=== PATIENT | female | born 1975 | race Caucasian/White ===

== ENCOUNTER 2023-04-09 17:34 | Emergency (ER) | payer MEDICARE, MEDICAID, SELFPAY ==
[2023-04-09 17:35] VITALS: BP 151/115; PULSE 85; RESP 16; TEMP 36.4; O2SAT 95; BMI 43.9
[2023-04-09 19:44] VITALS: BP 143/68; PULSE 93; RESP 18; O2SAT 98
[2023-04-09 19:51] LABS: Color, Urine Yellow (Yellow); Glucose, Dipstick Normal (Normal); Ketone-Dipstick 5 mg/dl (Negative); Leukocyte Esterase-Dipstick Negative /ul (Negative); Nitrite-Dipstick Negative (Negative); Occult Blood-Urine 25 /ul (Negative); Protein-Dipstick Negative (Negative); Specific Gravity, Urine 1.025 (1.002-1.030); Urine Bilirubin Dipstick Negative (Negative); Urine Clarity Clear (Clear); Urine Urobilinogen Normal (Normal)
[2023-04-09 19:57] LABS: Bacteria RARE /hpf (None Seen); Mucous, Urine RARE /hpf (<or=2+); Red Blood Cells-Urine 0-5 SEEN /hpf (0-5); Squamous Epithelial Cells - UA 0-5 SEEN /hpf (5-10); White Blood Cells 0-5 SEEN /hpf (0-5)
[2023-04-09 19:59] LABS: Bedside Glucose 104 mg/dL (74-106)
[2023-04-09 20:00] VITALS: BP 129/71; PULSE 92; RESP 18; TEMP 36.6; O2SAT 95
--- NOTE | 2023-04-09 20:00 | EDS_ITS ---
HPI History of Present Illness Chief Complaint: General Illness Detail of Chief Complaint: Frequency and concern for prolapsed uterus Informant: patient Onset/Context/Timing Onset: Days Context: Sudden Onset Timing: Intermittent Quality: Things sticking out of my vagina Location: Vagina Current Severity: Unknown Maximum Severity: Protrudes when she is using the restroom Worsened by: Using the restroom Relieved by: Not applicable Associated Symptoms Associated Symptoms: Frequency Narrative Narrative: Patient is a 48-year-old female who presents with concerns she has a prolapsed uterus. She has a history of rectocele. She is also concerned she may have a cystocele. She states she is recently been dating someone for the past couple of months. She is sexually active. She denies signs or symptoms of . There is a strong family history diabetes. She endorses polyuria and polydipsia. She denies fever, chills night sweats. She denies abdominal pain, nausea, vomit diarrhea. Denies constipation. She denies history of STI. She denies history of endometriosis or ovarian cyst. She is not complaining of pain. Prior similar symptoms: Yes (Rectocele) Recent Illness/Hospitalization: No PFSH PFSH Medical History no medical history no medical history Allergy/AdvReac Type Severity Reaction Status Date / Time metformin Allergy NEEDS Verified 04/09/23 17:35 FOLLOW-UP Surgical History no surgical history no surgical history Social History (Updated 04/09/23 @ 20:[address] Williams Cage MD) Smoking Status: Never smoker details: Social substance use type: does not use ROS ROS ED Constitutional Constitutional ED: Denies chills, fever(s), subjective or sweats Eyes Eyes: Denies blurry vision, change in vision or diplopia ENT ENT ED: Denies ear pain, rhinorrhea or sore throat Gastrointestinal Gastrointestinal: Denies abdominal pain, constipation, diarrhea, melena, nausea or vomiting Genitourinary Genitourinary ED: Reports urinary frequency; Denies dysuria or hematuria Musculoskeletal Musculoskeletal: Denies arthralgias, back pain, myalgias or neck pain Integumentary Denies rash Neurologic Neurologic: Denies headache(s) Psychiatric Psychiatric: Reports anxiety Endocrine Endocrinology: Reports polydipsia and polyuria; Denies cold intolerance or heat intolerance Hematologic/Lymphatic Hematologic/Lymphatic: Reports systems reviewed and no addt'l complaints, except as documented EXAM Physical Exam Const Vital Signs: 04/09/23 17:35 04/09/23 17:34 04/09/23 19:44 Temperature 97.6 F L Temperature Source Temporal Pulse Rate 85 93 Respiratory Rate 16 18 Respiratory Effort Normal Respiratory Pattern Normal Blood Pressure 151/115 H 143/68 H Blood Pressure Mean 127 93 Pulse Ox 95 98 Oxygen Delivery Method Room Air Room Air Positive well nourished and well developed General Appearance ED: well developed and NAD; Negative for pallor HEENT Reports moist mucous membranes HEENT Narrative: Head is atraumatic and normocephalic. Ears normal. Nares patent. Posterior pharynx is normal. Eyes PERRL and EOMs intact bilaterally General Eye ED: Negative for pale conjunctiva or scleral icterus Neck no lymphadenopathy, supple and no JVD Chest Wall inspection of chest normal and palpation of chest normal Resp normal respiratory effort Cardio regular rate, regular rhythm, S1 normal heart sound, S2 normal heart sound and no murmurs GI normal to inspection, nondistended, normoactive bowel sounds, non-tender, non- distended and no masses; Negative for hepatosplenomegaly Narrative: External genitalia is remarkable for condyloma acuminata. Vaginal mucosa appears normal. Cervical mucosa is normal. There is no discharge or bleeding. There is evidence of a rectocele. There is no evidence of a cystocele. There is no evidence of prolapse uterus. Back/Spine no CVA tenderness Extremity normal to inspection General Extremety ED: Negative for edema or tenderness General Extremity: Negative for edema Neuro oriented x3, CN's II-XII intact bilaterally and no sensory deficits noted Sensorium / Orientation: alert Psych mental status grossly normal Skin no rashes or lesions noted, no wounds and skin turgor normal General Skin Exam: Negative for jaundice or pallor MDM MDM MDM Narrative Medical decision making narrative: Differential diagnosis is rectocele, cystocele, prolapsed uterus. Will assess for diabetes since her strong family history and she is reporting increased urination with polyuria polydipsia. Patient has evidence of condyloma acuminata. She is to follow-up with her [facility] Dr. Stephanie Serrato. She also needs to follow-up with her regarding the rectocele. There is no evidence of a prolapsed uterus or cystocele. Lab Data Attestation: I reviewed the patient's lab results. Lab results narrative: UA reveals no Insa infection and glucose is 104. Labs: Laboratory Results - last 24 hr 04/09/23 04/09/23 19:40 19:41 Urine Color Yellow Urine Clarity Clear Urine pH 5.0 Ur Specific [employer] [place] 1.025 Urine Protein Negative Urine Glucose (UA) Normal Urine Ketones 5 H Urine Occult Blood 25 H Urine Nitrite Negative Urine Bilirubin Negative Urine Urobilinogen Normal Ur Leukocyte Esterase Negative Urine RBC 0-5 SEEN Urine WBC 0-5 SEEN Ur Squamous Epith Cells 0-5 SEEN Urine Bacteria RARE Urine Mucus RARE POC Glucose 104 Discharge Plan Triage Chief Complaint: General Illness ED Provider: Williams Cage Dx/Rx/DC Orders Clinical Impression: Rectocele, Frequency of micturition, Condyloma acuminatum Instructions: POP Surg Rectocele Enterocele, ED Genital Warts Primary Care Provider: Yamileth Estevez NP Referrals: Stephanie Serrato NP, [facility] [Non-Staff] - 1 Week Yamileth Estevez NP, [facility] [Primary Care Provider] - Disposition Disposition: Home, Self Care
== END 2023-04-09 20:13 | disposition home or self-care (01) ==
PROVIDERS: Emergency Provider Emergency Medicine; PCP Nurse Practitioner Family; Visit Provider Emergency Medicine
DX: A63.0 Anogenital (venereal) warts (principal); R35.0 Frequency of micturition; F41.9 Anxiety disorder, unspecified; R63.1 Polydipsia; N81.6 Rectocele
CPT/HCPCS: 81001; 82962; 99282

== ENCOUNTER 2023-08-09 11:31 | Emergency (ER) | payer MEDICARE, MEDICAID, SELFPAY ==
[2023-08-09 11:32] VITALS: BP 142/103; PULSE 103; PULSE 94; RESP 17; RESP 21; TEMP 35.8; O2SAT 94; O2SAT 95; BMI 44.1
--- NOTE | 2023-08-09 12:19 | EDS_ITS ---
HPI History of Present Illness Chief Complaint: Chest Pain Informant: patient and EMS Narrative Narrative: Patient states she was at rest with a friend today sitting outside at a table when she started only started having discomfort in her left chest without radia tion. She states it is kind of a dull ache, it is nonpleuritic, it is not associated with any other symptoms but she was concerned because she has never had this before and she called 911 right away to come to the ER. EMS is EKG was unremarkable. She does not have any history of heart problems except for aortic stenosis, she states she has asthma but does not feel like this is wheezing/asthma. She denies any history of DVT or PE, recent immobilization, long travel, hospitalization, or surgery. She is a smoker but does not take female hormone supplementation for any reason. PE Risk Factors: Negative for Recent Travel/Surgery, Recent Immobilization, Prior DVT or PE, Cancer or OCP + Smoking + >/=35 PFSH PFSH Medical History (Updated 08/09/23 @ 15:[address] Dom Hall MD) Asthma Hypertension Migraine Bulimia Lesion of spleen Endometriosis Heart murmur Aortic stenosis Acid reflux Depression Fibromyalgia Home Medications ?Medication ?Instructions ?Recorded ?Last Taken ?Type albuterol sulfate 90 mcg/actuation 2 puff inhalation Q4H PRN PRN 08/09/23 Unknown History aerosol inhaler wheezing cholecalciferol (vitamin D3) 25 50 mcg PO DAILY 08/09/23 Unknown History mcg (1,000 unit) tablet (Vitamin D3) clobetasol 0.05 % topical ointment 1 applic topical BID 08/09/23 Unknown History duloxetine 60 mg capsule,delayed 60 mg PO DAILY 08/09/23 Unknown History release (Cymbalta) esomeprazole magnesium 40 mg 40 mg PO BID 08/09/23 Unknown History capsule,delayed release (Nexium) fluoxetine 40 mg capsule 80 mg PO DAILY 08/09/23 Unknown History fluticasone furoate 200 1 inh inhalation DAILY 08/09/23 Unknown History mcg-vilanterol 25 mcg/dose inhalation powder hydroxyzine pamoate 25 mg capsule 25 mg PO TID PRN PRN anxiety 08/09/23 Unknown History lisinopril 10 mg tablet 10 mg PO DAILY 08/09/23 Unknown History loratadine 10 mg tablet 10 mg PO DAILY 08/09/23 Unknown History (Allerclear) meloxicam 15 mg tablet 15 mg PO DAILY 08/09/23 Unknown History pregabalin 75 mg capsule 75 mg PO BID 08/09/23 Unknown History propranolol 20 mg tablet 20 mg PO BID 08/09/23 Unknown History pseudoephedrine HCl 120 mg 120 mg PO BID 08/09/23 Unknown History tablet,extended release terbinafine HCl 250 mg tablet 250 mg PO DAILY 08/09/23 Unknown History Allergy/AdvReac Type Severity Reaction Status Date / Time metformin Allergy NEEDS Verified 08/09/23 11:32 FOLLOW-UP Social History Smoking Status: Current every day smoker tobacco type: cigarettes details: Social substance use type: does not use ROS ROS ED Constitutional Constitutional ED: Denies chills or fever(s) Eyes Eyes: Denies change in vision or diplopia ENT ENT ED: Denies rhinorrhea or sore throat Cardiovascular Cardiovascular: Reports as per HPI and chest pain; Denies palpitations Respiratory/Chest Respiratory/Chest: Reports other Details: dyspnea no worse than usual w/ this discomfort ; Denies cough Gastrointestinal Gastrointestinal: Denies abdominal pain, diarrhea, nausea or vomiting Genitourinary Genitourinary ED: Denies dysuria or hematuria Musculoskeletal Musculoskeletal: Denies back pain or neck pain Integumentary Denies abscess or rash Neurologic Neurologic: Denies headache(s), paresthesias or weakness Psychiatric Psychiatric: Denies suicidal thoughts EXAM Physical Exam Const Vital Signs: 08/09/23 11:32 08/09/23 11:32 08/09/23 11:32 Temperature 96.5 F L Temperature Source Temporal Pulse Rate 103 H 94 Respiratory Rate 17 21 H Respiratory Effort Short of Breath Blood Pressure 142/103 H 142/103 H Blood Pressure Mean 116 116 Pulse Ox 94 95 Oxygen Delivery Method Room Air Room Air 08/09/23 12:31 08/09/23 13:00 08/09/23 14:00 Temperature Temperature Source Pulse Rate 102 H 103 H 100 Respiratory Rate 21 H 23 H 25 H Respiratory Effort Blood Pressure 145/100 H 143/95 H 145/114 H Blood Pressure Mean 115 111 124 Pulse Ox 96 97 97 Oxygen Delivery Method Room Air Room Air 08/09/23 15:00 Temperature Temperature Source Pulse Rate 100 Respiratory Rate 18 Respiratory Effort Blood Pressure 139/102 H Blood Pressure Mean 114 Pulse Ox 97 Oxygen Delivery Method Room Air Positive well nourished, well developed and obese General Appearance ED: well developed and NAD Nutritional Appearance: obese HEENT Reports moist mucous membranes normocephalic and atraumatic Eyes PERRL and EOMs intact bilaterally Neck full ROM and supple Chest Wall inspection of chest normal and palpation of chest normal Resp normal respiratory effort and clear to auscultation bilaterally Cardio regular rate and regular rhythm Heart Sounds: murmur systolic III/ crescendo-decrescendo (harsh) left sternal border Peripheral Pulses: pulses 2+ throughout GI non-tender and non-distended Auscultation: normoactive bowel sounds Palpation: soft Back/Spine no CVA tenderness General Back: other FROM Extremity normal to inspection General Extremety ED: Negative for edema, pulses abnormal or tenderness General Extremity: Negative for edema or pulses abnormal Neuro oriented x3, CN's II-XII intact bilaterally and no sensory deficits noted Sensorium / Orientation: awake and alert Motor Exam: strength 5/5 throughout Skin no rashes or lesions noted and no wounds Heart Score History: Slightly/Non-Suspicious ECG: Normal Age: >45 - <65 years Risk Factors: 1 or 2 Risk Factors Troponin: </= Normal Limit Score: 2 MDM MDM MDM Narrative Medical decision making narrative: Patient takes a deep breath and does not have significant pain but when she coughs it hurts worse. Therefore in addition to the regular usual cardiac workup that shows initial negative cardiac enzymes, I added a D-dimer, that is negative, she had a mild resting tachycardia prior to that. That rules out pulmonary embolus. Initially GI cocktail and Levsin was given, to see if that would help if this was esophagus spasm or reflux, since she states she has a history of reflux that is significant, did not help any, so then she was given Toradol and we repeated her troponin. It is the same number for a delta of 0, she has a low heart score, I do not think she needs to be admitted or have further emergent provocative testing. Her EKG is normal. Chest x-ray 2 views of mitral rotation are normal as well showing no pneumothorax. Patient wants to go home I am fine with that, she complained of a lot of urinary issues and wanting a catheter. We BladderScan her and her only 24 cc so I do not recommend a catheter. She said that she has had catheters in the past and has chronic bladder symptoms and sees Dr. Santos I recommend following back up with her, we did urinalysis shows no signs of acute infection. Lab Data Attestation: I reviewed the patient's lab results. Labs: Laboratory Results - last 24 hr 08/09/23 08/09/23 08/09/23 11:14 11:19 13:28 WBC 10.9 RBC 4.58 Hgb 13.8 Hct 42.0 MCV 91.7 MCH 30.1 MCHC 32.9 RDW Std Deviation 45.0 H RDW Coeff of Roger 13.4 Plt Count 494 H MPV 9.9 Immature Gran % (Auto) 0.500 Neut % (Auto) 67.5 Lymph % (Auto) 25.3 Mckenzie % (Auto) 5.3 Eos % (Auto) 1.0 Baso % (Auto) 0.4 Absolute Neuts (auto) 7.4 Absolute Lymphs (auto) 2.77 Nucleated RBC % 0 D-Dimer Quant (PE/DVT) 0.42 Sodium 134 L Potassium 3.4 L Chloride 102 Carbon Dioxide 24.0 Anion Gap 8 BUN 13 Creatinine 0.88 Estim Creat Clear Calc 100.15 Est GFR (MDRD) Af Amer 88 Est GFR (MDRD) Non-Af 73 BUN/Creatinine Ratio 14.7 Glucose 118 H Calcium 8.9 Troponin I High Sens 14 Urine Color Yellow Urine Clarity Sl. Cloudy Urine pH 6.5 Ur Specific [place] 1.010 Urine Protein Negative Urine Glucose (UA) Normal Urine Ketones Negative Urine Occult Blood 25 H Urine Nitrite Negative Urine Bilirubin Negative Urine Urobilinogen Normal Ur Leukocyte Esterase Negative Urine RBC 0-5 SEEN Urine WBC 0 SEEN Ur Squamous Epith Cells 0-5 SEEN Urine Bacteria 0 SEEN Urine Mucus 0 SEEN 08/09/23 14:35 WBC RBC Hgb Hct MCV MCH MCHC RDW Std Deviation RDW Coeff of Roger Plt Count MPV Immature Gran % (Auto) Neut % (Auto) Lymph % (Auto) Mckenzie % (Auto) Eos % (Auto) Baso % (Auto) Absolute Neuts (auto) Absolute Lymphs (auto) Nucleated RBC % D-Dimer Quant (PE/DVT) Sodium Potassium Chloride Carbon Dioxide Anion Gap BUN Creatinine Estim Creat Clear Calc Est GFR (MDRD) Af Amer Est GFR (MDRD) Non-Af BUN/Creatinine Ratio Glucose Calcium Troponin I High Sens 14 Urine Color Urine Clarity Urine pH Ur Specific [place] Urine Protein Urine Glucose (UA) Urine Ketones Urine Occult Blood Urine Nitrite Urine Bilirubin Urine Urobilinogen Ur Leukocyte Esterase Urine RBC Urine WBC Ur Squamous Epith Cells Urine Bacteria Urine Mucus Radiography Diagnostic Testing: Clinical Impression(s) from Imaging Studies Chest X-Ray 08/09/23 12:35 IMPRESSION: Hyperinflation. The lungs are clear. Electronically Signed: Jarod Kim MD at 12:50 EDT , Rhythm Strip Rhythm Strip: Sinus Rhythm Rate: 95 Ectopy: None EKG Initial EKG: Attestation: I personally reviewed and interpreted this EKG as follows: Interpretation: Sinus Rhythm and No Acute Injury Pattern Discharge Plan Triage Chief Complaint: Chest Pain ED Provider: Dom Hall Dx/Rx/DC Orders Clinical Impression: Left-sided chest pain, Urinary urgency Instructions: ED Chest Pain, Noncardiac Prescriptions: No Action fluoxetine 40 mg capsule 80 mg PO DAILY lisinopril 10 mg tablet 10 mg PO DAILY propranolol 20 mg tablet 20 mg PO BID pregabalin 75 mg capsule 75 mg PO BID duloxetine [Cymbalta] 60 mg capsule,delayed release(DR/EC) 60 mg PO DAILY esomeprazole magnesium [Nexium] 40 mg capsule,delayed release(DR/EC) 40 mg PO BID clobetasol 0.05 % ointment 1 applic topical BID albuterol sulfate 90 mcg/actuation HFA aerosol inhaler 2 puff inhalation Q4H PRN PRN (Reason: wheezing) cholecalciferol (vitamin D3) [Vitamin D3] 25 mcg (1,000 unit) tablet 50 mcg PO DAILY loratadine [Allerclear] 10 mg tablet 10 mg PO DAILY meloxicam 15 mg tablet 15 mg PO DAILY pseudoephedrine HCl 120 mg tablet extended release 120 mg PO BID terbinafine HCl 250 mg tablet 250 mg PO DAILY hydroxyzine pamoate 25 mg capsule 25 mg PO TID PRN PRN (Reason: anxiety) fluticasone furoate-vilanterol 200-25 mcg/dose blister with device 1 inh inhalation DAILY Primary Care Provider: Yamileth Estevez NP Referrals: Rahel Santos MD [Med Staff - Active Staff] - Yamileth Estevez NP, [facility] [Primary Care Provider] - 3-5 Days if not improving Print Language: Faroese Disposition Disposition: Home, Self Care
--- NOTE | 2023-08-09 12:30 | EKG12_ITS ---
Test Reason : CHEST PAIN Blood Pressure : / mmHG Vent. Rate : 094 BPM Atrial Rate : 094 BPM P-R Int : 144 ms QRS Dur : 086 ms QT Int : 386 ms P-R-T Axes : 046 011 071 degrees QTc Int : 482 ms Normal sinus rhythm Abnormal ECG Confirmed by YOSSI HUTCHINSON, GÉNEISS ([id number]), legal editor VERÓNICA LARIOS ([id number]) on 08/13/2023 1:31:37 PM Referred By: Confirmed By:GÉNESIS SY MD
[2023-08-09 12:31] VITALS: BP 145/100; PULSE 102; RESP 21; O2SAT 96
--- NOTE | 2023-08-09 12:35 | RAD_ITS ---
STUDY: X-RAY CHEST REASON FOR EXAM: Female, 48 years old. L chest pain TECHNIQUE: PA and lateral views of the chest. COMPARISON: None. FINDINGS: EKG electrodes are seen. Hyperinflation. The lungs are clear. There is no demonstrated pleural abnormality. Normal size heart. Normal mediastinum and maxwell. Normal visualized pulmonary arteries. Normal visualized aortic arch and descending thoracic aorta. Normal visualized thoracic spine. Normal visualized ribs, clavicles, and shoulders. There is no demonstrated abnormality of the visualized soft tissue structures of the upper abdomen. RAD/Chest PA and Lateral IMPRESSION: Hyperinflation. The lungs are clear. Electronically Signed: Jarod Kim MD at 12:50 EDT ,
[2023-08-09 12:41] LABS: Absolute Lymphocyte Count 2.77 X10^3/uL (0.83-4.51); Absolute Neutrophil Count 7.4 X10^3/uL (2.0-7.7); Basophil# 0.04 X10^3/uL; Basophil% 0.4 % (0-1); Eosinophil# 0.11 X10^3/uL; Hemoglobin 13.8 g/dL (12.0-15.0); Lymphocyte # 2.77 X10^3/ul (0.83-4.51); Lymphocyte % 25.3 % (19-41); Mean Corp Hgb Conc 32.9 g/dL (32-36); Mean Corpuscular Hgb 30.1 pg (27.0-32.0); Mean Corpuscular Volume 91.7 fL (81-99); Mean Platelet Vol. 9.9 fl (6.2-12.0); Monocyte# 0.58 X10^3/uL; Monocyte% 5.3 % (0-10); NRBC Flagged by Analyzer 0 % (0-5); Neutrophil # 7.37 X10^3/uL (2.7-7.7); Neutrophil % 67.5 % (47-70); Platelet Count 494 K/mm3 (150-450); RBC Distribution Width CV 13.4 % (11.6-14.6); Red Blood Count 4.58 M/mm3 (4.2-5.4); White Blood Count 10.9 K/mm3 (4.4-11.0)
[2023-08-09 12:57] LABS: Anion Gap 8 (5-15); BUN 13 mg/dL (7-18); BUN/Creat Ratio 14.7 RATIO (10-20); Calcium,Total 8.9 mg/dL (8.5-10.1); Chloride 102 mmol/L (98-107); Creatinine, Serum 0.88 mg/dL (0.55-1.02); EST Glomerular Filtration Rate 73 mL/min (>60); Est Glom Filt Rate - Afr Amer 88 mL/min (>60); Estimated Creatinine Clearance 100.15 ml/min; Glucose 118 mg/dL (74-106); Potassium 3.4 mmol/L (3.5-5.1); Sodium Level 134 mmol/L (136-145); Troponin-I HS (w/2H Reflex) 14 pg/mL (3.0-54.0)
[2023-08-09 13:00] VITALS: BP 143/95; PULSE 103; RESP 23; O2SAT 97
[2023-08-09] MEDS: Mag Hydrox/Al Hydrox/Simeth 30 ML UDC PO (13:02)
[2023-08-09] MEDS: Lidocaine 2% Viscous15 ML UDC 15 ML PO (13:02)
[2023-08-09] MEDS: Hyoscyamine Sulfate 0.125 MG Tablet 0.25 MG SL (13:02)
[2023-08-09 13:33] LABS: Bacteria 0 SEEN /hpf (None Seen); Mucous, Urine 0 SEEN /hpf (<or=2+); White Blood Cells 0 SEEN /hpf (0-5)
[2023-08-09 13:34] LABS: Color, Urine Yellow (Yellow); Glucose, Dipstick Normal (Normal); Ketone-Dipstick Negative (Negative); Leukocyte Esterase-Dipstick Negative /ul (Negative); Nitrite-Dipstick Negative (Negative); Occult Blood-Urine 25 /ul (Negative); Protein-Dipstick Negative (Negative); Urine Bilirubin Dipstick Negative (Negative); Urine Clarity Sl. Cloudy (Clear); Urine Urobilinogen Normal (Normal); Urine pH 6.5 (5.0 - 8.0)
[2023-08-09 13:40] LABS: Red Blood Cells-Urine 0-5 SEEN /hpf (0-5); Squamous Epithelial Cells - UA 0-5 SEEN /hpf (5-10)
[2023-08-09 14:00] VITALS: BP 145/114; PULSE 100; RESP 25; O2SAT 97
[2023-08-09 14:13] LABS: D-Dimer Quantitative (DVT/PE) 0.42 FEU/ug/m (0.27-0.49)
[2023-08-09 14:36] LABS: Reflex Troponin-HS? (from REC) Y
[2023-08-09] MEDS: Ketorolac 15 MG/ML Vial IV (14:56)
[2023-08-09 15:00] VITALS: BP 139/102; PULSE 100; RESP 18; O2SAT 97
[2023-08-09 15:06] LABS: Troponin-I HS 14 pg/mL (3.0-54.0)
[2023-08-09 15:32] VITALS: BP 135/100; PULSE 84; RESP 16; TEMP 36.3; O2SAT 98
== END 2023-08-09 15:38 | disposition home or self-care (01) ==
PROVIDERS: Emergency Provider Emergency Medicine; PCP Nurse Practitioner Family; Visit Provider Emergency Medicine
DX: R07.9 Chest pain, unspecified (principal); R39.15 Urgency of urination; F17.210 Nicotine dependence, cigarettes, uncomplicated; I10 Essential (primary) hypertension; J45.909 Unspecified asthma, uncomplicated; F32.A Depression, unspecified; K21.9 Gastro-esophageal reflux disease without esophagitis; Z79.899 Other long term (current) drug therapy; Z79.51 Long term (current) use of inhaled steroids
CPT/HCPCS: 71046; 80048; 81001; 84484; 85025; 85379; 93005; 96374; 99285

== ENCOUNTER 2024-06-19 18:52 | Emergency (ER) | payer MEDICARE, MEDICAID, SELFPAY ==
[2024-06-19 18:53] VITALS: BP 178/112; PULSE 80; RESP 18; TEMP 36.9; O2SAT 95; BMI 46.3
--- NOTE | 2024-06-19 18:58 | EKG12_ITS ---
Test Reason : DYSRHYTHMIA Blood Pressure : */* mmHG Vent. Rate : 84 BPM Atrial Rate : 84 BPM P-R Int : 146 ms QRS Dur : 90 ms QT Int : 392 ms P-R-T Axes : 45 27 76 degrees QTcB Int : 463 ms Normal sinus rhythm Normal ECG Confirmed by GÉNESIS SY MD [id number]), editor publications ZENIA KEANE ([id number]) on 06/20/2024 8:20:12 AM Referred By: Emil Quan Confirmed By: GÉNESIS SY MD
[2024-06-19 19:33] VITALS: O2SAT 98
--- NOTE | 2024-06-19 19:33 | RAD_ITS ---
PROCEDURE: CHEST PA AND LATERAL 06/19/2024 REASON FOR EXAM: CHEST PAIN TECHNIQUE: Frontal and lateral views of the chest. COMPARISON: 08/09/2019 FINDINGS: Hardware: None Heart: Heart size is mildly enlarged. Mediastinum: The mediastinal contour is stable. Lungs: Mild bibasilar atelectasis. No focal consolidation. No pneumothorax. No pleural effusion. Mild interstitial thickening Bones: The bones are unremarkable. RAD/Chest PA and Lateral IMPRESSION: Findings suggestive of vascular congestion. [facility]
[2024-06-19 19:48] LABS: Absolute Lymphocyte Count 2.81 X10^3/uL (0.83-4.51); Absolute Neutrophil Count 10.4 X10^3/uL (2.0-7.7); Basophil# 0.05 X10^3/uL; Basophil% 0.4 % (0-1); Eosinophil# 0.17 X10^3/uL; Eosinophils% 1.2 % (0-5); Hematocrit 39.7 % (37-47); Hemoglobin 13.3 g/dL (12.0-15.0); Lymphocyte # 2.81 X10^3/ul (0.83-4.51); Lymphocyte % 19.7 % (19-41); Mean Corp Hgb Conc 33.5 g/dL (32-36); Mean Corpuscular Hgb 30.3 pg (27.0-32.0); Mean Corpuscular Volume 90.4 fL (81-99); Mean Platelet Vol. 9.7 fl (6.2-12.0); Monocyte% 4.9 % (0-10); NRBC Flagged by Analyzer 0 % (0-5); Neutrophil % 73.1 % (47-70); Platelet Count 487 K/mm3 (150-450); RBC Distribution Width CV 13.5 % (11.6-14.6); RBC Distribution Width SD 44.5 fl (35.1-43.9); Red Blood Count 4.39 M/mm3 (4.2-5.4); White Blood Count 14.2 K/mm3 (4.4-11.0)
--- NOTE | 2024-06-19 19:51 | ED.VIS.CHEST ---
HPI <BILLIE Edgar - Last Filed: 06/19/24 22:11> History of Present Illness Chief Complaint: Chest Pain Narrative Narrative: Patient presenting today with pain/tightness below her breasts bilaterally that has been ongoing over the last several days. She reports a chronic productive cough due to her smoking history and history of asthma. She reports that she has been taking doxycycline over the last week or so due to a URI. She reports that she has been treated with multiple different antibiotics over the last several months for URIs. She takes Lasix as needed for bilateral lower extremity edema. Over the past 3 days she has been taking 40 mg Lasix daily. She has had minimal improvement in her leg edema. She reports that she recently had a echocardiogram, she denies being diagnosed with CHF. She has a PMH of HTN, tobacco abuse, asthma, depression. PE Risk Factors: Negative for Recent Travel/Surgery, Recent Immobilization, Prior DVT or PE or Cancer PFSH <BILLIE Edgar - Last Filed: 06/19/24 22:11> [facility] Medical History Asthma Hypertension Migraine Bulimia Lesion of spleen Endometriosis Heart murmur Aortic stenosis Acid reflux Depression Fibromyalgia Home Medications ?Medication ?Instructions ?Recorded ?Last Taken ?Type albuterol sulfate 90 mcg/actuation 2 puff inhalation Q4H PRN PRN 08/09/23 Unknown History aerosol inhaler wheezing cholecalciferol (vitamin D3) 25 50 mcg PO DAILY 08/09/23 Unknown History mcg (1,000 unit) tablet (Vitamin D3) clobetasol 0.05 % topical ointment 1 applic topical BID 08/09/23 Unknown History duloxetine 60 mg capsule,delayed 60 mg PO DAILY 08/09/23 Unknown History release (Cymbalta) esomeprazole magnesium 40 mg 40 mg PO BID 08/09/23 Unknown History capsule,delayed release (Nexium) fluoxetine 40 mg capsule 80 mg PO DAILY 08/09/23 Unknown History fluticasone furoate 200 1 inh inhalation DAILY 08/09/23 Unknown History mcg-vilanterol 25 mcg/dose inhalation powder hydroxyzine pamoate 25 mg capsule 25 mg PO TID PRN PRN anxiety 08/09/23 Unknown History lisinopril 10 mg tablet 10 mg PO DAILY 08/09/23 Unknown History loratadine 10 mg tablet 10 mg PO DAILY 08/09/23 Unknown History (Dewayne) meloxicam 15 mg tablet 15 mg PO DAILY 08/09/23 Unknown History pregabalin 75 mg capsule 75 mg PO BID 08/09/23 Unknown History propranolol 20 mg tablet 20 mg PO BID 08/09/23 Unknown History pseudoephedrine HCl 120 mg 120 mg PO BID 08/09/23 Unknown History tablet,extended release terbinafine HCl 250 mg tablet 250 mg PO DAILY 08/09/23 Unknown History prednisone 20 mg tablet 40 mg (2 x 20 mg) PO DAILY 5 days 06/19/24 Unknown Rx #10 tabs Allergy/AdvReac Type Severity Reaction Status Date / Time metformin AdvReac Severe Other Verified 06/19/24 18:54 Social History housing: house Smoking Status: Current every day smoker tobacco type: cigarettes details: Social substance use type: does not use ROS <BILLIE Edgar - Last Filed: 06/19/24 22:11> ROS ED Constitutional Constitutional ED: Denies chills or fever(s) Cardiovascular Cardiovascular: Reports chest pain Respiratory/Chest Respiratory/Chest: Reports cough, dyspnea and dyspnea on exertion; Denies wheezing Gastrointestinal Gastrointestinal: Denies abdominal pain, nausea or vomiting Musculoskeletal Musculoskeletal: Denies arthralgias or myalgias Integumentary Denies rash Neurologic Neurologic: Denies weakness EXAM <BILLIE Edgar - Last Filed: 06/19/24 22:11> Physical Exam Const Vital Signs: 06/19/24 18:53 06/19/24 19:33 06/19/24 19:33 Temperature 98.5 F Temperature Source Oral Pulse Rate 80 Respiratory Rate 18 Respiratory Effort Normal Non-Labored Respiratory Depth Respiratory Pattern Blood Pressure 178/112 H Blood Pressure Mean 134 Pulse Ox 95 98 Oxygen Delivery Method Room Air Room Air 06/19/24 19:33 06/19/24 19:53 06/19/24 20:00 Temperature Temperature Source Pulse Rate 84 85 Respiratory Rate 12 13 Respiratory Effort Normal Non-Labored Respiratory Depth Normal Respiratory Pattern Normal Blood Pressure 154/107 H 150/100 H Blood Pressure Mean 122 116 Pulse Ox 98 96 Oxygen Delivery Method Room Air 06/19/24 21:00 06/19/24 22:36 Temperature 98 F Temperature Source Pulse Rate 68 Respiratory Rate 15 Respiratory Effort Respiratory Depth Respiratory Pattern Blood Pressure 157/89 H 150/70 H Blood Pressure Mean 111 96 Pulse Ox 100 Oxygen Delivery Method Positive well nourished, well developed and no apparent distress General Appearance ED: well developed HEENT Reports normocephalic and head/scalp atraumatic Mouth ED: Yes moist mucous membranes normal Eyes PERRL and EOMs intact bilaterally Neck full ROM and supple Chest Wall inspection of chest normal Resp normal respiratory effort and clear to auscultation bilaterally Cardio regular rate and regular rhythm GI soft to palpation, non-tender, non-distended and no masses Back/Spine normal ROM and normal to inspection Extremity normal to inspection and full ROM Extremity Narrative: Bilateral lower extremity nonpitting edema to the feet and ankles Neuro oriented x3, CN's II-XII intact bilaterally, moves all extremities, no focal motor deficits and no sensory deficits noted Sensorium / Orientation: awake and alert Psych mental status grossly normal and thought process normal Skin no rashes or lesions noted and no wounds <Dr. Emil Quan DO - Last Filed: 06/20/24 02:04> Physical Exam Const Vital Signs: 06/19/24 18:53 06/19/24 19:33 06/19/24 19:33 Temperature 98.5 F Temperature Source Oral Pulse Rate 80 Respiratory Rate 18 Respiratory Effort Normal Non-Labored Respiratory Depth Respiratory Pattern Blood Pressure 178/112 H Blood Pressure Mean 134 Pulse Ox 95 98 Oxygen Delivery Method Room Air Room Air 06/19/24 19:33 06/19/24 19:53 06/19/24 20:00 Temperature Temperature Source Pulse Rate 84 85 Respiratory Rate 12 13 Respiratory Effort Normal Non-Labored Respiratory Depth Normal Respiratory Pattern Normal Blood Pressure 154/107 H 150/100 H Blood Pressure Mean 122 116 Pulse Ox 98 96 Oxygen Delivery Method Room Air 06/19/24 21:00 06/19/24 22:36 Temperature 98 F Temperature Source Pulse Rate 68 Respiratory Rate 15 Respiratory Effort Respiratory Depth Respiratory Pattern Blood Pressure 157/89 H 150/70 H Blood Pressure Mean 111 96 Pulse Ox 100 Oxygen Delivery Method MDM <Merle Olson PA - Last Filed: 06/19/24 22:11> [facility] MDM Narrative Medical decision making narrative: Patient presenting today due to concerns for pain across her lower chest, mild dyspnea with exertion, and lower extremity edema that has been ongoing for days. She has a chronic cough due to her smoking history of asthma. She will be given albuterol and DuoNeb breathing treatments. Cardiac labs will be obtained. CBC shows a leukocytosis at 14.2, creatinine mildly elevated at 1.26, this is slightly increased from previous labs when reviewing her records on her MyChart when her creatinine was 0.73 in March, initial troponin is 8, delta pending. BNP WNL, D-dimer WNL. Low suspicion for PE. Chest x-ray shows findings suggestive of vascular congestion. I also reviewed her outpatient echocardiogram from 12/2023, this showed normal left ventricular systolic function, moderate left ventricular hypertrophy. She did request to be given a course of prednisone, she reports that this will help with her chest tightness and dyspnea due to her cough and asthma history. She has been on doxycycline, I do not feel additional antibiotics are indicated, chest x-ray did not show evidence of infiltrate. Disposition pending. Lab Data Attestation: I reviewed the patient's lab results. Labs: Laboratory Results - last 24 hr 06/19/24 06/19/24 06/19/24 19:09 19:29 21:20 WBC 14.2 H RBC 4.39 Hgb 13.3 Hct 39.7 MCV 90.4 MCH 30.3 MCHC 33.5 RDW Std Deviation 44.5 H RDW Coeff of Roger 13.5 Plt Count 487 H MPV 9.7 Immature Gran % (Auto) 0.700 Neut % (Auto) 73.1 H Lymph % (Auto) 19.7 [place] % (Auto) 4.9 Eos % (Auto) 1.2 Baso % (Auto) 0.4 Absolute Neuts (auto) 10.4 H Absolute Lymphs (auto) 2.81 Nucleated RBC % 0 D-Dimer Quant (PE/DVT) 0.40 Sodium 136 Potassium 5.0 Chloride 102 Carbon Dioxide 21.6 Anion Gap 12 BUN 18 Creatinine 1.26 H Estim Creat Clear Calc 71.28 Est GFR (MDRD) Non-Af 53 L BUN/Creatinine Ratio 14.2 Glucose 111 H Calcium 8.9 Troponin T High Sens 8 Troponin T Hi Sens 2 Hr 10 NT pro BNP II 331 Radiography X-Ray: Read by ED Physician Diagnostic Testing: Clinical Impression(s) from Imaging Studies Chest X-Ray 06/19/24 19:33 IMPRESSION: Findings suggestive of vascular congestion. Reading Location: [facility] EKG Initial EKG: Comments: 84 bpm, normal sinus rhythm, no ST elevation, interpreted by the ED physician <Dr. Emil Quan, DO - Last Filed: 06/20/24 02:04> [facility] Narrative Medical decision making narrative: Patient presenting today due to concerns for pain across her lower chest, mild dyspnea with exertion, and lower extremity edema that has been ongoing for days. She has a chronic cough due to her smoking history of asthma. She will be given albuterol and DuoNeb breathing treatments. Cardiac labs will be obtained. CBC shows a leukocytosis at 14.2, creatinine mildly elevated at 1.26, this is slightly increased from previous labs when reviewing her records on her MyChart when her creatinine was 0.73 in March, initial troponin is 8, delta pending. BNP WNL, D-dimer WNL. Low suspicion for PE. Chest x-ray shows findings suggestive of vascular congestion. I also reviewed her outpatient echocardiogram from 12/2023, this showed normal left ventricular systolic function, moderate left ventricular hypertrophy. She did request to be given a course of prednisone, she reports that this will help with her chest tightness and dyspnea due to her cough and asthma history. She has been on doxycycline, I do not feel additional antibiotics are indicated, chest x-ray did not show evidence of infiltrate. Disposition pending. Supervisory Physician Note Patient was seen and examined with the Advanced Practice Provider. Nursing notes and vital signs have been reviewed. Pertinent old records have been reviewed. I agree with the essential elements of the JAVIER's history, physical exam, assessment, and plan. The differential diagnosis and management options were discussed with the JAVIER. I participated in determining and agree with the management, procedures, final impression and disposition as documented. See changes noted by me. Please see addendum or separate note for any additional details. 49-year-old female with past medical history of HTN, aortic stenosis, tobacco abuse, asthma, history of peripheral edema presents for evaluation of chest tightness and peripheral edema. Chest tightness is bilateral under the breast ongoing for several days. Has a chronic cough but currently being treated with doxycycline for URI/bronchitis. Patient endorses increasing bilateral peripheral edema for the past 3 days. She states she is supposed to take 20 mg of Lasix daily when her peripheral edema increases. States that she has been taking 40 mg daily, 20 mg twice daily instead. She states she read on the Internet that this is okay. She denies a diagnosis of CHF. Gen: A&O x3, NAD Head: Normocephalic, atraumatic Eyes: No sclera icterus, conjunctiva clear ENT: Moist mucous membranes Neck: Trachea midline, No JVD CV: RRR, no murmurs, bilateral nonpitting peripheral edema to the feet and ankles Resp: Lungs CTA BL, no w/r/c GI: Large body habitus, abd soft, non-distended, non-tender, no r/r/g Musc: Full ROM, no deformity Skin: Warm, dry Neuro: Alert, oriented, grossly intact, sensation intact Psych: Cooperative, appropriate mood and affect Differential diagnosis includes but is not limited to symptomatic bronchitis, URI, mild asthma exacerbation, CHF, low suspicion for ACS or PE. Breathing treatments ordered. Cardiac/respiratory workup ordered. EKG reviewed. Chest x-ray shows increased vascular markings concern for congestion, no effusion, pneumonia, pneumothorax, cardiomegaly. Radiology in agreement. CBC with mild leukocytosis of 14.2. Patient currently on doxycycline for bronchitis. May be reason for her leukocytosis. No anemia. History of thrombocytosis. D-dimer unremarkable. BMP unremarkable except for renal insufficiency with creatinine of 1.26. Previous labs are from 2023. Will try to obtain outside records. BNP unremarkable. Troponin unremarkable x 2. Reviewing the records from [facility], patient's creatinine was 0.73 in March. Concern is that the renal insufficiency could be caused from her doubling of her Lasix. Despite her nonpitting bilateral peripheral edema and mild vascular congestion, patient is not in CHF exacerbation. She has no history of heart failure and her previous echocardiogram from 01/12 showed normal left ventricular systolic function. Her vitals are stable other than some mild hypertension. She is not requiring oxygen. On reevaluation, she states that she feels that her chest tightness has improved with breathing treatments. She is requesting a course of prednisone as she thinks this may be due to mild asthma. She was updated on all of her results as well as her increasing renal function. Patient wants to discharge home. I do think this is reasonable. She was educated that she needs to go back to her 20 mg of Lasix daily and that she needs to follow-up with her PCP and clinical trials data coordinator. She states that her PCP might charted her this evening and wants her to call the office to see if she can be seen tomorrow. I do feel this is appropriate. She was educated that her BMP needs to be repeated in 2 days to assess for her renal function. She confirmed understanding. Return precautions explained. Patient will be given a short course of prednisone for possible mild asthma exacerbation. Impression: 1. Atypical chest pain 2. Bilateral peripheral edema 3. Renal insufficiency 4. Bronchitis/mild asthma exacerbation Lab Data Labs: Laboratory Results - last 24 hr 06/19/24 06/19/24 06/19/24 19:09 19:29 21:20 WBC 14.2 H RBC 4.39 Hgb 13.3 Hct 39.7 MCV 90.4 MCH 30.3 MCHC 33.5 RDW Std Deviation 44.5 H RDW Coeff of Roger 13.5 Plt Count 487 H MPV 9.7 Immature Gran % (Auto) 0.700 Neut % (Auto) 73.1 H Lymph % (Auto) 19.7 [place] % (Auto) 4.9 Eos % (Auto) 1.2 Baso % (Auto) 0.4 Absolute Neuts (auto) 10.4 H Absolute Lymphs (auto) 2.81 Nucleated RBC % 0 D-Dimer Quant (PE/DVT) 0.40 Sodium 136 Potassium 5.0 Chloride 102 Carbon Dioxide 21.6 Anion Gap 12 BUN 18 Creatinine 1.26 H Estim Creat Clear Calc 71.28 Est GFR (MDRD) Non-Af 53 L BUN/Creatinine Ratio 14.2 Glucose 111 H Calcium 8.9 Troponin T High Sens 8 Troponin T Hi Sens 2 Hr 10 NT pro BNP II 331 Radiography Diagnostic Testing: Clinical Impression(s) from Imaging Studies Chest X-Ray 06/19/24 19:33 IMPRESSION: Findings suggestive of vascular congestion. Reading Location: [facility] Discharge Plan Triage Chief Complaint: Chest Pain Other Complaint: Shortness of Breath ED Midlevel Provider: Merle Olson ED Provider: Emil Quan Dx/Rx/DC Orders Clinical Impression: Asthma exacerbation, Bronchitis, Atypical chest pain, Bilateral edema of lower extremity Instructions: ED Bronchitis, No Antibiotic (Adult), ED Chest Pain, Uncertain Cause, ED Peripheral Edema, Bilateral Prescriptions: New prednisone 20 mg tablet 40 mg PO DAILY 5 Days Qty: 10 0RF No Action fluoxetine 40 mg capsule 80 mg PO DAILY lisinopril 10 mg tablet 10 mg PO DAILY propranolol 20 mg tablet 20 mg PO BID pregabalin 75 mg capsule 75 mg PO BID duloxetine [Cymbalta] 60 mg capsule,delayed release(DR/EC) 60 mg PO DAILY esomeprazole magnesium [Nexium] 40 mg capsule,delayed release(DR/EC) 40 mg PO BID clobetasol 0.05 % ointment 1 applic topical BID albuterol sulfate 90 mcg/actuation HFA aerosol inhaler 2 puff inhalation Q4H PRN PRN (Reason: wheezing) cholecalciferol (vitamin D3) [Vitamin D3] 25 mcg (1,000 unit) tablet 50 mcg PO DAILY loratadine [Allerclear] 10 mg tablet 10 mg PO DAILY meloxicam 15 mg tablet 15 mg PO DAILY pseudoephedrine HCl 120 mg tablet extended release 120 mg PO BID terbinafine HCl 250 mg tablet 250 mg PO DAILY hydroxyzine pamoate 25 mg capsule 25 mg PO TID PRN PRN (Reason: anxiety) fluticasone furoate-vilanterol 200-25 mcg/dose blister with device 1 inh inhalation DAILY Other Ambulatory Orders: Basic Metabolic Profile (BMP) (Routine) Timeframe: 2 Days Facility: [facility] - Location: Laboratory Ordered By: Dr. Emil Quan Primary Care Provider: Yamileth Estevez NP Referrals: [employer] [Other] - 3-5 Days Yamileth Estevez NP, [employer] [Primary Care Provider] - 3-5 Days Activity Restrictions/Additional Instructions: Follow-up with your primary care physician as well as your clinical trials data coordinator. Make appointments as soon as possible. Continue your Lasix prescription as written on the bottle, do not extra dosing. Your kidney function was elevated here in the emergency department at 1.26. You will need to have your BNP repeated in 2 days. Order was given. Return back to the ED if symptoms change or worsen. Print Language: Pakistani Disposition Disposition: Home, Self Care Discharge Date/Time: 06/19/24 22:40
[2024-06-19 19:53] VITALS: BP 154/107; PULSE 84; RESP 12; O2SAT 98
[2024-06-19 19:57] LABS: Anion Gap 12 (5-15); BUN 18 mg/dL (4-19); BUN/Creat Ratio 14.2 RATIO (10-20); Calcium,Total 8.9 mg/dL (7.6-11.0); Carbon Dioxide 21.6 mmol/L (21.0-32.0); Chloride 102 mmol/L (98-108); Creatinine, Serum 1.26 mg/dL (0.70-1.20); EST Glomerular Filtration Rate 53 (>60); Estimated Creatinine Clearance 71.28 ml/min (50-250); Glucose 111 mg/dL (70-99); Sodium Level 136 mmol/L (133-145); Troponin T High Sensitivity 8 ng/L (<=14)
[2024-06-19 20:00] VITALS: BP 150/100; PULSE 85; RESP 13; O2SAT 96
[2024-06-19 20:30] LABS: Pro- Brain NATRIURETIC PEPTIDE 331 pg/mL (<=450)
[2024-06-19 21:00] VITALS: BP 157/89
[2024-06-19 21:56] LABS: Troponin T High Sens 2 HR 10 ng/L (<=14)
[2024-06-19 22:36] VITALS: BP 150/70; PULSE 68; RESP 15; TEMP 36.6; O2SAT 100
[2024-06-19] MEDS: predniSONE 20 MG Tablet 40 MG PO (22:36)
== END 2024-06-19 22:40 | disposition home or self-care (01) ==
PROVIDERS: Physician Assistant; Emergency Provider Surgery; PCP Nurse Practitioner Family; Referring Provider Surgery; Visit Provider Surgery
DX: R07.89 Other chest pain (principal); J45.901 Unspecified asthma with (acute) exacerbation; N28.9 Disorder of kidney and ureter, unspecified; R60.0 Localized edema; R06.09 Other forms of dyspnea; I10 Essential (primary) hypertension; F17.210 Nicotine dependence, cigarettes, uncomplicated; Z79.899 Other long term (current) drug therapy
CPT/HCPCS: 71046; 80048; 83880; 84484; 85025; 85379; 93005; 99285; A4216

== ENCOUNTER 2024-06-30 08:35 | Emergency (ER) | payer MEDICARE, MEDICAID, SELFPAY ==
[2024-06-30] VITALS (7 sets, daily range): BP systolic 109–125; BP diastolic 65–91; PULSE 81–93; RESP 16–20; TEMP 36.6; O2SAT 95–98; BMI 49.6
--- NOTE | 2024-06-30 08:54 | ED.VIS.CHEST ---
HPI History of Present Illness Chief Complaint: Chest Pain Informant: patient Onset/Context/Timing Onset: Yesterday Activity at onset: gradual Timing: Continuous Quality: Positive for Tightness Location: Substernal, Right Parasternal, Left Parasternal, Right Chest and Left Chest Worsened By: Exertion Relieved By: Rest Associated Symptoms: Positive for Dyspnea and Lightheadedness; Negative for Nausea, Vomiting, Diaphoresis, Cough, Fever, Acid Reflux or Palpitations Narrative Narrative: Patient presents with chest pain and shortness of breath that began yesterday. Patient states her pain is diffuse across her chest but worse on the left. Patient describes her pain as a tightness. Patient states it has been constant since last night. Patient states it is worse with any exertion and better with rest. Patient states she has been retaining some water and her legs have been swelling. Patient admits to some shortness of breath but denies any cough or fevers. Patient does admit to some lightheadedness. Patient denies any nausea or vomiting. Patient denies any diaphoresis. CVD Risk Factors: Positive for Diabetes (Prediabetes) and Smoking; Negative for Hypertension, Hypercholesterolemia or Family History 1' </=55 PE Risk Factors: Negative for Recent Travel/Surgery, Recent Immobilization, Prior DVT or PE, Cancer or OCP + Smoking + >/=35 PFSH PFSH Medical History (Updated 06/30/24 @ 12:[address] Jorge Monique, ) Asthma Hypertension Migraine Bulimia Lesion of spleen Endometriosis Heart murmur Aortic stenosis Acid reflux Depression Fibromyalgia Home Medications ?Medication ?Instructions ?Recorded ?Last Taken ?Type albuterol sulfate 90 mcg/actuation 2 puff inhalation Q4H PRN PRN 08/09/23 Unknown History aerosol inhaler wheezing cholecalciferol (vitamin D3) 25 50 mcg PO DAILY 08/09/23 Unknown History mcg (1,000 unit) tablet (Vitamin D3) clobetasol 0.05 % topical ointment 1 applic topical BID 08/09/23 Unknown History duloxetine 60 mg capsule,delayed 60 mg PO DAILY 08/09/23 Unknown History release (Cymbalta) esomeprazole magnesium 40 mg 40 mg PO BID 08/09/23 Unknown History capsule,delayed release (Nexium) fluoxetine 40 mg capsule 80 mg PO DAILY 08/09/23 Unknown History fluticasone furoate 200 1 inh inhalation DAILY 08/09/23 Unknown History mcg-vilanterol 25 mcg/dose inhalation powder hydroxyzine pamoate 25 mg capsule 25 mg PO TID PRN PRN anxiety 08/09/23 Unknown History lisinopril 10 mg tablet 10 mg PO DAILY 08/09/23 Unknown History loratadine 10 mg tablet 10 mg PO DAILY 08/09/23 Unknown History ([place]) meloxicam 15 mg tablet 15 mg PO DAILY 08/09/23 Unknown History pregabalin 75 mg capsule 75 mg PO BID 08/09/23 Unknown History propranolol 20 mg tablet 20 mg PO BID 08/09/23 Unknown History pseudoephedrine HCl 120 mg 120 mg PO BID 08/09/23 Unknown History tablet,extended release terbinafine HCl 250 mg tablet 250 mg PO DAILY 08/09/23 Unknown History prednisone 20 mg tablet 40 mg (2 x 20 mg) PO DAILY 5 days 06/19/24 Unknown Rx #10 tabs Allergy/AdvReac Type Severity Reaction Status Date / Time metformin AdvReac Severe Other Verified 06/30/24 08:36 Surgical History (Updated 06/30/24 @ 10:[address] Jorge Monique DO) Hx of laparoscopy Hx of ovarian cystectomy Hx of tonsillectomy Social History housing: house Smoking Status: Current every day smoker tobacco type: cigarettes details: Social substance use type: does not use ROS ROS ED Constitutional Constitutional ED: Reports chills and subjective; Denies fever(s) Eyes Eyes: Denies blurry vision or change in vision ENT ENT ED: Denies rhinorrhea or sore throat Cardiovascular Cardiovascular: Reports chest pain; Denies palpitations Respiratory/Chest Respiratory/Chest: Reports dyspnea; Denies cough Gastrointestinal Gastrointestinal: Reports nausea; Denies abdominal pain or vomiting Genitourinary Genitourinary ED: Denies dysuria or hematuria Musculoskeletal Musculoskeletal: Reports back pain; Denies neck pain Integumentary Denies abscess or rash Neurologic Neurologic: Denies headache(s) or weakness Allergic/Immunologic Allergic/Immunologic ED: Denies mouth swelling or urticaria EXAM Physical Exam Const Vital Signs: 06/30/24 08:36 06/30/24 09:35 06/30/24 09:45 Temperature 98 F Temperature Source Oral Pulse Rate 89 81 Respiratory Rate 20 H 19 H Blood Pressure 109/65 116/73 Blood Pressure Mean 79 87 Pulse Ox 95 96 Oxygen Delivery Method Room Air Room Air Room Air 06/30/24 09:54 06/30/24 10:00 06/30/24 11:00 Temperature Temperature Source Pulse Rate 84 81 93 Respiratory Rate 19 H Blood Pressure 116/73 114/81 H 118/86 H Blood Pressure Mean 92 96 Pulse Ox 98 96 Oxygen Delivery Method Room Air Room Air Positive well nourished and well developed Constitutional Narrative: BMI is 49.6 General Appearance ED: well developed and NAD HEENT Reports moist mucous membranes normocephalic and atraumatic Neck supple and no JVD Resp normal respiratory effort Auscultation: diminished lung sounds diffuse Cardio regular rate and regular rhythm GI soft to palpation, non-tender and non-distended Extremity General Extremety ED: Yes edema; Negative for tenderness General Extremity: edema Neuro oriented x3, CN's II-XII intact bilaterally and no sensory deficits noted Sensorium / Orientation: awake and alert Motor Exam: strength 5/5 throughout Psych mental status grossly normal MDM MDM MDM Narrative Medical decision making narrative: Differential diagnosis includes cardiac dysrhythmia, cardiac ischemia, congestive heart failure, pneumonia, bronchitis, acute kidney injury, and electrolyte abnormality. EKG will be obtained to assess for cardiac dysrhythmia or cardiac ischemia. Chest x-ray will be obtained to assess for congestive heart failure and pneumonia. CBC will be obtained to assess for leukocytosis and anemia. Basic metabolic profile will be obtained to assess for electrolyte abnormality and renal function. BNP will be obtained to assess for congestive heart failure. High-sensitivity troponin will be obtained to assess for cardiac ischemia. 2-hour repeat high-sensitivity troponin will be obtained to assess for ongoing cardiac ischemia. History & Record Review Additional record(s) reviewed:: Prior outpatient record and Prior labs Lab Data Attestation: I reviewed the patient's lab results. Lab results narrative: CBC was reviewed. There is a mild leukocytosis of 17.0. The remainder is within normal limits. Basic metabolic profile was reviewed. BUN was slightly elevated at 23 and creatinine was normal at 0.7. These are improved from previous results. Initial high-sensitivity troponin was reviewed and was normal at 7. 2-hour repeat high-sensitivity troponin was reviewed and was normal at 8. BNP was reviewed and was normal at 402. Labs: Laboratory Results - last 24 hr 06/30/24 06/30/24 08:43 10:30 WBC 17.0 H RBC 4.22 Hgb 12.8 Hct 38.8 MCV 91.9 MCH 30.3 MCHC 33.0 RDW Std Deviation 46.4 H RDW Coeff of Roger 13.9 Plt Count 459 H MPV 10.1 Immature Gran % (Auto) 1.900 H Neut % (Auto) 70.9 H Lymph % (Auto) 20.1 Foster % (Auto) 5.8 Eos % (Auto) 0.9 Baso % (Auto) 0.4 Absolute Neuts (auto) 12.0 H Absolute Lymphs (auto) 3.41 Nucleated RBC % 0 Sodium 136 Potassium 4.3 Chloride 102 Carbon Dioxide 21.4 Anion Gap 13 BUN 23 H Creatinine 0.70 Estim Creat Clear Calc 133.73 Est GFR (MDRD) Non-Af 107 BUN/Creatinine Ratio 33.0 H Glucose 67 L Calcium 8.3 Troponin T High Sens 7 D Troponin T Hi Sens 2 Hr 8 NT pro BNP II 402 Radiography Diagnostic Testing: Patient refused chest x-ray. Patient states she just had one done recently. Chest x-ray from 06/19/2024 was reviewed. There is mild vascular congestion. This was interpreted by the radiologist but was also independently reviewed by myself. EKG Initial EKG: Attestation: I personally reviewed and interpreted this EKG as follows: Interpretation: Sinus Rhythm (87) and No Acute Injury Pattern Comments: EKG was obtained. On my independent interpretation, it showed a normal sinus rhythm with a rate of 87. SD interval, QRS interval, and QTc intervals were all normal. [place] was normal. There are no acute ST or T wave changes. Prior EKG tracings: available for review Prior: Unchanged (06/19/2024) Treatment and Re-Evaluation :: Patient was given Ativan and a sublingual nitroglycerin. Patient was feeling better on reevaluation. Patient was advised of her findings. Patient states she wants to go home. Patient was instructed to follow-up with her primary care physician in 3 to 5 days for further evaluation. Patient was instructed to return if worse in any way. Patient understood and was agreeable with plan. All questions were answered. Discharge Plan Triage Chief Complaint: Chest Pain ED Provider: Jorge Monique Dx/Rx/DC Orders Clinical Impression: Peripheral edema, Chest pain Instructions: ED Chest Pain, Uncertain Cause, ED Peripheral Edema, Bilateral Prescriptions: No Action prednisone 20 mg tablet 40 mg PO DAILY 5 Days Qty: 10 0RF fluoxetine 40 mg capsule 80 mg PO DAILY lisinopril 10 mg tablet 10 mg PO DAILY propranolol 20 mg tablet 20 mg PO BID pregabalin 75 mg capsule 75 mg PO BID duloxetine [Cymbalta] 60 mg capsule,delayed release(DR/EC) 60 mg PO DAILY esomeprazole magnesium [Nexium] 40 mg capsule,delayed release(DR/EC) 40 mg PO BID clobetasol 0.05 % ointment 1 applic topical BID albuterol sulfate 90 mcg/actuation HFA aerosol inhaler 2 puff inhalation Q4H PRN PRN (Reason: wheezing) cholecalciferol (vitamin D3) [Vitamin D3] 25 mcg (1,000 unit) tablet 50 mcg PO DAILY loratadine [Allerclear] 10 mg tablet 10 mg PO DAILY meloxicam 15 mg tablet 15 mg PO DAILY pseudoephedrine HCl 120 mg tablet extended release 120 mg PO BID terbinafine HCl 250 mg tablet 250 mg PO DAILY hydroxyzine pamoate 25 mg capsule 25 mg PO TID PRN PRN (Reason: anxiety) fluticasone furoate-vilanterol 200-25 mcg/dose blister with device 1 inh inhalation DAILY Primary Care Provider: Yamileth Estevez NP Referrals: Yamileth Estevez NP, [employer] [Primary Care Provider] - 3-5 Days Print Language: Romanian Disposition Disposition: Home, Self Care
--- NOTE | 2024-06-30 09:45 | EKG12_ITS ---
Test Reason : CP Blood Pressure : */* mmHG Vent. Rate : 87 BPM Atrial Rate : 87 BPM P-R Int : 146 ms QRS Dur : 90 ms QT Int : 368 ms P-R-T Axes : 61 18 87 degrees QTcB Int : 442 ms Normal sinus rhythm Nonspecific T wave abnormality Abnormal ECG When compared with ECG of 19-Jun-2024 19:02, No significant change was found Confirmed by YOSSI HUTCHINSON, GÉNESIS ([id number]), online editor VERÓNICA LARIOS ([id number]) on 07/08/2024 9:45:21 AM Referred By: KLAUS Confirmed By: GÉNESIS SY MD
[2024-06-30] MEDS: Nitroglycerin SL (ED/IMG/CATH) 0.4 MG TABLET SL (09:54)
[2024-06-30 10:05] LABS: Absolute Lymphocyte Count 3.41 X10^3/uL (0.83-4.51); Basophil# 0.07 X10^3/uL; Basophil% 0.4 % (0-1); Eosinophil# 0.15 X10^3/uL; Eosinophils% 0.9 % (0-5); Hematocrit 38.8 % (37-47); Hemoglobin 12.8 g/dL (12.0-15.0); Lymphocyte # 3.41 X10^3/ul (0.83-4.51); Lymphocyte % 20.1 % (19-41); Mean Corpuscular Hgb 30.3 pg (27.0-32.0); Mean Corpuscular Volume 91.9 fL (81-99); Mean Platelet Vol. 10.1 fl (6.2-12.0); Monocyte# 0.99 X10^3/uL; Monocyte% 5.8 % (0-10); NRBC Flagged by Analyzer 0 % (0-5); Neutrophil # 12.01 X10^3/uL (2.7-7.7); Neutrophil % 70.9 % (47-70); Platelet Count 459 K/mm3 (150-450); RBC Distribution Width CV 13.9 % (11.6-14.6); RBC Distribution Width SD 46.4 fl (35.1-43.9); Red Blood Count 4.22 M/mm3 (4.2-5.4)
[2024-06-30 10:52] LABS: Anion Gap 13 (5-15); BUN 23 mg/dL (4-19); Calcium,Total 8.3 mg/dL (7.6-11.0); Carbon Dioxide 21.4 mmol/L (21.0-32.0); Chloride 102 mmol/L (98-108); EST Glomerular Filtration Rate 107 (>60); Estimated Creatinine Clearance 133.73 ml/min (50-250); Glucose 67 mg/dL (70-99); Potassium 4.3 mmol/L (3.3-5.1); Pro- Brain NATRIURETIC PEPTIDE 402 pg/mL (<=450); Sodium Level 136 mmol/L (133-145); Troponin T High Sensitivity 7 ng/L (<=14)
[2024-06-30 10:56] LABS: Troponin T High Sens 2 HR 8 ng/L (<=14)
== END 2024-06-30 12:42 | disposition home or self-care (01) ==
PROVIDERS: Emergency Provider Emergency Medicine; PCP Nurse Practitioner Family; Visit Provider Emergency Medicine
DX: M79.89 Other specified soft tissue disorders (principal); R07.9 Chest pain, unspecified; F17.210 Nicotine dependence, cigarettes, uncomplicated; R06.02 Shortness of breath
CPT/HCPCS: 80048; 83880; 84484; 85025; 93005; 99285; A4216

== ENCOUNTER 2024-10-20 14:14 | Emergency (ER) | payer MEDICARE, MEDICAID, SELFPAY ==
[2024-10-20 14:16] VITALS: BP 126/78; PULSE 104; RESP 22; TEMP 36.9; O2SAT 97; BMI 45.9
--- NOTE | 2024-10-20 14:25 | EKG12_ITS ---
Test Reason : CP Blood Pressure : */* mmHG Vent. Rate : 105 BPM Atrial Rate : 105 BPM P-R Int : 152 ms QRS Dur : 88 ms QT Int : 356 ms P-R-T Axes : 46 26 110 degrees QTcB Int : 470 ms Sinus tachycardia T wave abnormality, consider lateral ischemia Abnormal ECG Confirmed by Dhruv Collazo ([id number]), newspaper managing editor VERÓNICA LARIOS ([id number]) on 10/21/2024 11:01:25 AM Referred By: Confirmed By: Dhruv Collazo
--- NOTE | 2024-10-20 14:26 | RAD_ITS ---
PROCEDURE: CHEST PA AND LATERAL 10/20/2024 REASON FOR EXAM: CHEST PAIN TECHNIQUE: Procedure: CHEST PA AND LATERAL standard protocol COMPARISON: 06/19/24 FINDINGS: No focal consolidation. No pleural effusion or pneumothorax. Cardiac silhouette is within normal limits. No acute fractures. Median sternotomy wires of which, most superior one appears fractures. RAD/Chest PA and Lateral IMPRESSION: No focal consolidations. Median sternotomy wires of which, most superior one appears fractures. Reading Location: [facility]
--- NOTE | 2024-10-20 14:32 | ED.VIS.CHEST ---
HPI History of Present Illness Chief Complaint: Chest Pain Informant: patient Onset/Context/Timing Onset: Weeks Activity at onset: gradual Timing: Continuous Quality: Positive for Aching Location: Substernal (Midsternal over her recent sternotomy incision. Incision is dry and clean. Is not red. There is no drainage or discharge it looks like it is healing well.) Current Severity: Mild Maximum Severity: Mild Worsened By: Movement of Torso Relieved By: Remaining Still Associated Symptoms: Negative for Nausea, Vomiting, Diaphoresis, Cough, Fever or Lightheadedness Narrative Narrative: 49-year-old female status post sternotomy open heart surgery done at the [facility] 5 weeks ago for replaced aortic valve and either an ASD or VSD was repaired. She has never had DVT or PE she is currently on no blood thinners. She said ever since the surgery for the last 5 weeks she has had midsternal chest pain. Movement makes it worse. She denies fever or chills. She denies any redness or drainage to her incision site. She has been evaluated by this in the [facility] is aware of it. Prior Similar Symptoms: Yes Recent Illness/Hospitalization: Yes CVD Risk Factors: Negative for Diabetes PE Risk Factors: Positive for Recent Travel/Surgery; Negative for Recent Immobilization, Prior DVT or PE, Cancer, OCP + Smoking + >/=35 or - TAD Risk Factors: Negative for Marfan's Syndrome [facility] Medical History Asthma Hypertension Migraine Bulimia Lesion of spleen Endometriosis Heart murmur Aortic stenosis Acid reflux Depression Fibromyalgia Home Medications ?Medication ?Instructions ?Recorded ?Last Taken ?Type albuterol sulfate 90 mcg/actuation 2 puff inhalation Q4H PRN PRN 08/09/23 Unknown History aerosol inhaler wheezing cholecalciferol (vitamin D3) 25 50 mcg PO DAILY 08/09/23 Unknown History mcg (1,000 unit) tablet (Vitamin D3) clobetasol 0.05 % topical ointment 1 applic topical BID 08/09/23 Unknown History esomeprazole magnesium 40 mg 40 mg PO BID 08/09/23 Unknown History capsule,delayed release (Nexium) fluoxetine 40 mg capsule 80 mg PO DAILY 08/09/23 Unknown History lisinopril 10 mg tablet 10 mg PO DAILY 08/09/23 Unknown History loratadine 10 mg tablet 10 mg PO DAILY 08/09/23 Unknown History (Alleririsar) meloxicam 15 mg tablet 15 mg PO DAILY 08/09/23 Unknown History pregabalin 75 mg capsule 75 mg PO BID 08/09/23 Unknown History propranolol 20 mg tablet 20 mg PO BID 08/09/23 Unknown History pseudoephedrine HCl 120 mg 120 mg PO BID 08/09/23 Unknown History tablet,extended release terbinafine HCl 250 mg tablet 250 mg PO DAILY 08/09/23 Unknown History prednisone 20 mg tablet 40 mg (2 x 20 mg) PO DAILY 5 days 06/19/24 Unknown Rx #10 tabs aripiprazole 15 mg tablet 15 mg PO DAILY 10/20/24 Unknown History clopidogrel 75 mg tablet 75 mg PO DAILY 10/20/24 Unknown History fluticasone 250 mcg-salmeterol 50 1 ea inhalation BID 10/20/24 Unknown History mcg/dose blistr powdr for inhalation fluticasone propionate 50 1 spray intranasal DAILY 10/20/24 Unknown History mcg/actuation nasal spray,suspension furosemide 20 mg tablet 20 mg PO DAILY 10/20/24 Unknown History furosemide 40 mg tablet 40 mg PO BID 10/20/24 Unknown History oxycodone-acetaminophen 5 mg-325 1 tab PO Q6H PRN pain 3 days #10 10/20/24 Unknown Rx mg tablet (Percocet) tabs Allergy/AdvReac Type Severity Reaction Status Date / Time metformin AdvReac Severe Other Verified 10/20/24 14:14 Surgical History Hx of laparoscopy Hx of ovarian cystectomy Hx of tonsillectomy Social History housing: house Smoking Status: Light Smoker (<10/day) details: Social substance use type: does not use ROS ROS ED ROS Narrative Denies recent illness. Constitutional Constitutional ED: Denies chills or fever(s) Eyes Eyes: Reports none ENT ENT ED: Denies ear pain Cardiovascular Cardiovascular: Reports chest pain Respiratory/Chest Respiratory/Chest: Denies cough, dyspnea or dyspnea on exertion Gastrointestinal Gastrointestinal: Denies abdominal pain Genitourinary Genitourinary ED: Denies dysuria or hematuria Musculoskeletal Musculoskeletal: Denies arthralgias, back pain or myalgias Integumentary Denies abscess, Abrasions or rash Neurologic Neurologic: Denies headache(s) Psychiatric Psychiatric: Denies anxiety or depression Endocrine Endocrinology: Denies cold intolerance Hematologic/Lymphatic Hematologic/Lymphatic: Denies easy bleeding, easy bruising or lymphadenopathy Allergic/Immunologic Allergic/Immunologic ED: Denies mouth swelling, tongue swelling or urticaria EXAM Physical Exam Narrative Exam Narrative: 49-year female vital signs stable afebrile. Pulse ox 97% on room air no signs hypoxia. H EENT exam pupils Ramming Actilite. EXTR are intact. Moist mutes membranes. Neck nontender no JVD. Back nontender. Lungs clear to auscultation bilaterally. Heart regular rhythm rate about 100 no murmur. Chest wall well-healing sternotomy incision dry and clean. No redness or drainage or discharge. Tender along the incision site. Consistent where she is having the pain. Abdomen is soft and nontender normal bowel sounds without peritoneal signs. Moving all 4 extremities. Equal symmetrical 5-5 nuclear monitoring technician strength. Dorsi plantarflexion intact. Calves are nontender without edema or cords. Neurologically she is awake alert. Answering questions following commands. Const Vital Signs: 10/20/24 14:16 10/20/24 16:00 Temperature 98.5 F Temperature Source Oral Pulse Rate 104 H 80 Respiratory Rate 22 H 18 Blood Pressure 126/78 H 122/78 H Blood Pressure Mean 94 92 Pulse Ox 97 98 Oxygen Delivery Method Room Air Positive well nourished and well developed; Negative for cachectic, contractures or unkempt General Appearance ED: well developed and NAD; Negative for unkempt, cachectic, contractures or pallor Nutritional Appearance: Negative for cachectic HEENT Reports moist mucous membranes normocephalic and atraumatic Eyes PERRL and EOMs intact bilaterally Neck no lymphadenopathy, supple and no JVD Chest Wall inspection of chest normal; Negative for palpation of chest normal Chest Narrative: Recent sternotomy. Incision dry and clean and healing nicely. Tenderness along the incision. No signs of infection or cellulitis. Chest: tenderness Resp normal respiratory effort and clear to auscultation bilaterally Cardio regular rate, regular rhythm, S1 normal heart sound, S2 normal heart sound and no murmurs Peripheral Pulses: pulses 2+ throughout GI normal to inspection, nondistended, normoactive bowel sounds, soft to palpation, non-tender, non-distended and no masses Back/Spine no CVA tenderness and no thoracic nor lumbar tenderness Extremity normal to inspection General Extremety ED: Negative for edema General Extremity: Negative for edema Neuro CN's II-XII intact bilaterally Sensorium / Orientation: awake, alert, oriented to person, oriented to place and oriented to time Motor Exam: strength 5/5 throughout Psych mental status grossly normal Appearance: Negative for unkempt Skin no rashes or lesions noted and no wounds General Skin Exam: Negative for jaundice or pallor Rashes: No rashes noted Trauma: Negative for abrasion or laceration Heart Score History: Slightly/Non-Suspicious Age: >45 - <65 years Risk Factors: No Risk Factors Troponin: </= Normal Limit Score: 1 MDM MDM MDM Narrative Medical decision making narrative: 49-year-old female recent sternotomy for aortic valve replacement and either an ASD or VSD repair at the [facility] since the surgery 5 weeks ago she is in chronic pain along her sternum. Dermal sites healing nicely. She will undergo cardiac workup I do not think this is an NE. Clinically does not sound like a PE. On exam it is consistent musculoskeletal pain. Although repeat exams patient is doing well. The incision looks good on multiple exams. There is no redness or warmth. She is tender along the sternotomy. CAT scan showed the fractured wire and inflammation. I discussed this with one of the cardiothoracic fellows at the [facility] and he reviewed the film. Given her clinical presentation he does not think this is an acute infection. He is comfortable with her being discharged home. Were not can start any antibiotics at this time. They will follow her up closely this week in the next 1 to 2 days. Patient is comfortable with the plan. She will be discharged with limited pain medication. And knows to call her cardiothoracic surgeon tomorrow to be seen either tomorrow or Sunday for further evaluation. She and I have discussed all of her test results including the chest x-ray, the fractured sternal wire and the CAT scan results. She is comfortable with the plan. History & Record Review Discussion w/independent historian: Patient Additional record(s) reviewed:: Prior inpatient record, Prior outpatient record, Prior ED visit and Prior labs Lab Data Attestation: I reviewed the patient's lab results. Lab results narrative: CBC shows a white count 13.2. H&H 10.2 and 33.4. Platelets 522. D-dimer is elevated at 1.49. Chemistries show a gap of 12. Normal BUN and creatinine. Glucose 124. Initial troponin 12. 2-hour troponin 12 also. Chest x-ray shows prior sternotomy with a for sternal wire has been fractured. I discussed this with the patient follow-up with her cardiothoracic surgeon to clinic. Otherwise no acute process. Labs: Laboratory Results - last 24 hr 10/20/24 10/20/24 10/20/24 14:30 16:11 18:53 WBC 13.2 H RBC 3.93 L Hgb 10.2 L Hct 33.4 L MCV 85.0 MCH 26.0 L MCHC 30.5 L RDW Std Deviation 44.6 H RDW Coeff of Roger 14.4 Plt Count 522 H MPV 9.2 Immature Gran % (Auto) 0.700 Neut % (Auto) 74.4 H Lymph % (Auto) 18.1 L Hall % (Auto) 5.0 Eos % (Auto) 1.4 Baso % (Auto) 0.4 Absolute Neuts (auto) 9.8 H Absolute Lymphs (auto) 2.38 Nucleated RBC % 0 ESR 52 H D-Dimer Quant (PE/DVT) 1.49 H* Sodium 139 Potassium 3.5 Chloride 102 Carbon Dioxide 25.2 Anion Gap 12 BUN 16 Creatinine 0.76 Estim Creat Clear Calc 117.62 Est GFR (MDRD) Non-Af 98 BUN/Creatinine Ratio 21.4 H Glucose 124 H Calcium 9.0 Troponin T High Sens 12 D Troponin T Hi Sens 2 Hr 12 Troponin T Hi Sens 4Hr 11 Radiography Chest X-Ray - ED: 2 View, Read by ED Physician, Heart, Lungs, Mediastinum, Bony Structures, No Acute Disease and Chronic Changes Diagnostic Testing: Clinical Impression(s) from Imaging Studies Chest X-Ray 10/20/24 14:26 IMPRESSION: No focal consolidations. Median sternotomy wires of which, most superior one appears fractures. Reading Location: [facility] Chest CTA 10/20/24 14:58 IMPRESSION: 1. Recent appearing operative changes as above. Presternal and retrosternal stranding/ill defined fluid are nonspecific in the recent operative context and may be postoperative however surgical site infection cannot be excluded by imaging. Minimal anterior mediastinal high attenuation fluid probably reflects a component of blood products however no sizable mediastinal hematoma or obvious organized abscess is present currently. 2. Redemonstrated fracture of cranial most manubrial wire with associated dehiscence of ununited manubrial fragments of roughly 1.7 cm. Minimally dehiscent ununited sternotomy margins. 3. Recommend outpatient thyroid ultrasound. 4. Additional description as above. Reading Location: [facility] Chest x-ray, 2 views, AP and lateral, interpreted by myself shows a recent sternotomy. The first sternal wire is broken. I discussed that with the patient. He has normal cardiac silhouette. Normal lung bedolla. No other acute process. Rhythm Strip Rhythm Strip: Sinus Rhythm Rate: 105 Ectopy: None EKG Initial EKG: Attestation: I personally reviewed and interpreted this EKG as follows: Interpretation: No Acute Injury Pattern and Sinus Tachycardia Comments: Sinus tachycardia rate of 105 no acute signs of NE or ischemia. No [id number]. Discharge Plan Triage Chief Complaint: Chest Pain ED Provider: Hiram Garcia Dx/Rx/DC Orders Clinical Impression: Chest pain, History of open heart surgery, Fractured sternal wires Prescriptions: New oxycodone-acetaminophen [Percocet] 5-325 mg tablet 1 tab PO Q6H PRN (Reason: pain) 3 Days Qty: 10 0RF No Action prednisone 20 mg tablet 40 mg PO DAILY 5 Days Qty: 10 0RF fluoxetine 40 mg capsule 80 mg PO DAILY lisinopril 10 mg tablet 10 mg PO DAILY propranolol 20 mg tablet 20 mg PO BID pregabalin 75 mg capsule 75 mg PO BID esomeprazole magnesium [Nexium] 40 mg capsule,delayed release(DR/EC) 40 mg PO BID clobetasol 0.05 % ointment 1 applic topical BID albuterol sulfate 90 mcg/actuation HFA aerosol inhaler 2 puff inhalation Q4H PRN PRN (Reason: wheezing) cholecalciferol (vitamin D3) [Vitamin D3] 25 mcg (1,000 unit) tablet 50 mcg PO DAILY loratadine [Allerclear] 10 mg tablet 10 mg PO DAILY meloxicam 15 mg tablet 15 mg PO DAILY pseudoephedrine HCl 120 mg tablet extended release 120 mg PO BID terbinafine HCl 250 mg tablet 250 mg PO DAILY furosemide 40 mg tablet 40 mg PO BID fluticasone propion-salmeterol 250-50 mcg/dose blister with device 1 ea inhalation BID clopidogrel 75 mg tablet 75 mg PO DAILY furosemide 20 mg tablet 20 mg PO DAILY fluticasone propionate 50 mcg/actuation spray,suspension 1 spray INTRANASAL DAILY aripiprazole 15 mg tablet 15 mg PO DAILY Primary Care Provider: Yamileth Estevez NP Referrals: Yamileth Estevez NP, THEATRICAL AGENT-C [Primary Care Provider] - Activity Restrictions/Additional Instructions: Call and follow-up with your cardiothoracic surgeon at the [facility] tomorrow morning. It is very important that they follow you up in the next 1 to 2 days and go over your CAT scan with you. Return if you are feeling worse, develop a fever or redness to your chest wall. Limited Percocet for pain. What we are trying to determine if your pain is just from the surgery you had versus you are developing an infection which is less likely versus the sternal wire that broke. Print Language: [place] Disposition Disposition: Home, Self Care
--- OUTSIDE RECORDS SUMMARY | 2024-10-20 14:40 | XMS RPT_ITS | CCD ---
Author Organization [facility] Inform ion [facility] Care Team Providers Care Training Analyst Name Role Phone [facility], [facility] Unavailable U navailable Linz, Christopher M Unavailable Unavailable Linz, Christopher M Unavailable Unavailable LINZ, CHRISTOPHER M Unavailable Unavailable LINZ, CHRISTOPHER M Unavailable Unavailable Paul Boland Unavailable Edvin vailable LINZ, CHRISTOPHER M Unavailable Unavailable LINZ, CHRISTOPHER M Unavailable Unavailable LINZ, CHRISTOPHER M Unavailable Unavailable LINZ, CHRISTOPHER M Unavailable Unavailable LINZ, CHRISTOPHER M Unavailable Unavailable LINZ, CHRISTOPHER M Unavailable Unavailable LinzReid Unavailable Unavailable LINZ, CHRISTOPHER M Unavailable Unavailable LINZ, CHRISTOPHER M Unavailable Unavailable FREE, TEXT ENTRY Unavailable Unavailable JOEY PICKETT MD Admitting Unavailable JOEY PICKETT MD Attending Unavailable PATIENT, SELF Referring Unavailable PAUL COLEMAN Primary Care Unavaila ble PROVIDER, UNKNOWN Admitting Unavailable JEF PINEDO Attending Unavailable Free, Text Entry Unavailable Unavailable Maxwell Marin Unavailable Unavailable Pepe Salmon Unavailable Unavailable Pending, Provider Primary Care Unavailable DO PEPE SALMON Attending Unavailab harinder Pending, Provider Primary Care Unavailable Dr. Maxwell Marin Attending Unavailable Unavailable Primary Care Provider UnavailVasquez Gibson NP Primary Care Unavailable Emil Quan Referring UnavailEmil Valenzuela Attending UnavailJorge Mccallum Attending Unavailable Vasquez Brush NP Primary Care Unavailable MONIQUE CA Referring Unavailable VASQUEZ BRUSH Primary Care Unavailable Generic, External Data Provider Primary Care Pro vider Unavailable RIKY CHEW Attending Unavailable UNAI, SHINYA Referring Unavailable VASQUEZ BRUSH Primary Care Unavailable UNAI, SHINYA Referring Unavailable TRILL, VASQUEZ C Primary Care Unavailable UNAI, SHINYA Referring Unavailable TRILL, VASQUEZ C Primary Care Unavailable TRILL, VASQUEZ C Referring Unavailable TRILL, VASQUEZ C Primary Care Unavailable TRILL, VASQUEZ C Primary Care Unavailable TRILL, VASQUEZ C Referring Unavailable TRILL, VASQUEZ C Primary Care Unavailable TRILL, VASQUEZ C Referring Unavailable JACEK, PALMIRA Referring Unavailable CARO STEEN Attending Unavailable TRILL, VASQUEZ C Primary Care Unavailable UNAI, SHINYA Referring Unavailable TRILL, VASQUEZ C Primary Care Unavailable UNAI, SHINYA Referring Unavailable TRILL, VASQUEZ C Primary Care Unavailable TRILL, VASQUEZ C Primary Care Unavailable ANN DANIEL Referring Unavailable JOEY PICKETT A Referring Unavailable JOEY PICKETT Attending Unavailable TRILL, VASQUEZ C Primary Care Unavailable TRILL, VASQUEZ C Referring Unavailable TRILL, VASQUEZ C Primary Care Unavailable MAXWELL MONZON Attending Unavailable UNAI, SHINYA Referring Unavailable TRILL, VASQUEZ C Primary Care Unavailable UNAI, SHINYA Referring Unavailable TRILL, VASQUEZ C Primary Care Unavailable UNAI, SHINYA Referring Unavailable TRILL, VASQUEZ C Primary Care Unavailable TRILL, VASQUEZ C Primary Care Unavailable UNAI, SHINYA Referring Unavailable UNAI, SHINYA Attending Unavailable UNAI, SHINYA Referring Unavailable TRILL, VASQUEZ C Primary Care Unavailable YINKA BRYANT Admitting Unavailable JOEY PICKETT A Referring Unavailable TRILL, VASQUEZ C Primary Care Unavailable JACI SORTO Attending Unavailable TRILL, VASQUEZ C Primary Care Unavailable UNAI, SHINYA Referring Unavailable TRILL, VASQUEZ C Primary Care Unavailable BENIGNO CONTRERAS Attending Unavailable JOEY PICKETT A Referring Unavailable TRILL, VASQUEZ C Primary Care Unavailable LIZA GONZALEZ Attending Unavailable JOEY PICKETT A Referring Unavailable TRILL, VASQUEZ C Primary Care Unavailable UNAI, SHINYA Attending Unavailable TRILL, VASQUEZ C Primary Care Unavailable SLEIK, KHALED MELOUD Referring Unavailable UNAI, SHINYA Referring Unavailable TRILL, VASQUEZ C Primary Care Unavailable TRILL, VASQUEZ C Primary Care Unavailable TRILL, VASQUEZ C Referring Unavailable TRILL, VASQUEZ C Primary Care Unavailable SLEIK, KHALED MELOUD Referring Unavailable REGINO GUTIERREZ Attending UnavailJOSÉ LUIS Gonzalez Admitting Unavailable TRILL, VASQUEZ C Primary Care Unavailable TRILL, VASQUEZ C Primary Care Unavailable LYRIC PARIKH A Referring Unavailable MAYAJACQUELINEANNA Attending Unavailable TRILL, VASQUEZ C Primary Care Unavailable TRILL, VASQUEZ C Attending Unavailable TRILL, VASQUEZ C Primary Care Unavailable TRILL, VASQUEZ C Referring Unavailable TRILL, VASQUEZ C Primary Care Unavailable CRYSTAL GABRIEL Attending Unavailable TRILL, VASQUEZ C Primary Care Unavailable TRILL, AVSQUEZ C Attending Unavailable TRILL, VASQUEZ C Primary Care Unavailable SELF Referring Unavailable TRILL, VASQUEZ C Attending Unavailable TRILL, VASQUEZ C Primary Care Unavailable ANN DANIEL Referring Unavailable TRILL, VASQUEZ C Attending Unavailable TRILL, VASQUEZ C Primary Care Unavailable TRILL, VASQUEZ C Referring Unavailable TRILL, VASQUEZ C Primary Care Unavailable TRILL, VASQUEZ C Referring Unavailable TRILL, VASQUEZ C Primary Care Unavailable LYRIC PARIKH A Attending Unavailable TRILL, VASQUEZ C Primary Care Unavailable TRILL, VASQUEZ C Attending Unavailable TRILL, VASQUEZ C Primary Care Unavailable TRILL, VASQUEZ C Attending Unavailable TRILL, VASQUEZ C Primary Care Unavailable SELF Referring Unavailable TRILL, VASQUEZ C Attending Unavailable TRILL, VASQUEZ C Primary Care Unavailable LYRIC PARIKH A Attending Unavailable TRILL, VASQUEZ C Primary Care Unavailable SELF Referring Unavailable SLEIK, KHALED MELOUD Attending Unavailable TRILL, VASQUEZ C Primary Care Unavailable SLEIK, KHALED MELOUD Referring Unavailable SLEIK, KHALED MELOUD Attending Unavailable SLEIK, KHALED MELOUD Admitting Unavailable Allergies Allergy Classification Reported Allergen(s) Allergy Type Date of Onset Reaction(s) Facility (4 sources) Dust; Translations: [DUST] Propensity to adverse reactions (disorder) 9 [facility] Repository (6 sources) metFORMIN; Translations: [METFORMIN] Drug Allergy 4 Unknown [facility] (1 source) metFORMIN Drug Allergy 5 [facility] Repository Medications Current Medications Medication Drug Class(es) Dates Sig (Normalized) Sig (Original) acetaminophen 325 mg / oxyCODONE hydrochloride 5 mg oral tablet (1 source) Opioid Agonist Start: 09-29-2024 End: 10-02-2024 take 1 tablet by mouth every six hours for pain oxyCODONE-acetamin ophen (Percocet) 5-325 mg tablet Indications: Chest pain, unspecified type Take 1 tablet by mouth every 6 hours if needed for severe pain (7 - 10) for up to 3 days. 10 tablet 09/29/2024 10/02/2024 Active azithromycin 250 mg oral tablet (1 source) Macrolide Antimicrobial Start: 02-13-2022 Zithromax Z-Garett 250 mg oral tablet ; as directed Quantity: 1 Refills: 0 Ordered: 13-Feb-2022 Tania Maxwell Start: 13-Feb-2022 Generic Substitution Allowed Comments: Do not take dairy products, antacids, or iron preparations within one hour of this medication.Finish all this medication unless otherwise directed by prescriber. Comment on above: Do not take dairy pr oducts, antacids, or iron preparations within one hour of this medication.Finish all this medication unless otherwise directed by prescriber. famotidine 40 mg oral tablet (1 source) Histamine-2 Receptor Antagonist take 1 tablet by mouth once daily at bedtime famotidine 40 mg oral tablet ; 1 tab(s) orally once a day (at bedtime) Quantity: 0 Refills: 0 Ordered: 20-Mar-2022 Scarlet Florentino Generic Substitution Allowed fluticasone / vilanterol (1 source) Corticosteroid, beta2-Adrenergic Agonist take 1 puff(s) by inhalation once daily Breo Ellipta 200 mcg-25 mcg/inh inhalation powder ; 1 puff(s) inhaled once a day Quantity: 0 Refills: 0 Ordered: 20-Mar-2022 Scarlet Florentino Generic Substitution Allowed pantoprazole 40 mg delayed release oral tablet (1 source) Proton Pump Inhibitor take 1 tablet by mouth once daily Protonix 40 mg oral delayed release tablet ; 1 tab(s) orally once a day Quantity: 0 Refills: 0 Ordered: 24-Dec-2017 Alicia Steiner Generic Substitution Allowed sucralfate 1000 mg oral tablet (1 source) Aluminum Complex Start: 03-20-2022 End: 04-08-2022 take 1 tablet by mouth four times daily at bedtime Carafate 1 g oral tablet ; 1 tab(s) orally 4 times a day (before meals and at bedtime) Quantity: 80 Refills: 0 Ordered: 20-Mar-2022 Pepe Salmon Start: 20-Mar-2022 End: 18-Feb-2023 Generic Substitution Allowed Comments: Do not take dairy products, antacids, or iron preparations within one hour of this medication.It is very important that you take or use this exactly as directed. Do not skip doses or discontinue unless directed by your doctor.Take medication on an empty stomach 1 hour before or 2 to 3 hours after a meal unless otherwise directed by your doctor. Comment on above: Do not take dairy pr oducts, antacids, or iron preparations within one hour of this medication.It is very important that you take or use this exactly as directed. Do not skip doses or discontinue unless directed by your doctor.Take medication on an empty stomach 1 hour before or 2 to 3 hours after a meal unless otherwise directed by your doctor. Completed/Discontinued Medications Medication Drug Class(es) Dates Sig (Normalized) Sig (Original) [id number] 200 actuat albuterol 0.09 mg/actuat metered dose inhaler (2 sources) beta2-Adrenergic Agonist Start: 01-21-2018 albuterol sulfate 90 mcg/actuation inhaler Inhale 2 Puffs into the lungs 0 01/21/2018 Active take 2 puff(s) by in halation every four hours as needed albuterol 90 mcg/inh inhalation aerosol ; 2 puff(s) inhaled every 4 hours, As Needed Quantity: 0 Refills: 0 Ordered: 20-Mar-2022 Scarlet Florentino Generic Substitution Allowed Comment on above: Inhale 2 Puffs into the lungs ARIPiprazole 20 mg oral tablet (2 sources) Atypical Antipsychotic Start: 12-06-19 22 take 1 tablet by mouth once daily ARIPiprazole (ABILIFY) 20 mg tablet Indications: Severe episode of recurrent major depressive disorder, without psychotic features ([facility]) , LEONARD (generalized anxiety disorder) Take 1 Tablet by mouth once daily for 90 days 90 Tablet 0 12/05/2021 Active Comment on above: Take 1 Tablet by once daily for 90 days Budesonide / formoterol (1 source) Corticosteroid, beta2-Adrenergic Agonist Start: 08-15-19 18 budesonide-formoter ol (SYMBICORT) 80-4.5 mcg/actuation inhaler Inhale 2 Puffs into the lungs 0 08/14/2017 Active Comment on above: Inhale 2 Puffs into the lungs ergocalciferol 1.25 mg oral capsule (1 source) Provitamin D2 Compound Start: 03-16-19 take 1 capsule by mouth every week ergocalciferol, vitamin D2, (VITAMIN D2) 1,250 mcg (50,000 unit) capsule TAKE 1 CAPSULE BY MOUTH ONE TIME A WEEK. 0 03/16/2020 Active Comment on above: TAKE 1 CAPSULE BY MO UTH ONE TIME A WEEK. esomeprazole 40 mg delayed release oral capsule (2 sources) Proton Pump Inhibitor Start: 12-02-19 esomeprazole magnesium (NEXIUM) [address] capsule FLUoxetine 40 mg oral capsule (3 sources) Serotonin Reuptake Inhibitor Start: 12-06-19 take 2 capsules by mouth once daily FLUoxetine (PROZAC) 40 mg capsule Indications: Severe episode of recurrent major depressive disorder, without psychotic features ([facility]) , LEONARD (generalized anxiety disorder) , Bulimia Take 2 Capsules by mouth once daily for 90 days 180 Capsule 0 12/05/2021 Active take 80 mg by mouth once daily P ROzac ; 80 milligram(s) orally once a day Quantity: 0 Refills: 0 Ordered: 20-Mar-2022 Scarlet Florentino Generic Substitution Allowed take 1 tablet by santy th once daily in the morning FLUoxetine 60 mg oral tablet ; 1 tab(s) orally once a day (in the morning) Quantity: 0 Refills: 0 Ordered: 18-Dec-2017 Alicia Steiner Generic Substitution Allowed Comment on above: Take 2 Capsules by m out once daily for 90 days fluticasone propionate 0.05 mg/actuat metered dose nasal spray (2 sources) Corticosteroid Start: take 2 spray(s) nasal route once daily fluticasone propionate (FLONASE) 50 mcg/actuation nasal spray SPRAY 2 SPRAYS INTO EACH NOSTRIL EVERY DAY 0 08/15/2019 Active take 1 spray(s) nasal route once daily Flonase 50 mcg/inh nasal spray ; 1 spray(s) in each nostril once a day Quantity: 0 Refills: 0 Ordered: 20-Mar-2022 Scarlet Florentino Generic Substitution Allowed Comment on above: SPRAY 2 SPRAYS INTO EACH NOSTRIL EVERY DAY 1 ml HYDROmorphone hydrochloride 1 mg/ml cartridge (1 source) Opioid Agonist Start: 09-30-19 End: 09-30-19 1 mg, intravenous, Once, On Sun09/29/24 at 0320, For 1 dose iohexol (OMNIPaque) 350 mg iodine/mL solution 75 mL (1 source) Start: 09-30-19 End: 09-30-19 75 mL, intravenous, Once in imaging, Starting on Sun09/29/24 at 0124, For 1 dose levonorgestrel 0.367184 mg/hr intrauterine system (1 source) Progestin, Progestin-containing Intrauterine Device levonorgestrel (MIRENA) 20 mcg/24 hr (5 years) IUD Place 1 Each into the uterus 0 Active Comment on above: Place 1 Each into th e uterus Medrol Dosepak 4 mg oral tablet (1 source) Start: 02-14-20 Medrol Dosepak 4 mg oral tablet ; 1 cap(s) orally Quantity: 1 Refills: 0 Ordered: 13-Feb-2022 Maxwell Marin Start: 13-Feb-2022 Generic Substitution Allowed Comments: It is very important that you take or use this exactly as directed. Do not skip doses or discontinue unless directed by your doctor.Obtain medical advice before taking any non-prescription drugs as some may affect the action of this medication.Take with food or milk. Comment on above: It is very important that you take or use this exactly as directed. Do not skip doses or discontinue unless directed by your doctor.Obtain medical advice before taking any non-prescription drugs as some may affect the action of this medication.Take with food or milk. 1 ml morphine sulfate 4 mg/ml injection (1 source) Opioid Agonist Start: 09-30-19 End: 09-30-19 4 mg, intravenous, Once, On Sun09/29/24 at 0025, For 1 dose 2 ml orphenadrine citrate 30 mg/ml injection (1 source) Muscle Relaxant Start: 09-30-19 End: 09-30-19 60 mg, intravenous, Once, On Sun09/29/24 at 0435, For 1 dose pregabalin 150 mg oral capsule (2 sources) Start: 05-18-19 take 1 capsule by mouth twice daily pregabalin (LYRICA) 150 mg capsule TAKE 1 CAPSULE BY MOUTH TWICE DAILY FOR 30 DAYS. 0 05/17/2021 Active take 1 capsule by mouth twice da robby Lyrica 225 mg oral capsule ; 1 cap(s) orally 2 times a day Quantity: 0 Refills: 0 Ordered: 18-Dec-2017 Alicia Steiner Generic Substitution Allowed Comment on above: TAKE 1 CAPSULE BY [facility] TWICE DAILY FOR 30 DAYS. propranolol hydrochloride 20 mg oral tablet (3 sources) beta-Adrenergic Zander Start: 05-17-2017 propranolol (INDERAL) 20 mg tablet Take 20 mg by mouth migraines 0 05/17/2017 Active Comment on above: Take 20 mg by mouth migraines Problems Active Problems Problem Classification Problem Date Documented Date Episodic/Chronic Anxiety disorders (3 sources) Generalized anxiety disorder; Translations: [Generalized anxiety disorder] Onset: 04-11-2017 09-30-2018 Chronic Anxiety disorders (1 source) Anxiety disorder due to known physiological condition; Translations: [Anxiety disorder due to known physiological condition] Onset: 09-10-2024 Episodic Aortic; peripheral; and visceral artery aneurysms (2 sources) Dissection of vertebral artery; Translations: [Thoracic aortic ectasia] Onset: 05-16-2023 Chronic Asthma (4 sources) Asthmatic bronchitis; Translations: [Asthma, unspecified type, unspecified] Onset: 02-13-2022 02-13-2022 Chronic Cardiac and circulatory congenital anomalies (4 sources) Bicuspid aortic valve; Translations: [Congenital insufficiency of aortic valve] Onset: 02-09-2017 03-18-2018 Chronic Cardiac and circulatory congenital anomalies (1 source) Personal history of (corrected) congenital malformations of heart and circulatory system; Translations: [History of surgical closure of patent foramen ovale (PFO)] Onset: 09-18-2024 Episodic Congestive heart failure; nonhypertensive (2 sources) Chronic diastolic (congestive) heart failure; Translations: [Heart failure, unspecified] Onset: 07-19-2024 Chronic Diseases of white blood cells (1 source) Elevated white blood cell count, unspecified; Translations: [Leukocytosis, unspecified type] Onset: 07-19-2024 Chronic Esophageal disorders (2 sources) Gastro-esophageal reflux disease without esophagitis; Translations: [Gastroesophageal reflux disease] Onset: 07-31-2001 03-18-2018 Chronic Gastritis and duodenitis (2 sources) Acute gastritis; Translations: [Acute gastritis, without mention of hemorrhage] Onset: 03-20-2022 03-20-2022 Episodic Headache; including migraine (3 sources) Migraine without aura, not refractory ; Translations: [Migraine without aura, not intractable, without status migrainosus] Onset: 01-17-2016 03-15-2018 Chronic Heart valve disorders (8 sources) Nonrheumatic aortic (valve) stenosis; Translations: [Aortic valve stenosis] Onset: 07-30-2019 07-30-2019 Chronic Menstrual disorders (1 source) Dysmenorrhea; Translations: [Dysmenorrhea, unspecified] Onset: 01-17-2016 09-30-2018 Chronic Miscellaneous mental health disorders (1 source) Bulimia nervosa; Translations: [Bulimia nervosa] Onset: 03-19-2015 03-18-2018 Chronic Mood disorders (4 sources) Severe recurrent major depression without psychotic features; Translations: [Major depressive disorder, recurrent severe without psychotic features] Onset: 01-29-2018 01-29-2018 Chronic Mood disorders (1 source) Mood disorders; Translations: [Depression, unspecified] Onset: 03-20-2022 Noninfectious gastroenteritis (2 sources) Noninfective gastroenteritis and colitis, unspecified; Translations: [Nonspecific colitis] Onset: 07-19-2024 Episodic Nonspecific chest pain (8 sources) Chest pain; Translations: [Chest pain, unspecified] Onset: 03-20-2022 03-20-2022 Episodic Osteoarthritis (2 sources) Primary osteoarthritis, right hand; Translations: [Primary osteoarthritis, left hand] Onset: 12-26-2023 Chronic Other aftercare (1 source) Other long goods drier (current) drug therapy; Translations: [Other long goods drier (current) drug therapy] Onset: 03-20-2022 Episodic Other aftercare (1 source) Encounter for follow-up examination after completed treatment for conditions other than malignant neoplasm; Translations: [Surgery follow-up] Onset: 09-18-2024 Episodic Other and ill-defined cerebrovascular disease (2 sources) Cerebral aneurysm, nonruptured; 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)] Onset: 04-24-2024 Chronic Other circulatory disease (1 source) Raynaud's disease; Translations: [Raynaud's syndrome without gangrene] Onset: 01-14-2016 03-15-2018 Chronic Other circulatory disease (1 source) Disorder of arteries and arterioles, unspecified; Translations: [Disorder of artery or arteriole] Onset: 09-01-2024 Chronic Other connective tissue disease (1 source) Fibromyalgia; Translations: [Fibromyalgia] Onset: 07-19-2024 Episodic Other lower respiratory disease (2 sources) Shortness of breath; Translations: [Shortness of breath] Onset: 09-01-2024 Episodic Other nervous system disorders (1 source) Narcolepsy without cataplexy ; Translations: [Narcolepsy without cataplexy] Onset: 02-09-2017 03-15-2018 Chronic Other nervous system disorders (1 source) Narcolepsy; Translations: [Narcolepsy without cataplexy] Onset: 07-30-2019 07-30-2019 Chronic Other nervous system disorders (2 sources) Other chronic pain; Translations: [Chronic bilateral low back pain without sciatica] Onset: 04-26-2022 Chronic Other nervous system disorders (1 source) Other acute postprocedural pain; Translations: [Pain, postoperative, acute] Onset: 09-01-2024 Episodic Other nutritional; endocrine; and metabolic disorders (1 source) Obese class I; Translations: [Obesity, unspecified] Onset: 02-09-2017 09-30-2018 Chronic Other nutritional; endocrine; and metabolic disorders (2 sources) Morbid (severe) obesity due to excess calories; Translations: [Severe obesity due to excess calories with serious comorbidity and body mass index (BMI) 120% of 95th percentile to less than 140% of 95th percentile for age in pediatric patient (HCC)] Onset: 05-11-2021 Chronic Other skin disorders (2 sources) Generalized hyperhidrosis; Translations: [Generalized hyperhidrosis] Onset: 03-20-2022 Episodic Other upper respiratory disease (1 source) Allergic rhinitis; Translations: [Allergic rhinitis, unspecified] Onset: 03-05-2009 09-30-2018 Chronic Other upper respiratory infections (1 source) Chronic sinusitis, unspecified; Translations: [Chronic congestion of paranasal sinus] Onset: 02-27-2024 Chronic Paralysis (2 sources) Cerebral palsy 03-20-2022 Chronic Comment on above: CP Roya-; endo-; and myocarditis; cardiomyopathy (except that caused by tuberculosis or sexually transmitted disease) (1 source) Endocarditis, valve unspecified; Translations: [Valvular heart disease] Onset: 08-08-2024 Chronic Prolapse of female genital organs (1 source) Disorder of rectum; Translations: [Rectocele] 04-09-2023 Chronic Residual codes; unclassified (1 source) Obstructive sleep apnea (adult) (pediatric); Translations: [ROBIN (obstructive sleep apnea)] Onset: 01-16-2024 Chronic Residual codes; unclassified (1 source) Pain, unspecified; Translations: [Pain, unspecified] Onset: 04-10-2018 Screening and history of mental health and substance abuse codes (1 source) Personal history of nicotine dependence; Translations: [Personal history of nicotine dependence] Onset: 03-20-2022 Episodic Spondylosis; intervertebral disc disorders; other back problems (1 source) Spondylosis without myelopathy or radiculopathy, lumbar region; Translations: [Lumbar spondylosis] Onset: 02-28-2024 Chronic Substance-related disorders (4 sources) Nicotine dependence, unspecified, uncomplicated; Translations: [Nicotine dependence, unspecified, in remission] Onset: 04-12-2018 06-13-2021 Chronic Unclassified (2 sources) BRONCITIS, COUGH, CONGESTION 02-13-2022 Comment on above: BRONCITIS, COUGH, CO NGESTION Unclassified (1 source) Gastritis, acute 03-20-2022 Unclassified (1 source) Chest pain in adult 03-20-2022 Unclassified (1 source) Contact with and (suspected) exposure to COVID-19; Translations: [Contact with and (suspected) exposure to COVID-19] Onset: 02-13-2022 Unclassified (1 source) Cough, unspecified; Translations: [Cough, unspecified] Onset: 02-13-2022 Unclassified (1 source) Severe obesity due to excess calories with serious comorbidity and body mass index (BMI) 120% of 95th percentile to less than 140% of 95th percentile for age in pediatric patient (HCC); Translations: [Severe obesity due to excess calories with serious comorbidity and body mass index (BMI) 120% of 95th percentile to less than 140% of 95th percentile for age in pediatric patient (HCC)] Onset: 09-04-2024 Unclassified (1 source) Chronic bilateral low back pain without sciatica; Translations: [Chronic bilateral low back pain without sciatica] Onset: 04-26-2022 Unclassified (1 source) Bulimia nervosa, unspecified severity; Translations: [Bulimia nervosa, unspecified severity] Onset: 02-24-2024 Viral infection (1 source) Condyloma acuminatum of the anogenital region; Translations: [Anogenital (venereal) warts] 04-09-2023 Episodic Past or Other Problems Problem Classification Problem Date Documented Date Episodic/Chronic Anal and rectal conditions (2 sources) Rectal prolapse; Translations: [Rectal prolapse] Onset: 04-11-2018 Episodic Chronic obstructive pulmonary disease and bronchiectasis (1 source) Bronchitis, not specified as acute or chronic; Translations: [Bronchitis] Onset: 02-07-2024 Episodic Diabetes mellitus without complication (2 sources) Prediabetes; Translations: [Prediabetes] Onset: 05-19-2021 Episodic Diseases of mouth; excluding dental (2 sources) Other lesions of oral mucosa; Translations: [Mouth sores] Onset: 02-27-2024 Episodic E Codes: Fall (1 source) Unspecified fall, initial encounter; Translations: [Fall in home, initial encounter] Onset: 01-16-2024 Episodic E Codes: Place of occurrence (1 source) Unspecified place in unspecified non-institutional (private) residence as the place of occurrence of the external cause; Translations: [Fall in home, initial encounter] Onset: 01-16-2024 Episodic Genitourinary symptoms and ill-defined conditions (4 sources) Increased frequency of urination; Translations: [Frequency of micturition] Onset: 08-29-2023 04-09-2023 Episodic Heart valve disorders (1 source) Heart murmur; Translations: [Cardiac murmur, unspecified] Onset: 07-30-2019 07-30-2019 Episodic Malaise and fatigue (1 source) Other fatigue; Translations: [Fatigue, unspecified type] Onset: 05-01-2023 Episodic Nutritional deficiencies (1 source) Cobalamin deficiency; Translations: [Deficiency of other specified B group vitamins] Onset: 06-23-2009 03-18-2018 Episodic Other aftercare (2 sources) Patient encounter status; Translations: [Encounter for therapeutic drug level monitoring] Onset: 02-09-2017 09-30-2018 Episodic Other circulatory disease (2 sources) Other specified symptoms and signs involving the circulatory and respiratory systems; Translations: [Oth symptoms and signs involving the circ and resp systems] Onset: 02-13-2022 Episodic Other connective tissue disease (1 source) Fibromyalgia; Translations: [Fibromyalgia] Onset: 07-30-2019 07-30-2019 Episodic Other connective tissue disease (1 source) Pain in right leg; Translations: [Bilateral leg pain] Onset: 04-26-2022 Episodic Other connective tissue disease (1 source) Pain in left leg; Translations: [Bilateral leg pain] Onset: 04-26-2022 Episodic Other connective tissue disease (1 source) Other symptoms and signs involving the musculoskeletal system; Translations: [Popping of right knee joint] Onset: 01-16-2024 Episodic Other female genital disorders (1 source) History of endometriosis; Translations: [Personal history of other diseases of the female genital tract] Onset: 01-28-2015 03-15-2018 Episodic Other injuries and conditions due to external causes (1 source) Unspecified injury of right lower leg, initial encounter; Translations: [Injury of right knee, initial encounter] Onset: 01-16-2024 Episodic Other lower respiratory disease (2 sources) Wheezing; Translations: [Wheezing] Onset: 02-13-2022 Episodic Other lower respiratory disease (1 source) Other specified respiratory disorders; Translations: [Congestion of respiratory tract] Onset: 06-19-2024 Episodic Other lower respiratory disease (1 source) Orthopnea; Translations: [Orthopnea] Onset: 06-24-2024 Episodic Other nervous system disorders (1 source) H/O: migraine; Translations: [Personal history of other diseases of the nervous system and sense organs] Onset: 04-03-2018 09-30-2018 Episodic Other non-traumatic joint disorders (1 source) Other instability, right knee; Translations: [Instability of right knee joint] Onset: 01-16-2024 Episodic Other non-traumatic joint disorders (1 source) Pain in right knee; Translations: [Chronic pain of both knees] Onset: 04-26-2022 Episodic Other non-traumatic joint disorders (1 source) Pain in left knee; Translations: [Chronic pain of both knees] Onset: 04-26-2022 Episodic Other nutritional; endocrine; and metabolic disorders (2 sources) Abnormal weight gain; Translations: [Weight gain] Onset: 01-11-2024 Episodic Other screening for suspected conditions (not mental disorders or infectious disease) (2 sources) Other abnormal findings on diagnostic imaging of central nervous system; Translations: [Encounter for screening mammogram for malignant neoplasm of breast] Onset: 04-24-2024 Episodic Other upper respiratory infections (1 source) Acute upper respiratory infection, unspecified; Translations: [Upper respiratory tract infection, unspecified type] Onset: 06-24-2024 Episodic Residual codes; unclassified (3 sources) Localized edema; Translations: [Bilateral leg edema] Onset: 06-19-2024 Episodic Residual codes; unclassified (1 source) Edema, unspecified; Translations: [Water retention] Onset: 06-27-2024 Episodic Spondylosis; intervertebral disc disorders; other back problems (1 source) Spinal stenosis, lumbar region with neurogenic claudication; Translations: [Spinal stenosis of lumbar region with neurogenic claudication] Onset: 02-28-2024 Episodic Results Test Name Value Interpretation Reference Range Facility [facility] Basic metabolic 2000 panelon 09-29-2024 Anion gap [Moles/Vol] 13 mmol/L 10 - 2 0 mmol/L [facility] Calcium [Mass/Vol] 8.9 mg/dL 8.6 - 10. 3 mg/dL [facility] Chloride [Moles/Vol] 102 mmol/L 98 - 10 7 mmol/L [facility] CO2 [Moles/Vol] 27 mmol/L 21 - 32 mmol/L [facility] Creatinine [Mass/Vol] 0.69 mg/dL 0.50 - 1.05 mg/dL [facility] eGFR - PINF [facility] Comment on above: Calculations of tsering mated GFR are performed using the 2020 CKD-EPI Study Refit equation without the race variable for the IDMS-Traceable creatinine methods. https://jasn.asnjournals.org/content//ASN.15560 96012 Glucose [Mass/Vol] 139 mg/dL High 74 - 99 mg/dL [facility] Interpretation and review of laboratory results Abnormal [facility] Potassium [Moles/Vol] 3.7 mmol/L 3.5 - 5.3 mmol/L [facility] Sodium [Moles/Vol] 138 mmol/L 136 - 145 mmol/L [facility] Urea nitrogen [Mass/Vol] 14 mg/dL 6 - 23 mg/dL [facility] Anion gap [Moles/Vol] 13 mmol/L Normal 10-20 [facility] Comment on above: Performed By: #### 2 4321-2 #### MAXWELL Guillaume ([id number]) [facility] ([facility]) [address] [place] [address] Calcium [Mass/Vol] 8.9 mg/dL Normal 8.6-10.3 [facility] Comment on above: Performed By: #### 2 4321-2 #### MAXWELL Guillaume ([id number]) [facility] ([facility]) [address] [facility] [address] [facility] [address] Chloride [Moles/Vol] 102 mmol/L Normal 98-107 [facility] Comment on above: Performed By: #### 2 4321-2 #### MAXWELL Guillaume ([id number]) [facility] ([facility]) [address] [facility] [address] [facility] [address] CO2 [Moles/Vol] 27 mmol/L Normal 21-32 [facility] Comment on above: Performed By: #### 2 4321-2 #### MAXWELL Guillaume ([id number]) [facility] ([facility]) [address] [facility] [address] Creatinine [Mass/Vol] 0.69 mg/dL Normal 0.50-1.05 [facility] Comment on above: Performed By: #### 2 4321-2 #### MAXWELL Guillaume ([id number]) [facility] ([facility]) [address] [facility] [address] Glomerular filtration rate >90 Normal >60 [facility] Comment on above: Result Comment: Calc ulations of estimated GFR are performed using the 2020 CKD-EPI Study Refit equation without the race variable for the IDMS-Traceable creatinine methods. https://jasn.asnjournals.org/content/early//ASN.86767 81196 Performed By: #### 2 4321-2 #### MAXWELL Guillaume ([id number]) [facility] ([facility]) [address] [place] [address] Glucose [Mass/Vol] 139 mg/dL High 74-99 [facility] Comment on above: Performed By: #### 2 4321-2 #### MAXWELL Guillaume ([id number]) [facility] ([facility]) [address] [place] [address] Potassium [Moles/Vol] 3.7 mmol/L Normal 3.5-5.3 [facility] Comment on above: Performed By: #### 2 4321-2 #### MAXWELL Guillaume ([id number]) [facility] ([facility]) [address] [place] [address] Sodium [Moles/Vol] 138 mmol/L Normal 136-145 [facility] Comment on above: Performed By: #### 2 4321-2 #### MAXWELL Guillaume ([id number]) [facility] ([facility]) [address] [place] [address] Urea nitrogen [Mass/Vol] 14 mg/dL Normal 6-23 [facility] Comment on above: Performed By: #### 2 4321-2 #### MAXWELL Guillaume ([id number]) [facility] ([facility]) [address] [place] [address] CBC W Auto Differential pane l (Bld)on 09-29-2024 Basophils (Bld) [#/Vol] 0.02 10*3/uL [facility] Basophils/100 WBC (Bld) 0.2 % 0.0 - 2.0 % [facility] Eosinophils (Bld) [#/Vol] 0.31 10*3/uL [facility] Eosinophils/100 WBC (Bld) 3.7 % 0.0 - 6.0 % [facility] Erythrocyte distribution width (RBC) [Ratio] 14.4 % 11.5 - 14.5 % [facility] Hematocrit (Bld) [Volume fraction] 32.8 % Low 36.0 - 46.0 % [facility] Hemoglobin (Bld) [Mass/Vol] 10.4 g/dL Low 12.0 - 16.0 g/dL [facility] Immature granulocytes (Bld) [#/Vol] 0.04 10*3/uL [facility] Immature granulocytes/100 WBC (Bld) 0.5 % 0.0 - 0.9 % [facility] Comment on above: Immature Granulocyte Count (IG) includes promyelocytes, myelocytes and metamyelocytes but does not include bands. Percent differential counts (%) should be interpreted in the context of the absolute cell counts (cells/UL). Interpretation and review of laboratory results Abnormal [facility] Lymphocytes (Bld) [#/Vol] 2.12 10*3/uL [facility] Lymphocytes/100 WBC (Bld) 25.5 % 13.0 - 44.0 % [facility] MCH (RBC) [Entitic mass] 28.2 pg 26.0 - 34.0 pg [facility] MCHC (RBC) [Mass/Vol] 31.7 g/dL Low 32.0 - 36.0 g/dL [facility] MCV (RBC) [Entitic vol] 89 fL 80 - 100 fL [facility] Monocytes (Bld) [#/Vol] 0.49 10*3/uL [facility] Monocytes/100 WBC (Bld) 5.9 % 2.0 - 10.0 % [facility] Neutrophils (Bld) [#/Vol] 5.32 10*3/uL [facility] Comment on above: Percent differential counts (%) should be interpreted in the context of the absolute cell counts (cells/uL). Neutrophils/100 WBC (Bld) 64.2 % 40.0 - 80.0 % [facility] Nucleated RBC/100 WBC (Bld) [Ratio] 0.0 % [facility] Platelets (Bld) [#/Vol] 531 10*3/uL High [facility] RBC (Bld) [#/Vol] 3.69 10*6/uL Low [facility] WBC (Bld) [#/Vol] 8.3 10*3/uL [facility] Basophils (Bld) [#/Vol] 0.02 x10*3/uL Normal 0.00-0.10 [facility] Comment on above: Performed By: #### 5 7021-8 #### MAXWELL Guillaume ([id number]) [facility] ([facility]) [address] [facility] [address] Basophils/100 WBC (Bld) 0.2 % Normal 0.0-2.0 [facility] Comment on above: Performed By: #### 5 7021-8 #### MAXWELL Guillaume ([id number]) [facility] ([facility]) [address] [place] [address] Eosinophils (Bld) [#/Vol] 0.31 x10*3/uL Normal 0.00-0.70 [facility] Comment on above: Performed By: #### 5 7021-8 #### MAXWELL Guillaume ([id number]) [facility] ([facility]) [address] [place] [address] Eosinophils/100 WBC (Bld) 3.7 % Normal 0.0-6.0 [facility] Comment on above: Performed By: #### 5 7021-8 #### MAXWELL Guillaume ([id number]) [facility] ([facility]) [address] [place] [address] Erythrocyte distribution width (RBC) [Ratio] 14.4 % Normal 11.5-14.5 [facility] Comment on above: Performed By: #### 5 7021-8 #### MAXWELL Guillaume ([id number]) [facility] ([facility]) [address] [place] [address] Hematocrit (Bld) [Volume fraction] 32.8 % Low 36.0-46.0 [facility] Comment on above: Performed By: #### 5 7021-8 #### MAXWELL Guillaume ([id number]) [facility] ([facility]) [address] [place] [address] Hemoglobin (Bld) [Mass/Vol] 10.4 g/dL Low 12.0-16.0 [facility] Comment on above: Performed By: #### 5 7021-8 #### MAXWELL Guillaume ([id number]) [facility] ([facility]) [address] [place] [address] Immature granulocytes (Bld) [#/Vol] 0.04 x10*3/uL Normal 0.00-0.70 [facility] Comment on above: Performed By: #### 5 7021-8 #### MAXWELL Guillaume ([id number]) [facility] ([facility]) [address] [place] [address] Immature granulocytes/100 WBC (Bld) 0.5 % Normal 0.0-0.9 [facility] Comment on above: Result Comment: Marina ture Granulocyte Count (IG) includes promyelocytes, myelocytes and metamyelocytes but does not include bands. Percent differential counts (%) should be interpreted in the context of the absolute cell counts (cells/UL). Performed By: #### 5 7021-8 #### MAXWELL Guillaume ([id number]) [facility] ([facility]) [address] [place] [address] Lymphocytes (Bld) [#/Vol] 2.12 x10*3/uL Normal 1.20-4.80 [facility] Comment on above: Performed By: #### 5 7021-8 #### MAXWELL Guillaume ([id number]) [facility] ([facility]) [address] [place] [address] Lymphocytes/100 WBC (Bld) 25.5 % Normal 13.0-44.0 [facility] Comment on above: Performed By: #### 5 7021-8 #### MAXWELL Guillaume ([id number]) [facility] ([facility]) [address] [place] [address] MCH (RBC) [Entitic mass] 28.2 pg Normal 26.0-34.0 [facility] Comment on above: Performed By: #### 5 7021-8 #### MAXWELL Guillaume ([id number]) [facility] ([facility]) [address] [place] [address] MCHC (RBC) [Mass/Vol] 31.7 g/dL Low 32.0-36.0 [facility] Comment on above: Performed By: #### 5 7021-8 #### MAXWELL Guillaume ([id number]) [facility] ([facility]) [address] [place] [address] MCV (RBC) [Entitic vol] 89 fL Normal 80-100 [facility] Comment on above: Performed By: #### 5 7021-8 #### MAXWELL Guillaume ([id number]) [facility] ([facility]) [address] [place] [address] Monocytes (Bld) [#/Vol] 0.49 x10*3/uL Normal 0.10-1.00 [facility] Comment on above: Performed By: #### 5 7021-8 #### MAXWELL Guillaume ([id number]) [facility] ([facility]) [address] [place] [address] Monocytes/100 WBC (Bld) 5.9 % Normal 2.0-10.0 [facility] Comment on above: Performed By: #### 5 7021-8 #### MAXWELL Guillaume ([id number]) [facility] ([facility]) [address] [place] [address] Neutrophils (Bld) [#/Vol] 5.32 x10*3/uL Normal 1.20-7.70 [facility] Comment on above: Result Comment: Perc ent differential counts (%) should be interpreted in the context of the absolute cell counts (cells/uL). Performed By: #### 5 7021-8 #### MAXWELL Guillaume ([id number]) [facility] ([facility]) [address] [place] [address] Neutrophils/100 WBC (Bld) 64.2 % Normal 40.0-80.0 [facility] Comment on above: Performed By: #### 5 7021-8 #### MAXWELL Guillaume ([id number]) [facility] ([facility]) [address] [place] [address] Nucleated RBC/100 WBC (Bld) [Ratio] 0.0 /100 WBCs Normal 0.0-0.0 [facility] Comment on above: Performed By: #### 5 7021-8 #### MAXWELL Guillaume ([id number]) [facility] ([facility]) [address] [place] [address] Platelets (Bld) [#/Vol] 531 x10*3/uL High 150-450 [facility] Comment on above: Performed By: #### 5 7021-8 #### MAXWELL Guillaume ([id number]) [facility] ([facility]) [address] [place] [address] RBC (Bld) [#/Vol] 3.69 x10*6/uL Low 4.00-5.20 [facility] Comment on above: Performed By: #### 5 7021-8 #### MAXWELL Guillaume ([id number]) [facility] ([facility]) [address] [place] [address] WBC (Bld) [#/Vol] 8.3 x10*3/uL Normal 4.4-11.3 [facility] Comment on above: Performed By: #### 5 7021-8 #### MAXWELL Guillaume ([id number]) [facility] ([facility]) [address] [place] [address] CT ANGIO CHEST FOR PULMONARY EMBOLISMon 09-29-2024 CT ANGIO CHEST FOR PULMONARY EMBOLISM Interpreted By: Prasanth Villavicencio, STUDY: CT ANGIO CHEST FOR PULMONARY EMBOLISM; 09/29/2024 1:24 am INDICATION: Signs/Symptoms:Pleuritic chest pain status post sternotomy pain to area concern for possible complication or PE. Status post aortic valve replacement 2 weeks ago COMPARISON: None. ACCESSION NUMBER(S): [id number] ORDERING CLINICIAN: RIKY CHEW TECHNIQUE: Helical data acquisition of the chest was obtained after intravenous administration of 75 mL of Omnipaque 350. Images were reformatted in axial, coronal, and sagittal planes. Axial and coronal MIPS were reconstructed and reviewed. FINDINGS: HEART AND VESSELS: No acute pulmonary embolism to the proximal segmental arterial level. Evaluation distally is limited by motion artifact. Main pulmonary artery and its branches are normal in caliber. The thoracic aorta is of normal course and caliber without vascular calcifications. 2 vessel arch anatomy, a normal variant. Postsurgical changes of aortic valve repair. Midline sternotomy wires noted. There is mild retrosternal soft tissue stranding and fluid likely relate to recent surgery. A discrete rim enhancing fluid collection is not identified. No locules of free air are present. No coronary artery calcifications are seen.The study is not optimized for evaluation of coronary arteries. The cardiac chambers are not enlarged. Trace pericardial fluid. MEDIASTINUM AND RUTHIE, LOWER NECK AND AXILLA: Coarse calcifications noted in the right lobe of the thyroid gland. No evidence of thoracic lymphadenopathy by CT criteria. Esophagus appears within normal limits as seen. LUNGS AND AIRWAYS: The trachea and central airways are patent. No endobronchial lesion. Respiratory motion artifact limits evaluation of the lung parenchyma. No consolidation, effusion or pneumothorax. UPPER ABDOMEN: The visualized subdiaphragmatic structures demonstrate no remarkable findings. CHEST WALL AND OSSEOUS STRUCTURES: Midline sternotomy wires noted. Subcutaneous soft tissue stranding overlying the sternum with ill-defined fluid likely related to recent surgery. A discrete fluid collection is not identified. Multilevel degenerative changes are present. IMPRESSION: 1. No acute pulmonary embolism to the segmental arterial level. 2. Postsurgical changes of aortic valve repair. Midline sternotomy wires noted. There is mild retrosternal soft tissue stranding and fluid likely and mild stranding of the subcutaneous soft tissues overlying the sternum. Findings likely relate to recent surgery. A discrete rim enhancing fluid collection is not identified. No locules of free air are present. 3. Additional findings as noted above. MACRO: None Signed by: Prasanth Villavicencio 09/29/2024 2:13 AM Dictation workstation: [id number] [facility] CT Chest W contrast IV and C T angiogram Pulmonary arteries for pulmonary embolus W contrast Deepak 09-29-2024 1. No acute pulmonar y embolism to the segmental arterial level. 2. Postsurgical changes of aortic valve repair. Midline sternotomy wires noted. There is mild retrosternal soft tissue stranding and fluid likely and mild stranding of the subcutaneous soft tissues overlying the sternum. Findings likely relate to recent surgery. A discrete rim enhancing fluid collection is not identified. No locules of free air are present. 3. Additional findings as noted above. MACRO: None Signed by: Prasanth Villavicencio 09/29/2024 2:13 AM Dictation workstation: [id number] [facility] Interpreted By: Prasanth Alaniz, STUDY: CT ANGIO CHEST FOR PULMONARY EMBOLISM; 09/29/2024 1:24 am INDICATION: Signs/Symptoms:Pleuritic chest pain status post sternotomy pain to area concern for possible complication or PE. Status post aortic valve replacement 2 weeks ago COMPARISON: None. ACCESSION NUMBER(S): [id number] ORDERING CLINICIAN: RIKY CHEW TECHNIQUE: Helical data acquisition of the chest was obtained after intravenous administration of 75 mL of Omnipaque 350. Images were reformatted in axial, coronal, and sagittal planes. Axial and coronal MIPS were reconstructed and reviewed. FINDINGS: HEART AND VESSELS: No acute pulmonary embolism to the proximal segmental arterial level. Evaluation distally is limited by motion artifact. Main pulmonary artery and its branches are normal in caliber. The thoracic aorta is of normal course and caliber without vascular calcifications. 2 vessel arch anatomy, a normal variant. Postsurgical changes of aortic valve repair. Midline sternotomy wires noted. There is mild retrosternal soft tissue stranding and fluid likely relate to recent surgery. A discrete rim enhancing fluid collection is not identified. No locules of free air are present. No coronary artery calcifications are seen.The study is not optimized for evaluation of coronary arteries. The cardiac chambers are not enlarged. Trace pericardial fluid. MEDIASTINUM AND RUTHIE, LOWER NECK AND AXILLA: Coarse calcifications noted in the right lobe of the thyroid gland. No evidence of thoracic lymphadenopathy by CT criteria. Esophagus appears within normal limits as seen. LUNGS AND AIRWAYS: The trachea and central airways are patent. No endobronchial lesion. Respiratory motion artifact limits evaluation of the lung parenchyma. No consolidation, effusion or pneumothorax. UPPER ABDOMEN: The visualized subdiaphragmatic structures demonstrate no remarkable findings. CHEST WALL AND OSSEOUS STRUCTURES: Midline sternotomy wires noted. Subcutaneous soft tissue stranding overlying the sternum with ill-defined fluid likely related to recent surgery. A discrete fluid collection is not identified. Multilevel degenerative changes are present. MMODAL Prasanth Villavicencio MD - 09/29/2024 Interpreted By: Prasanth Villavicencio, STUDY: CT ANGIO CHEST FOR PULMONARY EMBOLISM; 09/29/2024 1:24 am INDICATION: Signs/Symptoms:Pleuritic chest pain status post sternotomy pain to area concern for possible complication or PE. Status post aortic valve replacement 2 weeks ago COMPARISON: None. ACCESSION NUMBER(S): [id number] ORDERING CLINICIAN: RIKY CHEW TECHNIQUE: Helical data acquisition of the chest was obtained after intravenous administration of 75 mL of Omnipaque 350. Images were reformatted in axial, coronal, and sagittal planes. Axial and coronal MIPS were reconstructed and reviewed. FINDINGS: HEART AND VESSELS: No acute pulmonary embolism to the proximal segmental arterial level. Evaluation distally is limited by motion artifact. Main pulmonary artery and its branches are normal in caliber. The thoracic aorta is of normal course and caliber without vascular calcifications. 2 vessel arch anatomy, a normal variant. Postsurgical changes of aortic valve repair. Midline sternotomy wires noted. There is mild retrosternal soft tissue stranding and fluid likely relate to recent surgery. A discrete rim enhancing fluid collection is not identified. No locules of free air are present. No coronary artery calcifications are seen.The study is not optimized for evaluation of coronary arteries. The cardiac chambers are not enlarged. Trace pericardial fluid. MEDIASTINUM AND RUTHIE, LOWER NECK AND AXILLA: Coarse calcifications noted in the right lobe of the thyroid gland. No evidence of thoracic lymphadenopathy by CT criteria. Esophagus appears within normal limits as seen. LUNGS AND AIRWAYS: The trachea and central airways are patent. No endobronchial lesion. Respiratory motion artifact limits evaluation of the lung parenchyma. No consolidation, effusion or pneumothorax. UPPER ABDOMEN: The visualized subdiaphragmatic structures demonstrate no remarkable findings. CHEST WALL AND OSSEOUS STRUCTURES: Midline sternotomy wires noted. Subcutaneous soft tissue stranding overlying the sternum with ill-defined fluid likely related to recent surgery. A discrete fluid collection is not identified. Multilevel degenerative changes are present. IMPRESSION: 1. No acute pulmonary embolism to the segmental arterial level. 2. Postsurgical changes of aortic valve repair. Midline sternotomy wires noted. There is mild retrosternal soft tissue stranding and fluid likely and mild stranding of the subcutaneous soft tissues overlying the sternum. Findings likely relate to recent surgery. A discrete rim enhancing fluid collection is not identified. No locules of free air are present. 3. Additional findings as noted above. MACRO: None Signed by: Prasanth Villavicencio 09/29/2024 2:13 AM Dictation workstation: [id number] [facility] Work Phone: Radiology Study observation (narrative) [facility] Work Phone: CT Chest W contrast IV and C T angiogram Pulmonary arteries for pulmonary embolus W contrast IVOrdered By: Prasanth Villavicencio on 09-29-2024 [facility] Work Phone: ECG 12-LEADon 09-29-2024 ECG 12-LEAD Ventricular Rate 89 Atrial Rate 89 P-R Interval 162 QRS Duration 90 Q-T Interval 376 QTC Calculation(Bazett) 457 P Plano 54 R Plano 18 T Plano 108 QRS Count 15 Q Onset 218 P Onset 137 P Offset 184 T Offset 406 QTC Fredericia 428 Diagnosis Normal sinus rhythm T wave abnormality, consider lateral ischemia Abnormal ECG No previous ECGs available Confirmed by Cecilia Chavez ([id number]) on 10/09/2024 5:45:37 PM Normal [facility] FLUAV and FLUBV RNA KADY+prob e Nom (Unsp spec)on 09-29-2024 FLUAV RNA KADY+probe Ql (Resp) Not detected Not Detected [facility] FLUBV RNA KADY+probe Ql (Resp) Not detected Not Detected [facility] This assay is an in vitro diagnostic multiplex nucleic acid amplification test for the detection and discrimination of Influenza A & B from nasopharyngeal specimens, and has been validated for use at [facility]. Negative results do not preclude Influenza A/B infections, and should not be used as the sole basis for diagnosis, treatment, or other management decisions. If Influenza A/B and RSV PCR results are negative, testing for Parainfluenza virus, Adenovirus and Metapneumovirus is routinely performed for [facility] pediatric oncology and intensive care inpatients, and is available on other patients by placing an add-on request. [facility] FLUAV RNA KADY+probe Ql (Resp) Not detected Normal Not Detected [facility] Comment on above: Order Comment: This assay is an in vitro diagnostic multiplex nucleic acid amplification test for the detection and discrimination of Influenza A & B from nasopharyngeal specimens, and has been validated for use at [facility]. Negative results do not preclude Influenza A/B infections, and should not be used as the sole basis for diagnosis, treatment, or other management decisions. If Influenza A/B and RSV PCR results are negative, testing for Parainfluenza virus, Adenovirus and Metapneumovirus is routinely performed for [facility] pediatric oncology and intensive care inpatients, and is available on other patients by placing an add-on request. Performed By: #### 4 8509-4 #### MAXWELL Guillaume ([id number]) [facility] ([facility]) [address] [place] [address] FLUBV RNA KADY+probe Ql (Resp) Not detected Normal Not Detected [facility] Comment on above: Order Comment: This assay is an in vitro diagnostic multiplex nucleic acid amplification test for the detection and discrimination of Influenza A & B from nasopharyngeal specimens, and has been validated for use at [facility]. Negative results do not preclude Influenza A/B infections, and should not be used as the sole basis for diagnosis, treatment, or other management decisions. If Influenza A/B and RSV PCR results are negative, testing for Parainfluenza virus, Adenovirus and Metapneumovirus is routinely performed for [facility] pediatric oncology and intensive care inpatients, and is available on other patients by placing an add-on request. Performed By: #### 4 8509-4 #### MAXWELL Guillaume ([id number]) [facility] ([facility]) [address] [place] [address] Magnesiumon 09-29-2024 Magnesium [Mass/Vol] 2.04 mg/dL 1.60 - 2.40 mg/dL [facility] Magnesium [Mass/Vol] 2.04 mg/dL Normal 1.60-2.40 [facility] Comment on above: Performed By: #### 1 9123-9 #### MAXWELL Guillaume ([id number]) [facility] ([facility]) [address] [place] [address] Magnesium [Mass/Vol]on 09-29 Interpretation and review of laboratory results Normal [facility] Natriuretic peptide B [Mass/ Vol]on 09-29-2024 Interpretation and review of laboratory results Abnormal [facility] Natriuretic peptide B (Bld) [Mass/Vol] 143 pg/mL High 0 - 99 pg/mL [facility] <100 pg/mL - Heart failure unlikely 100-299 pg/mL - Intermediate probability of acute heart failure exacerbation. Correlate with clinical context and patient history. >=300 pg/mL - Heart Failure likely. Correlate with clinical context and patient history. BNP testing is performed using different testing methodology at [facility]. Direct result comparisons should only be made within the same method. [facility] Natriuretic peptide B (Bld) [Mass/Vol] 143 pg/mL High 0-99 [facility] Comment on above: Order Comment: <100 pg/mL - Heart failure unlikely 100-299 pg/mL - Intermediate probability of acute heart failure exacerbation. Correlate with clinical context and patient history. >=300 pg/mL - Heart Failure likely. Correlate with clinical context and patient history. BNP testing is performed using different testing methodology at [facility] than [facility]. Direct result comparisons should only be made within the same method. Performed By: #### 3 0934-4 #### MAXWELL Guillaume ([id number]) [facility] ([facility]) [address] [place] [address] No Panel Informationon 09-29 Interpretation and review of laboratory results Normal [facility] SARS coronavirus 2 RNAon SARS-CoV-2 (COVID-19) RNA KADY+probe Ql (Resp) Not detected Normal Not Detected [facility] Comment on above: Order Comment: This assay is an FDA-cleared, in vitro diagnostic nucleic acid amplification test for the qualitative detection and differentiation of SARS CoV-2 from nasopharyngeal specimens collected from individuals with signs and symptoms of respiratory tract infections, and has been validated for use at [facility]. Negative results do not preclude COVID-19 infections and should not be used as the sole basis for diagnosis, treatment, or other management decisions. Testing for SARS CoV-2 is recommended only for patients who meet current clinical and/or epidemiological criteria defined by federal, state, or local public health directives. Performed By: #### 9 4500-6 #### MAXWELL Guillaume ([id number]) [facility] ([facility]) [address] [place] [address] SARS-CoV-2 (COVID-19) RNA NA A+probe Ql (Resp)on 09-29-2024 This assay is an FDA-cleared, in vitro diagnostic nucleic acid amplification test for the qualitative detection and differentiation of SARS CoV-2 from nasopharyngeal specimens collected from individuals with signs and symptoms of respiratory tract infections, and has been validated for use at [facility]. Negative results do not preclude COVID-19 infections and should not be used as the sole basis for diagnosis, treatment, or other management decisions. Testing for SARS CoV-2 is recommended only for patients who meet current clinical and/or epidemiological criteria defined by federal, state, or local public health directives. [facility] Sars-CoV-2 PCRon 09-29-2024 SARS-CoV-2 (COVID-19) RNA KADY+probe Ql (Resp) Not detected Not Detected [facility] Tropinin I.cardiac panel Hig h sensitivity methodon 09-29-2024 Interpretation and review of laboratory results Normal [facility] Less than 99th percentile of normal range cutoff- Female and children under 18 years old <14 ng/L; Male <21 ng/L: Negative Repeat testing should be performed if clinically indicated. Female and children under 18 years old 14-50 ng/L; Male 21-50 ng/L: Consistent with possible cardiac damage and possible increased clinical risk. Serial measurements may help to assess extent of myocardial damage. >50 ng/L: Consistent with cardiac damage, increased clinical risk and myocardial infarction. Serial measurements may help assess extent of myocardial damage. NOTE: Children less than 1 year old may have higher baseline troponin levels and results should be interpreted in conjunction with the overall clinical context. NOTE: Troponin I testing is performed using a different testing methodology at [facility] than at other [facility]. Direct result comparisons should only be made within the same method. [facility] Interpretation and review of laboratory results Normal [facility] Less than 99th percentile of normal range cutoff- Female and children under 18 years old <14 ng/L; Male <21 ng/L: Negative Repeat testing should be performed if clinically indicated. Female and children under 18 years old 14-50 ng/L; Male 21-50 ng/L: Consistent with possible cardiac damage and possible increased clinical risk. Serial measurements may help to assess extent of myocardial damage. >50 ng/L: Consistent with cardiac damage, increased clinical risk and myocardial infarction. Serial measurements may help assess extent of myocardial damage. NOTE: Children less than 1 year old may have higher baseline troponin levels and results should be interpreted in conjunction with the overall clinical context. NOTE: Troponin I testing is performed using a different testing methodology at [facility] than at other [facility]. Direct result comparisons should only be made within the same method. [facility] Troponin I, High Sensitivity , Initialon 09-29-2024 Tropinin I.cardiac panel High sensitivity method 10 ng/L 0 - 13 ng/L [facility] Troponin I.cardiac panelon 0 09-29-2024 Tropinin I.cardiac panel High sensitivity method 10 ng/L Normal 0-13 [facility] Comment on above: Order Comment: Less than 99th percentile of normal range cutoff- Female and children under 18 years old <14 ng/L; Male <21 ng/L: Negative Repeat testing should be performed if clinically indicated. Female and children under 18 years old 14-50 ng/L; Male 21-50 ng/L: Consistent with possible cardiac damage and possible increased clinical risk. Serial measurements may help to assess extent of myocardial damage. >50 ng/L: Consistent with cardiac damage, increased clinical risk and myocardial infarction. Serial measurements may help assess extent of myocardial damage. NOTE: Children less than 1 year old may have higher baseline troponin levels and results should be interpreted in conjunction with the overall clinical context. NOTE: Troponin I testing is performed using a different testing methodology at [facility] than at other [facility]. Direct result comparisons should only be made within the same method. Performed By: #### 8 9577-1 #### MAXWELL Guillaume ([id number]) [facility] ([facility]) [address] [place] [address] Tropinin I.cardiac panel High sensitivity method 10 ng/L Normal 0-13 [facility] Comment on above: Order Comment: Less than 99th percentile of normal range cutoff- Female and children under 18 years old <14 ng/L; Male <21 ng/L: Negative Repeat testing should be performed if clinically indicated. Female and children under 18 years old 14-50 ng/L; Male 21-50 ng/L: Consistent with possible cardiac damage and possible increased clinical risk. Serial measurements may help to assess extent of myocardial damage. >50 ng/L: Consistent with cardiac damage, increased clinical risk and myocardial infarction. Serial measurements may help assess extent of myocardial damage. NOTE: Children less than 1 year old may have higher baseline troponin levels and results should be interpreted in conjunction with the overall clinical context. NOTE: Troponin I testing is performed using a different testing methodology at [facility] than at other [facility]. Direct result comparisons should only be made within the same method. Performed By: #### 8 9577-1 #### MAXWELL Guillaume ([id number]) [facility] ([facility]) [address] [place] [address] Troponin, High Sensitivity, 1 Houron 09-29-2024 Tropinin I.cardiac panel High sensitivity method 10 ng/L 0 - 13 ng/L [facility] CNPNon 09-25-2024 CNPN Normal [facility] CBC panel Auto (Bld)on 09-18 Erythrocyte distribution width (RBC) [Ratio] 15.5 % High 11.5-15.0 [facility] Comment on above: Order Comment: Speci men Type: BLOOD SPECIMENOrdering Facility: [facility] Address: [address] [place] [address] Performed By: #### 5 8410-2 ####[facility] LABCLIA [id number] [place] [address] [place] Hematocrit (Bld) [Volume fraction] 28.5 % Low 36.0-46.0 [facility] Comment on above: Order Comment: Speci men Type: BLOOD SPECIMENOrdering Facility: [facility] Address: [address] [place] [address] Performed By: #### 5 8410-2 ####[facility] LABCLIA [id number] [facility] [place] [address] [place] Hemoglobin (Bld) [Mass/Vol] 8.7 g/dL Low 11.5-15.5 [facility] Comment on above: Order Comment: Speci men Type: BLOOD SPECIMENOrdering Facility: [facility] Address: [address] [place] [address] Performed By: #### 5 8410-2 ####[facility] LABCLIA [id number] [place] [address] [place] MCH (RBC) [Entitic mass] 28.5 pg Normal 26.0-34.0 [facility] Comment on above: Order Comment: Speci men Type: BLOOD SPECIMENOrdering Facility: [facility] Address: [address] [place] [address] Performed By: #### 5 8410-2 ####[facility] LABIA [id number] [place] [address] [place] MCHC (RBC) [Mass/Vol] 30.5 g/dL Normal 30.5-36.0 [facility] Comment on above: Order Comment: Speci men Type: BLOOD SPECIMENOrdering Facility: [facility] Address: [address] [place] [address] Performed By: #### 5 8410-2 ####[facility] LABIA [id number] [place] [address] [place] MCV (RBC) [Entitic vol] 93.4 fL Normal 80.0-100.0 [facility] Comment on above: Order Comment: Speci men Type: BLOOD SPECIMENOrdering Facility: [facility] Address: [address] [place] [address] Performed By: #### 5 8410-2 ####[facility] LABIA [id number] [place] [address] [place] Nucleated RBC (Bld) [#/Vol] 0.02 10*3/uL High <0.01 [facility] Comment on above: Order Comment: Speci men Type: BLOOD SPECIMENOrdering Facility: [facility] Address: [address] [place] [address] Performed By: #### 5 8410-2 ####[facility] LABIA [id number] [place] [address] [place] Platelet mean volume (Bld) [Entitic vol] 8.7 fL Low 9.0-12.7 [facility] Comment on above: Order Comment: Speci men Type: BLOOD SPECIMENOrdering Facility: [facility] Address: [address] [place] [address] Performed By: #### 5 8410-2 ####[facility] LABIA [id number] [place] [address] [place] Platelets (Bld) [#/Vol] 638 10*3/uL High 150-400 [facility] Comment on above: Order Comment: Speci men Type: BLOOD SPECIMENOrdering Facility: [facility] Address: [address] [place] [address] Performed By: #### 5 8410-2 ####[facility] LABIA [id number] [place] [address] [place] RBC (Bld) [#/Vol] 3.05 10*6/uL Low 3.90-5.20 [facility] Comment on above: Order Comment: Speci men Type: BLOOD SPECIMENOrdering Facility: [facility] Address: [address] [place] [address] Performed By: #### 5 8410-2 ####[facility] LABIA [id number] [place] [id number] [place] WBC (Bld) [#/Vol] 10.60 10*3/uL Normal 3.70-11.00 [facility] Comment on above: Order Comment: Speci men Type: BLOOD SPECIMENOrdering Facility: [facility] Address: [address] [place] [address] Performed By: #### 5 8410-2 ####[facility] LABCLIA [id number] [address] [place] [address] [place] CNOVon 09-18-2024 CNOV Normal [facility] Comprehensive metabolic 2000 panelon 09-18-2024 Albumin [Mass/Vol] 3.6 g/dL Low 3.9-4.9 [facility] Comment on above: Order Comment: Speci men Type: BLOOD SPECIMENOrdering Facility: [facility] Address: [address] [place] [address] Performed By: #### 2 4323-8 ####[facility] LABCLIA [id number] [place] [id number] [place] ALP [Catalytic activity/Vol] 92 U/L Normal 34-123 [facility] Comment on above: Order Comment: Speci men Type: BLOOD SPECIMENOrdering Facility: [facility] Address: [address] [place] [address] Performed By: #### 2 4323-8 ####[facility] LABCLIA [id number] [address] [address] [place] ALT [Catalytic activity/Vol] 22 U/L Normal 7-38 [facility] Comment on above: Order Comment: Speci men Type: BLOOD SPECIMENOrdering Facility: [facility] Address: [address] [place] [address] Performed By: #### 2 4323-8 ####[facility] LABCLIA [id number] [address] [address] [place] Anion gap [Moles/Vol] 11 mmol/L Normal 8-15 [facility] Comment on above: Order Comment: Speci men Type: BLOOD SPECIMENOrdering Facility: [facility] Address: [address] [place], [place] [address] Performed By: #### 2 4323-8 ####[facility] LABCLIA [id number] [address] [place] [address] [place] AST [Catalytic activity/Vol] 20 U/L Normal 13-35 [facility] Comment on above: Order Comment: Speci men Type: BLOOD SPECIMENOrdering Facility: [facility] Address: [address] [place] [address] Performed By: #### 2 4323-8 ####[facility] LABCLIA [id number] [facility] [address] [place] [id number] [place] Bilirubin [Mass/Vol] 0.2 mg/dL Normal 0.2-1.3 [facility] Comment on above: Order Comment: Speci men Type: BLOOD SPECIMENOrdering Facility: [facility] Address: [address] [place] [address] Performed By: #### 2 4323-8 ####[facility] LABCLIA [id number] [place] [address] [place] Calcium [Mass/Vol] 8.9 mg/dL Normal 8.5-10.2 [facility] Comment on above: Order Comment: Speci men Type: BLOOD SPECIMENOrdering Facility: [facility] Address: [address] [place] [address] Performed By: #### 2 4323-8 ####[facility] LABCLIA [id number] [place] [address] [place] Chloride [Moles/Vol] 103 mmol/L Normal 98-107 [facility] Comment on above: Order Comment: Speci men Type: BLOOD SPECIMENOrdering Facility: [facility] Address: [address] [place] [address] Performed By: #### 2 4323-8 ####[facility] LABCLIA [id number] [place] [id number] [place] CO2 [Moles/Vol] 24 mmol/L Normal 22-30 [facility] Comment on above: Order Comment: Speci men Type: BLOOD SPECIMENOrdering Facility: [facility] Address: [address] [place] [address] Performed By: #### 2 4323-8 ####[facility] LABCLIA [id number] [address] [address] [place] Creatinine [Mass/Vol] 0.69 mg/dL Normal 0.58-0.96 [facility] Comment on above: Order Comment: Speci men Type: BLOOD SPECIMENOrdering Facility: [facility] Address: [address] [place] [address] Performed By: #### 2 4323-8 ####[facility] LABIA [id number] [place] [id number] [place] eGFRcr SerPlBld CKD-EPI 2020 108 mL/min/1.73m??? Normal >=60 [facility] Comment on above: Order Comment: Speci men Type: BLOOD SPECIMENOrdering Facility: [facility] Address: [address] [place] [address] Result Comment: Tsering mated Glomerular Filtration Rate (eGFR) is calculated using the 2020 CKD-EPI creatinine equation. This equation utilizes serum creatinine, sex, and age as parameters. The creatinine assay has traceable calibration to isotope dilution-mass spectrometry. Refer to KDIGO guidelines for clinical interpretation. In patients with unstable renal function, e.g. those with acute kidney injury, the eGFR may not accurately reflect actual GFR. Performed By: #### 2 4323-8 ####[facility] LABIA [id number] [place] [id number] [place] Glucose [Mass/Vol] 92 mg/dL Normal 74-99 [facility] Comment on above: Order Comment: Speci men Type: BLOOD SPECIMENOrdering Facility: [facility] Address: [address] [place] [address] Result Comment: The [place] [employer] (ADA) provides guidance for cutoff values for fasting glucose and random glucose. The ADA defines fasting as no caloric intake for at least 8 hours. Fasting plasma glucose results between 100 to 125 mg/dL indicate increased risk for diabetes (prediabetes).Fasting plasma glucose results greater than or equal to 126 mg/dL meet the criteria for diagnosis of diabetes. In the absence of unequivocal hyperglycemia, results should be confirmed by repeat testing. In a patient with classic symptoms of hyperglycemia or hyperglycemic crisis, random plasma glucose results greater than or equal to 200 mg/dL meet the criteria for diagnosis of diabetes.Reference: Standards of Medical Care in Diabetes 2016, [place] [employer]. Diabetes Care. 2016.39(Suppl 1). Performed By: #### 2 4323-8 ####[facility] LABCLIA [id number] [address] [address] [place] Potassium [Moles/Vol] 4.2 mmol/L Normal 3.7-5.1 [facility] Comment on above: Order Comment: Speci men Type: BLOOD SPECIMENOrdering Facility: [facility] Address: [address] [place] [address] Performed By: #### 2 4323-8 ####[facility] LABIA [id number] [place] [id number] [place] Protein [Mass/Vol] 6.5 g/dL Normal 6.3-8.0 [facility] Comment on above: Order Comment: Speci men Type: BLOOD SPECIMENOrdering Facility: [facility] Address: [address] [place] [address] Performed By: #### 2 4323-8 ####[facility] LABIA [id number] [address] [address] [place] Sodium [Moles/Vol] 138 mmol/L Normal 136-144 [facility] Comment on above: Order Comment: Speci men Type: BLOOD SPECIMENOrdering Facility: [facility] Address: [address] [place] [address] Performed By: #### 2 4323-8 ####[facility] LABIA [id number] [address] [address] [place] Urea nitrogen [Mass/Vol] 19 mg/dL Normal 7-21 [facility] Comment on above: Order Comment: Speci men Type: BLOOD SPECIMENOrdering Facility: [facility] Address: [address] [place] [address] Performed By: #### 2 4323-8 ####[facility] LABCLHAILE [id number] [place] [address] [place] XR CHEST 2V FRONTAL/LATon XR CHEST 2V FRONTAL/LAT Normal [facility] CNPNon 09-12-2024 CNPN Telephone ([facility]) -------- PAUL DAVENPORT ([id number]) 1975 F Date Time Provider Department 09/12/24 GHADA CONNER [facility] During your visit today, we recorded the following information about you: Ghada Conner RN 09/12/2024 2:19 PM Signed [facility] received a referral from Frances Min CNP to schedule with the clinic. The clinic reached out to the patient. Patient states that she may be moving to [facility]. Not sure is she will be getting different insurance. Will call the [facility] back once she knows plans. Allergies As of Date: 09/12/2024 Noted Allergy Reaction DUST 01/27/2009 Comments: extreme coughing, dry hives METFORMIN 04/09/2023 14 - Other: See Comments Date Reviewed: 09/09/2024 Reviewed by: Susana Harden RN - Fully Assessed Reason for Visit: Orders [681] ak [facility] appt contact [Other] Prescriptions as of 09/12/2024 - ARIPiprazole (ABILIFY) 15 mg tablet Take 15 mg by mouth once daily. - levonorgestrel (MIRENA) 21 mcg/24hr (up to 8 yrs) 52 mg IUD 1 each by INTRAUTERINE route one time only. - acetaminophen (TYLENOL) 325 mg tablet 2 tablets by ORAL/FEEDING TUBE route every 4 hours as needed for pain. - clopidogrel (PLAVIX) 75 mg tablet Take 1 tablet by mouth once daily. - furosemide (LASIX) 20 mg tablet Take 1 tablet by mouth two times a day. - senna-docusate (SENNA-S) 8.6-50 mg per tablet Take 2 tablets by mouth two times a day. - oxyCODONE IR (ROXICODONE) 5 mg immediate release tablet 1 tablet by ORAL/FEEDING TUBE route every 6 hours as needed for up to 7 days. - albuterol HFA (PROVENTIL HFA, VENTOLIN HFA) 90 mcg/actuation inhaler Inhale 2 puffs as instructed every 4 hours as needed for wheezing/shortness of breath. - aspirin 325 mg tablet Take 325 mg by mouth one time only. - CoQ10, Liposomal Ubiquinol, (COQMAX UBIQUINOL) 200 mg cap Take 200 mg by mouth once daily. - iv contrast (will be provided with radiology test) CTA ABD/PEL - No IV access, insert saline lock prior to the sedation, infusion, injection for imaging exam. Discontinue saline lock post exam. If Pt. has a central line or IVAD, may access for administration according to line specific nursing protocol. Once exam is complete flush line and de-access according to line specific nursing protocol in the CT contrast administration guidelines link. - propranolol (INDERAL) 20 mg tablet Take 1 tablet by mouth two times a day. - FLUoxetine (PROZAC) 40 mg capsule Take 2 capsules by mouth once daily. - esomeprazole (NEXIUM) 40 mg capsule Take 1 capsule by mouth two times a day. - LORazepam (ATIVAN) 1 mg tablet Take 1 mg by mouth once daily as needed for anxiety. - cholecalciferol (VITAMIN D3) 1,000 unit tab tablet Take 2 tablets by mouth once daily. Problem List As Of Date 09/12/2024 Noted Resolved Bicuspid AV/AI.. 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] 07/31/2001 02/09/2017 Depressive disorder, not elsewhere classified [*07/31/2001 12/21/2015 Endometriosis of other specified sites [N80.8] 07/31/2001 02/09/2017 ESOPHAGEAL REFLUX [K21.9] 07/31/2001 5.2.1 CHRONIC POST TRAUMA H/A W/ MINOR HEAD TRA*05/19/2003 02/09/2017 Allergic Rhinitis [J30.9] 03/05/2009 Bulimia nervosa, unspecified severity (HCC) [F5*04/08/2009 Vitamin B12 Deficiency [E53.8] 06/23/2009 Dysmenorrhea [N94.6] Routine gynecological examination [Z01.419] 10/23/2012 02/09/2017 Tobacco abuse [Z72.0] 05/11/2021 History of endometriosis [Z87.42] 01/28/2015 MDD (major depressive disorder), recurrent epis*12/21/2015 Raynaud's disease without gangrene [I73.00] 01/14/2016 Fibromyalgia [M79.7] 01/17/2016 Migraine without aura and without status migrai*01/17/2016 Encounter for monitoring proton pump inhibitor *02/09/2017 05/11/2021 Bicuspid aortic valve (HCC) [Q23.81] 02/09/2017 Obesity, Class I, BMI 30-34.9 [E66.811] 02/09/2017 05/11/2021 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] 02/09/2017 LEONARD (generalized anxiety disorder) [F41.1] 04/11/2017 Risk and functional assessment [Z13.9] 06/04/2017 05/11/2021 Rectal prolapse [K62.3] 03/21/2018 08/19/2018 RP (rectal prolapse) [K62.3] 03/21/2018 04/11/2018 Hx of migraines [Z86.69] 04/03/2018 05/11/2021 Nicotine use disorder, F17.2 [F17.200] 04/12/2018 Mild intermittent asthma without complication (*05/28/2019 Obesity, Class III, BMI 40-49.9 (morbid obesity*05/11/2021 Dyslipidemia [E78.5] 05/19/2021 Prediabetes [R73.03] 05/19/2021 Obesity, Class II, BMI 35-39.9 [E66.812] 03/31/2022 Chronic bilateral low back pain without sciatic*04/26/2022 Bilateral leg pain [M79.604, M79.605] 04/26/2022 Muscle spasm of back [M62.830] 04/26/2022 Bilateral hip pain [M25.551, M25.552] 04/26/2022 Foot pain, bilateral [M79.671, M79.672] 04/26/2022 Chronic pain of both knees [M25.561, M25.562, G*04/26/2022 Decreased pedal pulses [R09.89] 04/26/2022 [facility] (more content not included)... [facility] PAUL DAVENPORT ([id number]) 1975 F Date Time Provider Department 09/11/24 [facility] During your visit today, we recorded the following information about you: Lilly Gutierrez LPN 09/11/2024 1:20 PM Signed Paul Davenport called in and states she has been having a lot of fluid retention and Shortness of Breath with activity. Patient states she knows she is supposed to watch her sodium. She did eat a frozen pizza which is high in sodium. States she has had several frozen microwave meals since discharge due to easy to cook. Patient instructed she should avoid them due to sodium is high in all of the processed meals. She is asking if she can get a injection mold technician referral to work with her for her diet? Or if you want to see her sooner than the 6 week maxwell to discuss diet and exercise regimen? LASHON Mora Melissa A, APRN.[facility] 09/11/2024 4:30 PM Addendum Chart reviewed, I see that she just discharged yesterday from [facility] s/p AVR, myocardial bridge unfoofing, and closure of PFO on 09/04/[address] Damon. She was recommended follow up with PCP in 1 week and solar manager in 4-6 weeks. Ms. Davenport was offered an appointment with a [facility] Devops Engineer. She declined and wishes to follow up with their local solar manager. Looks like she may have been following with Dr. Ca in [place]. I dont see a follow up visit set with him? Please call patient to confirm what lasix dosing she is doing. Looks like she was discharged on lasix 20 mg BID. She definitely needs to remain on that. In the meantime, advise on daily weight monitoring, call if over 3-4+ weight gain in a day, or >5 lbs in a week, 2 gram low sodium restriction, 2L fluid restriction. I will place a CHF clinic referral, and ask schedulers to get her in with him for post op follow up. If she wants to be seen sooner, she can call the [facility] Devops Engineer who offered her a sooner post op appt [phone] Thanks! Mariza Lilly Gutierrez LPN 09/11/2024 4:43 PM Signed Left message for Paul Davenport to call [facility] for update and recommendations. [facility] phone number provided. LASHON Mora Jessica, LPN 09/11/2024 5:01 PM Signed I spoke to Paul Davenport and informed them of Frances's response and recommendations. Patient voiced understanding and confirmed taking Lasix at 20 mg twice daily. Patient transferred to [facility] to schedule hospital follow up appointment with . Patient states she does not have a ride to [place] so declined taking phone number. LASHON Mora Jessica, LPN 09/12/2024 11:24 AM Signed Frances Min APRN.Lilly Enriquez LPN One more thing- as far as diet and exercise regimen, right now in the post op period, we recommend walking slow steady pace, no heavy exertional activity. Cardiac rehab and more formal exercise recommendation should be reviewed at follow up visits. Frances Min APRN.Lilly Enriquez LPN 09/12/2024 11:25 AM Signed Left message for Paul Davenport to call [facility] for update and recommendations. [facility] phone number provided. LASHON Mora Taylor, LPN 09/12/2024 11:53 AM Signed Spoke with Paul Davenport on September 12, 2024. Informed of instructions as stated above. Patient voiced understanding at this time. LASHON Brian Taylor, LPN 09/12/2024 3:48 PM Signed Argelia, I am just following up to see if the aspirin was followed up on for this patient? I see she was contacted by cardiology but about her Lasix so I was not sure if the aspirin was clarified as well. Is there someone that can follow up with her today or tomorrow? Noemi Oconnell [facility] Allergies As of Date: 09/11/2024 Noted Allergy Reaction DUST 01/27/2009 Comments: extreme coughing, dry hives METFORMIN 04/09/2023 14 - Other: See Comments Date Reviewed: 09/09/2024 Reviewed by: Susana Harden RN - Fully Assessed Reason for Visit: Patient Update [1234] Primary Visit Diagnosis:Diastolic heart failure, unspecified HF chronicity (HCC) [I50.30] Order(s):CONSULT TO CHRONIC CARE [[id number]] Order #: [id number]: 1 Prescriptions as of 09/15/2024 - ARIPiprazole (ABILIFY) 15 mg tablet Take 15 mg by mouth once daily. - levonorgestrel (MIRENA) 21 mcg/24hr (up to 8 yrs) 52 mg IUD 1 each by INTRAUTERINE route one time only. - acetaminophen (TYLENOL) 325 mg tablet 2 tablets by ORAL/FEEDING TUBE route every 4 hours as needed for pain. - clopidogrel (PLAVIX) 75 mg tablet Take 1 tablet by mouth once daily. - furosemide (LASIX) 20 mg tablet Take 1 tablet by mouth two times a day. - senna-docusate (SENNA-S) 8.6-50 mg per tablet Take 2 tablets by mouth two times a day. - oxyCODONE IR (ROXICODONE) 5 mg immediate release tablet 1 tablet b (more content not included)... Normal [facility] CASE MANAGEMon 09-10-2024 CASE MANAGEM Normal [facility] CASE MANAGEM Normal [facility] CBC panel Auto (Bld)on 09-10 Erythrocyte distribution width (RBC) [Ratio] 15.1 % High 11.5-15.0 [facility] Comment on above: Order Comment: Speci men Type: BLOOD SPECIMENOrdering Facility: [facility] Address: [address] [place] [address] Performed By: #### 5 8410-2 ####[facility] LABIA [id number] [place] [address] [place] Hematocrit (Bld) [Volume fraction] 28.4 % Low 36.0-46.0 [facility] Comment on above: Order Comment: Speci men Type: BLOOD SPECIMENOrdering Facility: [facility] Address: [address] [place] [address] Performed By: #### 5 8410-2 ####[facility] LABIA [id number] [place] [address] [place] Hemoglobin (Bld) [Mass/Vol] 9.0 g/dL Low 11.5-15.5 [facility] Comment on above: Order Comment: Speci men Type: BLOOD SPECIMENOrdering Facility: [facility] Address: [address] [place] [address] Performed By: #### 5 8410-2 ####[facility] LABIA [id number] [place] [address] [place] MCH (RBC) [Entitic mass] 29.5 pg Normal 26.0-34.0 [facility] Comment on above: Order Comment: Speci men Type: BLOOD SPECIMENOrdering Facility: [facility] Address: [address] [place] [address] Performed By: #### 5 8410-2 ####[facility] LABIA [id number] [place] [address] [place] MCHC (RBC) [Mass/Vol] 31.7 g/dL Normal 30.5-36.0 [facility] Comment on above: Order Comment: Speci men Type: BLOOD SPECIMENOrdering Facility: [facility] Address: [address] [place] [address] Performed By: #### 5 8410-2 ####[facility] LABIA [id number] [place] [address] [place] MCV (RBC) [Entitic vol] 93.1 fL Normal 80.0-100.0 [facility] Comment on above: Order Comment: Speci men Type: BLOOD SPECIMENOrdering Facility: [facility] Address: [address] [place] [address] Performed By: #### 5 8410-2 ####[facility] LABIA [id number] [place] [address] [place] Nucleated RBC (Bld) [#/Vol] 0.23 10*3/uL High <0.01 [facility] Comment on above: Order Comment: Speci men Type: BLOOD SPECIMENOrdering Facility: [facility] Address: [address] [place] [address] Performed By: #### 5 8410-2 ####[facility] LABIA [id number] [place] [address] [place] Platelet mean volume (Bld) [Entitic vol] 9.6 fL Normal 9.0-12.7 [facility] Comment on above: Order Comment: Speci men Type: BLOOD SPECIMENOrdering Facility: [facility] Address: [address] [place] [address] Performed By: #### 5 8410-2 ####[facility] LABIA [id number] [place] [address] [place] Platelets (Bld) [#/Vol] 425 10*3/uL High 150-400 [facility] Comment on above: Order Comment: Speci men Type: BLOOD SPECIMENOrdering Facility: [facility] Address: [address] [place] [address] Performed By: #### 5 8410-2 ####[facility] LABIA [id number] [address] [address] [place] RBC (Bld) [#/Vol] 3.05 10*6/uL Low 3.90-5.20 [facility] Comment on above: Order Comment: Speci men Type: BLOOD SPECIMENOrdering Facility: [facility] Address: [address] [place] [address] Performed By: #### 5 8410-2 ####[facility] [id number] [place] [address] [place] WBC (Bld) [#/Vol] 14.08 10*3/uL High 3.70-11.00 [facility] Comment on above: Order Comment: Speci men Type: BLOOD SPECIMENOrdering Facility: [facility] Address: [address] [place] [address] Performed By: #### 5 8410-2 ####[facility] [id number] [place] [id number] [place] Comprehensive metabolic 2000 panelon 09-10-2024 Albumin [Mass/Vol] 3.6 g/dL Low 3.9-4.9 [facility] Comment on above: Order Comment: Speci men Type: BLOOD SPECIMENOrdering Facility: [facility] Address: [address] [place] [address] Performed By: #### 2 4323-8 ####[facility] [id number] [place] [id number] [place] ALP [Catalytic activity/Vol] 104 U/L Normal 34-123 [facility] Comment on above: Order Comment: Speci men Type: BLOOD SPECIMENOrdering Facility: [facility] Address: [address] [place] [address] Performed By: #### 2 4323-8 ####[facility] LABCLIA [id number] [facility] [address] [address] [place] ALT [Catalytic activity/Vol] 25 U/L Normal 7-38 [facility] Comment on above: Order Comment: Speci men Type: BLOOD SPECIMENOrdering Facility: [facility] Address: [address] [place], [place] [address] Performed By: #### 2 4323-8 ####[facility] LABCLIA [id number] [facility] [address] [place] [address] [place] Anion gap [Moles/Vol] 13 mmol/L Normal 8-15 [facility] Comment on above: Order Comment: Speci men Type: BLOOD SPECIMENOrdering Facility: [facility] Address: [address] [place] [address] Performed By: #### 2 4323-8 ####[facility] LABCLIA [id number] [facility] [address] [place] [address] [place] AST [Catalytic activity/Vol] 21 U/L Normal 13-35 [facility] Comment on above: Order Comment: Speci men Type: BLOOD SPECIMENOrdering Facility: [facility] Address: [address] [place] [address] Performed By: #### 2 4323-8 ####[facility] LABCLIA [id number] [facility] [address] [place] [address] [place] Bilirubin [Mass/Vol] 0.3 mg/dL Normal 0.2-1.3 [facility] Comment on above: Order Comment: Speci men Type: BLOOD SPECIMENOrdering Facility: [facility] Address: [address] [place], [place] [address] Performed By: #### 2 4323-8 ####[facility] LABCLIA [id number] [facility] [address] [place] [address] [place] Calcium [Mass/Vol] 8.9 mg/dL Normal 8.5-10.2 [facility] Comment on above: Order Comment: Speci men Type: BLOOD SPECIMENOrdering Facility: [facility] Address: [address] [place] [id number] Performed By: #### 2 4323-8 ####[facility] LABCLIA [id number] [address] [address] [place] Chloride [Moles/Vol] 92 mmol/L Low 98-107 [facility] Comment on above: Order Comment: Speci men Type: BLOOD SPECIMENOrdering Facility: [facility] Address: [address] [place], [place] [address] Performed By: #### 2 4323-8 ####[facility] LABCLIA [id number] [place] [id number] [place] CO2 [Moles/Vol] 29 mmol/L Normal 22-30 [facility] Comment on above: Order Comment: Speci men Type: BLOOD SPECIMENOrdering Facility: [facility] Address: [address] [place] [address] Performed By: #### 2 4323-8 ####[facility] LABCLIA [id number] [place] [id number] [place] Creatinine [Mass/Vol] 0.69 mg/dL Normal 0.58-0.96 [facility] Comment on above: Order Comment: Speci men Type: BLOOD SPECIMENOrdering Facility: [facility] Address: [address] [place], [place] [address] Performed By: #### 2 4323-8 ####[facility] LABCLIA [id number] [place] [id number] [place] eGFRcr SerPlBld CKD-EPI 2020 108 mL/min/1.73m??? Normal >=60 [facility] Comment on above: Order Comment: Speci men Type: BLOOD SPECIMENOrdering Facility: [facility] Address: [address] [place], [place] [address] Result Comment: Tsering mated Glomerular Filtration Rate (eGFR) is calculated using the 2020 CKD-EPI creatinine equation. This equation utilizes serum creatinine, sex, and age as parameters. The creatinine assay has traceable calibration to isotope dilution-mass spectrometry. Refer to KDIGO guidelines for clinical interpretation. In patients with unstable renal function, e.g. those with acute kidney injury, the eGFR may not accurately reflect actual GFR. Performed By: #### 2 4323-8 ####[facility] LABIA [id number] [address] [address] [place] Glucose [Mass/Vol] 91 mg/dL Normal 74-99 [facility] Comment on above: Order Comment: Ulises walsh Type: BLOOD SPECIMENOrdering Facility: [facility] Address: [address] [place] [address] Result Comment: The [place] [employer] (ADA) provides guidance for cutoff values for fasting glucose and random glucose. The ADA defines fasting as no caloric intake for at least 8 hours. Fasting plasma glucose results between 100 to 125 mg/dL indicate increased risk for diabetes (prediabetes).Fasting plasma glucose results greater than or equal to 126 mg/dL meet the criteria for diagnosis of diabetes. In the absence of unequivocal hyperglycemia, results should be confirmed by repeat testing. In a patient with classic symptoms of hyperglycemia or hyperglycemic crisis, random plasma glucose results greater than or equal to 200 mg/dL meet the criteria for diagnosis of diabetes.Reference: Standards of Medical Care in Diabetes 2016, [place] [employer]. Diabetes Care. 2016.39(Suppl 1). Performed By: #### 2 4323-8 ####[facility] LABIA [id number] [address] [address] [place] Potassium [Moles/Vol] 3.7 mmol/L Normal 3.7-5.1 [facility] Comment on above: Order Comment: Ulises walsh Type: BLOOD SPECIMENOrdering Facility: [facility] Address: [address] [place] [id number] Performed By: #### 2 4323-8 ####[facility] LABIA [id number] [address] [address] [place] Protein [Mass/Vol] 6.7 g/dL Normal 6.3-8.0 [facility] Comment on above: Order Comment: Speci men Type: BLOOD SPECIMENOrdering Facility: [facility] Address: [address] [place] [address] Performed By: #### 2 4323-8 ####[facility] LABCLIA [id number] [facility] [place] [id number] [place] Sodium [Moles/Vol] 134 mmol/L Low 136-144 [facility] Comment on above: Order Comment: Speci men Type: BLOOD SPECIMENOrdering Facility: [facility] Address: [address] [place] [address] Performed By: #### 2 4323-8 ####[facility] LABCLIA [id number] [facility] [address], [place] [address] [place] Urea nitrogen [Mass/Vol] 19 mg/dL Normal 7-21 [facility] Comment on above: Order Comment: Speci men Type: BLOOD SPECIMENOrdering Facility: [facility] Address: [address] [place] [address] Performed By: #### 2 4323-8 ####[facility] LABCLIA [id number] [address], [facility] [place] CASE MANAGEMon 09-09-2024 CASE MANAGEM Normal [facility] CBC panel Auto (Bld)on 09-09 Erythrocyte distribution width (RBC) [Ratio] 14.3 % Normal 11.5-15.0 [facility] Comment on above: Order Comment: Speci men Type: BLOOD SPECIMENOrdering Facility: [facility] Address: [address] [place] [address] Performed By: #### 5 8410-2 ####[facility] [facility] LABCLIA [id number] [facility] [address], [facility]95 [place] Hematocrit (Bld) [Volume fraction] 26.9 % Low 36.0-46.0 [facility] Comment on above: Order Comment: Speci men Type: BLOOD SPECIMENOrdering Facility: [facility] Address: [address] [place] [address] Performed By: #### 5 8410-2 ####[facility] [id number] [place] [address] [place] Hemoglobin (Bld) [Mass/Vol] 9.0 g/dL Low 11.5-15.5 [facility] Comment on above: Order Comment: Speci men Type: BLOOD SPECIMENOrdering Facility: [facility] Address: [address] [place] [address] Performed By: #### 5 8410-2 ####[facility] [id number] [place] [address] [place] MCH (RBC) [Entitic mass] 29.6 pg Normal 26.0-34.0 [facility] Comment on above: Order Comment: Speci men Type: BLOOD SPECIMENOrdering Facility: [facility] Address: [address] [place] [address] Performed By: #### 5 8410-2 ####[facility] [id number] [place] [address] [place] MCHC (RBC) [Mass/Vol] 33.5 g/dL Normal 30.5-36.0 [facility] Comment on above: Order Comment: Speci men Type: BLOOD SPECIMENOrdering Facility: [facility] Address: [address] [place] [address] Performed By: #### 5 8410-2 ####[facility] LABIA [id number] [place] [address] [place] MCV (RBC) [Entitic vol] 88.5 fL Normal 80.0-100.0 [facility] Comment on above: Order Comment: Speci men Type: BLOOD SPECIMENOrdering Facility: [facility] Address: [address] [place] [address] Performed By: #### 5 8410-2 ####[facility] LABCLIA [id number] [address] [address] [place] Nucleated RBC (Bld) [#/Vol] 0.15 10*3/uL High <0.01 [facility] Comment on above: Order Comment: Speci men Type: BLOOD SPECIMENOrdering Facility: [facility] Address: [address] [place] [address] Performed By: #### 5 8410-2 ####[facility] LABIA [id number] [place] [address] [place] Platelet mean volume (Bld) [Entitic vol] 9.5 fL Normal 9.0-12.7 [facility] Comment on above: Order Comment: Speci men Type: BLOOD SPECIMENOrdering Facility: [facility] Address: [address] [place] [address] Performed By: #### 5 8410-2 ####[facility] LABIA [id number] [place] [address] [place] Platelets (Bld) [#/Vol] 362 10*3/uL Normal 150-400 [facility] Comment on above: Order Comment: Speci men Type: BLOOD SPECIMENOrdering Facility: [facility] Address: [address] [place] [address] Performed By: #### 5 8410-2 ####[facility] LABIA [id number] [place] [address] [place] RBC (Bld) [#/Vol] 3.04 10*6/uL Low 3.90-5.20 [facility] Comment on above: Order Comment: Speci men Type: BLOOD SPECIMENOrdering Facility: [facility] Address: [address] [place] [address] Performed By: #### 5 8410-2 ####[facility] LABIA [id number] [address] [id number] [address] [place] WBC (Bld) [#/Vol] 11.98 10*3/uL High 3.70-11.00 [facility] Comment on above: Order Comment: Speci men Type: BLOOD SPECIMENOrdering Facility: [facility] Address: [address] [place] [address] Performed By: #### 5 8410-2 ####[facility] LABCLIA [id number] [place] [address] [place] CNDSon 09-09-2024 CNDS Normal [facility] Comprehensive metabolic 2000 panelon 09-09-2024 Albumin [Mass/Vol] 3.4 g/dL Low 3.9-4.9 [facility] Comment on above: Order Comment: Speci men Type: BLOOD SPECIMENOrdering Facility: [facility] Address: [address] [place] [address] Performed By: #### 2 4323-8 ####[facility] LABCLIA [id number] [place] [address] [place] ALP [Catalytic activity/Vol] 114 U/L Normal 34-123 [facility] Comment on above: Order Comment: Speci men Type: BLOOD SPECIMENOrdering Facility: [facility] Address: [address] [place] [address] Performed By: #### 2 4323-8 ####[facility] LABCLIA [id number] [place] [id number] [place] ALT [Catalytic activity/Vol] 25 U/L Normal 7-38 [facility] Comment on above: Order Comment: Speci men Type: BLOOD SPECIMENOrdering Facility: [facility] Address: [address] [place] [address] Performed By: #### 2 4323-8 ####[facility] LABCLIA [id number] [address] [address] [place] Anion gap [Moles/Vol] 12 mmol/L Normal 8-15 [facility] Comment on above: Order Comment: Speci men Type: BLOOD SPECIMENOrdering Facility: [facility] Address: [address] [place], [place] [address] Performed By: #### 2 4323-8 ####[facility] LABCLIA [id number] [address] [address] [place] AST [Catalytic activity/Vol] 30 U/L Normal 13-35 [facility] Comment on above: Order Comment: Speci men Type: BLOOD SPECIMENOrdering Facility: [facility] Address: [address] [place] [address] Performed By: #### 2 4323-8 ####[facility] LABCLIA [id number] [place] [address] [place] Bilirubin [Mass/Vol] 0.3 mg/dL Normal 0.2-1.3 [facility] Comment on above: Order Comment: Speci men Type: BLOOD SPECIMENOrdering Facility: [facility] Address: [address] [place] [address] Performed By: #### 2 4323-8 ####[facility] LABCLIA [id number] [place] [address] [place] Calcium [Mass/Vol] 8.9 mg/dL Normal 8.5-10.2 [facility] Comment on above: Order Comment: Speci men Type: BLOOD SPECIMENOrdering Facility: [facility] Address: [address] [place], [place] [address] Performed By: #### 2 4323-8 ####[facility] LABCLIA [id number] [place] [id number] [place] Chloride [Moles/Vol] 92 mmol/L Low 98-107 [facility] Comment on above: Order Comment: Speci men Type: BLOOD SPECIMENOrdering Facility: [facility] Address: [address] [place], [place] [address] Performed By: #### 2 4323-8 ####[facility] LABCLIA [id number] [place] [id number] [place] CO2 [Moles/Vol] 31 mmol/L High 22-30 [facility] Comment on above: Order Comment: Speci men Type: BLOOD SPECIMENOrdering Facility: [facility] Address: [address] [place] [address] Performed By: #### 2 4323-8 ####[facility] LABIA [id number] [place] [address] [place] Creatinine [Mass/Vol] 0.57 mg/dL Low 0.58-0.96 [facility] Comment on above: Order Comment: Speci men Type: BLOOD SPECIMENOrdering Facility: [facility] Address: [address] [place] [address] Performed By: #### 2 4323-8 ####[facility] LABIA [id number] [place] [address] [place] eGFRcr SerPlBld CKD-EPI 2020 113 mL/min/1.73m??? Normal >=60 [facility] Comment on above: Order Comment: Speci men Type: BLOOD SPECIMENOrdering Facility: [facility] Address: [address] [place] [address] Result Comment: Tsering mated Glomerular Filtration Rate (eGFR) is calculated using the 2020 CKD-EPI creatinine equation. This equation utilizes serum creatinine, sex, and age as parameters. The creatinine assay has traceable calibration to isotope dilution-mass spectrometry. Refer to KDIGO guidelines for clinical interpretation. In patients with unstable renal function, e.g. those with acute kidney injury, the eGFR may not accurately reflect actual GFR. Performed By: #### 2 4323-8 ####[facility] LABIA [id number] [place] [id number] [place] Glucose [Mass/Vol] 99 mg/dL Normal 74-99 [facility] Comment on above: Order Comment: Speci men Type: BLOOD SPECIMENOrdering Facility: [facility] Address: [address] [place] [id number] Result Comment: The [place] [employer] (ADA) provides guidance for cutoff values for fasting glucose and random glucose. The ADA defines fasting as no caloric intake for at least 8 hours. Fasting plasma glucose results between 100 to 125 mg/dL indicate increased risk for diabetes (prediabetes).Fasting plasma glucose results greater than or equal to 126 mg/dL meet the criteria for diagnosis of diabetes. In the absence of unequivocal hyperglycemia, results should be confirmed by repeat testing. In a patient with classic symptoms of hyperglycemia or hyperglycemic crisis, random plasma glucose results greater than or equal to 200 mg/dL meet the criteria for diagnosis of diabetes.Reference: Standards of Medical Care in Diabetes 2016, [place] [employer]. Diabetes Care. 2016.39(Suppl 1). Performed By: #### 2 4323-8 ####[facility] LABIA [id number] [place] [address] [place] Potassium [Moles/Vol] 3.5 mmol/L Low 3.7-5.1 [facility] Comment on above: Order Comment: Speci men Type: BLOOD SPECIMENOrdering Facility: [facility] Address: [address] [place] [address] Performed By: #### 2 4323-8 ####[facility] LABIA [id number] [place] [address] [place] Protein [Mass/Vol] 6.6 g/dL Normal 6.3-8.0 [facility] Comment on above: Order Comment: Speci men Type: BLOOD SPECIMENOrdering Facility: [facility] Address: [address] [place] [address] Performed By: #### 2 4323-8 ####[facility] LABIA [id number] [place] [address] [place] Sodium [Moles/Vol] 135 mmol/L Low 136-144 [facility] Comment on above: Order Comment: Speci men Type: BLOOD SPECIMENOrdering Facility: [facility] Address: [address] [place] [address] Performed By: #### 2 4323-8 ####[facility] LABCLIA [id number] [place] [id number] [place] Urea nitrogen [Mass/Vol] 18 mg/dL Normal - [facility] Comment on above: Order Comment: Speci men Type: BLOOD SPECIMENOrdering Facility: [facility] Address: [address] [place] [address] Performed By: #### 2 4323-8 ####[facility] LABIA [id number] [place] [id number] [place] ECHO LIMITEDon 09-09-2024 ECHO LIMITED Normal [facility] HCG Preg Ur Qlon 09-09-2024 HCG ( test) Ql (U) Negative Normal Negative [facility] Comment on above: Order Comment: Speci men Type: URINE SPECIMENOrdering Facility: [facility] Address: [address] [place] [address] Result Comment: This test is intended to aid in the early detection of . Very dilute urine samples, as indicated by a low specific gravity, may not contain digital media representative levels of hCG. This test detects intact hCG only. This test does not reliably detect hCG degradation products, including free-beta subunit and beta-core fragment. Therefore, this test may show reduced reactivity in urine after 8 weeks gestation. A number of conditions other than , including trophoblastic disease and certain non-trophoblastic neoplasms cause elevated levels of hCG. As with any assay employing mouse antibodies, the possibility exists for interference by human anti-mouse antibodies (HAMA) in the specimen. The test provides a presumptive diagnosis for . Performed By: #### 2 106-3 ####[facility] LABIA [id number] [place] [id number] [place] ALLIED HEALTHon 09-08-2024 ALLIED HEALTH Normal [facility] CASE MANAGEMon 09-08-2024 CASE MANAGEM Normal [facility] CBC panel Auto (Bld)on 09-08 Erythrocyte distribution width (RBC) [Ratio] 14.3 % Normal 11.5-15.0 [facility] Comment on above: Order Comment: Speci men Type: BLOOD SPECIMENOrdering Facility: [facility] Address: [address] [place] [address] Performed By: #### 5 8410-2 ####[facility] LABIA [id number] [place] [address] [place] Hematocrit (Bld) [Volume fraction] 26.4 % Low 36.0-46.0 [facility] Comment on above: Order Comment: Speci men Type: BLOOD SPECIMENOrdering Facility: [facility] Address: [address] [place] [address] Performed By: #### 5 8410-2 ####[facility] LABIA [id number] [place] [address] [place] Hemoglobin (Bld) [Mass/Vol] 8.4 g/dL Low 11.5-15.5 [facility] Comment on above: Order Comment: Speci men Type: BLOOD SPECIMENOrdering Facility: [facility] Address: [address] [place] [address] Performed By: #### 5 8410-2 ####[facility] LABIA [id number] [place] [address] [place] MCH (RBC) [Entitic mass] 29.6 pg Normal 26.0-34.0 [facility] Comment on above: Order Comment: Speci men Type: BLOOD SPECIMENOrdering Facility: [facility] Address: [address] [place] [address] Performed By: #### 5 8410-2 ####[facility] LABIA [id number] [place] [address] [place] MCHC (RBC) [Mass/Vol] 31.8 g/dL Normal 30.5-36.0 [facility] Comment on above: Order Comment: Speci men Type: BLOOD SPECIMENOrdering Facility: [facility] Address: [address] [place] [address] Performed By: #### 5 8410-2 ####[facility] LABCLIA [id number] [address] [place] [address] [place] MCV (RBC) [Entitic vol] 93.0 fL Normal 80.0-100.0 [facility] Comment on above: Order Comment: Speci men Type: BLOOD SPECIMENOrdering Facility: [facility] Address: [address] [place] [address] Performed By: #### 5 8410-2 ####[facility] LABIA [id number] [address], [facility]95 [place] Nucleated RBC (Bld) [#/Vol] 0.09 10*3/uL High <0.01 [facility] Comment on above: Order Comment: Speci men Type: BLOOD SPECIMENOrdering Facility: [facility] Address: [address] [place] [address] Performed By: #### 5 8410-2 ####[facility] LABIA [id number] [address], [facility]95 [place] Platelet mean volume (Bld) [Entitic vol] 9.9 fL Normal 9.0-12.7 [facility] Comment on above: Order Comment: Speci men Type: BLOOD SPECIMENOrdering Facility: [facility] Address: [address] [place] [address] Performed By: #### 5 8410-2 ####[facility] LABIA [id number] [address] [place] [address] [place] Platelets (Bld) [#/Vol] 271 10*3/uL Normal 150-400 [facility] Comment on above: Order Comment: Speci men Type: BLOOD SPECIMENOrdering Facility: [facility] Address: [address] [place] [address] Performed By: #### 5 8410-2 ####[facility] LABIA [id number] [address] [place] [address] [place] RBC (Bld) [#/Vol] 2.84 10*6/uL Low 3.90-5.20 [facility] Comment on above: Order Comment: Speci men Type: BLOOD SPECIMENOrdering Facility: [facility] Address: [address] [place] [address] Performed By: #### 5 8410-2 ####[facility] LABIA [id number] [place] [address] [place] WBC (Bld) [#/Vol] 12.16 10*3/uL High 3.70-11.00 [facility] Comment on above: Order Comment: Speci men Type: BLOOD SPECIMENOrdering Facility: [facility] Address: [address] [place] [address] Performed By: #### 5 8410-2 ####[facility] LABIA [id number] [place] [address] [place] CONSULT PROGon 09-08-2024 CONSULT PROG Normal [facility] Comprehensive metabolic 2000 panelon 09-08-2024 Albumin [Mass/Vol] 3.4 g/dL Low 3.9-4.9 [facility] Comment on above: Order Comment: Speci men Type: BLOOD SPECIMENOrdering Facility: [facility] Address: [address] [place] [address] Performed By: #### 2 4323-8 ####[facility] LABIA [id number] [place] [address] [place] ALP [Catalytic activity/Vol] 121 U/L Normal 34-123 [facility] Comment on above: Order Comment: Speci men Type: BLOOD SPECIMENOrdering Facility: [facility] Address: [address] [place] [address] Performed By: #### 2 4323-8 ####[facility] LABIA [id number] [place] [address] [place] ALT [Catalytic activity/Vol] 23 U/L Normal 7-38 [facility] Comment on above: Order Comment: Speci men Type: BLOOD SPECIMENOrdering Facility: [facility] Address: [address] [place] [id number] Performed By: #### 2 4323-8 ####[facility] LABCLIA [id number] [facility] ERK [address] [address] [place] Anion gap [Moles/Vol] 11 mmol/L Normal 8-15 [facility] Comment on above: Order Comment: Speci men Type: BLOOD SPECIMENOrdering Facility: [facility] Address: [address] [place] [address] Performed By: #### 2 4323-8 ####[facility] LABCLIA [id number] [place] [id number] [place] AST [Catalytic activity/Vol] 24 U/L Normal 13-35 [facility] Comment on above: Order Comment: Speci men Type: BLOOD SPECIMENOrdering Facility: [facility] Address: [address] [place], [place] [address] Performed By: #### 2 4323-8 ####[facility] LABCLIA [id number] [address] [address] [place] Bilirubin [Mass/Vol] 0.3 mg/dL Normal 0.2-1.3 [facility] Comment on above: Order Comment: Speci men Type: BLOOD SPECIMENOrdering Facility: [facility] Address: [address] [place] [id number] Performed By: #### 2 4323-8 ####[facility] LABCLIA [id number] [place] [id number] [place] Calcium [Mass/Vol] 8.6 mg/dL Normal 8.5-10.2 [facility] Comment on above: Order Comment: Speci men Type: BLOOD SPECIMENOrdering Facility: [facility] Address: [address] [place] [address] Performed By: #### 2 4323-8 ####[facility] LABCLIA [id number] [place] [id number] [place] Chloride [Moles/Vol] 91 mmol/L Low 98-107 [facility] Comment on above: Order Comment: Speci men Type: BLOOD SPECIMENOrdering Facility: [facility] Address: [address] [place] [address] Performed By: #### 2 4323-8 ####[facility] LABCLIA [id number] [place] [address] [place] CO2 [Moles/Vol] 29 mmol/L Normal 22-30 [facility] Comment on above: Order Comment: Speci men Type: BLOOD SPECIMENOrdering Facility: [facility] Address: [address] [place] [address] Performed By: #### 2 4323-8 ####[facility] LABCLIA [id number] [place] [address] [place] Creatinine [Mass/Vol] 0.56 mg/dL Low 0.58-0.96 [facility] Comment on above: Order Comment: Speci men Type: BLOOD SPECIMENOrdering Facility: [facility] Address: [address] [place] [address] Performed By: #### 2 4323-8 ####[facility] LABIA [id number] [place] [address] [place] eGFRcr SerPlBld CKD-EPI 2020 113 mL/min/1.73m??? Normal >=60 [facility] Comment on above: Order Comment: Speci men Type: BLOOD SPECIMENOrdering Facility: [facility] Address: [address] [place] [address] Result Comment: Tsering mated Glomerular Filtration Rate (eGFR) is calculated using the 2020 CKD-EPI creatinine equation. This equation utilizes serum creatinine, sex, and age as parameters. The creatinine assay has traceable calibration to isotope dilution-mass spectrometry. Refer to KDIGO guidelines for clinical interpretation. In patients with unstable renal function, e.g. those with acute kidney injury, the eGFR may not accurately reflect actual GFR. Performed By: #### 2 4323-8 ####[facility] LABIA [id number] [address] [address] [place] Glucose [Mass/Vol] 125 mg/dL High 74-99 [facility] Comment on above: Order Comment: Speci men Type: BLOOD SPECIMENOrdering Facility: [facility] Address: [address] [place] [address] Result Comment: The [place] [employer] (ADA) provides guidance for cutoff values for fasting glucose and random glucose. The ADA defines fasting as no caloric intake for at least 8 hours. Fasting plasma glucose results between 100 to 125 mg/dL indicate increased risk for diabetes (prediabetes).Fasting plasma glucose results greater than or equal to 126 mg/dL meet the criteria for diagnosis of diabetes. In the absence of unequivocal hyperglycemia, results should be confirmed by repeat testing. In a patient with classic symptoms of hyperglycemia or hyperglycemic crisis, random plasma glucose results greater than or equal to 200 mg/dL meet the criteria for diagnosis of diabetes.Reference: Standards of Medical Care in Diabetes 2016, [place] [employer]. Diabetes Care. 2016.39(Suppl 1). Performed By: #### 2 4323-8 ####[facility] LABIA [id number] [address] [address] [place] Potassium [Moles/Vol] 3.8 mmol/L Normal 3.7-5.1 [facility] Comment on above: Order Comment: Speci men Type: BLOOD SPECIMENOrdering Facility: [facility] Address: [address] [place] [phone] Performed By: #### 2 4323-8 ####[facility] LABIA [id number] [address] [address] [place] Protein [Mass/Vol] 6.3 g/dL Normal 6.3-8.0 [facility] Comment on above: Order Comment: Speci men Type: BLOOD SPECIMENOrdering Facility: [facility] Address: [address] [place] [phone] Performed By: #### 2 4323-8 ####[facility] LABCLIA [id number] [address] [address] [place] Sodium [Moles/Vol] 131 mmol/L Low 136-144 [facility] Comment on above: Order Comment: Speci men Type: BLOOD SPECIMENOrdering Facility: [facility] Address: [address] [place] [address] Performed By: #### 2 4323-8 ####[facility] LABCLIA [id number] [place] [id number] [place] Urea nitrogen [Mass/Vol] 22 mg/dL High - [facility] Comment on above: Order Comment: Speci men Type: BLOOD SPECIMENOrdering Facility: [facility] Address: [address] [place] [address] Performed By: #### 2 4323-8 ####[facility] LABCLIA [id number] [address] [place] [address] [place] NUTRITIONon 09-08-2024 NUTRITION Normal [facility] PT EDon 09-08-2024 PT ED Normal [facility] THERAPY NTon 09-08-2024 THERAPY NT Normal [facility] THERAPY NT Normal [facility] CBC panel Auto (Bld)on 09-07 Erythrocyte distribution width (RBC) [Ratio] 14.3 % Normal 11.5-15.0 [facility] Comment on above: Order Comment: Speci men Type: BLOOD SPECIMENOrdering Facility: [facility] Address: [address] [place], [place] [address] Performed By: #### 5 8410-2 ####[facility] LABCLIA [id number] [address] [address] [place] Hematocrit (Bld) [Volume fraction] 26.7 % Low 36.0-46.0 [facility] Comment on above: Order Comment: Speci men Type: BLOOD SPECIMENOrdering Facility: [facility] Address: [address] [place] [address] Performed By: #### 5 8410-2 ####[facility] LABIA [id number] [place] [address] [place] Hemoglobin (Bld) [Mass/Vol] 8.7 g/dL Low 11.5-15.5 [facility] Comment on above: Order Comment: Speci men Type: BLOOD SPECIMENOrdering Facility: [facility] Address: [address] [place] [address] Performed By: #### 5 8410-2 ####[facility] LABIA [id number] [place] [address] [place] MCH (RBC) [Entitic mass] 29.6 pg Normal 26.0-34.0 [facility] Comment on above: Order Comment: Speci men Type: BLOOD SPECIMENOrdering Facility: [facility] Address: [address] [place] [address] Performed By: #### 5 8410-2 ####[facility] LABIA [id number] [place] [address] [place] MCHC (RBC) [Mass/Vol] 32.6 g/dL Normal 30.5-36.0 [facility] Comment on above: Order Comment: Speci men Type: BLOOD SPECIMENOrdering Facility: [facility] Address: [address] [place] [address] Performed By: #### 5 8410-2 ####[facility] LABIA [id number] [place] [address] [place] MCV (RBC) [Entitic vol] 90.8 fL Normal 80.0-100.0 [facility] Comment on above: Order Comment: Speci men Type: BLOOD SPECIMENOrdering Facility: [facility] Address: [address] [place] [address] Performed By: #### 5 8410-2 ####[facility] LABCLIA [id number] [address] [address] [place] Nucleated RBC (Bld) [#/Vol] 0.07 10*3/uL High <0.01 [facility] Comment on above: Order Comment: Speci men Type: BLOOD SPECIMENOrdering Facility: [facility] Address: [address] [place] [address] Performed By: #### 5 8410-2 ####[facility] LABIA [id number] [address], [place] [address] [place] Platelet mean volume (Bld) [Entitic vol] 10.0 fL Normal 9.0-12.7 [facility] Comment on above: Order Comment: Speci men Type: BLOOD SPECIMENOrdering Facility: [facility] Address: [address] [place] [address] Performed By: #### 5 8410-2 ####[facility] LABIA [id number] [place] [address] [place] Platelets (Bld) [#/Vol] 233 10*3/uL Normal 150-400 [facility] Comment on above: Order Comment: Speci men Type: BLOOD SPECIMENOrdering Facility: [facility] Address: [address] [place] [address] Performed By: #### 5 8410-2 ####[facility] LABIA [id number] [place] [address] [place] RBC (Bld) [#/Vol] 2.94 10*6/uL Low 3.90-5.20 [facility] Comment on above: Order Comment: Speci men Type: BLOOD SPECIMENOrdering Facility: [facility] Address: [address] [place] [address] Performed By: #### 5 8410-2 ####[facility] LABIA [id number] [place] [address] [place] WBC (Bld) [#/Vol] 13.49 10*3/uL High 3.70-11.00 [facility] Comment on above: Order Comment: Speci men Type: BLOOD SPECIMENOrdering Facility: [facility] Address: [address] [place] [address] Performed By: #### 5 8410-2 ####[facility] LABCLIA [id number] [place] [address] [place] Comprehensive metabolic 2000 panelon 09-07-2024 Albumin [Mass/Vol] 3.3 g/dL Low 3.9-4.9 [facility] Comment on above: Order Comment: Speci men Type: BLOOD SPECIMENOrdering Facility: [facility] Address: [address] [place] [address] Performed By: #### 2 4323-8 ####[facility] LABCLIA [id number] [place] [address] [place] ALP [Catalytic activity/Vol] 144 U/L High 34-123 [facility] Comment on above: Order Comment: Speci men Type: BLOOD SPECIMENOrdering Facility: [facility] Address: [address] [place] [address] Performed By: #### 2 4323-8 ####[facility] LABIA [id number] [place] [address] [place] ALT [Catalytic activity/Vol] 25 U/L Normal 7-38 [facility] Comment on above: Order Comment: Speci men Type: BLOOD SPECIMENOrdering Facility: [facility] Address: [address] [place] [address] Performed By: #### 2 4323-8 ####[facility] LABCLIA [id number] [place] [id number] [place] Anion gap [Moles/Vol] 10 mmol/L Normal 8-15 [facility] Comment on above: Order Comment: Speci men Type: BLOOD SPECIMENOrdering Facility: [facility] Address: [address] [place] [address] Performed By: #### 2 4323-8 ####[facility] LABCLIA [id number] [place] [address] [place] AST [Catalytic activity/Vol] 31 U/L Normal 13-35 [facility] Comment on above: Order Comment: Speci men Type: BLOOD SPECIMENOrdering Facility: [facility] Address: [address] [place] [address] Performed By: #### 2 4323-8 ####[facility] LABCLIA [id number] [place] [address] [place] Bilirubin [Mass/Vol] 0.4 mg/dL Normal 0.2-1.3 [facility] Comment on above: Order Comment: Speci men Type: BLOOD SPECIMENOrdering Facility: [facility] Address: [address] [place] [address] Performed By: #### 2 4323-8 ####[facility] LABCLIA [id number] [place] [address] [place] Calcium [Mass/Vol] 8.6 mg/dL Normal 8.5-10.2 [facility] Comment on above: Order Comment: Speci men Type: BLOOD SPECIMENOrdering Facility: [facility] Address: [address] [place] [address] Performed By: #### 2 4323-8 ####[facility] LABCLIA [id number] [place] [id number] [place] Chloride [Moles/Vol] 92 mmol/L Low 98-107 [facility] Comment on above: Order Comment: Speci men Type: BLOOD SPECIMENOrdering Facility: [facility] Address: [address] [place] [address] Performed By: #### 2 4323-8 ####[facility] LABCLIA [id number] [address] [address] [place] CO2 [Moles/Vol] 27 mmol/L Normal 22-30 [facility] Comment on above: Order Comment: Speci men Type: BLOOD SPECIMENOrdering Facility: [facility] Address: [address] [place] [address] Performed By: #### 2 4323-8 ####[facility] LABCLIA [id number] [place] [id number] [place] Creatinine [Mass/Vol] 0.72 mg/dL Normal 0.58-0.96 [facility] Comment on above: Order Comment: Speci men Type: BLOOD SPECIMENOrdering Facility: [facility] Address: [address] [place] [address] Performed By: #### 2 4323-8 ####[facility] LABIA [id number] [place] [address] [place] eGFRcr SerPlBld CKD-EPI 2020 104 mL/min/1.73m??? Normal >=60 [facility] Comment on above: Order Comment: Speci men Type: BLOOD SPECIMENOrdering Facility: [facility] Address: [address] [place] [address] Result Comment: Tsering mated Glomerular Filtration Rate (eGFR) is calculated using the 2020 CKD-EPI creatinine equation. This equation utilizes serum creatinine, sex, and age as parameters. The creatinine assay has traceable calibration to isotope dilution-mass spectrometry. Refer to KDIGO guidelines for clinical interpretation. In patients with unstable renal function, e.g. those with acute kidney injury, the eGFR may not accurately reflect actual GFR. Performed By: #### 2 4323-8 ####[facility] LABCLIA [id number] [place] [id number] [place] Glucose [Mass/Vol] 83 mg/dL Normal 74-99 [facility] Comment on above: Order Comment: Speci men Type: BLOOD SPECIMENOrdering Facility: [facility] Address: [address] [place] [address] Result Comment: The [place] [employer] (ADA) provides guidance for cutoff values for fasting glucose and random glucose. The ADA defines fasting as no caloric intake for at least 8 hours. Fasting plasma glucose results between 100 to 125 mg/dL indicate increased risk for diabetes (prediabetes).Fasting plasma glucose results greater than or equal to 126 mg/dL meet the criteria for diagnosis of diabetes. In the absence of unequivocal hyperglycemia, results should be confirmed by repeat testing. In a patient with classic symptoms of hyperglycemia or hyperglycemic crisis, random plasma glucose results greater than or equal to 200 mg/dL meet the criteria for diagnosis of diabetes.Reference: Standards of Medical Care in Diabetes 2016, [place] [employer]. Diabetes Care. 2016.39(Suppl 1). Performed By: #### 2 4323-8 ####[facility] LABCLIA [id number] [place] [address] [place] Potassium [Moles/Vol] 4.1 mmol/L Normal 3.7-5.1 [facility] Comment on above: Order Comment: Speci men Type: BLOOD SPECIMENOrdering Facility: [facility] Address: [address] [place] [address] Performed By: #### 2 4323-8 ####[facility] LABCLIA [id number] [place] [address] [place] Protein [Mass/Vol] 6.3 g/dL Normal 6.3-8.0 [facility] Comment on above: Order Comment: Speci men Type: BLOOD SPECIMENOrdering Facility: [facility] Address: [address] [place] [address] Performed By: #### 2 4323-8 ####[facility] LABCLIA [id number] [place] [id number] [place] Sodium [Moles/Vol] 129 mmol/L Low 136-144 [facility] Comment on above: Order Comment: Speci men Type: BLOOD SPECIMENOrdering Facility: [facility] Address: [address] [place] [address] Performed By: #### 2 4323-8 ####[facility] LABCLIA [id number] [address] [address] [place] Urea nitrogen [Mass/Vol] 17 mg/dL Normal 7- [facility] Comment on above: Order Comment: Speci men Type: BLOOD SPECIMENOrdering Facility: [facility] Address: [address] [place] [address] Performed By: #### 2 4323-8 ####[facility] LABIA [id number] [place] [address] [place] NURSING PROGon 09-07-2024 NURSING PROG Normal [facility] THERAPY NTon 09-07-2024 THERAPY NT Normal [facility] XR CHEST 1V FRONTAL PORTon 0 09-07-2024 XR CHEST 1V FRONTAL PORT Normal [facility] ARTERIAL BLOOD GASESon 09-06 Base excess Calc (Bld) [Moles/Vol] 3 mmol/L High 0-2 [facility] Comment on above: Order Comment: Speci men Type: ARTERIAL BLOOD SPECIMENOrdering Facility: [facility] Address: [address] [place] [address] Performed By: #### A LLBG ####[facility] LABIA [id number] [place] [address] [place] Body temperature 98.6 [degF] Normal [facility] Comment on above: Order Comment: Speci men Type: ARTERIAL BLOOD SPECIMENOrdering Facility: [facility] Address: [address] [place] [address] Performed By: #### A LLBG ####[facility] LABCLIA [id number] [place] [address] [place] Calcium.ionized (Bld) [Mass/Vol] 1.10 mmol/L Normal 1.08-1.30 [facility] Comment on above: Order Comment: Speci men Type: ARTERIAL BLOOD SPECIMENOrdering Facility: [facility] Address: [address] [place] [address] Performed By: #### A LLBG ####[facility] LABIA [id number] [place] [address] [place] Calcium.ionized adjusted to pH 7.4 (BldA) [Moles/Vol] 1.11 mmol/L Normal 1.08-1.30 [facility] Comment on above: Order Comment: Speci men Type: ARTERIAL BLOOD SPECIMENOrdering Facility: [facility] Address: [address] [place] [address] Performed By: #### A LLBG ####[facility] LABIA [id number] [place] [address] [place] Carboxyhemoglobin (BldA) [Mass fraction] 1.7 % Normal 0.0-2.0 [facility] Comment on above: Order Comment: Speci men Type: ARTERIAL BLOOD SPECIMENOrdering Facility: [facility] Address: [address] [place] [address] Result Comment: Carb oxyhemoglobin Reference Range for Smokers: 2.0-8.0% Performed By: #### A LLBG ####[facility] LABIA [id number] [place] [address] [place] CO2 (Bld) [Partial pressure] 43 mm Hg Normal 36-46 [facility] Comment on above: Order Comment: Speci men Type: ARTERIAL BLOOD SPECIMENOrdering Facility: [facility] Address: [address] [place] [address] Performed By: #### A LLBG ####[facility] LABIA [id number] [place] [address] [place] Glucose [Mass/Vol] 100 mg/dL Normal 60-105 [facility] Comment on above: Order Comment: Speci men Type: ARTERIAL BLOOD SPECIMENOrdering Facility: [facility] Address: [address] [place] [address] Performed By: #### A LLBG ####[facility] LABIA [id number] [place] [address] [place] HCO3 (Bld) [Moles/Vol] 27 mmol/L High 22-26 [facility] Comment on above: Order Comment: Speci men Type: ARTERIAL BLOOD SPECIMENOrdering Facility: [facility] Address: [address] [place] [address] Performed By: #### A LLBG ####[facility] LABCLIA [id number] [place] [address] [place] Hematocrit (Bld) [Volume fraction] 27.5 % Low 36.0-46.0 [facility] Comment on above: Order Comment: Speci men Type: ARTERIAL BLOOD SPECIMENOrdering Facility: [facility] Address: [address] [place] [address] Performed By: #### A LLBG ####[facility] LABCLIA [id number] [place] [address] [place] Hemoglobin (Bld) [Mass/Vol] 8.8 g/dL Low 11.5-15.5 [facility] Comment on above: Order Comment: Speci men Type: ARTERIAL BLOOD SPECIMENOrdering Facility: [facility] Address: [address] [place] [address] Performed By: #### A LLBG ####[facility] LABCLIA [id number] [place] [address] [place] Lactate [Moles/Vol] 0.8 mmol/L Normal 0.5-2.2 [facility] Comment on above: Order Comment: Speci men Type: ARTERIAL BLOOD SPECIMENOrdering Facility: [facility] Address: [address] [place] [address] Performed By: #### A LLBG ####[facility] LABCLIA [id number] [place] [id number] [place] Methemoglobin (Bld) [Mass fraction] 1.0 % Normal 0.0-1.5 [facility] Comment on above: Order Comment: Speci men Type: ARTERIAL BLOOD SPECIMENOrdering Facility: [facility] Address: [address] [place] [address] Performed By: #### A LLBG ####[facility] LABCLIA [id number] [address] [address] [place] O2 THERAPY NC = Nasal Cannula Normal [facility] Comment on above: Order Comment: Speci men Type: ARTERIAL BLOOD SPECIMENOrdering Facility: [facility] Address: [address] [place] [address] Performed By: #### A LLBG ####[facility] LABCLIA [id number] [place] [id number] [place] Oxygen (Bld) [Partial pressure] 130 mm Hg High 85-95 [facility] Comment on above: Order Comment: Speci men Type: ARTERIAL BLOOD SPECIMENOrdering Facility: [facility] Address: [address] [place] [address] Performed By: #### A LLBG ####[facility] LABCLIA [id number] [place] [id number] [place] Oxyhemoglobin (BldA) [Mass fraction] 96 % Normal 95-98 [facility] Comment on above: Order Comment: Speci men Type: ARTERIAL BLOOD SPECIMENOrdering Facility: [facility] Address: [address] [place] [address] Performed By: #### A LLBG ####[facility] LABCLIA [id number] [address] [address] [place] pH (Bld) 7.42 [pH] Normal 7.35-7.45 [facility] Comment on above: Order Comment: Speci men Type: ARTERIAL BLOOD SPECIMENOrdering Facility: [facility] Address: [address] [place] [address] Performed By: #### A LLBG ####[facility] LABCLIA [id number] [place] [id number] [place] Potassium [Moles/Vol] 3.7 mmol/L Normal 3.5-5.0 [facility] Comment on above: Order Comment: Speci men Type: ARTERIAL BLOOD SPECIMENOrdering Facility: [facility] Address: [address] [place] [address] Performed By: #### A LLBG ####[facility] LABCLIA [id number] [place] [address] [place] Sodium [Moles/Vol] 126 mmol/L Low 136-144 [facility] Comment on above: Order Comment: Speci men Type: ARTERIAL BLOOD SPECIMENOrdering Facility: [facility] Address: [address] [place] [address] Performed By: #### A LLBG ####[facility] LABIA [id number] [place] [address] [place] Base excess Calc (Bld) [Moles/Vol] 3 mmol/L High 0-2 [facility] Comment on above: Order Comment: Speci men Type: ARTERIAL BLOOD SPECIMENOrdering Facility: [facility] Address: [address] [place] [address] Performed By: #### A LLBG ####[facility] LABIA [id number] [place] [address] [place] Calcium.ionized (Bld) [Mass/Vol] 1.09 mmol/L Normal 1.08-1.30 [facility] Comment on above: Order Comment: Speci men Type: ARTERIAL BLOOD SPECIMENOrdering Facility: [facility] Address: [address] [place] [address] Performed By: #### A LLBG ####[facility] LABIA [id number] [place] [address] [place] Calcium.ionized adjusted to pH 7.4 (BldA) [Moles/Vol] 1.13 mmol/L Normal 1.08-1.30 [facility] Comment on above: Order Comment: Speci men Type: ARTERIAL BLOOD SPECIMENOrdering Facility: [facility] Address: [address] [place] [address] Performed By: #### A LLBG ####[facility] LABCLIA [id number] [place] [address] [place] Carboxyhemoglobin (BldA) [Mass fraction] 2.0 % Normal 0.0-2.0 [facility] Comment on above: Order Comment: Speci men Type: ARTERIAL BLOOD SPECIMENOrdering Facility: [facility] Address: [address] [place] [address] Result Comment: Carb oxyhemoglobin Reference Range for Smokers: 2.0-8.0% Performed By: #### A LLBG ####[facility] LABCLIA [id number] [place] [address] [place] CO2 (Bld) [Partial pressure] 38 mm Hg Normal 36-46 [facility] Comment on above: Order Comment: Speci men Type: ARTERIAL BLOOD SPECIMENOrdering Facility: [facility] Address: [address] [place] [address] Performed By: #### A LLBG ####[facility] LABCLIA [id number] [place] [address] [place] Glucose [Mass/Vol] 73 mg/dL Normal 60-105 [facility] Comment on above: Order Comment: Speci men Type: ARTERIAL BLOOD SPECIMENOrdering Facility: [facility] Address: [address] [place] [address] Performed By: #### A LLBG ####[facility] LABCLIA [id number] [place] [address] [place] HCO3 (Bld) [Moles/Vol] 26 mmol/L Normal 22-26 [facility] Comment on above: Order Comment: Speci men Type: ARTERIAL BLOOD SPECIMENOrdering Facility: [facility] Address: [address] [place] [address] Performed By: #### A LLBG ####[facility] LABCLIA [id number] [address] [address] [place] Hematocrit (Bld) [Volume fraction] 27.9 % Low 36.0-46.0 [facility] Comment on above: Order Comment: Speci men Type: ARTERIAL BLOOD SPECIMENOrdering Facility: [facility] Address: [address] [place] [address] Performed By: #### A LLBG ####[facility] LABCLIA [id number] [place] [id number] [place] Hemoglobin (Bld) [Mass/Vol] 9.0 g/dL Low 11.5-15.5 [facility] Comment on above: Order Comment: Speci men Type: ARTERIAL BLOOD SPECIMENOrdering Facility: [facility] Address: [address] [place] [address] Performed By: #### A LLBG ####[facility] LABIA [id number] [place] [id number] [place] Methemoglobin (Bld) [Mass fraction] 0.8 % Normal 0.0-1.5 [facility] Comment on above: Order Comment: Speci men Type: ARTERIAL BLOOD SPECIMENOrdering Facility: [facility] Address: [address] [place] [address] Performed By: #### A LLBG ####[facility] LABIA [id number] [place] [id number] [place] Oxygen (Bld) [Partial pressure] 131 mm Hg High 85-95 [facility] Comment on above: Order Comment: Speci men Type: ARTERIAL BLOOD SPECIMENOrdering Facility: [facility] Address: [address] [place] [address] Performed By: #### A LLBG ####[facility] LABCLIA [id number] [address] [address] [place] Oxyhemoglobin (BldA) [Mass fraction] 97 % Normal 95-98 [facility] Comment on above: Order Comment: Speci men Type: ARTERIAL BLOOD SPECIMENOrdering Facility: [facility] Address: [address] [place] [address] Performed By: #### A LLBG ####[facility] LABCLIA [id number] [place] [id number] [place] pH (Bld) 7.46 [pH] High 7.35-7.45 [facility] Comment on above: Order Comment: Speci men Type: ARTERIAL BLOOD SPECIMENOrdering Facility: [facility] Address: [address] [place] [address] Performed By: #### A LLBG ####[facility] LABCLIA [id number] [place] [address] [place] Potassium [Moles/Vol] 3.8 mmol/L Normal 3.5-5.0 [facility] Comment on above: Order Comment: Speci men Type: ARTERIAL BLOOD SPECIMENOrdering Facility: [facility] Address: [address] [place] [address] Performed By: #### A LLBG ####[facility] LABCLIA [id number] [place] [address] [place] Sodium [Moles/Vol] 127 mmol/L Low 136-144 [facility] Comment on above: Order Comment: Speci men Type: ARTERIAL BLOOD SPECIMENOrdering Facility: [facility] Address: [address] [place] [address] Performed By: #### A LLBG ####[facility] LABCLIA [id number] [place] [id number] [place] Base excess Calc (Bld) [Moles/Vol] 2 mmol/L Normal 0-2 [facility] Comment on above: Order Comment: Speci men Type: ARTERIAL BLOOD SPECIMENOrdering Facility: [facility] Address: [address] [place] [address] Performed By: #### A LLBG ####[facility] LABCLIA [id number] [place] [address] [place] Body temperature 98.6 [degF] Normal [facility] Comment on above: Order Comment: Speci men Type: ARTERIAL BLOOD SPECIMENOrdering Facility: [facility] Address: [address] [place] [address] Performed By: #### A LLBG ####[facility] LABCLIA [id number] [place] [address] [place] Calcium.ionized (Bld) [Mass/Vol] 1.21 mmol/L Normal 1.08-1.30 [facility] Comment on above: Order Comment: Speci men Type: ARTERIAL BLOOD SPECIMENOrdering Facility: [facility] Address: [address] [place] [address] Performed By: #### A LLBG ####[facility] LABIA [id number] [place] [address] [place] Calcium.ionized adjusted to pH 7.4 (BldA) [Moles/Vol] 1.16 mmol/L Normal 1.08-1.30 [facility] Comment on above: Order Comment: Speci men Type: ARTERIAL BLOOD SPECIMENOrdering Facility: [facility] Address: [address] [place] [address] Performed By: #### A LLBG ####[facility] LABIA [id number] [place] [address] [place] Carboxyhemoglobin (BldA) [Mass fraction] 1.3 % Normal 0.0-2.0 [facility] Comment on above: Order Comment: Speci men Type: ARTERIAL BLOOD SPECIMENOrdering Facility: [facility] Address: [address] [place] [address] Result Comment: Carb oxyhemoglobin Reference Range for Smokers: 2.0-8.0% Performed By: #### A LLBG ####[facility] LABCLIA [id number] [address] [id number] [address] [place] CO2 (Bld) [Partial pressure] 57 mm Hg High 36-46 [facility] Comment on above: Order Comment: Speci men Type: ARTERIAL BLOOD SPECIMENOrdering Facility: [facility] Address: [address] [place] [address] Performed By: #### A LLBG ####[facility] LABCLIA [id number] [place] [address] [place] Glucose [Mass/Vol] 71 mg/dL Normal 60-105 [facility] Comment on above: Order Comment: Speci men Type: ARTERIAL BLOOD SPECIMENOrdering Facility: [facility] Address: [address] [place] [address] Performed By: #### A LLBG ####[facility] LABCLIA [id number] [place] [id number] [place] HCO3 (Bld) [Moles/Vol] 28 mmol/L High 22-26 [facility] Comment on above: Order Comment: Speci men Type: ARTERIAL BLOOD SPECIMENOrdering Facility: [facility] Address: [address] [place] [address] Performed By: #### A LLBG ####[facility] LABCLIA [id number] [place] [id number] [place] Hematocrit (Bld) [Volume fraction] 27.5 % Low 36.0-46.0 [facility] Comment on above: Order Comment: Speci men Type: ARTERIAL BLOOD SPECIMENOrdering Facility: [facility] Address: [address] [place] [address] Performed By: #### A LLBG ####[facility] LABCLIA [id number] [place] [id number] [place] Hemoglobin (Bld) [Mass/Vol] 8.9 g/dL Low 11.5-15.5 [facility] Comment on above: Order Comment: Speci men Type: ARTERIAL BLOOD SPECIMENOrdering Facility: [facility] Address: [address] [place] [address] Performed By: #### A LLBG ####[facility] LABCLIA [id number] [place] [address] [place] Lactate [Moles/Vol] 0.4 mmol/L Low 0.5-2.2 [facility] Comment on above: Order Comment: Speci men Type: ARTERIAL BLOOD SPECIMENOrdering Facility: [facility] Address: [address] [place] [address] Performed By: #### A LLBG ####[facility] LABCLIA [id number] [place] [address] [place] Methemoglobin (Bld) [Mass fraction] 1.0 % Normal 0.0-1.5 [facility] Comment on above: Order Comment: Speci men Type: ARTERIAL BLOOD SPECIMENOrdering Facility: [facility] Address: [address] [place] [address] Performed By: #### A LLBG ####[facility] LABIA [id number] [place] [address] [place] O2 THERAPY NC = Nasal Cannula Normal [facility] Comment on above: Order Comment: Speci men Type: ARTERIAL BLOOD SPECIMENOrdering Facility: [facility] Address: [address] [place] [address] Performed By: #### A LLBG ####[facility] LABCLIA [id number] [place] [id number] [place] Oxygen (Bld) [Partial pressure] 99 mm Hg High 85-95 [facility] Comment on above: Order Comment: Speci men Type: ARTERIAL BLOOD SPECIMENOrdering Facility: [facility] Address: [address] [place] [address] Performed By: #### A LLBG ####[facility] LABCLIA [id number] [place] [id number] [place] Oxyhemoglobin (BldA) [Mass fraction] 95 % Normal 95-98 [facility] Comment on above: Order Comment: Speci men Type: ARTERIAL BLOOD SPECIMENOrdering Facility: [facility] Address: [address] [place] [address] Performed By: #### A LLBG ####[facility] LABCLIA [id number] [place] [address] [place] pH (Bld) 7.32 [pH] Low 7.35-7.45 [facility] Comment on above: Order Comment: Speci men Type: ARTERIAL BLOOD SPECIMENOrdering Facility: [facility] Address: [address] [place] [address] Performed By: #### A LLBG ####[facility] LABIA [id number] [place] [address] [place] Potassium [Moles/Vol] 3.8 mmol/L Normal 3.5-5.0 [facility] Comment on above: Order Comment: Speci men Type: ARTERIAL BLOOD SPECIMENOrdering Facility: [facility] Address: [address] [place] [address] Performed By: #### A LLBG ####[facility] LABIA [id number] [place] [address] [place] Sodium [Moles/Vol] 130 mmol/L Low 136-144 [facility] Comment on above: Order Comment: Speci men Type: ARTERIAL BLOOD SPECIMENOrdering Facility: [facility] Address: [address] [place] [address] Performed By: #### A LLBG ####[facility] LABIA [id number] [place] [address] [place] Base excess Calc (Bld) [Moles/Vol] 2 mmol/L Normal 0-2 [facility] Comment on above: Order Comment: Speci men Type: ARTERIAL BLOOD SPECIMENOrdering Facility: [facility] Address: [address] [place] [address] Performed By: #### A LLBG ####[facility] LABCLIA [id number] [place] [id number] [place] Body temperature 98.6 [degF] Normal [facility] Comment on above: Order Comment: Speci men Type: ARTERIAL BLOOD SPECIMENOrdering Facility: [facility] Address: [address] [place] [address] Performed By: #### A LLBG ####[facility] LABCLIA [id number] [place] [id number] [place] Order Comment: Speci men Type: VENOUS BLOOD SPECIMENOrdering Facility: [facility] Address: [address] [place] [address] Performed By: #### 2 4344-4 ####[facility] LABCLIA [id number] [place] [address] [place] Calcium.ionized (Bld) [Mass/Vol] 1.17 mmol/L Normal 1.08-1.30 [facility] Comment on above: Order Comment: Speci men Type: ARTERIAL BLOOD SPECIMENOrdering Facility: [facility] Address: [address] [place] [address] Performed By: #### A LLBG ####[facility] LABCLIA [id number] [address] [place] Calcium.ionized adjusted to pH 7.4 (BldA) [Moles/Vol] 1.11 mmol/L Normal 1.08-1.30 [facility] Comment on above: Order Comment: Speci men Type: ARTERIAL BLOOD SPECIMENOrdering Facility: [facility] Address: [address] [place] [address] Performed By: #### A LLBG ####[facility] LABCLIA [id number] [place] [id number] [place] Carboxyhemoglobin (BldA) [Mass fraction] 1.6 % Normal 0.0-2.0 [facility] Comment on above: Order Comment: Speci men Type: ARTERIAL BLOOD SPECIMENOrdering Facility: [facility] Address: [address] [place] [address] Result Comment: Carb oxyhemoglobin Reference Range for Smokers: 2.0-8.0% Performed By: #### A LLBG ####[facility] LABCLIA [id number] [place] [address] [place] CO2 (Bld) [Partial pressure] 57 mm Hg High 36-46 [facility] Comment on above: Order Comment: Speci men Type: ARTERIAL BLOOD SPECIMENOrdering Facility: [facility] Address: [address] [place] [address] Performed By: #### A LLBG ####[facility] LABCLIA [id number] [place] [address] [place] Glucose [Mass/Vol] 72 mg/dL Normal 60-105 [facility] Comment on above: Order Comment: Speci men Type: ARTERIAL BLOOD SPECIMENOrdering Facility: [facility] Address: [address] [place] [address] Performed By: #### A LLBG ####[facility] LABCLIA [id number] [place] [address] [place] HCO3 (Bld) [Moles/Vol] 28 mmol/L High 22-[address] [facility] Comment on above: Order Comment: Speci men Type: ARTERIAL BLOOD SPECIMENOrdering Facility: [facility] Address: [address] [place] [address] Performed By: #### A LLBG ####[facility] LABCLIA [id number] [place] [address] [place] Hematocrit (Bld) [Volume fraction] 28.2 % Low 36.0-46.0 [facility] Comment on above: Order Comment: Speci men Type: ARTERIAL BLOOD SPECIMENOrdering Facility: [facility] Address: [address] [place] [address] Performed By: #### A LLBG ####[facility] LABCLIA [id number] [address] [address] [place] Hemoglobin (Bld) [Mass/Vol] 9.1 g/dL Low 11.5-15.5 [facility] Comment on above: Order Comment: Speci men Type: ARTERIAL BLOOD SPECIMENOrdering Facility: [facility] Address: [address] [place] [address] Performed By: #### A LLBG ####[facility] LABIA [id number] [place] [id number] [place] Lactate [Moles/Vol] 0.6 mmol/L Normal 0.5-2.2 [facility] Comment on above: Order Comment: Speci men Type: ARTERIAL BLOOD SPECIMENOrdering Facility: [facility] Address: [address] [place] [address] Performed By: #### A LLBG ####[facility] LABIA [id number] [place] [address] [place] Methemoglobin (Bld) [Mass fraction] 0.8 % Normal 0.0-1.5 [facility] Comment on above: Order Comment: Speci men Type: ARTERIAL BLOOD SPECIMENOrdering Facility: [facility] Address: [address] [place] [address] Performed By: #### A LLBG ####[facility] LABCLIA [id number] [place] [id number] [place] O2 THERAPY NC = Nasal Cannula Normal [facility] Comment on above: Order Comment: Speci men Type: ARTERIAL BLOOD SPECIMENOrdering Facility: [facility] Address: [address] [place] [address] Performed By: #### A LLBG ####[facility] LABIA [id number] [place] [id number] [place] Order Comment: Speci men Type: VENOUS BLOOD SPECIMENOrdering Facility: [facility] Address: [address] [place] [address] Performed By: #### 2 4344-4 ####[facility] LABIA [id number] [place] [address] [place] Oxygen (Bld) [Partial pressure] 91 mm Hg Normal 85-95 [facility] Comment on above: Order Comment: Speci men Type: ARTERIAL BLOOD SPECIMENOrdering Facility: [facility] Address: [address] [place] [address] Performed By: #### A LLBG ####[facility] LABIA [id number] [place] [address] [place] Oxyhemoglobin (BldA) [Mass fraction] 94 % Low 95-98 [facility] Comment on above: Order Comment: Speci men Type: ARTERIAL BLOOD SPECIMENOrdering Facility: [facility] Address: [address] [place] [address] Performed By: #### A LLBG ####[facility] LABIA [id number] [place] [id number] [place] pH (Bld) 7.32 [pH] Low 7.35-7.45 [facility] Comment on above: Order Comment: Speci men Type: ARTERIAL BLOOD SPECIMENOrdering Facility: [facility] Address: [address] [place] [address] Performed By: #### A LLBG ####[facility] LABCLIA [id number] [place] [id number] [place] Potassium [Moles/Vol] 3.7 mmol/L Normal 3.5-5.0 [facility] Comment on above: Order Comment: Speci men Type: ARTERIAL BLOOD SPECIMENOrdering Facility: [facility] Address: [address] [place] [address] Performed By: #### A LLBG ####[facility] LABIA [id number] [place] [id number] [place] Sodium [Moles/Vol] 129 mmol/L Low 136-144 [facility] Comment on above: Order Comment: Speci men Type: ARTERIAL BLOOD SPECIMENOrdering Facility: [facility] Address: [address] [place] [address] Performed By: #### A LLBG ####[facility] LABCLIA [id number] [place] [address] [place] Order Comment: Speci men Type: VENOUS BLOOD SPECIMENOrdering Facility: [facility] Address: [address] [place] [address] Performed By: #### 2 4344-4 ####[facility] LABIA [id number] [place] [address] [place] Base excess Calc (Bld) [Moles/Vol] 1 mmol/L Normal 0-2 [facility] Comment on above: Order Comment: Speci men Type: ARTERIAL BLOOD SPECIMENOrdering Facility: [facility] Address: [address] [place] [address] Performed By: #### A LLBG ####[facility] LABIA [id number] [address] [place] Calcium.ionized (Bld) [Mass/Vol] 1.20 mmol/L Normal 1.08-1.30 [facility] Comment on above: Order Comment: Speci men Type: ARTERIAL BLOOD SPECIMENOrdering Facility: [facility] Address: [address] [place] [address] Performed By: #### A LLBG ####[facility] LABIA [id number] [place] [address] [place] Calcium.ionized adjusted to pH 7.4 (BldA) [Moles/Vol] 1.15 mmol/L Normal 1.08-1.30 [facility] Comment on above: Order Comment: Speci men Type: ARTERIAL BLOOD SPECIMENOrdering Facility: [facility] Address: [address] [place] [address] Performed By: #### A LLBG ####[facility] LABCLIA [id number] [place] [address] [place] Carboxyhemoglobin (BldA) [Mass fraction] 1.6 % Normal 0.0-2.0 [facility] Comment on above: Order Comment: Speci men Type: ARTERIAL BLOOD SPECIMENOrdering Facility: [facility] Address: [address] [place] [address] Result Comment: Carb oxyhemoglobin Reference Range for Smokers: 2.0-8.0% Performed By: #### A LLBG ####[facility] LABCLIA [id number] [place] [address] [place] CO2 (Bld) [Partial pressure] 53 mm Hg High 36-46 [facility] Comment on above: Order Comment: Speci men Type: ARTERIAL BLOOD SPECIMENOrdering Facility: [facility] Address: [address] [place] [address] Performed By: #### A LLBG ####[facility] LABCLIA [id number] [place] [address] [place] Glucose [Mass/Vol] 62 mg/dL Normal 60-105 [facility] Comment on above: Order Comment: Speci men Type: ARTERIAL BLOOD SPECIMENOrdering Facility: [facility] Address: [address] [place] [address] Performed By: #### A LLBG ####[facility] LABCLIA [id number] [place] [id number] [place] HCO3 (Bld) [Moles/Vol] 27 mmol/L High 22-26 [facility] Comment on above: Order Comment: Speci men Type: ARTERIAL BLOOD SPECIMENOrdering Facility: [facility] Address: [address] [place] [address] Performed By: #### A LLBG ####[facility] LABCLIA [id number] [address] [id number] [address] [place] Hematocrit (Bld) [Volume fraction] 25.9 % Low 36.0-46.0 [facility] Comment on above: Order Comment: Speci men Type: ARTERIAL BLOOD SPECIMENOrdering Facility: [facility] Address: [address] [place] [address] Performed By: #### A LLBG ####[facility] LABCLIA [id number] [place] [address] [place] Hemoglobin (Bld) [Mass/Vol] 8.3 g/dL Low 11.5-15.5 [facility] Comment on above: Order Comment: Speci men Type: ARTERIAL BLOOD SPECIMENOrdering Facility: [facility] Address: [address] [place] [address] Performed By: #### A LLBG ####[facility] LABIA [id number] [place] [address] [place] Methemoglobin (Bld) [Mass fraction] 0.7 % Normal 0.0-1.5 [facility] Comment on above: Order Comment: Speci men Type: ARTERIAL BLOOD SPECIMENOrdering Facility: [facility] Address: [address] [place] [address] Performed By: #### A LLBG ####[facility] LABCLIA [id number] [place] [id number] [place] Oxygen (Bld) [Partial pressure] 123 mm Hg High 85-95 [facility] Comment on above: Order Comment: Speci men Type: ARTERIAL BLOOD SPECIMENOrdering Facility: [facility] Address: [address] [place] [address] Performed By: #### A LLBG ####[facility] LABIA [id number] [place] [id number] [place] Oxyhemoglobin (BldA) [Mass fraction] 96 % Normal 95-98 [facility] Comment on above: Order Comment: Speci men Type: ARTERIAL BLOOD SPECIMENOrdering Facility: [facility] Address: [address] [place] [address] Performed By: #### A LLBG ####[facility] LABIA [id number] [place] [address] [place] pH (Bld) 7.32 [pH] Low 7.35-7.45 [facility] Comment on above: Order Comment: Speci men Type: ARTERIAL BLOOD SPECIMENOrdering Facility: [facility] Address: [address] [place] [address] Performed By: #### A LLBG ####[facility] LABIA [id number] [place] [address] [place] Base excess Calc (Bld) [Moles/Vol] 2 mmol/L Normal 0-2 [facility] Comment on above: Order Comment: Speci men Type: ARTERIAL BLOOD SPECIMENOrdering Facility: [facility] Address: [address] [place] [address] Performed By: #### A LLBG ####[facility] LABIA [id number] [place] [address] [place] Calcium.ionized (Bld) [Mass/Vol] 1.15 mmol/L Normal 1.08-1.30 [facility] Comment on above: Order Comment: Speci men Type: ARTERIAL BLOOD SPECIMENOrdering Facility: [facility] Address: [address] [place] [address] Performed By: #### A LLBG ####[facility] LABIA [id number] [place] [address] [place] Calcium.ionized adjusted to pH 7.4 (BldA) [Moles/Vol] 1.14 mmol/L Normal 1.08-1.30 [facility] Comment on above: Order Comment: Speci men Type: ARTERIAL BLOOD SPECIMENOrdering Facility: [facility] Address: [address] [place] [address] Performed By: #### A LLBG ####[facility] LABCLIA [id number] [place] [id number] [place] Carboxyhemoglobin (BldA) [Mass fraction] 1.6 % Normal 0.0-2.0 [facility] Comment on above: Order Comment: Speci men Type: ARTERIAL BLOOD SPECIMENOrdering Facility: [facility] Address: [address] [place] [address] Result Comment: Carb oxyhemoglobin Reference Range for Smokers: 2.0-8.0% Performed By: #### A LLBG ####[facility] LABIA [id number] [place] [address] [place] CO2 (Bld) [Partial pressure] 44 mm Hg Normal 36-46 [facility] Comment on above: Order Comment: Speci men Type: ARTERIAL BLOOD SPECIMENOrdering Facility: [facility] Address: [address] [place] [address] Performed By: #### A LLBG ####[facility] LABIA [id number] [place] [address] [place] Glucose [Mass/Vol] 87 mg/dL Normal 60-105 [facility] Comment on above: Order Comment: Speci men Type: ARTERIAL BLOOD SPECIMENOrdering Facility: [facility] Address: [address] [place] [address] Performed By: #### A LLBG ####[facility] LABIA [id number] [place] [id number] [place] HCO3 (Bld) [Moles/Vol] 26 mmol/L Normal 22-26 [facility] Comment on above: Order Comment: Speci men Type: ARTERIAL BLOOD SPECIMENOrdering Facility: [facility] Address: [address] [place] [address] Performed By: #### A LLBG ####[facility] LABIA [id number] [place] [id number] [place] Hematocrit (Bld) [Volume fraction] 27.0 % Low 36.0-46.0 [facility] Comment on above: Order Comment: Speci men Type: ARTERIAL BLOOD SPECIMENOrdering Facility: [facility] Address: [address] [place] [address] Performed By: #### A LLBG ####[facility] LABIA [id number] [address] [address] [place] Hemoglobin (Bld) [Mass/Vol] 8.7 g/dL Low 11.5-15.5 [facility] Comment on above: Order Comment: Speci men Type: ARTERIAL BLOOD SPECIMENOrdering Facility: [facility] Address: [address] [place] [address] Performed By: #### A LLBG ####[facility] [id number] [address] [address] [place] Lactate [Moles/Vol] 0.6 mmol/L Normal 0.5-2.2 [facility] Comment on above: Order Comment: Speci men Type: ARTERIAL BLOOD SPECIMENOrdering Facility: [facility] Address: [address] [place] [address] Performed By: #### A LLBG ####[facility] LABIA [id number] [place] [id number] [place] Methemoglobin (Bld) [Mass fraction] 1.0 % Normal 0.0-1.5 [facility] Comment on above: Order Comment: Speci men Type: ARTERIAL BLOOD SPECIMENOrdering Facility: [facility] Address: [address] [place], [place] [address] Performed By: #### A LLBG ####[facility] LABIA [id number] [address] [address] [place] Oxygen (Bld) [Partial pressure] 127 mm Hg High 85-95 [facility] Comment on above: Order Comment: Speci men Type: ARTERIAL BLOOD SPECIMENOrdering Facility: [facility] Address: [address] [place] [address] Performed By: #### A LLBG ####[facility] LABCLIA [id number] [place] [id number] [place] Oxyhemoglobin (BldA) [Mass fraction] 96 % Normal 95-98 [facility] Comment on above: Order Comment: Speci men Type: ARTERIAL BLOOD SPECIMENOrdering Facility: [facility] Address: [address] [place] [address] Performed By: #### A LLBG ####[facility] LABIA [id number] [place] [address] [place] pH (Bld) 7.39 [pH] Normal 7.35-7.45 [facility] Comment on above: Order Comment: Speci men Type: ARTERIAL BLOOD SPECIMENOrdering Facility: [facility] Address: [address] [place] [address] Performed By: #### A LLBG ####[facility] LABIA [id number] [place] [address] [place] Potassium [Moles/Vol] 4.1 mmol/L Normal 3.5-5.0 [facility] Comment on above: Order Comment: Speci men Type: ARTERIAL BLOOD SPECIMENOrdering Facility: [facility] Address: [address] [place] [address] Performed By: #### A LLBG ####[facility] LABIA [id number] [place] [id number] [place] Base excess Calc (Bld) [Moles/Vol] 1 mmol/L Normal 0-2 [facility] Comment on above: Order Comment: Speci men Type: ARTERIAL BLOOD SPECIMENOrdering Facility: [facility] Address: [address] [place] [address] Performed By: #### A LLBG ####[facility] LABIA [id number] [place] [id number] [place] Body temperature 98.6 [degF] Normal [facility] Comment on above: Order Comment: Speci men Type: ARTERIAL BLOOD SPECIMENOrdering Facility: [facility] Address: [address] [place] [address] Performed By: #### A LLBG ####[facility] LABIA [id number] [place] [address] [place] Order Comment: Speci men Type: VENOUS BLOOD SPECIMENOrdering Facility: [facility] Address: [address] [place] [address] Performed By: #### 2 4344-4 ####[facility] [id number] [place] [address] [place] Calcium.ionized (Bld) [Mass/Vol] 1.15 mmol/L Normal 1.08-1.30 [facility] Comment on above: Order Comment: Speci men Type: ARTERIAL BLOOD SPECIMENOrdering Facility: [facility] Address: [address] [place] [address] Performed By: #### A LLBG ####[facility] [id number] [place] [address] [place] Calcium.ionized adjusted to pH 7.4 (BldA) [Moles/Vol] 1.12 mmol/L Normal 1.08-1.30 [facility] Comment on above: Order Comment: Speci men Type: ARTERIAL BLOOD SPECIMENOrdering Facility: [facility] Address: [address] [place] [address] Performed By: #### A LLBG ####[facility] LABIA [id number] [place] [address] [place] Carboxyhemoglobin (BldA) [Mass fraction] 1.3 % Normal 0.0-2.0 [facility] Comment on above: Order Comment: Speci men Type: ARTERIAL BLOOD SPECIMENOrdering Facility: [facility] Address: [address] [place] [address] Result Comment: Carb oxyhemoglobin Reference Range for Smokers: 2.0-8.0% Performed By: #### A LLBG ####[facility] LABCLIA [id number] [address], [place] [address] [place] CO2 (Bld) [Partial pressure] 48 mm Hg High 36-46 [facility] Comment on above: Order Comment: Speci men Type: ARTERIAL BLOOD SPECIMENOrdering Facility: [facility] Address: [address] [place] [address] Performed By: #### A LLBG ####[facility] LABCLIA [id number] [address], [place] [address] [place] Glucose [Mass/Vol] 61 mg/dL Normal 60-105 [facility] Comment on above: Order Comment: Speci men Type: ARTERIAL BLOOD SPECIMENOrdering Facility: [facility] Address: [address] [place] [address] Performed By: #### A LLBG ####[facility] LABCLIA [id number] [place] [id number] [place] HCO3 (Bld) [Moles/Vol] 26 mmol/L Normal 22-26 [facility] Comment on above: Order Comment: Speci men Type: ARTERIAL BLOOD SPECIMENOrdering Facility: [facility] Address: [address] [place] [address] Performed By: #### A LLBG ####[facility] LABCLIA [id number] [place] [id number] [place] Hematocrit (Bld) [Volume fraction] 26.6 % Low 36.0-46.0 [facility] Comment on above: Order Comment: Speci men Type: ARTERIAL BLOOD SPECIMENOrdering Facility: [facility] Address: [address] [place] [address] Performed By: #### A LLBG ####[facility] LABCLIA [id number] [address], [facility]95 [place] Hemoglobin (Bld) [Mass/Vol] 8.5 g/dL Low 11.5-15.5 [facility] Comment on above: Order Comment: Speci men Type: ARTERIAL BLOOD SPECIMENOrdering Facility: [facility] Address: [address] [place] [id number] Performed By: #### A LLBG ####[facility] LABCLIA [id number] [address] [place] [address] [place] Lactate [Moles/Vol] 0.5 mmol/L Normal 0.5-2.2 [facility] Comment on above: Order Comment: Speci men Type: ARTERIAL BLOOD SPECIMENOrdering Facility: [facility] Address: [address] [place], [place] [address] Performed By: #### A LLBG ####[facility] LABCLIA [id number] [address] [place] [address] [place] Methemoglobin (Bld) [Mass fraction] 1.1 % Normal 0.0-1.5 [facility] Comment on above: Order Comment: Speci men Type: ARTERIAL BLOOD SPECIMENOrdering Facility: [facility] Address: [address] [place], [place] [address] Performed By: #### A LLBG ####[facility] LABCLIA [id number] [address] [place] [address] [place] O2 THERAPY NC = Nasal Cannula Normal [facility] Comment on above: Order Comment: Speci men Type: ARTERIAL BLOOD SPECIMENOrdering Facility: [facility] Address: [address] [place], [place] [address] Performed By: #### A LLBG ####[facility] LABCLIA [id number] [address] [place] [address] [place] Order Comment: Speci men Type: VENOUS BLOOD SPECIMENOrdering Facility: [facility] Address: [address] [place], [place] [address] Performed By: #### 2 4344-4 ####[facility] LABCLIA [id number] [address] [address] [place] Oxygen (Bld) [Partial pressure] 148 mm Hg High 85-95 [facility] Comment on above: Order Comment: Speci men Type: ARTERIAL BLOOD SPECIMENOrdering Facility: [facility] Address: [address] [place] [address] Performed By: #### A LLBG ####[facility] LABCLIA [id number] [place] [address] [place] Oxyhemoglobin (BldA) [Mass fraction] 97 % Normal 95-98 [facility] Comment on above: Order Comment: Speci men Type: ARTERIAL BLOOD SPECIMENOrdering Facility: [facility] Address: [address] [place] [address] Performed By: #### A LLBG ####[facility] LABCLIA [id number] [place] [address] [place] pH (Bld) 7.35 [pH] Normal 7.35-7.45 [facility] Comment on above: Order Comment: Speci men Type: ARTERIAL BLOOD SPECIMENOrdering Facility: [facility] Address: [address] [place] [address] Performed By: #### A LLBG ####[facility] LABCLIA [id number] [place] [address] [place] Potassium [Moles/Vol] 3.7 mmol/L Normal 3.5-5.0 [facility] Comment on above: Order Comment: Speci men Type: ARTERIAL BLOOD SPECIMENOrdering Facility: [facility] Address: [address] [place], [place] [address] Performed By: #### A LLBG ####[facility] LABCLIA [id number] [place] [id number] [place] Sodium [Moles/Vol] 129 mmol/L Low 136-144 [facility] Comment on above: Order Comment: Speci men Type: ARTERIAL BLOOD SPECIMENOrdering Facility: [facility] Address: [address] [place] [address] Performed By: #### A LLBG ####[facility] LABCLIA [id number] [place] [address] [place] CBC panel Auto (Bld)on 09-06 Erythrocyte distribution width (RBC) [Ratio] 14.6 % Normal 11.5-15.0 [facility] Comment on above: Order Comment: Speci men Type: BLOOD SPECIMENOrdering Facility: [facility] Address: [address] [place] [address] Performed By: #### 5 8410-2 ####[facility] LABCLIA [id number] [place] [address] [place] Hematocrit (Bld) [Volume fraction] 26.6 % Low 36.0-46.0 [facility] Comment on above: Order Comment: Speci men Type: BLOOD SPECIMENOrdering Facility: [facility] Address: [address] [place] [address] Performed By: #### 5 8410-2 ####[facility] LABIA [id number] [place] [address] [place] Hemoglobin (Bld) [Mass/Vol] 8.6 g/dL Low 11.5-15.5 [facility] Comment on above: Order Comment: Speci men Type: BLOOD SPECIMENOrdering Facility: [facility] Address: [address] [place] [address] Performed By: #### 5 8410-2 ####[facility] LABCLIA [id number] [place] [id number] [place] MCH (RBC) [Entitic mass] 29.4 pg Normal 26.0-34.0 [facility] Comment on above: Order Comment: Speci men Type: BLOOD SPECIMENOrdering Facility: [facility] Address: [address] [place] [address] Performed By: #### 5 8410-2 ####[facility] LABCLIA [id number] [place] [address] [place] MCHC (RBC) [Mass/Vol] 32.3 g/dL Normal 30.5-36.0 [facility] Comment on above: Order Comment: Speci men Type: BLOOD SPECIMENOrdering Facility: [facility] Address: [address] [place] [address] Performed By: #### 5 8410-2 ####[facility] [id number] [place] [address] [place] MCV (RBC) [Entitic vol] 90.8 fL Normal 80.0-100.0 [facility] Comment on above: Order Comment: Speci men Type: BLOOD SPECIMENOrdering Facility: [facility] Address: [address] [place] [address] Performed By: #### 5 8410-2 ####[facility] [id number] [place] [address] [place] Nucleated RBC (Bld) [#/Vol] 0.02 10*3/uL High <0.01 [facility] Comment on above: Order Comment: Speci men Type: BLOOD SPECIMENOrdering Facility: [facility] Address: [address] [place] [address] Performed By: #### 5 8410-2 ####[facility] [id number] [place] [address] [place] Platelet mean volume (Bld) [Entitic vol] 9.9 fL Normal 9.0-12.7 [facility] Comment on above: Order Comment: Speci men Type: BLOOD SPECIMENOrdering Facility: [facility] Address: [address] [place] [address] Performed By: #### 5 8410-2 ####[facility] [id number] [place] [address] [place] Platelets (Bld) [#/Vol] 232 10*3/uL Normal 150-400 [facility] Comment on above: Order Comment: Speci men Type: BLOOD SPECIMENOrdering Facility: [facility] Address: [address] [place] [address] Performed By: #### 5 8410-2 ####[facility] LABCLIA [id number] [address] [address] [place] RBC (Bld) [#/Vol] 2.93 10*6/uL Low 3.90-5.20 [facility] Comment on above: Order Comment: Speci men Type: BLOOD SPECIMENOrdering Facility: [facility] Address: [address] [place] [address] Performed By: #### 5 8410-2 ####[facility] LABCLIA [id number] [place] [id number] [place] WBC (Bld) [#/Vol] 16.44 10*3/uL High 3.70-11.00 [facility] Comment on above: Order Comment: Speci men Type: BLOOD SPECIMENOrdering Facility: [facility] Address: [address] [place] [address] Performed By: #### 5 8410-2 ####[facility] LABCLIA [id number] [address] [address] [place] Comprehensive metabolic 2000 panelon 09-06-2024 Albumin [Mass/Vol] 2.9 g/dL Low 3.9-4.9 [facility] Comment on above: Order Comment: Speci men Type: BLOOD SPECIMENOrdering Facility: [facility] Address: [address] [place] [address] Performed By: #### 2 4323-8 ####[facility] LABCLIA [id number] [address] [address] [place] ALP [Catalytic activity/Vol] 74 U/L Normal 34-123 [facility] Comment on above: Order Comment: Speci men Type: BLOOD SPECIMENOrdering Facility: [facility] Address: [address] [place] [id number] Performed By: #### 2 4323-8 ####[facility] LABCLIA [id number] [place] [id number] [place] ALT [Catalytic activity/Vol] 22 U/L Normal 7-38 [facility] Comment on above: Order Comment: Speci men Type: BLOOD SPECIMENOrdering Facility: [facility] Address: [address] [place] [address] Performed By: #### 2 4323-8 ####[facility] LABCLIA [id number] [address], [facility]95 [place] Anion gap [Moles/Vol] 10 mmol/L Normal 8-15 [facility] Comment on above: Order Comment: Speci men Type: BLOOD SPECIMENOrdering Facility: [facility] Address: [address] [place] [address] Performed By: #### 2 4323-8 ####[facility] LABCLIA [id number] [place] [id number] [place] AST [Catalytic activity/Vol] 39 U/L High 13-35 [facility] Comment on above: Order Comment: Speci men Type: BLOOD SPECIMENOrdering Facility: [facility] Address: [address] [place], [place] [address] Performed By: #### 2 4323-8 ####[facility] LABCLIA [id number] [address] [address] [place] Bilirubin [Mass/Vol] 0.3 mg/dL Normal 0.2-1.3 [facility] Comment on above: Order Comment: Speci men Type: BLOOD SPECIMENOrdering Facility: [facility] Address: [address] [place], [place] [address] Performed By: #### 2 4323-8 ####[facility] LABCLIA [id number] [address] [address] [place] Calcium [Mass/Vol] 8.3 mg/dL Low 8.5-10.2 [facility] Comment on above: Order Comment: Speci men Type: BLOOD SPECIMENOrdering Facility: [facility] Address: [address] [place] [address] Performed By: #### 2 4323-8 ####[facility] LABCLIA [id number] [facility] [place] [id number] [place] Chloride [Moles/Vol] 98 mmol/L Normal 98-107 [facility] Comment on above: Order Comment: Speci men Type: BLOOD SPECIMENOrdering Facility: [facility] Address: [address] [place] [address] Performed By: #### 2 4323-8 ####[facility] LABCLIA [id number] [place] [address] [place] CO2 [Moles/Vol] 23 mmol/L Normal 22-30 [facility] Comment on above: Order Comment: Speci men Type: BLOOD SPECIMENOrdering Facility: [facility] Address: [address] [place] [address] Performed By: #### 2 4323-8 ####[facility] LABCLIA [id number] [place] [id number] [place] Creatinine [Mass/Vol] 0.55 mg/dL Low 0.58-0.96 [facility] Comment on above: Order Comment: Speci men Type: BLOOD SPECIMENOrdering Facility: [facility] Address: [address] [place], [place] [address] Performed By: #### 2 4323-8 ####[facility] LABCLIA [id number] [place] [id number] [place] eGFRcr SerPlBld CKD-EPI 2020 114 mL/min/1.73m??? Normal >=60 [facility] Comment on above: Order Comment: Speci men Type: BLOOD SPECIMENOrdering Facility: [facility] Address: [address] [place] [address] Result Comment: Tsering mated Glomerular Filtration Rate (eGFR) is calculated using the 2020 CKD-EPI creatinine equation. This equation utilizes serum creatinine, sex, and age as parameters. The creatinine assay has traceable calibration to isotope dilution-mass spectrometry. Refer to KDIGO guidelines for clinical interpretation. In patients with unstable renal function, e.g. those with acute kidney injury, the eGFR may not accurately reflect actual GFR. Performed By: #### 2 4323-8 ####[facility] LABCLIA [id number] [place] [address] [place] Glucose [Mass/Vol] 56 mg/dL Low 74-99 [facility] Comment on above: Order Comment: Speci men Type: BLOOD SPECIMENOrdering Facility: [facility] Address: [address] [place] [address] Result Comment: The [place] [employer] (ADA) provides guidance for cutoff values for fasting glucose and random glucose. The ADA defines fasting as no caloric intake for at least 8 hours. Fasting plasma glucose results between 100 to 125 mg/dL indicate increased risk for diabetes (prediabetes).Fasting plasma glucose results greater than or equal to 126 mg/dL meet the criteria for diagnosis of diabetes. In the absence of unequivocal hyperglycemia, results should be confirmed by repeat testing. In a patient with classic symptoms of hyperglycemia or hyperglycemic crisis, random plasma glucose results greater than or equal to 200 mg/dL meet the criteria for diagnosis of diabetes.Reference: Standards of Medical Care in Diabetes 2016, [place] [employer]. Diabetes Care. 2016.39(Suppl 1). Performed By: #### 2 4323-8 ####[facility] LABCLIA [id number] [place] [address] [place] Potassium [Moles/Vol] 3.8 mmol/L Normal 3.7-5.1 [facility] Comment on above: Order Comment: Speci men Type: BLOOD SPECIMENOrdering Facility: [facility] Address: [address] [place] [address] Performed By: #### 2 4323-8 ####[facility] LABCLIA [id number] [address] [place] [address] [place] Protein [Mass/Vol] 5.5 g/dL Low 6.3-8.0 [facility] Comment on above: Order Comment: Speci men Type: BLOOD SPECIMENOrdering Facility: [facility] Address: [address] [place] [address] Performed By: #### 2 4323-8 ####[facility] LABCLIA [id number] [place] [id number] [place] Sodium [Moles/Vol] 131 mmol/L Low 136-144 [facility] Comment on above: Order Comment: Speci men Type: BLOOD SPECIMENOrdering Facility: [facility] Address: [address] [place] [address] Performed By: #### 2 4323-8 ####[facility] LABCLIA [id number] [place] [address] [place] Urea nitrogen [Mass/Vol] 13 mg/dL Normal 7-21 [facility] Comment on above: Order Comment: Speci men Type: BLOOD SPECIMENOrdering Facility: [facility] Address: [address] [place] [address] Performed By: #### 2 4323-8 ####[facility] LABIA [id number] [place] [id number] [place] Gas + CO Pnl BldVon 09-07-19 25 Body temperature 98.6 [degF] Normal [facility] Comment on above: Order Comment: Speci men Type: VENOUS BLOOD SPECIMENOrdering Facility: [facility] Address: [address] [place] [address] Performed By: #### 2 4344-4 ####[facility] LABCLIA [id number] [place] [id number] [place] Order Comment: Speci men Type: ARTERIAL BLOOD SPECIMENOrdering Facility: [facility] Address: [address] [place] [address] Performed By: #### A LLBG ####[facility] LABCLIA [id number] [place] [address] [place] Lactate [Moles/Vol] 0.5 mmol/L Normal 0.5-2.2 [facility] Comment on above: Order Comment: Speci men Type: VENOUS BLOOD SPECIMENOrdering Facility: [facility] Address: [address] [place] [address] Performed By: #### 2 4344-4 ####[facility] LABCLIA [id number] [place] [address] [place] Order Comment: Speci men Type: ARTERIAL BLOOD SPECIMENOrdering Facility: [facility] Address: [address] [place] [address] Performed By: #### A LLBG ####[facility] LABCLIA [id number] [place] [address] [place] O2 THERAPY NC = Nasal Cannula Normal [facility] Comment on above: Order Comment: Speci men Type: VENOUS BLOOD SPECIMENOrdering Facility: [facility] Address: [address] [place] [address] Performed By: #### 2 4344-4 ####[facility] LABCLIA [id number] [address] [place] Order Comment: Speci men Type: ARTERIAL BLOOD SPECIMENOrdering Facility: [facility] Address: [address] [place] [address] Performed By: #### A LLBG ####[facility] LABCLIA [id number] [place] [address] [place] Body temperature 98.6 [degF] Normal [facility] Comment on above: Order Comment: Speci men Type: VENOUS BLOOD SPECIMENOrdering Facility: [facility] Address: [address] [place] [id number] Performed By: #### 2 4344-4 ####[facility] LABCLIA [id number] [address] [address] [place] Order Comment: Speci men Type: ARTERIAL BLOOD SPECIMENOrdering Facility: [facility] Address: [address] [place], [place] [address] Performed By: #### A LLBG ####[facility] LABCLIA [id number] [address] [place] [address] [place] Lactate [Moles/Vol] 0.5 mmol/L Normal 0.5-2.2 [facility] Comment on above: Order Comment: Speci men Type: VENOUS BLOOD SPECIMENOrdering Facility: [facility] Address: [address] [place] [address] Performed By: #### 2 4344-4 ####[facility] LABCLIA [id number] [address] [place] Order Comment: Speci men Type: ARTERIAL BLOOD SPECIMENOrdering Facility: [facility] Address: [address] [place] [address] Performed By: #### A LLBG ####[facility] LABCLIA [id number] [place] [id number] [place] O2 THERAPY NC = Nasal Cannula Normal [facility] Comment on above: Order Comment: Speci men Type: VENOUS BLOOD SPECIMENOrdering Facility: [facility] Address: [address] [place] [address] Performed By: #### 2 4344-4 ####[facility] LABCLIA [id number] [place] [id number] [place] Order Comment: Speci men Type: ARTERIAL BLOOD SPECIMENOrdering Facility: [facility] Address: [address] [place], [place] [id number] Performed By: #### A LLBG ####[facility] LABCLIA [id number] [address] [address] [place] Potassium [Moles/Vol] 4.1 mmol/L Normal 3.5-5.0 [facility] Comment on above: Order Comment: Speci men Type: VENOUS BLOOD SPECIMENOrdering Facility: [facility] Address: [address] [place], [place] [address] Performed By: #### 2 4344-4 ####[facility] LABCLIA [id number] [facility] [address] [place] [address] [place] Order Comment: Speci men Type: ARTERIAL BLOOD SPECIMENOrdering Facility: [facility] Address: [address] [place], [place] [address] Performed By: #### A LLBG ####[facility] LABCLIA [id number] [address] [address] [place] Sodium [Moles/Vol] 129 mmol/L Low 136-144 [facility] Comment on above: Order Comment: Speci men Type: VENOUS BLOOD SPECIMENOrdering Facility: [facility] Address: [address] [place], [place] [address] Performed By: #### 2 4344-4 ####[facility] LABCLIA [id number] [address] [address] [place] Order Comment: Speci men Type: ARTERIAL BLOOD SPECIMENOrdering Facility: [facility] Address: [address] [place], [place] [address] Performed By: #### A LLBG ####[facility] LABCLIA [id number] [address] [place] [address] [place] Body temperature 98.6 [degF] Normal [facility] Comment on above: Order Comment: Speci men Type: VENOUS BLOOD SPECIMENOrdering Facility: [facility] Address: [address] [place], [place] [address] Performed By: #### 2 4344-4 ####[facility] LABCLIA [id number] [facility] [address] [place] [address] [place] Order Comment: Speci men Type: ARTERIAL BLOOD SPECIMENOrdering Facility: [facility] Address: [address] [place] [address] Performed By: #### A LLBG ####[facility] LABCLIA [id number] [address] [address] [place] O2 THERAPY Positive Normal [facility] Comment on above: Order Comment: Speci men Type: VENOUS BLOOD SPECIMENOrdering Facility: [facility] Address: [address] [place], [place] [address] Performed By: #### 2 4344-4 ####[facility] LABCLIA [id number] [place] [id number] [place] Order Comment: Speci men Type: ARTERIAL BLOOD SPECIMENOrdering Facility: [facility] Address: [address] [place], [place] [address] Performed By: #### A LLBG ####[facility] LABCLIA [id number] [place] [id number] [place] Sodium [Moles/Vol] 128 mmol/L Low 136-144 [facility] Comment on above: Order Comment: Speci men Type: VENOUS BLOOD SPECIMENOrdering Facility: [facility] Address: [address] [place], [place] [address] Performed By: #### 2 4344-4 ####[facility] LABCLIA [id number] [place] [id number] [place] Order Comment: Speci men Type: ARTERIAL BLOOD SPECIMENOrdering Facility: [facility] Address: [address] [place] [phone] Performed By: #### A LLBG ####[facility] LABCLIA [id number] [address] [address] [place] Gas and Carbon monoxide pane l (BldV)on 09-06-2024 Base excess Calc (BldV) [Moles/Vol] 3 mmol/L High 0-2 [facility] Comment on above: Order Comment: Speci men Type: VENOUS BLOOD SPECIMENOrdering Facility: [facility] Address: [address] [place] [address] Performed By: #### 2 4344-4 ####[facility] LABIA [id number] [place] [address] [place] Calcium.ionized (Bld) [Mass/Vol] 1.13 mmol/L Normal 1.08-1.30 [facility] Comment on above: Order Comment: Speci men Type: VENOUS BLOOD SPECIMENOrdering Facility: [facility] Address: [address] [place] [address] Performed By: #### 2 4344-4 ####[facility] [id number] [place] [address] [place] Calcium.ionized adjusted to pH 7.4 (BldA) [Moles/Vol] 1.07 mmol/L Low 1.08-1.30 [facility] Comment on above: Order Comment: Speci men Type: VENOUS BLOOD SPECIMENOrdering Facility: [facility] Address: [address] [place] [address] Performed By: #### 2 4344-4 ####[facility] [id number] [place] [address] [place] Carboxyhemoglobin (BldV) [Mass fraction] 1.4 % Normal 0.0-2.0 [facility] Comment on above: Order Comment: Speci men Type: VENOUS BLOOD SPECIMENOrdering Facility: [facility] Address: [address] [place] [address] Result Comment: Carb oxyhemoglobin Reference Range for Smokers: 2.0-8.0% Performed By: #### 2 4344-4 ####[facility] LABIA [id number] [place] [address] [place] CO2 (BldV) [Partial pressure] 61 mm[Hg] High 42-55 [facility] Comment on above: Order Comment: Speci men Type: VENOUS BLOOD SPECIMENOrdering Facility: [facility] Address: [address] [place] [address] Performed By: #### 2 4344-4 ####[facility] LABCLIA [id number] [place] [id number] [place] Glucose [Mass/Vol] 68 mg/dL Normal 60-105 [facility] Comment on above: Order Comment: Speci men Type: VENOUS BLOOD SPECIMENOrdering Facility: [facility] Address: [address] [place] [address] Performed By: #### 2 4344-4 ####[facility] LABCLIA [id number] [place] [address] [place] HCO3 (Bld) [Moles/Vol] 29 mmol/L High 24-28 [facility] Comment on above: Order Comment: Speci men Type: VENOUS BLOOD SPECIMENOrdering Facility: [facility] Address: [address] [place] [address] Performed By: #### 2 4344-4 ####[facility] LABCLIA [id number] [place] [address] [place] Hematocrit (Bld) [Volume fraction] 26.3 % Low 36.0-46.0 [facility] Comment on above: Order Comment: Speci men Type: VENOUS BLOOD SPECIMENOrdering Facility: [facility] Address: [address] [place] [address] Performed By: #### 2 4344-4 ####[facility] LABCLIA [id number] [place] [id number] [place] Hemoglobin (Bld) [Mass/Vol] 8.5 g/dL Low 11.5-15.5 [facility] Comment on above: Order Comment: Speci men Type: VENOUS BLOOD SPECIMENOrdering Facility: [facility] Address: [address] [place] [address] Performed By: #### 2 4344-4 ####[facility] LABCLIA [id number] [address] [address] [place] Methemoglobin (Bld) [Mass fraction] 1.0 % Normal 0.0-1.5 [facility] Comment on above: Order Comment: Speci men Type: VENOUS BLOOD SPECIMENOrdering Facility: [facility] Address: [address] [place], [place] [address] Performed By: #### 2 4344-4 ####[facility] LABCLIA [id number] [place] [id number] [place] Oxygen (BldV) [Partial pressure] 37 mm[Hg] Normal 35-45 [facility] Comment on above: Order Comment: Speci men Type: VENOUS BLOOD SPECIMENOrdering Facility: [facility] Address: [address] [place] [address] Performed By: #### 2 4344-4 ####[facility] LABCLIA [id number] [place] [id number] [place] Oxygen saturation in Venous blood 57 % Low 60-85 [facility] Comment on above: Order Comment: Speci men Type: VENOUS BLOOD SPECIMENOrdering Facility: [facility] Address: [address] [place], [place] [address] Performed By: #### 2 4344-4 ####[facility] LABCLIA [id number] [place] [id number] [place] Oxyhemoglobin (BldV) [Mass fraction] 56 % Low 60-85 [facility] Comment on above: Order Comment: Speci men Type: VENOUS BLOOD SPECIMENOrdering Facility: [facility] Address: [address] [place], [place] [address] Performed By: #### 2 4344-4 ####[facility] LABCLIA [id number] [address] [address] [place] pH (BldV) 7.30 [pH] Low 7.32-7.42 [facility] Comment on above: Order Comment: Speci men Type: VENOUS BLOOD SPECIMENOrdering Facility: [facility] Address: [address] [place] [id number] Performed By: #### 2 4344-4 ####[facility] LABCLIA [id number] [address] [address] [place] Potassium [Moles/Vol] 3.6 mmol/L Normal 3.5-5.0 [facility] Comment on above: Order Comment: Speci men Type: VENOUS BLOOD SPECIMENOrdering Facility: [facility] Address: [address] [place], [place] [address] Performed By: #### 2 4344-4 ####[facility] LABIA [id number] [place] [id number] [place] Sodium [Moles/Vol] 129 mmol/L Low 136-144 [facility] Comment on above: Order Comment: Speci men Type: VENOUS BLOOD SPECIMENOrdering Facility: [facility] Address: [address] [place] [address] Performed By: #### 2 4344-4 ####[facility] LABCLIA [id number] [place] [id number] [place] Base excess Calc (BldV) [Moles/Vol] 2 mmol/L Normal 0-2 [facility] Comment on above: Order Comment: Speci men Type: VENOUS BLOOD SPECIMENOrdering Facility: [facility] Address: [address] [place], [place] [address] Performed By: #### 2 4344-4 ####[facility] LABCLIA [id number] [address] [address] [place] Calcium.ionized (Bld) [Mass/Vol] 1.14 mmol/L Normal 1.08-1.30 [facility] Comment on above: Order Comment: Speci men Type: VENOUS BLOOD SPECIMENOrdering Facility: [facility] Address: [address] [place], [place] [address] Performed By: #### 2 4344-4 ####[facility] LABIA [id number] [address] [address] [place] Calcium.ionized adjusted to pH 7.4 (BldA) [Moles/Vol] 1.09 mmol/L Normal 1.08-1.30 [facility] Comment on above: Order Comment: Speci men Type: VENOUS BLOOD SPECIMENOrdering Facility: [facility] Address: [address] [place] [address] Performed By: #### 2 4344-4 ####[facility] LABIA [id number] [place] [address] [place] Carboxyhemoglobin (BldV) [Mass fraction] 1.1 % Normal 0.0-2.0 [facility] Comment on above: Order Comment: Speci men Type: VENOUS BLOOD SPECIMENOrdering Facility: [facility] Address: [address] [place] [address] Result Comment: Carb oxyhemoglobin Reference Range for Smokers: 2.0-8.0% Performed By: #### 2 4344-4 ####[facility] LABIA [id number] [place] [address] [place] CO2 (BldV) [Partial pressure] 59 mm[Hg] High 42-55 [facility] Comment on above: Order Comment: Speci men Type: VENOUS BLOOD SPECIMENOrdering Facility: [facility] Address: [address] [place] [address] Performed By: #### 2 4344-4 ####[facility] LABIA [id number] [place] [address] [place] Glucose [Mass/Vol] 70 mg/dL Normal 60-105 [facility] Comment on above: Order Comment: Speci men Type: VENOUS BLOOD SPECIMENOrdering Facility: [facility] Address: [address] [place] [address] Performed By: #### 2 4344-4 ####[facility] LABIA [id number] [place] [address] [place] HCO3 (Bld) [Moles/Vol] 29 mmol/L High 24-28 [facility] Comment on above: Order Comment: Speci men Type: VENOUS BLOOD SPECIMENOrdering Facility: [facility] Address: [address] [place] [address] Performed By: #### 2 4344-4 ####[facility] LABIA [id number] [place] [address] [place] Hematocrit (Bld) [Volume fraction] 27.3 % Low 36.0-46.0 [facility] Comment on above: Order Comment: Speci men Type: VENOUS BLOOD SPECIMENOrdering Facility: [facility] Address: [address] [place] [address] Performed By: #### 2 4344-4 ####[facility] LABIA [id number] [place] [address] [place] Hemoglobin (Bld) [Mass/Vol] 8.8 g/dL Low 11.5-15.5 [facility] Comment on above: Order Comment: Speci men Type: VENOUS BLOOD SPECIMENOrdering Facility: [facility] Address: [address] [place] [address] Performed By: #### 2 4344-4 ####[facility] LABIA [id number] [place] [address] [place] Lactate [Moles/Vol] 0.5 mmol/L Normal 0.5-2.2 [facility] Comment on above: Order Comment: Speci men Type: VENOUS BLOOD SPECIMENOrdering Facility: [facility] Address: [address] [place] [address] Performed By: #### 2 4344-4 ####[facility] LABIA [id number] [place] [id number] [place] Methemoglobin (Bld) [Mass fraction] 1.1 % Normal 0.0-1.5 [facility] Comment on above: Order Comment: Speci men Type: VENOUS BLOOD SPECIMENOrdering Facility: [facility] Address: [address] [place] [id number] Performed By: #### 2 4344-4 ####[facility] LABCLIA [id number] [address] [address] [place] Oxygen (BldV) [Partial pressure] 37 mm[Hg] Normal 35-45 [facility] Comment on above: Order Comment: Speci men Type: VENOUS BLOOD SPECIMENOrdering Facility: [facility] Address: [address] [place], [place] [address] Performed By: #### 2 4344-4 ####[facility] LABCLIA [id number] [address] [address] [place] Oxygen saturation in Venous blood 59 % Low 60-85 [facility] Comment on above: Order Comment: Speci men Type: VENOUS BLOOD SPECIMENOrdering Facility: [facility] Address: [address] [place], [place] [address] Performed By: #### 2 4344-4 ####[facility] LABCLIA [id number] [address] [address] [place] Oxyhemoglobin (BldV) [Mass fraction] 58 % Low 60-85 [facility] Comment on above: Order Comment: Speci men Type: VENOUS BLOOD SPECIMENOrdering Facility: [facility] Address: [address] [place], [place] [address] Performed By: #### 2 4344-4 ####[facility] LABCLIA [id number] [address] [address] [place] pH (BldV) 7.31 [pH] Low 7.32-7.42 [facility] Comment on above: Order Comment: Speci men Type: VENOUS BLOOD SPECIMENOrdering Facility: [facility] Address: [address] [place], [place] [address] Performed By: #### 2 4344-4 ####[facility] LABCLIA [id number] [place] [address] [place] Potassium [Moles/Vol] 3.6 mmol/L Normal 3.5-5.0 [facility] Comment on above: Order Comment: Speci men Type: VENOUS BLOOD SPECIMENOrdering Facility: [facility] Address: [address] [place] [address] Performed By: #### 2 4344-4 ####[facility] LABIA [id number] [place] [address] [place] Base excess Calc (BldV) [Moles/Vol] 2 mmol/L Normal 0-2 [facility] Comment on above: Order Comment: Speci men Type: VENOUS BLOOD SPECIMENOrdering Facility: [facility] Address: [address] [place] [address] Performed By: #### 2 4344-4 ####[facility] LABIA [id number] [place] [address] [place] Calcium.ionized (Bld) [Mass/Vol] 1.18 mmol/L Normal 1.08-1.30 [facility] Comment on above: Order Comment: Speci men Type: VENOUS BLOOD SPECIMENOrdering Facility: [facility] Address: [address] [place] [address] Performed By: #### 2 4344-4 ####[facility] LABIA [id number] [place] [address] [place] Calcium.ionized adjusted to pH 7.4 (BldA) [Moles/Vol] 1.13 mmol/L Normal 1.08-1.30 [facility] Comment on above: Order Comment: Speci men Type: VENOUS BLOOD SPECIMENOrdering Facility: [facility] Address: [address] [place] [address] Performed By: #### 2 4344-4 ####[facility] LABIA [id number] [address] [address] [place] [address] [place] Carboxyhemoglobin (BldV) [Mass fraction] 1.4 % Normal 0.0-2.0 [facility] Comment on above: Order Comment: Speci men Type: VENOUS BLOOD SPECIMENOrdering Facility: [facility] Address: [address] [place] [address] Result Comment: Carb oxyhemoglobin Reference Range for Smokers: 2.0-8.0% Performed By: #### 2 4344-4 ####[facility] LABCLIA [id number] [place] [address] [place] CO2 (BldV) [Partial pressure] 56 mm[Hg] High 42-55 [facility] Comment on above: Order Comment: Speci men Type: VENOUS BLOOD SPECIMENOrdering Facility: [facility] Address: [address] [place] [address] Performed By: #### 2 4344-4 ####[facility] LABCLIA [id number] [place] [address] [place] Glucose [Mass/Vol] 63 mg/dL Normal 60-105 [facility] Comment on above: Order Comment: Speci men Type: VENOUS BLOOD SPECIMENOrdering Facility: [facility] Address: [address] [place] [address] Performed By: #### 2 4344-4 ####[facility] LABIA [id number] [place] [address] [place] HCO3 (Bld) [Moles/Vol] 28 mmol/L Normal 24-28 [facility] Comment on above: Order Comment: Speci men Type: VENOUS BLOOD SPECIMENOrdering Facility: [facility] Address: [address] [place] [address] Performed By: #### 2 4344-4 ####[facility] LABCLIA [id number] [place] [id number] [place] Hematocrit (Bld) [Volume fraction] 26.3 % Low 36.0-46.0 [facility] Comment on above: Order Comment: Speci men Type: VENOUS BLOOD SPECIMENOrdering Facility: [facility] Address: [address] [place] [id number] Performed By: #### 2 4344-4 ####[facility] LABCLIA [id number] [address] [address] [place] Hemoglobin (Bld) [Mass/Vol] 8.5 g/dL Low 11.5-15.5 [facility] Comment on above: Order Comment: Speci men Type: VENOUS BLOOD SPECIMENOrdering Facility: [facility] Address: [address] [place], [place] [address] Performed By: #### 2 4344-4 ####[facility] LABCLIA [id number] [place] [id number] [place] Methemoglobin (Bld) [Mass fraction] 1.2 % Normal 0.0-1.5 [facility] Comment on above: Order Comment: Speci men Type: VENOUS BLOOD SPECIMENOrdering Facility: [facility] Address: [address] [place] [address] Performed By: #### 2 4344-4 ####[facility] LABCLIA [id number] [place] [address] [place] Oxygen (BldV) [Partial pressure] 39 mm[Hg] Normal 35-45 [facility] Comment on above: Order Comment: Speci men Type: VENOUS BLOOD SPECIMENOrdering Facility: [facility] Address: [address] [place] [address] Performed By: #### 2 4344-4 ####[facility] LABCLIA [id number] [place] [id number] [place] Oxygen saturation in Venous blood 64 % Normal 60-85 [facility] Comment on above: Order Comment: Speci men Type: VENOUS BLOOD SPECIMENOrdering Facility: [facility] Address: [address] [place], [place] [address] Performed By: #### 2 4344-4 ####[facility] LABCLIA [id number] [place] [address] [place] Oxyhemoglobin (BldV) [Mass fraction] 62 % Normal 60-85 [facility] Comment on above: Order Comment: Speci men Type: VENOUS BLOOD SPECIMENOrdering Facility: [facility] Address: [address] [place] [address] Performed By: #### 2 4344-4 ####[facility] LABIA [id number] [place] [address] [place] pH (BldV) 7.32 [pH] Normal 7.32-7.42 [facility] Comment on above: Order Comment: Speci men Type: VENOUS BLOOD SPECIMENOrdering Facility: [facility] Address: [address] [place] [address] Performed By: #### 2 4344-4 ####[facility] LABIA [id number] [place] [address] [place] Base excess Calc (BldV) [Moles/Vol] 2 mmol/L Normal 0-2 [facility] Comment on above: Order Comment: Speci men Type: VENOUS BLOOD SPECIMENOrdering Facility: [facility] Address: [address] [place] [address] Performed By: #### 2 4344-4 ####[facility] [facility] LABIA [id number] [place] [address] [place] Calcium.ionized (Bld) [Mass/Vol] 1.13 mmol/L Normal 1.08-1.30 [facility] Comment on above: Order Comment: Speci men Type: VENOUS BLOOD SPECIMENOrdering Facility: [facility] Address: [address] [place] [address] Performed By: #### 2 4344-4 ####[facility] LABIA [id number] [place] [address] [place] Calcium.ionized adjusted to pH 7.4 (BldA) [Moles/Vol] 1.10 mmol/L Normal 1.08-1.30 [facility] Comment on above: Order Comment: Speci men Type: VENOUS BLOOD SPECIMENOrdering Facility: [facility] Address: [address] [place] [address] Performed By: #### 2 4344-4 ####[facility] LABCLIA [id number] [place] [address] [place] Carboxyhemoglobin (BldV) [Mass fraction] 1.3 % Normal 0.0-2.0 [facility] Comment on above: Order Comment: Speci men Type: VENOUS BLOOD SPECIMENOrdering Facility: [facility] Address: [address] [place] [address] Result Comment: Carb oxyhemoglobin Reference Range for Smokers: 2.0-8.0% Performed By: #### 2 4344-4 ####[facility] LABCLIA [id number] [place] [address] [place] CO2 (BldV) [Partial pressure] 52 mm[Hg] Normal 42-55 [facility] Comment on above: Order Comment: Speci men Type: VENOUS BLOOD SPECIMENOrdering Facility: [facility] Address: [address] [place] [address] Performed By: #### 2 4344-4 ####[facility] LABCLIA [id number] [place] [address] [place] Glucose [Mass/Vol] 88 mg/dL Normal 60-105 [facility] Comment on above: Order Comment: Speci men Type: VENOUS BLOOD SPECIMENOrdering Facility: [facility] Address: [address] [place] [address] Performed By: #### 2 4344-4 ####[facility] LABCLIA [id number] [place] [id number] [place] HCO3 (Bld) [Moles/Vol] 28 mmol/L Normal 24-28 [facility] Comment on above: Order Comment: Speci men Type: VENOUS BLOOD SPECIMENOrdering Facility: [facility] Address: [address] [place] [address] Performed By: #### 2 4344-4 ####[facility] LABIA [id number] [place] [address] [place] Hematocrit (Bld) [Volume fraction] 26.2 % Low 36.0-46.0 [facility] Comment on above: Order Comment: Speci men Type: VENOUS BLOOD SPECIMENOrdering Facility: [facility] Address: [address] [place] [address] Performed By: #### 2 4344-4 ####[facility] LABIA [id number] [place] [address] [place] Hemoglobin (Bld) [Mass/Vol] 8.4 g/dL Low 11.5-15.5 [facility] Comment on above: Order Comment: Speci men Type: VENOUS BLOOD SPECIMENOrdering Facility: [facility] Address: [address] [place] [address] Performed By: #### 2 4344-4 ####[facility] LABIA [id number] [place] [address] [place] Lactate [Moles/Vol] 0.5 mmol/L Normal 0.5-2.2 [facility] Comment on above: Order Comment: Speci men Type: VENOUS BLOOD SPECIMENOrdering Facility: [facility] Address: [address] [place] [address] Performed By: #### 2 4344-4 ####[facility] LABIA [id number] [place] [address] [place] Methemoglobin (Bld) [Mass fraction] 1.1 % Normal 0.0-1.5 [facility] Comment on above: Order Comment: Speci men Type: VENOUS BLOOD SPECIMENOrdering Facility: [facility] Address: [address] [place] [address] Performed By: #### 2 4344-4 ####[facility] LABCLIA [id number] [address] [address] [place] Oxygen (BldV) [Partial pressure] 40 mm[Hg] Normal 35-45 [facility] Comment on above: Order Comment: Speci men Type: VENOUS BLOOD SPECIMENOrdering Facility: [facility] Address: [address] [place] [address] Performed By: #### 2 4344-4 ####[facility] LABCLIA [id number] [address] [address] [place] Oxygen saturation in Venous blood 68 % Normal 60-85 [facility] Comment on above: Order Comment: Speci men Type: VENOUS BLOOD SPECIMENOrdering Facility: [facility] Address: [address] [place] [address] Performed By: #### 2 4344-4 ####[facility] LABIA [id number] [place] [id number] [place] Oxyhemoglobin (BldV) [Mass fraction] 66 % Normal 60-85 [facility] Comment on above: Order Comment: Speci men Type: VENOUS BLOOD SPECIMENOrdering Facility: [facility] Address: [address] [place] [address] Performed By: #### 2 4344-4 ####[facility] LABIA [id number] [address] [address] [place] pH (BldV) 7.35 [pH] Normal 7.32-7.42 [facility] Comment on above: Order Comment: Speci men Type: VENOUS BLOOD SPECIMENOrdering Facility: [facility] Address: [address] [place], [place] [address] Performed By: #### 2 4344-4 ####[facility] LABIA [id number] [address] [address] [place] Potassium [Moles/Vol] 4.0 mmol/L Normal 3.5-5.0 [facility] Comment on above: Order Comment: Speci men Type: VENOUS BLOOD SPECIMENOrdering Facility: [facility] Address: [address] [place] [address] Performed By: #### 2 4344-4 ####[facility] LABIA [id number] [place] [address] [place] Base excess Calc (BldV) [Moles/Vol] 2 mmol/L Normal 0-2 [facility] Comment on above: Order Comment: Speci men Type: VENOUS BLOOD SPECIMENOrdering Facility: [facility] Address: [address] [place] [address] Performed By: #### 2 4344-4 ####[facility] LABIA [id number] [place] [address] [place] Calcium.ionized (Bld) [Mass/Vol] 1.13 mmol/L Normal 1.08-1.30 [facility] Comment on above: Order Comment: Speci men Type: VENOUS BLOOD SPECIMENOrdering Facility: [facility] Address: [address] [place] [address] Performed By: #### 2 4344-4 ####[facility] [id number] [place] [address] [place] Calcium.ionized adjusted to pH 7.4 (BldA) [Moles/Vol] 1.09 mmol/L Normal 1.08-1.30 [facility] Comment on above: Order Comment: Speci men Type: VENOUS BLOOD SPECIMENOrdering Facility: [facility] Address: [address] [place], [place] [address] Performed By: #### 2 4344-4 ####[facility] LABIA [id number] [place] [id number] [place] Carboxyhemoglobin (BldV) [Mass fraction] 1.4 % Normal 0.0-2.0 [facility] Comment on above: Order Comment: Speci men Type: VENOUS BLOOD SPECIMENOrdering Facility: [facility] Address: [address] [place] [address] Result Comment: Carb oxyhemoglobin Reference Range for Smokers: 2.0-8.0% Performed By: #### 2 4344-4 ####[facility] LABCLIA [id number] [address] [address] [place] CO2 (BldV) [Partial pressure] 56 mm[Hg] High 42-55 [facility] Comment on above: Order Comment: Speci men Type: VENOUS BLOOD SPECIMENOrdering Facility: [facility] Address: [address] [place] [address] Performed By: #### 2 4344-4 ####[facility] LABCLIA [id number] [place] [address] [place] Glucose [Mass/Vol] 60 mg/dL Normal 60-105 [facility] Comment on above: Order Comment: Speci men Type: VENOUS BLOOD SPECIMENOrdering Facility: [facility] Address: [address] [place] [address] Performed By: #### 2 4344-4 ####[facility] LABIA [id number] [place] [address] [place] HCO3 (Bld) [Moles/Vol] 28 mmol/L Normal 24-28 [facility] Comment on above: Order Comment: Speci men Type: VENOUS BLOOD SPECIMENOrdering Facility: [facility] Address: [address] [place] [address] Performed By: #### 2 4344-4 ####[facility] LABIA [id number] [place] [id number] [place] Hematocrit (Bld) [Volume fraction] 26.0 % Low 36.0-46.0 [facility] Comment on above: Order Comment: Speci men Type: VENOUS BLOOD SPECIMENOrdering Facility: [facility] Address: [address] [place] [address] Performed By: #### 2 4344-4 ####[facility] LABCLIA [id number] [address] [address] [place] Hemoglobin (Bld) [Mass/Vol] 8.4 g/dL Low 11.5-15.5 [facility] Comment on above: Order Comment: Speci men Type: VENOUS BLOOD SPECIMENOrdering Facility: [facility] Address: [address] [place] [address] Performed By: #### 2 4344-4 ####[facility] LABIA [id number] [place] [id number] [place] Lactate [Moles/Vol] 0.6 mmol/L Normal 0.5-2.2 [facility] Comment on above: Order Comment: Speci men Type: VENOUS BLOOD SPECIMENOrdering Facility: [facility] Address: [address] [place] [address] Performed By: #### 2 4344-4 ####[facility] LABIA [id number] [place] [address] [place] Methemoglobin (Bld) [Mass fraction] 0.8 % Normal 0.0-1.5 [facility] Comment on above: Order Comment: Speci men Type: VENOUS BLOOD SPECIMENOrdering Facility: [facility] Address: [address] [place] [address] Performed By: #### 2 4344-4 ####[facility] LABIA [id number] [place] [address] [place] Oxygen (BldV) [Partial pressure] 42 mm[Hg] Normal 35-45 [facility] Comment on above: Order Comment: Speci men Type: VENOUS BLOOD SPECIMENOrdering Facility: [facility] Address: [address] [place] [address] Performed By: #### 2 4344-4 ####[facility] LABIA [id number] [place] [id number] [place] Oxygen saturation in Venous blood 71 % Normal 60-85 [facility] Comment on above: Order Comment: Speci men Type: VENOUS BLOOD SPECIMENOrdering Facility: [facility] Address: [address] [place] [address] Performed By: #### 2 4344-4 ####[facility] LABCLIA [id number] [address] [address] [place] Oxyhemoglobin (BldV) [Mass fraction] 69 % Normal 60-85 [facility] Comment on above: Order Comment: Speci men Type: VENOUS BLOOD SPECIMENOrdering Facility: [facility] Address: [address] [place] [address] Performed By: #### 2 4344-4 ####[facility] LABIA [id number] [address] [address] [place] pH (BldV) 7.32 [pH] Normal 7.32-7.42 [facility] Comment on above: Order Comment: Speci men Type: VENOUS BLOOD SPECIMENOrdering Facility: [facility] Address: [address] [place], [place] [address] Performed By: #### 2 4344-4 ####[facility] LABIA [id number] [address] [address] [place] Potassium [Moles/Vol] 3.6 mmol/L Normal 3.5-5.0 [facility] Comment on above: Order Comment: Speci men Type: VENOUS BLOOD SPECIMENOrdering Facility: [facility] Address: [address] [place] [address] Performed By: #### 2 4344-4 ####[facility] LABIA [id number] [address] [address] [place] Sodium [Moles/Vol] 130 mmol/L Low 136-144 [facility] Comment on above: Order Comment: Speci men Type: VENOUS BLOOD SPECIMENOrdering Facility: [facility] Address: [address] [place], [place] [address] Performed By: #### 2 4344-4 ####[facility] LABIA [id number] [place] [address] [place] XR CHEST 1V FRONTAL PORTon 0 09-06-2024 XR CHEST 1V FRONTAL PORT Normal [facility] ALLIED HEALTHon 09-05-2024 ALLIED HEALTH Normal [facility] ALLIED HEALTH HNO ID: [id number] Author: LEXY MORALES Chaplain Service: Process Group Author Type: Type: Allied Health Filed: 09/05/2024 15:03 Note Text: The patient was anointed. Normal [facility] ARTERIAL BLOOD GASESon 09-05 Base excess Calc (Bld) [Moles/Vol] 2 mmol/L Normal 0-2 [facility] Comment on above: Order Comment: Speci men Type: ARTERIAL BLOOD SPECIMENOrdering Facility: [facility] Address: [address] [place] [address] Performed By: #### A LLBG ####[facility] LABIA [id number] [place] [address] [place] Calcium.ionized (Bld) [Mass/Vol] 1.14 mmol/L Normal 1.08-1.30 [facility] Comment on above: Order Comment: Speci men Type: ARTERIAL BLOOD SPECIMENOrdering Facility: [facility] Address: [address] [place] [address] Performed By: #### A LLBG ####[facility] LABIA [id number] [place] [address] [place] Calcium.ionized adjusted to pH 7.4 (BldA) [Moles/Vol] 1.16 mmol/L Normal 1.08-1.30 [facility] Comment on above: Order Comment: Speci men Type: ARTERIAL BLOOD SPECIMENOrdering Facility: [facility] Address: [address] [place] [address] Performed By: #### A LLBG ####[facility] LABCLIA [id number] [place] [address] [place] Carboxyhemoglobin (BldA) [Mass fraction] 1.4 % Normal 0.0-2.0 [facility] Comment on above: Order Comment: Speci men Type: ARTERIAL BLOOD SPECIMENOrdering Facility: [facility] Address: [address] [place] [address] Result Comment: Carb oxyhemoglobin Reference Range for Smokers: 2.0-8.0% Performed By: #### A LLBG ####[facility] LABCLIA [id number] [place] [address] [place] CO2 (Bld) [Partial pressure] 41 mm Hg Normal 36-46 [facility] Comment on above: Order Comment: Speci men Type: ARTERIAL BLOOD SPECIMENOrdering Facility: [facility] Address: [address] [place] [address] Performed By: #### A LLBG ####[facility] LABCLIA [id number] [place] [address] [place] Glucose [Mass/Vol] 67 mg/dL Normal 60-105 [facility] Comment on above: Order Comment: Speci men Type: ARTERIAL BLOOD SPECIMENOrdering Facility: [facility] Address: [address] [place] [address] Performed By: #### A LLBG ####[facility] LABCLIA [id number] [place] [address] [place] HCO3 (Bld) [Moles/Vol] 26 mmol/L Normal 22-26 [facility] Comment on above: Order Comment: Speci men Type: ARTERIAL BLOOD SPECIMENOrdering Facility: [facility] Address: [address] [place] [address] Performed By: #### A LLBG ####[facility] LABCLIA [id number] [place] [id number] [place] Hematocrit (Bld) [Volume fraction] 27.1 % Low 36.0-46.0 [facility] Comment on above: Order Comment: Speci men Type: ARTERIAL BLOOD SPECIMENOrdering Facility: [facility] Address: [address] [place] [address] Performed By: #### A LLBG ####[facility] LABCLIA [id number] [address] [address] [place] Hemoglobin (Bld) [Mass/Vol] 8.7 g/dL Low 11.5-15.5 [facility] Comment on above: Order Comment: Speci men Type: ARTERIAL BLOOD SPECIMENOrdering Facility: [facility] Address: [address] [place] [address] Performed By: #### A LLBG ####[facility] LABIA [id number] [place] [address] [place] Lactate [Moles/Vol] 0.5 mmol/L Normal 0.5-2.2 [facility] Comment on above: Order Comment: Speci men Type: ARTERIAL BLOOD SPECIMENOrdering Facility: [facility] Address: [address] [place] [address] Performed By: #### A LLBG ####[facility] LABIA [id number] [place] [address] [place] Methemoglobin (Bld) [Mass fraction] 1.2 % Normal 0.0-1.5 [facility] Comment on above: Order Comment: Speci men Type: ARTERIAL BLOOD SPECIMENOrdering Facility: [facility] Address: [address] [place] [address] Performed By: #### A LLBG ####[facility] LABIA [id number] [place] [id number] [place] Oxygen (Bld) [Partial pressure] 122 mm Hg High 85-95 [facility] Comment on above: Order Comment: Speci men Type: ARTERIAL BLOOD SPECIMENOrdering Facility: [facility] Address: [address] [place] [address] Performed By: #### A LLBG ####[facility] LABCLIA [id number] [address] [address] [place] Oxyhemoglobin (BldA) [Mass fraction] 96 % Normal 95-98 [facility] Comment on above: Order Comment: Speci men Type: ARTERIAL BLOOD SPECIMENOrdering Facility: [facility] Address: [address] [place] [address] Performed By: #### A LLBG ####[facility] LABCLIA [id number] [place] [address] [place] pH (Bld) 7.42 [pH] Normal 7.35-7.45 [facility] Comment on above: Order Comment: Speci men Type: ARTERIAL BLOOD SPECIMENOrdering Facility: [facility] Address: [address] [place] [address] Performed By: #### A LLBG ####[facility] LABCLIA [id number] [place] [address] [place] Sodium [Moles/Vol] 130 mmol/L Low 136-144 [facility] Comment on above: Order Comment: Speci men Type: ARTERIAL BLOOD SPECIMENOrdering Facility: [facility] Address: [address] [place] [address] Performed By: #### A LLBG ####[facility] LABCLIA [id number] [place] [address] [place] Base excess Calc (Bld) [Moles/Vol] 2 mmol/L Normal 0-2 [facility] Comment on above: Order Comment: Speci men Type: ARTERIAL BLOOD SPECIMENOrdering Facility: [facility] Address: [address] [place] [address] Performed By: #### A LLBG ####[facility] LABCLIA [id number] [place] [id number] [place] Body temperature 98.6 [degF] Normal [facility] Comment on above: Order Comment: Speci men Type: ARTERIAL BLOOD SPECIMENOrdering Facility: [facility] Address: [address] [place] [address] Performed By: #### A LLBG ####[facility] LABCLIA [id number] [place] [address] [place] Order Comment: Speci men Type: VENOUS BLOOD SPECIMENOrdering Facility: [facility] Address: [address] [place] [address] Performed By: #### 2 4344-4 ####[facility] LABCLIA [id number] [place] [address] [place] Calcium.ionized (Bld) [Mass/Vol] 1.13 mmol/L Normal 1.08-1.30 [facility] Comment on above: Order Comment: Speci men Type: ARTERIAL BLOOD SPECIMENOrdering Facility: [facility] Address: [address] [place] [address] Performed By: #### A LLBG ####[facility] LABIA [id number] [place] [address] [place] Calcium.ionized adjusted to pH 7.4 (BldA) [Moles/Vol] 1.16 mmol/L Normal 1.08-1.30 [facility] Comment on above: Order Comment: Speci men Type: ARTERIAL BLOOD SPECIMENOrdering Facility: [facility] Address: [address] [place] [address] Performed By: #### A LLBG ####[facility] LABIA [id number] [place] [address] [place] Carboxyhemoglobin (BldA) [Mass fraction] 1.9 % Normal 0.0-2.0 [facility] Comment on above: Order Comment: Speci men Type: ARTERIAL BLOOD SPECIMENOrdering Facility: [facility] Address: [address] [place] [address] Result Comment: Carb oxyhemoglobin Reference Range for Smokers: 2.0-8.0% Performed By: #### A LLBG ####[facility] LABCLIA [id number] [address] [place] [address] [place] CO2 (Bld) [Partial pressure] 35 mm Hg Low 36-46 [facility] Comment on above: Order Comment: Speci men Type: ARTERIAL BLOOD SPECIMENOrdering Facility: [facility] Address: [address] [place] [address] Performed By: #### A LLBG ####[facility] LABCLIA [id number] [place] [id number] [place] Glucose [Mass/Vol] 69 mg/dL Normal 60-105 [facility] Comment on above: Order Comment: Speci men Type: ARTERIAL BLOOD SPECIMENOrdering Facility: [facility] Address: [address] [place] [address] Performed By: #### A LLBG ####[facility] LABCLIA [id number] [place] [id number] [place] HCO3 (Bld) [Moles/Vol] 25 mmol/L Normal 22-26 [facility] Comment on above: Order Comment: Speci men Type: ARTERIAL BLOOD SPECIMENOrdering Facility: [facility] Address: [address] [place] [address] Performed By: #### A LLBG ####[facility] LABCLIA [id number] [place] [id number] [place] Hematocrit (Bld) [Volume fraction] 27.4 % Low 36.0-46.0 [facility] Comment on above: Order Comment: Speci men Type: ARTERIAL BLOOD SPECIMENOrdering Facility: [facility] Address: [address] [place] [address] Performed By: #### A LLBG ####[facility] LABCLIA [id number] [facility] [address] [place] [address] [place] Hemoglobin (Bld) [Mass/Vol] 8.8 g/dL Low 11.5-15.5 [facility] Comment on above: Order Comment: Speci men Type: ARTERIAL BLOOD SPECIMENOrdering Facility: [facility] Address: [address] [place] [id number] Performed By: #### A LLBG ####[facility] LABCLIA [id number] [address] [place] [address] [place] Lactate [Moles/Vol] 0.9 mmol/L Normal 0.5-2.2 [facility] Comment on above: Order Comment: Speci men Type: ARTERIAL BLOOD SPECIMENOrdering Facility: [facility] Address: [address] [place] [id number] Performed By: #### A LLBG ####[facility] LABCLIA [id number] [address] [place] [address] [place] Methemoglobin (Bld) [Mass fraction] 1.0 % Normal 0.0-1.5 [facility] Comment on above: Order Comment: Speci men Type: ARTERIAL BLOOD SPECIMENOrdering Facility: [facility] Address: [address] [place] [address] Performed By: #### A LLBG ####[facility] LABCLIA [id number] [address] [address] [place] O2 THERAPY NC = Nasal Cannula Normal [facility] Comment on above: Order Comment: Speci men Type: ARTERIAL BLOOD SPECIMENOrdering Facility: [facility] Address: [address] [place] [address] Performed By: #### A LLBG ####[facility] LABCLIA [id number] [address] [place] [address] [place] Order Comment: Speci men Type: VENOUS BLOOD SPECIMENOrdering Facility: [facility] Address: [address] [place], [place] [address] Performed By: #### 2 4344-4 ####[facility] LABCLIA [id number] [address] [place] [address] [place] Oxygen (Bld) [Partial pressure] 109 mm Hg High 85-95 [facility] Comment on above: Order Comment: Speci men Type: ARTERIAL BLOOD SPECIMENOrdering Facility: [facility] Address: [address] [place] [address] Performed By: #### A LLBG ####[facility] LABCLIA [id number] [address] [address] [place] Oxyhemoglobin (BldA) [Mass fraction] 96 % Normal 95-98 [facility] Comment on above: Order Comment: Speci men Type: ARTERIAL BLOOD SPECIMENOrdering Facility: [facility] Address: [address] [place] [address] Performed By: #### A LLBG ####[facility] LABIA [id number] [place] [id number] [place] pH (Bld) 7.46 [pH] High 7.35-7.45 [facility] Comment on above: Order Comment: Speci men Type: ARTERIAL BLOOD SPECIMENOrdering Facility: [facility] Address: [address] [place] [address] Performed By: #### A LLBG ####[facility] LABIA [id number] [place] [address] [place] Potassium [Moles/Vol] 3.8 mmol/L Normal 3.5-5.0 [facility] Comment on above: Order Comment: Speci men Type: ARTERIAL BLOOD SPECIMENOrdering Facility: [facility] Address: [address] [place] [address] Performed By: #### A LLBG ####[facility] LABIA [id number] [place] [id number] [place] Sodium [Moles/Vol] 132 mmol/L Low 136-144 [facility] Comment on above: Order Comment: Speci men Type: ARTERIAL BLOOD SPECIMENOrdering Facility: [facility] Address: [address] [place] [address] Performed By: #### A LLBG ####[facility] LABIA [id number] [place] [address] [place] Base excess Calc (Bld) [Moles/Vol] 2 mmol/L Normal 0-2 [facility] Comment on above: Order Comment: Speci men Type: ARTERIAL BLOOD SPECIMENOrdering Facility: [facility] Address: [address] [place] [address] Performed By: #### A LLBG ####[facility] LABIA [id number] [place] [address] [place] Calcium.ionized (Bld) [Mass/Vol] 1.16 mmol/L Normal 1.08-1.30 [facility] Comment on above: Order Comment: Speci men Type: ARTERIAL BLOOD SPECIMENOrdering Facility: [facility] Address: [address] [place] [address] Performed By: #### A LLBG ####[facility] [id number] [place] [address] [place] Calcium.ionized adjusted to pH 7.4 (BldA) [Moles/Vol] 1.13 mmol/L Normal 1.08-1.30 [facility] Comment on above: Order Comment: Speci men Type: ARTERIAL BLOOD SPECIMENOrdering Facility: [facility] Address: [address] [place] [address] Performed By: #### A LLBG ####[facility] [id number] [place] [address] [place] Carboxyhemoglobin (BldA) [Mass fraction] 1.6 % Normal 0.0-2.0 [facility] Comment on above: Order Comment: Speci men Type: ARTERIAL BLOOD SPECIMENOrdering Facility: [facility] Address: [address] [place] [address] Result Comment: Carb oxyhemoglobin Reference Range for Smokers: 2.0-8.0% Performed By: #### A LLBG ####[facility] LABCLIA [id number] [address] [place] [address] [place] CO2 (Bld) [Partial pressure] 51 mm Hg High 36-46 [facility] Comment on above: Order Comment: Speci men Type: ARTERIAL BLOOD SPECIMENOrdering Facility: [facility] Address: [address] [place] [address] Performed By: #### A LLBG ####[facility] LABCLIA [id number] [address] [place] [address] [place] Glucose [Mass/Vol] 76 mg/dL Normal 60-105 [facility] Comment on above: Order Comment: Speci men Type: ARTERIAL BLOOD SPECIMENOrdering Facility: [facility] Address: [address] [place] [address] Performed By: #### A LLBG ####[facility] LABCLIA [id number] [place] [address] [place] HCO3 (Bld) [Moles/Vol] 27 mmol/L High 22-26 [facility] Comment on above: Order Comment: Speci men Type: ARTERIAL BLOOD SPECIMENOrdering Facility: [facility] Address: [address] [place] [address] Performed By: #### A LLBG ####[facility] LABCLIA [id number] [address], [facility]95 [place] Hematocrit (Bld) [Volume fraction] 27.9 % Low 36.0-46.0 [facility] Comment on above: Order Comment: Speci men Type: ARTERIAL BLOOD SPECIMENOrdering Facility: [facility] Address: [address] [place], [place] [id number] Performed By: #### A LLBG ####[facility] LABCLIA [id number] [address], [facility]95 [place] Hemoglobin (Bld) [Mass/Vol] 9.0 g/dL Low 11.5-15.5 [facility] Comment on above: Order Comment: Speci men Type: ARTERIAL BLOOD SPECIMENOrdering Facility: [facility] Address: [address] [place], [place] [address] Performed By: #### A LLBG ####[facility] LABIA [id number] [address] [address] [place] Lactate [Moles/Vol] 0.6 mmol/L Normal 0.5-2.2 [facility] Comment on above: Order Comment: Speci men Type: ARTERIAL BLOOD SPECIMENOrdering Facility: [facility] Address: [address] [place], [place] [address] Performed By: #### A LLBG ####[facility] LABCLIA [id number] [place] [address] [place] Methemoglobin (Bld) [Mass fraction] 1.9 % High 0.0-1.5 [facility] Comment on above: Order Comment: Speci men Type: ARTERIAL BLOOD SPECIMENOrdering Facility: [facility] Address: [address] [place], [place] [id number] Performed By: #### A LLBG ####[facility] LABCLIA [id number] [place] [id number] [place] Oxygen (Bld) [Partial pressure] 119 mm Hg High 85-95 [facility] Comment on above: Order Comment: Speci men Type: ARTERIAL BLOOD SPECIMENOrdering Facility: [facility] Address: [address] [place] [address] Performed By: #### A LLBG ####[facility] LABCLIA [id number] [address] [address] [place] Oxyhemoglobin (BldA) [Mass fraction] 95 % Normal 95-98 [facility] Comment on above: Order Comment: Speci men Type: ARTERIAL BLOOD SPECIMENOrdering Facility: [facility] Address: [address] [place], [place] [id number] Performed By: #### A LLBG ####[facility] LABCLIA [id number] [address] [address] [place] pH (Bld) 7.35 [pH] Normal 7.35-7.45 [facility] Comment on above: Order Comment: Speci men Type: ARTERIAL BLOOD SPECIMENOrdering Facility: [facility] Address: [address] [place] [address] Performed By: #### A LLBG ####[facility] LABCLIA [id number] [place] [address] [place] Potassium [Moles/Vol] 3.9 mmol/L Normal 3.5-5.0 [facility] Comment on above: Order Comment: Speci men Type: ARTERIAL BLOOD SPECIMENOrdering Facility: [facility] Address: [address] [place] [address] Performed By: #### A LLBG ####[facility] LABCLIA [id number] [place] [address] [place] Sodium [Moles/Vol] 132 mmol/L Low 136-144 [facility] Comment on above: Order Comment: Speci men Type: ARTERIAL BLOOD SPECIMENOrdering Facility: [facility] Address: [address] [place] [address] Performed By: #### A LLBG ####[facility] LABIA [id number] [place] [address] [place] Base excess Calc (Bld) [Moles/Vol] 2 mmol/L Normal 0-2 [facility] Comment on above: Order Comment: Speci men Type: ARTERIAL BLOOD SPECIMENOrdering Facility: [facility] Address: [address] [place], [place] [address] Performed By: #### A LLBG ####[facility] LABCLIA [id number] [place] [id number] [place] Body temperature 98.6 [degF] Normal [facility] Comment on above: Order Comment: Speci men Type: ARTERIAL BLOOD SPECIMENOrdering Facility: [facility] Address: [address] [place] [address] Performed By: #### A LLBG ####[facility] LABCLIA [id number] [place] [address] [place] Order Comment: Speci men Type: VENOUS BLOOD SPECIMENOrdering Facility: [facility] Address: [address] [place] [address] Performed By: #### 2 4344-4 ####[facility] LABCLIA [id number] [place] [address] [place] Calcium.ionized (Bld) [Mass/Vol] 1.16 mmol/L Normal 1.08-1.30 [facility] Comment on above: Order Comment: Speci men Type: ARTERIAL BLOOD SPECIMENOrdering Facility: [facility] Address: [address] [place] [address] Performed By: #### A LLBG ####[facility] LABCLIA [id number] [place] [address] [place] Calcium.ionized adjusted to pH 7.4 (BldA) [Moles/Vol] 1.15 mmol/L Normal 1.08-1.30 [facility] Comment on above: Order Comment: Speci men Type: ARTERIAL BLOOD SPECIMENOrdering Facility: [facility] Address: [address] [place] [address] Performed By: #### A LLBG ####[facility] LABIA [id number] [place] [address] [place] Carboxyhemoglobin (BldA) [Mass fraction] 1.4 % Normal 0.0-2.0 [facility] Comment on above: Order Comment: Speci men Type: ARTERIAL BLOOD SPECIMENOrdering Facility: [facility] Address: [address] [place] [address] Result Comment: Carb oxyhemoglobin Reference Range for Smokers: 2.0-8.0% Performed By: #### A LLBG ####[facility] LABCLIA [id number] [facility] [address] [place] [address] [place] CO2 (Bld) [Partial pressure] 46 mm Hg Normal 36-46 [facility] Comment on above: Order Comment: Speci men Type: ARTERIAL BLOOD SPECIMENOrdering Facility: [facility] Address: [address] [place] [address] Performed By: #### A LLBG ####[facility] LABCLIA [id number] [address] [place] [address] [place] Glucose [Mass/Vol] 80 mg/dL Normal 60-105 [facility] Comment on above: Order Comment: Speci men Type: ARTERIAL BLOOD SPECIMENOrdering Facility: [facility] Address: [address] [place] [address] Performed By: #### A LLBG ####[facility] LABCLIA [id number] [address], [facility]95 [place] HCO3 (Bld) [Moles/Vol] 27 mmol/L High 22-26 [facility] Comment on above: Order Comment: Speci men Type: ARTERIAL BLOOD SPECIMENOrdering Facility: [facility] Address: [address] [place] [address] Performed By: #### A LLBG ####[facility] LABCLIA [id number] [address], [facility]95 [place] Hematocrit (Bld) [Volume fraction] 27.5 % Low 36.0-46.0 [facility] Comment on above: Order Comment: Speci men Type: ARTERIAL BLOOD SPECIMENOrdering Facility: [facility] Address: [address] [place], [place] [address] Performed By: #### A LLBG ####[facility] LABCLIA [id number] [address], [facility]95 [place] Hemoglobin (Bld) [Mass/Vol] 8.9 g/dL Low 11.5-15.5 [facility] Comment on above: Order Comment: Speci men Type: ARTERIAL BLOOD SPECIMENOrdering Facility: [facility] Address: [address] [place] [id number] Performed By: #### A LLBG ####[facility] LABCLIA [id number] [address] [place] [address] [place] Lactate [Moles/Vol] 0.6 mmol/L Normal 0.5-2.2 [facility] Comment on above: Order Comment: Speci men Type: ARTERIAL BLOOD SPECIMENOrdering Facility: [facility] Address: [address] [place], [place] [address] Performed By: #### A LLBG ####[facility] LABCLIA [id number] [address] [place] Order Comment: Speci men Type: VENOUS BLOOD SPECIMENOrdering Facility: [facility] Address: [address] [place] [address] Performed By: #### 2 4344-4 ####[facility] LABCLIA [id number] [place] [id number] [place] Methemoglobin (Bld) [Mass fraction] 1.0 % Normal 0.0-1.5 [facility] Comment on above: Order Comment: Speci men Type: ARTERIAL BLOOD SPECIMENOrdering Facility: [facility] Address: [address] [place], [place] [address] Performed By: #### A LLBG ####[facility] LABCLIA [id number] [place] [id number] [place] O2 THERAPY NC = Nasal Cannula Normal [facility] Comment on above: Order Comment: Speci men Type: ARTERIAL BLOOD SPECIMENOrdering Facility: [facility] Address: [address] [place], [place] [address] Performed By: #### A LLBG ####[facility] LABCLIA [id number] [place] [id number] [place] Order Comment: Speci men Type: VENOUS BLOOD SPECIMENOrdering Facility: [facility] Address: [address] [place] [address] Performed By: #### 2 4344-4 ####[facility] LABCLIA [id number] [place] [address] [place] Oxygen (Bld) [Partial pressure] 82 mm Hg Low 85-95 [facility] Comment on above: Order Comment: Speci men Type: ARTERIAL BLOOD SPECIMENOrdering Facility: [facility] Address: [address] [place] [address] Performed By: #### A LLBG ####[facility] LABCLIA [id number] [place] [address] [place] Oxyhemoglobin (BldA) [Mass fraction] 93 % Low 95-98 [facility] Comment on above: Order Comment: Speci men Type: ARTERIAL BLOOD SPECIMENOrdering Facility: [facility] Address: [address] [place] [address] Performed By: #### A LLBG ####[facility] LABIA [id number] [place] [id number] [place] pH (Bld) 7.39 [pH] Normal 7.35-7.45 [facility] Comment on above: Order Comment: Speci men Type: ARTERIAL BLOOD SPECIMENOrdering Facility: [facility] Address: [address] [place] [address] Performed By: #### A LLBG ####[facility] LABCLIA [id number] [place] [id number] [place] Potassium [Moles/Vol] 3.9 mmol/L Normal 3.5-5.0 [facility] Comment on above: Order Comment: Speci men Type: ARTERIAL BLOOD SPECIMENOrdering Facility: [facility] Address: [address] [place] [address] Performed By: #### A LLBG ####[facility] LABCLIA [id number] [place] [id number] [place] Order Comment: Speci men Type: VENOUS BLOOD SPECIMENOrdering Facility: [facility] Address: [address] [place] [id number] Performed By: #### 2 4344-4 ####[facility] LABCLIA [id number] [facility] [address] [place] [address] [place] Sodium [Moles/Vol] 133 mmol/L Low 136-144 [facility] Comment on above: Order Comment: Speci men Type: ARTERIAL BLOOD SPECIMENOrdering Facility: [facility] Address: [address] [place], [place] [address] Performed By: #### A LLBG ####[facility] LABCLIA [id number] [address], [facility]95 [place] Order Comment: Speci men Type: VENOUS BLOOD SPECIMENOrdering Facility: [facility] Address: [address] [place] [address] Performed By: #### 2 4344-4 ####[facility] LABCLIA [id number] [address] [place] [address] [place] Base excess Calc (Bld) [Moles/Vol] 1 mmol/L Normal 0-2 [facility] Comment on above: Order Comment: Speci men Type: ARTERIAL BLOOD SPECIMENOrdering Facility: [facility] Address: [address] [place], [place] [address] Performed By: #### A LLBG ####[facility] LABCLIA [id number] [address] [place] [address] [place] Body temperature 98.6 [degF] Normal [facility] Comment on above: Order Comment: Speci men Type: ARTERIAL BLOOD SPECIMENOrdering Facility: [facility] Address: [address] [place] [address] Performed By: #### A LLBG ####[facility] LABCLIA [id number] [address] [address] [place] Order Comment: Speci men Type: VENOUS BLOOD SPECIMENOrdering Facility: [facility] Address: [address] [place] [address] Performed By: #### 2 4344-4 ####[facility] [id number] [place] [address] [place] Calcium.ionized (Bld) [Mass/Vol] 1.18 mmol/L Normal 1.08-1.30 [facility] Comment on above: Order Comment: Speci men Type: ARTERIAL BLOOD SPECIMENOrdering Facility: [facility] Address: [address] [place] [address] Performed By: #### A LLBG ####[facility] [id number] [place] [address] [place] Calcium.ionized adjusted to pH 7.4 (BldA) [Moles/Vol] 1.15 mmol/L Normal 1.08-1.30 [facility] Comment on above: Order Comment: Speci men Type: ARTERIAL BLOOD SPECIMENOrdering Facility: [facility] Address: [address] [place] [address] Performed By: #### A LLBG ####[facility] [id number] [place] [address] [place] Carboxyhemoglobin (BldA) [Mass fraction] 1.3 % Normal 0.0-2.0 [facility] Comment on above: Order Comment: Speci men Type: ARTERIAL BLOOD SPECIMENOrdering Facility: [facility] Address: [address] [place] [address] Result Comment: Carb oxyhemoglobin Reference Range for Smokers: 2.0-8.0% Performed By: #### A LLBG ####[facility] [id number] [place] [address] [place] CO2 (Bld) [Partial pressure] 48 mm Hg High 36-46 [facility] Comment on above: Order Comment: Speci men Type: ARTERIAL BLOOD SPECIMENOrdering Facility: [facility] Address: [address] [place] [address] Performed By: #### A LLBG ####[facility] LABCLIA [id number] [place] [id number] [place] Glucose [Mass/Vol] 99 mg/dL Normal 60-105 [facility] Comment on above: Order Comment: Speci men Type: ARTERIAL BLOOD SPECIMENOrdering Facility: [facility] Address: [address] [place] [address] Performed By: #### A LLBG ####[facility] LABCLIA [id number] [place] [id number] [place] HCO3 (Bld) [Moles/Vol] 26 mmol/L Normal 22-26 [facility] Comment on above: Order Comment: Speci men Type: ARTERIAL BLOOD SPECIMENOrdering Facility: [facility] Address: [address] [place] [address] Performed By: #### A LLBG ####[facility] LABCLIA [id number] [place] [id number] [place] Hematocrit (Bld) [Volume fraction] 28.3 % Low 36.0-46.0 [facility] Comment on above: Order Comment: Speci men Type: ARTERIAL BLOOD SPECIMENOrdering Facility: [facility] Address: [address] [place] [address] Performed By: #### A LLBG ####[facility] LABCLIA [id number] [place] [id number] [place] Hemoglobin (Bld) [Mass/Vol] 9.1 g/dL Low 11.5-15.5 [facility] Comment on above: Order Comment: Speci men Type: ARTERIAL BLOOD SPECIMENOrdering Facility: [facility] Address: [address] [place] [address] Performed By: #### A LLBG ####[facility] LABCLIA [id number] [address] [address] [place] Order Comment: Speci men Type: VENOUS BLOOD SPECIMENOrdering Facility: [facility] Address: [address] [place] [id number] Performed By: #### 2 4344-4 ####[facility] LABCLIA [id number] [address] [place] [address] [place] Lactate [Moles/Vol] 0.6 mmol/L Normal 0.5-2.2 [facility] Comment on above: Order Comment: Speci men Type: ARTERIAL BLOOD SPECIMENOrdering Facility: [facility] Address: [address] [place], [place] [address] Performed By: #### A LLBG ####[facility] LABCLIA [id number] [address] [address] [place] Methemoglobin (Bld) [Mass fraction] 0.6 % Normal 0.0-1.5 [facility] Comment on above: Order Comment: Speci men Type: ARTERIAL BLOOD SPECIMENOrdering Facility: [facility] Address: [address] [place] [address] Performed By: #### A LLBG ####[facility] LABCLIA [id number] [place] [id number] [place] O2 THERAPY [place] = Nasal Cannula Normal [facility] Comment on above: Order Comment: Speci men Type: ARTERIAL BLOOD SPECIMENOrdering Facility: [facility] Address: [address] [place], [place] [address] Performed By: #### A LLBG ####[facility] LABCLIA [id number] [address] [place] [address] [place] Order Comment: Speci men Type: VENOUS BLOOD SPECIMENOrdering Facility: [facility] Address: [address] [place], [place] [address] Performed By: #### 2 4344-4 ####[facility] LABCLIA [id number] [address] [address] [place] Oxygen (Bld) [Partial pressure] 96 mm Hg High 85-95 [facility] Comment on above: Order Comment: Speci men Type: ARTERIAL BLOOD SPECIMENOrdering Facility: [facility] Address: [address] [place] [address] Performed By: #### A LLBG ####[facility] LABCLIA [id number] [address] [address] [place] Oxyhemoglobin (BldA) [Mass fraction] 95 % Normal 95-98 [facility] Comment on above: Order Comment: Speci men Type: ARTERIAL BLOOD SPECIMENOrdering Facility: [facility] Address: [address] [place] [address] Performed By: #### A LLBG ####[facility] LABCLIA [id number] [address] [address] [place] pH (Bld) 7.36 [pH] Normal 7.35-7.45 [facility] Comment on above: Order Comment: Speci men Type: ARTERIAL BLOOD SPECIMENOrdering Facility: [facility] Address: [address] [place] [address] Performed By: #### A LLBG ####[facility] LABCLIA [id number] [place] [id number] [place] Potassium [Moles/Vol] 3.8 mmol/L Normal 3.5-5.0 [facility] Comment on above: Order Comment: Speci men Type: ARTERIAL BLOOD SPECIMENOrdering Facility: [facility] Address: [address] [place] [address] Performed By: #### A LLBG ####[facility] LABCLIA [id number] [place] [id number] [place] Order Comment: Speci men Type: VENOUS BLOOD SPECIMENOrdering Facility: [facility] Address: [address] [place] [address] Performed By: #### 2 4344-4 ####[facility] LABCLIA [id number] [address] [address] [place] Sodium [Moles/Vol] 135 mmol/L Low 136-144 [facility] Comment on above: Order Comment: Speci men Type: ARTERIAL BLOOD SPECIMENOrdering Facility: [facility] Address: [address] [place] [address] Performed By: #### A LLBG ####[facility] LABCLIA [id number] [address], [facility]95 [place] Base excess Calc (Bld) [Moles/Vol] 2 mmol/L Normal 0-2 [facility] Comment on above: Order Comment: Speci men Type: ARTERIAL BLOOD SPECIMENOrdering Facility: [facility] Address: [address] [place] [address] Performed By: #### A LLBG ####[facility] LABCLIA [id number] [place] [address] [place] Body temperature 98.6 [degF] Normal [facility] Comment on above: Order Comment: Speci men Type: ARTERIAL BLOOD SPECIMENOrdering Facility: [facility] Address: [address] [place] [address] Performed By: #### A LLBG ####[facility] LABCLIA [id number] [place] [id number] [place] Order Comment: Speci men Type: VENOUS BLOOD SPECIMENOrdering Facility: [facility] Address: [address] [place] [address] Performed By: #### 2 4344-4 ####[facility] LABCLIA [id number] [place] [id number] [place] Calcium.ionized (Bld) [Mass/Vol] 1.16 mmol/L Normal 1.08-1.30 [facility] Comment on above: Order Comment: Speci men Type: ARTERIAL BLOOD SPECIMENOrdering Facility: [facility] Address: [address] [place] [address] Performed By: #### A LLBG ####[facility] LABIA [id number] [place] [address] [place] Calcium.ionized adjusted to pH 7.4 (BldA) [Moles/Vol] 1.14 mmol/L Normal 1.08-1.30 [facility] Comment on above: Order Comment: Speci men Type: ARTERIAL BLOOD SPECIMENOrdering Facility: [facility] Address: [address] [place] [address] Performed By: #### A LLBG ####[facility] LABIA [id number] [place] [address] [place] Carboxyhemoglobin (BldA) [Mass fraction] 1.4 % Normal 0.0-2.0 [facility] Comment on above: Order Comment: Speci men Type: ARTERIAL BLOOD SPECIMENOrdering Facility: [facility] Address: [address] [place] [address] Result Comment: Carb oxyhemoglobin Reference Range for Smokers: 2.0-8.0% Performed By: #### A LLBG ####[facility] LABIA [id number] [place] [address] [place] CO2 (Bld) [Partial pressure] 46 mm Hg Normal 36-46 [facility] Comment on above: Order Comment: Speci men Type: ARTERIAL BLOOD SPECIMENOrdering Facility: [facility] Address: [address] [place] [address] Performed By: #### A LLBG ####[facility] LABIA [id number] [place] [address] [place] Glucose [Mass/Vol] 103 mg/dL Normal 60-105 [facility] Comment on above: Order Comment: Speci men Type: ARTERIAL BLOOD SPECIMENOrdering Facility: [facility] Address: [address] [place] [address] Performed By: #### A LLBG ####[facility] LABIA [id number] [address] [place] [address] [place] HCO3 (Bld) [Moles/Vol] 27 mmol/L High 22-26 [facility] Comment on above: Order Comment: Speci men Type: ARTERIAL BLOOD SPECIMENOrdering Facility: [facility] Address: [address] [place] [address] Performed By: #### A LLBG ####[facility] LABCLIA [id number] [address], [place] [address] [place] Hematocrit (Bld) [Volume fraction] 29.2 % Low 36.0-46.0 [facility] Comment on above: Order Comment: Speci men Type: ARTERIAL BLOOD SPECIMENOrdering Facility: [facility] Address: [address] [place] [address] Performed By: #### A LLBG ####[facility] LABCLIA [id number] [place] [address] [place] Hemoglobin (Bld) [Mass/Vol] 9.4 g/dL Low 11.5-15.5 [facility] Comment on above: Order Comment: Speci men Type: ARTERIAL BLOOD SPECIMENOrdering Facility: [facility] Address: [address] [place] [address] Performed By: #### A LLBG ####[facility] LABIA [id number] [place] [address] [place] Lactate [Moles/Vol] 0.7 mmol/L Normal 0.5-2.2 [facility] Comment on above: Order Comment: Speci men Type: ARTERIAL BLOOD SPECIMENOrdering Facility: [facility] Address: [address] [place] [address] Performed By: #### A LLBG ####[facility] LABCLIA [id number] [place] [address] [place] Order Comment: Speci men Type: VENOUS BLOOD SPECIMENOrdering Facility: [facility] Address: [address] [place] [address] Performed By: #### 2 4344-4 ####[facility] LABCLIA [id number] [address] [place] [address] [place] Methemoglobin (Bld) [Mass fraction] 1.0 % Normal 0.0-1.5 [facility] Comment on above: Order Comment: Speci men Type: ARTERIAL BLOOD SPECIMENOrdering Facility: [facility] Address: [address] [place] [address] Performed By: #### A LLBG ####[facility] LABCLIA [id number] [address] [place] [address] [place] Order Comment: Speci men Type: VENOUS BLOOD SPECIMENOrdering Facility: [facility] Address: [address] [place] [address] Performed By: #### 2 4344-4 ####[facility] LABCLIA [id number] [address] [address] [place] O2 THERAPY NC = Nasal Cannula Normal [facility] Comment on above: Order Comment: Speci men Type: ARTERIAL BLOOD SPECIMENOrdering Facility: [facility] Address: [address] [place] [address] Performed By: #### A LLBG ####[facility] LABCLIA [id number] [address] [address] [place] Order Comment: Speci men Type: VENOUS BLOOD SPECIMENOrdering Facility: [facility] Address: [address] [place] [address] Performed By: #### 2 4344-4 ####[facility] LABCLIA [id number] [address] [address] [place] Oxygen (Bld) [Partial pressure] 111 mm Hg High 85-95 [facility] Comment on above: Order Comment: Speci men Type: ARTERIAL BLOOD SPECIMENOrdering Facility: [facility] Address: [address] [place], [place] [address] Performed By: #### A LLBG ####[facility] LABCLIA [id number] [address] [address] [place] Oxyhemoglobin (BldA) [Mass fraction] 96 % Normal 95-98 [facility] Comment on above: Order Comment: Speci men Type: ARTERIAL BLOOD SPECIMENOrdering Facility: [facility] Address: [address] [place] [address] Performed By: #### A LLBG ####[facility] LABCLIA [id number] [address] [address] [place] pH (Bld) 7.38 [pH] Normal 7.35-7.45 [facility] Comment on above: Order Comment: Speci men Type: ARTERIAL BLOOD SPECIMENOrdering Facility: [facility] Address: [address] [place] [address] Performed By: #### A LLBG ####[facility] LABCLIA [id number] [place] [address] [place] Potassium [Moles/Vol] 4.0 mmol/L Normal 3.5-5.0 [facility] Comment on above: Order Comment: Speci men Type: ARTERIAL BLOOD SPECIMENOrdering Facility: [facility] Address: [address] [place] [address] Performed By: #### A LLBG ####[facility] LABCLIA [id number] [place] [id number] [place] Order Comment: Speci men Type: VENOUS BLOOD SPECIMENOrdering Facility: [facility] Address: [address] [place], [place] [address] Performed By: #### 2 4344-4 ####[facility] LABCLIA [id number] [place] [id number] [place] Sodium [Moles/Vol] 134 mmol/L Low 136-144 [facility] Comment on above: Order Comment: Speci men Type: ARTERIAL BLOOD SPECIMENOrdering Facility: [facility] Address: [address] [place] [address] Performed By: #### A LLBG ####[facility] LABCLIA [id number] [place] [address] [place] Base excess Calc (Bld) [Moles/Vol] 1 mmol/L Normal 0-2 [facility] Comment on above: Order Comment: Speci men Type: ARTERIAL BLOOD SPECIMENOrdering Facility: [facility] Address: [address] [place] [address] Performed By: #### A LLBG ####[facility] LABCLIA [id number] [place] [address] [place] Body temperature 98.6 [degF] Normal [facility] Comment on above: Order Comment: Speci men Type: ARTERIAL BLOOD SPECIMENOrdering Facility: [facility] Address: [address] [place] [address] Performed By: #### A LLBG ####[facility] LABCLIA [id number] [place] [address] [place] Calcium.ionized (Bld) [Mass/Vol] 1.15 mmol/L Normal 1.08-1.30 [facility] Comment on above: Order Comment: Speci men Type: ARTERIAL BLOOD SPECIMENOrdering Facility: [facility] Address: [address] [place] [address] Performed By: #### A LLBG ####[facility] LABCLIA [id number] [place] [address] [place] Calcium.ionized adjusted to pH 7.4 (BldA) [Moles/Vol] 1.15 mmol/L Normal 1.08-1.30 [facility] Comment on above: Order Comment: Speci men Type: ARTERIAL BLOOD SPECIMENOrdering Facility: [facility] Address: [address] [place] [address] Performed By: #### A LLBG ####[facility] LABCLIA [id number] [place] [address] [place] Carboxyhemoglobin (BldA) [Mass fraction] 1.7 % Normal 0.0-2.0 [facility] Comment on above: Order Comment: Speci men Type: ARTERIAL BLOOD SPECIMENOrdering Facility: [facility] Address: [address] [place] [address] Result Comment: Carb oxyhemoglobin Reference Range for Smokers: 2.0-8.0% Performed By: #### A LLBG ####[facility] LABCLIA [id number] [place] [address] [place] CO2 (Bld) [Partial pressure] 41 mm Hg Normal 36-46 [facility] Comment on above: Order Comment: Speci men Type: ARTERIAL BLOOD SPECIMENOrdering Facility: [facility] Address: [address] [place] [address] Performed By: #### A LLBG ####[facility] LABCLIA [id number] [place] [address] [place] Glucose [Mass/Vol] 115 mg/dL High 60-105 [facility] Comment on above: Order Comment: Speci men Type: ARTERIAL BLOOD SPECIMENOrdering Facility: [facility] Address: [address] [place] [address] Performed By: #### A LLBG ####[facility] LABCLIA [id number] [place] [address] [place] HCO3 (Bld) [Moles/Vol] 26 mmol/L Normal 22-26 [facility] Comment on above: Order Comment: Speci men Type: ARTERIAL BLOOD SPECIMENOrdering Facility: [facility] Address: [address] [place] [address] Performed By: #### A LLBG ####[facility] LABCLIA [id number] [place] [id number] [place] Hematocrit (Bld) [Volume fraction] 30.2 % Low 36.0-46.0 [facility] Comment on above: Order Comment: Speci men Type: ARTERIAL BLOOD SPECIMENOrdering Facility: [facility] Address: [address] [place] [address] Performed By: #### A LLBG ####[facility] LABCLIA [id number] [place] [id number] [place] Hemoglobin (Bld) [Mass/Vol] 9.8 g/dL Low 11.5-15.5 [facility] Comment on above: Order Comment: Speci men Type: ARTERIAL BLOOD SPECIMENOrdering Facility: [facility] Address: [address] [place] [address] Performed By: #### A LLBG ####[facility] LABIA [id number] [place] [address] [place] Lactate [Moles/Vol] 1.1 mmol/L Normal 0.5-2.2 [facility] Comment on above: Order Comment: Speci men Type: ARTERIAL BLOOD SPECIMENOrdering Facility: [facility] Address: [address] [place] [address] Performed By: #### A LLBG ####[facility] LABIA [id number] [address] [place] Methemoglobin (Bld) [Mass fraction] 0.7 % Normal 0.0-1.5 [facility] Comment on above: Order Comment: Speci men Type: ARTERIAL BLOOD SPECIMENOrdering Facility: [facility] Address: [address] [place] [address] Performed By: #### A LLBG ####[facility] LABIA [id number] [place] [address] [place] O2 THERAPY NC = Nasal Cannula Normal [facility] Comment on above: Order Comment: Speci men Type: ARTERIAL BLOOD SPECIMENOrdering Facility: [facility] Address: [address] [place] [address] Performed By: #### A LLBG ####[facility] LABCLIA [id number] [address] [address] [place] Oxygen (Bld) [Partial pressure] 112 mm Hg High 85-95 [facility] Comment on above: Order Comment: Speci men Type: ARTERIAL BLOOD SPECIMENOrdering Facility: [facility] Address: [address] [place] [address] Performed By: #### A LLBG ####[facility] LABCLIA [id number] [place] [address] [place] Oxyhemoglobin (BldA) [Mass fraction] 97 % Normal 95-98 [facility] Comment on above: Order Comment: Speci men Type: ARTERIAL BLOOD SPECIMENOrdering Facility: [facility] Address: [address] [place] [address] Performed By: #### A LLBG ####[facility] LABIA [id number] [place] [address] [place] pH (Bld) 7.41 [pH] Normal 7.35-7.45 [facility] Comment on above: Order Comment: Speci men Type: ARTERIAL BLOOD SPECIMENOrdering Facility: [facility] Address: [address] [place] [address] Performed By: #### A LLBG ####[facility] LABIA [id number] [place] [id number] [place] Potassium [Moles/Vol] 4.4 mmol/L Normal 3.5-5.0 [facility] Comment on above: Order Comment: Speci men Type: ARTERIAL BLOOD SPECIMENOrdering Facility: [facility] Address: [address] [place] [address] Performed By: #### A LLBG ####[facility] LABCLIA [id number] [place] [id number] [place] Sodium [Moles/Vol] 135 mmol/L Low 136-144 [facility] Comment on above: Order Comment: Speci men Type: ARTERIAL BLOOD SPECIMENOrdering Facility: [facility] Address: [address] [place] [address] Performed By: #### A LLBG ####[facility] LABCLIA [id number] [address] [place] [address] [place] Base excess Calc (Bld) [Moles/Vol] 2 mmol/L Normal 0-2 [facility] Comment on above: Order Comment: Speci men Type: ARTERIAL BLOOD SPECIMENOrdering Facility: [facility] Address: [address] [place] [address] Performed By: #### A LLBG ####[facility] LABCLIA [id number] [place] [address] [place] Body temperature 98.6 [degF] Normal [facility] Comment on above: Order Comment: Speci men Type: ARTERIAL BLOOD SPECIMENOrdering Facility: [facility] Address: [address] [place] [address] Performed By: #### A LLBG ####[facility] LABCLIA [id number] [address] [place] Order Comment: Speci men Type: VENOUS BLOOD SPECIMENOrdering Facility: [facility] Address: [address] [place] [address] Performed By: #### 2 4344-4 ####[facility] LABCLIA [id number] [place] [id number] [place] Calcium.ionized (Bld) [Mass/Vol] 1.16 mmol/L Normal 1.08-1.30 [facility] Comment on above: Order Comment: Speci men Type: ARTERIAL BLOOD SPECIMENOrdering Facility: [facility] Address: [address] [place] [address] Performed By: #### A LLBG ####[facility] LABCLIA [id number] [address], [facility] [place] Order Comment: Speci men Type: VENOUS BLOOD SPECIMENOrdering Facility: [facility] Address: [address] [place] [address] Performed By: #### 2 4344-4 ####[facility] LABIA [id number] [place] [address] [place] Calcium.ionized adjusted to pH 7.4 (BldA) [Moles/Vol] 1.16 mmol/L Normal 1.08-1.30 [facility] Comment on above: Order Comment: Speci men Type: ARTERIAL BLOOD SPECIMENOrdering Facility: [facility] Address: [address] [place] [address] Performed By: #### A LLBG ####[facility] LABIA [id number] [place] [address] [place] Carboxyhemoglobin (BldA) [Mass fraction] 1.4 % Normal 0.0-2.0 [facility] Comment on above: Order Comment: Speci men Type: ARTERIAL BLOOD SPECIMENOrdering Facility: [facility] Address: [address] [place] [address] Result Comment: Carb oxyhemoglobin Reference Range for Smokers: 2.0-8.0% Performed By: #### A LLBG ####[facility] LABIA [id number] [place] [address] [place] CO2 (Bld) [Partial pressure] 45 mm Hg Normal 36-46 [facility] Comment on above: Order Comment: Speci men Type: ARTERIAL BLOOD SPECIMENOrdering Facility: [facility] Address: [address] [place] [address] Performed By: #### A LLBG ####[facility] LABIA [id number] [place] [address] [place] Glucose [Mass/Vol] 128 mg/dL High 60-105 [facility] Comment on above: Order Comment: Speci men Type: ARTERIAL BLOOD SPECIMENOrdering Facility: [facility] Address: [address] [place] [address] Performed By: #### A LLBG ####[facility] LABCLIA [id number] [place] [address] [place] HCO3 (Bld) [Moles/Vol] 26 mmol/L Normal 22-26 [facility] Comment on above: Order Comment: Speci men Type: ARTERIAL BLOOD SPECIMENOrdering Facility: [facility] Address: [address] [place] [address] Performed By: #### A LLBG ####[facility] LABCLIA [id number] [place] [address] [place] Hematocrit (Bld) [Volume fraction] 29.9 % Low 36.0-46.0 [facility] Comment on above: Order Comment: Speci men Type: ARTERIAL BLOOD SPECIMENOrdering Facility: [facility] Address: [address] [place] [address] Performed By: #### A LLBG ####[facility] LABCLIA [id number] [place] [address] [place] Hemoglobin (Bld) [Mass/Vol] 9.7 g/dL Low 11.5-15.5 [facility] Comment on above: Order Comment: Speci men Type: ARTERIAL BLOOD SPECIMENOrdering Facility: [facility] Address: [address] [place] [address] Performed By: #### A LLBG ####[facility] LABCLIA [id number] [place] [address] [place] Lactate [Moles/Vol] 0.8 mmol/L Normal 0.5-2.2 [facility] Comment on above: Order Comment: Speci men Type: ARTERIAL BLOOD SPECIMENOrdering Facility: [facility] Address: [address] [place] [address] Performed By: #### A LLBG ####[facility] LABCLIA [id number] [place] [address] [place] Order Comment: Speci men Type: VENOUS BLOOD SPECIMENOrdering Facility: [facility] Address: [address] [place] [address] Performed By: #### 2 4344-4 ####[facility] LABCLIA [id number] [address] [place] [address] [place] Methemoglobin (Bld) [Mass fraction] 1.2 % Normal 0.0-1.5 [facility] Comment on above: Order Comment: Speci men Type: ARTERIAL BLOOD SPECIMENOrdering Facility: [facility] Address: [address] [place], [place] [address] Performed By: #### A LLBG ####[facility] LABCLIA [id number] [address] [place] [address] [place] O2 THERAPY Positive Normal [facility] Comment on above: Order Comment: Speci men Type: ARTERIAL BLOOD SPECIMENOrdering Facility: [facility] Address: [address] [place], [place] [address] Performed By: #### A LLBG ####[facility] LABCLIA [id number] [address] [place] [address] [place] Order Comment: Speci men Type: VENOUS BLOOD SPECIMENOrdering Facility: [facility] Address: [address] [place], [place] [address] Performed By: #### 2 4344-4 ####[facility] LABCLIA [id number] [address] [place] [address] [place] Oxygen (Bld) [Partial pressure] 94 mm Hg Normal 85-95 [facility] Comment on above: Order Comment: Speci men Type: ARTERIAL BLOOD SPECIMENOrdering Facility: [facility] Address: [address] [place] [id number] Performed By: #### A LLBG ####[facility] LABCLIA [id number] [address] [place] [address] [place] Oxyhemoglobin (BldA) [Mass fraction] 95 % Normal 95-98 [facility] Comment on above: Order Comment: Speci men Type: ARTERIAL BLOOD SPECIMENOrdering Facility: [facility] Address: [address] [place] [address] Performed By: #### A LLBG ####[facility] LABCLIA [id number] [place] [id number] [place] pH (Bld) 7.39 [pH] Normal 7.35-7.45 [facility] Comment on above: Order Comment: Speci men Type: ARTERIAL BLOOD SPECIMENOrdering Facility: [facility] Address: [address] [place] [address] Performed By: #### A LLBG ####[facility] LABCLIA [id number] [place] [address] [place] Potassium [Moles/Vol] 4.3 mmol/L Normal 3.5-5.0 [facility] Comment on above: Order Comment: Speci men Type: ARTERIAL BLOOD SPECIMENOrdering Facility: [facility] Address: [address] [place] [address] Performed By: #### A LLBG ####[facility] LABCLIA [id number] [place] [address] [place] Sodium [Moles/Vol] 136 mmol/L Normal 136-144 [facility] Comment on above: Order Comment: Speci men Type: ARTERIAL BLOOD SPECIMENOrdering Facility: [facility] Address: [address] [place] [address] Performed By: #### A LLBG ####[facility] LABCLIA [id number] [place] [id number] [place] Base excess Calc (Bld) [Moles/Vol] 1 mmol/L Normal 0-2 [facility] Comment on above: Order Comment: Speci men Type: ARTERIAL BLOOD SPECIMENOrdering Facility: [facility] Address: [address] [place], [place] [id number] Performed By: #### A LLBG ####[facility] LABCLIA [id number] [place] [id number] [place] Body temperature 98.6 [degF] Normal [facility] Comment on above: Order Comment: Speci men Type: ARTERIAL BLOOD SPECIMENOrdering Facility: [facility] Address: [address] [place] [address] Performed By: #### A LLBG ####[facility] LABCLIA [id number] [place] [address] [place] Order Comment: Speci men Type: VENOUS BLOOD SPECIMENOrdering Facility: [facility] Address: [address] [place] [address] Performed By: #### 2 4344-4 ####[facility] LABIA [id number] [place] [address] [place] Calcium.ionized (Bld) [Mass/Vol] 1.21 mmol/L Normal 1.08-1.30 [facility] Comment on above: Order Comment: Speci men Type: ARTERIAL BLOOD SPECIMENOrdering Facility: [facility] Address: [address] [place] [address] Performed By: #### A LLBG ####[facility] LABIA [id number] [place] [address] [place] Calcium.ionized adjusted to pH 7.4 (BldA) [Moles/Vol] 1.19 mmol/L Normal 1.08-1.30 [facility] Comment on above: Order Comment: Speci men Type: ARTERIAL BLOOD SPECIMENOrdering Facility: [facility] Address: [address] [place] [address] Performed By: #### A LLBG ####[facility] LABIA [id number] [place] [address] [place] Carboxyhemoglobin (BldA) [Mass fraction] 1.4 % Normal 0.0-2.0 [facility] Comment on above: Order Comment: Speci men Type: ARTERIAL BLOOD SPECIMENOrdering Facility: [facility] Address: [address] [place] [address] Result Comment: Carb oxyhemoglobin Reference Range for Smokers: 2.0-8.0% Performed By: #### A LLBG ####[facility] LABCLIA [id number] [place] [address] [place] CO2 (Bld) [Partial pressure] 48 mm Hg High 36-46 [facility] Comment on above: Order Comment: Speci men Type: ARTERIAL BLOOD SPECIMENOrdering Facility: [facility] Address: [address] [place] [address] Performed By: #### A LLBG ####[facility] LABCLIA [id number] [place] [address] [place] Glucose [Mass/Vol] 138 mg/dL High 60-105 [facility] Comment on above: Order Comment: Speci men Type: ARTERIAL BLOOD SPECIMENOrdering Facility: [facility] Address: [address] [place] [address] Performed By: #### A LLBG ####[facility] LABCLIA [id number] [place] [address] [place] HCO3 (Bld) [Moles/Vol] 26 mmol/L Normal 22-26 [facility] Comment on above: Order Comment: Speci men Type: ARTERIAL BLOOD SPECIMENOrdering Facility: [facility] Address: [address] [place] [address] Performed By: #### A LLBG ####[facility] LABCLIA [id number] [place] [id number] [place] Hematocrit (Bld) [Volume fraction] 31.2 % Low 36.0-46.0 [facility] Comment on above: Order Comment: Speci men Type: ARTERIAL BLOOD SPECIMENOrdering Facility: [facility] Address: [address] [place] [address] Performed By: #### A LLBG ####[facility] LABCLIA [id number] [address] [address] [place] Hemoglobin (Bld) [Mass/Vol] 10.1 g/dL Low 11.5-15.5 [facility] Comment on above: Order Comment: Speci men Type: ARTERIAL BLOOD SPECIMENOrdering Facility: [facility] Address: [address] [place] [address] Performed By: #### A LLBG ####[facility] LABIA [id number] [place] [address] [place] Lactate [Moles/Vol] 1.0 mmol/L Normal 0.5-2.2 [facility] Comment on above: Order Comment: Speci men Type: ARTERIAL BLOOD SPECIMENOrdering Facility: [facility] Address: [address] [place] [address] Performed By: #### A LLBG ####[facility] LABIA [id number] [place] [address] [place] LITERS 3 Liters/min Normal [facility] Comment on above: Order Comment: Speci men Type: ARTERIAL BLOOD SPECIMENOrdering Facility: [facility] Address: [address] [place] [address] Performed By: #### A LLBG ####[facility] LABIA [id number] [place] [address] [place] Order Comment: Speci men Type: VENOUS BLOOD SPECIMENOrdering Facility: [facility] Address: [address] [place] [address] Performed By: #### 2 4344-4 ####[facility] LABIA [id number] [place] [address] [place] Methemoglobin (Bld) [Mass fraction] 0.9 % Normal 0.0-1.5 [facility] Comment on above: Order Comment: Speci men Type: ARTERIAL BLOOD SPECIMENOrdering Facility: [facility] Address: [address] [place] [address] Performed By: #### A LLBG ####[facility] LABCLIA [id number] [place] [id number] [place] O2 THERAPY NC = Nasal Cannula Normal [facility] Comment on above: Order Comment: Speci men Type: ARTERIAL BLOOD SPECIMENOrdering Facility: [facility] Address: [address] [place] [address] Performed By: #### A LLBG ####[facility] LABCLIA [id number] [place] [id number] [place] Order Comment: Speci men Type: VENOUS BLOOD SPECIMENOrdering Facility: [facility] Address: [address] [place] [address] Performed By: #### 2 4344-4 ####[facility] LABCLIA [id number] [place] [address] [place] Oxygen (Bld) [Partial pressure] 73 mm Hg Low 85-95 [facility] Comment on above: Order Comment: Speci men Type: ARTERIAL BLOOD SPECIMENOrdering Facility: [facility] Address: [address] [place] [address] Performed By: #### A LLBG ####[facility] LABCLIA [id number] [place] [id number] [place] Oxyhemoglobin (BldA) [Mass fraction] 92 % Low 95-98 [facility] Comment on above: Order Comment: Speci men Type: ARTERIAL BLOOD SPECIMENOrdering Facility: [facility] Address: [address] [place] [id number] Performed By: #### A LLBG ####[facility] LABCLIA [id number] [place] [id number] [place] pH (Bld) 7.36 [pH] Normal 7.35-7.45 [facility] Comment on above: Order Comment: Speci men Type: ARTERIAL BLOOD SPECIMENOrdering Facility: [facility] Address: [address] [place] [address] Performed By: #### A LLBG ####[facility] LABCLIA [id number] [place] [address] [place] Potassium [Moles/Vol] 4.4 mmol/L Normal 3.5-5.0 [facility] Comment on above: Order Comment: Speci men Type: ARTERIAL BLOOD SPECIMENOrdering Facility: [facility] Address: [address] [place] [address] Performed By: #### A LLBG ####[facility] LABCLIA [id number] [place] [address] [place] Sodium [Moles/Vol] 139 mmol/L Normal 136-144 [facility] Comment on above: Order Comment: Speci men Type: ARTERIAL BLOOD SPECIMENOrdering Facility: [facility] Address: [address] [place] [address] Performed By: #### A LLBG ####[facility] LABCLIA [id number] [place] [address] [place] Base excess Calc (Bld) [Moles/Vol] 2 mmol/L Normal 0-2 [facility] Comment on above: Order Comment: Speci men Type: ARTERIAL BLOOD SPECIMENOrdering Facility: [facility] Address: [address] [place] [address] Performed By: #### A LLBG ####[facility] LABCLIA [id number] [place] [address] [place] Calcium.ionized adjusted to pH 7.4 (BldA) [Moles/Vol] 1.15 mmol/L Normal 1.08-1.30 [facility] Comment on above: Order Comment: Speci men Type: ARTERIAL BLOOD SPECIMENOrdering Facility: [facility] Address: [address] [place] [address] Performed By: #### A LLBG ####[facility] LABCLIA [id number] [place] [address] [place] Carboxyhemoglobin (BldA) [Mass fraction] 1.1 % Normal 0.0-2.0 [facility] Comment on above: Order Comment: Speci men Type: ARTERIAL BLOOD SPECIMENOrdering Facility: [facility] Address: [address] [place] [address] Result Comment: Carb oxyhemoglobin Reference Range for Smokers: 2.0-8.0% Performed By: #### A LLBG ####[facility] LABCLIA [id number] [place] [address] [place] CO2 (Bld) [Partial pressure] 43 mm Hg Normal 36-46 [facility] Comment on above: Order Comment: Speci men Type: ARTERIAL BLOOD SPECIMENOrdering Facility: [facility] Address: [address] [place] [address] Performed By: #### A LLBG ####[facility] LABCLIA [id number] [place] [address] [place] Glucose [Mass/Vol] 135 mg/dL High 60-105 [facility] Comment on above: Order Comment: Speci men Type: ARTERIAL BLOOD SPECIMENOrdering Facility: [facility] Address: [address] [place] [address] Performed By: #### A LLBG ####[facility] LABCLIA [id number] [place] [address] [place] HCO3 (Bld) [Moles/Vol] 27 mmol/L High 22-26 [facility] Comment on above: Order Comment: Speci men Type: ARTERIAL BLOOD SPECIMENOrdering Facility: [facility] Address: [address] [place] [address] Performed By: #### A LLBG ####[facility] LABCLIA [id number] [place] [address] [place] Hematocrit (Bld) [Volume fraction] 31.6 % Low 36.0-46.0 [facility] Comment on above: Order Comment: Speci men Type: ARTERIAL BLOOD SPECIMENOrdering Facility: [facility] Address: [address] [place] [address] Performed By: #### A LLBG ####[facility] LABIA [id number] [place] [id number] [place] Hemoglobin (Bld) [Mass/Vol] 10.2 g/dL Low 11.5-15.5 [facility] Comment on above: Order Comment: Speci men Type: ARTERIAL BLOOD SPECIMENOrdering Facility: [facility] Address: [address] [place] [address] Performed By: #### A LLBG ####[facility] LABIA [id number] [place] [address] [place] Lactate [Moles/Vol] 0.7 mmol/L Normal 0.5-2.2 [facility] Comment on above: Order Comment: Speci men Type: ARTERIAL BLOOD SPECIMENOrdering Facility: [facility] Address: [address] [place] [address] Performed By: #### A LLBG ####[facility] LABIA [id number] [place] [address] [place] Methemoglobin (Bld) [Mass fraction] 1.4 % Normal 0.0-1.5 [facility] Comment on above: Order Comment: Speci men Type: ARTERIAL BLOOD SPECIMENOrdering Facility: [facility] Address: [address] [place] [address] Performed By: #### A LLBG ####[facility] LABIA [id number] [place] [id number] [place] Oxygen (Bld) [Partial pressure] 82 mm Hg Low 85-95 [facility] Comment on above: Order Comment: Speci men Type: ARTERIAL BLOOD SPECIMENOrdering Facility: [facility] Address: [address] [place] [address] Performed By: #### A LLBG ####[facility] LABCLIA [id number] [place] [id number] [place] Oxyhemoglobin (BldA) [Mass fraction] 93 % Low 95-98 [facility] Comment on above: Order Comment: Speci men Type: ARTERIAL BLOOD SPECIMENOrdering Facility: [facility] Address: [address] [place] [address] Performed By: #### A LLBG ####[facility] LABCLIA [id number] [place] [address] [place] pH (Bld) 7.41 [pH] Normal 7.35-7.45 [facility] Comment on above: Order Comment: Speci men Type: ARTERIAL BLOOD SPECIMENOrdering Facility: [facility] Address: [address] [place] [address] Performed By: #### A LLBG ####[facility] LABCLIA [id number] [place] [address] [place] Sodium [Moles/Vol] 135 mmol/L Low 136-144 [facility] Comment on above: Order Comment: Speci men Type: ARTERIAL BLOOD SPECIMENOrdering Facility: [facility] Address: [address] [place] [address] Performed By: #### A LLBG ####[facility] LABCLIA [id number] [place] [address] [place] Base excess Calc (Bld) [Moles/Vol] 3 mmol/L High 0-2 [facility] Comment on above: Order Comment: Speci men Type: ARTERIAL BLOOD SPECIMENOrdering Facility: [facility] Address: [address] [place] [address] Performed By: #### A LLBG ####[facility] LABCLIA [id number] [place] [id number] [place] Calcium.ionized (Bld) [Mass/Vol] 1.14 mmol/L Normal 1.08-1.30 [facility] Comment on above: Order Comment: Speci men Type: ARTERIAL BLOOD SPECIMENOrdering Facility: [facility] Address: [address] [place] [address] Performed By: #### A LLBG ####[facility] LABCLIA [id number] [place] [address] [place] Calcium.ionized adjusted to pH 7.4 (BldA) [Moles/Vol] 1.14 mmol/L Normal 1.08-1.30 [facility] Comment on above: Order Comment: Speci men Type: ARTERIAL BLOOD SPECIMENOrdering Facility: [facility] Address: [address] [place] [address] Performed By: #### A LLBG ####[facility] LABIA [id number] [place] [address] [place] Carboxyhemoglobin (BldA) [Mass fraction] 1.5 % Normal 0.0-2.0 [facility] Comment on above: Order Comment: Speci men Type: ARTERIAL BLOOD SPECIMENOrdering Facility: [facility] Address: [address] [place] [address] Result Comment: Carb oxyhemoglobin Reference Range for Smokers: 2.0-8.0% Performed By: #### A LLBG ####[facility] LABIA [id number] [place] [address] [place] CO2 (Bld) [Partial pressure] 45 mm Hg Normal 36-46 [facility] Comment on above: Order Comment: Speci men Type: ARTERIAL BLOOD SPECIMENOrdering Facility: [facility] Address: [address] [place] [address] Performed By: #### A LLBG ####[facility] LABIA [id number] [place] [id number] [place] Glucose [Mass/Vol] 154 mg/dL High 60-105 [facility] Comment on above: Order Comment: Speci men Type: ARTERIAL BLOOD SPECIMENOrdering Facility: [facility] Address: [address] [place] [address] Performed By: #### A LLBG ####[facility] LABCLIA [id number] [place] [address] [place] Hematocrit (Bld) [Volume fraction] 30.6 % Low 36.0-46.0 [facility] Comment on above: Order Comment: Speci men Type: ARTERIAL BLOOD SPECIMENOrdering Facility: [facility] Address: [address] [place] [address] Performed By: #### A LLBG ####[facility] LABIA [id number] [place] [address] [place] Hemoglobin (Bld) [Mass/Vol] 9.9 g/dL Low 11.5-15.5 [facility] Comment on above: Order Comment: Speci men Type: ARTERIAL BLOOD SPECIMENOrdering Facility: [facility] Address: [address] [place] [address] Performed By: #### A LLBG ####[facility] LABIA [id number] [place] [address] [place] Lactate [Moles/Vol] 0.8 mmol/L Normal 0.5-2.2 [facility] Comment on above: Order Comment: Speci men Type: ARTERIAL BLOOD SPECIMENOrdering Facility: [facility] Address: [address] [place] [address] Performed By: #### A LLBG ####[facility] LABCLIA [id number] [place] [address] [place] Methemoglobin (Bld) [Mass fraction] 1.1 % Normal 0.0-1.5 [facility] Comment on above: Order Comment: Speci men Type: ARTERIAL BLOOD SPECIMENOrdering Facility: [facility] Address: [address] [place] [address] Performed By: #### A LLBG ####[facility] LABCLIA [id number] [place] [address] [place] Oxygen (Bld) [Partial pressure] 114 mm Hg High 85-95 [facility] Comment on above: Order Comment: Speci men Type: ARTERIAL BLOOD SPECIMENOrdering Facility: [facility] Address: [address] [place] [address] Performed By: #### A LLBG ####[facility] LABCLIA [id number] [place] [id number] [place] Oxyhemoglobin (BldA) [Mass fraction] 96 % Normal 95-98 [facility] Comment on above: Order Comment: Speci men Type: ARTERIAL BLOOD SPECIMENOrdering Facility: [facility] Address: [address] [place] [address] Performed By: #### A LLBG ####[facility] LABCLIA [id number] [place] [address] [place] pH (Bld) 7.40 [pH] Normal 7.35-7.45 [facility] Comment on above: Order Comment: Speci men Type: ARTERIAL BLOOD SPECIMENOrdering Facility: [facility] Address: [address] [place] [address] Performed By: #### A LLBG ####[facility] LABCLIA [id number] [place] [id number] [place] Potassium [Moles/Vol] 4.2 mmol/L Normal 3.5-5.0 [facility] Comment on above: Order Comment: Speci men Type: ARTERIAL BLOOD SPECIMENOrdering Facility: [facility] Address: [address] [place] [address] Performed By: #### A LLBG ####[facility] LABCLIA [id number] [place] [id number] [place] Sodium [Moles/Vol] 134 mmol/L Low 136-144 [facility] Comment on above: Order Comment: Speci men Type: ARTERIAL BLOOD SPECIMENOrdering Facility: [facility] Address: [address] [place] [address] Performed By: #### A LLBG ####[facility] LABCLIA [id number] [place] [address] [place] Base excess Calc (Bld) [Moles/Vol] 1 mmol/L Normal 0-2 [facility] Comment on above: Order Comment: Speci men Type: ARTERIAL BLOOD SPECIMENOrdering Facility: [facility] Address: [address] [place] [address] Performed By: #### A LLBG ####[facility] LABIA [id number] [place] [address] [place] Body temperature 98.6 [degF] Normal [facility] Comment on above: Order Comment: Speci men Type: ARTERIAL BLOOD SPECIMENOrdering Facility: [facility] Address: [address] [place] [address] Performed By: #### A LLBG ####[facility] LABIA [id number] [place] [address] [place] Order Comment: Speci men Type: VENOUS BLOOD SPECIMENOrdering Facility: [facility] Address: [address] [place] [address] Performed By: #### 2 4344-4 ####[facility] LABIA [id number] [place] [address] [place] Calcium.ionized (Bld) [Mass/Vol] 1.15 mmol/L Normal 1.08-1.30 [facility] Comment on above: Order Comment: Speci men Type: ARTERIAL BLOOD SPECIMENOrdering Facility: [facility] Address: [address] [place] [address] Performed By: #### A LLBG ####[facility] LABCLIA [id number] [place] [address] [place] Calcium.ionized adjusted to pH 7.4 (BldA) [Moles/Vol] 1.13 mmol/L Normal 1.08-1.30 [facility] Comment on above: Order Comment: Speci men Type: ARTERIAL BLOOD SPECIMENOrdering Facility: [facility] Address: [address] [place] [address] Performed By: #### A LLBG ####[facility] LABCLIA [id number] [place] [address] [place] Carboxyhemoglobin (BldA) [Mass fraction] 1.3 % Normal 0.0-2.0 [facility] Comment on above: Order Comment: Speci men Type: ARTERIAL BLOOD SPECIMENOrdering Facility: [facility] Address: [address] [place] [address] Result Comment: Carb oxyhemoglobin Reference Range for Smokers: 2.0-8.0% Performed By: #### A LLBG ####[facility] LABCLIA [id number] [place] [address] [place] CO2 (Bld) [Partial pressure] 47 mm Hg High 36-46 [facility] Comment on above: Order Comment: Speci men Type: ARTERIAL BLOOD SPECIMENOrdering Facility: [facility] Address: [address] [place] [address] Performed By: #### A LLBG ####[facility] LABCLIA [id number] [place] [address] [place] Glucose [Mass/Vol] 156 mg/dL High 60-105 [facility] Comment on above: Order Comment: Speci men Type: ARTERIAL BLOOD SPECIMENOrdering Facility: [facility] Address: [address] [place] [address] Performed By: #### A LLBG ####[facility] LABCLIA [id number] [place] [id number] [place] HCO3 (Bld) [Moles/Vol] 26 mmol/L Normal 22-26 [facility] Comment on above: Order Comment: Speci men Type: ARTERIAL BLOOD SPECIMENOrdering Facility: [facility] Address: [address] [place] [address] Performed By: #### A LLBG ####[facility] LABCLIA [id number] [address], [place] [address] [place] Hematocrit (Bld) [Volume fraction] 31.2 % Low 36.0-46.0 [facility] Comment on above: Order Comment: Speci men Type: ARTERIAL BLOOD SPECIMENOrdering Facility: [facility] Address: [address] [place] [address] Performed By: #### A LLBG ####[facility] LABCLIA [id number] [address], [place] [address] [place] Hemoglobin (Bld) [Mass/Vol] 10.1 g/dL Low 11.5-15.5 [facility] Comment on above: Order Comment: Speci men Type: ARTERIAL BLOOD SPECIMENOrdering Facility: [facility] Address: [address] [place] [address] Performed By: #### A LLBG ####[facility] LABCLIA [id number] [place] [id number] [place] Lactate [Moles/Vol] 0.8 mmol/L Normal 0.5-2.2 [facility] Comment on above: Order Comment: Speci men Type: ARTERIAL BLOOD SPECIMENOrdering Facility: [facility] Address: [address] [place] [address] Performed By: #### A LLBG ####[facility] LABCLIA [id number] [address], [facility]95 [place] Order Comment: Speci men Type: VENOUS BLOOD SPECIMENOrdering Facility: [facility] Address: [address] [place] [address] Performed By: #### 2 4344-4 ####[facility] LABCLIA [id number] [address] [place] [address] [place] Methemoglobin (Bld) [Mass fraction] 1.2 % Normal 0.0-1.5 [facility] Comment on above: Order Comment: Speci men Type: ARTERIAL BLOOD SPECIMENOrdering Facility: [facility] Address: [address] [place] [address] Performed By: #### A LLBG ####[facility] LABCLIA [id number] [address] [place] [address] [place] O2 THERAPY Positive Normal [facility] Comment on above: Order Comment: Speci men Type: ARTERIAL BLOOD SPECIMENOrdering Facility: [facility] Address: [address] [place] [address] Performed By: #### A LLBG ####[facility] LABCLIA [id number] [place] [id number] [place] Order Comment: Speci men Type: VENOUS BLOOD SPECIMENOrdering Facility: [facility] Address: [address] [place] [address] Performed By: #### 2 4344-4 ####[facility] LABCLIA [id number] [address], [facility]95 [place] Oxygen (Bld) [Partial pressure] 95 mm Hg Normal 85-95 [facility] Comment on above: Order Comment: Speci men Type: ARTERIAL BLOOD SPECIMENOrdering Facility: [facility] Address: [address] [place] [address] Performed By: #### A LLBG ####[facility] LABCLIA [id number] [address] [place] [address] [place] Oxyhemoglobin (BldA) [Mass fraction] 95 % Normal 95-98 [facility] Comment on above: Order Comment: Speci men Type: ARTERIAL BLOOD SPECIMENOrdering Facility: [facility] Address: [address] [place], [place] [address] Performed By: #### A LLBG ####[facility] LABCLIA [id number] [address] [place] [address] [place] pH (Bld) 7.37 [pH] Normal 7.35-7.45 [facility] Comment on above: Order Comment: Speci men Type: ARTERIAL BLOOD SPECIMENOrdering Facility: [facility] Address: [address] [place] [address] Performed By: #### A LLBG ####[facility] LABCLIA [id number] [place] [id number] [place] Potassium [Moles/Vol] 4.4 mmol/L Normal 3.5-5.0 [facility] Comment on above: Order Comment: Speci men Type: ARTERIAL BLOOD SPECIMENOrdering Facility: [facility] Address: [address] [place] [address] Performed By: #### A LLBG ####[facility] LABCLIA [id number] [place] [address] [place] Sodium [Moles/Vol] 136 mmol/L Normal 136-144 [facility] Comment on above: Order Comment: Speci men Type: ARTERIAL BLOOD SPECIMENOrdering Facility: [facility] Address: [address] [place] [address] Performed By: #### A LLBG ####[facility] LABCLIA [id number] [place] [address] [place] Order Comment: Speci men Type: VENOUS BLOOD SPECIMENOrdering Facility: [facility] Address: [address] [place] [address] Performed By: #### 2 4344-4 ####[facility] LABCLIA [id number] [place] [id number] [place] Base excess Calc (Bld) [Moles/Vol] 1 mmol/L Normal 0-2 [facility] Comment on above: Order Comment: Speci men Type: ARTERIAL BLOOD SPECIMENOrdering Facility: [facility] Address: [address] [place] [address] Performed By: #### A LLBG ####[facility] LABCLIA [id number] [address] [address] [place] Body temperature 98.6 [degF] Normal [facility] Comment on above: Order Comment: Speci men Type: ARTERIAL BLOOD SPECIMENOrdering Facility: [facility] Address: [address] [place] [address] Performed By: #### A LLBG ####[facility] LABCLIA [id number] [place] [id number] [place] Order Comment: Speci men Type: VENOUS BLOOD SPECIMENOrdering Facility: [facility] Address: [address] [place] [address] Performed By: #### 2 4344-4 ####[facility] LABCLIA [id number] [place] [address] [place] Calcium.ionized (Bld) [Mass/Vol] 1.17 mmol/L Normal 1.08-1.30 [facility] Comment on above: Order Comment: Speci men Type: ARTERIAL BLOOD SPECIMENOrdering Facility: [facility] Address: [address] [place] [address] Performed By: #### A LLBG ####[facility] LABIA [id number] [place] [address] [place] Calcium.ionized adjusted to pH 7.4 (BldA) [Moles/Vol] 1.15 mmol/L Normal 1.08-1.30 [facility] Comment on above: Order Comment: Speci men Type: ARTERIAL BLOOD SPECIMENOrdering Facility: [facility] Address: [address] [place], [place] [address] Performed By: #### A LLBG ####[facility] LABCLIA [id number] [place] [id number] [place] Carboxyhemoglobin (BldA) [Mass fraction] 1.2 % Normal 0.0-2.0 [facility] Comment on above: Order Comment: Speci men Type: ARTERIAL BLOOD SPECIMENOrdering Facility: [facility] Address: [address] [place] [address] Result Comment: Carb oxyhemoglobin Reference Range for Smokers: 2.0-8.0% Performed By: #### A LLBG ####[facility] LABCLIA [id number] [place] [id number] [place] CO2 (Bld) [Partial pressure] 45 mm Hg Normal 36-46 [facility] Comment on above: Order Comment: Speci men Type: ARTERIAL BLOOD SPECIMENOrdering Facility: [facility] Address: [address] [place] [address] Performed By: #### A LLBG ####[facility] LABCLIA [id number] [place] [address] [place] Glucose [Mass/Vol] 160 mg/dL High 60-105 [facility] Comment on above: Order Comment: Speci men Type: ARTERIAL BLOOD SPECIMENOrdering Facility: [facility] Address: [address] [place] [address] Performed By: #### A LLBG ####[facility] LABCLIA [id number] [place] [address] [place] HCO3 (Bld) [Moles/Vol] 26 mmol/L Normal 22-26 [facility] Comment on above: Order Comment: Speci men Type: ARTERIAL BLOOD SPECIMENOrdering Facility: [facility] Address: [address] [place] [address] Performed By: #### A LLBG ####[facility] LABCLIA [id number] [place] [id number] [place] Hematocrit (Bld) [Volume fraction] 32.3 % Low 36.0-46.0 [facility] Comment on above: Order Comment: Speci men Type: ARTERIAL BLOOD SPECIMENOrdering Facility: [facility] Address: [address] [place] [address] Performed By: #### A LLBG ####[facility] LABCLIA [id number] [address] [address] [place] Hemoglobin (Bld) [Mass/Vol] 10.5 g/dL Low 11.5-15.5 [facility] Comment on above: Order Comment: Speci men Type: ARTERIAL BLOOD SPECIMENOrdering Facility: [facility] Address: [address] [place] [address] Performed By: #### A LLBG ####[facility] LABCLIA [id number] [address], [facility]95 [place] Lactate [Moles/Vol] 1.0 mmol/L Normal 0.5-2.2 [facility] Comment on above: Order Comment: Speci men Type: ARTERIAL BLOOD SPECIMENOrdering Facility: [facility] Address: [address] [place] [address] Performed By: #### A LLBG ####[facility] LABCLIA [id number] [address] [place] Methemoglobin (Bld) [Mass fraction] 1.0 % Normal 0.0-1.5 [facility] Comment on above: Order Comment: Speci men Type: ARTERIAL BLOOD SPECIMENOrdering Facility: [facility] Address: [address] [place] [address] Performed By: #### A LLBG ####[facility] LABCLIA [id number] [address], [facility]95 [place] O2 THERAPY Positive Normal [facility] Comment on above: Order Comment: Speci men Type: ARTERIAL BLOOD SPECIMENOrdering Facility: [facility] Address: [address] [place] [address] Performed By: #### A LLBG ####[facility] LABCLIA [id number] [place] [id number] [place] Order Comment: Speci men Type: VENOUS BLOOD SPECIMENOrdering Facility: [facility] Address: [address] [place] [address] Performed By: #### 2 4344-4 ####[facility] LABCLIA [id number] [address] [address] [place] Oxygen (Bld) [Partial pressure] 121 mm Hg High 85-95 [facility] Comment on above: Order Comment: Speci men Type: ARTERIAL BLOOD SPECIMENOrdering Facility: [facility] Address: [address] [place] [address] Performed By: #### A LLBG ####[facility] LABCLIA [id number] [place] [id number] [place] Oxyhemoglobin (BldA) [Mass fraction] 96 % Normal 95-98 [facility] Comment on above: Order Comment: Speci men Type: ARTERIAL BLOOD SPECIMENOrdering Facility: [facility] Address: [address] [place] [address] Performed By: #### A LLBG ####[facility] LABIA [id number] [place] [id number] [place] pH (Bld) 7.37 [pH] Normal 7.35-7.45 [facility] Comment on above: Order Comment: Speci men Type: ARTERIAL BLOOD SPECIMENOrdering Facility: [facility] Address: [address] [place] [address] Performed By: #### A LLBG ####[facility] LABCLIA [id number] [place] [id number] [place] Potassium [Moles/Vol] 4.8 mmol/L Normal 3.5-5.0 [facility] Comment on above: Order Comment: Speci men Type: ARTERIAL BLOOD SPECIMENOrdering Facility: [facility] Address: [address] [place] [address] Performed By: #### A LLBG ####[facility] LABCLIA [id number] [place] [id number] [place] Order Comment: Speci men Type: VENOUS BLOOD SPECIMENOrdering Facility: [facility] Address: [address] [place], [place] [address] Performed By: #### 2 4344-4 ####[facility] LABCLIA [id number] [place] [address] [place] Sodium [Moles/Vol] 136 mmol/L Normal 136-144 [facility] Comment on above: Order Comment: Speci men Type: ARTERIAL BLOOD SPECIMENOrdering Facility: [facility] Address: [address] [place] [address] Performed By: #### A LLBG ####[facility] LABCLIA [id number] [place] [address] [place] Base excess Calc (Bld) [Moles/Vol] 1 mmol/L Normal 0-2 [facility] Comment on above: Order Comment: Speci men Type: ARTERIAL BLOOD SPECIMENOrdering Facility: [facility] Address: [address] [place] [address] Performed By: #### A LLBG ####[facility] LABIA [id number] [place] [address] [place] Body temperature 98.6 [degF] Normal [facility] Comment on above: Order Comment: Speci men Type: ARTERIAL BLOOD SPECIMENOrdering Facility: [facility] Address: [address] [place] [address] Performed By: #### A LLBG ####[facility] LABIA [id number] [place] [address] [place] Calcium.ionized (Bld) [Mass/Vol] 1.16 mmol/L Normal 1.08-1.30 [facility] Comment on above: Order Comment: Speci men Type: ARTERIAL BLOOD SPECIMENOrdering Facility: [facility] Address: [address] [place] [address] Performed By: #### A LLBG ####[facility] LABIA [id number] [place] [address] [place] Calcium.ionized adjusted to pH 7.4 (BldA) [Moles/Vol] 1.11 mmol/L Normal 1.08-1.30 [facility] Comment on above: Order Comment: Speci men Type: ARTERIAL BLOOD SPECIMENOrdering Facility: [facility] Address: [address] [place] [address] Performed By: #### A LLBG ####[facility] LABCLIA [id number] [place] [address] [place] Carboxyhemoglobin (BldA) [Mass fraction] 1.6 % Normal 0.0-2.0 [facility] Comment on above: Order Comment: Speci men Type: ARTERIAL BLOOD SPECIMENOrdering Facility: [facility] Address: [address] [place] [address] Result Comment: Carb oxyhemoglobin Reference Range for Smokers: 2.0-8.0% Performed By: #### A LLBG ####[facility] LABCLIA [id number] [place] [address] [place] CO2 (Bld) [Partial pressure] 53 mm Hg High 36-46 [facility] Comment on above: Order Comment: Speci men Type: ARTERIAL BLOOD SPECIMENOrdering Facility: [facility] Address: [address] [place] [address] Performed By: #### A LLBG ####[facility] LABCLIA [id number] [place] [address] [place] Glucose [Mass/Vol] 143 mg/dL High 60-105 [facility] Comment on above: Order Comment: Speci men Type: ARTERIAL BLOOD SPECIMENOrdering Facility: [facility] Address: [address] [place] [address] Performed By: #### A LLBG ####[facility] LABCLIA [id number] [place] [address] [place] HCO3 (Bld) [Moles/Vol] 27 mmol/L High 22-26 [facility] Comment on above: Order Comment: Speci men Type: ARTERIAL BLOOD SPECIMENOrdering Facility: [facility] Address: [address] [place] [address] Performed By: #### A LLBG ####[facility] LABCLIA [id number] [place] [address] [place] Hematocrit (Bld) [Volume fraction] 32.7 % Low 36.0-46.0 [facility] Comment on above: Order Comment: Speci men Type: ARTERIAL BLOOD SPECIMENOrdering Facility: [facility] Address: [address] [place] [address] Performed By: #### A LLBG ####[facility] LABCLIA [id number] [place] [address] [place] Hemoglobin (Bld) [Mass/Vol] 10.6 g/dL Low 11.5-15.5 [facility] Comment on above: Order Comment: Speci men Type: ARTERIAL BLOOD SPECIMENOrdering Facility: [facility] Address: [address] [place] [address] Performed By: #### A LLBG ####[facility] LABCLIA [id number] [place] [address] [place] Lactate [Moles/Vol] 1.2 mmol/L Normal 0.5-2.2 [facility] Comment on above: Order Comment: Speci men Type: ARTERIAL BLOOD SPECIMENOrdering Facility: [facility] Address: [address] [place] [address] Performed By: #### A LLBG ####[facility] LABCLIA [id number] [place] [id number] [place] Methemoglobin (Bld) [Mass fraction] 0.9 % Normal 0.0-1.5 [facility] Comment on above: Order Comment: Speci men Type: ARTERIAL BLOOD SPECIMENOrdering Facility: [facility] Address: [address] [place] [address] Performed By: #### A LLBG ####[facility] LABCLIA [id number] [address] [address] [place] O2 THERAPY Positive Normal [facility] Comment on above: Order Comment: Speci men Type: ARTERIAL BLOOD SPECIMENOrdering Facility: [facility] Address: [address] [place], [place] [address] Performed By: #### A LLBG ####[facility] LABCLIA [id number] [address] [address] [place] Oxygen (Bld) [Partial pressure] 112 mm Hg High 85-95 [facility] Comment on above: Order Comment: Speci men Type: ARTERIAL BLOOD SPECIMENOrdering Facility: [facility] Address: [address] [place], [place] [address] Performed By: #### A LLBG ####[facility] LABCLIA [id number] [place] [id number] [place] Oxyhemoglobin (BldA) [Mass fraction] 96 % Normal 95-98 [facility] Comment on above: Order Comment: Speci men Type: ARTERIAL BLOOD SPECIMENOrdering Facility: [facility] Address: [address] [place], [place] [address] Performed By: #### A LLBG ####[facility] LABCLIA [id number] [address] [address] [place] pH (Bld) 7.33 [pH] Low 7.35-7.45 [facility] Comment on above: Order Comment: Speci men Type: ARTERIAL BLOOD SPECIMENOrdering Facility: [facility] Address: [address] [place] [address] Performed By: #### A LLBG ####[facility] LABCLIA [id number] [place] [id number] [place] Potassium [Moles/Vol] 4.7 mmol/L Normal 3.5-5.0 [facility] Comment on above: Order Comment: Speci men Type: ARTERIAL BLOOD SPECIMENOrdering Facility: [facility] Address: [address] [place] [address] Performed By: #### A LLBG ####[facility] LABCLIA [id number] [place] [address] [place] Sodium [Moles/Vol] 135 mmol/L Low 136-144 [facility] Comment on above: Order Comment: Speci men Type: ARTERIAL BLOOD SPECIMENOrdering Facility: [facility] Address: [address] [place] [address] Performed By: #### A LLBG ####[facility] LABCLIA [id number] [place] [address] [place] CBC panel Auto (Bld)on 09-05 Erythrocyte distribution width (RBC) [Ratio] 14.7 % Normal 11.5-15.0 [facility] Comment on above: Order Comment: Speci men Type: BLOOD SPECIMENOrdering Facility: [facility] Address: [address] [place] [address] Performed By: #### 5 8410-2 ####[facility] LABIA [id number] [place] [address] [place] Hematocrit (Bld) [Volume fraction] 31.9 % Low 36.0-46.0 [facility] Comment on above: Order Comment: Speci men Type: BLOOD SPECIMENOrdering Facility: [facility] Address: [address] [place] [address] Performed By: #### 5 8410-2 ####[facility] LABIA [id number] [place] [id number] [place] Hemoglobin (Bld) [Mass/Vol] 10.3 g/dL Low 11.5-15.5 [facility] Comment on above: Order Comment: Speci men Type: BLOOD SPECIMENOrdering Facility: [facility] Address: [address] [place] [address] Performed By: #### 5 8410-2 ####[facility] LABCLIA [id number] [place] [address] [place] MCH (RBC) [Entitic mass] 29.6 pg Normal 26.0-34.0 [facility] Comment on above: Order Comment: Speci men Type: BLOOD SPECIMENOrdering Facility: [facility] Address: [address] [place] [address] Performed By: #### 5 8410-2 ####[facility] [id number] [place] [address] [place] MCHC (RBC) [Mass/Vol] 32.3 g/dL Normal 30.5-36.0 [facility] Comment on above: Order Comment: Speci men Type: BLOOD SPECIMENOrdering Facility: [facility] Address: [address] [place] [address] Performed By: #### 5 8410-2 ####[facility] [id number] [place] [address] [place] MCV (RBC) [Entitic vol] 91.7 fL Normal 80.0-100.0 [facility] Comment on above: Order Comment: Speci men Type: BLOOD SPECIMENOrdering Facility: [facility] Address: [address] [place] [address] Performed By: #### 5 8410-2 ####[facility] [id number] [place] [address] [place] Nucleated RBC (Bld) [#/Vol] 10*3/uL Normal <0.01 [facility] Comment on above: Order Comment: Speci men Type: BLOOD SPECIMENOrdering Facility: [facility] Address: [address] [place] [address] Performed By: #### 5 8410-2 ####[facility] [id number] [place] [address] [place] Platelet mean volume (Bld) [Entitic vol] 9.7 fL Normal 9.0-12.7 [facility] Comment on above: Order Comment: Speci men Type: BLOOD SPECIMENOrdering Facility: [facility] Address: [address] [place] [address] Performed By: #### 5 8410-2 ####[facility] LABCLIA [id number] [address] [address] [place] Platelets (Bld) [#/Vol] 302 10*3/uL Normal 150-400 [facility] Comment on above: Order Comment: Speci men Type: BLOOD SPECIMENOrdering Facility: [facility] Address: [address] [place] [address] Performed By: #### 5 8410-2 ####[facility] LABCLIA [id number] [place] [address] [place] RBC (Bld) [#/Vol] 3.48 10*6/uL Low 3.90-5.20 [facility] Comment on above: Order Comment: Speci men Type: BLOOD SPECIMENOrdering Facility: [facility] Address: [address] [place] [address] Performed By: #### 5 8410-2 ####[facility] LABCLIA [id number] [place] [address] [place] WBC (Bld) [#/Vol] 18.71 10*3/uL High 3.70-11.00 [facility] Comment on above: Order Comment: Speci men Type: BLOOD SPECIMENOrdering Facility: [facility] Address: [address] [place] [address] Performed By: #### 5 8410-2 ####[facility] LABCLIA [id number] [place] [id number] [place] CONSULT PROGon 09-05-2024 CONSULT PROG Normal [facility] Comprehensive metabolic 2000 panelon 09-05-2024 Albumin [Mass/Vol] 3.3 g/dL Low 3.9-4.9 [facility] Comment on above: Order Comment: Speci men Type: BLOOD SPECIMENOrdering Facility: [facility] Address: [address] [place] [address] Performed By: #### 2 4323-8, HSTNT ####[facility] LABCLIA [id number] [place] [id number] [place] ALP [Catalytic activity/Vol] 85 U/L Normal 34-123 [facility] Comment on above: Order Comment: Speci men Type: BLOOD SPECIMENOrdering Facility: [facility] Address: [address] [place] [address] Performed By: #### 2 4323-8, HSTNT ####[facility] LABCLIA [id number] [place] [address] [place] ALT [Catalytic activity/Vol] 27 U/L Normal 7-38 [facility] Comment on above: Order Comment: Speci men Type: BLOOD SPECIMENOrdering Facility: [facility] Address: [address] [place] [address] Performed By: #### 2 4323-8, HSTNT ####[facility] LABCLIA [id number] [place] [address] [place] Anion gap [Moles/Vol] 12 mmol/L Normal 8-15 [facility] Comment on above: Order Comment: Speci men Type: BLOOD SPECIMENOrdering Facility: [facility] Address: [address] [place] [address] Performed By: #### 2 4323-8, HSTNT ####[facility] LABCLIA [id number] [place] [id number] [place] AST [Catalytic activity/Vol] 66 U/L High 13-35 [facility] Comment on above: Order Comment: Speci men Type: BLOOD SPECIMENOrdering Facility: [facility] Address: [address] [place] [address] Performed By: #### 2 4323-8, HSTNT ####[facility] LABCLIA [id number] [facility] [address] [address] [place] Bilirubin [Mass/Vol] 0.5 mg/dL Normal 0.2-1.3 [facility] Comment on above: Order Comment: Speci men Type: BLOOD SPECIMENOrdering Facility: [facility] Address: [address] [place] [address] Performed By: #### 2 4323-8, HSTNT ####[facility] LABCLIA [id number] [place] [id number] [place] Calcium [Mass/Vol] 8.3 mg/dL Low 8.5-10.2 [facility] Comment on above: Order Comment: Speci men Type: BLOOD SPECIMENOrdering Facility: [facility] Address: [address] [place] [address] Performed By: #### 2 4323-8, HSTNT ####[facility] LABCLIA [id number] [place] [id number] [place] Chloride [Moles/Vol] 103 mmol/L Normal 98-107 [facility] Comment on above: Order Comment: Speci men Type: BLOOD SPECIMENOrdering Facility: [facility] Address: [address] [place] [address] Performed By: #### 2 4323-8, HSTNT ####[facility] LABCLIA [id number] [facility] [address] [address] [place] CO2 [Moles/Vol] 23 mmol/L Normal 22-30 [facility] Comment on above: Order Comment: Speci men Type: BLOOD SPECIMENOrdering Facility: [facility] Address: [address] [place] [address] Performed By: #### 2 4323-8, HSTNT ####[facility] LABCLIA [id number] [address] [address] [place] Creatinine [Mass/Vol] 0.73 mg/dL Normal 0.58-0.96 [facility] Comment on above: Order Comment: Ulises walsh Type: BLOOD SPECIMENOrdering Facility: [facility] Address: [address] [place] [address] Performed By: #### 2 4323-8, HSTNT ####[facility] LABCLIA [id number] [place] [id number] [place] eGFRcr SerPlBld CKD-EPI 2020 102 mL/min/1.73m??? Normal >=60 [facility] Comment on above: Order Comment: Ulises walsh Type: BLOOD SPECIMENOrdering Facility: [facility] Address: [address] [place] [address] Result Comment: Tsering mated Glomerular Filtration Rate (eGFR) is calculated using the 2020 CKD-EPI creatinine equation. This equation utilizes serum creatinine, sex, and age as parameters. The creatinine assay has traceable calibration to isotope dilution-mass spectrometry. Refer to KDIGO guidelines for clinical interpretation. In patients with unstable renal function, e.g. those with acute kidney injury, the eGFR may not accurately reflect actual GFR. Performed By: #### 2 4323-8, HSTNT ####[facility] LABCLIA [id number] [place] [address] [place] Glucose [Mass/Vol] 134 mg/dL High 74-99 [facility] Comment on above: Order Comment: Ulises walsh Type: BLOOD SPECIMENOrdering Facility: [facility] Address: [address] [place] [address] Result Comment: The [place] [employer] (ADA) provides guidance for cutoff values for fasting glucose and random glucose. The ADA defines fasting as no caloric intake for at least 8 hours. Fasting plasma glucose results between 100 to 125 mg/dL indicate increased risk for diabetes (prediabetes).Fasting plasma glucose results greater than or equal to 126 mg/dL meet the criteria for diagnosis of diabetes. In the absence of unequivocal hyperglycemia, results should be confirmed by repeat testing. In a patient with classic symptoms of hyperglycemia or hyperglycemic crisis, random plasma glucose results greater than or equal to 200 mg/dL meet the criteria for diagnosis of diabetes.Reference: Standards of Medical Care in Diabetes 2016, [place] [employer]. Diabetes Care. 2016.39(Suppl 1). Performed By: #### 2 4323-8, HSTNT ####[facility] LABCLIA [id number] [address] [address] [place] Potassium [Moles/Vol] 4.8 mmol/L Normal 3.7-5.1 [facility] Comment on above: Order Comment: Speci men Type: BLOOD SPECIMENOrdering Facility: [facility] Address: [address] [place] [id number] Performed By: #### 2 4323-8, HSTNT ####[facility] LABCLIA [id number] [place] [id number] [place] Protein [Mass/Vol] 5.7 g/dL Low 6.3-8.0 [facility] Comment on above: Order Comment: Speci men Type: BLOOD SPECIMENOrdering Facility: [facility] Address: [address] [place] [id number] Performed By: #### 2 4323-8, HSTNT ####[facility] LABIA [id number] [place] [id number] [place] Sodium [Moles/Vol] 138 mmol/L Normal 136-144 [facility] Comment on above: Order Comment: Speci men Type: BLOOD SPECIMENOrdering Facility: [facility] Address: [address] [place] [id number] Performed By: #### 2 4323-8, HSTNT ####[facility] LABCLIA [id number] [address] [address] [place] Urea nitrogen [Mass/Vol] 17 mg/dL Normal 7-21 [facility] Comment on above: Order Comment: Speci men Type: BLOOD SPECIMENOrdering Facility: [facility] Address: [address] [place] [id number] Performed By: #### 2 4323-8, HSTNT ####[facility] LABCLIA [id number] [address] [place] [address] [place] Gas + CO Pnl BldVon 09-06-19 25 Body temperature 98.6 [degF] Normal [facility] Comment on above: Order Comment: Speci men Type: VENOUS BLOOD SPECIMENOrdering Facility: [facility] Address: [address] [place] [address] Performed By: #### 2 4344-4 ####[facility] LABCLIA [id number] [address] [address] [place] Order Comment: Speci men Type: ARTERIAL BLOOD SPECIMENOrdering Facility: [facility] Address: [address] [place] [address] Performed By: #### A LLBG ####[facility] LABCLIA [id number] [place] [address] [place] O2 THERAPY Positive Normal [facility] Comment on above: Order Comment: Speci men Type: VENOUS BLOOD SPECIMENOrdering Facility: [facility] Address: [address] [place] [address] Performed By: #### 2 4344-4 ####[facility] LABCLIA [id number] [place] [id number] [place] Order Comment: Speci men Type: ARTERIAL BLOOD SPECIMENOrdering Facility: [facility] Address: [address] [place] [address] Performed By: #### A LLBG ####[facility] LABCLIA [id number] [place] [id number] [place] Potassium [Moles/Vol] 3.8 mmol/L Normal 3.5-5.0 [facility] Comment on above: Order Comment: Speci men Type: VENOUS BLOOD SPECIMENOrdering Facility: [facility] Address: [address] [place] [address] Performed By: #### 2 4344-4 ####[facility] LABCLIA [id number] [facility] [address] [place] [address] [facility] [place] Order Comment: Speci men Type: ARTERIAL BLOOD SPECIMENOrdering Facility: [facility] Address: [address] [place] [address] Performed By: #### A LLBG ####[facility] LABCLIA [id number] [facility] [address] [place] [address] [place] Body temperature 98.6 [degF] Normal [facility] Comment on above: Order Comment: Speci men Type: VENOUS BLOOD SPECIMENOrdering Facility: [facility] Address: [address] [place], [place] [address] Performed By: #### 2 4344-4 ####[facility] LABCLIA [id number] [address] [place] [address] [facility] [place] Order Comment: Speci men Type: ARTERIAL BLOOD SPECIMENOrdering Facility: [facility] Address: [address] [place], [place] [address] Performed By: #### A LLBG ####[facility] LABCLIA [id number] [address] [place] [address] [facility] [place] O2 THERAPY NC = Nasal Cannula Normal [facility] Comment on above: Order Comment: Speci men Type: VENOUS BLOOD SPECIMENOrdering Facility: [facility] Address: [address] [place], [place] [address] Performed By: #### 2 4344-4 ####[facility] LABCLIA [id number] [address] [place] [address] [place] Order Comment: Speci men Type: ARTERIAL BLOOD SPECIMENOrdering Facility: [facility] Address: [address] [place] [id number] Performed By: #### A LLBG ####[facility] LABCLIA [id number] [address] [place] [address] [place] Body temperature 98.6 [degF] Normal [facility] Comment on above: Order Comment: Speci men Type: VENOUS BLOOD SPECIMENOrdering Facility: [facility] Address: [address] [place] [address] Performed By: #### 2 4344-4 ####[facility] LABCLIA [id number] [address] [place] [address] [place] Order Comment: Speci men Type: ARTERIAL BLOOD SPECIMENOrdering Facility: [facility] Address: [address] [place] [address] Performed By: #### A LLBG ####[facility] LABCLIA [id number] [address] [address] [place] Calcium.ionized (Bld) [Mass/Vol] 1.14 mmol/L Normal 1.08-1.30 [facility] Comment on above: Order Comment: Speci men Type: VENOUS BLOOD SPECIMENOrdering Facility: [facility] Address: [address] [place] [address] Performed By: #### 2 4344-4 ####[facility] LABCLIA [id number] [address] [address] [place] Order Comment: Speci men Type: ARTERIAL BLOOD SPECIMENOrdering Facility: [facility] Address: [address] [place] [address] Performed By: #### A LLBG ####[facility] LABCLIA [id number] [address] [place] [address] [place] O2 THERAPY Positive Normal [facility] Comment on above: Order Comment: Speci men Type: VENOUS BLOOD SPECIMENOrdering Facility: [facility] Address: [address] [place], [place] [address] Performed By: #### 2 4344-4 ####[facility] LABCLIA [id number] [address] [place] [address] [place] Order Comment: Speci men Type: ARTERIAL BLOOD SPECIMENOrdering Facility: [facility] Address: [address] [place], [place] [address] Performed By: #### A LLBG ####[facility] LABCLIA [id number] [address] [address] [place] Potassium [Moles/Vol] 4.2 mmol/L Normal 3.5-5.0 [facility] Comment on above: Order Comment: Speci men Type: VENOUS BLOOD SPECIMENOrdering Facility: [facility] Address: [address] [place] [address] Performed By: #### 2 4344-4 ####[facility] LABCLIA [id number] [place] [id number] [place] Order Comment: Speci men Type: ARTERIAL BLOOD SPECIMENOrdering Facility: [facility] Address: [address] [place] [address] Performed By: #### A LLBG ####[facility] LABCLIA [id number] [address] [address] [place] Body temperature 98.6 [degF] Normal [facility] Comment on above: Order Comment: Speci men Type: VENOUS BLOOD SPECIMENOrdering Facility: [facility] Address: [address] [place] [address] Performed By: #### 2 4344-4 ####[facility] LABCLIA [id number] [address] [address] [place] Order Comment: Speci men Type: ARTERIAL BLOOD SPECIMENOrdering Facility: [facility] Address: [address] [place], [place] [address] Performed By: #### A LLBG ####[facility] LABCLIA [id number] [address] [address] [place] HCO3 (Bld) [Moles/Vol] 27 mmol/L High 22-[address] [facility] Comment on above: Order Comment: Speci men Type: VENOUS BLOOD SPECIMENOrdering Facility: [facility] Address: [address] [place] [address] Performed By: #### 2 4344-4 ####[facility] LABCLIA [id number] [address] [place] [address] [place] Order Comment: Speci men Type: ARTERIAL BLOOD SPECIMENOrdering Facility: [facility] Address: [address] [place] [address] Performed By: #### A LLBG ####[facility] LABCLIA [id number] [address] [place] [address] [place] O2 THERAPY Positive Normal [facility] Comment on above: Order Comment: Speci men Type: VENOUS BLOOD SPECIMENOrdering Facility: [facility] Address: [address] [place] [address] Performed By: #### 2 4344-4 ####[facility] LABCLIA [id number] [address], [facility]95 [place] Order Comment: Speci men Type: ARTERIAL BLOOD SPECIMENOrdering Facility: [facility] Address: [address] [place] [address] Performed By: #### A LLBG ####[facility] LABCLIA [id number] [address], [facility]95 [place] Gas and Carbon monoxide pane l (BldV)on 09-05-2024 Base excess Calc (BldV) [Moles/Vol] 2 mmol/L Normal 0-2 [facility] Comment on above: Order Comment: Speci men Type: VENOUS BLOOD SPECIMENOrdering Facility: [facility] Address: [address] [place], [place] [address] Performed By: #### 2 4344-4 ####[facility] LABCLIA [id number] [address], [facility]95 [place] Calcium.ionized (Bld) [Mass/Vol] 1.15 mmol/L Normal 1.08-1.30 [facility] Comment on above: Order Comment: Speci men Type: VENOUS BLOOD SPECIMENOrdering Facility: [facility] Address: [address] [place] [address] Performed By: #### 2 4344-4 ####[facility] LABIA [id number] [place] [address] [place] Calcium.ionized adjusted to pH 7.4 (BldA) [Moles/Vol] 1.11 mmol/L Normal 1.08-1.30 [facility] Comment on above: Order Comment: Speci men Type: VENOUS BLOOD SPECIMENOrdering Facility: [facility] Address: [address] [place] [address] Performed By: #### 2 4344-4 ####[facility] LABIA [id number] [place] [address] [place] Carboxyhemoglobin (BldV) [Mass fraction] 1.4 % Normal 0.0-2.0 [facility] Comment on above: Order Comment: Speci men Type: VENOUS BLOOD SPECIMENOrdering Facility: [facility] Address: [address] [place] [address] Result Comment: Carb oxyhemoglobin Reference Range for Smokers: 2.0-8.0% Performed By: #### 2 4344-4 ####[facility] LABIA [id number] [place] [address] [place] CO2 (BldV) [Partial pressure] 54 mm[Hg] Normal 42-55 [facility] Comment on above: Order Comment: Speci men Type: VENOUS BLOOD SPECIMENOrdering Facility: [facility] Address: [address] [place] [address] Performed By: #### 2 4344-4 ####[facility] LABIA [id number] [place] [address] [place] Glucose [Mass/Vol] 63 mg/dL Normal 60-105 [facility] Comment on above: Order Comment: Speci men Type: VENOUS BLOOD SPECIMENOrdering Facility: [facility] Address: [address] [place] [address] Performed By: #### 2 4344-4 ####[facility] LABCLIA [id number] [place] [address] [place] HCO3 (Bld) [Moles/Vol] 28 mmol/L Normal 24-28 [facility] Comment on above: Order Comment: Speci men Type: VENOUS BLOOD SPECIMENOrdering Facility: [facility] Address: [address] [place] [address] Performed By: #### 2 4344-4 ####[facility] LABCLIA [id number] [place] [address] [place] Hematocrit (Bld) [Volume fraction] 27.7 % Low 36.0-46.0 [facility] Comment on above: Order Comment: Speci men Type: VENOUS BLOOD SPECIMENOrdering Facility: [facility] Address: [address] [place] [address] Performed By: #### 2 4344-4 ####[facility] LABIA [id number] [place] [address] [place] Hemoglobin (Bld) [Mass/Vol] 8.9 g/dL Low 11.5-15.5 [facility] Comment on above: Order Comment: Speci men Type: VENOUS BLOOD SPECIMENOrdering Facility: [facility] Address: [address] [place] [address] Performed By: #### 2 4344-4 ####[facility] LABCLIA [id number] [place] [id number] [place] Lactate [Moles/Vol] 0.7 mmol/L Normal 0.5-2.2 [facility] Comment on above: Order Comment: Speci men Type: VENOUS BLOOD SPECIMENOrdering Facility: [facility] Address: [address] [place] [address] Performed By: #### 2 4344-4 ####[facility] LABIA [id number] [address] [address] [place] Methemoglobin (Bld) [Mass fraction] 1.5 % Normal 0.0-1.5 [facility] Comment on above: Order Comment: Speci men Type: VENOUS BLOOD SPECIMENOrdering Facility: [facility] Address: [address] [place], [place] [address] Performed By: #### 2 4344-4 ####[facility] LABCLIA [id number] [address] [address] [place] Oxygen (BldV) [Partial pressure] 34 mm[Hg] Low 35-45 [facility] Comment on above: Order Comment: Speci men Type: VENOUS BLOOD SPECIMENOrdering Facility: [facility] Address: [address] [place] [address] Performed By: #### 2 4344-4 ####[facility] LABCLIA [id number] [place] [id number] [place] Oxygen saturation in Venous blood 53 % Low 60-85 [facility] Comment on above: Order Comment: Speci men Type: VENOUS BLOOD SPECIMENOrdering Facility: [facility] Address: [address] [place], [place] [address] Performed By: #### 2 4344-4 ####[facility] LABCLIA [id number] [address] [address] [place] Oxyhemoglobin (BldV) [Mass fraction] 52 % Low 60-85 [facility] Comment on above: Order Comment: Speci men Type: VENOUS BLOOD SPECIMENOrdering Facility: [facility] Address: [address] [place], [place] [address] Performed By: #### 2 4344-4 ####[facility] LABCLIA [id number] [address] [address] [place] pH (BldV) 7.33 [pH] Normal 7.32-7.42 [facility] Comment on above: Order Comment: Speci men Type: VENOUS BLOOD SPECIMENOrdering Facility: [facility] Address: [address] [place] [address] Performed By: #### 2 4344-4 ####[facility] LABIA [id number] [place] [address] [place] Sodium [Moles/Vol] 132 mmol/L Low 136-144 [facility] Comment on above: Order Comment: Speci men Type: VENOUS BLOOD SPECIMENOrdering Facility: [facility] Address: [address] [place] [address] Performed By: #### 2 4344-4 ####[facility] LABIA [id number] [place] [address] [place] Base excess Calc (BldV) [Moles/Vol] 2 mmol/L Normal 0-2 [facility] Comment on above: Order Comment: Speci men Type: VENOUS BLOOD SPECIMENOrdering Facility: [facility] Address: [address] [place] [address] Performed By: #### 2 4344-4 ####[facility] [id number] [place] [address] [place] Calcium.ionized (Bld) [Mass/Vol] 1.16 mmol/L Normal 1.08-1.30 [facility] Comment on above: Order Comment: Speci men Type: VENOUS BLOOD SPECIMENOrdering Facility: [facility] Address: [address] [place] [address] Performed By: #### 2 4344-4 ####[facility] LABIA [id number] [place] [address] [place] Calcium.ionized adjusted to pH 7.4 (BldA) [Moles/Vol] 1.12 mmol/L Normal 1.08-1.30 [facility] Comment on above: Order Comment: Speci men Type: VENOUS BLOOD SPECIMENOrdering Facility: [facility] Address: [address] [place] [address] Performed By: #### 2 4344-4 ####[facility] LABCLIA [id number] [address] [address] [place] Carboxyhemoglobin (BldV) [Mass fraction] 1.4 % Normal 0.0-2.0 [facility] Comment on above: Order Comment: Speci men Type: VENOUS BLOOD SPECIMENOrdering Facility: [facility] Address: [address] [place] [address] Result Comment: Carb oxyhemoglobin Reference Range for Smokers: 2.0-8.0% Performed By: #### 2 4344-4 ####[facility] LABCLIA [id number] [place] [address] [place] CO2 (BldV) [Partial pressure] 52 mm[Hg] Normal 42-55 [facility] Comment on above: Order Comment: Speci men Type: VENOUS BLOOD SPECIMENOrdering Facility: [facility] Address: [address] [place] [address] Performed By: #### 2 4344-4 ####[facility] LABCLIA [id number] [place] [id number] [place] Glucose [Mass/Vol] 71 mg/dL Normal 60-105 [facility] Comment on above: Order Comment: Speci men Type: VENOUS BLOOD SPECIMENOrdering Facility: [facility] Address: [address] [place] [address] Performed By: #### 2 4344-4 ####[facility] LABCLIA [id number] [place] [id number] [place] HCO3 (Bld) [Moles/Vol] 27 mmol/L Normal 24-28 [facility] Comment on above: Order Comment: Speci men Type: VENOUS BLOOD SPECIMENOrdering Facility: [facility] Address: [address] [place] [address] Performed By: #### 2 4344-4 ####[facility] LABIA [id number] [place] [id number] [place] Hematocrit (Bld) [Volume fraction] 26.6 % Low 36.0-46.0 [facility] Comment on above: Order Comment: Speci men Type: VENOUS BLOOD SPECIMENOrdering Facility: [facility] Address: [address] [place] [address] Performed By: #### 2 4344-4 ####[facility] LABCLIA [id number] [place] [address] [place] Hemoglobin (Bld) [Mass/Vol] 8.6 g/dL Low 11.5-15.5 [facility] Comment on above: Order Comment: Speci men Type: VENOUS BLOOD SPECIMENOrdering Facility: [facility] Address: [address] [place] [address] Performed By: #### 2 4344-4 ####[facility] LABCLIA [id number] [place] [address] [place] Lactate [Moles/Vol] 0.8 mmol/L Normal 0.5-2.2 [facility] Comment on above: Order Comment: Speci men Type: VENOUS BLOOD SPECIMENOrdering Facility: [facility] Address: [address] [place] [address] Performed By: #### 2 4344-4 ####[facility] LABCLIA [id number] [place] [address] [place] Methemoglobin (Bld) [Mass fraction] 1.1 % Normal 0.0-1.5 [facility] Comment on above: Order Comment: Speci men Type: VENOUS BLOOD SPECIMENOrdering Facility: [facility] Address: [address] [place] [address] Performed By: #### 2 4344-4 ####[facility] LABCLIA [id number] [place] [id number] [place] Oxygen (BldV) [Partial pressure] 34 mm[Hg] Low 35-45 [facility] Comment on above: Order Comment: Speci men Type: VENOUS BLOOD SPECIMENOrdering Facility: [facility] Address: [address] [place] [address] Performed By: #### 2 4344-4 ####[facility] LABCLIA [id number] [address] [address] [place] Oxygen saturation in Venous blood 60 % Normal 60-85 [facility] Comment on above: Order Comment: Speci men Type: VENOUS BLOOD SPECIMENOrdering Facility: [facility] Address: [address] [place], [place] [id number] Performed By: #### 2 4344-4 ####[facility] LABCLIA [id number] [address] [address] [place] Oxyhemoglobin (BldV) [Mass fraction] 58 % Low 60-85 [facility] Comment on above: Order Comment: Speci men Type: VENOUS BLOOD SPECIMENOrdering Facility: [facility] Address: [address] [place], [place] [address] Performed By: #### 2 4344-4 ####[facility] LABIA [id number] [address] [address] [place] pH (BldV) 7.34 [pH] Normal 7.32-7.42 [facility] Comment on above: Order Comment: Speci men Type: VENOUS BLOOD SPECIMENOrdering Facility: [facility] Address: [address] [place], [place] [address] Performed By: #### 2 4344-4 ####[facility] LABCLIA [id number] [address] [address] [place] Potassium [Moles/Vol] 3.7 mmol/L Normal 3.5-5.0 [facility] Comment on above: Order Comment: Speci men Type: VENOUS BLOOD SPECIMENOrdering Facility: [facility] Address: [address] [place], [place] [address] Performed By: #### 2 4344-4 ####[facility] LABCLIA [id number] [place] [address] [place] Sodium [Moles/Vol] 133 mmol/L Low 136-144 [facility] Comment on above: Order Comment: Speci men Type: VENOUS BLOOD SPECIMENOrdering Facility: [facility] Address: [address] [place] [address] Performed By: #### 2 4344-4 ####[facility] LABCLIA [id number] [place] [address] [place] Base excess Calc (BldV) [Moles/Vol] 2 mmol/L Normal 0-2 [facility] Comment on above: Order Comment: Speci men Type: VENOUS BLOOD SPECIMENOrdering Facility: [facility] Address: [address] [place] [address] Performed By: #### 2 4344-4 ####[facility] LABIA [id number] [place] [address] [place] Calcium.ionized (Bld) [Mass/Vol] 1.13 mmol/L Normal 1.08-1.30 [facility] Comment on above: Order Comment: Speci men Type: VENOUS BLOOD SPECIMENOrdering Facility: [facility] Address: [address] [place] [address] Performed By: #### 2 4344-4 ####[facility] LABIA [id number] [place] [address] [place] Calcium.ionized adjusted to pH 7.4 (BldA) [Moles/Vol] 1.10 mmol/L Normal 1.08-1.30 [facility] Comment on above: Order Comment: Speci men Type: VENOUS BLOOD SPECIMENOrdering Facility: [facility] Address: [address] [place] [address] Performed By: #### 2 4344-4 ####[facility] LABCLIA [id number] [place] [address] [place] Carboxyhemoglobin (BldV) [Mass fraction] 1.2 % Normal 0.0-2.0 [facility] Comment on above: Order Comment: Speci men Type: VENOUS BLOOD SPECIMENOrdering Facility: [facility] Address: [address] [place] [address] Result Comment: Carb oxyhemoglobin Reference Range for Smokers: 2.0-8.0% Performed By: #### 2 4344-4 ####[facility] LABCLIA [id number] [place] [address] [place] CO2 (BldV) [Partial pressure] 53 mm[Hg] Normal 42-55 [facility] Comment on above: Order Comment: Speci men Type: VENOUS BLOOD SPECIMENOrdering Facility: [facility] Address: [address] [place] [address] Performed By: #### 2 4344-4 ####[facility] LABCLIA [id number] [place] [address] [place] Glucose [Mass/Vol] 74 mg/dL Normal 60-105 [facility] Comment on above: Order Comment: Speci men Type: VENOUS BLOOD SPECIMENOrdering Facility: [facility] Address: [address] [place] [address] Performed By: #### 2 4344-4 ####[facility] LABCLIA [id number] [place] [address] [place] HCO3 (Bld) [Moles/Vol] 28 mmol/L Normal 24-28 [facility] Comment on above: Order Comment: Speci men Type: VENOUS BLOOD SPECIMENOrdering Facility: [facility] Address: [address] [place] [address] Performed By: #### 2 4344-4 ####[facility] LABCLIA [id number] [place] [address] [place] Hematocrit (Bld) [Volume fraction] 26.0 % Low 36.0-46.0 [facility] Comment on above: Order Comment: Speci men Type: VENOUS BLOOD SPECIMENOrdering Facility: [facility] Address: [address] [place] [address] Performed By: #### 2 4344-4 ####[facility] LABCLIA [id number] [place] [id number] [place] Hemoglobin (Bld) [Mass/Vol] 8.4 g/dL Low 11.5-15.5 [facility] Comment on above: Order Comment: Speci men Type: VENOUS BLOOD SPECIMENOrdering Facility: [facility] Address: [address] [place] [address] Performed By: #### 2 4344-4 ####[facility] LABCLIA [id number] [place] [address] [place] Lactate [Moles/Vol] 0.5 mmol/L Normal 0.5-2.2 [facility] Comment on above: Order Comment: Speci men Type: VENOUS BLOOD SPECIMENOrdering Facility: [facility] Address: [address] [place] [address] Performed By: #### 2 4344-4 ####[facility] LABIA [id number] [place] [address] [place] Methemoglobin (Bld) [Mass fraction] 1.1 % Normal 0.0-1.5 [facility] Comment on above: Order Comment: Speci men Type: VENOUS BLOOD SPECIMENOrdering Facility: [facility] Address: [address] [place] [address] Performed By: #### 2 4344-4 ####[facility] LABCLIA [id number] [place] [id number] [place] Oxygen (BldV) [Partial pressure] 35 mm[Hg] Normal 35-45 [facility] Comment on above: Order Comment: Speci men Type: VENOUS BLOOD SPECIMENOrdering Facility: [facility] Address: [address] [place], [place] [address] Performed By: #### 2 4344-4 ####[facility] LABCLIA [id number] [address] [place] [address] [place] Oxygen saturation in Venous blood 57 % Low 60-85 [facility] Comment on above: Order Comment: Speci men Type: VENOUS BLOOD SPECIMENOrdering Facility: [facility] Address: [address] [place] [address] Performed By: #### 2 4344-4 ####[facility] LABCLIA [id number] [address] [address] [place] Oxyhemoglobin (BldV) [Mass fraction] 56 % Low 60-85 [facility] Comment on above: Order Comment: Speci men Type: VENOUS BLOOD SPECIMENOrdering Facility: [facility] Address: [address] [place] [address] Performed By: #### 2 4344-4 ####[facility] LABCLIA [id number] [place] [id number] [place] pH (BldV) 7.34 [pH] Normal 7.32-7.42 [facility] Comment on above: Order Comment: Speci men Type: VENOUS BLOOD SPECIMENOrdering Facility: [facility] Address: [address] [place], [place] [address] Performed By: #### 2 4344-4 ####[facility] LABCLIA [id number] [address] [address] [place] Potassium [Moles/Vol] 3.6 mmol/L Normal 3.5-5.0 [facility] Comment on above: Order Comment: Speci men Type: VENOUS BLOOD SPECIMENOrdering Facility: [facility] Address: [address] [place] [address] Performed By: #### 2 4344-4 ####[facility] LABCLIA [id number] [address] [address] [place] Sodium [Moles/Vol] 133 mmol/L Low 136-144 [facility] Comment on above: Order Comment: Speci men Type: VENOUS BLOOD SPECIMENOrdering Facility: [facility] Address: [address] [place] [address] Performed By: #### 2 4344-4 ####[facility] [id number] [place] [address] [place] Base excess Calc (BldV) [Moles/Vol] 3 mmol/L High 0-2 [facility] Comment on above: Order Comment: Speci men Type: VENOUS BLOOD SPECIMENOrdering Facility: [facility] Address: [address] [place] [address] Performed By: #### 2 4344-4 ####[facility] [id number] [place] [address] [place] Calcium.ionized (Bld) [Mass/Vol] 1.17 mmol/L Normal 1.08-1.30 [facility] Comment on above: Order Comment: Speci men Type: VENOUS BLOOD SPECIMENOrdering Facility: [facility] Address: [address] [place] [address] Performed By: #### 2 4344-4 ####[facility] [id number] [place] [address] [place] Calcium.ionized adjusted to pH 7.4 (BldA) [Moles/Vol] 1.14 mmol/L Normal 1.08-1.30 [facility] Comment on above: Order Comment: Speci men Type: VENOUS BLOOD SPECIMENOrdering Facility: [facility] Address: [address] [place] [address] Performed By: #### 2 4344-4 ####[facility] [id number] [place] [address] [place] Carboxyhemoglobin (BldV) [Mass fraction] 1.2 % Normal 0.0-2.0 [facility] Comment on above: Order Comment: Speci men Type: VENOUS BLOOD SPECIMENOrdering Facility: [facility] Address: [address] [place] [address] Result Comment: Carb oxyhemoglobin Reference Range for Smokers: 2.0-8.0% Performed By: #### 2 4344-4 ####[facility] LABCLIA [id number] [place] [id number] [place] CO2 (BldV) [Partial pressure] 52 mm[Hg] Normal 42-55 [facility] Comment on above: Order Comment: Speci men Type: VENOUS BLOOD SPECIMENOrdering Facility: [facility] Address: [address] [place] [address] Performed By: #### 2 4344-4 ####[facility] LABCLIA [id number] [place] [address] [place] Glucose [Mass/Vol] 79 mg/dL Normal 60-105 [facility] Comment on above: Order Comment: Speci men Type: VENOUS BLOOD SPECIMENOrdering Facility: [facility] Address: [address] [place] [address] Performed By: #### 2 4344-4 ####[facility] LABCLIA [id number] [place] [id number] [place] HCO3 (Bld) [Moles/Vol] 28 mmol/L Normal 24-28 [facility] Comment on above: Order Comment: Speci men Type: VENOUS BLOOD SPECIMENOrdering Facility: [facility] Address: [address] [place] [address] Performed By: #### 2 4344-4 ####[facility] LABCLIA [id number] [place] [id number] [place] Hematocrit (Bld) [Volume fraction] 28.2 % Low 36.0-46.0 [facility] Comment on above: Order Comment: Speci men Type: VENOUS BLOOD SPECIMENOrdering Facility: [facility] Address: [address] [place] [address] Performed By: #### 2 4344-4 ####[facility] LABCLIA [id number] [address] [address] [place] Hemoglobin (Bld) [Mass/Vol] 9.1 g/dL Low 11.5-15.5 [facility] Comment on above: Order Comment: Speci men Type: VENOUS BLOOD SPECIMENOrdering Facility: [facility] Address: [address] [place] [address] Performed By: #### 2 4344-4 ####[facility] LABCLIA [id number] [place] [address] [place] Methemoglobin (Bld) [Mass fraction] 1.4 % Normal 0.0-1.5 [facility] Comment on above: Order Comment: Speci men Type: VENOUS BLOOD SPECIMENOrdering Facility: [facility] Address: [address] [place] [address] Performed By: #### 2 4344-4 ####[facility] LABCLIA [id number] [place] [id number] [place] Oxygen (BldV) [Partial pressure] 38 mm[Hg] Normal 35-45 [facility] Comment on above: Order Comment: Speci men Type: VENOUS BLOOD SPECIMENOrdering Facility: [facility] Address: [address] [place] [address] Performed By: #### 2 4344-4 ####[facility] LABCLIA [id number] [place] [id number] [place] Oxygen saturation in Venous blood 62 % Normal 60-85 [facility] Comment on above: Order Comment: Speci men Type: VENOUS BLOOD SPECIMENOrdering Facility: [facility] Address: [address] [place] [address] Performed By: #### 2 4344-4 ####[facility] LABCLIA [id number] [address] [address] [place] Oxyhemoglobin (BldV) [Mass fraction] 60 % Normal 60-85 [facility] Comment on above: Order Comment: Speci men Type: VENOUS BLOOD SPECIMENOrdering Facility: [facility] Address: [address] [place] [address] Performed By: #### 2 4344-4 ####[facility] LABIA [id number] [place] [address] [place] pH (BldV) 7.35 [pH] Normal 7.32-7.42 [facility] Comment on above: Order Comment: Speci men Type: VENOUS BLOOD SPECIMENOrdering Facility: [facility] Address: [address] [place] [address] Performed By: #### 2 4344-4 ####[facility] LABIA [id number] [place] [address] [place] Base excess Calc (BldV) [Moles/Vol] 2 mmol/L Normal 0-2 [facility] Comment on above: Order Comment: Speci men Type: VENOUS BLOOD SPECIMENOrdering Facility: [facility] Address: [address] [place] [address] Performed By: #### 2 4344-4 ####[facility] [id number] [place] [address] [place] Calcium.ionized (Bld) [Mass/Vol] 1.20 mmol/L Normal 1.08-1.30 [facility] Comment on above: Order Comment: Speci men Type: VENOUS BLOOD SPECIMENOrdering Facility: [facility] Address: [address] [place] [address] Performed By: #### 2 4344-4 ####[facility] LABIA [id number] [place] [address] [place] Calcium.ionized adjusted to pH 7.4 (BldA) [Moles/Vol] 1.16 mmol/L Normal 1.08-1.30 [facility] Comment on above: Order Comment: Speci men Type: VENOUS BLOOD SPECIMENOrdering Facility: [facility] Address: [address] [place] [address] Performed By: #### 2 4344-4 ####[facility] LABCLIA [id number] [place] [address] [place] Carboxyhemoglobin (BldV) [Mass fraction] 1.3 % Normal 0.0-2.0 [facility] Comment on above: Order Comment: Speci men Type: VENOUS BLOOD SPECIMENOrdering Facility: [facility] Address: [address] [place] [address] Result Comment: Carb oxyhemoglobin Reference Range for Smokers: 2.0-8.0% Performed By: #### 2 4344-4 ####[facility] LABIA [id number] [place] [address] [place] CO2 (BldV) [Partial pressure] 53 mm[Hg] Normal 42-55 [facility] Comment on above: Order Comment: Speci men Type: VENOUS BLOOD SPECIMENOrdering Facility: [facility] Address: [address] [place] [address] Performed By: #### 2 4344-4 ####[facility] LABIA [id number] [place] [address] [place] Glucose [Mass/Vol] 97 mg/dL Normal 60-105 [facility] Comment on above: Order Comment: Speci men Type: VENOUS BLOOD SPECIMENOrdering Facility: [facility] Address: [address] [place] [address] Performed By: #### 2 4344-4 ####[facility] LABCLIA [id number] [place] [id number] [place] HCO3 (Bld) [Moles/Vol] 28 mmol/L Normal 24-28 [facility] Comment on above: Order Comment: Speci men Type: VENOUS BLOOD SPECIMENOrdering Facility: [facility] Address: [address] [place] [address] Performed By: #### 2 4344-4 ####[facility] LABCLIA [id number] [place] [address] [place] Hematocrit (Bld) [Volume fraction] 28.2 % Low 36.0-46.0 [facility] Comment on above: Order Comment: Speci men Type: VENOUS BLOOD SPECIMENOrdering Facility: [facility] Address: [address] [place] [address] Performed By: #### 2 4344-4 ####[facility] LABIA [id number] [place] [address] [place] Lactate [Moles/Vol] 0.7 mmol/L Normal 0.5-2.2 [facility] Comment on above: Order Comment: Speci men Type: VENOUS BLOOD SPECIMENOrdering Facility: [facility] Address: [address] [place] [address] Performed By: #### 2 4344-4 ####[facility] LABCLIA [id number] [place] [address] [place] Methemoglobin (Bld) [Mass fraction] 1.1 % Normal 0.0-1.5 [facility] Comment on above: Order Comment: Speci men Type: VENOUS BLOOD SPECIMENOrdering Facility: [facility] Address: [address] [place] [address] Performed By: #### 2 4344-4 ####[facility] LABIA [id number] [place] [address] [place] Oxygen (BldV) [Partial pressure] 37 mm[Hg] Normal 35-45 [facility] Comment on above: Order Comment: Speci men Type: VENOUS BLOOD SPECIMENOrdering Facility: [facility] Address: [address] [place] [address] Performed By: #### 2 4344-4 ####[facility] LABCLIA [id number] [place] [id number] [place] Oxygen saturation in Venous blood 59 % Low 60-85 [facility] Comment on above: Order Comment: Speci men Type: VENOUS BLOOD SPECIMENOrdering Facility: [facility] Address: [address] [place] [address] Performed By: #### 2 4344-4 ####[facility] LABCLIA [id number] [place] [address] [place] Oxyhemoglobin (BldV) [Mass fraction] 58 % Low 60-85 [facility] Comment on above: Order Comment: Speci men Type: VENOUS BLOOD SPECIMENOrdering Facility: [facility] Address: [address] [place] [address] Performed By: #### 2 4344-4 ####[facility] LABIA [id number] [place] [address] [place] pH (BldV) 7.34 [pH] Normal 7.32-7.42 [facility] Comment on above: Order Comment: Speci men Type: VENOUS BLOOD SPECIMENOrdering Facility: [facility] Address: [address] [place] [address] Performed By: #### 2 4344-4 ####[facility] LABIA [id number] [place] [address] [place] Sodium [Moles/Vol] 136 mmol/L Normal 136-144 [facility] Comment on above: Order Comment: Speci men Type: VENOUS BLOOD SPECIMENOrdering Facility: [facility] Address: [address] [place] [address] Performed By: #### 2 4344-4 ####[facility] LABCLIA [id number] [place] [id number] [place] Base excess Calc (BldV) [Moles/Vol] 2 mmol/L Normal 0-2 [facility] Comment on above: Order Comment: Speci men Type: VENOUS BLOOD SPECIMENOrdering Facility: [facility] Address: [address] [place] [address] Performed By: #### 2 4344-4 ####[facility] LABCLIA [id number] [place] [address] [place] Calcium.ionized (Bld) [Mass/Vol] 1.18 mmol/L Normal 1.08-1.30 [facility] Comment on above: Order Comment: Speci men Type: VENOUS BLOOD SPECIMENOrdering Facility: [facility] Address: [address] [place] [address] Performed By: #### 2 4344-4 ####[facility] LABIA [id number] [place] [address] [place] Calcium.ionized adjusted to pH 7.4 (BldA) [Moles/Vol] 1.15 mmol/L Normal 1.08-1.30 [facility] Comment on above: Order Comment: Speci men Type: VENOUS BLOOD SPECIMENOrdering Facility: [facility] Address: [address] [place] [address] Performed By: #### 2 4344-4 ####[facility] [id number] [place] [address] [place] Carboxyhemoglobin (BldV) [Mass fraction] 1.2 % Normal 0.0-2.0 [facility] Comment on above: Order Comment: Speci men Type: VENOUS BLOOD SPECIMENOrdering Facility: [facility] Address: [address] [place] [address] Result Comment: Carb oxyhemoglobin Reference Range for Smokers: 2.0-8.0% Performed By: #### 2 4344-4 ####[facility] LABIA [id number] [place] [address] [place] CO2 (BldV) [Partial pressure] 52 mm[Hg] Normal 42-55 [facility] Comment on above: Order Comment: Speci men Type: VENOUS BLOOD SPECIMENOrdering Facility: [facility] Address: [address] [place] [address] Performed By: #### 2 4344-4 ####[facility] LABIA [id number] [address] [id number], [place] [address] [place] Glucose [Mass/Vol] 108 mg/dL High 60-105 [facility] Comment on above: Order Comment: Speci men Type: VENOUS BLOOD SPECIMENOrdering Facility: [facility] Address: [address] [place] [address] Performed By: #### 2 4344-4 ####[facility] LABCLIA [id number] [facility] [address] [address] [place] HCO3 (Bld) [Moles/Vol] 28 mmol/L Normal 24-28 [facility] Comment on above: Order Comment: Speci men Type: VENOUS BLOOD SPECIMENOrdering Facility: [facility] Address: [address] [place] [address] Performed By: #### 2 4344-4 ####[facility] LABCLIA [id number] [place] [id number] [place] Hematocrit (Bld) [Volume fraction] 29.0 % Low 36.0-46.0 [facility] Comment on above: Order Comment: Speci men Type: VENOUS BLOOD SPECIMENOrdering Facility: [facility] Address: [address] [place], [place] [address] Performed By: #### 2 4344-4 ####[facility] LABCLIA [id number] [facility] [address] [address] [place] Hemoglobin (Bld) [Mass/Vol] 9.3 g/dL Low 11.5-15.5 [facility] Comment on above: Order Comment: Speci men Type: VENOUS BLOOD SPECIMENOrdering Facility: [facility] Address: [address] [place] [address] Performed By: #### 2 4344-4 ####[facility] LABCLIA [id number] [facility] [address] [address] [place] Oxygen (BldV) [Partial pressure] 37 mm[Hg] Normal 35-45 [facility] Comment on above: Order Comment: Speci men Type: VENOUS BLOOD SPECIMENOrdering Facility: [facility] Address: [address] [place] [address] Performed By: #### 2 4344-4 ####[facility] LABCLIA [id number] [address] [place] [address] [place] Oxygen saturation in Venous blood 62 % Normal 60-85 [facility] Comment on above: Order Comment: Speci men Type: VENOUS BLOOD SPECIMENOrdering Facility: [facility] Address: [address] [place], [place] [address] Performed By: #### 2 4344-4 ####[facility] LABCLIA [id number] [address] [address] [place] Oxyhemoglobin (BldV) [Mass fraction] 60 % Normal 60-85 [facility] Comment on above: Order Comment: Speci men Type: VENOUS BLOOD SPECIMENOrdering Facility: [facility] Address: [address] [place], [place] [address] Performed By: #### 2 4344-4 ####[facility] LABIA [id number] [address] [address] [place] pH (BldV) 7.35 [pH] Normal 7.32-7.42 [facility] Comment on above: Order Comment: Speci men Type: VENOUS BLOOD SPECIMENOrdering Facility: [facility] Address: [address] [place], [place] [address] Performed By: #### 2 4344-4 ####[facility] LABCLIA [id number] [address] [address] [place] Sodium [Moles/Vol] 135 mmol/L Low 136-144 [facility] Comment on above: Order Comment: Speci men Type: VENOUS BLOOD SPECIMENOrdering Facility: [facility] Address: [address] [place] [address] Performed By: #### 2 4344-4 ####[facility] LABCLIA [id number] [address] [address] [place] Base excess Calc (BldV) [Moles/Vol] 3 mmol/L High 0-2 [facility] Comment on above: Order Comment: Speci men Type: VENOUS BLOOD SPECIMENOrdering Facility: [facility] Address: [address] [place] [address] Performed By: #### 2 4344-4 ####[facility] LABIA [id number] [place] [address] [place] Calcium.ionized adjusted to pH 7.4 (BldA) [Moles/Vol] 1.13 mmol/L Normal 1.08-1.30 [facility] Comment on above: Order Comment: Speci men Type: VENOUS BLOOD SPECIMENOrdering Facility: [facility] Address: [address] [place] [address] Performed By: #### 2 4344-4 ####[facility] [id number] [address] [place] Carboxyhemoglobin (BldV) [Mass fraction] 1.3 % Normal 0.0-2.0 [facility] Comment on above: Order Comment: Speci men Type: VENOUS BLOOD SPECIMENOrdering Facility: [facility] Address: [address] [place] [address] Result Comment: Carb oxyhemoglobin Reference Range for Smokers: 2.0-8.0% Performed By: #### 2 4344-4 ####[facility] LABIA [id number] [place] [address] [place] CO2 (BldV) [Partial pressure] 54 mm[Hg] Normal 42-55 [facility] Comment on above: Order Comment: Speci men Type: VENOUS BLOOD SPECIMENOrdering Facility: [facility] Address: [address] [place] [address] Performed By: #### 2 4344-4 ####[facility] LABIA [id number] [place] [address] [place] Glucose [Mass/Vol] 125 mg/dL High 60-105 [facility] Comment on above: Order Comment: Speci men Type: VENOUS BLOOD SPECIMENOrdering Facility: [facility] Address: [address] [place] [address] Performed By: #### 2 4344-4 ####[facility] LABCLIA [id number] [facility] [address] [address] [place] HCO3 (Bld) [Moles/Vol] 29 mmol/L High 24-28 [facility] Comment on above: Order Comment: Speci men Type: VENOUS BLOOD SPECIMENOrdering Facility: [facility] Address: [address] [place] [address] Performed By: #### 2 4344-4 ####[facility] LABCLIA [id number] [place] [address] [place] Hematocrit (Bld) [Volume fraction] 30.2 % Low 36.0-46.0 [facility] Comment on above: Order Comment: Speci men Type: VENOUS BLOOD SPECIMENOrdering Facility: [facility] Address: [address] [place] [address] Performed By: #### 2 4344-4 ####[facility] LABCLIA [id number] [address] [address] [place] Hemoglobin (Bld) [Mass/Vol] 9.8 g/dL Low 11.5-15.5 [facility] Comment on above: Order Comment: Speci men Type: VENOUS BLOOD SPECIMENOrdering Facility: [facility] Address: [address] [place] [address] Performed By: #### 2 4344-4 ####[facility] LABIA [id number] [place] [id number] [place] Methemoglobin (Bld) [Mass fraction] 1.0 % Normal 0.0-1.5 [facility] Comment on above: Order Comment: Speci men Type: VENOUS BLOOD SPECIMENOrdering Facility: [facility] Address: [address] [place] [address] Performed By: #### 2 4344-4 ####[facility] LABCLIA [id number] [place] [id number] [place] Oxygen (BldV) [Partial pressure] 33 mm[Hg] Low 35-45 [facility] Comment on above: Order Comment: Speci men Type: VENOUS BLOOD SPECIMENOrdering Facility: [facility] Address: [address] [place] [address] Performed By: #### 2 4344-4 ####[facility] LABCLIA [id number] [place] [id number] [place] Oxygen saturation in Venous blood 52 % Low 60-85 [facility] Comment on above: Order Comment: Speci men Type: VENOUS BLOOD SPECIMENOrdering Facility: [facility] Address: [address] [place] [address] Performed By: #### 2 4344-4 ####[facility] LABCLIA [id number] [place] [id number] [place] Oxyhemoglobin (BldV) [Mass fraction] 51 % Low 60-85 [facility] Comment on above: Order Comment: Speci men Type: VENOUS BLOOD SPECIMENOrdering Facility: [facility] Address: [address] [place] [address] Performed By: #### 2 4344-4 ####[facility] LABCLIA [id number] [place] [id number] [place] pH (BldV) 7.35 [pH] Normal 7.32-7.42 [facility] Comment on above: Order Comment: Speci men Type: VENOUS BLOOD SPECIMENOrdering Facility: [facility] Address: [address] [place] [address] Performed By: #### 2 4344-4 ####[facility] LABCLIA [id number] [place] [id number] [place] Potassium [Moles/Vol] 4.2 mmol/L Normal 3.5-5.0 [facility] Comment on above: Order Comment: Speci men Type: VENOUS BLOOD SPECIMENOrdering Facility: [facility] Address: [address] [place] [address] Performed By: #### 2 4344-4 ####[facility] LABCLIA [id number] [place] [address] [place] Sodium [Moles/Vol] 137 mmol/L Normal 136-144 [facility] Comment on above: Order Comment: Speci men Type: VENOUS BLOOD SPECIMENOrdering Facility: [facility] Address: [address] [place] [address] Performed By: #### 2 4344-4 ####[facility] LABCLIA [id number] [place] [address] [place] Base excess Calc (BldV) [Moles/Vol] 2 mmol/L Normal 0-2 [facility] Comment on above: Order Comment: Speci men Type: VENOUS BLOOD SPECIMENOrdering Facility: [facility] Address: [address] [place] [address] Performed By: #### 2 4344-4 ####[facility] LABIA [id number] [place] [address] [place] Calcium.ionized (Bld) [Mass/Vol] 1.19 mmol/L Normal 1.08-1.30 [facility] Comment on above: Order Comment: Speci men Type: VENOUS BLOOD SPECIMENOrdering Facility: [facility] Address: [address] [place] [address] Performed By: #### 2 4344-4 ####[facility] LABIA [id number] [place] [address] [place] Calcium.ionized adjusted to pH 7.4 (BldA) [Moles/Vol] 1.17 mmol/L Normal 1.08-1.30 [facility] Comment on above: Order Comment: Speci men Type: VENOUS BLOOD SPECIMENOrdering Facility: [facility] Address: [address] [place] [address] Performed By: #### 2 4344-4 ####[facility] LABCLIA [id number] [address] [address] [place] Carboxyhemoglobin (BldV) [Mass fraction] 1.3 % Normal 0.0-2.0 [facility] Comment on above: Order Comment: Speci men Type: VENOUS BLOOD SPECIMENOrdering Facility: [facility] Address: [address] [place] [address] Result Comment: Carb oxyhemoglobin Reference Range for Smokers: 2.0-8.0% Performed By: #### 2 4344-4 ####[facility] LABCLIA [id number] [address] [place] [address] [place] CO2 (BldV) [Partial pressure] 51 mm[Hg] Normal 42-55 [facility] Comment on above: Order Comment: Speci men Type: VENOUS BLOOD SPECIMENOrdering Facility: [facility] Address: [address] [place], [place] [address] Performed By: #### 2 4344-4 ####[facility] LABCLIA [id number] [address] [address] [place] Glucose [Mass/Vol] 124 mg/dL High 60-105 [facility] Comment on above: Order Comment: Speci men Type: VENOUS BLOOD SPECIMENOrdering Facility: [facility] Address: [address] [place] [id number] Performed By: #### 2 4344-4 ####[facility] LABCLIA [id number] [address] [address] [place] HCO3 (Bld) [Moles/Vol] 28 mmol/L Normal 24-28 [facility] Comment on above: Order Comment: Speci men Type: VENOUS BLOOD SPECIMENOrdering Facility: [facility] Address: [address] [place] [id number] Performed By: #### 2 4344-4 ####[facility] LABCLIA [id number] [place] [address] [place] Hematocrit (Bld) [Volume fraction] 31.6 % Low 36.0-46.0 [facility] Comment on above: Order Comment: Speci men Type: VENOUS BLOOD SPECIMENOrdering Facility: [facility] Address: [address] [place] [address] Performed By: #### 2 4344-4 ####[facility] LABIA [id number] [place] [address] [place] Hemoglobin (Bld) [Mass/Vol] 10.2 g/dL Low 11.5-15.5 [facility] Comment on above: Order Comment: Speci men Type: VENOUS BLOOD SPECIMENOrdering Facility: [facility] Address: [address] [place] [address] Performed By: #### 2 4344-4 ####[facility] LABIA [id number] [place] [address] [place] Lactate [Moles/Vol] 0.9 mmol/L Normal 0.5-2.2 [facility] Comment on above: Order Comment: Speci men Type: VENOUS BLOOD SPECIMENOrdering Facility: [facility] Address: [address] [place] [address] Performed By: #### 2 4344-4 ####[facility] LABIA [id number] [place] [id number] [place] Methemoglobin (Bld) [Mass fraction] 1.3 % Normal 0.0-1.5 [facility] Comment on above: Order Comment: Speci men Type: VENOUS BLOOD SPECIMENOrdering Facility: [facility] Address: [address] [place] [address] Performed By: #### 2 4344-4 ####[facility] LABIA [id number] [place] [id number] [place] Oxygen (BldV) [Partial pressure] 32 mm[Hg] Low 35-45 [facility] Comment on above: Order Comment: Speci men Type: VENOUS BLOOD SPECIMENOrdering Facility: [facility] Address: [address] [place] [address] Performed By: #### 2 4344-4 ####[facility] LABCLIA [id number] [place] [id number] [place] Oxygen saturation in Venous blood 50 % Low 60-85 [facility] Comment on above: Order Comment: Speci men Type: VENOUS BLOOD SPECIMENOrdering Facility: [facility] Address: [address] [place] [address] Performed By: #### 2 4344-4 ####[facility] LABCLIA [id number] [place] [address] [place] Oxyhemoglobin (BldV) [Mass fraction] 49 % Low 60-85 [facility] Comment on above: Order Comment: Speci men Type: VENOUS BLOOD SPECIMENOrdering Facility: [facility] Address: [address] [place] [address] Performed By: #### 2 4344-4 ####[facility] LABCLIA [id number] [place] [id number] [place] pH (BldV) 7.36 [pH] Normal 7.32-7.42 [facility] Comment on above: Order Comment: Speci men Type: VENOUS BLOOD SPECIMENOrdering Facility: [facility] Address: [address] [place], [place] [address] Performed By: #### 2 4344-4 ####[facility] LABCLIA [id number] [place] [id number] [place] Potassium [Moles/Vol] 4.3 mmol/L Normal 3.5-5.0 [facility] Comment on above: Order Comment: Speci men Type: VENOUS BLOOD SPECIMENOrdering Facility: [facility] Address: [address] [place] [address] Performed By: #### 2 4344-4 ####[facility] LABIA [id number] [place] [address] [place] Sodium [Moles/Vol] 141 mmol/L Normal 136-144 [facility] Comment on above: Order Comment: Speci men Type: VENOUS BLOOD SPECIMENOrdering Facility: [facility] Address: [address] [place] [address] Performed By: #### 2 4344-4 ####[facility] LABIA [id number] [place] [address] [place] Base excess Calc (BldV) [Moles/Vol] 3 mmol/L High 0-2 [facility] Comment on above: Order Comment: Speci men Type: VENOUS BLOOD SPECIMENOrdering Facility: [facility] Address: [address] [place] [address] Performed By: #### 2 4344-4 ####[facility] [id number] [place] [address] [place] Calcium.ionized adjusted to pH 7.4 (BldA) [Moles/Vol] 1.13 mmol/L Normal 1.08-1.30 [facility] Comment on above: Order Comment: Speci men Type: VENOUS BLOOD SPECIMENOrdering Facility: [facility] Address: [address] [place] [address] Performed By: #### 2 4344-4 ####[facility] [id number] [place] [address] [place] Carboxyhemoglobin (BldV) [Mass fraction] 1.2 % Normal 0.0-2.0 [facility] Comment on above: Order Comment: Speci men Type: VENOUS BLOOD SPECIMENOrdering Facility: [facility] Address: [address] [place] [address] Result Comment: Carb oxyhemoglobin Reference Range for Smokers: 2.0-8.0% Performed By: #### 2 4344-4 ####[facility] LABCLIA [id number] [address], [place] [address] [place] CO2 (BldV) [Partial pressure] 51 mm[Hg] Normal 42-55 [facility] Comment on above: Order Comment: Speci men Type: VENOUS BLOOD SPECIMENOrdering Facility: [facility] Address: [address] [place] [address] Performed By: #### 2 4344-4 ####[facility] LABCLIA [id number] [place] [address] [place] Glucose [Mass/Vol] 140 mg/dL High 60-105 [facility] Comment on above: Order Comment: Speci men Type: VENOUS BLOOD SPECIMENOrdering Facility: [facility] Address: [address] [place] [address] Performed By: #### 2 4344-4 ####[facility] LABCLIA [id number] [place] [address] [place] HCO3 (Bld) [Moles/Vol] 29 mmol/L High 24-28 [facility] Comment on above: Order Comment: Speci men Type: VENOUS BLOOD SPECIMENOrdering Facility: [facility] Address: [address] [place] [address] Performed By: #### 2 4344-4 ####[facility] LABCLIA [id number] [place] [id number] [place] Hematocrit (Bld) [Volume fraction] 30.3 % Low 36.0-46.0 [facility] Comment on above: Order Comment: Speci men Type: VENOUS BLOOD SPECIMENOrdering Facility: [facility] Address: [address] [place] [address] Performed By: #### 2 4344-4 ####[facility] LABCLIA [id number] [place] [id number] [place] Hemoglobin (Bld) [Mass/Vol] 9.8 g/dL Low 11.5-15.5 [facility] Comment on above: Order Comment: Speci men Type: VENOUS BLOOD SPECIMENOrdering Facility: [facility] Address: [address] [place] [address] Performed By: #### 2 4344-4 ####[facility] LABIA [id number] [place] [address] [place] Lactate [Moles/Vol] 0.8 mmol/L Normal 0.5-2.2 [facility] Comment on above: Order Comment: Speci men Type: VENOUS BLOOD SPECIMENOrdering Facility: [facility] Address: [address] [place] [address] Performed By: #### 2 4344-4 ####[facility] LABIA [id number] [place] [address] [place] Methemoglobin (Bld) [Mass fraction] 0.9 % Normal 0.0-1.5 [facility] Comment on above: Order Comment: Speci men Type: VENOUS BLOOD SPECIMENOrdering Facility: [facility] Address: [address] [place] [address] Performed By: #### 2 4344-4 ####[facility] LABIA [id number] [place] [address] [place] Oxygen (BldV) [Partial pressure] 37 mm[Hg] Normal 35-45 [facility] Comment on above: Order Comment: Speci men Type: VENOUS BLOOD SPECIMENOrdering Facility: [facility] Address: [address] [place] [address] Performed By: #### 2 4344-4 ####[facility] LABIA [id number] [place] [id number] [place] Oxygen saturation in Venous blood 63 % Normal 60-85 [facility] Comment on above: Order Comment: Speci men Type: VENOUS BLOOD SPECIMENOrdering Facility: [facility] Address: [address] [place] [id number] Performed By: #### 2 4344-4 ####[facility] LABIA [id number] [address] [address] [place] Oxyhemoglobin (BldV) [Mass fraction] 61 % Normal 60-85 [facility] Comment on above: Order Comment: Speci men Type: VENOUS BLOOD SPECIMENOrdering Facility: [facility] Address: [address] [place] [address] Performed By: #### 2 4344-4 ####[facility] LABIA [id number] [place] [id number] [place] pH (BldV) 7.37 [pH] Normal 7.32-7.42 [facility] Comment on above: Order Comment: Speci men Type: VENOUS BLOOD SPECIMENOrdering Facility: [facility] Address: [address] [place] [address] Performed By: #### 2 4344-4 ####[facility] LABIA [id number] [address] [address] [place] Sodium [Moles/Vol] 136 mmol/L Normal 136-144 [facility] Comment on above: Order Comment: Speci men Type: VENOUS BLOOD SPECIMENOrdering Facility: [facility] Address: [address] [place], [place] [id number] Performed By: #### 2 4344-4 ####[facility] LABIA [id number] [address] [address] [place] Base excess Calc (BldV) [Moles/Vol] 2 mmol/L Normal 0-2 [facility] Comment on above: Order Comment: Speci men Type: VENOUS BLOOD SPECIMENOrdering Facility: [facility] Address: [address] [place], [place] [id number] Performed By: #### 2 4344-4 ####[facility] LABIA [id number] [address] [address] [place] Calcium.ionized (Bld) [Mass/Vol] 1.13 mmol/L Normal 1.08-1.30 [facility] Comment on above: Order Comment: Speci men Type: VENOUS BLOOD SPECIMENOrdering Facility: [facility] Address: [address] [place] [address] Performed By: #### 2 4344-4 ####[facility] LABIA [id number] [place] [address] [place] Calcium.ionized adjusted to pH 7.4 (BldA) [Moles/Vol] 1.11 mmol/L Normal 1.08-1.30 [facility] Comment on above: Order Comment: Speci men Type: VENOUS BLOOD SPECIMENOrdering Facility: [facility] Address: [address] [place] [address] Performed By: #### 2 4344-4 ####[facility] [id number] [address] [place] Carboxyhemoglobin (BldV) [Mass fraction] 1.6 % Normal 0.0-2.0 [facility] Comment on above: Order Comment: Speci men Type: VENOUS BLOOD SPECIMENOrdering Facility: [facility] Address: [address] [place] [address] Result Comment: Carb oxyhemoglobin Reference Range for Smokers: 2.0-8.0% Performed By: #### 2 4344-4 ####[facility] LABIA [id number] [address] [place] CO2 (BldV) [Partial pressure] 49 mm[Hg] Normal 42-55 [facility] Comment on above: Order Comment: Speci men Type: VENOUS BLOOD SPECIMENOrdering Facility: [facility] Address: [address] [place] [address] Performed By: #### 2 4344-4 ####[facility] LABIA [id number] [place] [address] [place] Glucose [Mass/Vol] 137 mg/dL High 60-105 [facility] Comment on above: Order Comment: Speci men Type: VENOUS BLOOD SPECIMENOrdering Facility: [facility] Address: [address] [place] [address] Performed By: #### 2 4344-4 ####[facility] LABCLIA [id number] [facility] [address] [place] Hematocrit (Bld) [Volume fraction] 29.6 % Low 36.0-46.0 [facility] Comment on above: Order Comment: Speci men Type: VENOUS BLOOD SPECIMENOrdering Facility: [facility] Address: [address] [place] [address] Performed By: #### 2 4344-4 ####[facility] LABCLIA [id number] [place] [address] [place] Hemoglobin (Bld) [Mass/Vol] 9.5 g/dL Low 11.5-15.5 [facility] Comment on above: Order Comment: Speci men Type: VENOUS BLOOD SPECIMENOrdering Facility: [facility] Address: [address] [place] [address] Performed By: #### 2 4344-4 ####[facility] LABCLIA [id number] [facility] [address] [place] Lactate [Moles/Vol] 0.7 mmol/L Normal 0.5-2.2 [facility] Comment on above: Order Comment: Speci men Type: VENOUS BLOOD SPECIMENOrdering Facility: [facility] Address: [address] [place] [address] Performed By: #### 2 4344-4 ####[facility] LABCLIA [id number] [place] [address] [place] Methemoglobin (Bld) [Mass fraction] 1.8 % High 0.0-1.5 [facility] Comment on above: Order Comment: Speci men Type: VENOUS BLOOD SPECIMENOrdering Facility: [facility] Address: [address] [place] [id number] Performed By: #### 2 4344-4 ####[facility] LABCLIA [id number] [address] [address] [place] Oxygen (BldV) [Partial pressure] 42 mm[Hg] Normal 35-45 [facility] Comment on above: Order Comment: Speci men Type: VENOUS BLOOD SPECIMENOrdering Facility: [facility] Address: [address] [place] [address] Performed By: #### 2 4344-4 ####[facility] LABCLIA [id number] [address] [address] [place] Oxygen saturation in Venous blood 70 % Normal 60-85 [facility] Comment on above: Order Comment: Speci men Type: VENOUS BLOOD SPECIMENOrdering Facility: [facility] Address: [address] [place] [address] Performed By: #### 2 4344-4 ####[facility] LABCLIA [id number] [address] [address] [place] Oxyhemoglobin (BldV) [Mass fraction] 68 % Normal 60-85 [facility] Comment on above: Order Comment: Speci men Type: VENOUS BLOOD SPECIMENOrdering Facility: [facility] Address: [address] [place], [place] [address] Performed By: #### 2 4344-4 ####[facility] LABCLIA [id number] [address] [address] [place] pH (BldV) 7.36 [pH] Normal 7.32-7.42 [facility] Comment on above: Order Comment: Speci men Type: VENOUS BLOOD SPECIMENOrdering Facility: [facility] Address: [address] [place], [place] [address] Performed By: #### 2 4344-4 ####[facility] LABCLIA [id number] [address] [address] [place] Potassium [Moles/Vol] 4.1 mmol/L Normal 3.5-5.0 [facility] Comment on above: Order Comment: Speci men Type: VENOUS BLOOD SPECIMENOrdering Facility: [facility] Address: [address] [place] [address] Performed By: #### 2 4344-4 ####[facility] LABCLIA [id number] [place] [address] [place] Sodium [Moles/Vol] 137 mmol/L Normal 136-144 [facility] Comment on above: Order Comment: Speci men Type: VENOUS BLOOD SPECIMENOrdering Facility: [facility] Address: [address] [place] [address] Performed By: #### 2 4344-4 ####[facility] LABCLIA [id number] [place] [address] [place] Base excess Calc (BldV) [Moles/Vol] 1 mmol/L Normal 0-2 [facility] Comment on above: Order Comment: Speci men Type: VENOUS BLOOD SPECIMENOrdering Facility: [facility] Address: [address] [place] [address] Performed By: #### 2 4344-4 ####[facility] LABIA [id number] [place] [address] [place] Calcium.ionized (Bld) [Mass/Vol] 1.11 mmol/L Normal 1.08-1.30 [facility] Comment on above: Order Comment: Speci men Type: VENOUS BLOOD SPECIMENOrdering Facility: [facility] Address: [address] [place] [address] Performed By: #### 2 4344-4 ####[facility] LABCLIA [id number] [place] [address] [place] Calcium.ionized adjusted to pH 7.4 (BldA) [Moles/Vol] 1.08 mmol/L Normal 1.08-1.30 [facility] Comment on above: Order Comment: Speci men Type: VENOUS BLOOD SPECIMENOrdering Facility: [facility] Address: [address] [place] [address] Performed By: #### 2 4344-4 ####[facility] LABCLIA [id number] [address] [address] [place] Carboxyhemoglobin (BldV) [Mass fraction] 1.6 % Normal 0.0-2.0 [facility] Comment on above: Order Comment: Speci men Type: VENOUS BLOOD SPECIMENOrdering Facility: [facility] Address: [address] [place] [address] Result Comment: Carb oxyhemoglobin Reference Range for Smokers: 2.0-8.0% Performed By: #### 2 4344-4 ####[facility] LABCLIA [id number] [address] [place] [address] [place] CO2 (BldV) [Partial pressure] 51 mm[Hg] Normal 42-55 [facility] Comment on above: Order Comment: Speci men Type: VENOUS BLOOD SPECIMENOrdering Facility: [facility] Address: [address] [place], [place] [address] Performed By: #### 2 4344-4 ####[facility] LABCLIA [id number] [address] [place] [address] [place] Glucose [Mass/Vol] 149 mg/dL High 60-105 [facility] Comment on above: Order Comment: Speci men Type: VENOUS BLOOD SPECIMENOrdering Facility: [facility] Address: [address] [place] [address] Performed By: #### 2 4344-4 ####[facility] LABCLIA [id number] [address] [address] [place] HCO3 (Bld) [Moles/Vol] 27 mmol/L Normal 24-28 [facility] Comment on above: Order Comment: Speci men Type: VENOUS BLOOD SPECIMENOrdering Facility: [facility] Address: [address] [place] [address] Performed By: #### 2 4344-4 ####[facility] LABCLIA [id number] [place] [address] [place] Hematocrit (Bld) [Volume fraction] 30.6 % Low 36.0-46.0 [facility] Comment on above: Order Comment: Speci men Type: VENOUS BLOOD SPECIMENOrdering Facility: [facility] Address: [address] [place] [address] Performed By: #### 2 4344-4 ####[facility] LABIA [id number] [place] [address] [place] Hemoglobin (Bld) [Mass/Vol] 9.9 g/dL Low 11.5-15.5 [facility] Comment on above: Order Comment: Speci men Type: VENOUS BLOOD SPECIMENOrdering Facility: [facility] Address: [address] [place] [address] Performed By: #### 2 4344-4 ####[facility] LABIA [id number] [place] [address] [place] Methemoglobin (Bld) [Mass fraction] 0.9 % Normal 0.0-1.5 [facility] Comment on above: Order Comment: Speci men Type: VENOUS BLOOD SPECIMENOrdering Facility: [facility] Address: [address] [place] [address] Performed By: #### 2 4344-4 ####[facility] LABIA [id number] [place] [id number] [place] Oxygen (BldV) [Partial pressure] 42 mm[Hg] Normal 35-45 [facility] Comment on above: Order Comment: Speci men Type: VENOUS BLOOD SPECIMENOrdering Facility: [facility] Address: [address] [place] [address] Performed By: #### 2 4344-4 ####[facility] LABIA [id number] [place] [address] [place] Oxygen saturation in Venous blood 70 % Normal 60-85 [facility] Comment on above: Order Comment: Speci men Type: VENOUS BLOOD SPECIMENOrdering Facility: [facility] Address: [address] [place] [address] Performed By: #### 2 4344-4 ####[facility] LABCLIA [id number] [place] [address] [place] Oxyhemoglobin (BldV) [Mass fraction] 68 % Normal 60-85 [facility] Comment on above: Order Comment: Speci men Type: VENOUS BLOOD SPECIMENOrdering Facility: [facility] Address: [address] [place] [address] Performed By: #### 2 4344-4 ####[facility] LABCLIA [id number] [place] [address] [place] pH (BldV) 7.35 [pH] Normal 7.32-7.42 [facility] Comment on above: Order Comment: Speci men Type: VENOUS BLOOD SPECIMENOrdering Facility: [facility] Address: [address] [place] [address] Performed By: #### 2 4344-4 ####[facility] LABCLIA [id number] [place] [address] [place] Potassium [Moles/Vol] 4.1 mmol/L Normal 3.5-5.0 [facility] Comment on above: Order Comment: Speci men Type: VENOUS BLOOD SPECIMENOrdering Facility: [facility] Address: [address] [place], [place] [address] Performed By: #### 2 4344-4 ####[facility] LABCLIA [id number] [place] [address] [place] Base excess Calc (BldV) [Moles/Vol] 0 mmol/L Normal 0-2 [facility] Comment on above: Order Comment: Speci men Type: VENOUS BLOOD SPECIMENOrdering Facility: [facility] Address: [address] [place] [address] Performed By: #### 2 4344-4 ####[facility] [id number] [place] [address] [place] Calcium.ionized (Bld) [Mass/Vol] 1.21 mmol/L Normal 1.08-1.30 [facility] Comment on above: Order Comment: Speci men Type: VENOUS BLOOD SPECIMENOrdering Facility: [facility] Address: [address] [place] [address] Performed By: #### 2 4344-4 ####[facility] [id number] [place] [address] [place] Calcium.ionized adjusted to pH 7.4 (BldA) [Moles/Vol] 1.14 mmol/L Normal 1.08-1.30 [facility] Comment on above: Order Comment: Speci men Type: VENOUS BLOOD SPECIMENOrdering Facility: [facility] Address: [address] [place] [address] Performed By: #### 2 4344-4 ####[facility] [id number] [place] [address] [place] Carboxyhemoglobin (BldV) [Mass fraction] 1.3 % Normal 0.0-2.0 [facility] Comment on above: Order Comment: Speci men Type: VENOUS BLOOD SPECIMENOrdering Facility: [facility] Address: [address] [place] [address] Result Comment: Carb oxyhemoglobin Reference Range for Smokers: 2.0-8.0% Performed By: #### 2 4344-4 ####[facility] [id number] [place] [address] [place] CO2 (BldV) [Partial pressure] 58 mm[Hg] High 42-55 [facility] Comment on above: Order Comment: Speci men Type: VENOUS BLOOD SPECIMENOrdering Facility: [facility] Address: [address] [place] [address], [place] [address] Performed By: #### 2 4344-4 ####[facility] LABCLIA [id number] [facility] [address] [place] [address] [place] Glucose [Mass/Vol] 143 mg/dL High 60-105 [facility] Comment on above: Order Comment: Speci men Type: VENOUS BLOOD SPECIMENOrdering Facility: [facility] Address: [address] [place], [place] [address] Performed By: #### 2 4344-4 ####[facility] LABCLIA [id number] [facility] [address] [place] [address] [place] HCO3 (Bld) [Moles/Vol] 27 mmol/L Normal 24-28 [facility] Comment on above: Order Comment: Speci men Type: VENOUS BLOOD SPECIMENOrdering Facility: [facility] Address: [address] [place], [place] [address] Performed By: #### 2 4344-4 ####[facility] LABCLIA [id number] [facility] [address] [place] [address] [place] Hematocrit (Bld) [Volume fraction] 32.7 % Low 36.0-46.0 [facility] Comment on above: Order Comment: Speci men Type: VENOUS BLOOD SPECIMENOrdering Facility: [facility] Address: [address] [place] [address] Performed By: #### 2 4344-4 ####[facility] LABCLIA [id number] [facility] [address] [place] [address] [place] Hemoglobin (Bld) [Mass/Vol] 10.6 g/dL Low 11.5-15.5 [facility] Comment on above: Order Comment: Speci men Type: VENOUS BLOOD SPECIMENOrdering Facility: [facility] Address: [address] [place] [address] Performed By: #### 2 4344-4 ####[facility] LABCLIA [id number] [facility] [place] [id number] [place] Lactate [Moles/Vol] 0.9 mmol/L Normal 0.5-2.2 [facility] Comment on above: Order Comment: Speci men Type: VENOUS BLOOD SPECIMENOrdering Facility: [facility] Address: [address] [place] [address] Performed By: #### 2 4344-4 ####[facility] LABCLIA [id number] [place] [address] [place] Methemoglobin (Bld) [Mass fraction] 1.7 % High 0.0-1.5 [facility] Comment on above: Order Comment: Speci men Type: VENOUS BLOOD SPECIMENOrdering Facility: [facility] Address: [address] [place] [address] Performed By: #### 2 4344-4 ####[facility] LABCLIA [id number] [place] [id number] [place] Oxygen (BldV) [Partial pressure] 44 mm[Hg] Normal 35-45 [facility] Comment on above: Order Comment: Speci men Type: VENOUS BLOOD SPECIMENOrdering Facility: [facility] Address: [address] [place] [address] Performed By: #### 2 4344-4 ####[facility] LABCLIA [id number] [place] [id number] [place] Oxygen saturation in Venous blood 69 % Normal 60-85 [facility] Comment on above: Order Comment: Speci men Type: VENOUS BLOOD SPECIMENOrdering Facility: [facility] Address: [address] [place] [address] Performed By: #### 2 4344-4 ####[facility] LABCLIA [id number] [address] [address] [place] Oxyhemoglobin (BldV) [Mass fraction] 66 % Normal 60-85 [facility] Comment on above: Order Comment: Speci men Type: VENOUS BLOOD SPECIMENOrdering Facility: [facility] Address: [address] [place], [place] [address] Performed By: #### 2 4344-4 ####[facility] LABIA [id number] [place] [id number] [place] pH (BldV) 7.29 [pH] Low 7.32-7.42 [facility] Comment on above: Order Comment: Speci men Type: VENOUS BLOOD SPECIMENOrdering Facility: [facility] Address: [address] [place] [address] Performed By: #### 2 4344-4 ####[facility] LABIA [id number] [place] [id number] [place] Sodium [Moles/Vol] 140 mmol/L Normal 136-144 [facility] Comment on above: Order Comment: Speci men Type: VENOUS BLOOD SPECIMENOrdering Facility: [facility] Address: [address] [place] [address] Performed By: #### 2 4344-4 ####[facility] LABIA [id number] [place] [id number] [place] HIGH SENSITIVITY TROPONIN To n 09-05-2024 Troponin T.cardiac High sensitivity method [Mass/Vol] 397 ng/L High <12 [facility] Comment on above: Order Comment: Speci men Type: BLOOD SPECIMENOrdering Facility: [facility] Address: [address] [place] [address] Performed By: #### 2 4323-8, HSTNT ####[facility] LABIA [id number] [place] [id number] [place] XR CHEST 1V FRONTAL PORTon 0 09-05-2024 XR CHEST 1V FRONTAL PORT Normal [facility] ANES POSTPROC EVALon 025 ANES POSTPROC EVAL Normal [facility] ANES PRE-OPon 09-04-2024 ANES PRE-OP Normal [facility] ARTERIAL BLOOD GASESon 09-04 Base excess Calc (Bld) [Moles/Vol] 0 mmol/L Normal 0-2 [facility] Comment on above: Order Comment: Speci men Type: ARTERIAL BLOOD SPECIMENOrdering Facility: [facility] Address: [address] [place] [address] Performed By: #### A LLBG ####[facility] LABCLIA [id number] [place] [address] [place] Calcium.ionized (Bld) [Mass/Vol] 1.20 mmol/L Normal 1.08-1.30 [facility] Comment on above: Order Comment: Speci men Type: ARTERIAL BLOOD SPECIMENOrdering Facility: [facility] Address: [address] [place] [address] Performed By: #### A LLBG ####[facility] LABCLIA [id number] [place] [address] [place] Calcium.ionized adjusted to pH 7.4 (BldA) [Moles/Vol] 1.13 mmol/L Normal 1.08-1.30 [facility] Comment on above: Order Comment: Speci men Type: ARTERIAL BLOOD SPECIMENOrdering Facility: [facility] Address: [address] [place] [address] Performed By: #### A LLBG ####[facility] LABCLIA [id number] [place] [address] [place] Carboxyhemoglobin (BldA) [Mass fraction] 1.3 % Normal 0.0-2.0 [facility] Comment on above: Order Comment: Speci men Type: ARTERIAL BLOOD SPECIMENOrdering Facility: [facility] Address: [address] [place] [address] Result Comment: Carb oxyhemoglobin Reference Range for Smokers: 2.0-8.0% Performed By: #### A LLBG ####[facility] LABCLIA [id number] [place] [address] [place] CO2 (Bld) [Partial pressure] 58 mm Hg High 36-46 [facility] Comment on above: Order Comment: Speci men Type: ARTERIAL BLOOD SPECIMENOrdering Facility: [facility] Address: [address] [place] [address] Performed By: #### A LLBG ####[facility] LABCLIA [id number] [place] [address] [place] Glucose [Mass/Vol] 149 mg/dL High 60-105 [facility] Comment on above: Order Comment: Speci men Type: ARTERIAL BLOOD SPECIMENOrdering Facility: [facility] Address: [address] [place] [address] Performed By: #### A LLBG ####[facility] LABIA [id number] [place] [address] [place] Hematocrit (Bld) [Volume fraction] 32.5 % Low 36.0-46.0 [facility] Comment on above: Order Comment: Speci men Type: ARTERIAL BLOOD SPECIMENOrdering Facility: [facility] Address: [address] [place] [address] Performed By: #### A LLBG ####[facility] LABIA [id number] [place] [address] [place] Hemoglobin (Bld) [Mass/Vol] 10.5 g/dL Low 11.5-15.5 [facility] Comment on above: Order Comment: Speci men Type: ARTERIAL BLOOD SPECIMENOrdering Facility: [facility] Address: [address] [place] [address] Performed By: #### A LLBG ####[facility] LABIA [id number] [place] [address] [place] Lactate [Moles/Vol] 1.6 mmol/L Normal 0.5-2.2 [facility] Comment on above: Order Comment: Speci men Type: ARTERIAL BLOOD SPECIMENOrdering Facility: [facility] Address: [address] [place] [address] Performed By: #### A LLBG ####[facility] LABCLIA [id number] [place] [id number] [place] Methemoglobin (Bld) [Mass fraction] 1.0 % Normal 0.0-1.5 [facility] Comment on above: Order Comment: Speci men Type: ARTERIAL BLOOD SPECIMENOrdering Facility: [facility] Address: [address] [place] [address] Performed By: #### A LLBG ####[facility] LABIA [id number] [place] [id number] [place] Oxygen (Bld) [Partial pressure] 78 mm Hg Low 85-95 [facility] Comment on above: Order Comment: Speci men Type: ARTERIAL BLOOD SPECIMENOrdering Facility: [facility] Address: [address] [place] [address] Performed By: #### A LLBG ####[facility] LABIA [id number] [place] [address] [place] Oxyhemoglobin (BldA) [Mass fraction] 91 % Low 95-98 [facility] Comment on above: Order Comment: Speci men Type: ARTERIAL BLOOD SPECIMENOrdering Facility: [facility] Address: [address] [place] [address] Performed By: #### A LLBG ####[facility] LABIA [id number] [place] [id number] [place] pH (Bld) 7.29 [pH] Low 7.35-7.45 [facility] Comment on above: Order Comment: Speci men Type: ARTERIAL BLOOD SPECIMENOrdering Facility: [facility] Address: [address] [place] [address] Performed By: #### A LLBG ####[facility] LABIA [id number] [place] [id number] [place] Potassium [Moles/Vol] 4.6 mmol/L Normal 3.5-5.0 [facility] Comment on above: Order Comment: Speci men Type: ARTERIAL BLOOD SPECIMENOrdering Facility: [facility] Address: [address] [place] [address] Performed By: #### A LLBG ####[facility] LABCLIA [id number] [address] [address] [place] Sodium [Moles/Vol] 136 mmol/L Normal 136-144 [facility] Comment on above: Order Comment: Speci men Type: ARTERIAL BLOOD SPECIMENOrdering Facility: [facility] [facility] Address: [address] [place] [address] Performed By: #### A LLBG ####[facility] LABCLIA [id number] [place] [address] [place] Base excess Calc (Bld) [Moles/Vol] 1 mmol/L Normal 0-2 [facility] Comment on above: Order Comment: Speci men Type: ARTERIAL BLOOD SPECIMENOrdering Facility: [facility] Address: [address] [place] [address] Performed By: #### A LLBG ####[facility] LABIA [id number] [place] [address] [place] Body temperature 98.6 [degF] Normal [facility] Comment on above: Order Comment: Speci men Type: ARTERIAL BLOOD SPECIMENOrdering Facility: [facility] Address: [address] [place] [address] Performed By: #### A LLBG ####[facility] LABCLIA [id number] [place] [id number] [place] Order Comment: Speci men Type: VENOUS BLOOD SPECIMENOrdering Facility: [facility] Address: [address] [place] [address] Performed By: #### 2 4344-4 ####[facility] LABCLIA [id number] [place] [id number] [place] Calcium.ionized (Bld) [Mass/Vol] 1.19 mmol/L Normal 1.08-1.30 [facility] Comment on above: Order Comment: Speci men Type: ARTERIAL BLOOD SPECIMENOrdering Facility: [facility] Address: [address] [place] [address] Performed By: #### A LLBG ####[facility] LABCLIA [id number] [place] [address] [place] Calcium.ionized adjusted to pH 7.4 (BldA) [Moles/Vol] 1.16 mmol/L Normal 1.08-1.30 [facility] Comment on above: Order Comment: Speci men Type: ARTERIAL BLOOD SPECIMENOrdering Facility: [facility] Address: [address] [place] [address] Performed By: #### A LLBG ####[facility] LABCLIA [id number] [place] [address] [place] Carboxyhemoglobin (BldA) [Mass fraction] 1.2 % Normal 0.0-2.0 [facility] Comment on above: Order Comment: Speci men Type: ARTERIAL BLOOD SPECIMENOrdering Facility: [facility] Address: [address] [place] [address] Result Comment: Carb oxyhemoglobin Reference Range for Smokers: 2.0-8.0% Performed By: #### A LLBG ####[facility] LABCLIA [id number] [place] [address] [place] CO2 (Bld) [Partial pressure] 48 mm Hg High 36-46 [facility] Comment on above: Order Comment: Speci men Type: ARTERIAL BLOOD SPECIMENOrdering Facility: [facility] Address: [address] [place] [address] Performed By: #### A LLBG ####[facility] LABCLIA [id number] [place] [address] [place] FIO2 30 % Normal [facility] Comment on above: Order Comment: Speci men Type: ARTERIAL BLOOD SPECIMENOrdering Facility: [facility] Address: [address] [place], [place] [id number] Performed By: #### A LLBG ####[facility] LABCLIA [id number] [address] [place] [address] [place] Order Comment: Speci men Type: VENOUS BLOOD SPECIMENOrdering Facility: [facility] Address: [address] [place] [address] Performed By: #### 2 4344-4 ####[facility] LABCLIA [id number] [address] [place] [address] [place] Glucose [Mass/Vol] 170 mg/dL High 60-105 [facility] Comment on above: Order Comment: Speci men Type: ARTERIAL BLOOD SPECIMENOrdering Facility: [facility] Address: [address] [place] [address] Performed By: #### A LLBG ####[facility] LABCLIA [id number] [address] [place] [address] [place] HCO3 (Bld) [Moles/Vol] 26 mmol/L Normal 24-28 [facility] Comment on above: Order Comment: Speci men Type: ARTERIAL BLOOD SPECIMENOrdering Facility: [facility] Address: [address] [place] [address] Performed By: #### A LLBG ####[facility] LABCLIA [id number] [address] [place] [address] [place] Order Comment: Speci men Type: VENOUS BLOOD SPECIMENOrdering Facility: [facility] Address: [address] [place], [place] [address] Performed By: #### 2 4344-4 ####[facility] LABCLIA [id number] [address] [address] [place] Hematocrit (Bld) [Volume fraction] 32.7 % Low 36.0-46.0 [facility] Comment on above: Order Comment: Speci men Type: ARTERIAL BLOOD SPECIMENOrdering Facility: [facility] Address: [address] [place] [address] Performed By: #### A LLBG ####[facility] LABCLIA [id number] [place] [id number] [place] Hemoglobin (Bld) [Mass/Vol] 10.6 g/dL Low 11.5-15.5 [facility] Comment on above: Order Comment: Speci men Type: ARTERIAL BLOOD SPECIMENOrdering Facility: [facility] Address: [address] [place] [address] Performed By: #### A LLBG ####[facility] LABCLIA [id number] [place] [address] [place] Lactate [Moles/Vol] 1.7 mmol/L Normal 0.5-2.2 [facility] Comment on above: Order Comment: Speci men Type: ARTERIAL BLOOD SPECIMENOrdering Facility: [facility] Address: [address] [place] [address] Performed By: #### A LLBG ####[facility] LABCLIA [id number] [address] [place] Methemoglobin (Bld) [Mass fraction] 1.1 % Normal 0.0-1.5 [facility] Comment on above: Order Comment: Speci men Type: ARTERIAL BLOOD SPECIMENOrdering Facility: [facility] Address: [address] [place] [address] Performed By: #### A LLBG ####[facility] LABCLIA [id number] [place] [id number] [place] O2 THERAPY Positive Normal [facility] Comment on above: Order Comment: Speci men Type: ARTERIAL BLOOD SPECIMENOrdering Facility: [facility] Address: [address] [place], [place] [address] Performed By: #### A LLBG ####[facility] LABCLIA [id number] [address] [place] [address] [place] Order Comment: Speci men Type: VENOUS BLOOD SPECIMENOrdering Facility: [facility] Address: [address] [place] [id number] Performed By: #### 2 4344-4 ####[facility] LABCLIA [id number] [address] [address] [place] Oxygen (Bld) [Partial pressure] 116 mm Hg High 85-95 [facility] Comment on above: Order Comment: Speci men Type: ARTERIAL BLOOD SPECIMENOrdering Facility: [facility] Address: [address] [place] [address] Performed By: #### A LLBG ####[facility] LABCLIA [id number] [place] [id number] [place] Oxyhemoglobin (BldA) [Mass fraction] 96 % Normal 95-98 [facility] Comment on above: Order Comment: Speci men Type: ARTERIAL BLOOD SPECIMENOrdering Facility: [facility] Address: [address] [place] [address] Performed By: #### A LLBG ####[facility] LABCLIA [id number] [place] [address] [place] pH (Bld) 7.36 [pH] Normal 7.35-7.45 [facility] Comment on above: Order Comment: Speci men Type: ARTERIAL BLOOD SPECIMENOrdering Facility: [facility] Address: [address] [place] [address] Performed By: #### A LLBG ####[facility] LABCLIA [id number] [place] [id number] [place] PO2 / FIO2 RATIO 387 mmHg Normal >300 [facility] Comment on above: Order Comment: Speci men Type: ARTERIAL BLOOD SPECIMENOrdering Facility: [facility] Address: [address] [place], [place] [address] Performed By: #### A LLBG ####[facility] LABCLIA [id number] [place] [address] [place] Potassium [Moles/Vol] 4.5 mmol/L Normal 3.5-5.0 [facility] Comment on above: Order Comment: Speci men Type: ARTERIAL BLOOD SPECIMENOrdering Facility: [facility] Address: [address] [place] [address] Performed By: #### A LLBG ####[facility] LABCLIA [id number] [place] [address] [place] Sodium [Moles/Vol] 135 mmol/L Low 136-144 [facility] Comment on above: Order Comment: Speci men Type: ARTERIAL BLOOD SPECIMENOrdering Facility: [facility] Address: [address] [place] [address] Performed By: #### A LLBG ####[facility] LABCLIA [id number] [place] [address] [place] Base excess Calc (Bld) [Moles/Vol] 1 mmol/L Normal 0-2 [facility] Comment on above: Order Comment: Speci men Type: ARTERIAL BLOOD SPECIMENOrdering Facility: [facility] Address: [address] [place] [address] Performed By: #### A LLBG ####[facility] LABCLIA [id number] [place] [address] [place] Body temperature 98.6 [degF] Normal [facility] Comment on above: Order Comment: Speci men Type: ARTERIAL BLOOD SPECIMENOrdering Facility: [facility] Address: [address] [place] [address] Performed By: #### A LLBG ####[facility] LABCLIA [id number] [place] [address] [place] Calcium.ionized (Bld) [Mass/Vol] 1.16 mmol/L Normal 1.08-1.30 [facility] Comment on above: Order Comment: Speci men Type: ARTERIAL BLOOD SPECIMENOrdering Facility: [facility] Address: [address] [place] [address] Performed By: #### A LLBG ####[facility] LABCLIA [id number] [place] [address] [place] Calcium.ionized adjusted to pH 7.4 (BldA) [Moles/Vol] 1.16 mmol/L Normal 1.08-1.30 [facility] Comment on above: Order Comment: Speci men Type: ARTERIAL BLOOD SPECIMENOrdering Facility: [facility] Address: [address] [place] [address] Performed By: #### A LLBG ####[facility] LABCLIA [id number] [place] [address] [place] Carboxyhemoglobin (BldA) [Mass fraction] 1.9 % Normal 0.0-2.0 [facility] Comment on above: Order Comment: Speci men Type: ARTERIAL BLOOD SPECIMENOrdering Facility: [facility] Address: [address] [place] [address] Result Comment: Carb oxyhemoglobin Reference Range for Smokers: 2.0-8.0% Performed By: #### A LLBG ####[facility] LABCLIA [id number] [place] [address] [place] CO2 (Bld) [Partial pressure] 41 mm Hg Normal 36-46 [facility] Comment on above: Order Comment: Speci men Type: ARTERIAL BLOOD SPECIMENOrdering Facility: [facility] Address: [address] [place] [address] Performed By: #### A LLBG ####[facility] LABCLIA [id number] [place] [address] [place] FIO2 30 % Normal [facility] Comment on above: Order Comment: Speci men Type: ARTERIAL BLOOD SPECIMENOrdering Facility: [facility] Address: [address] [place] [address] Performed By: #### A LLBG ####[facility] LABCLIA [id number] [address] [place] [address] [place] Glucose [Mass/Vol] 187 mg/dL High 60-105 [facility] Comment on above: Order Comment: Speci men Type: ARTERIAL BLOOD SPECIMENOrdering Facility: [facility] Address: [address] [place] [address] Performed By: #### A LLBG ####[facility] LABCLIA [id number] [place] [address] [place] HCO3 (Bld) [Moles/Vol] 25 mmol/L Normal 22-26 [facility] Comment on above: Order Comment: Speci men Type: ARTERIAL BLOOD SPECIMENOrdering Facility: [facility] Address: [address] [place] [address] Performed By: #### A LLBG ####[facility] LABCLIA [id number] [place] [address] [place] Hematocrit (Bld) [Volume fraction] 32.6 % Low 36.0-46.0 [facility] Comment on above: Order Comment: Speci men Type: ARTERIAL BLOOD SPECIMENOrdering Facility: [facility] Address: [address] [place] [address] Performed By: #### A LLBG ####[facility] LABCLIA [id number] [place] [address] [place] Hemoglobin (Bld) [Mass/Vol] 10.5 g/dL Low 11.5-15.5 [facility] Comment on above: Order Comment: Speci men Type: ARTERIAL BLOOD SPECIMENOrdering Facility: [facility] Address: [address] [place] [address] Performed By: #### A LLBG ####[facility] LABCLIA [id number] [place] [id number] [place] INVASIVE VENTILATOR MODE Pressure Support, CPAP (PC-CSVs) Normal [facility] Comment on above: Order Comment: Speci men Type: ARTERIAL BLOOD SPECIMENOrdering Facility: [facility] Address: [address] [place] [address] Result Comment: ps 5 mmhg Performed By: #### A LLBG ####[facility] LABCLIA [id number] [address] [address] [place] Lactate [Moles/Vol] 1.4 mmol/L Normal 0.5-2.2 [facility] Comment on above: Order Comment: Speci men Type: ARTERIAL BLOOD SPECIMENOrdering Facility: [facility] Address: [address] [place] [address] Performed By: #### A LLBG ####[facility] LABCLIA [id number] [place] [address] [place] Methemoglobin (Bld) [Mass fraction] 1.1 % Normal 0.0-1.5 [facility] Comment on above: Order Comment: Speci men Type: ARTERIAL BLOOD SPECIMENOrdering Facility: [facility] Address: [address] [place] [address] Performed By: #### A LLBG ####[facility] LABCLIA [id number] [place] [id number] [place] O2 THERAPY VENT=Ventilator Normal [facility] Comment on above: Order Comment: Speci men Type: ARTERIAL BLOOD SPECIMENOrdering Facility: [facility] Address: [address] [place] [address] Performed By: #### A LLBG ####[facility] LABCLIA [id number] [address] [address] [place] Oxygen (Bld) [Partial pressure] 102 mm Hg High 85-95 [facility] Comment on above: Order Comment: Speci men Type: ARTERIAL BLOOD SPECIMENOrdering Facility: [facility] Address: [address] [place], [place] [id number] Performed By: #### A LLBG ####[facility] LABCLIA [id number] [address] [place] [address] [place] Oxyhemoglobin (BldA) [Mass fraction] 95 % Normal 95-98 [facility] Comment on above: Order Comment: Speci men Type: ARTERIAL BLOOD SPECIMENOrdering Facility: [facility] Address: [address] [place] [address] Performed By: #### A LLBG ####[facility] LABCLIA [id number] [place] [id number] [place] PEEP/CPAP 5 cmH2O Normal [facility] Comment on above: Order Comment: Speci men Type: ARTERIAL BLOOD SPECIMENOrdering Facility: [facility] Address: [address] [place] [address] Performed By: #### A LLBG ####[facility] LABCLIA [id number] [place] [id number] [place] pH (Bld) 7.40 [pH] Normal 7.35-7.45 [facility] Comment on above: Order Comment: Speci men Type: ARTERIAL BLOOD SPECIMENOrdering Facility: [facility] Address: [address] [place] [address] Performed By: #### A LLBG ####[facility] LABCLIA [id number] [place] [id number] [place] PO2 / FIO2 RATIO 340 mmHg Normal >300 [facility] Comment on above: Order Comment: Speci men Type: ARTERIAL BLOOD SPECIMENOrdering Facility: [facility] Address: [address] [place] [address] Performed By: #### A LLBG ####[facility] LABCLIA [id number] [place] [id number] [place] Potassium [Moles/Vol] 4.5 mmol/L Normal 3.5-5.0 [facility] Comment on above: Order Comment: Speci men Type: ARTERIAL BLOOD SPECIMENOrdering Facility: [facility] Address: [address] [place] [address] Performed By: #### A LLBG ####[facility] LABCLIA [id number] [place] [address] [place] Sodium [Moles/Vol] 135 mmol/L Low 136-144 [facility] Comment on above: Order Comment: Speci men Type: ARTERIAL BLOOD SPECIMENOrdering Facility: [facility] Address: [address] [place] [address] Performed By: #### A LLBG ####[facility] LABCLIA [id number] [place] [address] [place] Base deficit (BldA) [Moles/Vol] mmol/L Normal -2-0 [facility] Comment on above: Order Comment: Speci men Type: ARTERIAL BLOOD SPECIMENOrdering Facility: [facility] Address: [address] [place] [address] Performed By: #### A LLBG ####[facility] LABCLIA [id number] [place] [address] [place] Body temperature 98.6 [degF] Normal [facility] Comment on above: Order Comment: Speci men Type: ARTERIAL BLOOD SPECIMENOrdering Facility: [facility] Address: [address] [place] [address] Performed By: #### A LLBG ####[facility] LABCLIA [id number] [place] [address] [place] Order Comment: Speci men Type: VENOUS BLOOD SPECIMENOrdering Facility: [facility] Address: [address] [place] [address] Performed By: #### 2 4344-4 ####[facility] LABCLIA [id number] [place] [address] [place] Calcium.ionized (Bld) [Mass/Vol] 1.15 mmol/L Normal 1.08-1.30 [facility] Comment on above: Order Comment: Speci men Type: ARTERIAL BLOOD SPECIMENOrdering Facility: [facility] Address: [address] [place] [address] Performed By: #### A LLBG ####[facility] LABCLIA [id number] [place] [address] [place] Calcium.ionized adjusted to pH 7.4 (BldA) [Moles/Vol] 1.14 mmol/L Normal 1.08-1.30 [facility] Comment on above: Order Comment: Speci men Type: ARTERIAL BLOOD SPECIMENOrdering Facility: [facility] Address: [address] [place] [address] Performed By: #### A LLBG ####[facility] LABIA [id number] [place] [address] [place] Carboxyhemoglobin (BldA) [Mass fraction] 1.5 % Normal 0.0-2.0 [facility] Comment on above: Order Comment: Speci men Type: ARTERIAL BLOOD SPECIMENOrdering Facility: [facility] Address: [address] [place] [address] Result Comment: Carb oxyhemoglobin Reference Range for Smokers: 2.0-8.0% Performed By: #### A LLBG ####[facility] LABIA [id number] [place] [address] [place] CO2 (Bld) [Partial pressure] 43 mm Hg Normal 36-46 [facility] Comment on above: Order Comment: Speci men Type: ARTERIAL BLOOD SPECIMENOrdering Facility: [facility] Address: [address] [place] [address] Performed By: #### A LLBG ####[facility] LABCLIA [id number] [place] [address] [place] FIO2 40 % Normal [facility] Comment on above: Order Comment: Speci men Type: ARTERIAL BLOOD SPECIMENOrdering Facility: [facility] Address: [address] [place] [address] Performed By: #### A LLBG ####[facility] LABCLIA [id number] [place] [id number] [place] Glucose [Mass/Vol] 210 mg/dL High 60-105 [facility] Comment on above: Order Comment: Speci men Type: ARTERIAL BLOOD SPECIMENOrdering Facility: [facility] Address: [address] [place] [address] Performed By: #### A LLBG ####[facility] LABCLIA [id number] [place] [address] [place] HCO3 (Bld) [Moles/Vol] 25 mmol/L Normal 22-26 [facility] Comment on above: Order Comment: Speci men Type: ARTERIAL BLOOD SPECIMENOrdering Facility: [facility] Address: [address] [place] [address] Performed By: #### A LLBG ####[facility] LABCLIA [id number] [place] [address] [place] Hematocrit (Bld) [Volume fraction] 34.5 % Low 36.0-46.0 [facility] Comment on above: Order Comment: Speci men Type: ARTERIAL BLOOD SPECIMENOrdering Facility: [facility] Address: [address] [place] [address] Performed By: #### A LLBG ####[facility] LABCLIA [id number] [place] [address] [place] Hemoglobin (Bld) [Mass/Vol] 11.2 g/dL Low 11.5-15.5 [facility] Comment on above: Order Comment: Speci men Type: ARTERIAL BLOOD SPECIMENOrdering Facility: [facility] Address: [address] [place] [address] Performed By: #### A LLBG ####[facility] LABCLIA [id number] [place] [id number] [place] Lactate [Moles/Vol] 1.4 mmol/L Normal 0.5-2.2 [facility] Comment on above: Order Comment: Speci men Type: ARTERIAL BLOOD SPECIMENOrdering Facility: [facility] Address: [address] [place] [id number] Performed By: #### A LLBG ####[facility] LABCLIA [id number] [address] [place] [address] [place] Methemoglobin (Bld) [Mass fraction] 1.7 % High 0.0-1.5 [facility] Comment on above: Order Comment: Speci men Type: ARTERIAL BLOOD SPECIMENOrdering Facility: [facility] Address: [address] [place], [place] [id number] Performed By: #### A LLBG ####[facility] LABCLIA [id number] [place] [id number] [place] O2 THERAPY VENT=Ventilator Normal [facility] Comment on above: Order Comment: Speci men Type: ARTERIAL BLOOD SPECIMENOrdering Facility: [facility] Address: [address] [place] [address] Performed By: #### A LLBG ####[facility] LABCLIA [id number] [place] [id number] [place] Order Comment: Speci men Type: VENOUS BLOOD SPECIMENOrdering Facility: [facility] Address: [address] [place], [place] [address] Performed By: #### 2 4344-4 ####[facility] LABCLIA [id number] [address] [address] [place] Oxygen (Bld) [Partial pressure] 130 mm Hg High 85-95 [facility] Comment on above: Order Comment: Speci men Type: ARTERIAL BLOOD SPECIMENOrdering Facility: [facility] Address: [address] [address] [place], [place] [id number] Performed By: #### A LLBG ####[facility] LABCLIA [id number] [address] [address] [place] Oxyhemoglobin (BldA) [Mass fraction] 95 % Normal 95-98 [facility] Comment on above: Order Comment: Speci men Type: ARTERIAL BLOOD SPECIMENOrdering Facility: [facility] Address: [address] [place] [address] Performed By: #### A LLBG ####[facility] LABCLIA [id number] [address] [place] [address] [place] PEEP/CPAP 8 cmH2O Normal [facility] Comment on above: Order Comment: Speci men Type: ARTERIAL BLOOD SPECIMENOrdering Facility: [facility] Address: [address] [place] [address] Performed By: #### A LLBG ####[facility] LABCLIA [id number] [place] [id number] [place] Order Comment: Speci men Type: VENOUS BLOOD SPECIMENOrdering Facility: [facility] Address: [address] [place] [address] Performed By: #### 2 4344-4 ####[facility] LABCLIA [id number] [place] [id number] [place] pH (Bld) 7.38 [pH] Normal 7.35-7.45 [facility] Comment on above: Order Comment: Speci men Type: ARTERIAL BLOOD SPECIMENOrdering Facility: [facility] Address: [address] [place] [address] Performed By: #### A LLBG ####[facility] LABCLIA [id number] [address] [address] [place] PO2 / FIO2 RATIO 325 mmHg Normal >300 [facility] Comment on above: Order Comment: Speci men Type: ARTERIAL BLOOD SPECIMENOrdering Facility: [facility] Address: [address] [place] [address] Performed By: #### A LLBG ####[facility] LABCLIA [id number] [address], [facility]95 [place] Potassium [Moles/Vol] 4.8 mmol/L Normal 3.5-5.0 [facility] Comment on above: Order Comment: Speci men Type: ARTERIAL BLOOD SPECIMENOrdering Facility: [facility] Address: [address] [place] [address] Performed By: #### A LLBG ####[facility] LABCLIA [id number] [place] [address] [place] Sodium [Moles/Vol] 135 mmol/L Low 136-144 [facility] Comment on above: Order Comment: Speci men Type: ARTERIAL BLOOD SPECIMENOrdering Facility: [facility] Address: [address] [place] [address] Performed By: #### A LLBG ####[facility] LABCLIA [id number] [place] [address] [place] Order Comment: Speci men Type: VENOUS BLOOD SPECIMENOrdering Facility: [facility] Address: [address] [place] [address] Performed By: #### 2 4344-4 ####[facility] LABCLIA [id number] [place] [address] [place] Base deficit (BldA) [Moles/Vol] -1 mmol/L Normal -2-0 [facility] Comment on above: Order Comment: Speci men Type: ARTERIAL BLOOD SPECIMENOrdering Facility: [facility] Address: [address] [place] [address] Performed By: #### A LLBG ####[facility] LABCLIA [id number] [place] [address] [place] Calcium.ionized (Bld) [Mass/Vol] 1.15 mmol/L Normal 1.08-1.30 [facility] Comment on above: Order Comment: Speci men Type: ARTERIAL BLOOD SPECIMENOrdering Facility: [facility] Address: [address] [place] [address] Performed By: #### A LLBG ####[facility] LABCLIA [id number] [place] [address] [place] Carboxyhemoglobin (BldA) [Mass fraction] 1.3 % Normal 0.0-2.0 [facility] Comment on above: Order Comment: Speci men Type: ARTERIAL BLOOD SPECIMENOrdering Facility: [facility] Address: [address] [place] [address] Result Comment: Carb oxyhemoglobin Reference Range for Smokers: 2.0-8.0% Performed By: #### A LLBG ####[facility] LABIA [id number] [place] [address] [place] CO2 (Bld) [Partial pressure] 43 mm Hg Normal 36-46 [facility] Comment on above: Order Comment: Speci men Type: ARTERIAL BLOOD SPECIMENOrdering Facility: [facility] Address: [address] [place] [address] Performed By: #### A LLBG ####[facility] LABIA [id number] [place] [address] [place] Glucose [Mass/Vol] 179 mg/dL High 60-105 [facility] Comment on above: Order Comment: Speci men Type: ARTERIAL BLOOD SPECIMENOrdering Facility: [facility] Address: [address] [place] [address] Performed By: #### A LLBG ####[facility] LABIA [id number] [place] [id number] [place] HCO3 (Bld) [Moles/Vol] 24 mmol/L Normal 22-26 [facility] Comment on above: Order Comment: Speci men Type: ARTERIAL BLOOD SPECIMENOrdering Facility: [facility] Address: [address] [place] [address] Performed By: #### A LLBG ####[facility] LABIA [id number] [place] [id number] [place] Hematocrit (Bld) [Volume fraction] 36.2 % Normal 36.0-46.0 [facility] Comment on above: Order Comment: Speci men Type: ARTERIAL BLOOD SPECIMENOrdering Facility: [facility] Address: [address] [place] [address] Performed By: #### A LLBG ####[facility] LABIA [id number] [address] [address] [place] Hemoglobin (Bld) [Mass/Vol] 11.8 g/dL Normal 11.5-15.5 [facility] Comment on above: Order Comment: Speci men Type: ARTERIAL BLOOD SPECIMENOrdering Facility: [facility] Address: [address] [place] [address] Performed By: #### A LLBG ####[facility] LABIA [id number] [place] [id number] [place] Methemoglobin (Bld) [Mass fraction] 1.6 % High 0.0-1.5 [facility] Comment on above: Order Comment: Speci men Type: ARTERIAL BLOOD SPECIMENOrdering Facility: [facility] Address: [address] [place] [address] Performed By: #### A LLBG ####[facility] LABIA [id number] [address] [address] [place] Oxygen (Bld) [Partial pressure] 158 mm Hg High 85-95 [facility] Comment on above: Order Comment: Speci men Type: ARTERIAL BLOOD SPECIMENOrdering Facility: [facility] Address: [address] [place] [address] Performed By: #### A LLBG ####[facility] LABIA [id number] [place] [id number] [place] Oxyhemoglobin (BldA) [Mass fraction] 96 % Normal 95-98 [facility] Comment on above: Order Comment: Speci men Type: ARTERIAL BLOOD SPECIMENOrdering Facility: [facility] Address: [address] [place] [address] Performed By: #### A LLBG ####[facility] LABCLIA [id number] [place] [address] [place] pH (Bld) 7.36 [pH] Normal 7.35-7.45 [facility] Comment on above: Order Comment: Speci men Type: ARTERIAL BLOOD SPECIMENOrdering Facility: [facility] Address: [address] [place] [address] Performed By: #### A LLBG ####[facility] LABCLIA [id number] [place] [address] [place] Base deficit (BldA) [Moles/Vol] mmol/L Normal -2-0 [facility] Comment on above: Order Comment: Speci men Type: ARTERIAL BLOOD SPECIMENOrdering Facility: [facility] Address: [address] [place] [address] Performed By: #### A LLBG ####[facility] LABIA [id number] [place] [address] [place] Body temperature 98.6 [degF] Normal [facility] Comment on above: Order Comment: Speci men Type: ARTERIAL BLOOD SPECIMENOrdering Facility: [facility] Address: [address] [place] [address] Performed By: #### A LLBG ####[facility] LABIA [id number] [place] [address] [place] Calcium.ionized (Bld) [Mass/Vol] 1.15 mmol/L Normal 1.08-1.30 [facility] Comment on above: Order Comment: Speci men Type: ARTERIAL BLOOD SPECIMENOrdering Facility: [facility] Address: [address] [place] [address] Performed By: #### A LLBG ####[facility] LABIA [id number] [place] [address] [place] Calcium.ionized adjusted to pH 7.4 (BldA) [Moles/Vol] 1.13 mmol/L Normal 1.08-1.30 [facility] Comment on above: Order Comment: Speci men Type: ARTERIAL BLOOD SPECIMENOrdering Facility: [facility] Address: [address] [place] [address] Performed By: #### A LLBG ####[facility] LABCLIA [id number] [place] [address] [place] Carboxyhemoglobin (BldA) [Mass fraction] 1.3 % Normal 0.0-2.0 [facility] Comment on above: Order Comment: Speci men Type: ARTERIAL BLOOD SPECIMENOrdering Facility: [facility] Address: [address] [place] [address] Result Comment: Carb oxyhemoglobin Reference Range for Smokers: 2.0-8.0% Performed By: #### A LLBG ####[facility] LABCLIA [id number] [place] [address] [place] CO2 (Bld) [Partial pressure] 44 mm Hg Normal 36-46 [facility] Comment on above: Order Comment: Speci men Type: ARTERIAL BLOOD SPECIMENOrdering Facility: [facility] Address: [address] [place] [address] Performed By: #### A LLBG ####[facility] LABCLIA [id number] [place] [id number] [place] Glucose [Mass/Vol] 161 mg/dL High 60-105 [facility] Comment on above: Order Comment: Speci men Type: ARTERIAL BLOOD SPECIMENOrdering Facility: [facility] Address: [address] [place] [address] Performed By: #### A LLBG ####[facility] LABCLIA [id number] [place] [id number] [place] HCO3 (Bld) [Moles/Vol] 25 mmol/L Normal 22-26 [facility] Comment on above: Order Comment: Speci men Type: ARTERIAL BLOOD SPECIMENOrdering Facility: [facility] Address: [address] [place] [address] Performed By: #### A LLBG ####[facility] LABCLIA [id number] [place] [address] [place] Hematocrit (Bld) [Volume fraction] 33.8 % Low 36.0-46.0 [facility] Comment on above: Order Comment: Speci men Type: ARTERIAL BLOOD SPECIMENOrdering Facility: [facility] Address: [address] [place] [address] Performed By: #### A LLBG ####[facility] LABIA [id number] [place] [address] [place] Hemoglobin (Bld) [Mass/Vol] 10.9 g/dL Low 11.5-15.5 [facility] Comment on above: Order Comment: Speci men Type: ARTERIAL BLOOD SPECIMENOrdering Facility: [facility] Address: [address] [place] [address] Performed By: #### A LLBG ####[facility] LABIA [id number] [place] [address] [place] Lactate [Moles/Vol] 1.3 mmol/L Normal 0.5-2.2 [facility] Comment on above: Order Comment: Speci men Type: ARTERIAL BLOOD SPECIMENOrdering Facility: [facility] Address: [address] [place] [address] Performed By: #### A LLBG ####[facility] LABCLIA [id number] [place] [address] [place] Methemoglobin (Bld) [Mass fraction] 0.8 % Normal 0.0-1.5 [facility] Comment on above: Order Comment: Speci men Type: ARTERIAL BLOOD SPECIMENOrdering Facility: [facility] Address: [address] [place] [address] Performed By: #### A LLBG ####[facility] LABCLIA [id number] [address] [place] [address] [place] O2 THERAPY VENT=Ventilator Normal [facility] Comment on above: Order Comment: Speci men Type: ARTERIAL BLOOD SPECIMENOrdering Facility: [facility] Address: [address] [place] [address] Performed By: #### A LLBG ####[facility] LABCLIA [id number] [address] [address] [place] Oxygen (Bld) [Partial pressure] 140 mm Hg High 85-95 [facility] Comment on above: Order Comment: Speci men Type: ARTERIAL BLOOD SPECIMENOrdering Facility: [facility] Address: [address] [place] [address] Performed By: #### A LLBG ####[facility] LABCLIA [id number] [place] [id number] [place] Oxyhemoglobin (BldA) [Mass fraction] 97 % Normal 95-98 [facility] Comment on above: Order Comment: Speci men Type: ARTERIAL BLOOD SPECIMENOrdering Facility: [facility] Address: [address] [place] [address] Performed By: #### A LLBG ####[facility] LABCLIA [id number] [place] [id number] [place] pH (Bld) 7.37 [pH] Normal 7.35-7.45 [facility] Comment on above: Order Comment: Speci men Type: ARTERIAL BLOOD SPECIMENOrdering Facility: [facility] Address: [address] [place] [address] Performed By: #### A LLBG ####[facility] LABCLIA [id number] [place] [id number] [place] Potassium [Moles/Vol] 4.3 mmol/L Normal 3.5-5.0 [facility] Comment on above: Order Comment: Speci men Type: ARTERIAL BLOOD SPECIMENOrdering Facility: [facility] Address: [address] [place] [address] Performed By: #### A LLBG ####[facility] LABCLIA [id number] [place] [address] [place] Sodium [Moles/Vol] 134 mmol/L Low 136-144 [facility] Comment on above: Order Comment: Speci men Type: ARTERIAL BLOOD SPECIMENOrdering Facility: [facility] Address: [address] [place] [address] Performed By: #### A LLBG ####[facility] LABIA [id number] [place] [address] [place] Base excess Calc (Bld) [Moles/Vol] 0 mmol/L Normal 0-2 [facility] Comment on above: Order Comment: Speci men Type: ARTERIAL BLOOD SPECIMENOrdering Facility: [facility] Address: [address] [place] [address] Performed By: #### A LLBG ####[facility] LABIA [id number] [place] [address] [place] Calcium.ionized (Bld) [Mass/Vol] 1.18 mmol/L Normal 1.08-1.30 [facility] Comment on above: Order Comment: Speci men Type: ARTERIAL BLOOD SPECIMENOrdering Facility: [facility] Address: [address] [place] [address] Performed By: #### A LLBG ####[facility] LABIA [id number] [place] [address] [place] Calcium.ionized adjusted to pH 7.4 (BldA) [Moles/Vol] 1.15 mmol/L Normal 1.08-1.30 [facility] Comment on above: Order Comment: Speci men Type: ARTERIAL BLOOD SPECIMENOrdering Facility: [facility] Address: [address] [place] [address] Performed By: #### A LLBG ####[facility] LABIA [id number] [place] [id number] [place] Carboxyhemoglobin (BldA) [Mass fraction] 1.1 % Normal 0.0-2.0 [facility] Comment on above: Order Comment: Speci men Type: ARTERIAL BLOOD SPECIMENOrdering Facility: [facility] Address: [address] [place] [address] Result Comment: Carb oxyhemoglobin Reference Range for Smokers: 2.0-8.0% Performed By: #### A LLBG ####[facility] LABCLIA [id number] [place] [address] [place] CO2 (Bld) [Partial pressure] 48 mm Hg High 36-46 [facility] Comment on above: Order Comment: Speci men Type: ARTERIAL BLOOD SPECIMENOrdering Facility: [facility] Address: [address] [place] [address] Performed By: #### A LLBG ####[facility] LABCLIA [id number] [place] [address] [place] Glucose [Mass/Vol] 119 mg/dL High 60-105 [facility] Comment on above: Order Comment: Speci men Type: ARTERIAL BLOOD SPECIMENOrdering Facility: [facility] Address: [address] [place] [address] Performed By: #### A LLBG ####[facility] LABCLIA [id number] [place] [address] [place] HCO3 (Bld) [Moles/Vol] 26 mmol/L Normal 22-26 [facility] Comment on above: Order Comment: Speci men Type: ARTERIAL BLOOD SPECIMENOrdering Facility: [facility] Address: [address] [place] [address] Performed By: #### A LLBG ####[facility] LABCLIA [id number] [place] [address] [place] Hematocrit (Bld) [Volume fraction] 34.1 % Low 36.0-46.0 [facility] Comment on above: Order Comment: Speci men Type: ARTERIAL BLOOD SPECIMENOrdering Facility: [facility] Address: [address] [place] [address] Performed By: #### A LLBG ####[facility] LABCLIA [id number] [place] [id number] [place] Hemoglobin (Bld) [Mass/Vol] 11.1 g/dL Low 11.5-15.5 [facility] Comment on above: Order Comment: Speci men Type: ARTERIAL BLOOD SPECIMENOrdering Facility: [facility] Address: [address] [place] [address] Performed By: #### A LLBG ####[facility] LABIA [id number] [place] [address] [place] Lactate [Moles/Vol] 1.9 mmol/L Normal 0.5-2.2 [facility] Comment on above: Order Comment: Speci men Type: ARTERIAL BLOOD SPECIMENOrdering Facility: [facility] Address: [address] [place] [address] Performed By: #### A LLBG ####[facility] LABIA [id number] [place] [address] [place] Methemoglobin (Bld) [Mass fraction] 1.3 % Normal 0.0-1.5 [facility] Comment on above: Order Comment: Speci men Type: ARTERIAL BLOOD SPECIMENOrdering Facility: [facility] Address: [address] [place] [address] Performed By: #### A LLBG ####[facility] LABCLIA [id number] [place] [id number] [place] Oxygen (Bld) [Partial pressure] 153 mm Hg High 85-95 [facility] Comment on above: Order Comment: Speci men Type: ARTERIAL BLOOD SPECIMENOrdering Facility: [facility] Address: [address] [place] [address] Performed By: #### A LLBG ####[facility] LABCLIA [id number] [address] [address] [place] Oxyhemoglobin (BldA) [Mass fraction] 97 % Normal 95-98 [facility] Comment on above: Order Comment: Speci men Type: ARTERIAL BLOOD SPECIMENOrdering Facility: [facility] Address: [address] [place] [address] Performed By: #### A LLBG ####[facility] LABCLIA [id number] [place] [id number] [place] pH (Bld) 7.35 [pH] Normal 7.35-7.45 [facility] Comment on above: Order Comment: Speci men Type: ARTERIAL BLOOD SPECIMENOrdering Facility: [facility] Address: [address] [place] [address] Performed By: #### A LLBG ####[facility] LABCLIA [id number] [place] [address] [place] Sodium [Moles/Vol] 136 mmol/L Normal 136-144 [facility] Comment on above: Order Comment: Speci men Type: ARTERIAL BLOOD SPECIMENOrdering Facility: [facility] Address: [address] [place] [address] Performed By: #### A LLBG ####[facility] LABCLIA [id number] [place] [address] [place] Base deficit (BldA) [Moles/Vol] mmol/L Normal -2-0 [facility] Comment on above: Order Comment: Speci men Type: ARTERIAL BLOOD SPECIMENOrdering Facility: [facility] Address: [address] [place], [place] [address] Performed By: #### A LLBG ####[facility] LABCLIA [id number] [address] [address] [place] Body temperature 98.6 [degF] Normal [facility] Comment on above: Order Comment: Speci men Type: ARTERIAL BLOOD SPECIMENOrdering Facility: [facility] Address: [address] [place] [address] Performed By: #### A LLBG ####[facility] [id number] [place] [address] [place] Calcium.ionized (Bld) [Mass/Vol] 1.14 mmol/L Normal 1.08-1.30 [facility] Comment on above: Order Comment: Speci men Type: ARTERIAL BLOOD SPECIMENOrdering Facility: [facility] Address: [address] [place] [address] Performed By: #### A LLBG ####[facility] [id number] [place] [address] [place] Calcium.ionized adjusted to pH 7.4 (BldA) [Moles/Vol] 1.11 mmol/L Normal 1.08-1.30 [facility] Comment on above: Order Comment: Speci men Type: ARTERIAL BLOOD SPECIMENOrdering Facility: [facility] Address: [address] [place] [address] Performed By: #### A LLBG ####[facility] [id number] [place] [address] [place] Carboxyhemoglobin (BldA) [Mass fraction] 1.2 % Normal 0.0-2.0 [facility] Comment on above: Order Comment: Speci men Type: ARTERIAL BLOOD SPECIMENOrdering Facility: [facility] Address: [address] [place] [address] Result Comment: Carb oxyhemoglobin Reference Range for Smokers: 2.0-8.0% Performed By: #### A LLBG ####[facility] [id number] [place] [address] [place] CO2 (Bld) [Partial pressure] 46 mm Hg Normal 36-46 [facility] Comment on above: Order Comment: Speci men Type: ARTERIAL BLOOD SPECIMENOrdering Facility: [facility] Address: [address] [place] [address] Performed By: #### A LLBG ####[facility] LABCLIA [id number] [place] [address] [place] Glucose [Mass/Vol] 143 mg/dL High 60-105 [facility] Comment on above: Order Comment: Speci men Type: ARTERIAL BLOOD SPECIMENOrdering Facility: [facility] Address: [address] [place] [address] Performed By: #### A LLBG ####[facility] LABCLIA [id number] [place] [address] [place] HCO3 (Bld) [Moles/Vol] 25 mmol/L Normal 22-26 [facility] Comment on above: Order Comment: Speci men Type: ARTERIAL BLOOD SPECIMENOrdering Facility: [facility] Address: [address] [place] [address] Performed By: #### A LLBG ####[facility] LABCLIA [id number] [place] [address] [place] Hematocrit (Bld) [Volume fraction] 35.2 % Low 36.0-46.0 [facility] Comment on above: Order Comment: Speci men Type: ARTERIAL BLOOD SPECIMENOrdering Facility: [facility] Address: [address] [place] [address] Performed By: #### A LLBG ####[facility] [facility] LABCLIA [id number] [place] [address] [place] Hemoglobin (Bld) [Mass/Vol] 11.4 g/dL Low 11.5-15.5 [facility] Comment on above: Order Comment: Speci men Type: ARTERIAL BLOOD SPECIMENOrdering Facility: [facility] Address: [address] [place] [address] Performed By: #### A LLBG ####[facility] LABCLIA [id number] [place] [address] [place] Lactate [Moles/Vol] 2.8 mmol/L High 0.5-2.2 [facility] Comment on above: Order Comment: Speci men Type: ARTERIAL BLOOD SPECIMENOrdering Facility: [facility] Address: [address] [place] [address] Performed By: #### A LLBG ####[facility] LABCLIA [id number] [place] [address] [place] Methemoglobin (Bld) [Mass fraction] 1.6 % High 0.0-1.5 [facility] Comment on above: Order Comment: Speci men Type: ARTERIAL BLOOD SPECIMENOrdering Facility: [facility] Address: [address] [place] [address] Performed By: #### A LLBG ####[facility] LABCLIA [id number] [place] [address] [place] O2 THERAPY VENT=Ventilator Normal [facility] Comment on above: Order Comment: Speci men Type: ARTERIAL BLOOD SPECIMENOrdering Facility: [facility] Address: [address] [place] [address] Performed By: #### A LLBG ####[facility] LABCLIA [id number] [place] [id number] [place] Oxygen (Bld) [Partial pressure] 136 mm Hg High 85-95 [facility] Comment on above: Order Comment: Speci men Type: ARTERIAL BLOOD SPECIMENOrdering Facility: [facility] Address: [address] [place] [address] Performed By: #### A LLBG ####[facility] LABCLIA [id number] [place] [id number] [place] Oxyhemoglobin (BldA) [Mass fraction] 96 % Normal 95-98 [facility] Comment on above: Order Comment: Speci men Type: ARTERIAL BLOOD SPECIMENOrdering Facility: [facility] Address: [address] [place] [address] Performed By: #### A LLBG ####[facility] LABCLIA [id number] [place] [address] [place] pH (Bld) 7.35 [pH] Normal 7.35-7.45 [facility] Comment on above: Order Comment: Speci men Type: ARTERIAL BLOOD SPECIMENOrdering Facility: [facility] Address: [address] [place] [address] Performed By: #### A LLBG ####[facility] LABIA [id number] [place] [address] [place] Potassium [Moles/Vol] 3.2 mmol/L Low 3.5-5.0 [facility] Comment on above: Order Comment: Speci men Type: ARTERIAL BLOOD SPECIMENOrdering Facility: [facility] Address: [address] [place] [address] Performed By: #### A LLBG ####[facility] LABIA [id number] [place] [address] [place] Sodium [Moles/Vol] 133 mmol/L Low 136-144 [facility] Comment on above: Order Comment: Speci men Type: ARTERIAL BLOOD SPECIMENOrdering Facility: [facility] Address: [address] [place] [address] Performed By: #### A LLBG ####[facility] LABIA [id number] [place] [address] [place] Base excess Calc (Bld) [Moles/Vol] 0 mmol/L Normal 0-2 [facility] Comment on above: Order Comment: Speci men Type: ARTERIAL BLOOD SPECIMENOrdering Facility: [facility] Address: [address] [place] [address] Performed By: #### A LLBG ####[facility] LABIA [id number] [place] [address] [place] Calcium.ionized (Bld) [Mass/Vol] 1.16 mmol/L Normal 1.08-1.30 [facility] Comment on above: Order Comment: Speci men Type: ARTERIAL BLOOD SPECIMENOrdering Facility: [facility] Address: [address] [place] [address] Performed By: #### A LLBG ####[facility] LABCLIA [id number] [place] [address] [place] Calcium.ionized adjusted to pH 7.4 (BldA) [Moles/Vol] 1.16 mmol/L Normal 1.08-1.30 [facility] Comment on above: Order Comment: Speci men Type: ARTERIAL BLOOD SPECIMENOrdering Facility: [facility] Address: [address] [place] [address] Performed By: #### A LLBG ####[facility] LABCLIA [id number] [place] [address] [place] Carboxyhemoglobin (BldA) [Mass fraction] 1.6 % Normal 0.0-2.0 [facility] Comment on above: Order Comment: Speci men Type: ARTERIAL BLOOD SPECIMENOrdering Facility: [facility] Address: [address] [place] [address] Result Comment: Carb oxyhemoglobin Reference Range for Smokers: 2.0-8.0% Performed By: #### A LLBG ####[facility] LABCLIA [id number] [place] [address] [place] CO2 (Bld) [Partial pressure] 41 mm Hg Normal 36-46 [facility] Comment on above: Order Comment: Speci men Type: ARTERIAL BLOOD SPECIMENOrdering Facility: [facility] Address: [address] [place] [address] Performed By: #### A LLBG ####[facility] LABCLIA [id number] [place] [address] [place] CO2 adjusted to patient's actual temperature (Bld) [Partial pressure] 41 mmHg Normal 36-46 [facility] Comment on above: Order Comment: Speci men Type: ARTERIAL BLOOD SPECIMENOrdering Facility: [facility] Address: [address] [place] [address] Performed By: #### A LLBG ####[facility] LABCLIA [id number] [place] [address] [place] Glucose [Mass/Vol] 171 mg/dL High 60-105 [facility] Comment on above: Order Comment: Speci men Type: ARTERIAL BLOOD SPECIMENOrdering Facility: [facility] Address: [address] [place] [address] Performed By: #### A LLBG ####[facility] LABCLIA [id number] [place] [address] [place] HCO3 (Bld) [Moles/Vol] 24 mmol/L Normal 22-26 [facility] Comment on above: Order Comment: Speci men Type: ARTERIAL BLOOD SPECIMENOrdering Facility: [facility] Address: [address] [place] [address] Performed By: #### A LLBG ####[facility] LABCLIA [id number] [place] [address] [place] Hematocrit (Bld) [Volume fraction] 33.4 % Low 36.0-46.0 [facility] Comment on above: Order Comment: Speci men Type: ARTERIAL BLOOD SPECIMENOrdering Facility: [facility] Address: [address] [place] [address] Performed By: #### A LLBG ####[facility] LABCLIA [id number] [place] [id number] [place] Hemoglobin (Bld) [Mass/Vol] 10.8 g/dL Low 11.5-15.5 [facility] Comment on above: Order Comment: Speci men Type: ARTERIAL BLOOD SPECIMENOrdering Facility: [facility] Address: [address] [place] [address] Performed By: #### A LLBG ####[facility] LABCLIA [id number] [address] [address] [place] Lactate [Moles/Vol] 2.5 mmol/L High 0.5-2.2 [facility] Comment on above: Order Comment: Speci men Type: ARTERIAL BLOOD SPECIMENOrdering Facility: [facility] Address: [address] [place], [place] [id number] Performed By: #### A LLBG ####[facility] LABCLIA [id number] [address] [address] [place] Methemoglobin (Bld) [Mass fraction] 2.1 % High 0.0-1.5 [facility] Comment on above: Order Comment: Speci men Type: ARTERIAL BLOOD SPECIMENOrdering Facility: [facility] Address: [address] [place], [place] [id number] Performed By: #### A LLBG ####[facility] LABCLIA [id number] [place] [id number] [place] Oxygen (Bld) [Partial pressure] 211 mm Hg High 85-95 [facility] Comment on above: Order Comment: Speci men Type: ARTERIAL BLOOD SPECIMENOrdering Facility: [facility] Address: [address] [place], [place] [address] Performed By: #### A LLBG ####[facility] LABCLIA [id number] [address] [place] [address] [place] Oxygen adjusted to patient's actual temperature (Bld) [Partial pressure] 211 mmHg High 85-95 [facility] Comment on above: Order Comment: Speci men Type: ARTERIAL BLOOD SPECIMENOrdering Facility: [facility] Address: [address] [place] [address] Performed By: #### A LLBG ####[facility] LABCLIA [id number] [address] [address] [place] Oxyhemoglobin (BldA) [Mass fraction] 96 % Normal 95-98 [facility] Comment on above: Order Comment: Speci men Type: ARTERIAL BLOOD SPECIMENOrdering Facility: [facility] Address: [address] [place] [address] Performed By: #### A LLBG ####[facility] LABCLIA [id number] [place] [address] [place] pH (Bld) 7.40 [pH] Normal 7.35-7.45 [facility] Comment on above: Order Comment: Speci men Type: ARTERIAL BLOOD SPECIMENOrdering Facility: [facility] Address: [address] [place] [address] Performed By: #### A LLBG ####[facility] LABCLIA [id number] [place] [address] [place] pH adjusted to patient's actual temperature (Bld) 7.40 Normal 7.35-7.45 [facility] Comment on above: Order Comment: Speci men Type: ARTERIAL BLOOD SPECIMENOrdering Facility: [facility] Address: [address] [place] [address] Performed By: #### A LLBG ####[facility] LABIA [id number] [place] [address] [place] Potassium [Moles/Vol] 4.0 mmol/L Normal 3.5-5.0 [facility] Comment on above: Order Comment: Speci men Type: ARTERIAL BLOOD SPECIMENOrdering Facility: [facility] Address: [address] [place] [address] Performed By: #### A LLBG ####[facility] LABCLIA [id number] [place] [id number] [place] Sodium [Moles/Vol] 133 mmol/L Low 136-144 [facility] Comment on above: Order Comment: Speci men Type: ARTERIAL BLOOD SPECIMENOrdering Facility: [facility] Address: [address] [place] [address] Performed By: #### A LLBG ####[facility] LABCLIA [id number] [place] [address] [place] Base excess Calc (Bld) [Moles/Vol] 1 mmol/L Normal 0-2 [facility] Comment on above: Order Comment: Speci men Type: ARTERIAL BLOOD SPECIMENOrdering Facility: [facility] Address: [address] [place] [address] Performed By: #### A LLBG ####[facility] LABCLIA [id number] [place] [address] [place] Calcium.ionized (Bld) [Mass/Vol] 1.06 mmol/L Low 1.08-1.30 [facility] Comment on above: Order Comment: Speci men Type: ARTERIAL BLOOD SPECIMENOrdering Facility: [facility] Address: [address] [place] [address] Performed By: #### A LLBG ####[facility] LABCLIA [id number] [place] [address] [place] Calcium.ionized adjusted to pH 7.4 (BldA) [Moles/Vol] 1.07 mmol/L Low 1.08-1.30 [facility] Comment on above: Order Comment: Speci men Type: ARTERIAL BLOOD SPECIMENOrdering Facility: [facility] Address: [address] [place] [address] Performed By: #### A LLBG ####[facility] LABCLIA [id number] [place] [address] [place] Carboxyhemoglobin (BldA) [Mass fraction] 1.5 % Normal 0.0-2.0 [facility] Comment on above: Order Comment: Speci men Type: ARTERIAL BLOOD SPECIMENOrdering Facility: [facility] Address: [address] [place] [address] Result Comment: Carb oxyhemoglobin Reference Range for Smokers: 2.0-8.0% Performed By: #### A LLBG ####[facility] LABCLIA [id number] [address] [address] [id number] [address] [place] CO2 (Bld) [Partial pressure] 39 mm Hg Normal 36-46 [facility] Comment on above: Order Comment: Speci men Type: ARTERIAL BLOOD SPECIMENOrdering Facility: [facility] Address: [address] [place] [address] Performed By: #### A LLBG ####[facility] LABCLIA [id number] [place] [address] [place] CO2 adjusted to patient's actual temperature (Bld) [Partial pressure] 39 mmHg Normal 36-46 [facility] Comment on above: Order Comment: Speci men Type: ARTERIAL BLOOD SPECIMENOrdering Facility: [facility] Address: [address] [place] [address] Performed By: #### A LLBG ####[facility] LABCLIA [id number] [place] [address] [place] Glucose [Mass/Vol] 186 mg/dL High 60-105 [facility] Comment on above: Order Comment: Speci men Type: ARTERIAL BLOOD SPECIMENOrdering Facility: [facility] Address: [address] [place] [address] Performed By: #### A LLBG ####[facility] LABCLIA [id number] [place] [address] [place] HCO3 (Bld) [Moles/Vol] 25 mmol/L Normal 22-26 [facility] Comment on above: Order Comment: Speci men Type: ARTERIAL BLOOD SPECIMENOrdering Facility: [facility] Address: [address] [place] [address] Performed By: #### A LLBG ####[facility] LABCLIA [id number] [place] [id number] [place] Hematocrit (Bld) [Volume fraction] 31.8 % Low 36.0-46.0 [facility] Comment on above: Order Comment: Speci men Type: ARTERIAL BLOOD SPECIMENOrdering Facility: [facility] Address: [address] [place] [address] Performed By: #### A LLBG ####[facility] LABCLIA [id number] [place] [id number] [place] Hemoglobin (Bld) [Mass/Vol] 10.3 g/dL Low 11.5-15.5 [facility] Comment on above: Order Comment: Speci men Type: ARTERIAL BLOOD SPECIMENOrdering Facility: [facility] Address: [address] [place] [address] Performed By: #### A LLBG ####[facility] LABCLIA [id number] [place] [address] [place] Lactate [Moles/Vol] 2.5 mmol/L High 0.5-2.2 [facility] Comment on above: Order Comment: Speci men Type: ARTERIAL BLOOD SPECIMENOrdering Facility: [facility] Address: [address] [place] [address] Performed By: #### A LLBG ####[facility] LABCLIA [id number] [place] [id number] [place] Methemoglobin (Bld) [Mass fraction] 1.3 % Normal 0.0-1.5 [facility] Comment on above: Order Comment: Speci men Type: ARTERIAL BLOOD SPECIMENOrdering Facility: [facility] Address: [address] [place] [address] Performed By: #### A LLBG ####[facility] LABCLIA [id number] [place] [id number] [place] Oxygen (Bld) [Partial pressure] 153 mm Hg High 85-95 [facility] Comment on above: Order Comment: Speci men Type: ARTERIAL BLOOD SPECIMENOrdering Facility: [facility] Address: [address] [place] [address] Performed By: #### A LLBG ####[facility] LABCLIA [id number] [place] [id number] [place] Oxygen adjusted to patient's actual temperature (Bld) [Partial pressure] 153 mmHg High 85-95 [facility] Comment on above: Order Comment: Speci men Type: ARTERIAL BLOOD SPECIMENOrdering Facility: [facility] Address: [address] [place] [address] Performed By: #### A LLBG ####[facility] LABCLIA [id number] [place] [id number] [place] Oxyhemoglobin (BldA) [Mass fraction] 96 % Normal 95-98 [facility] Comment on above: Order Comment: Speci men Type: ARTERIAL BLOOD SPECIMENOrdering Facility: [facility] Address: [address] [place] [address] Performed By: #### A LLBG ####[facility] LABCLIA [id number] [place] [id number] [place] pH (Bld) 7.41 [pH] Normal 7.35-7.45 [facility] Comment on above: Order Comment: Speci men Type: ARTERIAL BLOOD SPECIMENOrdering Facility: [facility] Address: [address] [place] [address] Performed By: #### A LLBG ####[facility] LABCLIA [id number] [place] [id number] [place] pH adjusted to patient's actual temperature (Bld) 7.41 Normal 7.35-7.45 [facility] Comment on above: Order Comment: Speci men Type: ARTERIAL BLOOD SPECIMENOrdering Facility: [facility] Address: [address] [place] [address] Performed By: #### A LLBG ####[facility] LABCLIA [id number] [place] [id number] [place] Potassium [Moles/Vol] 3.3 mmol/L Low 3.5-5.0 [facility] Comment on above: Order Comment: Speci men Type: ARTERIAL BLOOD SPECIMENOrdering Facility: [facility] Address: [address] [place] [address] Performed By: #### A LLBG ####[facility] LABCLIA [id number] [place] [address] [place] Sodium [Moles/Vol] 132 mmol/L Low 136-144 [facility] Comment on above: Order Comment: Speci men Type: ARTERIAL BLOOD SPECIMENOrdering Facility: [facility] Address: [address] [place] [address] Performed By: #### A LLBG ####[facility] LABCLIA [id number] [place] [address] [place] Base excess Calc (Bld) [Moles/Vol] 2 mmol/L Normal 0-2 [facility] Comment on above: Order Comment: Speci men Type: ARTERIAL BLOOD SPECIMENOrdering Facility: [facility] Address: [address] [place] [address] Performed By: #### A LLBG ####[facility] LABIA [id number] [place] [address] [place] Calcium.ionized (Bld) [Mass/Vol] 1.03 mmol/L Low 1.08-1.30 [facility] Comment on above: Order Comment: Speci men Type: ARTERIAL BLOOD SPECIMENOrdering Facility: [facility] Address: [address] [place] [address] Performed By: #### A LLBG ####[facility] LABCLIA [id number] [place] [id number] [place] Calcium.ionized adjusted to pH 7.4 (BldA) [Moles/Vol] 1.04 mmol/L Low 1.08-1.30 [facility] Comment on above: Order Comment: Speci men Type: ARTERIAL BLOOD SPECIMENOrdering Facility: [facility] Address: [address] [place] [address] Performed By: #### A LLBG ####[facility] LABCLIA [id number] [place] [address] [place] Carboxyhemoglobin (BldA) [Mass fraction] 1.6 % Normal 0.0-2.0 [facility] Comment on above: Order Comment: Speci men Type: ARTERIAL BLOOD SPECIMENOrdering Facility: [facility] Address: [address] [place] [address] Result Comment: Carb oxyhemoglobin Reference Range for Smokers: 2.0-8.0% Performed By: #### A LLBG ####[facility] LABCLIA [id number] [place] [address] [place] CO2 (Bld) [Partial pressure] 40 mm Hg Normal 36-46 [facility] Comment on above: Order Comment: Speci men Type: ARTERIAL BLOOD SPECIMENOrdering Facility: [facility] Address: [address] [place] [address] Performed By: #### A LLBG ####[facility] LABCLIA [id number] [address] [place] CO2 adjusted to patient's actual temperature (Bld) [Partial pressure] 40 mmHg Normal 36-46 [facility] Comment on above: Order Comment: Speci men Type: ARTERIAL BLOOD SPECIMENOrdering Facility: [facility] Address: [address] [place] [address] Performed By: #### A LLBG ####[facility] LABCLIA [id number] [place] [address] [place] Glucose [Mass/Vol] 229 mg/dL High 60-105 [facility] Comment on above: Order Comment: Speci men Type: ARTERIAL BLOOD SPECIMENOrdering Facility: [facility] Address: [address] [place] [address] Performed By: #### A LLBG ####[facility] LABCLIA [id number] [place] [id number] [place] HCO3 (Bld) [Moles/Vol] 26 mmol/L Normal 22-26 [facility] Comment on above: Order Comment: Speci men Type: ARTERIAL BLOOD SPECIMENOrdering Facility: [facility] Address: [address] [place] [address] Performed By: #### A LLBG ####[facility] LABIA [id number] [place] [address] [place] Hematocrit (Bld) [Volume fraction] 29.0 % Low 36.0-46.0 [facility] Comment on above: Order Comment: Speci men Type: ARTERIAL BLOOD SPECIMENOrdering Facility: [facility] Address: [address] [place] [address] Performed By: #### A LLBG ####[facility] [id number] [place] [address] [place] Hemoglobin (Bld) [Mass/Vol] 9.4 g/dL Low 11.5-15.5 [facility] Comment on above: Order Comment: Speci men Type: ARTERIAL BLOOD SPECIMENOrdering Facility: [facility] Address: [address] [place] [address] Performed By: #### A LLBG ####[facility] LABIA [id number] [place] [address] [place] Lactate [Moles/Vol] 1.8 mmol/L Normal 0.5-2.2 [facility] Comment on above: Order Comment: Speci men Type: ARTERIAL BLOOD SPECIMENOrdering Facility: [facility] Address: [address] [place] [address] Performed By: #### A LLBG ####[facility] LABIA [id number] [place] [address] [place] Methemoglobin (Bld) [Mass fraction] 1.2 % Normal 0.0-1.5 [facility] Comment on above: Order Comment: Speci men Type: ARTERIAL BLOOD SPECIMENOrdering Facility: [facility] Address: [address] [place] [address] Performed By: #### A LLBG ####[facility] LABCLIA [id number] [address] [place] [address] [place] Oxygen (Bld) [Partial pressure] 315 mm Hg High 85-95 [facility] Comment on above: Order Comment: Speci men Type: ARTERIAL BLOOD SPECIMENOrdering Facility: [facility] Address: [address] [place], [place] [id number] Performed By: #### A LLBG ####[facility] LABCLIA [id number] [address] [place] [address] [place] Oxygen adjusted to patient's actual temperature (Bld) [Partial pressure] 315 mmHg High 85-95 [facility] Comment on above: Order Comment: Speci men Type: ARTERIAL BLOOD SPECIMENOrdering Facility: [facility] Address: [address] [place] [address] Performed By: #### A LLBG ####[facility] LABIA [id number] [address] [address] [place] Oxyhemoglobin (BldA) [Mass fraction] 97 % Normal 95-98 [facility] Comment on above: Order Comment: Speci men Type: ARTERIAL BLOOD SPECIMENOrdering Facility: [facility] Address: [address] [place], [place] [id number] Performed By: #### A LLBG ####[facility] LABCLIA [id number] [address] [address] [place] pH (Bld) 7.43 [pH] Normal 7.35-7.45 [facility] Comment on above: Order Comment: Speci men Type: ARTERIAL BLOOD SPECIMENOrdering Facility: [facility] Address: [address] [place], [place] [id number] Performed By: #### A LLBG ####[facility] LABCLIA [id number] [address] [address] [place] pH adjusted to patient's actual temperature (Bld) 7.43 Normal 7.35-7.45 [facility] Comment on above: Order Comment: Speci men Type: ARTERIAL BLOOD SPECIMENOrdering Facility: [facility] Address: [address] [place] [address] Performed By: #### A LLBG ####[facility] LABCLIA [id number] [place] [address] [place] Potassium [Moles/Vol] 3.7 mmol/L Normal 3.5-5.0 [facility] Comment on above: Order Comment: Speci men Type: ARTERIAL BLOOD SPECIMENOrdering Facility: [facility] Address: [address] [place] [address] Performed By: #### A LLBG ####[facility] LABIA [id number] [place] [address] [place] Sodium [Moles/Vol] 133 mmol/L Low 136-144 [facility] Comment on above: Order Comment: Speci men Type: ARTERIAL BLOOD SPECIMENOrdering Facility: [facility] Address: [address] [place] [address] Performed By: #### A LLBG ####[facility] LABIA [id number] [place] [address] [place] Base excess Calc (Bld) [Moles/Vol] 2 mmol/L Normal 0-2 [facility] Comment on above: Order Comment: Speci men Type: ARTERIAL BLOOD SPECIMENOrdering Facility: [facility] Address: [address] [place] [address] Performed By: #### A LLBG ####[facility] LABCLIA [id number] [place] [address] [place] Calcium.ionized (Bld) [Mass/Vol] 1.00 mmol/L Low 1.08-1.30 [facility] Comment on above: Order Comment: Speci men Type: ARTERIAL BLOOD SPECIMENOrdering Facility: [facility] Address: [address] [place] [address] Performed By: #### A LLBG ####[facility] LABCLIA [id number] [place] [address] [place] Calcium.ionized adjusted to pH 7.4 (BldA) [Moles/Vol] 1.03 mmol/L Low 1.08-1.30 [facility] Comment on above: Order Comment: Speci men Type: ARTERIAL BLOOD SPECIMENOrdering Facility: [facility] Address: [address] [place] [address] Performed By: #### A LLBG ####[facility] LABIA [id number] [place] [address] [place] Carboxyhemoglobin (BldA) [Mass fraction] 1.8 % Normal 0.0-2.0 [facility] Comment on above: Order Comment: Speci men Type: ARTERIAL BLOOD SPECIMENOrdering Facility: [facility] Address: [address] [place] [address] Result Comment: Carb oxyhemoglobin Reference Range for Smokers: 2.0-8.0% Performed By: #### A LLBG ####[facility] LABCLIA [id number] [place] [address] [place] CO2 (Bld) [Partial pressure] 35 mm Hg Low 36-46 [facility] Comment on above: Order Comment: Speci men Type: ARTERIAL BLOOD SPECIMENOrdering Facility: [facility] Address: [address] [place] [address] Performed By: #### A LLBG ####[facility] LABCLIA [id number] [place] [address] [place] CO2 adjusted to patient's actual temperature (Bld) [Partial pressure] 35 mmHg Low 36-46 [facility] Comment on above: Order Comment: Speci men Type: ARTERIAL BLOOD SPECIMENOrdering Facility: [facility] Address: [address] [place] [address] Performed By: #### A LLBG ####[facility] LABCLIA [id number] [address] [place] [address] [place] Glucose [Mass/Vol] 192 mg/dL High 60-105 [facility] Comment on above: Order Comment: Speci men Type: ARTERIAL BLOOD SPECIMENOrdering Facility: [facility] Address: [address] [place] [address] Performed By: #### A LLBG ####[facility] LABCLIA [id number] [address], [facility]95 [place] HCO3 (Bld) [Moles/Vol] 25 mmol/L Normal 22-26 [facility] Comment on above: Order Comment: Speci men Type: ARTERIAL BLOOD SPECIMENOrdering Facility: [facility] Address: [address] [place] [address] Performed By: #### A LLBG ####[facility] LABCLIA [id number] [place] [address] [place] Hematocrit (Bld) [Volume fraction] 28.7 % Low 36.0-46.0 [facility] Comment on above: Order Comment: Speci men Type: ARTERIAL BLOOD SPECIMENOrdering Facility: [facility] Address: [address] [place] [address] Performed By: #### A LLBG ####[facility] LABCLIA [id number] [address], [facility]95 [place] Hemoglobin (Bld) [Mass/Vol] 9.3 g/dL Low 11.5-15.5 [facility] Comment on above: Order Comment: Speci men Type: ARTERIAL BLOOD SPECIMENOrdering Facility: [facility] Address: [address] [place] [address] Performed By: #### A LLBG ####[facility] LABCLIA [id number] [address] [place] [address] [place] Lactate [Moles/Vol] 1.2 mmol/L Normal 0.5-2.2 [facility] Comment on above: Order Comment: Speci men Type: ARTERIAL BLOOD SPECIMENOrdering Facility: [facility] Address: [address] [place] [address] Performed By: #### A LLBG ####[facility] LABCLIA [id number] [address] [address] [place] Methemoglobin (Bld) [Mass fraction] 1.1 % Normal 0.0-1.5 [facility] Comment on above: Order Comment: Speci men Type: ARTERIAL BLOOD SPECIMENOrdering Facility: [facility] Address: [address] [place] [id number] Performed By: #### A LLBG ####[facility] LABCLIA [id number] [address] [address] [place] Oxygen (Bld) [Partial pressure] 330 mm Hg High 85-95 [facility] Comment on above: Order Comment: Speci men Type: ARTERIAL BLOOD SPECIMENOrdering Facility: [facility] Address: [address] [place] [address] Performed By: #### A LLBG ####[facility] LABCLIA [id number] [place] [id number] [place] Oxygen adjusted to patient's actual temperature (Bld) [Partial pressure] 330 mmHg High 85-95 [facility] Comment on above: Order Comment: Speci men Type: ARTERIAL BLOOD SPECIMENOrdering Facility: [facility] Address: [address] [place] [id number] Performed By: #### A LLBG ####[facility] LABCLIA [id number] [address] [place] [address] [place] Oxyhemoglobin (BldA) [Mass fraction] 97 % Normal 95-98 [facility] Comment on above: Order Comment: Speci men Type: ARTERIAL BLOOD SPECIMENOrdering Facility: [facility] Address: [address] [place] [id number] Performed By: #### A LLBG ####[facility] LABCLIA [id number] [address] [address] [place] pH (Bld) 7.47 [pH] High 7.35-7.45 [facility] Comment on above: Order Comment: Speci men Type: ARTERIAL BLOOD SPECIMENOrdering Facility: [facility] Address: [address] [place] [address] Performed By: #### A LLBG ####[facility] LABIA [id number] [place] [address] [place] pH adjusted to patient's actual temperature (Bld) 7.47 High 7.35-7.45 [facility] Comment on above: Order Comment: Speci men Type: ARTERIAL BLOOD SPECIMENOrdering Facility: [facility] Address: [address] [place] [address] Performed By: #### A LLBG ####[facility] LABIA [id number] [place] [address] [place] Potassium [Moles/Vol] 3.5 mmol/L Normal 3.5-5.0 [facility] Comment on above: Order Comment: Speci men Type: ARTERIAL BLOOD SPECIMENOrdering Facility: [facility] Address: [address] [place] [address] Performed By: #### A LLBG ####[facility] LABIA [id number] [place] [address] [place] Sodium [Moles/Vol] 135 mmol/L Low 136-144 [facility] Comment on above: Order Comment: Speci men Type: ARTERIAL BLOOD SPECIMENOrdering Facility: [facility] Address: [address] [place] [address] Performed By: #### A LLBG ####[facility] LABCLIA [id number] [place] [id number] [place] Base excess Calc (Bld) [Moles/Vol] 2 mmol/L Normal 0-2 [facility] Comment on above: Order Comment: Speci men Type: ARTERIAL BLOOD SPECIMENOrdering Facility: [facility] Address: [address] [place] [address] Performed By: #### A LLBG ####[facility] [id number] [address] [place] Calcium.ionized (Bld) [Mass/Vol] 1.05 mmol/L Low 1.08-1.30 [facility] Comment on above: Order Comment: Speci men Type: ARTERIAL BLOOD SPECIMENOrdering Facility: [facility] Address: [address] [place] [address] Performed By: #### A LLBG ####[facility] [id number] [address] [place] Calcium.ionized adjusted to pH 7.4 (BldA) [Moles/Vol] 1.08 mmol/L Normal 1.08-1.30 [facility] Comment on above: Order Comment: Speci men Type: ARTERIAL BLOOD SPECIMENOrdering Facility: [facility] Address: [address] [place] [address] Performed By: #### A LLBG ####[facility] [id number] [address] [place] Order Comment: Speci men Type: VENOUS BLOOD SPECIMENOrdering Facility: [facility] Address: [address] [place] [address] Performed By: #### 2 4344-4 ####[facility] [id number] [address] [place] Carboxyhemoglobin (BldA) [Mass fraction] 1.4 % Normal 0.0-2.0 [facility] Comment on above: Order Comment: Speci men Type: ARTERIAL BLOOD SPECIMENOrdering Facility: [facility] Address: [address] [place] [address] Result Comment: Carb oxyhemoglobin Reference Range for Smokers: 2.0-8.0% Performed By: #### A LLBG ####[facility] LABCLIA [id number] [address] [place] [address] [place] CO2 (Bld) [Partial pressure] 39 mm Hg Normal 36-46 [facility] Comment on above: Order Comment: Speci men Type: ARTERIAL BLOOD SPECIMENOrdering Facility: [facility] Address: [address] [place] [address] Performed By: #### A LLBG ####[facility] LABCLIA [id number] [place] [id number] [place] CO2 adjusted to patient's actual temperature (Bld) [Partial pressure] 39 mmHg Normal 36-46 [facility] Comment on above: Order Comment: Speci men Type: ARTERIAL BLOOD SPECIMENOrdering Facility: [facility] Address: [address] [place] [address] Performed By: #### A LLBG ####[facility] LABCLIA [id number] [place] [id number] [place] Glucose [Mass/Vol] 218 mg/dL High 60-105 [facility] Comment on above: Order Comment: Speci men Type: ARTERIAL BLOOD SPECIMENOrdering Facility: [facility] Address: [address] [place] [address] Performed By: #### A LLBG ####[facility] LABCLIA [id number] [place] [id number] [place] HCO3 (Bld) [Moles/Vol] 26 mmol/L Normal 22-26 [facility] Comment on above: Order Comment: Speci men Type: ARTERIAL BLOOD SPECIMENOrdering Facility: [facility] Address: [address] [place] [address] Performed By: #### A LLBG ####[facility] LABCLIA [id number] [address] [address] [place] Hematocrit (Bld) [Volume fraction] 29.7 % Low 36.0-46.0 [facility] Comment on above: Order Comment: Speci men Type: ARTERIAL BLOOD SPECIMENOrdering Facility: [facility] Address: [address] [place] [address] Performed By: #### A LLBG ####[facility] LABCLIA [id number] [address] [address] [place] Hemoglobin (Bld) [Mass/Vol] 9.6 g/dL Low 11.5-15.5 [facility] Comment on above: Order Comment: Speci men Type: ARTERIAL BLOOD SPECIMENOrdering Facility: [facility] Address: [address] [place] [address] Performed By: #### A LLBG ####[facility] LABCLIA [id number] [place] [address] [place] Lactate [Moles/Vol] 1.1 mmol/L Normal 0.5-2.2 [facility] Comment on above: Order Comment: Speci men Type: ARTERIAL BLOOD SPECIMENOrdering Facility: [facility] Address: [address] [place] [address] Performed By: #### A LLBG ####[facility] LABCLIA [id number] [place] [address] [place] Methemoglobin (Bld) [Mass fraction] 1.4 % Normal 0.0-1.5 [facility] Comment on above: Order Comment: Speci men Type: ARTERIAL BLOOD SPECIMENOrdering Facility: [facility] Address: [address] [place] [address] Performed By: #### A LLBG ####[facility] LABCLIA [id number] [place] [id number] [place] Oxygen (Bld) [Partial pressure] 294 mm Hg High 85-95 [facility] Comment on above: Order Comment: Speci men Type: ARTERIAL BLOOD SPECIMENOrdering Facility: [facility] Address: [address] [place] [address] Performed By: #### A LLBG ####[facility] LABCLIA [id number] [place] [id number] [place] Oxygen adjusted to patient's actual temperature (Bld) [Partial pressure] 294 mmHg High 85-95 [facility] Comment on above: Order Comment: Speci men Type: ARTERIAL BLOOD SPECIMENOrdering Facility: [facility] Address: [address] [place] [address] Performed By: #### A LLBG ####[facility] LABCLIA [id number] [place] [id number] [place] Oxyhemoglobin (BldA) [Mass fraction] 97 % Normal 95-98 [facility] Comment on above: Order Comment: Speci men Type: ARTERIAL BLOOD SPECIMENOrdering Facility: [facility] Address: [address] [place] [address] Performed By: #### A LLBG ####[facility] LABIA [id number] [place] [address] [place] pH (Bld) 7.44 [pH] Normal 7.35-7.45 [facility] Comment on above: Order Comment: Speci men Type: ARTERIAL BLOOD SPECIMENOrdering Facility: [facility] Address: [address] [place] [address] Performed By: #### A LLBG ####[facility] LABCLIA [id number] [place] [address] [place] pH adjusted to patient's actual temperature (Bld) 7.44 Normal 7.35-7.45 [facility] Comment on above: Order Comment: Speci men Type: ARTERIAL BLOOD SPECIMENOrdering Facility: [facility] Address: [address] [place] [address] Performed By: #### A LLBG ####[facility] LABCLIA [id number] [place] [id number] [place] Potassium [Moles/Vol] 3.7 mmol/L Normal 3.5-5.0 [facility] Comment on above: Order Comment: Speci men Type: ARTERIAL BLOOD SPECIMENOrdering Facility: [facility] Address: [address] [place] [address] Performed By: #### A LLBG ####[facility] LABIA [id number] [place] [address] [place] Sodium [Moles/Vol] 133 mmol/L Low 136-144 [facility] Comment on above: Order Comment: Speci men Type: ARTERIAL BLOOD SPECIMENOrdering Facility: [facility] Address: [address] [place] [address] Performed By: #### A LLBG ####[facility] LABIA [id number] [place] [address] [place] Base excess Calc (Bld) [Moles/Vol] 3 mmol/L High 0-2 [facility] Comment on above: Order Comment: Speci men Type: ARTERIAL BLOOD SPECIMENOrdering Facility: [facility] Address: [address] [place] [address] Performed By: #### A LLBG ####[facility] [id number] [place] [address] [place] Calcium.ionized (Bld) [Mass/Vol] 1.20 mmol/L Normal 1.08-1.30 [facility] Comment on above: Order Comment: Speci men Type: ARTERIAL BLOOD SPECIMENOrdering Facility: [facility] Address: [address] [place] [address] Performed By: #### A LLBG ####[facility] LABIA [id number] [place] [address] [place] Calcium.ionized adjusted to pH 7.4 (BldA) [Moles/Vol] 1.22 mmol/L Normal 1.08-1.30 [facility] Comment on above: Order Comment: Speci men Type: ARTERIAL BLOOD SPECIMENOrdering Facility: [facility] Address: [address] [place] [address] Performed By: #### A LLBG ####[facility] LABCLIA [id number] [place] [address] [place] Carboxyhemoglobin (BldA) [Mass fraction] 1.0 % Normal 0.0-2.0 [facility] Comment on above: Order Comment: Speci men Type: ARTERIAL BLOOD SPECIMENOrdering Facility: [facility] Address: [address] [place] [address] Result Comment: Carb oxyhemoglobin Reference Range for Smokers: 2.0-8.0% Performed By: #### A LLBG ####[facility] LABCLIA [id number] [place] [address] [place] CO2 (Bld) [Partial pressure] 43 mm Hg Normal 36-46 [facility] Comment on above: Order Comment: Speci men Type: ARTERIAL BLOOD SPECIMENOrdering Facility: [facility] Address: [address] [place] [address] Performed By: #### A LLBG ####[facility] LABIA [id number] [place] [address] [place] CO2 adjusted to patient's actual temperature (Bld) [Partial pressure] 43 mmHg Normal 36-46 [facility] Comment on above: Order Comment: Speci men Type: ARTERIAL BLOOD SPECIMENOrdering Facility: [facility] Address: [address] [place] [address] Performed By: #### A LLBG ####[facility] LABCLIA [id number] [place] [id number] [place] Glucose [Mass/Vol] 126 mg/dL High 60-105 [facility] Comment on above: Order Comment: Speci men Type: ARTERIAL BLOOD SPECIMENOrdering Facility: [facility] Address: [address] [place] [address] Performed By: #### A LLBG ####[facility] LABIA [id number] [place] [id number] [place] HCO3 (Bld) [Moles/Vol] 28 mmol/L High 22-26 [facility] Comment on above: Order Comment: Speci men Type: ARTERIAL BLOOD SPECIMENOrdering Facility: [facility] Address: [address] [place] [address] Performed By: #### A LLBG ####[facility] LABCLIA [id number] [place] [address] [place] Hematocrit (Bld) [Volume fraction] 39.6 % Normal 36.0-46.0 [facility] Comment on above: Order Comment: Speci men Type: ARTERIAL BLOOD SPECIMENOrdering Facility: [facility] Address: [address] [place] [address] Performed By: #### A LLBG ####[facility] LABCLIA [id number] [place] [address] [place] Hemoglobin (Bld) [Mass/Vol] 12.9 g/dL Normal 11.5-15.5 [facility] Comment on above: Order Comment: Speci men Type: ARTERIAL BLOOD SPECIMENOrdering Facility: [facility] Address: [address] [place] [address] Performed By: #### A LLBG ####[facility] LABCLIA [id number] [place] [address] [place] Lactate [Moles/Vol] 0.5 mmol/L Normal 0.5-2.2 [facility] Comment on above: Order Comment: Speci men Type: ARTERIAL BLOOD SPECIMENOrdering Facility: [facility] Address: [address] [place] [address] Performed By: #### A LLBG ####[facility] LABCLIA [id number] [place] [address] [place] Methemoglobin (Bld) [Mass fraction] 0.8 % Normal 0.0-1.5 [facility] Comment on above: Order Comment: Speci men Type: ARTERIAL BLOOD SPECIMENOrdering Facility: [facility] Address: [address] [place] [address] Performed By: #### A LLBG ####[facility] LABCLIA [id number] [address] [address] [place] Oxygen (Bld) [Partial pressure] 144 mm Hg High 85-95 [facility] Comment on above: Order Comment: Speci men Type: ARTERIAL BLOOD SPECIMENOrdering Facility: [facility] Address: [address] [place] [address] Performed By: #### A LLBG ####[facility] LABCLIA [id number] [place] [id number] [place] Oxygen adjusted to patient's actual temperature (Bld) [Partial pressure] 144 mmHg High 85-95 [facility] Comment on above: Order Comment: Speci men Type: ARTERIAL BLOOD SPECIMENOrdering Facility: [facility] Address: [address] [place] [address] Performed By: #### A LLBG ####[facility] LABCLIA [id number] [place] [address] [place] Oxyhemoglobin (BldA) [Mass fraction] 97 % Normal 95-98 [facility] Comment on above: Order Comment: Speci men Type: ARTERIAL BLOOD SPECIMENOrdering Facility: [facility] Address: [address] [place] [address] Performed By: #### A LLBG ####[facility] LABCLIA [id number] [place] [id number] [place] pH (Bld) 7.42 [pH] Normal 7.35-7.45 [facility] Comment on above: Order Comment: Speci men Type: ARTERIAL BLOOD SPECIMENOrdering Facility: [facility] Address: [address] [place], [place] [id number] Performed By: #### A LLBG ####[facility] LABCLIA [id number] [place] [address] [place] pH adjusted to patient's actual temperature (Bld) 7.42 Normal 7.35-7.45 [facility] Comment on above: Order Comment: Speci men Type: ARTERIAL BLOOD SPECIMENOrdering Facility: [facility] Address: [address] [place] [address] Performed By: #### A LLBG ####[facility] LABCLIA [id number] [place] [address] [place] Potassium [Moles/Vol] 3.7 mmol/L Normal 3.5-5.0 [facility] Comment on above: Order Comment: Speci men Type: ARTERIAL BLOOD SPECIMENOrdering Facility: [facility] Address: [address] [place] [address] Performed By: #### A LLBG ####[facility] LABCLIA [id number] [place] [address] [place] Sodium [Moles/Vol] 137 mmol/L Normal 136-144 [facility] Comment on above: Order Comment: Speci men Type: ARTERIAL BLOOD SPECIMENOrdering Facility: [facility] Address: [address] [place] [address] Performed By: #### A LLBG ####[facility] LABCLIA [id number] [place] [id number] [place] Fibrinogen PPP-mCncon 2024 Fibrinogen Coag (PPP) [Mass/Vol] 367 mg/dL Normal 200-400 [facility] Comment on above: Order Comment: Speci men Type: BLOOD SPECIMENOrdering Facility: [facility] Address: [address] [place] [address] Performed By: #### 3 255-7 ####[facility] LABCLIA [id number] [place] [id number] [place] Gas + CO Pnl BldVon 09-05-19 25 Body temperature 98.6 [degF] Normal [facility] Comment on above: Order Comment: Speci men Type: VENOUS BLOOD SPECIMENOrdering Facility: [facility] Address: [address] [place], [place] [address] Performed By: #### 2 4344-4 ####[facility] LABCLIA [id number] [facility] [address] [place] [address] [place] Order Comment: Speci men Type: ARTERIAL BLOOD SPECIMENOrdering Facility: [facility] Address: [address] [place], [place] [id number] Performed By: #### A LLBG ####[facility] LABCLIA [id number] [address] [place] [address] [place] HCO3 (Bld) [Moles/Vol] 27 mmol/L High 22-[address] [facility] Comment on above: Order Comment: Speci men Type: VENOUS BLOOD SPECIMENOrdering Facility: [facility] Address: [address] [place] [address] Performed By: #### 2 4344-4 ####[facility] LABCLIA [id number] [address] [place] [address] [place] Order Comment: Speci men Type: ARTERIAL BLOOD SPECIMENOrdering Facility: [facility] Address: [address] [place] [address] Performed By: #### A LLBG ####[facility] LABCLIA [id number] [address] [place] [address] [place] O2 THERAPY NC = Nasal Cannula Normal [facility] Comment on above: Order Comment: Speci men Type: VENOUS BLOOD SPECIMENOrdering Facility: [facility] Address: [address] [place], [place] [address] Performed By: #### 2 4344-4 ####[facility] LABCLIA [id number] [address] [place] [address] [place] Order Comment: Speci men Type: ARTERIAL BLOOD SPECIMENOrdering Facility: [facility] Address: [address] [place], [place] [address] Performed By: #### A LLBG ####[facility] LABCLIA [id number] [place] [address] [place] Body temperature 98.6 [degF] Normal [facility] Comment on above: Order Comment: Speci men Type: VENOUS BLOOD SPECIMENOrdering Facility: [facility] Address: [address] [place] [address] Performed By: #### 2 4344-4 ####[facility] LABCLIA [id number] [address] [place] Order Comment: Speci men Type: ARTERIAL BLOOD SPECIMENOrdering Facility: [facility] Address: [address] [place] [address] Performed By: #### A LLBG ####[facility] LABCLIA [id number] [place] [address] [place] Calcium.ionized adjusted to pH 7.4 (BldA) [Moles/Vol] 1.12 mmol/L Normal 1.08-1.30 [facility] Comment on above: Order Comment: Speci men Type: VENOUS BLOOD SPECIMENOrdering Facility: [facility] Address: [address] [place] [address] Performed By: #### 2 4344-4 ####[facility] LABCLIA [id number] [address] [place] Order Comment: Speci men Type: ARTERIAL BLOOD SPECIMENOrdering Facility: [facility] Address: [address] [place] [address] Performed By: #### A LLBG ####[facility] LABCLIA [id number] [address] [place] Lactate [Moles/Vol] 1.2 mmol/L Normal 0.5-2.2 [facility] Comment on above: Order Comment: Speci men Type: VENOUS BLOOD SPECIMENOrdering Facility: [facility] Address: [address] [place] [address], [place] [address] Performed By: #### 2 4344-4 ####[facility] LABCLIA [id number] [address] [place] [address] [place] Order Comment: Speci men Type: ARTERIAL BLOOD SPECIMENOrdering Facility: [facility] Address: [address] [place] [address] Performed By: #### A LLBG ####[facility] LABCLIA [id number] [address] [place] [address] [place] O2 THERAPY Positive Normal [facility] Comment on above: Order Comment: Speci men Type: VENOUS BLOOD SPECIMENOrdering Facility: [facility] Address: [address] [place], [place] [address] Performed By: #### 2 4344-4 ####[facility] LABCLIA [id number] [address] [place] [address] [place] Order Comment: Speci men Type: ARTERIAL BLOOD SPECIMENOrdering Facility: [facility] Address: [address] [place], [place] [address] Performed By: #### A LLBG ####[facility] LABCLIA [id number] [address] [place] [address] [place] Potassium [Moles/Vol] 4.7 mmol/L Normal 3.5-5.0 [facility] Comment on above: Order Comment: Speci men Type: VENOUS BLOOD SPECIMENOrdering Facility: [facility] Address: [address] [place] [address] Performed By: #### 2 4344-4 ####[facility] LABCLIA [id number] [address] [place] [address] [place] Order Comment: Speci men Type: ARTERIAL BLOOD SPECIMENOrdering Facility: [facility] Address: [address] [place] [address] Performed By: #### A LLBG ####[facility] LABCLIA [id number] [address] [place] [address] [place] Sodium [Moles/Vol] 135 mmol/L Low 136-144 [facility] Comment on above: Order Comment: Speci men Type: VENOUS BLOOD SPECIMENOrdering Facility: [facility] Address: [address] [place] [id number] Performed By: #### 2 4344-4 ####[facility] LABCLIA [id number] [address] [place] [address] [place] Order Comment: Speci men Type: ARTERIAL BLOOD SPECIMENOrdering Facility: [facility] Address: [address] [place] [address] Performed By: #### A LLBG ####[facility] LABCLIA [id number] [place] [id number] [place] Body temperature 98.6 [degF] Normal [facility] Comment on above: Order Comment: Speci men Type: VENOUS BLOOD SPECIMENOrdering Facility: [facility] Address: [address] [place], [place] [address] Performed By: #### 2 4344-4 ####[facility] LABCLIA [id number] [place] [id number] [place] Order Comment: Speci men Type: ARTERIAL BLOOD SPECIMENOrdering Facility: [facility] Address: [address] [place], [place] [address] Performed By: #### A LLBG ####[facility] LABCLIA [id number] [address] [place] [address] [place] O2 THERAPY VENT=Ventilator Normal [facility] Comment on above: Order Comment: Speci men Type: VENOUS BLOOD SPECIMENOrdering Facility: [facility] Address: [address] [place], [place] [address] Performed By: #### 2 4344-4 ####[facility] LABCLIA [id number] [address] [address] [place] Order Comment: Speci men Type: ARTERIAL BLOOD SPECIMENOrdering Facility: [facility] Address: [address] [place] [address] Performed By: #### A LLBG ####[facility] LABIA [id number] [place] [address] [place] Potassium [Moles/Vol] 3.4 mmol/L Low 3.5-5.0 [facility] Comment on above: Order Comment: Speci men Type: VENOUS BLOOD SPECIMENOrdering Facility: [facility] Address: [address] [place] [address] Performed By: #### 2 4344-4 ####[facility] LABIA [id number] [place] [address] [place] Order Comment: Speci men Type: ARTERIAL BLOOD SPECIMENOrdering Facility: [facility] Address: [address] [place] [address] Performed By: #### A LLBG ####[facility] LABIA [id number] [place] [address] [place] Gas and Carbon monoxide pane l (BldV)on 09-04-2024 Base excess Calc (BldV) [Moles/Vol] 0 mmol/L Normal 0-2 [facility] Comment on above: Order Comment: Speci men Type: VENOUS BLOOD SPECIMENOrdering Facility: [facility] Address: [address] [place] [address] Performed By: #### 2 4344-4 ####[facility] LABCLIA [id number] [place] [address] [place] Calcium.ionized (Bld) [Mass/Vol] 1.17 mmol/L Normal 1.08-1.30 [facility] Comment on above: Order Comment: Speci men Type: VENOUS BLOOD SPECIMENOrdering Facility: [facility] Address: [address] [place] [address] Performed By: #### 2 4344-4 ####[facility] LABCLIA [id number] [place] [address] [place] Calcium.ionized adjusted to pH 7.4 (BldA) [Moles/Vol] 1.11 mmol/L Normal 1.08-1.30 [facility] Comment on above: Order Comment: Speci men Type: VENOUS BLOOD SPECIMENOrdering Facility: [facility] Address: [address] [place] [address] Performed By: #### 2 4344-4 ####[facility] LABIA [id number] [place] [address] [place] Carboxyhemoglobin (BldV) [Mass fraction] 1.4 % Normal 0.0-2.0 [facility] Comment on above: Order Comment: Speci men Type: VENOUS BLOOD SPECIMENOrdering Facility: [facility] Address: [address] [place] [address] Result Comment: Carb oxyhemoglobin Reference Range for Smokers: 2.0-8.0% Performed By: #### 2 4344-4 ####[facility] LABIA [id number] [place] [address] [place] CO2 (BldV) [Partial pressure] 55 mm[Hg] Normal 42-55 [facility] Comment on above: Order Comment: Speci men Type: VENOUS BLOOD SPECIMENOrdering Facility: [facility] Address: [address] [place] [address] Performed By: #### 2 4344-4 ####[facility] LABIA [id number] [place] [address] [place] Glucose [Mass/Vol] 133 mg/dL High 60-105 [facility] Comment on above: Order Comment: Speci men Type: VENOUS BLOOD SPECIMENOrdering Facility: [facility] Address: [address] [place] [address] Performed By: #### 2 4344-4 ####[facility] LABIA [id number] [place] [id number] [place] Hematocrit (Bld) [Volume fraction] 31.8 % Low 36.0-46.0 [facility] Comment on above: Order Comment: Speci men Type: VENOUS BLOOD SPECIMENOrdering Facility: [facility] Address: [address] [place] [address] Performed By: #### 2 4344-4 ####[facility] LABCLIA [id number] [place] [address] [place] Hemoglobin (Bld) [Mass/Vol] 10.3 g/dL Low 11.5-15.5 [facility] Comment on above: Order Comment: Speci men Type: VENOUS BLOOD SPECIMENOrdering Facility: [facility] Address: [address] [place] [address] Performed By: #### 2 4344-4 ####[facility] LABCLIA [id number] [place] [address] [place] Lactate [Moles/Vol] 1.4 mmol/L Normal 0.5-2.2 [facility] Comment on above: Order Comment: Speci men Type: VENOUS BLOOD SPECIMENOrdering Facility: [facility] Address: [address] [place] [address] Performed By: #### 2 4344-4 ####[facility] LABCLIA [id number] [place] [address] [place] Methemoglobin (Bld) [Mass fraction] 1.6 % High 0.0-1.5 [facility] Comment on above: Order Comment: Speci men Type: VENOUS BLOOD SPECIMENOrdering Facility: [facility] Address: [address] [place] [address] Performed By: #### 2 4344-4 ####[facility] LABCLIA [id number] [place] [id number] [place] Oxygen (BldV) [Partial pressure] 44 mm[Hg] Normal 35-45 [facility] Comment on above: Order Comment: Speci men Type: VENOUS BLOOD SPECIMENOrdering Facility: [facility] Address: [address] [place] [address] Performed By: #### 2 4344-4 ####[facility] LABCLIA [id number] [address] [address] [place] Oxygen saturation in Venous blood 70 % Normal 60-85 [facility] Comment on above: Order Comment: Speci men Type: VENOUS BLOOD SPECIMENOrdering Facility: [facility] Address: [address] [place], [place] [address] Performed By: #### 2 4344-4 ####[facility] LABCLIA [id number] [address] [address] [place] Oxyhemoglobin (BldV) [Mass fraction] 68 % Normal 60-85 [facility] Comment on above: Order Comment: Speci men Type: VENOUS BLOOD SPECIMENOrdering Facility: [facility] Address: [address] [place], [place] [address] Performed By: #### 2 4344-4 ####[facility] LABIA [id number] [address] [address] [place] pH (BldV) 7.31 [pH] Low 7.32-7.42 [facility] Comment on above: Order Comment: Speci men Type: VENOUS BLOOD SPECIMENOrdering Facility: [facility] Address: [address] [place], [place] [address] Performed By: #### 2 4344-4 ####[facility] LABCLIA [id number] [address] [address] [place] Potassium [Moles/Vol] 4.5 mmol/L Normal 3.5-5.0 [facility] Comment on above: Order Comment: Speci men Type: VENOUS BLOOD SPECIMENOrdering Facility: [facility] Address: [address] [place] [address] Performed By: #### 2 4344-4 ####[facility] LABCLIA [id number] [place] [address] [place] Sodium [Moles/Vol] 138 mmol/L Normal 136-144 [facility] Comment on above: Order Comment: Speci men Type: VENOUS BLOOD SPECIMENOrdering Facility: [facility] Address: [address] [place] [address] Performed By: #### 2 4344-4 ####[facility] LABIA [id number] [place] [address] [place] Base excess Calc (BldV) [Moles/Vol] 0 mmol/L Normal 0-2 [facility] Comment on above: Order Comment: Speci men Type: VENOUS BLOOD SPECIMENOrdering Facility: [facility] Address: [address] [place] [address] Performed By: #### 2 4344-4 ####[facility] LABIA [id number] [place] [address] [place] Calcium.ionized (Bld) [Mass/Vol] 1.14 mmol/L Normal 1.08-1.30 [facility] Comment on above: Order Comment: Speci men Type: VENOUS BLOOD SPECIMENOrdering Facility: [facility] Address: [address] [place] [address] Performed By: #### 2 4344-4 ####[facility] LABIA [id number] [place] [address] [place] Calcium.ionized adjusted to pH 7.4 (BldA) [Moles/Vol] 1.10 mmol/L Normal 1.08-1.30 [facility] Comment on above: Order Comment: Speci men Type: VENOUS BLOOD SPECIMENOrdering Facility: [facility] Address: [address] [place] [address] Performed By: #### 2 4344-4 ####[facility] LABIA [id number] [place] [address] [place] Carboxyhemoglobin (BldV) [Mass fraction] 1.6 % Normal 0.0-2.0 [facility] Comment on above: Order Comment: Speci men Type: VENOUS BLOOD SPECIMENOrdering Facility: [facility] Address: [address] [place] [address] Result Comment: Carb oxyhemoglobin Reference Range for Smokers: 2.0-8.0% Performed By: #### 2 4344-4 ####[facility] LABCLIA [id number] [place] [address] [place] CO2 (BldV) [Partial pressure] 51 mm[Hg] Normal 42-55 [facility] Comment on above: Order Comment: Speci men Type: VENOUS BLOOD SPECIMENOrdering Facility: [facility] Address: [address] [place] [address] Performed By: #### 2 4344-4 ####[facility] LABCLIA [id number] [place] [address] [place] Glucose [Mass/Vol] 165 mg/dL High 60-105 [facility] Comment on above: Order Comment: Speci men Type: VENOUS BLOOD SPECIMENOrdering Facility: [facility] Address: [address] [place] [address] Performed By: #### 2 4344-4 ####[facility] LABCLIA [id number] [place] [address] [place] Hematocrit (Bld) [Volume fraction] 31.4 % Low 36.0-46.0 [facility] Comment on above: Order Comment: Speci men Type: VENOUS BLOOD SPECIMENOrdering Facility: [facility] Address: [address] [place] [address] Performed By: #### 2 4344-4 ####[facility] LABCLIA [id number] [place] [address] [place] Hemoglobin (Bld) [Mass/Vol] 10.2 g/dL Low 11.5-15.5 [facility] Comment on above: Order Comment: Speci men Type: VENOUS BLOOD SPECIMENOrdering Facility: [facility] Address: [address] [place] [id number] Performed By: #### 2 4344-4 ####[facility] LABCLIA [id number] [address] [address] [place] Lactate [Moles/Vol] 1.5 mmol/L Normal 0.5-2.2 [facility] Comment on above: Order Comment: Speci men Type: VENOUS BLOOD SPECIMENOrdering Facility: [facility] Address: [address] [place], [place] [address] Performed By: #### 2 4344-4 ####[facility] LABCLIA [id number] [place] [id number] [place] Methemoglobin (Bld) [Mass fraction] 1.8 % High 0.0-1.5 [facility] Comment on above: Order Comment: Speci men Type: VENOUS BLOOD SPECIMENOrdering Facility: [facility] Address: [address] [place] [address] Performed By: #### 2 4344-4 ####[facility] LABCLIA [id number] [place] [id number] [place] Oxygen (BldV) [Partial pressure] 43 mm[Hg] Normal 35-45 [facility] Comment on above: Order Comment: Speci men Type: VENOUS BLOOD SPECIMENOrdering Facility: [facility] Address: [address] [place], [place] [address] Performed By: #### 2 4344-4 ####[facility] LABCLIA [id number] [address] [address] [place] Oxygen saturation in Venous blood 69 % Normal 60-85 [facility] Comment on above: Order Comment: Speci men Type: VENOUS BLOOD SPECIMENOrdering Facility: [facility] Address: [address] [place], [place] [address] Performed By: #### 2 4344-4 ####[facility] LABCLIA [id number] [address] [address] [place] Oxyhemoglobin (BldV) [Mass fraction] 66 % Normal 60-85 [facility] Comment on above: Order Comment: Speci men Type: VENOUS BLOOD SPECIMENOrdering Facility: [facility] Address: [address] [place] [address] Performed By: #### 2 4344-4 ####[facility] LABIA [id number] [place] [id number] [place] pH (BldV) 7.32 [pH] Normal 7.32-7.42 [facility] Comment on above: Order Comment: Speci men Type: VENOUS BLOOD SPECIMENOrdering Facility: [facility] Address: [address] [place] [address] Performed By: #### 2 4344-4 ####[facility] LABIA [id number] [place] [address] [place] Potassium [Moles/Vol] 4.2 mmol/L Normal 3.5-5.0 [facility] Comment on above: Order Comment: Speci men Type: VENOUS BLOOD SPECIMENOrdering Facility: [facility] Address: [address] [place] [address] Performed By: #### 2 4344-4 ####[facility] LABIA [id number] [place] [id number] [place] Sodium [Moles/Vol] 137 mmol/L Normal 136-144 [facility] Comment on above: Order Comment: Speci men Type: VENOUS BLOOD SPECIMENOrdering Facility: [facility] Address: [address] [place], [place] [address] Performed By: #### 2 4344-4 ####[facility] LABIA [id number] [address] [address] [place] Base excess Calc (BldV) [Moles/Vol] 0 mmol/L Normal 0-2 [facility] Comment on above: Order Comment: Speci men Type: VENOUS BLOOD SPECIMENOrdering Facility: [facility] Address: [address] [place] [address] Performed By: #### 2 4344-4 ####[facility] LABIA [id number] [place] [address] [place] Calcium.ionized (Bld) [Mass/Vol] 1.13 mmol/L Normal 1.08-1.30 [facility] Comment on above: Order Comment: Speci men Type: VENOUS BLOOD SPECIMENOrdering Facility: [facility] Address: [address] [place] [address] Performed By: #### 2 4344-4 ####[facility] LABIA [id number] [place] [address] [place] Calcium.ionized adjusted to pH 7.4 (BldA) [Moles/Vol] 1.10 mmol/L Normal 1.08-1.30 [facility] Comment on above: Order Comment: Speci men Type: VENOUS BLOOD SPECIMENOrdering Facility: [facility] Address: [address] [place] [address] Performed By: #### 2 4344-4 ####[facility] [id number] [place] [address] [place] Carboxyhemoglobin (BldV) [Mass fraction] 1.2 % Normal 0.0-2.0 [facility] Comment on above: Order Comment: Speci men Type: VENOUS BLOOD SPECIMENOrdering Facility: [facility] Address: [address] [place] [address] Result Comment: Carb oxyhemoglobin Reference Range for Smokers: 2.0-8.0% Performed By: #### 2 4344-4 ####[facility] LABIA [id number] [place] [address] [place] CO2 (BldV) [Partial pressure] 49 mm[Hg] Normal 42-55 [facility] Comment on above: Order Comment: Speci men Type: VENOUS BLOOD SPECIMENOrdering Facility: [facility] Address: [address] [place] [address] Performed By: #### 2 4344-4 ####[facility] LABCLIA [id number] [place] [id number] [place] Glucose [Mass/Vol] 214 mg/dL High 60-105 [facility] Comment on above: Order Comment: Speci men Type: VENOUS BLOOD SPECIMENOrdering Facility: [facility] Address: [address] [place] [address] Performed By: #### 2 4344-4 ####[facility] LABCLIA [id number] [place] [address] [place] HCO3 (Bld) [Moles/Vol] 26 mmol/L Normal 24-28 [facility] Comment on above: Order Comment: Speci men Type: VENOUS BLOOD SPECIMENOrdering Facility: [facility] Address: [address] [place] [address] Performed By: #### 2 4344-4 ####[facility] LABCLIA [id number] [place] [address] [place] Hematocrit (Bld) [Volume fraction] 32.7 % Low 36.0-46.0 [facility] Comment on above: Order Comment: Speci men Type: VENOUS BLOOD SPECIMENOrdering Facility: [facility] Address: [address] [place] [address] Performed By: #### 2 4344-4 ####[facility] LABCLIA [id number] [address] [address] [place] Hemoglobin (Bld) [Mass/Vol] 10.6 g/dL Low 11.5-15.5 [facility] Comment on above: Order Comment: Speci men Type: VENOUS BLOOD SPECIMENOrdering Facility: [facility] Address: [address] [place], [place] [address] Performed By: #### 2 4344-4 ####[facility] LABCLIA [id number] [address] [address] [place] Lactate [Moles/Vol] 1.3 mmol/L Normal 0.5-2.2 [facility] Comment on above: Order Comment: Speci men Type: VENOUS BLOOD SPECIMENOrdering Facility: [facility] Address: [address] [place] [address] Performed By: #### 2 4344-4 ####[facility] LABCLIA [id number] [place] [id number] [place] Methemoglobin (Bld) [Mass fraction] 1.2 % Normal 0.0-1.5 [facility] Comment on above: Order Comment: Speci men Type: VENOUS BLOOD SPECIMENOrdering Facility: [facility] Address: [address] [place] [address] Performed By: #### 2 4344-4 ####[facility] LABIA [id number] [place] [id number] [place] Oxygen (BldV) [Partial pressure] 42 mm[Hg] Normal 35-45 [facility] Comment on above: Order Comment: Speci men Type: VENOUS BLOOD SPECIMENOrdering Facility: [facility] Address: [address] [place] [address] Performed By: #### 2 4344-4 ####[facility] LABIA [id number] [place] [id number] [place] Oxygen saturation in Venous blood 68 % Normal 60-85 [facility] Comment on above: Order Comment: Speci men Type: VENOUS BLOOD SPECIMENOrdering Facility: [facility] Address: [address] [place], [place] [address] Performed By: #### 2 4344-4 ####[facility] LABCLIA [id number] [address] [address] [place] Oxyhemoglobin (BldV) [Mass fraction] 66 % Normal 60-85 [facility] Comment on above: Order Comment: Speci men Type: VENOUS BLOOD SPECIMENOrdering Facility: [facility] Address: [address] [place] [address] Performed By: #### 2 4344-4 ####[facility] [id number] [place] [address] [place] pH (BldV) 7.34 [pH] Normal 7.32-7.42 [facility] Comment on above: Order Comment: Speci men Type: VENOUS BLOOD SPECIMENOrdering Facility: [facility] Address: [address] [place] [address] Performed By: #### 2 4344-4 ####[facility] LABIA [id number] [place] [address] [place] Potassium [Moles/Vol] 4.5 mmol/L Normal 3.5-5.0 [facility] Comment on above: Order Comment: Speci men Type: VENOUS BLOOD SPECIMENOrdering Facility: [facility] Address: [address] [place] [address] Performed By: #### 2 4344-4 ####[facility] LABIA [id number] [place] [address] [place] Base excess Calc (BldV) [Moles/Vol] 1 mmol/L Normal 0-2 [facility] Comment on above: Order Comment: Speci men Type: VENOUS BLOOD SPECIMENOrdering Facility: [facility] Address: [address] [place] [address] Performed By: #### 2 4344-4 ####[facility] LABIA [id number] [place] [id number] [place] Calcium.ionized (Bld) [Mass/Vol] 1.17 mmol/L Normal 1.08-1.30 [facility] Comment on above: Order Comment: Speci men Type: VENOUS BLOOD SPECIMENOrdering Facility: [facility] Address: [address] [place] [address] Performed By: #### 2 4344-4 ####[facility] LABCLIA [id number] [address] [address] [place] Carboxyhemoglobin (BldV) [Mass fraction] 1.1 % Normal 0.0-2.0 [facility] Comment on above: Order Comment: Speci men Type: VENOUS BLOOD SPECIMENOrdering Facility: [facility] Address: [address] [place] [address] Result Comment: Carb oxyhemoglobin Reference Range for Smokers: 2.0-8.0% Performed By: #### 2 4344-4 ####[facility] LABCLIA [id number] [place] [address] [place] CO2 (BldV) [Partial pressure] 54 mm[Hg] Normal 42-55 [facility] Comment on above: Order Comment: Speci men Type: VENOUS BLOOD SPECIMENOrdering Facility: [facility] Address: [address] [place] [address] Performed By: #### 2 4344-4 ####[facility] LABCLIA [id number] [place] [id number] [place] Glucose [Mass/Vol] 192 mg/dL High 60-105 [facility] Comment on above: Order Comment: Speci men Type: VENOUS BLOOD SPECIMENOrdering Facility: [facility] Address: [address] [place] [address] Performed By: #### 2 4344-4 ####[facility] LABCLIA [id number] [address] [address] [place] HCO3 (Bld) [Moles/Vol] 27 mmol/L Normal 24-28 [facility] Comment on above: Order Comment: Speci men Type: VENOUS BLOOD SPECIMENOrdering Facility: [facility] Address: [address] [place] [address] Performed By: #### 2 4344-4 ####[facility] LABCLIA [id number] [address] [address] [place] Hematocrit (Bld) [Volume fraction] 35.6 % Low 36.0-46.0 [facility] Comment on above: Order Comment: Speci men Type: VENOUS BLOOD SPECIMENOrdering Facility: [facility] Address: [address] [place] [address] Performed By: #### 2 4344-4 ####[facility] LABCLIA [id number] [place] [id number] [place] Hemoglobin (Bld) [Mass/Vol] 11.6 g/dL Normal 11.5-15.5 [facility] Comment on above: Order Comment: Speci men Type: VENOUS BLOOD SPECIMENOrdering Facility: [facility] Address: [address] [place] [address] Performed By: #### 2 4344-4 ####[facility] LABCLIA [id number] [place] [address] [place] Methemoglobin (Bld) [Mass fraction] 1.1 % Normal 0.0-1.5 [facility] Comment on above: Order Comment: Speci men Type: VENOUS BLOOD SPECIMENOrdering Facility: [facility] Address: [address] [place] [address] Performed By: #### 2 4344-4 ####[facility] LABCLIA [id number] [place] [id number] [place] Oxygen (BldV) [Partial pressure] 36 mm[Hg] Normal 35-45 [facility] Comment on above: Order Comment: Speci men Type: VENOUS BLOOD SPECIMENOrdering Facility: [facility] Address: [address] [place], [place] [address] Performed By: #### 2 4344-4 ####[facility] LABCLIA [id number] [place] [id number] [place] Oxygen saturation in Venous blood 55 % Low 60-85 [facility] Comment on above: Order Comment: Speci men Type: VENOUS BLOOD SPECIMENOrdering Facility: [facility] Address: [address] [place] [address] Performed By: #### 2 4344-4 ####[facility] LABCLIA [id number] [place] [address] [place] Oxyhemoglobin (BldV) [Mass fraction] 54 % Low 60-85 [facility] Comment on above: Order Comment: Speci men Type: VENOUS BLOOD SPECIMENOrdering Facility: [facility] Address: [address] [place] [address] Performed By: #### 2 4344-4 ####[facility] LABIA [id number] [place] [address] [place] pH (BldV) 7.32 [pH] Normal 7.32-7.42 [facility] Comment on above: Order Comment: Speci men Type: VENOUS BLOOD SPECIMENOrdering Facility: [facility] Address: [address] [place] [address] Performed By: #### 2 4344-4 ####[facility] LABIA [id number] [place] [address] [place] Base excess Calc (BldV) [Moles/Vol] 1 mmol/L Normal 0-2 [facility] Comment on above: Order Comment: Speci men Type: VENOUS BLOOD SPECIMENOrdering Facility: [facility] Address: [address] [place] [address] Performed By: #### 2 4344-4 ####[facility] LABCLIA [id number] [place] [address] [place] Calcium.ionized (Bld) [Mass/Vol] 1.19 mmol/L Normal 1.08-1.30 [facility] Comment on above: Order Comment: Speci men Type: VENOUS BLOOD SPECIMENOrdering Facility: [facility] Address: [address] [place] [address] Performed By: #### 2 4344-4 ####[facility] LABCLIA [id number] [place] [address] [place] Calcium.ionized adjusted to pH 7.4 (BldA) [Moles/Vol] 1.13 mmol/L Normal 1.08-1.30 [facility] Comment on above: Order Comment: Speci men Type: VENOUS BLOOD SPECIMENOrdering Facility: [facility] Address: [address] [place] [address] Performed By: #### 2 4344-4 ####[facility] LABIA [id number] [place] [address] [place] Carboxyhemoglobin (BldV) [Mass fraction] 1.2 % Normal 0.0-2.0 [facility] Comment on above: Order Comment: Speci men Type: VENOUS BLOOD SPECIMENOrdering Facility: [facility] Address: [address] [place] [address] Result Comment: Carb oxyhemoglobin Reference Range for Smokers: 2.0-8.0% Performed By: #### 2 4344-4 ####[facility] LABIA [id number] [place] [address] [place] CO2 (BldV) [Partial pressure] 59 mm[Hg] High 42-55 [facility] Comment on above: Order Comment: Speci men Type: VENOUS BLOOD SPECIMENOrdering Facility: [facility] Address: [address] [place] [address] Performed By: #### 2 4344-4 ####[facility] LABCLIA [id number] [place] [id number] [place] Glucose [Mass/Vol] 114 mg/dL High 60-105 [facility] Comment on above: Order Comment: Speci men Type: VENOUS BLOOD SPECIMENOrdering Facility: [facility] Address: [address] [place] [address] Performed By: #### 2 4344-4 ####[facility] LABIA [id number] [place] [id number] [place] HCO3 (Bld) [Moles/Vol] 28 mmol/L Normal 24-28 [facility] Comment on above: Order Comment: Speci men Type: VENOUS BLOOD SPECIMENOrdering Facility: [facility] Address: [address] [place] [address] Performed By: #### 2 4344-4 ####[facility] LABCLIA [id number] [place] [address] [place] Hematocrit (Bld) [Volume fraction] 35.0 % Low 36.0-46.0 [facility] Comment on above: Order Comment: Speci men Type: VENOUS BLOOD SPECIMENOrdering Facility: [facility] Address: [address] [place] [address] Performed By: #### 2 4344-4 ####[facility] LABIA [id number] [place] [address] [place] Hemoglobin (Bld) [Mass/Vol] 11.4 g/dL Low 11.5-15.5 [facility] Comment on above: Order Comment: Speci men Type: VENOUS BLOOD SPECIMENOrdering Facility: [facility] Address: [address] [place] [address] Performed By: #### 2 4344-4 ####[facility] LABIA [id number] [place] [address] [place] Lactate [Moles/Vol] 1.8 mmol/L Normal 0.5-2.2 [facility] Comment on above: Order Comment: Speci men Type: VENOUS BLOOD SPECIMENOrdering Facility: [facility] Address: [address] [place] [address] Performed By: #### 2 4344-4 ####[facility] LABCLIA [id number] [place] [address] [place] Methemoglobin (Bld) [Mass fraction] 1.6 % High 0.0-1.5 [facility] Comment on above: Order Comment: Speci men Type: VENOUS BLOOD SPECIMENOrdering Facility: [facility] Address: [address] [place] [address] Performed By: #### 2 4344-4 ####[facility] LABCLIA [id number] [address] [address] [place] Oxygen (BldV) [Partial pressure] 40 mm[Hg] Normal 35-45 [facility] Comment on above: Order Comment: Speci men Type: VENOUS BLOOD SPECIMENOrdering Facility: [facility] Address: [address] [place], [place] [address] Performed By: #### 2 4344-4 ####[facility] LABCLIA [id number] [address] [address] [place] Oxygen saturation in Venous blood 61 % Normal 60-85 [facility] Comment on above: Order Comment: Speci men Type: VENOUS BLOOD SPECIMENOrdering Facility: [facility] Address: [address] [place] [address] Performed By: #### 2 4344-4 ####[facility] LABCLIA [id number] [address] [address] [place] Oxyhemoglobin (BldV) [Mass fraction] 59 % Low 60-85 [facility] Comment on above: Order Comment: Speci men Type: VENOUS BLOOD SPECIMENOrdering Facility: [facility] Address: [address] [place] [id number] Performed By: #### 2 4344-4 ####[facility] LABCLIA [id number] [address] [address] [place] pH (BldV) 7.29 [pH] Low 7.32-7.42 [facility] Comment on above: Order Comment: Speci men Type: VENOUS BLOOD SPECIMENOrdering Facility: [facility] Address: [address] [place], [place] [address] Performed By: #### 2 4344-4 ####[facility] LABCLIA [id number] [place] [address] [place] Sodium [Moles/Vol] 137 mmol/L Normal 136-144 [facility] Comment on above: Order Comment: Speci men Type: VENOUS BLOOD SPECIMENOrdering Facility: [facility] Address: [address] [place] [address] Performed By: #### 2 4344-4 ####[facility] LABIA [id number] [place] [address] [place] Base excess Calc (BldV) [Moles/Vol] 3 mmol/L High 0-2 [facility] Comment on above: Order Comment: Speci men Type: VENOUS BLOOD SPECIMENOrdering Facility: [facility] Address: [address] [place] [address] Performed By: #### 2 4344-4 ####[facility] LABIA [id number] [place] [address] [place] Calcium.ionized (Bld) [Mass/Vol] 1.08 mmol/L Normal 1.08-1.30 [facility] Comment on above: Order Comment: Speci men Type: VENOUS BLOOD SPECIMENOrdering Facility: [facility] Address: [address] [place] [address] Performed By: #### 2 4344-4 ####[facility] LABIA [id number] [place] [address] [place] Carboxyhemoglobin (BldV) [Mass fraction] 1.8 % Normal 0.0-2.0 [facility] Comment on above: Order Comment: Speci men Type: VENOUS BLOOD SPECIMENOrdering Facility: [facility] Address: [address] [place] [address] Result Comment: Carb oxyhemoglobin Reference Range for Smokers: 2.0-8.0% Performed By: #### 2 4344-4 ####[facility] LABCLIA [id number] [place] [address] [place] CO2 (BldV) [Partial pressure] 46 mm[Hg] Normal 42-55 [facility] Comment on above: Order Comment: Speci men Type: VENOUS BLOOD SPECIMENOrdering Facility: [facility] Address: [address] [place] [address] Performed By: #### 2 4344-4 ####[facility] LABCLIA [id number] [address] [address] [place] CO2 adjusted to patient's actual temperature (BldV) [Partial pressure] 46 mmHg Normal 42-55 [facility] Comment on above: Order Comment: Speci men Type: VENOUS BLOOD SPECIMENOrdering Facility: [facility] Address: [address] [place] [address] Performed By: #### 2 4344-4 ####[facility] LABCLIA [id number] [place] [id number] [place] Glucose [Mass/Vol] 201 mg/dL High 60-105 [facility] Comment on above: Order Comment: Speci men Type: VENOUS BLOOD SPECIMENOrdering Facility: [facility] Address: [address] [place] [address] Performed By: #### 2 4344-4 ####[facility] LABCLIA [id number] [place] [id number] [place] HCO3 (Bld) [Moles/Vol] 27 mmol/L Normal 24-28 [facility] Comment on above: Order Comment: Speci men Type: VENOUS BLOOD SPECIMENOrdering Facility: [facility] Address: [address] [place], [place] [address] Performed By: #### 2 4344-4 ####[facility] LABCLIA [id number] [place] [id number] [place] Hematocrit (Bld) [Volume fraction] 29.9 % Low 36.0-46.0 [facility] Comment on above: Order Comment: Speci men Type: VENOUS BLOOD SPECIMENOrdering Facility: [facility] Address: [address] [place], [place] [address] Performed By: #### 2 4344-4 ####[facility] LABCLIA [id number] [place] [address] [place] Hemoglobin (Bld) [Mass/Vol] 9.7 g/dL Low 11.5-15.5 [facility] Comment on above: Order Comment: Speci men Type: VENOUS BLOOD SPECIMENOrdering Facility: [facility] Address: [address] [place] [address] Performed By: #### 2 4344-4 ####[facility] LABCLIA [id number] [place] [address] [place] Lactate [Moles/Vol] 1.5 mmol/L Normal 0.5-2.2 [facility] Comment on above: Order Comment: Speci men Type: VENOUS BLOOD SPECIMENOrdering Facility: [facility] Address: [address] [place] [address] Performed By: #### 2 4344-4 ####[facility] LABIA [id number] [place] [address] [place] Methemoglobin (Bld) [Mass fraction] 1.0 % Normal 0.0-1.5 [facility] Comment on above: Order Comment: Speci men Type: VENOUS BLOOD SPECIMENOrdering Facility: [facility] Address: [address] [place] [address] Performed By: #### 2 4344-4 ####[facility] LABCLIA [id number] [place] [id number] [place] Oxygen (BldV) [Partial pressure] 43 mm[Hg] Normal 35-45 [facility] Comment on above: Order Comment: Speci men Type: VENOUS BLOOD SPECIMENOrdering Facility: [facility] Address: [address] [place], [place] [address] Performed By: #### 2 4344-4 ####[facility] LABCLIA [id number] [address] [address] [place] Oxygen adjusted to patient's actual temperature (BldV) [Partial pressure] 43 mmHg Normal 35-45 [facility] Comment on above: Order Comment: Speci men Type: VENOUS BLOOD SPECIMENOrdering Facility: [facility] Address: [address] [place], [place] [address] Performed By: #### 2 4344-4 ####[facility] LABCLIA [id number] [address] [address] [place] Oxygen saturation in Venous blood 73 % Normal 60-85 [facility] Comment on above: Order Comment: Speci men Type: VENOUS BLOOD SPECIMENOrdering Facility: [facility] Address: [address] [place], [place] [address] Performed By: #### 2 4344-4 ####[facility] LABCLIA [id number] [place] [id number] [place] Oxyhemoglobin (BldV) [Mass fraction] 71 % Normal 60-85 [facility] Comment on above: Order Comment: Speci men Type: VENOUS BLOOD SPECIMENOrdering Facility: [facility] Address: [address] [place], [place] [address] Performed By: #### 2 4344-4 ####[facility] LABCLIA [id number] [address] [address] [place] pH (BldV) 7.40 [pH] Normal 7.32-7.42 [facility] Comment on above: Order Comment: Speci men Type: VENOUS BLOOD SPECIMENOrdering Facility: [facility] Address: [address] [place], [place] [address] Performed By: #### 2 4344-4 ####[facility] LABCLIA [id number] [address] [address] [place] pH adjusted to patient's actual temperature (BldV) 7.40 Normal 7.32-7.42 [facility] Comment on above: Order Comment: Speci men Type: VENOUS BLOOD SPECIMENOrdering Facility: [facility] Address: [address] [place] [id number] Performed By: #### 2 4344-4 ####[facility] LABCLIA [id number] [place] [id number] [place] Potassium [Moles/Vol] 3.6 mmol/L Normal 3.5-5.0 [facility] Comment on above: Order Comment: Speci men Type: VENOUS BLOOD SPECIMENOrdering Facility: [facility] Address: [address] [place] [address] Performed By: #### 2 4344-4 ####[facility] LABIA [id number] [place] [address] [place] Sodium [Moles/Vol] 136 mmol/L Normal 136-144 [facility] Comment on above: Order Comment: Speci men Type: VENOUS BLOOD SPECIMENOrdering Facility: [facility] Address: [address] [place] [address] Performed By: #### 2 4344-4 ####[facility] LABIA [id number] [place] [address] [place] Glucose SerPl-mCncon 07-17-2 025 Glucose [Mass/Vol] 131 mg/dL High 74-99 [facility] Comment on above: Order Comment: Speci men Type: BLOOD SPECIMENOrdering Facility: [facility] Address: [address] [place] [address] Result Comment: The [place] [employer] (ADA) provides guidance for cutoff values for fasting glucose and random glucose. The ADA defines fasting as no caloric intake for at least 8 hours. Fasting plasma glucose results between 100 to 125 mg/dL indicate increased risk for diabetes (prediabetes).Fasting plasma glucose results greater than or equal to 126 mg/dL meet the criteria for diagnosis of diabetes. In the absence of unequivocal hyperglycemia, results should be confirmed by repeat testing. In a patient with classic symptoms of hyperglycemia or hyperglycemic crisis, random plasma glucose results greater than or equal to 200 mg/dL meet the criteria for diagnosis of diabetes.Reference: Standards of Medical Care in Diabetes 2016, [place] [employer]. Diabetes Care. 2016.39(Suppl 1). Performed By: #### 2 345-7 ####[facility] [id number] [address] [place] Hematocrit Auto (Bld) [Volum e fraction]on 09-04-2024 Hematocrit (Bld) [Volume fraction] 34.3 % Low 36.0-46.0 [facility] Comment on above: Order Comment: Speci men Type: BLOOD SPECIMENOrdering Facility: [facility] Address: [address] [place] [address] Performed By: #### 4 544-3 ####[facility] [id number] [address] [place] INTRAOPERATIVE ECHO PREon INTRAOPERATIVE ECHO PRE Normal [facility] OPERATIVE NOon 09-04-2024 OPERATIVE NO Normal [facility] Pathology biopsy report Ganesh (Tiss)on 09-04-2024 AP DISCLAIMER Normal [facility] Comment on above: Order Comment: Speci men Type: TISSUE SPECIMENOrdering Facility: [facility] Address: [address] [place] [address] Result Comment: Nunu beverly Developed Test (LDT) Disclaimer:Performance characteristics of immunohistochemical, immunofluorescent, and chromogenic in-situ hybridization tests have been determined by the performing laboratory within [facility] Path[facility] and Laboratory Medicine Department ([facility], [facility], [facility], [facility], [facility], [facility], or [facility]) in a manner consistent with CLIA requirements. One or more of these tests may not have been cleared or approved by the FDA. [facility] is regulated under CLIA as qualified to perform high-complexity testing. These tests are used for clinical purposes. These should not be regarded as investigational or for research. Positive and negative controls stain appropriately. Performed By: #### 6 6121-5 ####[facility] LABIA [id number] [place] [id number] [place] CASE REPORT Normal [facility] Comment on above: Order Comment: Speci nico Type: TISSUE SPECIMENOrdering Facility: [facility] Address: [address] [place] [address] Result Comment: Surg ica Pathology Report Case: [id number] Provider: Jourdan Damon MD Collected: 09/04/2024 10:27 AMOrdering Location: Admitting Received: 09/04/2024 02:12 PMPathologist: Sarah Matta MDSpecimens: A) - Heart, Aortic Valve B) - Aorta, please send to histology Performed By: #### 6 6121-5 ####[facility] LABIA [id number] [address] CLINICAL HISTORY Normal [facility] Comment on above: Order Comment: Speci nico Type: TISSUE SPECIMENOrdering Facility: [facility] Address: [address] [place] [address] Result Comment: Pre- op diagnosis:Disorder of artery or arteriole [I77.9]Pre-operative cardiovascular examination [Z01.810]Aortic valve disorder [I35.9] Performed By: #### 6 6121-5 ####[facility] [id number] [address] FINAL DIAGNOSIS Normal [facility] Comment on above: Order Comment: Ulises walsh Type: TISSUE SPECIMENOrdering Facility: [facility] Address: [address] [place] [address] Result Comment: A. A ortic valve, excision:- Bicuspid semilunar valve with severe calcification and severe fibrosis (gross examination only).CDT/MSL 09/05/2024. Aorta, partial excision:- Moderate patchy loss of smooth muscle cells.- Mild increase in mucopolysaccharides.CSM 09/08/2024 at 1629 EDT Performed By: #### 6 6121-5 ####[facility] LABCLIA [id number] [address] [place] FINAL PERFORMING LAB Normal [facility] Comment on above: Order Comment: Speci men Type: TISSUE SPECIMENOrdering Facility: [facility] Address: [address] [place] [address] Result Comment: Diag nostic interpretation performed at: [facility], [address] [place] [address], [place] [address] CLIA# [id number] Director: Shiraz Curry MD Performed By: #### 6 6121-5 ####[facility] LABCLIA [id number] [address] GROSS DESCRIPTION Normal [facility] Comment on above: Order Comment: Speci men Type: TISSUE SPECIMENOrdering Facility: [facility] Address: [address] [place] [address] Result Comment: A. H eart, Aortic ValveReceived in formalin, labeled ??? heart, aortic valve???, are two semilunar valve cusps, measuring 3.0 to 3.1 cm in length along the free edges and 1.5 to 1.7 cm in width from free edge to base. A median raphe is identified. Severe calcification and severe fibrosis are present. Lambl's excrescences are noted. Fenestrations, perforations, vegetations, or commissural fusion are not identified. No sections are submitted; gross examination only. The specimen is reviewed with Dr. Mellissa Gallegos.B. AortaReceived in formalin, labeled ???aorta, please send to histology???, is an unoriented segment of large artery consistent with aorta measuring 4.0 x 1.5 x 0.2. A dissection plane is not identified. The adventitial surface is roughened and hemorrhagic. The thickness of the wall is 0.2 cm. The intimal surface is smooth and glistening. The specimen is totally submitted in cassettes B1 and B2. The specimen is reviewed with Dr. Mellissa Gallegos.Gross examination performed at [facility], [address] [place], [place] [address]MSL/SHANA 09/05/24 10:19 AM Performed By: #### 6 6121-5 ####[facility] LABIA [id number] [place] [address] [place] MICROSCOPIC DESCRIPTION Normal [facility] Comment on above: Order Comment: Speci men Type: TISSUE SPECIMENOrdering Facility: [facility] Address: [address] [place] [address] Result Comment: B. M ovat stain was performed to assess the vascular architecture with adequate control. Movat stain shows elastic-type artery with intact elastic lamellar architecture. There is moderate patchy loss of smooth muscle cells in the media. There is moderate diffuse accumulation of mucopolysaccharides within the lamellar units. There is no evidence of cystic medial degeneration or inflammatory infiltrates. Performed By: #### 6 6121-5 ####[facility] [id number] [place] [address] [place] Platelets Auto (Bld) [#/Vol] on 09-04-2024 Platelets (Bld) [#/Vol] 305 10*3/uL Normal 150-400 [facility] Comment on above: Order Comment: Speci men Type: BLOOD SPECIMENOrdering Facility: [facility] Address: [address] [place] [address] Performed By: #### 7 77-3 ####[facility] [id number] [place] [address] [place] STAPHYLOCOCCUS AUREUS AND MR SA SCREEN, PCR, NASALon 09-04-2024 S. aureus and MRSA panel KADY+probe (Nose) Not detected Normal Not Detected [facility] Comment on above: Order Comment: Speci men Type: SWABOrdering Facility: [facility] Address: [address] [place] [address] Performed By: #### S APCR ####[facility] [id number] [place] [address] [place] THROMBOGRAPH HEPARINASE PANE Kong 09-04-2024 Clot angle after addition of heparinase TEG (Bld) [Angle] 71.1 degrees Normal 47.0-74.0 [facility] Comment on above: Order Comment: Speci men Type: BLOOD SPECIMENOrdering Facility: [facility] Address: [address] [place] [address] Performed By: #### T EGHPP ####[facility] LABIA [id number] [place] [address] [place] Clot Lysis 30 Min post maximum clot amplitude TEG (Bld) [Length fraction] 0.0 % Normal 0.0-8.0 [facility] Comment on above: Order Comment: Speci men Type: BLOOD SPECIMENOrdering Facility: [facility] Address: [address] [place] [address] Performed By: #### T EGHPP ####[facility] [id number] [place] [address] [place] Clotting time after addition of heparinase TEG (Bld) 5.9 minutes Normal 4.0-10.0 [facility] Comment on above: Order Comment: Speci men Type: BLOOD SPECIMENOrdering Facility: [facility] Address: [address] [place] [address] Performed By: #### T EGHPP ####[facility] [id number] [place] [address] [place] Coagulation index TEG Qn (Bld) 2.0 Normal -4.6-3.2 [facility] Comment on above: Order Comment: Speci men Type: BLOOD SPECIMENOrdering Facility: [facility] Address: [address] [place] [address] Result Comment: This test was developed, and its performance characteristics determined by the [facility] Department of Pathology and Laboratory Medicine. It has not been cleared or approved by the FDA. The [facility] Department of Pathology and Laboratory Medicine is regulated under CLIA as qualified to perform high-complexity testing. This test is used for clinical purposes. It should not be regarded as investigational or for research. Performed By: #### T EGHPP ####[facility] LABCLIA [id number] [place] [address] [place] Maximum clot firmness after addition of heparinase TEG (Bld) [Length] 70.7 mm Normal 51.0-75.0 [facility] Comment on above: Order Comment: Speci men Type: BLOOD SPECIMENOrdering Facility: [facility] Address: [address] [place] [address] Performed By: #### T EGHPP ####[facility] LABIA [id number] [address] [place] Thromboelastography after addtion of heparinase panel (Bld) Normal [facility] Comment on above: Order Comment: Speci men Type: BLOOD SPECIMENOrdering Facility: [facility] Address: [address] [place] [address] Result Comment: A th romboelastograph (TEG) study was performed using a citrate-anticoagulated whole blood treated with heparinase to neutralize a heparin effect.The R value decreased to between 4.0 and 10.0 minutes after sample treatment with heparinase. This is consistent with heparin therapy with adequate residual hemostasis. The angle, a measure of fibrinogen function, is within normal range. This is indicative of normal fibrinogen concentration or function. The Maximal Amplitude (MA), a measure of platelet function, is within the normal range. The Ly30, a measure of fibrinolysis, is normal. This is indicative of normal fibrinolytic function. The coagulation index (CI), a measure of hemostasis function, is within the normal range. The CI is a calculated parameter based on the other TEG results.Viscoelastic testing is not intended for the monitoring of anticoagulation or antiplatelet medications or the diagnosis and/or management of platelet disorders and/or coagulopathies but may be useful for guiding blood product utilization in emergency and urgent (OR) circumstances when routine coagulation and cell blood counts are not available in a timely manner. Performed By: #### T EGHPP ####[facility] LABCLIA [id number] [place] [id number] [place] XR CHEST 1V FRONTAL PORTon 0 09-04-2024 XR CHEST 1V FRONTAL PORT [facility] ALL[facility] HEALTH Normal [facility] Basic metabolic 2000 panelon 09-03-2024 Anion gap [Moles/Vol] 14 mmol/L Normal 8-15 [facility] Comment on above: Order Comment: Speci men Type: BLOOD SPECIMENOrdering Facility: [facility] Address: [address] [place] [address] Performed By: #### 2 4321-2, 80043-1, 2776-, 95387-6 ####[facility] LABCLIA [id number] [address] [address] [place] Calcium [Mass/Vol] 9.1 mg/dL Normal 8.5-10.2 [facility] Comment on above: Order Comment: Speci men Type: BLOOD SPECIMENOrdering Facility: [facility] Address: [address] [place] [address] Performed By: #### 2 4321-2, 25468-3, 27708-19, ####[facility] LABCLIA [id number] [address] [address] [place] Chloride [Moles/Vol] 100 mmol/L Normal 98-107 [facility] Comment on above: Order Comment: Speci men Type: BLOOD SPECIMENOrdering Facility: [facility] Address: [address] [place], [place] [address] Performed By: #### 2 4321-2, 60088-8, 2776-02, ####[facility] LABCLIA [id number] [address] [address] [place] CO2 [Moles/Vol] 25 mmol/L Normal 22-30 [facility] Comment on above: Order Comment: Speci men Type: BLOOD SPECIMENOrdering Facility: [facility] Address: [address] [place], [place] [address] Performed By: #### 2 4321-2, 32422-8, 277-1, 46773-5 ####[facility] LABCLIA [id number] [address] [address] [place] Creatinine [Mass/Vol] 0.66 mg/dL Normal 0.58-0.96 [facility] Comment on above: Order Comment: Speci men Type: BLOOD SPECIMENOrdering Facility: [facility] Address: [address] [place] [address] Performed By: #### 2 4321-2, 27535-0, 2776-, ####[facility] LABIA [id number] [address] [address] [place] eGFRcr SerPlBld CKD-EPI 2020 109 mL/min/1.73m??? Normal >=60 [facility] Comment on above: Order Comment: Spectariq men Type: BLOOD SPECIMENOrdering Facility: [facility] Address: [address] [place] [address] Result Comment: Tsering mated Glomerular Filtration Rate (eGFR) is calculated using the 2020 CKD-EPI creatinine equation. This equation utilizes serum creatinine, sex, and age as parameters. The creatinine assay has traceable calibration to isotope dilution-mass spectrometry. Refer to KDIGO guidelines for clinical interpretation. In patients with unstable renal function, e.g. those with acute kidney injury, the eGFR may not accurately reflect actual GFR. Performed By: #### 2 4321-2, 88907-6, 2776-, ####[facility] LABIA [id number] [address] [address] [place] Glucose [Mass/Vol] 104 mg/dL High 74-99 [facility] Comment on above: Order Comment: Speci men Type: BLOOD SPECIMENOrdering Facility: [facility] Address: [address] [place] [address] Result Comment: The [place] [employer] (ADA) provides guidance for cutoff values for fasting glucose and random glucose. The ADA defines fasting as no caloric intake for at least 8 hours. Fasting plasma glucose results between 100 to 125 mg/dL indicate increased risk for diabetes (prediabetes).Fasting plasma glucose results greater than or equal to 126 mg/dL meet the criteria for diagnosis of diabetes. In the absence of unequivocal hyperglycemia, results should be confirmed by repeat testing. In a patient with classic symptoms of hyperglycemia or hyperglycemic crisis, random plasma glucose results greater than or equal to 200 mg/dL meet the criteria for diagnosis of diabetes.Reference: Standards of Medical Care in Diabetes 2016, [place] [employer]. Diabetes Care. 2016.39(Suppl 1). Performed By: #### 2 4321-2, 01319-0, 2776-02, ####[facility] LABCLIA [id number] [address] [address] [place] Potassium [Moles/Vol] 3.9 mmol/L Normal 3.7-5.1 [facility] Comment on above: Order Comment: Speci men Type: BLOOD SPECIMENOrdering Facility: [facility] Address: [address] [place] [address] Performed By: #### 2 4321-2, 66073-1, 2776-02, ####[facility] LABCLIA [id number] [place] [id number] [place] Sodium [Moles/Vol] 139 mmol/L Normal 136-144 [facility] Comment on above: Order Comment: Speci men Type: BLOOD SPECIMENOrdering Facility: [facility] Address: [address] [place] [address] Performed By: #### 2 4321-2, 37332-6, 2776-02, ####[facility] LABCLIA [id number] [address] [address] [place] Urea nitrogen [Mass/Vol] 14 mg/dL Normal 7-21 [facility] Comment on above: Order Comment: Speci men Type: BLOOD SPECIMENOrdering Facility: [facility] Address: [address] [place] [address] Performed By: #### 2 4321-2, 74395-9, 2776-02, ####[facility] LABCLIA [id number] [place] [id number] [place] CASE MANAGEMon 09-03-2024 CASE MANAGEM Normal [facility] CBC panel Auto (Bld)on 09-03 Erythrocyte distribution width (RBC) [Ratio] 14.6 % Normal 11.5-15.0 [facility] Comment on above: Order Comment: Speci men Type: BLOOD SPECIMENOrdering Facility: [facility] Address: [address] [place] [address] Performed By: #### 5 8410-2 ####[facility] LABIA [id number] [place] [address] [place] Hematocrit (Bld) [Volume fraction] 39.6 % Normal 36.0-46.0 [facility] Comment on above: Order Comment: Speci men Type: BLOOD SPECIMENOrdering Facility: [facility] Address: [address] [place] [address] Performed By: #### 5 8410-2 ####[facility] LABIA [id number] [place] [address] [place] Hemoglobin (Bld) [Mass/Vol] 12.8 g/dL Normal 11.5-15.5 [facility] Comment on above: Order Comment: Speci men Type: BLOOD SPECIMENOrdering Facility: [facility] Address: [address] [place] [address] Performed By: #### 5 8410-2 ####[facility] LABIA [id number] [place] [id number] [place] MCH (RBC) [Entitic mass] 29.4 pg Normal 26.0-34.0 [facility] Comment on above: Order Comment: Speci men Type: BLOOD SPECIMENOrdering Facility: [facility] Address: [address] [place] [address] Performed By: #### 5 8410-2 ####[facility] LABIA [id number] [place] [address] [place] MCHC (RBC) [Mass/Vol] 32.3 g/dL Normal 30.5-36.0 [facility] Comment on above: Order Comment: Speci men Type: BLOOD SPECIMENOrdering Facility: [facility] Address: [address] [place] [address] Performed By: #### 5 8410-2 ####[facility] LABCLIA [id number] [place] [address] [place] MCV (RBC) [Entitic vol] 91.0 fL Normal 80.0-100.0 [facility] Comment on above: Order Comment: Speci men Type: BLOOD SPECIMENOrdering Facility: [facility] Address: [address] [place] [address] Performed By: #### 5 8410-2 ####[facility] LABCLIA [id number] [place] [address] [place] Nucleated RBC (Bld) [#/Vol] 10*3/uL Normal <0.01 [facility] Comment on above: Order Comment: Speci men Type: BLOOD SPECIMENOrdering Facility: [facility] Address: [address] [place] [address] Performed By: #### 5 8410-2 ####[facility] LABIA [id number] [place] [address] [place] Platelet mean volume (Bld) [Entitic vol] 9.4 fL Normal 9.0-12.7 [facility] Comment on above: Order Comment: Speci men Type: BLOOD SPECIMENOrdering Facility: [facility] Address: [address] [place] [address] Performed By: #### 5 8410-2 ####[facility] LABCLIA [id number] [place] [address] [place] Platelets (Bld) [#/Vol] 477 10*3/uL High 150-400 [facility] Comment on above: Order Comment: Speci men Type: BLOOD SPECIMENOrdering Facility: [facility] Address: [address] [place] [address] Performed By: #### 5 8410-2 ####[facility] LABCLIA [id number] [address] [address] [place] RBC (Bld) [#/Vol] 4.35 10*6/uL Normal 3.90-5.20 [facility] Comment on above: Order Comment: Speci men Type: BLOOD SPECIMENOrdering Facility: [facility] Address: [address] [place] [address] Performed By: #### 5 8410-2 ####[facility] LABCLIA [id number] [place] [address] [place] WBC (Bld) [#/Vol] 11.45 10*3/uL High 3.70-11.00 [facility] Comment on above: Order Comment: Speci men Type: BLOOD SPECIMENOrdering Facility: [facility] Address: [address] [place] [address] Performed By: #### 5 8410-2 ####[facility] LABCLIA [id number] [place] [id number] [place] CONSULT PROGon 09-03-2024 CONSULT PROG Normal [facility] Hepatic function 2000 panelo n 09-03-2024 Albumin [Mass/Vol] 4.0 g/dL Normal 3.9-4.9 [facility] Comment on above: Order Comment: Speci men Type: BLOOD SPECIMENOrdering Facility: [facility] Address: [address] [place] [address] Performed By: #### 2 4321-2, 65274-3, 2777-1, 29822-9 ####[facility] LABCLIA [id number] [address] [address] [place] ALP [Catalytic activity/Vol] 117 U/L Normal 34-123 [facility] Comment on above: Order Comment: Speci men Type: BLOOD SPECIMENOrdering Facility: [facility] Address: [address] [place], [place] [address] Performed By: #### 2 4321-2, 26093-3, 2776-02, ####[facility] LABCLIA [id number] [address] [address] [place] ALT [Catalytic activity/Vol] 19 U/L Normal 7-38 [facility] Comment on above: Order Comment: Speci men Type: BLOOD SPECIMENOrdering Facility: [facility] Address: [address] [place], [place] [address] Performed By: #### 2 4321-2, 49307-2, 2776-02, ####[facility] LABIA [id number] [place] [address] [place] AST [Catalytic activity/Vol] 15 U/L Normal 13-35 [facility] Comment on above: Order Comment: Speci men Type: BLOOD SPECIMENOrdering Facility: [facility] Address: [address] [place], [place] [address] Performed By: #### 2 4321-2, 71661-9, 2776-02, ####[facility] LABCLIA [id number] [address] [address] [place] Bilirubin [Mass/Vol] 0.3 mg/dL Normal 0.2-1.3 [facility] Comment on above: Order Comment: Speci men Type: BLOOD SPECIMENOrdering Facility: [facility] Address: [address] [place], [place] [address] Performed By: #### 2 4321-2, 57660-5, 2776-02, ####[facility] LABCLIA [id number] [address] [address] [place] Bilirubin.conjugated [Mass/Vol] 0.1 mg/dL Normal <0.3 [facility] Comment on above: Order Comment: Speci men Type: BLOOD SPECIMENOrdering Facility: [facility] Address: [address] [place] [address] Performed By: #### 2 4321-2, 66833-4, 277-1, 62008-7 ####[facility] LABIA [id number] [place] [id number] [place] Protein [Mass/Vol] 7.1 g/dL Normal 6.3-8.0 [facility] Comment on above: Order Comment: Speci men Type: BLOOD SPECIMENOrdering Facility: [facility] Address: [address] [place] [address] Performed By: #### 2 4321-2, 71073-5, 277-1, ####[facility] [id number] [place] [id number] [place] Magnesium SerPl-mCncon 09-03 Magnesium [Mass/Vol] 2.1 mg/dL Normal 1.7-2.3 [facility] Comment on above: Order Comment: Speci men Type: BLOOD SPECIMENOrdering Facility: [facility] Address: [address] [place] [address] Performed By: #### 2 4321-2, 27000-1, 2777-1, ####[facility] [id number] [place] [id number] [place] PT panel Coag (PPP)on 2024 INR Coag (PPP) [Relative time] 1.0 {INR} Normal 0.9-1.3 [facility] Comment on above: Order Comment: Speci men Type: BLOOD SPECIMENOrdering Facility: [facility] Address: [address] [place] [address] Result Comment: Annamarie min K Antagonist (VKA) Therapeutic Range: INR 2 to 3 (Target INR of 2.5)Note: For patients treated with VKA drugs, such as warfarin, the [place] [employer] 2012 Guideline recommends a therapeutic INR range of 2 to 3 (target INR of 2.5). This recommendation includes high-risk patients with antiphospholipid syndrome with previous arterial or venous thromboembolism, current-generation mechanical or bioprosthetic aortic heart valve replacement.Note: Patients with mechanical aortic valve replacement and additional risk factors for thromboembolic events (atrial fibrillation, previous thromboembolism, LV dysfunction, hypercoagulable conditions) or an older generation mechanical AVR (i.e., ball in-Cage) or any mechanical MVR should have a INR therapeutic range of 2.5 to 3.5 (target INR of 3).Bert GARCIA, et al. Chest 2012, 141:7S-47SNishezekiel RA, et al. JAC 2017, 70: 252-289 Performed By: #### 3 4528-0 ####[facility] [id number] [place] [address] [place] PT Coag (PPP) [Time] 11.1 s Normal 9.7-13.0 [facility] Comment on above: Order Comment: Speci men Type: BLOOD SPECIMENOrdering Facility: [facility] Address: [address] [place] [address] Performed By: #### 3 4528-0 ####[facility] [id number] [place] [address] [place] Phosphate SerPl-mCncon 09-03 Phosphate [Mass/Vol] 4.2 mg/dL Normal 2.7-4.8 [facility] Comment on above: Order Comment: Speci men Type: BLOOD SPECIMENOrdering Facility: [facility] Address: [address] [place] [address] Performed By: #### 2 4321-2, 96378-0, 2777-1, 09012-1 ####[facility] [id number] [place] [address] [place] Basic metabolic 2000 panelon 09-02-2024 Anion gap [Moles/Vol] 11 mmol/L Normal 8-15 [facility] Comment on above: Order Comment: Speci men Type: BLOOD SPECIMENOrdering Facility: [facility] Address: [address] [place], [place] [address] Performed By: #### 2 4321-2, 277-1, , 01658-7 ####[facility] LABCLIA [id number] [facility]PITALK [address] [address] [place] Calcium [Mass/Vol] 8.9 mg/dL Normal 8.5-10.2 [facility] Comment on above: Order Comment: Speci men Type: BLOOD SPECIMENOrdering Facility: [facility] Address: [address] [place] [address] Performed By: #### 2 4321-2, 277-, , ####[facility] LABCLIA [id number] [facility] [place] [id number] [place] Chloride [Moles/Vol] 100 mmol/L Normal 98-107 [facility] Comment on above: Order Comment: Speci men Type: BLOOD SPECIMENOrdering Facility: [facility] Address: [address] [place] [address] Performed By: #### 2 4321-2, 277-, , ####[facility] LABCLIA [id number] [facility] ERK [address] [address] [place] CO2 [Moles/Vol] 25 mmol/L Normal 22-30 [facility] Comment on above: Order Comment: Speci men Type: BLOOD SPECIMENOrdering Facility: [facility] Address: [address] [place], [place] [address] Performed By: #### 2 4321-2, 277-, , 77723-4 ####[facility] LABCLIA [id number] [facility]UEQUE[facility]OSPIT[facility] [address] [address] [place] Creatinine [Mass/Vol] 0.60 mg/dL Normal 0.58-0.96 [facility] Comment on above: Order Comment: Uliess walsh Type: BLOOD SPECIMENOrdering Facility: [facility] Address: [address] [place] [id number] Performed By: #### 2 4321-2, 2777-1, 24081-1, 35588-4 ####[facility] LABCLIA [id number] [place] [id number] [place] Creatinine and Glomerular filtration rate.predicted panel (S/P/Bld) 112 mL/min/1.73m??? Normal >=60 [facility] Comment on above: Order Comment: Ulises nico Type: BLOOD SPECIMENOrdering Facility: [facility] Address: [address] [place] [address] Result Comment: Tsering mated Glomerular Filtration Rate (eGFR) is calculated using the 2020 CKD-EPI creatinine equation. This equation utilizes serum creatinine, sex, and age as parameters. The creatinine assay has traceable calibration to isotope dilution-mass spectrometry. Refer to KDIGO guidelines for clinical interpretation. In patients with unstable renal function, e.g. those with acute kidney injury, the eGFR may not accurately reflect actual GFR. Performed By: #### 2 4321-2, 2777-1, , 70457-2 ####[facility] LABCLIA [id number] [address] [address] [place] Glucose [Mass/Vol] 118 mg/dL High 74-99 [facility] Comment on above: Order Comment: Ulises walsh Type: BLOOD SPECIMENOrdering Facility: [facility] Address: [address] [place] [address] Result Comment: The [place] [employer] (ADA) provides guidance for cutoff values for fasting glucose and random glucose. The ADA defines fasting as no caloric intake for at least 8 hours. Fasting plasma glucose results between 100 to 125 mg/dL indicate increased risk for diabetes (prediabetes).Fasting plasma glucose results greater than or equal to 126 mg/dL meet the criteria for diagnosis of diabetes. In the absence of unequivocal hyperglycemia, results should be confirmed by repeat testing. In a patient with classic symptoms of hyperglycemia or hyperglycemic crisis, random plasma glucose results greater than or equal to 200 mg/dL meet the criteria for diagnosis of diabetes.Reference: Standards of Medical Care in Diabetes 2016, [place] [employer]. Diabetes Care. 2016.39(Suppl 1). Performed By: #### 2 4321-2, 2777-1, , 03362-3 ####[facility] LABCLIA [id number] TingzSTONY BROOK SOUTHAMPTON HOSPITALFlashstock [address] [place] [address] [place] Potassium [Moles/Vol] 4.0 mmol/L Normal 3.7-5.1 [facility] Comment on above: Order Comment: Speci men Type: BLOOD SPECIMENOrdering Facility: [facility] Address: [address] [place] [address] Performed By: #### 2 4321-2, 277-, , 71347-2 ####[facility] LABIA [id number] [address] [address] [place] Sodium [Moles/Vol] 136 mmol/L Normal 136-144 [facility] Comment on above: Order Comment: Speci men Type: BLOOD SPECIMENOrdering Facility: [facility] Address: [address] [place] [address] Performed By: #### 2 4321-2, 2776-, , 37306-8 ####[facility] LABIA [id number] [address] [address] [place] Urea nitrogen [Mass/Vol] 12 mg/dL Normal 7-21 [facility] Comment on above: Order Comment: Speci men Type: BLOOD SPECIMENOrdering Facility: [facility] Address: [address] [place] [address] Performed By: #### 2 4321-2, 277-, , 47519-2 ####[facility] LABCLIA [id number] [address] [address] [place] CASE MGT INIT ASSESon 2024 CASE MGT INIT ASSES Normal [facility] CBC panel Auto (Bld)on 09-02 Erythrocyte distribution width (RBC) [Ratio] 15.1 % High 11.5-15.0 [facility] Comment on above: Order Comment: Speci men Type: BLOOD SPECIMENOrdering Facility: [facility] Address: [address] [place] [address] Performed By: #### 5 8410-2 ####[facility] LABCLIA [id number] [place] [address] [place] Hematocrit (Bld) [Volume fraction] 38.9 % Normal 36.0-46.0 [facility] Comment on above: Order Comment: Speci men Type: BLOOD SPECIMENOrdering Facility: [facility] Address: [address] [place] [address] Performed By: #### 5 8410-2 ####[facility] LABIA [id number] [place] [address] [place] Hemoglobin (Bld) [Mass/Vol] 12.5 g/dL Normal 11.5-15.5 [facility] Comment on above: Order Comment: Speci men Type: BLOOD SPECIMENOrdering Facility: [facility] Address: [address] [place] [address] Performed By: #### 5 8410-2 ####[facility] LABIA [id number] [place] [address] [place] MCH (RBC) [Entitic mass] 29.7 pg Normal 26.0-34.0 [facility] Comment on above: Order Comment: Speci men Type: BLOOD SPECIMENOrdering Facility: [facility] Address: [address] [place] [address] Performed By: #### 5 8410-2 ####[facility] LABCLIA [id number] [place] [id number] [place] MCHC (RBC) [Mass/Vol] 32.1 g/dL Normal 30.5-36.0 [facility] Comment on above: Order Comment: Speci men Type: BLOOD SPECIMENOrdering Facility: [facility] Address: [facility] [place] [address] Performed By: #### 5 8410-2 ####[facility] LABIA [id number] [address] [address] [place] MCV (RBC) [Entitic vol] 92.4 fL Normal 80.0-100.0 [facility] Comment on above: Order Comment: Speci men Type: BLOOD SPECIMENOrdering Facility: [facility] Address: [address] [place] [address] Performed By: #### 5 8410-2 ####[facility] LABIA [id number] [place] [address] [place] Nucleated RBC (Bld) [#/Vol] 10*3/uL Normal <0.01 [facility] Comment on above: Order Comment: Speci men Type: BLOOD SPECIMENOrdering Facility: [facility] Address: [address] [place] [address] Performed By: #### 5 8410-2 ####[facility] LABIA [id number] [place] [id number] [place] Platelet mean volume (Bld) [Entitic vol] 9.7 fL Normal 9.0-12.7 [facility] Comment on above: Order Comment: Speci men Type: BLOOD SPECIMENOrdering Facility: [facility] Address: [address] [place] [address] Performed By: #### 5 8410-2 ####[facility] LABIA [id number] [place] [id number] [place] Platelets (Bld) [#/Vol] 436 10*3/uL High 150-400 [facility] Comment on above: Order Comment: Speci men Type: BLOOD SPECIMENOrdering Facility: [facility] Address: [address] [place] [address] Performed By: #### 5 8410-2 ####[facility] LABIA [id number] [place] [id number] [place] RBC (Bld) [#/Vol] 4.21 10*6/uL Normal 3.90-5.20 [facility] Comment on above: Order Comment: Speci men Type: BLOOD SPECIMENOrdering Facility: [facility] Address: [address] [place] [address] Performed By: #### 5 8410-2 ####[facility] LABIA [id number] [place] [address] [place] WBC (Bld) [#/Vol] 12.30 10*3/uL High 3.70-11.00 [facility] Comment on above: Order Comment: Speci men Type: BLOOD SPECIMENOrdering Facility: [facility] Address: [address] [place] [address] Performed By: #### 5 8410-2 ####[facility] LABIA [id number] [place] [id number] [place] CONSULTon 09-02-2024 CONSULT Normal [facility] CONSULT Normal [facility] CONSULT Normal [facility] CONSULT PROGon 09-02-2024 CONSULT PROG Normal [facility] ECG COMPLETEon 09-02-2024 ECG COMPLETE Normal [facility] Hepatic function 2000 panelo n 09-02-2024 Albumin [Mass/Vol] 3.8 g/dL Low 3.9-4.9 [facility] Comment on above: Order Comment: Speci men Type: BLOOD SPECIMENOrdering Facility: [facility] Address: [address] [place] [address] Performed By: #### 2 4321-2, 2777-1, 87111-3, 91510-2 ####[facility] LABIA [id number] [place] [id number] [place] ALP [Catalytic activity/Vol] 115 U/L Normal 34-123 [facility] Comment on above: Order Comment: Speci men Type: BLOOD SPECIMENOrdering Facility: [facility] Address: [address] [place] [address] Performed By: #### 2 4321-2, 277-1, , 00890-6 ####[facility] LABCLIA [id number] [place] [address] [place] ALT [Catalytic activity/Vol] 18 U/L Normal 7-38 [facility] Comment on above: Order Comment: Speci men Type: BLOOD SPECIMENOrdering Facility: [facility] Address: [address] [place] [address] Performed By: #### 2 4321-2, 277-1, , 14114-8 ####[facility] LABCLIA [id number] [place] [address] [place] AST [Catalytic activity/Vol] 15 U/L Normal 13-35 [facility] Comment on above: Order Comment: Speci men Type: BLOOD SPECIMENOrdering Facility: [facility] Address: [address] [place] [address] Performed By: #### 2 4321-2, 277-1, , 05510-5 ####[facility] LABCLIA [id number] [place] [address] [place] Bilirubin [Mass/Vol] 0.4 mg/dL Normal 0.2-1.3 [facility] Comment on above: Order Comment: Speci men Type: BLOOD SPECIMENOrdering Facility: [facility] Address: [address] [place] [address] Performed By: #### 2 4321-2, 277-1, , 89627-8 ####[facility] LABCLIA [id number] [place] [id number] [place] Bilirubin.conjugated [Mass/Vol] 0.2 mg/dL Normal <0.3 [facility] Comment on above: Order Comment: Speci men Type: BLOOD SPECIMENOrdering Facility: [facility] Address: [address] [place] [address] Performed By: #### 2 4321-2, 2777-1, , 88974-7 ####[facility] LABIA [id number] [place] [id number] [place] Protein [Mass/Vol] 6.8 g/dL Normal 6.3-8.0 [facility] Comment on above: Order Comment: Speci men Type: BLOOD SPECIMENOrdering Facility: [facility] Address: [address] [place] [address] Performed By: #### 2 4321-2, 2777-1, , 14846-1 ####[facility] [id number] [place] [address] [place] Magnesium SerPl-mCncon 09-02 Magnesium [Mass/Vol] 2.1 mg/dL Normal 1.7-2.3 [facility] Comment on above: Order Comment: Speci men Type: BLOOD SPECIMENOrdering Facility: [facility] Address: [address] [place] [address] Performed By: #### 2 4321-2, 2777-1, , 61279-7 ####[facility] [id number] [place] [id number] [place] PT panel Coag (PPP)on 2024 INR Coag (PPP) [Relative time] 1.1 {INR} Normal 0.9-1.3 [facility] Comment on above: Order Comment: Speci men Type: BLOOD SPECIMENOrdering Facility: [facility] Address: [address] [place] [address] Result Comment: Annamarie min K Antagonist (VKA) Therapeutic Range: INR 2 to 3 (Target INR of 2.5)Note: For patients treated with VKA drugs, such as warfarin, the [place] [employer] 2012 Guideline recommends a therapeutic INR range of 2 to 3 (target INR of 2.5). This recommendation includes high-risk patients with antiphospholipid syndrome with previous arterial or venous thromboembolism, current-generation mechanical or bioprosthetic aortic heart valve replacement.Note: Patients with mechanical aortic valve replacement and additional risk factors for thromboembolic events (atrial fibrillation, previous thromboembolism, LV dysfunction, hypercoagulable conditions) or an older generation mechanical AVR (i.e., ball in-Cage) or any mechanical MVR should have a INR therapeutic range of 2.5 to 3.5 (target INR of 3).Bert GH, et al. Chest 2012, 141:7S-47SNishimura RA, et al. [facility] 2017, 70: 252-289 Performed By: #### 3 4528-0 ####[facility] [id number] [place] [address] [place] PT Coag (PPP) [Time] 11.4 s Normal 9.7-13.0 [facility] Comment on above: Order Comment: Speci men Type: BLOOD SPECIMENOrdering Facility: [facility] Address: [address] [place] [address] Performed By: #### 3 4528-0 ####[facility] [id number] [place] [address] [place] Phosphate SerPl-mCncon 09-02 Phosphate [Mass/Vol] 3.9 mg/dL Normal 2.7-4.8 [facility] Comment on above: Order Comment: Speci men Type: BLOOD SPECIMENOrdering Facility: [facility] Address: [address] [place] [address] Performed By: #### 2 4321-2, 2777-1, 30623-9, 98043-8 ####[facility] LABIA [id number] [place] [address] [place] B-HCG SerPl-aCncon 5 HCG.beta subunit Qn m[IU]/mL Normal <5.0 [facility] Comment on above: Order Comment: Speci men Type: BLOOD SPECIMENOrdering Facility: [facility] Address: [address] [place] [address] Result Comment: Shelly españa Performed By: #### 2 1198-7 ####[facility] LABCLIA [id number] [place] [address] [place] CBC W Auto Differential pane l (Bld)on 09-01-2024 Basophils (Bld) [#/Vol] 0.05 10*3/uL Normal <0.11 [facility] Comment on above: Order Comment: Speci men Type: BLOOD SPECIMENOrdering Facility: [facility] Address: [address] [place] [address] Performed By: #### 5 7021-8 ####[facility] LABCLIA [id number] [place] [address] [place] Basophils/100 WBC (Bld) 0.4 % Normal [facility] Comment on above: Order Comment: Speci men Type: BLOOD SPECIMENOrdering Facility: [facility] Address: [address] [place] [address] Performed By: #### 5 7021-8 ####[facility] LABCLIA [id number] [place] [address] [place] Differential cell count method Nom (Bld) Auto Normal [facility] Comment on above: Order Comment: Speci men Type: BLOOD SPECIMENOrdering Facility: [facility] Address: [address] [place] [address] Performed By: #### 5 7021-8 ####[facility] LABCLIA [id number] [place] [address] [place] Eosinophils (Bld) [#/Vol] 0.10 10*3/uL Normal <0.46 [facility] Comment on above: Order Comment: Speci men Type: BLOOD SPECIMENOrdering Facility: [facility] Address: [address] [place] [address] Performed By: #### 5 7021-8 ####[facility] LABIA [id number] [place] [address] [place] Eosinophils/100 WBC (Bld) 0.7 % Normal [facility] Comment on above: Order Comment: Speci men Type: BLOOD SPECIMENOrdering Facility: [facility] Address: [address] [place] [address] Performed By: #### 5 7021-8 ####[facility] LABIA [id number] [place] [address] [place] Erythrocyte distribution width (RBC) [Ratio] 14.8 % Normal 11.5-15.0 [facility] Comment on above: Order Comment: Speci men Type: BLOOD SPECIMENOrdering Facility: [facility] Address: [address] [place] [address] Performed By: #### 5 7021-8 ####[facility] LABIA [id number] [place] [address] [place] Hematocrit (Bld) [Volume fraction] 40.4 % Normal 36.0-46.0 [facility] Comment on above: Order Comment: Speci men Type: BLOOD SPECIMENOrdering Facility: [facility] Address: [address] [place] [address] Performed By: #### 5 7021-8 ####[facility] LABIA [id number] [place] [address] [place] Hemoglobin (Bld) [Mass/Vol] 13.1 g/dL Normal 11.5-15.5 [facility] Comment on above: Order Comment: Speci men Type: BLOOD SPECIMENOrdering Facility: [facility] Address: [address] [place] [address] Performed By: #### 5 7021-8 ####[facility] LABCLIA [id number] [place] [address] [place] Immature granulocytes (Bld) [#/Vol] 0.12 10*3/uL High <0.10 [facility] Comment on above: Order Comment: Speci men Type: BLOOD SPECIMENOrdering Facility: [facility] Address: [address] [place] [address] Performed By: #### 5 7021-8 ####[facility] LABCLIA [id number] [place] [address] [place] Immature granulocytes/100 WBC (Bld) 0.8 % Normal [facility] Comment on above: Order Comment: Speci men Type: BLOOD SPECIMENOrdering Facility: [facility] Address: [address] [place] [address] Performed By: #### 5 7021-8 ####[facility] LABCLIA [id number] [place] [address] [place] Lymphocytes (Bld) [#/Vol] 1.99 10*3/uL Normal 1.00-4.00 [facility] Comment on above: Order Comment: Speci men Type: BLOOD SPECIMENOrdering Facility: [facility] Address: [address] [place] [address] Performed By: #### 5 7021-8 ####[facility] LABCLIA [id number] [place] [address] [place] Lymphocytes/100 WBC (Bld) 14.0 % Normal [facility] Comment on above: Order Comment: Speci men Type: BLOOD SPECIMENOrdering Facility: [facility] Address: [address] [place] [address] Performed By: #### 5 7021-8 ####[facility] LABCLIA [id number] [place] [address] [place] MCH (RBC) [Entitic mass] 29.4 pg Normal 26.0-34.0 [facility] Comment on above: Order Comment: Speci men Type: BLOOD SPECIMENOrdering Facility: [facility] Address: [address] [place] [address] Performed By: #### 5 7021-8 ####[facility] LABCLIA [id number] [place] [address] [place] MCHC (RBC) [Mass/Vol] 32.4 g/dL Normal 30.5-36.0 [facility] Comment on above: Order Comment: Speci men Type: BLOOD SPECIMENOrdering Facility: [facility] Address: [address] [place] [address] Performed By: #### 5 7021-8 ####[facility] LABCLIA [id number] [place] [address] [place] MCV (RBC) [Entitic vol] 90.6 fL Normal 80.0-100.0 [facility] Comment on above: Order Comment: Speci men Type: BLOOD SPECIMENOrdering Facility: [facility] Address: [address] [place] [address] Performed By: #### 5 7021-8 ####[facility] LABCLIA [id number] [place] [address] [place] Monocytes (Bld) [#/Vol] 0.67 10*3/uL Normal <0.87 [facility] Comment on above: Order Comment: Speci men Type: BLOOD SPECIMENOrdering Facility: [facility] Address: [address] [place] [address] Performed By: #### 5 7021-8 ####[facility] [facility] LABCLIA [id number] [place] [address] [place] Monocytes/100 WBC (Bld) 4.7 % Normal [facility] Comment on above: Order Comment: Speci men Type: BLOOD SPECIMENOrdering Facility: [facility] Address: [address] [place] [address] Performed By: #### 5 7021-8 ####[facility] LABCLIA [id number] [address] [place] [address] [place] Neutrophils (Bld) [#/Vol] 11.26 10*3/uL High 1.45-7.50 [facility] Comment on above: Order Comment: Speci men Type: BLOOD SPECIMENOrdering Facility: [facility] Address: [address] [place] [address] Performed By: #### 5 7021-8 ####[facility] LABCLIA [id number] [address], [place] [address] [place] Neutrophils/100 WBC (Bld) 79.4 % Normal [facility] Comment on above: Order Comment: Speci men Type: BLOOD SPECIMENOrdering Facility: [facility] Address: [address] [place] [address] Performed By: #### 5 7021-8 ####[facility] LABCLIA [id number] [address], [place] [address] [place] Nucleated RBC (Bld) [#/Vol] 10*3/uL Normal <0.01 [facility] Comment on above: Order Comment: Speci men Type: BLOOD SPECIMENOrdering Facility: [facility] Address: [address] [place] [address] Performed By: #### 5 7021-8 ####[facility] LABCLIA [id number] [address], [place] [address] [place] Nucleated RBC/100 WBC (Bld) [Ratio] 0.0 /100 WBC Normal [facility] Comment on above: Order Comment: Speci men Type: BLOOD SPECIMENOrdering Facility: [facility] Address: [address] [place] [address] Performed By: #### 5 7021-8 ####[facility] LABCLIA [id number] [address], [facility]95 [place] Platelet mean volume (Bld) [Entitic vol] 9.7 fL Normal 9.0-12.7 [facility] Comment on above: Order Comment: Speci men Type: BLOOD SPECIMENOrdering Facility: [facility] Address: [address] [place] [address] Performed By: #### 5 7021-8 ####[facility] LABCLIA [id number] [address] [address] [place] Platelets (Bld) [#/Vol] 474 10*3/uL High 150-400 [facility] Comment on above: Order Comment: Speci men Type: BLOOD SPECIMENOrdering Facility: [facility] Address: [address] [place] [address] Performed By: #### 5 7021-8 ####[facility] LABIA [id number] [place] [address] [place] RBC (Bld) [#/Vol] 4.46 10*6/uL Normal 3.90-5.20 [facility] Comment on above: Order Comment: Speci men Type: BLOOD SPECIMENOrdering Facility: [facility] Address: [address] [place] [address] Performed By: #### 5 7021-8 ####[facility] LABCLIA [id number] [place] [address] [place] WBC (Bld) [#/Vol] 14.19 10*3/uL High 3.70-11.00 [facility] Comment on above: Order Comment: Speci men Type: BLOOD SPECIMENOrdering Facility: [facility] Address: [address] [place] [address] Performed By: #### 5 7021-8 ####[facility] LABCLIA [id number] [place] [id number] [place] CNCNPATEDon 09-01-2024 CNCNPATED Normal [facility] CNOVon 09-01-2024 CNOV Normal [facility] CTA CHEST (GATED) W IVCONon 09-01-2024 CTA CHEST (GATED) W IVCON Normal [facility] Comprehensive metabolic 2000 panelon 09-01-2024 Albumin [Mass/Vol] 4.1 g/dL Normal 3.9-4.9 [facility] Comment on above: Order Comment: Speci men Type: BLOOD SPECIMENOrdering Facility: [facility] Address: [address] [place] [address] Performed By: #### 2 532-0, 92320-1 ####[facility] LABCLIA [id number] [place] [address] [place] ALP [Catalytic activity/Vol] 120 U/L Normal 34-123 [facility] Comment on above: Order Comment: Speci men Type: BLOOD SPECIMENOrdering Facility: [facility] Address: [address] [place] [address] Performed By: #### 2 532-0, 91228-4 ####[facility] LABCLIA [id number] [place] [address] [place] ALT [Catalytic activity/Vol] 19 U/L Normal 7-38 [facility] Comment on above: Order Comment: Speci men Type: BLOOD SPECIMENOrdering Facility: [facility] Address: [address] [place] [address] Performed By: #### 2 532-0, 61184-8 ####[facility] LABCLIA [id number] [place] [address] [place] Anion gap [Moles/Vol] 13 mmol/L Normal 8-15 [facility] Comment on above: Order Comment: Speci men Type: BLOOD SPECIMENOrdering Facility: [facility] Address: [address] [place] [address] Performed By: #### 2 532-0, 82356-1 ####[facility] LABCLIA [id number] [place] [address] [place] AST [Catalytic activity/Vol] 15 U/L Normal 13-35 [facility] Comment on above: Order Comment: Speci men Type: BLOOD SPECIMENOrdering Facility: [facility] Address: [address] [place] [id number] Performed By: #### 2 532-0, ####[facility] LABIA [id number] [place] [address] [place] Bilirubin [Mass/Vol] 0.3 mg/dL Normal 0.2-1.3 [facility] Comment on above: Order Comment: Speci men Type: BLOOD SPECIMENOrdering Facility: [facility] Address: [address] [place] [address] Performed By: #### 2 532-0, ####[facility] LABIA [id number] [place] [address] [place] Calcium [Mass/Vol] 9.1 mg/dL Normal 8.5-10.2 [facility] Comment on above: Order Comment: Speci men Type: BLOOD SPECIMENOrdering Facility: [facility] Address: [address] [place] [address] Performed By: #### 2 532-0, ####[facility] LABIA [id number] [place] [address] [place] Chloride [Moles/Vol] 100 mmol/L Normal 98-107 [facility] Comment on above: Order Comment: Speci men Type: BLOOD SPECIMENOrdering Facility: [facility] Address: [address] [place], [place] [address] Performed By: #### 2 532-0, ####[facility] LABIA [id number] [place] [id number] [place] CO2 [Moles/Vol] 25 mmol/L Normal 22-30 [facility] Comment on above: Order Comment: Speci men Type: BLOOD SPECIMENOrdering Facility: [facility] Address: [address] [place], [place] [address] Performed By: #### 2 532-0, 60526-6 ####[facility] LABIA [id number] [address] [address] [place] Creatinine [Mass/Vol] 0.61 mg/dL Normal 0.58-0.96 [facility] Comment on above: Order Comment: Ulises walsh Type: BLOOD SPECIMENOrdering Facility: [facility] Address: [address] [place] [address] Performed By: #### 2 532-0, 84816-3 ####[facility] LABIA [id number] [address] [address] [place] Creatinine and Glomerular filtration rate.predicted panel (S/P/Bld) 111 mL/min/1.73m??? Normal >=60 [facility] Comment on above: Order Comment: [facility] Type: BLOOD SPECIMENOrdering Facility: [facility] Address: [address] [place] [address] Result Comment: Tsering mated Glomerular Filtration Rate (eGFR) is calculated using the 2020 CKD-EPI creatinine equation. This equation utilizes serum creatinine, sex, and age as parameters. The creatinine assay has traceable calibration to isotope dilution-mass spectrometry. Refer to KDIGO guidelines for clinical interpretation. In patients with unstable renal function, e.g. those with acute kidney injury, the eGFR may not accurately reflect actual GFR. Performed By: #### 2 532-0, 22213-9 ####[facility] LABIA [id number] [address] [address] [place] Glucose [Mass/Vol] 121 mg/dL High 74-99 [facility] Comment on above: Order Comment: Ulises nico Type: BLOOD SPECIMENOrdering Facility: [facility] Address: [address] [place] [address] Result Comment: The [place] [employer] (ADA) provides guidance for cutoff values for fasting glucose and random glucose. The ADA defines fasting as no caloric intake for at least 8 hours. Fasting plasma glucose results between 100 to 125 mg/dL indicate increased risk for diabetes (prediabetes).Fasting plasma glucose results greater than or equal to 126 mg/dL meet the criteria for diagnosis of diabetes. In the absence of unequivocal hyperglycemia, results should be confirmed by repeat testing. In a patient with classic symptoms of hyperglycemia or hyperglycemic crisis, random plasma glucose results greater than or equal to 200 mg/dL meet the criteria for diagnosis of diabetes.Reference: Standards of Medical Care in Diabetes 2016, [place] [employer]. Diabetes Care. 2016.39(Suppl 1). Performed By: #### 2 532-0, 18144-3 ####[facility] LABCLIA [id number] [place] [address] [place] Potassium [Moles/Vol] 4.1 mmol/L Normal 3.7-5.1 [facility] Comment on above: Order Comment: Speci men Type: BLOOD SPECIMENOrdering Facility: [facility] Address: [address] [place] [address] Performed By: #### 2 532-0, 53715-3 ####[facility] LABCLIA [id number] [place] [address] [place] Protein [Mass/Vol] 6.6 g/dL Normal 6.3-8.0 [facility] Comment on above: Order Comment: Hernandezi men Type: BLOOD SPECIMENOrdering Facility: [facility] Address: [address] [place] [address] Performed By: #### 2 532-0, 69904-9 ####[facility] LABCLIA [id number] [place] [address] [place] Sodium [Moles/Vol] 138 mmol/L Normal 136-144 [facility] Comment on above: Order Comment: Speci men Type: BLOOD SPECIMENOrdering Facility: [facility] Address: [address] [place] [address] Performed By: #### 2 532-0, 33328-4 ####[facility] LABCLIA [id number] [address] [address] [place] Urea nitrogen [Mass/Vol] 13 mg/dL Normal 7-21 [facility] Comment on above: Order Comment: Speci men Type: BLOOD SPECIMENOrdering Facility: [facility] Address: [address] [place] [address] Performed By: #### 2 532-0, 93517-1 ####[facility] LABIA [id number] [place] [address] [place] HISTORY PHYSICALon HISTORY PHYSICAL Normal [facility] LDH SerPl-cCncon 09-01-2024 LDH [Catalytic activity/Vol] 257 U/L High 135-214 [facility] Comment on above: Order Comment: Speci men Type: BLOOD SPECIMENOrdering Facility: [facility] Address: [address] [place] [address] Performed By: #### 2 532-0, 60322-0 ####[facility] LABIA [id number] [place] [address] [place] LPa SerPl-mCncon 09-01-2024 Lipoprotein a [Mass/Vol] 15 mg/dL Normal <30 [facility] Comment on above: Order Comment: Speci men Type: BLOOD SPECIMENOrdering Facility: [facility] Address: [address] [place] [address] Performed By: #### 1 0835-7 ####[facility] [id number] [place] [address] [place] LUNG DIFFUSION CAPACITY (MANJINDER O)on 09-01-2024 LUNG DIFFUSION CAPACITY (DLCO) Normal [facility] NURSING PROGon 09-01-2024 NURSING PROG Normal [facility] PT panel Coag (PPP)on 2024 INR Coag (PPP) [Relative time] 1.0 {INR} Normal 0.9-1.3 [facility] Comment on above: Order Comment: Speci men Type: BLOOD SPECIMENOrdering Facility: [facility] Address: [address] [place] [address] Result Comment: Annamarie min K Antagonist (VKA) Therapeutic Range: INR 2 to 3 (Target INR of 2.5)Note: For patients treated with VKA drugs, such as warfarin, the [place] [employer] 2012 Guideline recommends a therapeutic INR range of 2 to 3 (target INR of 2.5). This recommendation includes high-risk patients with antiphospholipid syndrome with previous arterial or venous thromboembolism, current-generation mechanical or bioprosthetic aortic heart valve replacement.Note: Patients with mechanical aortic valve replacement and additional risk factors for thromboembolic events (atrial fibrillation, previous thromboembolism, LV dysfunction, hypercoagulable conditions) or an older generation mechanical AVR (i.e., ball in-Cage) or any mechanical MVR should have a INR therapeutic range of 2.5 to 3.5 (target INR of 3).Funmilayott GH, et al. Chest 2012, 141:7S-47SNishimura RA, et al. [facility] 2017, 70: 252-289 Performed By: #### 1 4979-9, 43394-5 ####[facility] LABIA [id number] [address] [place] PT Coag (PPP) [Time] 11.0 s Normal 9.7-13.0 [facility] Comment on above: Order Comment: Speci men Type: BLOOD SPECIMENOrdering Facility: [facility] Address: [address] [place] [address] Performed By: #### 1 4979-9, 66146-4 ####[facility] [id number] [address] [place] SPIROMETRY BASELINE ONLYon 0 09-01-2024 SPIROMETRY BASELINE ONLY Normal [facility] STAPHYLOCOCCUS AUREUS AND MR SA SCREEN, PCR, NASALon 09-01-2024 S. aureus and MRSA panel KADY+probe (Nose) Not detected Normal Not Detected [facility] Comment on above: Order Comment: Speci men Type: SWABOrdering Facility: [facility] Address: [address] [place] [address] Performed By: #### S APCR ####[facility] LABIA [id number] [address] OF [facility] TYPE AND SCREEN,30 DAYon ABO A Normal [facility] Comment on above: Order Comment: Speci men Type: BLOOD SPECIMENOrdering Facility: [facility] Address: [address] [place] [address] Performed By: #### T SCR30 ####[facility] BLOOD BANKCLIA [id number] [place] [address] [place] Rh Nom (Bld) Positive Normal [facility] Comment on above: Order Comment: Speci men Type: BLOOD SPECIMENOrdering Facility: [facility] Address: [address] [place] [address] Performed By: #### T SCR30 ####[facility] BLOOD [facility] [id number] [place] [address] [place] URINALYSIS, DIPSTICK ONLYon 09-01-2024 Bilirubin Ql (U) Negative Normal Negative [facility] Comment on above: Order Comment: Speci men Type: URINE SPECIMENOrdering Facility: [facility] Address: [address] [place] [address] Performed By: #### U A ####[facility] LABIA [id number] [place] [address] [place] Clarity (Unsp spec) Cloudy Abnormal Clear [facility] Comment on above: Order Comment: Speci men Type: URINE SPECIMENOrdering Facility: [facility] Address: [address] [place] [address] Performed By: #### U A ####[facility] LABCLIA [id number] [place] [address] [place] Color (U) Yellow Normal Yellow [facility] Comment on above: Order Comment: Speci men Type: URINE SPECIMENOrdering Facility: [facility] Address: [address] [place] [address] Performed By: #### U A ####[facility] LABCLIA [id number] [address] [place] [address] [place] Glucose Test strip (U) [Mass/Vol] Negative Normal Negative [facility] Comment on above: Order Comment: Speci men Type: URINE SPECIMENOrdering Facility: [facility] Address: [address] [place] [address] Performed By: #### U A ####[facility] LABCLIA [id number] [address] [place] [address] [place] Hemoglobin Ql (U) Negative Normal Negative [facility] Comment on above: Order Comment: Speci men Type: URINE SPECIMENOrdering Facility: [facility] Address: [address] [place] [address] Performed By: #### U A ####[facility] LABCLIA [id number] [address], [facility]95 [place] Ketones Ql (U) Negative Normal Negative [facility] Comment on above: Order Comment: Speci men Type: URINE SPECIMENOrdering Facility: [facility] Address: [address] [place] [address] Performed By: #### U A ####[facility] LABCLIA [id number] [address], [facility]95 [place] [facility] Leukocyte esterase Test strip Ql (U) Trace Abnormal Negative [facility] Comment on above: Order Comment: Speci men Type: URINE SPECIMENOrdering Facility: [facility] Address: [address] [place] [address] Performed By: #### U A ####[facility] LABCLIA [id number] [address] [place] [address] [place] Nitrite Ql (U) Negative Normal Negative [facility] Comment on above: Order Comment: Speci men Type: URINE SPECIMENOrdering Facility: [facility] Address: [address] [place] [address] Performed By: #### U A ####[facility] LABCLIA [id number] [place] [address] [place] pH (U) 6.5 [pH] Normal <8.5 [facility] Comment on above: Order Comment: Speci men Type: URINE SPECIMENOrdering Facility: [facility] Address: [address] [place] [address] Performed By: #### U A ####[facility] LABCLIA [id number] [place] [address] [place] Protein (U) [Mass/Vol] Trace Abnormal Negative [facility] Comment on above: Order Comment: Speci men Type: URINE SPECIMENOrdering Facility: [facility] Address: [address] [place] [address] Performed By: #### U A ####[facility] LABIA [id number] [place] [address] [place] Specific gravity (U) [Rel density] 1.022 Normal 1.005-1.030 [facility] Comment on above: Order Comment: Speci men Type: URINE SPECIMENOrdering Facility: [facility] Address: [address] [place] [address] Performed By: #### U A ####[facility] LABIA [id number] [address] [place] Urobilinogen Ql (U) 1.0 EU/dL Normal 0.2-1.0 EU/dL [facility] Comment on above: Order Comment: Speci men Type: URINE SPECIMENOrdering Facility: [facility] Address: [address] [place] [address] Performed By: #### U A ####[facility] LABIA [id number] [place] [id number] [place] aPTT PPPon 09-01-2024 aPTT Coag (PPP) [Time] 29.6 s Normal 23.0-32.4 [facility] Comment on above: Order Comment: Speci men Type: BLOOD SPECIMENOrdering Facility: [facility] Address: [address] [facility] [place] [address] Performed By: #### 1 4979-9, 12471-5 ####[facility] LABABRAHAM [id number] [facility] [place] [address] [place] CTA ABD/PEL W IVCONon 2024 CTA ABD/PEL W IVCON * * *Final Report* * * DATE OF EXAM: Aug 13 2024 9:09AM [facility] 0311 - CTA ABD/PEL W IVCON / PROCEDURE REASON: Encounter for preprocedural cardiovascular examination * * * * Physician Interpretation * * * * CTA Aorta chest, Direct Image Comparison: None HISTORY: 49 years old Female with h/o suspected aortic disease. Evaluation for further treatment options. There is request to define thoracic and aortic anatomy TECHNIQUE: SCANNER: Multi-detector scanner PROTOCOL: Prospectively triggered helical high-pitch acquisitions (triggered Flash-mode) was performed following the intravenous administration of contrast material. Scan Range: thoracic inlet through the ischial tuberosities CT Dose-Length Product (DLP): 1460.86 mGy*cm CT Dose Reduction Employed: Automated exposure control(AEC) and iterative recon CONTRAST: IV administration of 75 ml Omnipaque 350 Scan acquisition: uncomplicated Macro Version: [id number]_6 For optimization of anatomic evaluation, advanced 3-D off-line postprocessing was performed on a dedicated workstation by the interpreting physician, including 4D assessment. STUDY LIMITATIONS: None. RESULT: LINES, TUBES and DEVICES: None CHEST: Chest wall anatomy: unremarkable. LUNGS: unremarkable. MEDIASTINUM: unremarkable. PERICARDIUM: unremarkable CENTRAL PULMONARY ARTERY: normal dimensions. Assessment is limited due to limited contrast enhancement. CARDIAC CHAMBERS: LEFT VENTRICLE: normal size and LV systolic function. Left ventricular hypertrophy noted. . RIGHT VENTRICLE: normal size, and normal systolic function Left atrium: normal size. MIKE: normal. Right atrium: normal size CENTRAL VENOUS and PULMONARY VENOUS RETURN: normal. Coronary Sinus: normal size MITRAL VALVE: assessment is limited in the current study - no leaflet calcification. No annular calcification TRICUSPID and PULMONIC VALVE: appear unremarkable. CORONARY ANATOMY: normal origin of the coronary arteries. No definitive evidence of calcified atherosclerotic changes of the coronary arteries. AORTIC VALVE: appears bicuspid. Severe leaflet calcification. AORTA: Pathology: No acute aortic pathology. Intervention: None Complications: n/a Aortic Size: Ectasia/Mild Dilation ascending aorta. STJ: maintained. Wall Changes: no evidence of wall changes. Arch Branch Vessels: Not visualized in the scan range Visceral Branch Vessels: Not visualized in the scan range Iliac Arteries: Not visualized in the scan range AORTIC DIMENSIONS: AORTIC ROOT: 3.3 cm measured lnllk-yk-chgld mid ASCENDING THORACIC AORTA: 4.3 cm mid DESCENDING THORACIC AORTA: 2 cm limited upperABDOMEN Unremarkable BONES and SOFT TISSUES: unremarkable, within limitations of the current study Motor Vehicle Assembler (topogram) images: No additional findings. IMPRESSION: Bicuspid aortic valve with severe calcification and significant appearing stenosis. Dilated mid ascending aorta measuring 4.3 cm. No acute aortic pathology. Tax Analyst: PSCB Transcribe Date/Time: Aug 13 2024 10:28A Dictated by : BERENICE LOBATO MD This examination was interpreted and the report reviewed and electronically signed by: BERENICE LOBATO MD on Aug 13 2024 1:23PM EST [id number] Normal [facility] CTA CHEST (GATED) WO/W IVCON on 08-13-2024 CTA CHEST (GATED) WO/W IVCON * * *Final Report* * * DATE OF EXAM: Aug 13 2024 9:09AM [facility] 0126 - CTA CHEST (GATED) WO/W IVCON / PROCEDURE REASON: Encounter for preprocedural cardiovascular examination * * * * Physician Interpretation * * * * CTA Aorta chest, Direct Image Comparison: None HISTORY: 49 years old Female with h/o suspected aortic disease. Evaluation for further treatment options. There is request to define thoracic and aortic anatomy TECHNIQUE: SCANNER: Multi-detector scanner PROTOCOL: Prospectively triggered helical high-pitch acquisitions (triggered Flash-mode) was performed following the intravenous administration of contrast material. Scan Range: thoracic inlet through the ischial tuberosities CT Dose-Length Product (DLP): 1460.86 mGy*cm CT Dose Reduction Employed: Automated exposure control(AEC) and iterative recon CONTRAST: IV administration of 75 ml Omnipaque 350 Scan acquisition: uncomplicated Macro Version: [id number] For optimization of anatomic evaluation, advanced 3-D off-line postprocessing was performed on a dedicated workstation by the interpreting physician, including 4D assessment. STUDY LIMITATIONS: None. RESULT: LINES, TUBES and DEVICES: None CHEST: Chest wall anatomy: unremarkable. LUNGS: unremarkable. MEDIASTINUM: unremarkable. PERICARDIUM: unremarkable CENTRAL PULMONARY ARTERY: normal dimensions. Assessment is limited due to limited contrast enhancement. CARDIAC CHAMBERS: LEFT VENTRICLE: normal size and LV systolic function. Left ventricular hypertrophy noted. . RIGHT VENTRICLE: normal size, and normal systolic function Left atrium: normal size. MIKE: normal. Right atrium: normal size CENTRAL VENOUS and PULMONARY VENOUS RETURN: normal. Coronary Sinus: normal size MITRAL VALVE: assessment is limited in the current study - no leaflet calcification. No annular calcification TRICUSPID and PULMONIC VALVE: appear unremarkable. CORONARY ANATOMY: normal origin of the coronary arteries. No definitive evidence of calcified atherosclerotic changes of the coronary arteries. AORTIC VALVE: appears bicuspid. Severe leaflet calcification. AORTA: Pathology: No acute aortic pathology. Intervention: None Complications: n/a Aortic Size: Ectasia/Mild Dilation ascending aorta. STJ: maintained. Wall Changes: no evidence of wall changes. Arch Branch Vessels: Not visualized in the scan range Visceral Branch Vessels: Not visualized in the scan range Iliac Arteries: Not visualized in the scan range AORTIC DIMENSIONS: AORTIC ROOT: 3.3 cm measured dikpi-nw-ysall mid ASCENDING THORACIC AORTA: 4.3 cm mid DESCENDING THORACIC AORTA: 2 cm limited upperABDOMEN Unremarkable BONES and SOFT TISSUES: unremarkable, within limitations of the current study Motor Vehicle Assembler (topogram) images: No additional findings. IMPRESSION: Bicuspid aortic valve with severe calcification and significant appearing stenosis. Dilated mid ascending aorta measuring 4.3 cm. No acute aortic pathology. Tax Analyst: [facility] Transcribe Date/Time: Aug 13 2024 10:28A Dictated by : BERENICE LOBATO MD This examination was interpreted and the report reviewed and electronically signed by: BERENICE LOBATO MD on Aug 13 2024 1:23PM EST [id number] Normal [facility] CARD CATH DIAGNOSTICon 08-08 CARD CATH DIAGNOSTIC Site Id: [facility] Lab #: DEFAULT Study Date: 08/08/2024 Start Time: End Time: Name Duty Monique Ca MD PROC 1 Camron Palencia RT PROC SCRUB 1 Yuridia Dumas RN PROC CIRC 1 Johnna Mancia RN PROC RECORD 1 + + PATIENT INFORMATION + + Name: MS. PAUL DAVENPORT [facility] : 1975 Age: 49 years Gender: Height: 64 in / 163 cm Weight: 279.00 lb / 126.55 kg BMI: 47.63 kg/m BSA: 2.26 m + -----+ CLINICAL HISTORY/INDICATIONS + -----+ Dyspnea and Abnormal ECG. Procedural Status: Elective CAD Presentation: Symptoms Unlikely to be Ischemic Angina Classification (within 2 weeks): No Angina Heart Failure: NYHA Class III Clinical History: 49 female with severe aortic stenosis for coronary angiography and right heart cath + + DIAGNOSTIC FINDINGS + + Coronary Anatomy: Right Dominant Injection Site(s): Coronary Artery LMT: The LMT is normal. LAD: The LAD is normal. LCX: The Circumflex is normal. RAMUS: Ramus Status: Not Applicable. RCA: RCA is normal. + + IMPRESSION/PLAN + + Impression:1. Normal Coronary . 2. Severe pulmonary hypertension . 3. Severe . Recommended Treatment: Valve repair / replacement. Plan: AVR + + HEMODYNAMICS - XPER + + + +------ +-----+-------+------+-- ----+------+ Measurement Name Sys Nereida End Nereida Mean A Wave V Wave + +------ +-----+-------+------+-- ----+------+ AO 146.00 89.00 113.00 + +------ +-----+-------+------+-- ----+------+ AO 114.00 64.00 93.00 + +------ +-----+-------+------+-- ----+------+ AO 152.00 94.00 121.00 + +------ +-----+-------+------+-- ----+------+ AO 130.00 80.00 106.00 + +------ +-----+-------+------+-- ----+------+ RA 18.00 22.00 19.00 + +------ +-----+-------+------+-- ----+------+ RV 56.00 14.00 21.00 + +------ +-----+-------+------+-- ----+------+ PA 60.00 19.00 38.00 + +------ +-----+-------+------+-- ----+------+ PW 20.00 26.00 28.00 + +------ +-----+-------+------+-- ----+------+ Oximetry: + +- ---+ +-----+ ---+-----+ Time Site O2 Saturation O2 PO2 HB + +- ---+ +-----+ ---+-----+ 08/08/2024 10:29:37 AM AO 93.00 16.70 13.20 + +- ---+ +-----+ ---+-----+ 08/08/2024 10:29:37 AM RA 67.00 12.03 13.20 + +- ---+ +-----+ ---+-----+ 08/08/2024 10:29:37 AM AO 93.00 16.70 13.20 + +- ---+ +-----+ ---+-----+ 08/08/2024 10:29:37 AM PA 65.00 11.67 13.20 + +- ---+ +-----+ ---+-----+ Cardiac Outputs: +--------+-----+ CORINA SV 82.40 +--------+-----+ CORINA CO 6.42 +--------+-----+ CORINA CI 2.85 +--------+-----+ CORINA HR +--------+-----+ MAN CO +--------+-----+ MAN CI +--------+-----+ TD SV 71.60 +--------+-----+ TD CO 5.58 +--------+-----+ TD CI 2.48 +--------+-----+ ANGIO SV +--------+-----+ ANGIO CO +--------+-----+ ANGIO CI +--------+-----+ Hemodynamics Comments: Severe pulmonary hypertension + + ADVERSE OUTCOME(s)/COMPLICATION( s) + + None + -------+ PROCEDURAL & TECHNICAL DETAILS + -------+ Date Time Description 08/08/2024 12:00:00 AM Left Heart Cath 08/08/2024 12:00:00 AM Right Heart Cath 08/08/2024 12:00:00 AM CORONARY ANGIOGRAPHY W-O [facility] *MEDICAL HISTORY* CAD Presentation: Symptoms Unlikely to be Ischemic Angina Classification (within 2 weeks): No Angina Heart Failure: NYHA Class III Family History of CAD: Yes Congenital Heart Disease: No Coronary Artery Disease: No Dyslipidemia: Yes Hypertension: Yes Myocarditis: No Pericarditis: No Syncope: No Arrhythmia: None Diabetes Mellitus: No Chronic Lung Disease: No Home Oxygen: No Hostile Chest: No Immunocompromised: No Myocardial Infarction: No Creatinine > 2: No Dialysis: Currently not on dialysis Left Ventricle EF: EF Not Relevent to Current Presentation. LVEF at Discharge: *HISTORY OF ARTERIAL DISEASE* Peripheral Arterial Disease: No Cerebrovascular Disease: No TIA: No Stroke: No Carotid ASO: No Vertebral ASO: No Procedure Details: Blood Loss: < 30ml Specimen: No Specimen Obtained Recent PCI Failure of Treated Vessel: Contrast: Radiation: Procedure performed under Fluoroscopic Guidance Total Dose 566.19 mGy (more content not included)... Normal [facility] HCG QUALITATIVEon 08-08-2024 HCG, QUALITATIVE Negative Normal Negative [facility] Comment on above: Order Comment: Speci men Type: BLOOD SPECIMEN Ordering Facility: [facility] Address: [address] [place] [address] Performed By: #### L [id number] #### [facility] CLIA [id number] [address] STATES OF [facility] HISTORY PHYSICALon HISTORY PHYSICAL HNO ID: [id number] Author: MONIQUE CA MD Service: Cardiovascular Surgery Author Type: Physician Type: H&P Filed: 08/08/2024 08:45 Note Text: UPDATED HANDP PRE-CARDIAC CATHETERIZATION SERVICE DATE: 08/08/2024 SERVICE TIME: 8:45 am PHYSICAL EXAM MUST BE COMPLETED ON ADMISSION The History and Physical (completed in the past 30 days) has been reviewed and the patient has been examined. The contents accurately reflect the patient's condition with the following additions or revisions since the HANDP was completed. Examination indicates no changes. Planned Procedure: Right and Left Heart Cath Primary Indication for Procedure: Valvular Heart Disease High Risk Features: History of Prior CABG: No History of Prior PCI: No Cardiomyopathy: No Anti-ischemic Meds in Past 2 Weeks: Beta blockers Ejection Fraction: 60% from Previous Echo Risk Appropriateness: Angina Class in Past 2 Weeks: Class III - Marked limitation of ordinary physical activity Cardiogenic Shock: NoHeart Failure: None Stress Test Performed: None EKG Assessment: Normal Family History of Premature CAD: Father, age 60 Evaluation for Preop Clearance: Cardiac Surgery, Functional Capacity; >= 4 METS with symptoms, Surgical Risk; Intermediate HISTORY OF BLEEDING: No This HANDP can be found in the attached. SIGNATURE: Monique Ca MD PATIENT NAME: Paul Davenport DATE: August 08, 2024 TIME: 8:43 AM [facility] CNPNon 07-30-2024 CNPN Normal [facility] CNPNon 07-28-2024 [facility] CNOVon 07-25-2024 CNOV Office Visit (BERNABE ACOSTA) -------- PAUL DAVENPORT ([id number]) 1975 F Date Time Provider Department 07/25/24 2:00 PM VASQUEZ BRUSH During your visit today, we recorded the following information about you: Temperature Pulse Blood pressure Weight 98.1 degrees 80/minute 126/74 126.6 kg Height 1.626 m Vasquez Brush APRN.[facility] 08/18/2024 5:59 PM Signed Subjective The patient consented to the use of DutyCalculator software for draft documentation of the visit consistent with [facility]?s Notice of Privacy Practices. HPI Paul Davenport is a 49-year-old female with a history of severe aortic stenosis, presenting for follow-up after leaving the hospital [facility] on 07/19/2024. Paul was seen at [facility] on 07/19/2024 for worsening fluid retention, groin and RUQ abdominal pain, chest tightness, and dyspnea. Labs revealed an elevated BNP of 3.44 and leukocytosis of 16.7. CMP was within normal limits, troponins were negative, and a chest x-ray was normal. CT abdomen and pelvis showed probable colitis. She received IV ceftriaxone and IV Flagyl but left AMA before admission for CHF and colitis. She is currently taking oral Flagyl 500 mg TID for 10 days. Paul reports severe fluid retention, stating, I am horribly swollen, like look at me. She notes edema in her legs, abdomen, and even her chin, describing it as horrible, horrible. She attributes some of the swelling to consuming homemade gravy with pot roast, stating, I blew up... it hasn't gone down since pretty much. She experiences significant pain in her legs, making it difficult to lift herself out of the bathtub and causing discomfort while walking. She describes the onset of these symptoms as rapid, stating, It's crazy how this came on so fast. She also reports chest tightness at night, which has been affecting her sleep. She has been using a leg compression device and elevating her legs at night to alleviate the swelling, but notes that elevation sometimes causes pain. Paul is currently taking Lasix but reports that it does not provide significant relief. She is concerned about increasing the dosage due to potential effects on her kidneys. She also takes Lyrica once daily but expresses a desire to discontinue it due to concerns about water retention. She notes that not taking Lyrica makes her demarco. She is also on Abilify, which she reports has improved her depression. She uses a Wixela inhaler once or twice daily and takes Ativan for anxiety, though she tries to limit its use due to its sedative effects. Paul has a history of severe aortic stenosis and is scheduled for a cardiac catheterization on 08/08/[address] Ca. She expresses frustration about a previous inconclusive test in December, stating, I probably could have caught it sooner... it's irritating that I have to suffer and go through all this crap that I could have maybe avoided some of it. She also reports issues with urination, stating, I have to stand over the toilet to even get it to come out. She attributes this to her prolapsed colon and bladder. She also reports improvement in bowel movements and has not been using Miralax recently. She denies fevers. I reviewed past medical, surgical, social, and family histories today and updated chart. Allergies, chronic medications, and supplements were also reviewed. 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 Insomnia, unspecified Iron deficiency anemia 09/25/2023 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/2023 Major depressive disorder, single episode, mild Migraine stable with propranolol Nontoxic uninodular goiter Osteoarthritis of multiple joints Partial rectal prolapse RP (rectal prolapse) ~2012 Sleep apnea Tobacco abuse PAST SURGICAL HISTORY Procedure Laterality Date ABDOMINAL SURGERY HX COLON SURGERY HX 2019 rectal prolapse COLONOSCOPY 11/16/2014, 12/2017 No polyps/ severe diarrhea and prolapse CORRECT RECTAL PROLAPSE CT ABD/PELVIS WO CONTRAST PANEL 11/[address] COR/SAG/SINUS/BRAIN/HEAD 12/2005 normal DEBRIDEMENT MUSCLE AND FASCIA 20 SQ CM/< 11/03/2007 DEBRIDEMENT ULCER EXTREMITY LOWER performed by GEOFF FLOOD at [facility] ECHO EXAM OF HEART 09/2000 bicuspid AV, (more content not included)... Normal [facility] CNOVon 07-23-2024 CNOV Office Visit (EDSON PAULINOB) -------- PAUL DAVENPORT ([id number]) 1975 F Date Time Provider Department 07/23/24 1:40 PM MONIQUE CA During your visit today, we recorded the following information about you: Pulse Respiration Blood pressure Weight 76/minute 18/minute 128/88 124.7 kg Height 1.626 m Monique Ca MD 07/23/2024 6:19 PM Signed Monique Ca MD Interventional Cardiology [address] [place] [address] Chief Complaint Patient presents with: Cardiology Follow Up : Follow up to aortic valve stenosis HISTORY OF PRESENT ILLNESS: Ms. Davenport is a 49-year-old female with a history of bicuspid aortic valve and aortic stenosis, presenting with worsening exertional dyspnea and chest tightness. The patient reports significant worsening of exertional dyspnea and chest tightness over the past year. She experiences severe chest tightness and constant dyspnea, which has markedly worsened compared to a year ago. She can walk less than one block without experiencing dyspnea and has difficulty lying down. She also reports severe fatigue, stating she can't stay awake and is tired all the time, which significantly impacts her daily activities. She notes a gurgling sensation in her chest and persistent congestion, for which she has been repeatedly prescribed antibiotics without improvement. She denies any recent dental infections or cavities. She reports significant fluid retention, particularly in her legs and feet, despite taking Lasix 40 mg, which she feels is ineffective. She has not undergone any cardiac catheterization procedures. She has a history of aortic stenosis with a bicuspid valve diagnosed at age 22. She was last seen in 2023, at which time her ascending aorta measured 3.6 cm, and she was asymptomatic. A recent echocardiogram on 07/09/2023 showed normal LV function with an LVEF of 72%, a peak gradient of 62 mmHg, a mean gradient of 42 mmHg, a dimensionless index of 0.32, and an aortic valve area of 1.0 cm?. Her medical history is also significant for a small brain aneurysm, for which she canceled planned coiling surgery due to her cardiac issues. She also has a prolapsed colon requiring surgical intervention and a hernia. She reports being overweight. She has a strong family history of heart failure, with both her mother and maternal grandmother having from the condition. Her father also has heart failure. She reports taking aspirin, which is not prescribed, in addition to Lasix 40 mg. Cardiac Risk Factors age (male over 45, female over 55), obesity, hypertension, family history of CAD 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 Insomnia, unspecified Iron deficiency anemia 09/25/2023 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/2023 Major depressive disorder, single episode, mild Migraine stable with propranolol Nontoxic uninodular goiter Osteoarthritis of multiple joints Partial rectal prolapse RP (rectal prolapse) ~2012 Sleep apnea Tobacco abuse PAST SURGICAL HISTORY Procedure Laterality Date ABDOMINAL SURGERY HX COLON SURGERY HX 2019 rectal prolapse COLONOSCOPY 11/16/2014, 12/2017 No polyps/ severe diarrhea and prolapse CORRECT RECTAL PROLAPSE CT ABD/PELVIS WO CONTRAST PANEL 11/[address] COR/SAG/SINUS/BRAIN/HEAD 12/2005 normal DEBRIDEMENT MUSCLE AND FASCIA 20 SQ CM/< 11/03/2007 DEBRIDEMENT ULCER EXTREMITY LOWER performed by [facility] FLOOD at [facility] ECHO EXAM OF HEART 09/2000 bicuspid AV, minor AI, mild EGD 01/1999 small hiatal hernia EGD 01/2004 EGD 02/2007 mild gastritis EGD 11/16/2014 EGD 08/02/2022 ENDOSCOPY PROC 10/22/2019 LA grade A reflux esophagitis, Normal stomach, Normal duodenum HOLTER MONITOR 24 HOUR 04/2003 normal INSERT INTRAUTERINE DEVICE 02/2015 Mirena LAPAROSCOPY DIAGNOSTIC age 24, 26 endometriosis, cysts removed MRI BRAIN 05/2003 normal SIGMOIDOSCOPY 01/1999 normal TONSILLECTOMY PRIMARY/SECONDARY Tonsillectomy FAMILY HISTORY Problem Relation Age of Onset Arthritis Mother other (lymphoma) Mother 54 other (CHF) Mother Heart Mother Diabetes Mother Arthritis Father Diabetes Father Thyroid Sister No Known Problems Sister Heart Attack Maternal Grandmother Cancer Maternal (more content not included)... Normal [facility] ALLIED HEALTHon 07-19-2024 ALLIED HEALTH HNO ID: [id number] Author: ANETTE COPELAND Tech Service: ? Author Type: Technologist Type: Allied Health Filed: 07/19/2024 13:03 Note Text: Radiology Service Progress Note DATE OF SERVICE: July 19, 2024 TIME: 1:03 PM PATIENT IDENTITY VERIFICATION COMPLETED USING TWO (2) STANDARD IDENTIFIERS: Name and Date of confirmed by patient verbally and Name and Date of confirmed by identification band. FALL SCREENING: Has the patient had 2 falls in the last year or 1 fall with injury or currently using an Ambulatory Assistive Device (Walker, Cane, Wheelchair, Crutches, etc.)? Emergency Room Patient: Screened in ED PATIENT GENDER DATA: Assigned female at . status: : No status: NO. PATIENT RELEVANT IMPLANT DATA REVIEWED: Not Applicable PATIENT PRESENTS WITH AN IMPLANTABLE OR ATTACHED [facility] ATTENDANT: No ALLERGIES: Reviewed and unchanged CONTRAST ALLERGY: NO. EXAM: CT -CONTRAST INDUCED NEPHROPATHY RISK FACTORS: Not applicable CREATININE: Creatinine Date Value Ref Range Status 07/19/2024 0.68 0.58 - 0.96 mg/dL Final 06/26/2024 0.70 0.58 - 0.96 mg/dL Final 04/07/2024 0.73 0.58 - 0.96 mg/dL Final Estimated Glomerular Filtration Rate Date Value Ref Range Status 07/19/2024 108 >=60 mL/min/1.73m? Final Comment: Estimated Glomerular Filtration Rate (eGFR) is calculated using the 2020 CKD-EPI creatinine equation. This equation utilizes serum creatinine, sex, and age as parameters. The creatinine assay has traceable calibration to isotope dilution-mass spectrometry. Refer to KDIGO guidelines for clinical interpretation. In patients with unstable renal function, e.g. those with acute kidney injury, the eGFR may not accurately reflect actual GFR. eGFR- Date Value Ref Range Status 09/20/2020 >60 Final P.O.C.T. RESULTS: POC done: Yes, See Lab Tab July 19, 2024 TREATMENT: N/A PERIPHERAL IV DATA: Inpatient - refer to [facility] documentation RADIOLOGY DEPARTMENT: CT; Exam(s) Completed: Abdomen/Pelvis SIGNATURE: Yadira Brooks PATIENT NAME: Paul Davenport DATE: July 19, 2024 TIME: 1:03 PM Normal [facility] CBC W Auto Differential pane l (Bld)on 07-19-2024 Basophils (Bld) [#/Vol] 0.05 10*3/uL Normal <0.11 [facility] Comment on above: Order Comment: Speci men Type: BLOOD SPECIMEN Ordering Facility: [facility] Address: [address] [place] [address] Performed By: #### L [id number] #### [facility] CLIA [id number] [address] [place] Basophils/100 WBC (Bld) 0.3 % Normal [facility] Comment on above: Order Comment: Speci men Type: BLOOD SPECIMEN Ordering Facility: [facility] Address: [address] [place] [address] Performed By: #### L [id number] #### [facility] CLIA [id number] [address] [place] Differential cell count method Nom (Bld) Auto Normal [facility] Comment on above: Order Comment: Speci men Type: BLOOD SPECIMEN Ordering Facility: [facility] Address: [facility] [place] [address] Performed By: #### L [id number] #### [facility] CLIA [id number] [address] [place] Eosinophils (Bld) [#/Vol] 0.24 10*3/uL Normal <0.46 [facility] Comment on above: Order Comment: Speci men Type: BLOOD SPECIMEN Ordering Facility: [facility] Address: [facility] [place] [address] Performed By: #### L [id number] #### [facility] CLIA [id number] [address] Eosinophils/100 WBC (Bld) 1.4 % Normal [facility] Comment on above: Order Comment: Speci men Type: BLOOD SPECIMEN Ordering Facility: [facility] Address: [address] [place] [address] Performed By: #### L [id number] #### [facility] CLIA [id number] [address] [place] Erythrocyte distribution width (RBC) [Ratio] 13.6 % Normal 11.5-15.0 [facility] Comment on above: Order Comment: Speci men Type: BLOOD SPECIMEN Ordering Facility: [facility] Address: [address] [place] [address] Performed By: #### L [id number] #### [facility] CLIA [id number] [address] [place] Hematocrit (Bld) [Volume fraction] 41.2 % Normal 36.0-46.0 [facility] Comment on above: Order Comment: Speci men Type: BLOOD SPECIMEN Ordering Facility: [facility] Address: [address] [place] [address] Performed By: #### L [id number] #### [facility] CLIA [id number] [address] [place] Hemoglobin (Bld) [Mass/Vol] 13.2 g/dL Normal 11.5-15.5 [facility] Comment on above: Order Comment: Speci men Type: BLOOD SPECIMEN Ordering Facility: [facility] Address: [address] [place] [address] Performed By: #### L [id number] #### [facility] CLIA [id number] [address] [place] Immature granulocytes (Bld) [#/Vol] 0.13 10*3/uL High <0.10 [facility] Comment on above: Order Comment: Speci men Type: BLOOD SPECIMEN Ordering Facility: [facility] Address: [address] [place] [address] Performed By: #### L [id number] #### [facility] CLIA [id number] [address] OF [place] Immature granulocytes/100 WBC (Bld) 0.8 % Normal [facility] Comment on above: Order Comment: Speci men Type: BLOOD SPECIMEN Ordering Facility: [facility] Address: [address] [place] [address] Performed By: #### L [id number] #### [facility] CLIA [id number] [address] [place] Lymphocytes (Bld) [#/Vol] 2.04 10*3/uL Normal 1.00-4.00 [facility] [facility] Comment on above: Order Comment: Speci men Type: BLOOD SPECIMEN Ordering Facility: [facility] Address: [address] [place] [address] Performed By: #### L [id number] #### [facility] CLIA [id number] [address] Lymphocytes/100 WBC (Bld) 12.2 % Normal [facility] Comment on above: Order Comment: Speci men Type: BLOOD SPECIMEN Ordering Facility: [facility] Address: [address] [place] [address] Performed By: #### L [id number] #### [facility] CLIA [id number] [address] MCH (RBC) [Entitic mass] 29.6 pg Normal 26.0-34.0 [facility] Comment on above: Order Comment: Speci men Type: BLOOD SPECIMEN Ordering Facility: [facility] Address: [address] [place] [address] Performed By: #### L [id number] #### [facility] CLIA [id number] [address] MCHC (RBC) [Mass/Vol] 32.0 g/dL Normal 30.5-36.0 [facility] Comment on above: Order Comment: Speci men Type: BLOOD SPECIMEN Ordering Facility: [facility] Address: [address] [place] [address] Performed By: #### L [id number] #### [facility] CLIA [id number] [address] MCV (RBC) [Entitic vol] 92.4 fL Normal 80.0-100.0 [facility] Comment on above: Order Comment: Speci men Type: BLOOD SPECIMEN Ordering Facility: [facility] Address: [address] [place] [address] Performed By: #### L [id number] #### [facility] CLIA [id number] [address] Monocytes (Bld) [#/Vol] 0.86 10*3/uL Normal <0.87 [facility] Comment on above: Order Comment: Speci men Type: BLOOD SPECIMEN Ordering Facility: [facility] Address: [address] [place] [address] Performed By: #### L [id number] #### [facility] CLIA [id number] [address] Monocytes/100 WBC (Bld) 5.1 % Normal [facility] Comment on above: Order Comment: Speci men Type: BLOOD SPECIMEN Ordering Facility: [facility] Address: [address] [place] [address] Performed By: #### L [id number] #### [facility] CLIA [id number] [address] [place] Neutrophils (Bld) [#/Vol] 13.39 10*3/uL High 1.45-7.50 [facility] Comment on above: Order Comment: Speci men Type: BLOOD SPECIMEN Ordering Facility: [facility] Address: [address] [place] [address] Performed By: #### L [id number] #### [facility] CLIA [id number] [address] Neutrophils/100 WBC (Bld) 80.2 % Normal [facility] Comment on above: Order Comment: Speci men Type: BLOOD SPECIMEN Ordering Facility: [facility] Address: [address] [place] [address] Performed By: #### L [id number] #### [facility] CLIA [id number] [address] [place] Nucleated RBC (Bld) [#/Vol] 10*3/uL Normal <0.01 [facility] Comment on above: Order Comment: Speci men Type: BLOOD SPECIMEN Ordering Facility: [facility] Address: [address] [place] [address] Performed By: #### L [id number] #### [facility] CLIA [id number] [address] [place] Nucleated RBC/100 WBC (Bld) [Ratio] 0.0 /100 WBC Normal [facility] Comment on above: Order Comment: Speci men Type: BLOOD SPECIMEN Ordering Facility: [facility] Address: [facility] [place] [address] Performed By: #### L [id number] #### [facility] CLIA [id number] [address] [place] Platelet mean volume (Bld) [Entitic vol] 9.3 fL Normal 9.0-12.7 [facility] Comment on above: Order Comment: Speci men Type: BLOOD SPECIMEN Ordering Facility: [facility] Address: [address] [place] [address] Performed By: #### L [id number] #### [facility] CLIA [id number] [address] [place] Platelets (Bld) [#/Vol] 474 10*3/uL High 150-400 [facility] Comment on above: Order Comment: Speci men Type: BLOOD SPECIMEN Ordering Facility: [facility] Address: [address] [place] [address] Performed By: #### L [id number] #### [facility] CLIA [id number] [address] [place] RBC (Bld) [#/Vol] 4.46 10*6/uL Normal 3.90-5.20 [facility] Comment on above: Order Comment: Speci men Type: BLOOD SPECIMEN Ordering Facility: [facility] Address: [address] [place] [address] Performed By: #### L [id number] #### [facility] CLIA [id number] [address] [place] WBC (Bld) [#/Vol] 16.71 10*3/uL High 3.70-11.00 [facility] Comment on above: Order Comment: Speci men Type: BLOOD SPECIMEN Ordering Facility: [facility] Address: [address] [place] [address] Performed By: #### L [id number] #### [facility] CLIA [id number] [address] OF [facility] CNDSon 07-19-2024 CNDS HNO ID: [id number] Author: JOSÉ LUIS VALLADARES DO Service: Hospital Medicine Author Type: Physician Type: Discharge Summary Filed: 07/19/2024 22:26 Note Text: DISCHARGE SUMMARY PATIENT NAME: Paul Davenport Code Status: Prior Highest Readmission Risk Score: 16 The 30 day readmissions risk score is derived from an internally validated risk model which evaluates patient level characteristics, utilization history, medication orders and lab results up until the day of discharge. Patients with a score of 39 or above are considered highest risk for readmission. Specific patient level drivers will be listed at the bottom of the summary. Admission Information Admission Information ADMIT DATE: 07/19/2024 DISCHARGE DATE: 07/19/2024 MY DOCTORS AND MEDICAL TEAM: My Main [facility] Doctor: Shonna att. providers found Primary Care Provider: Vasquez Brush APRN.CNP My Medical Team Members: Treatment Team: Primary Service: Admit/ConsultsJustice MY CONDITION AT DISCHARGE: REASON I WAS IN THE HOSPITAL: CHF, aortic stenosis SUMMARY OF WHAT HAPPENED WHILE I WAS IN THE HOSPITAL: Patient was admitted for CHF, aortic stenosis. 49 yo female admitted with chest pain and shortness of breath along with leg swelling. She was noted to have volume overload and was started on lasix. Recent echo showed worsening of her aortic stenosis. Cardiology was consulted for evaluation. While patient was awaiting a room assignment on the main floor from the ED she decided to leave against medical advice. She did not wait to speak with attending physician prior to signing out. The patient left against medical advice. OTHER PROBLEMS/DIAGNOSIS: Principal Problem: Shortness of breath Active Problems: Aortic valve stenosis Chest pain Colitis Leukocytosis Fibromyalgia Bicuspid aortic valve LEONARD (generalized anxiety disorder) Mild intermittent asthma without complication (HCC) ROBIN (obstructive sleep apnea) Resolved Problems: * No resolved hospital problems. * OPERATIONS PERFORMED WHILE IN THE HOSPITAL: IMPORTANT TEST/PROCEDURES: EKG TEST RESULTS NOT AVAILABLE AT THIS TIME: The plan for following up on pending results below is with your pcp and cardiology team. Discharge Disposition AMA Additional Provider to Provider Information: Treatment Team: Primary Service: Admit/ConsultsJustice Transitions of Care Critical Issues: LABS AND PROCEDURES PENDING AT DISCHARGE: No pending results. FOLLOW-UP APPOINTMENTS ALREADY SCHEDULED WITH A [facility] PROVIDER: Future Appointments Date Time Provider Department Center 07/23/2024 1:40 PM Monique Ca MD [facility] 07/25/2024 2:00 PM Vasquez Brush APRN.[facility] [address] ALLERGIES Allergen Reactions Dust extreme coughing, dry hives Metformin Other: See Comments DISCHARGE MEDICATION: Medication List ASK your doctor about these medications albuterol HFA 90 mcg/actuation inhaler Commonly known as: PROVENTIL HFA, VENTOLIN HFA Inhale 2 puffs as instructed every 4 hours as needed for wheezing/shortness of breath. ARIPiprazole 10 mg tablet Commonly known as: ABILIFY aspirin 325 mg tablet Take 1 tablet by mouth once daily. Patient should start on June 09, 2024. cholecalciferol 1,000 unit Tab tablet Commonly known as: VITAMIN D3 Take 2 tablets by mouth once daily. esomeprazole 40 mg capsule Commonly known as: NexIUM Take 1 capsule by mouth two times a day. FLUoxetine 40 mg capsule Commonly known as: PROzac Take 2 capsules by mouth once daily. fluticasone 50 mcg/actuation nasal spray Commonly known as: FLONASE Use 1 spray in each nostril once daily. fluticasone-salmeterol 250-50 mcg/dose inhaler Commonly known as: WIXELA INHUB Inhale 1 puff as instructed two times a day. ibuprofen 800 mg tablet Commonly known as: MOTRIN Take 1 tablet by mouth every 8 hours as needed for pain. LASIX 40 mg tablet Generic drug: furosemide Take 1 tablet by mouth once daily. levonorgestrel 21 mcg/24hr (up to 8 yrs) 52 mg IUD Commonly known as: MIRENA LORazepam 1 mg tablet Commonly known as: ATIVAN methocarbamol 500 mg tablet Commonly known as: ROBAXIN Take 1 tablet by mouth two times a day as needed. MIRALAX 17 gram packet Generic drug: polyethylene glycol 3350 pregablin 200 mg capsule Commonly known as: LYRICA Take 1 capsule by mouth two times a day for 30 days. propranolol 20 mg tablet Commonly known as: INDERAL Take 1 tablet by mouth two times a day. SUMAtriptan 50 mg tablet Commonly known as: IMITREX Take 1 tablet (50 mg) by mouth as needed for migraine headache (see administration instructions). May repeat dose after 2 hours if needed. Maximum daily dose is 200 mg per day. The patient's risk for 30-day readmission is determined using the following contributing factors: Predictive Model Details 16% (Low) Factor Value Calculated 07/19/2024 17:19 19% Nereida (more content not included)... Normal [facility] CT ABD/PEL W IVCONon 025 CT ABD/PEL W IVCON * * *Final Report* * * DATE OF EXAM: Jul 19 2024 1:05PM [facility] 0530 - CT ABD/PEL W IVCON / PROCEDURE REASON: RUQ pain * * * * Physician Interpretation * * * * EXAMINATION: CT ABDOMEN AND PELVIS WITH IV CONTRAST CLINICAL HISTORY: RUQ pain TECHNIQUE: CT of the abdomen and pelvis was performed using standard technique, scanning from just above the dome of the diaphragm to the symphysis pubis. MQ: CTAP_3 Contrast: IV: 100 ml of Omnipaque 350 : ml of CT Radiation dose: Integrated Dose-length product (DLP) for this visit = 1287 mGy*cm. CT Dose Reduction Employed: Automated exposure control(AEC) and iterative recon COMPARISON: CT abdomen pelvis 09/11/2023 RESULT: Liver: No mass. Biliary: No bile duct dilation. Gallbladder is unremarkable. Spleen: Stable 1 cm hypodense lesion in the spleen, probably representing cyst. No splenomegaly. Pancreas: No mass or duct dilation. Adrenals: No mass. Kidneys: Hypodense right renal lesion likely represent cyst. No hydronephrosis or calculus. GI tract: No dilation. There is bowel thickening and surrounding fat stranding in the ascending colon. Normal appendix. Mild diverticulosis. Lymph nodes: No abdominal or pelvic lymphadenopathy. Mesentery/Peritoneum: No ascites or mass. Retroperitoneum: No mass. Vasculature: - Abdominal aorta and iliac arteries: No aneurysm. - Celiac and SMA: Patent without stenosis. - Portal venous system (SMV, splenic vein, portal vein and branches): Patent. - Hepatic veins: Patent. Pelvis: No mass, ascites or fluid collection. IUD in stable position. Bones/Soft Tissues: Degenerative changes. Lower thorax: Unremarkable. Localizer images: No additional findings. IMPRESSION: Bowel wall thickening and adjacent fat stranding in the ascending colon especially at hepatic flexure, which likely represent colitis. Tax Analyst: PSCB Transcribe Date/Time: Jul 19 2024 1:14P Dictated by : SHAHAB ERWIN MD This examination was interpreted and the report reviewed and electronically signed by: SHAHAB ERWIN MD on Jul 19 2024 1:22PM EST [id number] Normal [facility] Comprehensive metabolic 2000 panelon 07-19-2024 Albumin [Mass/Vol] 3.7 g/dL Low 3.9-4.9 [facility] Comment on above: Order Comment: Speci men Type: BLOOD SPECIMEN Ordering Facility: [facility] Address: [address] [place] [address] Performed By: #### L [id number] #### [facility] CLIA [id number] [address] OF [facility] ALP [Catalytic activity/Vol] 122 U/L Normal 34-123 [facility] Comment on above: Order Comment: Speci men Type: BLOOD SPECIMEN Ordering Facility: [facility] Address: [address] [place] [address] Performed By: #### L [id number] #### [facility] CLIA [id number] [address] STATES OF [facility] ALT With P-5'-P [Catalytic activity/Vol] 21 U/L Normal 7-38 [facility] Comment on above: Order Comment: Speci men Type: BLOOD SPECIMEN Ordering Facility: [facility] Address: [address] [place] [address] Performed By: #### L [id number] #### [facility] CLIA [id number] [address] STATES [facility] Anion gap [Moles/Vol] 10 mmol/L Normal 8-15 [facility] Comment on above: Order Comment: Speci men Type: BLOOD SPECIMEN Ordering Facility: [facility] Address: [address] [place] [address] Performed By: #### L [id number] #### [facility] CLIA [id number] [address] [place] AST With P-5'-P [Catalytic activity/Vol] 17 U/L Normal 13-35 [facility] Comment on above: Order Comment: Speci men Type: BLOOD SPECIMEN Ordering Facility: [facility] Address: [address] [place] [address] Performed By: #### L [id number] #### [facility] CLIA [id number] [address] [place] Bilirubin [Mass/Vol] 0.3 mg/dL Normal 0.2-1.3 [facility] Comment on above: Order Comment: Speci men Type: BLOOD SPECIMEN Ordering Facility: [facility] Address: [address] [place] [address] Performed By: #### L [id number] #### [facility] CLIA [id number] [address] [place] Calcium [Mass/Vol] 8.6 mg/dL Normal 8.5-10.2 [facility] Comment on above: Order Comment: Speci men Type: BLOOD SPECIMEN Ordering Facility: [facility] Address: [address] [place] [address] Performed By: #### L [id number] #### [facility] CLIA [id number] [address] [place] Chloride [Moles/Vol] 101 mmol/L Normal 98-107 [facility] Comment on above: Order Comment: Speci men Type: BLOOD SPECIMEN Ordering Facility: [facility] Address: [address] [place] [address] Performed By: #### L [id number] #### [facility] CLIA [id number] 1 [place] [address] [place] CO2 [Moles/Vol] 25 mmol/L Normal 22-30 [facility] Comment on above: Order Comment: Speci men Type: BLOOD SPECIMEN Ordering Facility: [facility] Address: [address] [place] [address] Performed By: #### L [id number] #### [facility] CLIA [id number] [address] [place] Creatinine [Mass/Vol] 0.68 mg/dL Normal 0.58-0.96 [facility] Comment on above: Order Comment: Ulises walsh Type: BLOOD SPECIMEN Ordering Facility: [facility] Address: [address] [place] [address] Performed By: #### L [id number] #### [facility] CLIA [id number] [address] Creatinine and Glomerular filtration rate.predicted panel (S/P/Bld) 108 mL/min/1.73m??? Normal >=60 [facility] Comment on above: Order Comment: Ulises walsh Type: BLOOD SPECIMEN Ordering Facility: [facility] Address: [address] [place] [address] Result Comment: Tsering mated Glomerular Filtration Rate (eGFR) is calculated using the 2020 CKD-EPI creatinine equation. This equation utilizes serum creatinine, sex, and age as parameters. The creatinine assay has traceable calibration to isotope dilution-mass spectrometry. Refer to KDIGO guidelines for clinical interpretation. In patients with unstable renal function, e.g. those with acute kidney injury, the eGFR may not accurately reflect actual GFR. Performed By: #### L [id number] #### [facility] CLIA [id number] [address] [place] [address] OF [facility] Glucose [Mass/Vol] 131 mg/dL High 74-99 [facility] Comment on above: Order Comment: Ulises walsh Type: BLOOD SPECIMEN Ordering Facility: [facility] Address: [address] [place] [address] Result Comment: The [place] Diabetes Association (ADA) provides guidance for cutoff values for fasting glucose and random glucose. The ADA defines fasting as no caloric intake for at least 8 hours. Fasting plasma glucose results between 100 to 125 mg/dL indicate increased risk for diabetes (prediabetes). Fasting plasma glucose results greater than or equal to 126 mg/dL meet the criteria for diagnosis of diabetes. In the absence of unequivocal hyperglycemia, results should be confirmed by repeat testing. In a patient with classic symptoms of hyperglycemia or hyperglycemic crisis, random plasma glucose results greater than or equal to 200 mg/dL meet the criteria for diagnosis of diabetes. Reference: Standards of Medical Care in Diabetes 2016, [place] [employer]. Diabetes Care. 2016.39(Suppl 1). Performed By: #### L [id number] #### [facility] CLIA [id number] [address] Potassium [Moles/Vol] 3.9 mmol/L Normal 3.7-5.1 [facility] Comment on above: Order Comment: Speci men Type: BLOOD SPECIMEN Ordering Facility: [facility] Address: [address] [place] [address] Performed By: #### L [id number] #### [facility] CLIA [id number] [address] STATES [facility] Protein [Mass/Vol] 6.7 g/dL Normal 6.3-8.0 [facility] Comment on above: Order Comment: Speci men Type: BLOOD SPECIMEN Ordering Facility: [facility] Address: [address] [place] [address] Performed By: #### L [id number] #### [facility] CLIA [id number] [address] Sodium [Moles/Vol] 136 mmol/L Normal 136-144 [facility] Comment on above: Order Comment: Speci men Type: BLOOD SPECIMEN Ordering Facility: [facility] Address: [address] [place] [address] Performed By: #### L [id number] #### [facility] CLIA [id number] [address] Urea nitrogen [Mass/Vol] 9 mg/dL Normal 7-21 [facility] Comment on above: Order Comment: Speci men Type: BLOOD SPECIMEN Ordering Facility: [facility] Address: [address] [place] [address] Performed By: #### L [id number] #### [facility] CLIA [id number] [address] [place] ECG COMPLETEon 07-19-2024 ECG COMPLETE Ventricular Rate : 7 7 BPM Atrial Rate : 77 BPM P-R Interval : 154 ms QRS Duration : 86 ms Q-T Interval : 394 ms QTC Calculation(Bazett) : 445 ms Calculated P Pl[place] : 5 degrees Calculated R Plano : 17 degrees Calculated T Plano : 86 degrees NORMAL SINUS RHYTHM NORMAL ECG WHEN COMPARED WITH ECG OF 15-Mar-2022 18:35, NO SIGNIFICANT CHANGE WAS FOUND Confirmed by MD GUTIERREZ CAROL ([id number]) on 07/19/2024 6:53:19 PM NAME : PAUL DAVENPORT PID : [id number] : 1975 Gender : Female Race : ORD : [id number] Procedure Date : Jul 19 2024 09:17:23 Edit Date : Jul 19 2024 18:53:23 Diagnosis: NORMAL SINUS RHYTHM NORMAL ECG WHEN COMPARED WITH ECG OF 15-Mar-2022 18:35, NO SIGNIFICANT CHANGE WAS FOUND Confirmed by MD GUTIERREZ CAROL ([id number]) on 07/19/2024 6:53:19 PM Test Reason : Chest Pain Location : 4 : [facility] Overread By : MD GUTIERREZ CAROL Edited By : MD GUTIERREZ CAROL Referred By : , Acquired by : ARSEN MARCELO [facility] ED NOTEon 07-19-2024 ED NOTE HNO ID: [id number] Author: HAIDER ABDI RN Service: Emergency Medicine Author Type: Registered Nurse Type: ED Notes Filed: 07/19/2024 18:50 Note Text: Patient requests IV to be removed as her ride is here. Aware she has a room in the hospital but patient insists on leaving now. Unwilling to wait for physician to discuss AMA with her. [facility] ED NOTE HNO ID: [id number] Author: HAIDER ABDI RN Service: Emergency Medicine Author Type: Registered Nurse Type: ED Notes Filed: 07/19/2024 18:51 Note Text: Patient at middle nursing station requesting discharge. [facility] ED NOTE HNO ID: [id number] Author: HAIDER ABDI, NORBERTO Service: Emergency Medicine Author Type: Registered Nurse Type: ED Notes Filed: 07/19/2024 18:39 Note Text: Dr. Valladares notified of patient's request to leave. Patient will be leaving AMA. [facility] ED NOTE HNO ID: [id number] Author: HAIDER ABDI, NORBERTO Service: Emergency Medicine Author Type: Registered Nurse Type: ED Notes Filed: 07/19/2024 18:38 Note Text: Offered patient Ativan as she seems anxious. Patient declined and insists on discharge. Admitting team paged. [facility] ED NOTE HNO ID: [id number] Author: HAIDER ABDI, NORBERTO Service: Emergency Medicine Author Type: Registered Nurse Type: ED Notes Filed: 07/19/2024 18:37 Note Text: Patient sitting at bedside, asks Is it too late to leave? Informed patient she has a room on 4100. Patient insists on leaving AMA. . [facility] ED NOTE HNO ID: [id number] Author: HAIDER ABDI, NORBERTO Service: Emergency Medicine Author Type: Registered Nurse Type: ED Notes Filed: 07/19/2024 18:34 Note Text: Dinner tray given to patient. [facility] ED NOTE HNO ID: [id number] Author: HAIDER ABDI, NORBERTO Service: Emergency Medicine Author Type: Registered Nurse Type: ED Notes Filed: 07/19/2024 17:08 Note Text: Patient complains of chest tightness and feeling like she isn't emptying her bladder. Dr. Pratt aware and repeat EKG ordered. [facility] ED NOTE HNO ID: [id number] Author: HAIDER ABDI RN Service: Emergency Medicine Author Type: Registered Nurse Type: ED Notes Filed: 07/19/2024 12:15 Note Text: CT notified patient ready with xray after [facility] ED NOTE HNO ID: [id number] Author: MALINI LEYVA RN Service: ? Author Type: Registered Nurse Type: ED Notes Filed: 07/19/2024 12:02 Note Text: Bed: 37-ED Expected date: Expected time: Means of arrival: Comments: Squad 13 [facility] ED PROV NOTEon 07-19-2024 ED PROV NOTE HNO ID: [id number] Author: REGINO GUTIERREZ MD Service: Emergency Medicine Author Type: Physician Type: ED Provider Notes Filed: 07/19/2024 18:43 Note Text: This patient was admitted to [facility] and then signed out to me by Dr. Morin. I was informed by the patient's nurse that she no longer wished to stay. The [facility] hospitalist was informed of the patient's desire to leave AGAINST MEDICAL ADVICE, and they will be responsible for assessment the patient and documentation of her actions as she has been admitted for several hours with admitting orders written. REGINO GUTIERREZ 07/19/24 1843 Normal [facility] ED PROV NOTE HNO ID: [id number] Author: FAUSTINO MORIN MD Service: Emergency Medicine Author Type: Physician Type: ED Provider Notes Filed: 07/20/2024 09:09 Note Text: ED Provider Note Patient Name: Paul Davenport : 1975 SERVICE DATE: 07/19/24 History Patient presents with: Edema: Patient c/o retaining fluid everywhere. Patient states was at [place] ED twice and was sent home on lasix but it is not helping. Patient also c/o groin and RUQ abdomen patient from 2 hernias. -CP +chest tightness +unable to lie flat to sleep -N/V +D +SOB 49-year-old female with a history of aortic stenosis, asthma, sleep apnea presented to the emergency department for shortness of breath and swelling. She states that it has been getting worse over the past week. She states it is difficult to breathe especially when lying flat. She also endorses worsening swelling in the legs. She states that she has been taking her Lasix daily but feels like it does not help. She explained that she sees Dr. Ca and when she contacted their office she was told to come in. She also endorses some chest pressure and it has been going on for a week in the center of her chest that is nonradiating. In addition to this, she is endorsing some right lower quadrant or right upper quadrant abdominal pain without any nausea or vomiting or diarrhea. Denies any recent fevers or chills. 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 Insomnia, unspecified Iron deficiency anemia 09/25/2023 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/2023 Major depressive disorder, single episode, mild Migraine stable with propranolol Nontoxic uninodular goiter Osteoarthritis of multiple joints Partial rectal prolapse RP (rectal prolapse) ~2012 Sleep apnea Tobacco abuse PAST SURGICAL HISTORY Procedure Laterality Date ABDOMINAL SURGERY HX COLON SURGERY HX 2019 rectal prolapse COLONOSCOPY 11/16/2014, 12/2017 No polyps/ severe diarrhea and prolapse CORRECT RECTAL PROLAPSE CT ABD/PELVIS WO CONTRAST PANEL 11/[address] COR/SAG/SINUS/BRAIN/HEAD 12/2005 normal DEBRIDEMENT MUSCLE AND FASCIA 20 SQ CM/< 11/03/2007 DEBRIDEMENT ULCER EXTREMITY LOWER performed by [facility] at [facility] ECHO EXAM OF HEART 09/2000 bicuspid AV, minor AI, mild EGD 01/1999 small hiatal hernia EGD 01/2004 EGD 02/2007 mild gastritis EGD 11/16/2014 EGD 08/02/2022 ENDOSCOPY PROC 10/22/2019 LA grade A reflux esophagitis, Normal stomach, Normal duodenum HOLTER MONITOR 24 HOUR 04/2003 normal INSERT INTRAUTERINE DEVICE 02/2015 Mirena LAPAROSCOPY DIAGNOSTIC age 24, 26 endometriosis, cysts removed MRI BRAIN 05/2003 normal SIGMOIDOSCOPY 01/1999 normal TONSILLECTOMY PRIMARY/SECONDARY Tonsillectomy FAMILY HISTORY Problem Relation Age of Onset Arthritis Mother other (lymphoma) Mother 54 other (CHF) Mother Heart Mother Diabetes Mother Arthritis Father Diabetes Father Thyroid Sister No Known Problems Sister Heart Attack Maternal Grandmother Cancer Maternal Grandfather Cancer Paternal Grandmother leukemia Cancer Maternal Uncle Breast Cancer Other paternal cousin Colon Cancer No Family History Ovarian cancer No Family History Anesthesia Problems No Family History Blood Clots No Family History Social History Tobacco Use Smoking status: Every Day Current packs/day: 0.75 Average packs/day: 0.8 packs/day for 20.0 years (15.0 ttl pk-yrs) Types: Cigarettes Smokeless tobacco: Never Tobacco comments: trying to quit Vaping Use Vaping status: Never Used Substance and Sexual Activity Alcohol use: Not Currently Comment: less than once a month/2 beers Drug use: Not Currently Types: Marijuana Comment: helps stomach, rare Sexual activity: Not Currently Partners: Male control/protection: I.U.D. ALLERGIES Allergen Reactions Dust extreme coughing, dry hives Metformin Other: See Comments Review of Systems Physical Exam Vitals [07/19/24 0914] BP Pulse Temp Temp src Resp SpO2 Weight Height 106/79 76 36.8 ?C (98.2 ?F) Oral 20 97 % 126.1 kg (278 lb) 1.626 m (5' 4) Physical Exam Vitals and nursing note reviewed. Constitutional: General: She is not in acute distress. Appearance: She is ill-appearing. She is not toxic-appearing. HENT: Head: Normocephalic and atraumatic. Nose: Congestion present. No rhin (more content not included)... Normal [facility] EKGon 07-19-2024 Electrocardiogram Ventricular Rate : 8 9 BPM Atrial Rate : 89 BPM P-R Interval : 146 ms QRS Duration : 84 ms Q-T Interval : 384 ms QTC Calculation(Bazett) : 467 ms Calculated P Plano : 48 degrees Calculated R Plano : 39 degrees Calculated T Plano : -24 degrees NORMAL SINUS RHYTHM INFERIOR INFARCT , AGE UNDETERMINED ABNORMAL ECG WHEN COMPARED WITH ECG OF 19-Jul-2024 09:17, INFERIOR INFARCT IS NOW PRESENT T WAVE INVERSION NOW EVIDENT IN INFERIOR LEADS Confirmed by MD GUTIERREZ CAROL ([id number]) on 07/19/2024 6:53:42 PM NAME : PAUL DAVENPORT PID : [id number] : 1975 Gender : Female Race : ORD : Procedure Date : Jul 19 2024 16:38:11 Edit Date : Jul 19 2024 18:53:46 Diagnosis: NORMAL SINUS RHYTHM INFERIOR INFARCT , AGE UNDETERMINED ABNORMAL ECG WHEN COMPARED WITH ECG OF 19-Jul-2024 09:17, INFERIOR INFARCT IS NOW PRESENT T WAVE INVERSION NOW EVIDENT IN INFERIOR LEADS Confirmed by MD GUTIERREZ CAROL ([id number]) on 07/19/2024 6:53:42 PM Test Reason : Location : 4 : [place] Overread By : MD GUTIERREZ CAROL Edited By : MD GUTIERREZ CAROL Referred By : , Acquired by : MARIO GUADARRAMA Normal [facility] HIGH SENSITIVITY TROPONIN To n 07-19-2024 Troponin T.cardiac High sensitivity method [Mass/Vol] 10 ng/L Normal <12 [facility] Comment on above: Order Comment: Speci men Type: BLOOD SPECIMEN Ordering Facility: [facility] Address: [address] [place] [address] Performed By: #### L [id number] #### [facility] CLIA [id number] [address] HIGH SENSITIVITY TROPONIN T (INITIAL)on 07-19-2024 Troponin T.cardiac High sensitivity method [Mass/Vol] 9 ng/L Normal <12 [facility] Comment on above: Order Comment: Speci men Type: BLOOD SPECIMEN Ordering Facility: [facility] Address: [address] [place] [address] Performed By: #### L [id number] #### [facility] CLIA [id number] [address] HIGH SENSITIVITY TROPONIN T (SECOND)on 07-19-2024 Troponin T.cardiac High sensitivity method [Mass/Vol] 9 ng/L Normal <12 [facility] Comment on above: Order Comment: Speci men Type: BLOOD SPECIMEN Ordering Facility: [facility] Address: [address] [place] [address] Performed By: #### L [id number] #### [facility] CLIA [id number] [address] HISTORY PHYSICALon HISTORY PHYSICAL HNO ID: [id number] Author: JOSÉ LUIS VALLADARES DO Service: Hospital Medicine Author Type: Physician Type: H&P Filed: 07/19/2024 16:25 Note Text: DEPARTMENT OF HOSPITAL MEDICINE HISTORY AND PHYSICAL EXAM SERVICE DATE: 07/19/2024 SERVICE TIME: 3:40 PM Primary Care Physician: Vasquez Brush APRN.SCHOLARSHIP COUNSELOR NIGHT AND WEEKEND COVERAGE: [place] COVERAGE: After 7pm, please call cross cover pager #[phone] Subjective CHIEF COMPLAINT: retaining fluid for past week HPI: This is a 49 year old female who presents with retaining fluid for past week. Going on before starting her abilify. Swelling all over. She was having tightness in her chest for the same period of time. Pain in her abdomen after having diarrhea yest. States that this isn't uncommon for her if she has an episode of diarrhea. AALMO and orthopnea. No blood in stool or black stools. Poor appetite. Early satiety. Freezing but no fevers. 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 Insomnia, unspecified Iron deficiency anemia 09/25/2023 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/2023 Major depressive disorder, single episode, mild Migraine stable with propranolol Nontoxic uninodular goiter Osteoarthritis of multiple joints Partial rectal prolapse RP (rectal prolapse) ~2012 Sleep apnea Tobacco abuse PAST SURGICAL HISTORY Procedure Laterality Date ABDOMINAL SURGERY HX COLON SURGERY HX 2019 rectal prolapse COLONOSCOPY 11/16/2014, 12/2017 No polyps/ severe diarrhea and prolapse CORRECT RECTAL PROLAPSE CT ABD/PELVIS WO CONTRAST PANEL 11/[address] COR/SAG/SINUS/BRAIN/HEAD 12/2005 normal DEBRIDEMENT MUSCLE AND FASCIA 20 SQ CM/< 11/03/2007 DEBRIDEMENT ULCER EXTREMITY LOWER performed by [facility] FLOOD at [facility] E[facility] EXAM OF HEART 09/2000 bicuspid AV, minor AI, mild EGD 01/1999 small hiatal hernia EGD 01/2004 EGD 02/2007 mild gastritis EGD 11/16/2014 EGD 08/02/2022 ENDOSCOPY PROC 10/22/2019 LA grade A reflux esophagitis, Normal stomach, Normal duodenum HOLTER MONITOR 24 HOUR 04/2003 normal INSERT INTRAUTERINE DEVICE 02/2015 Mirena LAPAROSCOPY DIAGNOSTIC age 24, 26 endometriosis, cysts removed MRI BRAIN 05/2003 normal SIGMOIDOSCOPY 01/1999 normal TONSILLECTOMY PRIMARY/SECONDARY Tonsillectomy FAMILY HISTORY Problem Relation Age of Onset Arthritis Mother other (lymphoma) Mother 54 other (CHF) Mother Heart Mother Diabetes Mother Arthritis Father Diabetes Father Thyroid Sister No Known Problems Sister Heart Attack Maternal Grandmother Cancer Maternal Grandfather Cancer Paternal Grandmother leukemia Cancer Maternal Uncle Breast Cancer Other paternal cousin Colon Cancer No Family History Ovarian cancer No Family History Anesthesia Problems No Family History Blood Clots No Family History Social History Tobacco Use Smoking status: Every Day Current packs/day: 0.75 Average packs/day: 0.8 packs/day for 20.0 years (15.0 ttl pk-yrs) Types: Cigarettes Smokeless tobacco: Never Tobacco comments: trying to quit Vaping Use Vaping status: Never Used Substance Use Topics Alcohol use: Not Currently Comment: less than once a month/2 beers Drug use: Not Currently Types: Marijuana Comment: helps stomach, rare MEDICATIONS: Reviewed Prior to Admission Medications Prescriptions Last Dose Informant Patient Reported? Taking? ARIPiprazole (ABILIFY) 10 mg tablet Yes No Sig: Take 1 tab by mouth once a day in the morning for agitation FLUoxetine (PROZAC) 40 mg capsule No No Sig: Take 2 capsules by mouth once daily. LASIX 40 mg tablet No No Sig: Take 1 tablet by mouth once daily. LORazepam (ATIVAN) 1 mg tablet Yes No Si mg. Pregabalin (LYRICA) 200 mg capsule No No Sig: Take 1 capsule by mouth two times a day for 30 days. SUMAtriptan (IMITREX) 50 mg tablet No No Sig: Take 1 tablet (50 mg) by mouth as needed for migraine headache (see administration instructions). May repeat dose after 2 hours if needed. Maximum daily dose is 200 mg per day. albuterol HFA (PROVENTIL HFA, VENTOLIN HFA) 90 mcg/actuation inhaler No No Sig: Inhale 2 puffs as instructed every 4 hours as needed for wheezing/shortness of breath. aspirin 325 mg tablet No No Sig: Take 1 tablet by mouth once daily. Patient should start on June 09, 2024. cholecalciferol (VITAMIN D3) 1,000 unit tab tablet No No Sig: Take 2 tablets by (more content not included)... Normal [facility] Lipase SerPl-cCncon 07-20-19 25 Lipase [Catalytic activity/Vol] 16 U/L Normal 16 [facility] Comment on above: Order Comment: Speci men Type: BLOOD SPECIMEN Ordering Facility: [facility] Address: [address] [place] [address] Performed By: #### L [id number] #### [facility] CLIA [id number] [address] [facility] 07-19 Natriuretic peptide.B prohormone N-Terminal [Mass/Vol] 344 pg/mL High <125 [facility] Comment on above: Order Comment: Speci men Type: BLOOD SPECIMEN Ordering Facility: [facility] Address: [address] [place] [address] Performed By: #### L [id number] #### [facility] CLIA [id number] [address] XR CHEST 2V FRONTAL/LATon XR CHEST 2V FRONTAL/LAT * * *Final Report* * * DATE OF EXAM: Jul 19 2024 1:05PM [id number] [id number] - XR CHEST 2V FRONTAL/LAT / PROCEDURE REASON: Shortness of breath * * * * Physician Interpretation * * * * EXAMINATION: CHEST RADIOGRAPH (2 VIEW FRONTAL and LATERAL) CLINICAL HISTORY: Shortness of breath MQ: [id number] EXAM DATE/TIME: 07/19/2024 1:05 PM COMPARISON: 06/27/2024 RESULT: Lines, tubes, and devices: None. Lungs and pleura: No consolidation. No lung mass. No pleural effusion. No pneumothorax. Cardiomediastinal silhouette: Normal cardiomediastinal silhouette. Bones and soft tissues: Unremarkable. IMPRESSION: No acute radiographic abnormality. Tax Analyst: PEYMAN Transcribe Date/Time: Jul 19 2024 1:27P Dictated by : KEITH HOWARD MD This examination was interpreted and the report reviewed and electronically signed by: KEITH HOWARD MD on Jul 19 2024 1:27PM EST [id number] Normal [facility] CNPMonet 07-15-2024 CNPN Telephone (AGFAMPLE) -------- PAUL DAVENPORT ([id number]) 1975 F Date Time Provider Department 07/15/24 VASQUEZ BRUSH During your visit today, we recorded the following information about you: Rosemary Arteaga MA 07/15/2024 7:53 AM Signed Please resend lasix to pharmacy with diagnosis attached for pharmacy to cover the meds. Thank you. Rosemary WorkmankimberlyJENIFER Kristin C, APRN.[facility] 07/15/2024 5:41 PM Signed New Rx sent Vasquez Brush APRN.[facility] 07/15/2024 5:41 PM Signed Addended by: VASQUEZ BRUSH on: 07/15/2024 05:41 PM Modules accepted: Orders Rosemary ArteagaJENIFER 07/16/2024 7:33 AM Signed Received fax that lasix will be approved with furosemide . Please send with dx. Thanks. Rosemary WorkmankimberlyJENIFER Kristin C, APRN.[facility] 07/18/2024 1:13 PM Signed Insurance will not approve name brand Lasix Vasquez Brush APRN.[facility] Rosemary ArteagaJENIFER 07/18/2024 1:22 PM Signed Lm on pt. Vm to call back to see if she wants to pay out of pocket or us to send generic. JENIFER HansonRosemary harrisJENIFER 07/18/2024 3:18 PM Signed My chart message sent. Rosemary WorkmankimberlyJENIFER Allergies As of Date: 07/15/2024 Noted Allergy Reaction DUST 01/27/2009 Comments: extreme coughing, dry hives METFORMIN 04/09/2023 14 - Other: See Comments Date Reviewed: 07/12/2024 Reviewed by: Vasquez Brush APRN.SCHOLARSHIP COUNSELOR - Fully Assessed Reason for Visit: Medication Problem [65] Primary Visit Diagnosis:Water retention [R60.9] Other Visit Diagnosis:Aortic valve stenosis, etiology of cardiac valve disease unspecified [I35.0] Order(s):LASIX 40 mg tabletTake 1 tablet by mouth once daily.Disp: 90 tabletRfl: 1 Prescriptions as of 07/18/2024 - LASIX 40 mg tablet Take 1 tablet by mouth once daily. - ibuprofen (MOTRIN) 800 mg tablet Take 1 tablet by mouth every 8 hours as needed for pain. - fluticasone-salmeterol (WIXELA INHUB) 250-50 mcg/dose inhaler Inhale 1 puff as instructed two times a day. - methocarbamol (ROBAXIN) 500 mg tablet Take 1 tablet by mouth two times a day as needed. - ARIPiprazole (ABILIFY) 10 mg tablet Take 1 tab by mouth once a day in the morning for agitation - Pregabalin (LYRICA) 200 mg capsule Take 1 capsule by mouth two times a day for 30 days. - aspirin 325 mg tablet Take 1 tablet by mouth once daily. Patient should start on June 09, 2024. - propranolol (INDERAL) 20 mg tablet Take 1 tablet by mouth two times a day. - FLUoxetine (PROZAC) 40 mg capsule Take 2 capsules by mouth once daily. - esomeprazole (NEXIUM) 40 mg capsule Take 1 capsule by mouth two times a day. - albuterol HFA (PROVENTIL HFA, VENTOLIN HFA) 90 mcg/actuation inhaler Inhale 2 puffs as instructed every 4 hours as needed for wheezing/shortness of breath. - fluticasone (FLONASE) 50 mcg/actuation nasal spray Use 1 spray in each nostril once daily. - SUMAtriptan (IMITREX) 50 mg tablet Take 1 tablet (50 mg) by mouth as needed for migraine headache (see administration instructions). May repeat dose after 2 hours if needed. Maximum daily dose is 200 mg per day. - polyethylene glycol 3350 (MIRALAX) 17 gram packet Take 17 g by mouth once daily. Dissolve dose in 4 - 8 ounces of liquid and take as directed. - LORazepam (ATIVAN) 1 mg tablet 1 mg. - cholecalciferol (VITAMIN D3) 1,000 unit tab tablet Take 2 tablets by mouth once daily. - levonorgestrel (MIRENA) 20 mcg/24 hr (5 years) IUD 1 Each by INTRAUTERINE route one time only. Problem List As Of Date 07/15/2024 Noted Resolved Bicuspid AV/AI.. 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] 07/31/2001 02/09/2017 Depressive disorder, not elsewhere classified [*07/31/2001 12/21/2015 Endometriosis of other specified sites [N80.8] 07/31/2001 02/09/2017 ESOPHAGEAL REFLUX [K21.9] 07/31/2001 5.2.1 CHRONIC POST TRAUMA H/A W/ MINOR HEAD TRA*05/19/2003 02/09/2017 Allergic Rhinitis [J30.9] 03/05/2009 Bulimia nervosa, unspecified severity [F50.20] 04/08/2009 Vitamin B12 Deficiency [E53.8] 06/23/2009 Dysmenorrhea [N94.6] Routine gynecological examination [Z01.419] 10/23/2012 02/09/2017 Tobacco abuse [Z72.0] 05/11/2021 History of endometriosis [Z87.42] 01/28/2015 Moderate episode of recurrent major depressive *12/21/2015 Raynaud's disease without gangrene [I73.00] 01/14/2016 Fibromyalgia [M79.7] 01/17/2016 Migraine without aura and without status migrai*01/17/2016 Encounter for monitoring proton pump inhibitor *02/09/2017 05/11/2021 Bicuspid aortic valve [Q23.81] 02/09/2017 Obesity, Class I, BMI 30-34.9 [E66.811] 02/09/2017 05/11/2021 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 Normal [facility] Doreen 07-10-2024 BEAU Telephone (COREEN) -------- ETHELPAUL ([id number]) 1975 F Date Time Provider Department 07/10/24 VASQUEZ BRUSH During your visit today, we recorded the following information about you: Jefe Mclean MA 07/10/2024 2:45 PM Signed Patient left message stating she is retaining water really bad and her lasix is not working, she is in pain and her chest is so tight it feels like she is going to have a heart attack. States she has already been to the ER twice and she cannot wait until her solar manager appointment. Would like a different water pill sent in today. Please advise. JENIFER Beltran Brenda, LPN 07/10/2024 3:00 PM Addendum Pt called office. Per pt her whole body is swollen. Per pt her feet are swollen really bad. Per pt her shortness of breath has not changed. Pt states that she has chest tightness. Per pt she has been to the ER 2 times and they have not helped. Per pt she did take Lasix 40 mg today, but has not helped. Pt took the lasix around 10-11 am today. Pt states that she is not urinating as much as she should be. Pt is asking for a different water pill. If new script to be sent in, please send to [facility]. (This is in pt's chart) Please advise LASHON Harding Kimberly C, DO 07/10/2024 3:10 PM Signed Please notify pt there is no water pill better than lasix. If she is feeling swollen, she can take 2 lasix per day for 5 days and see if that helps DO Paula Dueñas Kimberly C, DO 07/10/2024 3:10 PM Signed Addended by: CRYSTAL GABRIEL on: 07/10/2024 03:10 PM Modules accepted: Callie Villafana LPN 07/10/2024 3:43 PM Signed Call placed to pt, advised of recommendations in this note. Pt states that the generic lasix is not helping. Pt states that she does not know what to do. She was wondering about name brand Lasix but is aware that the insurance may not cover it. Pt then asked if she could take an additional 20 mg today to equal 60 mg today. Per pt she has not one to help her and the ER is not the answer. Please advise LASHON Harding Kimberly C, DO 07/10/2024 3:47 PM Signed I called pt to clarify the plans. She took a lasix 40 mg today. I advised her to take 2 of the 20 mg tablets for the next 4 days, for 5 days total. She will be seeing the solar manager on 07/23, but advised her to call us on Sunday if this plan does not help her swelling Crystal Gabriel DO Allergies As of Date: 07/10/2024 Noted Allergy Reaction DUST 01/27/2009 Comments: extreme coughing, dry hives METFORMIN 04/09/2023 14 - Other: See Comments Date Reviewed: 06/27/2024 Reviewed by: Rosemary Arteaga MA - Fully Assessed Reason for Visit: Patient Question [1477] Prescriptions as of 07/10/2024 - ibuprofen (MOTRIN) 800 mg tablet Take 1 tablet by mouth every 8 hours as needed for pain. - furosemide (LASIX) 20 mg tablet Take 1 tablet by mouth once daily. - fluticasone-salmeterol (WIXELA INHUB) 250-50 mcg/dose inhaler Inhale 1 puff as instructed two times a day. - methocarbamol (ROBAXIN) 500 mg tablet Take 1 tablet by mouth two times a day as needed. - ARIPiprazole (ABILIFY) 10 mg tablet Take 1 tab by mouth once a day in the morning for agitation - Pregabalin (LYRICA) 200 mg capsule Take 1 capsule by mouth two times a day for 30 days. - aspirin 325 mg tablet Take 1 tablet by mouth once daily. Patient should start on June 09, 2024. - propranolol (INDERAL) 20 mg tablet Take 1 tablet by mouth two times a day. - FLUoxetine (PROZAC) 40 mg capsule Take 2 capsules by mouth once daily. - esomeprazole (NEXIUM) 40 mg capsule Take 1 capsule by mouth two times a day. - albuterol HFA (PROVENTIL HFA, VENTOLIN HFA) 90 mcg/actuation inhaler Inhale 2 puffs as instructed every 4 hours as needed for wheezing/shortness of breath. - fluticasone (FLONASE) 50 mcg/actuation nasal spray Use 1 spray in each nostril once daily. - SUMAtriptan (IMITREX) 50 mg tablet Take 1 tablet (50 mg) by mouth as needed for migraine headache (see administration instructions). May repeat dose after 2 hours if needed. Maximum daily dose is 200 mg per day. - polyethylene glycol 3350 (MIRALAX) 17 gram packet Take 17 g by mouth once daily. Dissolve dose in 4 - 8 ounces of liquid and take as directed. - LORazepam (ATIVAN) 1 mg tablet 1 mg. - cholecalciferol (VITAMIN D3) 1,000 unit tab tablet Take 2 tablets by mouth once daily. - levonorgestrel (MIRENA) 20 mcg/24 hr (5 years) IUD 1 Each by INTRAUTERINE route one time only. Problem List As Of Date 07/10/2024 Noted Resolved Bicuspid AV/AI.. 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 Normal [facility] ECHOon 07-08-2024 Echocardiography Echocardiography Rep ort: Transthoracic Echo [facility] Date of service: 07/08/2024 9:13:09 AM Ordering physician: VASQUEZ BRUSH Indication: Re-evaluation of known valvular heart disease with change in clinical status Technologist: Stephanie Mackenzie RDCS Nurse: Pb THORNTON Interpreting physician: Ruel Melton MD PATIENT: Name: MS. PAUL DAVENPORT : 1975 Age: 49 years Gender: F Primary rhythm: sinus. Height: 162.60 cm BSA: 2.39 m Weight: 126.10 kg BMI: 47.7 kg/m Heart rate 73 bpm Blood pressure 135/86 mmHg Color Doppler was utilized to interrogate the cardiac valves assessed and spectral Doppler was utilized to determine the flow velocities and pressure gradients reported in this exam. MEASUREMENTS: Value Indexed Normal Max aortic dimension 4.2 cm Ao < 3.8 Left atrium diameter 3.3 cm (2D) Left atrial volume 50 ml (biplane A-L) 21 ml/m Radha <= 34 LV ID (diastole) 4.6 cm (2D) 1.94 cm/m LV ID (systole) 2.6 cm (2D) 1.10 cm/m IVS, leaflet tips 1.2 cm (2D) Posterior wall thickness 1.1 cm (2D) Left ventricular mass 194 g (2D) 81 g/m LV stroke volume 110 ml (2D biplane) LV cardiac output 7.2 l/min (2D biplane) 3.0 l/min/m LVOT stroke volume 90 ml 40 ml/m LVOT cardiac output 6.5 l/min 2.9 l/min/m LV end diastolic volume 153 ml (2D biplane) 63.9 ml/m 29<=EDVi<62 LV end systolic volume 43 ml (2D biplane) 17.9 ml/m Ejection Fraction 72 % (2D biplane) EF > 54 FINDINGS: LEFT VENTRICLE The left ventricle is mildly dilated. There is mild left ventricular hypertrophy. Left ventricular systolic function is normal. Normal left ventricular diastolic function. Mitral annular lateral E/e': 9.9. Mitral annular septal E/e': 9.6. Definity contrast used for endocardial border detection. Wall Motion: All scored segments are normal. RIGHT VENTRICLE The right ventricle is normal in size. Right ventricular systolic function is normal. RV systolic tissue Doppler velocity is 13.7 cm/s. Tricuspid annular displacement is 2.8 cm. Estimated right ventricular systolic pressure is not reported due to an insufficient tricuspid regurgitation signal. Estimated right atrial pressure is not included as the IVC was not seen. LEFT ATRIUM The left atrial cavity is normal in size. RIGHT ATRIUM The right atrial cavity is normal in size. MITRAL VALVE The mitral valve leaflets are structurally normal. There is mild mitral annular calcification. There is trace mitral valve regurgitation. The pressure half time is 62 msec. The peak mitral E/A ratio is 1.10. The mitral flow deceleration time is 215 msec. TRICUSPID VALVE The tricuspid valve leaflets are structurally normal. There is trace tricuspid valve regurgitation. AORTIC VALVE The aortic valve was not seen or not interrogated. There is moderately severe aortic valve stenosis. There is no aortic valve regurgitation. There is mild thickening. The peak gradient is 62 mmHg (peak velocity = 394.7 cm/s). The mean gradient is 42 mmHg. The LVOT mean velocity is 98.7 cm/s. The LVOT diameter is 2.0 cm. The aortic VTI is 90.2 cm. The mean velocity in the aortic valve is 307.9 cm/s. The dimensionless valve index is 0.32. AV area is 1.00 cm (0.42 cm /m ) by continuity, VTI. The LVOT stroke volume index is 40 ml/m . PULMONIC VALVE The pulmonic valve was not seen or not interrogated. There is no pulmonic valve regurgitation. AORTA The visualized aorta is dilated. Measurements - Aortic valve annulus 2.0 cm. Sinus: 3.3 cm. Mid ascending aorta 4.2 cm. PULMONARY ARTERIES The pulmonary arteries are unseen or not interrogated. INTERATRIAL SEPTUM The interatrial septum is unseen or not interrogated. PERICARDIUM There is no pericardial effusion. There is an epicardial fat pad. CONCLUSIONS: - Exam indication: Re-evaluation of known valvular heart disease with change in clinical status - The left ventricle is mildly dilated. There is mild left ventricular hypertrophy. Left ventricular systolic function is normal. EF = 72 5% (2D biplane) Definity contrast used for endocardial border detection. - The right ventricle is normal in size. Right ventricular systolic function is normal. Tricuspid annular displacement is 2.8 cm. - The visualized aorta is dilated with a maximal dimension of 4.2 cm. - There is moderately severe aortic valve stenosis. AV area is 1.00 cm (0.42 cm /m ) by continuity, VTI. The peak gradient is 62 mmHg, the mean gradient is 42 mmHg and the dimensionless valve index is 0.32. - Exam was compared with the prior CC echocardiographic exam performed on 12/2023 - The prior study reported nml EF, AO 4.4cm, AV pk/mn 50/34mmHg, DI .41. Aortic stenosis has preogressed. * * * Final * * * [facility] : [id number] (more content not included)... Normal [facility] 07-02-2024 [facility] Telephone (AGCARDPOB ) -------- PAUL DAVENPORT ([id number]) 1975 F Date Time Provider Department 07/02/24 [place] WineDemonARDPOB During your visit today, we recorded the following information about you: Farheen Henao RN 07/02/2024 11:33 AM Signed Paul Davenport called in. She reports that her proBNP is elevated and she is retaining water. She has shortness of breath with chest tightness. Her PCP had her increase lasix 20 mg to twice daily for 2 days. Pt reports she did not have much increase in urine output. She state she has been to the ED for evaluation of chest tightness 7-810 and swelling, and states they didn't do anything to help. Is the shortness of breath at rest, with exertion or lying down? All the time How long has this been going on? 2 weeks Have you had any weight gain, LE edema or abdominal bloating? Does not check weights, edema in entire body Palpitations? No What is your heart rate/blood pressure? Doesn't know What is your most recent weight? 272 Are you taking your medications as prescribed, verify medications, doses and frequency. Reviewed. Currently taking prednisone. Farheen Henao RN Allergies As of Date: 07/02/2024 Noted Allergy Reaction DUST 01/27/2009 Comments: extreme coughing, dry hives METFORMIN 04/09/2023 14 - Other: See Comments Date Reviewed: 06/27/2024 Reviewed by: Rosemary Arteaga MA - Fully Assessed Reason for Visit: Patient Update [1234] Prescriptions as of 10/02/2024 - propranolol (INDERAL) 20 mg tablet Take 1 tablet by mouth two times a day. - nystatin (MYCOSTATIN) cream Apply to affected area two times a day. - torsemide (DEMADEX) 20 mg tablet Take one tablet twice a day for 3 days (8am and 1pm), THEN take 1 tablet once daily. - potassium chloride (K-TAB) 10 mEq tablet Take one tablet daily twice a day for 3 days, then once daily - esomeprazole (NEXIUM) 40 mg capsule Take 1 capsule by mouth two times a day. - fluticasone (FLONASE) 50 mcg/actuation nasal spray Use 2 sprays in each nostril once daily as needed for cold/allergy symptoms. - fluticasone-salmeterol (ADVAIR, WIXELA) 250-50 mcg/dose inhaler Inhale 1 puff as instructed two times a day. - Magnesium 250 mg tab Take 250 mg by mouth once daily. - thiamine (VITAMIN B1) 100 mg tablet Take 100 mg by mouth once daily. - ARIPiprazole (ABILIFY) 15 mg tablet Take 15 mg by mouth once daily. - levonorgestrel (MIRENA) 21 mcg/24hr (up to 8 yrs) 52 mg IUD 1 each by INTRAUTERINE route one time only. - acetaminophen (TYLENOL) 325 mg tablet 2 tablets by ORAL/FEEDING TUBE route every 4 hours as needed for pain. - clopidogrel (PLAVIX) 75 mg tablet Take 1 tablet by mouth once daily. - senna-docusate (SENNA-S) 8.6-50 mg per tablet Take 2 tablets by mouth two times a day. - albuterol HFA (PROVENTIL HFA, VENTOLIN HFA) 90 mcg/actuation inhaler Inhale 2 puffs as instructed every 4 hours as needed for wheezing/shortness of breath. - Aspirin 81 mg tab Take 81 mg by mouth once daily. - CoQ10, Liposomal Ubiquinol, (COQMAX UBIQUINOL) 200 mg cap Take 200 mg by mouth once daily. - iv contrast (will be provided with radiology test) CTA ABD/PEL - No IV access, insert saline lock prior to the sedation, infusion, injection for imaging exam. Discontinue saline lock post exam. If Pt. has a central line or IVAD, may access for administration according to line specific nursing protocol. Once exam is complete flush line and de-access according to line specific nursing protocol in the CT contrast administration guidelines link. - FLUoxetine (PROZAC) 40 mg capsule Take 2 capsules by mouth once daily. - LORazepam (ATIVAN) 1 mg tablet Take 1 mg by mouth once daily as needed for anxiety. - cholecalciferol (VITAMIN D3) 1,000 unit tab tablet Take 2 tablets by mouth once daily. Problem List As Of Date 07/02/2024 Noted Resolved Bicuspid AV/AI.. 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] 07/31/2001 02/09/2017 Depressive disorder, not elsewhere classified [*07/31/2001 12/21/2015 Endometriosis of other specified sites [N80.8] 07/31/2001 02/09/2017 ESOPHAGEAL REFLUX [K21.9] 07/31/2001 5.2.1 CHRONIC POST TRAUMA H/A W/ MINOR HEAD TRA*05/19/2003 02/09/2017 Allergic Rhinitis [J30.9] 03/05/2009 Bulimia nervosa, unspecified severity (HCC) [F5*04/08/2009 Vitamin B12 Deficiency [E53.8] 06/23/2009 Dysmenorrhea [N94.6] Routine gynecological examination [Z01.419] 10/23/2012 02/09/2017 Tobacco abuse [Z72.0] 05/11/2021 History of endometriosis [Z87.42] 01/28/2015 Moderate episode of recurrent major depressive *12/21/2015 Raynaud's disease without gangrene [I73.00] 01/14/2016 Fibromyalgia [M79.7] 01/17/2016 Migraine without aura and without status migrai*01/17/2016 Encounter for monitoring proton pump inhibitor *02/09/2017 05/11/2021 Bicuspid aortic valve (HCC) [Q23.81] more content not included)... Normal [facility] 12 Lead EKGon 06-30-2024 12 Lead EKG [facility] [address] [place] [address] 12 Lead EKG 06/30/24 0839 MR#: [id number] Acct: [id number] Name: PAUL DAVENPORT Rep #: [id number] : 1975 49 From: Raffi Cortez MD Attending Dr: Dr. Jorge Monique DO Status: DEP ER Ordering Dr: Jorge Monique DO Date: 06/30/24 Location: ED Sex: F C Admitted: Test Reason : CP Blood Pressure : */* mmHG Vent. Rate : 87 BPM Atrial Rate : 87 BPM P-R Int : 146 ms QRS Dur : 90 ms QT Int : 368 ms P-R-T Axes : 61 18 87 degrees QTcB Int : 442 ms Normal sinus rhythm Nonspecific T wave abnormality Abnormal ECG When compared with ECG of 19-Jun-2024 19:02, No significant change was found Confirmed by RAFFI CORTEZ MD ([id number]), purchasing expeditor AYDEE LARIOS ([id number]) on 07/08/2024 9:45:21 AM Referred By: ES Confirmed By: RAFFI CORTEZ MD 07/08/24 0945 Date Raffi Cortez MD CC: MELANIA Brush; Dr. Jorge Monique, Signed Normal [facility] Basic Metabolic Profile (BMP )on 06-30-2024 BUN/CRE 33.0 RATIO High 10-20 [facility] Comment on above: Performed By: #### L 100.0100, L501.4021, L503.7505, L500.2500 #### [facility] [address] [place], [address] Calcium [Mass/Vol] 8.3 mg/dL Normal 7.6-11.0 [facility] Comment on above: Performed By: #### L 100.0100, L501.4021, L503.7505, L500.2500 #### [facility] [address] [place], [address] Chloride [Moles/Vol] 102 mmol/L Normal 98-108 [facility] Comment on above: Performed By: #### L 100.0100, L501.4021, L503.7505, L500.2500 #### [facility] [address] [place], [address] CO2 [Moles/Vol] 21.4 mmol/L Normal 21.0-32.0 [facility] Comment on above: Performed By: #### L 100.0100, L501.4021, L503.7505, L500.2500 #### [facility] [address] [place], [address] Creatinine [Mass/Vol] 0.70 mg/dL Normal 0.70-1.20 [facility] Comment on above: Performed By: #### L 100.0100, L501.4021, L503.7505, L500.2500 #### [facility] [address] [place], [address] ECRCL 133.73 ml/min Normal 50-250 [facility] Comment on above: Performed By: #### L 100.0100, L501.4021, L503.7505, L500.2500 #### [facility] [address] [place], [address] GAP 13 Normal 5-15 [facility] Comment on above: Performed By: #### L 100.0100, L501.4021, L503.7505, L500.2500 #### [facility] [address] [place], [address] GFR/1.73 sq M.predicted among non-blacks MDRD (S/P/Bld) [Vol rate/Area] 107 mL/min/{1.73_m2} Normal >60 [facility] Comment on above: Result Comment: mL/m in/1.73m2 CKD-EPI Creatinine Equation (2020) Performed By: #### L 100.0100, L501.4021, L503.7505, L500.2500 #### [facility] [address] [place], [address] Glucose [Mass/Vol] 67 mg/dL Low 70-99 [facility] Comment on above: Performed By: #### L 100.0100, L501.4021, L503.7505, L500.2500 #### [facility] [address] [place], [address] Potassium [Moles/Vol] 4.3 mmol/L Normal 3.3-5.1 [facility] Comment on above: Result Comment: Hemo lysis present, Results??could be affected. ?? Performed By: #### L 100.0100, L501.4021, L503.7505, L500.2500 #### [facility] [address] [place], [address] Sodium [Moles/Vol] 136 mmol/L Normal 133-145 [facility] Comment on above: Performed By: #### L 100.0100, L501.4021, L503.7505, L500.2500 #### [facility] [address] [place], [address] Urea nitrogen [Mass/Vol] 23 mg/dL High 4-19 [facility] Comment on above: Performed By: #### L 100.0100, L501.4021, L503.7505, L500.2500 #### [facility] [address] [place], [address] CBC W/Diff, Automatedon 05- Absolute Lymph 3.41 X10 3/uL Normal 0.83-4.51 [facility] Comment on above: Performed By: #### L 100.0100, L501.4021, L503.7505, L500.2500 #### [facility] [address] [place], [address] Absolute Neut 12.0 X10 3/uL High 2.0-7.7 [facility] Comment on above: Performed By: #### L 100.0100, L501.4021, L503.7505, L500.2500 #### [facility] [address] [place], [address] Basophils/100 WBC (Bld) 0.4 % Normal 0-1 [facility] Comment on above: Performed By: #### L 100.0100, L501.4021, L503.7505, L500.2500 #### [facility] [address] [place], [address] Eosinophils/100 WBC (Bld) 0.9 % Normal 0-5 [facility] Comment on above: Performed By: #### L 100.0100, L501.4021, L503.7505, L500.2500 #### [facility] [address] [place], [address] Erythrocyte distribution width (RBC) [Ratio] 13.9 % Normal 11.6-14.6 [facility] Comment on above: Performed By: #### L 100.0100, L501.4021, L503.7505, L500.2500 #### [facility] [address] [place], [address] Hematocrit (Bld) [Volume fraction] 38.8 % Normal 37-47 [facility] Comment on above: Performed By: #### L 100.0100, L501.4021, L503.7505, L500.2500 #### [facility] [address] [place], [address] Hemoglobin (Bld) [Mass/Vol] 12.8 g/dL Normal 12.0-15.0 [facility] Comment on above: Performed By: #### L 100.0100, L501.4021, L503.7505, L500.2500 #### [facility] [address] [place], [address] IG% 1.900 High 0.0-0.9 [facility] Comment on above: Result Comment: IG% - Immature Granulocytes (promyelocytes, myelocytes and metamyelocytes) > 1% indicates that a LEFT SHIFT is Present. Performed By: #### L 100.0100, L501.4021, L503.7505, L500.2500 #### [facility] [address] [place], [address] Lymphocytes/100 WBC (Bld) 20.1 % Normal 19-41 [facility] Comment on above: Performed By: #### L 100.0100, L501.4021, L503.7505, L500.2500 #### [facility] [address] [place], [address] MCH (RBC) [Entitic mass] 30.3 pg Normal 27.0-32.0 [facility] Comment on above: Performed By: #### L 100.0100, L501.4021, L503.7505, L500.2500 #### [facility] [address] [place], [address] MCHC (RBC) [Mass/Vol] 33.0 g/dL Normal 32-36 [facility] Comment on above: Performed By: #### L 100.0100, L501.4021, L503.7505, L500.2500 #### [facility] [address] [place], [address] MCV (RBC) [Entitic vol] 91.9 fL Normal 81-99 [facility] Comment on above: Performed By: #### L 100.0100, L501.4021, L503.7505, L500.2500 #### [facility] [address] [place], [address] Monocytes/100 WBC (Bld) 5.8 % Normal 0-10 [facility] Comment on above: Performed By: #### L 100.0100, L501.4021, L503.7505, L500.2500 #### [facility] [address] [place], [address] Neutrophils/100 WBC (Bld) 70.9 % High 47-70 [facility] Comment on above: Performed By: #### L 100.0100, L501.4021, L503.7505, L500.2500 #### [facility] [address] [place], [address] Nucleated RBC (Bld) [#/Vol] 0 10*3/uL Normal 0-5 [facility] Comment on above: Performed By: #### L 100.0100, L501.4021, L503.7505, L500.2500 #### [facility] [address] [place], [address] Platelet mean volume (Bld) [Entitic vol] 10.1 fL Normal 6.2-12.0 [facility] Comment on above: Performed By: #### L 100.0100, L501.4021, L503.7505, L500.2500 #### [facility] [address] [place], [address] Platelets (Bld) [#/Vol] 459 10*3/uL High 150-450 [facility] Comment on above: Performed By: #### L 100.0100, L501.4021, L503.7505, L500.2500 #### [facility] [address] [place], [address] RBC (Bld) [#/Vol] 4.22 10*6/uL Normal 4.2-5.4 [facility] Comment on above: Performed By: #### L 100.0100, L501.4021, L503.7505, L500.2500 #### [facility] [address] [place], [address] RDW SD 46.4 fl High 35.1-43.9 [facility] Comment on above: Performed By: #### L 100.0100, L501.4021, L503.7505, L500.2500 #### [facility] [address] [place], [address] WBC (Bld) [#/Vol] 17.0 10*3/uL High 4.4-11.0 [facility] Comment on above: Performed By: #### L 100.0100, L501.4021, L503.7505, L500.2500 #### [facility] [address] [place], [address] Emergency Department Summary on 06-30-2024 Emergency Department Summary [facility] Medical Records Department [address] [place] [address] Emergency Department Summary 06/30/24 MR#: [id number] Acct: [id number] Name: PAUL DAVENPORT Lashae Rep #: [id number] : 1975 49 From: Jorge Monique DO PCP: MELANIA Whatley Status:DEP ER Location: ED HPI History of Present Illness Chief Complaint: Chest Pain Informant: patient Onset/Context/Timing Onset: Yesterday Activity at onset: gradual Timing: Continuous Quality: Positive for Tightness Location: Substernal, Right Parasternal, Left Parasternal, Right Chest and Left Chest Worsened By: Exertion Relieved By: Rest Associated Symptoms: Positive for Dyspnea and Lightheadedness; Negative for Nausea, Vomiting, Diaphoresis, Cough, Fever, Acid Reflux or Palpitations Narrative Narrative: Patient presents with chest pain and shortness of breath that began yesterday. Patient states her pain is diffuse across her chest but worse on the left. Patient describes her pain as a tightness. Patient states it has been constant since last night. Patient states it is worse with any exertion and better with rest. Patient states she has been retaining some water and her legs have been swelling. Patient admits to some shortness of breath but denies any cough or fevers. Patient does admit to some lightheadedness. Patient denies any nausea or vomiting. Patient denies any diaphoresis. CVD Risk Factors: Positive for Diabetes (Prediabetes) and Smoking; Negative for Hypertension, Hypercholesterolemia or Family History 1' PE Risk Factors: Negative for Recent Travel/Surgery, Recent Immobilization, Prior DVT or PE, Cancer or OCP + Smoking + >/=35 [facility] History (Updated 06/30/24 @ 12:[address] Jorge Monique, DO) Asthma Hypertension Migraine Bulimia Lesion of spleen Endometriosis Heart murmur Aortic stenosis Acid reflux Depression Fibromyalgia Home Medications ???Medication ???Instructions ???Recorded ???Last Taken ???Type albuterol sulfate 90 mcg/actuation 2 puff inhalation Q4H PRN PRN Unknown History aerosol inhaler wheezing cholecalciferol (vitamin D3) 25 50 mcg PO DAILY 08/09/23 Unknown H istory mcg (1,000 unit) tablet (Vitamin D3) clobetasol 0.05 % topical ointment 1 applic topical BID 08/09/23 Un known History duloxetine 60 mg capsule,delayed 60 mg PO DAILY 08/09/23 Unknown Hi story release (Cymbalta) esomeprazole magnesium 40 mg 40 mg PO BID 08/09/23 Unknown Hist ory capsule,delayed release (Nexium) fluoxetine 40 mg capsule 80 mg PO DAILY 08/09/23 Unknown Hi story fluticasone furoate 200 1 inh inhalation DAILY 08/09/23 Un known History mcg-vilanterol 25 mcg/dose inhalation powder hydroxyzine pamoate 25 mg capsule 25 mg PO TID PRN PRN anxiety 07/21 Unknown History lisinopril 10 mg tablet 10 mg PO DAILY 08/09/23 Unknown Hi story loratadine 10 mg tablet 10 mg PO DAILY 08/09/23 Unknown Hi story (Allerclear) meloxicam 15 mg tablet 15 mg PO DAILY 08/09/23 Unknown Hi story pregabalin 75 mg capsule 75 mg PO BID 08/09/23 Unknown Hist ory propranolol 20 mg tablet 20 mg PO BID 08/09/23 Unknown Hist ory pseudoephedrine HCl 120 mg 120 mg PO BID 08/09/23 Unknown His tory tablet,extended release terbinafine HCl 250 mg tablet 250 mg PO DAILY 08/09/23 Unknown H istory prednisone 20 mg tablet 40 mg (2 x 20 mg) PO DAILY 5 days 06/19/24 Unknown Rx #10 tabs Allergy/AdvReac Type Severity Reaction Status Date / Time metformin AdvReac Severe Other Verified 06/30/24 08:36 Surgical History (Updated 06/30/24 @ 10:[address] Jorge Monique DO) Hx of laparoscopy Hx of ovarian cystectomy Hx of tonsillectomy Social History housing: house Smoking Status: Current every day smoker tobacco type: cigarettes details: Social substance use type: does not use ROS ROS ED Constitutional Constitutional ED: Reports chills and subjective; Denies fever(s) Eyes Eyes: Denies blurry vision or change in vision ENT ENT ED: Denies rhinorrhea or sore throat Cardiovascular Cardiovascular: Reports chest pain; Denies palpitations Respiratory/Chest Respiratory/Chest: Reports dyspnea; Denies cough Gastrointestinal Gastrointestinal: Reports nausea; Denies abdominal pain or vomiting Genitourinary Genitourinary ED: Denies dysuria or hematuria Musculoskeletal Musculoskeletal: Reports back pain; Denies neck pain Integumentary Denies abscess or rash Neurologic Neurologic: Denies headache(s) or weakness Allergic/Immunologic Allergic/Immunologic ED: Denies mouth swelling or urticaria EXAM Physical Exam Const Vital Signs: 06/30/24 08:36 06/30/24 09:35 06/30/24 09:45 Temperature 98 F Temperature Source Oral Pulse (more content not included)... Normal [facility] L499.0042on 06-30-2024 Trop T High Sen 8 ng/L Normal <=14 [facility] Comment on above: Performed By: #### L 499.0042 ####[facility] [address] [place], [address] L499.0043on 06-30-2024 Trop T High Sen Normal <=14 [facility] Comment on above: Result Comment: Canc elled via OM: Order cancelled - Patient discharged Performed By: #### L 499.0043 ####[facility] [address] [place], [address] L501.4021on 06-30-2024 Trop T High Sen 7 ng/L Normal <=14 [facility] Comment on above: Result Comment: Hemo lysis present, Results??could be affected. ?? Performed By: #### L 100.0100, L501.4021, L503.7505, L500.2500 #### [facility] [address] [place], [address] L503.7505on 06-30-2024 Natriuretic peptide B (Bld) [Mass/Vol] 402 pg/mL Normal <=450 [facility] Comment on above: Result Comment: Hear t Failure Unlikely: < 300 pg/mL Heart Failure Likely < 50 Years: > 450 pg/mL 50-75 Years: > 900 pg/mL >75 Years: > 1800 pg/mL Performed By: #### L 100.0100, L501.4021, L503.7505, L500.2500 #### [facility] [address] [place], [address] CNOVon 06-27-2024 CNOV Office Visit (BERNABE ACOSTA) -------- PAUL DAVENPORT ([id number]) 1975 F Date Time Provider Department 06/27/24 5:20 PM VASQUEZ BRUSH During your visit today, we recorded the following information about you: Pulse Blood pressure Weight Height 97/minute 110/74 126.1 kg 1.626 m Vasquez Brush APRN.SCHOLARSHIP COUNSELOR 07/12/2024 10:37 PM Signed Subjective The patient consented to the use of [employer] software for draft documentation of the visit consistent with [facility]?s Notice of Privacy Practices. HPI Paul is a 49-year-old female with a history of smoking, presenting with persistent gurgling sounds in the chest, dyspnea, and concerns about potential CHF. Paul reports experiencing gurgling sounds in her chest for several months, which have not improved despite various attempts at self-treatment. She was recently prescribed prednisone, which she started 2-3 days ago, and is currently taking azithromycin. She notes a significant increase in dyspnea, particularly when lying flat, and is unable to walk short distances without feeling like dying. She also reports a chronic cough, sometimes productive of clear or foamy sputum, but denies yellow sputum production. She has not undergone pulmonary function tests to check for COPD, but mentions a previous unsuccessful attempt at a breathing test in 2022. Paul has a family history of CHF, with both her mother and grandmother affected. She expresses concern that her symptoms may be related to CHF, especially given her recent weight gain and feelings of bloating. She reports eating twice a day but continues to gain weight, with her stomach sitting on top of my legs. She also notes swelling and heaviness in her legs, making it difficult to walk. She has a history of valve problems and is scheduled for a cardiology appointment in July, following an echocardiogram. Paul also reports feeling freezing cold frequently, describing it as similar to flu symptoms. She has a history of anxiety and is currently taking Abilify 10 mg, which she reports has improved her mood and activity level. She also takes Lyrica for pain management, which she believes helps her mood more than any antidepressant she has tried. She has a history of suicidal ideation and notes that Lyrica helps prevent these thoughts. She has a prescription for anxiety medication but reports that it makes her feel like a zombie the next day. Paul is a smoker and has tried vaping once but found it too harsh on her lungs. She acknowledges the need to quit smoking but finds it difficult due to her current lifestyle and stress levels. She reports feeling exhausted and has difficulty sleeping due to concerns about her weight and potential heart issues. She has a history of high blood pressure, which she notes is often elevated when she is stressed. She has a wrist blood pressure monitor at home but has not used it yet. She also reports memory issues. Paul has a hernia near her umbilicus and is awaiting surgery. She expresses concern about the hernia worsening due to her current health issues. She also reports difficulty urinating and straining due to everything's messed up down there. She is worried about her ability to undergo surgery given her current health status. I reviewed past medical, surgical, social, and family histories today and updated chart. Allergies, chronic medications, and supplements were also reviewed. 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 Insomnia, unspecified Iron deficiency anemia 09/25/2023 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/2023 Major depressive disorder, single episode, mild Migraine stable with propranolol Nontoxic uninodular goiter Osteoarthritis of multiple joints Partial rectal prolapse RP (rectal prolapse) ~2012 Sleep apnea Tobacco abuse PAST SURGICAL HISTORY Procedure Laterality Date ABDOMINAL SURGERY HX COLON SURGERY HX 2019 rectal prolapse COLONOSCOPY 11/16/2014, 12/2017 No polyps/ severe diarrhea and prolapse CORRECT RECTAL PROLAPSE CT ABD/PELVIS WO CONTRAST PANEL 11/[address] COR/SAG/SINUS/BRAIN/HEAD 12/2005 normal DEBRIDEMENT MUSCLE AND FASCIA 20 SQ CM/< 11/03/2007 DEBRIDEMENT ULCER EXTREMITY LOWER performed by GEOFF FLOOD at [facility] ECHO EXAM OF HEART 09/2000 bicuspid AV, minor AI, mild EGD 01/1999 small hiat (more content not included)... Normal [facility] XR CHEST 2V FRONTAL/LATon XR CHEST 2V FRONTAL/LAT * * *Final Report* * * DATE OF EXAM: Jun 27 2024 5:35PM LDX 5291 - XR CHEST 2V FRONTAL/LAT / PROCEDURE REASON: multiple diagnoses * * * * Physician Interpretation * * * * EXAMINATION: CHEST RADIOGRAPH (2 VIEW FRONTAL and LATERAL) CLINICAL HISTORY: Orthopnea Rhonchi MQ: [id number]_6 EXAM DATE/TIME: 06/27/2024 5:35 PM COMPARISON: 01/18/2023 RESULT: Lines, tubes, and devices: None. Lungs and pleura: No consolidation. No lung mass. No pleural effusion. No pneumothorax. Cardiomediastinal silhouette: Normal cardiomediastinal silhouette. Bones and soft tissues: No acute bony abnormality. IMPRESSION: No acute radiographic abnormality. Tax Analyst: PEYMAN Transcribe Date/Time: Jun 27 2024 6:06P Dictated by : JAYESH BARROS MD This examination was interpreted and the report reviewed and electronically signed by: JAYESH BARROS MD on Jun 27 2024 6:08PM EST [id number] Normal [facility] CBC panel Auto (Bld)on 06-26 Erythrocyte distribution width (RBC) [Ratio] 13.8 % Normal 11.5-15.0 [facility] Comment on above: Order Comment: Speci men Type: BLOOD SPECIMENOrdering Facility: [facility] Address: [address] [place] [address] Performed By: #### 5 8410-2 ####[facility] LABCLIA [id number] [place] [address] [place] Hematocrit (Bld) [Volume fraction] 43.4 % Normal 36.0-46.0 [facility] Comment on above: Order Comment: Speci men Type: BLOOD SPECIMENOrdering Facility: [facility] Address: [address] [place] [address] Performed By: #### 5 8410-2 ####[facility] LABCLIA [id number] [place] [address] [place] Hemoglobin (Bld) [Mass/Vol] 13.9 g/dL Normal 11.5-15.5 [facility] Comment on above: Order Comment: Speci men Type: BLOOD SPECIMENOrdering Facility: [facility] Address: [address] [place] [address] Performed By: #### 5 8410-2 ####[facility] LABCLIA [id number] [place] [id number] [place] MCH (RBC) [Entitic mass] 29.4 pg Normal 26.0-34.0 [facility] Comment on above: Order Comment: Speci men Type: BLOOD SPECIMENOrdering Facility: [facility] Address: [address] [place] [address] Performed By: #### 5 8410-2 ####[facility] LABCLIA [id number] [place] [address] [place] MCHC (RBC) [Mass/Vol] 32.0 g/dL Normal 30.5-36.0 [facility] Comment on above: Order Comment: Speci men Type: BLOOD SPECIMENOrdering Facility: [facility] Address: [address] [place] [address] Performed By: #### 5 8410-2 ####[facility] LABIA [id number] [place] [address] [place] MCV (RBC) [Entitic vol] 91.8 fL Normal 80.0-100.0 [facility] Comment on above: Order Comment: Speci men Type: BLOOD SPECIMENOrdering Facility: [facility] Address: [address] [place] [address] Performed By: #### 5 8410-2 ####[facility] LABIA [id number] [place] [address] [place] Nucleated RBC (Bld) [#/Vol] 10*3/uL Normal <0.01 [facility] Comment on above: Order Comment: Speci men Type: BLOOD SPECIMENOrdering Facility: [facility] Address: [address] [place] [address] Performed By: #### 5 8410-2 ####[facility] LABIA [id number] [place] [address] [place] Platelet mean volume (Bld) [Entitic vol] 10.0 fL Normal 9.0-12.7 [facility] Comment on above: Order Comment: Speci men Type: BLOOD SPECIMENOrdering Facility: [facility] Address: [address] [place] [address] Performed By: #### 5 8410-2 ####[facility] LABCLIA [id number] [place] [address] [place] Platelets (Bld) [#/Vol] 502 10*3/uL High 150-400 [facility] Comment on above: Order Comment: Speci men Type: BLOOD SPECIMENOrdering Facility: [facility] Address: [address] [place] [address] Performed By: #### 5 8410-2 ####[facility] LABCLIA [id number] [place] [address] [place] RBC (Bld) [#/Vol] 4.73 10*6/uL Normal 3.90-5.20 [facility] Comment on above: Order Comment: Speci men Type: BLOOD SPECIMENOrdering Facility: [facility] Address: [address] [place] [address] Performed By: #### 5 8410-2 ####[facility] LABCLIA [id number] [place] [address] [place] WBC (Bld) [#/Vol] 19.90 10*3/uL High 3.70-11.00 [facility] Comment on above: Order Comment: Speci men Type: BLOOD SPECIMENOrdering Facility: [facility] Address: [address] [place] [address] Performed By: #### 5 8410-2 ####[facility] LABCLIA [id number] [place] [address] [place] Comprehensive metabolic 2000 panelon 06-26-2024 Albumin [Mass/Vol] 4.1 g/dL Normal 3.9-4.9 [facility] Comment on above: Order Comment: Speci men Type: BLOOD SPECIMENOrdering Facility: [facility] Address: [address] [place] [address] Performed By: #### 2 4323-8, 22254-6, 3016-3 ####[facility] LABCLIA [id number] [place] [id number] [place] ALP [Catalytic activity/Vol] 114 U/L Normal 34-123 [facility] Comment on above: Order Comment: Speci men Type: BLOOD SPECIMENOrdering Facility: [facility] Address: [address] [place], [place] [address] Performed By: #### 2 4323-8, 32041-0, 3016-3 ####[facility] LABCLIA [id number] [address] [address] [place] ALT [Catalytic activity/Vol] 24 U/L Normal 7-38 [facility] Comment on above: Order Comment: Speci men Type: BLOOD SPECIMENOrdering Facility: [facility] Address: [address] [place], [place] [address] Performed By: #### 2 4323-8, 80834-5, 3016-3 ####[facility] LABIA [id number] [place] [id number] [place] Anion gap [Moles/Vol] 12 mmol/L Normal 8-15 [facility] Comment on above: Order Comment: Speci men Type: BLOOD SPECIMENOrdering Facility: [facility] Address: [address] [place], [place] [address] Performed By: #### 2 4323-8, 69308-4, 3016-3 ####[facility] LABIA [id number] [place] [id number] [place] AST [Catalytic activity/Vol] 18 U/L Normal 13-35 [facility] Comment on above: Order Comment: Speci men Type: BLOOD SPECIMENOrdering Facility: [facility] Address: [address] [place], [place] [address] Performed By: #### 2 4323-8, 11075-9, 3016-3 ####[facility] LABIA [id number] [address] [address] [place] Bilirubin [Mass/Vol] 0.2 mg/dL Normal 0.2-1.3 [facility] Comment on above: Order Comment: Speci men Type: BLOOD SPECIMENOrdering Facility: [facility] Address: [address] [place], [place] [address] Performed By: #### 2 4323-8, 63336-4, 3016-3 ####[facility] LABCLIA [id number] [address] [address] [place] Calcium [Mass/Vol] 9.4 mg/dL Normal 8.5-10.2 [facility] Comment on above: Order Comment: Speci men Type: BLOOD SPECIMENOrdering Facility: [facility] Address: [address] [place], [place] [address] Performed By: #### 2 4323-8, 10763-7, 6-3 ####[facility] LABCLIA [id number] [place] [id number] [place] Chloride [Moles/Vol] 99 mmol/L Normal 98-107 [facility] Comment on above: Order Comment: Speci men Type: BLOOD SPECIMENOrdering Facility: [facility] Address: [address] [place], [place] [address] Performed By: #### 2 4323-8, 17366-6, 6-3 ####[facility] LABIA [id number] [place] [id number] [place] CO2 [Moles/Vol] 28 mmol/L Normal 22-30 [facility] Comment on above: Order Comment: Speci men Type: BLOOD SPECIMENOrdering Facility: [facility] Address: [address] [place], [place] [address] Performed By: #### 2 4323-8, 47487-8, 6-3 ####[facility] LABIA [id number] [address] [address] [place] Creatinine [Mass/Vol] 0.70 mg/dL Normal 0.58-0.96 [facility] Comment on above: Order Comment: Speci men Type: BLOOD SPECIMENOrdering Facility: [facility] Address: [address] [place], [place] [address] Performed By: #### 2 4323-8, 09139-5, 3016-3 ####[facility] LABCLIA [id number] [place] [address] [place] Creatinine and Glomerular filtration rate.predicted panel (S/P/Bld) 108 mL/min/1.73m??? Normal >=60 [facility] Comment on above: Order Comment: Spectariq walsh Type: BLOOD SPECIMENOrdering Facility: [facility] Address: [address] [place] [address] Result Comment: Tsering mated Glomerular Filtration Rate (eGFR) is calculated using the 2020 CKD-EPI creatinine equation. This equation utilizes serum creatinine, sex, and age as parameters. The creatinine assay has traceable calibration to isotope dilution-mass spectrometry. Refer to KDIGO guidelines for clinical interpretation. In patients with unstable renal function, e.g. those with acute kidney injury, the eGFR may not accurately reflect actual GFR. Performed By: #### 2 4323-8, 43714-6, 3016-3 ####[facility] LABCLIA [id number] [place] [id number] [place] Glucose [Mass/Vol] 96 mg/dL Normal 74-99 [facility] Comment on above: Order Comment: Ulises walsh Type: BLOOD SPECIMENOrdering Facility: [facility] Address: [address] [place] [address] Result Comment: The [place] [employer] (ADA) provides guidance for cutoff values for fasting glucose and random glucose. The ADA defines fasting as no caloric intake for at least 8 hours. Fasting plasma glucose results between 100 to 125 mg/dL indicate increased risk for diabetes (prediabetes).Fasting plasma glucose results greater than or equal to 126 mg/dL meet the criteria for diagnosis of diabetes. In the absence of unequivocal hyperglycemia, results should be confirmed by repeat testing. In a patient with classic symptoms of hyperglycemia or hyperglycemic crisis, random plasma glucose results greater than or equal to 200 mg/dL meet the criteria for diagnosis of diabetes.Reference: Standards of Medical Care in Diabetes 2016, [place] [employer]. Diabetes Care. 2016.39(Suppl 1). Performed By: #### 2 4323-8, 09117-3, 3016-3 ####[facility] LABCLIA [id number] [address] [address] [place] Potassium [Moles/Vol] 4.5 mmol/L Normal 3.7-5.1 [facility] Comment on above: Order Comment: Speci men Type: BLOOD SPECIMENOrdering Facility: [facility] Address: [address] [place], [place] [address] Performed By: #### 2 4323-8, 45440-2, 6-3 ####[facility] LABCLIA [id number] [address] [address] [place] Protein [Mass/Vol] 7.1 g/dL Normal 6.3-8.0 [facility] Comment on above: Order Comment: Speci men Type: BLOOD SPECIMENOrdering Facility: [facility] Address: [address] [place], [place] [address] Performed By: #### 2 4323-8, 91239-6, 3015-3 ####[facility] LABIA [id number] [place] [id number] [place] Sodium [Moles/Vol] 139 mmol/L Normal 136-144 [facility] Comment on above: Order Comment: Speci men Type: BLOOD SPECIMENOrdering Facility: [facility] Address: [address] [place], [place] [address] Performed By: #### 2 4323-8, 49688-1, 3015-3 ####[facility] LABCLIA [id number] [address] [address] [place] Urea nitrogen [Mass/Vol] 23 mg/dL High 7-21 [facility] Comment on above: Order Comment: Speci men Type: BLOOD SPECIMENOrdering Facility: [facility] Address: [address] [place], [place] [address] Performed By: #### 2 4323-8, 38824-0, 6-3 ####[facility] LABCLIA [id number] [address] [address] [place] [facility] NT-proBNP [facility]-ncon 06-26 Natriuretic peptide.B prohormone N-Terminal [Mass/Vol] 274 pg/mL High <125 [facility] Comment on above: Order Comment: Speci men Type: BLOOD SPECIMENOrdering Facility: [facility] Address: [address] [place] [address] Performed By: #### 2 4323-8, 81418-7, 3016-3 ####[facility] LABIA [id number] [address] [address] [place] TSH SerPl-aCncon 06-26-2024 TSH Qn 2.450 m[IU]/L Normal 0.270-4.200 [facility] Comment on above: Order Comment: Speci men Type: BLOOD SPECIMENOrdering Facility: [facility] Address: [address] [place] [address] Result Comment: If t he patient is , TSH reference range varies by gestational period:First Trimester (weeks 9-12): 0.180-2.990 mIU/LSecond Trimester: 0.110-3.980 mIU/LThird Trimester: 0.480-4.710 mIU/Michelle Hooper et al. A Practical Approach for the Verifications and Determination of Site- and Trimester-Specific Reference Intervals for Thyroid Function tests in . Thyroid, 2019:29:3:412-420. Man E, et al. 2017 Guidelines of the [place] Thyroid Association for the Diagnosis and Management of Thyroid Disease during and the . Thyroid, 2017:27:3:315-389. Performed By: #### 2 4323-8, 46707-0, 3016-3 ####[facility] [id number] [address] [address] [place] Urinalysis complete panel (U )on 06-26-2024 Bacteria LM.HPF (Urine sed) [#/Area] Negative Normal Negative [facility] Comment on above: Order Comment: Speci men Type: URINE SPECIMENOrdering Facility: [facility] Address: [address] [place] [address] Performed By: #### 2 4356-8 ####[facility] LABCLIA [id number] [address] [place] [address] [place] Bilirubin Ql (U) Negative Normal Negative [facility] Comment on above: Order Comment: Speci men Type: URINE SPECIMENOrdering Facility: [facility] Address: [address] [place] [address] Performed By: #### 2 4356-8 ####[facility] LABCLIA [id number] [address], [facility]95 [place] Clarity (Unsp spec) Clear Normal Clear [facility] Comment on above: Order Comment: Speci men Type: URINE SPECIMENOrdering Facility: [facility] Address: [address] [place] [address] Performed By: #### 2 4356-8 ####[facility] LABCLIA [id number] [address], [facility]95 [place] [facility] Color (U) Yellow Normal Yellow [facility] Comment on above: Order Comment: Speci men Type: URINE SPECIMENOrdering Facility: [facility] Address: [address] [place] [address] Performed By: #### 2 4356-8 ####[facility] LABCLIA [id number] [place] [id number] [place] Epithelial cells LM.HPF (Urine sed) [#/Area] Moderate Normal [facility] Comment on above: Order Comment: Speci men Type: URINE SPECIMENOrdering Facility: [facility] Address: [address] [place] [address] Performed By: #### 2 4356-8 ####[facility] LABCLIA [id number] [address] [place] [address] [place] Glucose Test strip (U) [Mass/Vol] Negative Normal Negative [facility] Comment on above: Order Comment: Speci men Type: URINE SPECIMENOrdering Facility: [facility] Address: [address] [place] [address] Performed By: #### 2 4356-8 ####[facility] LABCLIA [id number] [address] [place] [address] [place] Hemoglobin Ql (U) Negative Normal Negative [facility] Comment on above: Order Comment: Speci men Type: URINE SPECIMENOrdering Facility: [facility] Address: [address] [place] [address] Performed By: #### 2 4356-8 ####[facility] LABCLIA [id number] [place] [address] [place] Hyaline casts (Urine sed) [#/Area] 0 /[LPF] Normal 0 /LPF [facility] Comment on above: Order Comment: Speci men Type: URINE SPECIMENOrdering Facility: [facility] Address: [address] [place] [address] Performed By: #### 2 4356-8 ####[facility] LABCLIA [id number] [place] [address] [place] Ketones Ql (U) Negative Normal Negative [facility] Comment on above: Order Comment: Speci men Type: URINE SPECIMENOrdering Facility: [facility] Address: [address] [place] [address] Performed By: #### 2 4356-8 ####[facility] LABCLIA [id number] [place] [id number] [place] Leukocyte esterase Test strip Ql (U) Negative Normal Negative [facility] Comment on above: Order Comment: Speci men Type: URINE SPECIMENOrdering Facility: [facility] Address: [address] [place] [address] Performed By: #### 2 4356-8 ####[facility] LABCLIA [id number] [address], [facility]95 [place] Nitrite Ql (U) Negative Normal Negative [facility] Comment on above: Order Comment: Speci men Type: URINE SPECIMENOrdering Facility: [facility] Address: [address] [place] [address] Performed By: #### 2 4356-8 ####[facility] LABIA [id number] [place] [id number] [place] pH (U) 6.5 [pH] Normal <8.5 [facility] Comment on above: Order Comment: Speci men Type: URINE SPECIMENOrdering Facility: [facility] Address: [address] [place] [address] Performed By: #### 2 4356-8 ####[facility] LABIA [id number] [place] [address] [place] Protein (U) [Mass/Vol] Negative Normal Negative [facility] Comment on above: Order Comment: Speci men Type: URINE SPECIMENOrdering Facility: [facility] Address: [address] [place] [address] Performed By: #### 2 4356-8 ####[facility] LABIA [id number] [place] [address] [place] RBC LM.HPF (Urine sed) [#/Area] 0-2 /HPF Normal 0-2 /HPF [facility] Comment on above: Order Comment: Speci men Type: URINE SPECIMENOrdering Facility: [facility] Address: [address] [place] [address] Performed By: #### 2 4356-8 ####[facility] LABIA [id number] [place] [id number] [place] Specific gravity (U) [Rel density] 1.021 Normal 1.005-1.030 [facility] Comment on above: Order Comment: Speci men Type: URINE SPECIMENOrdering Facility: [facility] Address: [address] [place] [address] Performed By: #### 2 4356-8 ####[facility] LABIA [id number] [place] [id number] [place] Urobilinogen Ql (U) 0.2 EU/dL Normal 0.2-1.0 EU/dL Cl [facility] Comment on above: Order Comment: Speci men Type: URINE SPECIMENOrdering Facility: [facility] Address: [address] [place] [address] Performed By: #### 2 4356-8 ####[facility] LABIA [id number] [place] [id number] [place] WBC LM.HPF (Urine sed) [#/Area] 0-5 /HPF Normal 0-5 /HPF [facility] Comment on above: Order Comment: Speci men Type: URINE SPECIMENOrdering Facility: [facility] Address: [address] [place] [address] Performed By: #### 2 4356-8 ####[facility] LABIA [id number] [place] [address] [place] 12 Lead EKGon 06-19-2024 12 Lead EKG [facility] Services [address] [place] [address] 12 Lead EKG 06/19/24 1902 MR#: [id number] Acct: [id number] Name: PAUL DAVENPORT Lashae Rep #: [id number] : 1975 49 From: Raffi Cortez MD Attending Dr: Status: DEP ER Ordering Dr: Emil Quan DO Date: 5 Location: ED Sex: F C Admitted: Test Reason : DYSRHYTHMIA Blood Pressure : */* mmHG Vent. Rate : 84 BPM Atrial Rate : 84 BPM P-R Int : 146 ms QRS Dur : 90 ms QT Int : 392 ms P-R-T Axes : 45 27 76 degrees QTcB Int : 463 ms Normal sinus rhythm Normal ECG Confirmed by YOSSI HUTCHINSON, RAFFI ([id number]), purchasing expeditor ZENIA KEANE ([id number]) on 06/20/2024 8:20:12 AM Referred By: Emil Quan Confirmed By: RAFFI CORTEZ MD 06/20/24819 Date Rfafi Cortez MD CC: MELANIA Brush; Dr. Emil Quan, DO Signed Normal [facility] Basic Metabolic Profile (BMP )on 06-19-2024 BUN/CRE 14.2 RATIO Normal 10-20 [facility] Comment on above: Performed By: #### L 501.4021, L100.0100, L500.2500 ####[facility] [address] [place], [address] Calcium [Mass/Vol] 8.9 mg/dL Normal 7.6-11.0 [facility] Comment on above: Performed By: #### L 501.4021, L100.0100, L500.2500 ####[facility] [address] [place], [address] Chloride [Moles/Vol] 102 mmol/L Normal 98-108 [facility] Comment on above: Performed By: #### L 501.4021, L100.0100, L500.2500 ####[facility] [address] [place], [address] CO2 [Moles/Vol] 21.6 mmol/L Normal 21.0-32.0 [facility] Comment on above: Performed By: #### L 501.4021, L100.0100, L500.2500 ####[facility] [address] [place], [address] Creatinine [Mass/Vol] 1.26 mg/dL High 0.70-1.20 [facility] Comment on above: Performed By: #### L 501.4021, L100.0100, L500.2500 ####[facility] [address] [place], [address] ECRCL 71.28 ml/min Normal 50-250 [facility] Comment on above: Performed By: #### L 501.4021, L100.0100, L500.2500 ####[facility] [address] [place], [address] GAP 12 Normal 5-15 [facility] Comment on above: Performed By: #### L 501.4021, L100.0100, L500.2500 ####[facility] [address] [place], [address] GFR/1.73 sq M.predicted among non-blacks MDRD (S/P/Bld) [Vol rate/Area] 53 mL/min/{1.73_m2} Low >60 [facility] Comment on above: Result Comment: mL/m in/1.73m2 CKD-EPI Creatinine Equation (2020) Performed By: #### L 501.4021, L100.0100, L500.2500 ####[facility] [address] [place], [address] Glucose [Mass/Vol] 111 mg/dL High 70-99 [facility] Comment on above: Performed By: #### L 501.4021, L100.0100, L500.2500 ####[facility] [address] [place], [address] Potassium [Moles/Vol] 5.0 mmol/L Normal 3.3-5.1 [facility] Comment on above: Result Comment: Hemo lysis present, Results??could be affected. ?? Hemolysis present, Results??could be affected. ?? Performed By: #### L 501.4021, L100.0100, L500.2500 ####[facility] [address] [place], [address] Sodium [Moles/Vol] 136 mmol/L Normal 133-145 [facility] Comment on above: Performed By: #### L 501.4021, L100.0100, L500.2500 ####[facility] [address] [place], [address] Urea nitrogen [Mass/Vol] 18 mg/dL Normal 4-19 [facility] Comment on above: Performed By: #### L 501.4021, L100.0100, L500.2500 ####[facility] [address] [place], [address] CBC W/Diff, Automatedon 05-0 -2024 Absolute Lymph 2.81 X10 3/uL Normal 0.83-4.51 [facility] Comment on above: Performed By: #### L 501.4021, L100.0100, L500.2500 #### [facility] [address] [place], [address] Absolute Neut 10.4 X10 3/uL High 2.0-7.7 [facility] Comment on above: Performed By: #### L 501.4021, L100.0100, L500.2500 #### [facility] [address] [place], [address] Basophils/100 WBC (Bld) 0.4 % Normal 0-1 [facility] Comment on above: Performed By: #### L 501.4021, L100.0100, L500.2500 #### [facility] [address] [place], [address] Eosinophils/100 WBC (Bld) 1.2 % Normal 0-5 [facility] Comment on above: Performed By: #### L 501.4021, L100.0100, L500.2500 #### [facility] [address] [place], [address] Erythrocyte distribution width (RBC) [Ratio] 13.5 % Normal 11.6-14.6 [facility] Comment on above: Performed By: #### L 501.4021, L100.0100, L500.2500 #### [facility] [address] [place], [address] Hematocrit (Bld) [Volume fraction] 39.7 % Normal 37-47 [facility] Comment on above: Performed By: #### L 501.4021, L100.0100, L500.2500 #### [facility] [address] [place], [address] Hemoglobin (Bld) [Mass/Vol] 13.3 g/dL Normal 12.0-15.0 [facility] Comment on above: Performed By: #### L 501.4021, L100.0100, L500.2500 #### [facility] [address] [place], [address] IG% 0.700 Normal 0.0-0.9 [facility] Comment on above: Result Comment: IG% - Immature Granulocytes (promyelocytes, myelocytes and metamyelocytes) > 1% indicates that a LEFT SHIFT is Present. Performed By: #### L 501.4021, L100.0100, L500.2500 #### [facility] [address] [place], [address] Lymphocytes/100 WBC (Bld) 19.7 % Normal 19-41 [facility] Comment on above: Performed By: #### L 501.4021, L100.0100, L500.2500 #### [facility] [address] [place], [address] MCH (RBC) [Entitic mass] 30.3 pg Normal 27.0-32.0 [facility] Comment on above: Performed By: #### L 501.4021, L100.0100, L500.2500 #### [facility] [address] [place], [address] MCHC (RBC) [Mass/Vol] 33.5 g/dL Normal 32-36 [facility] Comment on above: Performed By: #### L 501.4021, L100.0100, L500.2500 #### [facility] [address] [place], [address] MCV (RBC) [Entitic vol] 90.4 fL Normal 81-99 [facility] Comment on above: Performed By: #### L 501.4021, L100.0100, L500.2500 #### [facility] [address] [place], [address] Monocytes/100 WBC (Bld) 4.9 % Normal 0-10 [facility] Comment on above: Performed By: #### L 501.4021, L100.0100, L500.2500 #### [facility] [address] [place], [address] Neutrophils/100 WBC (Bld) 73.1 % High 47-70 [facility] Comment on above: Performed By: #### L 501.4021, L100.0100, L500.2500 #### [facility] [address] [place], [address] Nucleated RBC (Bld) [#/Vol] 0 10*3/uL Normal 0-5 [facility] Comment on above: Performed By: #### L 501.4021, L100.0100, L500.2500 #### [facility] [address] [place], [address] Platelet mean volume (Bld) [Entitic vol] 9.7 fL Normal 6.2-12.0 [facility] Comment on above: Performed By: #### L 501.4021, L100.0100, L500.2500 #### [facility] [address] [place], [address] Platelets (Bld) [#/Vol] 487 10*3/uL High 150-450 [facility] Comment on above: Performed By: #### L 501.4021, L100.0100, L500.2500 #### [facility] [address] [place], [address] RBC (Bld) [#/Vol] 4.39 10*6/uL Normal 4.2-5.4 [facility] Comment on above: Performed By: #### L 501.4021, L100.0100, L500.2500 #### [facility] [address] [place], [address] RDW SD 44.5 fl High 35.1-43.9 [facility] Comment on above: Performed By: #### L 501.4021, L100.0100, L500.2500 #### [facility] [address] [place], [address] WBC (Bld) [#/Vol] 14.2 10*3/uL High 4.4-11.0 [facility] Comment on above: Performed By: #### L 501.4021, L100.0100, L500.2500 #### [facility] [address] [place], [address] CNOVon 06-19-2024 CNOV Normal [facility] Chest PA and Lateralon 06-19 Chest PA and Lateral [facility] Imaging Services [address] [place] [address] Chest PA and Lateral MR#: [id number] Acct: [id number] Name: PAUL DAVENPORT Rep #: [id number] : 1975 F 49 From: Yoel denis MD PCP: MELANIA Whatley Status: [facility] ER Study: Chest PA and Lateral Date of Exam: 06/19/24 Exam# [id number] Ordering Dr: Merle Olson PROCEDURE: CHEST PA AND LATERAL 06/19/2024 REASON FOR EXAM: CHEST PAIN TECHNIQUE: Frontal and lateral views of the chest. COMPARISON: 08/09/2019 FINDINGS: Hardware: None Heart: Heart size is mildly enlarged. Mediastinum: The mediastinal contour is stable. Lungs: Mild bibasilar atelectasis. No focal consolidation. No pneumothorax. No pleural effusion. Mild interstitial thickening Bones: The bones are unremarkable. RAD/Chest PA and Lateral IMPRESSION: Findings suggestive of vascular congestion. Reading Location: [facility] CC: MELANIA Brush; BILLIE Edgar Tax Analyst: Signed Normal [facility] D-Dimer Quantitative (DVT/PE )on 06-19-2024 D-DIMER QUANT 0.40 FEU/ug/m Normal 0.27-0.49 [facility] Comment on above: Result Comment: NORM AL D-Dimer level (<0.50) indicates no DVT or PE. Performed By: #### L 300.8000 #### [facility] [address] [facility] [place], [address] Emergency Department Summary on 06-19-2024 Emergency Department Summary [facility] Medical Records Department [address] [place] [address] Emergency Department Summary 06/19/24 MR#: [id number] Acct: [id number] Name: PAUL DAVENPORT Rep #: [id number] : 1975 49 From: Merle WISE PCP: MELANIA Whatley Status:DEP ER Location: ED HPI History of Present Illness Chief Complaint: Chest Pain Narrative Narrative: Patient presenting today with pain/tightness below her breasts bilaterally that has been ongoing over the last several days. She reports a chronic productive cough due to her smoking history and history of asthma. She reports that she has been taking doxycycline over the last week or so due to a URI. She reports that she has been treated with multiple different antibiotics over the last several months for URIs. She takes Lasix as needed for bilateral lower extremity edema. Over the past 3 days she has been taking 40 mg Lasix daily. She has had minimal improvement in her leg edema. She reports that she recently had a echocardiogram, she denies being diagnosed with CHF. She has a PMH of HTN, tobacco abuse, asthma, depression. PE Risk Factors: Negative for Recent Travel/Surgery, Recent Immobilization, Prior DVT or PE or Cancer [facility] Medical History Asthma Hypertension Migraine Bulimia Lesion of spleen Endometriosis Heart murmur Aortic stenosis Acid reflux Depression Fibromyalgia Home Medications ???Medication ???Instructions ???Recorded ???Last Taken ???Type albuterol sulfate 90 mcg/actuation 2 puff inhalation Q4H PRN PRN Unknown History aerosol inhaler wheezing cholecalciferol (vitamin D3) 25 50 mcg PO DAILY 08/09/23 Unknown H istory mcg (1,000 unit) tablet (Vitamin D3) clobetasol 0.05 % topical ointment 1 applic topical BID 08/09/23 Un known History duloxetine 60 mg capsule,delayed 60 mg PO DAILY 08/09/23 Unknown Hi story release (Cymbalta) esomeprazole magnesium 40 mg 40 mg PO BID 08/09/23 Unknown Hist ory capsule,delayed release (Nexium) fluoxetine 40 mg capsule 80 mg PO DAILY 08/09/23 Unknown Hi story fluticasone furoate 200 1 inh inhalation DAILY 08/09/23 Un known History mcg-vilanterol 25 mcg/dose inhalation powder hydroxyzine pamoate 25 mg capsule 25 mg PO TID PRN PRN anxiety 07/21 Unknown History lisinopril 10 mg tablet 10 mg PO DAILY 08/09/23 Unknown Hi story loratadine 10 mg tablet 10 mg PO DAILY 08/09/23 Unknown Hi story (Allerclear) meloxicam 15 mg tablet 15 mg PO DAILY 08/09/23 Unknown Hi story pregabalin 75 mg capsule 75 mg PO BID 08/09/23 Unknown Hist ory propranolol 20 mg tablet 20 mg PO BID 08/09/23 Unknown Hist ory pseudoephedrine HCl 120 mg 120 mg PO BID 08/09/23 Unknown His tory tablet,extended release terbinafine HCl 250 mg tablet 250 mg PO DAILY 08/09/23 Unknown H istory prednisone 20 mg tablet 40 mg (2 x 20 mg) PO DAILY 5 days 06/19/24 Unknown Rx #10 tabs Allergy/AdvReac Type Severity Reaction Status Date / Time metformin AdvReac Severe Other Verified 06/19/24 18:54 Social History housing: house Smoking Status: Current every day smoker tobacco type: cigarettes details: Social substance use type: does not use ROS ROS ED Constitutional Constitutional ED: Denies chills or fever(s) Cardiovascular Cardiovascular: Reports chest pain Respiratory/Chest Respiratory/Chest: Reports cough, dyspnea and dyspnea on exertion; Denies wheezing Gastrointestinal Gastrointestinal: Denies abdominal pain, nausea or vomiting Musculoskeletal Musculoskeletal: Denies arthralgias or myalgias Integumentary Denies rash Neurologic Neurologic: Denies weakness EXAM Physical Exam Const Vital Signs: 06/19/24 18:53 06/19/24 19:33 06/19/24 19:33 Temperature 98.5 F Temperature Source Oral Pulse Rate 80 Respiratory Rate 18 Respiratory Effort Normal Non-Labored Respiratory Depth Respiratory Pattern Blood Pressure 178/112 H Blood Pressure Mean 134 Pulse Ox 95 98 Oxygen Delivery Method Room Air Room Air 06/19/24 19:33 06/19/24 19:53 06/19/24 20:00 Temperature Temperature Source Pulse Rate 84 85 Respiratory Rate 12 13 Respiratory Effort Normal Non-Labored Respiratory Depth Normal Respiratory Pattern Normal Blood Pressure 154/107 H 150/100 H Blood Pressure Mean 122 116 Pulse Ox 98 96 Oxygen Delivery Method Room Air 06/19/24 21:00 06/19/24 22:36 Temperature 98 F Temperature Source Pulse Rate 68 Respiratory Rate 15 Respiratory Effort Respiratory Depth Respiratory Pattern Blood Pressure 157/89 H 150/70 H Blood Pressu (more content not included)... Normal [facility] L499.0042on 06-19-2024 Trop T High Sen 10 ng/L Normal <=14 [facility] Comment on above: Performed By: #### L 499.0042 #### [facility] [address] [place], [address] L499.0043on 06-19-2024 Trop T High Sen Normal <=14 [facility] Comment on above: Result Comment: Raji ribera via OM: Ordered Performed By: #### L 499.0043 #### [facility] [address] [place], [address] l501.4021on 06-19-2024 Trop T High Sen 8 ng/L Normal <=14 [facility] Comment on above: Result Comment: Hemo lysis present, Results??could be affected. ?? Hemolysis present, Results??could be affected. ?? Performed By: #### L 501.4021, L100.0100, L500.2500 ####[facility] [address] [place], [address] L503.7505on 06-19-2024 Natriuretic peptide B (Bld) [Mass/Vol] 331 pg/mL Normal <=450 [facility] Comment on above: Result Comment: Hear t Failure Unlikely: < 300 pg/mL Heart Failure Likely < 50 Years: > 450 pg/mL 50-75 Years: > 900 pg/mL >75 Years: > 1800 pg/mL Performed By: #### L 503.7509 ####[facility] [address] [place], [address] CNPNon 06-13-2024 CNPN Telephone (OLMANMPHARINDER) -------- PAUL DAVENPORT ([id number]) 1975 F Date Time Provider Department 06/13/24 VASQUEZ BRUSH During your visit today, we recorded the following information about you: [place] Brush, AYAAN.SCHOLARSHIP COUNSELOR 06/13/2024 1:15 PM Signed RN from urology reached out. Patient with worsening depressive symptoms. Difficulty with transportation. She sees a psychiatrist. Referral placed for social work for check in [place] Allergies As of Date: 06/13/2024 Noted Allergy Reaction DUST 01/27/2009 Comments: extreme coughing, dry hives METFORMIN 04/09/2023 14 - Other: See Comments Date Reviewed: 04/24/2024 Reviewed by: Radha Hernandez tanbark laborer - Fully Assessed Reason for Visit: Orders [681] Primary Visit Diagnosis:Lack of access to transportation [Z59.82] Other Visit Diagnosis:Moderate episode of recurrent major depressive disorder (HCC) [F33.1] Order(s):PRIMARY CARE SOCIAL WORK CONSULT [[id number]] Order #: [id number]: 1 Prescriptions as of 06/13/2024 - Pregabalin (LYRICA) 200 mg capsule Take 1 capsule by mouth two times a day for 30 days. - aspirin 325 mg tablet Take 1 tablet by mouth once daily. Patient should start on June 09, 2024. - clopidogrel (PLAVIX) 75 mg tablet Take 1 tablet by mouth once daily. Patient should start on June 09, 2024. - fluticasone-salmeterol (WIXELA INHUB) 250-50 mcg/dose inhaler Inhale 1 puff as instructed two times a day. - propranolol (INDERAL) 20 mg tablet Take 1 tablet by mouth two times a day. - FLUoxetine (PROZAC) 40 mg capsule Take 2 capsules by mouth once daily. - esomeprazole (NEXIUM) 40 mg capsule Take 1 capsule by mouth two times a day. - albuterol HFA (PROVENTIL HFA, VENTOLIN HFA) 90 mcg/actuation inhaler Inhale 2 puffs as instructed every 4 hours as needed for wheezing/shortness of breath. - fluticasone (FLONASE) 50 mcg/actuation nasal spray Use 1 spray in each nostril once daily. - ibuprofen (MOTRIN) 800 mg tablet Take 1 tablet by mouth every 8 hours as needed for pain. - doxycycline hyclate (VIBRAMYCIN) 100 mg capsule Take 1 capsule by mouth once daily. - furosemide (LASIX) 20 mg tablet Take 1 tablet by mouth once daily as needed. - SUMAtriptan (IMITREX) 50 mg tablet Take 1 tablet (50 mg) by mouth as needed for migraine headache (see administration instructions). May repeat dose after 2 hours if needed. Maximum daily dose is 200 mg per day. - methocarbamol (ROBAXIN) 500 mg tablet Take 1 tablet by mouth two times a day as needed. - ketotifen fumarate (ZADITOR) 0.025 % (0.035 %) ophthalmic solution Use 1 Drop in both eyes two times a day for 180 days. - nicotine (NICODERM) 21 mg/24 hr Apply 1 Patch as directed every 24 hours. - polyethylene glycol 3350 (MIRALAX) 17 gram packet Take 17 g by mouth once daily. Dissolve dose in 4 - 8 ounces of liquid and take as directed. - LORazepam (ATIVAN) 1 mg tablet 1 mg. - cholecalciferol (VITAMIN D3) 1,000 unit tab tablet Take 2 tablets by mouth once daily. - levonorgestrel (MIRENA) 20 mcg/24 hr (5 years) IUD 1 Each by INTRAUTERINE route one time only. Problem List As Of Date 06/13/2024 Noted Resolved Bicuspid AV/AI.. 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] 07/31/2001 02/09/2017 Depressive disorder, not elsewhere classified [*07/31/2001 12/21/2015 Endometriosis of other specified sites [N80.8] 07/31/2001 02/09/2017 ESOPHAGEAL REFLUX [K21.9] 07/31/2001 5.2.1 CHRONIC POST TRAUMA H/A W/ MINOR HEAD TRA*05/19/2003 02/09/2017 Allergic Rhinitis [J30.9] 03/05/2009 Bulimia nervosa, unspecified severity [F50.20] 04/08/2009 Vitamin B12 Deficiency [E53.8] 06/23/2009 Dysmenorrhea [N94.6] Routine gynecological examination [Z01.419] 10/23/2012 02/09/2017 Tobacco abuse [Z72.0] 05/11/2021 History of endometriosis [Z87.42] 01/28/2015 Moderate episode of recurrent major depressive *12/21/2015 Raynaud's disease without gangrene [I73.00] 01/14/2016 Fibromyalgia [M79.7] 01/17/2016 Migraine without aura and without status migrai*01/17/2016 Encounter for monitoring proton pump inhibitor *02/09/2017 05/11/2021 Bicuspid aortic valve [Q23.81] 02/09/2017 Obesity, Class I, BMI 30-34.9 [E66.811] 02/09/2017 05/11/2021 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] 02/09/2017 LEONARD (generalized anxiety disorder) [F41.1] 04/11/2017 Risk and functional assessment [Z13.9] 06/04/2017 05/11/2021 Rectal prolapse [K62.3] 03/21/2018 08/19/2018 RP (rectal prolapse) [K62.3] 03/21/2018 04/11/2018 Hx of migraines [Z86.69] 04/03/2018 05/11/2021 Nicotine use disorder, F17.2 [F17.200] 04/12/2018 Mild intermittent asthma without complication [*05/28/2019 Obesity, Class III, BMI 40-49.9 (morbid obesity*05/11/2021 Dyslipidemia [E78.5] 05/19/2021 Prediabetes [R73.03] 05/19/2021 Obesity, Class II, BMI 35-39.9 [E66.812] 03/31/2022 Chronic bilateral low back pain without sciatic* (more content not included)... 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 Magdalena Thomas April 25, 2024 9:28 AM Allergies As of Date: 04/25/2024 Noted Allergy Reaction DUST 01/27/2009 Comments: extreme coughing, dry hives METFORMIN 04/09/2023 14 - Other: See Comments Date Reviewed: 04/24/2024 Reviewed by: Radha Hernandez, tanbark laborer - Fully Assessed Prescriptions as of 04/25/2024 - doxycycline hyclate (VIBRAMYCIN) 100 mg capsule Take 1 capsule by mouth once daily. - furosemide (LASIX) 20 mg tablet Take 1 tablet by mouth once daily as needed. - SUMAtriptan (IMITREX) 50 mg tablet Take 1 tablet (50 mg) by mouth as needed for migraine headache (see administration instructions). May repeat dose after 2 hours if needed. Maximum daily dose is 200 mg per day. - fluticasone (FLONASE) 50 mcg/actuation nasal spray Use 1 [place] in each nostril once daily. - methocarbamol (ROBAXIN) 500 mg tablet Take 1 tablet by mouth two times a day as needed. - pregabalin (LYRICA) 225 mg capsule Take 1 capsule by mouth two times a day for 30 days. - ketotifen fumarate (ZADITOR) 0.025 % (0.035 %) ophthalmic solution Use 1 Drop in both eyes two times a day for 180 days. - nicotine (NICODERM) 21 mg/24 hr Apply 1 Patch as directed every 24 hours. - FLUoxetine (PROZAC) 40 mg capsule Take 2 capsules by mouth once daily. - esomeprazole (NEXIUM) 40 mg capsule Take 1 capsule by mouth two times a day. - albuterol HFA (PROVENTIL HFA, VENTOLIN HFA) 90 mcg/actuation inhaler Inhale 2 Puffs as instructed every 4 hours as needed for wheezing/shortness of breath. - ibuprofen (MOTRIN) 800 mg tablet Take 1 tablet by mouth every 8 hours as needed for pain. - propranolol (INDERAL) 20 mg tablet Take 1 tablet by mouth two times a day. - polyethylene glycol 3350 (MIRALAX) 17 gram packet Take 17 g by mouth once daily. Dissolve dose in 4 - 8 ounces of liquid and take as directed. - LORazepam (ATIVAN) 1 mg tablet 1 mg. - fluticasone-salmeterol (WIXELA INHUB) 250-50 mcg/dose inhaler Inhale 1 Puff as instructed two times a day. - cholecalciferol (VITAMIN D3) 1,000 unit tab tablet Take 2 tablets by mouth once daily. - levonorgestrel (MIRENA) 20 mcg/24 hr (5 years) IUD 1 Each by INTRAUTERINE route one time only. Problem List As Of Date 04/25/2024 Noted Resolved Bicuspid AV/AI.. 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] 07/31/2001 02/09/2017 Depressive disorder, not elsewhere classified [*07/31/2001 12/21/2015 Endometriosis of other specified sites [N80.8] 07/31/2001 02/09/2017 ESOPHAGEAL REFLUX [K21.9] 07/31/2001 5.2.1 CHRONIC POST TRAUMA H/A W/ MINOR HEAD TRA*05/19/2003 02/09/2017 Allergic Rhinitis [J30.9] 03/05/2009 Bulimia nervosa, unspecified severity [F50.20] 04/08/2009 Vitamin B12 Deficiency [E53.8] 06/23/2009 Dysmenorrhea [N94.6] Routine gynecological examination [Z01.419] 10/23/2012 02/09/2017 Tobacco abuse [Z72.0] 05/11/2021 History of endometriosis [Z87.42] 01/28/2015 Moderate episode of recurrent major depressive *12/21/2015 Raynaud's disease without gangrene [I73.00] 01/14/2016 Fibromyalgia [M79.7] 01/17/2016 Migraine without aura and without status migrai*01/17/2016 Encounter for monitoring proton pump inhibitor *02/09/2017 05/11/2021 Bicuspid aortic valve [Q23.81] 02/09/2017 Obesity, Class I, BMI 30-34.9 [E66.811] 02/09/2017 05/11/2021 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] 02/09/2017 LEONARD (generalized anxiety disorder) [F41.1] 04/11/2017 Risk and functional assessment [Z13.9] 06/04/2017 05/11/2021 Rectal prolapse [K62.3] 03/21/2018 08/19/2018 RP (rectal prolapse) [K62.3] 03/21/2018 04/11/2018 Hx of migraines [Z86.69] 04/03/2018 05/11/2021 Nicotine use disorder, F17.2 [F17.200] 04/12/2018 Mild intermittent asthma without complication [*05/28/2019 Obesity, Class III, BMI 40-49.9 (morbid obesity*05/11/2021 Dyslipidemia [E78.5] 05/19/2021 Prediabetes [R73.03] 05/19/2021 Obesity, Class II, BMI 35-39.9 [E66.812] 03/31/2022 Chronic bilateral low back pain without sciatic*04/26/2022 Bilateral leg pain [M79.604, M79.605] 04/26/2022 Muscle spasm of back [M62.830] 04/26/2022 Bilateral hip pain [M25.551, M25.552] 04/26/2022 Foot pain, bilateral [M79.671, M79.672] 04/26/2022 Chronic pain of both knees [M25.561, M25.562, G*04/26/2022 Decreased pedal pulses [R09.89] 04/26/2022 Housing instability [Z59.819] 04/26/2022 12/22/2022 Domestic concerns [Z65.8] 04/26/2022 12/22/2022 Lack of access to transportation [Z59.82] 04/26/2022 Aortic va (more content not included)... Normal [facility] MRA BRAIN WO/W IVCONon 04-24 MRA BRAIN WO/W IVCON Normal [facility] Doreen 04-16-2024 [place] Tele[place] (COREEN) -------- PAUL [id number]) 1975 F Date Time Provider Department 04/16/24 VASQUEZ BRUSH During your visit today, we recorded the following information about you: Jeanine Talamantes 04/16/2024 11:54 AM Signed Patient called and spoke to this PSS in hematology and stated that she thought our office had called her but she does not want to follow-up with Hematology at this time. She stated that she had been taking liquid iron to help her iron levels. She is also asking if her PCP Vasquez Brush CNP would reorder the ultrasound of the kidneys/bladder and the EMG testing? The orders are set to and she can not come in for they (04/18/24) but she does want to get them schedule and done soon Please advise and call patient back Jeanine Vasquez Moura APRN.CNP 04/17/2024 9:58 AM Signed Thank you! I placed new orders for renal US and EMG, please let patient know Vasquez Brush APRN.Jessica Iverson MA 04/17/2024 1:35 PM Signed Patient is informed Jessica Milian MA Allergies As of Date: 04/16/2024 Noted Allergy Reaction DUST 01/27/2009 Comments: extreme coughing, dry hives METFORMIN 04/09/2023 14 - Other: See Comments Date Reviewed: 02/28/2024 Reviewed by: Katie Valverde APRN.CNP - Fully Assessed Reason for Visit: Patient Question [1477] Primary Visit Diagnosis:Numbness and tingling in both hands [R20.0, R20.2] Other Visit Diagnosis:Cyst of right kidney [N28.1] Order(s):EMG(NEURO/NI) [[id number]] Order #: [id number]: 1 FUTURE US KIDNEY/BLADDER [[id number]] Order #: [id number] FUTURE Prescriptions as of 04/17/2024 - doxycycline hyclate (VIBRAMYCIN) 100 mg capsule Take 1 capsule by mouth once daily. - furosemide (LASIX) 20 mg tablet Take 1 tablet by mouth once daily as needed. - SUMAtriptan (IMITREX) 50 mg tablet Take 1 tablet (50 mg) by mouth as needed for migraine headache (see administration instructions). May repeat dose after 2 hours if needed. Maximum daily dose is 200 mg per day. - fluticasone (FLONASE) 50 mcg/actuation nasal spray Use 1 [place] in each nostril once daily. - methocarbamol (ROBAXIN) 500 mg tablet Take 1 tablet by mouth two times a day as needed. - pregabalin (LYRICA) 225 mg capsule Take 1 capsule by mouth two times a day for 30 days. - ketotifen fumarate (ZADITOR) 0.025 % (0.035 %) ophthalmic solution Use 1 Drop in both eyes two times a day for 180 days. - nicotine (NICODERM) 21 mg/24 hr Apply 1 Patch as directed every 24 hours. - FLUoxetine (PROZAC) 40 mg capsule Take 2 capsules by mouth once daily. - esomeprazole (NEXIUM) 40 mg capsule Take 1 capsule by mouth two times a day. - albuterol HFA (PROVENTIL HFA, VENTOLIN HFA) 90 mcg/actuation inhaler Inhale 2 Puffs as instructed every 4 hours as needed for wheezing/shortness of breath. - ibuprofen (MOTRIN) 800 mg tablet Take 1 tablet by mouth every 8 hours as needed for pain. - propranolol (INDERAL) 20 mg tablet Take 1 tablet by mouth two times a day. - polyethylene glycol 3350 (MIRALAX) 17 gram packet Take 17 g by mouth once daily. Dissolve dose in 4 - 8 ounces of liquid and take as directed. - LORazepam (ATIVAN) 1 mg tablet 1 mg. - fluticasone-salmeterol (WIXELA INHUB) 250-50 mcg/dose inhaler Inhale 1 Puff as instructed two times a day. - cholecalciferol (VITAMIN D3) 1,000 unit tab tablet Take 2 tablets by mouth once daily. - levonorgestrel (MIRENA) 20 mcg/24 hr (5 years) IUD 1 Each by INTRAUTERINE route one time only. Problem List As Of Date 04/16/2024 Noted Resolved Bicuspid AV/AI.. 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] 07/31/2001 02/09/2017 Depressive disorder, not elsewhere classified [*07/31/2001 12/21/2015 Endometriosis of other specified sites [N80.8] 07/31/2001 02/09/2017 ESOPHAGEAL REFLUX [K21.9] 07/31/2001 5.2.1 CHRONIC POST TRAUMA H/A W/ MINOR HEAD TRA*05/19/2003 02/09/2017 Allergic Rhinitis [J30.9] 03/05/2009 Bulimia nervosa, unspecified severity [F50.20] 04/08/2009 Vitamin B12 Deficiency [E53.8] 06/23/2009 Dysmenorrhea [N94.6] Routine gynecological examination [Z01.419] 10/23/2012 02/09/2017 Tobacco abuse [Z72.0] 05/11/2021 History of endometriosis [Z87.42] 01/28/2015 Moderate episode of recurrent major depressive *12/21/2015 Raynaud's disease without gangrene [I73.00] 01/14/2016 Fibromyalgia [M79.7] 01/17/2016 Migraine without aura and without status migrai*01/17/2016 Encounter for monitoring proton pump inhibitor *02/09/2017 05/11/2021 Bicuspid aortic valve [Q23.81] 02/09/2017 Obesity, Class I, BMI 30-34.9 [E66.811] 02/09/2017 05/11/2021 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 Normal [facility] CNPMonet 04-14-2024 [place] Telephone (COREEN) -------- PAUL DAVENPORT ([id number]) 1975 F Date Time Provider Department 04/14/24 VASQUEZ BRUSH During your visit today, we recorded the following information about you: Rosemary Arteaga MA 04/14/2024 10:38 AM Signed Received fax from [employer] requesting form to be signed and docs (ov notes) for cpap . Placed in red folder. JENIFER Hanson Kristin C, APRN.[place] 04/21/2024 12:24 PM Signed Thank you, form is completed and signed. Vasquez Brush APRN.[place] [employer] JENIFER Riley 04/21/2024 1:12 PM Signed Faxed. Placed in scanning. Rosemary Arteaga MA Allergies As of Date: 04/14/2024 Noted Allergy Reaction DUST 01/27/2009 Comments: extreme coughing, dry hives METFORMIN 04/09/2023 14 - Other: See Comments Date Reviewed: 02/28/2024 Reviewed by: Katie Valverde APRN.CNP - Fully Assessed Reason for Visit: Electronic Communication [890] Cmt: Cpap form Prescriptions as of 04/21/2024 - doxycycline hyclate (VIBRAMYCIN) 100 mg capsule Take 1 capsule by mouth once daily. - furosemide (LASIX) 20 mg tablet Take 1 tablet by mouth once daily as needed. - SUMAtriptan (IMITREX) 50 mg tablet Take 1 tablet (50 mg) by mouth as needed for migraine headache (see administration instructions). May repeat dose after 2 hours if needed. Maximum daily dose is 200 mg per day. - fluticasone (FLONASE) 50 mcg/actuation nasal spray Use 1 [place] in each nostril once daily. - methocarbamol (ROBAXIN) 500 mg tablet Take 1 tablet by mouth two times a day as needed. - pregabalin (LYRICA) 225 mg capsule Take 1 capsule by mouth two times a day for 30 days. - ketotifen fumarate (ZADITOR) 0.025 % (0.035 %) ophthalmic solution Use 1 Drop in both eyes two times a day for 180 days. - nicotine (NICODERM) 21 mg/24 hr Apply 1 Patch as directed every 24 hours. - FLUoxetine (PROZAC) 40 mg capsule Take 2 capsules by mouth once daily. - esomeprazole (NEXIUM) 40 mg capsule Take 1 capsule by mouth two times a day. - albuterol HFA (PROVENTIL HFA, VENTOLIN HFA) 90 mcg/actuation inhaler Inhale 2 Puffs as instructed every 4 hours as needed for wheezing/shortness of breath. - ibuprofen (MOTRIN) 800 mg tablet Take 1 tablet by mouth every 8 hours as needed for pain. - propranolol (INDERAL) 20 mg tablet Take 1 tablet by mouth two times a day. - polyethylene glycol 3350 (MIRALAX) 17 gram packet Take 17 g by mouth once daily. Dissolve dose in 4 - 8 ounces of liquid and take as directed. - LORazepam (ATIVAN) 1 mg tablet 1 mg. - fluticasone-salmeterol (WIXELA INHUB) 250-50 mcg/dose inhaler Inhale 1 Puff as instructed two times a day. - cholecalciferol (VITAMIN D3) 1,000 unit tab tablet Take 2 tablets by mouth once daily. - levonorgestrel (MIRENA) 20 mcg/24 hr (5 years) IUD 1 Each by INTRAUTERINE route one time only. Problem List As Of Date 04/14/2024 Noted Resolved Bicuspid AV/AI.. 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] 07/31/2001 02/09/2017 Depressive disorder, not elsewhere classified [*07/31/2001 12/21/2015 Endometriosis of other specified sites [N80.8] 07/31/2001 02/09/2017 ESOPHAGEAL REFLUX [K21.9] 07/31/2001 5.2.1 CHRONIC POST TRAUMA H/A W/ MINOR HEAD TRA*05/19/2003 02/09/2017 Allergic Rhinitis [J30.9] 03/05/2009 Bulimia nervosa, unspecified severity [F50.20] 04/08/2009 Vitamin B12 Deficiency [E53.8] 06/23/2009 Dysmenorrhea [N94.6] Routine gynecological examination [Z01.419] 10/23/2012 02/09/2017 Tobacco abuse [Z72.0] 05/11/2021 History of endometriosis [Z87.42] 01/28/2015 Moderate episode of recurrent major depressive *12/21/2015 Raynaud's disease without gangrene [I73.00] 01/14/2016 Fibromyalgia [M79.7] 01/17/2016 Migraine without aura and without status migrai*01/17/2016 Encounter for monitoring proton pump inhibitor *02/09/2017 05/11/2021 Bicuspid aortic valve [Q23.81] 02/09/2017 Obesity, Class I, BMI 30-34.9 [E66.811] 02/09/2017 05/11/2021 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] 02/09/2017 LEONARD (generalized anxiety disorder) [F41.1] 04/11/2017 Risk and functional assessment [Z13.9] 06/04/2017 05/11/2021 Rectal prolapse [K62.3] 03/21/2018 08/19/2018 RP (rectal prolapse) [K62.3] 03/21/2018 04/11/2018 Hx of migraines [Z86.69] 04/03/2018 05/11/2021 Nicotine use disorder, F17.2 [F17.200] 04/12/2018 Mild intermittent asthma without complication [*05/28/2019 Obesity, Class III, BMI 40-49.9 (morbid obesity*05/11/2021 Dyslipidemia [E78.5] 05/19/2021 Prediabetes [R73.03] 05/19/2021 Obesity, Class II, BMI 35-39.9 [E66.812] 03/31/2022 Chronic bilateral low back pain without sciatic*04/26/2022 Bilateral leg pain [M79.604, M79.605] 04/26/2022 Muscle spasm of back [M62.830] 04/26/2022 Bilateral hip pain [M25.551, M25.552] 04/26/2022 Foot pain, bilateral [M79.671, M79.672] 04/26/2022 Chronic pain of both knees [M25.561, M25.562, G*04/26/2022 (more content not included)... Normal [facility] MRI BRAIN WO IVCONon 025 MRI BRAIN WO IVCON Normal [facility] CBC panel Auto (Bld)on 04-07 Erythrocyte distribution width (RBC) [Ratio] 14.6 % Normal 11.5-15.0 [facility] Comment on above: Order Comment: Speci men Type: BLOOD SPECIMENOrdering Facility: [facility] Address: [address] [place] [address] Performed By: #### 5 8410-2 ####[facility] LABCLIA [id number] [place] [address] [place] Hematocrit (Bld) [Volume fraction] 41.5 % Normal 36.0-46.0 [facility] Comment on above: Order Comment: Speci men Type: BLOOD SPECIMENOrdering Facility: [facility] Address: [address] [place] [address] Performed By: #### 5 8410-2 ####[facility] LABIA [id number] [place] [address] [place] Hemoglobin (Bld) [Mass/Vol] 13.3 g/dL Normal 11.5-15.5 [facility] Comment on above: Order Comment: Speci men Type: BLOOD SPECIMENOrdering Facility: [facility] Address: [address] [place] [address] Performed By: #### 5 8410-2 ####[facility] LABIA [id number] [place] [address] [place] MCH (RBC) [Entitic mass] 29.5 pg Normal 26.0-34.0 [facility] Comment on above: Order Comment: Speci men Type: BLOOD SPECIMENOrdering Facility: [facility] Address: [address] [place] [address] Performed By: #### 5 8410-2 ####[facility] LABCLIA [id number] [place] [address] [place] MCHC (RBC) [Mass/Vol] 32.0 g/dL Normal 30.5-36.0 [facility] Comment on above: Order Comment: Speci men Type: BLOOD SPECIMENOrdering Facility: [facility] Address: [address] [place] [address] Performed By: #### 5 8410-2 ####[facility] LABCLIA [id number] [place] [address] [place] MCV (RBC) [Entitic vol] 92.0 fL Normal 80.0-100.0 [facility] Comment on above: Order Comment: Speci men Type: BLOOD SPECIMENOrdering Facility: [facility] Address: [address] [place] [address] Performed By: #### 5 8410-2 ####[facility] LABIA [id number] [place] [address] [place] Nucleated RBC (Bld) [#/Vol] 10*3/uL Normal <0.01 [facility] Comment on above: Order Comment: Speci men Type: BLOOD SPECIMENOrdering Facility: [facility] Address: [address] [place] [address] Performed By: #### 5 8410-2 ####[facility] LABIA [id number] [place] [address] [place] Platelet mean volume (Bld) [Entitic vol] 10.6 fL Normal 9.0-12.7 [facility] Comment on above: Order Comment: Speci men Type: BLOOD SPECIMENOrdering Facility: [facility] Address: [address] [place] [address] Performed By: #### 5 8410-2 ####[facility] LABCLIA [id number] [place] [address] [place] Platelets (Bld) [#/Vol] 370 10*3/uL Normal 150-400 [facility] Comment on above: Order Comment: Speci men Type: BLOOD SPECIMENOrdering Facility: [facility] Address: [address] [place] [address] Performed By: #### 5 8410-2 ####[facility] LABCLIA [id number] [address] [address] [place] RBC (Bld) [#/Vol] 4.51 10*6/uL Normal 3.90-5.20 [facility] Comment on above: Order Comment: Speci men Type: BLOOD SPECIMENOrdering Facility: [facility] Address: [address] [place] [address] Performed By: #### 5 8410-2 ####[facility] LABCLIA [id number] [place] [address] [place] WBC (Bld) [#/Vol] 11.25 10*3/uL High 3.70-11.00 [facility] Comment on above: Order Comment: Speci men Type: BLOOD SPECIMENOrdering Facility: [facility] Address: [address] [place] [address] Performed By: #### 5 8410-2 ####[facility] LABIA [id number] [place] [address] [place] [facility] Comprehensive metabolic 2000 panelon 04-07-2024 Albumin [Mass/Vol] 3.7 g/dL Low 3.9-4.9 [facility] Comment on above: Order Comment: Speci men Type: BLOOD SPECIMENOrdering Facility: [facility] Address: [address] [place] [address] Performed By: #### 2 4323-8, 3016-3 ####[facility] LABORATORYCLIA [id number] [place] [address] [place]#### 31324-0 ####[facility] LABORATORYCLIA [id number] [place] [address] [place] [facility] LABCLIA [id number] [place] [address] [place] ALP [Catalytic activity/Vol] 112 U/L Normal 34-123 [facility] Comment on above: Order Comment: Speci men Type: BLOOD SPECIMENOrdering Facility: [facility] Address: [address] [place] [address] Performed By: #### 2 4323-8, 6-3 ####[facility]ORATORYCLIA [id number] [place] [address] [place]#### 23627-3 ####[facility] LABORATORYCLIA [id number] [place] [address] [place] [facility] LABCLIA [id number] [place] [address] [place] ALT With P-5'-P [Catalytic activity/Vol] 17 U/L Normal 7-38 [facility] Comment on above: Order Comment: Speci men Type: BLOOD SPECIMENOrdering Facility: [facility] Address: [address] [place] [address] Performed By: #### 2 4323-8, 3015-3 ####[facility]ORATORYCLIA [id number] [place] [address] [place]#### 73822-8 ####[facility]ORATORYCLIA [id number] [place] [address] [place] [facility] LABCLIA [id number] [place] [address] [place] Anion gap [Moles/Vol] 11 mmol/L Normal 8-15 [facility] Comment on above: Order Comment: Speci men Type: BLOOD SPECIMENOrdering Facility: [facility] Address: [address] [place] [address] Performed By: #### 2 4323-8, 6-3 ####[facility]ORATORYCLIA [id number] [place] [address] [place]#### 00004-4 ####[facility]ORATORYCLIA [id number] [place] [address] [place] [facility] LABCLIA [id number] [place] [address] [place] AST With P-5'-P [Catalytic activity/Vol] 19 U/L Normal 13-35 [facility] Comment on above: Order Comment: Speci men Type: BLOOD SPECIMENOrdering Facility: [facility] Address: [address] [place] [address] Performed By: #### 2 4323-8, 3016-3 ####[facility]ORATORYCLIA [id number] [place] [address] [place]#### 70689-0 ####[facility]ORATORYCLIA [id number] [place] [address] [place] [facility] LABCLIA [id number] [place] [address] [place] Bilirubin [Mass/Vol] 0.2 mg/dL Normal 0.2-1.3 [facility] Comment on above: Order Comment: Speci men Type: BLOOD SPECIMENOrdering Facility: [facility] Address: [address] [place] [address] Performed By: #### 2 4323-8, 6-3 ####[facility]ORATORYCLIA [id number] [place] [address] [place]#### 44653-2 ####[facility]ORATORYCLIA [id number] [place] [address] [place] [facility] LABCLIA [id number] [place] [id number] [place] Calcium [Mass/Vol] 8.9 mg/dL Normal 8.5-10.2 [facility] Comment on above: Order Comment: Speci men Type: BLOOD SPECIMENOrdering Facility: [facility] Address: [facility] [place] [address] Performed By: #### 2 4323-8, 3016-3 ####[facility]ORATORYCLIA [id number] [place] [address] [place]#### 56934-4 ####[facility]ORATORYCLIA [id number] [place] [address] [place] [facility] LABCLIA [id number] [place] [address] [place] Chloride [Moles/Vol] 103 mmol/L Normal 98-107 [facility] Comment on above: Order Comment: Speci men Type: BLOOD SPECIMENOrdering Facility: [facility] Address: [address] [place] [address] Performed By: #### 2 4323-8, 6-3 ####[facility]ORATORYCLIA [id number] [place] [address] [place]#### 34732-8 ####[facility]ORATORYCLIA [id number] [place] [address] [place] [facility] LABCLIA [id number] [place] [address] [place] CO2 [Moles/Vol] 25 mmol/L Normal 22-30 [facility] Comment on above: Order Comment: Speci men Type: BLOOD SPECIMENOrdering Facility: [facility] Address: [address] [place] [address] Performed By: #### 2 4323-8, 6-3 ####[facility]ORATORYCLIA [id number] [place] [address] [place]#### 28348-0 ####[facility]ORATORYCLIA [id number] [place] [address] [place] [facility] LABCLIA [id number] [place] [address] [place] Creatinine [Mass/Vol] 0.73 mg/dL Normal 0.58-0.96 [facility] Comment on above: Order Comment: Speci men Type: BLOOD SPECIMENOrdering Facility: [facility] Address: [address] [place] [id number] Performed By: #### 2 4323-8, 6-3 ####[facility]ORATORYCLIA [id number] [address]#### [address]-4 ####[facility] [id number] [address] LABCLIA [id number] [address] Creatinine and Glomerular filtration rate.predicted panel (S/P/Bld) 102 mL/min/1.73m??? Normal >=60 [facility] Comment on above: Order Comment: Speci men Type: BLOOD SPECIMENOrdering Facility: [facility] Address: [address] [place] [address] Result Comment: Tsering mated Glomerular Filtration Rate (eGFR) is calculated using the 2020 CKD-EPI creatinine equation. This equation utilizes serum creatinine, sex, and age as parameters. The creatinine assay has traceable calibration to isotope dilution-mass spectrometry. Refer to KDIGO guidelines for clinical interpretation. In patients with unstable renal function, e.g. those with acute kidney injury, the eGFR may not accurately reflect actual GFR. Performed By: #### 2 4323-8, 3016-3 ####[facility] LABORATORYCLIA [id number] [address] OF [facility]#### 47887-7 ####[facility] [id number] [address] LABCLIA [id number] [place] [address] [place] Glucose [Mass/Vol] 70 mg/dL Low 74-99 [facility] Comment on above: Order Comment: Ulises walsh Type: BLOOD SPECIMENOrdering Facility: [facility] Address: [address] [place] [address] Result Comment: The [place] [employer] (ADA) provides guidance for cutoff values for fasting glucose and random glucose. The ADA defines fasting as no caloric intake for at least 8 hours. Fasting plasma glucose results between 100 to 125 mg/dL indicate increased risk for diabetes (prediabetes).Fasting plasma glucose results greater than or equal to 126 mg/dL meet the criteria for diagnosis of diabetes. In the absence of unequivocal hyperglycemia, results should be confirmed by repeat testing. In a patient with classic symptoms of hyperglycemia or hyperglycemic crisis, random plasma glucose results greater than or equal to 200 mg/dL meet the criteria for diagnosis of diabetes.Reference: Standards of Medical Care in Diabetes 2016, [place] [employer]. Diabetes Care. 2016.39(Suppl 1). Performed By: #### 2 4323-8, 6-3 ####[facility]ORATORYCLIA [id number] [address] [place]#### 27919-8 ####[facility] LABORATORYCLIA [id number] [place], [place] [address] [place] [address] LABCLIA [id number] [place] [address] [place] Potassium [Moles/Vol] 4.9 mmol/L Normal 3.7-5.1 [facility] Comment on above: Order Comment: Speci men Type: BLOOD SPECIMENOrdering Facility: [facility] Address: [address] [place] [address] Performed By: #### 2 4328, 3015-3 ####[facility]ATORYCLIA [id number] [place] [address] [place]#### 82080-3 ####[facility]ATORYCLIA [id number] [place], [place] [address] [place] [address] LABCLIA [id number] [place] [address] [place] Protein [Mass/Vol] 6.8 g/dL Normal 6.3-8.0 [facility] Comment on above: Order Comment: Speci men Type: BLOOD SPECIMENOrdering Facility: [facility] Address: [address] [place] [address] Performed By: #### 2 4323-8, 6-3 ####[facility]ATORYCLIA [id number] [place] [address] [place]#### 41393-7 ####[facility]ATORYCLIA [id number] [place] [address] [place] [facility] LABCLIA [id number] [place] [address] [place] Sodium [Moles/Vol] 139 mmol/L Normal 136-144 [facility] Comment on above: Order Comment: Speci men Type: BLOOD SPECIMENOrdering Facility: [facility] Address: [address] [place] [address] Performed By: #### 2 4323-8, 3016-3 ####[facility]ATORYCLIA [id number] [place] [address] [place]#### 36069-9 ####[facility]ORYCLIA [id number] [address] STATES OF [facility] LABCLIA [id number] [place] [address] [place] Urea nitrogen [Mass/Vol] 15 mg/dL Normal 7-21 [facility] Comment on above: Order Comment: Speci men Type: BLOOD SPECIMENOrdering Facility: [facility] Address: [address] [place] [address] Performed By: #### 2 4323-8, 3016-3 ####[facility]ORYCLIA [id number] [place] [address] [place]#### 14276-3 ####[facility] LABORATORYCLIA [id number] [address] STATES OF [facility] LABCLIA [id number] [place] [address] [place] HIV 1+2 Ab IA Qlon 5 HIV 1 and 2 Ab IA.rapid Nom (S/P/Bld) Normal [facility] Comment on above: Order Comment: Speci men Type: BLOOD SPECIMENOrdering Facility: [facility] Address: [address] [place] [address] Result Comment: Test not indicated. Performed By: #### 7 3752-8, 59611-7 ####[facility] LABIA [id number] [place] [address] [place] HIV 1+2 Ab+HIV1 p24 Ag IA Ql Non-Reactive Normal Nonreactive [facility] Comment on above: Order Comment: Speci men Type: BLOOD SPECIMENOrdering Facility: [facility] Address: [address] [place] [address] Performed By: #### 7 3752-8, 53580-7 ####[facility] [id number] [place] [address] [place] HIV immunoassay testing algorithm interpretation (S/P/Bld) [Interp] Normal [facility] Comment on above: Order Comment: Speci men Type: BLOOD SPECIMENOrdering Facility: [facility] Address: [address] [place] [address] Result Comment: No e vidence of HIV-1 or HIV-2 infection. Should recent infection be suspected, repeat testing may be considered 2-3 weeks after this draw.[place] Rev. Code 3701.243(E): This information has been disclosed to you from confidential records protected from disclosure by state law. ???You shall make no further disclosure of this information without the specific, written, and informed release of the individual to whom it pertains or as otherwise permitted by state law. A general authorization for the release of medical or other information is not sufficient for the purpose of the release of HIV test results or diagnoses. Performed By: #### 7 3752-8, 24604-0 ####[facility] LABIA [id number] [place] [address] [place] HbA1c (Bld)on 04-07-2024 Average glucose Estimated from glycated hemoglobin (Bld) [Mass/Vol] 131 mg/dL Normal [facility] Comment on above: Order Comment: Speci men Type: BLOOD SPECIMENOrdering Facility: [facility] Address: [address] [place] [address] Result Comment: eAG: (Estimated average glucose) is a calculated value from HgbA1c and is digital media representative of the average blood glucose level in the last 2-3 month period. Performed By: #### 5 5454-3 ####[facility] LABCLIA [id number] [place] [address] [place] HbA1c (Bld) [Mass fraction] 6.2 % High 4.3-5.6 [facility] Comment on above: Order Comment: Ulises walsh Type: BLOOD SPECIMENOrdering Facility: [facility] Address: [address] [place] [address] Result Comment: Amer ican Diabetes Association guidelines indicate that patients with HgbA1c in the range 5.7-6.4% are at increased risk for development of diabetes, and intervention by lifestyle modification may be beneficial. HgbA1c greater or equal to 6.5% is considered diagnostic of diabetes. Performed By: #### 5 5454-3 ####[facility] LABCLIA [id number] [address] OF [facility] Lipid 1996 panelon 5 Cholesterol [Mass/Vol] 172 mg/dL Normal <200 [facility] Comment on above: Order Comment: Ulises walsh Type: BLOOD SPECIMENOrdering Facility: [facility] Address: [address] [place] [address] Result Comment: <200 mg/dL, Desirable 200-239 mg/dL, Borderline high>239 mg/dL, High Performed By: #### 2 4323-8, 3016-3 ####[facility]ATORYCLIA [id number] [place] [address] [place]#### 38821-4 ####[facility]ORYCLIA [id number] [place] [address] [place] [facility] LABCLIA [id number] [address] STATES OF [place] Cholesterol in HDL [Mass/Vol] 32 mg/dL Low >39 [facility] Comment on above: Order Comment: Ulises walsh Type: BLOOD SPECIMENOrdering Facility: [facility] Address: [address] [place] [address] Result Comment: 40-5 9 mg/dL, Acceptable>59 mg/dL, High: Negative risk factor for coronary heart disease<40 mg/dL, Low: Positive risk factor for coronary heart disease Performed By: #### 2 4323-8, 3016-3 ####[facility]ORYCLIA [id number] [address] STATES OF [place]#### 45910-9 ####[facility]ORYCLIA [id number] [address] STATES OF [facility] LABCLIA [id number] [place] [address] [place] Cholesterol in LDL [Mass/Vol] 116 mg/dL High <100 [facility] Comment on above: Order Comment: Speci men Type: BLOOD SPECIMENOrdering Facility: [facility] Address: [address] [place] [address] Result Comment: <100 mg/dL, Optimal 100-129 mg/dL, Near optimal/above optimal 130-159 mg/dL, Borderline high 160-189 mg/dL, High>189 mg/dL, Very highSecondary prevention optimal LDL Cholesterol levels are recommended to be < 70 mg/dL Performed By: #### 2 4323-8, 3016-3 ####[facility]ATORYCLIA [id number] [place], [place] [address] [place] [address] [place]#### 31808-1 ####[facility]ORYCLIA [id number] [place], [place] [address] [place] [address] STATES OF [facility] LABCLIA [id number] [place] [address] [place] Cholesterol in LDL/Cholesterol in HDL [Mass ratio] 3.63 {ratio} High <2.54 [facility] Comment on above: Order Comment: Speci men Type: BLOOD SPECIMENOrdering Facility: [facility] Address: [address] [place] [address] Result Comment: Refe christinace:1. National Cholesterol Education Program ATP III Guideline At-A-Glance Quick Desk Reference: National Heart, Lung, and Blood [place]. National Institutes of Health. 2001: NIH Publication No. 01-3305.2. An International Atherosclerosis Society position paper: global recommendations for the management of dyslipidemia: executive summary, Atherosclerosis. 2014: 232(2):410-413. Performed By: #### 2 4323-8, 6-3 ####[facility]ORYCLIA [id number] [address]#### 23886-4 ####[facility] LABORATORYCLIA [id number] [address] LABCLIA [id number] [address] [place] Cholesterol in VLDL [Mass/Vol] 24 mg/dL Normal <30 [facility] Comment on above: Order Comment: Speci men Type: BLOOD SPECIMENOrdering Facility: [facility] Address: [address] [place] [address] Performed By: #### 2 4328, 3015-3 ####[facility]ORYCLIA [id number] [address] OF [place]#### 79651-1 ####[facility] LABORATORYCLIA [id number] [address] LABCLIA [id number] [address] OF [facility] Cholesterol non HDL [Mass/Vol] 140 mg/dL High <130 [facility] Comment on above: Order Comment: Speci men Type: BLOOD SPECIMENOrdering Facility: [facility] Address: [address] [place] [address] Result Comment: <130 mg/dL, Optimal 130-159 mg/dL, Near optimal/above optimal 160-189 mg/dL, Borderline high 190-219 mg/dL, High>219 mg/dL, Very highSecondary prevention optimal non HDL Cholesterol levels are recommended to be <100 mg/dL Performed By: #### 2 4323-8, 3016-3 ####[facility]ATORYCLIA [id number] [place] [address] [place]#### 15242-8 ####[facility]ORYCLIA [id number] [place] [address] [place] OF [facility] LABCLIA [id number] [place] [address] [place] Cholesterol.total/Chol esterol in HDL [Mass ratio] 5.38 {ratio} High <5.10 [facility] Comment on above: Order Comment: Speci men Type: BLOOD SPECIMENOrdering Facility: [facility] Address: [address] [place] [address] Performed By: #### 2 4323-8, 3015-3 ####[facility]ATORYCLIA [id number] [place] [address] [place]#### 79792-6 ####[facility]ORYCLIA [id number] [place], [place] [address] [place] [address] STATES OF [facility] LABCLIA [id number] [place] [address] [place] FASTING TIME 8 hrs Normal [facility] Comment on above: Order Comment: Speci men Type: BLOOD SPECIMENOrdering Facility: [facility] Address: [address] [place] [address] Performed By: #### 2 4323-8, 3015-3 ####[facility]ATORYCLIA [id number] [place] [address] [place]#### 35332-3 ####[facility]ORYCLIA [id number] [place] [address] [place] [facility] LABCLIA [id number] [place] [address] [place] Triglyceride [Mass/Vol] 119 mg/dL Normal <150 [facility] Comment on above: Order Comment: Speci men Type: BLOOD SPECIMENOrdering Facility: [facility] Address: [address] [place] [address] Result Comment: <150 mg/dL, Normal 150-199 mg/dL, Borderline high 200-499 mg/dL, High>499 mg/dL, Very high Performed By: #### 2 4323-8, 3016-3 ####[facility] LABORATORYCLIA [id number] [place] [address] [place]#### 21745-1 ####[facility] LABORATORYCLIA [id number] [address] STATES OF [facility] LABCLIA [id number] [place] [address] [place] Reagin and Treponema pallidu m IgG and IgM [Interp]on 04-07-2024 T. pallidum IgG+IgM IA Ql (S) Non-Reactive Normal Nonreactive [facility] Comment on above: Order Comment: Speci men Type: BLOOD SPECIMENOrdering Facility: [facility] Address: [address] [place] [address] Performed By: #### 7 3752-8, 33144-3 ####[facility] LABCLIA [id number] [place] [address] [place] Reagin+T pallidum IgG+IgM Se rPl-Impon 04-07-2024 Reagin and Treponema pallidum IgG and IgM [Interp] Cannot exclude recent Treponemal infection if specimen collected within 7-10 days after appearance of suspect lesions or 2-3 weeks after an exposure. Clinical correlation is required. Normal [facility] Comment on above: Order Comment: Speci men Type: BLOOD SPECIMENOrdering Facility: [facility] Address: [address] [place] [address] Performed By: #### 7 3752-8, 36976-3 ####[facility] LABCLIA [id number] [place] [id number] [place] TSH SerPl-aCncon 04-07-2024 TSH Qn 2.460 m[IU]/L Normal 0.270-4.200 [facility] Comment on above: Order Comment: Speci men Type: BLOOD SPECIMENOrdering Facility: [facility] Address: [address] [place] [address] Result Comment: If t he patient is , TSH reference range varies by gestational period:First Trimester (weeks 9-12): 0.180-2.990 mIU/LSecond Trimester: 0.110-3.980 mIU/LThird Trimester: 0.480-4.710 mIU/Michelle Hooper et al. A Practical Approach for the Verifications and Determination of Site- and Trimester-Specific Reference Intervals for Thyroid Function tests in . Thyroid, 2019:29:3:412-420. Man E, et al. 2017 Guidelines of the [place] Thyroid Association for the Diagnosis and Management of Thyroid Disease during and the . Thyroid, 2017:27:3:315-389. Performed By: #### 2 4323-8, 3016-3 ####[facility] LABORATORYCLIA [id number] [address] STATES OF [facility]#### 78732-8 ####[facility] LABORATORYCLIA [id number] [address] STATES OF [facility] LABCLIA [id number] [address] OF [facility] Doreen 04-04-2024 [place] Telephone (CORE[place]) -------- PAUL DAVENPORT ([id number]) 1975 F Date Time Provider Department 04/04/24 VASQUEZ BRUSH During your visit today, we recorded the following information about you: Jessica Milian MA 04/04/2024 10:27 AM Signed Patient states she used to on a water pill PRN she states it was lasix. I tried finding the order to put a refill but I could not find script. JENIFER Murguia Kristin C, APRN.SCHOLARSHIP COUNSELOR 04/04/2024 5:53 PM Signed Okay lasix sent in. Vasquez Brush APRN.Vasquez Meng APRN.[place] 04/04/2024 5:54 PM Signed Addended by: VASQUEZ BRUSH on: 04/04/2024 05:54 PM Modules accepted: Rosemary Wallis MA 04/07/2024 8:46 AM Signed Patient received my chart message. Rosemary Arteaga MA Allergies As of Date: 04/04/2024 Noted Allergy Reaction DUST 01/27/2009 Comments: extreme coughing, dry hives METFORMIN 04/09/2023 14 - Other: See Comments Date Reviewed: 02/28/2024 Reviewed by: Katie Valverde APRN.SCHOLARSHIP COUNSELOR - Fully Assessed Reason for Visit: Refill Request [94] Primary Visit Diagnosis:Bilateral leg edema [R60.0] Order(s):furosemide (LASIX) 20 mg tabletTake 1 tablet by mouth once daily as needed.Disp: 30 tabletRfl: 5 Prescriptions as of 04/07/2024 - furosemide (LASIX) 20 mg tablet Take 1 tablet by mouth once daily as needed. - SUMAtriptan (IMITREX) 50 mg tablet Take 1 tablet (50 mg) by mouth as needed for migraine headache (see administration instructions). May repeat dose after 2 hours if needed. Maximum daily dose is 200 mg per day. - fluticasone (FLONASE) 50 mcg/actuation nasal spray Use 1 [place] in each nostril once daily. - methocarbamol (ROBAXIN) 500 mg tablet Take 1 tablet by mouth two times a day as needed. - pregabalin (LYRICA) 225 mg capsule Take 1 capsule by mouth two times a day for 30 days. - ketotifen fumarate (ZADITOR) 0.025 % (0.035 %) ophthalmic solution Use 1 Drop in both eyes two times a day for 180 days. - nicotine (NICODERM) 21 mg/24 hr Apply 1 Patch as directed every 24 hours. - FLUoxetine (PROZAC) 40 mg capsule Take 2 capsules by mouth once daily. - esomeprazole (NEXIUM) 40 mg capsule Take 1 capsule by mouth two times a day. - albuterol HFA (PROVENTIL HFA, VENTOLIN HFA) 90 mcg/actuation inhaler Inhale 2 Puffs as instructed every 4 hours as needed for wheezing/shortness of breath. - ibuprofen (MOTRIN) 800 mg tablet Take 1 tablet by mouth every 8 hours as needed for pain. - propranolol (INDERAL) 20 mg tablet Take 1 tablet by mouth two times a day. - polyethylene glycol 3350 (MIRALAX) 17 gram packet Take 17 g by mouth once daily. Dissolve dose in 4 - 8 ounces of liquid and take as directed. - LORazepam (ATIVAN) 1 mg tablet 1 mg. - fluticasone-salmeterol (WIXELA INHUB) 250-50 mcg/dose inhaler Inhale 1 Puff as instructed two times a day. - cholecalciferol (VITAMIN D3) 1,000 unit tab tablet Take 2 tablets by mouth once daily. - levonorgestrel (MIRENA) 20 mcg/24 hr (5 years) IUD 1 Each by INTRAUTERINE route one time only. Problem List As Of Date 04/04/2024 Noted Resolved Bicuspid AV/AI.. 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] 07/31/2001 02/09/2017 Depressive disorder, not elsewhere classified [*07/31/2001 12/21/2015 Endometriosis of other specified sites [N80.8] 07/31/2001 02/09/2017 ESOPHAGEAL REFLUX [K21.9] 07/31/2001 5.2.1 CHRONIC POST TRAUMA H/A W/ MINOR HEAD TRA*05/19/2003 02/09/2017 Allergic Rhinitis [J30.9] 03/05/2009 Bulimia nervosa, unspecified severity [F50.20] 04/08/2009 Vitamin B12 Deficiency [E53.8] 06/23/2009 Dysmenorrhea [N94.6] Routine gynecological examination [Z01.419] 10/23/2012 02/09/2017 Tobacco abuse [Z72.0] 05/11/2021 History of endometriosis [Z87.42] 01/28/2015 Moderate episode of recurrent major depressive *12/21/2015 Raynaud's disease without gangrene [I73.00] 01/14/2016 Fibromyalgia [M79.7] 01/17/2016 Migraine without aura and without status migrai*01/17/2016 Encounter for monitoring proton pump inhibitor *02/09/2017 05/11/2021 Bicuspid aortic valve [Q23.81] 02/09/2017 Obesity, Class I, BMI 30-34.9 [E66.811] 02/09/2017 05/11/2021 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] 02/09/2017 LEONARD (generalized anxiety disorder) [F41.1] 04/11/2017 Risk and functional assessment [Z13.9] 06/04/2017 05/11/2021 Rectal prolapse [K62.3] 03/21/2018 08/19/2018 RP (rectal prolapse) [K62.3] 03/21/2018 04/11/2018 Hx of migraines [Z86.69] 04/03/2018 05/11/2021 Nicotine use disorder, F17.2 [F17.200] 04/12/2018 Mild intermittent asthma without complication [*05/28/2019 Obesity, Class III, BMI 40-49.9 (morbid obesity*05/11/2021 Dyslipidemia [E78.5] 05/19/2021 Prediabetes [R73.03] 05/19/2021 Obesity, Class II, BMI 35-39.9 [E66.812] 03/31/2022 Chronic bilateral low back pain without sciatic*04/26/2022 Bilateral leg pain [M79.604, M79.605] 04/26/2022 Muscle spas (more content not included)... Normal [facility] CNCOon 02-28-2024 CNCO Letter Text Normal [facility] CNOVon 02-28-2024 CNOV Office Visit (SPAGWO ) -------- PAUL DAVENPORT ([id number]) 1975 F Date Time Provider Department 02/28/24 1:00 PM [facility] During your visit today, we recorded the following information about you: Pulse Respiration Normal [facility] CNPNon 02-28-2024 CNPN Telephone (SPAGWO) -------- PAUL DAVENPORT ([id number]) 1975 F Date Time Provider Department [facility] your visit today, we recorded the following information about you: Faustino Petersen 02/28/2024 1:46 PM Signed Procedure(s) being scheduled: Lumbar MBBs 1.Are you diabetic No 2. Are you on any blood thinners? No 3. Are you taking any aspirin? No 4. Are you currently taking any antibiotics? No 5. Do you have any allergies to latex? No 6. Do you have any allergies to seafood or shellfish? No 7. Do you have any allergies to x-ray dye? No 8. Does this procedure require a courtesy bus driver? Yes If yes, has patient been notified that a courtesy bus driver is needed and must be present at check in? yes 9. Were the pre-procedure instructions explained and provided to the patient? Yes 10. Do you have a pacemaker? No 11. Do you have an internal stimulator of any kind? No If yes, please bring the remote with you to your procedure visit. Faustino Garcia 02/28/2024 2:03 PM Signed MBBs were scheduled, but when she realized another adult had to be with her (even if she used a [id number]) she said she didn't know anyone and that's a stupid policy and she can't bring anyone with her, and she just walked out; so the procedures were canceled. Faustino Petersen Allergies As of Date: 02/28/2024 Noted Allergy Reaction DUST 01/27/2009 Comments: extreme coughing, dry hives METFORMIN 04/09/2023 14 - Other: See Comments Date Reviewed: 02/28/2024 Reviewed by: Katie Valverde APRN.SCHOLARSHIP COUNSELOR - Fully Assessed Reason for Visit: Injections [199] Prescriptions as of 02/28/2024 - FLUoxetine (PROZAC) 40 mg capsule Take 2 capsules by mouth once daily. - esomeprazole (NEXIUM) 40 mg capsule Take 1 capsule by mouth two times a day. - albuterol HFA (PROVENTIL HFA, VENTOLIN HFA) 90 mcg/actuation inhaler Inhale 2 Puffs as instructed every 4 hours as needed for wheezing/shortness of breath. - tiZANidine (ZANAFLEX) 4 mg tablet Take 1 tablet by mouth daily at bedtime. - Pregabalin (LYRICA) 200 mg capsule Take 1 capsule by mouth two times a day for 30 days. - cephALEXin (KEFLEX) 500 mg capsule Take 1 capsule by mouth four times daily for 10 days. - diphenhydrAMINE 12.5 mg/5 mL lidocaine visc 2% MAALOX 200-200-20 mg/5 mL prednisoLONE 15 mg/5 mL oral liquid 1:1:1:1 (CPD) Take 10 mL by mouth three times a day as needed. - ibuprofen (MOTRIN) 800 mg tablet Take 1 tablet by mouth every 8 hours as needed for pain. - fluticasone (FLONASE) 50 mcg/actuation nasal spray Use 1 [place] in each nostril once daily. - propranolol (INDERAL) 20 mg tablet Take 1 tablet by mouth two times a day. - polyethylene glycol 3350 (MIRALAX) 17 gram packet Take 17 g by mouth once daily. Dissolve dose in 4 - 8 ounces of liquid and take as directed. - LORazepam (ATIVAN) 1 mg tablet 1 mg. - fluticasone-salmeterol (WIXELA INHUB) 250-50 mcg/dose inhaler Inhale 1 Puff as instructed two times a day. - cholecalciferol (VITAMIN D3) 1,000 unit tab tablet Take 2 tablets by mouth once daily. - levonorgestrel (MIRENA) 20 mcg/24 hr (5 years) IUD 1 Each by INTRAUTERINE route one time only. Problem List As Of Date 02/28/2024 Noted Resolved Bicuspid AV/AI.. 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] 07/31/2001 02/09/2017 Depressive disorder, not elsewhere classified [*07/31/2001 12/21/2015 Endometriosis of other specified sites [N80.8] 07/31/2001 02/09/2017 ESOPHAGEAL REFLUX [K21.9] 07/31/2001 5.2.1 CHRONIC POST TRAUMA H/A W/ MINOR HEAD TRA*05/19/2003 02/09/2017 Allergic Rhinitis [J30.9] 03/05/2009 Bulimia nervosa, unspecified severity [F50.20] 04/08/2009 Vitamin B12 Deficiency [E53.8] 06/23/2009 Dysmenorrhea [N94.6] Routine gynecological examination [Z01.419] 10/23/2012 02/09/2017 Tobacco abuse [Z72.0] 05/11/2021 History of endometriosis [Z87.42] 01/28/2015 Moderate episode of recurrent major depressive *12/21/2015 Raynaud's disease without gangrene [I73.00] 01/14/2016 Fibromyalgia [M79.7] 01/17/2016 Migraine without aura and without status migrai*01/17/2016 Encounter for monitoring proton pump inhibitor *02/09/2017 05/11/2021 Bicuspid aortic valve [Q23.81] 02/09/2017 Obesity, Class I, BMI 30-34.9 [E66.811] 02/09/2017 05/11/2021 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 Normal [facility] CNPNon 01-21-2024 CNPN Normal [facility] [place] Telephone ([place]) -------- PAUL DAVENPORT ([id number]) 1975 F Date Time Provider Department 01/21/24 VASQUEZ BRUSH During your visit today, we recorded the following information about you: Jefe Mclean MA 01/21/2024 9:28 AM Signed ----- Message from Vasquez Brush APRN.SCHOLARSHIP COUNSELOR sent at 01/20/2024 10:13 PM EST ----- Mild arthritis in both knees. Vasquez Brush APRN.CNP Allergies As of Date: 01/21/2024 Noted Allergy Reaction DUST 01/27/2009 Comments: extreme coughing, dry hives METFORMIN 04/09/2023 14 - Other: See Comments Date Reviewed: 01/16/2024 Reviewed by: Rosemary Arteaga MA - Fully Assessed Reason for Visit: Xray Results [439] Prescriptions as of 01/21/2024 - propranolol (INDERAL) 20 mg tablet Take 1 tablet by mouth two times a day. - polyethylene glycol 3350 (MIRALAX) 17 gram packet Take 17 g by mouth once daily. Dissolve dose in 4 - 8 ounces of liquid and take as directed. - tiZANidine (ZANAFLEX) 4 mg tablet Take 1 tablet by mouth daily at bedtime. - nabumetone (RELAFEN) 500 mg tablet Take 1 tablet by mouth two times a day as needed. - LORazepam (ATIVAN) 1 mg tablet 1 mg. - TRINTELLIX 5 mg tablet TAKE ONE TABLET BY MOUTH EVERY MORNING FOR depression - Pregabalin (LYRICA) 200 mg capsule Take 1 capsule by mouth two times a day for 30 days. - esomeprazole (NEXIUM) 40 mg capsule Take 1 capsule by mouth two times a day. - albuterol HFA (PROVENTIL HFA, VENTOLIN HFA) 90 mcg/actuation inhaler Inhale 2 Puffs as instructed every 4 hours as needed for wheezing/shortness of breath. - FLUoxetine (PROZAC) 40 mg capsule Take 2 capsules by mouth once daily. - fluticasone (FLONASE) 50 mcg/actuation nasal spray Use 1 [place] in each nostril once daily. - fluticasone-salmeterol (WIXELA INHUB) 250-50 mcg/dose inhaler Inhale 1 Puff as instructed two times a day. - cholecalciferol (VITAMIN D3) 1,000 unit tab tablet Take 2 tablets by mouth once daily. - levonorgestrel (MIRENA) 20 mcg/24 hr (5 years) IUD 1 Each by INTRAUTERINE route one time only. Problem List As Of Date 01/21/2024 Noted Resolved Bicuspid AV/AI.. 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] 07/31/2001 02/09/2017 Depressive disorder, not elsewhere classified [*07/31/2001 12/21/2015 Endometriosis of other specified sites [N80.8] 07/31/2001 02/09/2017 ESOPHAGEAL REFLUX [K21.9] 07/31/2001 5.2.1 CHRONIC POST TRAUMA H/A W/ MINOR HEAD TRA*05/19/2003 02/09/2017 Allergic Rhinitis [J30.9] 03/05/2009 Bulimia [F50.20] 04/08/2009 12/24/2022 Vitamin B12 Deficiency [E53.8] 06/23/2009 Dysmenorrhea [N94.6] Routine gynecological examination [Z01.419] 10/23/2012 02/09/2017 Tobacco abuse [Z72.0] 05/11/2021 History of endometriosis [Z87.42] 01/28/2015 Moderate episode of recurrent major depressive *12/21/2015 Raynaud's disease without gangrene [I73.00] 01/14/2016 Fibromyalgia [M79.7] 01/17/2016 Migraine without aura and without status migrai*01/17/2016 Encounter for monitoring proton pump inhibitor *02/09/2017 05/11/2021 Bicuspid aortic valve [Q23.81] 02/09/2017 Obesity, Class I, BMI 30-34.9 [E66.811] 02/09/2017 05/11/2021 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] 02/09/2017 LEONARD (generalized anxiety disorder) [F41.1] 04/11/2017 Risk and functional assessment [Z13.9] 06/04/2017 05/11/2021 Rectal prolapse [K62.3] 03/21/2018 08/19/2018 RP (rectal prolapse) [K62.3] 03/21/2018 04/11/2018 Hx of migraines [Z86.69] 04/03/2018 05/11/2021 Nicotine use disorder, F17.2 [F17.200] 04/12/2018 Mild intermittent asthma without complication [*05/28/2019 Obesity, Class III, BMI 40-49.9 (morbid obesity*05/11/2021 Dyslipidemia [E78.5] 05/19/2021 Prediabetes [R73.03] 05/19/2021 Obesity, Class II, BMI 35-39.9 [E66.812] 03/31/2022 Chronic bilateral low back pain without sciatic*04/26/2022 Bilateral leg pain [M79.604, M79.605] 04/26/2022 Muscle spasm of back [M62.830] 04/26/2022 Bilateral hip pain [M25.551, M25.552] 04/26/2022 Foot pain, bilateral [M79.671, M79.672] 04/26/2022 Chronic pain of both knees [M25.561, M25.562, G*04/26/2022 Decreased pedal pulses [R09.89] 04/26/2022 Housing instability [Z59.819] 04/26/2022 12/22/2022 Domestic concerns [Z65.8] 04/26/2022 12/22/2022 Lack of access to transportation [Z59.82] 04/26/2022 Aortic valve stenosis [I35.0] 01/21/2023 Ascending aorta dilatation (HCC) [I77.810] 01/21/2023 Condyloma acuminatum [A63.0] 05/01/2023 Diagnosed: 05/01/2023 Constipation [K59.00] 05/07/2013 Diagnosed: 05/01/2023 Hemorrhage of rectum and anus [K62.5] 05/07/2013 Diagnosed: 05/01/2023 Internal hemorrhoids without complication [K64.*05/07/2013 Diagnosed: 05/01/2023 Rectocele [N81.6] 05/01/2023 Asthmatic bronchitis [J45.909] 05/01/2023 Mild episode of recurrent major depressive diso*05/01/2023 Fatigue [R53.83] 05/01/2023 Onychomycosis [B35.1] 05/01/2023 Leukocytosis [D7 (more content not included)... Normal [facility] CNPNon 01-18-2024 CNPN Normal [facility] CNOVon 01-16-2024 CNOV Office Visit (BERNABE ACOSTA) -------- PAUL DAVENPORT ([id number]) 1975 F Date Time Provider Department 01/16/24 11:20 AM VASQUEZ BRUSH During your visit today, we recorded the following information about you: Temperature Pulse Blood pressure Weight 98 degrees 93/minute 128/76 115.2 kg Height 1.616 m Vasquez Brush APRN.SCHOLARSHIP COUNSELOR 01/16/2024 11:33 PM Signed Subjective Paul Bhardwaj Ethel is a 48 year old female here today for knee pain. I reviewed past medical, surgical, social, and family histories today and updated chart. Allergies, chronic medications, and supplements were also reviewed. HPI Patient injured right knee during a fall a few months ago - went down on both knees hard She is having severe pain and popping near the knee cap It is worse at night, can't sleep Knees give out on her with stairs Cannot get out of bed No motivation miserable all the time She is seeing the psychiatrist every month - keeps trying different things but none of it works Laying in bed all the time - makes pain worse Plans on seeing counselor Needs new back doctor Had accupuncture referral Swimming helps but she doesn't have the transportation to get there Keeps gaining weight Gets bloating and gassy She thinks its from her CPAP machine She isn't going to use it anymore until she sees sleep medicine Did notice she's not falling asleep during the day like she use Planned for surgery on 01/21 PAST MEDICAL HISTORY Diagnosis Date Allergic rhinitis, cause unspecified Aortic valve disorders mild Aortic valve stenosis Asthma Bicuspid aortic valve Bipolar I disorder, most recent episode (or current) unspecified Bulimia nervosa Cervical high risk human papillomavirus (HPV) DNA test positive 03/05/2009 normal pap, +hrhpv, repeat in one year Dilation of aorta (HCC) Dysmenorrhea Endometriosis Esophageal reflux Fibromyalgia History of cocaine use 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 Insomnia, unspecified Iron deficiency anemia 09/25/2023 Iron malabsorption 09/25/2023 Major depressive disorder, single episode, mild (HCC) Migraine stable with propranolol Nontoxic uninodular goiter Osteoarthritis of multiple joints Partial rectal prolapse RP (rectal prolapse) ~2012 Sleep apnea Tobacco abuse PAST SURGICAL HISTORY Procedure Laterality Date ABDOMINAL SURGERY HX COLON SURGERY HX 2019 rectal prolapse COLONOSCOPY 11/16/2014, 12/2017 No polyps/ severe diarrhea and prolapse CORRECT RECTAL PROLAPSE CT ABD/PELVIS WO CONTRAST PANEL 11/[address] COR/SAG/SINUS/BRAIN/HEAD 12/2005 normal DEBRIDEMENT MUSCLE AND FASCIA 20 SQ CM/< 11/03/2007 DEBRIDEMENT ULCER EXTREMITY LOWER performed by GEOFF FLO[facility] at [facility] ECHO EXAM OF HEART 09/2000 bicuspid AV, minor AI, mild EGD 01/1999 small hiatal hernia EGD 01/2004 EGD 02/2007 mild gastritis EGD 11/16/2014 EGD 08/02/2022 ENDOSCOPY PROC 10/22/2019 LA grade A reflux esophagitis, Normal stomach, Normal duodenum HOLTER MONITOR 24 HOUR 04/2003 normal INSERT INTRAUTERINE DEVICE 02/2015 Mirena LAPAROSCOPY DIAGNOSTIC age 24, 26 endometriosis, cysts removed MRI BRAIN 05/2003 normal SIGMOIDOSCOPY 01/1999 normal TONSILLECTOMY PRIMARY/SECONDARY Tonsillectomy ALLERGIES Dust and Metformin MEDICATIONS polyethylene glycol 3350 (MIRALAX) 17 gram packet Take 17 g by mouth once daily. Dissolve dose in 4 - 8 ounces of liquid and take as directed. tiZANidine (ZANAFLEX) 4 mg tablet Take 1 tablet by mouth daily at bedtime. LORazepam (ATIVAN) 1 mg tablet 1 mg. TRINTELLIX 5 mg tablet TAKE ONE TABLET BY MOUTH EVERY MORNING FOR depression Pregabalin (LYRICA) 200 mg capsule Take 1 capsule by mouth two times a day for 30 days. esomeprazole (NEXIUM) 40 mg capsule Take 1 capsule by mouth two times a day. albuterol HFA (PROVENTIL HFA, VENTOLIN HFA) 90 mcg/actuation inhaler Inhale 2 Puffs as instructed every 4 hours as needed for wheezing/shortness of breath. FLUoxetine (PROZAC) 40 mg capsule Take 2 capsules by mouth once daily. fluticasone (FLONASE) 50 mcg/actuation nasal spray Use 1 [place] in each nostril once daily. fluticasone-salmeterol (WIXELA INHUB) 250-50 mcg/dose inhaler Inhale 1 Puff as instructed two times a day. cholecalciferol (VITAMIN D3) 1,000 unit tab tablet Take 2 tablets by mouth once daily. levonorgestrel (MIRENA) 20 mcg/24 hr (5 years) IUD 1 Each by INTRAUTERINE route one time only. nabumetone (RELAFEN) 500 mg tablet Take 1 tablet by mouth two times a day as needed. (Patient not taking: Reported on 01/16/2024) FAMILY HISTORY Problem Relation Age of Onset Arthritis Mother other (lymphoma) Mother 54 other (CHF) Mother Heart Mother Diabetes Mother Arthritis Father Diabetes Father Thyroid Sister No Known Problems Sister Heart Attack Maternal Grandmother Cancer (more content not included)... Normal [facility] XR KNEE 4V AP/LAT/OBLS LTon 01-16-2024 XR KNEE 4V AP/LAT/OBLS LT * * *Final Report* * * DATE OF EXAM: Jan 16 2024 12:03PM LDX 5204 - XR KNEE 4V AP/LAT/OBLS LT / PROCEDURE REASON: multiple diagnoses * * * * Physician Interpretation * * * * EXAMINATION: XR KNEE SURVEY 1V AP ESTEBAN, XR KNEE 4V AP/LAT/OBLS LT, XR KNEE 4V AP/LAT/OBLS RT HISTORY: Pt. fell onto bilateral knees, painful right medial knee. Chronic pain of both knees Chronic pain of both knees Chronic pain of both knees . TECHNIQUE: XR KNEE SURVEY 1V AP ESTEBAN, XR KNEE 4V AP/LAT/OBLS LT, XR KNEE 4V AP/LAT/OBLS RT Laterality: BILATERAL (accession [id number]), LEFT (accession [id number]), RIGHT (accession [id number]) Number of different views (projections): 1 (accession [id number]), 4 (accession [id number]), 4 (accession [id number]) M: XB_1 COMPARISON: Radiograph 04/26/2022 RESULT: Right knee: Moderate medial tibiofemoral joint space narrowing on weight bearing study. This may be somewhat worsened compared to prior. Small peripheral osteophytes. No fracture, subluxation or sizable joint effusion. Left knee: There is mild medial tibiofemoral joint space narrowing on weightbearing view. No fracture, subluxation or sizable joint effusion. No other significant abnormality. IMPRESSION: No acute osseous abnormality is seen of the bilateral knees. Degenerative joint space narrowing bilaterally as detailed.. Tax Analyst: [facility] Transcribe Date/Time: Jan 20 2024 10:55A Dictated by : FER SIU MD This examination was interpreted and the report reviewed and electronically signed by: FER SIU MD on Jan 20 2024 10:58AM EST [id number] Normal [facility] XR KNEE 4V AP/LAT/OBLS RTon 01-16-2024 XR KNEE 4V AP/LAT/OBLS RT * * *Final Report* * * DATE OF EXAM: Jan 16 2024 12:03PM LDX 5205 - XR KNEE 4V AP/LAT/OBLS RT / PROCEDURE REASON: multiple diagnoses * * * * Physician Interpretation * * * * EXAMINATION: XR KNEE SURVEY 1V AP ESTEBAN, XR KNEE 4V AP/LAT/OBLS LT, XR KNEE 4V AP/LAT/OBLS RT HISTORY: Pt. fell onto bilateral knees, painful right medial knee. Chronic pain of both knees Chronic pain of both knees Chronic pain of both knees . TECHNIQUE: XR KNEE SURVEY 1V AP ESTEBAN, XR KNEE 4V AP/LAT/OBLS LT, XR KNEE 4V AP/LAT/OBLS RT Laterality: BILATERAL (accession [id number]), LEFT (accession [id number]), RIGHT (accession [id number]) Number of different views (projections): 1 (accession [id number]), 4 (accession [id number]), 4 (accession [id number]) M: XB_1 COMPARISON: Radiograph 04/26/2022 RESULT: Right knee: Moderate medial tibiofemoral joint space narrowing on weight bearing study. This may be somewhat worsened compared to prior. Small peripheral osteophytes. No fracture, subluxation or sizable joint effusion. Left knee: There is mild medial tibiofemoral joint space narrowing on weightbearing view. No fracture, subluxation or sizable joint effusion. No other significant abnormality. IMPRESSION: No acute osseous abnormality is seen of the bilateral knees. Degenerative joint space narrowing bilaterally as detailed.. Tax Analyst: [facility] Transcribe Date/Time: Jan 20 2024 10:55A Dictated by : FER SIU MD This examination was interpreted and the report reviewed and electronically signed by: FER SIU MD on Jan 20 2024 10:58AM EST [id number] Normal [facility] XR KNEE SURVEY 1V AP BILon 01-16-2024 XR KNEE SURVEY 1V AP ESTEBAN * * *Final Report* * * DATE OF EXAM: Jan 16 2024 12:03PM LDX 5213 - XR KNEE SURVEY 1V AP ESTEBAN / PROCEDURE REASON: multiple diagnoses * * * * Physician Interpretation * * * * EXAMINATION: XR KNEE SURVEY 1V AP ESTEBAN, XR KNEE 4V AP/LAT/OBLS LT, XR KNEE 4V AP/LAT/OBLS RT HISTORY: Pt. fell onto bilateral knees, painful right medial knee. Chronic pain of both knees Chronic pain of both knees Chronic pain of both knees . TECHNIQUE: XR KNEE SURVEY 1V AP ESTEBAN, XR KNEE 4V AP/LAT/OBLS LT, XR KNEE 4V AP/LAT/OBLS RT Laterality: BILATERAL (accession [id number]), LEFT (accession [id number]), RIGHT (accession [id number]) Number of different views (projections): 1 (accession [id number]), 4 (accession [id number]), 4 (accession [id number]) M: XB_1 COMPARISON: Radiograph 04/26/2022 RESULT: Right knee: Moderate medial tibiofemoral joint space narrowing on weight bearing study. This may be somewhat worsened compared to prior. Small peripheral osteophytes. No fracture, subluxation or sizable joint effusion. Left knee: There is mild medial tibiofemoral joint space narrowing on weightbearing view. No fracture, subluxation or sizable joint effusion. No other significant abnormality. IMPRESSION: No acute osseous abnormality is seen of the bilateral knees. Degenerative joint space narrowing bilaterally as detailed.. Tax Analyst: [facility] Transcribe Date/Time: Jan 20 2024 10:55A Dictated by : FER SIU MD This examination was interpreted and the report reviewed and electronically signed by: FER SIU MD on Jan 20 2024 10:58AM EST [id number] Normal [facility] CNPNon 01-15-2024 CNPN Normal [facility] CNPNon 01-14-2024 CNPN Telephone ([facility]) -------- PAUL DAVENPORT ([id number]) 1975 F Date Time Provider Department 01/14/24 VASQUEZ BRUSH During your visit today, we recorded the following information about you: Rosemary Arteaga MA 01/14/2024 7:27 AM Signed ----- Message from Vasquez Brush APRN.SCHOLARSHIP COUNSELOR sent at 01/13/2024 10:57 PM EST ----- Please notify patient results are normal. Thank you. Vasquez Brush APRN.ALBERTO Rosemary Arteaga JENIFER 01/14/2024 7:35 AM Signed Serena received a my chart message. Rosemary Arteaga MA Allergies As of Date: 01/14/2024 Noted Allergy Reaction DUST 01/27/2009 Comments: extreme coughing, dry hives METFORMIN 04/09/2023 14 - Other: See Comments Date Reviewed: 01/11/2024 Reviewed by: Yudy Mills APRN.SCHOLARSHIP COUNSELOR - Fully Assessed Reason for Visit: Results [95] Prescriptions as of 01/14/2024 - polyethylene glycol 3350 (MIRALAX) 17 gram packet Take 17 g by mouth once daily. Dissolve dose in 4 - 8 ounces of liquid and take as directed. - tiZANidine (ZANAFLEX) 4 mg tablet Take 1 tablet by mouth daily at bedtime. - nabumetone (RELAFEN) 500 mg tablet Take 1 tablet by mouth two times a day as needed. - LORazepam (ATIVAN) 1 mg tablet 1 mg. - TRINTELLIX 5 mg tablet TAKE ONE TABLET BY MOUTH EVERY MORNING FOR depression - Pregabalin (LYRICA) 200 mg capsule Take 1 capsule by mouth two times a day for 30 days. - esomeprazole (NEXIUM) 40 mg capsule Take 1 capsule by mouth two times a day. - albuterol HFA (PROVENTIL HFA, VENTOLIN HFA) 90 mcg/actuation inhaler Inhale 2 Puffs as instructed every 4 hours as needed for wheezing/shortness of breath. - FLUoxetine (PROZAC) 40 mg capsule Take 2 capsules by mouth once daily. - fluticasone (FLONASE) 50 mcg/actuation nasal spray Use 1 [place] in each nostril once daily. - fluticasone-salmeterol (WIXELA INHUB) 250-50 mcg/dose inhaler Inhale 1 Puff as instructed two times a day. - cholecalciferol (VITAMIN D3) 1,000 unit tab tablet Take 2 tablets by mouth once daily. - levonorgestrel (MIRENA) 20 mcg/24 hr (5 years) IUD 1 Each by INTRAUTERINE route one time only. Problem List As Of Date 01/14/2024 Noted Resolved Bicuspid AV/AI.. 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] 07/31/2001 02/09/2017 Depressive disorder, not elsewhere classified [*07/31/2001 12/21/2015 Endometriosis of other specified sites [N80.8] 07/31/2001 02/09/2017 ESOPHAGEAL REFLUX [K21.9] 07/31/2001 5.2.1 CHRONIC POST TRAUMA H/A W/ MINOR HEAD TRA*05/19/2003 02/09/2017 Allergic Rhinitis [J30.9] 03/05/2009 Bulimia [F50.20] 04/08/2009 12/24/2022 Vitamin B12 Deficiency [E53.8] 06/23/2009 Dysmenorrhea [N94.6] Routine gynecological examination [Z01.419] 10/23/2012 02/09/2017 Tobacco abuse [Z72.0] 05/11/2021 History of endometriosis [Z87.42] 01/28/2015 Moderate episode of recurrent major depressive *12/21/2015 Raynaud's disease without gangrene [I73.00] 01/14/2016 Fibromyalgia [M79.7] 01/17/2016 Migraine without aura and without status migrai*01/17/2016 Encounter for monitoring proton pump inhibitor *02/09/2017 05/11/2021 Bicuspid aortic valve [Q23.81] 02/09/2017 Obesity, Class I, BMI 30-34.9 [E66.811] 02/09/2017 05/11/2021 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] 02/09/2017 LEONARD (generalized anxiety disorder) [F41.1] 04/11/2017 Risk and functional assessment [Z13.9] 06/04/2017 05/11/2021 Rectal prolapse [K62.3] 03/21/2018 08/19/2018 RP (rectal prolapse) [K62.3] 03/21/2018 04/11/2018 Hx of migraines [Z86.69] 04/03/2018 05/11/2021 Nicotine use disorder, F17.2 [F17.200] 04/12/2018 Mild intermittent asthma without complication [*05/28/2019 Obesity, Class III, BMI 40-49.9 (morbid obesity*05/11/2021 Dyslipidemia [E78.5] 05/19/2021 Prediabetes [R73.03] 05/19/2021 Obesity, Class II, BMI 35-39.9 [E66.812] 03/31/2022 Chronic bilateral low back pain without sciatic*04/26/2022 Bilateral leg pain [M79.604, M79.605] 04/26/2022 Muscle spasm of back [M62.830] 04/26/2022 Bilateral hip pain [M25.551, M25.552] 04/26/2022 Foot pain, bilateral [M79.671, M79.672] 04/26/2022 Chronic pain of both knees [M25.561, M25.562, G*04/26/2022 Decreased pedal pulses [R09.89] 04/26/2022 Housing instability [Z59.819] 04/26/2022 12/22/2022 Domestic concerns [Z65.8] 04/26/2022 12/22/2022 Lack of access to transportation [Z59.82] 04/26/2022 Aortic valve stenosis [I35.0] 01/21/2023 Ascending aorta dilatation (HCC) [I77.810] 01/21/2023 Condyloma acuminatum [A63.0] 05/01/2023 Diagnosed: 05/01/2023 Constipation [K59.00] 05/07/2013 Diagnosed: 05/01/2023 Hemorrhage of rectum and anus [K62.5] 05/07/2013 Diagnosed: 05/01/2023 Internal hemorrhoids without complication [K64.*05/07/2013 Diagnosed: 05/01/2023 Rectocele [N81.6] 05/01/2023 Asthmatic bronchitis [J45.909] 05/01/2023 Mild episode of recurrent major depressive diso*05/01/2023 Fatigue [R53.83] 05/01/2023 O (more content not included)... Normal [facility] Comprehensive metabolic 2000 panelon 01-11-2024 Albumin [Mass/Vol] 4.1 g/dL Normal 3.9-4.9 [facility] Comment on above: Order Comment: Speci men Type: BLOOD SPECIMENOrdering Facility: [facility] Address: [address] [place] [address] Performed By: #### 2 4323-8 ####[facility] TERRY MILLTOWNCLIA [id number] [place] [address] [place] ALP [Catalytic activity/Vol] 119 U/L Normal 34-123 [facility] Comment on above: Order Comment: Speci men Type: BLOOD SPECIMENOrdering Facility: [facility] Address: [address] [place] [address] Performed By: #### 2 4323-8 ####[facility] TERRY MILLTOWNCLIA [id number] [place] [address] [place] ALT [Catalytic activity/Vol] 17 U/L Normal 7-38 [facility] Comment on above: Order Comment: Speci men Type: BLOOD SPECIMENOrdering Facility: [facility] Address: [address] [place] [address] Performed By: #### 2 4323-8 ####[facility] MILLTOWNCLIA [id number] [place] [address] [place] Anion gap [Moles/Vol] 12 mmol/L Normal 8-15 [facility] Comment on above: Order Comment: Speci men Type: BLOOD SPECIMENOrdering Facility: [facility] Address: [address] [place] [address] Performed By: #### 2 4323-8 ####[facility] TERRY MILLTOWNCLIA [id number] [place] [address] [place] AST [Catalytic activity/Vol] 13 U/L Normal 13-35 [facility] Comment on above: Order Comment: Speci men Type: BLOOD SPECIMENOrdering Facility: [facility] Address: [address] [place] [address] Performed By: #### 2 4323-8 ####[facility] TERRY MILLTOWNCLIA [id number] [place] [address] [place] Bilirubin [Mass/Vol] mg/dL Low 0.2-1.3 [facility] Comment on above: Order Comment: Speci men Type: BLOOD SPECIMENOrdering Facility: [facility] Address: [address] [place] [address] Performed By: #### 2 4323-8 ####[facility] TERRY MILLTOWNCLIA [id number] [place] [address] [place] Calcium [Mass/Vol] 9.1 mg/dL Normal 8.5-10.2 [facility] Comment on above: Order Comment: Speci men Type: BLOOD SPECIMENOrdering Facility: [facility] Address: [address] [place] [address] Performed By: #### 2 4323-8 ####[facility] MILLTOWNCLIA [id number] [place] [address] [place] Chloride [Moles/Vol] 101 mmol/L Normal 98-107 [facility] Comment on above: Order Comment: Speci men Type: BLOOD SPECIMENOrdering Facility: [facility] Address: [address] [place] [address] Performed By: #### 2 4323-8 ####[facility] MILLTOWNCLIA [id number] [place] [address] [place] CO2 [Moles/Vol] 24 mmol/L Normal 22-30 [facility] Comment on above: Order Comment: Speci men Type: BLOOD SPECIMENOrdering Facility: [facility] Address: [address] [place] [address] Performed By: #### 2 4323-8 ####[facility] TERRY MILLTOWNCLIA [id number] [place] [address] [place] Creatinine [Mass/Vol] 0.77 mg/dL Normal 0.58-0.96 [facility] Comment on above: Order Comment: Ulises walsh Type: BLOOD SPECIMENOrdering Facility: [facility] Address: [address] [place] [address] Performed By: #### 2 4323-8 ####[facility] [id number] [place] [address] [place] Creatinine and Glomerular filtration rate.predicted panel (S/P/Bld) 96 mL/min/1.73m??? Normal >=60 [facility] Comment on above: Order Comment: Ulises walsh Type: BLOOD SPECIMENOrdering Facility: [facility] Address: [address] [place] [address] Result Comment: Tsering mated Glomerular Filtration Rate (eGFR) is calculated using the 2020 CKD-EPI creatinine equation. This equation utilizes serum creatinine, sex, and age as parameters. The creatinine assay has traceable calibration to isotope dilution-mass spectrometry. Refer to KDIGO guidelines for clinical interpretation. In patients with unstable renal function, e.g. those with acute kidney injury, the eGFR may not accurately reflect actual GFR. Performed By: #### 2 4323-8 ####[facility] [id number] [place] [address] [place] Glucose [Mass/Vol] 110 mg/dL High 74-99 [facility] Comment on above: Order Comment: Ulises walsh Type: BLOOD SPECIMENOrdering Facility: [facility] Address: [address] [place] [address] Result Comment: The [place] [employer] (ADA) provides guidance for cutoff values for fasting glucose and random glucose. The ADA defines fasting as no caloric intake for at least 8 hours. Fasting plasma glucose results between 100 to 125 mg/dL indicate increased risk for diabetes (prediabetes).Fasting plasma glucose results greater than or equal to 126 mg/dL meet the criteria for diagnosis of diabetes. In the absence of unequivocal hyperglycemia, results should be confirmed by repeat testing. In a patient with classic symptoms of hyperglycemia or hyperglycemic crisis, random plasma glucose results greater than or equal to 200 mg/dL meet the criteria for diagnosis of diabetes.Reference: Standards of Medical Care in Diabetes 2016, [place] [employer] Association. Diabetes Care. 2016.39(Suppl 1). Performed By: #### 2 4323-8 ####[facility] TERRY MILLTOWMIRELLALIA [id number] [place] [address] [place] Potassium [Moles/Vol] 4.3 mmol/L Normal 3.7-5.1 [facility] Comment on above: Order Comment: Speci men Type: BLOOD SPECIMENOrdering Facility: [facility] Address: [address] [place] [address] Performed By: #### 2 4323-8 ####[facility] MILLMICHELLELIA [id number] [place] [address] [place] Protein [Mass/Vol] 7.1 g/dL Normal 6.3-8.0 [facility] Comment on above: Order Comment: Speci men Type: BLOOD SPECIMENOrdering Facility: [facility] Address: [address] [place] [address] Performed By: #### 2 4323-8 ####[facility] MIRAMARJULIANNCLIA [id number] [place] [address] [place] Sodium [Moles/Vol] 137 mmol/L Normal 136-144 [facility] Comment on above: Order Comment: Speci men Type: BLOOD SPECIMENOrdering Facility: [facility] Address: [address] [place] [address] Performed By: #### 2 4323-8 ####[facility] MILLRAMONAWNCLIA [id number] [place] [address] [place] Urea nitrogen [Mass/Vol] 12 mg/dL Normal 7-21 [facility] Comment on above: Order Comment: Speci men Type: BLOOD SPECIMENOrdering Facility: [facility] Address: [address] [place] [address] Performed By: #### 2 4323-8 ####[facility] [id number] [place] [id number] [place] Cortis SerPl-mCncon 01-11-20 Cortisol [Mass/Vol] 5.0 ug/dL Normal 4.8-19.5 [facility] Comment on above: Order Comment: Speci men Type: BLOOD SPECIMENOrdering Facility: [facility] Address: [address] [place] [address] Result Comment: Prov ided reference range is from 6-10 AM sample collection time.Cortisol Reference Range: 6-10 AM = 4.8-19.5 ug/dL, 4-8 PM = 2.5-11.9 ug/dL Performed By: #### 2 143-6, 3016-3 ####[facility] LABCLIA [id number] [address] [place] HISTORY PHYSICALon HISTORY PHYSICAL Normal [facility] TSH SerPl-aCncon 01-11-2024 TSH Qn 2.240 m[IU]/L Normal 0.270-4.200 [facility] Comment on above: Order Comment: Speci men Type: BLOOD SPECIMENOrdering Facility: [facility] Address: [address] [place] [address] Result Comment: If t he patient is , TSH reference range varies by gestational period:First Trimester (weeks 9-12): 0.180-2.990 mIU/LSecond Trimester: 0.110-3.980 mIU/LThird Trimester: 0.480-4.710 mIU/Michelle Hooper et al. A Practical Approach for the Verifications and Determination of Site- and Trimester-Specific Reference Intervals for Thyroid Function tests in . Thyroid, 2019:29:3:412-420. Man E, et al. 2017 Guidelines of the [place] Thyroid Association for the Diagnosis and Management of Thyroid Disease during and the . Thyroid, 2017:27:3:315-389. Performed By: #### 2 143-6, 3016-3 ####[facility] LABCLIA [id number] [address] [place] TYPE AND SCREEN,30 DAYon ABO A Normal [facility] Comment on above: Order Comment: Speci men Type: BLOOD SPECIMENOrdering Facility: [facility] Address: [address] [place] [address] Performed By: #### T SCR30 ####[facility] MA[facility] BLOOD BANKCLIA [id number] [place] [address] [place] Rh Nom (Bld) Positive Normal [facility] Comment on above: Order Comment: Speci men Type: BLOOD SPECIMENOrdering Facility: [facility] Address: [address] [place] [address] Performed By: #### T SCR30 ####[facility] MAIN BLOOD BANKCLIA [id number] [place] [address] [place] CNCOon 01-10-2024 CNCO Letter Text Normal [facility] CNPNon 01-09-2024 CNPN Normal [facility] ECHOon 01-02-2024 Echocardiography Echocardiography Rep ort: Transthoracic Echo [facility] Date of service: 01/02/2024 10:37:06 AM Ordering physician: MONIQUE CA Indication: Re-evaluation of known valvular heart disease with change in clinical status Technologist: Naif Lobato [facility] Interpreting physician: Ruel Melton MD PATIENT: Name: MS. PAUL DAVENPORT : 1975 Age: 48 years Gender: F Primary rhythm: sinus. Height: 162.00 cm BSA: 2.30 m Weight: 118.00 kg BMI: 45.0 kg/m Heart rate 77 bpm Blood pressure 123/86 mmHg Technically difficult exam due to body habitus. Color Doppler was utilized to interrogate the cardiac valves assessed and spectral Doppler was utilized to determine the flow velocities and pressure gradients reported in this exam. MEASUREMENTS: Value Indexed Normal Max aortic dimension 4.4 cm Ao < 3.8 Left atrial volume 43 ml (biplane A-L) 18 ml/m Radha <= 34 LV ID (diastole) 4.9 cm (2D) 2.14 cm/m LV ID (systole) 3.5 cm (2D) 1.51 cm/m IVS, leaflet tips 1.6 cm (2D) Posterior wall thickness 1.3 cm (2D) Left ventricular mass 290 g (2D) 126 g/m LVOT stroke volume 120 ml 55 ml/m FINDINGS: LEFT VENTRICLE The left ventricle is normal in size. There is moderate left ventricular hypertrophy. Left ventricular systolic function is normal. Normal left ventricular diastolic function. Mitral annular lateral E/e': 9.1. Mitral annular septal E/e': 12.8. Wall Motion: All scored segments are normal. RIGHT VENTRICLE The right ventricle is normal in size. Right ventricular systolic function is normal. Tricuspid annular displacement is 2.0 cm. Estimated right ventricular systolic pressure is likely underestimated due to a weak or incomplete tricuspid regurgitation signal and is, at least, 20 mmHg consistent with normal pulmonary artery pressures. Estimated right atrial pressure is 3 mmHg based on IVC assessment. LEFT ATRIUM The left atrial cavity is normal in size. RIGHT ATRIUM The right atrial cavity is normal in size. Inferior Vena Cava: The inferior vena cava appears normal measuring 2.0 cm. The vessel decreases greater than 50 percent with inspiration. MITRAL VALVE There is no mitral valve regurgitation. There is mild calcification. The peak mitral E/A ratio is 0.90. TRICUSPID VALVE The tricuspid valve leaflets are structurally normal. There is trace tricuspid valve regurgitation. AORTIC VALVE The aortic valve was not seen or not interrogated. There is no aortic valve regurgitation. There is moderate calcification. The peak gradient is 55 mmHg (peak velocity = 370.5 cm/s). The mean gradient is 34 mmHg. The LVOT diameter is 2.2 cm. The aortic VTI is 75.5 cm. The mean velocity in the aortic valve is 261.6 cm/s. The dimensionless valve index is 0.41. AV area is 1.59 cm (0.69 cm /m ) by continuity, VTI. The LVOT stroke volume index is 55 ml/m . PULMONIC VALVE The pulmonic valve was not seen or not interrogated. There is no pulmonic valve regurgitation. AORTA The visualized aorta is dilated. Measurements - Sinus: 3.4 cm. Sinotubular junction 3.3 cm. Mid ascending aorta 4.4 cm. CONCLUSIONS: - Technically difficult exam due to body habitus. - Exam indication: Re-evaluation of known valvular heart disease with change in clinical status - The left ventricle is normal in size. There is moderate left ventricular hypertrophy. Left ventricular systolic function is normal. Normal left ventricular diastolic function. - The right ventricle is normal in size. Right ventricular systolic function is normal. Tricuspid annular displacement is 2.0 cm. - The visualized aorta is dilated with a maximal dimension of 4.[address]/MR angiography if clinically indicated. - Previous reported bicuspid aortic valve . Short axis views of the aortic valve are extremely poor on today's study. Can not comment on valve morphology. Mild to moderate aortic stenosis with peak/mean gradients 55/34mmHg, VIKI 1.59 cm2, dimensionless index 0.41. - Exam was compared with the prior echocardiographic exam performed on 01/18/23. As described above, aortic valve morphology is not well assessed on today's study. The stenosis appears stable. * * * Final * * * [facility] : [id number] ID Normal [facility]N Normal [facility] CNPN Telephone (BELIAFAMPLE) -------- PAUL DAVENPORT ([id number]) 1975 F Date Time Provider Department 12/25/23 VASQUEZ BRUSH During your visit today, we recorded the following information about you: Jefe Mclean MA 12/25/2023 2:55 PM Signed Patient left message stating the medication changes that Lyric made are not helping at all and she does not know what else to do but she cannot live like this. Please advise. JENIFER Beltran Kristin C, M[employer] PRESS OPERATOR.SCHOLARSHIP COUNSELOR 12/25/2023 4:54 PM Signed Please let patient know that it takes time for increased doses of lyrica to work. We will see how she's doing when she comes in for her appointment 01/15. Vasquez Brush APRN.CNP Allergies As of Date: 12/25/2023 Noted Allergy Reaction DUST 01/27/2009 Comments: extreme coughing, dry hives METFORMIN 04/09/2023 14 - Other: See Comments Date Reviewed: 12/24/2023 Reviewed by: Lyric Parikh APRN.CNP - Fully Assessed Reason for Visit: Patient Question [2967] Prescriptions as of 01/14/2024 - polyethylene glycol 3350 (MIRALAX) 17 gram packet Take 17 g by mouth once daily. Dissolve dose in 4 - 8 ounces of liquid and take as directed. - tiZANidine (ZANAFLEX) 4 mg tablet Take 1 tablet by mouth daily at bedtime. - nabumetone (RELAFEN) 500 mg tablet Take 1 tablet by mouth two times a day as needed. - LORazepam (ATIVAN) 1 mg tablet 1 mg. - TRINTELLIX 5 mg tablet TAKE ONE TABLET BY MOUTH EVERY MORNING FOR depression - Pregabalin (LYRICA) 200 mg capsule Take 1 capsule by mouth two times a day for 30 days. - esomeprazole (NEXIUM) 40 mg capsule Take 1 capsule by mouth two times a day. - albuterol HFA (PROVENTIL HFA, VENTOLIN HFA) 90 mcg/actuation inhaler Inhale 2 Puffs as instructed every 4 hours as needed for wheezing/shortness of breath. - FLUoxetine (PROZAC) 40 mg capsule Take 2 capsules by mouth once daily. - fluticasone (FLONASE) 50 mcg/actuation nasal spray Use 1 [place] in each nostril once daily. - fluticasone-salmeterol (WIXELA INHUB) 250-50 mcg/dose inhaler Inhale 1 Puff as instructed two times a day. - cholecalciferol (VITAMIN D3) 1,000 unit tab tablet Take 2 tablets by mouth once daily. - levonorgestrel (MIRENA) 20 mcg/24 hr (5 years) IUD 1 Each by INTRAUTERINE route one time only. Problem List As Of Date 12/25/2023 Noted Resolved Bicuspid AV/AI.. 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] 07/31/2001 02/09/2017 Depressive disorder, not elsewhere classified [*07/31/2001 12/21/2015 Endometriosis of other specified sites [N80.8] 07/31/2001 02/09/2017 ESOPHAGEAL REFLUX [K21.9] 07/31/2001 5.2.1 CHRONIC POST TRAUMA H/A W/ MINOR HEAD TRA*05/19/2003 02/09/2017 Allergic Rhinitis [J30.9] 03/05/2009 Bulimia [F50.20] 04/08/2009 12/24/2022 Vitamin B12 Deficiency [E53.8] 06/23/2009 Dysmenorrhea [N94.6] Routine gynecological examination [Z01.419] 10/23/2012 02/09/2017 Tobacco abuse [Z72.0] 05/11/2021 History of endometriosis [Z87.42] 01/28/2015 Moderate episode of recurrent major depressive *12/21/2015 Raynaud's disease without gangrene [I73.00] 01/14/2016 Fibromyalgia [M79.7] 01/17/2016 Migraine without aura and without status migrai*01/17/2016 Encounter for monitoring proton pump inhibitor *02/09/2017 05/11/2021 Bicuspid aortic valve [Q23.81] 02/09/2017 Obesity, Class I, BMI 30-34.9 [E66.811] 02/09/2017 05/11/2021 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] 02/09/2017 LEONARD (generalized anxiety disorder) [F41.1] 04/11/2017 Risk and functional assessment [Z13.9] 06/04/2017 05/11/2021 Rectal prolapse [K62.3] 03/21/2018 08/19/2018 RP (rectal prolapse) [K62.3] 03/21/2018 04/11/2018 Hx of migraines [Z86.69] 04/03/2018 05/11/2021 Nicotine use disorder, F17.2 [F17.200] 04/12/2018 Mild intermittent asthma without complication [*05/28/2019 Obesity, Class III, BMI 40-49.9 (morbid obesity*05/11/2021 Dyslipidemia [E78.5] 05/19/2021 Prediabetes [R73.03] 05/19/2021 Obesity, Class II, BMI 35-39.9 [E66.812] 03/31/2022 Chronic bilateral low back pain without sciatic*04/26/2022 Bilateral leg pain [M79.604, M79.605] 04/26/2022 Muscle spasm of back [M62.830] 04/26/2022 Bilateral hip pain [M25.551, M25.552] 04/26/2022 Foot pain, bilateral [M79.671, M79.672] 04/26/2022 Chronic pain of both knees [M25.561, M25.562, G*04/26/2022 Decreased pedal pulses [R09.89] 04/26/2022 Housing instability [Z59.819] 04/26/2022 12/22/2022 Domestic concerns [Z65.8] 04/26/2022 12/22/2022 Lack of access to transportation [Z59.82] 04/26/2022 Aortic valve stenosis [I35.0] 01/21/2023 Ascending aorta dilatation (HCC) [I77.810] 01/21/2023 Condyloma acuminatum [A63.0] 05/01/2023 Diagnosed: 05/01/2023 Constipation [K59.00] 05/07/2013 Diagnosed: 05/01/2023 Hemorrhage of rectum and anus [K62.5] 05/07/2013 Diagnosed: 05/01/2023 Internal hemorrhoids without complication [K64.*05/07/2013 Diag (more content not included)... Normal [facility] CBC panel Auto (Bld)on 12-23 Erythrocyte distribution width (RBC) [Ratio] 13.2 % Normal 11.5-15.0 [facility] Comment on above: Order Comment: Speci men Type: BLOOD SPECIMENOrdering Facility: [facility] Address: [address] [place] [address] [place] [address] Performed By: #### 5 8410-2 ####[facility] LABIA [id number] [place] [address] [place] Hematocrit (Bld) [Volume fraction] 43.4 % Normal 36.0-46.0 [facility] Comment on above: Order Comment: Speci men Type: BLOOD SPECIMENOrdering Facility: [facility] Address: [address] [place] [address] Performed By: #### 5 8410-2 ####[facility] LABIA [id number] [place] [address] [place] Hemoglobin (Bld) [Mass/Vol] 13.5 g/dL Normal 11.5-15.5 [facility] Comment on above: Order Comment: Speci men Type: BLOOD SPECIMENOrdering Facility: [facility] Address: [address] [place] [address] Performed By: #### 5 8410-2 ####[facility] LABIA [id number] [place] [address] [place] MCH (RBC) [Entitic mass] 29.8 pg Normal 26.0-34.0 [facility] Comment on above: Order Comment: Speci men Type: BLOOD SPECIMENOrdering Facility: [facility] Address: [address] [place] [address] Performed By: #### 5 8410-2 ####[facility] LABIA [id number] [place] [address] [place] MCHC (RBC) [Mass/Vol] 31.1 g/dL Normal 30.5-36.0 [facility] Comment on above: Order Comment: Speci men Type: BLOOD SPECIMENOrdering Facility: [facility] Address: [address] [place] [address] Performed By: #### 5 8410-2 ####[facility] [id number] [place] [address] [place] MCV (RBC) [Entitic vol] 95.8 fL Normal 80.0-100.0 [facility] Comment on above: Order Comment: Speci men Type: BLOOD SPECIMENOrdering Facility: [facility] Address: [address] [place] [address] Performed By: #### 5 8410-2 ####[facility] LABCLIA [id number] [place] [address] [place] Nucleated RBC (Bld) [#/Vol] 10*3/uL Normal <0.01 [facility] Comment on above: Order Comment: Speci men Type: BLOOD SPECIMENOrdering Facility: [facility] Address: [address] [place] [address] Performed By: #### 5 8410-2 ####[facility] LABCLIA [id number] [place] [address] [place] Platelet mean volume (Bld) [Entitic vol] 10.3 fL Normal 9.0-12.7 [facility] Comment on above: Order Comment: Speci men Type: BLOOD SPECIMENOrdering Facility: [facility] Address: [address] [place] [address] Performed By: #### 5 8410-2 ####[facility] LABIA [id number] [place] [address] [place] Platelets (Bld) [#/Vol] 484 10*3/uL High 150-400 [facility] Comment on above: Order Comment: Speci men Type: BLOOD SPECIMENOrdering Facility: [facility] Address: [address] [place] [address] Performed By: #### 5 8410-2 ####[facility] LABCLIA [id number] [place] [address] [place] RBC (Bld) [#/Vol] 4.53 10*6/uL Normal 3.90-5.20 [facility] Comment on above: Order Comment: Speci men Type: BLOOD SPECIMENOrdering Facility: [facility] Address: [address] [place] [id number] Performed By: #### 5 8410-2 ####[facility] LABCLIA [id number] [place] [address] [place] WBC (Bld) [#/Vol] 11.35 10*3/uL High 3.70-11.00 [facility] Comment on above: Order Comment: Speci men Type: BLOOD SPECIMENOrdering Facility: [facility] Address: [address] [place] [address] Performed By: #### 5 8410-2 ####[facility] LABCLIA [id number] [place] [address] [place] Comprehensive metabolic 2000 panelon 12-24-2023 Albumin [Mass/Vol] 4.1 g/dL Normal 3.9-4.9 [facility] Comment on above: Order Comment: Speci men Type: BLOOD SPECIMENOrdering Facility: [facility] Address: [address] [place] [address] Performed By: #### 2 4323-8 ####[facility] LABCLIA [id number] [place] [address] [place] ALP [Catalytic activity/Vol] 101 U/L Normal 34-123 [facility] Comment on above: Order Comment: Speci men Type: BLOOD SPECIMENOrdering Facility: [facility] Address: [address] [place] [address] Performed By: #### 2 4323-8 ####[facility] LABCLIA [id number] [place] [id number] [place] ALT [Catalytic activity/Vol] 24 U/L Normal 7-38 [facility] Comment on above: Order Comment: Speci men Type: BLOOD SPECIMENOrdering Facility: [facility] Address: [address] [place], [place] [address] Performed By: #### 2 4323-8 ####[facility] LABCLIA [id number] [place] [address] [place] Anion gap [Moles/Vol] 13 mmol/L Normal 8-15 [facility] Comment on above: Order Comment: Speci men Type: BLOOD SPECIMENOrdering Facility: [facility] Address: [address] [place] [address] Performed By: #### 2 4323-8 ####[facility] LABCLIA [id number] [place] [address] [place] AST [Catalytic activity/Vol] 19 U/L Normal 13-35 [facility] Comment on above: Order Comment: Speci men Type: BLOOD SPECIMENOrdering Facility: [facility] Address: [address] [place] [address] Performed By: #### 2 4323-8 ####[facility] LABCLIA [id number] [place] [address] [place] Bilirubin [Mass/Vol] 0.2 mg/dL Normal 0.2-1.3 [facility] Comment on above: Order Comment: Speci men Type: BLOOD SPECIMENOrdering Facility: [facility] Address: [address] [place] [address] Performed By: #### 2 4323-8 ####[facility] LABCLIA [id number] [place] [address] [place] Calcium [Mass/Vol] 9.1 mg/dL Normal 8.5-10.2 [facility] Comment on above: Order Comment: Speci men Type: BLOOD SPECIMENOrdering Facility: [facility] Address: [address] [place] [address] Performed By: #### 2 4323-8 ####[facility] LABCLIA [id number] [place] [id number] [place] Chloride [Moles/Vol] 102 mmol/L Normal 98-107 [facility] Comment on above: Order Comment: Speci men Type: BLOOD SPECIMENOrdering Facility: [facility] Address: [address] [place] [address] Performed By: #### 2 4323-8 ####[facility] LABCLIA [id number] [place] [address] [place] CO2 [Moles/Vol] 25 mmol/L Normal 22-30 [facility] Comment on above: Order Comment: Speci men Type: BLOOD SPECIMENOrdering Facility: [facility] Address: [address] [place] [address] Performed By: #### 2 4323-8 ####[facility] LABIA [id number] [address] [place] Creatinine [Mass/Vol] 0.72 mg/dL Normal 0.58-0.96 [facility] Comment on above: Order Comment: Speci men Type: BLOOD SPECIMENOrdering Facility: [facility] Address: [address] [place] [address] Performed By: #### 2 4323-8 ####[facility] LABIA [id number] [address] Creatinine and Glomerular filtration rate.predicted panel (S/P/Bld) 105 mL/min/1.73m??? Normal >=60 [facility] Comment on above: Order Comment: Speci men Type: BLOOD SPECIMENOrdering Facility: [facility] Address: [address] [place] [address] Result Comment: Tsering mated Glomerular Filtration Rate (eGFR) is calculated using the 2020 CKD-EPI creatinine equation. This equation utilizes serum creatinine, sex, and age as parameters. The creatinine assay has traceable calibration to isotope dilution-mass spectrometry. Refer to KDIGO guidelines for clinical interpretation. In patients with unstable renal function, e.g. those with acute kidney injury, the eGFR may not accurately reflect actual GFR. Performed By: #### 2 4323-8 ####[facility] LABCLIA [id number] [place] [address] [place] Glucose [Mass/Vol] 96 mg/dL Normal 74-99 [facility] Comment on above: Order Comment: Speci men Type: BLOOD SPECIMENOrdering Facility: [facility] Address: [address] [place] [address] Result Comment: The [place] Diabetes Association (ADA) provides guidance for cutoff values for fasting glucose and random glucose. The ADA defines fasting as no caloric intake for at least 8 hours. Fasting plasma glucose results between 100 to 125 mg/dL indicate increased risk for diabetes (prediabetes).Fasting plasma glucose results greater than or equal to 126 mg/dL meet the criteria for diagnosis of diabetes. In the absence of unequivocal hyperglycemia, results should be confirmed by repeat testing. In a patient with classic symptoms of hyperglycemia or hyperglycemic crisis, random plasma glucose results greater than or equal to 200 mg/dL meet the criteria for diagnosis of diabetes.Reference: Standards of Medical Care in Diabetes 2016, [place] [employer]. Diabetes Care. 2016.39(Suppl 1). Performed By: #### 2 4323-8 ####[facility] LABCLIA [id number] [place] [address] [place] Potassium [Moles/Vol] 4.3 mmol/L Normal 3.7-5.1 [facility] Comment on above: Order Comment: Speci men Type: BLOOD SPECIMENOrdering Facility: [facility] Address: [address] [place], [place] [address] Performed By: #### 2 4323-8 ####[facility] [facility] LABCLIA [id number] [place] [address] [place] Protein [Mass/Vol] 7.3 g/dL Normal 6.3-8.0 [facility] Comment on above: Order Comment: Speci men Type: BLOOD SPECIMENOrdering Facility: [facility] Address: [address] [place], [place] [id number] Performed By: #### 2 4323-8 ####[facility] LABCLIA [id number] [place] [address] [place] Sodium [Moles/Vol] 140 mmol/L Normal 136-144 [facility] Comment on above: Order Comment: Speci men Type: BLOOD SPECIMENOrdering Facility: [facility] Address: [address] [place] [address] Performed By: #### 2 4323-8 ####[facility] LABCLIA [id number] [place] [address] [place] Urea nitrogen [Mass/Vol] 13 mg/dL Normal 7-21 [facility] Comment on above: Order Comment: Speci men Type: BLOOD SPECIMENOrdering Facility: [facility] Address: [address] [place] [address] Performed By: #### 2 4323-8 ####[facility] LABCLIA [id number] [place] [address] [place] CNPNon 12-19-2023 CNPN Normal [facility] CNPNon 12-06-2023 CNPN Normal [facility] CNPNon 11-15-2023 CNPN Normal [facility] CNPNon 11-14-2023 CNPN Normal [facility] CNPNon 11-07-2023 CNPN Normal [facility] CNOVon 10-30-2023 CNOV Normal [facility] Basophil percentageOrdered B y: Williams Cage on 04-09-2023 Basophil percentage 0-5 SEEN /hpf 0-5 [facility] Bilirubin Test strip Ql (U)O rdered By: Williams Cage on 04-09-2023 Bilirubin Ql (U) Negative Negative [facility] Ketones Test strip Ql (U)Ord ered By: Williams Cage on 04-09-2023 Ketones Ql (U) 5 mg/dl Negative [facility] Mucus LM Ql (Urine sed)Order ed By: Williams Cage on 04-09-2023 Mucus Ql (Urine sed) RARE /hpf [facility] Nitrite Test strip Ql (U)Ord ered By: Williams Cage on 04-09-2023 Nitrite Ql (U) Negative Negative [facility] No Panel InformationOrdered By: Williams Cage on 04-09-2023 Urine RBC 0-5 SEEN /hpf 0-5 [facility] Protein Test strip Ql (U)Ord ered By: Williams Cage on 04-09-2023 Protein Ql (U) Negative Negative [facility] Squamous epithelial cells de tection in urine sediment by light microscopyOrdered By: Williams Cage on 04-09-2023 Epithelial cells.squamous LM Ql (Urine sed) 0-5 SEEN /hpf 5-10 [facility] Thin prep Papanicolaou smear with manual screeningOrdered By: Williams Cage on 04-09-2023 Thin prep Papanicolaou smear with manual screening 104 mg/dL 74-106 [facility] Comment on above: MANAGEMENT OF PATIEN T CARE PER NURSING PROTOCOL Urine blood detectionOrdered By: Williams Cage on 04-09-2023 RBC Ql (U) 25 /ul Negative [facility] Urine clarityOrdered By: Williams Cage on 04-09-2023 Clarity (U) Clear Clear [facility] Urine color determinationOrd ered By: Williams Cage on 04-09-2023 Color (U) Yellow Yellow [facility] Urine glucose detectionOrder ed By: Williams Cage on 04-09-2023 Glucose Ql (U) Normal mg/dl Normal [facility] Urine leukocyte esterase det ection by dipstickOrdered By: Williams Cage on 04-09-2023 Leukocyte esterase Test strip Ql (U) Negative Negative [facility] Urine pHOrdered By: Williams pickard on 04-09-2023 pH (U) 5.0 [pH] 5.0 - 8.0 [facility] Urine sediment bacteria coun t by microscopy (number/high power field)Ordered By: Williams Cage on 04-09-2023 Bacteria LM.HPF (Urine sed) [#/Area] RARE /hpf None Seen [facility] Urine specific gravity measu rementOrdered By: Williams Cage on 04-09-2023 Specific gravity (U) [Rel density] 1.025 1.002-1.030 [facility] Urine urobilinogen measureme ntOrdered By: Williams Cage on 04-09-2023 Urobilinogen Ql (U) Normal mg/dl Normal [facility] APTTon 03-20-2022 aPTT Coag (Bld) [Time] 32 s Normal 26 - 39 [facility] Comment on above: Result Comment: THE APTT IS NO LONGER USED FOR MONITORING UNFRACTIONATED HEPARIN THERAPY. FOR MONITORING HEPARIN THERAPY, USE THE HEPARIN ASSAY. Performed By: #### A PTT #### [address] [address] BNPon 03-20-2022 Natriuretic peptide B (Bld) [Mass/Vol] 18 pg/mL Normal 0 - 99 [facility] Comment on above: Result Comment: . <1 00 pg/mL - Heart failure unlikely 100-299 pg/mL - Intermediate probability of acute heart . failure exacerbation. Correlate with clinical . context and patient history. >=300 pg/mL - Heart Failure likely. Correlate with clinical . context and patient history. BNP testing is performed using different testing methodology at [facility] than at other [facility]. Direct result comparisons should only be made within the same method. Performed By: #### B NP2 #### [address] [address] CBC AND DIFFERENTIALon 03-20 % AUTOMATED IMMATURE GRAN 0.4 % Normal 0.0 - 0.9 [facility] Comment on above: Result Comment: Marina ture Granulocyte Count (IG) includes promyelocytes, myelocytes and metamyelocytes but does not include bands. Percent differential counts (%) should be interpreted in the context of the absolute cell counts (cells/L). Performed By: #### C BCDF #### [address] [address] Basophils (Bld) [#/Vol] 0.04 10*3/uL Normal 0.00 - 0.10 [facility] Comment on above: Performed By: #### C BCDF #### [address] [address] Basophils/100 WBC (Bld) 0.3 % Normal 0.0 - 2.0 [facility] Comment on above: Performed By: #### C BCDF #### [address] [address] Eosinophils (Bld) [#/Vol] 0.09 10*3/uL Normal 0.00 - 0.70 [facility] Comment on above: Performed By: #### C BCDF #### [address] [address] Eosinophils/100 WBC (Bld) 0.7 % Normal 0.0 - 6.0 [facility] Comment on above: Performed By: #### C BCDF #### [address] [address] Erythrocyte distribution width (RBC) [Ratio] 12.9 % Normal 11.5 - 14.5 [facility] Comment on above: Performed By: #### C BCDF #### [address] [address] Hematocrit (Bld) [Volume fraction] 47.9 % High 36.0 - 46.0 [facility] Comment on above: Performed By: #### C BCDF #### [address] [address] Hemoglobin (Bld) [Mass/Vol] 15.7 g/dL Normal 12.0 - 16.0 [facility] Comment on above: Performed By: #### C BCDF #### [address] [address] Lymphocytes (Bld) [#/Vol] 2.19 10*3/uL Normal 1.20 - 4.80 [facility] Comment on above: Performed By: #### C BCDF #### [address] [address] Lymphocytes/100 WBC (Bld) 18.0 % Normal 13.0 - 44.0 [facility] Comment on above: Performed By: #### C BCDF #### [address] [address] MCHC (RBC) [Mass/Vol] 32.8 g/dL Normal 32.0 - 36.0 [facility] Comment on above: Performed By: #### C BCDF #### [address] [address] MCV (RBC) [Entitic vol] 92 fL Normal 80 - 100 [facility] Comment on above: Performed By: #### C BCDF #### [address] [address] Monocytes (Bld) [#/Vol] 0.85 10*3/uL Normal 0.10 - 1.00 [facility] Comment on above: Performed By: #### C BCDF #### [address] [address] Monocytes/100 WBC (Bld) 7.0 % Normal 2.0 - 10.0 [facility] Comment on above: Performed By: #### C BCDF #### [address] [address] Neutrophils (Bld) [#/Vol] 8.98 10*3/uL High 1.20 - 7.70 [facility] Comment on above: Result Comment: Perc ent differential counts (%) should be interpreted in the context of the absolute cell counts (cells/L). Performed By: #### C BCDF #### [address] [address] Neutrophils/100 WBC (Bld) 73.6 % Normal 40.0 - 80.0 [facility] Comment on above: Performed By: #### C BCDF #### [address] [address] Platelets (Bld) [#/Vol] 471 10*3/uL High 150 - 450 [facility] Comment on above: Performed By: #### C BCDF #### [address] [address] RBC 5.19 x10E12/L Normal 4.00 - 5.20 [facility] Comment on above: Performed By: #### C BCDF #### [address] [address] WBC (Bld) [#/Vol] 12.2 10*3/uL High 4.4 - 11.3 [facility] Comment on above: Performed By: #### C BCDF #### [address] [address] CHEST 1 VIEWon 03-20-2022 CHEST 1 VIEW STUDY: Chest Radiograph; 03/20/2022, 4:03 PM. INDICATION: Unspecified chest pain. COMPARISON: None Available. ACCESSION NUMBER(S): [id number] ORDERING CLINICIAN: PEPE SALMON DO TECHNIQUE: Frontal chest was obtained at 15:59 hours. FINDINGS: Lungs appear clear. No visible pneumothorax. Heart size within normal limits. No acute bony abnormality detected by this technique. No free air under the diaphragm. IMPRESSION: No radiographic evidence for pneumonia or pulmonary edema. Signed by Joey Chavez D.O. Electronically signed by: JOEY CHAVEZ DO Normal [facility] COMPREHENSIVE PANELon 2022 Albumin [Mass/Vol] 3.9 g/dL Normal 3.4 - 5.0 [facility] Comment on above: Performed By: #### C MP #### [address] [address] ALP [Catalytic activity/Vol] 83 U/L Normal 33 - 110 [facility] Comment on above: Performed By: #### C MP #### [address] [address] ALT [Catalytic activity/Vol] 28 U/L Normal 7 - 45 [facility] Comment on above: Result Comment: Juju ents treated with Sulfasalazine may generate falsely decreased results for ALT. Performed By: #### C MP #### [address] [address] Anion gap [Moles/Vol] 12 mmol/L Normal 10 - 20 [facility] Comment on above: Performed By: #### C MP #### [address] [address] AST [Catalytic activity/Vol] 16 U/L Normal 9 - 39 [facility] Comment on above: Performed By: #### C MP #### [address] [address] Bilirubin [Mass/Vol] 0.6 mg/dL Normal 0.0 - 1.2 [facility] Comment on above: Performed By: #### C MP #### [address] [address] Calcium [Mass/Vol] 8.8 mg/dL Normal 8.6 - 10.3 [facility] Comment on above: Performed By: #### C MP #### [address] [address] Chloride [Moles/Vol] 105 mmol/L Normal 98 - 107 [facility] Comment on above: Performed By: #### C MP #### [address] [address] Creatinine [Mass/Vol] 0.80 mg/dL Normal 0.50 - 1.05 [facility] Comment on above: Performed By: #### C MP #### [address] [address] eGFR FEMALE >90 Normal >90 [facility] Comment on above: Result Comment: CALC ULATIONS OF ESTIMATED GFR ARE PERFORMED USING THE 2020 CKD-EPI STUDY REFIT EQUATION WITHOUT THE RACE VARIABLE FOR THE IDMS-TRACEABLE CREATININE METHODS. https://jasn.asnjournals.org/content/early//ASN.90521 [address]32 Performed By: #### C MP #### [address] [address] Glucose [Mass/Vol] 117 mg/dL High 74 - 99 [facility] Comment on above: Performed By: #### C MP #### [address] [address] HCO3 (Bld) [Moles/Vol] 25 mmol/L Normal 21 - 32 [facility] Comment on above: Performed By: #### C MP #### [address] [address] Potassium [Moles/Vol] 3.9 mmol/L Normal 3.5 - 5.3 [facility] Comment on above: Performed By: #### C MP #### [address] [address] Protein [Mass/Vol] 7.0 g/dL Normal 6.4 - 8.2 [facility] Comment on above: Performed By: #### C MP #### [address] [place] [address] Sodium [Moles/Vol] 138 mmol/L Normal 136 - 145 [facility] Comment on above: Performed By: #### C MP #### [address] [address] Urea nitrogen [Mass/Vol] 16 mg/dL Normal 6 - 23 [facility] Comment on above: Performed By: #### C MP #### [place] [id number] D-DIMER, VTE EXCLUSIONon D-DIMER, VTE EXCLUSION 306 ng/mL FEU Normal < or = 500 [facility] Comment on above: Result Comment: The VTE Exclusion D-Dimer assay is reported in ng/mL Fibrinogen Equivalent Units (FEU). Per manufacturers instructions for use, a value of less than 500 ng/mL (FEU) may help to exclude DVT or PE in outpatients when the assay is used with a clinical pretest probability assessment. (AEMR must utilize and document eCalc Wells Score Deep Vein Thrombosis Risk for DVT exclusion only; Emergency Department should utilize Guidelines for Emergency Department Use of the VTE Exclusion D-Dimer and Clinical Pretest probability assessment model for DVT or PE exclusion.) Performed By: #### D IMEX ####[address] [address] PT/INRon 03-20-2022 PT Coag (PPP) [Time] 13.2 s Normal 9.8 - 13.4 [facility] Comment on above: Performed By: #### P TINR #### [place] [id number] PT, INR 1.1 Normal 0.9 - 1.1 [facility] Comment on above: Performed By: #### P TINR #### [address] [address] Provider Note - ED v3on 02-21 Provider Note - ED v3 Provider Note: Chart Review: ED NOTES ED NOTES: Source of Information: Patient. EMR was reviewed for previous records. The EMS transfer sheet was not available during my initial assessment of the patient. -------- HPI: Chest pain. This 46-year-old white female presents to the ED via EMS from home secondary complaint of chest pain symptoms she states that she started having chest pain on Sunday and is continuing of chest pain since then. Patient was seen and evaluated at [facility] for her chest pain and was diagnosed with nonspecific chest pain symptoms. EMS indicated the patient appeared to be somewhat diaphoretic when they picked her up and she was experiencing 8 out of 10 chest pain that she describes as pressure. She was treated IV Zofran oral aspirin and 3 sublingual nitro with improvement of her symptoms. Patient states that her with movement. She denies ever having a cardiac stress test or heart catheterization previously she denies any family history of heart disease at a young age. She states that the pain does radiate into her left axilla. She states rest helps her symptoms to some extent. She denies any associated shortness of breath with that. Patient does admit to history of aortic stenosis that is being monitored yearly with ultrasounds. -------- PMH: Obesity, aortic stenosis, mitral valve prolapse, endometriosis, depression, GERD, sleep apnea, narcolepsy, migraine headaches PSH: Rectal prolapse, laparoscopy x2 for endometriosis Social Hx: The patient denies any use of tobacco or alcohol currently. Patient quit smoking 6 months ago. Patient also admits to occasional use of marijuana for symptoms of nausea. Fam: MEDS: Noted in the EMR. ALLERGIES: NKDA -------- PHYSICAL EXAM: General: Patient alert, awake, oriented X3, appears to be in no obvious distress, nontoxic, cooperative Skin: Warm. Dry. Intact. No rash. Eyes: PEARTLA, EOMIs intact, sclera white, conjunctiva clear HEENT: Atraumatic. Normo-cephalic. Oral and nasal mucosa pink and moist. Neck: Supple without meningismus, no lymphadenopathy. CV: Regular rate and rhythm without murmurs, heaves, lifts or thrills. Respiratory: Nonlabored breathing. There are no retractions or tachypnea. Lungs are clear to auscultation bilaterally. GI: Soft, nontender, without gross distention, bowel sounds present in all 4 quadrants. There is no pulsatile masses. There is no CVA tenderness. No rebound, rigidity or guarding. MUSC: There is no joint swelling or bony tenderness on exam. Neuro: Cranial nerves II - XII grossly intact. No focal neurologic deficits are noted on exam. Lower extremities: There is no peripheral edema bilaterally, negative Homans sign. No palpable cords. Distal pulses are +2/4 and present in both lower extremities. Psych: Maintains eye contact. Cooperative. -------- ED course: EKG was interpreted by myself at 1523 reveals normal sinus rhythm 93 bpm with no acute ST or T wave changes. The P waves are somewhat enlarged. GA interval is 140 ms. The QRS durations 82 ms. The QTc is 447 ms axis is 58 degrees. Staff indicated to me that the patient has a history of gastritis and was wanting treatment I ordered IV Protonix for the patient. Repeat EKG was performed at 1642 reveals normal sinus rhythm 75 bpm with no acute ST-T wave changes. The GA interval is 142 ms. The QRS durations 86 ms. QTc is 451 ms axis is 15 degrees. Patient was seen and evaluated due to complaints of chest pain and epigastric symptoms. Patient's EKGs were both unremarkable. Patient had a troponin and delta troponin are negative. D-dimer testing was negative. I feel that most of the patient's symptoms may be secondary to her stomach versus cardiac. Her heart score is 1. I had a discussion with the patient she states that she lives with her friend and does not have transportation to her primary care doctor or to see a specialist I recommended she get an EGD as an outpatient. She is on a PPI and was prescribed Carafate in addition to that to help with her symptoms. Patient was referred to follow-up with Dr. Wu and referred back to her primary care doctor for follow-up. This chart was dictated with the use of [employer] software within the framework of the current electronic medical records software. Attempts were made to edit in real time, given time constraints there is the potential for inaccu (more content not included)... Normal [facility] Risk Screen - Adult Emergenc yon 03-20-2022 Risk Screen - Adult Emergency Preferred Language: Preferred Language: Preferred Language for Discussing Health Care (patient/designee)Jennifer barrett Patient Preferred Pharmacy: Patient Preferred Pharmacy Statement: I have reviewed and updated the patient's preferred pharmacy selection for today's visit. Advanced Directives: Advance Directive/DNRno Family Violence Adult: Abuse Screen: Are you or have you been threatened or abused physically, emotionally, or sexually by anyoneno Learning Assessment (Patient): Learning Assessment (Patient): Patient is Able to be Assessed for Learningyes Factors Influencing Readiness to Learnacuteness of illness Factors that Impact Ability to Learnnone Devices/Methods Used to Communicatenone Learning Preferencesindividual instruction Cultural Considerationsnone Developmental Considerationsnone Sabianism Considerationsnone Learning Assessment (Other Learner): Learning Assessment (Other Learner): Other learner availableno Pressure Injury/TB/Substance: Pressure Injury: Do you have a coughno Smoking Statusformer smoker Alcohol Usedenies Drug Useoccasionally Substance Commentcanabis Admission Risk Screen: Significant IndicatorsComplete CAGE: CAGE: Is this an injured patient at a Trauma Center ([facility]/[place] /[place]): no Electronic Signatures: Aydee Holcomb (NORBERTO) (Signed 20-Mar-2022 15:44) Authored: Preferred Language, Patient Preferred Pharmacy, Advanced Directives, Family Violence Adult, Learning Assessment (Patient), Learning Assessment (Other Learner), Pressure Injury/TB/Substance, Pressure Injury, CAGE Last Updated: 20-Mar-2022 15:44 by Aydee Holcomb (NORBERTO) Normal [facility] TROPONIN I, HIGH SENSITIVITY on 03-20-2022 TROPONIN I, HIGH SENSITIVITY 3 ng/L Normal 0 - 13 [facility] Comment on above: Result Comment: . Less than 99th percentile of normal range cutoff- Female and children under 18 years old <14 ng/L; Male <21 ng/L: Negative Repeat testing should be performed if clinically indicated. . Female and children under 18 years old 14-50 ng/L; Male 21-50 ng/L: Consistent with possible cardiac damage and possible increased clinical risk. Serial measurements may help to assess extent of myocardial damage. . >50 ng/L: Consistent with cardiac damage, increased clinical risk and myocardial infarction. Serial measurements may help assess extent of myocardial damage. . NOTE: Children less than 1 year old may have higher baseline troponin levels and results should be interpreted in conjunction with the overall clinical context. . NOTE: Troponin I testing is performed using a different testing methodology at [facility] than at other [facility]. Direct result comparisons should only be made within the same method. Performed By: #### T [facility] #### [address] [address] TROPONIN I, HIGH SENSITIVITY 4 ng/L Normal 0 - 13 [facility] Comment on above: Result Comment: . Less than 99th percentile of normal range cutoff- Female and children under 18 years old <14 ng/L; Male <21 ng/L: Negative Repeat testing should be performed if clinically indicated. . Female and children under 18 years old 14-50 ng/L; Male 21-50 ng/L: Consistent with possible cardiac damage and possible increased clinical risk. Serial measurements may help to assess extent of myocardial damage. . >50 ng/L: Consistent with cardiac damage, increased clinical risk and myocardial infarction. Serial measurements may help assess extent of myocardial damage. . NOTE: Children less than 1 year old may have higher baseline troponin levels and results should be interpreted in conjunction with the overall clinical context. . NOTE: Troponin I testing is performed using a different testing methodology at [facility] than at other [facility]. Direct result comparisons should only be made within the same method. Performed By: #### T [facility] #### [address] [address] Triage - EDon 03-20-2022 Triage - ED Quick Triage: Are You no Are You Currently Breastfeedingno Chart Review: PRIMARY ASSESSMENT ABCD Normal Findings: airway open and patent and breathing normal Circulation Skin Condition: warm and dry Skin Color: normal for race Disability Disability/AVPU: PAUL is alert Level of Consciousness: age appropriate TREATMENT PRIOR TO ARRIVAL Treatment Prior to Arrival: Prior to arrival in the Emergency Department PAUL DAVENPORT had treatment conducted by EMS which included the following; EKG, IV, medications, oxygen and saline lock. EMS REPORTED VITAL SIGNS Blood Pressure: 150/113 Mean: Pulse Oximetry: 94% Oxygen Administration: nasal cannula at the rate of 2.0 L/min. Medications Administrated: Aspirin 325 mg. Nitroglycerin SL 12.0 mg. IV Solution Initiated Prior to Arrival: sodium chloride 0.9% ARRIVAL INFORMATION Means of Arrival: stretcher Mode of Arrival: ambulance Agency [place]: [place] Arrival From: home Accompanied By: self Language: Spoken Language Preferred: Italian CHIEF COMPLAINT PAUL DAVENPORT is a Female patient with a chief complaint of chest pain. Onset of the Complaint: 20-Mar-2022 Other Complaints: Pt. having chest pain that radiates under her breast and into her armpit since Sunday. Pt. was seen at [facility] Sunday and sent home. Pt. states that the pain gets better with rest. Denies any SOB. Triage Date/Time: 20-Mar-2022 15:22 ZOE: 2 Pain Rating (0-10): 3 = Mild Vital Signs: Temperature: 98.1F ( 36.7C) taken toe Blood Pressure: 122/94 Mean: Heart Rate: 92 Respiratory Rate: 20 Pulse Oximetry: 96% on room air, no respiratory support. Height: 5 feet 5.00 inches. 165.1 CM Weight: 220.4 pounds. Calculated 100.0 kg. (stated) Calculated BMI (kg/m2): 36.686 Calculated BSA (m2) 2.14 Joyce Coma Scale: Best Eye Response: (E4) spontaneous Best Motor Response: (M6) obeys commands Best Verbal Response: (V5) oriented Joyce Score: 15 Allergies: no Patient has homicidal thoughts: no Risk Screens Suicide Risk Screen In the Past Month: Have you wished you were or wished you could go to sleep and not wake up no In the Past Month: Have you had any actual thoughts of killing yourself no In Your Lifetime: Have you ever done anything, started to do anything, or prepared to do anything to end your life no Jacobo Fall Scale Screening Has the patient fallen before (or is the patient in the ED as a result of a fall) has not had a fall Does the patient have an impaired gait does not have impaired gait Is the patient cognitively impaired not cognitively impaired Interventions: Jacobo Fall Interventions: LOW INTERVENTIONS: *patient oriented to surroundings and call system, * patient/family falls education completed and documented, *patients fall status communicated during bedside handoff, *whiteboard updated, *mode of toileting discussed with patient, *bed in low position with brakes locked, *call light in reach, * non-skid footwear PAST MEDICAL HISTORY Immunization History: Last Known Tetanus Immunization: Unknown TRAVEL HISTORY Travel History Coronavirus Screening: no exposure or symptoms Travel Exposure History: NO travel to International locations in the past 30 days PAIN Pain Scale Used: ZAMZAM Pain Assessment: chest, yes, tightness and activity Pain Rating (0-10): 3 = Mild Pain Management Interventions: medication Response to Pain Interventions: decrease in pain Past Medical History: Past Medical History Reviewedyes Electronic Signatures: Aydee Holcomb (RN) (Signed 20-Mar-2022 15:43) Entered: Risk Screens, Pain, Arrival, Pre-arrival, ABCD, Immunizations, Travel History, Chart Review, Scores, Past Medical History Authored: Quick Triage, Risk Screens, Pain, Arrival, Pre-arrival, ABCD, Immunizations, Travel History, Chart Review, Scores, Past Medical History Last Updated: 20-Mar-2022 15:43 by Aydee Holcomb (RN) [facility] Covid 19 Resultson 2 SARS-CoV-2 (COVID-19) RNA KADY+probe Ql (Unsp spec) NEGATIVE COVID-19 Test Coronaviruses are common world-wide and are the cause of many common colds. SARS-COV2 is a new coronavirus that began circulating worldwide in 2019 so we are calling it COVID-19. It has been estimated that four out of five patients with COVID-19 will recover at home without the need for medical attention. Symptoms of COVID-19 may include cough, fever, shortness of breath, loss of taste or smell and other flu-like symptoms including chills, sore muscles, sore throat, and headache. Severe illness is more common in older people and people with other health problems such as high blood pressure, obesity, and immune system problems. If the test is positive, you have COVID-19. You will be contacted by the ordering physicians office and instructed to remain on home isolation, in accordance with CDC guidelines. You may also be contacted by the [facility] to see if any of your close contacts may have been exposed to the virus and need to quarantine. If the test is negative, you likely do not have COVID-19 at this time, but you still may have a different illness that can spread to other people (like Influenza, or the Flu) and could still be at risk for getting COVID-19. We recommend that you stay away from other people to limit the spread of illness until your symptoms are improving and you are fever-free for 24 hours without the use of fever lowering medications such as acetaminophen or ibuprofen. No test is 100% accurate so if you are still concerned you may have COVID-19, talk to your doctor about the need to continue to stay away from others. Medicines Unless your provider told you not to use the following: Acetaminophen (Tylenol and others) is generally safe. Anti-inflammatory medications, such as Ibuprofen (Advil or Motrin) or Naproxen (Aleve) can also be used. Rlnh-dne-gngvnoh cough and cold medicines can be used according to the instructions on the package. Some rgww-uff-tpfftkf medicines also contain acetaminophen. Make sure you are not taking more than your recommended dose. For those not hospitalized, there is no specific treatment available for this illness. Antibiotics do not treat Coronaviruses. Follow-Up Follow up with your doctor by scheduling a virtual visit or consider follow-up at one of our urgent care fever clinics. If you are having difficulty breathing, or are very weak and having difficulty standing, this is a medical emergency. Call 911 or have someone take you to the nearest emergency room immediately. If possible, wear a facemask. Additional guidance from the CDC for patients who tested POSITIVE for COVID-19 How to isolate: Isolate yourself in a specific room at home and limit your contact with others. Use a separate bathroom from other members of the household, when possible. Leave home only to get essential medical care. Do not go to work, school or public areas. Avoid using public transportation, ride-sharing, or taxis. Restrict contact with pets and other animals. If you must care for your pet or be around animals while you are sick, wash your hands before and after your interaction and wear a facemask. Make sure that shared spaces in the home have good airflow, such as by an air conditioner or an opened window, weather permitting. Personal Hygiene Procedures: Wear a face mask when in the same room as other people or pets. If a face mask interferes with your breathing, others should wear a mask when sharing space with you. Frequent hand-washing: wash your hands with soap and water for at least 20 seconds. If soap and water are not available, use alcohol-based hand snow remover. Avoid touching your eyes, nose, and mouth with unwashed hands. Household Hygiene Procedures: Avoid sharing personal household items such as dishes, glassware, cups, eating utensils, towels or bedding with other people or pets in your home. After use, these items should be washed with soap and hot water. Disinfect all high-touch surfaces every day with antibacterial cleaning solutions such as Lysol wipes, bleach, cleansers, etc. High-touch surfaces include tabletops, doorknobs, bathroom fixtures, toilets, phones, keyboards, tablets and bedside tables. Immediately clean any surfaces that may have blood, poop or body fluids on them, using antibacterial cleaning solutions such as Lysol wipes, bleach, cleansers, etc. If clothing or bedding come into contact with blood, poop or body fluids, they should be washed immediately. Follow the directions on the laundry detergent and clothing labels but hot water is recommended when possible. Stopping home isolation precautions: If possible, consult your doctor before stopping home isolation precautions. According to the CDC, you can discontinue home isolation precautions when you have met both of these criteria: Your fever and respiratory symptoms have been gone for 24 manjit (more content not included)... Normal [facility] INFLUENZA A/B, COVID 2019 PC R,SYMPTOMATICon 02-13-2022 INFLUENZA A, PCR Not detected Normal Not Detected [facility] Comment on above: Result Comment: Resp iratory virus testing is performed routinely by PCR for Influenza A/B and RSV. Not Detected results do not preclude Influenza A/B or RSV infections since the adequacy of sample collection or low viral burden may impact the clinical sensitivity of this test method. Performed By: #### C OINP ####[place] [address] INFLUENZA B, PCR Not detected Normal Not Detected [facility] Comment on above: Result Comment: Resp iratory virus testing is performed routinely by PCR for Influenza A/B and RSV. Not Detected results do not preclude Influenza A/B or RSV infections since the adequacy of sample collection or low viral burden may impact the clinical sensitivity of this test method. Performed By: #### C OINP ####[place] [address] SARS-CoV-2 (COVID-19) RNA KADY+probe Ql (Unsp spec) Not detected Normal Not Detected [facility] Comment on above: Result Comment: . This test has received FDA Emergency Use Authorization (EUA) and has been verified by [facility]. This test is only authorized for the duration of time that circumstances exist to justify the authorization of the emergency use of in vitro diagnostic tests for the detection of SARS-CoV-2 virus and/or diagnosis of COVID-19 infection under section 564(b)(1) of the Act, 21 U.S.C. 360bbb-3(b)(1), unless the authorization is terminated or revoked sooner. [facility] is certified under CLIA-88 as qualified to perform high complexity testing. Testing is performed in the [facility] laboratory located at [address] [place] [address]. SARS-CoV-2/Flu/RSV Multiplex Test: Fact sheet for providers: https://www.fda.gov/media/257223/download Fact sheet for patients: https://www.fda.gov/media/808166/download Performed By: #### C OINP ####[place] [address] Provider Note - ED v3on 01-20 Provider Note - ED v3 Provider Note: Chart Review: ED NOTES ED NOTES: 46-year-old female presents with 3 to 4-day history of cough and congestion. Patient states she started smoking again. Patient states cough is minimally productive. States she has been wheezing at home. She denies any nausea or vomiting but does have a small amount of diarrhea. Patient denies any chest pain with symptoms. Patient states she started smoking again. She refused x-ray. I did go over all the results with her. Patient will receive an aerosol prior to discharge. Patient also just refused aerosol. Patient has been instructed to take medication and follow-up with [facility] medical doctor 1 to 2 days. If symptoms worsen return to ED. HISTORY OF PRESENTING ILLNESS PAUL is a 46 year old Female and was seen by me at 13-Feb-2022 16:05 for a chief complaint of cough (Stated she quit smoking and recently started again. Fells like she has bronchitis and stated she has had a cough and wheezing. Denies shortness of breath or chest pain.)(1). The historian is the patient. Triage Information: Most recent Vital Sign Value Date Temp (F): 97.8 02-13-2022 15:48 Temp (C): 36.5 02-13-2022 15:48 Heart Rate (beats/min): 87 02-13-2022 15:48 Respirations (breaths/min): 18 02-13-2022 15:48 SpO2 (%): 97 02-13-2022 15:48 BP Systolic (mm Hg): 135 02-13-2022 15:48 BP Diastolic (mm Hg): 103 02-13-2022 15:48 PAST MEDICAL HISTORY CURRENT OR FORMER SUBSTANCE USE: Tobacco/Nicotine Use: moderate user (uses 11-30 cig/day, OR 0.5-1.5 ppd, OR 2-3 cans/pouches loose leaf tobacco per week, OR 0.5-1.5 vape pods per day) ALLERGIES/INTOLERANCES: No Known Allergies HEALTH HISTORY: No documented data. OUTPATIENT MEDICATIONS: Home Medications Review Status for Reconciliation: N/A Med Status: Patient Currently Takes Medications Drug Name: Abilify 20 mg oral tablet Instructions: 1 tab(s) orally once a day Drug Name: FLUoxetine 60 mg oral tablet Instructions: 1 tab(s) orally once a day (in the morning) Drug Name: Lyrica 225 mg oral capsule Instructions: 1 cap(s) orally 2 times a day Drug Name: Protonix 40 mg oral delayed release tablet Instructions: 1 tab(s) orally once a day Drug Name: propranolol 20 mg oral tablet Instructions: 1 tab(s) orally once a day SIGNIFICANT EVENTS: Past Medical History Description:depression Description:migraine Description:aortic stenosis REVIEW OF SYSTEMS CONSTITUTIONAL: POSITIVE for: malaise RESPIRATORY: POSITIVE for: cough and wheezing All other systems reviewed and are negative PHYSICAL EXAM CONSTITUTIONAL: Well appearing, well nourished, awake, alert, oriented to person, place, time/situation and in no apparent distress. HENMT: Airway patent, ears with clear tympanic membranes bilaterally. Nasal mucosa clear. Mouth with normal mucosa. Throat has no vesicles, no oropharyngeal exudates and uvula is midline. Face with no lymph node enlargement. EYES: Clear bilaterally, pupils equal, round and reactive to light. CARDIOVASCULAR: Normal rate, regular rhythm. Heart sounds S1, S2. No murmurs, rubs or gallops. PMI non-displaced. RESPIRATORY: Breath sounds decreased with wheezing GASTROINTESTINAL: Abdomen soft, non-distended, no rebound, no guarding. Bowel sounds normal in all 4 quadrants. GENITOURINARY: No discharge, no lesions. MUSCULOSKELETAL: Spine appears normal, range of motion is not limited, no muscle or joint tenderness. NEUROLOGICAL: Alert and oriented, no focal deficits, no motor or sensory deficits. SKIN: Skin normal color for race, warm, dry and intact. No evidence of trauma. PSYCHIATRIC: Alert and oriented to person, place, time/situation. normal mood and affect. No apparent risk to self or others. HEME/LYMPH: No adenopathy or splenomegaly. No cervical, supraclavicular or inguinal lymphadenopathy. CRITICAL CARE RESULTS: Recent Lab Results: I have reviewed these laboratory results: Influenza A/B,Covid 2019 PCR,Symptomatic 13-Feb-2022 16:44:00 ResultValue Fluid Source Nasal, Nasopharyngeal Influenza A PCR NOT DETECTED Reference Range: Not Detected Respiratory virus testing is performed routinely by PCR for Influenza A/B and RSV. Not Detected results do not preclude Influenza A/B or RSV infections since the adequacy of sample collection or lo Influenza B PCR NOT DETECTED Reference Range: Not Detected Respiratory virus testing is performed routinely by PCR for Influenza A/B and RSV. Not Detected results do not preclude Influenza A/B or RSV infections since the adequacy of sample collection or lo Coronavirus 2019,PCR NOT DETECTED Reference Range: Not Detected .This test has received FDA Emergency Use Authorization (EUA) and has been verified by [facility]. This test is only authorized for the duration of time that circum Respiratory Syncytial Virus, PCR 13-Feb-2022 16:44:00 ResultValue RSV PCR NOT (more content not included)... Normal [facility] RSV PCRon 02-13-2022 RSV,PCR Not detected Normal Not Detected [facility] Comment on above: Result Comment: Resp iratory virus testing is performed routinely by PCR for Influenza A/B and RSV. Not Detected results do not preclude Influenza A/B or RSV infections since the adequacy of sample collection or low viral burden may impact the clinical sensitivity of this test method. Performed By: #### R [facility] #### [place] [address] Lab Specimen Source Nasal, Nasopharyngeal Normal [facility] Comment on above: Performed By: #### R [facility] #### [place] [address] Performed By: #### C OINP ####[address] [place] [address] Risk Screen - Adult Emergenc yon 02-13-2022 Risk Screen - Adult Emergency Preferred Language: Preferred Language: Preferred Language for Discussing Health Care (patient/designee)Kamlaserg barrett Patient Preferred Pharmacy: Patient Preferred Pharmacy Statement: I have reviewed and updated the patient's preferred pharmacy selection for today's visit. Advanced Directives: Advance Directive/DNRno Family Violence Adult: Abuse Screen: Are you or have you been threatened or abused physically, emotionally, or sexually by anyoneno Learning Assessment (Patient): Learning Assessment (Patient): Patient is Able to be Assessed for Learningyes Factors Influencing Readiness to Learnacuteness of illness Factors that Impact Ability to Learnnone Devices/Methods Used to Communicatenone Learning Preferencesverbal instruction; written material Cultural Considerationsnone Developmental Considerationsnone Sabianism Considerationsnone Learning Assessment (Other Learner): Learning Assessment (Other Learner): Other learner availableno Pressure Injury/TB/Substance: Pressure Injury: Do you have a coughyes... Has your cough lasted longer than 2 weeksno Smoking Statusmoderate user (uses 11-30 cig/day, OR 0.5-1.5 ppd, OR 2-3 cans/pouches loose leaf tobacco per week, OR 0.5-1.5 vape pods per day) Tobacco Cessation Education (provide if tobacco use within the last 12 mos) patient declined Alcohol Usedenies Drug Usedenies Admission Risk Screen: Significant IndicatorsComplete CAGE: CAGE: Is this an injured patient at a Trauma Center ([facility]/[place] /[place]): no Electronic Signatures: Marcelle Ramirez (NORBERTO) (Signed 13-Feb-2022 15:52) Authored: Preferred Language, Patient Preferred Pharmacy, Advanced Directives, Family Violence Adult, Learning Assessment (Patient), Learning Assessment (Other Learner), Pressure Injury/TB/Substance, Pressure Injury, CAGE Last Updated: 13-Feb-2022 15:52 by Marcelle Ramirez (NORBERTO) [facility] Triage - EDon 02-13-2022 Triage - ED Quick Triage: Are You no Have You Given In The Last 6 Weeksno Are You Currently Breastfeedingno Chart Review: ARRIVAL INFORMATION Mode of Arrival: private vehicle CHIEF COMPLAINT PAUL DAVENPORT is a Female patient with a chief complaint of cough (Stated she quit smoking and recently started again. Fells like she has bronchitis and stated she has had a cough and wheezing. Denies shortness of breath or chest pain.). Triage Date/Time: 13-Feb-2022 15:48 ZOE: 3V Pain Rating (0-10): 0 = None Vital Signs: Temperature: 97.8F ( 36.5C) taken temporal Blood Pressure: 135/103 Mean: Heart Rate: 87 Respiratory Rate: 18 Pulse Oximetry: 97% on room air, no respiratory support. Height: feet 65.00 inches. CM Weight: 240.3 pounds. Calculated 109.0 kg. [place] Coma Scale: Best Eye Response: (E4) spontaneous Best Motor Response: (M6) obeys commands Best Verbal Response: (V5) oriented Joyce Score: 15 Cough lasting greater than 3 weeks: no Allergies: no Patient has homicidal thoughts: no Symptoms Are POSITIVE For: cough. Symptoms Are Negative For: body aches, chest pain, chills, congestion, diaphoresis, dyspnea, fever, headache and malaise. Risk Screens Suicide Risk Screen In the Past Month: Have you wished you were or wished you could go to sleep and not wake up no In the Past Month: Have you had any actual thoughts of killing yourself no In Your Lifetime: Have you ever done anything, started to do anything, or prepared to do anything to end your life no Interventions: Jacobo Fall Interventions: LOW INTERVENTIONS: *patient oriented to surroundings and call system, * patient/family falls education completed and documented, *patients fall status communicated during bedside handoff, *whiteboard updated, *mode of toileting discussed with patient, *bed in low position with brakes locked, *call light in reach, * non-skid footwear TRAVEL HISTORY Travel History Coronavirus Screening: no exposure or symptoms Travel Exposure History: NO travel to International locations in the past 30 days PAIN Pain Scale Used: ZAMZAM Pain Rating (0-10): 0 = None Past Medical History: Past Medical History Reviewedyes aortic stenosis: Past Medical History, Active migraine: Past Medical History, Active depression: Past Medical History, Active Electronic Signatures: Marcelle Ramirez) (Signed 13-Feb-2022 15:51) Entered: Risk Screens, Pain, Travel History, Chart Review, Scores, Past Medical History Authored: Quick Triage, Risk Screens, Pain, Travel History, Chart Review, Scores, Past Medical History Last Updated: 13-Feb-2022 15:51 by Marcelle Ramirez) [facility] CBC panel Auto (Bld)on 05-17 Erythrocyte distribution width (RBC) [Ratio] 13.4 % Normal 11.5-15.0 [facility] Comment on above: Order Comment: Spectariq walsh Type: BLOOD SPECIMEN Ordering Facility: [facility] Address: [address] [place] [address] Performed By: #### 5 8410-2 #### [facility] CLIA [id number] [address] [place] [address] [place] #### HBA1C #### [facility] CLIA [id number] [address] [place] [address] [place] Hematocrit (Bld) [Volume fraction] 44.7 % Normal 36.0-46.0 [facility] Comment on above: Order Comment: Ulises walsh Type: BLOOD SPECIMEN Ordering Facility: [facility] Address: [address] [place] [address] Performed By: #### 5 8410-2 #### [facility] CLIA [id number] [address] [place] [address] [place] #### HBA1C #### [facility] CLIA [id number] [address] [place] [address] [place] Hemoglobin (Bld) [Mass/Vol] 14.6 g/dL Normal 11.5-15.5 [facility] Comment on above: Order Comment: Ulises walsh Type: BLOOD SPECIMEN Ordering Facility: [facility] Address: [address] [place] [address] Performed By: #### 5 8410-2 #### [facility] CLIA [id number] [address] [place] [address] [place] #### HBA1C #### [facility] CLIA [id number] [address] [place] [address] [place] MCH (RBC) [Entitic mass] 30.8 pg Normal 26.0-34.0 [facility] Comment on above: Order Comment: Speci men Type: BLOOD SPECIMEN Ordering Facility: [facility] Address: [address] [place] [address] Performed By: #### 5 8410-2 #### [facility] CLIA [id number] [address] [place] [address] [place] #### HBA1C #### [facility] CLIA [id number] [address] [place] [address] [place] MCHC (RBC) [Mass/Vol] 32.7 g/dL Normal 30.5-36.0 [facility] Comment on above: Order Comment: Speci men Type: BLOOD SPECIMEN Ordering Facility: [facility] Address: [address] [place] [address] Performed By: #### 5 8410-2 #### [facility] CLIA [id number] [address] [place] [address] [place] #### HBA1C #### [facility] CLIA [id number] [address] [place] [address] [place] MCV (RBC) [Entitic vol] 94.3 fL Normal 80.0-100.0 [facility] Comment on above: Order Comment: Speci men Type: BLOOD SPECIMEN Ordering Facility: [facility] Address: [address] [place], [place] [id number] Performed By: #### 5 8410-2 #### [facility] CLIA [id number] [address] [place] [address] [place] #### HBA1C #### [facility] CLIA [id number] [address] [place] [address] [place] Nucleated RBC (Bld) [#/Vol] 10*3/uL Normal <0.01 [facility] Comment on above: Order Comment: Speci men Type: BLOOD SPECIMEN Ordering Facility: [facility] Address: [address] [place], [place] [id number] Performed By: #### 5 8410-2 #### [facility] CLIA [id number] [address] [place] [address] [place] #### HBA1C #### [facility] CLIA [id number] [address] [place] [address] [place] Platelet mean volume (Bld) [Entitic vol] 9.9 fL Normal 9.0-12.7 [facility] Comment on above: Order Comment: Speci men Type: BLOOD SPECIMEN Ordering Facility: [facility] Address: [address] [place] [address] Performed By: #### 5 8410-2 #### [facility] CLIA [id number] [address] [place] [address] [place] #### HBA1C #### [facility] CLIA [id number] [address] [place] [address] [place] Platelets (Bld) [#/Vol] 416 10*3/uL High 150-400 [facility] Comment on above: Order Comment: Speci men Type: BLOOD SPECIMEN Ordering Facility: [facility] Address: [address] [place] [address] Performed By: #### 5 8410-2 #### [facility] CLIA [id number] [address] [place] [address] [place] #### HBA1C #### [facility] CLIA [id number] [address] [place] [address] [place] RBC (Bld) [#/Vol] 4.74 10*6/uL Normal 3.90-5.20 [facility] Comment on above: Order Comment: Speci men Type: BLOOD SPECIMEN Ordering Facility: [facility] Address: [address] [place], [place] [id number] Performed By: #### 5 8410-2 #### [facility] CLIA [id number] [address] [place] [address] [place] #### HBA1C #### [facility] CLIA [id number] [address] [place] [address] [place] WBC (Bld) [#/Vol] 9.93 10*3/uL Normal 3.70-11.00 [facility] Comment on above: Order Comment: Speci men Type: BLOOD SPECIMEN Ordering Facility: [facility] Address: [address] [place] [address] Performed By: #### 5 8410-2 #### [facility] CLIA [id number] [address] [place] [address] [place] #### HBA1C #### [facility] [facility] CLIA [id number] [address] [place] [address] [place] Comprehensive metabolic 2000 panelon 05-17-2021 Albumin [Mass/Vol] 4.3 g/dL Normal 3.9-4.9 [facility] Comment on above: Order Comment: Speci men Type: BLOOD SPECIMEN Ordering Facility: [facility] Address: [address] [place], [place] [id number] Performed By: #### 2 4323-8, B12, 3016-3 #### [facility] CLIA [id number] [address] [place] [address] [place] ALP [Catalytic activity/Vol] 103 U/L Normal 34-123 [facility] Comment on above: Order Comment: Speci men Type: BLOOD SPECIMEN Ordering Facility: [facility] Address: [address] [place], [place] [id number] Performed By: #### 2 43238, B12, 3016-3 #### [facility] CLIA [id number] [address] [place] [id number] [place] ALT [Catalytic activity/Vol] 24 U/L Normal 7-38 [facility] Comment on above: Order Comment: Speci men Type: BLOOD SPECIMEN Ordering Facility: [facility] Address: [address] [place] [address] Performed By: #### 2 4323-8, B12, 3015-3 #### [facility] CLIA [id number] [address] [place] [address] [place] Anion gap [Moles/Vol] 10 mmol/L Normal 9-18 [facility] Comment on above: Order Comment: Speci men Type: BLOOD SPECIMEN Ordering Facility: [facility] Address: [address] [place] [address] Performed By: #### 2 432-8, B12, 3015-3 #### [facility] CLIA [id number] [address] [place] [address] [place] AST [Catalytic activity/Vol] 18 U/L Normal 13-35 [facility] Comment on above: Order Comment: Speci men Type: BLOOD SPECIMEN Ordering Facility: [facility] Address: [address] [place] [address] Performed By: #### 2 4323-8, B12, 3015-3 #### [facility] CLIA [id number] [place] [address] [place] Bilirubin [Mass/Vol] 0.3 mg/dL Normal 0.2-1.3 [facility] Comment on above: Order Comment: Speci men Type: BLOOD SPECIMEN Ordering Facility: [facility] Address: [address] [place] [address] Performed By: #### 2 4323-8, B12, 6-3 #### [facility] CLIA [id number] [place] [address] [place] Calcium [Mass/Vol] 9.2 mg/dL Normal 8.5-10.2 [facility] Comment on above: Order Comment: Speci men Type: BLOOD SPECIMEN Ordering Facility: [facility] Address: [address] [address] Performed By: #### 2 4323-8, B12, 3016-3 #### [facility] CLIA [id number] [place] [address] [place] Chloride [Moles/Vol] 102 mmol/L Normal 97-105 [facility] Comment on above: Order Comment: Speci men Type: BLOOD SPECIMEN Ordering Facility: [facility] Address: [address] [place] [address] Performed By: #### 2 4323-8, B12, 3015-3 #### [facility] CLIA [id number] [place] [address] [place] CO2 [Moles/Vol] 28 mmol/L Normal 22-30 [facility] Comment on above: Order Comment: Speci men Type: BLOOD SPECIMEN Ordering Facility: [facility] Address: [address] [place] [address] Performed By: #### 2 4323-8, B12, 3015-3 #### [facility] CLIA [id number] [address] [place] [address] [place] Creatinine [Mass/Vol] 0.66 mg/dL Normal 0.58-0.96 [facility] Comment on above: Order Comment: Speci men Type: BLOOD SPECIMEN Ordering Facility: [facility] Address: [address] Performed By: #### 2 4323-8, B12, 6-3 #### [facility] CLIA [id number] [place] [address] [place] ESTIMATED GLOMERULAR FILTRATION RATE 111 mL/min/1.73m??? Normal >=60 [facility] Comment on above: Order Comment: Speci men Type: BLOOD SPECIMEN Ordering Facility: [facility] Address: [address] [place], [place] [address] Result Comment: Tsering mated Glomerular Filtration Rate (eGFR) is calculated using the 2020 CKD-EPI creatinine equation. This equation utilizes serum creatinine, sex, and age as parameters. The creatinine assay has traceable calibration to isotope dilution-mass spectrometry. Refer to KDIGO guidelines for clinical interpretation. In patients with unstable renal function, e.g. those with acute kidney injury, the eGFR may not accurately reflect actual GFR. Performed By: #### 2 4323-8, B12, 6-3 #### [facility] CLIA [id number] [address] [place] [address] [place] Glucose [Mass/Vol] 105 mg/dL High 74-99 [facility] Comment on above: Order Comment: Ulises walsh Type: BLOOD SPECIMEN Ordering Facility: [facility] Address: [address] [place] [address] Result Comment: The [place] Diabetes Association (ADA) provides guidance for cutoff values for fasting glucose and random glucose. The ADA defines fasting as no caloric intake for at least 8 hours. Fasting plasma glucose results between 100 to 125 mg/dL indicate increased risk for diabetes (prediabetes). Fasting plasma glucose results greater than or equal to 126 mg/dL meet the criteria for diagnosis of diabetes. In the absence of unequivocal hyperglycemia, results should be confirmed by repeat testing. In a patient with classic symptoms of hyperglycemia or hyperglycemic crisis, random plasma glucose results greater than or equal to 200 mg/dL meet the criteria for diagnosis of diabetes. Reference: Standards of Medical Care in Diabetes 2016, [place] Diabetes Association. Diabetes Care. 2016.39(Suppl 1). Performed By: #### 2 4323-8, B12, 6-3 #### [facility] CLIA [id number] [address] [place] [address] [place] Potassium [Moles/Vol] 4.6 mmol/L Normal 3.7-5.1 [facility] Comment on above: Order Comment: Ulises walsh Type: BLOOD SPECIMEN Ordering Facility: [facility] Address: [address] [place], [place] [id number] Performed By: #### 2 4323-8, B12, 6-3 #### [facility] CLIA [id number] [address] [place] [address] [place] Protein [Mass/Vol] 6.6 g/dL Normal 6.3-8.0 [facility] Comment on above: Order Comment: Speci men Type: BLOOD SPECIMEN Ordering Facility: [facility] Address: [address] [place] [address] Performed By: #### 2 4323-8, B12, 3016-3 #### [facility] CLIA [id number] [address] [place] [address] [place] Sodium [Moles/Vol] 140 mmol/L Normal 136-144 [facility] Comment on above: Order Comment: Speci men Type: BLOOD SPECIMEN Ordering Facility: [facility] Address: [address] [place] [address] Performed By: #### 2 4323-8, B12, 3016-3 #### [facility] CLIA [id number] [address] [place] [address] [place] Urea nitrogen [Mass/Vol] 13 mg/dL Normal 7-21 [facility] Comment on above: Order Comment: Speci men Type: BLOOD SPECIMEN Ordering Facility: [facility] Address: [address] [place] [address] Performed By: #### 2 4323-8, B12, 3016-3 #### [facility] CLIA [id number] [address] [place] [address] [place] HGB A1Con 05-17-2021 Average glucose Estimated from glycated hemoglobin (Bld) [Mass/Vol] 126 mg/dL Normal [facility] Comment on above: Order Comment: Speci men Type: BLOOD SPECIMEN Ordering Facility: [facility] Address: [address] [place] [address] Result Comment: eAG: (Estimated average glucose) is a calculated value from HgbA1c and is digital media representative of the average blood glucose level in the last 2-3 month period. Performed By: #### 5 8410-2 #### [facility] CLIA [id number] [address] [place] [address] [place] #### HBA1C #### [facility] CLIA [id number] [address] [place] [address] [place] HbA1c (Bld) [Mass fraction] 6.0 % High 4.3-5.6 [facility] Comment on above: Order Comment: Ulises walsh Type: BLOOD SPECIMEN Ordering Facility: [facility] Address: [address] [place] [address] Result Comment: [place] Diabetes Association guidelines indicate that patients with HgbA1c in the range 5.7-6.4% are at increased risk for development of diabetes, and intervention by lifestyle modification may be beneficial. HgbA1c greater or equal to 6.5% is considered diagnostic of diabetes. Performed By: #### 5 8410-2 #### [facility] CLIA [id number] [address] [place] [address] [place] #### HBA1C #### [facility] CLIA [id number] [address] [place] [address] [place] LIPID PANEL BASICon 05-18-19 22 Cholesterol [Mass/Vol] 169 mg/dL Normal <200 [facility] Comment on above: Order Comment: Ulises walsh Type: BLOOD SPECIMEN Ordering Facility: [facility] Address: [address] [place] [address] Result Comment: <200 mg/dL, Desirable 200-239 mg/dL, Borderline high >239 mg/dL, High Performed By: #### L IPB #### [facility] CLIA [id number] [address] [place] [address] [place] Cholesterol in HDL [Mass/Vol] 38 mg/dL Low >39 [facility] Comment on above: Order Comment: Ulises walsh Type: BLOOD SPECIMEN Ordering Facility: [facility] Address: [address] [place] [address] Result Comment: 40-5 9 mg/dL, Acceptable >59 mg/dL, High: Negative risk factor for coronary heart disease <40 mg/dL, Low: Positive risk factor for coronary heart disease Performed By: #### L IPB #### [facility] CLIA [id number] [address] [place] [address] [place] Cholesterol in LDL [Mass/Vol] 112 mg/dL High <100 [facility] Comment on above: Order Comment: Ulises [facility] Type: BLOOD SPECIMEN Ordering Facility: [facility] Address: [address] [place] [address] Result Comment: <100 mg/dL, Optimal 100-129 mg/dL, Near optimal/above optimal 130-159 mg/dL, Borderline high 160-189 mg/dL, High >189 mg/dL, Very high Secondary prevention optimal LDL Cholesterol levels are recommended to be < 70 mg/dL Performed By: #### L IPB #### [facility] CLIA [id number] [address] [place] [address] [place] Cholesterol in LDL/Cholesterol in HDL [Mass ratio] 2.95 {ratio} High <2.54 [facility] Comment on above: Order Comment: Ulises walsh Type: BLOOD SPECIMEN Ordering Facility: [facility] Address: [address] [place] [address] Result Comment: Refadeel elizalde: 1. National Cholesterol Education Program ATP III Guideline At-A-Glance Quick Desk Reference: National Heart, Lung, and Blood [place]. National Institutes of Health. 2001: NIH Publication No. 01-3305. 2. An International Atherosclerosis Society position paper: global recommendations for the management of dyslipidemia: executive summary, Atherosclerosis. 2014: 232(2):410-413. Performed By: #### L IPB #### [facility] CLIA [id number] [address] [place] [address] [place] Cholesterol in VLDL [Mass/Vol] 19 mg/dL Normal <30 [facility] Comment on above: Order Comment: Hernandeztariq walsh Type: BLOOD SPECIMEN Ordering Facility: [facility] Address: [address] [place] [address] Performed By: #### L IPB #### [facility] CLIA [id number] [address] [place] [address] [place] Cholesterol non HDL [Mass/Vol] 131 mg/dL High <130 [facility] Comment on above: Order Comment: Speci men Type: BLOOD SPECIMEN Ordering Facility: [facility] Address: [address] [place] [address] Result Comment: <130 mg/dL, Optimal 130-159 mg/dL, Near optimal/above optimal 160-189 mg/dL, Borderline high 190-219 mg/dL, High >219 mg/dL, Very high Secondary prevention optimal non HDL Cholesterol levels are recommended to be <100 mg/dL Performed By: #### L IPB #### [facility] CLIA [id number] [address] [place] [address] [place] Cholesterol.total/Chol esterol in HDL [Mass ratio] 4.45 {ratio} Normal <5.10 [facility] Comment on above: Order Comment: Speci men Type: BLOOD SPECIMEN Ordering Facility: [facility] Address: [address] [place] [address] Performed By: #### L IPB #### [facility] CLIA [id number] [address] [place] [address] [place] FASTING TIME 12 hrs Normal [facility] Comment on above: Order Comment: Hernandezi men Type: BLOOD SPECIMEN Ordering Facility: [facility] Address: [address] [place] [address] Performed By: #### L IPB #### [facility] CLIA [id number] [address] [place] [address] [place] Triglyceride [Mass/Vol] 94 mg/dL Normal <150 [facility] Comment on above: Order Comment: Speci men Type: BLOOD SPECIMEN Ordering Facility: [facility] Address: [address] [place] [address] Result Comment: <150 mg/dL, Normal 150-199 mg/dL, Borderline high 200-499 mg/dL, High >499 mg/dL, Very high Performed By: #### L IPB #### [facility] CLIA [id number] [address] [place] [address] [place] TSH SerPl-aCncon 05-17-2021 TSH Qn 1.360 m[IU]/L Normal 0.270-4.200 [facility] Comment on above: Order Comment: Ulises walsh Type: BLOOD SPECIMEN Ordering Facility: [facility] Address: [address] [place], [place] [address] Result Comment: If t he patient is , TSH reference range varies by gestational period: First Trimester (weeks 9-12): 0.180-2.990 mIU/L Second Trimester: 0.110-3.980 mIU/L Third Trimester: 0.480-4.710 mIU/L Giovanni Hooper et al. A Practical Approach for the Verifications and Determination of Site- and Trimester-Specific Reference Intervals for Thyroid Function tests in . Thyroid, 2019:29:3:412-420. Man E, et al. 2017 Guidelines of the [place] Thyroid Association for the Diagnosis and Management of Thyroid Disease during and the . Thyroid, 2017:27:3:315-389. Performed By: #### 2 4323-8, B12, 3016-3 #### [facility] CLIA [id number] [place] [address] [place] VITAMIN B12 BLOODon 05-18-19 Cobalamin (Vitamin B12) [Mass/Vol] 366 pg/mL Normal 232-1,245 [facility] Comment on above: Order Comment: Ulises walsh Type: BLOOD SPECIMEN Ordering Facility: [facility] Address: [address] [place] [address] Performed By: #### 2 4323-8, B12, 3016-3 #### [facility] CLIA [id number] [address] [place] [address] [place] VITAMIN D 25 HYDROXYon 05-17 25-hydroxyvitamin D3 [Mass/Vol] 53.6 ng/mL Normal 31.0-80.0 [facility] Comment on above: Order Comment: Ulises walsh Type: BLOOD SPECIMEN Ordering Facility: [facility] Address: [address] [place], [place] [address] Result Comment: Clas sification of 25 [place] Vitamin D status: Deficiency/Insufficiency: < or = 30 ng/ml. Sufficiency/Optimal Levels: 31-80 ng/mL Toxicity: > 100 ng/mL. Test performed by chemiluminescent immunoassay. Performed By: #### V ITD #### [facility] CLIA [id number] [address] [place], [place] [id number] [facility] CNDSon 04-12-2018 CNDS HNO ID: [id number] Author: Frances Emanuel (Pa) Service: Colorectal Author Type: Physician Sterile Technician Type: Discharge Summaries Filed: 04/12/2018 11:37 AM Note Text: -------- Attestation signed by Joey Pickett at 04/12/2018 3:34 PM Attending Note: Swenson findings confirmed. Patient examined. Discussed with the resident/SOFTWARE TEST DEVELOPER/PA and the patient. Plan as outlined. Joey Pickett MD, FACS, [facility] Colorectal Surgery -------- DISCHARGE SUMMARY PATIENT NAME: Paul Davenport ADMISSION DATE: 04/10/2018 DISCHARGE DATE: 04/12/2018 ATTENDING PHYSICIAN: Joey Pickett Code Status: Not on file Highest Readmission Risk Score: 12 The 30 day readmissions risk score is derived from an internally validated risk model which evaluates patient level characteristics, utilization history, medication orders and lab results up until the day of discharge. Patients with a score of 40 or above are considered highest risk for readmission. Specific patient level drivers will be listed at the bottom of the summary. REASON FOR HOSPITALIZATION: Rectal Prolapse DIAGNOSIS: Principal Problem (Resolved): RP (rectal prolapse) Active Problems: Nicotine use disorder, F17.2 OPERATIONS DURING HOSPITALIZATION: Laparoscopic Rectopexy PROCEDURES DURING HOSPITALIZATION: No procedures performed HOSPITAL COURSE: Ms. Davenport was admitted following the above described operation, which was performed without complication. Post operatively she was admitted to a regular nursing floor for further recovery. She was encouraged to ambulate to minimize her risk for developing a DVT, and to promote bowel function. Her malhotra was removed, and she was able to void without complication. Her diet was advanced, and her medications were converted to oral and tolerated. On April 12, 2018 her vital signs were normal, she had satisfactory toleration of a PO diet, and adequate pain control on oral medications. She was given instructions to follow up in the clinic on an outpatient basis. CONSULTING TEAMS DURING HOSPITALIZATION: None PATIENT CONDITION AT DISCHARGE: Stable DISCHARGE DISPOSITION: Home/Self Care GENERAL: Alert, no distress, cooperative LUNGS: Non labored breathing, no shortness of breath CARDIAC: RRR ABDOMEN: Soft, non-distended, appropriate post operative tenderness, surgical dressing is clean dry and intact EXTREMITIES: No edema NEURO: Grossly intact INFORMATION PROVIDED TO PATIENT: Home Going Instructions After an Anorectal Operation Symptoms or health problems to watch for after I leave the hospital: -Increasing abdominal pain or swelling -Vomiting -Dark or no urine -Fever greater than 101.5?F (38.6?C) or chills -Unable to take in liquids or solid foods for greater than 24 hours -Shortness of breath -Chest pain -Racing heartbeat -Difficulty urinating -Bloody, dark, or tarry stool from rectum For these or any other concerning symptom, please call immediately for advice Diet: A normal diet with appropriate fiber content can be resumed unless otherwise specified by your surgeon. Alcohol: Alcoholic beverages should be avoided until the following day or while using narcotics. Activity: Walking and climbing stairs is acceptable, but strenuous activity (e.g., lifting objects weighing over 30 lbs, sit-ups, press-ups) should be avoided for 4 weeks. Driving: Do not drive a vehicle while still uncomfortable or while taking narcotics. When you return to driving, do not go alone the first time. Wound care: The wound usually heals in 4 weeks and should be kept generally clean with a daily shower, after a shower gently dry the wound. Do not take a bath for 2 weeks following your surgery Medications: These should be taken as instructed by your surgeon including: Stool softeners: Continue to take mineral oil until you have your first bowel movement. Take colace twice a day to keep your stool soft and loose. Pain medications: As prescribed Prior medications: Resume these medications unless otherwise instructed. Bowel function: Bowel function initially tends to be erratic (gas, diarrhea, or seepage; good and bad days), but gradually improves over the following 6 months as your body adjusts to the surgical changes. Foods that worsen your function should be avoided. Do not use enemas unless otherwise specified by your surgeon because they can cause serious damage. Potential problems: Anal irritation: Vigorous wiping after bowel motions can cause irritation that can be minimized by using cotton balls, medicated wipes, or a shower nozzle attachment instead of toilet paper to clean the area followed by gentle drying. An absorbent pad or cotton ball placed between the buttock cheeks can remove irritating moisture or seepage. Bleeding: A small amount of bleeding may occur and is normal. If you experience large amounts of bleeding or the passing of clots, you must call your surgeon for advice. Drainage: Heavy pus-like drainage, for women passage of gas or stool from the vagina, especially if is a new complaint, may indicate a problem, and you must call your surgeon for advice. Surgical infections: Difficulty urinating, fever over 101? F, or worsening pain, may indicate a life-threatening infection, and you must immediately call your surgeon for advice. Office visits: Your follow up appointment is listed below: Follow-up appointment reminders: Future Appointments Date Time Provider Department Center 05/09/2018 8:20 AM [id number], [facility] ALLERGIES Allergen Reactions - Dust extreme coughing, dry hives DISCHARGE MEDICATION: Current Discharge Medication List START taking these medications acetaminophen (TYLENOL) 500-1,000 mg Take 500-1,000 mg by mouth every 8 hours as needed. lactobacillus rhamnosus (CULTURELLE) 1 capsule Take 1 capsule by mouth twice daily. Qty: 60 capsule Refills: 0 docusate sodium (COLACE) 100 mg Take 100 mg by mouth twice daily. Qty: 60 capsule Refills: 0 mineral oil 30 mL Take 30 mL by mouth once daily. Qty: 300 mL Refills: 1 ibuprofen (MOTRIN) 800 mg Take 800 mg by mouth every 8 hours as needed. Qty: 40 tablet Refills: 0 oxyCODONE IR (ROXICODONE) 5 mg Take 5 mg by mouth every 6 hours as needed. Earliest Fill Date: 04/11/18 Qty: 25 tablet Refills: 0 Associated Diagnoses:Acute pain CONTINUE these medications which have NOT CHANGED FLUoxetine (PROzac) 60 mg Take 60 mg by mouth once daily. Takes three 20 mg tabs Associated Diagnoses:Bronchitis with bronchospasm LORazepam (ATIVAN) 1-2 mg Take 1-2 mg by mouth at bedtime as needed. Qty: 60 tablet Refills: 0 Associated Diagnoses:LEONARD (generalized anxiety disorder) Amphetamine-Dextroamphet amine (ADDERALL) 30 mg Take 30 mg by mouth twice daily. Earliest Fill Date: 03/25/18 Qty: 60 tablet Refills: 0 Associated Diagnoses:Primary narcolepsy without cataplexy LYRICA 225 mg capsule TAKE ONE CAPSULE BY MOUTH TWICE DAILY Qty: 60 capsule Refills: 1 Associated Diagnoses:Fibromyalgia sucralfate (CARAFATE) 1 g Take 1 g by mouth twice daily as needed. Qty: 60 tablet Refills: [address] (PROTONIX) 40 mg Take 40 mg by mouth once daily. Qty: 30 tablet Refills: 5 propranolol (INDERAL) 20 mg Take 20 mg by mouth twice daily. Qty: 60 tablet Refills: 5 Associated Diagnoses:Migraine without aura and without status migrainosus, not intractable ARIPiprazole (ABILIFY) 20 mg Take 20 mg by mouth once daily. Refills: 1 SYMBICORT 80-4.5 mcg/actuation inhaler INHALE 2 PUFFS BY MOUTH TWICE DAILY DIRECTED Qty: 1 Inhaler Refills: 5 Associated Diagnoses:Cough albuterol HFA (PROVENTIL HFA, VENTOLIN HFA) 2 Puffs Inhale 2 Puffs as instructed every 4 hours as needed. Qty: 1 Inhaler Refills: 1 Associated Diagnoses:Cough diclofenac sodium (VOLTAREN) 2 g Apply 2 g to affected area twice daily. To feet as needed Qty: 1 Tube Refills: 1 valACYclovir (VALTREX) 1 gram tab Take 2 tab po at onset of pain and then 2 tabs 12 hours later Qty: 12 tablet Refills: 1 Associated Diagnoses:Recurrent cold sores eluxadoline (VIBERZI) 100 mg Take 100 mg by mouth twice daily. Qty: 60 tablet Refills: 1 Associated Diagnoses:Irritable bowel syndrome with diarrhea levonorgestrel (MIRENA) 1 Each 1 Each by INTRAUTERINE route one time only. STOP taking these medications doxycycline monohydrate (MONODOX) 100 mg Comments: Reason for Stopping: predniSONE (DELTASONE) 10 mg tablet Comments: Reason for Stopping: varenicline (CHANTIX) 0.5 mg Comments: Reason for Stopping: azithromycin (ZITHROMAX Z-GARETT) 250 mg tablet Comments: Reason for Stopping: predniSONE (DELTASONE) 10 mg tablet Comments: Reason for Stopping: FLUoxetine 60 mg tab Comments: Reason for Stopping: clindamycin (CLEOCIN T) 1 % gel Comments: Reason for Stopping: amLODIPine (NORVASC) 5 mg Comments: Reason for Stopping: The patient's risk for 30-day readmission is determined using the following contributing factors: Pt variables contributing to increased readmission risk: 23 Active Medication Orders 8 Most Recent BUN Result 8 First Resulted Calcium During Admission 1 Insurance - Medicare 1 Discharge Disposition - Home 1 Active Anticoagulant SIGNATURE: Frances Emanuel PA-C PAGER/CONTACT #: [phone] DATE: April 12, 2018 TIME: 11:33 AM Normal [facility] Magnesiumon 04-12-2018 Magnesium mass conc 1.9 mg/dL Normal 1.7-2.6 [facility] Comment on above: Performed By: #### M G1, PHOS ####[facility] [place], [place] [phone] PLAN OF CAREon 04-12-2018 PLAN OF CARE HNO ID: [id number] Author: Zonia Hogan (Pharmacist) Service: Pharmacy Author Type: Pharmacist Type: Plan of Care Filed: 04/12/2018 9:57 AM Note Text: DISCHARGE MEDICATION REVIEW BY PHARMACY Patient Name: Paul Davenport Account #: Data Unavailable Admission Date: 04/10/2018 Date of Contact: April 12, 2018 Time of Contact: 9:57 AM Medication list was reviewed by a Pharmacist for drug interactions or drug related problems:Yes Below is a summary of pharmacist recommendations discussed with LIP: No Recommendations at this time from Discharge Medication List. Zonia Hogan, Pharmacist April 12, 2018 9:57 AM Pager: [phone] 04/12/2018 9:57 AM Medication List START taking these medications acetaminophen 500 mg tablet Commonly known as: TYLENOL Take 1-2 tablets by mouth every 8 hours as needed. docusate sodium 100 mg capsule Commonly known as: COLACE Take 1 capsule by mouth twice daily. ibuprofen 800 mg tablet Commonly known as: MOTRIN Take 1 tablet by mouth every 8 hours as needed. lactobacillus rhamnosus 10 billion cell capsule Commonly known as: CULTURELLE Take 1 capsule by mouth twice daily. mineral oil liquid Take 30 mL by mouth once daily for 10 days. oxyCODONE IR 5 mg immediate release tablet Commonly known as: ROXICODONE Take 1 tablet by mouth every 6 hours as needed for up to 7 days. CHANGE how you take these medications eluxadoline 100 mg Tab Commonly known as: VIBERZI Take 1 tablet by mouth twice daily for 30 days. What changed: additional instructions FLUoxetine 20 mg capsule Commonly known as: PROzac What changed: Another medication with the same name was removed. Continue taking this medication, and follow the directions you see here. CONTINUE taking these medications albuterol HFA 90 mcg/actuation inhaler Commonly known as: PROAIR HFA Inhale 2 Puffs as instructed every 4 hours as needed. Amphetamine-Dextroamphet amine 30 mg tablet Commonly known as: ADDERALL Take 1 tablet by mouth twice daily for 30 days. Earliest Fill Date: 03/25/18 ARIPiprazole 20 mg tablet Commonly known as: ABILILEATHA diclofenac sodium 1 % topical gel Commonly known as: VOLTAREN Apply 2 g to affected area twice daily. To feet as needed levonorgestrel 20 mcg/24 hr (5 years) IUD Commonly known as: MIRENA * LORazepam 1 mg tablet Commonly known as: ATIVAN Take 1-2 tablets by mouth at bedtime as needed for up to 14 days. * LORazepam 0.5 mg Tab Commonly known as: ATIVAN Take 2-4 tablets by mouth at bedtime as needed for up to 30 days. LYRICA 225 mg capsule Generic drug: pregabalin TAKE ONE CAPSULE BY MOUTH TWICE DAILY pantoprazole DR 40 mg tablet Commonly known as: PROTONIX Take 1 tablet by mouth once daily. propranolol 20 mg tablet Commonly known as: INDERAL Take 1 tablet by mouth twice daily. sucralfate 1 gram tablet Commonly known as: CARAFATE TAKE 1 TABLET BY MOUTH TWICE DAILY NEEDED SYMBICORT 80-4.5 mcg/actuation inhaler Generic drug: budesonide-formoterol INHALE 2 PUFFS BY MOUTH TWICE DAILY DIRECTED valACYclovir 1 gram Tab Commonly known as: VALTREX Take 2 tab po at onset of pain and then 2 tabs 12 hours later * This list has 2 medication(s) that are the same as other medications prescribed for you. Read the directions carefully, and ask your doctor or other care provider to review them with you. STOP taking these medications amLODIPine 5 mg tablet Commonly known as: NORVASC azithromycin 250 mg tablet Commonly known as: ZITHROMAX Z-GARETT clindamycin 1 % gel Commonly known as: CLEOCIN T doxycycline monohydrate 100 mg capsule Commonly known as: MONODOX predniSONE 10 mg tablet Commonly known as: DELTASONE varenicline 0.5 mg tablet Commonly known as: CHANTIX Where to Get Your Medications Information about where to get these medications is not yet available Ask your nurse or doctor about these medications ? acetaminophen 500 mg tablet ? docusate sodium 100 mg capsule ? ibuprofen 800 mg tablet ? lactobacillus rhamnosus 10 billion cell capsule ? mineral oil liquid ? oxyCODONE IR 5 mg immediate release tablet [facility] PROGRESSon 04-12-2018 Protein mass conc HNO ID: [id number] Author: Teo Allison Service: Colorectal Author Type: Resident Type: Progress Notes Filed: 04/12/2018 7:28 AM Note Text: SURGERY PROGRESS NOTE Paul Davenport [id number] Hospital Day: 3 2 Days Post-Op: laparoscopic proctopexy ASSESSMENT AND PLAN: 43 year old female w/rectal prolapse now s/p laparoscopic proctopexy on 04/10. Recovering appropriately on RNF. PAIN: continue PO pain control PRN FEN/GI: Continue GIS diet with bowel regiment ID/ABX: no indication for abx HEME: lovenox 40 QD, SCDs DISPO: anticipate discharge home this AM INTERVAL EVENTS: no acute events, no new complaints, reports flatus and BMs, no prolapse. EXAM: GEN: alert and in no acute distress PULM: no e/o increased WOB ABD: soft, non-distended, incisions intact with mild bruising around umbilical incision EXT: warm and well perfused DATA: Patient Vitals for the past 8 hrs: BP Temp Temp src Pulse Resp SpO2 04/12/18 0409 118/82 36.8 ?C (98.3 ?F) Oral 65 16 93 % Intake/Output Summary (Last 24 hours) at 04/12/18 0725 Last data filed at 04/11/18 1344 Gross per 24 hour Intake 0 ml Output 800 ml Net -800 ml Recent Labs 04/12/18 0546 04/11/18 0609 04/10/18 1909 04/10/18 1652 WBC -- 12.20* -- 14.78* HB -- 12.9 -- 13.8 HCT -- 39.5 -- 40.9 PLT -- 403* -- 417* NA -- 138 -- 138 K -- 3.4* -- 3.7 CHLOR -- 102 -- 104 CO2 -- 26 -- 26 CREAT -- 0.75 -- 0.83 P 3.3 -- 3.8 -- BUN -- 8 -- 12 GLUC -- 85 -- 108* MG 1.9 -- 1.8 -- CA -- 8.1* -- 8.0* Principal Problem (Resolved): RP (rectal prolapse) Active Problems: Nicotine use disorder, F17.2 Truong Allison PGY3 General Surgery April 12, 2018 7:25 AM Normal [facility] Phosphoruson 04-12-2018 Phosphate mass conc 3.3 mg/dL Normal 2.5-4.5 [facility] Comment on above: Performed By: #### M G1, PHOS ####[address] [phone] Basic Metabolic Panlon 04-11 Anion gap molar conc 10 mmol/L Normal 9-18 [facility] Comment on above: Performed By: #### C BCDIF, BMP ####[address] [phone] Calcium mass conc 8.1 mg/dL Low 8.5-10.5 [facility] Comment on above: Performed By: #### C BCDIF, BMP ####[address] [phone] Chloride molar conc 102 mmol/L Normal 98-110 [facility] Comment on above: Performed By: #### C BCDIF, BMP ####[place] [phone] CO2 molar conc 26 mmol/L Normal 23-32 [facility] Comment on above: Performed By: #### C BCDIF, BMP ####[place] [phone] Creatinine mass conc 0.75 mg/dL Normal 0.70-1.40 [facility] Comment on above: Performed By: #### C BCDIF, BMP ####[place] [phone] eGFR- Amer. >60 Normal >[address] [facility] Comment on above: Performed By: #### C BCDIF, BMP ####[place] [phone] GFR/1.73 sq M predicted among non-blacks MDRD vol rate/area (S/P/Bld) mL/min/{1.73_m2} Normal >60 [facility] Comment on above: Performed By: #### C BCDIF, BMP ####[place] [phone] Glucose mass conc 85 mg/dL Normal 65-100 [facility] Comment on above: Performed By: #### C BCDIF, BMP ####[place] [phone] Potassium molar conc 3.4 mmol/L Low 3.5-5.0 [facility] Comment on above: Performed By: #### C BCDIF, BMP ####[place] [phone] Sodium molar conc 138 mmol/L Normal 132-148 [facility] Comment on above: Performed By: #### C BCDIF, BMP ####[place] [phone] Urea nitrogen mass conc 8 mg/dL Normal 8-25 [facility] Comment on above: Performed By: #### C GRACE, [facility] ####[facility] [place], [place] [phone] CASE MGT INIT [place] 2018 CASE MGT INIT BIB HNO ID: [id number] Author: Paty Chang (Sw) Service: Case Management Author Type: Remediation Technician Type: Care Mgt Initial Assessment Filed: 04/11/2018 2:31 PM Note Text: CARE MANAGEMENT: ASSESSMENT AND DISCHARGE PLAN SERVICE DATE: 04/11/2018 SERVICE TIME: 1:45 PRIMARY CARE PHYSICIAN: Paul Angeles MD ADMISSION STATUS: Inpatient Needs Prior to Discharge: Ready for Discharge MEDICAL: Patient/[employer] Stitcher Stated Goals: To return home to life as it was To be cured/healed Health Insurance: [employer] MEDICARE . Health Issues Impacting Discharge Plan: rectal prolapse had laparoscopic proctopexy Last Admission Date: Previous admit date: 08/28/2013 Is this Within the Past 30 days? No Advance Directive: Current Advance Directive: None [employer] Head Inspector And Adjuster Attempted to Assist with AD Completion: Yes Action: Education Provided;Other: See Comment (patient was given forms) Health Literacy: 1. How often do you need to have someone help you when you read instructions, pamphlets, or other written material from your doctor or pharmacy? Never - 1 2. How confident are you filling out medical forms by yourself? Extremely - 1 If Patient scores > 3 on either question, the following interventions were put into place: Patient did not score > 3 FUNCTIONAL AND COGNITIVE/BEHAVIORAL PRIOR TO ADMISSION: Baseline Mental Status: Alert AND Oriented, Person, Place , Time and Situation Functional Status: Independent Does Patient Currently Receive Any Community Services or Home Care? None Equipment Prior to Admission: None Has the Patient Been in a Jail Facility in the Past 30 days? No SOCIAL: Living Arrangement: Home Lives With: Alone Financial Resources: Disabled Primary Contact: Extended Emergency Contact Information Primary Emergency Contact: Zenia Hollingsworth [place] Relation: Sister Supportive: Yes Other Important Patient Contacts: None Caregiver Assessment: Caregiver is ready, willing and able to meet the patient's needs as recommended by the inter-professional team? Yes Patient's transition needs and plan for meeting these needs: NA Does the patient have an acute stroke diagnosis, or has the patient had a stroke during this admission? No Medication Adherence: I am convinced of the importance of my prescription medication: Agree completely - 0 I worry that my prescription medication will do more harm than good to me Disagree completely - 0 I feel financially burdened by my gsl-iv-vglzdd expenses for my prescription medication: Disagree completely - 0 Patient is categorized as low risk < 2 Are you interested in bedside delivery of your medications? Yes Food Concerns: In the Last Month, Have You had Trouble Getting Food? No trouble getting food During the Last Month, Have You Worried Whether Your Food Would Run Out Before You Had Enough Money to Buy More? No Is the Patient Psychosocially Complex? No ASSESSMENT AND PLAN: Medical Needs: had surgery Psychosocial Needs: None FREEDOM OF CHOICE EXPLAINED: N/A POTENTIAL TRANSITION PLANS No Services Indicated Patient is independent and lives alone. She plans to stay at her dad's when she is discharged. No skilled needs. SIGNATURE: KADIE Dickens PATIENT NAME: Paul Davenport DATE: April 11, 2018 TIME: 2:28 PM PAGER/CONTACT #: [phone] Normal [facility] CBC and Differentialon 04-11 Abs Baso <0.03 Normal <0.11 [facility] Comment on above: Performed By: #### C BCWENDIE BMP ####[phone] Abs [place] 1.04 k/uL High <0.87 [facility] Comment on above: Performed By: #### C GRACE BMP ####[place] [phone] Abs Neut 7.95 k/uL High 1.45-7.50 [facility] Comment on above: Performed By: #### C GRACE BMP ####[phone] Basophils/100 WBC (Bld) 0.0 % Normal [facility] Comment on above: Performed By: #### C GRACE BMP ####[place] [phone] DTYPE Auto Diff Normal [facility] Comment on above: Performed By: #### C BCDIF, BMP ####[place] [phone] Eosinophils #/vol (Bld) 10*3/uL Normal <0.46 [facility] Comment on above: Performed By: #### C BCDIF, BMP ####[place] [phone] Eosinophils/100 WBC (Bld) 0.2 % Normal [facility] Comment on above: Performed By: #### C BCDIF, BMP ####[place] [phone] Erythrocyte distribution width Ratio (RBC) 12.9 % Normal 11.5-15.0 [facility] Comment on above: Performed By: #### C BCDIF, BMP ####[place] [phone] Hematocrit Volume Fraction (Bld) 39.5 % Normal 36.0-46.0 [facility] Comment on above: Performed By: #### C BCDIF, BMP ####[place] [phone] Hemoglobin mass conc (Bld) 12.9 g/dL Normal 11.5-15.5 [facility] Comment on above: Performed By: #### C BCDIF, BMP ####[place] [phone] Lymphocytes #/vol (Bld) 3.19 10*3/uL Normal 1.00-4.00 [facility] Comment on above: Performed By: #### C BCDIF, BMP ####[place] [phone] Lymphocytes/100 WBC (Bld) 26.1 % Normal [facility] Comment on above: Performed By: #### C BCDIF, BMP ####[place] [phone] MCH Entitic mass (RBC) 31.1 pG Normal 26.0-34.0 [facility] Comment on above: Performed By: #### C BCDIF, BMP ####[place] [phone] MCHC mass conc (RBC) 32.7 g/dL Normal 30.5-36.0 [facility] Comment on above: Performed By: #### C BCDIF, BMP ####[place] [phone] MCV Entitic volume (RBC) 95.2 fL Normal 80.0-100.0 [facility] Comment on above: Performed By: #### C BCDIF, BMP ####[place] [phone] Monocytes/100 WBC (Bld) 8.5 % Normal [facility] Comment on above: Performed By: #### C BCDIF, BMP ####[place] [phone] Neutrophils/100 WBC (Bld) 65.2 % Normal [facility] Comment on above: Performed By: #### C BCDIF, BMP ####[place] [phone] Platelet mean volume Entitic volume (Bld) 9.9 fL Normal 9.0-12.7 [facility] Comment on above: Performed By: #### C BCDIF, BMP ####[place] [phone] Platelets #/vol (Bld) 403 10*3/uL High 150-400 [facility] Comment on above: Performed By: #### C BCDIF, BMP ####[place] [phone] RBC #/vol (Bld) 4.15 10*6/uL Normal 3.90-5.20 [facility] Comment on above: Performed By: #### C BCDIF, BMP ####[address], [place] [phone] WBC #/vol (Bld) 12.20 10*3/uL High 3.70-11.[address] [facility] Comment on above: Performed By: #### C GRACE, BMP ####[address] [phone] NURSING PROGon 04-11-2018 Protein mass conc HNO ID: [id number] Author: Luana (Rn) NORBERTO West Service: (none) Author Type: Registered Nurse Type: Nursing Progress Note Filed: 04/11/2018 1:50 AM Note Text: Nursing Progress Note Patient Name: Paul Davenport Patient Location: [place] [address] Daily Note:04/10/18 2030 - Pt alert and oriented, resting in bed. C/o 6/10 abdominal aching, given ice pack for now. Denies passing gas, BS hypoactive. Denies nausea, tolerating clear liquids without issue. Malhotra draining clear yellow urine. Lung sounds clear bilaterally, currently on 2L NC. IV fluids infusing per APR. PAS on. Bed alarm on. Will cont to monitor. 0145 - Pt ambulating hallway. Gait steady. This note was completed by: Luana West RN [facility] PROGRESSon 04-11-2018 Protein mass conc HNO ID: [id number] Author: Jose Manuel (Res) Siotos Service: Colorectal Author Type: Resident Type: Progress Notes Filed: 04/11/2018 9:23 AM Note Text: POSTOP PROGRESS NOTE SERVICE DATE: 04/11/2018 Subjective No acute events overnight Tolerated CLD well, no N/V Passing no gas or BMs Current hospital medications Medication - docusate sodium 100 mg cap(s) (COLACE)Disp: Rfl: - mineral oil 30 mL oral liquidDisp: Rfl: - NaCl 0.9% 2-10 mLDisp: Rfl: - dextroamphetamine-amphet amine 30 mg tab(s) (ADDERALL)Disp: Rfl: - pregabalin (LYRICA) cap(s) 225 mgDisp: Rfl: - ARIPiprazole 20 mg tab(s) (ABILIFY)Disp: Rfl: - albuterol 2.5 mg /3 mL (0.083 %) 2.5 mg (PROVENTIL)Disp: Rfl: - propranolol 20 mg tab(s) (INDERAL)Disp: Rfl: - pantoprazole DR 40 mg tab(s) (PROTONIX)Disp: Rfl: - FLUoxetine 60 mg cap(s) (PROzac)Disp: Rfl: - ondansetron (PF) 4 mg injection (ZOFRAN)Disp: Rfl: - acetaminophen 1,000 mg tab(s) (TYLENOL)Disp: Rfl: - diazePAM 2 mg tab(s) (VALIUM)Disp: Rfl: - HYDROmorphone 0.2 mg injection (DILAUDID)Disp: Rfl: - ketorolac 15 mg injection (TORADOL)Disp: Rfl: - [START ON 04/12/2018] ibuprofen 800 mg tab(s) (MOTRIN)Disp: Rfl: - oxyCODONE IR 5-10 mg tab(s) (ROXICODONE)Disp: Rfl: - alvimopan 12 mg cap(s) (ENTEREG)Disp: Rfl: - fluticasone-vilanterol 100-25 mcg/dose 1 Inhalation (BREO ELLIPTA)Disp: Rfl: - heparin 5,000 Units injectionDisp: Rfl: - NaCl 0.45% with 20 mEq/L KCl iv infusionDisp: Rfl: - lactobacillus rhamnosus 10 billion cell (CULTURELLE) capsuleDisp: Rfl: - lidocaine 5 % 1 Patch (LIDODERM)Disp: Rfl: - lidocaine patch - REMOVEDisp: Rfl: - lidocaine - VERIFY PATCHDisp: Rfl: Objective PHYSICAL EXAM: BP 118/84 Pulse 64 Temp (Src) 98.1 (Oral) Resp 16 Ht 5' 5 (1.65m) Wt 179 lb 14.3 oz (81.6kg) SpO2 96% BMI 29.94 kg/(m2). General: Alert and oriented, No acute distress Lungs: No increased work of breathing on RA Abdomen: Soft, non distended, mildly tender, incisions c/d/i Intake/Output Summary (Last 24 hours) at 04/11/18 0921 Last data filed at 04/11/18 0855 Gross per 24 hour Intake 3619 ml Output 3110 ml Net 509 ml Assessment/Plan Patient Active Problem List RP (rectal prolapse) Hx of migraines Rectal prolapse Risk and functional assessment LEONARD (generalized anxiety disorder) Encounter for monitoring proton pump inhibitor therapy Bicuspid aortic valve Obesity, Class I, BMI 30-34.9 Primary narcolepsy without cataplexy Fibromyalgia Migraine without aura and without status migrainosus, not intractable Raynaud's disease without gangrene Depression History of endometriosis Tobacco abuse Dysmenorrhea Vitamin B12 deficiency Bulimia Allergic rhinitis Esophageal reflux Assessment and Plan POD 1 s/p lap proctopexy. Continue post-op care - Diet GIS, dc mIVF - Pain medication available - Nausea medication available - Home meds - ISS, encourage ambulation - SCDs, DVT prophylaxis - DC malhotra - Bowel regimen: Mineral oil, colase - RNF for now, potential discharge tomorrow Jose Manuel Coe MD General Surgery, PGY-1 [facility] PT EDon 04-11-2018 PT ED HNO ID: [id number] Author: Shanon Khan Service: Nutrition Therapy Author Type: Padded Products Inspector Trimmer Type: Patient Education Filed: 04/11/2018 12:26 PM Note Text: NUTRITION PATIENT EDUCATION TOPIC: Survival Skills: Diet PATIENT NAME: Paul Davenport SERVICE DATE: April 11, 2018 Diagnosis: ADULT: rectal prolapse EXEMPTION FROM DIET EDUCATION Patient/family refusal of diet education due to receipt of previous instructions. Patient states I know what I need to do, no questions. Supplemental Material Provided to Patient: G/L for GI Soft Diet Referral (Recommendation): Nutrition - Outpatient Currently tolerating GI soft diet, continue to monitor. MNT Billing Type: Routine Care/15 min 1 unit SHANON KHAN DTR Pager: [phone] April 11, 2018 12:24 PM [facility] ANES Elias 04-10-2018 ANES POST HNO ID: [id number] Author: Royce Posadas Service: Anesthesiology Author Type: Anesthesiologist Type: Anesthesia PostOp Filed: 04/10/2018 12:53 PM Note Text: POST ANESTHESIA EVALUATION NOTE SERVICE DATE: 04/10/2018 SERVICE TIME: 12:53 PM : 1975 Vitals: 04/10/18725 Temp: 36.3 ?C (97.3 ?F) 04/10/18725 BP: 121/86 04/10/18725 Pulse: 64 04/10/18725 Resp: 16 04/10/18725 SpO2: 95% Validated Vital Signs: Yes POST ANES STATUS: No apparent anesthetic complications. The patient is appropriately hydrated with stable respiratory and cardiovascular status. Patient has safe and adequate airway control. The patient has appropriate pain relief and no significant post operative nausea or vomiting. The patient has achieved baseline mental status. Intra-Operative Events: No Significant Anesthesia Events Further assessment by Anesthesia Service: None Other Remarks: SIGNATURE: Royce Posadas MD PATIENT NAME: Paul Davenport DATE: April 10, 2018 TIME: 12:53 PM PAGER/CONTACT #: [facility] ANES PREOPon 04-10-2018 ANES PREOP HNO ID: [id number] Author: Royce Posadas Service: Anesthesiology Author Type: Anesthesiologist Type: Anesthesia PreOp Filed: 04/10/2018 8:18 AM Note Text: ANESTHESIOLOGY DAY OF SURGERY NOTE SERVICE DATE: 04/10/2018 SERVICE TIME: 8:17 AM : 1975 Procedure(s) (LRB): PROCTOPEXY LAPAROSCOPIC (N/A) Surgeon(s): Joey Pickett Estimated body mass index is 29.95 kg/m? as calculated from the following: Height as of 04/03/18: 165.1 cm (5' 5). Weight as of 04/03/18: 81.6 kg (180 lb). Most recent hematocrit and potassium results: Hematocrit 47.4 04/03/2018 Potassium 3.5 04/03/2018 ANES DOS/PREOP NOTE: Vitals: 04/10/18725 BP: 121/86 Pulse: 64 Resp: 16 Temp: 36.3 ?C (97.3 ?F) TempSrc: Temporal Artery SpO2: 95% ACTIVE PROBLEM LIST Esophageal Reflux Allergic Rhinitis Bulimia Vitamin B12 Deficiency Dysmenorrhea Tobacco Abuse History of Endometriosis Depression Raynaud's Disease Without Gangrene Fibromyalgia Migraine Without Aura and Without Status Migrainosus, Not Intractable Encounter for Monitoring Proton Pump Inhibitor Therapy Bicuspid Aortic Valve Obesity, Class I, Bmi 30-34.9 Primary Narcolepsy Without Cataplexy Leonard (Generalized Anxiety Disorder) Risk and Functional Assessment Rectal Prolapse Rp (Rectal Prolapse) Hx of Migraines PAST MEDICAL HISTORY Diagnosis Date - Allergic rhinitis, cause unspecified - Aortic valve disorders mild - Bipolar I disorder, most recent episode (or current) unspecified - Bulimia nervosa - Cervical high risk human papillomavirus (HPV) DNA test positive 03/05/09 normal pap, +hrhpv, repeat in one year - Dysmenorrhea - Endometriosis - Esophageal reflux - 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 - Insomnia, unspecified - Major depressive disorder, single episode, mild (HCC) - Migraine stable with propranolol - Nontoxic uninodular goiter - RP (rectal prolapse) ~2012 - Tobacco abuse PAST SURGICAL HISTORY Procedure Laterality Date - COLONOSCOPY 11/16/2014, 12/2017 No polyps/ severe diarrhea and prolapse - CT ABD/PELVIS WO CONTRAST PANEL 11/2004 normal - CT COR/SAG/SINUS/BRAIN/HEAD 12/2005 normal - DEBRI;CURRET,SKIN/SUBQ/M US 11/03/07 DEBRIDEMENT ULCER EXTREMITY LOWER performed by GEOFF FLOOD at [facility] - ECHO EXAM OF HEART 09/2000 bicuspid AV, minor AI, mild - EGD 01/1999 small hiatal hernia - EGD 01/2004 - EGD 02/2007 mild gastritis - EGD 11/16/2014 - HOLTER MONITOR 24 HOUR 04/2003 normal - INSERT INTRAUTERINE DEVICE 02/2015 - L'SCOPE DX W/WO BRUSHINGS/WASHINGS age 24, 26 Laparoscopy for endometriosis, cysts removed - MRI BRAIN 05/2003 normal - REMOVAL OF TONSILS,<12 Y/O Tonsillectomy - SIGMOIDOSCOPY 01/1999 normal FAMILY HISTORY Problem Relation Age of Onset - Cancer Mother lymphoma age 54 - Arthritis Mother - Arthritis Father - Cancer Maternal Grandfather - Cancer Maternal Uncle - Cancer Paternal Grandmother leukemia - Breast Cancer Other paternal cousin - Colon Cancer No Family History - Ovarian cancer No Family History - Anesthesia Problems No Family History - Blood Clots No Family History Social History: Social History Substance Use Topics - Smoking status: Current Every Day Smoker Packs/day: 0.75 Years: 20.00 Types: Cigarettes - Smokeless tobacco: Never Used Comment: trying to quit - Alcohol use Yes Comment: less than once a month/3 drinks or less No current facility-administered medications on file prior to encounter. Current Outpatient Prescriptions on File Prior to Encounter: LYRICA 225 mg capsule TAKE ONE CAPSULE BY MOUTH TWICE DAILY sucralfate (CARAFATE) 1 gram tablet TAKE 1 TABLET BY MOUTH TWICE DAILY NEEDED pantoprazole DR (PROTONIX) 40 mg tablet Take 1 tablet by mouth once daily. predniSONE (DELTASONE) 10 mg tablet 5 tab po QD x 2 days, then 4 tab po QD x 2 days, then 3 tab po QD x 2 days, then 2 tab po QD x 2 days, and 1 tab po QD x 2 days propranolol (INDERAL) 20 mg tablet Take 1 tablet by mouth twice daily. ARIPiprazole (ABILIFY) 20 mg tablet Take 20 mg by mouth once daily. SYMBICORT 80-4.5 mcg/actuation inhaler INHALE 2 PUFFS BY MOUTH TWICE DAILY DIRECTED albuterol HFA (PROAIR HFA) 90 mcg/actuation inhaler Inhale 2 Puffs as instructed every 4 hours as needed. varenicline (CHANTIX) 0.5 mg tablet Take 1 tablet by mouth twice daily. azithromycin (ZITHROMAX Z-GARETT) 250 mg tablet Take 2 tablets by mouth today, take 1 tablet by mouth on days 2-5 diclofenac sodium (VOLTAREN) 1 % topical gel Apply 2 g to affected area twice daily. To feet as needed valACYclovir (VALTREX) 1 gram tab Take 2 tab po at onset of pain and then 2 tabs 12 hours later eluxadoline (VIBERZI) 100 mg tab Take 1 tablet by mouth twice daily for 30 days. (Patient taking differently: Take 100 mg by mouth twice daily. Takes 1/2 tab as needed ) FLUoxetine 60 mg tab TK 1 T PO QD clindamycin (CLEOCIN T) 1 % gel apply to face QD amLODIPine (NORVASC) 5 mg tablet Take 1 tablet by mouth once daily. levonorgestrel (MIRENA) 20 mcg/24 hr (5 years) IUD 1 Each by INTRAUTERINE route one time only. Current Facility-Administered Medications: NaCl 0.9% 2-10 mL 2-10 mL INTRAVENOUS q 12 H Kylee Houston (Fel) 10 mL at 04/10/18 0740 cefTRIAXone iv piggyback 2 g in dextrose (iso-osmotic) 50 mL (ROCEPHIN) 2 g INTRAVENOUS Pre-Op Once Kylee (Arden) Celso metroNIDAZOLE 500 mg PREMIX piggyback (FLAGYL) 500 mg INTRAVENOUS Pre-Op Once Kylee (Arden) Celso lactated ringers infusion 30 mL/hr INTRAVENOUS CONTINUOUS Royce Posadas Allergies: ALLERGIES Allergen Reactions - Dust extreme coughing, dry hives DOS EXAM: Adequate NPO status: Yes Anesthetic risks, benefits, alternatives, personnel and consent discussed: Yes Patient agrees to proceed: Yes Previous Anesthesia: No history of adverse event. Airway Assessment: MP 2; Neck ROM: Full ROM without neurologic symptoms; Airway Evaluation: No significant abnormalities Symptoms of Sleep Apnea: None Dentition: Chipped, loose and/or missing , chip upper left side Additional Physical Exam: Lungs: Lungs clear to auscultation. Good diaphragmatic excursion. Cardiac: normal S1 and S2; no rubs, no murmurs, and no gallops Additional Pertinent Findings: N/A Blood Products: Not anticipated for this procedure. Anesthetic Plan: General, Standard ASA Monitors Pain Management Plan: Parenteral or Oral ASA Class: 2 Other Medical Problems: None Chronic Beta Zander medication administered within 24 hours: Yes I have interviewed and examined the patient. I have reviewed the medical record and/or the pre-anesthesia evaluation, pertinent labs, and test results. Significant changes in the patient's condition since the History and Physical, not otherwise documented in primary service progress notes: No This contains updated information obtained within 48 hours of Surgery/Procedure. SIGNATURE: Royce Posadas MD PATIENT NAME: Paul Davenport DATE: April 10, 2018 TIME: 8:17 AM CSN: [id number] Normal [facility] Basic Metabolic Panlon 04-10 Anion gap molar conc 8 mmol/L Low 9-18 [facility] Comment on above: Performed By: #### C LAUREN EDWARDS ####[facility] [place], [place] [phone] Calcium mass conc 8.0 mg/dL Low 8.5-10.5 [facility] Comment on above: Performed By: #### C LAUREN EDWARDS ####[place] [id number] [place], [place] [phone] Chloride molar conc 104 mmol/L Normal 98-110 [facility] Comment on above: Performed By: #### C BCDIF, BMP ####[place] [phone] CO2 molar conc 26 mmol/L Normal 23-32 [facility] Comment on above: Performed By: #### C BCDIF, BMP ####[place] [phone] Creatinine mass conc 0.83 mg/dL Normal 0.70-1.40 [facility] Comment on above: Performed By: #### C BCDIF, BMP ####[place] [phone] eGFR- Amer. >60 Normal >[address] [facility] Comment on above: Performed By: #### C BCDIF, BMP ####[place] [phone] GFR/1.73 sq M predicted among non-blacks MDRD vol rate/area (S/P/Bld) mL/min/{1.73_m2} Normal >60 [facility] Comment on above: Performed By: #### C BCDIF, BMP ####[place] [phone] Glucose mass conc 108 mg/dL High 65-100 [facility] Comment on above: Performed By: #### C BCDIF, BMP ####[place] [phone] Potassium molar conc 3.7 mmol/L Normal 3.5-5.0 [facility] Comment on above: Performed By: #### C BCDIF, BMP ####[place] [phone] Sodium molar conc 138 mmol/L Normal 132-148 [facility] Comment on above: Performed By: #### C BCDIF, BMP ####[place] [phone] Urea nitrogen mass conc 12 mg/dL Normal 8-25 [facility] Comment on above: Performed By: #### C BCDIF, BMP ####[place] [phone] CBC and Differentialon 04-10 Abs Baso <0.03 Normal <0.11 [facility] Comment on above: Performed By: #### C BCDIF, BMP #### [place] [address] Abs [place] 0.55 k/uL Normal <0.87 [facility] Comment on above: Performed By: #### C BCDIF, BMP #### [place] [address] Abs Neut 13.05 k/uL High 1.45-7.50 [facility] Comment on above: Performed By: #### C BCDIF, BMP #### [place] [address] Basophils/100 WBC (Bld) 0.1 % Normal [facility] Comment on above: Performed By: #### C BCDIF, BMP #### [place] [address] DTYPE Auto Diff Normal [facility] Comment on above: Performed By: #### C BCDIF, BMP #### [place] [address] Eosinophils #/vol (Bld) 10*3/uL Normal <0.46 [facility] Comment on above: Performed By: #### C BCDIF, BMP #### [address] Eosinophils/100 WBC (Bld) 0.0 % Normal [facility] Comment on above: Performed By: #### C BCDIF, BMP #### [place] [address] Erythrocyte distribution width Ratio (RBC) 13.1 % Normal 11.5-15.0 [facility] Comment on above: Performed By: #### C BCDIF, BMP #### [place] [phone] Hematocrit Volume Fraction (Bld) 40.9 % Normal 36.0-46.0 [facility] Comment on above: Performed By: #### C BCDIF, BMP #### [place] [phone] Hemoglobin mass conc (Bld) 13.8 g/dL Normal 11.5-15.5 [facility] Comment on above: Performed By: #### C BCDIF, BMP #### [place] [id number] Lymphocytes #/vol (Bld) 1.17 10*3/uL Normal 1.00-4.00 [facility] Comment on above: Performed By: #### C BCDIF, BMP #### [place] [phone] Lymphocytes/100 WBC (Bld) 7.9 % Normal [facility] Comment on above: Performed By: #### C BCDIF, BMP #### [place] [phone] MCH Entitic mass (RBC) 31.6 pG Normal 26.0-34.0 [facility] Comment on above: Performed By: #### C BCDIF, BMP #### [place] [phone] MCHC mass conc (RBC) 33.7 g/dL Normal 30.5-36.0 [facility] Comment on above: Performed By: #### C BCDIF, BMP #### [place] [phone] MCV Entitic volume (RBC) 93.6 fL Normal 80.0-100.0 [facility] Comment on above: Performed By: #### C BCDIF, BMP #### [address] Monocytes/100 WBC (Bld) 3.7 % Normal [facility] Comment on above: Performed By: #### C BCDIF, BMP #### [place] [phone] Neutrophils/100 WBC (Bld) 88.3 % Normal [facility] Comment on above: Performed By: #### C BCDIF, BMP #### [place] [phone] Platelet mean volume Entitic volume (Bld) 9.8 fL Normal 9.0-12.7 [facility] Comment on above: Performed By: #### C BCDIF, BMP #### [place] [phone] Platelets #/vol (Bld) 417 10*3/uL High 150-400 [facility] Comment on above: Performed By: #### C BCDIF, BMP #### [place] [phone] RBC #/vol (Bld) 4.37 10*6/uL Normal 3.90-5.20 [facility] Comment on above: Performed By: #### C BCDIF, BMP #### [place] [phone] WBC #/vol (Bld) 14.78 10*3/uL High 3.70-11.[address] [facility] Comment on above: Performed By: #### C BCDIF, BMP #### [place] [phone] HISTORY PHYSICALon 9 HISTORY PHYSICAL HNO ID: [id number] Author: Kylee Houston (Fel) Service: Colorectal Author Type: Fellow Type: HANDP Filed: 04/10/2018 8:22 AM Note Text: UPDATED HISTORY AND PHYSICAL EXAMINATION SERVICE DATE: 04/10/2018 SERVICE TIME: 8:21 AM PHYSICAL EXAM MUST BE COMPLETED ON ADMISSION The History and Physical (completed in the past 30 days) has been reviewed and the patient has been examined. The contents accurately reflect the patient's condition with the following additions or revisions since the HANDP was completed. Examination indicates no changes. This HANDP can be found in the Electronic Medical Record dated 04/03/2018. SIGNATURE: Kylee Houston MD PATIENT NAME: Paul Davenport DATE: April 10, 2018 TIME: 8:21 AM PAGER: [facility] Magnesiumon 04-10-2018 Magnesium mass conc 1.8 mg/dL Normal 1.7-2.6 [facility] Comment on above: Performed By: #### M G1, PHOS ####[facility] [place], [place] [phone] NURSING PROGon 04-10-2018 Protein mass conc HNO ID: [id number] Author: Rosemary CalderonRn) NORBERTO Dobbs Service: (none) Author Type: Registered Nurse Type: Nursing Progress Note Filed: 04/10/2018 2:11 PM Note Text: Nursing Progress Note Patient Name: Paul Davenport Patient Location: [place] [address] [address] Transfer Note: Patient transferred into room/unit PK326 in stable condition. Actions taken: No futher actions taken at this time. Will continue to monitor and check with patient. This note was completed by: Rosemary Dobbs RN [facility] Protein mass conc HNO ID: [id number] Author: Kylee CalderonRn) NORBERTO Patel Service: Nursing Author Type: Registered Nurse Type: Nursing Progress Note Filed: 04/10/2018 12:23 PM Note Text: Patient's family updated at 9:30 AM about status of procedure per Dr. Pickett pt's family updated at 1125 Patient's family updated at 12:23 PM about status of procedure per Dr. Pickett [facility] OPERATIVE NOon 04-10-2018 OPERATIVE NO HNO ID: [id number] Author: Joey Pickett Service: Colorectal Author Type: Physician Type: Operative Report Filed: 04/15/2018 10:52 AM Note Text: [facility] - Operative Report PAUL DAVENPORT : 1975 AGE: 43. SEX: F PATIENT TYPE: I HOSP SVC: CORS LOCATION: PK26 ATTENDING PHYSICIAN: Joey Pickett M.D. CSN NUMBER: [id number] DATE OF SURGERY/PROCEDURE: 04/10/2018 INCISION/PROCEDURE START TIME: 0903 hours. INCISION CLOSE/PROCEDURE END TIME: 1230 hours. PREOPERATIVE DIAGNOSIS: Full-thickness rectal prolapse. POSTOPERATIVE DIAGNOSIS: Full-thickness rectal prolapse. SURGEON: Joey Pickett M.D. OIL PIPE INSPECTOR HELPER: Dr. Kylee Houston. SURGERY/PROCEDURE: Laparoscopic rectopexy with mesh. ANESTHESIA: General ESTIMATED BLOOD LOSS: 20 mL. FINDINGS: Full-thickness rectal prolapse, redundant sigmoid, posteriorly placed polypropylene mesh. INDICATION: The patient is a 43-year-old female presented with a full-thickness rectal prolapse. We discussed with the patient proceeding with laparoscopic rectopexy with mesh. Risks of the procedure were explained. She agreed to proceed. DESCRIPTION OF PROCEDURE: The patient was taken to the operating room and placed on the OR table in lithotomy position, placed under general anesthesia. She was given preoperative antibiotics and DVT prophylaxis. Her abdomen was then prepped and draped in a normal sterile fashion. A Malhotra catheter was placed. We began with creating an incision at the umbilicus for a 10 mm port, then inserted 3 additional ports, 2 on the right and 1 on the left. We began with assessing the abdominal cavity, lifted the rectum, sigmoid colon out of the pelvis, we appreciated a very deep cul-de-sac consistent with anal prolapse. We incised the perineum along the medial side of the colon, just below the superior rectal artery and in this place we identified the retroperitoneal structures including the left ureter, which we swept off the back of the mesocolon. Then, I continued my dissection bundled down the lateral stalks and into the presacral space. We carried dissection down the lateral stalks approximately shelter down on either side into presacral space, down to the pelvic floor. Anteriorly, we incised the perineum and dissected several centimeters down on the rectovaginal septum as well in order to get it at least lift out of the pelvis. Next, I then fashioned a polypropylene mesh and placed it along the sacrum. We used a ProTack to tack it to the sacrum. Next, we lifted up the rectum up out of the pelvis and tacked it to the mesh with interrupted 0 Tycron sutures, tacking from the mesh to the lateral stalks with 2 sutures on either side. Once this was done, we irrigated the pelvis and suctioned it clear. Then we used a 3-0 Vicryl suture in a running fashion and closed the perineum on either side of the rectum to exclude the mesh from the intraabdominal cavity. Next, we used a laparoscopic suture passer to close the umbilical and 12 mm port site with 0 Vicryl. The wound was then irrigated and the abdomen desufflated. The skin was closed with 4-0 Monocryl and adhesive skin glue was used to cover the skin. The patient was then awoken from anesthesia and taken to recovery room. Joey Pickett M.D. JAT:[id number] /[id number] Normal [facility] PROGRESSon 04-10-2018 Protein mass conc HNO ID: [id number] Author: Jose Manuel Coe Service: Colorectal Author Type: Resident Type: Progress Notes Filed: 04/10/2018 4:41 PM Note Text: GENERAL SURGERY POST-OP CHECK Paul Davenport April 10, 2018 4:39 PM POD 0: Laparoscopic proctopexy ASSESSMENT/PLAN: Continue routine post-op care SUBJECTIVE: Pt denies n/v, chest pain, SOB, dizziness, UOP appropriate, denies flatus. Pain moderately managed on current regimen. OBJECTIVE: BP 127/83 Pulse 75 Temp 36.3 ?C (97.4 ?F) (Oral) Resp 16 Ht 165.1 cm (5' 5) Wt 81.6 kg (179 lb 14.3 oz) SpO2 97% BMI 29.94 kg/m? General: Resting comfortably in bed, awake, answering questions appropriately Chest: CTAB, RRR normal S1, S2 Abd: Soft, non-distended, incisions c/d/i, mildly tender over LLQ Drains: Malhotra in place Jose Manuel Coe MD April 10, 2018 [facility] Phosphoruson 04-10-2018 Phosphate mass conc 3.8 mg/dL Normal 2.5-4.5 [facility] Comment on above: Performed By: #### M DIRK Major ####[facility] [place], [place] [phone] HISTORY PHYSICALon 9 HISTORY PHYSICAL HNO ID: [id number] Author: Josef (Rn) NORBERTO Salcido Service: Anesthesiology Author Type: Registered Nurse Type: HANDP Filed: 04/04/2018 3:44 PM Note Text: PACC Nurse Progress Note History AND Physical: PACC Visit Date: 04/03 Original HANDP Date: N/A ED visit Date: N/A Outside HANDP Scanned Date: N/A Labs Within Last 6 Months: CBC: Date 04/03 BMP/CMP: Date 04/03 within normal limits Imaging Within Last 12 Months: Chest X-ray Date of test: 04/03 Result of test: No acute abnormality Cardiac Testing: EKG in last 12 Months: Yes: Date: 04/03, Comment: needs confirmed ECHO Date: 11/2017, Comment: see result Last Menstrual Period: LMP Date: unknown Postmenopausal >1yr: No, S/P Hysterectomy: No BMI Percentile (PEDS): N/A Risk Assessment: N/A Anesthesia Review: N/A Narrative: N/A Pre-op Considerations: N/A Chart Check: COMPLETED Josef Salcido RN April 04, 2018 3:37 PM [facility] HOSPon 03-21-2018 HOSP Patient:Alcira Davenport MRN: Height:5' 5(1.651 m) Weight:180 lb (81.647 kg) Outpatient Medications as of 04/10/18: FLUoxetine (PROZAC) 20 mg capsule doxycycline monohydrate (MONODOX) 100 mg capsule predniSONE (DELTASONE) 10 mg tablet LORazepam (ATIVAN) 0.5 mg tab LORazepam (ATIVAN) 1 mg tablet Amphetamine-Dextroamphet amine (ADDERALL) 30 mg tablet LYRICA 225 mg capsule sucralfate (CARAFATE) 1 gram tablet SYMBICORT 80-4.5 mcg/actuation inhaler albuterol HFA (PROAIR HFA) 90 mcg/actuation inhaler varenicline (CHANTIX) 0.[address] (PROTONIX) 40 mg tablet azithromycin (ZITHROMAX Z-GARETT) 250 mg tablet predniSONE (DELTASONE) 10 mg tablet diclofenac sodium (VOLTAREN) 1 % topical gel valACYclovir (VALTREX) 1 gram tab eluxadoline (VIBERZI) 100 mg tab propranolol (INDERAL) 20 mg tablet FLUoxetine 60 mg tab ARIPiprazole (ABILIFY) 20 mg tablet clindamycin (CLEOCIN T) 1 % gel amLODIPine (NORVASC) 5 mg tablet levonorgestrel (MIRENA) 20 mcg/24 hr (5 years) IUD Admission/Clinic Administered Medications as of 04/10/18: NaCl 0.9% 2-10 mL cefTRIAXone iv piggyback 2 g in dextrose (iso-osmotic) 50 mL (ROCEPHIN) metroNIDAZOLE 500 mg PREMIX piggyback (FLAGYL) lactated ringers infusion Problem List: Esophageal reflux [K21.9] Allergic rhinitis [J30.9] Bulimia [F50.2] Vitamin B12 deficiency [E53.8] Dysmenorrhea [N94.6] Tobacco abuse [Z72.0] History of endometriosis [Z87.42] Depression [F32.9] Raynaud's disease without gangrene [I73.00] Fibromyalgia [M79.7] Migraine without aura and without status migrainosus, not intractable [G43.009] Encounter for monitoring proton pump inhibitor therapy [Z51.81, Z79.899] Bicuspid aortic valve [Q23.1] Obesity, Class I, BMI 30-34.9 [E66.9] 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] LEONARD (generalized anxiety disorder) [F41.1] Risk and functional assessment [Z13.9] Rectal prolapse [K62.3] RP (rectal prolapse) [K62.3] Hx of migraines [Z86.69] Allergies: Dust Date Verified: 04/10/18 Lab Values Lab Value Units Date High Low POTA* 3.5 mmol/L 04/03/2018 4.5 3.4 JAN* 47.4 % 04/03/2018 46.0 36.0 Progress Notes ([facility]): Paul Angeles MD 04/02/2018 11:37 AM Signed SUBJECTIVE: Paul Davenport is an 42 year old female who presents with an illness characterized by positive for 2 day history of chest congestion, wheezing, cough- occasionally productive of mucus, but mostly dry + chills, no fevers Body aches Sinus congestion and headache. Hx of asthma Not using inhalers regularly symbicort 80 and albuterol. + tobacco Current Outpatient Prescriptions on File Prior to Visit: LORazepam (ATIVAN) 0.5 mg tab Take 2-4 tablets by mouth at bedtime as needed for up to 30 days. Amphetamine-Dextroamphet amine (ADDERALL) 30 mg tablet Take 1 tablet by mouth twice daily for 30 days.Earliest Fill Date: 03/25/18 LYRICA 225 mg capsule TAKE ONE CAPSULE BY MOUTH TWICE DAILY sucralfate (CARAFATE) 1 gram tablet TAKE 1 TABLET BY MOUTH TWICE DAILY NEEDED SYMBICORT 80-4.5 mcg/actuation inhaler INHALE 2 PUFFS BY MOUTH TWICE DAILY DIRECTED albuterol HFA (PROAIR HFA) 90 mcg/actuation inhaler Inhale 2 Puffs as instructed every 4 hours as needed. pantoprazole DR (PROTONIX) 40 mg tablet Take 1 tablet by mouth once daily. valACYclovir (VALTREX) 1 gram tab Take 2 tab po at onset of pain and then 2 tabs 12 hours later propranolol (INDERAL) 20 mg tablet Take 1 tablet by mouth twice daily. FLUoxetine 60 mg tab TK 1 T PO QD ARIPiprazole (ABILIFY) 20 mg tablet Take 20 mg by mouth once daily. clindamycin (CLEOCIN T) 1 % gel apply to face QD levonorgestrel (MIRENA) 20 mcg/24 hr (5 years) IUD 1 Each by INTRAUTERINE route one time only. LORazepam (ATIVAN) 1 mg tablet Take 1-2 tablets by mouth at bedtime as needed for up to 14 days. varenicline (CHANTIX) 0.5 mg tablet Take 1 tablet by mouth twice daily. azithromycin (ZITHROMAX Z-GARETT) 250 mg tablet Take 2 tablets by mouth today, take 1 tablet by mouth on days 2-5 predniSONE (DELTASONE) 10 mg tablet 5 tab po QD x 2 days, then 4 tab po QD x 2 days, then 3 tab po QD x 2 days, then 2 tab po QD x 2 days, and 1 tab po QD x 2 days diclofenac sodium (VOLTAREN) 1 % topical gel Apply 2 g to affected area twice daily. To feet as needed eluxadoline (VIBERZI) 100 mg tab Take 1 tablet by mouth twice daily for 30 days. (Patient taking differently: Take 100 mg by mouth twice daily. Takes 1/2 tab as needed ) amLODIPine (NORVASC) 5 mg tablet Take 1 tablet by mouth once daily. No current facility-administered medications on file prior to visit. ALLERGIES Allergen Reactions - Dust extreme coughing, dry hives Social History Marital status: Single Spouse name: Years of education: Number of children: Social History Main Topics Smoking status: Current Every Day Smoker Packs/day: 0.50 Years: 13.00 Types: Cigarettes Smokeless tobacco: Never Used Comment: trying to quit Alcohol use: Yes Comment: less than once a month/3 drinks or less Drug use: No Sexual activity: Not Currently Partners with: Male control/protection: IUD BP 110/92 Pulse 111 Temp (!) 35.9 ?C (96.7 ?F) (Temporal Artery) Resp 20 Ht 165.1 cm (5' 5) Wt 84.4 kg (186 lb) SpO2 94% BMI 30.95 kg/m? Physical Exam Constitutional: She appears well-developed and well-nourished. No distress. HENT: Right Ear: Tympanic membrane, external ear and ear canal normal. Left Ear: Tympanic membrane, external ear and ear canal normal. Nose: Mucosal edema and rhinorrhea present. Mouth/Throat: Mucous membranes are normal. Posterior oropharyngeal erythema present. No oropharyngeal exudate or posterior oropharyngeal edema. No tonsillar exudate. Eyes: Conjunctivae are normal. Neck: Neck supple. Cardiovascular: Normal rate, regular rhythm and normal heart sounds. Pulmonary/Chest: Effort normal. No respiratory distress. She has wheezes (throughout). She has no rales. Lymphadenopathy: She has no cervical adenopathy. Skin: No rash noted. She is not diaphoretic. ASSESSMENT/PLAN: 1. Bronchitis with bronchospasm - ICD9: 490, ICD10: J20.9 Doxycycline Prednisone taper over 10 days Stressed importance of compliance with inhalers Maintenance- symbicort Albuterol regularly while symptomatic Rapid Flu- negative in office. Follow-up persistent or worsening symptoms - DOXYCYCLINE MONOHYDRATE 100 MG CAPSULE - PREDNISONE 10 MG TABLET MD Paul Dominguez MD 04/01/2018 8:04 PM Signed SYMBICORT 2 PUFFS 2X DAY -- RINSE MOUTH OUT ALBUTEROL 2 PUFFS EVERY 4-6 HOURS PREDNISONE- TAPER OVER 10 DAYS Progress Notes ([facility]): Lilly Sanchez Ma 03/27/2018 10:02 AM Signed Pharmacy requesting refills as follows: Requesting 30-Day supply. [facility] Pending Prescriptions Disp Refills LORAZEPAM 1 MG TABLET 30 tablet 0 Sig: Take 1-2 tablets by mouth at bedtime as needed for up to 14 days. ALBER Class: C-IV HOMA: No Please review and advise. Lilly Angeles MD 03/27/2018 5:11 PM Signed Patient's request for medication is as follows Signed Prescriptions Disp Refills LORazepam (ATIVAN) 1 mg tablet 30 tablet 0 Sig: Take 1-2 tablets by mouth at bedtime as needed for up to 14 days. ALBER Class: C-IV HOMA: No Authorizing Provider: PAUL COLEMAN Order entered - please phone pharmacy and notify patient. Did we not call this in 03/25? Pharm called and said 1 mg was on back order and was to substitute 0.5 mg tab MD Mikki Dominguez Windows Support Engineer 03/27/2018 5:48 PM Signed Called [facility] 1 mg Ativan was called in But states that they never received a response back that the 0.5 mg substitution was okay to fill Please advise if 0.5 mg okay, if okay please re-send to pharmacy Please advise Mikki Carrasquillo Windows Support Engineer Paul Angeles MD 03/28/2018 6:16 AM Signed Patient's request for medication is as follows Signed Prescriptions Disp Refills LORazepam (ATIVAN) 1 mg tablet 30 tablet 0 Sig: Take 1-2 tablets by mouth at bedtime as needed for up to 14 days. ALBER Class: C-IV HOMA: No Authorizing Provider: PAUL COLEMAN LORazepam (ATIVAN) 0.5 mg tab 60 tablet 0 Sig: Take 2-4 tablets by mouth at bedtime as needed for up to 30 days. ALBER Class: C-IV Authorizing Provider: PAUL COLEMAN Order entered - please phone pharmacy and notify patient. Since out of the 1 mg- can substitute the 0.5 mg tab instead MD Baylee Dominguez Ma 03/28/2018 9:57 AM Signed Called [facility]- Pharmacy filling the 0.5mg tabs Left message notifying Pt Baylee Garcia Ma [facility] Established Visit (Gastroent erology)on 12-18-2017 Established Visit (Gastroenterology) Chief ComplaintFollow up History of Present IllnessThis is a 42yo woman with a history of depression, anxiety, fibromyalgia and chronic diarrhea who presents for follow-up. She recently saw me and underwent an extensive serologic and stool study workup. Results of these tests were generally unremarkable with the exception of a mildly positive stool reducing substances. In review the patient, she frequently eats cheese and does have some other dairy intake such as milk with her cereal as well as yogurt. She has never tried to eliminate dairy from her diet. Otherwise, her symptoms remain unchanged since her last office visit. She does use Imodium as needed, however has to take several pills for it to be effective. She inquires about pursuing endoscopic evaluation given her otherwise unremarkable evaluation Review of SystemsComplete 14 point review of systems as per history of present illness, otherwise negative. Active Problems Bloating (787.3) (R14.0) 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) Allergies No Known Drug Allergies Recorded By: Jaspreet Early; 11/15/2017 4:24:43 PM Current Meds ARIPiprazole 20 MG Oral Tablet;Therapy: [id number] to Recorded Rx By: SORAYA; Dispense: 30 Days ; #:30 TABS; Refill: 0; HOMA = N; Record; Last Updated By: Lizy Simeon; 11/15/2017 4:08:33 PM FLUoxetine HCl - 60 MG Oral Tablet;Therapy: 30Apr2017 to Recorded Rx By: ANTON; Dispense: 30 Days ; #:30 TABS; Refill: 0; HOMA = N; Record; Last Updated By: Lizy Simeon; 11/15/2017 4:08:34 PM Lyrica 225 MG Oral Capsule;Therapy: 28Feb2017 to Recorded Rx By: FE; Dispense: 30 Days ; #:60 CAPS; Refill: 0; HOMA = N; Record; Last Updated By: Lizy Simeon; 11/15/2017 4:08:33 PM Pantoprazole Sodium 40 MG Oral Tablet Delayed Release;Therapy: 30Apr2017 to Recorded Rx By: FE; Dispense: 30 Days ; #:60 TBEC; Refill: 0; HOMA = N; Record; Last Updated By: Lizy Simeon; 11/15/2017 4:08:34 PM Propranolol HCl - 20 MG Oral Tablet;Therapy: 17May2017 to Recorded Rx By: ; Dispense: 30 Days ; #:60 TABS; Refill: 0; HOMA = N; Record; Last Updated By: Lizy Simeon; 11/15/2017 4:08:33 PM Vitals Vital Signs Recorded: 17Dec2017 02:52PMHeart Tvlq30Akcswiygpzy59Ryakc tib318, RUE, KpgeybxJgiqcmtqc55, RUE, SittingBlood Pressure Cuff SizeLargeHeight5 ft 5 kpMosoan034 lb 2 ozBMI Rttibfgpoq77.97BSA Calculated1.94O2 Hvrlnvrasv29, RAPain Scale0 Physical ExamGen: AANDOx3, NADEyes: no scleral icterusENT: OP clearCV: RRR no m/r/gResp: CTAB no w/r/rAbd: Soft, NT, ND, normoactive BSExt: WWP, no edemaPsych: appropriate mood and affect Diagnoses/Problems Gastroesophageal reflux disease, esophagitis presence not specified (530.81) (K21.9) 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) OrdersChronic diarrhea of unknown origin Colonoscopy; Status:Hold For - Scheduling; Requested for:17Dec2017; Perform:[facility]; Order Comments:EGD and colonoscopy with MAC; Due:17Mar2018;Ordered; For:Chronic diarrhea of unknown origin; Ordered By:Jaspreet Early;GI Mental Competence : Yes-pt mentally competent to provide consentIndications : Chronic diarrhea (> 1 mo)Gastroesophageal reflux disease, esophagitis presence not specified Endoscopy - Upper GI; Status:Hold For - Scheduling; Requested for:17Dec2017; Perform:[facility]; Order Comments:EGD and colonoscopy with MAC; Due:17Mar2018;Ordered; For:Gastroesophageal reflux disease, esophagitis presence not specified; Ordered By:Jaspreet Early;GI Mental Competence : Yes-pt mentally competent to provide consentEGD/Sigmoid Indications : Gastroesophageal Reflux Provider Latia is a 42yo woman with a history of depression, anxiety, fibromyalgia and chronic diarrhea who presents for follow-up. The etiology of her chronic diarrhea remains unclear at this point. Workup thus far has demonstrated a mildly elevated stool reducing substances. She does note a correlation with significant stress and the unfortunate passing of her mother, however her diarrhea has not improved over time. It is occasionally associated with nocturnal symptoms as well as incontinence. She has not had any improvement in her symptoms with empiric Viberzi for possible IBS-D, she has since stopped this without any change in her diarrhea.Problem List:1. Chronic diarrhea2. Bloating3. Mildly elevated stool reducing substancesRecommendation s:We discussed pursing EGD and colonoscopy for further evaluation of her symptoms, including the risks benefits and alternatives, and she is agreeable. We will plan to schedule this with MAC. We also discussed a trial of complete dairy elimination for the next 2 weeks. Additionally, may consider H2 breath testing to evaluate for SIBO in the future. She will follow up in 2 months or sooner if needed. Patient Discussion/Summary1. Schedule EGD and colonoscopy2. Eliminate dairy from your diet for the next 2 weeks and monitor symptoms3. Return to clinic in 2 months. End of Encounter MedsARIPiprazole 20 MG Oral Tablet;Therapy: [id number] to RecordedFLUoxetine HCl - 60 MG Oral Tablet;Therapy: 30Apr2017 to RecordedLyrica 225 MG Oral Capsule;Therapy: 28Feb2017 to RecordedPantoprazole Sodium 40 MG Oral Tablet Delayed Release;Therapy: 30Apr2017 to RecordedPropranolol HCl - 20 MG Oral Tablet;Therapy: 17May2017 to Recorded Signatures Electronically signed by : Japsreet Early MD,; Dec 18 2017 8:03AM EST (Author) [facility] Initial Visit (Gastroenterol ogy)on 12-17-2017 Initial Visit (Gastroenterology) No report was sent Normal [facility] Reducing Substances, Stoolon 12-07-2017 Reducing Substances, Stool 1+(0.5 g/dL) Abnormal Negative [facility] Comment on above: Order Comment: If yo u do not want test(STLPP)PCR panel to beperformed on this sample please [phone], select option 4 addon lineand request that the STLPP test be cancelledand a (STLC)stool culture be performed at thereference laboratory. Result Comment: Perf orming Site: [facility] - [address] [place] [address] Performed By: #### C BC, CMP12, CRP, TSH, IGA, TGLIGA, TGLIGG ####[facility] [place] [address] Calprotectin, Fecalon 2017 Protein mass conc 30 ug/g Normal <=50 [facility] Comment on above: Order Comment: If yo u do not want test(STLPP)PCR panel to beperformed on this sample please [phone], select option 4 addon lineand request that the STLPP test be cancelledand a (STLC)stool culture be performed at thereference laboratory. Result Comment: Sarbjit tional testing, CALPRO (Test Name), requested on a previouslysubmitted specimen. Repeated temperature fluctuations mayadversely affect the validity of results for some assays.Interpretation of the results for this assay should take thispotential into consideration.INTERPRETIVE INFORMATION: Calprotectin, Fecal50 ug/g or less: Acfxqx46-516 ug/g: Borderline elevated, test should tatiana-evaluated in 4-6 weeks.121 ug/g or greater: AbnormalPerformed by [facility],[address] [place] [address] zwp.[facility], Nacho Trivedi MD - Lab. DirectorPerforming Site: [facility] - [address] [place] [address] Performed By: #### C BC, CMP12, CRP, TSH, IGA, TGLIGA, TGLIGG ####[facility] [place] [address] Ova and Parasite Screen.on Cryptosporidium Antigen Negative Normal [facility] Comment on above: Order Comment: If yo u do not want test(STLPP)PCR panel to beperformed on this sample please [phone], select option 4 addon lineand request that the STLPP test be cancelledand a (STLC)stool culture be performed at thereference laboratory. Result Comment: Perf orming Site: [facility], [address] [place] [address] Performed By: #### C DPCR, GIACR, STLPP, CALPRO, STRED, MISCB ####[address] [address] Giardia Antigen Negative Normal [facility] Comment on above: Order Comment: If yo u do not want test(STLPP)PCR panel to beperformed on this sample please [phone], select option 4 addon lineand request that the STLPP test be cancelledand a (STLC)stool culture be performed at thereference laboratory. Result Comment: [facility] Site: [facility], [address] [place], [place] [address] Performed By: #### C DPCR, GIACR, STLPP, CALPRO, STRED, MISCB ####[address] [address] Tranglutaminase IgGon 2017 Tranglutaminase IgG <1 Normal 0-14 [facility] Comment on above: Result Comment: Fals e negative Tissue Transglutaminase Antibody, IgGresults can occur in patients already adhering to agluten-free diet. Tissue Transglutaminase Antibody,IgA is the preferred test for screening patients withsuspected Celiac Disease.Performing Site: [facility] [id number] [place] [address] Performed By: #### C BC, CMP12, CRP, TSH, IGA, TGLIGA, TGLIGG ####[address] [address] Transglutaminae IgAon 2017 Transglutaminae IgA <1 Normal 0-14 [facility] Comment on above: Result Comment: Sheri ac disease is unlikely. False negative TissueTransglutaminase Antibody, IgA results can occur inapproximately 10% of patients with celiac disease,patients already adhering to a gluten-free diet, orpatients with IgA deficiency.Performing Site: [place] [address] [place] [address] Performed By: #### C BC, CMP12, CRP, TSH, IGA, TGLIGA, TGLIGG ####[facility] [place], [place] [id number] Stool Pathogens PCRon 2017 Campylobacter Gp. NOT DETECTED Normal [facility] Comment on above: Order Comment: If yo u do not want test(STLPP)PCR panel to beperformed on this sample please [phone], select option 4 addon lineand request that the STLPP test be cancelledand a (STLC)stool culture be performed at thereference laboratory. Performed By: #### C DPCR, GIACR, STLPP, CALPRO, STRED, MISCB ####[address] [id number] Norovirus GI/GII NOT DETECTED Normal [facility] Comment on above: Order Comment: If yo u do not want test(STLPP)PCR panel to beperformed on this sample please [phone], select option 4 addon lineand request that the STLPP test be cancelledand a (STLC)stool culture be performed at thereference laboratory. Performed By: #### C DPCR, GIACR, STLPP, CALPRO, STRED, MISCB ####[facility] [place] [address] [id number] Rotavirus A NOT DETECTED Normal [facility] Comment on above: Order Comment: If yo u do not want test(STLPP)PCR panel to beperformed on this sample please [phone], select option 4 addon lineand request that the STLPP test be cancelledand a (STLC)stool culture be performed at thereference laboratory. Result Comment: The enteric PCR panel is a panel of sensitive and specificamplified nucleic acid tests indicated as an aid in thediagnosis of specific bacterial and viral agents ofgastrointestinal illness, in conjunction with otherclinical, laboratory, and epidemiological information.This test is not approved for monitoring these infections.Monitoring is available for Salmonella and Shigellainfections-request test Stool PCR Follow-Up (STLPF).Monitoring tests are not available at this time for otherenteric agents in this panel.Performing Site: [place] [address] [place] [address] Performed By: #### C DPCR, GIACR, STLPP, CALPRO, STRED, MISCB ####[address] [id number] Salmonella Sp. NOT DETECTED [facility] on above: Order Comment: If yo u do not want test(STLPP)PCR panel to beperformed on this sample please [phone], select option 4 addon lineand request that the STLPP test be cancelledand a (STLC)stool culture be performed at thereference laboratory. Performed By: #### C DPCR, GIACR, STLPP, CALPRO, STRED, MISCB ####[address] [id number] Shiga Toxin 1 NOT DETECTED Normal [facility] Comment on above: Order Comment: If yo u do not want test(STLPP)PCR panel to beperformed on this sample please [phone], select option 4 addon lineand request that the STLPP test be cancelledand a (STLC)stool culture be performed at thereference laboratory. Performed By: #### C DPCR, GIACR, STLPP, CALPRO, STRED, MISCB ####[address] [id number] Shiga Toxin 2 NOT DETECTED Normal [facility] Comment on above: Order Comment: If yo u do not want test(STLPP)PCR panel to beperformed on this sample please [phone], select option 4 addon lineand request that the STLPP test be cancelledand a (STLC)stool culture be performed at thereference laboratory. Performed By: #### C DPCR, GIACR, STLPP, CALPRO, STRED, MISCB ####[facility] [place] [address] Shigella Sp. NOT DETECTED Normal [facility] Comment on above: Order Comment: If yo u do not want test(STLPP)PCR panel to beperformed on this sample please [phone], select option 4 addon lineand request that the STLPP test be cancelledand a (STLC)stool culture be performed at thereference laboratory. Performed By: #### C DPCR, GIACR, STLPP, CALPRO, STRED, MISCB ####[address] [address] [employer] NOT DETECTED [facility] Comment [facility]: Order Comment: If yo u do not want test(STLPP)PCR panel to beperformed on this sample please [phone], select option 4 addon lineand request that the STLPP test be cancelledand a (STLC)stool culture be performed at thereference laboratory. Performed By: #### C DPCR, GIACR, STLPP, CALPRO, STRED, MISCB ####[facility] [place] [address] Yersina Enterocolitica NOT DETECTED Normal [facility] Comment on above: Order Comment: If yo u do not want test(STLPP)PCR panel to beperformed on this sample please [phone], select option 4 addon lineand request that the STLPP test be cancelledand a (STLC)stool culture be performed at thereference laboratory. Performed By: #### C DPCR, GIACR, STLPP, CALPRO, STRED, MISCB ####[facility] [place] [address] C diff DNA Amplification Ass wade 11-17-2017 C diff DNA Amplification Assay NOT DETECTED Normal NotDetected [facility] Comment on above: Order Comment: If yo u do not want test(STLPP)PCR panel to beperformed on this sample please [phone], select option 4 addon lineand request that the STLPP test be cancelledand a (STLC)stool culture be performed at thereference laboratory. Result Comment: This assay detects the presence of the tcdB (toxin B)gene via DNA amplification, and results should beinterpreted in the context of the patients historyand clinical findings. This test cannot be performedon formed stools or used as a test of cure, and shouldnot be performed more than once per 7 days.Performing Site: [facility] - [address] [place] [address] Performed By: #### C DPCR, GIACR, STLPP, CALPRO, STRED, MISCB ####[facility] [place] [address] Immunoglobulin Aon 8 Immunoglobulin A 240 mg/dL Normal 70-400 [facility] Comment on above: Result Comment: MONO CLONAL PROTEINS MAY CAUSE FALSELY LOWRESULTS IN THIS ASSAY. SERUM PROTEINELECTROPHORESIS SHOULD BE DONE THEFIRST TEST TO EVALUATE MONOCLONAL GAMMOPATHY.Performing Site: [facility] - [address] [place] [address] Performed By: #### C BC, CMP12, CRP, TSH, IGA, TGLIGA, TGLIGG ####[facility] [place] [address] Miscellaneous Teston 018 Result Normal [facility] Comment on above: Order Comment: No sp ecimen received.[facility]:-code:ELCST electrolyte panel,stool Performed By: #### C BC, CMP12, CRP, TSH, IGA, TGLIGA, TGLIGG ####[address] [address] Test Name Normal [facility] Comment on above: Order Comment: No sp ecimen received.MIS:-code:ELCST electrolyte panel,stool Performed By: #### C BC, CMP12, CRP, TSH, IGA, TGLIGA, TGLIGG ####[place] [id number] C-Reactive Proteinon 018 CRP mass conc 0.4 mg/dL Normal <1.0 [facility] Comment on above: Result Comment: Juwan veronica note new reference range and units of measureeffective July 10, 2017. Performed By: #### C BC, CMP12, CRP, TSH, IGA, TGLIGA, TGLIGG ####[place] [id number] Complete Blood Count w/diff $$on 11-15-2017 Basophils Auto #/vol (Bld) 0.0 10 /uL Low 0.04-0.9 [facility] Comment on above: Performed By: #### C BC, CMP12, CRP, TSH, IGA, TGLIGA, TGLIGG ####[address] [address] Basophils/100 WBC Auto (Bld) 0 % Normal 0-1 [facility] Comment on above: Performed By: #### C BC, CMP12, CRP, TSH, IGA, TGLIGA, TGLIGG ####[address] [address] Eosinophils Auto #/vol (Bld) 0.0 10 3/uL Low 0.03-0.6 [facility] Comment on above: Performed By: #### C BC, CMP12, CRP, TSH, IGA, TGLIGA, TGLIGG ####[address] [address] Eosinophils/100 WBC Auto (Bld) 0 % Normal 0-3 [facility] Comment on above: Performed By: #### C BC, CMP12, CRP, TSH, IGA, TGLIGA, TGLIGG ####[address] [address] Erythrocyte distribution width Auto Ratio (RBC) 12.7 % Normal 11.5-14.5 [facility] Comment on above: Performed By: #### C BC, CMP12, CRP, TSH, IGA, TGLIGA, TGLIGG ####[address] [address] Hematocrit Auto Volume Fraction (Bld) 44.7 % Normal 35-47 [facility] Comment on above: Performed By: #### C BC, CMP12, CRP, TSH, IGA, TGLIGA, TGLIGG ####[address] [address] Hemoglobin mass conc (Bld) 15.1 g/dL Normal 12.0-16.0 [facility] Comment on above: Performed By: #### C BC, CMP12, CRP, TSH, IGA, TGLIGA, TGLIGG ####[address] [address] Immature Gran# (Auto) 0.1 10 3/uL Normal [facility] Comment on above: Performed By: #### C BC, CMP12, CRP, TSH, IGA, TGLIGA, TGLIGG ####[address] [address] Immature granulocytes #/vol (Bld) 0.7 % Normal 0.0-0.9 [facility] Comment on above: Performed By: #### C BC, CMP12, CRP, TSH, IGA, TGLIGA, TGLIGG ####[address] [address] Lymphocytes Auto #/vol (Bld) 1.5 10 3/uL Normal 1-3.5 [facility] Comment on above: Performed By: #### C BC, CMP12, CRP, TSH, IGA, TGLIGA, TGLIGG ####[address] [address] Lymphocytes/100 WBC Auto (Bld) 9 % Low 24-44 [facility] Comment on above: Performed By: #### C BC, CMP12, CRP, TSH, IGA, TGLIGA, TGLIGG ####[address] [address] MCH Auto Entitic mass (RBC) 31.9 pg Normal 27-34 [facility] Comment on above: Performed By: #### C BC, CMP12, CRP, TSH, IGA, TGLIGA, TGLIGG ####[address] [address] MCH Auto Entitic mass (RBC) 33.8 g/dL Normal 33-37 [facility] Comment on above: Performed By: #### C BC, CMP12, CRP, TSH, IGA, TGLIGA, TGLIGG ####[address] [address] MCV Auto Entitic volume (RBC) 94.5 fL Normal 80-100 [facility] Comment on above: Performed By: #### C BC, CMP12, CRP, TSH, IGA, TGLIGA, TGLIGG ####[address] [address] Monocytes Auto #/vol (Bld) 0.5 10 3/uL Normal 0.04-0.9 [facility] Comment on above: Performed By: #### C BC, CMP12, CRP, TSH, IGA, TGLIGA, TGLIGG ####[address] [address] Monocytes/100 WBC Auto (Bld) 3 % Normal 1-8 [facility] Comment on above: Performed By: #### C BC, CMP12, CRP, TSH, IGA, TGLIGA, TGLIGG ####[address] [address] Neutrophils Auto #/vol (Bld) 15.4 10 3/uL High 1.8-7.0 [facility] Comment on above: Performed By: #### C BC, CMP12, CRP, TSH, IGA, TGLIGA, TGLIGG ####[address] [address] Neutrophils/100 WBC Auto (Bld) 88 % High 42-76 [facility] Comment on above: Performed By: #### C BC, CMP12, CRP, TSH, IGA, TGLIGA, TGLIGG ####[address] [address] Nucleated RBC/100 WBC Ratio (Bld) 0.0 % Normal 0.0-0.0 [facility] Comment on above: Performed By: #### C BC, CMP12, CRP, TSH, IGA, TGLIGA, TGLIGG ####[address] [address] Platelet mean volume Auto Entitic volume (Bld) 10.1 fL Normal 7.4-10.4 [facility] Comment on above: Performed By: #### C BC, CMP12, CRP, TSH, IGA, TGLIGA, TGLIGG ####[address] [address] Platelets Auto #/vol (Bld) 433 10 3/uL High 150-400 [facility] Comment on above: Performed By: #### C BC, CMP12, CRP, TSH, IGA, TGLIGA, TGLIGG ####[address] [address] RBC Auto #/vol (Bld) 4.73 10 6/uL Normal 4.2-5.4 [facility] Comment on above: Performed By: #### C BC, CMP12, CRP, TSH, IGA, TGLIGA, TGLIGG ####[facility] [place] [address] WBC Auto #/vol (Bld) 17.5 10 3/uL High 4.0-11.0 [facility] Comment on above: Performed By: #### C BC, CMP12, CRP, TSH, IGA, TGLIGA, TGLIGG ####[address] [address] Comprehensive Metabolic Pane kong 11-15-2017 Albumin mass conc 4.1 g/dL Normal 3.4-5.0 [facility] Comment on above: Performed By: #### C BC, CMP12, CRP, TSH, IGA, TGLIGA, TGLIGG ####[address] [address] ALP enzyme act/vol 81 U/L Normal 33-110 [facility] Comment on above: Result Comment: Plea se note new reference range as of June. Performed By: #### C BC, CMP12, CRP, TSH, IGA, TGLIGA, TGLIGG ####[address] [address] ALT enzyme act/vol 16 U/L Normal 4-45 [facility] Comment on above: Result Comment: Plea se note new reference range as of June. Performed By: #### C BC, CMP12, CRP, TSH, IGA, TGLIGA, TGLIGG ####[address] [address] Anion gap 3 molar conc 15.7 mmol/L Normal 10-20 [facility] Comment on above: Performed By: #### C BC, CMP12, CRP, TSH, IGA, TGLIGA, TGLIGG ####[facility] [place] [address] AST enzyme act/vol 13 U/L Normal 9-39 [facility] Comment on above: Result Comment: Juwan veronica note new reference range as of June. Performed By: #### C BC, CMP12, CRP, TSH, IGA, TGLIGA, TGLIGG ####[address] [address] Bilirubin Ql (U) 0.3 mg/dL Normal 0.0-1.2 [facility] Comment on above: Performed By: #### C BC, CMP12, CRP, TSH, IGA, TGLIGA, TGLIGG ####[address] [address] Calcium mass conc 8.9 mg/dL Normal 8.6-10.3 [facility] Comment on above: Result Comment: Juwan veronica note new reference range as of June. Performed By: #### C BC, CMP12, CRP, TSH, IGA, TGLIGA, TGLIGG ####[address] [address] Chloride molar conc 105 mmol/L Normal 98-107 [facility] Comment on above: Performed By: #### C BC, CMP12, CRP, TSH, IGA, TGLIGA, TGLIGG ####[address] [address] CO2 molar conc 22 mmol/L Normal 21-32 [facility] Comment on above: Performed By: #### C BC, CMP12, CRP, TSH, IGA, TGLIGA, TGLIGG ####[address] [address] Creatinine mass conc 0.82 mg/dL Normal 0.50-1.05 [facility] Comment on above: Result Comment: Juwan veronica note new reference range as of June. Performed By: #### C BC, CMP12, CRP, TSH, IGA, TGLIGA, TGLIGG ####[address] [place] [address] GFR () >60 Normal [facility] Comment on above: Performed By: #### C BC, CMP12, CRP, TSH, IGA, TGLIGA, TGLIGG ####[address] [address] GFR (Non ) >60 Normal [facility] Comment on above: Result Comment: eGFR Units of measure: mL/min/1.73 m 2 Performed By: #### C BC, CMP12, CRP, TSH, IGA, TGLIGA, TGLIGG ####[address] [address] Glucose mass conc 96 mg/dL Normal 74-99 [facility] Comment on above: Performed By: #### C BC, CMP12, CRP, TSH, IGA, TGLIGA, TGLIGG ####[address] [address] Potassium molar conc 4.7 mmol/L Normal 3.5-5.3 [facility] Comment on above: Performed By: #### C BC, CMP12, CRP, TSH, IGA, TGLIGA, TGLIGG ####[address] [address] Protein mass conc 7.0 g/dL Normal 6.4-8.2 [facility] Comment on above: Performed By: #### C BC, CMP12, CRP, TSH, IGA, TGLIGA, TGLIGG ####[address] [address] [address] Sodium molar conc 138 mmol/L Normal 136-145 [facility] Comment on above: Performed By: #### C BC, CMP12, CRP, TSH, IGA, TGLIGA, TGLIGG ####[address] [address] Urea nitrogen mass conc (Bld) 24 mg/dL High 6-23 [facility] Comment on above: Result Comment: Juwan veronica note new reference range as of June. Performed By: #### C BC, CMP12, CRP, TSH, IGA, TGLIGA, TGLIGG ####[facility] [place] [address] Initial Visit (Gastroenterol ogy)on 11-15-2017 Initial Visit (Gastroenterology) Chief ComplaintNew patient visit for Chronic Diarrhea and gas. Referred by Dr. Steven Angeles. History of Present IllnessThis is a pleasant 42-year-old woman who presents for further evaluation of significant chronic diarrhea. The patient states that she has had multiple episodes of daily watery stool for the last 3 months. The timing of onset seemed to coincide with the unfortunate passing of her mother. She initially attributed it to stress, however symptoms have persisted and haven't challenging to manage and have impacted her quality. She states that she has erratic and frequent bouts of diarrhea, described as frankly watery brown stool. This sometimes happens up to 5 times a day and often times more. She denies any overt GI bleeding. She has had occasional episodes of incontinence and endorses some nocturnal symptoms as well. Her diarrhea is typically not associated with abdominal pain, though she does endorse significant bloating during this time. She denies any nausea or vomiting. She denies any unintentional weight loss. She has been on various courses of antibiotics for chronic bronchitis in the past, she is not sure as to when the last time she took antibiotcs was however. She denies any clear changes in her medications to coincide with the onset of her symptoms. She denies any recent travel or sick contacts. She is not use NSAIDs significantly and denies any other herbal or lpfq-nlp-vhlxjfq supplements. She was initially evaluated by her PCP, she reports some basic blood work and stool studies that were unremarkable, however the results of these are not available for my review at this time. She reports seeing my colleague, Dr. Gonzales, a number of years ago for evaluation of rectal bleeding. She states that she underwent a colonoscopy which she believes was normal, however I do not have the results of this exam for review at this time. Her PCP had prescribed her Viberzi, which she has been taking as prescribed, which she does not believe has been very helpful. She does use raux-aza-lzicegn loperamide, and when taken in doses more than 2 or 4 mg, does seem to slow down her diarrhea some. She denies any family history of celiac disease, inflammatory bowel disease or colorectal cancer. Review of SystemsComplete 14 point review of systems as per history of present illness, otherwise negative. Allergies No Known Drug Allergies Recorded By: Jaspreet Early; 11/15/2017 4:24:43 PM Vitals Vital Signs Recorded: 15Nov2017 04:04PMHeart Symx88Pnikregfslo87Odane nju385, LUE, WfsqsvzRufxdemnv24, LUE, SittingBlood Pressure Cuff SizeAdultHeight5 ft 5 ixQsbpxp511 lb 7 ozBMI Xjstebsuxc49.36BSA Calculated1.93O2 Oyjxghkcyr75, RAPain Scale5/10 Physical ExamGen: AANDOx3, NADHEENT: no scleral icterus, OP clearCV: RRR no m/r/gResp: CTAB no w/r/rAbd: Soft, NT, ND, normoactive BSExt: WWP, no edema Diagnoses/Problems 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) Bloating (787.3) (R14.0) OrdersChronic diarrhea of unknown origin C Reactive Protein, Serum; Source:Blood (BLD); Status:Active; Requestedfor:15Nov2017; Perform:Lab Services - Lab To Draw (Blood Test); Due:13Feb2018;Ordered; For:Chronic diarrhea of unknown origin; Ordered By:Jaspreet Early; Calprotectin, Fecal; Status:Active; Requested for:15Nov2017; Perform:Lab Services - Lab To Draw (Non-Blood Test); Due:48Clk8757;Ordered; For:Chronic diarrhea of unknown origin; Ordered By:Jaspreet Early; Clostridium Difficile Toxin, PCR; Source:Culture; Status:Active; Requestedfor:15Nov2017; Perform:Lab Services - Lab To Draw (Non-Blood Test); Due:48Ubx0030;Ordered; For:Chronic diarrhea of unknown origin; Ordered By:Jaspreet Early; Complete Blood Count + Differential; Source:Blood (BLD); Status:Active; Requestedfor:18Fdi7114; Perform:Lab Services - Lab To Draw (Blood Test); Due:90Btx5644;Ordered; For:Chronic diarrhea of unknown origin; Ordered By:Jaspreet Early; Comprehensive Metabolic Panel; Status:Active; Requested for:98Qrr7570; Perform:Lab Services - Lab To Draw (Blood Test); Due:73Hid5602;Ordered; For:Chronic diarrhea of unknown origin; Ordered By:Jaspreet Early; Electrolyte Panel, Stool; Status:Active; Requested for:62Zgf5002; Perform:Lab Services - Lab To Draw (Non-Blood Test); Due:86Zkj6124;Ordered; For:Chronic diarrhea of unknown origin; Ordered By:Jaspreet Early; Immunoglobulin A Level, Serum; Source:Blood ([facility]); Status:Active; Requestedfor:27Auw1673; Perform:Lab Services - Lab To Draw (Blood Test); Due:05Qmf5302;Ordered; For:Chronic diarrhea of unknown origin; Ordered By:Jaspreet Early; Ova and Parasite + Giardia/Crypto Ag; Status:Active; Requested for:57Jbc6841; Perform:Lab Services - Lab To Draw (Non-Blood Test); Due:84Jrm8536;Ordered; For:Chronic diarrhea of unknown origin; Ordered By:Jaspreet Early; STOOL PATHOGEN PCR PANEL; Status:Active; Requested for:84Fxe8283; Perform:Lab Services - Lab To Draw (Non-Blood Test); Due:42Nla1132;Ordered; For:Chronic diarrhea of unknown origin; Ordered By:Jaspreet Early; Stool Reducing Substance Screen; Status:Active; Requested for:41Ays7810; Perform:Lab Services - Lab To Draw (Non-Blood Test); Due:32Ewt9800;Ordered; For:Chronic diarrhea of unknown origin; Ordered By:Jaspreet Early; TSH - Thyroid Stimulating Hormone, Serum; Source:Blood (D); Status:NeedInformation - ABN Disposition; Requested for:35Ytq7752; Perform:Lab Services - Lab To Draw (Blood Test); Due:95Nhu7084;Ordered; For:Chronic diarrhea of unknown origin; Ordered By:Jaspreet Early; TTG Antibody IgA with Titer; Source:Blood (BLD); Status:Active; Requestedfor:79Vkm4175; Perform:Lab Services - Lab To Draw (Blood Test); Due:32Vah3442;Ordered; For:Chronic diarrhea of unknown origin; Ordered By:Jaspreet Early; Provider Latia is a pleasant 42-year-old woman who presents for further evaluation of significant chronic diarrhea. The etiology of her chronic diarrhea remains unclear at this point. She does note a correlation with significant stress and the unfortunate passing of her mother, however her diarrhea has not improved over time. It is occasionally associated with nocturnal symptoms as well as incontinence. It appears that she likely underwent basic workup with her PCP, however these results are not available for my review at this time. She has not had any improvement in her symptoms with empiric Viberzi for possible IBS-D.Problem List:1. Chronic diarrhea2. BloatingRecommendations: Will plan to obtain basic labs today including CBC, CMP, CRP, celiac serologies, infectious studies including C. difficile, stool pathogens panel and ova and parasite panel. Will additionally obtain a fecal calprotectin as well as a stool electrolyte panel and stool for reducing substances. I discussed with her that should this initial evaluation be unremarkable, we may need to consider performing an EGD and colonoscopy with biopsies for further evaluation of etiologies such as inflammatory bowel disease, malabsorption, microscopic colitis, etc. She is agreeable to this plan. Additionally, may consider H2 breath testing to evaluate for SIBO in the future. She will follow up in 1-2 months or sooner if needed. Patient Discussion/Summary1. Obtain blood work2. Obtain stool studies3. Stop Viberzi4. Can use loperamide (over the counter) as needed, pending additional workup5. Return to clinic in 1-2 months, or sooner if needed. Signatures Electronically signed by : Jaspreet Early MD,; Nov 15 2017 4:39PM EST (Author) [facility] Thyroid Stimulating Hormoneo n 11-15-2017 Thyrotropin Qn 0.60 m[IU]/L Normal 0.44-3.98 [facility] Comment on above: Result Comment: --- 11/15/172030 ---TSH previously reported as: 0.59 mIU/L Performed By: #### C BC, CMP12, CRP, TSH, IGA, TGLIGA, TGLIGG ####[place] [address] Vital Signs Date Time Vital Sign Value Performing Clinician Facility 09-29-2024 04:50-0400 Body temperature 97.5 [degF] [facility] Work Phone: [facility] 09-29-2024 04:50-0400 Diastolic blood pressure 87 mm[Hg] [facility] Work Phone: 1([phone] [place] [address] 09-29-2024 04:50-0400 Heart rate 81 /min [facility] Work Phone: 6(704)030-400039 [place] [address] 09-29-2024 04:50-0400 Respiratory rate 18 /min [facility] Work Phone: 5([phone] [place] [address] 09-29-2024 04:50-0400 SaO2% (BldA) [Mass fraction] 96 % [facility] Work Phone: [facility] 09-29-2024 04:50-0400 Systolic blood pressure 121 mm[Hg] [facility] Work Phone: [facility] 09-28-2024 23:41-0400 Body height 162.6 cm [facility] Work Phone: [phone] [place] [address] 09-28-2024 23:41-0400 Body mass index (BMI) [Ratio] 45.14 kg/m2 [facility] Work Phone: [facility] 09-28-2024 23:41-0400 Body weight 119.3 kg [facility] Work Phone: [facility] 09-06-2024 14:43-0400 SaO2% (BldA) [Mass fraction] 99 % JOURDAN DAMON [facility] Comment on above: Order Comment: Specimen Type: ARTERIAL B LOOD SPECIMENOrdering Facility: [facility] Address: [address] [place], [place] [address] [address] Performed By: #### A LLBG ####[facility] LABIA [id number] [place] [id number] [facility] 09-06-2024 11:35-0400 SaO2% (BldA) [Mass fraction] 100 % SHINYA UNAI [facility] Comment on above: Order Comment: Specimen Type: ARTERIAL B LOOD SPECIMENOrdering Facility: [facility] Address: [address] [place], [place] [id number] Performed By: #### A LLBG ####[facility] LABIA [id number] [place] [id number] [facility] 09-06-2024 10:10-0400 SaO2% (BldA) [Mass fraction] 97 % SHINYA UNAI [facility] Comment on above: Order Comment: Specimen Type: ARTERIAL B LOOD SPECIMENOrdering Facility: [facility] Address: [address] [place] [address] Performed By: #### A LLBG ####[facility] [id number] [place] [id number] [facility] 09-06-2024 07:44-0400 SaO2% (BldA) [Mass fraction] 96 % SHINYA UNAI [facility] Comment on above: Order Comment: Specimen Type: ARTERIAL B LOOD SPECIMENOrdering Facility: [facility] Address: [address] [place], [place] [id number] Performed By: #### A LLBG ####[facility] LABIA [id number] [address] [address] [facility] 09-06-2024 05:44-0400 SaO2% (BldA) [Mass fraction] 99 % SHINYA UNAI [facility] Comment on above: Order Comment: Specimen Type: ARTERIAL B LOOD SPECIMENOrdering Facility: [facility] Address: [address] [place], [place] [id number] Performed By: #### A LLBG ####[facility] [id number] [address] [address] [place] 09-06-2024 03:34-0400 SaO2% (BldA) [Mass fraction] 99 % SHINYA UNAI [facility] Comment on above: Order Comment: Specimen Type: ARTERIAL B LOOD SPECIMENOrdering Facility: [facility] Address: [address] [place], [place] [address] Performed By: #### A LLBG ####[facility] [id number] [place] [id number] [place] 09-06-2024 01:58-0400 SaO2% (BldA) [Mass fraction] 99 % SHINYA UNAI [facility] Comment on above: Order Comment: Specimen Type: ARTERIAL B LOOD SPECIMENOrdering Facility: [facility] Address: [address] [place] [address] Performed By: #### A LLBG ####[facility] [id number] [place] [id number] [facility] [place] 09-05-2024 23:34-0400 SaO2% (BldA) [Mass fraction] 99 % SHINYA UNAI [facility] Comment on above: Order Comment: Specimen Type: ARTERIAL B LOOD SPECIMENOrdering Facility: [facility] Address: [address] [place], [place] [id number] Performed By: #### A LLBG ####[facility] [id number] [place] [id number] [place] 09-05-2024 21:39-0400 SaO2% (BldA) [Mass fraction] 99 % SHINYA UNAI [facility] Comment on above: Order Comment: Specimen Type: ARTERIAL B LOOD SPECIMENOrdering Facility: [facility] Address: [address] [place], [place] [address] Performed By: #### A LLBG ####[facility] LABIA [id number] [place] [id number] [facility] 09-05-2024 19:43-0400 SaO2% (BldA) [Mass fraction] 98 % SHINYA UNAI [facility] Comment on above: Order Comment: Specimen Type: ARTERIAL B LOOD SPECIMENOrdering Facility: [facility] Address: [address] [place], [place] [address] Performed By: #### A LLBG ####[facility] LABCLIA [id number] [address] [address] [facility] 09-05-2024 18:51-0400 SaO2% (BldA) [Mass fraction] 96 % SHINYA UNAI [facility] Comment on above: Order Comment: Specimen Type: ARTERIAL B LOOD SPECIMENOrdering Facility: [facility] Address: [address] [place], [place] [address] Performed By: #### A LLBG ####[facility] LABIA [id number] [place] [id number] [facility] 09-05-2024 16:27-0400 SaO2% (BldA) [Mass fraction] 97 % SHINYA UNAI [facility] Comment on above: Order Comment: Specimen Type: ARTERIAL B LOOD SPECIMENOrdering Facility: [facility] Address: [address] [place], [place] [address] Performed By: #### A LLBG ####[facility] LABIA [id number] [place] [id number] [facility] 09-05-2024 14:17-0400 SaO2% (BldA) [Mass fraction] 98 % SHINYA UNAI [facility] Comment on above: Order Comment: Specimen Type: ARTERIAL B LOOD SPECIMENOrdering Facility: [facility] Address: [address] [place], [place] [address] Performed By: #### A LLBG ####[facility] LABIA [id number] [address] [address] [facility] 09-05-2024 12:59-0400 SaO2% (BldA) [Mass fraction] 99 % SHINYA UNAI [facility] Comment on above: Order Comment: Specimen Type: ARTERIAL B LOOD SPECIMENOrdering Facility: [facility] Address: [address] [place], [place] [address] Performed By: #### A LLBG ####[facility] LABCLIA [id number] [address] [address] [facility] 09-05-2024 12:04-0400 SaO2% (BldA) [Mass fraction] 97 % SHINYA UNAI [facility] Comment on above: Order Comment: Specimen Type: ARTERIAL B LOOD SPECIMENOrdering Facility: [facility] Address: [address] [place], [place] [address] Performed By: #### A LLBG ####[facility] LABIA [id number] [place] [id number] [facility] 09-05-2024 09:38-0400 SaO2% (BldA) [Mass fraction] 94 % SHINYA UNAI [facility] Comment on above: Order Comment: Specimen Type: ARTERIAL B LOOD SPECIMENOrdering Facility: [facility] Address: [address] [place], [place] [address] Performed By: #### A LLBG ####[facility] LABIA [id number] [address] [address] [facility] 09-05-2024 07:42-0400 SaO2% (BldA) [Mass fraction] 95 % SHINYA UNAI [facility] Comment on above: Order Comment: Specimen Type: ARTERIAL B LOOD SPECIMENOrdering Facility: [facility] Address: [address] [place], [place] [address] Performed By: #### A LLBG ####[facility] LABIA [id number] [address] [address] [facility] [place] 09-05-2024 05:42-0400 SaO2% (BldA) [Mass fraction] 99 % SHINYA UNAI [facility] Comment on above: Order Comment: Specimen Type: ARTERIAL B LOOD SPECIMENOrdering Facility: [facility] Address: [address] [place], [place] [address] Performed By: #### A LLBG ####[facility] LABCLIA [id number] [address] [address] [facility] 09-05-2024 03:40-0400 SaO2% (BldA) [Mass fraction] 97 % SHINYA EDVINI [facility] Comment on above: Order Comment: Specimen Type: ARTERIAL B LOOD SPECIMENOrdering Facility: [facility] Address: [address] [place], [place] [address] Performed By: #### A LLBG ####[facility] LABIA [id number] [address] [address] [place] 09-05-2024 01:48-0400 SaO2% (BldA) [Mass fraction] 99 % SHINFELICIANO PARDOI [facility] Comment on above: Order Comment: Specimen Type: ARTERIAL B LOOD SPECIMENOrdering Facility: [facility] Address: [address] [place], [place] [address] Performed By: #### A LLBG ####[facility] LABIA [id number] [address] [address] [place] 09-05-2024 00:18-0400 SaO2% (BldA) [Mass fraction] 98 % SHINYA EDVINI [facility] Comment on above: Order Comment: Specimen Type: ARTERIAL B LOOD SPECIMENOrdering Facility: [facility] Address: [address] [place], [place] [address] Performed By: #### A LLBG ####[facility] LABIA [id number] [address] [address] [place] 09-04-2024 23:34-0400 SaO2% (BldA) [Mass fraction] 93 % SHINYA UNAI [facility] Comment on above: Order Comment: Specimen Type: ARTERIAL B LOOD SPECIMENOrdering Facility: [facility] Address: [address] [place], [place] [address] Performed By: #### A LLBG ####[facility] LABIA [id number] [address] [address] [facility] 09-04-2024 21:42-0400 SaO2% (BldA) [Mass fraction] 98 % SHINYA UNAI [facility] Comment on above: Order Comment: Specimen Type: ARTERIAL B LOOD SPECIMENOrdering Facility: [facility] Address: [address] [place], [place] [address] Performed By: #### A LLBG ####[facility] [id number] [place] [id number] [place] 09-04-2024 20:41-0400 SaO2% (BldA) [Mass fraction] 98 % SHINYA UNAI [facility] Comment on above: Order Comment: Specimen Type: ARTERIAL B LOOD SPECIMENOrdering Facility: [facility] Address: [address] [place], [place] [address] Performed By: #### A LLBG ####[facility] [id number] [place] [id number] [place] 09-04-2024 19:29-0400 SaO2% (BldA) [Mass fraction] 99 % SHINYA UNAI [facility] Comment on above: Order Comment: Specimen Type: ARTERIAL B LOOD SPECIMENOrdering Facility: [facility] Address: [address] [place], [place] [address] Performed By: #### A LLBG ####[facility] [id number] [place] [id number] [facility] [place] 09-04-2024 17:32-0400 SaO2% (BldA) [Mass fraction] 99 % SHINYA UNAI [facility] Comment on above: Order Comment: Specimen Type: ARTERIAL B LOOD SPECIMENOrdering Facility: [facility] Address: [address] [place] [address] Performed By: #### A LLBG ####[facility] LABIA [id number] [place] [id number] [facility] 09-04-2024 16:32-0400 SaO2% (BldA) [Mass fraction] 99 % SHINYA UNAI [facility] Comment on above: Order Comment: Specimen Type: ARTERIAL B LOOD SPECIMENOrdering Facility: [facility] Address: [address] [place], [place] [address] Performed By: #### A LLBG ####[facility] LABIA [id number] [place] [id number] [facility] 09-04-2024 15:03-0400 SaO2% (BldA) [Mass fraction] 99 % SHINYA UNAI [facility] Comment on above: Order Comment: Specimen Type: ARTERIAL B LOOD SPECIMENOrdering Facility: [facility] Address: [address] [place] [address] Performed By: #### A LLBG ####[facility] [id number] [place] [id number] [facility] 09-04-2024 14:03-0400 SaO2% (BldA) [Mass fraction] 99 % SHINYA UNAI [facility] Comment on above: Order Comment: Specimen Type: ARTERIAL B LOOD SPECIMENOrdering Facility: [facility] Address: [address] [place], [place] [address] Performed By: #### A LLBG ####[facility] LABIA [id number] [address] [address] [facility] 09-04-2024 12:46-0400 SaO2% (BldA) [Mass fraction] 99 % SHINYA UNAI [facility] Comment on above: Order Comment: Specimen Type: ARTERIAL B LOOD SPECIMENOrdering Facility: [facility] Address: [address] [place], [place] [address] Performed By: #### A LLBG ####[facility] LABIA [id number] [address] [address] [place] 09-04-2024 12:17-0400 SaO2% (BldA) [Mass fraction] 99 % SHINYA UNAI [facility] Comment on above: Order Comment: Specimen Type: ARTERIAL B LOOD SPECIMENOrdering Facility: [facility] Address: [address] [place], [place] [address] Performed By: #### A LLBG ####[facility] [id number] [place] [id number] [place] 09-04-2024 10:53-0400 SaO2% (BldA) [Mass fraction] 100 % SHINYA UNAI [facility] Comment on above: Order Comment: Specimen Type: ARTERIAL B LOOD SPECIMENOrdering Facility: [facility] Address: [address] [place] [address] Performed By: #### A LLBG ####[facility] [id number] [place] [id number] [facility] [place] 09-04-2024 10:15-0400 SaO2% (BldA) [Mass fraction] 100 % SHINYA UNAI [facility] Comment on above: Order Comment: Specimen Type: ARTERIAL B LOOD SPECIMENOrdering Facility: [facility] Address: [address] [place], [place] [address] Performed By: #### A LLBG ####[facility] [id number] [place] [id number] [place] 09-04-2024 09:44-0400 SaO2% (BldA) [Mass fraction] 100 % SHINYA UNAI [facility] Comment on above: Order Comment: Specimen Type: ARTERIAL B LOOD SPECIMENOrdering Facility: [facility] Address: [address] [place], [place] [address] Performed By: #### A LLBG ####[facility] LABIA [id number] [place] [id number] [place] 07-17-2025 07:27-0400 SaO2% (BldA) [Mass fraction] 99 % SHINYA UNAI [facility] Comment on above: Order Comment: Specimen Type: ARTERIAL B LOOD SPECIMENOrdering Facility: [facility] Address: [address] [place] [id number] Performed By: #### A LLBG ####[facility] LABCLIA [id number] [facility] [id number] [place], [place] [id number] [facility] 04-09-2023 20:00-0500 Body temperature 97.9 [degF] [facility] 04-09-2023 20:00-0500 Diastolic blood pressure 71 mm[Hg] [facility] 04-09-2023 20:00-0500 Heart rate 92 /min [facility] 04-09-2023 20:00-0500 Respiratory rate 18 /min [facility] 04-09-2023 20:00-0500 SaO2% (BldA) [Mass fraction] 95 % [facility] 04-09-2023 20:00-0500 Systolic blood pressure 129 mm[Hg] [facility] 04-09-2023 17:35-0500 Body height 162.[address] [facility] 04-09-2023 17:35-0500 Body mass index (BMI) [Ratio] 43.9 kg/m2 [facility] 04-09-2023 17:35-[address] [facility] Encounters Encounter Date Encounter Type Care Provider Facility Start: 09-28-2024 End: 09-29-2024 Emergency department patient visit Riky Chew DO Work Phone: [facility] Comment on above: Chest pain, unspecif ied type (Primary Dx) Start: 09-18-2024 End: 09-18-2024 ambulatory SHINYA UNAI Facility:[facility] Start: 09-02-2024 Encounter for preprocedural cardiovascular examination SHINYA UNAI [facility] Start: 09-01-2024 End: 09-10-2024 Evaluation and management of inpatient SHINYA UNAI Facility:[facility] Start: 09-01-2024 Admission to [facility] JOURDAN DAMON [facility] Start: 09-01-2024 End: 09-01-2024 ambulatory SHINFELICIANO PARDOI Facility:[facility] Start: 09-01-2024 End: 09-01-2024 ambulatory JACI SORTO Facility:[facility] Start: 09-01-2024 Encounter for other preprocedural examination JACI SORTO [facility] Start: 09-01-2024 End: 09-01-2024 ambulatory JOURDAN DAMON Facility:[facility] Start: 08-13-2024 End: 08-13-2024 ambulatory MONIQUE CA Facility:[id number] Start: 08-13-2024 Encounter for preprocedural cardiovascular examination [facility] Start: 08-08-2024 End: 08-08-2024 ambulatory VASQUEZ BRUSH Facility:[facility] Start: 07-25-2024 End: 07-25-2024 ambulatory VASQUEZ BRUSH Facility:[facility] Start: 07-23-2024 End: 07-23-2024 ambulatory VASQUEZ BRUSH Facility:[facility] Start: 07-23-2024 Encounter for preprocedural cardiovascular examination MONIQUE NUNEZ [facility] Start: 07-19-2024 End: 07-19-2024 Evaluation and management of inpatient REGINO GUTIERREZ Facility:[facility] Start: 07-08-2024 ambulatory VASQUEZ BRUSH Facilit y:[facility] Start: 06-30-2024 End: 06-30-2024 Emergency department patient visit Jorge Monique Facility:[facility] Start: 06-27-2024 End: 06-27-2024 ambulatory VASQUEZ BRUSH Facility:[facility] Start: 06-26-2024 End: 06-26-2024 ambulatory VASQUEZ BRUSH Facility:[facility] Start: 06-24-2024 End: 06-24-2024 ambulatory VASQUEZ BRUSH Facility:[facility] Start: 06-19-2024 End: 06-19-2024 Emergency department patient visit Vasquez Brush NP Facility:[facility] Start: 06-19-2024 End: 06-19-2024 ambulatory JOEY PICKETT Facility:[facility] Start: 05-07-2024 End: 05-07-2024 ambulatory VASQUEZ C TRILL Facility:[facility] Start: 04-24-2024 End: 04-24-2024 ambulatory VASQUEZ C TRILL Facility:[facility] Start: 04-08-2024 End: 04-08-2024 ambulatory VASQUEZ C TRILL Facility:[facility] Start: 04-07-2024 End: 04-07-2024 ambulatory VASQUEZ C TRILL Facility:[facility] Start: 02-28-2024 End: 02-28-2024 ambulatory VASQUEZ C TRILL Facility:[facility] Start: 02-27-2024 End: 02-27-2024 ambulatory VASQUEZ C TRILL Facility:[facility] Start: 02-07-2024 End: 02-07-2024 ambulatory VASQUEZ C TRILL Facility:[facility] Start: 01-16-2024 End: 01-16-2024 ambulatory VASQUEZ C TRILL Facility:[facility] Start: 01-11-2024 End: 01-11-2024 ambulatory VASQUEZ C TRILL Facility:[facility] Start: 01-11-2024 Encounter for other preprocedural examination JOURDAN DAMON [facility] Start: 01-11-2024 End: 01-11-2024 ambulatory JOEY PICKETT Facility:[facility] Start: 01-08-2024 End: 01-08-2024 ambulatory VASQUEZ C TRILL Facility:[facility] Start: 01-02-2024 ambulatory VASQUEZ C TRILL Facilit y:[facility] Start: 12-26-2023 End: 12-26-2023 ambulatory VASQUEZ C TRILL Facility:[facility] Start: 12-24-2023 End: 12-24-2023 ambulatory VASQUEZ C TRILL Facility:[facility] Start: 12-24-2023 ambulatory VASQUEZ C TRILL Facilit y:[facility] Start: 12-24-2023 End: 12-24-2023 ambulatory JOEY PICKETT Facility:[facility] Start: 10-30-2023 End: 10-30-2023 ambulatory LIZA GONZALEZ Facility:[facility] Start: 10-17-2023 End: 10-21-2023 ambulatory VASQUEZ Best BESSBLOSSOM Facility:[facility] Start: 04-09-2023 End: 04-09-2023 Emergency department patient visit [facility] Work Phone: Start: 08-29-2022 ambulatory Josi Grullon COPY WRITER-S Work Phone: [facility] Start: 08-29-2022 Chart abstracting Josi Hoang is COPY WRITER-S Work Phone: [facility] Start: 03-20-2022 End: 03-20-2022 Emergency department patient visit Pepe Salmon [facility] Emergency 03 Start: 02-13-2022 End: 02-13-2022 Emergency department patient visit Maxwell Marin [facility] Emergency 12 Start: 04-10-2018 End: 04-12-2018 Evaluation and management of inpatient JOEY HUTCHINSON [facility] Start: 02-26-2018 Patient encounter procedure JASPREET EARLY Facility:[id number] Start: 12-26-2017 Patient encounter procedure Reid Early Facility:[id number] Start: 12-17-2017 Patient encounter procedure JASPREET EARLY Facility:[id number] Start: 11-16-2017 Patient encounter Jaspreet Early Facility:[facility] Start: 11-15-2017 Patient encounter Jaspreet Early Facility:[facility] Start: 05-27-2017 End: 05-27-2017 Emergency department patient visit [facility] Start: 12-29-2015 End: 12-30-2015 Patient encounter procedure SELF PATIENT Facility:[facility] Procedures Date Procedure Procedure Detail Performing Clinician Start: 09-29-2024 Assay of troponin quantitative Riky Chew DO Work Phone: Start: 09-29-2024 Ct angiography chest w/contrast/noncontrast Riky Chew DO Work Phone: Start: 09-29-2024 Influenza virus A an d B RNA [Identifier] in Unspecified specimen by KADY with probe detection Riky Chew DO Work Phone: Start: 09-29-2024 SARS-CoV-2 (COVID-19 ) RNA [Presence] in Respiratory specimen by KADY with probe detection Riky Chew DO Work Phone: Start: 09-29-2024 Basic metabolic pane l calcium total Riky Chew DO Work Phone: Start: 09-29-2024 Troponin I.cardiac p luciano - Serum or Plasma by High sensitivity method Riky Chew DO Work Phone: Start: 09-01-2024 Antibody screen SHINFELICIANO DAMON Comment on above: Order Comment: Speci men Type: BLOOD SPECIMENOrdering Facility: [facility] Address: [address] [place] [address] Performed By: #### T SCR30 ####CC MAIN BLOOD BANKIA [id number] [address] Start: 01-11-2024 Antibody screen SHINYA LILA Comment on above: Order Comment: Speci men Type: BLOOD SPECIMENOrdering Facility: [facility] Address: [address] [place] [address] Performed By: #### T SCR30 ####CC MAIN BLOOD BANKIA [id number] [address] [facility] [place] Start: 03-20-2022 End: 03-20-2022 EKG impression Pepe Salmon Start: 12-25-2017 Colonoscopy Riky Natalie gruber DO Work Phone: Start: 12-29-2015 Pharmacologic manage ment w/psychotherapy SELF PATIENT Plan of Treatment Date Care Activity Detail Author Start: 12-26-2027 Screening for malign ant neoplasm of colon [facility] Start: 2027 Zoster Vaccines (1 o f 2) Zoster Vaccines (1 of 2) [facility] Start: 10-20-2024 Influenza vaccination Influenza Vacc ine (#1) [facility] Start: 10-21-2023 COVID-19 Vaccine ( season) COVID-19 Vaccine ( season) [facility] Start: 04-09-2023 [facility] Start: 10-20-2022 Influenza vaccination Imm-Influenza (#1) [facility] Start: 06-10-2022 Hypertension screening Hyperte nsion Screening (#1) [facility] Start: 2022 Screening for malign ant neoplasm of colon [facility] Start: 02-19-2022 Screening for substa nce abuse Alcohol and Drug Screen [facility] Start: 09-13-2021 Relationship Safety Screening/Counseling Relationship Safety Screening/Counseling [facility] Start: 12-14-2020 Depression Monitoring Depression Mon itoring [facility] Start: 2017 Screening for malign ant neoplasm of breast Mammogram [facility] Start: 1999 DTaP/Tdap/Td Vaccine s (1 - Tdap) DTaP/Tdap/Td Vaccines (1 - Tdap) [facility] Start: 1998 Screening for malign ant neoplasm of cervix [facility] Start: 1996 Hepatitis B Vaccines (1 of 3 - 19+ 3-dose series) Hepatitis B Vaccines (1 of 3 - 19+ 3-dose series) [facility] Start: 1996 Pneumococcal Vaccine : Pediatrics and At-Risk Adult Patients (1 of 2 - PCV) Pneumococcal Vaccine: Pediatrics and At-Risk Adult Patients (1 of 2 - PCV) [facility] Start: 1996 Tetanus vaccination Imm-DTaP/T dap/Td (1 - Tdap) [facility] Start: 1995 Hepatitis C screening Hepatitis C Sc [facility] Start: 1992 HIV Screening HIV Screening [facility] Start: 1991 Serologic test for syphilis Syphilis Screening [facility] Start: 1980 Annual Wellness Visi t (Medicare) Annual Wellness Visit (Medicare) [facility] Start: 1978 MMR Vaccines (1 of 1 - Standard series) MMR Vaccines (1 of 1 - Standard series) [facility] Start: 1977 Pna-AZEVR-08 (#1) Qum-[id number]-26 (#1) [facility] Start: 1977 Annual wellness visit Welcome to Medicare Visit [facility] Start: 1977 Diabetes mellitus screening Diabetes Screening [facility] Start: 1977 Hepatitis B vaccination Imm-He patitis B (1 of 3 - 3-dose series) [facility] Start: 1977 Hepatitis C screening Hepatitis C Sc reening [facility] Start: 1977 HIV screening HIV Screening [facility] Start: 1977 LARC-Mirena IUD LARC-Mirena IUD [facility] Start: 1977 Lipid panel [facility] Start: 1977 Screening for malign ant neoplasm of cervix [facility] Start: 1977 Screening for malign ant neoplasm of colon [facility] End: 09-28-2024 ECG 12 Lead [facility] Service Area Work Phone: Comment on above: Once for 1 Occurrenc es starting 09/28/2024 until 09/28/2024 Patient Education POP Surg Recto maria isabel Enterocele ED Genital Warts [facility] Work Phone: Patient referral [facility] Work Phone: Payers Date Payer Category Payer Self-pay 2024 Dual Eligibility Medicare/Medicaid Organization [facility] DUAL COMPLETE [id number] 2024 Medicare [id number] 2021 Medicare [id number] 2001 Medicaid [id number] 1998 Private Health Insurance [id number] 1977 Unknown [id number] 1977 Unknown [id number] 1977 Unknown [id number] .356 1977 Unknown [id number] .356 1977 Unknown [id number] .356 1977 Unknown [id number] .[id number] 1977 Unknown [id number] .[id number] 1977 Unknown [id number] .1069 1977 Unknown [id number] .[id number] Medicare [id number] Medicare [id number] Unknown [id number] .286 Unknown [id number] .286 Unknown [id number] .286 Unknown Unknown [id number] .462 Unknown [id number] .462 Social History Date Type Detail Facility [facility] Start: 04-09-2023 Tobacco smoking consumption unknown [facility] Start: 06-10-2021 Tobacco smoking status NHIS Ex-smoker [facility] Work Phone: Start: 02-19-1994 End: 06-05-2021 History of tobacco use Current smoker [facility] Work Phone: Start: 02-19-1994 End: 06-05-2021 History of tobacco use Cigarette Smoker [facility] Work Phone: Start: 09-13-2020 End: 06-10-2021 Cigarettes smoked current (pack per day) - Reported 0.5 [facility] Work Phone: Start: 06-10-2021 Tobacco use and exposure Smokeless tobacco non-user [facility] Work Phone: Start: 12-05-2021 Alcohol intake Current drinker of alcohol (finding) [facility] Work Phone: Start: 09-13-2020 Social Connections [facility] Work Phone: Start: 01-13-2022 Social Connections and Isolation [address] [place] [address] Start: 07-30-2019 Alcohol Comment 1-3 drinks about 4x per year [facility] Work Phone: Start: 1975 Sex Assigned At Female [facility] Work Phone: Start: 03-18-2018 Gender identity Identifies as female gender (finding) [facility] Work Phone: Start: 03-18-2018 Sexual orientation Heterosexual (finding) [facility] Work Phone: Start: 1975 Sex assigned at Not on file [facility] Work Phone: Functional Status Date Assessment Result Facility 09-28-2024 [place] - 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 Author Type: Registered Nurse Type: Progress Notes Filed: 10/10/2024 14:22 Note Text: AG TRANSITIONAL CARE MANAGEMENT (TCM) FOLLOW-UP NOTE Provider Action/FYI: Patient identified by name and date of : YES Spoke to: patient Diagnosis: CHF Summary: Patient returned call today and notes that phone is not ringing. SN attempted to return call, no answer. Unable to leave message voice mail is full. Health leads screening tool questions performed? N/A N/A Concerns: N/A Shank Archer plan for next outreach: No further follow-up needed at this time. Signature: Johnna Veliz RN October 10, 2024 [facility] 10-10-2024 Note Patient Outreach (AG ACM) PAUL DAVENPORT ([id number]) 1975 F Date Time Provider Department 10/10/24 JOHNNA VELIZ [facility] During your visit today, we recorded the following information about you: Johnna Veliz RN 10/10/2024 2:22 PM Signed TRANSITIONAL CARE MANAGEMENT (TCM) FOLLOW-UP NOTE Provider Action/FYI: Patient identified by name and date of : YES Spoke to: patient Diagnosis: CHF Summary: Patient returned call today and notes that phone is not ringing. SN attempted to return call, no answer. Unable to leave message voice mail is full. Health leads screening tool questions performed? N/A N/A Concerns: N/A Shank Archer plan for next outreach: No further follow-up needed at this time. Signature: Johnna Veliz RN October 10, 2024 Allergies As of Date: 10/10/2024 Noted Allergy Reaction DUST 01/27/2009 Comments: extreme coughing, dry hives METFORMIN 04/09/2023 14 - Other: See Comments Date Reviewed: 09/18/2024 Reviewed by: Meryl Lang MA - Fully Assessed Reason for Visit: Transition Of Care [4074] Cmt: Patient Call Prescriptions as of 10/10/2024 - torsemide (DEMADEX) 20 mg tablet Take 1 tablet by mouth once daily. - potassium chloride (K-TAB) 10 mEq tablet Take 1 tablet by mouth once daily. - propranolol (INDERAL) 20 mg tablet Take 1 tablet by mouth two times a day. - nystatin (MYCOSTATIN) cream Apply to affected area two times a day. - esomeprazole (NEXIUM) 40 mg capsule Take 1 capsule by mouth two times a day. - fluticasone (FLONASE) 50 mcg/actuation nasal spray Use 2 sprays in each nostril once daily as needed for cold/allergy symptoms. - fluticasone-salmeterol (ADVAIR, WIXELA) 250-50 mcg/dose inhaler Inhale 1 puff as instructed two times a day. - thiamine (VITAMIN B1) 100 mg tablet Take 100 mg by mouth once daily. - ARIPiprazole (ABILIFY) 15 mg tablet Take 15 mg by mouth once daily. - levonorgestrel (MIRENA) 21 mcg/24hr (up to 8 yrs) 52 mg IUD 1 each by INTRAUTERINE route one time only. - acetaminophen (TYLENOL) 325 mg tablet 2 tablets by ORAL/FEEDING TUBE route every 4 hours as needed for pain. - clopidogrel (PLAVIX) 75 mg tablet Take 1 tablet by mouth once daily. - senna-docusate (SENNA-S) 8.6-50 mg per tablet Take 2 tablets by mouth two times a day. - albuterol HFA (PROVENTIL HFA, VENTOLIN HFA) 90 mcg/actuation inhaler Inhale 2 puffs as instructed every 4 hours as needed for wheezing/shortness of breath. - Aspirin 81 mg tab Take 81 mg by mouth once daily. - CoQ10, Liposomal Ubiquinol, (COQMAX UBIQUINOL) 200 mg cap Take 200 mg by mouth once daily. - iv contrast (will be provided with radiology test) CTA ABD/PEL - No IV access, insert saline lock prior to the sedation, infusion, injection for imaging exam. Discontinue saline lock post exam. If Pt. has a central line or IVAD, may access for administration according to line specific nursing protocol. Once exam is complete flush line and de-access according to line specific nursing protocol in the CT contrast administration guidelines link. - FLUoxetine (PROZAC) 40 mg capsule Take 2 capsules by mouth once daily. - LORazepam (ATIVAN) 1 mg tablet Take 1 mg by mouth once daily as needed for anxiety. - cholecalciferol (VITAMIN D3) 1,000 unit tab tablet Take 2 tablets by mouth once daily. Problem List As Of Date 10/10/2024 Noted Resolved Bicuspid AV/AI.. 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] 07/31/2001 02/09/2017 Depressive disorder, not elsewhere classified [*07/31/2001 12/21/2015 Endometriosis of other specified sites [N80.8] 07/31/2001 02/09/2017 ESOPHAGEAL REFLUX [K21.9] 07/31/2001 5.2.1 CHRONIC POST TRAUMA H/A W/ MINOR HEAD TRA*05/19/2003 02/09/2017 Allergic Rhinitis [J30.9] 03/05/2009 Bulimia nervosa, unspecified severity (HCC) [F5*04/08/2009 Vitamin B12 Deficiency [E53.8] 06/23/2009 Dysmenorrhea [N94.6] Routine gynecological examination [Z01.419] 10/23/2012 02/09/2017 Tobacco abuse [Z72.0] 05/11/2021 History of endometriosis [Z87.42] 01/28/2015 MDD (major depressive disorder), recurrent epis*12/21/2015 Raynaud's disease without gangrene [I73.00] 01/14/2016 Fibromyalgia [M79.7] 01/17/2016 Migraine without aura and without status migrai*01/17/2016 Encounter for monitoring proton pump inhibitor *02/09/2017 05/11/2021 Bicuspid aortic valve (HCC) [Q23.81] 02/09/2017 Obesity, Class I, BMI 30-34.9 [E66.811] 02/09/2017 05/11/2021 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 [facility] 10-06-2024 Note HNO ID: [id number] Author: JOHNNA VELIZ RN Service: ? Author Type: Registered Nurse Type: Progress Notes Filed: 10/06/2024 17:24 Note Text: ED Follow-Up Note Provider Action / FYI: Patient returned call and left message requesting refills. Attempted to return call, no answer. Detailed message left. Call completed by: RN Patient seen in ED: In Network ED Contact made with Patient: No, left message. Johnna Veliz RN October 06, 2024 5:23 PM [facility] 10-06-2024 Note HNO ID: [id number] Author: JOHNNA VELIZ RN Service: ? Author Type: Registered Nurse Type: Progress Notes Filed: 10/06/2024 10:28 Note Text: ED Follow-Up Note Provider Action / FYI: Call completed by: RN Patient seen in ED: In Network ED Contact made with Patient: No, left message. Johnna Veliz RN October 06, 2024 10:27 AM [facility] 10-06-2024 Note Patient Outreach (AG ACM) PAUL DAVENPORT ([id number]) 1975 F Date Time Provider Department 10/06/24 JOHNNA VELIZ AGA During your visit today, we recorded the following information about you: Johnna Veliz RN 10/06/2024 10:28 AM Signed ED Follow-Up Note Provider Action / FYI: Call completed by: RN Patient seen in ED: In Network ED Contact made with Patient: No, left message. Johnna Veliz RN October 06, 2024 10:27 AM Johnna Veliz RN 10/06/2024 5:24 PM Signed ED Follow-Up Note Provider Action / FYI: Patient returned call and left message requesting refills. Attempted to return call, no answer. Detailed message left. Call completed by: RN Patient seen in ED: In Network ED Contact made with Patient: No, left message. 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 - nystatin (MYCOSTATIN) cream Apply to affected area two times a day. - torsemide (DEMADEX) 20 mg tablet Take one tablet twice a day for 3 days (8am and 1pm), THEN take 1 tablet once daily. - potassium chloride (K-TAB) 10 mEq tablet Take one tablet daily twice a day for 3 days, then once daily - esomeprazole (NEXIUM) 40 mg capsule Take 1 capsule by mouth two times a day. - fluticasone (FLONASE) 50 mcg/actuation nasal spray Use 2 sprays in each nostril once daily as needed for cold/allergy symptoms. - fluticasone-salmeterol (ADVAIR, WIXELA) 250-50 mcg/dose inhaler Inhale 1 puff as instructed two times a day. - Magnesium 250 mg tab Take 250 mg by mouth once daily. - thiamine (VITAMIN B1) 100 mg tablet Take 100 mg by mouth once daily. - ARIPiprazole (ABILIFY) 15 mg tablet Take 15 mg by mouth once daily. - levonorgestrel (MIRENA) 21 mcg/24hr (up to 8 yrs) 52 mg IUD 1 each by INTRAUTERINE route one time only. - acetaminophen (TYLENOL) 325 mg tablet 2 tablets by ORAL/FEEDING TUBE route every 4 hours as needed for pain. - clopidogrel (PLAVIX) 75 mg tablet Take 1 tablet by mouth once daily. - senna-docusate (SENNA-S) 8.6-50 mg per tablet Take 2 tablets by mouth two times a day. - albuterol HFA (PROVENTIL HFA, VENTOLIN HFA) 90 mcg/actuation inhaler Inhale 2 puffs as instructed every 4 hours as needed for wheezing/shortness of breath. - Aspirin 81 mg tab Take 81 mg by mouth once daily. - CoQ10, Liposomal Ubiquinol, (COQMAX UBIQUINOL) 200 mg cap Take 200 mg by mouth once daily. - iv contrast (will be provided with radiology test) CTA ABD/PEL - No IV access, insert saline lock prior to the sedation, infusion, injection for imaging exam. Discontinue saline lock post exam. If Pt. has a central line or IVAD, may access for administration according to line specific nursing protocol. Once exam is complete flush line and de-access according to line specific nursing protocol in the CT contrast administration guidelines link. - FLUoxetine (PROZAC) 40 mg capsule Take 2 capsules by mouth once daily. - LORazepam (ATIVAN) 1 mg tablet Take 1 mg by mouth once daily as needed for anxiety. - cholecalciferol (VITAMIN D3) 1,000 unit tab tablet Take 2 tablets by mouth once daily. Problem List As Of Date 10/06/2024 Noted Resolved Bicuspid AV/AI.. 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] 07/31/2001 02/09/2017 Depressive disorder, not elsewhere classified [*07/31/2001 12/21/2015 Endometriosis of other specified sites [N80.8] 07/31/2001 02/09/2017 ESOPHAGEAL REFLUX [K21.9] 07/31/2001 5.2.1 CHRONIC POST TRAUMA H/A W/ MINOR HEAD TRA*05/19/2003 02/09/2017 Allergic Rhinitis [J30.9] 03/05/2009 Bulimia nervosa, unspecified severity (HCC) [F5*04/08/2009 Vitamin B12 Deficiency [E53.8] 06/23/2009 Dysmenorrhea [N94.6] Routine gynecological examination [Z01.419] 10/23/2012 02/09/2017 Tobacco abuse [Z72.0] 05/11/2021 History of endometriosis [Z87.42] 01/28/2015 MDD (major depressive disorder), recurrent epis*12/21/2015 Raynaud's disease without gangrene [I73.00] 01/14/2016 Fibromyalgia [M79.7] 01/17/2016 Migraine without aura and without status migrai*01/17/2016 Encounter for monitoring proton pump inhibitor *02/09/2017 05/11/2021 Bicuspid aortic valve (HCC) [Q23.81] 02/09/2017 Obesity, Class I, BMI 30-34.9 [E66.811] 02/09/2017 05/11/2021 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 [facility] 10-03-2024 Note HNO ID: [id number] Author: CALLIE SUGGS LPN Service: ? Author Type: LICENSED NURSE Type: Progress Notes Filed: 10/03/2024 09:37 Note Text: ED Follow-Up Note Provider Action / FYI: Call completed by: LASHON Patient seen in ED: Out of Network ED Contact made with Patient: No, left message. Callie Suggs LPN October 03, 2024 9:37 AM [facility] 10-02-2024 Note HNO ID: [id number] Author: CALLIE SUGGS LPN Service: ? Author Type: LICENSED NURSE Type: Progress Notes Filed: 10/02/2024 14:46 Note Text: ED Follow-Up Note Provider Action / FYI: Call completed by: LASHON Patient seen in ED: Out of Network ED Contact made with Patient: No, left message. Callie Suggs LPN October 02, 2024 2:46 PM [facility] 10-02-2024 Note Patient Outreach (AG FAMPLE) PAUL DAVENPORT ([id number]) 1975 F Date Time Provider Department 10/02/24 VASQUEZ BRUSH During your visit today, we recorded the following information about you: Callie Suggs LPN 10/02/2024 2:46 PM Signed ED Follow-Up Note Provider Action / FYI: Call completed by: LASHON Patient seen in ED: Out of Network ED Contact made with Patient: No, left message. Callie Suggs LPN October 02, 2024 2:46 PM Callie Suggs LPN 10/03/2024 9:37 AM Signed ED Follow-Up Note Provider Action / FYI: Call completed by: LASHON Patient seen in ED: Out of Network ED Contact made with Patient: No, left message. Callie Suggs LPN October 03, 2024 9:37 AM Allergies As of Date: 10/02/2024 Noted Allergy Reaction DUST 01/27/2009 Comments: extreme coughing, dry hives METFORMIN 04/09/2023 14 - Other: See Comments Date Reviewed: 09/18/2024 Reviewed by: Meryl Lang MA - Fully Assessed Reason for Visit: ED Follow-up [821] Cmt: Katie 09/28/2024 Prescriptions as of 10/03/2024 - propranolol (INDERAL) 20 mg tablet Take 1 tablet by mouth two times a day. - nystatin (MYCOSTATIN) cream Apply to affected area two times a day. - torsemide (DEMADEX) 20 mg tablet Take one tablet twice a day for 3 days (8am and 1pm), THEN take 1 tablet once daily. - potassium chloride (K-TAB) 10 mEq tablet Take one tablet daily twice a day for 3 days, then once daily - esomeprazole (NEXIUM) 40 mg capsule Take 1 capsule by mouth two times a day. - fluticasone (FLONASE) 50 mcg/actuation nasal spray Use 2 sprays in each nostril once daily as needed for cold/allergy symptoms. - fluticasone-salmeterol (ADVAIR, WIXELA) 250-50 mcg/dose inhaler Inhale 1 puff as instructed two times a day. - Magnesium 250 mg tab Take 250 mg by mouth once daily. - thiamine (VITAMIN B1) 100 mg tablet Take 100 mg by mouth once daily. - ARIPiprazole (ABILIFY) 15 mg tablet Take 15 mg by mouth once daily. - levonorgestrel (MIRENA) 21 mcg/24hr (up to 8 yrs) 52 mg IUD 1 each by INTRAUTERINE route one time only. - acetaminophen (TYLENOL) 325 mg tablet 2 tablets by ORAL/FEEDING TUBE route every 4 hours as needed for pain. - clopidogrel (PLAVIX) 75 mg tablet Take 1 tablet by mouth once daily. - senna-docusate (SENNA-S) 8.6-50 mg per tablet Take 2 tablets by mouth two times a day. - albuterol HFA (PROVENTIL HFA, VENTOLIN HFA) 90 mcg/actuation inhaler Inhale 2 puffs as instructed every 4 hours as needed for wheezing/shortness of breath. - Aspirin 81 mg tab Take 81 mg by mouth once daily. - CoQ10, Liposomal Ubiquinol, (COQMAX UBIQUINOL) 200 mg cap Take 200 mg by mouth once daily. - iv contrast (will be provided with radiology test) CTA ABD/PEL - No IV access, insert saline lock prior to the sedation, infusion, injection for imaging exam. Discontinue saline lock post exam. If Pt. has a central line or IVAD, may access for administration according to line specific nursing protocol. Once exam is complete flush line and de-access according to line specific nursing protocol in the CT contrast administration guidelines link. - FLUoxetine (PROZAC) 40 mg capsule Take 2 capsules by mouth once daily. - LORazepam (ATIVAN) 1 mg tablet Take 1 mg by mouth once daily as needed for anxiety. - cholecalciferol (VITAMIN D3) 1,000 unit tab tablet Take 2 tablets by mouth once daily. Problem List As Of Date 10/02/2024 Noted Resolved Bicuspid AV/AI.. 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] 07/31/2001 02/09/2017 Depressive disorder, not elsewhere classified [*07/31/2001 12/21/2015 Endometriosis of other specified sites [N80.8] 07/31/2001 02/09/2017 ESOPHAGEAL REFLUX [K21.9] 07/31/2001 5.2.1 CHRONIC POST TRAUMA H/A W/ MINOR HEAD TRA*05/19/2003 02/09/2017 Allergic Rhinitis [J30.9] 03/05/2009 Bulimia nervosa, unspecified severity (HCC) [F5*04/08/2009 Vitamin B12 Deficiency [E53.8] 06/23/2009 Dysmenorrhea [N94.6] Routine gynecological examination [Z01.419] 10/23/2012 02/09/2017 Tobacco abuse [Z72.0] 05/11/2021 History of endometriosis [Z87.42] 01/28/2015 MDD (major depressive disorder), recurrent epis*12/21/2015 Raynaud's disease without gangrene [I73.00] 01/14/2016 Fibromyalgia [M79.7] 01/17/2016 Migraine without aura and without status migrai*01/17/2016 Encounter for monitoring proton pump inhibitor *02/09/2017 05/11/2021 Bicuspid aortic valve (HCC) [Q23.81] 02/09/2017 Obesity, Class I, BMI 30-34.9 [E66.811] 02/09/2017 05/11/2021 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 [facility] 09-29-2024 Emergency department Note Pt was educated on the importance of wearing her supportive bra that she was given after her open heart surgery. Pt states that she did not know that she was supposed to still wear that. Pt was also educated on alternative therapy to pain medications. Pt voiced understanding. Pt was given an ice pack also. Jessica Miles RN 09/29/24 0448 [facility] 09-29-2024 Emergency department Note Pt was educated on the importance of wearing her supportive bra that she was given after her open heart surgery. Pt states that she did not know that she was supposed to still wear that. Pt was also educated on alternative therapy to pain medications. Pt voiced understanding. Pt was given an ice pack also. Jessica Miles RN 09/29/24 0448 History/Exam limitations: none HPI was provided by patient HPI: Chief Complaint Patient presents with Chest Pain Pt had open heart surgery 2 weeks ago and states she is out of pain medication and the pain is worsening Paul Davenport is a 49 y.o. female presents with chief complaint of chest pain as noted above. States she has been out of pain since then and on oxycodone at home but pain is pleuritic. She is on Plavix has been compliant. States the oxy has not been helping. States procedure was performed at the [facility]. States is because since that she was discharged. ROS:All other review of systems are negative except as noted above and HPI or ROS. (Bolded if positive) CONSTITUTIONAL fever, chills. EYES: blurry vision, change in vision ENT sore throat, congestion, rhinorrhea. CARDIOVASCULAR palpitations, swelling, chest pain RESPIRATORY cough, shortness of breath, wheeze GI abdominal pain, nausea, vomiting, diarrhea. GENITOURINARY dysuria, hematuria, frequency. MUSCULOSKELETAL deformity, neck pain. SKIN rash, color change. NEUROLOGIC headache, numbness, focal weakness. Physical exam General/Constitutional: Alert, oriented , cooperative, in no acute distress. Head: normocephalic, atraumatic Skin: Intact, dry skin, sternotomy wound well-approximated no drainage or discharge or induration. No tender palpation to area Eyes: PERRL, EOMs intact, Conjunctiva pink with no erythema or exudates. No scleral icterus. ENT: No external deformities. Nares patent, mucus membranes moist. Pharynx clear, uvula midline. Neck: Supple, without meningismus. Trachea at midline. No lymphadenopathy. No JVD Pulmonary: Clear bilaterally. No crackles, rhonchi or wheezing. Cardiac: Regular rate and regular rhythm. Pulses 2+ throughout upper and lower extremities. No murmur, gallop, rub. Abdomen: Soft, nontender, active bowel sounds. No palpable organomegaly. No rebound or guarding. No CVA tenderness. No pulsatile mass Musculoskeletal: Full range of motion, no deformity. Pulses full and equal. Non-edematous. Neurological: Alert and oriented to person place and time. no focal neuro deficits. Sensation intact throughout. Neurovascular intact in bilateral upper and lower extremities Psychiatric: Appropriate mood and affect. Calm. Past Medical History She has no past medical history on file. Surgical History She has no past surgical history on file. Social History She has no history on file for tobacco use, alcohol use, and drug use. Current Outpatient Medications Medication Instructions oxyCODONE-acetaminophen (Percocet) 5-325 mg tablet 1 tablet, oral, Every 6 hours PRN RX Allergies[1] ED Triage Vitals [09/28/24 2341] Temperature Heart Rate Respirations BP 36.5 C (97.7 F) 95 18 (!) 152/108 Pulse Ox Temp src Heart Rate Source Patient Position 98 % -- -- -- BP Location FiO2 (%) -- -- Labs and Imaging CT angio chest for pulmonary embolism Final Result 1. No acute pulmonary embolism to the segmental arterial level. 2. Postsurgical changes of aortic valve repair. Midline sternotomy wires noted. There is mild retrosternal soft tissue stranding and fluid likely and mild stranding of the subcutaneous soft tissues overlying the sternum. Findings likely relate to recent surgery. A discrete rim enhancing fluid collection is not identified. No locules of free air are present. 3. Additional findings as noted above. MACRO: None Signed by: Prasanth Villavicencio 09/29/2024 2:13 AM Dictation workstation: [id number] Labs Reviewed CBC WITH AUTO DIFFERENTIAL - Abnormal Result Value WBC 8.3 nRBC 0.0 RBC 3.69 (*) Hemoglobin 10.4 (*) Hematocrit 32.8 (*) MCV 89 MCH 28.2 MCHC 31.7 (*) RDW 14.4 Platelets 531 (*) Neutrophils % 64.2 Immature Granulocytes %, Automated 0.5 Lymphocytes % 25.5 Monocytes % 5.9 Eosinophils % 3.7 Basophils % 0.2 Neutrophils Absolute 5.32 Immature Granulocytes Absolute, Automated 0.04 Lymphocytes Absolute 2.12 Monocytes Absolute 0.49 Eosinophils Absolute 0.31 Basophils Absolute 0.02 BASIC METABOLIC PANEL - Abnormal Glucose 139 (*) Sodium 138 Potassium 3.7 Chloride 102 Bicarbonate 27 Anion Gap 13 Urea Nitrogen 14 Creatinine 0.69 eGFR >90 Calcium 8.9 B-TYPE NATRIURETIC PEPTIDE - Abnormal BNP 143 (*) Narrative: <100 pg/mL - Heart failure unlikely 100-299 pg/mL - Intermediate probability of acute heart failure exacerbation. Correlate with clinical context and patient history. >=300 pg/mL - Heart Failure likely. Correlate with clinical context and patient history. BNP testing is performed using different testing methodology at [facility] than at other [facility]. Direct result comparisons should only be made within the same method. INFLUENZA A AND B PCR - Normal Flu A Result Not Detected Flu B Result Not Detected Narrative: This assay is an in vitro diagnostic multiplex nucleic acid amplification test for the detection and discrimination of Influenza A & B from nasopharyngeal specimens, and has been validated for use at [facility]. Negative results do not preclude Influenza A/B infections, and should not be used as the sole basis for diagnosis, treatment, or other management decisions. If Influenza A/B and RSV PCR results are negative, testing for Parainfluenza virus, Adenovirus and Metapneumovirus is routinely performed for [facility] pediatric oncology and intensive care inpatients, and is available on other patients by placing an add-on request. SARS-COV-2 PCR - Normal Coronavirus 2018, PCR Not Detected Narrative: This assay is an FDA-cleared, in vitro diagnostic nucleic acid amplification test for the qualitative detection and differentiation of SARS CoV-2 from nasopharyngeal specimens collected from individuals with signs and symptoms of respiratory tract infections, and has been validated for use at [facility]. Negative results do not preclude COVID-19 infections and should not be used as the sole basis for diagnosis, treatment, or other management decisions. Testing for SARS CoV-2 is recommended only for patients who meet current clinical and/or epidemiological criteria defined by federal, state, or local public health directives. MAGNESIUM - Normal Magnesium 2.04 SERIAL TROPONIN-INITIAL - Normal Troponin I, High Sensitivity 10 Narrative: Less than 99th percentile of normal range cutoff- Female and children under 18 years old <14 ng/L; Male <21 ng/L: Negative Repeat testing should be performed if clinically indicated. Female and children under 18 years old 14-50 ng/L; Male 21-50 ng/L: Consistent with possible cardiac damage and possible increased clinical risk. Serial measurements may help to assess extent of myocardial damage. >50 ng/L: Consistent with cardiac damage, increased clinical risk and myocardial infarction. Serial measurements may help assess extent of myocardial damage. NOTE: Children less than 1 year old may have higher baseline troponin levels and results should be interpreted in conjunction with the overall clinical context. NOTE: Troponin I testing is performed using a different testing methodology at [facility]. Direct result comparisons should only be made within the same method. SERIAL TROPONIN, 1 HOUR - Normal Troponin I, High Sensitivity 10 Narrative: Less than 99th percentile of normal range cutoff- Female and children under 18 years old <14 ng/L; Male <21 ng/L: Negative Repeat testing should be performed if clinically indicated. Female and children under 18 years old 14-50 ng/L; Male 21-50 ng/L: Consistent with possible cardiac damage and possible increased clinical risk. Serial measurements may help to assess extent of myocardial damage. >50 ng/L: Consistent with cardiac damage, increased clinical risk and myocardial infarction. Serial measurements may help assess extent of myocardial damage. NOTE: Children less than 1 year old may have higher baseline troponin levels and results should be interpreted in conjunction with the overall clinical context. NOTE: Troponin I testing is performed using a different testing methodology at [facility]. Direct result comparisons should only be made within the same method. TROPONIN SERIES- (INITIAL, 1 HR) Narrative: The following orders were created for panel order Troponin I Series, High Sensitivity (0, 1 HR). Procedure Abnormality Status --------- ------ Troponin I, High Sensiti...[[id number]] Normal Final result Troponin, High Sensitivi...[[id number]] Normal Final result Please view results for these tests on the individual orders. Procedure Procedures Medical Decision Making: External Records Reviewed: I reviewed recent and relevant outside records ED Course as of 09/29/242 SunSep 29, 2024 0012 EKG interpreted by me shows number sinus rhythm no STEMI T wave abnormality in lateral leads rate 89 parable 162 QRS 90 QTc 457. No prior EKG for comparison [WL] 0206 BNP(!): 143 [WL] 0206 Troponin I, High Sensitivity: 10 [WL] 0318 Given patient's care was at the [facility] did offer for transfer but she does not want this and is refusing. Despite given the morphine still having pain we will give a dose of Dilaudid [WL] 0428 discussed with hospital service who came evaluated patient patient admitted she ran out of oxycodone and Geovanny does not want admitted. 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 States her pain is more so on her chest wall and worse when she lifts her arms. [WL] 0431 Patient given strict return precautions. Chest pain-free on discharge. Plan be for her to follow-up with her solar manager. Give her a few days Percocet to go home with for breakthrough pain because she states that on reevaluation she ran out and that was the reason she came here to the ER [WL] ED Course User Index [WL] Riky Chew DO Diagnoses as of 09/29/24 0432 Chest pain, unspecified type CT angio chest for pulmonary embolism Final Result 1. No acute pulmonary embolism to the segmental arterial level. 2. Postsurgical changes of aortic valve repair. Midline sternotomy wires noted. There is mild retrosternal soft tissue stranding and fluid likely and mild stranding of the subcutaneous soft tissues overlying the sternum. Findings likely relate to recent surgery. A discrete rim enhancing fluid collection is not identified. No locules of free air are present. 3. Additional findings as noted above. MACRO: None Signed by: Prasanth Villavicencio 09/29/2024 2:13 AM Dictation workstation: [id number] Labs Reviewed CBC WITH AUTO DIFFERENTIAL - Abnormal Result Value WBC 8.3 nRBC 0.0 RBC 3.69 (*) Hemoglobin 10.4 (*) Hematocrit 32.8 (*) MCV 89 MCH 28.2 MCHC 31.7 (*) RDW 14.4 Platelets 531 (*) Neutrophils % 64.2 Immature Granulocytes %, Automated 0.5 Lymphocytes % 25.5 Monocytes % 5.9 Eosinophils % 3.7 Basophils % 0.2 Neutrophils Absolute 5.32 Immature Granulocytes Absolute, Automated 0.04 Lymphocytes Absolute 2.12 Monocytes Absolute 0.49 Eosinophils Absolute 0.31 Basophils Absolute 0.02 BASIC METABOLIC PANEL - Abnormal Glucose 139 (*) Sodium 138 Potassium 3.7 Chloride 102 Bicarbonate 27 Anion Gap 13 Urea Nitrogen 14 Creatinine 0.69 eGFR >90 Calcium 8.9 B-TYPE NATRIURETIC PEPTIDE - Abnormal BNP 143 (*) Narrative: <100 pg/mL - Heart failure unlikely 100-299 pg/mL - Intermediate probability of acute heart failure exacerbation. Correlate with clinical context and patient history. >=300 pg/mL - Heart Failure likely. Correlate with clinical context and patient history. BNP testing is performed using different testing methodology at [facility]. Direct result comparisons should only be made within the same method. INFLUENZA A AND B PCR - Normal Flu A Result Not Detected Flu B Result Not Detected Narrative: This assay is an in vitro diagnostic multiplex nucleic acid amplification test for the detection and discrimination of Influenza A & B from nasopharyngeal specimens, and has been validated for use at [facility]. Negative results do not preclude Influenza A/B infections, and should not be used as the sole basis for diagnosis, treatment, or other management decisions. If Influenza A/B and RSV PCR results are negative, testing for Parainfluenza virus, Adenovirus and Metapneumovirus is routinely performed for [facility] pediatric oncology and intensive care inpatients, and is available on other patients by placing an add-on request. SARS-COV-2 PCR - Normal Coronavirus 2018, PCR Not Detected Narrative: This assay is an FDA-cleared, in vitro diagnostic nucleic acid amplification test for the qualitative detection and differentiation of SARS CoV-2 from nasopharyngeal specimens collected from individuals with signs and symptoms of respiratory tract infections, and has been validated for use at [facility]. Negative results do not preclude COVID-19 infections and should not be used as the sole basis for diagnosis, treatment, or other management decisions. Testing for SARS CoV-2 is recommended only for patients who meet current clinical and/or epidemiological criteria defined by federal, state, or local public health directives. MAGNESIUM - Normal Magnesium 2.04 SERIAL TROPONIN-INITIAL - Normal Troponin I, High Sensitivity 10 Narrative: Less than 99th percentile of normal range cutoff- Female and children under 18 years old <14 ng/L; Male <21 ng/L: Negative Repeat testing should be performed if clinically indicated. Female and children under 18 years old 14-50 ng/L; Male 21-50 ng/L: Consistent with possible cardiac damage and possible increased clinical risk. Serial measurements may help to assess extent of myocardial damage. >50 ng/L: Consistent with cardiac damage, increased clinical risk and myocardial infarction. Serial measurements may help assess extent of myocardial damage. NOTE: Children less than 1 year old may have higher baseline troponin levels and results should be interpreted in conjunction with the overall clinical context. NOTE: Troponin I testing is performed using a different testing methodology at [facility] than at other [facility]. Direct result comparisons should only be made within the same method. SERIAL TROPONIN, 1 HOUR - Normal Troponin I, High Sensitivity 10 Narrative: Less than 99th percentile of normal range cutoff- Female and children under 18 years old <14 ng/L; Male <21 ng/L: Negative Repeat testing should be performed if clinically indicated. Female and children under 18 years old 14-50 ng/L; Male 21-50 ng/L: Consistent with possible cardiac damage and possible increased clinical risk. Serial measurements may help to assess extent of myocardial damage. >50 ng/L: Consistent with cardiac damage, increased clinical risk and myocardial infarction. Serial measurements may help assess extent of myocardial damage. NOTE: Children less than 1 year old may have higher baseline troponin levels and results should be interpreted in conjunction with the overall clinical context. NOTE: Troponin I testing is performed using a different testing methodology at [facility] than at other [facility]. Direct result comparisons should only be made within the same method. TROPONIN SERIES- (INITIAL, 1 HR) Narrative: The following orders were created for panel order Troponin I Series, High Sensitivity (0, 1 HR). Procedure Abnormality Status --------- ------ Troponin I, High Sensiti...[[id number]] Normal Final result Troponin, High Sensitivi...[[id number]] Normal Final result Please view results for these tests on the individual orders. The patient presented for evaluation of chest pain. Differential included but not limited to ACS, arrhythmia, pneumothorax, dissection, aneurysm, electrolyte abnormality, musculoskeletal pain, PE, abscess. Imaging studies if performed were independently reviewed and interpreted by myself and confirmed by radiologist. Patient was treated symptomatically. The patient is in agreement with the plan and given instructions. They were chest pain-free prior to discharge. They are given strict return precautions. I discussed the differential, results and discharge plan with the patient and/or family/friend/caregiver if present. I emphasized the importance of follow-up with the physician I referred them to in the timeframe recommended. I explained reasons for the patient to return to the Emergency Department. Additional verbal discharge instructions were also given and discussed with the patient to supplement those generated by the EMR. We also discussed medications that were prescribed (if any) including common side effects and interactions. The patient was advised to abstain from driving, operating heavy machinery or making significant decisions while taking medications such as opiates and muscle relaxers that may impair this. All questions were addressed. They understand return precautions and discharge instructions. The patient and/or family/friend/caregiver expressed understanding. Note: This note was dictated by speech recognition. Minor errors in choir teacher may be present. [1] Allergies Allergen Reactions Metformin Unknown Riky Chew DO 09/29/24 0432 documented in this encounter [facility] Work Phone: 09-29-2024 Hospital Discharge instructions Riky Chew DO - 09/29/2024 4:24 AM EDT Call your solar manager tomorrow to follow-up. The following attachments cannot be sent through Care Everywhere.Managing acute pain at home (Italian)documented in this encounter [facility] Work Phone: 09-28-2024 Physician Emergency department Note History/Exam limitations: none HPI was provided by patient HPI: Chief Complaint Patient presents with Chest Pain Pt had open heart surgery 2 weeks ago and states she is out of pain medication and the pain is worsening Paul Davenport is a 49 y.o. female presents with chief complaint of chest pain as noted above. States she has been out of pain since then and on oxycodone at home but pain is pleuritic. She is on Plavix has been compliant. States the oxy has not been helping. States procedure was performed at the [facility]. States is because since that she was discharged. ROS:All other review of systems are negative except as noted above and HPI or ROS. (Bolded if positive) CONSTITUTIONAL fever, chills. EYES: blurry vision, change in vision ENT sore throat, congestion, rhinorrhea. CARDIOVASCULAR palpitations, swelling, chest pain RESPIRATORY cough, shortness of breath, wheeze GI abdominal pain, nausea, vomiting, diarrhea. GENITOURINARY dysuria, hematuria, frequency. MUSCULOSKELETAL deformity, neck pain. SKIN rash, color change. NEUROLOGIC headache, numbness, focal weakness. Physical exam General/Constitutional: Alert, oriented , cooperative, in no acute distress. Head: normocephalic, atraumatic Skin: Intact, dry skin, sternotomy wound well-approximated no drainage or discharge or induration. No tender palpation to area Eyes: PERRL, EOMs intact, Conjunctiva pink with no erythema or exudates. No scleral icterus. ENT: No external deformities. Nares patent, mucus membranes moist. Pharynx clear, uvula midline. Neck: Supple, without meningismus. Trachea at midline. No lymphadenopathy. No JVD Pulmonary: Clear bilaterally. No crackles, rhonchi or wheezing. Cardiac: Regular rate and regular rhythm. Pulses 2+ throughout upper and lower extremities. No murmur, gallop, rub. Abdomen: Soft, nontender, active bowel sounds. No palpable organomegaly. No rebound or guarding. No CVA tenderness. No pulsatile mass Musculoskeletal: Full range of motion, no deformity. Pulses full and equal. Non-edematous. Neurological: Alert and oriented to person place and time. no focal neuro deficits. Sensation intact throughout. Neurovascular intact in bilateral upper and lower extremities Psychiatric: Appropriate mood and affect. Calm. Past Medical History She has no past medical history on file. Surgical History She has no past surgical history on file. Social History She has no history on file for tobacco use, alcohol use, and drug use. Current Outpatient Medications Medication Instructions oxyCODONE-acetaminophen (Percocet) 5-325 mg tablet 1 tablet, oral, Every 6 hours PRN RX Allergies[1] ED Triage Vitals [09/28/24 2341] Temperature Heart Rate Respirations BP 36.5 C (97.7 F) 95 18 (!) 152/108 Pulse Ox Temp src Heart Rate Source Patient Position 98 % -- -- -- BP Location FiO2 (%) -- -- Labs and Imaging CT angio chest for pulmonary embolism Final Result 1. No acute pulmonary embolism to the segmental arterial level. 2. Postsurgical changes of aortic valve repair. Midline sternotomy wires noted. There is mild retrosternal soft tissue stranding and fluid likely and mild stranding of the subcutaneous soft tissues overlying the sternum. Findings likely relate to recent surgery. A discrete rim enhancing fluid collection is not identified. No locules of free air are present. 3. Additional findings as noted above. MACRO: None Signed by: Prasanth Villavicencio 09/29/2024 2:13 AM Dictation workstation: [id number] Labs Reviewed CBC WITH AUTO DIFFERENTIAL - Abnormal Result Value WBC 8.3 nRBC 0.0 RBC 3.69 (*) Hemoglobin 10.4 (*) Hematocrit 32.8 (*) MCV 89 MCH 28.2 MCHC 31.7 (*) RDW 14.4 Platelets 531 (*) Neutrophils % 64.2 Immature Granulocytes %, Automated 0.5 Lymphocytes % 25.5 Monocytes % 5.9 Eosinophils % 3.7 Basophils % 0.2 Neutrophils Absolute 5.32 Immature Granulocytes Absolute, Automated 0.04 Lymphocytes Absolute 2.12 Monocytes Absolute 0.49 Eosinophils Absolute 0.31 Basophils Absolute 0.02 BASIC METABOLIC PANEL - Abnormal Glucose 139 (*) Sodium 138 Potassium 3.7 Chloride 102 Bicarbonate 27 Anion Gap 13 Urea Nitrogen 14 Creatinine 0.69 eGFR >90 Calcium 8.9 B-TYPE NATRIURETIC PEPTIDE - Abnormal BNP 143 (*) Narrative: <100 pg/mL - Heart failure unlikely 100-299 pg/mL - Intermediate probability of acute heart failure exacerbation. Correlate with clinical context and patient history. >=300 pg/mL - Heart Failure likely. Correlate with clinical context and patient history. BNP testing is performed using different testing methodology at [facility]. Direct result comparisons should only be made within the same method. INFLUENZA A AND B PCR - Normal Flu A Result Not Detected Flu B Result Not Detected Narrative: This assay is an in vitro diagnostic multiplex nucleic acid amplification test for the detection and discrimination of Influenza A & B from nasopharyngeal specimens, and has been validated for use at [facility]. Negative results do not preclude Influenza A/B infections, and should not be used as the sole basis for diagnosis, treatment, or other management decisions. If Influenza A/B and RSV PCR results are negative, testing for Parainfluenza virus, Adenovirus and Metapneumovirus is routinely performed for [facility] pediatric oncology and intensive care inpatients, and is available on other patients by placing an add-on request. SARS-COV-2 PCR - Normal Coronavirus 2019, PCR Not Detected Narrative: This assay is an FDA-cleared, in vitro diagnostic nucleic acid amplification test for the qualitative detection and differentiation of SARS CoV-2 from nasopharyngeal specimens collected from individuals with signs and symptoms of respiratory tract infections, and has been validated for use at [facility]. Negative results do not preclude COVID-19 infections and should not be used as the sole basis for diagnosis, treatment, or other management decisions. Testing for SARS CoV-2 is recommended only for patients who meet current clinical and/or epidemiological criteria defined by federal, state, or local public health directives. MAGNESIUM - Normal Magnesium 2.04 SERIAL TROPONIN-INITIAL - Normal Troponin I, High Sensitivity 10 Narrative: Less than 99th percentile of normal range cutoff- Female and children under 18 years old <14 ng/L; Male <21 ng/L: Negative Repeat testing should be performed if clinically indicated. Female and children under 18 years old 14-50 ng/L; Male 21-50 ng/L: Consistent with possible cardiac damage and possible increased clinical risk. Serial measurements may help to assess extent of myocardial damage. >50 ng/L: Consistent with cardiac damage, increased clinical risk and myocardial infarction. Serial measurements may help assess extent of myocardial damage. NOTE: Children less than 1 year old may have higher baseline troponin levels and results should be interpreted in conjunction with the overall clinical context. NOTE: Troponin I testing is performed using a different testing methodology at [facility]. Direct result comparisons should only be made within the same method. SERIAL TROPONIN, 1 HOUR - Normal Troponin I, High Sensitivity 10 Narrative: Less than 99th percentile of normal range cutoff- Female and children under 18 years old <14 ng/L; Male <21 ng/L: Negative Repeat testing should be performed if clinically indicated. Female and children under 18 years old 14-50 ng/L; Male 21-50 ng/L: Consistent with possible cardiac damage and possible increased clinical risk. Serial measurements may help to assess extent of myocardial damage. >50 ng/L: Consistent with cardiac damage, increased clinical risk and myocardial infarction. Serial measurements may help assess extent of myocardial damage. NOTE: Children less than 1 year old may have higher baseline troponin levels and results should be interpreted in conjunction with the overall clinical context. NOTE: Troponin I testing is performed using a different testing methodology at [facility] than at other [facility]. Direct result comparisons should only be made within the same method. TROPONIN SERIES- (INITIAL, 1 HR) Narrative: The following orders were created for panel order Troponin I Series, High Sensitivity (0, 1 HR). Procedure Abnormality Status --------- ------ Troponin I, High Sensiti...[[id number]] Normal Final result Troponin, High Sensitivi...[[id number]] Normal Final result Please view results for these tests on the individual orders. Procedure Procedures Medical Decision Making: External Records Reviewed: I reviewed recent and relevant outside records ED Course as of 09/29/24 0432 SunSep 29, 2024 0012 EKG interpreted by me shows number sinus rhythm no STEMI T wave abnormality in lateral leads rate 89 parable 162 QRS 90 QTc 457. No prior EKG for comparison [WL] 0206 BNP(!): 143 [WL] 0206 Troponin I, High Sensitivity: 10 [WL] 0318 Given patient's care was at the [facility] did offer for transfer but she does not want this and is refusing. Despite given the morphine still having pain we will give a dose of Dilaudid [WL] 0428 discussed with hospital service who came evaluated patient patient admitted she ran out of oxycodone and Geovanny does not want admitted. 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 States her pain is more so on her chest wall and worse when she lifts her arms. [WL] 0431 Patient given strict return precautions. Chest pain-free on discharge. Plan be for her to follow-up with her solar manager. Give her a few days Percocet to go home with for breakthrough pain because she states that on reevaluation she ran out and that was the reason she came here to the ER [WL] ED Course User Index [WL] Riky Chew DO Diagnoses as of 09/29/24 0432 Chest pain, unspecified type CT angio chest for pulmonary embolism Final Result 1. No acute pulmonary embolism to the segmental arterial level. 2. Postsurgical changes of aortic valve repair. Midline sternotomy wires noted. There is mild retrosternal soft tissue stranding and fluid likely and mild stranding of the subcutaneous soft tissues overlying the sternum. Findings likely relate to recent surgery. A discrete rim enhancing fluid collection is not identified. No locules of free air are present. 3. Additional findings as noted above. MACRO: None Signed by: Prasanth Villavicencio 09/29/2024 2:13 AM Dictation workstation: [id number] Labs Reviewed CBC WITH AUTO DIFFERENTIAL - Abnormal Result Value WBC 8.3 nRBC 0.0 RBC 3.69 (*) Hemoglobin 10.4 (*) Hematocrit 32.8 (*) MCV 89 MCH 28.2 MCHC 31.7 (*) RDW 14.4 Platelets 531 (*) Neutrophils % 64.2 Immature Granulocytes %, Automated 0.5 Lymphocytes % 25.5 Monocytes % 5.9 Eosinophils % 3.7 Basophils % 0.2 Neutrophils Absolute 5.32 Immature Granulocytes Absolute, Automated 0.04 Lymphocytes Absolute 2.12 Monocytes Absolute 0.49 Eosinophils Absolute 0.31 Basophils Absolute 0.02 BASIC METABOLIC PANEL - Abnormal Glucose 139 (*) Sodium 138 Potassium 3.7 Chloride 102 Bicarbonate 27 Anion Gap 13 Urea Nitrogen 14 Creatinine 0.69 eGFR >90 Calcium 8.9 B-TYPE NATRIURETIC PEPTIDE - Abnormal BNP 143 (*) Narrative: <100 pg/mL - Heart failure unlikely 100-299 pg/mL - Intermediate probability of acute heart failure exacerbation. Correlate with clinical context and patient history. >=300 pg/mL - Heart Failure likely. Correlate with clinical context and patient history. BNP testing is performed using different testing methodology at [facility] than at other [facility]. Direct result comparisons should only be made within the same method. INFLUENZA A AND B PCR - Normal Flu A Result Not Detected Flu B Result Not Detected Narrative: This assay is an in vitro diagnostic multiplex nucleic acid amplification test for the detection and discrimination of Influenza A & B from nasopharyngeal specimens, and has been validated for use at [facility]. Negative results do not preclude Influenza A/B infections, and should not be used as the sole basis for diagnosis, treatment, or other management decisions. If Influenza A/B and RSV PCR results are negative, testing for Parainfluenza virus, Adenovirus and Metapneumovirus is routinely performed for [facility] pediatric oncology and intensive care inpatients, and is available on other patients by placing an add-on request. SARS-COV-2 PCR - Normal Coronavirus 2019, PCR Not Detected Narrative: This assay is an FDA-cleared, in vitro diagnostic nucleic acid amplification test for the qualitative detection and differentiation of SARS CoV-2 from nasopharyngeal specimens collected from individuals with signs and symptoms of respiratory tract infections, and has been validated for use at [facility]. Negative results do not preclude COVID-19 infections and should not be used as the sole basis for diagnosis, treatment, or other management decisions. Testing for SARS CoV-2 is recommended only for patients who meet current clinical and/or epidemiological criteria defined by federal, state, or local public health directives. MAGNESIUM - Normal Magnesium 2.04 SERIAL TROPONIN-INITIAL - Normal Troponin I, High Sensitivity 10 Narrative: Less than 99th percentile of normal range cutoff- Female and children under 18 years old <14 ng/L; Male <21 ng/L: Negative Repeat testing should be performed if clinically indicated. Female and children under 18 years old 14-50 ng/L; Male 21-50 ng/L: Consistent with possible cardiac damage and possible increased clinical risk. Serial measurements may help to assess extent of myocardial damage. >50 ng/L: Consistent with cardiac damage, increased clinical risk and myocardial infarction. Serial measurements may help assess extent of myocardial damage. NOTE: Children less than 1 year old may have higher baseline troponin levels and results should be interpreted in conjunction with the overall clinical context. NOTE: Troponin I testing is performed using a different testing methodology at [facility] than at other [facility]. Direct result comparisons should only be made within the same method. SERIAL TROPONIN, 1 HOUR - Normal Troponin I, High Sensitivity 10 Narrative: Less than 99th percentile of normal range cutoff- Female and children under 18 years old <14 ng/L; Male <21 ng/L: Negative Repeat testing should be performed if clinically indicated. Female and children under 18 years old 14-50 ng/L; Male 21-50 ng/L: Consistent with possible cardiac damage and possible increased clinical risk. Serial measurements may help to assess extent of myocardial damage. >50 ng/L: Consistent with cardiac damage, increased clinical risk and myocardial infarction. Serial measurements may help assess extent of myocardial damage. NOTE: Children less than 1 year old may have higher baseline troponin levels and results should be interpreted in conjunction with the overall clinical context. NOTE: Troponin I testing is performed using a different testing methodology at [facility] than at other [facility]. Direct result comparisons should only be made within the same method. TROPONIN SERIES- (INITIAL, 1 HR) Narrative: The following orders were created for panel order Troponin I Series, High Sensitivity (0, 1 HR). Procedure Abnormality Status --------- ------ Troponin I, High Sensiti...[[id number]] Normal Final result Troponin, High Sensitivi...[[id number]] Normal Final result Please view results for these tests on the individual orders. The patient presented for evaluation of chest pain. Differential included but not limited to ACS, arrhythmia, pneumothorax, dissection, aneurysm, electrolyte abnormality, musculoskeletal pain, PE, abscess. Imaging studies if performed were independently reviewed and interpreted by myself and confirmed by radiologist. Patient was treated symptomatically. The patient is in agreement with the plan and given instructions. They were chest pain-free prior to discharge. They are given strict return precautions. I discussed the differential, results and discharge plan with the patient and/or family/friend/caregiver if present. I emphasized the importance of follow-up with the physician I referred them to in the timeframe recommended. I explained reasons for the patient to return to the Emergency Department. Additional verbal discharge instructions were also given and discussed with the patient to supplement those generated by the EMR. We also discussed medications that were prescribed (if any) including common side effects and interactions. The patient was advised to abstain from driving, operating heavy machinery or making significant decisions while taking medications such as opiates and muscle relaxers that may impair this. All questions were addressed. They understand return precautions and discharge instructions. The patient and/or family/friend/caregiver expressed understanding. Note: This note was dictated by speech recognition. Minor errors in choir teacher may be present. [1] Allergies Allergen Reactions Metformin Unknown Riky Chew DO 09/29/24 0432 T [facility] Work Phone: 09-18-2024 Note [facility] 09-18-2024 Note [facility] 09-15-2024 Note HNO ID: [id number] Author: JOHNNA VELIZ RN Service: ? Author Type: Registered Nurse Type: Progress Notes Filed: 09/15/2024 09:55 Note Text: AG TRANSITIONAL CARE MANAGEMENT (TCM) FOLLOW-UP NOTE Provider Action/FYI: Patient identified by name and date of : YES Spoke to: patient Diagnosis: CHF Summary: Patient called and left message for clarification regarding Asprin dosing. Patient requesting return call with message left with instructions. Returned call to patient, no answer. Detailed message left reviewing messages from Dr Gabriel and Cardiology that patient should take ASA 81mg daily. Health leads screening tool questions performed? N/A N/A Concerns: medications Shank Archer plan for next outreach: Will follow-up later this week Signature: Johnna Veliz RN September 15, 2024 [facility] 09-15-2024 Note [facility] 09-15-2024 Note Patient Outreach (AG ACM) PAUL DAVENPORT ([id number]) 1975 F Date Time Provider Department 09/15/24 JOHNNA VELIZ [facility] During your visit today, we recorded the following information about you: Johnna Veliz RN 09/15/2024 9:55 AM Signed AG TRANSITIONAL CARE MANAGEMENT (TCM) FOLLOW-UP NOTE Provider Action/FYI: Patient identified by name and date of : YES Spoke to: patient Diagnosis: CHF Summary: Patient called and left message for clarification regarding Asprin dosing. Patient requesting return call with message left with instructions. Returned call to patient, no answer. Detailed message left reviewing messages from Dr Gabriel and Cardiology that patient should take ASA 81mg daily. Health leads screening tool questions performed? N/A N/A Concerns: medications Shank Archer plan for next outreach: Will follow-up later this week Signature: Johnna Veliz RN September 15, 2024 Allergies As of Date: 09/15/2024 Noted Allergy Reaction DUST 01/27/2009 Comments: extreme coughing, dry hives METFORMIN 04/09/2023 14 - Other: See Comments Date Reviewed: 09/09/2024 Reviewed by: Susana Harden RN - Fully Assessed Reason for Visit: Transition Of Care [4074] Cmt: Patient Call Prescriptions as of 09/15/2024 - ARIPiprazole (ABILIFY) 15 mg tablet Take 15 mg by mouth once daily. - levonorgestrel (MIRENA) 21 mcg/24hr (up to 8 yrs) 52 mg IUD 1 each by INTRAUTERINE route one time only. - acetaminophen (TYLENOL) 325 mg tablet 2 tablets by ORAL/FEEDING TUBE route every 4 hours as needed for pain. - clopidogrel (PLAVIX) 75 mg tablet Take 1 tablet by mouth once daily. - furosemide (LASIX) 20 mg tablet Take 1 tablet by mouth two times a day. - senna-docusate (SENNA-S) 8.6-50 mg per tablet Take 2 tablets by mouth two times a day. - oxyCODONE IR (ROXICODONE) 5 mg immediate release tablet 1 tablet by ORAL/FEEDING TUBE route every 6 hours as needed for up to 7 days. - albuterol HFA (PROVENTIL HFA, VENTOLIN HFA) 90 mcg/actuation inhaler Inhale 2 puffs as instructed every 4 hours as needed for wheezing/shortness of breath. - aspirin 325 mg tablet Take 325 mg by mouth one time only. - CoQ10, Liposomal Ubiquinol, (COQMAX UBIQUINOL) 200 mg cap Take 200 mg by mouth once daily. - iv contrast (will be provided with radiology test) CTA ABD/PEL - No IV access, insert saline lock prior to the sedation, infusion, injection for imaging exam. Discontinue saline lock post exam. If Pt. has a central line or IVAD, may access for administration according to line specific nursing protocol. Once exam is complete flush line and de-access according to line specific nursing protocol in the CT contrast administration guidelines link. - propranolol (INDERAL) 20 mg tablet Take 1 tablet by mouth two times a day. - FLUoxetine (PROZAC) 40 mg capsule Take 2 capsules by mouth once daily. - esomeprazole (NEXIUM) 40 mg capsule Take 1 capsule by mouth two times a day. - LORazepam (ATIVAN) 1 mg tablet Take 1 mg by mouth once daily as needed for anxiety. - cholecalciferol (VITAMIN D3) 1,000 unit tab tablet Take 2 tablets by mouth once daily. Problem List As Of Date 09/15/2024 Noted Resolved Bicuspid AV/AI.. 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] 07/31/2001 02/09/2017 Depressive disorder, not elsewhere classified [*07/31/2001 12/21/2015 Endometriosis of other specified sites [N80.8] 07/31/2001 02/09/2017 ESOPHAGEAL REFLUX [K21.9] 07/31/2001 5.2.1 CHRONIC POST TRAUMA H/A W/ MINOR HEAD TRA*05/19/2003 02/09/2017 Allergic Rhinitis [J30.9] 03/05/2009 Bulimia nervosa, unspecified severity (HCC) [F5*04/08/2009 Vitamin B12 Deficiency [E53.8] 06/23/2009 Dysmenorrhea [N94.6] Routine gynecological examination [Z01.419] 10/23/2012 02/09/2017 Tobacco abuse [Z72.0] 05/11/2021 History of endometriosis [Z87.42] 01/28/2015 MDD (major depressive disorder), recurrent epis*12/21/2015 Raynaud's disease without gangrene [I73.00] 01/14/2016 Fibromyalgia [M79.7] 01/17/2016 Migraine without aura and without status migrai*01/17/2016 Encounter for monitoring proton pump inhibitor *02/09/2017 05/11/2021 Bicuspid aortic valve (HCC) [Q23.81] 02/09/2017 Obesity, Class I, BMI 30-34.9 [E66.811] 02/09/2017 05/11/2021 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 [facility] 09-12-2024 Note [facility] 09-11-2024 Note HNO ID: [id number] Author: JOHNNA VELIZ RN Service: ? Author Type: Registered Nurse Type: Progress Notes Filed: 09/11/2024 13:17 Note Text: TRANSITIONAL CARE MANAGEMENT (TCM) COMMUNITY MONITORING PROGRAM - [place] Provider Action/FYI: SUMMARY: Pt discharged from [facility] on 09/10/24. Admitted for: Aortic Stenosis Patient seen Inpatient MEL Visit? No. Patient seen ICARE Program? No. Contact made with patient: Yes Patient declines scheduling TCM at this time. Has a follow up scheduled 09/18 with cardiology and PCP 10/28. Patient reports that she will be staying with her dad in [facility] to assist with care.Encouraged patient to report and changes in symptoms. Instructed patient to keep log of weight, blood pressure and heart rate daily. Patient verbalized understanding. Hi my name is Johnna Veliz RN and I am calling from the [facility] on behalf of your PCP, Vasquez Brush APRN.SCHOLARSHIP COUNSELOR I understand you were recently in the hospital so I am calling to check in with you to ensure you are feeling well now that you?re home. Do you mind if I ask you a few questions related to your hospital stay and well-being Yes Contact with patient post discharge, spoke to patient. Patient identified by name and . Do you feel your health is BETTER, WORSE, or the SAME since leaving the hospital? Better ACTION TAKEN: Patient indicated symptoms are better or same, no action required. Continue outreach. N/A MEDICATIONS: Many patients have questions or concerns about their medications once they are home. Do you have any questions about taking your medications or which medication you should be on? No Do you need any medication refills at this time, including any of the medications you might take only when needed? No ACTION TAKEN: No action required For RNs or Pharmacy completing outreach ONLY, was a medication review completed? Yes TCM pharmacist to complete SOCIAL: We would like to make sure you have what you need so that your basics needs are met - including your personal safety. HEALTH LEADS SCREENING TOOL QUESTIONS: Do you often feel you lack companionship? No Do you ever need help reading or understanding hospital materials? No In the last 12 months, have you changed how you take medications to save money? No In the past 12 months, has lack of transportation kept you from medical appointments, work or getting things you need like food, or supplies? No In the last 12 months, did you ever eat less than you felt you should because there wasn't enough money for food? No During the winter, do you anticipate having a problem paying your heating bill? No In the next 2 months, are you worried you might not have stable housing? No Would you like to speak with a social work customer care team coach to help give you support for any of these needs? No It can be normal to feel anxious or down during a time like this. Would you like to talk to a mental health professional about how you have been feeling? No ACTION TAKEN: No action taken DISCHARGE INTRUCTIONS: Your discharge instructions / After Visit Summary (AVS) are important in guiding you through the recovery process. Do you have any questions related to your discharge instructions? No Do you have all the necessary equipment and supplies at home? Yes ACTION TAKEN: No action required WRAP AROUND SERVICES: Primary Care first education/Where to go for Care Clinical Pharmacist referral Patient educated on importance of primary care provider follow up visit as well as specialty provider follow up visits as indicated. Inform the patient that if they have any questions or concerns prior to that appointment, to call their Primary Care Provider 's office right away. Primary care provider first education provided. I would like to help you schedule a hospital follow-up virtual or telephone visit with your PCP. ACTION TAKEN: TCM Primary Care Provider Visit Scheduled: No - Only wants to follow up with specialty. Your doctor would like us to remind you of the recommendations regarding the coronavirus (Covid19) outbreak: Avoid public places as much as possible. Avoid close contact (within 6 feet) with others you don't live with, especially if they are sick. Stay home if you are sick. Wash your hands regularly for at least 20 seconds with soap and water. Wear a cloth mask in public places to help reduce community spread. Do not go to your Doctor's office unless instructed to do so. For any non-emergency symptoms, call your Doctor's office to get instructions on how to manage (we might recommend a telephone or virtual visit). For emergency symptoms, proceed to Emergency Department as usual but inform them of cough and fever symptoms SOL if present (or call on the way if possible). Johnna Veliz RN [facility] 09-11-2024 Note [facility] 09-11-2024 Note [facility] 09-11-2024 Note Patient Outreach (AG ACM) PAUL DAVENPORT ([id number]) 1975 F Date Time Provider Department 09/11/24 JOHNNA VELIZ [facility] During your visit today, we recorded the following information about you: Johnna Veliz RN 09/11/2024 1:17 PM Signed TRANSITIONAL CARE MANAGEMENT (TCM) COMMUNITY MONITORING PROGRAM - [place] Provider Action/I: SUMMARY: Pt discharged from [facility] on 09/10/24. Admitted for: Aortic Stenosis Patient seen Inpatient MEL Visit? No. Patient seen ICARE Program? No. Contact made with patient: Yes Patient declines scheduling TCM at this time. Has a follow up scheduled 09/18 with cardiology and PCP 10/28. Patient reports that she will be staying with her dad in [facility] to assist with care.Encouraged patient to report and changes in symptoms. Instructed patient to keep log of weight, blood pressure and heart rate daily. Patient verbalized understanding. Hi my name is Johnna Veliz RN and I am calling from the [facility] on behalf of your PCP, Vasquez Brush APRN.SCHOLARSHIP COUNSELOR I understand you were recently in the hospital so I am calling to check in with you to ensure you are feeling well now that you?re home. Do you mind if I ask you a few questions related to your hospital stay and well-being Yes Contact with patient post discharge, spoke to patient. Patient identified by name and . Do you feel your health is BETTER, WORSE, or the SAME since leaving the hospital? Better ACTION TAKEN: Patient indicated symptoms are better or same, no action required. Continue outreach. N/A MEDICATIONS: Many patients have questions or concerns about their medications once they are home. Do you have any questions about taking your medications or which medication you should be on? No Do you need any medication refills at this time, including any of the medications you might take only when needed? No ACTION TAKEN: No action required For RNs or Pharmacy completing outreach ONLY, was a medication review completed? Yes TCM pharmacist to complete SOCIAL: We would like to make sure you have what you need so that your basics needs are met - including your personal safety. HEALTH LEADS SCREENING TOOL QUESTIONS: Do you often feel you lack companionship? No Do you ever need help reading or understanding hospital materials? No In the last 12 months, have you changed how you take medications to save money? No In the past 12 months, has lack of transportation kept you from medical appointments, work or getting things you need like food, or supplies? No In the last 12 months, did you ever eat less than you felt you should because there wasn't enough money for food? No During the winter, do you anticipate having a problem paying your heating bill? No In the next 2 months, are you worried you might not have stable housing? No Would you like to speak with a social work customer care team coach to help give you support for any of these needs? No It can be normal to feel anxious or down during a time like this. Would you like to talk to a mental health professional about how you have been feeling? No ACTION TAKEN: No action taken DISCHARGE INTRUCTIONS: Your discharge instructions / After Visit Summary (AVS) are important in guiding you through the recovery process. Do you have any questions related to your discharge instructions? No Do you have all the necessary equipment and supplies at home? Yes ACTION TAKEN: No action required WRAP AROUND SERVICES: Primary Care first education/Where to go for Care Clinical Pharmacist referral Patient educated on importance of primary care provider follow up visit as well as specialty provider follow up visits as indicated. Inform the patient that if they have any questions or concerns prior to that appointment, to call their Primary Care Provider 's office right away. Primary care provider first education provided. I would like to help you schedule a hospital follow-up virtual or telephone visit with your PCP. ACTION TAKEN: TCM Primary Care Provider Visit Scheduled: No - Only wants to follow up with specialty. Your doctor would like us to remind you of the recommendations regarding the coronavirus (Covid19) outbreak: Avoid public places as much as possible. Avoid close contact (within 6 feet) with others you don't live with, especially if they are sick. Stay home if you are sick. Wash your hands regularly for at least 20 seconds with soap and water. Wear a cloth mask in public places to help reduce community spread. Do not go to your Doctor's office unless instructed to do so. For any non-emergency symptoms, call your Doctor's office to get instructions on how to manage (we might recommend a telephone or virtual visit). For emergency symptoms, proceed to Emergency Department as usual but inform them of cough and fever symptom (more content not included)... [facility] 09-10-2024 Note [facility] 09-09-2024 Note [facility] 09-09-2024 Note [facility] 09-09-2024 Note [facility] 09-08-2024 Note [facility] 09-08-2024 Note [facility] 09-07-2024 Note [facility] 09-06-2024 Note [facility] 09-05-2024 Note [facility] 09-04-2024 Note [facility] 09-04-2024 Note [facility] 09-04-2024 Note [facility] 09-04-2024 Note [facility] 09-04-2024 Note [facility] 09-03-2024 Note [facility] 09-03-2024 Note [facility] 09-03-2024 Note [facility] 09-01-2024 Note [facility] 09-01-2024 Note [facility] 09-01-2024 Note [facility] 09-01-2024 Note [facility] 09-01-2024 Note [facility] 09-01-2024 Note [facility] 08-26-2024 Note HNO ID: [id number] Author: JOHNNA VELIZ RN Service: ? Author Type: Registered Nurse Type: Progress Notes Filed: 08/26/2024 10:31 Note Text: AG TRANSITIONAL CARE MANAGEMENT (TCM) FOLLOW-UP NOTE Provider Action/FYI: Patient identified by name and date of : YES Spoke to: patient Diagnosis: CHF Summary: Patient called to ensure phone number was updated. Patient's phone was turned off and patient requested home phone number removed. Chart updated. Patient reports that she has cardiac surgery scheduled 09/02. Reviewed CHF zones and encouraged patient to report any changes in symptoms. Patient verbalized understanding. Patient would like home care referral and assistance with meals after discharge from surgery. Health leads screening tool questions performed? N/A N/A Concerns: Shank Archer plan for next outreach: Will follow-up in 2 weeks Signature: Johnna Veliz RN August 26, 2024 [facility] 08-26-2024 Note Patient Outreach (AG ACM) PAUL DAVENPORT ([id number]) 1975 F Date Time Provider Department 08/26/24 JOHNNA VELIZ [facility] During your visit today, we recorded the following information about you: Johnna Veliz, RN 08/26/2024 10:31 AM Signed AG TRANSITIONAL CARE MANAGEMENT (TCM) FOLLOW-UP NOTE Provider Action/FYI: Patient identified by name and date of : YES Spoke to: patient Diagnosis: CHF Summary: Patient called to ensure phone number was updated. Patient's phone was turned off and patient requested home phone number removed. Chart updated. Patient reports that she has cardiac surgery scheduled 09/02. Reviewed CHF zones and encouraged patient to report any changes in symptoms. Patient verbalized understanding. Patient would like home care referral and assistance with meals after discharge from surgery. Health leads screening tool questions performed? N/A N/A Concerns: Shank Archer plan for next outreach: Will follow-up in 2 weeks Signature: Johnna Veliz RN August 26, 2024 Allergies As of Date: 08/26/2024 Noted Allergy Reaction DUST 01/27/2009 Comments: extreme coughing, dry hives METFORMIN 04/09/2023 14 - Other: See Comments Date Reviewed: 08/08/2024 Reviewed by: Mario Alberto Gr RN - Fully Assessed Reason for Visit: Transition Of Care [4074] Cmt: Patient Call Prescriptions as of 08/26/2024 - SUMAtriptan (IMITREX) 50 mg tablet Take 1 tablet by mouth as needed for migraine headache (see administration instructions). May repeat dose after 2 hours if needed. Maximum daily dose is 200 mg per day. - albuterol HFA (PROVENTIL HFA, VENTOLIN HFA) 90 mcg/actuation inhaler Inhale 2 puffs as instructed every 4 hours as needed for wheezing/shortness of breath. - fluticasone (FLONASE) 50 mcg/actuation nasal spray Use 1 spray in each nostril once daily. - methocarbamol (ROBAXIN) 500 mg tablet Take 1 tablet by mouth two times a day as needed. - fluticasone-salmeterol (WIXELA INHUB) 250-50 mcg/dose inhaler Inhale 1 puff as instructed two times a day. - metroNIDAZOLE (FLAGYL) 500 mg tablet Take 1 tablet by mouth three times a day for 10 days. - nystatin (MYCOSTATIN) cream Apply to affected area two times a day. - aspirin 325 mg tablet Take 325 mg by mouth one time only. - naproxen (NAPROSYN) 500 mg tablet Take 1 tablet by mouth two times a day as needed (FOR PAIN - TAKE WITH FOOD.). - pregabalin (LYRICA) 150 mg capsule Take 1 capsule by mouth two times a day for 30 days. - furosemide (LASIX) 40 mg tablet Take 1 tablet by mouth two times a day. - CoQ10, Liposomal Ubiquinol, (COQMAX UBIQUINOL) 200 mg cap Take 20 mg by mouth once daily. - iv contrast (will be provided with radiology test) CTA ABD/PEL - No IV access, insert saline lock prior to the sedation, infusion, injection for imaging exam. Discontinue saline lock post exam. If Pt. has a central line or IVAD, may access for administration according to line specific nursing protocol. Once exam is complete flush line and de-access according to line specific nursing protocol in the CT contrast administration guidelines link. - ARIPiprazole (ABILIFY) 10 mg tablet Take 1 tab by mouth once a day in the morning for agitation - propranolol (INDERAL) 20 mg tablet Take 1 tablet by mouth two times a day. - FLUoxetine (PROZAC) 40 mg capsule Take 2 capsules by mouth once daily. - esomeprazole (NEXIUM) 40 mg capsule Take 1 capsule by mouth two times a day. - polyethylene glycol 3350 (MIRALAX) 17 gram packet Take 17 g by mouth once daily. Dissolve dose in 4 - 8 ounces of liquid and take as directed. - LORazepam (ATIVAN) 1 mg tablet Take 1 mg by mouth once daily as needed for anxiety. - cholecalciferol (VITAMIN D3) 1,000 unit tab tablet Take 2 tablets by mouth once daily. - levonorgestrel (MIRENA) 20 mcg/24 hr (5 years) IUD 1 Each by INTRAUTERINE route one time only. Problem List As Of Date 08/26/2024 Noted Resolved Bicuspid AV/AI.. 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] 07/31/2001 02/09/2017 Depressive disorder, not elsewhere classified [*07/31/2001 12/21/2015 Endometriosis of other specified sites [N80.8] 07/31/2001 02/09/2017 ESOPHAGEAL REFLUX [K21.9] 07/31/2001 5.2.1 CHRONIC POST TRAUMA H/A W/ MINOR HEAD TRA*05/19/2003 02/09/2017 Allergic Rhinitis [J30.9] 03/05/2009 Bulimia nervosa, unspecified severity (HCC) [F5*04/08/2009 Vitamin B12 Deficiency [E53.8] 06/23/2009 Dysmenorrhea [N94.6] Routine gynecological examination [Z01.419] 10/23/2012 02/09/2017 Tobacco abuse [Z72.0] 05/11/2021 History of endometriosis [Z87.42] 01/28/2015 Moderate episode of recurrent major depressive *12/21/2015 Raynaud's disease without gangrene [I73.00] 01/14/2016 Fibromyalgia [M79.7] 01/17/2016 Migraine without aura and without status migrai*01/17/2016 Encounter for monitoring proton pump (more content not included)... [facility] 08-08-2024 Note HNO ID: [id number] Author: MONIQUE CA MD Service: Cardiovascular Surgery Author Type: Physician Type: Procedures Filed: 08/08/2024 11:20 Note Text: LEFT HEART CATHETERIZATION PROCEDURE NOTE Surgery/Procedure Date: 08/08/2024 Referring Physician: Clinical History: This is a 49 year old female with severe aortic stenosis for coronary angiography and right heart cath . Consent: Informed consent was obtained after the risks, benefits, and alternatives to and of this procedure were discussed in detail with the patient. Procedure in Detail: The patient was brought to the cardiac catheterization laboratory, prepped and draped in the usual sterile fashion. Anxiolysis was achieved with intravenous and intravenous benadryl. Local anesthesia was achieved over the wrist with 1% lidocaine. A pre-flushed 6-Stateless sheath was inserted into the right radial artery via the Seldinger technique without complications. Retrograde percutaneous diagnostic coronary angiography and left ventriculography were performed using a Teodoro left 4 catheter, a 3-D RC catheter, and an angled pigtail catheter. There were no complications of the procedure. Findings: Angiography: LEFT MAIN: Normal . LEFT CIRCUMFLEX: Normal . LEFT ANTERIOR DESCENDING: Normal . RIGHT CORONARY ARTERY: Dominant Normal . LEFT VENTRICULOGRAPHY: not done. Right heart cath : Pulmonary hypertension PA 38 mmHg. At this point, the procedure was terminated. All diagnostic wires and catheters were removed. Recommendations: 1. Daily aspirin indefinitely 2. AVR. 3. Statin use 4. Secondary cardiac prevention measures. SIGNATURE: Monique Ca MD PATIENT NAME: Paul Davenport DATE: August 08, 2024 TIME: 11:19 AM [facility] 07-30-2024 Note HNO ID: [id number] Author: JOHNNA VELIZ RN Service: ? Author Type: Registered Nurse Type: Progress Notes Filed: 07/30/2024 12:55 Note Text: AG TRANSITIONAL CARE MANAGEMENT (TCM) FOLLOW-UP NOTE Provider Action/FYI: Patient states that she stopped taking lyrica, lasix and prednisone due to flushed face, swelling improved and due to concern regarding kidneys. Patient feels that the lyrica attributed to fluid retention. Patient notes that she feels tired and depressed since stopping. Reviewed with patient that she should at least take lasix daily as ordered and that prednisone can cause your face to be flushed/ red. Encouraged patient to take medications as ordered and to contact office/ SN with any concerns regarding medications. Patient identified by name and date of : YES Spoke to: patient Diagnosis: CHF Summary: Patient returned call. Patient notes that she is feeling better as swelling to bilateral lower legs has improved after stopping lyrica. Patient stopped taking lasix after swelling improved. Reviewed with patient that lasix was ordered daily and that she should continue taking at least daily. Patient reports that she stopped taking prednisone due to redness noted to her face. Reviewed with patient that sometimes redness is noted while taking prednisone. Reviewed importance of taking medications as instructed. Patient reports that since stopping lyrica she feels more depressed and is tired/ laying in bed most of the day. Patient reports that she is taking prozac and abilify. Will route message to provider to update. Reviewed CHF zones and encouraged patient to report any changes in symptoms. Patient verbalized understanding. Health leads screening tool questions performed? N/A Primary Care first education/Where to go for Care Concerns: Medications, swelling Shank Archer plan for next outreach: Will follow-up in 1 week Signature: Johnna Veliz RN July 30, 2024 [facility] 07-30-2024 Note Patient Outreach ( AC) PAUL DAVENPORT ([id number]) 1975 F Date Time Provider Department 07/30/24 JOHNNA VELIZ [facility] During your visit today, we recorded the following information about you: Johnna Veliz RN 07/30/2024 12:55 PM Signed AG TRANSITIONAL CARE MANAGEMENT (TCM) FOLLOW-UP NOTE Provider Action/FYI: Patient states that she stopped taking lyrica, lasix and prednisone due to flushed face, swelling improved and due to concern regarding kidneys. Patient feels that the lyrica attributed to fluid retention. Patient notes that she feels tired and depressed since stopping. Reviewed with patient that she should at least take lasix daily as ordered and that prednisone can cause your face to be flushed/ red. Encouraged patient to take medications as ordered and to contact office/ SN with any concerns regarding medications. Patient identified by name and date of : YES Spoke to: patient Diagnosis: CHF Summary: Patient returned call. Patient notes that she is feeling better as swelling to bilateral lower legs has improved after stopping lyrica. Patient stopped taking lasix after swelling improved. Reviewed with patient that lasix was ordered daily and that she should continue taking at least daily. Patient reports that she stopped taking prednisone due to redness noted to her face. Reviewed with patient that sometimes redness is noted while taking prednisone. Reviewed importance of taking medications as instructed. Patient reports that since stopping lyrica she feels more depressed and is tired/ laying in bed most of the day. Patient reports that she is taking prozac and abilify. Will route message to provider to update. Reviewed CHF zones and encouraged patient to report any changes in symptoms. Patient verbalized understanding. Health leads screening tool questions performed? N/A Primary Care first education/Where to go for Care Concerns: Medications, swelling Shank Archer plan for next outreach: Will follow-up in 1 week Signature: Johnna Veliz RN July 30, 2024 Allergies As of Date: 07/30/2024 Noted Allergy Reaction DUST 01/27/2009 Comments: extreme coughing, dry hives METFORMIN 04/09/2023 14 - Other: See Comments Date Reviewed: 07/25/2024 Reviewed by: Rosemary Arteaga MA - Fully Assessed Reason for Visit: Transition Of Care [4074] Cmt: TCM follow up call Prescriptions as of 07/30/2024 - pregabalin (LYRICA) 150 mg capsule Take 1 capsule by mouth two times a day for 30 days. - furosemide (LASIX) 40 mg tablet Take 1 tablet by mouth two times a day. - predniSONE (DELTASONE) 20 mg tablet Take 1 tablet by mouth once daily for 5 days. - CoQ10, Liposomal Ubiquinol, (COQMAX UBIQUINOL) 200 mg cap Take 20 mg by mouth once daily. - iv contrast (will be provided with radiology test) CTA ABD/PEL - No IV access, insert saline lock prior to the sedation, infusion, injection for imaging exam. Discontinue saline lock post exam. If Pt. has a central line or IVAD, may access for administration according to line specific nursing protocol. Once exam is complete flush line and de-access according to line specific nursing protocol in the CT contrast administration guidelines link. - metroNIDAZOLE (FLAGYL) 500 mg tablet Take 1 tablet by mouth three times a day for 10 days. - ibuprofen (MOTRIN) 800 mg tablet Take 1 tablet by mouth every 8 hours as needed for pain. - fluticasone-salmeterol (WIXELA INHUB) 250-50 mcg/dose inhaler Inhale 1 puff as instructed two times a day. - methocarbamol (ROBAXIN) 500 mg tablet Take 1 tablet by mouth two times a day as needed. - ARIPiprazole (ABILIFY) 10 mg tablet Take 1 tab by mouth once a day in the morning for agitation - propranolol (INDERAL) 20 mg tablet Take 1 tablet by mouth two times a day. - FLUoxetine (PROZAC) 40 mg capsule Take 2 capsules by mouth once daily. - esomeprazole (NEXIUM) 40 mg capsule Take 1 capsule by mouth two times a day. - albuterol HFA (PROVENTIL HFA, VENTOLIN HFA) 90 mcg/actuation inhaler Inhale 2 puffs as instructed every 4 hours as needed for wheezing/shortness of breath. - fluticasone (FLONASE) 50 mcg/actuation nasal spray Use 1 spray in each nostril once daily. - SUMAtriptan (IMITREX) 50 mg tablet Take 1 tablet (50 mg) by mouth as needed for migraine headache (see administration instructions). May repeat dose after 2 hours if needed. Maximum daily dose is 200 mg per day. - polyethylene glycol 3350 (MIRALAX) 17 gram packet Take 17 g by mouth once daily. Dissolve dose in 4 - 8 ounces of liquid and take as directed. - LORazepam (ATIVAN) 1 mg tablet Take 1 mg by mouth once daily as needed for anxiety. - cholecalciferol (VITAMIN D3) 1,000 unit tab tablet Take 2 tablets by mouth once daily. - levonorgestrel (MIRENA) 20 mcg/24 hr (5 years) IUD 1 Each by INTRAUTERINE route one time onl (more content not included)... [facility] 07-25-2024 Note HNO ID: [id number] Author: VASQUEZ BRUSH APRN.SCHOLARSHIP COUNSELOR Service: ? Author Type: Nurse Practitioner Type: Progress Notes Filed: 08/18/2024 17:59 Note Text: Subjective The patient consented to the use of ambient [employer] software for draft documentation of the visit consistent with [facility]?s Notice of Privacy Practices. HPI Paul Davenport is a 49-year-old female with a history of severe aortic stenosis, presenting for follow-up after leaving the hospital AMA on 07/19/2024. Paul was seen at [facility] on 07/19/2024 for worsening fluid retention, groin and RUQ abdominal pain, chest tightness, and dyspnea. Labs revealed an elevated BNP of 3.44 and leukocytosis of 16.7. CMP was within normal limits, troponins were negative, and a chest x-ray was normal. CT abdomen and pelvis showed probable colitis. She received IV ceftriaxone and IV Flagyl but left AMA before admission for CHF and colitis. She is currently taking oral Flagyl 500 mg TID for 10 days. Paul reports severe fluid retention, stating, I am horribly swollen, like look at me. She notes edema in her legs, abdomen, and even her chin, describing it as horrible, horrible. She attributes some of the swelling to consuming homemade gravy with pot roast, stating, I blew up... it hasn't gone down since pretty much. She experiences significant pain in her legs, making it difficult to lift herself out of the bathtub and causing discomfort while walking. She describes the onset of these symptoms as rapid, stating, It's crazy how this came on so fast. She also reports chest tightness at night, which has been affecting her sleep. She has been using a leg compression device and elevating her legs at night to alleviate the swelling, but notes that elevation sometimes causes pain. Paul is currently taking Lasix but reports that it does not provide significant relief. She is concerned about increasing the dosage due to potential effects on her kidneys. She also takes Lyrica once daily but expresses a desire to discontinue it due to concerns about water retention. She notes that not taking Lyrica makes her demarco. She is also on Abilify, which she reports has improved her depression. She uses a Wixela inhaler once or twice daily and takes Ativan for anxiety, though she tries to limit its use due to its sedative effects. Paul has a history of severe aortic stenosis and is scheduled for a cardiac catheterization on 08/08/[address] Ca. She expresses frustration about a previous inconclusive test in December, stating, I probably could have caught it sooner... it's irritating that I have to suffer and go through all this crap that I could have maybe avoided some of it. She also reports issues with urination, stating, I have to stand over the toilet to even get it to come out. She attributes this to her prolapsed colon and bladder. She also reports improvement in bowel movements and has not been using Miralax recently. She denies fevers. I reviewed past medical, surgical, social, and family histories today and updated chart. Allergies, chronic medications, and supplements were also reviewed. 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 Insomnia, unspecified Iron deficiency anemia 09/25/2023 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/2023 Major depressive disorder, single episode, mild Migraine stable with propranolol Nontoxic uninodular goiter Osteoarthritis of multiple joints Partial rectal prolapse RP (rectal prolapse) ~2012 Sleep apnea Tobacco abuse PAST SURGICAL HISTORY Procedure Laterality Date ABDOMINAL SURGERY HX COLON SURGERY HX 2019 rectal prolapse COLONOSCOPY 11/16/2014, 12/2017 No polyps/ severe diarrhea and prolapse CORRECT RECTAL PROLAPSE CT ABD/PELVIS WO CONTRAST PANEL 11/[address] COR/SAG/SINUS/BRAIN/HEAD 12/2005 normal DEBRIDEMENT MUSCLE AND FASCIA 20 SQ CM/< 11/03/2007 DEBRIDEMENT ULCER EXTREMITY LOWER performed by GEOFF FLOOD at [facility] ECHO EXAM OF HEART 09/2000 bicuspid AV, minor AI, mild EGD 01/1999 small hiatal hernia EGD 01/2004 EGD 02/2007 mild gastritis EGD 11/16/2014 EGD 08/02/2022 ENDOSCOPY PROC 10/22/2019 LA grade A reflux esophagitis, Normal stomach, Normal duodenum HOLTER MONITOR 24 HOUR 04/2003 normal INSERT INTRAUTERINE DEVICE (more content not included)... [facility] 07-23-2024 Note HNO ID: [id number] Author: MONIQUE CA MD Service: ? Author Type: Physician Type: Progress Notes Filed: 07/23/2024 18:19 Note Text: Monique Ca MD Interventional Cardiology [address] [place] [address] Chief Complaint Patient presents with: Cardiology Follow Up : Follow up to aortic valve stenosis HISTORY OF PRESENT ILLNESS: Ms. Davenport is a 49-year-old female with a history of bicuspid aortic valve and aortic stenosis, presenting with worsening exertional dyspnea and chest tightness. The patient reports significant worsening of exertional dyspnea and chest tightness over the past year. She experiences severe chest tightness and constant dyspnea, which has markedly worsened compared to a year ago. She can walk less than one block without experiencing dyspnea and has difficulty lying down. She also reports severe fatigue, stating she can't stay awake and is tired all the time, which significantly impacts her daily activities. She notes a gurgling sensation in her chest and persistent congestion, for which she has been repeatedly prescribed antibiotics without improvement. She denies any recent dental infections or cavities. She reports significant fluid retention, particularly in her legs and feet, despite taking Lasix 40 mg, which she feels is ineffective. She has not undergone any cardiac catheterization procedures. She has a history of aortic stenosis with a bicuspid valve diagnosed at age 22. She was last seen in 2023, at which time her ascending aorta measured 3.6 cm, and she was asymptomatic. A recent echocardiogram on 07/09/2023 showed normal LV function with an LVEF of 72%, a peak gradient of 62 mmHg, a mean gradient of 42 mmHg, a dimensionless index of 0.32, and an aortic valve area of 1.0 cm?. Her medical history is also significant for a small brain aneurysm, for which she canceled planned coiling surgery due to her cardiac issues. She also has a prolapsed colon requiring surgical intervention and a hernia. She reports being overweight. She has a strong family history of heart failure, with both her mother and maternal grandmother having from the condition. Her father also has heart failure. She reports taking aspirin, which is not prescribed, in addition to Lasix 40 mg. Cardiac Risk Factors age (male over 45, female over 55), obesity, hypertension, family history of CAD 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 Insomnia, unspecified Iron deficiency anemia 09/25/2023 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/2023 Major depressive disorder, single episode, mild Migraine stable with propranolol Nontoxic uninodular goiter Osteoarthritis of multiple joints Partial rectal prolapse RP (rectal prolapse) ~2012 Sleep apnea Tobacco abuse PAST SURGICAL HISTORY Procedure Laterality Date ABDOMINAL SURGERY HX COLON SURGERY HX 2019 rectal prolapse COLONOSCOPY 11/16/2014, 12/2017 No polyps/ severe diarrhea and prolapse CORRECT RECTAL PROLAPSE CT ABD/PELVIS WO CONTRAST PANEL 11/[address] COR/SAG/SINUS/BRAIN/HEAD 12/2005 normal DEBRIDEMENT MUSCLE AND FASCIA 20 SQ CM/< 11/03/2007 DEBRIDEMENT ULCER EXTREMITY LOWER performed by GEOFF FLOOD at [facility] ECHO EXAM OF HEART 09/2000 bicuspid AV, minor AI, mild EGD 01/1999 small hiatal hernia EGD 01/2004 EGD 02/2007 mild gastritis EGD 11/16/2014 EGD 08/02/2022 ENDOSCOPY PROC 10/22/2019 LA grade A reflux esophagitis, Normal stomach, Normal duodenum HOLTER MONITOR 24 HOUR 04/2003 normal INSERT INTRAUTERINE DEVICE 02/2015 Mirena LAPAROSCOPY DIAGNOSTIC age 24, 26 endometriosis, cysts removed MRI BRAIN 05/2003 normal SIGMOIDOSCOPY 01/1999 normal TONSILLECTOMY PRIMARY/SECONDARY Tonsillectomy FAMILY HISTORY Problem Relation Age of Onset Arthritis Mother other (lymphoma) Mother 54 other (CHF) Mother Heart Mother Diabetes Mother Arthritis Father Diabetes Father Thyroid Sister No Known Problems Sister Heart Attack Maternal Grandmother Cancer Maternal Grandfather Cancer Paternal Grandmother leukemia Cancer Maternal Uncle Breast Cancer Other paternal cousin Colon Cancer No Family History Ovarian cancer No Family History Anesthesia Problems No Family History Blood Clots No Family History Social History Tobacco Use Smoking status: Former (more content not included)... [facility] 07-22-2024 Note HNO ID: [id number] Author: JOHNNA VELIZ RN Service: ? Author Type: Registered Nurse Type: Progress Notes Filed: 07/22/2024 10:32 Note Text: AG TRANSITIONAL CARE MANAGEMENT (TCM) FOLLOW-UP NOTE Provider Action/FYI: Patient identified by name and date of : YES Spoke to: patient Reviewed message from provider with patient. Pharmacy to deliver medication today. Patient notes that she has not been smoking and that her chest feels less tight. Patient plans to go to Cardiology appointment and has transportation set up. Signature: Johnna Veliz RN July 22, 2024 [facility] 07-22-2024 Note HNO ID: [id number] Author: VASQUEZ BRUSH APRN.ALBERTO Service: ? Author Type: Nurse Practitioner Type: Progress Notes Filed: 07/22/2024 08:33 Note Text: I am very concerned about her and do recommend returning to the ER. I can send in oral flagyl for her colitis but she really should be treated in the hospital. Vasquez [facility] 07-21-2024 Note HNO ID: [id number] Author: JOHNNA VELIZ RN Service: ? Author Type: Registered Nurse Type: Progress Notes Filed: 07/21/2024 16:57 Note Text: TRANSITIONAL CARE MANAGEMENT (TCM) COMMUNITY MONITORING PROGRAM - [place] Provider Action/FYI: Patient reports decreased urination and is unclear if she needs to resume antibiotics for colitis. Patient reports that she was taking while in the hospital. TCM/ ED follow up scheduled 07/25, Cardiology 07/23 Encouraged patient to return to ED with worsening swelling, dyspnea. Patient states that she panicked while in the ED and could not stay any longer. SUMMARY: Pt discharged from [facility] on 07/19/24, patient left AMA. Admitted for: CHF Patient seen Inpatient MEL Visit? No. Patient seen ICARE Program? No. Contact made with patient: Yes Reviewed CHF zones with patient, encouraged patient to report any changes in symptoms. Patient verbalized understanding. Patient has not been monitoring weight, diet or fluid intake. Reviewed with patient. Hi my name is Johnna Veliz RN and I am calling from the [facility] on behalf of your PCP, Vasquez Brush APRN.SCHOLARSHIP COUNSELOR I understand you were recently in the hospital so I am calling to check in with you to ensure you are feeling well now that you?re home. Do you mind if I ask you a few questions related to your hospital stay and well-being Yes Contact with patient post discharge, spoke to patient. Patient identified by name and . Do you feel your health is BETTER, WORSE, or the SAME since leaving the hospital? Better ACTION TAKEN: Patient indicated symptoms are better or same, no action required. Continue outreach. CHF : Does patient have and appointment at the Heart Failure Clinic? No - Referral HF Clinic: No MEDICATIONS: Many patients have questions or concerns about their medications once they are home. Do you have any questions about taking your medications or which medication you should be on? No Do you need any medication refills at this time, including any of the medications you might take only when needed? No ACTION TAKEN: No action required For RNs or Pharmacy completing outreach ONLY, was a medication review completed? Yes SOCIAL: We would like to make sure you have what you need so that your basics needs are met - including your personal safety. HEALTH LEADS SCREENING TOOL QUESTIONS: Do you often feel you lack companionship? No Do you ever need help reading or understanding hospital materials? No In the last 12 months, have you changed how you take medications to save money? No In the past 12 months, has lack of transportation kept you from medical appointments, work or getting things you need like food, or supplies? Yes, using transportation with insurance company In the last 12 months, did you ever eat less than you felt you should because there wasn't enough money for food? No During the winter, do you anticipate having a problem paying your heating bill? No In the next 2 months, are you worried you might not have stable housing? No Would you like to speak with a social work customer care team coach to help give you support for any of these needs? No It can be normal to feel anxious or down during a time like this. Would you like to talk to a mental health professional about how you have been feeling? No ACTION TAKEN: No action taken DISCHARGE INTRUCTIONS: Your discharge instructions / After Visit Summary (AVS) are important in guiding you through the recovery process. Do you have any questions related to your discharge instructions? No Do you have all the necessary equipment and supplies at home? Yes ACTION TAKEN: No action required WRAP AROUND SERVICES: Primary Care first education/Where to go for Care Patient educated on importance of primary care provider follow up visit as well as specialty provider follow up visits as indicated. Inform the patient that if they have any questions or concerns prior to that appointment, to call their Primary Care Provider 's office right away. Primary care provider first education provided. I would like to help you schedule a hospital follow-up virtual or telephone visit with your PCP. ACTION TAKEN: TCM Primary Care Provider Visit Scheduled: Yes - Appt date: 07/25/24 with Vasquez Brush Your doctor would like us to remind you of the recommendations regarding the coronavirus (Covid19) outbreak: Avoid public places as much as possible. Avoid close contact (within 6 feet) with others you don't live with, especially if they are sick. Stay home if you are sick. Wash your hands regularly for at least 20 seconds with soap and water. Wear a cloth mask in public places to help reduce community spread. Do not go to your Doctor's office unless instructed to do so. For any non-emergency symptoms, call your Doctor's office to get instructions on how to manage (we might recommend a telephone or virtual vis (more content not included)... [facility] 07-21-2024 Note Patient Outreach (AG ACM) ETHELPAUL Bhardwaj ([id number]) 1975 F Date Time Provider Department 07/21/24 JOHNNA VELIZ [facility] During your visit today, we recorded the following information about you: Johnna Veliz, RN 07/21/2024 4:57 PM Signed TRANSITIONAL CARE MANAGEMENT (TCM) COMMUNITY MONITORING PROGRAM - [place] Provider Action/FYI: Patient reports decreased urination and is unclear if she needs to resume antibiotics for colitis. Patient reports that she was taking while in the hospital. TCM/ ED follow up scheduled 07/25, Cardiology 07/23 Encouraged patient to return to ED with worsening swelling, dyspnea. Patient states that she panicked while in the ED and could not stay any longer. SUMMARY: Pt discharged from [facility] on 07/19/24, patient left AMA. Admitted for: CHF Patient seen Inpatient MEL Visit? No. Patient seen ICARE Program? No. Contact made with patient: Yes Reviewed CHF zones with patient, encouraged patient to report any changes in symptoms. Patient verbalized understanding. Patient has not been monitoring weight, diet or fluid intake. Reviewed with patient. Hi my name is Johnna Veliz RN and I am calling from the [facility] on behalf of your PCP, Vasquez Brush APRN.SCHOLARSHIP COUNSELOR I understand you were recently in the hospital so I am calling to check in with you to ensure you are feeling well now that you?re home. Do you mind if I ask you a few questions related to your hospital stay and well-being Yes Contact with patient post discharge, spoke to patient. Patient identified by name and . Do you feel your health is BETTER, WORSE, or the SAME since leaving the hospital? Better ACTION TAKEN: Patient indicated symptoms are better or same, no action required. Continue outreach. CHF : Does patient have and appointment at the Heart Failure Clinic? No - Referral HF Clinic: No MEDICATIONS: Many patients have questions or concerns about their medications once they are home. Do you have any questions about taking your medications or which medication you should be on? No Do you need any medication refills at this time, including any of the medications you might take only when needed? No ACTION TAKEN: No action required For RNs or Pharmacy completing outreach ONLY, was a medication review completed? Yes SOCIAL: We would like to make sure you have what you need so that your basics needs are met - including your personal safety. HEALTH LEADS SCREENING TOOL QUESTIONS: Do you often feel you lack companionship? No Do you ever need help reading or understanding hospital materials? No In the last 12 months, have you changed how you take medications to save money? No In the past 12 months, has lack of transportation kept you from medical appointments, work or getting things you need like food, or supplies? Yes, using transportation with [employer] In the last 12 months, did you ever eat less than you felt you should because there wasn't enough money for food? No During the winter, do you anticipate having a problem paying your heating bill? No In the next 2 months, are you worried you might not have stable housing? No Would you like to speak with a social work customer care team coach to help give you support for any of these needs? No It can be normal to feel anxious or down during a time like this. Would you like to talk to a mental health professional about how you have been feeling? No ACTION TAKEN: No action taken DISCHARGE INTRUCTIONS: Your discharge instructions / After Visit Summary (AVS) are important in guiding you through the recovery process. Do you have any questions related to your discharge instructions? No Do you have all the necessary equipment and supplies at home? Yes ACTION TAKEN: No action required WRAP AROUND SERVICES: Primary Care first education/Where to go for Care Patient educated on importance of primary care provider follow up visit as well as specialty provider follow up visits as indicated. Inform the patient that if they have any questions or concerns prior to that appointment, to call their Primary Care Provider 's office right away. Primary care provider first education provided. I would like to help you schedule a hospital follow-up virtual or telephone visit with your PCP. ACTION TAKEN: TCM Primary Care Provider Visit Scheduled: Yes - Appt date: 07/25/24 with Vasquez Brush Your doctor would like us to remind you of the recommendations regarding the coronavirus (Covid19) outbreak: Avoid public places as much as possible. Avoid close contact (within 6 feet) with others you don't live with, especially if they are sick. Stay home if you are sick. Wash your hands regularly for at least 20 seconds with soap and water. Wear a cloth mask in public places to help reduce community spread. Do not go to your Doctor' (more content not included)... [facility] 07-08-2024 Note HNO ID: [id number] Author: ERIC OMNTOYA, NORBERTO Service: Nursing Author Type: Registered Nurse Type: Nursing Progress Note Filed: 07/08/2024 09:48 Note Text: Patient given 2 ML dilute Difinity IV per tap and die maker technician request. Patient tolerated well. [facility] 07-07-2024 Note HNO ID: [id number] Author: JEFE MCLEAN MA Service: ? Author Type: Comic Book Writer Type: Progress Notes Filed: 07/07/2024 14:34 Note Text: ED Follow Up: Patient discharged from [facility] ED on 06/30/24. 1. How are you feeling since your ED visit? Left message inquiring how patient is doing since recent ER visit and recommended calling back if she needs anything. Have your symptoms improved or resolved? Left message 2. Were you prescribed any medications while in the ED or advised to stop any medication? Left message - If yes, were you able to fill your prescriptions? Left message -if stopped medication, what was the medication? Left message 3. Were you advised to schedule a follow up appointment with your provider? Left message - If no, Do you feel like you need an appointment scheduled? Left message - If yes, Do you need this scheduled now or has this already been scheduled? Left message 4. Were you able to contact the office or institution librarian provider prior to your ED visit? left message 5. Is there anything else I can do for you today? Left message Jefe Mclean MA [facility] 07-07-2024 Note Patient Outreach (AG FAMMICHELLE) PAUL DAVENPORT ([id number]) 1975 F Date Time Provider Department 07/07/24 VASQUEZ BRUSH During your visit today, we recorded the following information about you: Jefe Mclean MA 07/07/2024 2:34 PM Signed ED Follow Up: Patient discharged from [facility] ED on 06/30/24. 1. How are you feeling since your ED visit? Left message inquiring how patient is doing since recent ER visit and recommended calling back if she needs anything. Have your symptoms improved or resolved? Left message 2. Were you prescribed any medications while in the ED or advised to stop any medication? Left message - If yes, were you able to fill your prescriptions? Left message -if stopped medication, what was the medication? Left message 3. Were you advised to schedule a follow up appointment with your provider? Left message - If no, Do you feel like you need an appointment scheduled? Left message - If yes, Do you need this scheduled now or has this already been scheduled? Left message 4. Were you able to contact the office or institution librarian provider prior to your ED visit? left message 5. Is there anything else I can do for you today? Left message Jefe Mclean MA Allergies As of Date: 07/07/2024 Noted Allergy Reaction DUST 01/27/2009 Comments: extreme coughing, dry hives METFORMIN 04/09/2023 14 - Other: See Comments Date Reviewed: 06/27/2024 Reviewed by: Rosemary Arteaga MA - Fully Assessed Reason for Visit: ED Follow-up [821] Cmt: [facility] ER 06/30/24 Prescriptions as of 07/07/2024 - ibuprofen (MOTRIN) 800 mg tablet Take 1 tablet by mouth every 8 hours as needed for pain. - furosemide (LASIX) 20 mg tablet Take 1 tablet by mouth once daily. - fluticasone-salmeterol (WIXELA INHUB) 250-50 mcg/dose inhaler Inhale 1 puff as instructed two times a day. - methocarbamol (ROBAXIN) 500 mg tablet Take 1 tablet by mouth two times a day as needed. - azithromycin (ZITHROMAX Z-GARETT) 250 mg tablet 2 tablets by mouth first day then 1 tablet the next 4 days - ARIPiprazole (ABILIFY) 10 mg tablet Take 1 tab by mouth once a day in the morning for agitation - Pregabalin (LYRICA) 200 mg capsule Take 1 capsule by mouth two times a day for 30 days. - aspirin 325 mg tablet Take 1 tablet by mouth once daily. Patient should start on June 09, 2024. - clopidogrel (PLAVIX) 75 mg tablet Take 1 tablet by mouth once daily. Patient should start on June 09, 2024. - propranolol (INDERAL) 20 mg tablet Take 1 tablet by mouth two times a day. - FLUoxetine (PROZAC) 40 mg capsule Take 2 capsules by mouth once daily. - esomeprazole (NEXIUM) 40 mg capsule Take 1 capsule by mouth two times a day. - albuterol HFA (PROVENTIL HFA, VENTOLIN HFA) 90 mcg/actuation inhaler Inhale 2 puffs as instructed every 4 hours as needed for wheezing/shortness of breath. - fluticasone (FLONASE) 50 mcg/actuation nasal spray Use 1 spray in each nostril once daily. - doxycycline hyclate (VIBRAMYCIN) 100 mg capsule Take 1 capsule by mouth once daily. - SUMAtriptan (IMITREX) 50 mg tablet Take 1 tablet (50 mg) by mouth as needed for migraine headache (see administration instructions). May repeat dose after 2 hours if needed. Maximum daily dose is 200 mg per day. - polyethylene glycol 3350 (MIRALAX) 17 gram packet Take 17 g by mouth once daily. Dissolve dose in 4 - 8 ounces of liquid and take as directed. - LORazepam (ATIVAN) 1 mg tablet 1 mg. - cholecalciferol (VITAMIN D3) 1,000 unit tab tablet Take 2 tablets by mouth once daily. - levonorgestrel (MIRENA) 20 mcg/24 hr (5 years) IUD 1 Each by INTRAUTERINE route one time only. Problem List As Of Date 07/07/2024 Noted Resolved Bicuspid AV/AI.. 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] 07/31/2001 02/09/2017 Depressive disorder, not elsewhere classified [*07/31/2001 12/21/2015 Endometriosis of other specified sites [N80.8] 07/31/2001 02/09/2017 ESOPHAGEAL REFLUX [K21.9] 07/31/2001 5.2.1 CHRONIC POST TRAUMA H/A W/ MINOR HEAD TRA*05/19/2003 02/09/2017 Allergic Rhinitis [J30.9] 03/05/2009 Bulimia nervosa, unspecified severity [F50.20] 04/08/2009 Vitamin B12 Deficiency [E53.8] 06/23/2009 Dysmenorrhea [N94.6] Routine gynecological examination [Z01.419] 10/23/2012 02/09/2017 Tobacco abuse [Z72.0] 05/11/2021 History of endometriosis [Z87.42] 01/28/2015 Moderate episode of recurrent major depressive *12/21/2015 Raynaud's disease without gangrene [I73.00] 01/14/2016 Fibromyalgia [M79.7] 01/17/2016 Migraine without aura and without status migrai*01/17/2016 Encounter for monitoring proton pump inhibitor *02/09/2017 05/11/2021 Bicuspid aortic valve [Q23.81] 02/09/2017 Obesity, Class I, BMI 30-34.9 [E66.811] 02/09/2017 05/11/2021 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 [facility] 07-04-2024 Note HNO ID: [id number] Author: CALLIE SUGGS LPN Service: ? Author Type: LICENSED NURSE Type: Progress Notes Filed: 07/04/2024 16:24 Note Text: ED Follow-Up Note Provider Action / FYI: Call completed by: LASHON Patient seen in ED: Out of Network ED Contact made with Patient: No, left message. Callie Suggs LPN July 04, 2024 4:24 PM [facility] 07-04-2024 Note Patient Outreach (AG FAMPLE) PAUL DAVENPORT ([id number]) 1975 F Date Time Provider Department 07/04/24 VASQUEZ BRUSH During your visit today, we recorded the following information about you: Callie Suggs LPN 07/04/2024 4:24 PM Signed ED Follow-Up Note Provider Action / FYI: Call completed by: LASHON Patient seen in ED: Out of Network ED Contact made with Patient: No, left message. Callie Suggs LPN July 04, 2024 4:24 PM Allergies As of Date: 07/04/2024 Noted Allergy Reaction DUST 01/27/2009 Comments: extreme coughing, dry hives METFORMIN 04/09/2023 14 - Other: See Comments Date Reviewed: 06/27/2024 Reviewed by: Rosemary Arteaga MA - Fully Assessed Reason for Visit: ED Follow-up [821] Cmt: [facility] 06/30/2024 Prescriptions as of 07/04/2024 - ibuprofen (MOTRIN) 800 mg tablet Take 1 tablet by mouth every 8 hours as needed for pain. - furosemide (LASIX) 20 mg tablet Take 1 tablet by mouth once daily. - fluticasone-salmeterol (WIXELA INHUB) 250-50 mcg/dose inhaler Inhale 1 puff as instructed two times a day. - methocarbamol (ROBAXIN) 500 mg tablet Take 1 tablet by mouth two times a day as needed. - azithromycin (ZITHROMAX Z-GARETT) 250 mg tablet 2 tablets by mouth first day then 1 tablet the next 4 days - ARIPiprazole (ABILIFY) 10 mg tablet Take 1 tab by mouth once a day in the morning for agitation - Pregabalin (LYRICA) 200 mg capsule Take 1 capsule by mouth two times a day for 30 days. - aspirin 325 mg tablet Take 1 tablet by mouth once daily. Patient should start on June 09, 2024. - clopidogrel (PLAVIX) 75 mg tablet Take 1 tablet by mouth once daily. Patient should start on June 09, 2024. - propranolol (INDERAL) 20 mg tablet Take 1 tablet by mouth two times a day. - FLUoxetine (PROZAC) 40 mg capsule Take 2 capsules by mouth once daily. - esomeprazole (NEXIUM) 40 mg capsule Take 1 capsule by mouth two times a day. - albuterol HFA (PROVENTIL HFA, VENTOLIN HFA) 90 mcg/actuation inhaler Inhale 2 puffs as instructed every 4 hours as needed for wheezing/shortness of breath. - fluticasone (FLONASE) 50 mcg/actuation nasal spray Use 1 spray in each nostril once daily. - doxycycline hyclate (VIBRAMYCIN) 100 mg capsule Take 1 capsule by mouth once daily. - SUMAtriptan (IMITREX) 50 mg tablet Take 1 tablet (50 mg) by mouth as needed for migraine headache (see administration instructions). May repeat dose after 2 hours if needed. Maximum daily dose is 200 mg per day. - polyethylene glycol 3350 (MIRALAX) 17 gram packet Take 17 g by mouth once daily. Dissolve dose in 4 - 8 ounces of liquid and take as directed. - LORazepam (ATIVAN) 1 mg tablet 1 mg. - cholecalciferol (VITAMIN D3) 1,000 unit tab tablet Take 2 tablets by mouth once daily. - levonorgestrel (MIRENA) 20 mcg/24 hr (5 years) IUD 1 Each by INTRAUTERINE route one time only. Problem List As Of Date 07/04/2024 Noted Resolved Bicuspid AV/AI.. 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] 07/31/2001 02/09/2017 Depressive disorder, not elsewhere classified [*07/31/2001 12/21/2015 Endometriosis of other specified sites [N80.8] 07/31/2001 02/09/2017 ESOPHAGEAL REFLUX [K21.9] 07/31/2001 5.2.1 CHRONIC POST TRAUMA H/A W/ MINOR HEAD TRA*05/19/2003 02/09/2017 Allergic Rhinitis [J30.9] 03/05/2009 Bulimia nervosa, unspecified severity [F50.20] 04/08/2009 Vitamin B12 Deficiency [E53.8] 06/23/2009 Dysmenorrhea [N94.6] Routine gynecological examination [Z01.419] 10/23/2012 02/09/2017 Tobacco abuse [Z72.0] 05/11/2021 History of endometriosis [Z87.42] 01/28/2015 Moderate episode of recurrent major depressive *12/21/2015 Raynaud's disease without gangrene [I73.00] 01/14/2016 Fibromyalgia [M79.7] 01/17/2016 Migraine without aura and without status migrai*01/17/2016 Encounter for monitoring proton pump inhibitor *02/09/2017 05/11/2021 Bicuspid aortic valve [Q23.81] 02/09/2017 Obesity, Class I, BMI 30-34.9 [E66.811] 02/09/2017 05/11/2021 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] 02/09/2017 LEONARD (generalized anxiety disorder) [F41.1] 04/11/2017 Risk and functional assessment [Z13.9] 06/04/2017 05/11/2021 Rectal prolapse [K62.3] 03/21/2018 08/19/2018 RP (rectal prolapse) [K62.3] 03/21/2018 04/11/2018 Hx of migraines [Z86.69] 04/03/2018 05/11/2021 Nicotine use disorder, F17.2 [F17.200] 04/12/2018 Mild intermittent asthma without complication [*05/28/2019 Obesity, Class III, BMI 40-49.9 (morbid obesity*05/11/2021 Dyslipidemia [E78.5] 05/19/2021 Prediabetes [R73.03] 05/19/2021 Obesity, Class II, BMI 35-39.9 [E66.812] 03/31/2022 Chronic bilateral low back pain without sciatic*04/26/2022 Bilateral leg pain [M79.604, M79.605] 04/26/2022 Muscle spasm of back [M62.830] 04/26/2022 Bilateral hip pain [M25.551, M25.552] 04/26/2022 Foot pain, bilateral [M79.671, M79.672] 04/26/2022 Chr (more content not included)... [facility] 06-27-2024 Note HNO ID: [id number] Author: ANN DANIELLE, MARY Service: ? Author Type: Technologist Type: Progress Notes Filed: 06/27/2024 17:37 Note Text: Radiology Service Progress Note PATIENT NAME: Paul Davenport DATE OF SERVICE: June 27, 2024 TIME: 5:37 PM PATIENT IDENTITY VERIFICATION COMPLETED USING TWO (2) IDENTIFIERS: Name and Date of confirmed by patient verbally. FALL SCREENING: Has the patient had 2 falls in the last year or 1 fall with injury or currently using an Ambulatory Assistive Device (Walker, Cane, Wheelchair, Crutches, etc.)? No PATIENT GENDER DATA: Assigned female at . status: : No status: NO. PATIENT RELEVANT IMPLANT DATA REVIEWED: Not Applicable PATIENT PRESENTS WITH AN IMPLANTABLE OR ATTACHED WELCOME CENTER ATTENDANT: No RADIOLOGY DEPARTMENT: General X-ray: Exam(s) Completed: Chest X-Ray PERIPHERAL IV DATA: Not applicable SIGNED BY: MARY Hernández June 27, 2024 5:37 PM [facility] 06-27-2024 Note SARS-COV-2 (AGENT OF COVID-19) RNA: Not detected INFLUENZA A RNA: Not detected INFLUENZA B RNA: Not detected RESPIRATORY SYNCYTIAL VIRUS (RSV) RNA: Not detected [facility] Comment on above: Performed By: #### [id number] ####[facility] LABIA [id number] [address] [place] 06-27-2024 Note HNO ID: [id number] Author: VASQUEZ BRUSH APRN.SCHOLARSHIP COUNSELOR Service: ? Author Type: Nurse Practitioner Type: Progress Notes Filed: 07/12/2024 22:37 Note Text: Subjective The patient consented to the use of ambient [employer] software for draft documentation of the visit consistent with [facility]?s Notice of Privacy Practices. HPI Paul is a 49-year-old female with a history of smoking, presenting with persistent gurgling sounds in the chest, dyspnea, and concerns about potential CHF. Paul reports experiencing gurgling sounds in her chest for several months, which have not improved despite various attempts at self-treatment. She was recently prescribed prednisone, which she started 2-3 days ago, and is currently taking azithromycin. She notes a significant increase in dyspnea, particularly when lying flat, and is unable to walk short distances without feeling like dying. She also reports a chronic cough, sometimes productive of clear or foamysputum, but denies yellow sputum production. She has not undergone pulmonary function tests to check for COPD, but mentions a previous unsuccessful attempt at a breathing test in 2022. Paul has a family history of CHF, with both her mother and grandmother affected. She expresses concern that her symptoms may be related to CHF, especially given her recent weight gain and feelings of bloating. She reports eating twice a day but continues to gain weight, with her stomach sitting on top of my legs. She also notes swelling and heaviness in her legs, making it difficult to walk. She has a history of valve problems and is scheduled for a cardiology appointment in July, following an echocardiogram. Paul also reports feeling freezing cold frequently, describing it as similar to flu symptoms. She has a history of anxiety and is currently taking Abilify 10 mg, which she reports has improved her mood and activity level. She also takes Lyrica for pain management, which she believes helps her mood more than any antidepressant she has tried. She has a history of suicidal ideation and notes that Lyrica helps prevent these thoughts. She has a prescription for anxiety medication but reports that it makes her feel like a zombie the next day. Paul is a smoker and has tried vaping once but found it too harsh on her lungs. She acknowledges the need to quit smoking but finds it difficult due to her current lifestyle and stress levels. She reports feeling exhausted and has difficulty sleeping due to concerns about her weight and potential heart issues. She has a history of high blood pressure, which she notes is often elevated when she is stressed. She has a wrist blood pressure monitor at home but has not used it yet. She also reports memory issues. Paul has a hernia near her umbilicus and is awaiting surgery. She expresses concern about the hernia worsening due to her current health issues. She also reports difficulty urinating and straining due to everything's messed up down there. She is worried about her ability to undergo surgery given her current health status. I reviewed past medical, surgical, social, and family histories today and updated chart. Allergies, chronic medications, and supplements were also reviewed. 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 Insomnia, unspecified Iron deficiency anemia 09/25/2023 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/2023 Major depressive disorder, single episode, mild Migraine stable with propranolol Nontoxic uninodular goiter Osteoarthritis of multiple joints Partial rectal prolapse RP (rectal prolapse) ~2012 Sleep apnea Tobacco abuse PAST SURGICAL HISTORY Procedure Laterality Date ABDOMINAL SURGERY HX COLON SURGERY HX 2019 rectal prolapse COLONOSCOPY 11/16/2014, 12/2017 No polyps/ severe diarrhea and prolapse CORRECT RECTAL PROLAPSE CT ABD/PELVIS WO CONTRAST PANEL 11/[address] COR/SAG/SINUS/BRAIN/HEAD 12/2005 normal DEBRIDEMENT MUSCLE AND FASCIA 20 SQ CM/< 11/03/2007 DEBRIDEMENT ULCER EXTREMITY LOWER performed by [facility] F[facility] at [facility] ECHO EXAM OF HEART 09/2000 bicuspid AV, minor AI, mild EGD 01/1999 small hiatal hernia EGD 01/2004 EGD 02/2007 mild gastritis EGD 11/16/2014 EGD 08/02/2022 ENDOSCOPY PROC 10/22/2019 LA grade A reflux esophagitis, Normal stomach, Normal duodenum HOLTER MONITOR 24 HOUR 04/2003 normal INSERT INTRAUTERINE DEVICE 02/2015 Mirena (more content not included)... [facility] 06-24-2024 Note HNO ID: [id number] Author: VASQUEZ BRUSH APRN.SCHOLARSHIP COUNSELOR Service: ? Author Type: Nurse Practitioner Type: Progress Notes Filed: 06/26/2024 20:27 Note Text: VIRTUAL VISIT PROGRESS NOTE This is a virtual visit using [employer] Video Visit. It required patient-provider interaction for the medical decision making as documented below. I have communicated my name and active licensure. The patient's identity and physical location were verified at the time of this visit. Either the patient or their legal digital media representative has been informed of the risks and benefits of -- and alternatives to -- treatment through a remote evaluation and consents to proceed with the evaluation remotely. Paul Davenport is a 49 year old female seen for follow-up dyspnea, chronic pain, leg edema She is still having trouble breathing Went to [facility] 06/19/24 and CXR done and it was normal Having wheezing and gurgling sound They give her prednisone x 5 days Chest was really tight - its starting to feeling better Still smoking and its hard to give it up Retaining water all over her body really bad Told her to take 20 mg lasix per day because it was affecting her kidneys Back pain has been really bad Pain is starting to radiate down her legs Belly button is about to pop feels like a hernia Has gained a lot of weight Depression - seeing psychiatry Was put back on Abilify She is doing a little better Getting out of bed now Has been in bed since February She will get in a mean mood and cannot control it so stays home and stays to herself She is very worried about her water weight Has ECHO ordered for the 07/09 She has difficulty breathing laying flat Lots of swelling in her feet Chronic back pain and chronic muscle pains have impaired her mobility The patient presents with multiple chronic and debilitating medical conditions requiring positioning accommodations that cannot be adequately provided by a standard bed. Specific indications include: Orthopnea necessitates head-of-bed elevation during sleep to prevent respiratory distress. A standard bed cannot reliably or safely maintain appropriate positioning throughout the night. Bilateral leg edema is managed through periodic elevation of the lower extremities, which is critical in reducing swelling and preventing complications such as skin breakdown or venous insufficiency. Chronic low back pain and fibromyalgia require customized positioning for pain management, including adjustable head and leg elevation, which reduces pressure on sensitive areas and improves rest quality. The combination of these conditions results in impaired mobility and requires a bed that allows for ease of transfer, safe repositioning, and adjustable support to avoid exacerbation of symptoms and prevent injury. 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 Insomnia, unspecified Iron deficiency anemia 09/25/2023 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/2023 Major depressive disorder, single episode, mild Migraine stable with propranolol Nontoxic uninodular goiter Osteoarthritis of multiple joints Partial rectal prolapse RP (rectal prolapse) ~2012 Sleep apnea Tobacco abuse PAST SURGICAL HISTORY Procedure Laterality Date ABDOMINAL SURGERY HX COLON SURGERY HX 2019 rectal prolapse COLONOSCOPY 11/16/2014, 12/2017 No polyps/ severe diarrhea and prolapse CORRECT RECTAL PROLAPSE CT ABD/PELVIS WO CONTRAST PANEL 11/[address] COR/SAG/SINUS/BRAIN/HEAD 12/2005 normal DEBRIDEMENT MUSCLE AND FASCIA 20 SQ CM/< 11/03/2007 DEBRIDEMENT ULCER EXTREMITY LOWER performed by [facility] FLO[facility] at [facility] ECHO EXAM OF HEART 09/2000 bicuspid AV, minor AI, mild EGD 01/1999 small hiatal hernia EGD 01/2004 EGD 02/2007 mild gastritis EGD 11/16/2014 EGD 08/02/2022 ENDOSCOPY PROC 10/22/2019 LA grade A reflux esophagitis, Normal stomach, Normal duodenum HOLTER MONITOR 24 HOUR 04/2003 normal INSERT INTRAUTERINE DEVICE 02/2015 Mirena LAPAROSCOPY DIAGNOSTIC age 24, 26 endometriosis, cysts removed MRI BRAIN 05/2003 normal SIGMOIDOSCOPY 01/1999 normal TONSILLECTOMY PRIMARY/SECONDARY Tonsillectomy FAMILY HISTORY Problem Relation Age of Onset Arthritis Mother other (lymphoma) Mother 54 other (CHF) Mother Heart Mother Diabetes Mother Arthritis Father Diabetes Father Thyroid Sister No Known Problems Sister (more content not included)... [facility] 06-20-2024 Note [facility] 06-19-2024 Note [facility] 06-19-2024 Note [facility] 06-16-2024 Note [facility] 05-07-2024 Note [facility] 04-24-2024 Note [facility] 04-24-2024 Note [facility] 04-08-2024 Note [facility] 02-28-2024 Note HNO ID: [id number] Author: WILLARD TY MA Service: ? Author Type: Comic Book Writer Type: Progress Notes Filed: 02/28/2024 16:42 Note Text: Review of Systems Constitutional: Negative for activity change, chills, fever and unexpected weight change. Gastrointestinal: Negative for bowel retention or incontinence Genitourinary: Negative for difficulty urinating. Negative for bladder retention or incontinence Musculoskeletal: Positive for arthralgias, back pain, gait problem, myalgias, neck pain and neck stiffness. Negative for joint swelling. Neurological: Positive for headaches. Negative for weakness and numbness. Psychiatric/Behavioral: Positive for dysphoric mood and sleep disturbance. Negative for suicidal ideas. The patient is nervous/anxious. [facility] 02-28-2024 Note HNO ID: [id number] Author: KATIE VALVREDE APRN.ALBERTO Service: ? Author Type: Nurse Practitioner Type: Progress Notes Filed: 02/28/2024 16:42 Note Text: [facility] Today's Date: 02/28/2024 Name: Paul Davenport : 1975 Purpose: New Patient Consultation Chief complaint: low back pain and right hand pain Referring Clinician: Lyric Parikh Pertinent Past Medical History: Fibromyalgia, migraine, narcolepsy, bilateral knee pain, Raynaud's disease, aortic valve stenosis, asthma, ROBIN, GERD, rectocele, IBS, hernia, constipation, thrombocytosis, HLD, bilateral hip pain, low back pain Pertinent Past Surgeries: none History of Present Illness (HPI): 02/28/2024 - Initial HPI (Obtained by Katie Valverde CNP). DURATION AND ONSET: The pain complaint has been present for approximately > 10 years. The pain had a gradual onset. The mechanism of injury is unknown. Pain has increased over the years RED FLAG SYMPTOMS: leg weakness. PAIN DESCRIPTION: Timing: Constant Character: Aching, stiffness feels she gets stuck Primary Location: low back worse on the right Radiation: none Exacerbating factors: Walking Relieving factors: Sitting, Heat Interferes with: physical activity and walking Patient is here today with low back pain and right hand pain. Patient is low back pain is described above. Patient stating that she is having a difficult time with any kind of activity or movement due to the pain. States she keeps on putting on weight because she has a difficult time moving. Patient has had x-rays in the past but it has been a while. Patient has had x-rays of her hand as well which shows arthritis. Patient has not had any intervention for her low back nor has she had any recent physical therapy. Patient currently is on Lyrica with some relief. Patient is also taking ibuprofen 800 mg as prescribed by PCP 1 to 2 tablets daily. Patient is here to see what could be done to help with her low back pain. Current Pain Medications: Neuropathics: lyrica NSAIDS: ibuprofen 1-2 tablets daily Muscle Relaxants: tizanidine Topicals: menthol rub Other Prescription or OTC Pain Medications: Opioids (when applicable): Anti-depressants or Mood-Stabilizers: Prozac Anti-Coagulants: None Therapies Attended (Current or Most Recent): No Current Therapies 02/28/2024 AG SPINE COMBINATION Questionnaire GREENLIGHT Completed Date 02/28/2024 Questionnaire Opiod Risk Tool Completed Date 02/28/2024 Comments 1 - Low Risk Greenlight Questionnaire GREENLIGHT Completed Date 02/28/2024 Opioid Risk Tool Opiod Risk Tool Date Completed 02/28/2024 Comments 1 - Low Risk LEONARD-7 Anxiety Score 12 Completed Date 02/28/2024 PHQ9P Score 17 Completed Date 02/28/2024 (All drug screens are appropriate unless indicated otherwise) Treatment History: PAIN PROCEDURES: DATE PROCEDURE IMPROVEMENT To date, no interventional pain management procedures performed at this practice. MEDICATIONS Taken TO DATE (for the chief complaint(s)): Neuropathics: Neurontin (Gabapentin) NSAIDS: Motrin (Ibuprofen) Muscle Relaxants: Zanaflex (Tizanidine) Topicals: [id number] (OTC) Other Prescription or OTC Pain Medications: Excedrin Opioids: None Compliance: PDMP website checked and validated on 02/28/2024 by Katie Valverde APRN.SCHOLARSHIP COUNSELOR All prescriptions have been APPROPRIATELY filled. No suspicious activity was identified. 02/28/2024 AG SPINE COMBINATION Questionnaire GREENLIGHT Completed Date 02/28/2024 Questionnaire Opiod Risk Tool Completed Date 02/28/2024 Comments 1 - Low Risk (All drug screens are appropriate unless indicated otherwise) Risk Assessment: LEONARD-7: 10/31/2022 11/22/2022 02/28/2024 LEONARD - 7 SCORES Score 11 9 12 (0-4) minimal anxiety, (5-9) mild anxiety, (10-14) moderate anxiety, (15-21) severe anxiety PHQ-9: 02/15/2023 08/03/2023 02/28/2024 PHQ-9 Score 8 19 17 (0-4) minimal depression, (5-9) mild depression, (10-14) moderate depression, (15-19) moderately severe depression, (20-27) severe depression Greenlight Questionnaire GREENLIGHT Completed Date 02/28/2024 Opioid Risk Tool Opiod Risk Tool Date Completed 02/28/2024 Comments 1 - Low Risk LEONARD-7 Anxiety Score 12 Completed Date 02/28/2024 PHQ9P Score 17 Completed Date 02/28/2024 Diagnostic Studies: Relevant Imaging: MRI Spine Report No resulted procedures found. 01/20/2024 11:00 AM - Radiology, [place] In Impression IMPRESSION: No acute osseous abnormality is seen of the bilateral knees. Degenerative joint space narrowing bilaterally as detailed.. Tax Analyst: PEYMAN Transcribe Date/Time: Jan 20 2024 10:55A Dictated by : FER SIU MD This examination was interpre (more content not included)... [facility] 02-27-2024 Note HNO ID: [id number] Author: VASQUEZ BRUSH APRN.SCHOLARSHIP COUNSELOR Service: ? Author Type: Nurse Practitioner Type: Progress Notes Filed: 03/09/2024 15:50 Note Text: VIRTUAL VISIT PROGRESS NOTE This is a virtual visit using Silecsom Video Visit. It required patient-provider interaction for the medical decision making as documented below. I have communicated my name and active licensure. The patient's identity and physical location were verified at the time of this visit. Either the patient or their legal digital media representative has been informed of the risks and benefits of -- and alternatives to -- treatment through a remote evaluation and consents to proceed with the evaluation remotely. Paul Davenport is a 48 year old female seen for headaches, back pain, fatigue. Keeps having headaches Sinus headaches Nose was really stuffed Treted with doxycycline and prednisone 02/06 Always SOB and coughing up sputum Medications helped a little She just got a new sinus rinse Was using neti pot Everyday takes aspirin and it doesn't even really get rid of her headaches Back of her neck hurts, sinuses and eyes Aching, flu-like symptoms Hasn't been able to do much around her house Back keeps going out on her Just got a new mattress pad Has pain management appt tomorrow Knee pain - the same Not really moving a lot She is exhausted all the time and does nothing Eyes just shut and she falls asleep Sometimes doesn't know what happens and just wakes up on her couch On CPAP = not working right Stopped it for awhile because she was getting air in her stomach Feels dizzy when she wake ups She is going to try molasses for her iron before she gets the iron infusions The mouth lesion is barely there now but still hurting a lot Had it biopsied at her sling operator = everything came back negative 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 Insomnia, unspecified Iron deficiency anemia 09/25/2023 Iron malabsorption 09/25/2023 Major depressive disorder, single episode, mild (HCC) Migraine stable with propranolol Nontoxic uninodular goiter Osteoarthritis of multiple joints Partial rectal prolapse RP (rectal prolapse) ~2012 Sleep apnea Tobacco abuse PAST SURGICAL HISTORY Procedure Laterality Date ABDOMINAL SURGERY HX COLON SURGERY HX 2019 rectal prolapse COLONOSCOPY 11/16/2014, 12/2017 No polyps/ severe diarrhea and prolapse CORRECT RECTAL PROLAPSE CT ABD/PELVIS WO CONTRAST PANEL 11/[address] COR/SAG/SINUS/BRAIN/HEAD 12/2005 normal DEBRIDEMENT MUSCLE AND FASCIA 20 SQ CM/< 11/03/2007 DEBRIDEMENT ULCER EXTREMITY LOWER performed by GEOFF FLO[facility] at [facility] ECHO EXAM OF HEART 09/2000 bicuspid AV, minor AI, mild EGD 01/1999 small hiatal hernia EGD 01/2004 EGD 02/2007 mild gastritis EGD 11/16/2014 EGD 08/02/2022 ENDOSCOPY PROC 10/22/2019 LA grade A reflux esophagitis, Normal stomach, Normal duodenum HOLTER MONITOR 24 HOUR 04/2003 normal INSERT INTRAUTERINE DEVICE 02/2015 Mirena LAPAROSCOPY DIAGNOSTIC age 24, 26 endometriosis, cysts removed MRI BRAIN 05/2003 normal SIGMOIDOSCOPY 01/1999 normal TONSILLECTOMY PRIMARY/SECONDARY Tonsillectomy FAMILY HISTORY Problem Relation Age of Onset Arthritis Mother other (lymphoma) Mother 54 other (CHF) Mother Heart Mother Diabetes Mother Arthritis Father Diabetes Father Thyroid Sister No Known Problems Sister Heart Attack Maternal Grandmother Cancer Maternal Grandfather Cancer Paternal Grandmother leukemia Cancer Maternal Uncle Breast Cancer Other paternal cousin Colon Cancer No Family History Ovarian cancer No Family History Anesthesia Problems No Family History Blood Clots No Family History Social History Tobacco Use Smoking status: Every Day Current packs/day: 0.75 Average packs/day: 0.8 packs/day for 20.0 years (15.0 ttl pk-yrs) Types: Cigarettes Smokeless tobacco: Never Tobacco comments: trying to quit Vaping Use Vaping status: Never Used Substance Use Topics Alcohol use: Not Currently Comment: less than once a month/2 beers Drug use: Not Currently Types: Marijuana Comment: helps stomach, rare Current Outpatient Medications Medication Sig FLUoxetine (PROZAC) 40 mg capsule Take 2 capsules by mouth once daily. esomeprazole (NEXIUM) 40 mg capsule Take 1 capsule by mouth two times a day. albuterol HFA (PROVENTIL HFA, VE (more content not included)... [facility] 02-07-2024 Note HNO ID: [id number] Author: CRYSTAL GABRIEL, DO Service: ? Author Type: Physician Type: Progress Notes Filed: 02/24/2024 07:32 Note Text: VIRTUAL VISIT PROGRESS NOTE This is a virtual visit using Silecsom Video Visit. It required patient-provider interaction for the medical decision making as documented below. I have communicated my name and active licensure. The patient's identity and physical location were verified at the time of this visit. Either the patient or their legal digital media representative has been informed of the risks and benefits of -- and alternatives to -- treatment through a remote evaluation and consents to proceed with the evaluation remotely. Paul Davenport is a 48 year old female seen for sinus infection. She has a headache, is not feeling well The pain is behind her right eye She has some sinus congestion She denies cough, fever. She takes propranolol to prevent migraines She feels nauseated She took an aspirin, a hot bath with peppermint oil, drank coffee, but none of that helped She takes ibuprofen 800 mg for pain as needed, and that did not help the pain She feels short of breath She has a history of asthma, and is a smoker She took a walk yesterday, and got short of breath more easily She had to use her inhaler 5 times yesterday, and had trouble breathing last night in bed 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 Insomnia, unspecified Iron deficiency anemia 09/25/2023 Iron malabsorption 09/25/2023 Major depressive disorder, single episode, mild (HCC) Migraine stable with propranolol Nontoxic uninodular goiter Osteoarthritis of multiple joints Partial rectal prolapse RP (rectal prolapse) ~2012 Sleep apnea Tobacco abuse PAST SURGICAL HISTORY Procedure Laterality Date ABDOMINAL SURGERY HX COLON SURGERY HX 2019 rectal prolapse COLONOSCOPY 11/16/2014, 12/2017 No polyps/ severe diarrhea and prolapse CORRECT RECTAL PROLAPSE CT ABD/PELVIS WO CONTRAST PANEL 11/[address] COR/SAG/SINUS/BRAIN/HEAD 12/2005 normal DEBRIDEMENT MUSCLE AND FASCIA 20 SQ CM/< 11/03/2007 DEBRIDEMENT ULCER EXTREMITY LOWER performed by GEOFF FLOOD at [facility] ECHO EXAM OF HEART 09/2000 bicuspid AV, minor AI, mild EGD 01/1999 small hiatal hernia EGD 01/2004 EGD 02/2007 mild gastritis EGD 11/16/2014 EGD 08/02/2022 ENDOSCOPY PROC 10/22/2019 LA grade A reflux esophagitis, Normal stomach, Normal duodenum HOLTER MONITOR 24 HOUR 04/2003 normal INSERT INTRAUTERINE DEVICE 02/2015 Mirena LAPAROSCOPY DIAGNOSTIC age 24, 26 endometriosis, cysts removed MRI BRAIN 05/2003 normal SIGMOIDOSCOPY 01/1999 normal TONSILLECTOMY PRIMARY/SECONDARY Tonsillectomy FAMILY HISTORY Problem Relation Age of Onset Arthritis Mother other (lymphoma) Mother 54 other (CHF) Mother Heart Mother Diabetes Mother Arthritis Father Diabetes Father Thyroid Sister No Known Problems Sister Heart Attack Maternal Grandmother Cancer Maternal Grandfather Cancer Paternal Grandmother leukemia Cancer Maternal Uncle Breast Cancer Other paternal cousin Colon Cancer No Family History Ovarian cancer No Family History Anesthesia Problems No Family History Blood Clots No Family History Social History Tobacco Use Smoking status: Every Day Current packs/day: 0.75 Average packs/day: 0.8 packs/day for 20.0 years (15.0 ttl pk-yrs) Types: Cigarettes Smokeless tobacco: Never Tobacco comments: trying to quit Vaping Use Vaping status: Never Used Substance Use Topics Alcohol use: Not Currently Comment: less than once a month/2 beers Drug use: Not Currently Types: Marijuana Comment: helps stomach, rare Current Outpatient Medications Medication Sig ibuprofen (MOTRIN) 800 mg tablet Take 1 tablet by mouth every 8 hours as needed for pain. fluticasone (FLONASE) 50 mcg/actuation nasal spray Use 1 [place] in each nostril once daily. Pregabalin (LYRICA) 200 mg capsule Take 1 capsule by mouth two times a day for 30 days. propranolol (INDERAL) 20 mg tablet Take 1 tablet by mouth two times a day. polyethylene glycol 3350 (MIRALAX) 17 gram packet Take 17 g by mouth once daily. Dissolve dose in 4 - 8 ounces of liquid and take as directed. tiZANidine (ZANAFLEX) 4 mg tablet Take 1 tablet by mouth daily at bedtime. LORazepam (ATIVAN) 1 mg tablet 1 mg. TRINTELLIX 5 mg tablet TAKE ONE TABLET BY MOUTH EVERY M (more content not included)... [facility] 01-16-2024 Note HNO ID: [id number] Author: FARHEEN LEES RT(R) Service: ? Author Type: Technologist Type: Progress Notes Filed: 01/16/2024 12:19 Note Text: Radiology Service Progress Note PATIENT NAME: Paul Davenport DATE OF SERVICE: January 16, 2024 TIME: 12:18 PM PATIENT IDENTITY VERIFICATION COMPLETED USING TWO (2) IDENTIFIERS: Name and Date of confirmed by patient verbally. FALL SCREENING: Has the patient had 2 falls in the last year or 1 fall with injury or currently using an Ambulatory Assistive Device (Walker, Cane, Wheelchair, Crutches, etc.)? No PATIENT GENDER DATA: Female. status: : No status: NO. PATIENT RELEVANT IMPLANT DATA REVIEWED: Not Applicable PATIENT PRESENTS WITH AN IMPLANTABLE OR ATTACHED WELCOME CENTER ATTENDANT: No RADIOLOGY DEPARTMENT: General X-ray: Exam(s) Completed: Lower Extremity X-Ray(s): Knee, AP Only Bilateral, Right knee ap,lat,obliques, Left knee ap,lat,obliques PERIPHERAL IV DATA: Not applicable SIGNED BY: RT Tabitha(R) January 16, 2024 12:18 PM [facility] 01-16-2024 Note HNO ID: [id number] Author: VASQUEZ BRUSH APRN.SCHOLARSHIP COUNSELOR Service: ? Author Type: Nurse Practitioner Type: Progress Notes Filed: 01/16/2024 23:33 Note Text: Subjective Paul Davenport is a 48 year old female here today for knee pain. I reviewed past medical, surgical, social, and family histories today and updated chart. Allergies, chronic medications, and supplements were also reviewed. HPI Patient injured right knee during a fall a few months ago - went down on both knees hard She is having severe pain and popping near the knee cap It is worse at night, can't sleep Knees give out on her with stairs Cannot get out of bed No motivation miserable all the time She is seeing the psychiatrist every month - keeps trying different things but none of it works Laying in bed all the time - makes pain worse Plans on seeing counselor Needs new back doctor Had accupuncture referral Swimming helps but she doesn't have the transportation to get there Keeps gaining weight Gets bloating and gassy She thinks its from her CPAP machine She isn't going to use it anymore until she sees sleep medicine Did notice she's not falling asleep during the day like she use Planned for surgery on 01/21 PAST MEDICAL HISTORY Diagnosis Date Allergic rhinitis, cause unspecified Aortic valve disorders mild Aortic valve stenosis Asthma Bicuspid aortic valve Bipolar I disorder, most recent episode (or current) unspecified Bulimia nervosa Cervical high risk human papillomavirus (HPV) DNA test positive 03/05/2009 normal pap, +hrhpv, repeat in one year Dilation of aorta (HCC) Dysmenorrhea Endometriosis Esophageal reflux Fibromyalgia History of cocaine use 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 Insomnia, unspecified Iron deficiency anemia 09/25/2023 Iron malabsorption 09/25/2023 Major depressive disorder, single episode, mild (HCC) Migraine stable with propranolol Nontoxic uninodular goiter Osteoarthritis of multiple joints Partial rectal prolapse RP (rectal prolapse) ~2012 Sleep apnea Tobacco abuse PAST SURGICAL HISTORY Procedure Laterality Date ABDOMINAL SURGERY HX COLON SURGERY HX 2019 rectal prolapse COLONOSCOPY 11/16/2014, 12/2017 No polyps/ severe diarrhea and prolapse CORRECT RECTAL PROLAPSE CT ABD/PELVIS WO CONTRAST PANEL 11/[address] COR/SAG/SINUS/BRAIN/HEAD 12/2005 normal DEBRIDEMENT MUSCLE AND FASCIA 20 SQ CM/< 11/03/2007 DEBRIDEMENT ULCER EXTREMITY LOWER performed by GEOFF FLOOD at [facility] ECHO EXAM OF HEART 09/2000 bicuspid AV, minor AI, mild EGD 01/1999 small hiatal hernia EGD 01/2004 EGD 02/2007 mild gastritis EGD 11/16/2014 EGD 08/02/2022 ENDOSCOPY PROC 10/22/2019 LA grade A reflux esophagitis, Normal stomach, Normal duodenum HOLTER MONITOR 24 HOUR 04/2003 normal INSERT INTRAUTERINE DEVICE 02/2015 Mirena LAPAROSCOPY DIAGNOSTIC age 24, 26 endometriosis, cysts removed MRI BRAIN 05/2003 normal SIGMOIDOSCOPY 01/1999 normal TONSILLECTOMY PRIMARY/SECONDARY Tonsillectomy ALLERGIES Dust and Metformin MEDICATIONS polyethylene glycol 3350 (MIRALAX) 17 gram packet Take 17 g by mouth once daily. Dissolve dose in 4 - 8 ounces of liquid and take as directed. tiZANidine (ZANAFLEX) 4 mg tablet Take 1 tablet by mouth daily at bedtime. LORazepam (ATIVAN) 1 mg tablet 1 mg. TRINTELLIX 5 mg tablet TAKE ONE TABLET BY MOUTH EVERY MORNING FOR depression Pregabalin (LYRICA) 200 mg capsule Take 1 capsule by mouth two times a day for 30 days. esomeprazole (NEXIUM) 40 mg capsule Take 1 capsule by mouth two times a day. albuterol HFA (PROVENTIL HFA, VENTOLIN HFA) 90 mcg/actuation inhaler Inhale 2 Puffs as instructed every 4 hours as needed for wheezing/shortness of breath. FLUoxetine (PROZAC) 40 mg capsule Take 2 capsules by mouth once daily. fluticasone (FLONASE) 50 mcg/actuation nasal spray Use 1 [place] in each nostril once daily. fluticasone-salmeterol (WIXELA INHUB) 250-50 mcg/dose inhaler Inhale 1 Puff as instructed two times a day. cholecalciferol (VITAMIN D3) 1,000 unit tab tablet Take 2 tablets by mouth once daily. levonorgestrel (MIRENA) 20 mcg/24 hr (5 years) IUD 1 Each by INTRAUTERINE route one time only. nabumetone (RELAFEN) 500 mg tablet Take 1 tablet by mouth two times a day as needed. (Patient not taking: Reported on 01/16/2024) FAMILY HISTORY Problem Relation Age of Onset Arthritis Mother other (lymphoma) Mother 54 other (CHF) Mother Heart Mother Diabetes Mother Arthritis Father Diabetes Father Thyroid Sister No Known Problems Sister Heart Attack Maternal Grandmother Cancer Maternal Grandfather Cancer Paternal Grandmother leukemia Cancer Maternal Uncle Breast Cancer Other paternal cousin Colon Cancer No Family History Ovarian cancer No Family History Anesthesia Problems No Family History Blood Clots No Family History Social History Tobacco Use (more content not included)... [facility] 01-08-2024 Note [facility] 01-08-2024 Note Patient Outreach (AG ACM) PAUL DAVENPORT ([id number]) 1975 F Date Time Provider Department 01/08/24 VASQUEZ BRUSH [facility] During your visit today, we recorded the following information about you: Allergies As of Date: 01/08/2024 Noted Allergy Reaction DUST 01/27/2009 Comments: extreme coughing, dry hives METFORMIN 04/09/2023 14 - Other: See Comments Date Reviewed: 01/05/2024 Reviewed by: Vasquez Brush, MULTIPLE PUNCH PRESS OPERATOR.SCHOLARSHIP COUNSELOR - Fully Assessed Visit Diagnosis:Encounter for screening mammogram for breast cancer [Z12.31] Order(s):[facility] SCREENING W SHAHID [[id number]] Order #: [id number] FUTURE Prescriptions as of 01/11/2024 - tiZANidine (ZANAFLEX) 4 mg tablet Take 1 tablet by mouth daily at bedtime. - nabumetone (RELAFEN) 500 mg tablet Take 1 tablet by mouth two times a day as needed. - LORazepam (ATIVAN) 1 mg tablet 1 mg. - cloNIDine HCl (CATAPRES) 0.1 mg tablet Take 1 tab by mouth once a day at bedtime for sleep/anxiety, hold med if SBP is less than 110 - TRINTELLIX 5 mg tablet TAKE ONE TABLET BY MOUTH EVERY MORNING FOR depression - Pregabalin (LYRICA) 200 mg capsule Take 1 capsule by mouth two times a day for 30 days. - esomeprazole (NEXIUM) 40 mg capsule Take 1 capsule by mouth two times a day. - albuterol HFA (PROVENTIL HFA, VENTOLIN HFA) 90 mcg/actuation inhaler Inhale 2 Puffs as instructed every 4 hours as needed for wheezing/shortness of breath. - FLUoxetine (PROZAC) 40 mg capsule Take 2 capsules by mouth once daily. - fluticasone (FLONASE) 50 mcg/actuation nasal spray Use 1 [place] in each nostril once daily. - fluticasone-salmeterol (WIXELA INHUB) 250-50 mcg/dose inhaler Inhale 1 Puff as instructed two times a day. - cholecalciferol (VITAMIN D3) 1,000 unit tab tablet Take 2 tablets by mouth once daily. - fluconazole (DIFLUCAN) 150 mg tablet Take 1 tablet by mouth once, may repeat dose in 72 hours for persistent symptoms - propranolol (INDERAL) 20 mg tablet take 1 tablet by mouth twice a day - levonorgestrel (MIRENA) 20 mcg/24 hr (5 years) IUD 1 Each by INTRAUTERINE route one time only. Problem List As Of Date 01/08/2024 Noted Resolved Bicuspid AV/AI.. 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] 07/31/2001 02/09/2017 Depressive disorder, not elsewhere classified [*07/31/2001 12/21/2015 Endometriosis of other specified sites [N80.8] 07/31/2001 02/09/2017 ESOPHAGEAL REFLUX [K21.9] 07/31/2001 5.2.1 CHRONIC POST TRAUMA H/A W/ MINOR HEAD TRA*05/19/2003 02/09/2017 Allergic Rhinitis [J30.9] 03/05/2009 Bulimia [F50.20] 04/08/2009 12/24/2022 Vitamin B12 Deficiency [E53.8] 06/23/2009 Dysmenorrhea [N94.6] Routine gynecological examination [Z01.419] 10/23/2012 02/09/2017 Tobacco abuse [Z72.0] 05/11/2021 History of endometriosis [Z87.42] 01/28/2015 Moderate episode of recurrent major depressive *12/21/2015 Raynaud's disease without gangrene [I73.00] 01/14/2016 Fibromyalgia [M79.7] 01/17/2016 Migraine without aura and without status migrai*01/17/2016 Encounter for monitoring proton pump inhibitor *02/09/2017 05/11/2021 Bicuspid aortic valve [Q23.81] 02/09/2017 Obesity, Class I, BMI 30-34.9 [E66.811] 02/09/2017 05/11/2021 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] 02/09/2017 LEONARD (generalized anxiety disorder) [F41.1] 04/11/2017 Risk and functional assessment [Z13.9] 06/04/2017 05/11/2021 Rectal prolapse [K62.3] 03/21/2018 08/19/2018 RP (rectal prolapse) [K62.3] 03/21/2018 04/11/2018 Hx of migraines [Z86.69] 04/03/2018 05/11/2021 Nicotine use disorder, F17.2 [F17.200] 04/12/2018 Mild intermittent asthma without complication [*05/28/2019 Obesity, Class III, BMI 40-49.9 (morbid obesity*05/11/2021 Dyslipidemia [E78.5] 05/19/2021 Prediabetes [R73.03] 05/19/2021 Obesity, Class II, BMI 35-39.9 [E66.812] 03/31/2022 Chronic bilateral low back pain without sciatic*04/26/2022 Bilateral leg pain [M79.604, M79.605] 04/26/2022 Muscle spasm of back [M62.830] 04/26/2022 Bilateral hip pain [M25.551, M25.552] 04/26/2022 Foot pain, bilateral [M79.671, M79.672] 04/26/2022 Chronic pain of both knees [M25.561, M25.562, G*04/26/2022 Decreased pedal pulses [R09.89] 04/26/2022 Housing instability [Z59.819] 04/26/2022 12/22/2022 Domestic concerns [Z65.8] 04/26/2022 12/22/2022 Lack of access to transportation [Z59.82] 04/26/2022 Aortic valve stenosis [I35.0] 01/21/2023 Ascending aorta dilatation (HCC) [I77.810] 01/21/2023 Condyloma acuminatum [A63.0] 05/01/2023 Diagnosed: 05/01/2023 Constipation [K59.00] 05/07/2013 Diagnosed: 05/01/2023 Hemorrhage of rectum and anus [K62.5] 05/07/2013 Diagnosed: 05/01/2023 Internal hemorrhoids without complication [K64.*05/07/2013 Diagnosed: 05/01/2023 Rectocele [N81.6] 05/01/2023 Asthmatic bronchitis [J45.909] 05/01/2023 Mild episode of recurrent major depressive diso*05/01/2023 Fatigue [R53.83] 05/01/2023 Onychomyco (more content not included)... [facility] 12-26-2023 Note HNO ID: [id number] Author: VASQUEZ BRUSH APRN.SCHOLARSHIP COUNSELOR Service: ? Author Type: Nurse Practitioner Type: Progress Notes Filed: 01/05/2024 22:41 Note Text: VIRTUAL VISIT PROGRESS NOTE This is a virtual visit using MyChart Zoom Video Visit. It required patient-provider interaction for the medical decision making as documented below. I have communicated my name and active licensure. The patient's identity and physical location were verified at the time of this visit. Either the patient or their legal digital media representative has been informed of the risks and benefits of -- and alternatives to -- treatment through a remote evaluation and consents to proceed with the evaluation remotely. Paul Davenport is a 48 year old female seen for pain. Legs and shoulders are very painful Worse with trying to sleep Aching pain Constant Her Lyrica was increased and started zanaflex - not getting much relief She also has arthritis pain She is scheduled with pain management Having trouble holding on to things Weak Pain in both hands Dropping things a lot Keeps gaining weight Anxiety has been bad Diet - doesn't eat all that bad Stomach keeps getting bigger - very bloated No matter what she eats she will get bloating and gas, the gas will get trapped and it hurts a lot She does not eat fast food No junk food Cooks home cooked meals Meloxicam - didn't help in the past Throat felt swollen and painful - got better No fevers, maybe just warm Cpap machine seems to help her sleep better She doesn't get up to pee as much Still tired all the time Has an ned and needs to hook it up 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 Insomnia, unspecified Iron deficiency anemia 09/25/2023 Iron malabsorption 09/25/2023 Major depressive disorder, single episode, mild (HCC) Migraine stable with propranolol Nontoxic uninodular goiter Osteoarthritis of multiple joints Partial rectal prolapse RP (rectal prolapse) ~2012 Sleep apnea Tobacco abuse PAST SURGICAL HISTORY Procedure Laterality Date ABDOMINAL SURGERY HX COLON SURGERY HX 2019 rectal prolapse COLONOSCOPY 11/16/2014, 12/2017 No polyps/ severe diarrhea and prolapse CORRECT RECTAL PROLAPSE CT ABD/PELVIS WO CONTRAST PANEL 11/[address] COR/SAG/SINUS/BRAIN/HEAD 12/2005 normal DEBRIDEMENT MUSCLE AND FASCIA 20 SQ CM/< 11/03/2007 DEBRIDEMENT ULCER EXTREMITY LOWER performed by [facility] F[facility] at [facility] EXAM OF HEART 09/2000 bicuspid AV, minor AI, mild EGD 01/1999 small hiatal hernia EGD 01/2004 EGD 02/2007 mild gastritis EGD 11/16/2014 EGD 08/02/2022 ENDOSCOPY PROC 10/22/2019 LA grade A reflux esophagitis, Normal stomach, Normal duodenum HOLTER MONITOR 24 HOUR 04/2003 normal INSERT INTRAUTERINE DEVICE 02/2015 Mirena LAPAROSCOPY DIAGNOSTIC age 24, 26 endometriosis, cysts removed MRI BRAIN 05/2003 normal SIGMOIDOSCOPY 01/1999 normal TONSILLECTOMY PRIMARY/SECONDARY Tonsillectomy FAMILY HISTORY Problem Relation Age of Onset Arthritis Mother other (lymphoma) Mother 54 other (CHF) Mother Heart Mother Diabetes Mother Arthritis Father Diabetes Father Thyroid Sister No Known Problems Sister Heart Attack Maternal Grandmother Cancer Maternal Grandfather Cancer Paternal Grandmother leukemia Cancer Maternal Uncle Breast Cancer Other paternal cousin Colon Cancer No Family History Ovarian cancer No Family History Anesthesia Problems No Family History Blood Clots No Family History Social History Tobacco Use Smoking status: Every Day Current packs/day: 0.50 Average packs/day: 0.5 packs/day for 20.0 years (10.0 ttl pk-yrs) Types: Cigarettes Smokeless tobacco: Never Tobacco comments: trying to quit Vaping Use Vaping status: Never Used Substance Use Topics Alcohol use: Not Currently Comment: less than once a month/2 beers Drug use: Not Currently Types: Marijuana Comment: helps stomach Current Outpatient Medications Medication Sig LORazepam (ATIVAN) 1 mg tablet 1 mg. cloNIDine HCl (CATAPRES) 0.1 mg tablet Take 1 tab by mouth once a day at bedtime for sleep/anxiety, hold med if SBP is less than 110 TRINTELLIX 5 mg tablet TAKE ONE TABLET BY MOUTH EVERY MORNING FOR depression Pregabalin (LYRICA) 200 mg capsule Take 1 capsule by mouth two times a day for 30 days. tiZANidine (ZANAFLEX) 4 mg tablet Take 1 tablet by mouth onc (more content not included)... [facility] 12-24-2023 Note HNO ID: [id number] Author: LYRIC PARIKH APRN.SCHOLARSHIP COUNSELOR Service: ? Author Type: Nurse Practitioner Type: Progress Notes Filed: 12/26/2023 21:36 Note Text: Patient disconnected before visit could be started. Appointment rescheduled for 1 pm today. [facility] 12-24-2023 Note HNO ID: [id number] Author: LYRIC PARIKH APRN.ALBERTO Service: ? Author Type: Nurse Practitioner Type: Progress Notes Filed: 12/24/2023 14:49 Note Text: VIRTUAL VISIT PROGRESS NOTE This is a virtual visit using [employer] Video Visit. It required patient-provider interaction for the medical decision making as documented below. I have communicated my name and active licensure. The patient's identity and physical location were verified at the time of this visit. Either the patient or their legal digital media representative has been informed of the risks and benefits of -- and alternatives to -- treatment through a remote evaluation and consents to proceed with the evaluation remotely. Paul Davenport is a 48 year old female, patient of AMINATA Brush, seen for her fibromyalgia. Pain is making it hard to get out of bad. Her back pain is severe. Right hand has arthritis and she is dropping objects. She is on Lyrica 150 mg BID but has been on 225 mg BID twice before and feels like she needs her dose increased. Has been to PT in the past but it didn't help. Legs ache significantly putting almost in tears. She hasn't been able to take are of her house and is difficult to do any ADLs. She is having rectal surgery next month and doesn't have any family support to help afterwards. 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 Insomnia, unspecified Iron deficiency anemia 09/25/2023 Iron malabsorption 09/25/2023 Major depressive disorder, single episode, mild (HCC) Migraine stable with propranolol Nontoxic uninodular goiter Osteoarthritis of multiple joints Partial rectal prolapse RP (rectal prolapse) ~2012 Sleep apnea Tobacco abuse PAST SURGICAL HISTORY Procedure Laterality Date ABDOMINAL SURGERY HX COLON SURGERY HX 2019 rectal prolapse COLONOSCOPY 11/16/2014, 12/2017 No polyps/ severe diarrhea and prolapse CORRECT RECTAL PROLAPSE CT ABD/PELVIS WO CONTRAST PANEL 11/[address] COR/SAG/SINUS/BRAIN/HEAD 12/2005 normal DEBRIDEMENT MUSCLE AND FASCIA 20 SQ CM/< 11/03/2007 DEBRIDEMENT ULCER EXTREMITY LOWER performed by GEOFF FLOOD at [facility] ECHO EXAM OF HEART 09/2000 bicuspid AV, minor AI, mild EGD 01/1999 small hiatal hernia EGD 01/2004 EGD 02/2007 mild gastritis EGD 11/16/2014 EGD 08/02/2022 ENDOSCOPY PROC 10/22/2019 LA grade A reflux esophagitis, Normal stomach, Normal duodenum HOLTER MONITOR 24 HOUR 04/2003 normal INSERT INTRAUTERINE DEVICE 02/2015 Mirena LAPAROSCOPY DIAGNOSTIC age 24, 26 endometriosis, cysts removed MRI BRAIN 05/2003 normal SIGMOIDOSCOPY 01/1999 normal TONSILLECTOMY PRIMARY/SECONDARY Tonsillectomy FAMILY HISTORY Problem Relation Age of Onset Arthritis Mother other (lymphoma) Mother 54 other (CHF) Mother Heart Mother Diabetes Mother Arthritis Father Diabetes Father Thyroid Sister No Known Problems Sister Heart Attack Maternal Grandmother Cancer Maternal Grandfather Cancer Paternal Grandmother leukemia Cancer Maternal Uncle Breast Cancer Other paternal cousin Colon Cancer No Family History Ovarian cancer No Family History Anesthesia Problems No Family History Blood Clots No Family History Social History Tobacco Use Smoking status: Every Day Current packs/day: 0.50 Average packs/day: 0.5 packs/day for 20.0 years (10.0 ttl pk-yrs) Types: Cigarettes Smokeless tobacco: Never Tobacco comments: trying to quit Vaping Use Vaping status: Never Used Substance Use Topics Alcohol use: Not Currently Comment: less than once a month/2 beers Drug use: Not Currently Types: Marijuana Comment: helps stomach Current Outpatient Medications Medication Sig LORazepam (ATIVAN) 1 mg tablet 1 mg. cloNIDine HCl (CATAPRES) 0.1 mg tablet Take 1 tab by mouth once a day at bedtime for sleep/anxiety, hold med if SBP is less than 110 TRINTELLIX 5 mg tablet TAKE ONE TABLET BY MOUTH EVERY MORNING FOR depression Pregabalin (LYRICA) 200 mg capsule Take 1 capsule by mouth two times a day for 30 days. tiZANidine (ZANAFLEX) 4 mg tablet Take 1 tablet by mouth once daily. pregabalin (LYRICA) 150 mg capsule Take 1 capsule by mouth two times a day for 30 days. esomeprazole (NEXIUM) 40 mg capsule Take 1 capsule by mouth two times a day. albuterol HFA (PROVENTIL HFA, VENTOLIN HFA) 90 mcg/actuation inhaler Inhale 2 Puffs as instructed every 4 hours as needed for wheezing/shortness (more content not included)... [facility] 10-30-2023 Note [facility] 10-30-2023 Note HNO ID: [id number] Author: MARIO JARVIS LPN Service: ? Author Type: LICENSED NURSE Type: Progress Notes Filed: 10/30/2023 09:33 Note Text: PVR = 0 cc/ml via bladder scan [facility] 10-21-2023 Note HNO ID: [id number] Author: VASQUEZ BRUSH APRN.SCHOLARSHIP COUNSELOR Service: ? Author Type: Nurse Practitioner Type: Progress Notes Filed: 10/21/2023 23:27 Note Text: This encounter was opened in error. [facility] 04-09-2023 Discharge summary Note Date/Time April 09, 2023 8:06pm [facility] Medical Records Department [address] [place] [address] Emergency Department Summary 04/09/23 MR#: [id number] Acct: [id number] Name: PAUL DAVENPORT Rep #:[id number] : 1975 48 From: Williams Cage MD PCP: Vasquez Brush NP-C Status:REG ER Location: ED HPI History of Present Illness Chief Complaint: General Illness Detail of Chief Complaint: Frequency and concern for prolapsed uterus Informant: patient Onset/Context/Timing Onset: Days Context: Sudden Onset Timing: Intermittent Quality: Things sticking out of my vagina Location: Vagina Current Severity: Unknown Maximum Severity: Protrudes when she is using the restroom Worsened by: Using the restroom Relieved by: Not applicable Associated Symptoms Associated Symptoms: Frequency Narrative Narrative: Patient is a 48-year-old female who presents with concerns she has a prolapsed uterus. She has a history of rectocele. She is also concerned she may have a cystocele. She states she is recently been dating someone for the past couple of months. She is sexually active. She denies signs or symptoms of . There is a strong family history diabetes. She endorses polyuria and polydipsia. She denies fever, chills night sweats. She denies abdominal pain, nausea, vomitdiarrhea. Denies constipation. She denies history of STI. She denies history of endometriosis or ovarian cyst. She is not complaining of pain. Prior similar symptoms: Yes (Rectocele) Recent Illness/Hospitalization: No PFSH PFSH Medical History no medical history no medical history Allergy/AdvReac Type Severity Reaction Status Date / Time metformin Allergy NEEDS Verified 04/09/23 17:35 FOLLOW-UP Surgical History no surgical history no surgical history Social History (Updated 04/09/23 @ 20:[address] Williams Cage MD) Smoking Status: Never smoker details: Social substance use type: does not use ROS ROS ED Constitutional Constitutional ED: Denies chills, fever(s), subjective or sweats Eyes Eyes: Denies blurry vision, change in vision or diplopia ENT ENT ED: Denies ear pain, rhinorrhea or sore throat Gastrointestinal Gastrointestinal: Denies abdominal pain, constipation, diarrhea, melena, nausea or vomiting Genitourinary Genitourinary ED: Reports urinary frequency; Denies dysuria or hematuria Musculoskeletal Musculoskeletal: Denies arthralgias, back pain, myalgias or neck pain Integumentary Denies rash Neurologic Neurologic: Denies headache(s) Psychiatric Psychiatric: Reports anxiety Endocrine Endocrinology: Reports polydipsia and polyuria; Denies cold intolerance or heat intolerance Hematologic/Lymphatic Hematologic/Lymphatic: Reports systems reviewed and no addt'l complaints, exceptas documented EXAM Physical Exam Const Vital Signs: 04/09/23 17:35 04/09/23 17:34 04/09/23 19:44 Temperature 97.6 F L Temperature Source Temporal Pulse Rate 85 93 Respiratory Rate 16 18 Respiratory Effort Normal Respiratory Pattern Normal Blood Pressure 151/115 H 143/68 H Blood Pressure Mean 127 93 Pulse Ox 95 98 Oxygen Delivery Method Room Air Room Air Positive well nourished and well developed General Appearance ED: well developed and NAD; Negative for pallor HEENT Reports moist mucous membranes HEENT Narrative: Head is atraumatic and normocephalic. Ears normal. Nares patent. Posterior pharynx is normal. Eyes PERRL and EOMs intact bilaterally General Eye ED: Negative for pale conjunctiva or scleral icterus Neck no lymphadenopathy, supple and no JVD Chest Wall inspection of chest normal and palpation of chest normal Resp normal respiratory effort Cardio regular rate, regular rhythm, S1 normal heart sound, S2 normal heart sound and no murmurs GI normal to inspection, nondistended, normoactive bowel sounds, non-tender, non-distended and no masses; Negative for hepatosplenomegaly Narrative: External genitalia is remarkable for condyloma acuminata. Vaginal mucosa appears normal. Cervical mucosa is normal. There is no discharge or bleeding. There is evidence of a rectocele. There is no evidence of a cystocele. There is no evidence of prolapse uterus. Back/Spine no CVA tenderness Extremity normal to inspection General Extremety ED: Negative for edema or tenderness General Extremity: Negative for edema Neuro oriented x3, CN's II-XII intact bilaterally and no sensory deficits noted Sensorium / Orientation: alert Psych mental status grossly normal Skin no rashes or lesions noted, no wounds and skin turgor normal General Skin Exam: Negative for jaundice or pallor MDM MDM MDM Narrative Medical decision making narrative: Differential diagnosis is rectocele, cystocele, prolapsed uterus. Will assess for diabetes since her strong family history and she is reporting increased urination with polyuria polydipsia. Patient has evidence of condyloma acuminata. She is to follow-up with her [employer] Dr. Stephanie Serrato. She also needs to follow-up with her regarding the rectocele. There is no evidence of a prolapsed uterus or cystocele. Lab Data Attestation: I reviewed the patient's lab results. Lab results narrative: UA reveals no Insa infection and glucose is 104. Labs: Laboratory Results - last 24 hr 04/09/23 04/09/23 19:40 19:41 Urine Color Yellow Urine Clarity Clear Urine pH 5.0 Ur Specific [place] 1.025 Urine Protein Negative Urine Glucose (UA) Normal Urine Ketones 5 H Urine Occult Blood 25 H Urine Nitrite Negative Urine Bilirubin Negative Urine Urobilinogen Normal Ur Leukocyte Esterase Negative Urine RBC 0-5 SEEN Urine WBC 0-5 SEEN Ur Squamous Epith Cells 0-5 SEEN Urine Bacteria RARE Urine Mucus RARE POC Glucose 104 Discharge Plan Triage Chief Complaint: General Illness ED Provider: Williams Cage Dx/Rx/DC Orders Clinical Impression: Rectocele, Frequency of micturition, Condyloma acuminatum Instructions: POP Surg Rectocele Enterocele, ED Genital Warts Primary Care Provider: Vasquez Brush NP Referrals: Stephanie Serrato NP, SOFTWARE TEST DEVELOPER-C [Non-Staff] - 1 Week Vasquez Brush NP, SOFTWARE TEST DEVELOPER-C [Primary Care Provider] - Disposition Disposition: Home, Self Care What to do if you have Problems For any increased pain, shortness of breath, bleeding, nausea or vomiting, chestpain, or any unexpected problems, contact your Primary Care Provider. Call [facility] ([phone]) or report to the closest Emergency Room. Call 911 if necessary. 04/09/232005 <Electronically signed by Williams Cage MD> Cosigner Signature (if applicable): CC: AMINATA-Best Brush ~ Signed [facility] Work Phone: [phone] 802-556707-11-2023 History of Present illness Narrative* LASHAUN Enriquez - 08/29/2022 11:58 AM EDT Service Plan Date Created:08/29/2022 Strengths Client is being discharged from CM services due to no current ongoing need Assessed Needs Client is being discharged from CM services due to no current ongoing need Level of Service: Outpatient Service Plan Plan Comments: DISCHARGE PROGRESS NOTE Paul Davenport, 47 year old, female is being closed for case management services due to completingcurrent treatment needs . Client progress made includes client stated she is currently living out of [facility] and is doing well. Screenings: Current: not able to assess Previous: 09/13/20 PHQ9 (19) GAD7 (9) Referrals made No orders of the defined types were placed in this encounter. Service Conclusion Criteria/Transition/Discharge: Client is being discharged from CM services. PM spoke to client on 08/29/2022 regarding services. Client stated she is living out of [facility] and is doing well. Her PCP is prescribing her medication and has submitted a referral for the client to get linked with psychiatry services. Participants for Today s Plan: Patient acknowledges participating, agrees with plan. No other participants Copy Provided: None / ADMINISTRATIVE: Administrative Information: Document Type: [facility] [phone] History of Past illness Narrative* Problem Noted Date Diagnosed Date Resolved Date Tobacco abuse 09/30/2018 07/30/2019 Depression 12/21/2015 07/30/2019 Mild recurrent major depression (HCC-CMS) 03/19/2015 07/30/2019 documented as of this encounter (statuses as of 08/29/2022) [facility] Work Phone: Evaluation noteNo assessment information available [facility] Work Phone: Evaluation note* Diagnosis Chest pain, unspecified type- Primary documented in this encounter [facility] Work Phone: Summary Purpose Family History No Family History Records FoundNo Family History Records FoundNo Family History Records FoundNo Family History Records FoundNo Family History Records FoundNo Family History Records FoundNo Family History Records FoundNo Family History Records FoundNo Family History Records FoundNo Family History Records FoundNo Family History Records FoundNo Family History Records FoundNo Family History Records Found Advance Directives No Advanced Directives Records Found Advance Directive Response Recorded Date/ Time Living Will No April 09 5:34pm Power of Resource Efficiency Manager No April 09, 2023 5:34pm Procedure Findings Note HNO ID: [id number] Author: Melquiades Houston (Fel) Service: Colorectal Author Type: Fellow Type: Brief Op Note Filed: 04/10/2018 12:46 PM Note Text: BRIEF OPERATIVE NOTE - COLORECTAL SURGERY Log ID: [id number] Surgery/Procedure Date: 04/10/2018 Incision/Procedure Start Time: 9:03 AM Incision Close/Procedure End Time: 12:30 PM Surgeon(s) and Sterile Technician(s): Surgeon(s) and Role: * Joey Pickett - Primary * Kylee Houston (Fel) - Fellow No Additional Staff Procedures and Anesthesia: Procedure(s) and Anesthesia Type: * PROCTOPEXY LAPAROSCOPIC - General Stoma Type: N/A Findings: low peritoneal reflection, polypropeline mesh used Estimated Blood Loss: 20ml Specimens: None Diagnosis Code(s): Pre-Op Diagnosis Codes: * RP (rectal prolapse) [K62.3] Postop Diagnosis: Same Drains: None Wound Classification: Class 1, operative wound clean, non-traumatic, with no inflammation encountered, no break in technique, gastrointestinal and genitor-urinary tracts not entered Complications: None SIGNATURE: Namita (more content not included)... Reason for Referral * Asthmatic Bronchhitis * chest pain, gastritisgastritis Health Concerns Assessment Noted Time PHQ-9 Depression Total Score: 19 021 10:07 AM PDT Chief Complaint and Reason for Visit Chief Complaint general illness Additional Source Comments INFORMATION SOURCE (unrecogn ized section and content) DATE CREATED AUTHOR 01/08/2018 [facility] DATE CREATED AUTHOR AUTHOR'S ORGANIZ ATION [facility] DATE CREATED AUTHOR AUTHOR'S ORGANIZ ATION 02/27/2018 [facility] DATE CREATED AUTHOR AUTHOR'S ORGANIZ ATION 04/15/2018 [facility] DATE CREATED AUTHOR AUTHOR'S ORGANIZ ATION 03/13/2020 [facility] DATE CREATED AUTHOR AUTHOR'S ORGANIZ ATION 05/21/2021 [facility] DATE CREATED AUTHOR AUTHOR'S ORGANIZ ATION 03/25/2022 [facility] DATE CREATED AUTHOR AUTHOR'S ORGANIZ ATION 08/24/2024 [facility] DATE CREATED AUTHOR AUTHOR'S ORGANIZ ATION 09/12/2024 [facility] DATE CREATED AUTHOR AUTHOR'S ORGANIZ ATION 10/01/2024 [facility] DATE CREATED AUTHOR AUTHOR'S ORGANIZ ATION 10/10/2024 [facility] DATE CREATED AUTHOR AUTHOR'S ORGANIZ ATION 10/11/2024 [facility] DATE CREATED AUTHOR AUTHOR'S ORGANIZ ATION 10/12/2024 [facility] <item><item> Privacy Markings (unrecogniz ed section and content) Section Author: Rachelle Anne PROHIBITION ON REDISCLOSURE OF CONFIDENTIAL INFORMATION This notice accompanies a disclosure of information concerning a client made to you with the consent of such client. Section Author: Rachelle Anne PROHIBITION ON REDISCLOSURE OF CONFIDENTIAL INFORMATION This notice accompanies a disclosure of information concerning a client made to you with the consent of such client. Reason for Visit (unrecogniz ed section and content) Reason Comments Behavioral Health Discharge Summary Reason Comments Chest Pain Pt had open heart rodríguez rgery 2 weeks ago and states she is out of pain medication and the pain is worsening Care Teams (unrecognized sec tion and content) Team Status: Active Member Role Status Dates Vasquez Brush NP, SOFTWARE TEST DEVELOPER-C Primary Care Provider Active Team Status: Inactive Member Role Status Dates Dr. Williams Cage MD Emergency Provider Active Vasquez Brush NP, SOFTWARE TEST DEVELOPER-C Primary Care Provider Active Training Analyst Relationship Specialty Start Date End Date Generic, External Data Provider [place] [address] PCP - General 09/28/24 Goals (unrecognized section and content) Goals may be documented in a n alternate section Scheduled Active and Recently Administ ered Medications (unrecognized section and content) Medication Order 09/27/2024 09/28/2024 09/29/2024 HYDROmorphone (Dilaudid) injection 1 mg (COMPLETED) 1 mg, intravenous, Once, On Sun09/29/24 at 0320, For 1 dose 0325 (Given - Provid er: Jessica Miles RN) iohexol (OMNIPaque) 350 mg iodine/mL solution 75 mL (COMPLETED) 75 mL, intravenous, Once in imaging, Starting on Sun09/29/24 at 0124, For 1 dose 0126 (Given - Provid er: Oumou Aguilar) morphine injection 4 mg (COMPLETED) 4 mg, intravenous, Once, On Sun09/29/24 at 0025, For 1 dose 0034 (Given - Provid er: Pepe Holly RN) orphenadrine (Norflex) injection 60 mg (COMPLETED) 60 mg, intravenous, Once, On Sun09/29/24 at 0435, For 1 dose 0442 (Given - Provid er: Jessica Miles RN) FOR RECORDS PERTAINING TO PATIENTS WHO ARE OR HAVE BEEN ENROLLED IN A CHEMICAL DEPENDENCY/SUBSTANCEABUSE PROGRAM, SOME INFORMATION MAY BE OMITTED. This clinical summary was aggregated from multiple sources. Caution should be exercised in using it in the provision of clinical care. This summary normalizes information from multiple sources, and as a consequence, information in this document may materially change the coding, format and clinical context of patient data. In addition, data may be omitted in some cases. CLINICAL DECISIONS SHOULD BE BASED ON THE PRIMARY CLINICAL RECORDS. [employer] [facility] provides no warranty or guarantee of the accuracy or completeness of information in this document.
[2024-10-20 14:42] LABS: Hematocrit 33.4 % (37-47); Hemoglobin 10.2 g/dL (12.0-15.0); Immature Granulocytes Count 0.090 X10^3/uL (0.0-0.0); Mean Corp Hgb Conc 30.5 g/dL (32-36); Mean Corpuscular Volume 85.0 fL (81-99); Mean Platelet Vol. 9.2 fl (6.2-12.0); NRBC Flagged by Analyzer 0 % (0-5); Platelet Count 522 K/mm3 (150-450); RBC Distribution Width CV 14.4 % (11.6-14.6); RBC Distribution Width SD 44.6 fl (35.1-43.9); Red Blood Count 3.93 M/mm3 (4.2-5.4); White Blood Count 13.2 K/mm3 (4.4-11.0)
[2024-10-20 14:54] LABS: D-Dimer Quantitative (DVT/PE) 1.49 FEU/ug/m (0.27-0.49)
--- NOTE | 2024-10-20 14:58 | CT_ITS ---
PROCEDURE: CTA CHEST W/WO CONTRAST 10/20/2024 REASON FOR EXAM: CP POST OPEN HEART SURGERY TECHNIQUE: Procedure Code: [id number] Modality: CT Procedure: CTA CHEST W/WO CONTRAST Multiplanar Sagittal and Coronal images were obtained. MIP reconstructions were generated CONTRAST: Isovue 370 VOLUME: 99 mL One or more dose reduction techniques were used (e.g., Automated exposure control, adjustment of the mA and/or kV according to patient size, use of iterative reconstruction technique). RADIATION DOSE SUMMARY: CTDlvol: 3.38+ 10.15+ 22.56 mGy DLP: 781.32 mGycm COMPARISON: No prior CT or CTA chest FINDINGS: Mild motion limitation. Heart/pericardium: Recent appearing sternotomy with bioprosthetic aortic valve, again with fracture of the cranial most manubrial wire, ununited sternal margins, and dehiscence of the manubrial incision of roughly 1.7 cm. Sternal margins appear are more closely apposed, with up to 3 mm of separation along the sternotomy margins. Ill-defined fluid and stranding in the presternal and retrosternal/anterior mediastinal regions, some of which appears of intermediate density and is compatible with blood products however no large/organized mediastinal hematoma is present. Trace pericardial thickening/pericardial fluid. Coronary atherosclerosis and/or stents. Aorta: Unremarkable. Pulmonary arteries: Top-normal in caliber. Exam not optimized for detection of pulmonary emboli, however none are definitely seen centrally. Lymph nodes: Unremarkable. Lungs/pleura: Very mild linear likely atelectasis/scarring. Airways: Unremarkable. Chest wall: As above. Peripherally calcified subcentimeter RIGHT lobe thyroid nodule.. Upper abdomen: Grossly unremarkable. Musculoskeletal: As above. Mild spondylosis.. CT/CTA Chest W/WO Contrast IMPRESSION: 1. Recent appearing operative changes as above. Presternal and retrosternal st randing/ill defined fluid are nonspecific in the recent operative context and may be postoperative however surgical site infecti on cannot be excluded by imaging. Minimal anterior mediastinal high attenuation fluid probably reflects a component of bl ood products however no sizable mediastinal hematoma or obvious organized abscess is present currently. 2. Redemonstrated fracture of cranial most manubrial wire with associated dehis cence of ununited manubrial fragments of roughly 1.7 cm. Minimally dehiscent ununited sternotomy margins. 3. Recommend outpatient thyroid ultrasound. 4. Additional description as above. Reading Location: [id number]
[2024-10-20 15:19] LABS: Anion Gap 12 (5-15); BUN 16 mg/dL (4-19); BUN/Creat Ratio 21.4 RATIO (10-20); Calcium,Total 9.0 mg/dL (7.6-11.0); Carbon Dioxide 25.2 mmol/L (21.0-32.0); Chloride 102 mmol/L (98-108); Estimated Creatinine Clearance 117.62 ml/min (50-250); Glucose 124 mg/dL (70-99); Potassium 3.5 mmol/L (3.3-5.1); Troponin T High Sensitivity 12 ng/L (<=14)
[2024-10-20] MEDS: HYDROcodone Bitartrate/Apap 5/325 Tablet PO (15:50)
[2024-10-20 16:00] VITALS: BP 122/78; PULSE 80; RESP 18; O2SAT 98
[2024-10-20 16:39] LABS: Troponin T High Sens 2 HR 12 ng/L (<=14)
--- NOTE | 2024-10-20 17:13 | ED.RN ---
pt walked out of room and asked to be discharged, this rn explained to pt she came in for chest pain and the dr needs to review her results. this rn asked pt who unhooked her from the monitor, pt replied me
--- NOTE | 2024-10-20 17:55 | ED.RN ---
PT STANDING IN ROOM ON PHONE REFUSING TO WEAR MONITOR EQUITMENT
[2024-10-20] MEDS: Ketorolac 30 MG/ML Syringe IV (18:24)
[2024-10-20 19:17] LABS: Troponin T High Sens 4 HR 11 ng/L (<=14)
[2024-10-22 08:09] LABS: CRP, High Sensitivity 49.75 mg/L (0.00-3.00)
== END 2024-10-20 19:44 | disposition home or self-care (01) ==
PROVIDERS: Emergency Provider Emergency Medicine; PCP Nurse Practitioner Family; Visit Provider Emergency Medicine
DX: T84.89XA Other specified complication of internal orthopedic prosthetic devices, implants and grafts, initial encounter (principal); X58.XXXA Exposure to other specified factors, initial encounter; R07.89 Other chest pain; I10 Essential (primary) hypertension; F17.200 Nicotine dependence, unspecified, uncomplicated; Z95.2 Presence of prosthetic heart valve; Z79.899 Other long term (current) drug therapy
CPT/HCPCS: 71046; 71275; 80048; 84484; 85025; 85379; 85652; 86141; 93005; 96374; 96375; 99284; Q9967; A4216; J2405

== ENCOUNTER → 2025-01-01 | Outpatient (CLI) | payer MEDICARE, MEDICAID, SELFPAY ==
--- NOTE | 2025-01-01 10:18 | MRI_ITS ---
PROCEDURE: SPINE LUMBAR (ROUTINE) 01/01/2025 REASON FOR EXAM: RADICULOPATHY TECHNIQUE: Procedure Code: MRISPL Modality: MR Procedure: SPINE LUMBAR (ROUTINE) COMPARISON: None. FINDINGS: Vertebrae: Preserved in height and signal. Alignment: Well aligned. Conus Medullaris: Unremarkable. L1-2: No significant foraminal or canal stenosis. L2-3: No significant foraminal or canal stenosis. L3-4: No foraminal or canal stenosis. L4-5: Disc desiccation. Small disc bulge. Facet joint arthropathy with fluid effusion. No right foramina stenosis. No significant left foramina stenosis. L5-S1: Disc bulge. Facet joints arthropathy. Sacrum: Unremarkable. MRI/Spine Lumbar (Routine) IMPRESSION: L4-L5, disc desiccation. Small disc bulge. Facet joint arthropathy with fluid e ffusion. No right foramina stenosis. No significant left foramina stenosis. The remainder levels are unremarkable. Reading Location: [id number]
== END | disposition home or self-care (01) ==
LOC: OPMRI 10:04
PROVIDERS: PCP Nurse Practitioner Family; Referring Provider Anesthesiology Pain Medicine; Visit Provider Anesthesiology Pain Medicine
DX: M54.16 Radiculopathy, lumbar region (principal)
CPT/HCPCS: 72148

== ENCOUNTER 2025-01-09 22:10 | Emergency (ER) | payer MEDICARE, MEDICAID, SELFPAY ==
[2025-01-09 22:13] VITALS: BP 147/76; PULSE 102; RESP 18; TEMP 36.7; O2SAT 93; BMI 55.3
--- NOTE | 2025-01-09 22:17 | EKG12_ITS ---
Test Reason : CP Blood Pressure : */* mmHG Vent. Rate : 106 BPM Atrial Rate : 106 BPM P-R Int : 162 ms QRS Dur : 90 ms QT Int : 334 ms P-R-T Axes : 61 36 83 degrees QTcB Int : 443 ms Sinus tachycardia Nonspecific T wave abnormality Abnormal ECG Confirmed by YOSSI HUTCHINSON, GÉNESIS ([id number]), editor & co founder VERÓNICA LARIOS ([id number]) on 01/12/2025 1:36:20 PM Referred By: MIKA Confirmed By: GÉNESIS SY MD
[2025-01-09 23:04] LABS: Hematocrit 34.8 % (37-47); Hemoglobin 9.8 g/dL (12.0-15.0); Immature Granulocytes Count 0.100 X10^3/uL (0.0-0.0); Mean Corp Hgb Conc 28.2 g/dL (32-36); Mean Corpuscular Volume 79.5 fL (81-99); Mean Platelet Vol. 9.9 fl (6.2-12.0); NRBC Flagged by Analyzer 0.4 % (0-5); Platelet Count 463 K/mm3 (150-450); RBC Distribution Width CV 18.8 % (11.6-14.6); RBC Distribution Width SD 51.2 fl (35.1-43.9); Red Blood Count 4.38 M/mm3 (4.2-5.4); White Blood Count 14.7 K/mm3 (4.4-11.0)
--- OUTSIDE RECORDS SUMMARY | 2025-01-09 23:04 | XMS RPT_ITS | CCD ---
Author Organization [facility] Care Team Providers Care Department Director Name Role Phone [facility] Unavailable U navailable Linz, Christopher M Unavailable Unavailable Linz, Christopher M Unavailable Unavailable LINZ, CHRISTOPHER M Unavailable Unavailable LINZ, CHRISTOPHER M Unavailable Unavailable Paul Boland Unavailable Theodora vailable LINZ, CHRISTOPHER M Unavailable Unavailable LINZ, [...] Marin Attending Unavailable Unavailable Primary Care Provider UnavailMONIQUE Roberts Referring Unavailable VASQUEZ BRUSH Primary Care Unavailable Generic, External Data Provider Primary Care Pro vider Unavailable RIKY CHEW Attending Unavailable Trill INTERIOR DESIGN ASSISTANT, Vasquez Primary Care Unavailable Jorge Monique Attending Unavailable Trill INTERIOR DESIGN ASSISTANT, Vasquez Primary Care Unavailable Hiram Garcia Attending Unavailable Triamos INTERIOR DESIGN ASSISTANT, Vasquez Primary Care Unavailable Elmo Quezada Attending Unavailable Elmo Quezada Referring Unavailable Trudi INTERIOR DESIGN ASSISTANT, Vasquez Primary Care Unavailable Emil Quan Attending Unavailabl e Emil Quan Referring Unavailabl e TRILL, VASQUEZ C Primary Care Unavailable UNAI, SHINYA Referring Unavailable TRILL, VASQUEZ C Primary Care Unavailable UNAI, SHINYA Referring Unavailable UNAI, SHINYA Referring Unavailable TRILL, VASQUEZ C Primary Care Unavailable UNAI, SHINYA Referring Unavailable TRILL, VASQUEZ C Primary Care Unavailable UNAI, SHINYA Referring Unavailable TRILL, VASQUEZ C Primary Care Unavailable UNAI, SHINYA Attending Unavailable TRILL, VASQUEZ C Primary Care Unavailable MONIQUE CA Referring Unavailable TRILL, VASQUEZ C Primary Care Unavailable BENIGNO CONTRERAS Attending Unavailable ANN DANIEL Referring Unavailable TRILL, VASQUEZ C Primary Care Unavailable YINKA BRYANT Admitting Unavailable UNAI, SHINYA Attending Unavailable UNAI, SHINYA Referring Unavailable TRILL, VASQUEZ C Primary Care Unavailable JOEY PICKETT Referring Unavailable JOEY PICKETT Attending Unavailable TRILL, VASQUEZ C Primary Care Unavailable UNAI, SHINYA Referring Unavailable TRILL, VASQUEZ C Primary Care Unavailable TRILL, VASQUEZ C Primary Care Unavailable UNAI, SHINYA Referring Unavailable READ, PALMIRA Referring Unavailable CARO STEEN Attending Unavailable TRILL, VASQUEZ C Primary Care Unavailable TRILL, VASQUEZ C Primary Care Unavailable TRILL, VASQUEZ C Referring Unavailable SD DINH Attending Unavailable TRILL, VASQUEZ C Primary Care Unavailable TRILL, VASQUEZ C Referring Unavailable SELF Referring Unavailable FAUSTINO CROOK Attending Unavailable TRILL, VASQUEZ C Primary Care Unavailable TRILL, VASQUEZ C Referring Unavailable TRILL, VASQUEZ C Primary Care Unavailable TRILL, VASQUEZ C Referring Unavailable TRILL, VASQUEZ C Primary Care Unavailable MAXWELL MONZON Attending Unavailable TRILL, VASQUEZ C Referring Unavailable TRILL, VASQUEZ C Primary Care Unavailable UNAI, SHINYA Referring Unavailable TRILL, VASQUEZ C Primary Care Unavailable UNAI, SHINYA Referring Unavailable TRILL, VASQUEZ C Primary Care Unavailable UNAI, SHINYA Referring Unavailable TRILL, VASQUEZ C Primary Care Unavailable JACI SORTO Attending Unavailable UNAI, SHINYA Referring Unavailable TRILL, VASQUEZ C Primary Care Unavailable JOEY PICKETT Referring Unavailable TRILL, VASQUEZ C Primary Care Unavailable TRILL, VASQUEZ C Primary Care Unavailable TRILL, VASQUEZ C Referring Unavailable TRILL, VASQUEZ C Primary Care Unavailable TRILL, VASQUEZ C Referring Unavailable TRILL, VASQUEZ C Primary Care Unavailable SELF Referring Unavailable SLEIK, FRANTZALED VENTURAD Attending Unavailable TRILL, VASQUEZ C Primary Care Unavailable LILLY CARRASCO Attending Unavailable TRILL, VASQUEZ C Primary Care Unavailable LUNA, LILLY E Referring Unavailable TRILL, VASQUEZ C Primary Care [...] C Primary Care Unavailable SELF Referring Unavailable VERONIKA SUTHERLAND Attending Unavailable TRILL, VASQUEZ C Primary Care [...] VASQUEZ C Primary Care Unavailable LYRIC PARIKH Referring Unavailable KATIE VALVERDE Attending Unavailable TRILL, VASQUEZ C Primary Care Unavailable SLEIK, KHALED MELOUD Referring Unavailable SLEIK, KHALED MARILUZOUD Attending Unavailable SLEIK, KHALED MELOUD Admitting Unavailable REGINO GUTIERREZ Attending Unavailable JOSÉ LUIS VALLADARES Admitting Unavailable TRILL, VASQUEZ C Primary Care Unavailable Allergies Allergy Classification Reported Allergen(s) Allergy Type Date of Onset Reaction(s) Facility (4 sources) Dust; Translations: [DUST] Propensity to adverse reactions (disorder) 9 [facility] Repository (6 sources) metFORMIN; Translations: [METFORMIN] Drug Allergy 4 Unknown [facility] (1 source) metFORMIN Drug Allergy 5 [facility] Repository Medications Current Medications Medication Drug Class(es) [...] directed Quantity: 1 Refills: 0 Ordered: 13-Feb-2022 Maxwell Marin Start: 13-Feb-2022 Generic Substitution Allowed Comments: Do [...] day Quantity: 0 Refills: 0 Ordered: 20-Mar-2022 cSarlet Florentino Generic Substitution Allowed pantoprazole 40 mg [...] Ordered: 20-Mar-2022 Pepe Salmon Start: 20-Mar-2022 End: 08-Apr-2022 Generic Substitution Allowed Comments: Do not take [...] Drug Class(es) Dates Sig (Normalized) Sig (Original) [id number] 200 actuat albuterol 0.09 mg/actuat metered dose [...] tablet (2 sources) Atypical Antipsychotic Start: 12-06-19 take 1 tablet by mouth once daily ARIPiprazole (ABILIFY) 20 mg tablet Indications: Severe episode of recurrent major depressive disorder, without psychotic features ([facility]) , LEONARD (generalized anxiety disorder) Take 1 Tablet by mouth once daily for 90 days 90 Tablet 0 12/05/2021 Active Comment on above: Take 1 Tablet by santy once daily for 90 days Budesonide / formoterol (1 source) Corticosteroid, beta2-Adrenergic Agonist Start: 08-15-19 18 budesonide-formoter ol (SYMBICORT) 80-4.5 mcg/actuation inhaler Inhale 2 Puffs into the lungs 0 08/14/2017 Active Comment on above: Inhale 2 Puffs into the lungs ergocalciferol 1.25 mg oral capsule (1 source) Provitamin D2 Compound Start: 03-16-19 21 take 1 capsule by mouth every week ergocalciferol, vitamin D2, (VITAMIN D2) 1,250 mcg (50,000 unit) capsule TAKE 1 CAPSULE BY MOUTH ONE TIME A WEEK. 0 03/16/2020 Active Comment on above: TAKE 1 CAPSULE BY MO UT ONE TIME A WEEK. esomeprazole 40 mg delayed release oral capsule (2 sources) Proton Pump Inhibitor Start: 12-02-19 esomeprazole magnesium (NEXIUM) [address] capsule FLUoxetine 40 mg oral capsule (3 sources) Serotonin Reuptake Inhibitor Start: 12-06-19 take 2 capsules by mouth once daily FLUoxetine (PROZAC) 40 mg capsule Indications: Severe episode of recurrent major depressive disorder, without psychotic features ([facility]) , LEONARD (generalized anxiety disorder) , Bulimia [...] on above: Take 2 Capsules by m outh once daily for 90 days fluticasone propionate 0.05 mg/actuat metered dose nasal spray (2 sources) Corticosteroid Start: 0 take 2 spray(s) nasal route once daily fluticasone propionate (FLONASE) 50 mcg/actuation nasal spray SPRAY 2 SPRAYS INTO EACH NOSTRIL EVERY DAY 0 08/15/2019 Active take 1 spray(s) nasal route once daily Flonase 50 mcg/inh nasal spray ; 1 spray(s) in each nostril once a day Quantity: 0 Refills: 0 Ordered: 20-Mar-2022 ChaddsergabdiazizScarlet head Generic Substitution Allowed Comment on above: SPRAY [...] Sun09/29/24 at 0124, For 1 dose levonorgestrel 0.558268 mg/hr intrauterine system (1 source) Progestin, Progestin-containing [...] on above: TAKE 1 CAPSULE BY [facility] TWICE DAILY FOR 30 DAYS. propranolol hydrochloride 20 mg oral tablet (3 sources) beta-Adrenergic Zander Start: 05-17-2017 propranolol (INDERAL) 20 mg tablet Take 20 mg by mouth migraines 0 05/17/2017 Active Comment on above: Take 20 mg by mouth migraines Problems Active Problems Problem Classification Problem Date Documented Da te Episodic/Chronic Abdominal hernia (2 sources) Umbilical hernia without obstruction or gangrene; Translations: [Umbilical hernia without obstruction or gangrene] Onset: 10-28-2024 Episodic Anxiety disorders (2 sources) Generalized anxiety disorder; Translations: [Generalized anxiety disorder] Onset: 04-11-2017 09-30-2018 Chronic Aortic; peripheral; and visceral artery aneurysms (2 sources) Dissection of vertebral artery; Translations: [Thoracic aortic ectasia] Onset: 05-16-2023 Chronic Asthma (5 sources) Asthmatic bronchitis; Translations: [Asthma, unspecified type, unspecified] Onset: 02-13-2022 02-13-2022 Chronic Cardiac and circulatory congenital anomalies (4 sources) Bicuspid aortic valve; Translations: [Congenital insufficiency of aortic valve] Onset: 02-09-2017 03-18-2018 Chronic Cardiac dysrhythmias (1 source) Tachycardia, unspecified; Translations: [Tachycardia] Onset: 12-18-2024 Episodic Congestive heart failure; nonhypertensive (3 sources) Chronic diastolic (congestive) heart failure; Translations: [Unspecified diastolic (congestive) heart failure] Onset: 07-19-2024 Chronic Diseases of white blood cells (1 source) Elevated white blood cell count, unspecified; Translations: [Leukocytosis, unspecified type] Onset: 07-19-2024 Chronic Disorders of lipid metabolism (1 source) Hyperlipidemia, unspecified; Translations: [Dyslipidemia] Onset: 05-19-2021 Chronic Esophageal disorders (2 sources) Gastro-esophageal reflux disease without esophagitis; Translations: [Gastroesophageal reflux disease] Onset: 07-31-2001 03-18-2018 Chronic Essential hypertension (1 source) Essential (primary) hypertension; Translations: [Primary hypertension] Onset: 12-18-2024 Chronic Gastritis and duodenitis (2 sources) Acute gastritis; Translations: [Acute gastritis, without mention of hemorrhage] Onset: 03-20-2022 03-20-2022 Episodic Headache; including migraine (4 sources) Migraine without aura, not refractory ; Translations: [Migraine without aura, not intractable, without status migrainosus] Onset: 01-17-2016 03-15-2018 Chronic Heart valve disorders (10 sources) Nonrheumatic aortic (valve) stenosis; Translations: [Aortic [...] Mood disorders; Translations: [Depression, unspecified] Onset: 03-20-2022 Other aftercare (1 source) Other fpc (current) drug therapy; Translations: [Other buttermaker helper (current) drug therapy] Onset: 03-20-2022 Episodic Other and ill-defined cerebrovascular disease (2 sources) Cerebral aneurysm, nonruptured; 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)] Onset: 04-24-2024 Chronic Other circulatory disease (1 source) Raynaud's disease; Translations: [Raynaud's syndrome without gangrene] Onset: 01-14-2016 03-15-2018 Chronic Other circulatory disease (1 source) Disorder of arteries and arterioles, unspecified; Translations: [Disorder of artery or arteriole] Onset: 09-01-2024 Chronic Other connective tissue disease (1 source) Other specified soft tissue disorders; Translations: [Leg swelling] Onset: 12-18-2024 Episodic Other connective tissue disease (1 source) Plantar fascial fibromatosis; Translations: [Plantar fasciitis] Onset: 11-25-2024 Episodic Other connective tissue disease (1 source) Pain in right foot; Translations: [Pain in both feet] Onset: 11-25-2024 Episodic Other connective tissue disease (1 source) Pain in left foot; Translations: [Pain in both feet] Onset: 11-25-2024 Episodic Other lower respiratory disease (1 source) Other forms of dyspnea; Translations: [ALAMO (dyspnea on exertion)] Onset: 12-18-2024 Episodic Other nervous system disorders (1 source) Narcolepsy without cataplexy ; Translations: [Narcolepsy without cataplexy] Onset: 02-09-2017 03-15-2018 Chronic Other nervous system disorders (1 source) Narcolepsy; Translations: [Narcolepsy without cataplexy] Onset: 07-30-2019 07-30-2019 Chronic Other nervous system disorders (2 sources) Other chronic pain; Translations: [Chronic pain of both knees] Onset: 04-26-2022 Chronic Other nutritional; endocrine; and metabolic disorders (1 [...] pediatric patient (HCC)] Onset: 05-11-2021 Chronic Other nutritional; endocrine; and metabolic disorders (1 source) Body mass index (BMI) 50.0-59.9, adult; Translations: [Class 3 severe obesity with serious comorbidity and body mass index (BMI) of 50.0 to 59.9 in adult, unspecified obesity type (HCC)] Onset: 09-04-2024 Chronic Other nutritional; endocrine; and metabolic disorders (1 source) Body mass index (BMI) 45.0-49.9, adult; Translations: [Class 3 severe obesity with body mass index (BMI) of 45.0 to 49.9 in adult (HCC)] Onset: 10-28-2024 Chronic Other skin disorders (2 sources) Generalized [...] [Lumbar spondylosis] Onset: 02-28-2024 Chronic Substance-related disorders (5 sources) Nicotine dependence, unspecified, uncomplicated; Translations: [Nicotine [...] patient (HCC)] Onset: 09-04-2024 Unclassified (1 source) Class 3 severe obesity with serious comorbidity and body mass index (BMI) of 50.0 to 59.9 in adult, unspecified obesity type (HCC); Translations: [Class 3 severe obesity with serious comorbidity and body mass index (BMI) of 50.0 to 59.9 in adult, unspecified obesity type (HCC)] Onset: 09-04-2024 Unclassified (1 source) Bulimia nervosa, unspecified severity (HCC); Translations: [Bulimia nervosa, unspecified severity (HCC)] Onset: 02-24-2024 Unclassified (1 source) Class 3 severe obesity with body mass index (BMI) of 45.0 to 49.9 in adult (HCC); Translations: [Class 3 severe obesity with body mass index (BMI) of 45.0 to 49.9 in adult (HCC)] Onset: 10-28-2024 Unclassified (1 source) Chronic bilateral low back [...] prolapse; Translations: [Rectal prolapse] Onset: 04-11-2018 Episodic Anxiety disorders (1 source) Anxiety disorder due to known physiological condition; Translations: [Anxiety disorder due to known physiological condition] Onset: 09-10-2024 Episodic Cardiac and circulatory congenital anomalies (1 source) Personal history of (corrected) congenital malformations of heart and circulatory system; Translations: [History of surgical closure of patent foramen ovale (PFO)] Onset: 09-18-2024 Episodic Chronic obstructive pulmonary disease and bronchiectasis (1 source) Bronchitis, not specified as acute or chronic; Translations: [Bronchitis] Onset: 02-07-2024 Episodic Diabetes mellitus without complication (2 sources) Prediabetes; Translations: [Prediabetes] Onset: 09-04-2024 Episodic Diseases of mouth; excluding dental (2 [...] Translations: [Fatigue, unspecified type] Onset: 05-01-2023 Episodic Noninfectious gastroenteritis (2 sources) Noninfective gastroenteritis and colitis, unspecified; Translations: [Nonspecific colitis] Onset: 07-19-2024 Episodic Nonspecific chest pain (10 sources) Chest pain; Translations: [Chest pain, unspecified] Onset: 03-20-2022 03-20-2022 Episodic Nutritional deficiencies (1 source) Cobalamin deficiency; Translations: [Deficiency of other specified B group vitamins] Onset: 06-23-2009 03-18-2018 Episodic Other aftercare (2 sources) Patient encounter status; Translations: [Encounter for therapeutic drug level monitoring] Onset: 02-09-2017 09-30-2018 Episodic Other aftercare (1 source) Encounter for follow-up examination after completed treatment for conditions other than malignant neoplasm; Translations: [Surgery follow-up] Onset: 09-18-2024 Episodic Other circulatory disease (2 sources) Other specified symptoms and signs involving the circulatory and respiratory systems; Translations: [Oth symptoms and signs involving the circ and resp systems] Onset: 02-13-2022 Episodic Other connective tissue disease (1 source) Fibromyalgia; Translations: [Fibromyalgia] Onset: 07-30-2019 07-30-2019 Episodic Other connective tissue disease (1 source) Fibromyalgia; Translations: [Fibromyalgia] Onset: 07-19-2024 Episodic Other connective tissue disease (1 source) [...] Onset: 02-13-2022 Episodic Other lower respiratory disease (2 sources) Shortness of breath; Translations: [Shortness of breath] Onset: 09-01-2024 Episodic Other lower respiratory disease (1 source) Other specified respiratory disorders; Translations: [Congestion of respiratory tract] Onset: 06-19-2024 Episodic Other lower respiratory disease (1 source) Orthopnea; Translations: [Orthopnea] Onset: 06-27-2024 Episodic Other nervous system disorders (1 source) H/O: migraine; Translations: [Personal history of other diseases of the nervous system and sense organs] Onset: 04-03-2018 09-30-2018 Episodic Other nervous system disorders (2 sources) Other acute postprocedural pain; Translations: [Postoperative pain] Onset: 09-01-2024 Episodic Other non-traumatic joint disorders (1 source) Pain in right knee; Translations: [Chronic pain of both knees] Onset: 04-26-2022 Episodic Other non-traumatic joint disorders (1 source) Pain in left knee; Translations: [Chronic pain of both knees] Onset: 04-26-2022 Episodic Other non-traumatic joint disorders (1 source) Other instability, right knee; Translations: [Instability of right knee joint] Onset: 01-16-2024 Episodic Other nutritional; endocrine; and metabolic disorders [...] [Upper respiratory tract infection, unspecified type] Onset: 06-27-2024 Episodic Residual codes; unclassified (3 sources) Localized edema; Translations: [Bilateral leg edema] Onset: 06-19-2024 Episodic Residual codes; unclassified (1 source) Edema, unspecified; Translations: [Water retention] Onset: 06-27-2024 Episodic Spondylosis; intervertebral disc disorders; other back problems (2 sources) Radiculopathy, lumbar region; Translations: [Spinal stenosis, lumbar region with neurogenic claudication] Onset: 02-28-2024 Episodic Results Test Name Value Interpretation Reference Range Facility [facility] 01-01-2025 [facility] Telephone ([facility]) -------- PAUL DAVENPORT ([id number]) 1975 F Date Time Provider Department 01/01/25 PAUL HIGGINS [facility] During your visit today, we recorded the following information about you: Paul Higgins 01/01/2025 8:27 AM Signed The patient was discharged from [facility] 12/18 with an order to schedule with the [facility]. The Clinic reached out to the patient with no response. Therefore, this is considered a deferral of the Clinic's services at this time. Allergies As of Date: 01/01/2025 Noted Allergy Reaction DUST 01/27/2009 Comments: extreme coughing, dry hives METFORMIN 04/09/2023 14 - Other: See Comments Date Reviewed: 12/18/2024 Reviewed by: Kylee Llanes LPN - Fully Assessed Reason for Visit: [place] CHF- DEFERRAL [Other] Prescriptions as of 01/01/2025 - torsemide (DEMADEX) 20 mg tablet Take 2 tablets by mouth two times a day. - propranolol (INDERAL) 20 mg tablet Take 1 tablet by mouth three times a day. - nystatin (MYCOSTATIN) cream Apply to affected area two times a day. - doxepin capsule 25 mg Take 25 mg by mouth daily at bedtime. - DULoxetine DR (CYMBALTA) 30 mg capsule Take 30 mg by mouth once daily. - amoxicillin (AMOXIL) 500 mg capsule take 4 capsules by mouth one hour prior to dental appointment. - albuterol HFA (PROVENTIL HFA, VENTOLIN HFA) 90 mcg/actuation inhaler Inhale 2 puffs as instructed every 4 hours as needed for wheezing/shortness of breath. - tirzepatide, weight loss (ZEPBOUND) 5 mg/0.5 mL solution Inject 0.5 mL subcutaneously one time a week. - diazePAM (VALIUM) 5 mg tablet Take 1 tablet by mouth every 12 hours. - ARIPiprazole (ABILIFY) 20 mg tablet Take 1 tablet by mouth once daily. - ibuprofen (MOTRIN) 800 mg tablet Take 1 tablet by mouth every 8 hours as needed for pain. - esomeprazole (NEXIUM) 40 mg capsule Take 1 capsule by mouth two times a day. - fluticasone (FLONASE) 50 mcg/actuation nasal spray Use 2 sprays in each nostril once daily as needed for cold/allergy symptoms. - fluticasone-salmeterol (ADVAIR, WIXELA) 250-50 mcg/dose inhaler Inhale 1 puff as instructed two times a day. - levonorgestrel (MIRENA) 21 mcg/24hr (up to 8 yrs) 52 mg IUD 1 each by INTRAUTERINE route one time only. - Aspirin 81 mg tab Take 81 mg by mouth once daily. - cholecalciferol (VITAMIN D3) 1,000 unit tab tablet Take 2 tablets by mouth once daily. Problem List As Of Date 01/01/2025 Noted Resolved Bicuspid AV/AI.. G=16-20/mild [I35.9] 07/31/2001 [...] Diagnosed: 05/01/2023 Constipation [K59.00] 05/07/2013 Diagnosed: 05/01/2023 Hemorrh (more content not included)... Normal [facility] Doreen 12-31-2024 [place] Telephone ([facility]) -------- PAUL DAVENPORT ([id number]) 1975 F Date Time Provider Department 12/31/24 BAYLEE POLO4 During your visit today, we recorded the following information about you: Kaya Olmstead 12/31/2024 11:05 AM Signed Referral received. Attempt # 1 LVM for patient. [employer] message sent to patient. Allergies As of Date: 12/31/2024 Noted Allergy Reaction DUST 01/27/2009 Comments: extreme coughing, dry hives METFORMIN 04/09/2023 14 - Other: See Comments Date Reviewed: 12/18/2024 Reviewed by: Kylee Llanes LPN - Fully Assessed Prescriptions as of 12/31/2024 - torsemide (DEMADEX) 20 mg tablet Take 2 tablets by mouth two times a day. - propranolol (INDERAL) 20 mg tablet Take 1 tablet by mouth three times a day. - nystatin (MYCOSTATIN) cream Apply to affected area two times a day. - doxepin capsule 25 mg Take 25 mg by mouth daily at bedtime. - DULoxetine DR (CYMBALTA) 30 mg capsule Take 30 mg by mouth once daily. - amoxicillin (AMOXIL) 500 mg capsule take 4 capsules by mouth one hour prior to dental appointment. - albuterol HFA (PROVENTIL HFA, VENTOLIN HFA) 90 mcg/actuation inhaler Inhale 2 puffs as instructed every 4 hours as needed for wheezing/shortness of breath. - tirzepatide, weight loss (ZEPBOUND) 5 mg/0.5 mL solution Inject 0.5 mL subcutaneously one time a week. - diazePAM (VALIUM) 5 mg tablet Take 1 tablet by mouth every 12 hours. - ARIPiprazole (ABILIFY) 20 mg tablet Take 1 tablet by mouth once daily. - ibuprofen (MOTRIN) 800 mg tablet Take 1 tablet by mouth every 8 hours as needed for pain. - esomeprazole (NEXIUM) 40 mg capsule Take 1 capsule by mouth two times a day. - fluticasone (FLONASE) 50 mcg/actuation nasal spray Use 2 sprays in each nostril once daily as needed for cold/allergy symptoms. - fluticasone-salmeterol (ADVAIR, WIXELA) 250-50 mcg/dose inhaler Inhale 1 puff as instructed two times a day. - levonorgestrel (MIRENA) 21 mcg/24hr (up to 8 yrs) 52 mg IUD 1 each by INTRAUTERINE route one time only. - Aspirin 81 mg tab Take 81 mg by mouth once daily. - cholecalciferol (VITAMIN D3) 1,000 unit tab tablet Take 2 tablets by mouth once daily. Problem List As Of Date 12/31/2024 Noted Resolved Bicuspid AV/AI.. G=16-20/mild [I35.9] 07/31/2001 [...] [K64.*05/07/2013 Diagnosed: 05/01/2023 Rectocele [N81.6] 05/01/2023 Asthmatic (more content not included)... Normal [facility] CNPNon 12-30-2024 [place] Telephone ([facility]) -------- PAUL DAVENPORT ([id number]) 1975 F Date Time Provider Department 12/30/24 VASQUEZ BRUSH During your visit today, we recorded the following information about you: Jefe Mclean MA 12/30/2024 12:14 PM Signed ----- Message from Tori Guillaume sent at 12/30/2024 12:13 PM EST ----- Regarding: FW: Claudette/Vasquez Brush APRN.CNP/ Numbness/ sweeling Patient is scheduled for virtual with Veronika tomorrow 12-31 at 8:00 AM she normally see'serg Carson ----- Message ----- From: Allie Bingham Sent: 12/30/2024 11:53 AM EST To: Belia Solorzano/[facility] Triage Pool Subject: Claudette/Vasquez Brush APRN.CNP/ Numbnes# Patient: Paul Davenport Date of : 1975 Primary Care Provider: Vasquez Brush APRN.CNP Patient has been identified by name and Date of (Y/N): y Patient: Paul Davenport Date of : 1975 Provider for this encounter: Vasquez Brush APRN.CNP Reason for the call/escalation: Patient states she had heart surgery 3 months ago she doesn't know if these symptoms are caused by that and doesn't think so but wanted to mention it. She is now experiencing swelling, her legs feel heavy and she has swollen and numb feet. Needs to have virtual appointment as she has no transportation and is open to seeing anyone in the office. This onset occurred more than 72 hours ago. Scheduled first available virtual visit tomorrow at 8:00 am with Veronika Sutherland APRN.[employer]CH[employer]IC Was Patient Referred to [facility]/Seek Emergency Treatment (Y/N): n/a Did Patient Agree (Y/N): n/a Was An Attempt Made To Transfer The Patient To The Office (Y/N): n/a Were You Able To Reach Someone At The Office (Y/N): n/a If Yes - Patient Was Transferred To (Caregivers Name): n/a If No - Which [facility] Leadership Department Director Did You Speak With Regarding This Patient: n/a Was an appointment scheduled (Y/N): y Reason patient was requesting visit (RFV/signs and symptoms/diagnosis) : swelling/numbness Person calling if other than patient: n/a Return call to if other than patient: n/a Best contact number: [phone] Thank you, Allie Bingham December 30, 2024 11:48 AM Jefe Mclean MA 12/30/2024 1:13 PM Signed Veronika Sutherland APRN.HE[employer] MECHANIC You14 minutes ago (12:56 PM) Is there a reason patient is not being seen in office? Allergies As of Date: 12/30/2024 Noted Allergy Reaction DUST 01/27/2009 Comments: extreme coughing, dry hives METFORMIN 04/09/2023 14 - Other: See Comments Date Reviewed: 12/18/2024 Reviewed by: Kylee Llanes LPN - Fully Assessed Reason for Visit: Patient Update [1234] Prescriptions as of 12/30/2024 - torsemide (DEMADEX) 20 mg tablet Take 2 tablets by mouth two times a day. - propranolol (INDERAL) 20 mg tablet Take 1 tablet by mouth three times a day. - nystatin (MYCOSTATIN) cream Apply to affected area two times a day. - doxepin capsule 25 mg Take 25 mg by mouth daily at bedtime. - DULoxetine DR (CYMBALTA) 30 mg capsule Take 30 mg by mouth once daily. - amoxicillin (AMOXIL) 500 mg capsule take 4 capsules by mouth one hour prior to dental appointment. - albuterol HFA (PROVENTIL HFA, VENTOLIN HFA) 90 mcg/actuation inhaler Inhale 2 puffs as instructed every 4 hours as needed for wheezing/shortness of breath. - tirzepatide, weight loss (ZEPBOUND) 5 mg/0.5 mL solution Inject 0.5 mL subcutaneously one time a week. - diazePAM (VALIUM) 5 mg tablet Take 1 tablet by mouth every 12 hours. - ARIPiprazole (ABILIFY) 20 mg tablet Take 1 tablet by mouth once daily. - ibuprofen (MOTRIN) 800 mg tablet Take 1 tablet by mouth every 8 hours as needed for pain. - esomeprazole (NEXIUM) 40 mg capsule Take 1 capsule by mouth two times a day. - fluticasone (FLONASE) 50 mcg/actuation nasal spray Use 2 sprays in each nostril once daily as needed for cold/allergy symptoms. - fluticasone-salmeterol (ADVAIR, WIXELA) 250-50 mcg/dose inhaler Inhale 1 puff as instructed two times a day. - levonorgestrel (MIRENA) 21 mcg/24hr (up to 8 yrs) 52 mg IUD 1 each by INTRAUTERINE route one time only. - Aspirin 81 mg tab Take 81 mg by mouth once daily. - cholecalciferol (VITAMIN D3) 1,000 unit tab tablet Take 2 tablets by mouth once daily. Problem List As Of Date 12/30/2024 Noted Resolved Bicuspid AV/AI.. 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 Normal [facility] BEAU Telephone ([facility]) -------- PAUL DAVENPORT ([id number]) 1975 F Date Time Provider Department 12/30/24 VASQUEZ BRUSH During your visit today, we recorded the following information about you: Rosemary Arteaga MA 12/30/2024 7:52 AM Signed Form received from [facility] to be filled out for an appeal for zepbound. Placed in red folder. JENIFER Hanson Kristin C, APRN.[facility] 12/30/2024 12:18 PM Signed Last sleep study done in 2019, AHI was 5.1 This may not be high enough to qualify patient for the medication Form is completed and signed. Vasquez Brsuh APRN.Rosemary Guardado MA 12/30/2024 1:09 PM Signed Faxed placed in scanning. Rosemary Arteaga MA Allergies As of Date: 12/30/2024 Noted Allergy Reaction DUST 01/27/2009 Comments: extreme coughing, dry hives METFORMIN 04/09/2023 14 - Other: See Comments Date Reviewed: 12/18/2024 Reviewed by: Kylee Llanes LPN - Fully Assessed Reason for Visit: Electronic Communication [890] Cmt: Appeal form for zebpound Prescriptions as of 12/30/2024 - torsemide (DEMADEX) 20 mg tablet Take 2 tablets by mouth two times a day. - propranolol (INDERAL) 20 mg tablet Take 1 tablet by mouth three times a day. - nystatin (MYCOSTATIN) cream Apply to affected area two times a day. - doxepin capsule 25 mg Take 25 mg by mouth daily at bedtime. - DULoxetine DR (CYMBALTA) 30 mg capsule Take 30 mg by mouth once daily. - amoxicillin (AMOXIL) 500 mg capsule take 4 capsules by mouth one hour prior to dental appointment. - albuterol HFA (PROVENTIL HFA, VENTOLIN HFA) 90 mcg/actuation inhaler Inhale 2 puffs as instructed every 4 hours as needed for wheezing/shortness of breath. - tirzepatide, weight loss (ZEPBOUND) 5 mg/0.5 mL solution Inject 0.5 mL subcutaneously one time a week. - diazePAM (VALIUM) 5 mg tablet Take 1 tablet by mouth every 12 hours. - ARIPiprazole (ABILIFY) 20 mg tablet Take 1 tablet by mouth once daily. - ibuprofen (MOTRIN) 800 mg tablet Take 1 tablet by mouth every 8 hours as needed for pain. - esomeprazole (NEXIUM) 40 mg capsule Take 1 capsule by mouth two times a day. - fluticasone (FLONASE) 50 mcg/actuation nasal spray Use 2 sprays in each nostril once daily as needed for cold/allergy symptoms. - fluticasone-salmeterol (ADVAIR, WIXELA) 250-50 mcg/dose inhaler Inhale 1 puff as instructed two times a day. - levonorgestrel (MIRENA) 21 mcg/24hr (up to 8 yrs) 52 mg IUD 1 each by INTRAUTERINE route one time only. - Aspirin 81 mg tab Take 81 mg by mouth once daily. - cholecalciferol (VITAMIN D3) 1,000 unit tab tablet Take 2 tablets by mouth once daily. Problem List As Of Date 12/30/2024 Noted Resolved Bicuspid AV/AI.. G=16-20/mild [I35.9] 07/31/2001 [...] 04/26/2022 12/22/2022 Lack of access to transportation (more content not included)... Normal [facility] HISTORY PHYSICALon HISTORY PHYSICAL Normal [facility] CBC panel Auto (Bld)on 12-18 Erythrocyte distribution width (RBC) [Ratio] 16.7 % High 11.5-15.0 [facility] Comment on above: Order Comment: Spectariq walsh Type: BLOOD SPECIMEN Ordering Facility: [facility] Address: [address] [place] [address] Performed By: #### 3 040-3, 31640-7, 21159-4 #### [facility] CLIA [id number] [address] [place] [facility] Hematocrit (Bld) [Volume fraction] 35.7 % Low 36.0-46.0 [facility] Comment on above: Order Comment: Ulises walsh Type: BLOOD SPECIMEN Ordering Facility: [facility] Address: [address] [place] [address] Performed By: #### 3 040-3, 96467-7, 23822-7 #### [facility] CLIA [id number] [address] [place] Hemoglobin (Bld) [Mass/Vol] 10.3 g/dL Low 11.5-15.5 [facility] Comment on above: Order Comment: Ulises walsh Type: BLOOD SPECIMEN Ordering Facility: [facility] Address: [address] [place] [address] Performed By: #### 3 040-3, 25120-5, 05292-2 #### [facility] CLIA [id number] [address] [place] MCH (RBC) [Entitic mass] 22.8 pg Low 26.0-34.0 [facility] Comment on above: Order Comment: Speci men Type: BLOOD SPECIMEN Ordering Facility: [facility] Address: [address] [place] [address] Performed By: #### 3 040-3, 34987-3, 40549-2 #### [facility] CLIA [id number] [address] MCHC (RBC) [Mass/Vol] 28.9 g/dL Low 30.5-36.0 [facility] Comment on above: Order Comment: Speci men Type: BLOOD SPECIMEN Ordering Facility: [facility] Address: [address] [place] [address] Performed By: #### 3 040-3, 01754-1, 22268-5 #### [facility] CLIA [id number] [address] [place] [facility] MCV (RBC) [Entitic vol] 79.2 fL Low 80.0-100.0 [facility] Comment on above: Order Comment: Speci men Type: BLOOD SPECIMEN Ordering Facility: [facility] Address: [address] [place] [address] Performed By: #### 3 040-3, 64436-4, 23139-3 #### [facility] CLIA [id number] [address] Nucleated RBC (Bld) [#/Vol] 10*3/uL Normal <0.01 [facility] Comment on above: Order Comment: Speci men Type: BLOOD SPECIMEN Ordering Facility: [facility] Address: [address] [place] [address] Performed By: #### 3 040-3, 66821-3, 86629-4 #### [facility] CLIA [id number] [address] Platelet mean volume (Bld) [Entitic vol] 9.8 fL Normal 9.0-12.7 [facility] Comment on above: Order Comment: Speci men Type: BLOOD SPECIMEN Ordering Facility: [facility] Address: [address] [place] [address] Performed By: #### 3 040-3, 65904-2, 00900-2 #### [facility] CLIA [id number] [address] Platelets (Bld) [#/Vol] 555 10*3/uL High 150-400 [facility] Comment on above: Order Comment: Speci men Type: BLOOD SPECIMEN Ordering Facility: [facility] Address: [address] [place] [address] Performed By: #### 3 040-3, 27796-7, 38531-1 #### [facility] CLIA [id number] [address] RBC (Bld) [#/Vol] 4.51 10*6/uL Normal 3.90-5.20 [facility] Comment on above: Order Comment: Speci men Type: BLOOD SPECIMEN Ordering Facility: [facility] Address: [address] [place] [address] Performed By: #### 3 040-3, 49521-8, 56961-9 #### [facility] CLIA [id number] [address] WBC (Bld) [#/Vol] 12.40 10*3/uL High 3.70-11.00 [facility] Comment on above: Order Comment: Speci men Type: BLOOD SPECIMEN Ordering Facility: [facility] Address: [address] [place] [address] Performed By: #### 3 040-3, 37165-4, 73433-7 #### [facility] CLIA [id number] [address] CNOVon 12-18-2024 CNOV Office Visit (EDSON BERMEO) -------- PAUL DAVENPORT ([id number]) 1975 F Date Time Provider Department 12/18/24 2:30 PM LILLY CARRASCO During your visit today, we recorded the following information about you: Pulse Blood pressure Weight 119/minute 145/90 134.3 kg Lilly Carrasco APRN.CNP 12/19/2024 2:12 PM Signed Chief Complaint Patient presents with: [facility] Follow Up: Chest pain History of Present Illness: Paul Davenport is a 49 year old female who presents for post surgical follow up. The patient is a 49-year-old female with a history of fibromyalgia, arthritis, and tobacco use, presenting for evaluation of persistent pain and edema following valve surgery on 09/04. The patient reports ongoing pain and swelling since her valve surgery on 09/04. She experiences significant discomfort in her chest, legs, feet, arms, and back, describing her feet as bloated and like balloons. She notes difficulty ambulating and performing daily activities such as tying her shoes, cleaning, cooking, and showering due to the edema and pain. She estimates a weight gain of 20-30 pounds since surgery, attributing it to both fluid retention and dietary habits, as she has been eating out frequently. She has been taking torsemide 20 mg BID, which was increased from furosemide due to inadequate response, but reports minimal improvement in edema and diuresis. She also reports severe fatigue and sleep disturbances, getting only about an hour of sleep last night and often needing to sleep upright on the couch due to discomfort. She attributes her sleep issues to pain and difficulty finding a comfortable position. She has been alternating between Tylenol and ibuprofen for pain management but suspects that ibuprofen may be contributing to her swelling, so she has stopped taking it. She feels that Tylenol is ineffective. She experiences frequent coughing fits and choking, particularly on saliva, which she believes may have contributed to a broken sternal wire identified on a chest X-ray. She has not been able to follow up with her cardiothoracic surgeon due to transportation issues. She also reports difficulty swallowing and a history of esophageal inflammation, with a normal EGD performed a few years ago. She has been taking propranolol twice daily for migraines but often forgets the second dose. She reports episodes of elevated blood pressure at home but has not been monitoring it regularly. She denies any history of IN or coronary artery blockages. She has a history of fibromyalgia and arthritis, with previous treatment including Lyrica, which she discontinued due to weight gain and concerns about cardiac effects. She reports that other medications have been ineffective. She is scheduled to meet with home care services in a few days, having been denied previously before her surgery. She is a current smoker and acknowledges difficulty quitting. She reports high levels of stress and anxiety, and her psychiatrist has prescribed a new medication to help with sleep, which she has not yet started. She lives alone and has limited support, with family living about an hour and a half away. She reports transportation issues affecting her ability to attend medical appointments. She has a family history of heart disease in her mother and grandmother. 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 Insomnia, unspecified Iron deficiency anemia 09/25/2023 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/2023 Major depressive disorder, single episode, mild Migraine stable with propranolol Myocardial bridge (HCC) Nontoxic uninodular goiter Osteoarthritis of multiple joints Partial rectal prolapse PFO (patent foramen ovale) (HCC) RP (rectal prolapse) ~2012 repeat prolapse 2023 Sleep apnea Tobacco abuse PAST SURGICAL HISTORY Procedure Laterality Date ABDOMINAL SURGERY HX COLON SURGERY HX 2019 rectal prolapse COLONOSCOPY 11/16/2014, 12/2017 No polyps/ severe diarrhea and prolapse CORRECT RECTAL PROLAPSE [address] with mesh CT ABD/PELVIS WO CONTRAST PANEL 11/[address] COR/SAG/SINUS/BRAIN/HEAD 12/2005 normal DEBRIDEMENT MUSCLE AND FASCIA 20 SQ CM/< 11/03/2007 DEBRIDEMENT ULCER EXTREMITY LOWER performed by ABELARDO (more content not included)... Normal [facility] CNPMonet 12-18-2024 [facility] Telephone ([facility]) -------- ETHELLEIDYPAUL A ([id number]) 1975 F Date Time Provider Department 12/18/24 PAUL HIGGINS [facility] During your visit today, we recorded the following information about you: Paul Higgins 12/18/2024 3:41 PM Signed [facility] received a referral from Lilly Carrasco APRN.CNP to schedule with the clinic. The clinic reached out to the patient by phone asking them to contact the clinic to schedule an appointment. Patient was not near her calendar and will call back at a more convenient time. Letter sent. Allergies As of Date: 12/18/2024 Noted Allergy Reaction DUST 01/27/2009 Comments: extreme coughing, dry hives METFORMIN 04/09/2023 14 - Other: See Comments Date Reviewed: 12/18/2024 Reviewed by: Kylee Llanes LPN - Fully Assessed Reason for Visit: [place] [facility]F- APPT CONTACT [Other] Prescriptions as of 12/18/2024 - torsemide (DEMADEX) 20 mg tablet Take 2 tablets by mouth two times a day. - propranolol (INDERAL) 20 mg tablet Take 1 tablet by mouth three times a day. - nystatin (MYCOSTATIN) cream Apply to affected area two times a day. - doxepin capsule 25 mg Take 25 mg by mouth daily at bedtime. - DULoxetine DR (CYMBALTA) 30 mg capsule Take 30 mg by mouth once daily. - amoxicillin (AMOXIL) 500 mg capsule take 4 capsules by mouth one hour prior to dental appointment. - albuterol HFA (PROVENTIL HFA, VENTOLIN HFA) 90 mcg/actuation inhaler Inhale 2 puffs as instructed every 4 hours as needed for wheezing/shortness of breath. - tirzepatide, weight loss (ZEPBOUND) 5 mg/0.5 mL solution Inject 0.5 mL subcutaneously one time a week. - diazePAM (VALIUM) 5 mg tablet Take 1 tablet by mouth every 12 hours. - ARIPiprazole (ABILIFY) 20 mg tablet Take 1 tablet by mouth once daily. - ibuprofen (MOTRIN) 800 mg tablet Take 1 tablet by mouth every 8 hours as needed for pain. - esomeprazole (NEXIUM) 40 mg capsule Take 1 capsule by mouth two times a day. - fluticasone (FLONASE) 50 mcg/actuation nasal spray Use 2 sprays in each nostril once daily as needed for cold/allergy symptoms. - fluticasone-salmeterol (ADVAIR, WIXELA) 250-50 mcg/dose inhaler Inhale 1 puff as instructed two times a day. - levonorgestrel (MIRENA) 21 mcg/24hr (up to 8 yrs) 52 mg IUD 1 each by INTRAUTERINE route one time only. - Aspirin 81 mg tab Take 81 mg by mouth once daily. - cholecalciferol (VITAMIN D3) 1,000 unit tab tablet Take 2 tablets by mouth once daily. Problem List As Of Date 12/18/2024 Noted Resolved Bicuspid AV/AI.. G=16-20/mild [I35.9] 07/31/2001 [...] [I77.810] 01/21/2023 Condyloma acuminatum [A63.0] 05/01/2023 Diagnosed: 03 (more content not included)... Normal [facility] CRP SerPl-mCncon 12-18-2024 CRP [Mass/Vol] 3.5 mg/dL High <0.9 [facility] Comment on above: Order Comment: Speci men Type: BLOOD SPECIMEN Ordering Facility: [facility] Address: [address] [place] [address] Performed By: #### 3 040-3, 31490-4, 79827-3 #### [facility] CLIA [id number] [address] Comprehensive metabolic 2000 panelon 12-18-2024 Albumin [Mass/Vol] 3.9 g/dL Normal 3.9-4.9 [facility] Comment on above: Order Comment: Speci men Type: BLOOD SPECIMEN Ordering Facility: [facility] Address: [address] [place] [address] Performed By: #### 3 040-3, 90100-5, 80791-5 #### [facility] CLIA [id number] [address] ALP [Catalytic activity/Vol] 119 U/L Normal 34-123 [facility] Comment on above: Order Comment: Speci men Type: BLOOD SPECIMEN Ordering Facility: [facility] Address: [address] [place] [address] Performed By: #### 3 040-3, 85409-1, 34722-8 #### [facility] CLIA [id number] [address] ALT With P-5'-P [Catalytic activity/Vol] 23 U/L Normal 7-38 [facility] Comment on above: Order Comment: Speci men Type: BLOOD SPECIMEN Ordering Facility: [facility] Address: [address] [place] [address] Performed By: #### 3 040-3, 98822-9, 50125-2 #### [facility] CLIA [id number] [address] [place] Anion gap [Moles/Vol] 12 mmol/L Normal 8-15 [facility] Comment on above: Order Comment: Speci men Type: BLOOD SPECIMEN Ordering Facility: [facility] Address: [address] [place] [address] Performed By: #### 3 040-3, 22297-8, 20579-4 #### [facility] CLIA [id number] [address] [place] AST With P-5'-P [Catalytic activity/Vol] 27 U/L Normal 13-35 [facility] Comment on above: Order Comment: Speci men Type: BLOOD SPECIMEN Ordering Facility: [facility] Address: [address] [place] [address] Performed By: #### 3 040-3, 42643-1, 22821-0 #### [facility] CLIA [id number] [address] [place] Bilirubin [Mass/Vol] 0.2 mg/dL Normal 0.2-1.3 [facility] Comment on above: Order Comment: Speci men Type: BLOOD SPECIMEN Ordering Facility: [facility] Address: [address] [place] [address] Performed By: #### 3 040-3, 44262-8, 31506-7 #### [facility] CLIA [id number] [address] [place] Calcium [Mass/Vol] 9.2 mg/dL Normal 8.5-10.2 [facility] Comment on above: Order Comment: Speci men Type: BLOOD SPECIMEN Ordering Facility: [facility] Address: [address] [place] [address] Performed By: #### 3 040-3, 88892-3, 29014-1 #### [facility] CLIA [id number] [address] [place] Chloride [Moles/Vol] 97 mmol/L Low 98-107 [facility] Comment on above: Order Comment: Speci men Type: BLOOD SPECIMEN Ordering Facility: [facility] Address: [address] [place] [address] Performed By: #### 3 040-3, 77713-6, 47398-2 #### [facility] CLIA [id number] [address] [place] [facility] CO2 [Moles/Vol] 28 mmol/L Normal 22-30 [facility] Comment on above: Order Comment: Speci men Type: BLOOD SPECIMEN Ordering Facility: [facility] Address: [address] [place] [address] Performed By: #### 3 040-3, 66801-0, 51075-1 #### [facility] CLIA [id number] [address] Creatinine [Mass/Vol] 0.74 mg/dL Normal 0.58-0.96 [facility] Comment on above: Order Comment: Speci men Type: BLOOD SPECIMEN Ordering Facility: [facility] Address: [address] [place] [address] Performed By: #### 3 040-3, 12466-1, 79369-4 #### [facility] CLIA [id number] [address] eGFRcr SerPlBld CKD-EPI 2020 101 mL/min/1.73m??? Normal >=60 [facility] Comment on above: Order Comment: Speci men Type: BLOOD SPECIMEN Ordering Facility: [facility] Address: [address] [place] [address] Result Comment: Tsering mated Glomerular Filtration Rate [...] accurately reflect actual GFR. Performed By: #### 3 040-3, 57017-1, 99875-2 #### [facility] CLIA [id number] [address] [place] [address] [place] Glucose [Mass/Vol] 259 mg/dL High 74-99 [facility] Comment on above: Order Comment: Speci men Type: BLOOD SPECIMEN Ordering Facility: [facility] Address: [address] [place] [address] Result Comment: The [place] [employer] Association (ADA) provides guidance for cutoff [...] Standards of Medical Care in Diabetes 2016, [place] [employer]. Diabetes Care. 2016.39(Suppl 1). Performed By: #### 3 040-3, 49461-9, 45094-4 #### [facility] CLIA [id number] [address] [place] [address] [place] Potassium [Moles/Vol] 4.1 mmol/L Normal 3.7-5.1 [facility] Comment on above: Order Comment: Ulises walsh Type: BLOOD SPECIMEN Ordering Facility: [facility] Address: [address] [place] [address] Performed By: #### 3 040-3, 68439-6, 97767-8 #### [facility] CLIA [id number] [address] [place] [address] [place] Protein [Mass/Vol] 7.2 g/dL Normal 6.3-8.0 [facility] Comment on above: Order Comment: Ulises walsh Type: BLOOD SPECIMEN Ordering Facility: [facility] Address: [address] [place] [address] Performed By: #### 3 040-3, 12570-1, 00593-1 #### [facility] CLIA [id number] [address] [place] [facility] Sodium [Moles/Vol] 137 mmol/L Normal 136-144 [facility] Comment on above: Order Comment: Ulises walsh Type: BLOOD SPECIMEN Ordering Facility: [facility] Address: [address] [place] [address] Performed By: #### 3 040-3, 05719-1, 10608-0 #### [facility] CLIA [id number] [address] [place] Urea nitrogen [Mass/Vol] 16 mg/dL Normal 7-21 [facility] Comment on above: Order Comment: Ulises walsh Type: BLOOD SPECIMEN Ordering Facility: [facility] Address: [address] [place] [address] Performed By: #### 3 040-3, 00433-6, 42210-6 #### [facility] CLIA [id number] [address] NT-proBNP [facility] 12-18 Natriuretic peptide.B prohormone N-Terminal [Mass/Vol] 280 pg/mL High <125 [facility] Comment on above: Order Comment: Ulisse walsh Type: BLOOD SPECIMEN Ordering Facility: [facility] Address: [address] [place] [address] Performed By: #### 3 040-3, 83325-4, 67742-8 #### [facility] CLIA [id number] [address] [place] CNOVon 12-11-2024 CNOV [address] [facility] CNPNon 11-20-2024 CNPN Telephone (AGLE[place]) -------- PAUL DAVENPORT ([id number]) 1975 F Date Time Provider Department 11/20/24 VASQUEZ BRUSH During your visit today, we recorded the following information about you: Jessica Milian MA 11/20/2024 1:33 PM Signed Patient called she states that the lasix is not working and she was wondering if the torsemide could be called in that she used before JENIFER Murguia Kristin C, APRN.ALBERTO 11/21/2024 5:00 PM Signed Rx sent. YVETTE Bolivar Kristin C, APRN.CNP 11/21/2024 5:00 PM Signed Addended by: VASQUEZ BRUSH on: 11/21/2024 05:00 PM Modules accepted: Orders Allergies As of Date: 11/20/2024 Noted Allergy Reaction DUST 01/27/2009 Comments: extreme coughing, dry hives METFORMIN 04/09/2023 14 - Other: See Comments Date Reviewed: 11/15/2024 Reviewed by: Vasquez Brush APRN.CNP - Fully Assessed Reason for Visit: Medication Problem [65] Order(s):torsemide (DEMADEX) 10 mg tabletTake 1 tablet by mouth once daily.Disp: 30 tabletRfl: 0 Prescriptions as of 11/21/2024 - torsemide (DEMADEX) 10 mg tablet Take 1 tablet by mouth once daily. - ibuprofen (MOTRIN) 800 mg tablet Take 1 tablet by mouth every 8 hours as needed for pain. - tirzepatide, weight loss (ZEPBOUND) 5 mg/0.5 mL solution Inject 0.5 mL subcutaneously one time a week. - propranolol (INDERAL) 20 mg tablet Take [...] as instructed two times a day. - ARIPiprazole (ABILIFY) 15 mg tablet Take 15 mg by mouth once daily. - levonorgestrel (MIRENA) 21 mcg/24hr (up to 8 yrs) 52 mg IUD 1 each by INTRAUTERINE route one time only. - senna-docusate (SENNA-S) 8.6-50 mg per tablet Take 2 tablets by mouth two times a day. - albuterol HFA (PROVENTIL HFA, VENTOLIN HFA) 90 mcg/actuation inhaler Inhale 2 puffs as instructed every 4 hours as needed for wheezing/shortness of breath. - Aspirin 81 mg tab Take 81 mg by mouth once daily. - iv [...] once daily. Problem List As Of Date 11/20/2024 Noted Resolved Bicuspid AV/AI.. G=16-20/mild [I35.9] 07/31/2001 [...] without sciatic*04/26/2022 Bilateral leg pain [M79.604, M79.605] more content not included)... Normal [facility] XR CHEST 2V FRONTAL/LATon XR CHEST 2V FRONTAL/LAT Normal [facility] CNPNon 11-18-2024 CNPN Telephone (COREEN) -------- DAVENPORTPAUL ([id number]) 1975 F Date Time Provider Department 11/18/24 VASQUEZ BRUSH During your visit today, we recorded the following information about you: Rosemary ArteagaJENIFER 11/18/2024 11:41 AM Signed Prior auth done for zepbound through cover my meds. Swenson BDRGJNBM. Rosemary WorkmankimberlyJENIFERRosemary harrisJENIFER 11/26/2024 9:08 AM Signed Medication was denied. Placed paper on your desk with number if you would like to appeal. JENIFER Hanson Kristin C, APRN.HEAVY DUTY MECHANIC 12/03/2024 12:41 PM Signed See other encounter. Vasquez Brush APRN.CNP Allergies As of Date: 11/18/2024 Noted Allergy Reaction DUST 01/27/2009 Comments: extreme coughing, dry hives METFORMIN 04/09/2023 14 - Other: See Comments Date Reviewed: 11/15/2024 Reviewed by: Vasquez Brush APRN.CNP - Fully Assessed Reason for Visit: Electronic Communication [370] Cmt: Prior auth for zepbound Prescriptions as of 12/03/2024 - tirzepatide, weight loss (ZEPBOUND) 5 mg/0.5 mL solution Inject 0.5 mL subcutaneously one time a week. - diazePAM (VALIUM) 5 mg tablet Take 1 tablet by mouth every 12 hours. - ARIPiprazole (ABILIFY) 20 mg tablet Take 1 tablet by mouth once daily. - FLUoxetine (PROZAC) 40 mg capsule Take 1 capsule by mouth once daily. - predniSONE (DELTASONE) 10 mg tablet Take 4 tablets by mouth once daily for 3 days, THEN 2 tablets once daily for 3 days, THEN 1 tablet once daily for 3 days. - torsemide (DEMADEX) 10 mg tablet Take 1 tablet by mouth [...] as instructed two times a day. - levonorgestrel (MIRENA) 21 mcg/24hr (up to 8 yrs) 52 mg IUD 1 each by INTRAUTERINE route one time only. - senna-docusate (SENNA-S) 8.6-50 mg per tablet Take 2 tablets by mouth two times a day. - albuterol HFA (PROVENTIL HFA, VENTOLIN HFA) 90 mcg/actuation inhaler Inhale 2 puffs as instructed every 4 hours as needed for wheezing/shortness of breath. - Aspirin 81 mg tab Take 81 mg by mouth once daily. - iv [...] the CT contrast administration guidelines link. - LORazepam (ATIVAN) 1 mg tablet Take 1 mg by mouth once daily as needed for anxiety. - cholecalciferol (VITAMIN D3) 1,000 unit tab tablet Take 2 tablets by mouth once daily. Problem List As Of Date 11/18/2024 Noted Resolved Bicuspid AV/AI.. G=16-20/mild [I35.9] 07/31/2001 [...] 05/19/2021 Prediabetes [R73.03] 05/19/2021 Obesity, Class II, (more content not included)... Normal [facility] CNOVon 10-28-2024 CNOV Office Visit (BERNABE ACOSTA) -------- PAUL DAVENPORT ([id number]) 1975 F Date Time Provider Department 10/28/24 10:40 AM VASQUEZ BRUSH During your visit today, we recorded the following information about you: Temperature Pulse Blood pressure Weight 98.1 degrees 93/minute 128/76 122 kg Height 1.626 m Vasquez Brush, CLINICAL NURSE OCCUPATIONAL MEDICINE.HEAVY DUTY MECHANIC 11/15/2024 8:26 PM Signed Subjective The patient consented to the use of Box software for draft documentation of the visit consistent with [facility]?s Notice of Privacy Practices. HPI Paul Davenport is a 49-year-old female with a history of recent cardiac surgery, presenting for follow-up. Paul reports a horrible hospital stay at [facility] for her recent cardiac surgery, citing multiple unsuccessful IV attempts by nursing staff. She notes a broken wire post-surgery and expresses difficulty returning to [facility] for follow-up due to transportation issues. Her sister, who lives 1.5 hours away, assisted with transportation for the initial surgery. Paul is currently residing in her apartment after a brief stay with her father, which did not work out. She is exploring housing options in [facility] to be closer to family but faces a two-year wait for public housing. She reports frequent sneezing and suspects a cold, but denies fevers or chest involvement. She notes persistent pain and a protruding stitch that she believes has not dissolved. She reports improved swelling and has been taking torsemide intermittently due to its diuretic effects. She is currently on clindamycin for a dental issue, which she reports causes significant gastrointestinal discomfort and has been taking it twice daily instead of the prescribed three times due to forgetfulness. She denies any drainage from the surgical site and reports improved healing. Paul has a history of a broken tooth and a new ulceration on the right lateral tongue, causing significant pain. She is seeking an oral surgeon covered by her insurance. She reports increased fatigue and irritability since discontinuing Lyrica, which she believes contributed to weight gain and swelling. She is currently under the care of a psychiatrist in [place] and is considering an increase in her Abilify dosage. She expresses a desire to address her weight gain and inquires about weight loss options. She reports improved breathing post-surgery and denies any history of pancreatitis or family history of thyroid cancer. She has a history of sleep apnea and is currently smoking a few cigarettes occasionally, but is trying to quit. I reviewed past medical, surgical, social, and [...] Partial rectal prolapse RP (rectal prolapse) ~2012 repeat prolapse 2023 Sleep apnea Tobacco abuse PAST SURGICAL HISTORY Procedure Laterality Date ABDOMINAL SURGERY HX COLON SURGERY HX 2019 rectal prolapse COLONOSCOPY 11/16/2014, 12/2017 No polyps/ severe diarrhea and prolapse CORRECT RECTAL PROLAPSE [address] with mesh CT ABD/PELVIS WO CONTRAST PANEL 11/2004 normal [...] DIAGNOSTIC age 24, 26 endometriosis, cysts removed MIDLINE INSERTION/CONSULT 09/08/2024 MRI BRAIN 05/2003 normal PFO CLOSURE 09/04/2024 SHX AORTIC VALVE REPLACEMENT 09/04/2024 SIGMOIDOSCOPY 01/1999 normal TONSILLECTOMY P (more content not included)... Normal [facility] CRP, High Sensitivity [id number] on 10-22-2024 CRP, HIGH SENS 49.75 mg/L High 0.00-3.00 [facility] Comment on above: Result Comment: Resu lts confirmed on dilution. Relative Risk for Future Cardiovascular Event Low <1.00 Average 1.00 - 3.00 High >3.00 Performed at: [employer] [facility] [id number] Form Layer: Massimo Humphries PhD, Phone: [phone] Performed By: #### L 0233.3146, L101.7300 #### [facility] [address] [place], [address] 12 Lead EKGon 10-20-2024 12 Lead EKG [facility] Services [address] [place] [address] 12 Lead EKG 10/20/24 1417 MR#: [id number] Acct: [id number] Name: PAUL DAVENPORT Rep #: [id number] : 1975 49 From: Dhruv Collazo MD Attending Dr: Status: DEP ER Ordering Dr: Hiram Garcia MD Date: 10/20/24 Location: ED Sex: F C Admitted: Test Reason : CP Blood Pressure : */* mmHG Vent. Rate : 105 BPM Atrial Rate : 105 BPM P-R Int : 152 ms QRS Dur : 88 ms QT Int : 356 ms P-R-T Axes : 46 26 110 degrees QTcB Int : 470 ms Sinus tachycardia T wave abnormality, consider lateral ischemia Abnormal ECG Confirmed by Dhruv Collazo ([id number]), food editor AYDEE LARIOS ([id number]) on 10/21/2024 11:01:25 AM Referred By: Confirmed By: Dhruv Collazo 10/21/24 1101 Date Dhruv Collazo MD CC: INTERIOR DESIGN ASSISTANT-Best Brush; Dr. Hiram Garcia MD Signed Normal [facility] Basic Metabolic Profile (BMP )on 10-20-2024 BUN/CRE 21.4 RATIO High 10-20 [facility] Comment on above: Performed By: #### L 499.0042 #### [facility] [address] [place], [address] Calcium [Mass/Vol] 9.0 mg/dL Normal 7.6-11.0 [facility] Comment on above: Performed By: #### L 499.0042 #### [facility] [address] [place], [address] Chloride [Moles/Vol] 102 mmol/L Normal 98-108 [facility] Comment on above: Performed By: #### L 499.0042 #### [facility] [address] [place], [address] CO2 [Moles/Vol] 25.2 mmol/L Normal 21.0-32.0 [facility] Comment on above: Performed By: #### L 499.0042 #### [facility] [address] [place], [address] Creatinine [Mass/Vol] 0.76 mg/dL Normal 0.70-1.20 [facility] Comment on above: Performed By: #### L 499.0042 #### [facility] [address] [place], [address] ECRCL 117.62 ml/min Normal 50-250 [facility] Comment on above: Performed By: #### L 499.0042 #### [facility] [address] [place], [address] GAP 12 Normal 5-15 [facility] Comment on above: Performed By: #### L 499.0042 #### [facility] [address] [place], [address] GFR/1.73 sq M.predicted among non-blacks MDRD (S/P/Bld) [Vol rate/Area] 98 mL/min/{1.73_m2} Normal >60 [facility] Comment on above: Result Comment: mL/m in/1.73m2 CKD-EPI Creatinine Equation (2020) Performed By: #### L 499.0042 #### [facility] [address] [place], [address] Glucose [Mass/Vol] 124 mg/dL High 70-99 [facility] Comment on above: Performed By: #### L 499.0042 #### [facility] [address] [place], [address] Potassium [Moles/Vol] 3.5 mmol/L Normal 3.3-5.1 [facility] Comment on above: Performed By: #### L 499.0042 #### [facility] [address] [place], [address] Sodium [Moles/Vol] 139 mmol/L Normal 133-145 [facility] Comment on above: Performed By: #### L 499.0042 #### [facility] [address] [place], [address] Urea nitrogen [Mass/Vol] 16 mg/dL Normal 4-19 [facility] Comment on above: Performed By: #### L 499.0042 #### [facility] [address] [place], [address] CBC W/Diff, Automatedon 09-0 -2024 Absolute Lymph 2.38 X10 3/uL Normal 0.83-4.51 [facility] Comment on above: Performed By: #### L 499.0042 #### [facility] [address] [place], [address] Absolute Neut 9.8 X10 3/uL High 2.0-7.7 [facility] Comment on above: Performed By: #### L 499.0042 #### [facility] [address] [place], [address] Basophils/100 WBC (Bld) 0.4 % Normal 0-1 [facility] Comment on above: Performed By: #### L 499.0042 #### [facility] [address] [place], [address] Eosinophils/100 WBC (Bld) 1.4 % Normal 0-5 [facility] Comment on above: Performed By: #### L 499.0042 #### [facility] [address] [place], [address] Erythrocyte distribution width (RBC) [Ratio] 14.4 % Normal 11.6-14.6 [facility] Comment on above: Performed By: #### L 499.0042 #### [facility] [address] [place], [address] Hematocrit (Bld) [Volume fraction] 33.4 % Low 37-47 [facility] Comment on above: Performed By: #### L 499.0042 #### [facility] [address] [place], [address] Hemoglobin (Bld) [Mass/Vol] 10.2 g/dL Low 12.0-15.0 [facility] Comment on above: Performed By: #### L 499.0042 #### [facility] [address] [place], [address] IG% 0.700 Normal 0.0-0.9 [facility] Comment on above: Result Comment: IG% - Immature Granulocytes (promyelocytes, myelocytes and metamyelocytes) > 1% indicates that a LEFT SHIFT is Present. Performed By: #### L 499.0042 #### [facility] [address] [place], [address] Lymphocytes/100 WBC (Bld) 18.1 % Low 19-41 [facility] Comment on above: Performed By: #### L 499.0042 #### [facility] [address] [place], [address] MCH (RBC) [Entitic mass] 26.0 pg Low 27.0-32.0 [facility] Comment on above: Performed By: #### L 499.0042 #### [facility] [address] [place], [address] MCHC (RBC) [Mass/Vol] 30.5 g/dL Low 32-36 [facility] Comment on above: Performed By: #### L 499.0042 #### [facility] [address] [place], [address] MCV (RBC) [Entitic vol] 85.0 fL Normal 81-99 [facility] Comment on above: Performed By: #### L 499.0042 #### [facility] [address] [place], [address] Monocytes/100 WBC (Bld) 5.0 % Normal 0-10 [facility] Comment on above: Performed By: #### L 499.0042 #### [facility] [address] [place], [address] Neutrophils/100 WBC (Bld) 74.4 % High 47-70 [facility] Comment on above: Performed By: #### L 499.0042 #### [facility] [address] [place], [address] Nucleated RBC (Bld) [#/Vol] 0 10*3/uL Normal 0-5 [facility] Comment on above: Performed By: #### L 499.0042 #### [facility] [address] [place], [address] Platelet mean volume (Bld) [Entitic vol] 9.2 fL Normal 6.2-12.0 [facility] Comment on above: Performed By: #### L 499.0042 #### [facility] [address] [place], [address] Platelets (Bld) [#/Vol] 522 10*3/uL High 150-450 [facility] Comment on above: Performed By: #### L 499.0042 #### [facility] [address] [place], [address] RBC (Bld) [#/Vol] 3.93 10*6/uL Low 4.2-5.4 [facility] Comment on above: Performed By: #### L 499.0042 #### [facility] [address] [place], [address] RDW SD 44.6 fl High 35.1-43.9 [facility] Comment on above: Performed By: #### L 499.0042 #### [facility] [address] [place], [address] WBC (Bld) [#/Vol] 13.2 10*3/uL High 4.4-11.0 [facility] Comment on above: Performed By: #### L 499.0042 #### [facility] [address] [place], [address] CTA Chest W/WO Contraston CTA Chest W/WO Contrast [facility] Imaging Services [address] [place] [address] CTA Chest W/WO Contrast MR#: [id number] Acct: [id number] Name: PAUL DAVENPORT Lashae Rep #: [id number] : 1975 F 49 From: Maxwell Casanova MD PCP: Vasquez Brush NP-Best Status: [facility] ER Study: CTA Chest W/WO Contrast Date of Exam: 10/20/24 Exam# [id number] Ordering Dr: Hiram Garcia MD PROCEDURE: CTA CHEST W/WO CONTRAST 10/20/2024 REASON FOR EXAM: CP POST OPEN HEART SURGERY TECHNIQUE: Procedure Code: [id number] Modality: CT Procedure: CTA CHEST W/WO CONTRAST Multiplanar Sagittal and Coronal images were obtained. MIP reconstructions were generated CONTRAST: Isovue 370 VOLUME: 99 mL One or more dose reduction techniques were used (e.g., Automated exposure control, adjustment of the mA and/or kV according to patient size, use of iterative reconstruction technique). RADIATION DOSE SUMMARY: CTDlvol: 3.38+ 10.15+ 22.56 mGy DLP: 781.32 mGycm COMPARISON: No prior CT or CTA chest FINDINGS: Mild motion limitation. Heart/pericardium: Recent appearing sternotomy with bioprosthetic aortic valve, again with fracture of the cranial most manubrial wire, ununited sternal margins, and dehiscence of the manubrial incision of roughly 1.7 cm. Sternal margins appear are more closely apposed, with up to 3 mm of separation along the sternotomy margins. Ill-defined fluid and stranding in the presternal and retrosternal/anterior mediastinal regions, some of which appears of intermediate density and is compatible with blood products however no large/organized mediastinal hematoma is present. Trace pericardial thickening/pericardial fluid. Coronary atherosclerosis and/or stents. Aorta: Unremarkable. Pulmonary arteries: Top-normal in caliber. Exam not optimized for detection of pulmonary emboli, however none are definitely seen centrally. Lymph nodes: Unremarkable. Lungs/pleura: Very mild linear likely atelectasis/scarring. Airways: Unremarkable. Chest wall: As above. Peripherally calcified subcentimeter RIGHT lobe thyroid nodule.. Upper abdomen: Grossly unremarkable. Musculoskeletal: As above. Mild spondylosis.. CT/CTA Chest W/WO Contrast IMPRESSION: 1. Recent appearing operative changes as above. Presternal and retrosternal stranding/ill defined fluid are nonspecific in the recent operative context and may be postoperative however surgical site infection cannot be excluded by imaging. Minimal anterior mediastinal high attenuation fluid probably reflects a component of blood products however no sizable mediastinal hematoma or obvious organized abscess is present currently. 2. Redemonstrated fracture of cranial most manubrial wire with associated dehiscence of ununited manubrial fragments of roughly 1.7 cm. Minimally dehiscent ununited sternotomy margins. 3. Recommend outpatient thyroid ultrasound. 4. Additional description as above. Reading Location: [id number] CC: MELANIA Brush; Dr. Hiram Garcia MD Plant Attendant: Signed Normal [facility] Chest PA and Lateralon 10-20 Chest PA and Lateral [facility] Imaging Services [address] [place], [place] [id number] Chest PA and Lateral MR#: [id number] Acct: [id number] Name: PAUL DAVENPORT Rep #: [id number] : 1975 F 49 From: Donita Purcell PCP: MELANIA Whatley Status: REG ER Study: Chest PA and Lateral Date of Exam: 10/20/24 Exam# [id number] Ordering Dr: Hiram Garcia MD PROCEDURE: CHEST PA AND LATERAL 10/20/2024 REASON FOR EXAM: CHEST PAIN TECHNIQUE: Procedure: CHEST PA AND LATERAL standard protocol COMPARISON: 06/19/24 FINDINGS: No focal consolidation. No pleural effusion or pneumothorax. Cardiac silhouette is within normal limits. No acute fractures. Median sternotomy wires of which, most superior one appears fractures. RAD/Chest PA and Lateral IMPRESSION: No focal consolidations. Median sternotomy wires of which, most superior one appears fractures. Reading Location: [id number] CC: MELANIA Brush; Dr. Hiram Garcia MD Plant Attendant: Signed Normal [facility] D-Dimer Quantitative (DVT/PE )on 10-20-2024 D-DIMER QUANT 1.49 FEU/ug/m Invalid Interpretation Code 0.27-0.49 [facility] Comment on above: Result Comment: D-Di giovana ELEVATED (>0.49): Additional studies and clinical assessments are indicated to conclude diagnosis of: Deep Vein Thrombosis (DVT) or Pulmonary Embolism (PE) CRITICAL VALUE CALLED TO HORR 10/20/24 Karen Rodas. RESULTS READ BACK BY SAME. Performed By: #### L 300.8000 #### [facility] [address] [place], [address] Emergency Department Summary on 10-20-2024 Emergency Department Summary [facility] Medical Records Department [address] [place] [address] Emergency Department Summary 10/20/24 MR#: [id number] Acct: [id number] Name: PAUL DAVENPORT Rep #: [id number] : 1975 49 From: Hiram Garcia MD PCP: MELANIA Whatley Status:REG ER Location: ED HPI History of Present Illness Chief Complaint: Chest Pain Informant: patient Onset/Context/Timing Onset: Weeks Activity at onset: gradual Timing: Continuous Quality: Positive for Aching Location: Substernal (Midsternal over her recent sternotomy incision. Incision is dry and clean. Is not red. There is no drainage or discharge it looks like it is healing well.) Current Severity: Mild Maximum Severity: Mild Worsened By: Movement of Torso Relieved By: Remaining Still Associated Symptoms: Negative for Nausea, Vomiting, Diaphoresis, Cough, Fever or Lightheadedness Narrative Narrative: 49-year-old female status post sternotomy open heart surgery done at the [facility] 5 weeks ago for replaced aortic valve and either an ASD or VSD was repaired. She has never had DVT or PE she is currently on no blood thinners. She said ever since the surgery for the last 5 weeks she has had midsternal chest pain. Movement makes it worse. She denies fever or chills. She denies any redness or drainage to her incision site. She has been evaluated by this in the [facility] is aware of it. Prior Similar Symptoms: Yes Recent Illness/Hospitalization: Yes CVD Risk Factors: Negative for Diabetes PE Risk Factors: Positive for Recent Travel/Surgery; Negative for Recent Immobilization, Prior DVT or PE, Cancer, OCP + Smoking + >/=35 or - TAD Risk Factors: Negative for Marfan's Syndrome [facility] Medical History Asthma Hypertension Migraine Bulimia Lesion [...] applic topical BID 08/09/23 Un known History esomeprazole magnesium 40 mg 40 mg PO BID 08/09/23 Unknown Hist ory capsule,delayed release (Nexium) fluoxetine 40 mg capsule 80 mg PO DAILY 08/09/23 Unknown Hi story lisinopril 10 mg tablet 10 mg PO [...] 5 days 06/19/24 Unknown Rx #10 tabs aripiprazole 15 mg tablet 15 mg PO DAILY 10/20/24 Unknown Hi story clopidogrel 75 mg tablet 75 mg PO DAILY 10/20/24 Unknown Hi story fluticasone 250 mcg-salmeterol 50 1 ea inhalation BID 10/20/24 Unkn own History mcg/dose blistr powdr for inhalation fluticasone propionate 50 1 spray intranasal DAILY 10/20/24 Unknown History mcg/actuation nasal spray,suspension furosemide 20 mg tablet 20 mg PO DAILY 10/20/24 Unknown Hi story furosemide 40 mg tablet 40 mg PO BID 10/20/24 Unknown Hist ory oxycodone-acetaminophen 5 mg-325 1 tab PO Q6H PRN pain 3 days #10 0 10/20/24 Unknown Rx mg tablet (Percocet) tabs Allergy/AdvReac Type Severity Reaction Status Date / Time metformin AdvReac Severe Other Verified 10/20/24 14:14 Surgical History Hx of laparoscopy Hx of ovarian cystectomy Hx of tonsillectomy Social History housing: house Smoking Status: Light Smoker (<10/day) details: Social substance use type: does not use ROS ROS ED ROS Narrative Denies recent illness. Constitutional Constitutional ED: Denies chills or fever(s) Eyes Eyes: Reports none ENT ENT ED: Denies ear pain Cardiovascular Cardiovascular: Reports chest pain Respiratory/Chest Respiratory/Chest: Denies cough, dyspnea or dyspnea on exertion Gastrointestinal Gastrointestinal: Denies abdominal pain Genitourinary Genitourinary ED: Denies dysuria or hematuria Musculoskeletal Musculoskeletal: Denies arthralgias, back pain or myalgias Integumentary Denies abscess, Abrasions or ra (more content not included)... Normal [facility] Erythrocyte Sed Rateon 10-20 SED RATE 52 mm/hr High 0-30 [facility] Comment on above: Performed By: #### L 3100.7870, L101.9900 #### [facility] [address] [place], [address] L501.4021on 10-20-2024 Trop T High Sen 12 ng/L Normal <=14 [facility] Comment on above: Performed By: #### L 499.0042 #### [facility] [address] [place], [address] Troponin T HS 2 HRon 025 Trop T High Sen 12 ng/L Normal <=14 [facility] Comment on above: Performed By: #### L 499.0042 #### [facility] [address] [place], [address] Troponin T HS 4 HRon 10-20- 025 Trop T High Sen 11 ng/L Normal <=14 [facility] Comment on above: Performed By: #### L 499.0043 #### [facility] [address] [place], [address] CNPNon 10-08-2024 CNPN Normal [facility] Basic metabolic 2000 panelon 09-29-2024 Anion gap [Moles/Vol] 13 mmol/L 10 - 2 0 mmol/L [facility] Calcium [Mass/Vol] 8.9 mg/dL 8.6 - 10. 3 mg/dL [facility] Chloride [Moles/Vol] 102 mmol/L 98 - 10 7 mmol/L [facility] CO2 [Moles/Vol] 27 mmol/L 21 - 32 mmol/L [facility] Creatinine [Mass/Vol] 0.69 mg/dL 0.50 - 1.05 mg/dL [facility] eGFR - PINF [facility] Comment on above: Calculations of tsering mated GFR are performed using the 2020 CKD-EPI Study Refit equation without the race variable for the IDMS-Traceable creatinine methods. https://jasn.asnjournals.org/content//ASN.73846 29164 Glucose [Mass/Vol] 139 mg/dL High 74 - 99 mg/dL [facility] Interpretation and review of laboratory results Abnormal [facility] Potassium [Moles/Vol] 3.7 mmol/L 3.5 - 5.3 mmol/L [facility] Sodium [Moles/Vol] 138 mmol/L 136 - 145 mmol/L [facility] Urea nitrogen [Mass/Vol] 14 mg/dL 6 - 23 mg/dL [facility] Anion gap [Moles/Vol] 13 mmol/L Normal 10-20 [facility] Comment on above: Performed By: #### 2 4321-2 #### MAXWELL Guillaume ([id number]) [facility] ([facility]) [address] [place] [address] Calcium [Mass/Vol] 8.9 mg/dL Normal 8.6-10.3 [facility] Comment on above: Performed By: #### 2 4321-2 #### MAXWELL Guillaume ([id number]) [facility] ([facility]) [address] [place] [address] Chloride [Moles/Vol] 102 mmol/L Normal 98-107 [facility] Comment on above: Performed By: #### 2 4321-2 #### MAXWELL Guillaume ([id number]) [facility] ([facility]) [address] [place] [address] CO2 [Moles/Vol] 27 mmol/L Normal 21-32 [facility] Comment on above: Performed By: #### 2 4321-2 #### MAXWELL Guillaume ([id number]) [facility] ([facility]) [address] [place] [address] Creatinine [Mass/Vol] 0.69 mg/dL Normal 0.50-1.05 [facility] Comment on above: Performed By: #### 2 4321-2 #### MAXWELL Guillaume ([id number]) [facility] ([facility]) [address] [facility] [address] Glomerular filtration rate >90 Normal >60 [facility] Comment on above: Result Comment: Calc ulations of estimated GFR are performed using the 2020 CKD-EPI Study Refit equation without the race variable for the IDMS-Traceable creatinine methods. https://jasn.asnjournals.org/content/early//ASN.82022 24815 Performed By: #### 2 4321-2 #### MAXWELL Guillaume ([id number]) [facility] ([facility]) [address] [place] [address] Glucose [Mass/Vol] 139 mg/dL High 74-99 [facility] Comment on above: Performed By: #### 2 4321-2 #### MAXWELL Guillaume ([id number]) [facility] ([facility]) [address] [place] [address] Potassium [Moles/Vol] 3.7 mmol/L Normal 3.5-5.3 [facility] Comment on above: Performed By: #### 2 4321-2 #### MAXWELL Guillaume ([id number]) [facility] ([facility]) [address] [place] [address] Sodium [Moles/Vol] 138 mmol/L Normal 136-145 [facility] Comment on above: Performed By: #### 2 4321-2 #### MAXWELL Guillaume ([id number]) [facility] ([facility]) [address] [place] [address] Urea nitrogen [Mass/Vol] 14 mg/dL Normal 6-23 [facility] Comment on above: Performed By: #### 2 4321-2 #### MAXWELL Guillaume ([id number]) [facility] ([facility]) [address] [place] [address] CBC W Auto Differential pane l (Bld)on 09-29-2024 Basophils (Bld) [#/Vol] 0.02 10*3/uL [facility] Basophils/100 WBC (Bld) 0.2 % 0.0 - 2.0 % [facility] Eosinophils (Bld) [#/Vol] 0.31 10*3/uL [facility] Eosinophils/100 WBC (Bld) 3.7 % 0.0 - 6.0 % [facility] Erythrocyte distribution width (RBC) [Ratio] 14.4 % 11.5 - 14.5 % [facility] Hematocrit (Bld) [Volume fraction] 32.8 % Low 36.0 - 46.0 % [facility] Hemoglobin (Bld) [Mass/Vol] 10.4 g/dL Low 12.0 - 16.0 g/dL [facility] Immature granulocytes (Bld) [#/Vol] 0.04 10*3/uL [facility] Immature granulocytes/100 WBC (Bld) 0.5 % 0.0 - 0.9 % [facility] Comment on above: Immature Granulocyte Count (IG) includes promyelocytes, myelocytes and metamyelocytes but does not include bands. Percent differential counts (%) should be interpreted in the context of the absolute cell counts (cells/UL). Interpretation and review of laboratory results Abnormal [facility] Lymphocytes (Bld) [#/Vol] 2.12 10*3/uL [facility] Lymphocytes/100 WBC (Bld) 25.5 % 13.0 - 44.0 % [facility] MCH (RBC) [Entitic mass] 28.2 pg 26.0 - 34.0 pg [facility] MCHC (RBC) [Mass/Vol] 31.7 g/dL Low 32.0 - 36.0 g/dL [facility] MCV (RBC) [Entitic vol] 89 fL 80 - 100 fL [facility] Monocytes (Bld) [#/Vol] 0.49 10*3/uL [facility] Monocytes/100 WBC (Bld) 5.9 % 2.0 - 10.0 % [facility] Neutrophils (Bld) [#/Vol] 5.32 10*3/uL [facility] Comment on above: Percent differential counts (%) should be interpreted in the context of the absolute cell counts (cells/uL). Neutrophils/100 WBC (Bld) 64.2 % 40.0 - 80.0 % [facility] Nucleated RBC/100 WBC (Bld) [Ratio] 0.0 % [facility] Platelets (Bld) [#/Vol] 531 10*3/uL High [facility] RBC (Bld) [#/Vol] 3.69 10*6/uL Low [facility] WBC (Bld) [#/Vol] 8.3 10*3/uL [facility] Basophils (Bld) [#/Vol] 0.02 x10*3/uL Normal 0.00-0.10 [facility] Comment on above: Performed By: #### 5 7021-8 #### MAXWELL Guillaume ([id number]) [facility] ([facility]) [address] [place] [address] Basophils/100 WBC (Bld) 0.2 % Normal 0.0-2.0 [facility] Comment on above: Performed By: #### 5 7021-8 #### MAXWELL Guillaume ([id number]) [facility] ([facility]) [address] [place] [address] Eosinophils (Bld) [#/Vol] 0.31 x10*3/uL Normal 0.00-0.70 [facility] Comment on above: Performed By: #### 5 7021-8 #### MAXWELL Guillaume ([id number]) [facility] ([facility]) [address] [place] [address] Eosinophils/100 WBC (Bld) 3.7 % Normal 0.0-6.0 [facility] Comment on above: Performed By: #### 5 7021-8 #### MAXWELL Guillaume ([id number]) [facility] ([facility]) [address] [place] [address] Erythrocyte distribution width (RBC) [Ratio] 14.4 % Normal 11.5-14.5 [facility] Comment on above: Performed By: #### 5 7021-8 #### MAXWELL Guillaume ([id number]) [facility] ([facility]) [address] [place] [address] Hematocrit (Bld) [Volume fraction] 32.8 % Low 36.0-46.0 [facility] Comment on above: Performed By: #### 5 7021-8 #### MAXWELL Guillaume ([id number]) [facility] ([facility]) [address] [place] [address] Hemoglobin (Bld) [Mass/Vol] 10.4 g/dL Low 12.0-16.0 [facility] Comment on above: Performed By: #### 5 7021-8 #### MAXWELL Guillaume ([id number]) [facility] ([facility]) [address] [place] [address] Immature granulocytes (Bld) [#/Vol] 0.04 x10*3/uL Normal 0.00-0.70 [facility] Comment on above: Performed By: #### 5 7021-8 #### MAXWELL Guillaume ([id number]) [facility] ([facility]) [address] [place] [address] Immature granulocytes/100 WBC (Bld) 0.5 % Normal 0.0-0.9 [facility] Comment on above: Result Comment: Marina ture Granulocyte Count (IG) includes promyelocytes, myelocytes and metamyelocytes but does not include bands. Percent differential counts (%) should be interpreted in the context of the absolute cell counts (cells/UL). Performed By: #### 5 7021-8 #### MAXWELL Guillaume ([id number]) [facility] ([facility]) [address] [place] [address] Lymphocytes (Bld) [#/Vol] 2.12 x10*3/uL Normal 1.20-4.80 [facility] Comment on above: Performed By: #### 5 7021-8 #### MAXWELL Guillaume ([id number]) [facility] ([facility]) [address] [place] [address] Lymphocytes/100 WBC (Bld) 25.5 % Normal 13.0-44.0 [facility] Comment on above: Performed By: #### 5 7021-8 #### MAXWELL Guillaume ([id number]) [facility] ([facility]) [address] [place] [address] MCH (RBC) [Entitic mass] 28.2 pg Normal 26.0-34.0 [facility] Comment on above: Performed By: #### 5 7021-8 #### MAXWELL Guillaume ([id number]) [facility] ([facility]) [address] [facility] [place] [address] MCHC (RBC) [Mass/Vol] 31.7 g/dL Low 32.0-36.0 [facility] Comment on above: Performed By: #### 5 7021-8 #### MAXWELL Guillaume ([id number]) [facility] ([facility]) [address] [facility] [place] [address] MCV (RBC) [Entitic vol] 89 fL Normal 80-100 [facility] Comment on above: Performed By: #### 5 7021-8 #### MAXWELL Guillaume ([id number]) [facility] ([facility]) [address] [place] [address] Monocytes (Bld) [#/Vol] 0.49 x10*3/uL Normal 0.10-1.00 [facility] Comment on above: Performed By: #### 5 7021-8 #### MAXWELL Guillaume ([id number]) [facility] ([facility]) [address] [place] [address] Monocytes/100 WBC (Bld) 5.9 % Normal 2.0-10.0 [facility] Comment on above: Performed By: #### 5 7021-8 #### MAXWELL Guillaume ([id number]) [facility] ([facility]) [address] [place] [address] Neutrophils (Bld) [#/Vol] 5.32 x10*3/uL Normal 1.20-7.70 [facility] Comment on above: Result Comment: Perc ent differential counts (%) should be interpreted in the context of the absolute cell counts (cells/uL). Performed By: #### 5 7021-8 #### MAXWELL Guillaume ([id number]) [facility] ([facility]) [address] [place] [address] Neutrophils/100 WBC (Bld) 64.2 % Normal 40.0-80.0 [facility] Comment on above: Performed By: #### 5 7021-8 #### MAXWELL Guillaume ([id number]) [facility] ([facility]) [address] [place] [address] Nucleated RBC/100 WBC (Bld) [Ratio] 0.0 /100 WBCs Normal 0.0-0.0 [facility] Comment on above: Performed By: #### 5 7021-8 #### MAXWELL Guillaume ([id number]) [facility] ([facility]) [address] [place] [address] Platelets (Bld) [#/Vol] 531 x10*3/uL High 150-450 [facility] Comment on above: Performed By: #### 5 7021-8 #### MAXWELL Guillaume ([id number]) [facility] ([facility]) [address] [place] [address] RBC (Bld) [#/Vol] 3.69 x10*6/uL Low 4.00-5.20 [facility] Comment on above: Performed By: #### 5 7021-8 #### MAXWELL Guillaume ([id number]) [facility] ([facility]) [address] [place] [address] WBC (Bld) [#/Vol] 8.3 x10*3/uL Normal 4.4-11.3 [facility] Comment on above: Performed By: #### 5 7021-8 #### MAXWELL SIFUNETESALEJANDRINA Guillaume ([id number]) [facility] ([facility]) [address] [place] [address] CT ANGIO CHEST FOR PULMONARY EMBOLISMon 09-29-2024 CT ANGIO CHEST FOR PULMONARY EMBOLISM Interpreted By: Prasanth Villavicencio, STUDY: CT ANGIO CHEST FOR PULMONARY EMBOLISM; 09/29/2024 1:24 am INDICATION: Signs/Symptoms:Pleuritic chest pain status post sternotomy pain to area concern for possible complication or PE. Status post aortic valve replacement 2 weeks ago COMPARISON: None. ACCESSION NUMBER(S): [id number] ORDERING CLINICIAN: RIKY CHEW TECHNIQUE: Helical data [...] Prasanth Villavicencio 09/29/2024 2:13 AM Dictation workstation: [id number] [facility] CT Chest W contrast IV and C [...] Prasanth Villavicencio 09/29/2024 2:13 AM Dictation workstation: [id number] Interpreted By: Prasanth Alaniz, STUDY: CT ANGIO CHEST FOR PULMONARY EMBOLISM; 09/29/2024 1:24 am INDICATION: Signs/Symptoms:Pleuritic chest pain status post sternotomy pain to area concern for possible complication or PE. Status post aortic valve replacement 2 weeks ago COMPARISON: None. ACCESSION NUMBER(S): [id number] ORDERING CLINICIAN: RIKY CHEW TECHNIQUE: Helical data [...] not identified. Multilevel degenerative changes are present. [facility]AL Prasanth Villavicencio MD - 09/29/2024 Interpreted By: Prasanth Villavicencio, STUDY: CT ANGIO CHEST FOR PULMONARY EMBOLISM; 09/29/2024 1:24 am INDICATION: Signs/Symptoms:Pleuritic chest pain status post sternotomy pain to area concern for possible complication or PE. Status post aortic valve replacement 2 weeks ago COMPARISON: None. ACCESSION NUMBER(S): [id number] ORDERING CLINICIAN: RIKY CHEW TECHNIQUE: Helical data [...] Prasanth Villavicencio 09/29/2024 2:13 AM Dictation workstation: [id number] [facility] Work Phone: Radiology Study observation (narrative) [facility] Work Phone: CT Chest W contrast IV and C T angiogram Pulmonary arteries for pulmonary embolus W contrast IVOrdered By: Prasanth Villavicencio on 09-29-2024 [facility] Work Phone: ECG 12-LEADon 09-29-2024 ECG 12-LEAD Ventricular Rate 89 Atrial Rate 89 P-R Interval 162 QRS Duration 90 Q-T Interval 376 QTC Calculation(Bazett) 457 P [place] 54 R [place] 18 T [place] 108 QRS Count 15 Q Onset 218 P Onset 137 P Offset 184 T Offset 406 QTC Fredericia 428 Diagnosis Normal sinus rhythm T wave abnormality, consider lateral ischemia Abnormal ECG No previous ECGs available Confirmed by Cecilia Chavez ([id number]) on 10/09/2024 5:45:37 PM Normal [facility] FLUAV and FLUBV RNA KADY+prob e Nom (Unsp spec)on 09-29-2024 FLUAV RNA KADY+probe Ql (Resp) Not detected Not Detected [facility] FLUBV RNA KADY+probe Ql (Resp) Not detected Not Detected [facility] This assay is an in vitro diagnostic multiplex nucleic acid amplification test for the detection and discrimination of Influenza A & B from nasopharyngeal specimens, and has been validated for use at [facility]. Negative results do not preclude Influenza A/B infections, and should not be used as the sole basis for diagnosis, treatment, or other management decisions. If Influenza A/B and RSV PCR results are negative, testing for Parainfluenza virus, Adenovirus and Metapneumovirus is routinely performed for [facility] pediatric oncology and intensive care inpatients, and is available on other patients by placing an add-on request. [facility] FLUAV RNA KADY+probe Ql (Resp) Not detected Normal Not Detected [facility] Comment on above: Order Comment: This assay is an in vitro diagnostic multiplex nucleic acid amplification test for the detection and discrimination of Influenza A & B from nasopharyngeal specimens, and has been validated for use at [facility]. Negative results do not preclude Influenza A/B infections, and should not be used as the sole basis for diagnosis, treatment, or other management decisions. If Influenza A/B and RSV PCR results are negative, testing for Parainfluenza virus, Adenovirus and Metapneumovirus is routinely performed for [facility] pediatric oncology and intensive care inpatients, and is available on other patients by placing an add-on request. Performed By: #### 4 8509-4 #### MAXWELL Guillaume ([id number]) [facility] ([facility]) [address] [place] [address] FLUBV RNA KADY+probe Ql (Resp) Not detected Normal Not Detected [facility] Comment on above: Order Comment: This assay is an in vitro diagnostic multiplex nucleic acid amplification test for the detection and discrimination of Influenza A & B from nasopharyngeal specimens, and has been validated for use at [facility]. Negative results do not preclude Influenza A/B infections, and should not be used as the sole basis for diagnosis, treatment, or other management decisions. If Influenza A/B and RSV PCR results are negative, testing for Parainfluenza virus, Adenovirus and Metapneumovirus is routinely performed for [facility] pediatric oncology and intensive care inpatients, and is available on other patients by placing an add-on request. Performed By: #### 4 8509-4 #### MAXWELL Guillaume ([id number]) [facility] ([facility]) [address] [place] [address] Magnesiumon 09-29-2024 Magnesium [Mass/Vol] 2.04 mg/dL 1.60 - 2.40 mg/dL [facility] Magnesium [Mass/Vol] 2.04 mg/dL Normal 1.60-2.40 [facility] Comment on above: Performed By: #### 1 9123-9 #### MAXWELL Guillaume ([id number]) [facility] ([facility]) [address] [place] [address] Magnesium [Mass/Vol]on 09-29 Interpretation and review of laboratory results Normal [facility] Natriuretic peptide B [Mass/ Vol]on 09-29-2024 Interpretation and review of laboratory results Abnormal [facility] Natriuretic peptide B (Bld) [Mass/Vol] 143 pg/mL High 0 - 99 pg/mL [facility] <100 pg/mL - Heart failure unlikely 100-299 pg/mL - Intermediate probability of acute heart failure exacerbation. Correlate with clinical context and patient history. >=300 pg/mL - Heart Failure likely. Correlate with clinical context and patient history. BNP testing is performed using different testing methodology at [facility] than at other [facility]. Direct result comparisons should only be made within the same method. [facility] Natriuretic peptide B (Bld) [Mass/Vol] 143 pg/mL High 0-99 [facility] Comment on above: Order Comment: <100 pg/mL - Heart failure unlikely 100-299 pg/mL - Intermediate probability of acute heart failure exacerbation. Correlate with clinical context and patient history. >=300 pg/mL - Heart Failure likely. Correlate with clinical context and patient history. BNP testing is performed using different testing methodology at [facility] than at [facility]. Direct result comparisons should only be made within the same method. Performed By: #### 3 0934-4 #### MAXWELL Guillaume ([id number]) [facility] ([facility]) [address] [place] [address] No Panel Informationon 09-29 Interpretation and review of laboratory results Normal [facility] SARS coronavirus 2 RNAon SARS-CoV-2 (COVID-19) RNA KADY+probe Ql (Resp) Not detected Normal Not Detected [facility] Comment on above: Order Comment: This assay is an FDA-cleared, in vitro diagnostic nucleic acid amplification test for the qualitative detection and differentiation of SARS CoV-2 from nasopharyngeal specimens collected from individuals with signs and symptoms of respiratory tract infections, and has been validated for use at [facility]. Negative results do not preclude COVID-19 infections and should not be used as the sole basis for diagnosis, treatment, or other management decisions. Testing for SARS CoV-2 is recommended only for patients who meet current clinical and/or epidemiological criteria defined by federal, state, or local public health directives. Performed By: #### 9 4500-6 #### MAXWELL Guillaume ([id number]) [facility] ([facility]) [address] [place] [address] SARS-CoV-2 (COVID-19) RNA NA A+probe Ql (Resp)on 09-29-2024 This assay is an FDA-cleared, in vitro diagnostic nucleic acid amplification test for the qualitative detection and differentiation of SARS CoV-2 from nasopharyngeal specimens collected from individuals with signs and symptoms of respiratory tract infections, and has been validated for use at [facility]. Negative results do not preclude COVID-19 infections and should not be used as the sole basis for diagnosis, treatment, or other management decisions. Testing for SARS CoV-2 is recommended only for patients who meet current clinical and/or epidemiological criteria defined by federal, state, or local public health directives. [facility] Sars-CoV-2 PCRon 09-29-2024 SARS-CoV-2 (COVID-19) RNA KADY+probe Ql (Resp) Not detected Not Detected [facility] Tropinin I.cardiac panel Hig h sensitivity methodon 09-29-2024 Interpretation and review of laboratory results Normal [facility] Less than 99th percentile of normal range [...] performed using a different testing methodology at [facility] than at other [facility]. Direct result comparisons should only be made within the same method. [facility] Interpretation and review of laboratory results Normal [facility] Less than 99th percentile of normal range [...] performed using a different testing methodology at [facility] than at other [facility]. Direct result comparisons should only be made within the same method. [facility] Troponin I, High Sensitivity , Initialon 09-29-2024 Tropinin I.cardiac panel High sensitivity method 10 ng/L 0 - 13 ng/L [facility] Troponin I.cardiac panelon 0 09-29-2024 Tropinin I.cardiac panel High sensitivity method 10 ng/L Normal 0-13 [facility] Comment on above: Order Comment: Less than [...] performed using a different testing methodology at [facility] than at [facility]. Direct result comparisons should only be made within the same method. Performed By: #### 8 9577-1 #### MAXWELL Guillaume ([id number]) [facility] ([facility]) [address] [place] [address] Tropinin I.cardiac panel High sensitivity method 10 ng/L Normal 0-13 [facility] Comment on above: Order Comment: Less than [...] performed using a different testing methodology at [facility] than at [facility]. Direct result comparisons should only be made within the same method. Performed By: #### 8 9577-1 #### MAXWELL Guillaume ([id number]) [facility] ([facility]) [address] [place] [address] Troponin, High Sensitivity, 1 Houron 09-29-2024 Tropinin I.cardiac panel High sensitivity method 10 ng/L 0 - 13 ng/L [facility] CNPNon 09-25-2024 CNPN Normal [facility] CBC panel Auto (Bld)on 09-18 Erythrocyte distribution width (RBC) [Ratio] 15.5 % High 11.5-15.[address] [facility] Comment on above: Order Comment: Speci men Type: BLOOD SPECIMENOrdering Facility: [facility] Address: [address] [place] [address] Performed By: #### 5 8410-2 ####[facility] [id number] [place] [address] [place] Hematocrit (Bld) [Volume fraction] 28.5 % Low 36.0-46.[address] [facility] Comment on above: Order Comment: Speci men Type: BLOOD SPECIMENOrdering Facility: [facility] Address: [address] [place] [address] Performed By: #### 5 8410-2 ####[facility] [id number] [place] [address] [place] Hemoglobin (Bld) [Mass/Vol] 8.7 g/dL Low 11.5-15.[address] [facility] Comment on above: Order Comment: Speci men Type: BLOOD SPECIMENOrdering Facility: [facility] Address: [address] [place] [address] Performed By: #### 5 8410-2 ####[facility] [id number] [place] [id number] [place] MCH (RBC) [Entitic mass] 28.5 pg Normal 26.0-34.[address] [facility] Comment on above: Order Comment: Speci men Type: BLOOD SPECIMENOrdering Facility: [facility] Address: [address] [place] [address] Performed By: #### 5 8410-2 ####[facility] [id number] [place] [id number] [place] MCHC (RBC) [Mass/Vol] 30.5 g/dL Normal 30.5-36.0 [facility] Comment on above: Order Comment: Speci men Type: BLOOD SPECIMENOrdering Facility: [facility] Address: [address] [place] [address] Performed By: #### 5 8410-2 ####[facility] [id number] [place] [address] [place] MCV (RBC) [Entitic vol] 93.4 fL Normal 80.0-100.[address] [facility] Comment on above: Order Comment: Speci men Type: BLOOD SPECIMENOrdering Facility: [facility] Address: [address] [place] [address] Performed By: #### 5 8410-2 ####[facility] [id number] [place] [address] [place] Nucleated RBC (Bld) [#/Vol] 0.02 10*3/uL High <0.[address] [facility] Comment on above: Order Comment: Speci men Type: BLOOD SPECIMENOrdering Facility: [facility] Address: [address] [place] [address] Performed By: #### 5 8410-2 ####[facility] [id number] [place] [address] [place] Platelet mean volume (Bld) [Entitic vol] 8.7 fL Low 9.0-12.[address] [facility] Comment on above: Order Comment: Speci men Type: BLOOD SPECIMENOrdering Facility: [facility] Address: [address] [place] [address] Performed By: #### 5 8410-2 ####[facility] [id number] [place] [address] [place] Platelets (Bld) [#/Vol] 638 10*3/uL High 150-[address] [facility] Comment on above: Order Comment: Speci men Type: BLOOD SPECIMENOrdering Facility: [facility] Address: [address] [place] [address] Performed By: #### 5 8410-2 ####[facility] LABCLIA [id number] [address] [address] [place] RBC (Bld) [#/Vol] 3.05 10*6/uL Low 3.90-5.20 [facility] Comment on above: Order Comment: Speci men Type: BLOOD SPECIMENOrdering Facility: [facility] Address: [address] [place] [address] Performed By: #### 5 8410-2 ####[facility] [id number] [address] [address] [place] WBC (Bld) [#/Vol] 10.60 10*3/uL Normal 3.70-11.00 [facility] Comment on above: Order Comment: Speci men Type: BLOOD SPECIMENOrdering Facility: [facility] Address: [address] [place] [address] Performed By: #### 5 8410-2 ####[facility] [id number] [place] [id number] [place] CNOVon 09-18-2024 CNOV [address] [facility] Comprehensive metabolic 2000 panelon 09-18-2024 Albumin [Mass/Vol] 3.6 g/dL Low 3.9-4.9 [facility] Comment on above: Order Comment: Speci men Type: BLOOD SPECIMENOrdering Facility: [facility] Address: [address] [place], [place] [address] Performed By: #### 2 4323-8 ####[facility] [id number] [address] [address] [place] ALP [Catalytic activity/Vol] 92 U/L Normal 34-[address] [facility] Comment on above: Order Comment: Speci men Type: BLOOD SPECIMENOrdering Facility: [facility] Address: [address] [place] [id number] Performed By: #### 2 4323-8 ####[facility]CLIA [id number] [address] [address] [place] ALT [Catalytic activity/Vol] 22 U/L Normal 7-[address] [facility] Comment on above: Order Comment: Speci men Type: BLOOD SPECIMENOrdering Facility: [facility] Address: [address] [place], [place] [address] Performed By: #### 2 4323-8 ####[facility]CLIA [id number] [address], [facility] [place] Anion gap [Moles/Vol] 11 mmol/L Normal 8-15 [facility] Comment on above: Order Comment: Speci men Type: BLOOD SPECIMENOrdering Facility: [facility] Address: [address] [place], [place] [address] Performed By: #### 2 4323-8 ####[facility]CLIA [id number] [address] [place] [address] [place] AST [Catalytic activity/Vol] 20 U/L Normal 13-[address] [facility] Comment on above: Order Comment: Speci men Type: BLOOD SPECIMENOrdering Facility: [facility] Address: [address] [place], [place] [address] Performed By: #### 2 4323-8 ####[facility]CLIA [id number] [address] [place] [address] [place] Bilirubin [Mass/Vol] 0.2 mg/dL Normal 0.2-1.3 [facility] Comment on above: Order Comment: Speci men Type: BLOOD SPECIMENOrdering Facility: [facility] Address: [address] [place], [place] [address] Performed By: #### 2 4323-8 ####[facility]CL[facility] [id number] [address] [address] [place] Calcium [Mass/Vol] 8.9 mg/dL Normal 8.5-10.2 [facility] Comment on above: Order Comment: Speci men Type: BLOOD SPECIMENOrdering Facility: [facility] Address: [address] [place] [address] Performed By: #### 2 4323-8 ####[facility]CLIA [id number] [place] [address] [place] Chloride [Moles/Vol] 103 mmol/L Normal 98-107 [facility] Comment on above: Order Comment: Speci men Type: BLOOD SPECIMENOrdering Facility: [facility] Address: [address] [place] [address] Performed By: #### 2 4323-8 ####[facility]CLIA [id number] [place] [address] [place] CO2 [Moles/Vol] 24 mmol/L Normal 22-[address] [facility] Comment on above: Order Comment: Speci men Type: BLOOD SPECIMENOrdering Facility: [facility] Address: [address] [place] [address] Performed By: #### 2 4323-8 ####[facility]CLIA [id number] [place] [address] [place] Creatinine [Mass/Vol] 0.69 mg/dL Normal 0.58-0.96 [facility] Comment on above: Order Comment: Speci men Type: BLOOD SPECIMENOrdering Facility: [facility] Address: [address] [place], [place] [address] Performed By: #### 2 4323-8 ####[facility]CLIA [id number] [place] [address] [place] eGFRcr SerPlBld CKD-EPI 2020 108 mL/min/1.73m??? Normal >=[address] [facility] Comment on above: Order Comment: Speci men Type: BLOOD SPECIMENOrdering Facility: [facility] Address: [address] [place] [address] Result Comment: Tsering mated Glomerular Filtration Rate [...] actual GFR. Performed By: #### 2 4323-8 ####[facility]CLIA [id number] [place] [address] [place] Glucose [Mass/Vol] 92 mg/dL Normal 74-99 [facility] Comment on above: Order Comment: Speci men Type: BLOOD SPECIMENOrdering Facility: [facility] Address: [address] [place] [address] Result Comment: The [place] [employer] (ADA) provides guidance for cutoff [...] Standards of Medical Care in Diabetes 2016, [place] [employer]. Diabetes Care. 2016.39(Suppl 1). Performed By: #### 2 4323-8 ####[facility]CLIA [id number] [place] [address] [place] Potassium [Moles/Vol] 4.2 mmol/L Normal 3.7-5.1 [facility] Comment on above: Order Comment: Speci men Type: BLOOD SPECIMENOrdering Facility: [facility] Address: [address] [place] [address] Performed By: #### 2 4323-8 ####[facility]CLIA [id number] [place] [address] [place] Protein [Mass/Vol] 6.5 g/dL Normal 6.3-8.0 [facility] Comment on above: Order Comment: Speci men Type: BLOOD SPECIMENOrdering Facility: [facility] Address: [address] [place] [address] Performed By: #### 2 4323-8 ####[facility] [id number] [place] [address] [place] Sodium [Moles/Vol] 138 mmol/L Normal 136-144 [facility] Comment on above: Order Comment: Speci men Type: BLOOD SPECIMENOrdering Facility: [facility] Address: [address] [place] [address] Performed By: #### 2 4323-8 ####[facility] [id number] [place] [address] [place] Urea nitrogen [Mass/Vol] 19 mg/dL Normal 7-[address] [facility] Comment on above: Order Comment: Speci men Type: BLOOD SPECIMENOrdering Facility: [facility] Address: [address] [place] [address] Performed By: #### 2 4323-8 ####[facility] [id number] [place] [address] [place] ECG COMPLETEon 09-18-2024 ECG COMPLETE Normal [facility] XR CHEST 2V FRONTAL/LATon XR CHEST 2V FRONTAL/LAT Normal [facility] CNPNon 09-12-2024 CNPN Telephone ([facility]) -------- PAUL DAVENPORT ([id number]) 1975 F Date Time Provider Department 09/12/24 GHADA CONNER [facility] During your visit today, we recorded the following information about you: Ghada Conner RN 09/12/2024 2:19 PM Signed [facility] received a referral from Frances Min CNP to schedule with the clinic. The clinic reached out to the patient. Patient states that she may be moving to [facility]. Not sure is she will be getting different insurance. Will call the [facility] back once she knows plans. Allergies As of Date: 09/12/2024 Noted Allergy Reaction DUST 01/27/2009 Comments: extreme coughing, dry hives METFORMIN 04/09/2023 14 - Other: See Comments Date Reviewed: 09/09/2024 Reviewed by: Susana Harden RN - Fully Assessed Reason for Visit: Orders [681] ak [facility] appt contact [Other] Prescriptions as of 09/12/2024 [...] M25.562, G*04/26/2022 Decreased pedal pulses [R09.89] 04/26/2022 [facility] inst (more content not included)... [facility] Doreen 09-11-2024 BEAU Telephone ([facility] ) -------- PAUL DAVENPORT ([id number]) 1975 F Date Time Provider Department 09/11/24 MONIQUE CA During your visit today, we [...] is asking if she can get a nurse leader referral to work with her for her diet? Or if you want to see her sooner than the 6 week maxwell to discuss diet and exercise regimen? Lilly Gutierrez, Frances Trejo, AYAAN.HEAVY DUTY MECHANIC 09/11/2024 4:30 PM Addendum Chart reviewed, I see that she just discharged yesterday from [facility] s/p AVR, myocardial bridge unfoofing, and closure of PFO on 09/04/[address] Damon. She was recommended follow up with PCP in 1 week and body builder in 4-6 weeks. Ms. Davenport was offered an appointment with a [facility] Tissue Packer. She declined and wishes to follow up with their local body builder. Looks like she may have been following with Dr. Ca in [place]. I dont see a follow up visit [...] be seen sooner, she can call the [facility] Tissue Packer who offered her a sooner post op appt [phone] Thanks! Mariza Lilly Gutierrez LPN 09/11/2024 4:43 PM Signed Left message for Paul Davenport to call [facility] for update and recommendations. [facility] phone number provided. LASHON Mora Jessica, LPN 09/11/2024 5:01 PM Signed I spoke to Paul Davenport and informed them of Frances's response and recommendations. Patient voiced understanding and confirmed taking Lasix at 20 mg twice daily. Patient transferred to clerical to schedule hospital follow up appointment with . Patient states she does not have a ride to main [place] so declined taking phone number. LASHON Mora [...] Left message for Paul Davenport to call [facility] for update and recommendations. [facility] phone number provided. LASHON Mora Taylor, LPN [...] her today or tomorrow? Noemi Oconnell [facility] Allergies As of Date: 09/11/2024 Noted Allergy Reaction DUST 01/27/2009 Comments: extreme coughing, dry hives METFORMIN 04/09/2023 14 - Other: See Comments Date Reviewed: 09/09/2024 Reviewed by: Susana Harden RN - Fully Assessed Reason for Visit: Patient Update [1234] Primary Visit Diagnosis:Diastolic heart failure, unspecified HF chronicity (HCC) [I50.30] Order(s):CONSULT TO CHRONIC CARE [2282460] Order #: [id number]: 1 Prescriptions as of 09/15/2024 - ARIPiprazole [...] not included)... Normal [facility] CNPTOUTREACHon 09-11-2024 CNPTOUTREACH Normal [facility] CASE MANAGEMon 09-10-2024 CASE MANAGEM Normal [facility] CASE MANAGEM Normal [facility] CBC panel Auto (Bld)on 09-10 Erythrocyte distribution width (RBC) [Ratio] 15.1 % High 11.5-15.[address] [facility] Comment on above: Order Comment: Ulises men Type: BLOOD SPECIMENOrdering Facility: [facility] Address: [address] [place] [address] Performed By: #### 5 8410-2 ####[facility] LABCLIA [id number] [place] [address] [place] Hematocrit (Bld) [Volume fraction] 28.4 % Low 36.0-46.[address] [facility] Comment on above: Order Comment: Speci men Type: BLOOD SPECIMENOrdering Facility: [facility] Address: [address] [place] [address] Performed By: #### 5 8410-2 ####[facility]CLIA [id number] [place] [address] [place] Hemoglobin (Bld) [Mass/Vol] 9.0 g/dL Low 11.5-15.[address] [facility] Comment on above: Order Comment: Speci men Type: BLOOD SPECIMENOrdering Facility: [facility] Address: [address] [place] [address] Performed By: #### 5 8410-2 ####[facility]CLIA [id number] [place] [address] [place] MCH (RBC) [Entitic mass] 29.5 pg Normal 26.0-34.[address] [facility] Comment on above: Order Comment: Speci men Type: BLOOD SPECIMENOrdering Facility: [facility] Address: [address] [place] [address] Performed By: #### 5 8410-2 ####[facility]CLIA [id number] [place] [address] [place] MCHC (RBC) [Mass/Vol] 31.7 g/dL Normal 30.5-36.0 [facility] Comment on above: Order Comment: Speci men Type: BLOOD SPECIMENOrdering Facility: [facility] Address: [address] [place] [address] Performed By: #### 5 8410-2 ####[facility]CLIA [id number] [place] [address] [place] MCV (RBC) [Entitic vol] 93.1 fL Normal 80.0-100.[address] [facility] Comment on above: Order Comment: Speci men Type: BLOOD SPECIMENOrdering Facility: [facility] Address: [address] [place] [address] Performed By: #### 5 8410-2 ####[facility]CLIA [id number] [address] [address] [place] Nucleated RBC (Bld) [#/Vol] 0.23 10*3/uL High <0.[address] [facility] Comment on above: Order Comment: Speci men Type: BLOOD SPECIMENOrdering Facility: [facility] Address: [address] [place] [address] Performed By: #### 5 8410-2 ####[facility]IA [id number] [place] [address] [place] Platelet mean volume (Bld) [Entitic vol] 9.6 fL Normal 9.0-12.[address] [facility] Comment on above: Order Comment: Speci men Type: BLOOD SPECIMENOrdering Facility: [facility] Address: [address] [place] [address] Performed By: #### 5 8410-2 ####[facility] [id number] [place] [address] [place] Platelets (Bld) [#/Vol] 425 10*3/uL High 150-[address] [facility] Comment on above: Order Comment: Speci men Type: BLOOD SPECIMENOrdering Facility: [facility] Address: [address] [place] [address] Performed By: #### 5 8410-2 ####[facility] [id number] [place] [address] [place] RBC (Bld) [#/Vol] 3.05 10*6/uL Low 3.90-5.20 [facility] Comment on above: Order Comment: Speci men Type: BLOOD SPECIMENOrdering Facility: [facility] Address: [address] [place] [address] Performed By: #### 5 8410-2 ####[facility]IA [id number] [place] [address] [place] WBC (Bld) [#/Vol] 14.08 10*3/uL High 3.70-11.00 [facility] Comment on above: Order Comment: Speci men Type: BLOOD SPECIMENOrdering Facility: [facility] Address: [address] [place] [address] Performed By: #### 5 8410-2 ####[facility] LABCLIA [id number] [place] [address] [place] Comprehensive metabolic 2000 panelon 09-10-2024 Albumin [Mass/Vol] 3.6 g/dL Low 3.9-4.9 [facility] Comment on above: Order Comment: Speci men Type: BLOOD SPECIMENOrdering Facility: [facility] Address: [address] [place] [address] Performed By: #### 2 4323-8 ####[facility] LABCLIA [id number] [place] [address] [place] ALP [Catalytic activity/Vol] 104 U/L Normal 34-[address] [facility] Comment on above: Order Comment: Speci men Type: BLOOD SPECIMENOrdering Facility: [facility] Address: [address] [place] [address] Performed By: #### 2 4323-8 ####[facility] LABCLIA [id number] [place] [address] [place] ALT [Catalytic activity/Vol] 25 U/L Normal 7-[address] [facility] Comment on above: Order Comment: Speci men Type: BLOOD SPECIMENOrdering Facility: [facility] Address: [address] [place] [address] Performed By: #### 2 4323-8 ####[facility] LABCLIA [id number] [place] [address] [place] Anion gap [Moles/Vol] 13 mmol/L Normal 8-15 [facility] Comment on above: Order Comment: Speci men Type: BLOOD SPECIMENOrdering Facility: [facility] Address: [address] [place] [address] [place] [address] Performed By: #### 2 4323-8 ####[facility] LABCLIA [id number] [address] [address] [place] AST [Catalytic activity/Vol] 21 U/L Normal 13-[address] [facility] Comment on above: Order Comment: Speci men Type: BLOOD SPECIMENOrdering Facility: [facility] Address: [address] [place] [address] Performed By: #### 2 4323-8 ####[facility] LABCLIA [id number] [address] [address] [place] Bilirubin [Mass/Vol] 0.3 mg/dL Normal 0.2-1.3 [facility] Comment on above: Order Comment: Speci men Type: BLOOD SPECIMENOrdering Facility: [facility] Address: [address] [place] [address] Performed By: #### 2 4323-8 ####[facility] LABCLIA [id number] [address] [address] [place] Calcium [Mass/Vol] 8.9 mg/dL Normal 8.5-10.2 [facility] Comment on above: Order Comment: Speci men Type: BLOOD SPECIMENOrdering Facility: [facility] Address: [address] [place] [address] Performed By: #### 2 4323-8 ####[facility] LABCLIA [id number] [address] [address] [place] Chloride [Moles/Vol] 92 mmol/L Low 98-107 [facility] Comment on above: Order Comment: Speci men Type: BLOOD SPECIMENOrdering Facility: [facility] Address: [address] [place], [place] [address] Performed By: #### 2 4323-8 ####[facility] LABCLIA [id number] [address] [address] [place] CO2 [Moles/Vol] 29 mmol/L Normal 22-[address] [facility] Comment on above: Order Comment: Speci men Type: BLOOD SPECIMENOrdering Facility: [facility] Address: [address] [place] [address] Performed By: #### 2 4323-8 ####[facility] LABCLIA [id number] [place] [id number] [place] Creatinine [Mass/Vol] 0.69 mg/dL Normal 0.58-0.96 [facility] Comment on above: Order Comment: Speci men Type: BLOOD SPECIMENOrdering Facility: [facility] Address: [address] [place] [address] Performed By: #### 2 4323-8 ####[facility] LABIA [id number] [place] [address] [place] eGFRcr SerPlBld CKD-EPI 2020 108 mL/min/1.73m??? Normal >=[address] [facility] Comment on above: Order Comment: Speci men Type: BLOOD SPECIMENOrdering Facility: [facility] Address: [address] [place] [address] Result Comment: Tsering mated Glomerular Filtration Rate [...] actual GFR. Performed By: #### 2 4323-8 ####[facility] LABCLIA [id number] [place] [id number] [place] Glucose [Mass/Vol] 91 mg/dL Normal 74-99 [facility] Comment on above: Order Comment: Speci men Type: BLOOD SPECIMENOrdering Facility: [facility] Address: [address] [place] [address] Result Comment: The [place] Diabetes Association (ADA) provides guidance for cutoff [...] Standards of Medical Care in Diabetes 2016, [place] [employer]. Diabetes Care. 2016.39(Suppl 1). Performed By: #### 2 4323-8 ####[facility] LABCLIA [id number] [place] [address] [place] Potassium [Moles/Vol] 3.7 mmol/L Normal 3.7-5.1 [facility] Comment on above: Order Comment: Speci men Type: BLOOD SPECIMENOrdering Facility: [facility] Address: [address] [place] [address] Performed By: #### 2 4323-8 ####[facility] LABCLIA [id number] [place] [address] [place] Protein [Mass/Vol] 6.7 g/dL Normal 6.3-8.0 [facility] Comment on above: Order Comment: Speci men Type: BLOOD SPECIMENOrdering Facility: [facility] Address: [address] [place] [address] Performed By: #### 2 4323-8 ####[facility] LABCLIA [id number] [place] [id number] [place] Sodium [Moles/Vol] 134 mmol/L Low 136-144 [facility] Comment on above: Order Comment: Speci men Type: BLOOD SPECIMENOrdering Facility: [facility] Address: [address] [place] [address] Performed By: #### 2 4323-8 ####[facility] LABCLIA [id number] [place] [id number] [place] Urea nitrogen [Mass/Vol] 19 mg/dL Normal 7-[address] [facility] Comment on above: Order Comment: Speci men Type: BLOOD SPECIMENOrdering Facility: [facility] Address: [address] [place] [address] Performed By: #### 2 4323-8 ####[facility] LABIA [id number] [address], [place] [address] [place] CASE MANAGEMon 09-09-2024 CASE MANAGEM Normal [facility] CBC panel Auto (Bld)on 09-09 Erythrocyte distribution width (RBC) [Ratio] 14.3 % Normal 11.5-15.[address] [facility] Comment on above: Order Comment: Speci men Type: BLOOD SPECIMENOrdering Facility: [facility] Address: [address] [place] [address] Performed By: #### 5 8410-2 ####[facility] LABIA [id number] [place] [address] [place] Hematocrit (Bld) [Volume fraction] 26.9 % Low 36.0-46.[address] [facility] Comment on above: Order Comment: Speci men Type: BLOOD SPECIMENOrdering Facility: [facility] Address: [address] [place] [address] Performed By: #### 5 8410-2 ####[facility] LABCLIA [id number] [address], [place] [address] [place] Hemoglobin (Bld) [Mass/Vol] 9.0 g/dL Low 11.5-15.[address] [facility] Comment on above: Order Comment: Speci men Type: BLOOD SPECIMENOrdering Facility: [facility] Address: [address] [place] [address] Performed By: #### 5 8410-2 ####[facility] LABCLIA [id number] [address] [place] [address] [place] MCH (RBC) [Entitic mass] 29.6 pg Normal 26.0-34.[address] [facility] Comment on above: Order Comment: Speci men Type: BLOOD SPECIMENOrdering Facility: [facility] Address: [address] [place] [address] Performed By: #### 5 8410-2 ####[facility] LABIA [id number] [place] [address] [place] MCHC (RBC) [Mass/Vol] 33.5 g/dL Normal 30.5-36.0 [facility] Comment on above: Order Comment: Speci men Type: BLOOD SPECIMENOrdering Facility: [facility] Address: [address] [place] [address] Performed By: #### 5 8410-2 ####[facility] LABIA [id number] [place] [address] [place] MCV (RBC) [Entitic vol] 88.5 fL Normal 80.0-100.[address] [facility] Comment on above: Order Comment: Speci men Type: BLOOD SPECIMENOrdering Facility: [facility] Address: [address] [place] [address] Performed By: #### 5 8410-2 ####[facility] LABIA [id number] [place] [address] [place] Nucleated RBC (Bld) [#/Vol] 0.15 10*3/uL High <0.[address] [facility] Comment on above: Order Comment: Speci men Type: BLOOD SPECIMENOrdering Facility: [facility] Address: [address] [place] [address] Performed By: #### 5 8410-2 ####[facility] LABIA [id number] [place] [address] [place] Platelet mean volume (Bld) [Entitic vol] 9.5 fL Normal 9.0-12.[address] [facility] Comment on above: Order Comment: Speci men Type: BLOOD SPECIMENOrdering Facility: [facility] Address: [address] [place] [address] Performed By: #### 5 8410-2 ####[facility] LABIA [id number] [place] [id number] [place] Platelets (Bld) [#/Vol] 362 10*3/uL Normal 150-[address] [facility] Comment on above: Order Comment: Speci men Type: BLOOD SPECIMENOrdering Facility: [facility] Address: [address] [place] [address] Performed By: #### 5 8410-2 ####[facility] LABIA [id number] [place] [address] [place] RBC (Bld) [#/Vol] 3.04 10*6/uL Low 3.90-5.20 [facility] Comment on above: Order Comment: Speci men Type: BLOOD SPECIMENOrdering Facility: [facility] Address: [address] [place] [address] Performed By: #### 5 8410-2 ####[facility] LABIA [id number] [place] [address] [place] WBC (Bld) [#/Vol] 11.98 10*3/uL High 3.70-11.00 [facility] Comment on above: Order Comment: Speci men Type: BLOOD SPECIMENOrdering Facility: [facility] Address: [address] [place] [address] Performed By: #### 5 8410-2 ####[facility] LABIA [id number] [place] [id number] [place] CNDSon 09-09-2024 CNDS [address] [facility] Comprehensive metabolic 2000 panelon 09-09-2024 Albumin [Mass/Vol] 3.4 g/dL Low 3.9-4.9 [facility] Comment on above: Order Comment: Speci men Type: BLOOD SPECIMENOrdering Facility: [facility] Address: [address] [place] [id number] Performed By: #### 2 4323-8 ####[facility] LABCLIA [id number] [place] [id number] [place] ALP [Catalytic activity/Vol] 114 U/L Normal 34-[address] [facility] Comment on above: Order Comment: Speci men Type: BLOOD SPECIMENOrdering Facility: [facility] Address: [address] [place] [address] Performed By: #### 2 4323-8 ####[facility] LABCLIA [id number] [place] [address] [place] ALT [Catalytic activity/Vol] 25 U/L Normal 7-[address] [facility] Comment on above: Order Comment: Speci men Type: BLOOD SPECIMENOrdering Facility: [facility] Address: [address] [place] [address] Performed By: #### 2 4323-8 ####[facility] LABCLIA [id number] [place] [id number] [place] Anion gap [Moles/Vol] 12 mmol/L Normal 8-15 [facility] Comment on above: Order Comment: Speci men Type: BLOOD SPECIMENOrdering Facility: [facility] Address: [address] [place] [address] Performed By: #### 2 4323-8 ####[facility] LABCLIA [id number] [place] [id number] [place] AST [Catalytic activity/Vol] 30 U/L Normal 13-[address] [facility] Comment on above: Order Comment: Speci men Type: BLOOD SPECIMENOrdering Facility: [facility] Address: [address] [place] [address] Performed By: #### 2 4323-8 ####[facility] LABCLIA [id number] [place] [id number] [place] Bilirubin [Mass/Vol] 0.3 mg/dL Normal 0.2-1.3 [facility] Comment on above: Order Comment: Speci men Type: BLOOD SPECIMENOrdering Facility: [facility] Address: [address] [place] [address] Performed By: #### 2 4323-8 ####[facility] LABCLIA [id number] [facility] [place] [address] [place] Calcium [Mass/Vol] 8.9 mg/dL Normal 8.5-10.2 [facility] Comment on above: Order Comment: Speci men Type: BLOOD SPECIMENOrdering Facility: [facility] Address: [address] [place] [address] Performed By: #### 2 4323-8 ####[facility] LABCLIA [id number] [facility] [place] [address] [place] Chloride [Moles/Vol] 92 mmol/L Low 98-107 [facility] Comment on above: Order Comment: Speci men Type: BLOOD SPECIMENOrdering Facility: [facility] Address: [address] [place] [address] Performed By: #### 2 4323-8 ####[facility] LABCLIA [id number] [facility] [place] [address] [place] CO2 [Moles/Vol] 31 mmol/L High 22-[address] [facility] Comment on above: Order Comment: Speci men Type: BLOOD SPECIMENOrdering Facility: [facility] Address: [address] [place] [address] Performed By: #### 2 4323-8 ####[facility] LABCLIA [id number] [facility] [place] [id number] [place] Creatinine [Mass/Vol] 0.57 mg/dL Low 0.58-0.96 [facility] Comment on above: Order Comment: Speci men Type: BLOOD SPECIMENOrdering Facility: [facility] Address: [address] [place] [address] Performed By: #### 2 4323-8 ####[facility] LABCLIA [id number] [place] [address] [place] eGFRcr SerPlBld CKD-EPI 2020 113 mL/min/1.73m??? Normal >=[address] [facility] Comment on above: Order Comment: Ulises walsh Type: BLOOD SPECIMENOrdering Facility: [facility] Address: [address] [place] [address] Result Comment: Tsering mated Glomerular Filtration Rate [...] actual GFR. Performed By: #### 2 4323-8 ####[facility] LABIA [id number] [place] [address] [place] Glucose [Mass/Vol] 99 mg/dL Normal 74-99 [facility] Comment on above: Order Comment: Ulises walsh Type: BLOOD SPECIMENOrdering Facility: [facility] Address: [address] [place] [address] Result Comment: The [place] [employer] Association (ADA) provides guidance for cutoff [...] Standards of Medical Care in Diabetes 2016, [place] [employer]. Diabetes Care. 2016.39(Suppl 1). Performed By: #### 2 4323-8 ####[facility] LABCLIA [id number] [address] [place] [address] [place] Potassium [Moles/Vol] 3.5 mmol/L Low 3.7-5.1 [facility] Comment on above: Order Comment: Speci men Type: BLOOD SPECIMENOrdering Facility: [facility] Address: [address] [place] [address] Performed By: #### 2 4323-8 ####[facility] LABCLIA [id number] [address], [place] [address] [place] Protein [Mass/Vol] 6.6 g/dL Normal 6.3-8.0 [facility] Comment on above: Order Comment: Speci men Type: BLOOD SPECIMENOrdering Facility: [facility] Address: [address] [place] [address] Performed By: #### 2 4323-8 ####[facility] LABCLIA [id number] [place] [address] [place] Sodium [Moles/Vol] 135 mmol/L Low 136-144 [facility] Comment on above: Order Comment: Speci men Type: BLOOD SPECIMENOrdering Facility: [facility] Address: [address] [place] [address] Performed By: #### 2 4323-8 ####[facility] LABIA [id number] [place] [id number] [place] Urea nitrogen [Mass/Vol] 18 mg/dL Normal 7-[address] [facility] Comment on above: Order Comment: Speci men Type: BLOOD SPECIMENOrdering Facility: [facility] Address: [address] [place], [place] [address] Performed By: #### 2 4323-8 ####[facility] LABCLIA [id number] [place] [id number] [place] ECHO LIMITEDon 09-09-2024 ECHO LIMITED Normal [facility] HCG Preg Ur Qlon 09-09-2024 HCG ( test) Ql (U) Negative Normal Negative [facility] Comment on above: Order Comment: Speci men Type: URINE SPECIMENOrdering Facility: [facility] Address: [address] [place] [address] Result Comment: This test is intended to aid in the early detection of . Very dilute urine samples, as indicated by a low specific gravity, may not contain national sales representative levels of hCG. This test detects [...] for . Performed By: #### 2 106-3 ####[facility] LABCLIA [id number] [place] [address] [place] ALLIED HEALTHon 09-08-2024 ALLIED HEALTH Normal [facility] CASE MANAGEMon 09-08-2024 CASE MANAGEM Normal [facility] CBC panel Auto (Bld)on 09-08 Erythrocyte distribution width (RBC) [Ratio] 14.3 % Normal 11.5-15.[address] [facility] Comment on above: Order Comment: Speci men Type: BLOOD SPECIMENOrdering Facility: [facility] Address: [address] [place] [address] Performed By: #### 5 8410-2 ####[facility] LABIA [id number] [place] [id number] [place] [facility] Hematocrit (Bld) [Volume fraction] 26.4 % Low 36.0-46.[address] [facility] Comment on above: Order Comment: Speci men Type: BLOOD SPECIMENOrdering Facility: [facility] Address: [address] [place] [address] Performed By: #### 5 8410-2 ####[facility] LABCLIA [id number] [place] [address] [place] Hemoglobin (Bld) [Mass/Vol] 8.4 g/dL Low 11.5-15.[address] [facility] Comment on above: Order Comment: Speci men Type: BLOOD SPECIMENOrdering Facility: [facility] Address: [address] [place] [address] Performed By: #### 5 8410-2 ####[facility] LABIA [id number] [place] [address] [place] MCH (RBC) [Entitic mass] 29.6 pg Normal 26.0-34.[address] [facility] Comment on above: Order Comment: Speci men Type: BLOOD SPECIMENOrdering Facility: [facility] Address: [address] [place] [address] Performed By: #### 5 8410-2 ####[facility] LABIA [id number] [address] [place] MCHC (RBC) [Mass/Vol] 31.8 g/dL Normal 30.5-36.0 [facility] Comment on above: Order Comment: Speci men Type: BLOOD SPECIMENOrdering Facility: [facility] Address: [address] [place] [address] Performed By: #### 5 8410-2 ####[facility] [id number] [place] [address] [place] MCV (RBC) [Entitic vol] 93.0 fL Normal 80.0-100.[address] [facility] Comment on above: Order Comment: Speci men Type: BLOOD SPECIMENOrdering Facility: [facility] Address: [address] [place] [address] Performed By: #### 5 8410-2 ####[facility] LABIA [id number] [place] [address] [place] Nucleated RBC (Bld) [#/Vol] 0.09 10*3/uL High <0.[address] [facility] Comment on above: Order Comment: Speci men Type: BLOOD SPECIMENOrdering Facility: [facility] Address: [address] [place] [address] Performed By: #### 5 8410-2 ####[facility] LABCLIA [id number] [address] [address] [place] Platelet mean volume (Bld) [Entitic vol] 9.9 fL Normal 9.0-12.[address] [facility] Comment on above: Order Comment: Speci men Type: BLOOD SPECIMENOrdering Facility: [facility] Address: [address] [place] [address] Performed By: #### 5 8410-2 ####[facility] LABIA [id number] [place] [address] [place] Platelets (Bld) [#/Vol] 271 10*3/uL Normal 150-[address] [facility] Comment on above: Order Comment: Speci men Type: BLOOD SPECIMENOrdering Facility: [facility] Address: [address] [place] [address] Performed By: #### 5 8410-2 ####[facility] LABIA [id number] [place] [address] [place] RBC (Bld) [#/Vol] 2.84 10*6/uL Low 3.90-5.20 [facility] Comment on above: Order Comment: Speci men Type: BLOOD SPECIMENOrdering Facility: [facility] Address: [address] [place] [address] Performed By: #### 5 8410-2 ####[facility] LABIA [id number] [address] [address] [place] WBC (Bld) [#/Vol] 12.16 10*3/uL High 3.70-11.00 [facility] Comment on above: Order Comment: Speci men Type: BLOOD SPECIMENOrdering Facility: [facility] Address: [address] [place] [address] Performed By: #### 5 8410-2 ####[facility] LABCLIA [id number] [place] [address] [place] CONSULT PROGon 09-08-2024 CONSULT PROG Normal [facility] metabolic 2000 panelon 09-08-2024 Albumin [Mass/Vol] 3.4 g/dL Low 3.9-4.9 [facility] Comment on above: Order Comment: Speci men Type: BLOOD SPECIMENOrdering Facility: [facility] Address: [address] [place] [address] Performed By: #### 2 4323-8 ####[facility] LABCLIA [id number] [place] [address] [place] ALP [Catalytic activity/Vol] 121 U/L Normal 34-[address] [facility] Comment on above: Order Comment: Speci men Type: BLOOD SPECIMENOrdering Facility: [facility] Address: [address] [place] [address] Performed By: #### 2 4323-8 ####[facility] LABCLIA [id number] [place] [address] [place] ALT [Catalytic activity/Vol] 23 U/L Normal 7-[address] [facility] Comment on above: Order Comment: Speci men Type: BLOOD SPECIMENOrdering Facility: [facility] Address: [address] [place], [place] [address] Performed By: #### 2 4323-8 ####[facility] LABCLIA [id number] [facility] [place] [id number] [place] Anion gap [Moles/Vol] 11 mmol/L Normal 8-15 [facility] Comment on above: Order Comment: Speci men Type: BLOOD SPECIMENOrdering Facility: [facility] Address: [address] [place], [place] [address] Performed By: #### 2 4323-8 ####[facility] LABCLIA [id number] [address] [place] [address] [place] AST [Catalytic activity/Vol] 24 U/L Normal 13-[address] [facility] Comment on above: Order Comment: Speci men Type: BLOOD SPECIMENOrdering Facility: [facility] Address: [address] [place] [address] Performed By: #### 2 4323-8 ####[facility] LABCLIA [id number] [facility] [place] [id number] [place] Bilirubin [Mass/Vol] 0.3 mg/dL Normal 0.2-1.3 [facility] Comment on above: Order Comment: Speci men Type: BLOOD SPECIMENOrdering Facility: [facility] Address: [address] [place] [address] Performed By: #### 2 4323-8 ####[facility] LABCLIA [id number] [place] [address] [place] Calcium [Mass/Vol] 8.6 mg/dL Normal 8.5-10.2 [facility] Comment on above: Order Comment: Speci men Type: BLOOD SPECIMENOrdering Facility: [facility] Address: [address] [place] [address] Performed By: #### 2 4323-8 ####[facility] LABCLIA [id number] [facility] [place] [id number] [place] Chloride [Moles/Vol] 91 mmol/L Low 98-107 [facility] Comment on above: Order Comment: Speci men Type: BLOOD SPECIMENOrdering Facility: [facility] Address: [address] [place] [address] Performed By: #### 2 4323-8 ####[facility] LABCLIA [id number] [facility] [place] [id number] [place] CO2 [Moles/Vol] 29 mmol/L Normal 22-[address] [facility] Comment on above: Order Comment: Speci men Type: BLOOD SPECIMENOrdering Facility: [facility] Address: [address] [place] [address] Performed By: #### 2 4323-8 ####[facility] LABIA [id number] [place] [id number] [place] Creatinine [Mass/Vol] 0.56 mg/dL Low 0.58-0.96 [facility] Comment on above: Order Comment: Speci men Type: BLOOD SPECIMENOrdering Facility: [facility] Address: [address] [place] [address] Performed By: #### 2 4323-8 ####[facility] LABIA [id number] [place] [address] [place] eGFRcr SerPlBld CKD-EPI 2020 113 mL/min/1.73m??? Normal >=[address] [facility] Comment on above: Order Comment: Speci men Type: BLOOD SPECIMENOrdering Facility: [facility] Address: [address] [place] [address] Result Comment: Tsering mated Glomerular Filtration Rate [...] actual GFR. Performed By: #### 2 4323-8 ####[facility] LABIA [id number] [place] [id number] [place] Glucose [Mass/Vol] 125 mg/dL High 74-99 [facility] Comment on above: Order Comment: Speci men Type: BLOOD SPECIMENOrdering Facility: [facility] Address: [address] [place] [address] Result Comment: The [place] [employer] (ADA) provides guidance for cutoff [...] Standards of Medical Care in Diabetes 2016, [place] [employer]. Diabetes Care. 2016.39(Suppl 1). Performed By: #### 2 4323-8 ####[facility] LABCLIA [id number] [address] [address] [place] Potassium [Moles/Vol] 3.8 mmol/L Normal 3.7-5.1 [facility] Comment on above: Order Comment: Speci men Type: BLOOD SPECIMENOrdering Facility: [facility] Address: [address] [place] [address] Performed By: #### 2 4323-8 ####[facility] LABIA [id number] [place] [id number] [place] Protein [Mass/Vol] 6.3 g/dL Normal 6.3-8.0 [facility] Comment on above: Order Comment: Speci men Type: BLOOD SPECIMENOrdering Facility: [facility] Address: [address] [place] [address] Performed By: #### 2 4323-8 ####[facility] LABCLIA [id number] [place] [id number] [place] Sodium [Moles/Vol] 131 mmol/L Low 136-144 [facility] Comment on above: Order Comment: Speci men Type: BLOOD SPECIMENOrdering Facility: [facility] Address: [address] [place] [address] Performed By: #### 2 4323-8 ####[facility] LABCLIA [id number] [address] [address] [place] Urea nitrogen [Mass/Vol] 22 mg/dL High 7-[address] [facility] Comment on above: Order Comment: Speci men Type: BLOOD SPECIMENOrdering Facility: [facility] Address: [address] [place] [address] Performed By: #### 2 4323-8 ####[facility] LABCLIA [id number] [address] [address] [place] NUTRITIONon 09-08-2024 NUTRITION Normal [facility] PT EDon 09-08-2024 PT ED Normal [facility] THERAPY NTon 09-08-2024 THERAPY NT Normal [facility] THERAPY NT Normal [facility] CBC panel Auto (Bld)on 09-07 Erythrocyte distribution width (RBC) [Ratio] 14.3 % Normal 11.5-15.[address] [facility] Comment on above: Order Comment: Speci men Type: BLOOD SPECIMENOrdering Facility: [facility] Address: [address] [place] [address] Performed By: #### 5 8410-2 ####[facility] LABCLIA [id number] [place] [address] [place] Hematocrit (Bld) [Volume fraction] 26.7 % Low 36.0-46.[address] [facility] Comment on above: Order Comment: Speci men Type: BLOOD SPECIMENOrdering Facility: [facility] Address: [address] [place] [address] Performed By: #### 5 8410-2 ####[facility] LABCLIA [id number] [place] [address] [place] Hemoglobin (Bld) [Mass/Vol] 8.7 g/dL Low 11.5-15.[address] [facility] Comment on above: Order Comment: Speci men Type: BLOOD SPECIMENOrdering Facility: [facility] Address: [address] [place] [address] Performed By: #### 5 8410-2 ####[facility] LABCLIA [id number] [place] [address] [place] MCH (RBC) [Entitic mass] 29.6 pg Normal 26.0-34.[address] [facility] Comment on above: Order Comment: Speci men Type: BLOOD SPECIMENOrdering Facility: [facility] Address: [address] [place] [address] Performed By: #### 5 8410-2 ####[facility] LABIA [id number] [place] [address] [place] MCHC (RBC) [Mass/Vol] 32.6 g/dL Normal 30.5-36.0 [facility] Comment on above: Order Comment: Speci men Type: BLOOD SPECIMENOrdering Facility: [facility] Address: [address] [place] [address] Performed By: #### 5 8410-2 ####[facility] LABIA [id number] [place] [address] [place] MCV (RBC) [Entitic vol] 90.8 fL Normal 80.0-100.[address] [facility] Comment on above: Order Comment: Speci men Type: BLOOD SPECIMENOrdering Facility: [facility] Address: [address] [place] [address] Performed By: #### 5 8410-2 ####[facility] LABIA [id number] [place] [address] [place] Nucleated RBC (Bld) [#/Vol] 0.07 10*3/uL High <0.[address] [facility] Comment on above: Order Comment: Speci men Type: BLOOD SPECIMENOrdering Facility: [facility] Address: [address] [place] [address] Performed By: #### 5 8410-2 ####[facility] LABIA [id number] [place] [address] [place] Platelet mean volume (Bld) [Entitic vol] 10.0 fL Normal 9.0-12.[address] [facility] Comment on above: Order Comment: Speci men Type: BLOOD SPECIMENOrdering Facility: [facility] Address: [address] [place] [address] Performed By: #### 5 8410-2 ####[facility] LABIA [id number] [address] [address] [place] Platelets (Bld) [#/Vol] 233 10*3/uL Normal 150-[address] [facility] Comment on above: Order Comment: Speci men Type: BLOOD SPECIMENOrdering Facility: [facility] Address: [address] [place] [address] Performed By: #### 5 8410-2 ####[facility] LABIA [id number] [place] [address] [place] RBC (Bld) [#/Vol] 2.94 10*6/uL Low 3.90-5.20 [facility] Comment on above: Order Comment: Speci men Type: BLOOD SPECIMENOrdering Facility: [facility] Address: [address] [place] [address] Performed By: #### 5 8410-2 ####[facility] LABIA [id number] [place] [address] [place] WBC (Bld) [#/Vol] 13.49 10*3/uL High 3.70-11.00 [facility] Comment on above: Order Comment: Speci men Type: BLOOD SPECIMENOrdering Facility: [facility] Address: [address] [place] [address] Performed By: #### 5 8410-2 ####[facility] LABIA [id number] [place] [id number] [place] [facility] [place] Comprehensive metabolic 2000 panelon 09-07-2024 Albumin [Mass/Vol] 3.3 g/dL Low 3.9-4.9 [facility] Comment on above: Order Comment: Speci men Type: BLOOD SPECIMENOrdering Facility: [facility] Address: [address] [place] [address] Performed By: #### 2 4323-8 ####[facility] LABCLIA [id number] [facility] [address] [place] [address] [place] ALP [Catalytic activity/Vol] 144 U/L High 34-[address] [facility] Comment on above: Order Comment: Speci men Type: BLOOD SPECIMENOrdering Facility: [facility] Address: [address] [place] [address] Performed By: #### 2 4323-8 ####[facility] LABCLIA [id number] [place] [id number] [place] ALT [Catalytic activity/Vol] 25 U/L Normal 7-[address] [facility] Comment on above: Order Comment: Speci men Type: BLOOD SPECIMENOrdering Facility: [facility] Address: [address] [place] [address] Performed By: #### 2 4323-8 ####[facility] LABCLIA [id number] [place] [id number] [place] Anion gap [Moles/Vol] 10 mmol/L Normal 8-15 [facility] Comment on above: Order Comment: Speci men Type: BLOOD SPECIMENOrdering Facility: [facility] Address: [address] [place] [address] Performed By: #### 2 4323-8 ####[facility] LABCLIA [id number] [place] [id number] [place] AST [Catalytic activity/Vol] 31 U/L Normal 13-[address] [facility] Comment on above: Order Comment: Speci men Type: BLOOD SPECIMENOrdering Facility: [facility] Address: [address] [place] [address] Performed By: #### 2 4323-8 ####[facility] LABCLIA [id number] [address] [address] [place] Bilirubin [Mass/Vol] 0.4 mg/dL Normal 0.2-1.3 [facility] Comment on above: Order Comment: Speci men Type: BLOOD SPECIMENOrdering Facility: [facility] Address: [address] [place] [address] Performed By: #### 2 4323-8 ####[facility] LABCLIA [id number] [facility] [address] [place] [address] [place] Calcium [Mass/Vol] 8.6 mg/dL Normal 8.5-10.2 [facility] Comment on above: Order Comment: Speci men Type: BLOOD SPECIMENOrdering Facility: [facility] Address: [address] [place] [address] Performed By: #### 2 4323-8 ####[facility] LABCLIA [id number] [facility] [address] [place] [address] [place] Chloride [Moles/Vol] 92 mmol/L Low 98-107 [facility] Comment on above: Order Comment: Speci men Type: BLOOD SPECIMENOrdering Facility: [facility] Address: [address] [place] [address] Performed By: #### 2 4323-8 ####[facility] LABCLIA [id number] [place] [id number] [place] CO2 [Moles/Vol] 27 mmol/L Normal 22-[address] [facility] Comment on above: Order Comment: Speci men Type: BLOOD SPECIMENOrdering Facility: [facility] Address: [address] [place], [place] [address] Performed By: #### 2 4323-8 ####[facility] LABCLIA [id number] [facility] [place] [id number] [place] Creatinine [Mass/Vol] 0.72 mg/dL Normal 0.58-0.96 [facility] Comment on above: Order Comment: Speci men Type: BLOOD SPECIMENOrdering Facility: [facility] Address: [address] [place], [place] [address] Performed By: #### 2 4323-8 ####[facility] LABCLIA [id number] [address] [address] [place] eGFRcr SerPlBld CKD-EPI 2020 104 mL/min/1.73m??? Normal >=[address] [facility] Comment on above: Order Comment: Ulises walsh Type: BLOOD SPECIMENOrdering Facility: [facility] Address: [address] [place] [address] Result Comment: Tsering mated Glomerular Filtration Rate [...] actual GFR. Performed By: #### 2 4323-8 ####[facility] LABIA [id number] [place] [id number] [place] Glucose [Mass/Vol] 83 mg/dL Normal 74-99 [facility] Comment on above: Order Comment: Ulises walsh Type: BLOOD SPECIMENOrdering Facility: [facility] Address: [address] [place] [address] Result Comment: The [place] [employer] (ADA) provides guidance for cutoff [...] Standards of Medical Care in Diabetes 2016, [place] [employer]. Diabetes Care. 2016.39(Suppl 1). Performed By: #### 2 4323-8 ####[facility] LABCLIA [id number] [address] [address] [place] Potassium [Moles/Vol] 4.1 mmol/L Normal 3.7-5.1 [facility] Comment on above: Order Comment: Speci men Type: BLOOD SPECIMENOrdering Facility: [facility] Address: [address] [place] [address] Performed By: #### 2 4323-8 ####[facility] LABCLIA [id number] [place] [address] [place] Protein [Mass/Vol] 6.3 g/dL Normal 6.3-8.0 [facility] Comment on above: Order Comment: Speci men Type: BLOOD SPECIMENOrdering Facility: [facility] Address: [address] [place] [address] Performed By: #### 2 4323-8 ####[facility] LABCLIA [id number] [place] [address] [place] Sodium [Moles/Vol] 129 mmol/L Low 136-144 [facility] Comment on above: Order Comment: Speci men Type: BLOOD SPECIMENOrdering Facility: [facility] Address: [address] [place] [address] Performed By: #### 2 4323-8 ####[facility] LABCLIA [id number] [place] [address] [place] Urea nitrogen [Mass/Vol] 17 mg/dL Normal 7-[address] [facility] Comment on above: Order Comment: Speci men Type: BLOOD SPECIMENOrdering Facility: [facility] Address: [address] [place] [address] Performed By: #### 2 4323-8 ####[facility] LABCLIA [id number] [place] [id number] [place] NURSING PROGon 09-07-2024 NURSING PROG Normal [facility] THERAPY NTon 09-07-2024 THERAPY NT Normal [facility] XR CHEST 1V FRONTAL PORTon 0 09-07-2024 XR CHEST 1V FRONTAL PORT Normal [facility] ARTERIAL BLOOD GASESon 09-06 Base excess Calc (Bld) [Moles/Vol] 3 mmol/L High 0-[address] [facility] Comment on above: Order Comment: Speci men Type: ARTERIAL BLOOD SPECIMENOrdering Facility: [facility] Address: [address] [place] [address] Performed By: #### A LLBG ####[facility] LABIA [id number] [place] [address] [place] Body temperature 98.6 [degF] Normal [facility] Comment on above: Order Comment: Speci men Type: ARTERIAL BLOOD SPECIMENOrdering Facility: [facility] Address: [address] [place] [address] Performed By: #### A LLBG ####[facility] LABIA [id number] [place] [address] [place] Calcium.ionized (Bld) [Mass/Vol] 1.10 mmol/L Normal 1.08-1.[address] [facility] Comment on above: Order Comment: Speci men Type: ARTERIAL BLOOD SPECIMENOrdering Facility: [facility] Address: [address] [place] [address] Performed By: #### A LLBG ####[facility] LABIA [id number] [place] [address] [place] Calcium.ionized adjusted to pH 7.4 (BldA) [Moles/Vol] 1.11 mmol/L Normal 1.08-1.[address] [facility] Comment on above: Order Comment: Speci men Type: ARTERIAL BLOOD SPECIMENOrdering Facility: [facility] Address: [address] [place] [address] Performed By: #### A LLBG ####[facility] LABIA [id number] [place] [address] [place] Carboxyhemoglobin (BldA) [Mass fraction] 1.7 % Normal 0.0-2.[address] [facility] Comment on above: Order Comment: Speci men Type: ARTERIAL BLOOD SPECIMENOrdering Facility: [facility] Address: [address] [place] [address] Result Comment: Carb oxyhemoglobin Reference Range for Smokers: 2.0-8.0% Performed By: #### A LLBG ####[facility] LABCLIA [id number] [place] [id number] [place] CO2 (Bld) [Partial pressure] 43 mm Hg Normal 36-[address] [facility] Comment on above: Order Comment: Speci men Type: ARTERIAL BLOOD SPECIMENOrdering Facility: [facility] Address: [address] [place] [address] Performed By: #### A LLBG ####[facility] LABCLIA [id number] [place] [address] [place] Glucose [Mass/Vol] 100 mg/dL Normal 60-105 [facility] Comment on above: Order Comment: Speci men Type: ARTERIAL BLOOD SPECIMENOrdering Facility: [facility] Address: [address] [place] [address] Performed By: #### A LLBG ####[facility] LABCLIA [id number] [place] [address] [place] HCO3 (Bld) [Moles/Vol] 27 mmol/L High 22-26 [facility] Comment on above: Order Comment: Speci men Type: ARTERIAL BLOOD SPECIMENOrdering Facility: [facility] Address: [address] [place] [address] Performed By: #### A LLBG ####[facility] LABCLIA [id number] [place] [address] [place] Hematocrit (Bld) [Volume fraction] 27.5 % Low 36.0-46.[address] [facility] Comment on above: Order Comment: Speci men Type: ARTERIAL BLOOD SPECIMENOrdering Facility: [facility] Address: [address] [place] [address] Performed By: #### A LLBG ####[facility] LABIA [id number] [place] [id number] [place] Hemoglobin (Bld) [Mass/Vol] 8.8 g/dL Low 11.5-15.[address] [facility] Comment on above: Order Comment: Speci men Type: ARTERIAL BLOOD SPECIMENOrdering Facility: [facility] Address: [address] [place] [address] Performed By: #### A LLBG ####[facility] LABIA [id number] [place] [address] [place] Lactate [Moles/Vol] 0.8 mmol/L Normal 0.5-2.2 [facility] Comment on above: Order Comment: Speci men Type: ARTERIAL BLOOD SPECIMENOrdering Facility: [facility] Address: [address] [place] [address] Performed By: #### A LLBG ####[facility] LABIA [id number] [place] [address] [place] Methemoglobin (Bld) [Mass fraction] 1.0 % Normal 0.0-1.[address] [facility] Comment on above: Order Comment: Speci men Type: ARTERIAL BLOOD SPECIMENOrdering Facility: [facility] Address: [address] [place] [address] Performed By: #### A LLBG ####[facility] LABIA [id number] [place] [address] [place] O2 THERAPY NC = Nasal Cannula Normal [facility] Comment on above: Order Comment: Speci men Type: ARTERIAL BLOOD SPECIMENOrdering Facility: [facility] Address: [address] [place] [address] Performed By: #### A LLBG ####[facility] LABIA [id number] [place] [id number] [place] Oxygen (Bld) [Partial pressure] 130 mm Hg High 85-[address] [facility] Comment on above: Order Comment: Speci men Type: ARTERIAL BLOOD SPECIMENOrdering Facility: [facility] Address: [address] [place] [address] Performed By: #### A LLBG ####[facility] LABCLIA [id number] [place] [id number] [place] Oxyhemoglobin (BldA) [Mass fraction] 96 % Normal 95-[address] [facility] Comment on above: Order Comment: Speci men Type: ARTERIAL BLOOD SPECIMENOrdering Facility: [facility] Address: [address] [place] [address] Performed By: #### A LLBG ####[facility] LABIA [id number] [place] [address] [place] pH (Bld) 7.42 [pH] Normal 7.35-7.[address] [facility] Comment on above: Order Comment: Speci men Type: ARTERIAL BLOOD SPECIMENOrdering Facility: [facility] Address: [address] [place] [address] Performed By: #### A LLBG ####[facility] LABCLIA [id number] [place] [address] [place] Potassium [Moles/Vol] 3.7 mmol/L Normal 3.5-5.0 [facility] Comment on above: Order Comment: Speci men Type: ARTERIAL BLOOD SPECIMENOrdering Facility: [facility] Address: [address] [place] [address] Performed By: #### A LLBG ####[facility] LABIA [id number] [place] [id number] [place] Sodium [Moles/Vol] 126 mmol/L Low 136-144 [facility] Comment on above: Order Comment: Speci men Type: ARTERIAL BLOOD SPECIMENOrdering Facility: [facility] Address: [address] [place] [address] Performed By: #### A LLBG ####[facility] LABCLIA [id number] [place] [address] [place] Base excess Calc (Bld) [Moles/Vol] 3 mmol/L High 0-[address] [facility] Comment on above: Order Comment: Speci men Type: ARTERIAL BLOOD SPECIMENOrdering Facility: [facility] Address: [address] [place] [address] Performed By: #### A LLBG ####[facility] LABIA [id number] [place] [address] [place] Calcium.ionized (Bld) [Mass/Vol] 1.09 mmol/L Normal 1.08-1.[address] [facility] Comment on above: Order Comment: Speci men Type: ARTERIAL BLOOD SPECIMENOrdering Facility: [facility] Address: [address] [place] [address] Performed By: #### A LLBG ####[facility] [id number] [place] [address] [place] Calcium.ionized adjusted to pH 7.4 (BldA) [Moles/Vol] 1.13 mmol/L Normal 1.08-1.[address] [facility] Comment on above: Order Comment: Speci men Type: ARTERIAL BLOOD SPECIMENOrdering Facility: [facility] Address: [address] [place] [address] Performed By: #### A LLBG ####[facility] [id number] [place] [address] [place] Carboxyhemoglobin (BldA) [Mass fraction] 2.0 % Normal 0.0-2.[address] [facility] Comment on above: Order Comment: Speci men Type: ARTERIAL BLOOD SPECIMENOrdering Facility: [facility] Address: [address] [place] [address] Result Comment: Carb oxyhemoglobin Reference Range for Smokers: 2.0-8.0% Performed By: #### A LLBG ####[facility] LABIA [id number] [place] [address] [place] CO2 (Bld) [Partial pressure] 38 mm Hg Normal 36-[address] [facility] Comment on above: Order Comment: Speci men Type: ARTERIAL BLOOD SPECIMENOrdering Facility: [facility] Address: [address] [place] [address] Performed By: #### A LLBG ####[facility] LABCLIA [id number] [place] [id number] [place] Glucose [Mass/Vol] 73 mg/dL Normal 60-105 [facility] Comment on above: Order Comment: Speci men Type: ARTERIAL BLOOD SPECIMENOrdering Facility: [facility] Address: [address] [place] [address] Performed By: #### A LLBG ####[facility] LABCLIA [id number] [place] [id number] [place] HCO3 (Bld) [Moles/Vol] 26 mmol/L Normal 22-26 [facility] Comment on above: Order Comment: Speci men Type: ARTERIAL BLOOD SPECIMENOrdering Facility: [facility] Address: [address] [place] [address] Performed By: #### A LLBG ####[facility] LABCLIA [id number] [place] [id number] [place] Hematocrit (Bld) [Volume fraction] 27.9 % Low 36.0-46.[address] [facility] Comment on above: Order Comment: Speci men Type: ARTERIAL BLOOD SPECIMENOrdering Facility: [facility] Address: [address] [place], [place] [address] Performed By: #### A LLBG ####[facility] LABCLIA [id number] [place] [id number] [place] Hemoglobin (Bld) [Mass/Vol] 9.0 g/dL Low 11.5-15.[address] [facility] Comment on above: Order Comment: Speci men Type: ARTERIAL BLOOD SPECIMENOrdering Facility: [facility] Address: [address] [place] [address] Performed By: #### A LLBG ####[facility] LABIA [id number] [place] [id number] [place] Methemoglobin (Bld) [Mass fraction] 0.8 % Normal 0.0-1.[address] [facility] Comment on above: Order Comment: Speci men Type: ARTERIAL BLOOD SPECIMENOrdering Facility: [facility] Address: [address] [place] [address] Performed By: #### A LLBG ####[facility] LABIA [id number] [place] [id number] [place] Oxygen (Bld) [Partial pressure] 131 mm Hg High 85-[address] [facility] Comment on above: Order Comment: Speci men Type: ARTERIAL BLOOD SPECIMENOrdering Facility: [facility] Address: [address] [place] [address] Performed By: #### A LLBG ####[facility] LABIA [id number] [place] [id number] [place] Oxyhemoglobin (BldA) [Mass fraction] 97 % Normal 95-[address] [facility] Comment on above: Order Comment: Speci men Type: ARTERIAL BLOOD SPECIMENOrdering Facility: [facility] Address: [address] [place] [address] Performed By: #### A LLBG ####[facility] LABIA [id number] [address] [address] [place] pH (Bld) 7.46 [pH] High 7.35-7.[address] [facility] Comment on above: Order Comment: Speci men Type: ARTERIAL BLOOD SPECIMENOrdering Facility: [facility] Address: [address] [place] [address] Performed By: #### A LLBG ####[facility] LABIA [id number] [place] [id number] [place] Potassium [Moles/Vol] 3.8 mmol/L Normal 3.5-5.0 [facility] Comment on above: Order Comment: Speci men Type: ARTERIAL BLOOD SPECIMENOrdering Facility: [facility] Address: [address] [place] [address] Performed By: #### A LLBG ####[facility] LABCLIA [id number] [place] [address] [place] Sodium [Moles/Vol] 127 mmol/L Low 136-144 [facility] Comment on above: Order Comment: Speci men Type: ARTERIAL BLOOD SPECIMENOrdering Facility: [facility] Address: [address] [place] [address] Performed By: #### A LLBG ####[facility] LABCLIA [id number] [place] [address] [place] Base excess Calc (Bld) [Moles/Vol] 2 mmol/L Normal 0-[address] [facility] Comment on above: Order Comment: Speci men Type: ARTERIAL BLOOD SPECIMENOrdering Facility: [facility] Address: [address] [place] [address] Performed By: #### A LLBG ####[facility] LABCLIA [id number] [place] [address] [place] Body temperature 98.6 [degF] Normal [facility] Comment on above: Order Comment: Speci men Type: ARTERIAL BLOOD SPECIMENOrdering Facility: [facility] Address: [address] [place] [address] Performed By: #### A LLBG ####[facility] LABIA [id number] [place] [address] [place] Calcium.ionized (Bld) [Mass/Vol] 1.21 mmol/L Normal 1.08-1.[address] [facility] Comment on above: Order Comment: Speci men Type: ARTERIAL BLOOD SPECIMENOrdering Facility: [facility] Address: [address] [place] [address] Performed By: #### A LLBG ####[facility] LABCLIA [id number] [place] [address] [place] Calcium.ionized adjusted to pH 7.4 (BldA) [Moles/Vol] 1.16 mmol/L Normal 1.08-1.[address] [facility] Comment on above: Order Comment: Speci men Type: ARTERIAL BLOOD SPECIMENOrdering Facility: [facility] Address: [address] [place] [address] Performed By: #### A LLBG ####[facility] LABIA [id number] [place] [address] [place] Carboxyhemoglobin (BldA) [Mass fraction] 1.3 % Normal 0.0-2.[address] [facility] Comment on above: Order Comment: Speci men Type: ARTERIAL BLOOD SPECIMENOrdering Facility: [facility] Address: [address] [place] [address] Result Comment: Carb oxyhemoglobin Reference Range for Smokers: 2.0-8.0% Performed By: #### A LLBG ####[facility] LABIA [id number] [place] [address] [place] CO2 (Bld) [Partial pressure] 57 mm Hg High 36-[address] [facility] Comment on above: Order Comment: Speci men Type: ARTERIAL BLOOD SPECIMENOrdering Facility: [facility] Address: [address] [place] [address] Performed By: #### A LLBG ####[facility] LABIA [id number] [place] [address] [place] Glucose [Mass/Vol] 71 mg/dL Normal 60-105 [facility] Comment on above: Order Comment: Speci men Type: ARTERIAL BLOOD SPECIMENOrdering Facility: [facility] Address: [address] [place] [address] Performed By: #### A LLBG ####[facility] LABCLIA [id number] [place] [address] [place] HCO3 (Bld) [Moles/Vol] 28 mmol/L High 22-26 [facility] Comment on above: Order Comment: Speci men Type: ARTERIAL BLOOD SPECIMENOrdering Facility: [facility] Address: [address] [place] [address] Performed By: #### A LLBG ####[facility] LABCLIA [id number] [place] [address] [place] Hematocrit (Bld) [Volume fraction] 27.5 % Low 36.0-46.[address] [facility] Comment on above: Order Comment: Speci men Type: ARTERIAL BLOOD SPECIMENOrdering Facility: [facility] Address: [address] [place] [address] Performed By: #### A LLBG ####[facility] LABIA [id number] [place] [address] [place] Hemoglobin (Bld) [Mass/Vol] 8.9 g/dL Low 11.5-15.[address] [facility] Comment on above: Order Comment: Speci men Type: ARTERIAL BLOOD SPECIMENOrdering Facility: [facility] Address: [address] [place] [address] Performed By: #### A LLBG ####[facility] LABCLIA [id number] [place] [address] [place] Lactate [Moles/Vol] 0.4 mmol/L Low 0.5-2.2 [facility] Comment on above: Order Comment: Speci men Type: ARTERIAL BLOOD SPECIMENOrdering Facility: [facility] Address: [address] [place] [address] Performed By: #### A LLBG ####[facility] LABCLIA [id number] [place] [id number] [place] Methemoglobin (Bld) [Mass fraction] 1.0 % Normal 0.0-1.[address] [facility] Comment on above: Order Comment: Speci men Type: ARTERIAL BLOOD SPECIMENOrdering Facility: [facility] Address: [address] [place] [address] Performed By: #### A LLBG ####[facility] LABCLIA [id number] [place] [id number] [place] O2 THERAPY NC = Nasal Cannula Normal [facility] Comment on above: Order Comment: Speci men Type: ARTERIAL BLOOD SPECIMENOrdering Facility: [facility] Address: [address] [place] [address] Performed By: #### A LLBG ####[facility] LABCLIA [id number] [place] [id number] [place] Oxygen (Bld) [Partial pressure] 99 mm Hg High 85-[address] [facility] Comment on above: Order Comment: Speci men Type: ARTERIAL BLOOD SPECIMENOrdering Facility: [facility] Address: [address] [place] [address] Performed By: #### A LLBG ####[facility] LABCLIA [id number] [place] [address] [place] Oxyhemoglobin (BldA) [Mass fraction] 95 % Normal 95-[address] [facility] Comment on above: Order Comment: Speci men Type: ARTERIAL BLOOD SPECIMENOrdering Facility: [facility] Address: [address] [place] [address] Performed By: #### A LLBG ####[facility] LABCLIA [id number] [address] [address] [place] pH (Bld) 7.32 [pH] Low 7.35-7.[address] [facility] Comment on above: Order Comment: Speci men Type: ARTERIAL BLOOD SPECIMENOrdering Facility: [facility] Address: [address] [place] [address] Performed By: #### A LLBG ####[facility] LABCLIA [id number] [address] [address] [place] Potassium [Moles/Vol] 3.8 mmol/L Normal 3.5-5.0 [facility] Comment on above: Order Comment: Speci men Type: ARTERIAL BLOOD SPECIMENOrdering Facility: [facility] Address: [address] [place] [address] Performed By: #### A LLBG ####[facility] LABCLIA [id number] [place] [address] [place] Sodium [Moles/Vol] 130 mmol/L Low 136-144 [facility] Comment on above: Order Comment: Speci men Type: ARTERIAL BLOOD SPECIMENOrdering Facility: [facility] Address: [address] [place] [address] Performed By: #### A LLBG ####[facility] LABCLIA [id number] [address] [place] Base excess Calc (Bld) [Moles/Vol] 2 mmol/L Normal 0-[address] [facility] Comment on above: Order Comment: Speci men Type: ARTERIAL BLOOD SPECIMENOrdering Facility: [facility] Address: [address] [place] [address] Performed By: #### A LLBG ####[facility] LABCLIA [id number] [place] [address] [place] Body temperature 98.6 [degF] Normal [facility] Comment on above: Order Comment: Speci men Type: ARTERIAL BLOOD SPECIMENOrdering Facility: [facility] Address: [address] [place] [address] Performed By: #### A LLBG ####[facility] LABCLIA [id number] [address] [place] Order Comment: Speci men Type: VENOUS BLOOD SPECIMENOrdering Facility: [facility] Address: [address] [place] [address] Performed By: #### 2 4344-4 ####[facility] LABIA [id number] [place] [address] [place] Calcium.ionized (Bld) [Mass/Vol] 1.17 mmol/L Normal 1.08-1.[address] [facility] Comment on above: Order Comment: Speci men Type: ARTERIAL BLOOD SPECIMENOrdering Facility: [facility] Address: [address] [place] [address] Performed By: #### A LLBG ####[facility] LABIA [id number] [place] [address] [place] Calcium.ionized adjusted to pH 7.4 (BldA) [Moles/Vol] 1.11 mmol/L Normal 1.08-1.[address] [facility] Comment on above: Order Comment: Speci men Type: ARTERIAL BLOOD SPECIMENOrdering Facility: [facility] Address: [address] [place] [address] Performed By: #### A LLBG ####[facility] [id number] [place] [address] [place] Carboxyhemoglobin (BldA) [Mass fraction] 1.6 % Normal 0.0-2.[address] [facility] Comment on above: Order Comment: Speci men Type: ARTERIAL BLOOD SPECIMENOrdering Facility: [facility] Address: [address] [place] [address] Result Comment: Carb oxyhemoglobin Reference Range for Smokers: 2.0-8.0% Performed By: #### A LLBG ####[facility]UN[facility] [id number] [place] [address] [place] CO2 (Bld) [Partial pressure] 57 mm Hg High 36-[address] [facility] Comment on above: Order Comment: Speci men Type: ARTERIAL BLOOD SPECIMENOrdering Facility: [facility] Address: [address] [place] [address] Performed By: #### A LLBG ####[facility] LABIA [id number] [address] [place] [address] [place] Glucose [Mass/Vol] 72 mg/dL Normal 60-105 [facility] Comment on above: Order Comment: Speci men Type: ARTERIAL BLOOD SPECIMENOrdering Facility: [facility] Address: [address] [place] [address] Performed By: #### A LLBG ####[facility] LABCLIA [id number] [place] [address] [place] HCO3 (Bld) [Moles/Vol] 28 mmol/L High 22-26 [facility] Comment on above: Order Comment: Speci men Type: ARTERIAL BLOOD SPECIMENOrdering Facility: [facility] Address: [address] [place] [address] Performed By: #### A LLBG ####[facility] LABCLIA [id number] [place] [address] [place] Hematocrit (Bld) [Volume fraction] 28.2 % Low 36.0-46.[address] [facility] Comment on above: Order Comment: Speci men Type: ARTERIAL BLOOD SPECIMENOrdering Facility: [facility] Address: [address] [place] [address] Performed By: #### A LLBG ####[facility] LABCLIA [id number] [place] [id number] [place] Hemoglobin (Bld) [Mass/Vol] 9.1 g/dL Low 11.5-15.[address] [facility] Comment on above: Order Comment: Speci men Type: ARTERIAL BLOOD SPECIMENOrdering Facility: [facility] Address: [address] [place] [address] Performed By: #### A LLBG ####[facility] LABCLIA [id number] [place] [id number] [place] Lactate [Moles/Vol] 0.6 mmol/L Normal 0.5-2.2 [facility] Comment on above: Order Comment: Speci men Type: ARTERIAL BLOOD SPECIMENOrdering Facility: [facility] Address: [address] [place] [address] Performed By: #### A LLBG ####[facility] LABCLIA [id number] [address] [place] [address] [place] Methemoglobin (Bld) [Mass fraction] 0.8 % Normal 0.0-1.[address] [facility] Comment on above: Order Comment: Speci men Type: ARTERIAL BLOOD SPECIMENOrdering Facility: [facility] Address: [address] [place], [place] [address] Performed By: #### A LLBG ####[facility] LABCLIA [id number] [address] [place] [address] [place] O2 THERAPY NC = Nasal Cannula Normal [facility] Comment on above: Order Comment: Speci men Type: ARTERIAL BLOOD SPECIMENOrdering Facility: [facility] Address: [address] [place], [place] [address] Performed By: #### A LLBG ####[facility] LABCLIA [id number] [address] [place] [address] [place] Order Comment: Speci men Type: VENOUS BLOOD SPECIMENOrdering Facility: [facility] Address: [address] [place], [place] [address] Performed By: #### 2 4344-4 ####[facility] LABCLIA [id number] [address] [place] [address] [place] Oxygen (Bld) [Partial pressure] 91 mm Hg Normal 85-[address] [facility] Comment on above: Order Comment: Speci men Type: ARTERIAL BLOOD SPECIMENOrdering Facility: [facility] Address: [address] [place] [id number] Performed By: #### A LLBG ####[facility] LABCLIA [id number] [address] [place] [address] [place] Oxyhemoglobin (BldA) [Mass fraction] 94 % Low 95-[address] [facility] Comment on above: Order Comment: Speci men Type: ARTERIAL BLOOD SPECIMENOrdering Facility: [facility] Address: [address] [place] [address] Performed By: #### A LLBG ####[facility] LABCLIA [id number] [address] [address] [place] pH (Bld) 7.32 [pH] Low 7.35-7.[address] [facility] Comment on above: Order Comment: Speci men Type: ARTERIAL BLOOD SPECIMENOrdering Facility: [facility] Address: [address] [place] [address] Performed By: #### A LLBG ####[facility] LABCLIA [id number] [place] [address] [place] Potassium [Moles/Vol] 3.7 mmol/L Normal 3.5-5.0 [facility] Comment on above: Order Comment: Speci men Type: ARTERIAL BLOOD SPECIMENOrdering Facility: [facility] Address: [address] [place] [address] Performed By: #### A LLBG ####[facility] LABCLIA [id number] [place] [address] [place] Sodium [Moles/Vol] 129 mmol/L Low 136-144 [facility] Comment on above: Order Comment: Speci men Type: ARTERIAL BLOOD SPECIMENOrdering Facility: [facility] Address: [address] [place] [address] Performed By: #### A LLBG ####[facility] LABCLIA [id number] [address] [place] [address] [place] Order Comment: Speci men Type: VENOUS BLOOD SPECIMENOrdering Facility: [facility] Address: [address] [place] [address] Performed By: #### 2 4344-4 ####[facility] LABCLIA [id number] [address] [address] [place] Base excess Calc (Bld) [Moles/Vol] 1 mmol/L Normal 0-[address] [facility] Comment on above: Order Comment: Speci men Type: ARTERIAL BLOOD SPECIMENOrdering Facility: [facility] Address: [address] [place] [address] Performed By: #### A LLBG ####[facility] LABCLIA [id number] [place] [address] [place] Calcium.ionized (Bld) [Mass/Vol] 1.20 mmol/L Normal 1.08-1.[address] [facility] Comment on above: Order Comment: Speci men Type: ARTERIAL BLOOD SPECIMENOrdering Facility: [facility] Address: [address] [place] [address] Performed By: #### A LLBG ####[facility] LABCLIA [id number] [place] [address] [place] Calcium.ionized adjusted to pH 7.4 (BldA) [Moles/Vol] 1.15 mmol/L Normal 1.08-1.[address] [facility] Comment on above: Order Comment: Speci men Type: ARTERIAL BLOOD SPECIMENOrdering Facility: [facility] Address: [address] [place] [address] Performed By: #### A LLBG ####[facility] LABCLIA [id number] [place] [address] [place] Carboxyhemoglobin (BldA) [Mass fraction] 1.6 % Normal 0.0-2.[address] [facility] Comment on above: Order Comment: Speci men Type: ARTERIAL BLOOD SPECIMENOrdering Facility: [facility] Address: [address] [place] [address] Result Comment: Carb oxyhemoglobin Reference Range for Smokers: 2.0-8.0% Performed By: #### A LLBG ####[facility] LABCLIA [id number] [place] [address] [place] CO2 (Bld) [Partial pressure] 53 mm Hg High 36-[address] [facility] Comment on above: Order Comment: Speci men Type: ARTERIAL BLOOD SPECIMENOrdering Facility: [facility] Address: [address] [place] [address] Performed By: #### A LLBG ####[facility] LABCLIA [id number] [place] [id number] [place] Glucose [Mass/Vol] 62 mg/dL Normal 60-105 [facility] Comment on above: Order Comment: Speci men Type: ARTERIAL BLOOD SPECIMENOrdering Facility: [facility] Address: [address] [place] [address] Performed By: #### A LLBG ####[facility] LABCLIA [id number] [place] [address] [place] HCO3 (Bld) [Moles/Vol] 27 mmol/L High 22-26 [facility] Comment on above: Order Comment: Speci men Type: ARTERIAL BLOOD SPECIMENOrdering Facility: [facility] Address: [address] [place] [address] Performed By: #### A LLBG ####[facility] LABCLIA [id number] [place] [address] [place] Hematocrit (Bld) [Volume fraction] 25.9 % Low 36.0-46.[address] [facility] Comment on above: Order Comment: Speci men Type: ARTERIAL BLOOD SPECIMENOrdering Facility: [facility] Address: [address] [place] [address] Performed By: #### A LLBG ####[facility] LABCLIA [id number] [place] [id number] [place] Hemoglobin (Bld) [Mass/Vol] 8.3 g/dL Low 11.5-15.[address] [facility] Comment on above: Order Comment: Speci men Type: ARTERIAL BLOOD SPECIMENOrdering Facility: [facility] Address: [address] [place] [address] Performed By: #### A LLBG ####[facility] LABIA [id number] [place] [id number] [place] Methemoglobin (Bld) [Mass fraction] 0.7 % Normal 0.0-1.[address] [facility] Comment on above: Order Comment: Speci men Type: ARTERIAL BLOOD SPECIMENOrdering Facility: [facility] Address: [address] [place] [address] Performed By: #### A LLBG ####[facility] LABIA [id number] [place] [address] [place] Oxygen (Bld) [Partial pressure] 123 mm Hg High 85-[address] [facility] Comment on above: Order Comment: Speci men Type: ARTERIAL BLOOD SPECIMENOrdering Facility: [facility] Address: [address] [place] [address] Performed By: #### A LLBG ####[facility] LABIA [id number] [place] [address] [place] Oxyhemoglobin (BldA) [Mass fraction] 96 % Normal 95-[address] [facility] Comment on above: Order Comment: Speci men Type: ARTERIAL BLOOD SPECIMENOrdering Facility: [facility] Address: [address] [place] [address] Performed By: #### A LLBG ####[facility] LABIA [id number] [place] [address] [place] pH (Bld) 7.32 [pH] Low 7.35-7.[address] [facility] Comment on above: Order Comment: Speci men Type: ARTERIAL BLOOD SPECIMENOrdering Facility: [facility] Address: [address] [place] [address] Performed By: #### A LLBG ####[facility] LABIA [id number] [place] [id number] [place] Base excess Calc (Bld) [Moles/Vol] 2 mmol/L Normal 0-[address] [facility] Comment on above: Order Comment: Speci men Type: ARTERIAL BLOOD SPECIMENOrdering Facility: [facility] Address: [address] [place] [address] Performed By: #### A LLBG ####[facility] LABCLIA [id number] [place] [id number] [place] Body temperature 98.6 [degF] Normal [facility] Comment on above: Order Comment: Speci men Type: ARTERIAL BLOOD SPECIMENOrdering Facility: [facility] Address: [address] [place] [address] Performed By: #### A LLBG ####[facility] LABCLIA [id number] [address] [place] Order Comment: Speci men Type: VENOUS BLOOD SPECIMENOrdering Facility: [facility] Address: [address] [place] [address] Performed By: #### 2 4344-4 ####[facility] LABCLIA [id number] [place] [address] [place] Calcium.ionized (Bld) [Mass/Vol] 1.15 mmol/L Normal 1.08-1.[address] [facility] Comment on above: Order Comment: Speci men Type: ARTERIAL BLOOD SPECIMENOrdering Facility: [facility] Address: [address] [place] [address] Performed By: #### A LLBG ####[facility] LABCLIA [id number] [place] [id number] [place] Calcium.ionized adjusted to pH 7.4 (BldA) [Moles/Vol] 1.14 mmol/L Normal 1.08-1.[address] [facility] Comment on above: Order Comment: Speci men Type: ARTERIAL BLOOD SPECIMENOrdering Facility: [facility] Address: [address] [place] [address] Performed By: #### A LLBG ####[facility] LABCLIA [id number] [place] [address] [place] Carboxyhemoglobin (BldA) [Mass fraction] 1.6 % Normal 0.0-2.[address] [facility] Comment on above: Order Comment: Speci men Type: ARTERIAL BLOOD SPECIMENOrdering Facility: [facility] Address: [address] [place] [address] Result Comment: Carb oxyhemoglobin Reference Range for Smokers: 2.0-8.0% Performed By: #### A LLBG ####[facility] LABCLIA [id number] [place] [address] [place] CO2 (Bld) [Partial pressure] 44 mm Hg Normal 36-[address] [facility] Comment on above: Order Comment: Speci men Type: ARTERIAL BLOOD SPECIMENOrdering Facility: [facility] Address: [address] [place] [address] Performed By: #### A LLBG ####[facility] LABCLIA [id number] [place] [address] [place] Glucose [Mass/Vol] 87 mg/dL Normal 60-105 [facility] Comment on above: Order Comment: Speci men Type: ARTERIAL BLOOD SPECIMENOrdering Facility: [facility] Address: [address] [place] [address] Performed By: #### A LLBG ####[facility] LABCLIA [id number] [place] [address] [place] HCO3 (Bld) [Moles/Vol] 26 mmol/L Normal 22-26 [facility] Comment on above: Order Comment: Speci men Type: ARTERIAL BLOOD SPECIMENOrdering Facility: [facility] Address: [address] [place] [address] Performed By: #### A LLBG ####[facility] LABCLIA [id number] [place] [id number] [place] Hematocrit (Bld) [Volume fraction] 27.0 % Low 36.0-46.[address] [facility] Comment on above: Order Comment: Speci men Type: ARTERIAL BLOOD SPECIMENOrdering Facility: [facility] Address: [address] [place] [address] Performed By: #### A LLBG ####[facility] LABCLIA [id number] [address] [address] [place] Hemoglobin (Bld) [Mass/Vol] 8.7 g/dL Low 11.5-15.[address] [facility] Comment on above: Order Comment: Speci men Type: ARTERIAL BLOOD SPECIMENOrdering Facility: [facility] Address: [address] [place] [address] Performed By: #### A LLBG ####[facility] LABIA [id number] [address] [place] Lactate [Moles/Vol] 0.6 mmol/L Normal 0.5-2.2 [facility] Comment on above: Order Comment: Speci men Type: ARTERIAL BLOOD SPECIMENOrdering Facility: [facility] Address: [address] [place] [address] Performed By: #### A LLBG ####[facility] LABCLIA [id number] [address] [place] Methemoglobin (Bld) [Mass fraction] 1.0 % Normal 0.0-1.[address] [facility] Comment on above: Order Comment: Speci men Type: ARTERIAL BLOOD SPECIMENOrdering Facility: [facility] Address: [address] [place] [address] Performed By: #### A LLBG ####[facility] LABCLIA [id number] [place] [id number] [place] O2 THERAPY Positive Normal [facility] Comment on above: Order Comment: Speci men Type: ARTERIAL BLOOD SPECIMENOrdering Facility: [facility] Address: [address] [place], [place] [address] Performed By: #### A LLBG ####[facility] LABCLIA [id number] [address] [place] [address] [place] Order Comment: Speci men Type: VENOUS BLOOD SPECIMENOrdering Facility: [facility] Address: [address] [place] [address] Performed By: #### 2 4344-4 ####[facility] LABCLIA [id number] [place] [id number] [place] Oxygen (Bld) [Partial pressure] 127 mm Hg High 85-[address] [facility] Comment on above: Order Comment: Speci men Type: ARTERIAL BLOOD SPECIMENOrdering Facility: [facility] Address: [address] [place] [address] Performed By: #### A LLBG ####[facility] LABCLIA [id number] [place] [id number] [place] Oxyhemoglobin (BldA) [Mass fraction] 96 % Normal 95-[address] [facility] Comment on above: Order Comment: Speci men Type: ARTERIAL BLOOD SPECIMENOrdering Facility: [facility] Address: [address] [place] [address] Performed By: #### A LLBG ####[facility] LABCLIA [id number] [place] [address] [place] pH (Bld) 7.39 [pH] Normal 7.35-7.[address] [facility] Comment on above: Order Comment: Speci men Type: ARTERIAL BLOOD SPECIMENOrdering Facility: [facility] Address: [address] [place] [address] Performed By: #### A LLBG ####[facility] LABCLIA [id number] [place] [id number] [place] Potassium [Moles/Vol] 4.1 mmol/L Normal 3.5-5.0 [facility] Comment on above: Order Comment: Speci men Type: ARTERIAL BLOOD SPECIMENOrdering Facility: [facility] Address: [address] [place] [address] Performed By: #### A LLBG ####[facility] LABCLIA [id number] [facility] [address] [place] [address] [place] Sodium [Moles/Vol] 128 mmol/L Low 136-144 [facility] Comment on above: Order Comment: Speci men Type: ARTERIAL BLOOD SPECIMENOrdering Facility: [facility] Address: [address] [place] [address] Performed By: #### A LLBG ####[facility] LABCLIA [id number] [facility] [address] [place] [address] [place] Order Comment: Speci men Type: VENOUS BLOOD SPECIMENOrdering Facility: [facility] Address: [address] [place] [address] Performed By: #### 2 4344-4 ####[facility] LABCLIA [id number] [place] [address] [place] Base excess Calc (Bld) [Moles/Vol] 1 mmol/L Normal 0-[address] [facility] Comment on above: Order Comment: Speci men Type: ARTERIAL BLOOD SPECIMENOrdering Facility: [facility] Address: [address] [place] [address] Performed By: #### A LLBG ####[facility] LABCLIA [id number] [place] [id number] [place] Body temperature 98.6 [degF] Normal [facility] Comment on above: Order Comment: Speci men Type: ARTERIAL BLOOD SPECIMENOrdering Facility: [facility] Address: [address] [place] [address] Performed By: #### A LLBG ####[facility] LABCLIA [id number] [place] [id number] [place] Order Comment: Speci men Type: VENOUS BLOOD SPECIMENOrdering Facility: [facility] Address: [address] [place] [address] Performed By: #### 2 4344-4 ####[facility] LABIA [id number] [place] [address] [place] Calcium.ionized (Bld) [Mass/Vol] 1.15 mmol/L Normal 1.08-1.[address] [facility] Comment on above: Order Comment: Speci men Type: ARTERIAL BLOOD SPECIMENOrdering Facility: [facility] Address: [address] [place] [address] Performed By: #### A LLBG ####[facility] LABIA [id number] [place] [address] [place] Calcium.ionized adjusted to pH 7.4 (BldA) [Moles/Vol] 1.12 mmol/L Normal 1.08-1.[address] [facility] Comment on above: Order Comment: Speci men Type: ARTERIAL BLOOD SPECIMENOrdering Facility: [facility] Address: [address] [place] [address] Performed By: #### A LLBG ####[facility] [id number] [place] [address] [place] Carboxyhemoglobin (BldA) [Mass fraction] 1.3 % Normal 0.0-2.[address] [facility] Comment on above: Order Comment: Speci men Type: ARTERIAL BLOOD SPECIMENOrdering Facility: [facility] Address: [address] [place] [address] Result Comment: Carb oxyhemoglobin Reference Range for Smokers: 2.0-8.0% Performed By: #### A LLBG ####[facility] LABIA [id number] [place] [address] [place] CO2 (Bld) [Partial pressure] 48 mm Hg High 36-[address] [facility] Comment on above: Order Comment: Speci men Type: ARTERIAL BLOOD SPECIMENOrdering Facility: [facility] Address: [address] [place] [address] Performed By: #### A LLBG ####[facility] LABIA [id number] [address] [place] [address] [place] Glucose [Mass/Vol] 61 mg/dL Normal 60-105 [facility] Comment on above: Order Comment: Speci men Type: ARTERIAL BLOOD SPECIMENOrdering Facility: [facility] Address: [address] [place] [address] Performed By: #### A LLBG ####[facility] LABCLIA [id number] [place] [id number] [place] HCO3 (Bld) [Moles/Vol] 26 mmol/L Normal 22-26 [facility] Comment on above: Order Comment: Speci men Type: ARTERIAL BLOOD SPECIMENOrdering Facility: [facility] Address: [address] [place] [address] Performed By: #### A LLBG ####[facility] LABCLIA [id number] [place] [address] [place] Hematocrit (Bld) [Volume fraction] 26.6 % Low 36.0-46.[address] [facility] Comment on above: Order Comment: Speci men Type: ARTERIAL BLOOD SPECIMENOrdering Facility: [facility] Address: [address] [place] [address] Performed By: #### A LLBG ####[facility] LABCLIA [id number] [place] [id number] [place] Hemoglobin (Bld) [Mass/Vol] 8.5 g/dL Low 11.5-15.[address] [facility] Comment on above: Order Comment: Speci men Type: ARTERIAL BLOOD SPECIMENOrdering Facility: [facility] Address: [address] [place] [address] Performed By: #### A LLBG ####[facility] LABCLIA [id number] [place] [id number] [place] Lactate [Moles/Vol] 0.5 mmol/L Normal 0.5-2.2 [facility] Comment on above: Order Comment: Speci men Type: ARTERIAL BLOOD SPECIMENOrdering Facility: [facility] Address: [address] [place] [address] Performed By: #### A LLBG ####[facility] LABCLIA [id number] [address] [place] [address] [place] Methemoglobin (Bld) [Mass fraction] 1.1 % Normal 0.0-1.[address] [facility] Comment on above: Order Comment: Speci men Type: ARTERIAL BLOOD SPECIMENOrdering Facility: [facility] Address: [address] [place], [place] [address] Performed By: #### A LLBG ####[facility] LABCLIA [id number] [address] [place] [address] [place] O2 THERAPY NC = Nasal Cannula Normal [facility] Comment on above: Order Comment: Speci men Type: ARTERIAL BLOOD SPECIMENOrdering Facility: [facility] Address: [address] [place], [place] [address] Performed By: #### A LLBG ####[facility] LABCLIA [id number] [address] [place] [address] [place] Order Comment: Speci men Type: VENOUS BLOOD SPECIMENOrdering Facility: [facility] Address: [address] [place], [place] [address] Performed By: #### 2 4344-4 ####[facility] LABCLIA [id number] [address] [place] [address] [place] Oxygen (Bld) [Partial pressure] 148 mm Hg High 85-[address] [facility] Comment on above: Order Comment: Speci men Type: ARTERIAL BLOOD SPECIMENOrdering Facility: [facility] Address: [address] [place] [id number] Performed By: #### A LLBG ####[facility] LABCLIA [id number] [address] [place] [address] [place] Oxyhemoglobin (BldA) [Mass fraction] 97 % Normal 95-[address] [facility] Comment on above: Order Comment: Speci men Type: ARTERIAL BLOOD SPECIMENOrdering Facility: [facility] Address: [address] [place] [address] Performed By: #### A LLBG ####[facility] LABCLIA [id number] [address] [address] [place] pH (Bld) 7.35 [pH] Normal 7.35-7.[address] [facility] Comment on above: Order Comment: Speci men Type: ARTERIAL BLOOD SPECIMENOrdering Facility: [facility] Address: [address] [place] [address] Performed By: #### A LLBG ####[facility] LABCLIA [id number] [place] [address] [place] Potassium [Moles/Vol] 3.7 mmol/L Normal 3.5-5.0 [facility] Comment on above: Order Comment: Speci men Type: ARTERIAL BLOOD SPECIMENOrdering Facility: [facility] Address: [address] [place] [address] Performed By: #### A LLBG ####[facility] LABIA [id number] [place] [address] [place] Sodium [Moles/Vol] 129 mmol/L Low 136-144 [facility] Comment on above: Order Comment: Speci men Type: ARTERIAL BLOOD SPECIMENOrdering Facility: [facility] Address: [address] [place] [address] Performed By: #### A LLBG ####[facility] LABCLIA [id number] [place] [id number] [place] CBC panel Auto (Bld)on 09-06 Erythrocyte distribution width (RBC) [Ratio] 14.6 % Normal 11.5-15.[address] [facility] Comment on above: Order Comment: Speci men Type: BLOOD SPECIMENOrdering Facility: [facility] Address: [address] [place] [address] Performed By: #### 5 8410-2 ####[facility] LABIA [id number] [place] [address] [place] Hematocrit (Bld) [Volume fraction] 26.6 % Low 36.0-46.[address] [facility] Comment on above: Order Comment: Speci men Type: BLOOD SPECIMENOrdering Facility: [facility] Address: [address] [place] [address] Performed By: #### 5 8410-2 ####[facility] LABIA [id number] [place] [address] [place] Hemoglobin (Bld) [Mass/Vol] 8.6 g/dL Low 11.5-15.[address] [facility] Comment on above: Order Comment: Speci men Type: BLOOD SPECIMENOrdering Facility: [facility] Address: [address] [place] [address] Performed By: #### 5 8410-2 ####[facility] LABIA [id number] [place] [address] [place] MCH (RBC) [Entitic mass] 29.4 pg Normal 26.0-34.[address] [facility] Comment on above: Order Comment: Speci men Type: BLOOD SPECIMENOrdering Facility: [facility] Address: [address] [place] [address] Performed By: #### 5 8410-2 ####[facility] LABIA [id number] [place] [address] [place] MCHC (RBC) [Mass/Vol] 32.3 g/dL Normal 30.5-36.0 [facility] Comment on above: Order Comment: Speci men Type: BLOOD SPECIMENOrdering Facility: [facility] Address: [address] [place] [address] Performed By: #### 5 8410-2 ####[facility]UN[facility] [id number] [place] [address] [place] MCV (RBC) [Entitic vol] 90.8 fL Normal 80.0-100.[address] [facility] Comment on above: Order Comment: Speci men Type: BLOOD SPECIMENOrdering Facility: [facility] Address: [address] [place] [address] Performed By: #### 5 8410-2 ####[facility] LABCLIA [id number] [place] [address] [place] Nucleated RBC (Bld) [#/Vol] 0.02 10*3/uL High <0.[address] [facility] Comment on above: Order Comment: Speci men Type: BLOOD SPECIMENOrdering Facility: [facility] Address: [address] [place] [address] Performed By: #### 5 8410-2 ####[facility] LABCLIA [id number] [place] [address] [place] Platelet mean volume (Bld) [Entitic vol] 9.9 fL Normal 9.0-12.[address] [facility] Comment on above: Order Comment: Speci men Type: BLOOD SPECIMENOrdering Facility: [facility] Address: [address] [place] [address] Performed By: #### 5 8410-2 ####[facility] LABCLIA [id number] [place] [address] [place] Platelets (Bld) [#/Vol] 232 10*3/uL Normal 150-[address] [facility] Comment on above: Order Comment: Speci men Type: BLOOD SPECIMENOrdering Facility: [facility] Address: [address] [place] [address] Performed By: #### 5 8410-2 ####[facility] LABCLIA [id number] [place] [address] [place] RBC (Bld) [#/Vol] 2.93 10*6/uL Low 3.90-5.20 [facility] Comment on above: Order Comment: Speci men Type: BLOOD SPECIMENOrdering Facility: [facility] Address: [address] [place], [place] [address] Performed By: #### 5 8410-2 ####[facility] LABCLIA [id number] [address] [address] [place] WBC (Bld) [#/Vol] 16.44 10*3/uL High 3.70-11.00 [facility] Comment on above: Order Comment: Speci men Type: BLOOD SPECIMENOrdering Facility: [facility] Address: [address] [place] [address] Performed By: #### 5 8410-2 ####[facility] LABCLIA [id number] [place] [address] [place] Comprehensive metabolic 2000 panelon 09-06-2024 Albumin [Mass/Vol] 2.9 g/dL Low 3.9-4.9 [facility] Comment on above: Order Comment: Speci men Type: BLOOD SPECIMENOrdering Facility: [facility] Address: [address] [place], [place] [address] Performed By: #### 2 4323-8 ####[facility] LABCLIA [id number] [place] [id number] [place] ALP [Catalytic activity/Vol] 74 U/L Normal 34-[address] [facility] Comment on above: Order Comment: Speci men Type: BLOOD SPECIMENOrdering Facility: [facility] Address: [address] [place], [place] [address] Performed By: #### 2 4323-8 ####[facility] LABCLIA [id number] [address] [address] [place] ALT [Catalytic activity/Vol] 22 U/L Normal 7-[address] [facility] Comment on above: Order Comment: Speci men Type: BLOOD SPECIMENOrdering Facility: [facility] Address: [address] [place], [place] [address] Performed By: #### 2 4323-8 ####[facility] LABCLIA [id number] [facility] [address] [place] [address] [place] Anion gap [Moles/Vol] 10 mmol/L Normal 8-15 [facility] Comment on above: Order Comment: Speci men Type: BLOOD SPECIMENOrdering Facility: [facility] Address: [address] [place] [address] Performed By: #### 2 4323-8 ####[facility] LABCLIA [id number] [address] [place] [address] [place] AST [Catalytic activity/Vol] 39 U/L High 13-[address] [facility] Comment on above: Order Comment: Speci men Type: BLOOD SPECIMENOrdering Facility: [facility] Address: [address] [place] [address] Performed By: #### 2 4323-8 ####[facility] LABCLIA [id number] [place] [id number] [place] Bilirubin [Mass/Vol] 0.3 mg/dL Normal 0.2-1.3 [facility] Comment on above: Order Comment: Speci men Type: BLOOD SPECIMENOrdering Facility: [facility] Address: [address] [place] [address] Performed By: #### 2 4323-8 ####[facility] LABCLIA [id number] [place] [id number] [place] Calcium [Mass/Vol] 8.3 mg/dL Low 8.5-10.2 [facility] Comment on above: Order Comment: Speci men Type: BLOOD SPECIMENOrdering Facility: [facility] Address: [address] [place] [address] Performed By: #### 2 4323-8 ####[facility] LABCLIA [id number] [facility] [address] [place] [address] [place] Chloride [Moles/Vol] 98 mmol/L Normal 98-107 [facility] Comment on above: Order Comment: Speci men Type: BLOOD SPECIMENOrdering Facility: [facility] Address: [address] [place] [address] Performed By: #### 2 4323-8 ####[facility] LABCLIA [id number] [place] [address] [place] CO2 [Moles/Vol] 23 mmol/L Normal 22-[address] [facility] Comment on above: Order Comment: Speci men Type: BLOOD SPECIMENOrdering Facility: [facility] Address: [address] [place] [address] Performed By: #### 2 4323-8 ####[facility] LABIA [id number] [address] [place] Creatinine [Mass/Vol] 0.55 mg/dL Low 0.58-0.96 [facility] Comment on above: Order Comment: Speci men Type: BLOOD SPECIMENOrdering Facility: [facility] Address: [address] [place] [address] Performed By: #### 2 4323-8 ####[facility] LABIA [id number] [place] [address] [place] eGFRcr SerPlBld CKD-EPI 2020 114 mL/min/1.73m??? Normal >=[address] [facility] Comment on above: Order Comment: Speci men Type: BLOOD SPECIMENOrdering Facility: [facility] Address: [address] [place] [address] Result Comment: Tsering mated Glomerular Filtration Rate [...] actual GFR. Performed By: #### 2 4323-8 ####[facility] LABCLIA [id number] [place] [address] [place] Glucose [Mass/Vol] 56 mg/dL Low 74-99 [facility] Comment on above: Order Comment: Speci men Type: BLOOD SPECIMENOrdering Facility: [facility] Address: [address] [place] [address] Result Comment: The [place] [employer] Association (ADA) provides guidance for cutoff [...] Standards of Medical Care in Diabetes 2016, [place] [employer]. Diabetes Care. 2016.39(Suppl 1). Performed By: #### 2 4323-8 ####[facility] LABCLIA [id number] [place] [address] [place] Potassium [Moles/Vol] 3.8 mmol/L Normal 3.7-5.1 [facility] Comment on above: Order Comment: Speci men Type: BLOOD SPECIMENOrdering Facility: [facility] Address: [address] [place], [place] [address] Performed By: #### 2 4323-8 ####[facility] LABCLIA [id number] [place] [id number] [place] Protein [Mass/Vol] 5.5 g/dL Low 6.3-8.0 [facility] Comment on above: Order Comment: Speci men Type: BLOOD SPECIMENOrdering Facility: [facility] Address: [address] [place], [place] [address] Performed By: #### 2 4323-8 ####[facility] LABCLIA [id number] [place] [id number] [place] Sodium [Moles/Vol] 131 mmol/L Low 136-144 [facility] Comment on above: Order Comment: Speci men Type: BLOOD SPECIMENOrdering Facility: [facility] Address: [address] [place] [address] Performed By: #### 2 4323-8 ####[facility] LABCLIA [id number] [facility] [place] [id number] [place] Urea nitrogen [Mass/Vol] 13 mg/dL Normal 7-[address] [facility] Comment on above: Order Comment: Speci men Type: BLOOD SPECIMENOrdering Facility: [facility] Address: [address] [place] [address] Performed By: #### 2 4323-8 ####[facility] LABCLIA [id number] [place] [id number] [place] Gas + CO Pnl BldVon 09-07-19 25 Body temperature 98.6 [degF] Normal [facility] Comment on above: Order Comment: Speci men Type: VENOUS BLOOD SPECIMENOrdering Facility: [facility] Address: [address] [place] [address] Performed By: #### 2 4344-4 ####[facility] LABCLIA [id number] [place] [address] [place] Order Comment: Speci men Type: ARTERIAL BLOOD SPECIMENOrdering Facility: [facility] Address: [address] [place] [address] Performed By: #### A LLBG ####[facility] LABCLIA [id number] [place] [id number] [place] Lactate [Moles/Vol] 0.5 mmol/L Normal 0.5-2.2 [facility] Comment on above: Order Comment: Speci men Type: VENOUS BLOOD SPECIMENOrdering Facility: [facility] Address: [address] [place] [address] Performed By: #### 2 4344-4 ####[facility] LABCLIA [id number] [facility] [address] [place] [address] [place] Order Comment: Speci men Type: ARTERIAL BLOOD SPECIMENOrdering Facility: [facility] Address: [address] [place] [address] Performed By: #### A LLBG ####[facility] LABCLIA [id number] [place] [id number] [place] O2 THERAPY NC = Nasal Cannula Normal [facility] Comment on above: Order Comment: Speci men Type: VENOUS BLOOD SPECIMENOrdering Facility: [facility] Address: [address] [place] [address] Performed By: #### 2 4344-4 ####[facility] LABCLIA [id number] [address], [facility] [place] Order Comment: Speci men Type: ARTERIAL BLOOD SPECIMENOrdering Facility: [facility] Address: [address] [place] [address] Performed By: #### A LLBG ####[facility] LABCLIA [id number] [place] [address] [place] Body temperature 98.6 [degF] Normal [facility] Comment on above: Order Comment: Speci men Type: VENOUS BLOOD SPECIMENOrdering Facility: [facility] Address: [address] [place] [address] Performed By: #### 2 4344-4 ####[facility] LABCLIA [id number] [facility] [place] [id number] [place] Order Comment: Speci men Type: ARTERIAL BLOOD SPECIMENOrdering Facility: [facility] Address: [address] [place] [address] Performed By: #### A LLBG ####[facility] LABCLIA [id number] [address] [address] [place] Lactate [Moles/Vol] 0.5 mmol/L Normal 0.5-2.2 [facility] Comment on above: Order Comment: Speci men Type: VENOUS BLOOD SPECIMENOrdering Facility: [facility] Address: [address] [place] [address] Performed By: #### 2 4344-4 ####[facility] LABCLIA [id number] [address] [place] [address] [place] Order Comment: Speci men Type: ARTERIAL BLOOD SPECIMENOrdering Facility: [facility] Address: [address] [place] [address] Performed By: #### A LLBG ####[facility] LABCLIA [id number] [place] [id number] [place] O2 THERAPY NC = Nasal Cannula Normal [facility] Comment on above: Order Comment: Speci men Type: VENOUS BLOOD SPECIMENOrdering Facility: [facility] Address: [address] [place] [address] Performed By: #### 2 4344-4 ####[facility] LABCLIA [id number] [address] [address] [place] Order Comment: Speci men Type: ARTERIAL BLOOD SPECIMENOrdering Facility: [facility] Address: [address] [place] [address] Performed By: #### A LLBG ####[facility] LABCLIA [id number] [address] [address] [place] Potassium [Moles/Vol] 4.1 mmol/L Normal 3.5-5.0 [facility] Comment on above: Order Comment: Speci men Type: VENOUS BLOOD SPECIMENOrdering Facility: [facility] Address: [address] [place], [place] [id number] Performed By: #### 2 [id number] ####[facility] LABCLIA [id number] [address] [place] [address] [place] Order Comment: Speci men Type: ARTERIAL BLOOD SPECIMENOrdering Facility: [facility] Address: [address] [place] [address] Performed By: #### A LLBG ####[facility] LABCLIA [id number] [place] [address] [place] Sodium [Moles/Vol] 129 mmol/L Low 136-144 [facility] Comment on above: Order Comment: Speci men Type: VENOUS BLOOD SPECIMENOrdering Facility: [facility] Address: [address] [place] [address] Performed By: #### 2 4344-4 ####[facility] LABIA [id number] [place] [address] [place] Order Comment: Speci men Type: ARTERIAL BLOOD SPECIMENOrdering Facility: [facility] Address: [address] [place] [address] Performed By: #### A LLBG ####[facility]IA [id number] [place] [address] [place] Gas and Carbon monoxide pane l (BldV)on 09-06-2024 Base excess Calc (BldV) [Moles/Vol] 3 mmol/L High 0-[address] [facility] Comment on above: Order Comment: Speci men Type: VENOUS BLOOD SPECIMENOrdering Facility: [facility] Address: [address] [place] [address] Performed By: #### 2 4344-4 ####[facility]IA [id number] [place] [address] [place] Calcium.ionized (Bld) [Mass/Vol] 1.13 mmol/L Normal 1.08-1.[address] [facility] Comment on above: Order Comment: Speci men Type: VENOUS BLOOD SPECIMENOrdering Facility: [facility] Address: [address] [place] [address] Performed By: #### 2 4344-4 ####[facility]IA [id number] [place] [address] [place] Calcium.ionized adjusted to pH 7.4 (BldA) [Moles/Vol] 1.07 mmol/L Low 1.08-1.[address] [facility] Comment on above: Order Comment: Speci men Type: VENOUS BLOOD SPECIMENOrdering Facility: [facility] Address: [address] [place] [address] Performed By: #### 2 4344-4 ####[facility]IA [id number] [address] [place] Carboxyhemoglobin (BldV) [Mass fraction] 1.4 % Normal 0.0-2.[address] [facility] Comment on above: Order Comment: Speci men Type: VENOUS BLOOD SPECIMENOrdering Facility: [facility] Address: [address] [place] [address] Result Comment: Carb oxyhemoglobin Reference Range for Smokers: 2.0-8.0% Performed By: #### 2 4344-4 ####[facility]IA [id number] [address] [place] CO2 (BldV) [Partial pressure] 61 mm[Hg] High 42-[address] [facility] Comment on above: Order Comment: Speci men Type: VENOUS BLOOD SPECIMENOrdering Facility: [facility] Address: [address] [place] [address] Performed By: #### 2 4344-4 ####[facility]IA [id number] [place] [address] [place] Glucose [Mass/Vol] 68 mg/dL Normal 60-105 [facility] Comment on above: Order Comment: Speci men Type: VENOUS BLOOD SPECIMENOrdering Facility: [facility] Address: [address] [place] [address] Performed By: #### 2 4344-4 ####[facility] LABCLIA [id number] [place] [id number] [place] HCO3 (Bld) [Moles/Vol] 29 mmol/L High 24-28 [facility] Comment on above: Order Comment: Speci men Type: VENOUS BLOOD SPECIMENOrdering Facility: [facility] Address: [address] [place] [address] Performed By: #### 2 4344-4 ####[facility]IA [id number] [address] [address] [place] Hematocrit (Bld) [Volume fraction] 26.3 % Low 36.0-46.[address] [facility] Comment on above: Order Comment: Speci men Type: VENOUS BLOOD SPECIMENOrdering Facility: [facility] Address: [address] [place] [address] Performed By: #### 2 4344-4 ####[facility]IA [id number] [place] [id number] [place] Hemoglobin (Bld) [Mass/Vol] 8.5 g/dL Low 11.5-15.[address] [facility] Comment on above: Order Comment: Speci men Type: VENOUS BLOOD SPECIMENOrdering Facility: [facility] Address: [address] [place] [address] Performed By: #### 2 4344-4 ####[facility]IA [id number] [place] [id number] [place] Methemoglobin (Bld) [Mass fraction] 1.0 % Normal 0.0-1.[address] [facility] Comment on above: Order Comment: Speci men Type: VENOUS BLOOD SPECIMENOrdering Facility: [facility] Address: [address] [place] [address] Performed By: #### 2 4344-4 ####[facility]IA [id number] [place] [id number] [place] Oxygen (BldV) [Partial pressure] 37 mm[Hg] Normal 35-[address] [facility] Comment on above: Order Comment: Speci men Type: VENOUS BLOOD SPECIMENOrdering Facility: [facility] Address: [address] [place], [place] [address] Performed By: #### 2 4344-4 ####[facility] LABCLIA [id number] [address] [address] [place] Oxygen saturation in Venous blood 57 % Low 60-[address] [facility] Comment on above: Order Comment: Speci men Type: VENOUS BLOOD SPECIMENOrdering Facility: [facility] Address: [address] [place] [address] Performed By: #### 2 4344-4 ####[facility] LABCLIA [id number] [address] [address] [place] Oxyhemoglobin (BldV) [Mass fraction] 56 % Low 60-[address] [facility] Comment on above: Order Comment: Speci men Type: VENOUS BLOOD SPECIMENOrdering Facility: [facility] Address: [address] [place] [address] Performed By: #### 2 4344-4 ####[facility] LABCLIA [id number] [place] [address] [place] pH (BldV) 7.30 [pH] Low 7.32-7.[address] [facility] Comment on above: Order Comment: Speci men Type: VENOUS BLOOD SPECIMENOrdering Facility: [facility] Address: [address] [place] [address] Performed By: #### 2 4344-4 ####[facility] LABCLIA [id number] [place] [address] [place] Potassium [Moles/Vol] 3.6 mmol/L Normal 3.5-5.0 [facility] Comment on above: Order Comment: Speci men Type: VENOUS BLOOD SPECIMENOrdering Facility: [facility] Address: [address] [place] [address] Performed By: #### 2 4344-4 ####[facility]IA [id number] [place] [id number] [place] Sodium [Moles/Vol] 129 mmol/L Low 136-144 [facility] Comment on above: Order Comment: Speci men Type: VENOUS BLOOD SPECIMENOrdering Facility: [facility] Address: [address] [place] [address] Performed By: #### 2 4344-4 ####[facility]IA [id number] [place] [address] [place] Base excess Calc (BldV) [Moles/Vol] 2 mmol/L Normal 0-[address] [facility] Comment on above: Order Comment: Speci men Type: VENOUS BLOOD SPECIMENOrdering Facility: [facility] Address: [address] [place] [address] Performed By: #### 2 4344-4 ####[facility]IA [id number] [place] [address] [place] Calcium.ionized (Bld) [Mass/Vol] 1.14 mmol/L Normal 1.08-1.[address] [facility] Comment on above: Order Comment: Speci men Type: VENOUS BLOOD SPECIMENOrdering Facility: [facility] Address: [address] [place] [address] Performed By: #### 2 4344-4 ####[facility]IA [id number] [place] [address] [place] Calcium.ionized adjusted to pH 7.4 (BldA) [Moles/Vol] 1.09 mmol/L Normal 1.08-1.[address] [facility] Comment on above: Order Comment: Speci men Type: VENOUS BLOOD SPECIMENOrdering Facility: [facility] Address: [address] [place] [address] Performed By: #### 2 4344-4 ####[facility]IA [id number] [place] [id number] [place] Carboxyhemoglobin (BldV) [Mass fraction] 1.1 % Normal 0.0-2.[address] [facility] Comment on above: Order Comment: Speci men Type: VENOUS BLOOD SPECIMENOrdering Facility: [facility] Address: [address] [place] [address] Result Comment: Carb oxyhemoglobin Reference Range for Smokers: 2.0-8.0% Performed By: #### 2 4344-4 ####[facility] LABCLIA [id number] [address] [address] [place] CO2 (BldV) [Partial pressure] 59 mm[Hg] High 42-[address] [facility] Comment on above: Order Comment: Speci men Type: VENOUS BLOOD SPECIMENOrdering Facility: [facility] Address: [address] [place] [address] Performed By: #### 2 4344-4 ####[facility] LABCLIA [id number] [place] [address] [place] Glucose [Mass/Vol] 70 mg/dL Normal 60-105 [facility] Comment on above: Order Comment: Speci men Type: VENOUS BLOOD SPECIMENOrdering Facility: [facility] Address: [address] [place] [address] Performed By: #### 2 4344-4 ####[facility] LABCLIA [id number] [place] [address] [place] HCO3 (Bld) [Moles/Vol] 29 mmol/L High 24-28 [facility] Comment on above: Order Comment: Speci men Type: VENOUS BLOOD SPECIMENOrdering Facility: [facility] Address: [address] [place] [address] Performed By: #### 2 4344-4 ####[facility] LABCLIA [id number] [place] [id number] [place] Hematocrit (Bld) [Volume fraction] 27.3 % Low 36.0-46.[address] [facility] Comment on above: Order Comment: Speci men Type: VENOUS BLOOD SPECIMENOrdering Facility: [facility] Address: [address] [place] [address] Performed By: #### 2 4344-4 ####[facility] LABCLIA [id number] [address] [address] [place] Hemoglobin (Bld) [Mass/Vol] 8.8 g/dL Low 11.5-15.[address] [facility] Comment on above: Order Comment: Speci men Type: VENOUS BLOOD SPECIMENOrdering Facility: [facility] Address: [address] [place] [address] Performed By: #### 2 4344-4 ####[facility]IA [id number] [address] [address] [place] Lactate [Moles/Vol] 0.5 mmol/L Normal 0.5-2.2 [facility] Comment on above: Order Comment: Speci men Type: VENOUS BLOOD SPECIMENOrdering Facility: [facility] Address: [address] [place] [address] Performed By: #### 2 4344-4 ####[facility]IA [id number] [address] [address] [place] Methemoglobin (Bld) [Mass fraction] 1.1 % Normal 0.0-1.[address] [facility] Comment on above: Order Comment: Speci men Type: VENOUS BLOOD SPECIMENOrdering Facility: [facility] Address: [address] [place] [address] Performed By: #### 2 4344-4 ####[facility]IA [id number] [address] [address] [place] Oxygen (BldV) [Partial pressure] 37 mm[Hg] Normal 35-[address] [facility] Comment on above: Order Comment: Speci men Type: VENOUS BLOOD SPECIMENOrdering Facility: [facility] Address: [address] [place], [place] [address] Performed By: #### 2 4344-4 ####[facility] LABIA [id number] [address] [address] [place] Oxygen saturation in Venous blood 59 % Low 60-[address] [facility] Comment on above: Order Comment: Speci men Type: VENOUS BLOOD SPECIMENOrdering Facility: [facility] Address: [address] [place] [address] Performed By: #### 2 4344-4 ####[facility]IA [id number] [address] [address] [place] Oxyhemoglobin (BldV) [Mass fraction] 58 % Low 60-[address] [facility] Comment on above: Order Comment: Speci men Type: VENOUS BLOOD SPECIMENOrdering Facility: [facility] Address: [address] [place], [place] [address] Performed By: #### 2 4344-4 ####[facility]IA [id number] [place] [id number] [place] pH (BldV) 7.31 [pH] Low 7.32-7.[address] [facility] Comment on above: Order Comment: Speci men Type: VENOUS BLOOD SPECIMENOrdering Facility: [facility] Address: [address] [place], [place] [address] Performed By: #### 2 4344-4 ####[facility]IA [id number] [place] [id number] [place] Potassium [Moles/Vol] 3.6 mmol/L Normal 3.5-5.0 [facility] Comment on above: Order Comment: Speci men Type: VENOUS BLOOD SPECIMENOrdering Facility: [facility] Address: [address] [place] [address] Performed By: #### 2 4344-4 ####[facility]IA [id number] [place] [id number] [place] Base excess Calc (BldV) [Moles/Vol] 2 mmol/L Normal 0-[address] [facility] Comment on above: Order Comment: Speci men Type: VENOUS BLOOD SPECIMENOrdering Facility: [facility] Address: [address] [place] [address] Performed By: #### 2 4344-4 ####[facility] LABCLIA [id number] [place] [address] [place] Calcium.ionized (Bld) [Mass/Vol] 1.18 mmol/L Normal 1.08-1.[address] [facility] Comment on above: Order Comment: Speci men Type: VENOUS BLOOD SPECIMENOrdering Facility: [facility] Address: [address] [place] [address] Performed By: #### 2 4344-4 ####[facility]IA [id number] [place] [address] [place] Calcium.ionized adjusted to pH 7.4 (BldA) [Moles/Vol] 1.13 mmol/L Normal 1.08-1.[address] [facility] Comment on above: Order Comment: Speci men Type: VENOUS BLOOD SPECIMENOrdering Facility: [facility] Address: [address] [place] [address] Performed By: #### 2 4344-4 ####[facility]IA [id number] [place] [address] [place] Carboxyhemoglobin (BldV) [Mass fraction] 1.4 % Normal 0.0-2.[address] [facility] Comment on above: Order Comment: Speci men Type: VENOUS BLOOD SPECIMENOrdering Facility: [facility] Address: [address] [place] [address] Result Comment: Carb oxyhemoglobin Reference Range for Smokers: 2.0-8.0% Performed By: #### 2 4344-4 ####[facility]IA [id number] [place] [address] [place] CO2 (BldV) [Partial pressure] 56 mm[Hg] High 42-[address] [facility] Comment on above: Order Comment: Speci men Type: VENOUS BLOOD SPECIMENOrdering Facility: [facility] Address: [address] [place] [address] Performed By: #### 2 4344-4 ####[facility] LABCLIA [id number] [address] [place] [address] [place] Glucose [Mass/Vol] 63 mg/dL Normal 60-105 [facility] Comment on above: Order Comment: Speci men Type: VENOUS BLOOD SPECIMENOrdering Facility: [facility] Address: [address] [place] [address] Performed By: #### 2 4344-4 ####[facility] LABCLIA [id number] [address] [place] [address] [place] HCO3 (Bld) [Moles/Vol] 28 mmol/L Normal 24-28 [facility] Comment on above: Order Comment: Speci men Type: VENOUS BLOOD SPECIMENOrdering Facility: [facility] Address: [address] [place] [address] Performed By: #### 2 4344-4 ####[facility] LABCLIA [id number] [address], [facility]95 [place] Hematocrit (Bld) [Volume fraction] 26.3 % Low 36.0-46.[address] [facility] Comment on above: Order Comment: Speci men Type: VENOUS BLOOD SPECIMENOrdering Facility: [facility] Address: [address] [place] [address] Performed By: #### 2 4344-4 ####[facility] LABCLIA [id number] [address], [facility]95 [place] Hemoglobin (Bld) [Mass/Vol] 8.5 g/dL Low 11.5-15.[address] [facility] Comment on above: Order Comment: Speci men Type: VENOUS BLOOD SPECIMENOrdering Facility: [facility] Address: [address] [place] [address] Performed By: #### 2 4344-4 ####[facility] LABCLIA [id number] [address], [facility]95 [place] Methemoglobin (Bld) [Mass fraction] 1.2 % Normal 0.0-1.[address] [facility] Comment on above: Order Comment: Speci men Type: VENOUS BLOOD SPECIMENOrdering Facility: [facility] Address: [address] [place] [address] Performed By: #### 2 4344-4 ####[facility] LABCLIA [id number] [address] [address] [place] Oxygen (BldV) [Partial pressure] 39 mm[Hg] Normal 35-[address] [facility] Comment on above: Order Comment: Speci men Type: VENOUS BLOOD SPECIMENOrdering Facility: [facility] Address: [address] [place] [address] Performed By: #### 2 4344-4 ####[facility] LABCLIA [id number] [place] [id number] [place] Oxygen saturation in Venous blood 64 % Normal 60-[address] [facility] Comment on above: Order Comment: Speci men Type: VENOUS BLOOD SPECIMENOrdering Facility: [facility] Address: [address] [place] [address] Performed By: #### 2 4344-4 ####[facility] LABCLIA [id number] [place] [id number] [place] Oxyhemoglobin (BldV) [Mass fraction] 62 % Normal 60-[address] [facility] Comment on above: Order Comment: Speci men Type: VENOUS BLOOD SPECIMENOrdering Facility: [facility] Address: [address] [place] [address] Performed By: #### 2 4344-4 ####[facility] LABCLIA [id number] [place] [id number] [place] pH (BldV) 7.32 [pH] Normal 7.32-7.[address] [facility] Comment on above: Order Comment: Speci men Type: VENOUS BLOOD SPECIMENOrdering Facility: [facility] Address: [address] [place] [address] Performed By: #### 2 4344-4 ####[facility]IA [id number] [place] [address] [place] Base excess Calc (BldV) [Moles/Vol] 2 mmol/L Normal 0-[address] [facility] Comment on above: Order Comment: Speci men Type: VENOUS BLOOD SPECIMENOrdering Facility: [facility] Address: [address] [place] [address] Performed By: #### 2 4344-4 ####[facility] [id number] [place] [address] [place] Calcium.ionized (Bld) [Mass/Vol] 1.13 mmol/L Normal 1.08-1.[address] [facility] Comment on above: Order Comment: Speci men Type: VENOUS BLOOD SPECIMENOrdering Facility: [facility] Address: [address] [place] [address] Performed By: #### 2 4344-4 ####[facility] [id number] [place] [address] [place] Calcium.ionized adjusted to pH 7.4 (BldA) [Moles/Vol] 1.10 mmol/L Normal 1.08-1.[address] [facility] Comment on above: Order Comment: Speci men Type: VENOUS BLOOD SPECIMENOrdering Facility: [facility] Address: [address] [place] [address] Performed By: #### 2 4344-4 ####[facility] [id number] [place] [address] [place] Carboxyhemoglobin (BldV) [Mass fraction] 1.3 % Normal 0.0-2.[address] [facility] Comment on above: Order Comment: Speci men Type: VENOUS BLOOD SPECIMENOrdering Facility: [facility] Address: [address] [place] [address] Result Comment: Carb oxyhemoglobin Reference Range for Smokers: 2.0-8.0% Performed By: #### 2 4344-4 ####[facility] LABCLIA [id number] [place] [id number] [place] CO2 (BldV) [Partial pressure] 52 mm[Hg] Normal 42-[address] [facility] Comment on above: Order Comment: Speci men Type: VENOUS BLOOD SPECIMENOrdering Facility: [facility] Address: [address] [place] [address] Performed By: #### 2 4344-4 ####[facility] LABCLIA [id number] [place] [id number] [place] Glucose [Mass/Vol] 88 mg/dL Normal 60-105 [facility] Comment on above: Order Comment: Speci men Type: VENOUS BLOOD SPECIMENOrdering Facility: [facility] Address: [address] [place] [address] Performed By: #### 2 4344-4 ####[facility] LABCLIA [id number] [place] [address] [place] HCO3 (Bld) [Moles/Vol] 28 mmol/L Normal 24-28 [facility] Comment on above: Order Comment: Speci men Type: VENOUS BLOOD SPECIMENOrdering Facility: [facility] Address: [address] [place] [address] Performed By: #### 2 4344-4 ####[facility] LABCLIA [id number] [place] [id number] [place] Hematocrit (Bld) [Volume fraction] 26.2 % Low 36.0-46.[address] [facility] Comment on above: Order Comment: Speci men Type: VENOUS BLOOD SPECIMENOrdering Facility: [facility] Address: [address] [place] [address] Performed By: #### 2 4344-4 ####[facility] LABCLIA [id number] [place] [id number] [place] Hemoglobin (Bld) [Mass/Vol] 8.4 g/dL Low 11.5-15.[address] [facility] Comment on above: Order Comment: Speci men Type: VENOUS BLOOD SPECIMENOrdering Facility: [facility] Address: [address] [place] [address] Performed By: #### 2 4344-4 ####[facility] LABCLIA [id number] [place] [address] [place] Lactate [Moles/Vol] 0.5 mmol/L Normal 0.5-2.2 [facility] Comment on above: Order Comment: Speci men Type: VENOUS BLOOD SPECIMENOrdering Facility: [facility] Address: [address] [place] [address] Performed By: #### 2 4344-4 ####[facility]IA [id number] [place] [address] [place] Methemoglobin (Bld) [Mass fraction] 1.1 % Normal 0.0-1.[address] [facility] Comment on above: Order Comment: Speci men Type: VENOUS BLOOD SPECIMENOrdering Facility: [facility] Address: [address] [place] [address] Performed By: #### 2 4344-4 ####[facility]IA [id number] [place] [address] [place] Oxygen (BldV) [Partial pressure] 40 mm[Hg] Normal 35-[address] [facility] Comment on above: Order Comment: Speci men Type: VENOUS BLOOD SPECIMENOrdering Facility: [facility] Address: [address] [place] [address] Performed By: #### 2 4344-4 ####[facility]IA [id number] [place] [id number] [place] Oxygen saturation in Venous blood 68 % Normal 60-[address] [facility] Comment on above: Order Comment: Speci men Type: VENOUS BLOOD SPECIMENOrdering Facility: [facility] Address: [address] [place] [address] Performed By: #### 2 4344-4 ####[facility] LABCLIA [id number] [place] [address] [place] Oxyhemoglobin (BldV) [Mass fraction] 66 % Normal 60-[address] [facility] Comment on above: Order Comment: Speci men Type: VENOUS BLOOD SPECIMENOrdering Facility: [facility] Address: [address] [place] [address] Performed By: #### 2 4344-4 ####[facility]IA [id number] [place] [address] [place] pH (BldV) 7.35 [pH] Normal 7.32-7.[address] [facility] Comment on above: Order Comment: Speci men Type: VENOUS BLOOD SPECIMENOrdering Facility: [facility] Address: [address] [place] [address] Performed By: #### 2 4344-4 ####[facility] LABIA [id number] [place] [address] [place] Potassium [Moles/Vol] 4.0 mmol/L Normal 3.5-5.0 [facility] Comment on above: Order Comment: Speci men Type: VENOUS BLOOD SPECIMENOrdering Facility: [facility] Address: [address] [place] [address] Performed By: #### 2 4344-4 ####[facility] LABCLIA [id number] [place] [id number] [place] Base excess Calc (BldV) [Moles/Vol] 2 mmol/L Normal 0-[address] [facility] [facility] [facility] Comment on above: Order Comment: Speci men Type: VENOUS BLOOD SPECIMENOrdering Facility: [facility] Address: [address] [place] [address] Performed By: #### 2 4344-4 ####[facility] LABIA [id number] [place] [address] [place] Calcium.ionized (Bld) [Mass/Vol] 1.13 mmol/L Normal 1.08-1.[address] [facility] Comment on above: Order Comment: Speci men Type: VENOUS BLOOD SPECIMENOrdering Facility: [facility] Address: [address] [place] [address] Performed By: #### 2 4344-4 ####[facility] LABIA [id number] [place] [address] [place] Calcium.ionized adjusted to pH 7.4 (BldA) [Moles/Vol] 1.09 mmol/L Normal 1.08-1.[address] [facility] Comment on above: Order Comment: Speci men Type: VENOUS BLOOD SPECIMENOrdering Facility: [facility] Address: [address] [place] [address] Performed By: #### 2 4344-4 ####[facility] LABIA [id number] [place] [address] [place] Carboxyhemoglobin (BldV) [Mass fraction] 1.4 % Normal 0.0-2.[address] [facility] Comment on above: Order Comment: Speci men Type: VENOUS BLOOD SPECIMENOrdering Facility: [facility] Address: [address] [place] [address] Result Comment: Carb oxyhemoglobin Reference Range for Smokers: 2.0-8.0% Performed By: #### 2 4344-4 ####[facility] LABIA [id number] [place] [address] [place] CO2 (BldV) [Partial pressure] 56 mm[Hg] High 42-[address] [facility] Comment on above: Order Comment: Speci men Type: VENOUS BLOOD SPECIMENOrdering Facility: [facility] Address: [address] [place] [address] Performed By: #### 2 4344-4 ####[facility] LABIA [id number] [place] [address] [place] Glucose [Mass/Vol] 60 mg/dL Normal 60-105 [facility] Comment on above: Order Comment: Speci men Type: VENOUS BLOOD SPECIMENOrdering Facility: [facility] Address: [address] [place] [address] Performed By: #### 2 4344-4 ####[facility] LABCLIA [id number] [place] [address] [place] HCO3 (Bld) [Moles/Vol] 28 mmol/L Normal 24-28 [facility] Comment on above: Order Comment: Speci men Type: VENOUS BLOOD SPECIMENOrdering Facility: [facility] Address: [address] [place] [address] Performed By: #### 2 4344-4 ####[facility] LABCLIA [id number] [place] [address] [place] Hematocrit (Bld) [Volume fraction] 26.0 % Low 36.0-46.[address] [facility] Comment on above: Order Comment: Speci men Type: VENOUS BLOOD SPECIMENOrdering Facility: [facility] Address: [address] [place] [address] Performed By: #### 2 4344-4 ####[facility] LABIA [id number] [place] [address] [place] Hemoglobin (Bld) [Mass/Vol] 8.4 g/dL Low 11.5-15.[address] [facility] Comment on above: Order Comment: Speci men Type: VENOUS BLOOD SPECIMENOrdering Facility: [facility] Address: [address] [place] [address] Performed By: #### 2 4344-4 ####[facility] LABIA [id number] [place] [id number] [place] Lactate [Moles/Vol] 0.6 mmol/L Normal 0.5-2.2 [facility] Comment on above: Order Comment: Speci men Type: VENOUS BLOOD SPECIMENOrdering Facility: [facility] Address: [address] [place], [place] [address] Performed By: #### 2 4344-4 ####[facility] LABCLIA [id number] [address] [place] [address] [place] Methemoglobin (Bld) [Mass fraction] 0.8 % Normal 0.0-1.[address] [facility] Comment on above: Order Comment: Speci men Type: VENOUS BLOOD SPECIMENOrdering Facility: [facility] Address: [address] [place], [place] [address] Performed By: #### 2 4344-4 ####[facility] LABCLIA [id number] [place] [id number] [place] Oxygen (BldV) [Partial pressure] 42 mm[Hg] Normal 35-[address] [facility] Comment on above: Order Comment: Speci men Type: VENOUS BLOOD SPECIMENOrdering Facility: [facility] Address: [address] [place] [address] Performed By: #### 2 4344-4 ####[facility] LABCLIA [id number] [address], [facility] [place] Oxygen saturation in Venous blood 71 % Normal 60-[address] [facility] Comment on above: Order Comment: Speci men Type: VENOUS BLOOD SPECIMENOrdering Facility: [facility] Address: [address] [place], [place] [address] Performed By: #### 2 4344-4 ####[facility] LABCLIA [id number] [address] [place] [address] [place] Oxyhemoglobin (BldV) [Mass fraction] 69 % Normal 60-[address] [facility] Comment on above: Order Comment: Speci men Type: VENOUS BLOOD SPECIMENOrdering Facility: [facility] Address: [address] [place], [place] [address] Performed By: #### 2 4344-4 ####[facility] LABCLIA [id number] [address] [address] [place] pH (BldV) 7.32 [pH] Normal 7.32-7.[address] [facility] Comment on above: Order Comment: Speci men Type: VENOUS BLOOD SPECIMENOrdering Facility: [facility] Address: [address] [place] [address] Performed By: #### 2 4344-4 ####[facility] LABCLIA [id number] [place] [address] [place] Potassium [Moles/Vol] 3.6 mmol/L Normal 3.5-5.0 [facility] Comment on above: Order Comment: Speci men Type: VENOUS BLOOD SPECIMENOrdering Facility: [facility] Address: [address] [place] [address] Performed By: #### 2 4344-4 ####[facility] LABIA [id number] [place] [address] [place] Sodium [Moles/Vol] 130 mmol/L Low 136-144 [facility] Comment on above: Order Comment: Speci men Type: VENOUS BLOOD SPECIMENOrdering Facility: [facility] Address: [address] [place] [address] Performed By: #### 2 4344-4 ####[facility] LABIA [id number] [place] [id number] [place] XR CHEST 1V FRONTAL PORTon 0 09-06-2024 XR CHEST 1V FRONTAL PORT Normal [facility] ALLIED HEALTHon 09-05-2024 ALLIED HEALTH Normal [facility] ALLIED HEALTH HNO ID: [id number] Author: LEXY MORALES Chaplain Service: Process Group Author Type: Type: Allied Health Filed: 09/05/2024 15:03 Note Text: The patient was anointed. Normal [facility] ARTERIAL BLOOD GASESon 09-05 Base excess Calc (Bld) [Moles/Vol] 2 mmol/L Normal 0-[address] [facility] Comment on above: Order Comment: Speci men Type: ARTERIAL BLOOD SPECIMENOrdering Facility: [facility] Address: [address] [place] [address] Performed By: #### A LLBG ####[facility] LABCLIA [id number] [place] [id number] [place] Body temperature 98.6 [degF] Normal [facility] Comment on above: Order Comment: Speci men Type: ARTERIAL BLOOD SPECIMENOrdering Facility: [facility] Address: [address] [place] [address] Performed By: #### A LLBG ####[facility] LABCLIA [id number] [address] [place] Order Comment: Speci men Type: VENOUS BLOOD SPECIMENOrdering Facility: [facility] Address: [address] [place] [address] Performed By: #### 2 4344-4 ####[facility] LABCLIA [id number] [address] [place] Calcium.ionized (Bld) [Mass/Vol] 1.14 mmol/L Normal 1.08-1.[address] [facility] Comment on above: Order Comment: Speci men Type: ARTERIAL BLOOD SPECIMENOrdering Facility: [facility] Address: [address] [place] [address] Performed By: #### A LLBG ####[facility] LABCLIA [id number] [address] [place] Calcium.ionized adjusted to pH 7.4 (BldA) [Moles/Vol] 1.16 mmol/L Normal 1.08-1.[address] [facility] Comment on above: Order Comment: Speci men Type: ARTERIAL BLOOD SPECIMENOrdering Facility: [facility] Address: [address] [place] [address] Performed By: #### A LLBG ####[facility] LABCLIA [id number] [place] [id number] [place] Carboxyhemoglobin (BldA) [Mass fraction] 1.4 % Normal 0.0-2.[address] [facility] Comment on above: Order Comment: Speci men Type: ARTERIAL BLOOD SPECIMENOrdering Facility: [facility] Address: [address] [place] [address] Result Comment: Carb oxyhemoglobin Reference Range for Smokers: 2.0-8.0% Performed By: #### A LLBG ####[facility] LABCLIA [id number] [place] [address] [place] CO2 (Bld) [Partial pressure] 41 mm Hg Normal 36-[address] [facility] Comment on above: Order Comment: Speci men Type: ARTERIAL BLOOD SPECIMENOrdering Facility: [facility] Address: [address] [place] [address] Performed By: #### A LLBG ####[facility] LABCLIA [id number] [place] [address] [place] Glucose [Mass/Vol] 67 mg/dL Normal 60-105 [facility] Comment on above: Order Comment: Speci men Type: ARTERIAL BLOOD SPECIMENOrdering Facility: [facility] Address: [address] [place] [address] Performed By: #### A LLBG ####[facility] LABCLIA [id number] [place] [address] [place] HCO3 (Bld) [Moles/Vol] 26 mmol/L Normal 22-26 [facility] Comment on above: Order Comment: Speci men Type: ARTERIAL BLOOD SPECIMENOrdering Facility: [facility] Address: [address] [place] [address] Performed By: #### A LLBG ####[facility] LABCLIA [id number] [place] [address] [place] Hematocrit (Bld) [Volume fraction] 27.1 % Low 36.0-46.[address] [facility] Comment on above: Order Comment: Speci men Type: ARTERIAL BLOOD SPECIMENOrdering Facility: [facility] Address: [address] [place] [address] Performed By: #### A LLBG ####[facility] LABCLIA [id number] [place] [id number] [place] Hemoglobin (Bld) [Mass/Vol] 8.7 g/dL Low 11.5-15.[address] [facility] Comment on above: Order Comment: Speci men Type: ARTERIAL BLOOD SPECIMENOrdering Facility: [facility] Address: [address] [place] [address] Performed By: #### A LLBG ####[facility] LABIA [id number] [place] [address] [place] Lactate [Moles/Vol] 0.5 mmol/L Normal 0.5-2.2 [facility] Comment on above: Order Comment: Speci men Type: ARTERIAL BLOOD SPECIMENOrdering Facility: [facility] Address: [address] [place] [address] Performed By: #### A LLBG ####[facility] LABIA [id number] [place] [address] [place] Methemoglobin (Bld) [Mass fraction] 1.2 % Normal 0.0-1.[address] [facility] Comment on above: Order Comment: Speci men Type: ARTERIAL BLOOD SPECIMENOrdering Facility: [facility] Address: [address] [place] [address] Performed By: #### A LLBG ####[facility] LABCLIA [id number] [place] [id number] [place] O2 THERAPY Positive Normal [facility] Comment on above: Order Comment: Speci men Type: ARTERIAL BLOOD SPECIMENOrdering Facility: [facility] Address: [address] [place] [address] Performed By: #### A LLBG ####[facility] LABCLIA [id number] [address] [place] [address] [place] Order Comment: Speci men Type: VENOUS BLOOD SPECIMENOrdering Facility: [facility] Address: [address] [place] [address] Performed By: #### 2 4344-4 ####[facility] LABCLIA [id number] [address] [address] [place] Oxygen (Bld) [Partial pressure] 122 mm Hg High 85-[address] [facility] Comment on above: Order Comment: Speci men Type: ARTERIAL BLOOD SPECIMENOrdering Facility: [facility] Address: [address] [place] [address] Performed By: #### A LLBG ####[facility] LABIA [id number] [place] [id number] [place] Oxyhemoglobin (BldA) [Mass fraction] 96 % Normal 95-[address] [facility] Comment on above: Order Comment: Speci men Type: ARTERIAL BLOOD SPECIMENOrdering Facility: [facility] Address: [address] [place] [address] Performed By: #### A LLBG ####[facility] LABIA [id number] [place] [id number] [place] pH (Bld) 7.42 [pH] Normal 7.35-7.[address] [facility] Comment on above: Order Comment: Speci men Type: ARTERIAL BLOOD SPECIMENOrdering Facility: [facility] Address: [address] [place] [address] Performed By: #### A LLBG ####[facility] LABCLIA [id number] [place] [id number] [place] Potassium [Moles/Vol] 3.8 mmol/L Normal 3.5-5.0 [facility] Comment on above: Order Comment: Speci men Type: ARTERIAL BLOOD SPECIMENOrdering Facility: [facility] Address: [address] [place] [address] Performed By: #### A LLBG ####[facility] LABCLIA [id number] [address] [address] [place] Order Comment: Speci men Type: VENOUS BLOOD SPECIMENOrdering Facility: [facility] Address: [address] [place], [place] [address] Performed By: #### 2 4344-4 ####[facility] LABCLIA [id number] [place] [id number] [place] Sodium [Moles/Vol] 130 mmol/L Low 136-144 [facility] Comment on above: Order Comment: Speci men Type: ARTERIAL BLOOD SPECIMENOrdering Facility: [facility] Address: [address] [place] [address] Performed By: #### A LLBG ####[facility] LABCLIA [id number] [place] [id number] [place] Base excess Calc (Bld) [Moles/Vol] 2 mmol/L Normal 0-[address] [facility] Comment on above: Order Comment: Speci men Type: ARTERIAL BLOOD SPECIMENOrdering Facility: [facility] Address: [address] [place] [address] Performed By: #### A LLBG ####[facility] LABCLIA [id number] [place] [id number] [place] Body temperature 98.6 [degF] Normal [facility] Comment on above: Order Comment: Speci men Type: ARTERIAL BLOOD SPECIMENOrdering Facility: [facility] Address: [address] [place], [place] [address] Performed By: #### A LLBG ####[facility] LABCLIA [id number] [place] [id number] [place] Order Comment: Speci men Type: VENOUS BLOOD SPECIMENOrdering Facility: [facility] Address: [address] [place], [place] [address] Performed By: #### 2 4344-4 ####[facility] LABCLIA [id number] [place] [address] [place] Calcium.ionized (Bld) [Mass/Vol] 1.13 mmol/L Normal 1.08-1.[address] [facility] Comment on above: Order Comment: Speci men Type: ARTERIAL BLOOD SPECIMENOrdering Facility: [facility] Address: [address] [place] [address] Performed By: #### A LLBG ####[facility] [id number] [place] [address] [place] Calcium.ionized adjusted to pH 7.4 (BldA) [Moles/Vol] 1.16 mmol/L Normal 1.08-1.[address] [facility] Comment on above: Order Comment: Speci men Type: ARTERIAL BLOOD SPECIMENOrdering Facility: [facility] Address: [address] [place] [address] Performed By: #### A LLBG ####[facility] [id number] [place] [address] [place] Carboxyhemoglobin (BldA) [Mass fraction] 1.9 % Normal 0.0-2.[address] [facility] Comment on above: Order Comment: Speci men Type: ARTERIAL BLOOD SPECIMENOrdering Facility: [facility] Address: [address] [place] [address] Result Comment: Carb oxyhemoglobin Reference Range for Smokers: 2.0-8.0% Performed By: #### A LLBG ####[facility] LABIA [id number] [place] [address] [place] CO2 (Bld) [Partial pressure] 35 mm Hg Low 36-[address] [facility] Comment on above: Order Comment: Speci men Type: ARTERIAL BLOOD SPECIMENOrdering Facility: [facility] Address: [address] [place] [address] Performed By: #### A LLBG ####[facility] LABIA [id number] [id number] [address] [place] Glucose [Mass/Vol] 69 mg/dL Normal 60-105 [facility] Comment on above: Order Comment: Speci men Type: ARTERIAL BLOOD SPECIMENOrdering Facility: [facility] Address: [address] [place] [address] Performed By: #### A LLBG ####[facility] LABCLIA [id number] [place] [address] [place] HCO3 (Bld) [Moles/Vol] 25 mmol/L Normal 22-26 [facility] Comment on above: Order Comment: Speci men Type: ARTERIAL BLOOD SPECIMENOrdering Facility: [facility] Address: [address] [place] [address] Performed By: #### A LLBG ####[facility] LABCLIA [id number] [place] [address] [place] Hematocrit (Bld) [Volume fraction] 27.4 % Low 36.0-46.[address] [facility] Comment on above: Order Comment: Speci men Type: ARTERIAL BLOOD SPECIMENOrdering Facility: [facility] Address: [address] [place] [address] Performed By: #### A LLBG ####[facility] LABCLIA [id number] [place] [address] [place] Hemoglobin (Bld) [Mass/Vol] 8.8 g/dL Low 11.5-15.[address] [facility] Comment on above: Order Comment: Speci men Type: ARTERIAL BLOOD SPECIMENOrdering Facility: [facility] Address: [address] [place] [address] Performed By: #### A LLBG ####[facility] LABCLIA [id number] [place] [address] [place] Lactate [Moles/Vol] 0.9 mmol/L Normal 0.5-2.2 [facility] Comment on above: Order Comment: Speci men Type: ARTERIAL BLOOD SPECIMENOrdering Facility: [facility] Address: [address] [place] [address] Performed By: #### A LLBG ####[facility] LABCLIA [id number] [address] [place] [address] [place] Methemoglobin (Bld) [Mass fraction] 1.0 % Normal 0.0-1.[address] [facility] Comment on above: Order Comment: Speci men Type: ARTERIAL BLOOD SPECIMENOrdering Facility: [facility] Address: [address] [place] [address] Performed By: #### A LLBG ####[facility] LABCLIA [id number] [address], [facility] [place] O2 THERAPY NC = Nasal Cannula Normal [facility] Comment on above: Order Comment: Speci men Type: ARTERIAL BLOOD SPECIMENOrdering Facility: [facility] Address: [address] [place] [address] Performed By: #### A LLBG ####[facility] LABCLIA [id number] [address] [place] [address] [place] Order Comment: Speci men Type: VENOUS BLOOD SPECIMENOrdering Facility: [facility] Address: [address] [place] [address] Performed By: #### 2 4344-4 ####[facility] LABCLIA [id number] [address] [place] [address] [place] Oxygen (Bld) [Partial pressure] 109 mm Hg High 85-[address] [facility] Comment on above: Order Comment: Speci men Type: ARTERIAL BLOOD SPECIMENOrdering Facility: [facility] Address: [address] [place], [place] [address] Performed By: #### A LLBG ####[facility] LABCLIA [id number] [address] [place] [address] [place] Oxyhemoglobin (BldA) [Mass fraction] 96 % Normal 95-[address] [facility] Comment on above: Order Comment: Speci men Type: ARTERIAL BLOOD SPECIMENOrdering Facility: [facility] Address: [address] [place] [address] Performed By: #### A LLBG ####[facility] LABCLIA [id number] [place] [address] [place] pH (Bld) 7.46 [pH] High 7.35-7.[address] [facility] Comment on above: Order Comment: Speci men Type: ARTERIAL BLOOD SPECIMENOrdering Facility: [facility] Address: [address] [place] [address] Performed By: #### A LLBG ####[facility] LABCLIA [id number] [place] [address] [place] Potassium [Moles/Vol] 3.8 mmol/L Normal 3.5-5.0 [facility] Comment on above: Order Comment: Speci men Type: ARTERIAL BLOOD SPECIMENOrdering Facility: [facility] Address: [address] [place] [address] Performed By: #### A LLBG ####[facility] LABCLIA [id number] [place] [address] [place] Sodium [Moles/Vol] 132 mmol/L Low 136-144 [facility] Comment on above: Order Comment: Speci men Type: ARTERIAL BLOOD SPECIMENOrdering Facility: [facility] Address: [address] [place] [address] Performed By: #### A LLBG ####[facility] LABCLIA [id number] [place] [address] [place] Base excess Calc (Bld) [Moles/Vol] 2 mmol/L Normal 0-[address] [facility] Comment on above: Order Comment: Speci men Type: ARTERIAL BLOOD SPECIMENOrdering Facility: [facility] Address: [address] [place] [address] Performed By: #### A LLBG ####[facility] LABCLIA [id number] [place] [address] [place] Calcium.ionized (Bld) [Mass/Vol] 1.16 mmol/L Normal 1.08-1.[address] [facility] Comment on above: Order Comment: Speci men Type: ARTERIAL BLOOD SPECIMENOrdering Facility: [facility] Address: [address] [place] [address] Performed By: #### A LLBG ####[facility] LABCLIA [id number] [place] [address] [place] Calcium.ionized adjusted to pH 7.4 (BldA) [Moles/Vol] 1.13 mmol/L Normal 1.08-1.[address] [facility] Comment on above: Order Comment: Speci men Type: ARTERIAL BLOOD SPECIMENOrdering Facility: [facility] Address: [address] [place] [address] Performed By: #### A LLBG ####[facility] LABCLIA [id number] [place] [address] [place] Carboxyhemoglobin (BldA) [Mass fraction] 1.6 % Normal 0.0-2.[address] [facility] Comment on above: Order Comment: Speci men Type: ARTERIAL BLOOD SPECIMENOrdering Facility: [facility] Address: [address] [place] [address] Result Comment: Carb oxyhemoglobin Reference Range for Smokers: 2.0-8.0% Performed By: #### A LLBG ####[facility] LABCLIA [id number] [place] [address] [place] CO2 (Bld) [Partial pressure] 51 mm Hg High 36-[address] [facility] Comment on above: Order Comment: Speci men Type: ARTERIAL BLOOD SPECIMENOrdering Facility: [facility] Address: [address] [place] [address] Performed By: #### A LLBG ####[facility] LABCLIA [id number] [place] [address] [place] Glucose [Mass/Vol] 76 mg/dL Normal 60-105 [facility] Comment on above: Order Comment: Speci men Type: ARTERIAL BLOOD SPECIMENOrdering Facility: [facility] Address: [address] [place] [address] Performed By: #### A LLBG ####[facility] LABCLIA [id number] [place] [id number] [place] HCO3 (Bld) [Moles/Vol] 27 mmol/L High 22-26 [facility] Comment on above: Order Comment: Speci men Type: ARTERIAL BLOOD SPECIMENOrdering Facility: [facility] Address: [address] [place] [address] Performed By: #### A LLBG ####[facility] LABCLIA [id number] [place] [address] [place] Hematocrit (Bld) [Volume fraction] 27.9 % Low 36.0-46.[address] [facility] Comment on above: Order Comment: Speci men Type: ARTERIAL BLOOD SPECIMENOrdering Facility: [facility] Address: [address] [place] [address] Performed By: #### A LLBG ####[facility] LABCLIA [id number] [place] [id number] [place] Hemoglobin (Bld) [Mass/Vol] 9.0 g/dL Low 11.5-15.[address] [facility] Comment on above: Order Comment: Speci men Type: ARTERIAL BLOOD SPECIMENOrdering Facility: [facility] Address: [address] [place], [place] [address] Performed By: #### A LLBG ####[facility] LABCLIA [id number] [place] [id number] [place] Lactate [Moles/Vol] 0.6 mmol/L Normal 0.5-2.2 [facility] Comment on above: Order Comment: Speci men Type: ARTERIAL BLOOD SPECIMENOrdering Facility: [facility] Address: [address] [place] [address] Performed By: #### A LLBG ####[facility] LABIA [id number] [place] [address] [place] Methemoglobin (Bld) [Mass fraction] 1.9 % High 0.0-1.[address] [facility] Comment on above: Order Comment: Speci men Type: ARTERIAL BLOOD SPECIMENOrdering Facility: [facility] Address: [address] [place] [address] Performed By: #### A LLBG ####[facility] LABIA [id number] [place] [address] [place] Oxygen (Bld) [Partial pressure] 119 mm Hg High 85-[address] [facility] Comment on above: Order Comment: Speci men Type: ARTERIAL BLOOD SPECIMENOrdering Facility: [facility] Address: [address] [place] [address] Performed By: #### A LLBG ####[facility] LABIA [id number] [place] [id number] [place] Oxyhemoglobin (BldA) [Mass fraction] 95 % Normal 95-[address] [facility] Comment on above: Order Comment: Speci men Type: ARTERIAL BLOOD SPECIMENOrdering Facility: [facility] Address: [address] [place] [address] Performed By: #### A LLBG ####[facility] LABIA [id number] [place] [id number] [place] pH (Bld) 7.35 [pH] Normal 7.35-7.[address] [facility] Comment on above: Order Comment: Speci men Type: ARTERIAL BLOOD SPECIMENOrdering Facility: [facility] Address: [address] [place] [address] Performed By: #### A LLBG ####[facility] LABIA [id number] [place] [id number] [place] Potassium [Moles/Vol] 3.9 mmol/L Normal 3.5-5.0 [facility] Comment on above: Order Comment: Speci men Type: ARTERIAL BLOOD SPECIMENOrdering Facility: [facility] Address: [address] [place] [address] Performed By: #### A LLBG ####[facility] LABCLIA [id number] [place] [address] [place] Sodium [Moles/Vol] 132 mmol/L Low 136-144 [facility] Comment on above: Order Comment: Speci men Type: ARTERIAL BLOOD SPECIMENOrdering Facility: [facility] Address: [address] [place] [address] Performed By: #### A LLBG ####[facility] LABCLIA [id number] [place] [address] [place] Base excess Calc (Bld) [Moles/Vol] 2 mmol/L Normal 0-[address] [facility] Comment on above: Order Comment: Speci men Type: ARTERIAL BLOOD SPECIMENOrdering Facility: [facility] Address: [address] [place] [address] Performed By: #### A LLBG ####[facility] LABCLIA [id number] [place] [address] [place] Body temperature 98.6 [degF] Normal [facility] Comment on above: Order Comment: Speci men Type: ARTERIAL BLOOD SPECIMENOrdering Facility: [facility] Address: [address] [place] [address] Performed By: #### A LLBG ####[facility] LABCLIA [id number] [place] [address] [place] Order Comment: Speci men Type: VENOUS BLOOD SPECIMENOrdering Facility: [facility] Address: [address] [place] [address] Performed By: #### 2 4344-4 ####[facility] LABCLIA [id number] [place] [address] [place] Calcium.ionized (Bld) [Mass/Vol] 1.16 mmol/L Normal 1.08-1.[address] [facility] Comment on above: Order Comment: Speci men Type: ARTERIAL BLOOD SPECIMENOrdering Facility: [facility] Address: [address] [place] [address] Performed By: #### A LLBG ####[facility] LABCLIA [id number] [place] [address] [place] Calcium.ionized adjusted to pH 7.4 (BldA) [Moles/Vol] 1.15 mmol/L Normal 1.08-1.[address] [facility] Comment on above: Order Comment: Speci men Type: ARTERIAL BLOOD SPECIMENOrdering Facility: [facility] Address: [address] [place] [address] Performed By: #### A LLBG ####[facility] LABCLIA [id number] [place] [address] [place] Carboxyhemoglobin (BldA) [Mass fraction] 1.4 % Normal 0.0-2.[address] [facility] Comment on above: Order Comment: Speci men Type: ARTERIAL BLOOD SPECIMENOrdering Facility: [facility] Address: [address] [place] [address] Result Comment: Carb oxyhemoglobin Reference Range for Smokers: 2.0-8.0% Performed By: #### A LLBG ####[facility] LABCLIA [id number] [place] [address] [place] CO2 (Bld) [Partial pressure] 46 mm Hg Normal 36-[address] [facility] Comment on above: Order Comment: Speci men Type: ARTERIAL BLOOD SPECIMENOrdering Facility: [facility] Address: [address] [place] [address] Performed By: #### A LLBG ####[facility] LABCLIA [id number] [place] [address] [place] Glucose [Mass/Vol] 80 mg/dL Normal 60-105 [facility] Comment on above: Order Comment: Speci men Type: ARTERIAL BLOOD SPECIMENOrdering Facility: [facility] Address: [address] [place] [address] Performed By: #### A LLBG ####[facility] LABCLIA [id number] [facility] [address] [address] [place] HCO3 (Bld) [Moles/Vol] 27 mmol/L High 22-26 [facility] Comment on above: Order Comment: Speci men Type: ARTERIAL BLOOD SPECIMENOrdering Facility: [facility] Address: [address] [place] [address] Performed By: #### A LLBG ####[facility] LABCLIA [id number] [place] [id number] [place] Hematocrit (Bld) [Volume fraction] 27.5 % Low 36.0-46.[address] [facility] Comment on above: Order Comment: Speci men Type: ARTERIAL BLOOD SPECIMENOrdering Facility: [facility] Address: [address] [place] [address] Performed By: #### A LLBG ####[facility] LABCLIA [id number] [place] [id number] [place] Hemoglobin (Bld) [Mass/Vol] 8.9 g/dL Low 11.5-15.[address] [facility] Comment on above: Order Comment: Speci men Type: ARTERIAL BLOOD SPECIMENOrdering Facility: [facility] Address: [address] [place] [address] Performed By: #### A LLBG ####[facility] LABCLIA [id number] [place] [id number] [place] Lactate [Moles/Vol] 0.6 mmol/L Normal 0.5-2.2 [facility] Comment on above: Order Comment: Speci men Type: ARTERIAL BLOOD SPECIMENOrdering Facility: [facility] Address: [address] [place], [place] [address] Performed By: #### A LLBG ####[facility] LABCLIA [id number] [place] [id number] [place] Order Comment: Speci men Type: VENOUS BLOOD SPECIMENOrdering Facility: [facility] Address: [address] [place] [address] Performed By: #### 2 4344-4 ####[facility] LABCLIA [id number] [address], [facility]95 [place] Methemoglobin (Bld) [Mass fraction] 1.0 % Normal 0.0-1.[address] [facility] Comment on above: Order Comment: Speci men Type: ARTERIAL BLOOD SPECIMENOrdering Facility: [facility] Address: [address] [place] [address] Performed By: #### A LLBG ####[facility] LABCLIA [id number] [place] [address] [place] O2 THERAPY NC = Nasal Cannula Normal [facility] Comment on above: Order Comment: Speci men Type: ARTERIAL BLOOD SPECIMENOrdering Facility: [facility] Address: [address] [place] [address] Performed By: #### A LLBG ####[facility] LABCLIA [id number] [place] [id number] [place] Order Comment: Speci men Type: VENOUS BLOOD SPECIMENOrdering Facility: [facility] Address: [address] [place] [address] Performed By: #### 2 4344-4 ####[facility] LABCLIA [id number] [place] [phone] [place] Oxygen (Bld) [Partial pressure] 82 mm Hg Low 85-[address] [facility] Comment on above: Order Comment: Speci men Type: ARTERIAL BLOOD SPECIMENOrdering Facility: [facility] Address: [address] [place] [address] Performed By: #### A LLBG ####[facility] LABCLIA [id number] [address] [address] [place] Oxyhemoglobin (BldA) [Mass fraction] 93 % Low 95-[address] [facility] Comment on above: Order Comment: Speci men Type: ARTERIAL BLOOD SPECIMENOrdering Facility: [facility] Address: [address] [place] [address] Performed By: #### A LLBG ####[facility] LABCLIA [id number] [address] [address] [place] pH (Bld) 7.39 [pH] Normal 7.35-7.[address] [facility] Comment on above: Order Comment: Speci men Type: ARTERIAL BLOOD SPECIMENOrdering Facility: [facility] Address: [address] [place] [address] Performed By: #### A LLBG ####[facility] LABCLIA [id number] [place] [phone] [place] Potassium [Moles/Vol] 3.9 mmol/L Normal 3.5-5.0 [facility] Comment on above: Order Comment: Speci men Type: ARTERIAL BLOOD SPECIMENOrdering Facility: [facility] Address: [address] [place] [address] Performed By: #### A LLBG ####[facility] LABCLIA [id number] [place] [phone] [place] Order Comment: Speci men Type: VENOUS BLOOD SPECIMENOrdering Facility: [facility] Address: [address] [place], [place] [address] Performed By: #### 2 4344-4 ####[facility] LABIA [id number] [place] [phone] [place] Sodium [Moles/Vol] 133 mmol/L Low 136-144 [facility] Comment on above: Order Comment: Speci men Type: ARTERIAL BLOOD SPECIMENOrdering Facility: [facility] Address: [address] [place], [place] [address] Performed By: #### A LLBG ####[facility] LABCLIA [id number] [place] [id number] [facility] Order Comment: Speci men Type: VENOUS BLOOD SPECIMENOrdering Facility: [facility] Address: [address] [place] [address] Performed By: #### 2 4344-4 ####[facility] LABCLIA [id number] [place] [id number] [place] Base excess Calc (Bld) [Moles/Vol] 1 mmol/L Normal 0-[address] [facility] Comment on above: Order Comment: Speci men Type: ARTERIAL BLOOD SPECIMENOrdering Facility: [facility] Address: [address] [place] [address] Performed By: #### A LLBG ####[facility] LABCLIA [id number] [place] [id number] [place] Body temperature 98.6 [degF] Normal [facility] Comment on above: Order Comment: Speci men Type: ARTERIAL BLOOD SPECIMENOrdering Facility: [facility] Address: [address] [place] [address] Performed By: #### A LLBG ####[facility] LABCLIA [id number] [place] [phone] [place] Order Comment: Speci men Type: VENOUS BLOOD SPECIMENOrdering Facility: [facility] Address: [address] [place] [address] Performed By: #### 2 4344-4 ####[facility] LABCLIA [id number] [place] [phone] [place] Calcium.ionized (Bld) [Mass/Vol] 1.18 mmol/L Normal 1.08-1.[address] [facility] Comment on above: Order Comment: Speci men Type: ARTERIAL BLOOD SPECIMENOrdering Facility: [facility] Address: [address] [place] [address] Performed By: #### A LLBG ####[facility] [id number] [place] [address] [place] Calcium.ionized adjusted to pH 7.4 (BldA) [Moles/Vol] 1.15 mmol/L Normal 1.08-1.[address] [facility] Comment on above: Order Comment: Speci men Type: ARTERIAL BLOOD SPECIMENOrdering Facility: [facility] Address: [address] [place] [address] Performed By: #### A LLBG ####[facility] [id number] [place] [address] [place] Carboxyhemoglobin (BldA) [Mass fraction] 1.3 % Normal 0.0-2.[address] [facility] Comment on above: Order Comment: Speci men Type: ARTERIAL BLOOD SPECIMENOrdering Facility: [facility] Address: [address] [place] [address] Result Comment: Carb oxyhemoglobin Reference Range for Smokers: 2.0-8.0% Performed By: #### A LLBG ####[facility] [id number] [place] [address] [place] CO2 (Bld) [Partial pressure] 48 mm Hg High 36-[address] [facility] Comment on above: Order Comment: Speci men Type: ARTERIAL BLOOD SPECIMENOrdering Facility: [facility] Address: [address] [place] [address] Performed By: #### A LLBG ####[facility]UN[facility] [id number] [place] [address] [place] Glucose [Mass/Vol] 99 mg/dL Normal 60-105 [facility] Comment on above: Order Comment: Speci men Type: ARTERIAL BLOOD SPECIMENOrdering Facility: [facility] Address: [address] [place] [address] Performed By: #### A LLBG ####[facility] LABCLIA [id number] [address] [address] [place] HCO3 (Bld) [Moles/Vol] 26 mmol/L Normal 22-26 [facility] Comment on above: Order Comment: Speci men Type: ARTERIAL BLOOD SPECIMENOrdering Facility: [facility] Address: [address] [place] [address] Performed By: #### A LLBG ####[facility] LABCLIA [id number] [place] [id number] [place] Hematocrit (Bld) [Volume fraction] 28.3 % Low 36.0-46.[address] [facility] Comment on above: Order Comment: Speci men Type: ARTERIAL BLOOD SPECIMENOrdering Facility: [facility] Address: [address] [place] [address] Performed By: #### A LLBG ####[facility] LABCLIA [id number] [place] [address] [place] Hemoglobin (Bld) [Mass/Vol] 9.1 g/dL Low 11.5-15.[address] [facility] Comment on above: Order Comment: Speci men Type: ARTERIAL BLOOD SPECIMENOrdering Facility: [facility] Address: [address] [place] [address] Performed By: #### A LLBG ####[facility] LABCLIA [id number] [place] [phone] [place] Order Comment: Speci men Type: VENOUS BLOOD SPECIMENOrdering Facility: [facility] Address: [address] [place] [address] Performed By: #### 2 4344-4 ####[facility] LABIA [id number] [place] [phone] [place] Lactate [Moles/Vol] 0.6 mmol/L Normal 0.5-2.2 [facility] Comment on above: Order Comment: Speci men Type: ARTERIAL BLOOD SPECIMENOrdering Facility: [facility] Address: [address] [place], [place] [address] Performed By: #### A LLBG ####[facility] LABCLIA [id number] [address] [place] [address] [place] Methemoglobin (Bld) [Mass fraction] 0.6 % Normal 0.0-1.[address] [facility] Comment on above: Order Comment: Speci men Type: ARTERIAL BLOOD SPECIMENOrdering Facility: [facility] Address: [address] [place], [place] [address] Performed By: #### A LLBG ####[facility] LABCLIA [id number] [address] [place] [address] [place] O2 THERAPY NC = Nasal Cannula Normal [facility] Comment on above: Order Comment: Speci men Type: ARTERIAL BLOOD SPECIMENOrdering Facility: [facility] Address: [address] [place] [address] Performed By: #### A LLBG ####[facility] LABCLIA [id number] [address] [place] [address] [place] Order Comment: Speci men Type: VENOUS BLOOD SPECIMENOrdering Facility: [facility] Address: [address] [place], [place] [address] Performed By: #### 2 4344-4 ####[facility] LABCLIA [id number] [address] [place] [address] [place] Oxygen (Bld) [Partial pressure] 96 mm Hg High 85-[address] [facility] Comment on above: Order Comment: Speci men Type: ARTERIAL BLOOD SPECIMENOrdering Facility: [facility] Address: [address] [place], [place] [address] Performed By: #### A LLBG ####[facility] LABCLIA [id number] [address] [place] [address] [place] Oxyhemoglobin (BldA) [Mass fraction] 95 % Normal 95-[address] [facility] Comment on above: Order Comment: Speci men Type: ARTERIAL BLOOD SPECIMENOrdering Facility: [facility] Address: [address] [place] [address] Performed By: #### A LLBG ####[facility] LABCLIA [id number] [address] [address] [place] pH (Bld) 7.36 [pH] Normal 7.35-7.[address] [facility] Comment on above: Order Comment: Speci men Type: ARTERIAL BLOOD SPECIMENOrdering Facility: [facility] Address: [address] [place] [address] Performed By: #### A LLBG ####[facility] LABCLIA [id number] [place] [address] [place] Potassium [Moles/Vol] 3.8 mmol/L Normal 3.5-5.0 [facility] Comment on above: Order Comment: Speci men Type: ARTERIAL BLOOD SPECIMENOrdering Facility: [facility] Address: [address] [place] [address] Performed By: #### A LLBG ####[facility] LABCLIA [id number] [place] [address] [place] Order Comment: Speci men Type: VENOUS BLOOD SPECIMENOrdering Facility: [facility] Address: [address] [place] [address] Performed By: #### 2 4344-4 ####[facility] LABCLIA [id number] [place] [id number] [place] Sodium [Moles/Vol] 135 mmol/L Low 136-144 [facility] Comment on above: Order Comment: Speci men Type: ARTERIAL BLOOD SPECIMENOrdering Facility: [facility] Address: [address] [place] [address] Performed By: #### A LLBG ####[facility] LABCLIA [id number] [address] [address] [place] Base excess Calc (Bld) [Moles/Vol] 2 mmol/L Normal 0-[address] [facility] Comment on above: Order Comment: Speci men Type: ARTERIAL BLOOD SPECIMENOrdering Facility: [facility] Address: [address] [place] [address] Performed By: #### A LLBG ####[facility] LABCLIA [id number] [place] [address] [place] Body temperature 98.6 [degF] Normal [facility] Comment on above: Order Comment: Speci men Type: ARTERIAL BLOOD SPECIMENOrdering Facility: [facility] Address: [address] [place] [address] Performed By: #### A LLBG ####[facility] LABCLIA [id number] [place] [address] [place] Order Comment: Speci men Type: VENOUS BLOOD SPECIMENOrdering Facility: [facility] Address: [address] [place] [address] Performed By: #### 2 4344-4 ####[facility] LABCLIA [id number] [place] [address] [place] Calcium.ionized (Bld) [Mass/Vol] 1.16 mmol/L Normal 1.08-1.[address] [facility] Comment on above: Order Comment: Speci men Type: ARTERIAL BLOOD SPECIMENOrdering Facility: [facility] Address: [address] [place] [address] Performed By: #### A LLBG ####[facility] LABCLIA [id number] [place] [address] [place] Calcium.ionized adjusted to pH 7.4 (BldA) [Moles/Vol] 1.14 mmol/L Normal 1.08-1.[address] [facility] Comment on above: Order Comment: Speci men Type: ARTERIAL BLOOD SPECIMENOrdering Facility: [facility] Address: [address] [place] [address] Performed By: #### A LLBG ####[facility] LABCLIA [id number] [place] [address] [place] Carboxyhemoglobin (BldA) [Mass fraction] 1.4 % Normal 0.0-2.[address] [facility] Comment on above: Order Comment: Speci men Type: ARTERIAL BLOOD SPECIMENOrdering Facility: [facility] Address: [address] [place] [address] Result Comment: Carb oxyhemoglobin Reference Range for Smokers: 2.0-8.0% Performed By: #### A LLBG ####[facility] LABCLIA [id number] [place] [address] [place] CO2 (Bld) [Partial pressure] 46 mm Hg Normal 36-[address] [facility] Comment on above: Order Comment: Speci men Type: ARTERIAL BLOOD SPECIMENOrdering Facility: [facility] Address: [address] [place] [address] Performed By: #### A LLBG ####[facility] LABCLIA [id number] [place] [address] [place] Glucose [Mass/Vol] 103 mg/dL Normal 60-105 [facility] Comment on above: Order Comment: Speci men Type: ARTERIAL BLOOD SPECIMENOrdering Facility: [facility] Address: [address] [place] [address] Performed By: #### A LLBG ####[facility] LABCLIA [id number] [place] [address] [place] HCO3 (Bld) [Moles/Vol] 27 mmol/L High 22-26 [facility] Comment on above: Order Comment: Speci men Type: ARTERIAL BLOOD SPECIMENOrdering Facility: [facility] Address: [address] [place] [address] Performed By: #### A LLBG ####[facility] LABCLIA [id number] [place] [address] [place] Hematocrit (Bld) [Volume fraction] 29.2 % Low 36.0-46.[address] [facility] Comment on above: Order Comment: Speci men Type: ARTERIAL BLOOD SPECIMENOrdering Facility: [facility] Address: [address] [place] [address] Performed By: #### A LLBG ####[facility] LABCLIA [id number] [place] [address] [place] Hemoglobin (Bld) [Mass/Vol] 9.4 g/dL Low 11.5-15.[address] [facility] Comment on above: Order Comment: Speci men Type: ARTERIAL BLOOD SPECIMENOrdering Facility: [facility] Address: [address] [place] [address] Performed By: #### A LLBG ####[facility] LABCLIA [id number] [place] [address] [place] Lactate [Moles/Vol] 0.7 mmol/L Normal 0.5-2.2 [facility] Comment on above: Order Comment: Speci men Type: ARTERIAL BLOOD SPECIMENOrdering Facility: [facility] Address: [address] [place] [address] Performed By: #### A LLBG ####[facility] LABCLIA [id number] [place] [address] [place] Order Comment: Speci men Type: VENOUS BLOOD SPECIMENOrdering Facility: [facility] Address: [address] [place] [address] Performed By: #### 2 4344-4 ####[facility] LABCLIA [id number] [place] [id number] [place] Methemoglobin (Bld) [Mass fraction] 1.0 % Normal 0.0-1.[address] [facility] Comment on above: Order Comment: Speci men Type: ARTERIAL BLOOD SPECIMENOrdering Facility: [facility] Address: [address] [place] [address] Performed By: #### A LLBG ####[facility] LABCLIA [id number] [address] [place] [address] [place] Order Comment: Speci men Type: VENOUS BLOOD SPECIMENOrdering Facility: [facility] Address: [address] [place] [address] Performed By: #### 2 4344-4 ####[facility] LABCLIA [id number] [address] [place] [address] [place] O2 THERAPY NC = Nasal Cannula Normal [facility] Comment on above: Order Comment: Speci men Type: ARTERIAL BLOOD SPECIMENOrdering Facility: [facility] Address: [address] [place] [address] Performed By: #### A LLBG ####[facility] LABCLIA [id number] [address] [place] [address] [place] Order Comment: Speci men Type: VENOUS BLOOD SPECIMENOrdering Facility: [facility] Address: [address] [place] [address] Performed By: #### 2 4344-4 ####[facility] LABCLIA [id number] [address] [address] [place] Oxygen (Bld) [Partial pressure] 111 mm Hg High 85-[address] [facility] Comment on above: Order Comment: Speci men Type: ARTERIAL BLOOD SPECIMENOrdering Facility: [facility] Address: [address] [place] [address] Performed By: #### A LLBG ####[facility] LABCLIA [id number] [facility] [address] [place] [address] [place] Oxyhemoglobin (BldA) [Mass fraction] 96 % Normal 95-[address] [facility] Comment on above: Order Comment: Speci men Type: ARTERIAL BLOOD SPECIMENOrdering Facility: [facility] Address: [address] [place], [place] [address] Performed By: #### A LLBG ####[facility] LABCLIA [id number] [place] [address] [place] pH (Bld) 7.38 [pH] Normal 7.35-7.[address] [facility] Comment on above: Order Comment: Speci men Type: ARTERIAL BLOOD SPECIMENOrdering Facility: [facility] Address: [address] [place] [address] Performed By: #### A LLBG ####[facility] LABCLIA [id number] [place] [address] [place] Potassium [Moles/Vol] 4.0 mmol/L Normal 3.5-5.0 [facility] Comment on above: Order Comment: Speci men Type: ARTERIAL BLOOD SPECIMENOrdering Facility: [facility] Address: [address] [place] [address] Performed By: #### A LLBG ####[facility] LABCLIA [id number] [place] [address] [place] Order Comment: Speci men Type: VENOUS BLOOD SPECIMENOrdering Facility: [facility] Address: [address] [place] [address] Performed By: #### 2 4344-4 ####[facility] LABCLIA [id number] [place] [address] [place] Sodium [Moles/Vol] 134 mmol/L Low 136-144 [facility] Comment on above: Order Comment: Speci men Type: ARTERIAL BLOOD SPECIMENOrdering Facility: [facility] Address: [address] [place] [address] Performed By: #### A LLBG ####[facility] LABCLIA [id number] [place] [address] [place] Base excess Calc (Bld) [Moles/Vol] 1 mmol/L Normal 0-[address] [facility] Comment on above: Order Comment: Speci men Type: ARTERIAL BLOOD SPECIMENOrdering Facility: [facility] Address: [address] [place] [address] Performed By: #### A LLBG ####[facility] LABCLIA [id number] [place] [address] [place] Body temperature 98.6 [degF] Normal [facility] Comment on above: Order Comment: Speci men Type: ARTERIAL BLOOD SPECIMENOrdering Facility: [facility] Address: [address] [place] [address] Performed By: #### A LLBG ####[facility] LABCLIA [id number] [place] [address] [place] Calcium.ionized (Bld) [Mass/Vol] 1.15 mmol/L Normal 1.08-1.[address] [facility] Comment on above: Order Comment: Speci men Type: ARTERIAL BLOOD SPECIMENOrdering Facility: [facility] Address: [address] [place] [address] Performed By: #### A LLBG ####[facility] LABIA [id number] [place] [address] [place] Calcium.ionized adjusted to pH 7.4 (BldA) [Moles/Vol] 1.15 mmol/L Normal 1.08-1.[address] [facility] Comment on above: Order Comment: Speci men Type: ARTERIAL BLOOD SPECIMENOrdering Facility: [facility] Address: [address] [place] [address] Performed By: #### A LLBG ####[facility] LABCLIA [id number] [place] [address] [place] Carboxyhemoglobin (BldA) [Mass fraction] 1.7 % Normal 0.0-2.[address] [facility] Comment on above: Order Comment: Speci men Type: ARTERIAL BLOOD SPECIMENOrdering Facility: [facility] Address: [address] [place] [address] Result Comment: Carb oxyhemoglobin Reference Range for Smokers: 2.0-8.0% Performed By: #### A LLBG ####[facility] LABCLIA [id number] [address] [place] [address] [place] CO2 (Bld) [Partial pressure] 41 mm Hg Normal 36-[address] [facility] Comment on above: Order Comment: Speci men Type: ARTERIAL BLOOD SPECIMENOrdering Facility: [facility] Address: [address] [place] [address] Performed By: #### A LLBG ####[facility] LABCLIA [id number] [address], [facility]95 [place] Glucose [Mass/Vol] 115 mg/dL High 60-105 [facility] Comment on above: Order Comment: Speci men Type: ARTERIAL BLOOD SPECIMENOrdering Facility: [facility] Address: [address] [place] [address] Performed By: #### A LLBG ####[facility] LABCLIA [id number] [place] [id number] [place] HCO3 (Bld) [Moles/Vol] 26 mmol/L Normal 22-26 [facility] Comment on above: Order Comment: Speci men Type: ARTERIAL BLOOD SPECIMENOrdering Facility: [facility] Address: [address] [place] [address] Performed By: #### A LLBG ####[facility] LABCLIA [id number] [address], [facility]95 [place] Hematocrit (Bld) [Volume fraction] 30.2 % Low 36.0-46.[address] [facility] Comment on above: Order Comment: Speci men Type: ARTERIAL BLOOD SPECIMENOrdering Facility: [facility] Address: [address] [place] [address] Performed By: #### A LLBG ####[facility] LABCLIA [id number] [place] [id number] [place] Hemoglobin (Bld) [Mass/Vol] 9.8 g/dL Low 11.5-15.[address] [facility] Comment on above: Order Comment: Speci men Type: ARTERIAL BLOOD SPECIMENOrdering Facility: [facility] Address: [address] [place] [address] Performed By: #### A LLBG ####[facility] LABIA [id number] [place] [id number] [place] Lactate [Moles/Vol] 1.1 mmol/L Normal 0.5-2.2 [facility] Comment on above: Order Comment: Speci men Type: ARTERIAL BLOOD SPECIMENOrdering Facility: [facility] Address: [address] [place] [address] Performed By: #### A LLBG ####[facility] LABIA [id number] [place] [address] [place] Methemoglobin (Bld) [Mass fraction] 0.7 % Normal 0.0-1.[address] [facility] Comment on above: Order Comment: Speci men Type: ARTERIAL BLOOD SPECIMENOrdering Facility: [facility] Address: [address] [place] [address] Performed By: #### A LLBG ####[facility] LABIA [id number] [place] [address] [place] O2 THERAPY NC = Nasal Cannula Normal [facility] Comment on above: Order Comment: Speci men Type: ARTERIAL BLOOD SPECIMENOrdering Facility: [facility] Address: [address] [place] [address] Performed By: #### A LLBG ####[facility] LABCLIA [id number] [address] [address] [place] Oxygen (Bld) [Partial pressure] 112 mm Hg High 85-[address] [facility] Comment on above: Order Comment: Speci men Type: ARTERIAL BLOOD SPECIMENOrdering Facility: [facility] Address: [address] [place] [address] Performed By: #### A LLBG ####[facility] LABIA [id number] [place] [id number] [place] Oxyhemoglobin (BldA) [Mass fraction] 97 % Normal 95-[address] [facility] Comment on above: Order Comment: Speci men Type: ARTERIAL BLOOD SPECIMENOrdering Facility: [facility] Address: [address] [place], [place] [address] Performed By: #### A LLBG ####[facility] LABCLIA [id number] [place] [address] [place] pH (Bld) 7.41 [pH] Normal 7.35-7.[address] [facility] Comment on above: Order Comment: Speci men Type: ARTERIAL BLOOD SPECIMENOrdering Facility: [facility] Address: [address] [place] [address] Performed By: #### A LLBG ####[facility] LABCLIA [id number] [place] [address] [place] Potassium [Moles/Vol] 4.4 mmol/L Normal 3.5-5.0 [facility] Comment on above: Order Comment: Speci men Type: ARTERIAL BLOOD SPECIMENOrdering Facility: [facility] Address: [address] [place] [address] Performed By: #### A LLBG ####[facility] LABIA [id number] [place] [address] [place] Sodium [Moles/Vol] 135 mmol/L Low 136-144 [facility] Comment on above: Order Comment: Speci men Type: ARTERIAL BLOOD SPECIMENOrdering Facility: [facility] Address: [address] [place] [address] Performed By: #### A LLBG ####[facility] LABIA [id number] [place] [id number] [place] Base excess Calc (Bld) [Moles/Vol] 2 mmol/L Normal 0-[address] [facility] Comment on above: Order Comment: Speci men Type: ARTERIAL BLOOD SPECIMENOrdering Facility: [facility] Address: [address] [place] [address] Performed By: #### A LLBG ####[facility] LABCLIA [id number] [place] [address] [place] Body temperature 98.6 [degF] Normal [facility] Comment on above: Order Comment: Speci men Type: ARTERIAL BLOOD SPECIMENOrdering Facility: [facility] Address: [address] [place] [address] Performed By: #### A LLBG ####[facility] LABCLIA [id number] [address] [place] Order Comment: Speci men Type: VENOUS BLOOD SPECIMENOrdering Facility: [facility] Address: [address] [place] [address] Performed By: #### 2 4344-4 ####[facility] LABCLIA [id number] [address] [place] Calcium.ionized (Bld) [Mass/Vol] 1.16 mmol/L Normal 1.08-1.[address] [facility] Comment on above: Order Comment: Speci men Type: ARTERIAL BLOOD SPECIMENOrdering Facility: [facility] Address: [address] [place] [address] Performed By: #### A LLBG ####[facility] LABCLIA [id number] [address] [place] Order Comment: Speci men Type: VENOUS BLOOD SPECIMENOrdering Facility: [facility] Address: [address] [place] [address] Performed By: #### 2 4344-4 ####[facility] LABCLIA [id number] [place] [address] [place] Calcium.ionized adjusted to pH 7.4 (BldA) [Moles/Vol] 1.16 mmol/L Normal 1.08-1.[address] [facility] Comment on above: Order Comment: Speci men Type: ARTERIAL BLOOD SPECIMENOrdering Facility: [facility] Address: [address] [place] [address] Performed By: #### A LLBG ####[facility] LABCLIA [id number] [place] [address] [place] Carboxyhemoglobin (BldA) [Mass fraction] 1.4 % Normal 0.0-2.[address] [facility] Comment on above: Order Comment: Speci men Type: ARTERIAL BLOOD SPECIMENOrdering Facility: [facility] Address: [address] [place] [address] Result Comment: Carb oxyhemoglobin Reference Range for Smokers: 2.0-8.0% Performed By: #### A LLBG ####[facility] LABCLIA [id number] [place] [address] [place] CO2 (Bld) [Partial pressure] 45 mm Hg Normal 36-[address] [facility] Comment on above: Order Comment: Speci men Type: ARTERIAL BLOOD SPECIMENOrdering Facility: [facility] Address: [address] [place] [address] Performed By: #### A LLBG ####[facility] LABCLIA [id number] [place] [address] [place] Glucose [Mass/Vol] 128 mg/dL High 60-105 [facility] Comment on above: Order Comment: Speci men Type: ARTERIAL BLOOD SPECIMENOrdering Facility: [facility] Address: [address] [place] [address] Performed By: #### A LLBG ####[facility] LABCLIA [id number] [place] [address] [place] HCO3 (Bld) [Moles/Vol] 26 mmol/L Normal 22-26 [facility] Comment on above: Order Comment: Speci men Type: ARTERIAL BLOOD SPECIMENOrdering Facility: [facility] Address: [address] [place] [address] Performed By: #### A LLBG ####[facility] LABCLIA [id number] [address] [address] [place] Hematocrit (Bld) [Volume fraction] 29.9 % Low 36.0-46.[address] [facility] Comment on above: Order Comment: Speci men Type: ARTERIAL BLOOD SPECIMENOrdering Facility: [facility] Address: [address] [place] [address] Performed By: #### A LLBG ####[facility] LABIA [id number] [address], [place] [address] [place] Hemoglobin (Bld) [Mass/Vol] 9.7 g/dL Low 11.5-15.[address] [facility] Comment on above: Order Comment: Speci men Type: ARTERIAL BLOOD SPECIMENOrdering Facility: [facility] Address: [address] [place] [address] Performed By: #### A LLBG ####[facility] LABIA [id number] [place] [address] [place] Lactate [Moles/Vol] 0.8 mmol/L Normal 0.5-2.2 [facility] Comment on above: Order Comment: Speci men Type: ARTERIAL BLOOD SPECIMENOrdering Facility: [facility] Address: [address] [place] [address] Performed By: #### A LLBG ####[facility] LABIA [id number] [place] [id number] [place] Order Comment: Speci men Type: VENOUS BLOOD SPECIMENOrdering Facility: [facility] Address: [address] [place] [address] Performed By: #### 2 4344-4 ####[facility] LABIA [id number] [place] [id number] [place] Methemoglobin (Bld) [Mass fraction] 1.2 % Normal 0.0-1.[address] [facility] Comment on above: Order Comment: Speci men Type: ARTERIAL BLOOD SPECIMENOrdering Facility: [facility] Address: [address] [place], [place] [address] Performed By: #### A LLBG ####[facility] LABCLIA [id number] [address] [place] [address] [place] O2 THERAPY Positive Normal [facility] Comment on above: Order Comment: Speci men Type: ARTERIAL BLOOD SPECIMENOrdering Facility: [facility] Address: [address] [place] [address] Performed By: #### A LLBG ####[facility] LABCLIA [id number] [address] [place] [address] [place] Order Comment: Speci men Type: VENOUS BLOOD SPECIMENOrdering Facility: [facility] Address: [address] [place] [address] Performed By: #### 2 4344-4 ####[facility] LABCLIA [id number] [address] [place] [address] [place] Oxygen (Bld) [Partial pressure] 94 mm Hg Normal 85-[address] [facility] Comment on above: Order Comment: Speci men Type: ARTERIAL BLOOD SPECIMENOrdering Facility: [facility] Address: [address] [place], [place] [address] Performed By: #### A LLBG ####[facility] LABCLIA [id number] [address] [place] [address] [place] Oxyhemoglobin (BldA) [Mass fraction] 95 % Normal 95-[address] [facility] Comment on above: Order Comment: Speci men Type: ARTERIAL BLOOD SPECIMENOrdering Facility: [facility] Address: [address] [place], [place] [address] Performed By: #### A LLBG ####[facility] LABCLIA [id number] [address] [place] [address] [place] pH (Bld) 7.39 [pH] Normal 7.35-7.[address] [facility] Comment on above: Order Comment: Speci men Type: ARTERIAL BLOOD SPECIMENOrdering Facility: [facility] Address: [address] [place] [address] Performed By: #### A LLBG ####[facility] LABCLIA [id number] [place] [address] [place] Potassium [Moles/Vol] 4.3 mmol/L Normal 3.5-5.0 [facility] Comment on above: Order Comment: Speci men Type: ARTERIAL BLOOD SPECIMENOrdering Facility: [facility] Address: [address] [place] [address] Performed By: #### A LLBG ####[facility] LABCLIA [id number] [place] [address] [place] Sodium [Moles/Vol] 136 mmol/L Normal 136-144 [facility] Comment on above: Order Comment: Speci men Type: ARTERIAL BLOOD SPECIMENOrdering Facility: [facility] Address: [address] [place] [address] Performed By: #### A LLBG ####[facility] LABCLIA [id number] [place] [address] [place] Base excess Calc (Bld) [Moles/Vol] 1 mmol/L Normal 0-[address] [facility] Comment on above: Order Comment: Speci men Type: ARTERIAL BLOOD SPECIMENOrdering Facility: [facility] Address: [address] [place] [address] Performed By: #### A LLBG ####[facility] LABCLIA [id number] [address] [address] [place] Body temperature 98.6 [degF] Normal [facility] Comment on above: Order Comment: Speci men Type: ARTERIAL BLOOD SPECIMENOrdering Facility: [facility] Address: [address] [place] [address] Performed By: #### A LLBG ####[facility] LABCLIA [id number] [place] [id number] [place] Order Comment: Speci men Type: VENOUS BLOOD SPECIMENOrdering Facility: [facility] Address: [address] [place] [address] Performed By: #### 2 4344-4 ####[facility] LABIA [id number] [place] [address] [place] Calcium.ionized (Bld) [Mass/Vol] 1.21 mmol/L Normal 1.08-1.[address] [facility] Comment on above: Order Comment: Speci men Type: ARTERIAL BLOOD SPECIMENOrdering Facility: [facility] Address: [address] [place] [address] Performed By: #### A LLBG ####[facility] [id number] [place] [address] [place] Calcium.ionized adjusted to pH 7.4 (BldA) [Moles/Vol] 1.19 mmol/L Normal 1.08-1.[address] [facility] Comment on above: Order Comment: Speci men Type: ARTERIAL BLOOD SPECIMENOrdering Facility: [facility] Address: [address] [place] [address] Performed By: #### A LLBG ####[facility] LABIA [id number] [place] [address] [place] Carboxyhemoglobin (BldA) [Mass fraction] 1.4 % Normal 0.0-2.[address] [facility] Comment on above: Order Comment: Speci men Type: ARTERIAL BLOOD SPECIMENOrdering Facility: [facility] Address: [address] [place] [address] Result Comment: Carb oxyhemoglobin Reference Range for Smokers: 2.0-8.0% Performed By: #### A LLBG ####[facility] LABIA [id number] [place] [address] [place] CO2 (Bld) [Partial pressure] 48 mm Hg High 36-[address] [facility] Comment on above: Order Comment: Speci men Type: ARTERIAL BLOOD SPECIMENOrdering Facility: [facility] Address: [address] [place] [address] Performed By: #### A LLBG ####[facility] LABCLIA [id number] [place] [address] [place] Glucose [Mass/Vol] 138 mg/dL High 60-105 [facility] Comment on above: Order Comment: Speci men Type: ARTERIAL BLOOD SPECIMENOrdering Facility: [facility] Address: [address] [place] [address] Performed By: #### A LLBG ####[facility] LABCLIA [id number] [place] [address] [place] HCO3 (Bld) [Moles/Vol] 26 mmol/L Normal 22-26 [facility] Comment on above: Order Comment: Speci men Type: ARTERIAL BLOOD SPECIMENOrdering Facility: [facility] Address: [address] [place] [address] Performed By: #### A LLBG ####[facility] LABCLIA [id number] [place] [address] [place] Hematocrit (Bld) [Volume fraction] 31.2 % Low 36.0-46.[address] [facility] Comment on above: Order Comment: Speci men Type: ARTERIAL BLOOD SPECIMENOrdering Facility: [facility] Address: [address] [place] [address] Performed By: #### A LLBG ####[facility] LABCLIA [id number] [place] [id number] [place] Hemoglobin (Bld) [Mass/Vol] 10.1 g/dL Low 11.5-15.[address] [facility] Comment on above: Order Comment: Speci men Type: ARTERIAL BLOOD SPECIMENOrdering Facility: [facility] Address: [address] [place] [address] Performed By: #### A LLBG ####[facility] LABCLIA [id number] [place] [id number] [place] Lactate [Moles/Vol] 1.0 mmol/L Normal 0.5-2.2 [facility] Comment on above: Order Comment: Speci men Type: ARTERIAL BLOOD SPECIMENOrdering Facility: [facility] Address: [address] [place] [address] Performed By: #### A LLBG ####[facility] LABCLIA [id number] [place] [address] [place] LITERS 3 Liters/min Normal [facility] Comment on above: Order Comment: Speci men Type: ARTERIAL BLOOD SPECIMENOrdering Facility: [facility] Address: [address] [place] [address] Performed By: #### A LLBG ####[facility] LABCLIA [id number] [place] [address] [place] Order Comment: Speci men Type: VENOUS BLOOD SPECIMENOrdering Facility: [facility] Address: [address] [place] [address] Performed By: #### 2 4344-4 ####[facility] LABCLIA [id number] [place] [address] [place] Methemoglobin (Bld) [Mass fraction] 0.9 % Normal 0.0-1.[address] [facility] Comment on above: Order Comment: Speci men Type: ARTERIAL BLOOD SPECIMENOrdering Facility: [facility] Address: [address] [place] [address] Performed By: #### A LLBG ####[facility] LABCLIA [id number] [place] [id number] [place] O2 THERAPY NC = Nasal Cannula Normal [facility] Comment on above: Order Comment: Speci men Type: ARTERIAL BLOOD SPECIMENOrdering Facility: [facility] Address: [address] [place] [address] Performed By: #### A LLBG ####[facility] LABCLIA [id number] [address] [place] [address] [place] Order Comment: Speci men Type: VENOUS BLOOD SPECIMENOrdering Facility: [facility] Address: [address] [place] [address] Performed By: #### 2 4344-4 ####[facility] LABCLIA [id number] [address] [place] [address] [place] Oxygen (Bld) [Partial pressure] 73 mm Hg Low 85-[address] [facility] Comment on above: Order Comment: Speci men Type: ARTERIAL BLOOD SPECIMENOrdering Facility: [facility] Address: [address] [place] [address] Performed By: #### A LLBG ####[facility] LABCLIA [id number] [place] [address] [place] Oxyhemoglobin (BldA) [Mass fraction] 92 % Low 95-[address] [facility] Comment on above: Order Comment: Speci men Type: ARTERIAL BLOOD SPECIMENOrdering Facility: [facility] Address: [address] [place] [address] Performed By: #### A LLBG ####[facility] LABCLIA [id number] [place] [address] [place] pH (Bld) 7.36 [pH] Normal 7.35-7.[address] [facility] Comment on above: Order Comment: Speci men Type: ARTERIAL BLOOD SPECIMENOrdering Facility: [facility] Address: [address] [place] [address] Performed By: #### A LLBG ####[facility] LABCLIA [id number] [place] [id number] [place] Potassium [Moles/Vol] 4.4 mmol/L Normal 3.5-5.0 [facility] Comment on above: Order Comment: Speci men Type: ARTERIAL BLOOD SPECIMENOrdering Facility: [facility] Address: [address] [place] [address] Performed By: #### A LLBG ####[facility] LABCLIA [id number] [address] [address] [place] Sodium [Moles/Vol] 139 mmol/L Normal 136-144 [facility] Comment on above: Order Comment: Speci men Type: ARTERIAL BLOOD SPECIMENOrdering Facility: [facility] Address: [address] [place] [address] Performed By: #### A LLBG ####[facility] LABCLIA [id number] [place] [id number] [place] Base excess Calc (Bld) [Moles/Vol] 2 mmol/L Normal 0-[address] [facility] Comment on above: Order Comment: Speci men Type: ARTERIAL BLOOD SPECIMENOrdering Facility: [facility] Address: [address] [place] [address] Performed By: #### A LLBG ####[facility] LABCLIA [id number] [place] [address] [place] Body temperature 98.6 [degF] Normal [facility] Comment on above: Order Comment: Speci men Type: ARTERIAL BLOOD SPECIMENOrdering Facility: [facility] Address: [address] [place] [address] Performed By: #### A LLBG ####[facility] LABCLIA [id number] [place] [address] [place] Order Comment: Speci men Type: VENOUS BLOOD SPECIMENOrdering Facility: [facility] Address: [address] [place] [address] Performed By: #### 2 4344-4 ####[facility] LABCLIA [id number] [place] [address] [place] Calcium.ionized (Bld) [Mass/Vol] 1.14 mmol/L Normal 1.08-1.[address] [facility] Comment on above: Order Comment: Speci men Type: ARTERIAL BLOOD SPECIMENOrdering Facility: [facility] Address: [address] [place] [address] Performed By: #### A LLBG ####[facility] LABIA [id number] [place] [address] [place] Order Comment: Speci men Type: VENOUS BLOOD SPECIMENOrdering Facility: [facility] Address: [address] [place] [address] Performed By: #### 2 4344-4 ####[facility] LABIA [id number] [place] [address] [place] Calcium.ionized adjusted to pH 7.4 (BldA) [Moles/Vol] 1.15 mmol/L Normal 1.08-1.[address] [facility] Comment on above: Order Comment: Speci men Type: ARTERIAL BLOOD SPECIMENOrdering Facility: [facility] Address: [address] [place] [address] Performed By: #### A LLBG ####[facility] LABIA [id number] [place] [address] [place] Carboxyhemoglobin (BldA) [Mass fraction] 1.1 % Normal 0.0-2.[address] [facility] Comment on above: Order Comment: Speci men Type: ARTERIAL BLOOD SPECIMENOrdering Facility: [facility] Address: [address] [place] [address] Result Comment: Carb oxyhemoglobin Reference Range for Smokers: 2.0-8.0% Performed By: #### A LLBG ####[facility] LABIA [id number] [place] [address] [place] CO2 (Bld) [Partial pressure] 43 mm Hg Normal 36-[address] [facility] Comment on above: Order Comment: Speci men Type: ARTERIAL BLOOD SPECIMENOrdering Facility: [facility] Address: [address] [place] [address] Performed By: #### A LLBG ####[facility] LABIA [id number] [place] [address] [place] Glucose [Mass/Vol] 135 mg/dL High 60-105 [facility] Comment on above: Order Comment: Speci men Type: ARTERIAL BLOOD SPECIMENOrdering Facility: [facility] Address: [address] [place] [address] Performed By: #### A LLBG ####[facility] LABCLIA [id number] [place] [address] [place] HCO3 (Bld) [Moles/Vol] 27 mmol/L High 22-26 [facility] Comment on above: Order Comment: Speci men Type: ARTERIAL BLOOD SPECIMENOrdering Facility: [facility] Address: [address] [place] [address] Performed By: #### A LLBG ####[facility] LABCLIA [id number] [place] [address] [place] Hematocrit (Bld) [Volume fraction] 31.6 % Low 36.0-46.[address] [facility] Comment on above: Order Comment: Speci men Type: ARTERIAL BLOOD SPECIMENOrdering Facility: [facility] Address: [address] [place] [address] Performed By: #### A LLBG ####[facility] LABCLIA [id number] [place] [address] [place] Hemoglobin (Bld) [Mass/Vol] 10.2 g/dL Low 11.5-15.[address] [facility] Comment on above: Order Comment: Speci men Type: ARTERIAL BLOOD SPECIMENOrdering Facility: [facility] Address: [address] [place] [address] Performed By: #### A LLBG ####[facility] LABCLIA [id number] [place] [address] [place] Lactate [Moles/Vol] 0.7 mmol/L Normal 0.5-2.2 [facility] Comment on above: Order Comment: Speci men Type: ARTERIAL BLOOD SPECIMENOrdering Facility: [facility] Address: [address] [place] [place] [id number] Performed By: #### A LLBG ####[facility] LABCLIA [id number] [address] [place] [address] [place] Methemoglobin (Bld) [Mass fraction] 1.4 % Normal 0.0-1.[address] [facility] Comment on above: Order Comment: Speci men Type: ARTERIAL BLOOD SPECIMENOrdering Facility: [facility] Address: [address] [place] [address] Performed By: #### A LLBG ####[facility] LABCLIA [id number] [address], [facility]95 [place] O2 THERAPY Positive Normal [facility] Comment on above: Order Comment: Speci men Type: ARTERIAL BLOOD SPECIMENOrdering Facility: [facility] Address: [address] [place] [address] Performed By: #### A LLBG ####[facility] LABCLIA [id number] [address] [place] [address] [place] Order Comment: Speci men Type: VENOUS BLOOD SPECIMENOrdering Facility: [facility] Address: [address] [place] [address] Performed By: #### 2 4344-4 ####[facility] LABCLIA [id number] [address] [place] [address] [place] Oxygen (Bld) [Partial pressure] 82 mm Hg Low 85-[address] [facility] Comment on above: Order Comment: Speci men Type: ARTERIAL BLOOD SPECIMENOrdering Facility: [facility] Address: [address] [place], [place] [address] Performed By: #### A LLBG ####[facility] LABCLIA [id number] [address] [place] [address] [place] Oxyhemoglobin (BldA) [Mass fraction] 93 % Low 95-[address] [facility] Comment on above: Order Comment: Speci men Type: ARTERIAL BLOOD SPECIMENOrdering Facility: [facility] Address: [address] [place] [address] Performed By: #### A LLBG ####[facility] LABCLIA [id number] [place] [address] [place] pH (Bld) 7.41 [pH] Normal 7.35-7.[address] [facility] Comment on above: Order Comment: Speci men Type: ARTERIAL BLOOD SPECIMENOrdering Facility: [facility] Address: [address] [place] [address] Performed By: #### A LLBG ####[facility] LABCLIA [id number] [place] [address] [place] Potassium [Moles/Vol] 4.2 mmol/L Normal 3.5-5.0 [facility] Comment on above: Order Comment: Speci men Type: ARTERIAL BLOOD SPECIMENOrdering Facility: [facility] Address: [address] [place] [address] Performed By: #### A LLBG ####[facility] LABCLIA [id number] [place] [address] [place] Order Comment: Speci men Type: VENOUS BLOOD SPECIMENOrdering Facility: [facility] Address: [address] [place] [address] Performed By: #### 2 4344-4 ####[facility] LABCLIA [id number] [place] [address] [place] Sodium [Moles/Vol] 135 mmol/L Low 136-144 [facility] Comment on above: Order Comment: Speci men Type: ARTERIAL BLOOD SPECIMENOrdering Facility: [facility] Address: [address] [place] [address] Performed By: #### A LLBG ####[facility] LABCLIA [id number] [place] [id number] [place] Base excess Calc (Bld) [Moles/Vol] 3 mmol/L High 0-[address] [facility] Comment on above: Order Comment: Speci men Type: ARTERIAL BLOOD SPECIMENOrdering Facility: [facility] Address: [address] [place] [address] Performed By: #### A LLBG ####[facility] LABCLIA [id number] [place] [address] [place] Calcium.ionized (Bld) [Mass/Vol] 1.14 mmol/L Normal 1.08-1.[address] [facility] Comment on above: Order Comment: Speci men Type: ARTERIAL BLOOD SPECIMENOrdering Facility: [facility] Address: [address] [place] [address] Performed By: #### A LLBG ####[facility] LABCLIA [id number] [place] [address] [place] Calcium.ionized adjusted to pH 7.4 (BldA) [Moles/Vol] 1.14 mmol/L Normal 1.08-1.[address] [facility] Comment on above: Order Comment: Speci men Type: ARTERIAL BLOOD SPECIMENOrdering Facility: [facility] Address: [address] [place] [address] Performed By: #### A LLBG ####[facility] LABCLIA [id number] [place] [address] [place] Carboxyhemoglobin (BldA) [Mass fraction] 1.5 % Normal 0.0-2.[address] [facility] Comment on above: Order Comment: Speci men Type: ARTERIAL BLOOD SPECIMENOrdering Facility: [facility] Address: [address] [place] [address] Result Comment: Carb oxyhemoglobin Reference Range for Smokers: 2.0-8.0% Performed By: #### A LLBG ####[facility] LABCLIA [id number] [place] [address] [place] CO2 (Bld) [Partial pressure] 45 mm Hg Normal 36-[address] [facility] Comment on above: Order Comment: Speci men Type: ARTERIAL BLOOD SPECIMENOrdering Facility: [facility] Address: [address] [place] [address] Performed By: #### A LLBG ####[facility] LABCLIA [id number] [place] [id number] [place] Glucose [Mass/Vol] 154 mg/dL High 60-105 [facility] Comment on above: Order Comment: Speci men Type: ARTERIAL BLOOD SPECIMENOrdering Facility: [facility] Address: [address] [place] [address] Performed By: #### A LLBG ####[facility] LABCLIA [id number] [place] [address] [place] Hematocrit (Bld) [Volume fraction] 30.6 % Low 36.0-46.[address] [facility] Comment on above: Order Comment: Speci men Type: ARTERIAL BLOOD SPECIMENOrdering Facility: [facility] Address: [address] [place] [address] Performed By: #### A LLBG ####[facility] LABCLIA [id number] [place] [address] [place] Hemoglobin (Bld) [Mass/Vol] 9.9 g/dL Low 11.5-15.[address] [facility] Comment on above: Order Comment: Speci men Type: ARTERIAL BLOOD SPECIMENOrdering Facility: [facility] Address: [address] [place] [address] Performed By: #### A LLBG ####[facility] LABCLIA [id number] [place] [id number] [place] Lactate [Moles/Vol] 0.8 mmol/L Normal 0.5-2.2 [facility] Comment on above: Order Comment: Speci men Type: ARTERIAL BLOOD SPECIMENOrdering Facility: [facility] Address: [address] [place] [address] Performed By: #### A LLBG ####[facility] LABCLIA [id number] [place] [id number] [place] Methemoglobin (Bld) [Mass fraction] 1.1 % Normal 0.0-1.[address] [facility] Comment on above: Order Comment: Speci men Type: ARTERIAL BLOOD SPECIMENOrdering Facility: [facility] Address: [address] [place] [address] Performed By: #### A LLBG ####[facility] LABIA [id number] [place] [id number] [place] Oxygen (Bld) [Partial pressure] 114 mm Hg High 85-[address] [facility] Comment on above: Order Comment: Speci men Type: ARTERIAL BLOOD SPECIMENOrdering Facility: [facility] Address: [address] [place] [address] Performed By: #### A LLBG ####[facility] LABIA [id number] [place] [address] [place] Oxyhemoglobin (BldA) [Mass fraction] 96 % Normal 95-[address] [facility] Comment on above: Order Comment: Speci men Type: ARTERIAL BLOOD SPECIMENOrdering Facility: [facility] Address: [address] [place] [address] Performed By: #### A LLBG ####[facility] LABIA [id number] [place] [id number] [place] pH (Bld) 7.40 [pH] Normal 7.35-7.[address] [facility] Comment on above: Order Comment: Speci men Type: ARTERIAL BLOOD SPECIMENOrdering Facility: [facility] Address: [address] [place] [address] Performed By: #### A LLBG ####[facility] LABIA [id number] [place] [id number] [place] Potassium [Moles/Vol] 4.2 mmol/L Normal 3.5-5.0 [facility] Comment on above: Order Comment: Speci men Type: ARTERIAL BLOOD SPECIMENOrdering Facility: [facility] Address: [address] [place] [address] Performed By: #### A LLBG ####[facility] LABCLIA [id number] [address] [address] [place] Sodium [Moles/Vol] 134 mmol/L Low 136-144 [facility] Comment on above: Order Comment: Speci men Type: ARTERIAL BLOOD SPECIMENOrdering Facility: [facility] Address: [address] [place] [address] Performed By: #### A LLBG ####[facility] LABCLIA [id number] [place] [address] [place] Base excess Calc (Bld) [Moles/Vol] 1 mmol/L Normal 0-[address] [facility] Comment on above: Order Comment: Speci men Type: ARTERIAL BLOOD SPECIMENOrdering Facility: [facility] Address: [address] [place] [address] Performed By: #### A LLBG ####[facility] LABCLIA [id number] [place] [address] [place] Body temperature 98.6 [degF] Normal [facility] Comment on above: Order Comment: Speci men Type: ARTERIAL BLOOD SPECIMENOrdering Facility: [facility] Address: [address] [place] [address] Performed By: #### A LLBG ####[facility] LABCLIA [id number] [place] [id number] [place] Order Comment: Speci men Type: VENOUS BLOOD SPECIMENOrdering Facility: [facility] Address: [address] [place] [address] Performed By: #### 2 4344-4 ####[facility] LABCLIA [id number] [place] [id number] [place] Calcium.ionized (Bld) [Mass/Vol] 1.15 mmol/L Normal 1.08-1.[address] [facility] Comment on above: Order Comment: Speci men Type: ARTERIAL BLOOD SPECIMENOrdering Facility: [facility] Address: [address] [place] [address] Performed By: #### A LLBG ####[facility] LABCLIA [id number] [place] [address] [place] Calcium.ionized adjusted to pH 7.4 (BldA) [Moles/Vol] 1.13 mmol/L Normal 1.08-1.[address] [facility] Comment on above: Order Comment: Speci men Type: ARTERIAL BLOOD SPECIMENOrdering Facility: [facility] Address: [address] [place] [address] Performed By: #### A LLBG ####[facility] LABIA [id number] [place] [address] [place] Carboxyhemoglobin (BldA) [Mass fraction] 1.3 % Normal 0.0-2.[address] [facility] Comment on above: Order Comment: Speci men Type: ARTERIAL BLOOD SPECIMENOrdering Facility: [facility] Address: [address] [place] [address] Result Comment: Carb oxyhemoglobin Reference Range for Smokers: 2.0-8.0% Performed By: #### A LLBG ####[facility] LABCLIA [id number] [place] [address] [place] CO2 (Bld) [Partial pressure] 47 mm Hg High 36-[address] [facility] Comment on above: Order Comment: Speci men Type: ARTERIAL BLOOD SPECIMENOrdering Facility: [facility] Address: [address] [place] [address] Performed By: #### A LLBG ####[facility] LABCLIA [id number] [place] [address] [place] Glucose [Mass/Vol] 156 mg/dL High 60-105 [facility] Comment on above: Order Comment: Speci men Type: ARTERIAL BLOOD SPECIMENOrdering Facility: [facility] Address: [address] [place] [address] Performed By: #### A LLBG ####[facility] LABCLIA [id number] [place] [address] [place] HCO3 (Bld) [Moles/Vol] 26 mmol/L Normal 22-26 [facility] Comment on above: Order Comment: Speci men Type: ARTERIAL BLOOD SPECIMENOrdering Facility: [facility] Address: [address] [place] [address] Performed By: #### A LLBG ####[facility] LABCLIA [id number] [place] [address] [place] Hematocrit (Bld) [Volume fraction] 31.2 % Low 36.0-46.[address] [facility] Comment on above: Order Comment: Speci men Type: ARTERIAL BLOOD SPECIMENOrdering Facility: [facility] Address: [address] [place] [address] Performed By: #### A LLBG ####[facility] LABCLIA [id number] [place] [address] [place] Hemoglobin (Bld) [Mass/Vol] 10.1 g/dL Low 11.5-15.[address] [facility] Comment on above: Order Comment: Speci men Type: ARTERIAL BLOOD SPECIMENOrdering Facility: [facility] Address: [address] [place] [address] Performed By: #### A LLBG ####[facility] LABCLIA [id number] [place] [address] [place] Lactate [Moles/Vol] 0.8 mmol/L Normal 0.5-2.2 [facility] Comment on above: Order Comment: Speci men Type: ARTERIAL BLOOD SPECIMENOrdering Facility: [facility] Address: [address] [place] [address] Performed By: #### A LLBG ####[facility] LABCLIA [id number] [facility] [address] [place] [address] [place] Order Comment: Speci men Type: VENOUS BLOOD SPECIMENOrdering Facility: [facility] Address: [address] [place], [place] [address] Performed By: #### 2 4344-4 ####[facility] LABCLIA [id number] [facility] [address] [place] [address] [place] Methemoglobin (Bld) [Mass fraction] 1.2 % Normal 0.0-1.[address] [facility] Comment on above: Order Comment: Speci men Type: ARTERIAL BLOOD SPECIMENOrdering Facility: [facility] Address: [address] [place] [address] Performed By: #### A LLBG ####[facility] LABCLIA [id number] [address] [place] [address] [place] O2 THERAPY Positive Normal [facility] Comment on above: Order Comment: Speci men Type: ARTERIAL BLOOD SPECIMENOrdering Facility: [facility] Address: [address] [place], [place] [address] Performed By: #### A LLBG ####[facility] LABCLIA [id number] [address], [facility]95 [place] Order Comment: Speci men Type: VENOUS BLOOD SPECIMENOrdering Facility: [facility] Address: [address] [place], [place] [address] Performed By: #### 2 4344-4 ####[facility] LABCLIA [id number] [address] [place] [address] [place] Oxygen (Bld) [Partial pressure] 95 mm Hg Normal 85-[address] [facility] Comment on above: Order Comment: Speci men Type: ARTERIAL BLOOD SPECIMENOrdering Facility: [facility] Address: [address] [place], [place] [address] Performed By: #### A LLBG ####[facility] LABCLIA [id number] [address] [place] [address] [place] Oxyhemoglobin (BldA) [Mass fraction] 95 % Normal 95-[address] [facility] Comment on above: Order Comment: Speci men Type: ARTERIAL BLOOD SPECIMENOrdering Facility: [facility] Address: [address] [place] [address] Performed By: #### A LLBG ####[facility] LABCLIA [id number] [place] [id number] [place] pH (Bld) 7.37 [pH] Normal 7.35-7.[address] [facility] Comment on above: Order Comment: Speci men Type: ARTERIAL BLOOD SPECIMENOrdering Facility: [facility] Address: [address] [place] [address] Performed By: #### A LLBG ####[facility] LABCLIA [id number] [place] [id number] [place] Potassium [Moles/Vol] 4.4 mmol/L Normal 3.5-5.0 [facility] Comment on above: Order Comment: Speci men Type: ARTERIAL BLOOD SPECIMENOrdering Facility: [facility] Address: [address] [place] [address] Performed By: #### A LLBG ####[facility] LABCLIA [id number] [place] [id number] [place] Sodium [Moles/Vol] 136 mmol/L Normal 136-144 [facility] Comment on above: Order Comment: Speci men Type: ARTERIAL BLOOD SPECIMENOrdering Facility: [facility] Address: [address] [place] [address] Performed By: #### A LLBG ####[facility] LABCLIA [id number] [place] [id number] [place] Order Comment: Speci men Type: VENOUS BLOOD SPECIMENOrdering Facility: [facility] Address: [address] [place] [address] Performed By: #### 2 4344-4 ####[facility] LABCLIA [id number] [address] [place] [address] [place] Base excess Calc (Bld) [Moles/Vol] 1 mmol/L Normal 0-[address] [facility] Comment on above: Order Comment: Speci men Type: ARTERIAL BLOOD SPECIMENOrdering Facility: [facility] Address: [address] [place] [address] Performed By: #### A LLBG ####[facility] LABCLIA [id number] [address] [address] [place] Body temperature 98.6 [degF] Normal [facility] Comment on above: Order Comment: Speci men Type: ARTERIAL BLOOD SPECIMENOrdering Facility: [facility] Address: [address] [place] [address] Performed By: #### A LLBG ####[facility] LABIA [id number] [address] [place] Order Comment: Speci men Type: VENOUS BLOOD SPECIMENOrdering Facility: [facility] Address: [address] [place] [address] Performed By: #### 2 [id number] ####[facility] [id number] [address] [place] Calcium.ionized (Bld) [Mass/Vol] 1.17 mmol/L Normal 1.08-1.[address] [facility] Comment on above: Order Comment: Speci men Type: ARTERIAL BLOOD SPECIMENOrdering Facility: [facility] Address: [address] [place] [address] Performed By: #### A LLBG ####[facility] [id number] [address] [place] Calcium.ionized adjusted to pH 7.4 (BldA) [Moles/Vol] 1.15 mmol/L Normal 1.08-1.[address] [facility] Comment on above: Order Comment: Speci men Type: ARTERIAL BLOOD SPECIMENOrdering Facility: [facility] Address: [address] [place] [address] Performed By: #### A LLBG ####[facility] LABCLIA [id number] [place] [address] [place] Carboxyhemoglobin (BldA) [Mass fraction] 1.2 % Normal 0.0-2.[address] [facility] Comment on above: Order Comment: Speci men Type: ARTERIAL BLOOD SPECIMENOrdering Facility: [facility] Address: [address] [place] [address] Result Comment: Carb oxyhemoglobin Reference Range for Smokers: 2.0-8.0% Performed By: #### A LLBG ####[facility] LABCLIA [id number] [place] [address] [place] CO2 (Bld) [Partial pressure] 45 mm Hg Normal 36-[address] [facility] Comment on above: Order Comment: Speci men Type: ARTERIAL BLOOD SPECIMENOrdering Facility: [facility] Address: [address] [place] [address] Performed By: #### A LLBG ####[facility] LABCLIA [id number] [place] [address] [place] Glucose [Mass/Vol] 160 mg/dL High 60-105 [facility] Comment on above: Order Comment: Speci men Type: ARTERIAL BLOOD SPECIMENOrdering Facility: [facility] Address: [address] [place] [address] Performed By: #### A LLBG ####[facility] LABCLIA [id number] [place] [address] [place] HCO3 (Bld) [Moles/Vol] 26 mmol/L Normal 22-26 [facility] Comment on above: Order Comment: Speci men Type: ARTERIAL BLOOD SPECIMENOrdering Facility: [facility] Address: [address] [place] [address] Performed By: #### A LLBG ####[facility] LABCLIA [id number] [place] [id number] [place] Hematocrit (Bld) [Volume fraction] 32.3 % Low 36.0-46.[address] [facility] Comment on above: Order Comment: Speci men Type: ARTERIAL BLOOD SPECIMENOrdering Facility: [facility] Address: [address] [place] [address] Performed By: #### A LLBG ####[facility] LABCLIA [id number] [place] [address] [place] Hemoglobin (Bld) [Mass/Vol] 10.5 g/dL Low 11.5-15.[address] [facility] Comment on above: Order Comment: Speci men Type: ARTERIAL BLOOD SPECIMENOrdering Facility: [facility] Address: [address] [place] [address] Performed By: #### A LLBG ####[facility] LABCLIA [id number] [place] [address] [place] Lactate [Moles/Vol] 1.0 mmol/L Normal 0.5-2.2 [facility] Comment on above: Order Comment: Speci men Type: ARTERIAL BLOOD SPECIMENOrdering Facility: [facility] Address: [address] [place] [address] Performed By: #### A LLBG ####[facility] LABCLIA [id number] [place] [address] [place] Methemoglobin (Bld) [Mass fraction] 1.0 % Normal 0.0-1.[address] [facility] Comment on above: Order Comment: Speci men Type: ARTERIAL BLOOD SPECIMENOrdering Facility: [facility] Address: [address] [place] [address] Performed By: #### A LLBG ####[facility] LABCLIA [id number] [place] [id number] [place] O2 THERAPY Positive Normal [facility] Comment on above: Order Comment: Speci men Type: ARTERIAL BLOOD SPECIMENOrdering Facility: [facility] Address: [address] [place] [address] Performed By: #### A LLBG ####[facility] LABCLIA [id number] [address] [place] [address] [place] Order Comment: Speci men Type: VENOUS BLOOD SPECIMENOrdering Facility: [facility] Address: [address] [place] [address] Performed By: #### 2 4344-4 ####[facility] LABCLIA [id number] [address], [facility]95 [place] Oxygen (Bld) [Partial pressure] 121 mm Hg High 85-[address] [facility] Comment on above: Order Comment: Speci men Type: ARTERIAL BLOOD SPECIMENOrdering Facility: [facility] Address: [address] [place] [address] Performed By: #### A LLBG ####[facility] LABCLIA [id number] [address], [facility]95 [place] Oxyhemoglobin (BldA) [Mass fraction] 96 % Normal 95-[address] [facility] Comment on above: Order Comment: Speci men Type: ARTERIAL BLOOD SPECIMENOrdering Facility: [facility] Address: [address] [place] [address] Performed By: #### A LLBG ####[facility] LABCLIA [id number] [address] [place] [address] [place] pH (Bld) 7.37 [pH] Normal 7.35-7.[address] [facility] Comment on above: Order Comment: Speci men Type: ARTERIAL BLOOD SPECIMENOrdering Facility: [facility] Address: [address] [place] [address] Performed By: #### A LLBG ####[facility] LABCLIA [id number] [address] [place] [address] [place] Potassium [Moles/Vol] 4.8 mmol/L Normal 3.5-5.0 [facility] Comment on above: Order Comment: Speci men Type: ARTERIAL BLOOD SPECIMENOrdering Facility: [facility] Address: [address] [place] [address] Performed By: #### A LLBG ####[facility] LABCLIA [id number] [place] [id number] [place] Order Comment: Speci men Type: VENOUS BLOOD SPECIMENOrdering Facility: [facility] Address: [address] [place] [address] Performed By: #### 2 4344-4 ####[facility] LABCLIA [id number] [place] [address] [place] Sodium [Moles/Vol] 136 mmol/L Normal 136-144 [facility] Comment on above: Order Comment: Speci men Type: ARTERIAL BLOOD SPECIMENOrdering Facility: [facility] Address: [address] [place] [address] Performed By: #### A LLBG ####[facility] LABCLIA [id number] [place] [address] [place] Base excess Calc (Bld) [Moles/Vol] 1 mmol/L Normal 0-[address] [facility] Comment on above: Order Comment: Speci men Type: ARTERIAL BLOOD SPECIMENOrdering Facility: [facility] Address: [address] [place] [address] Performed By: #### A LLBG ####[facility] LABCLIA [id number] [facility] [place] [id number] [place] Body temperature 98.6 [degF] Normal [facility] Comment on above: Order Comment: Speci men Type: ARTERIAL BLOOD SPECIMENOrdering Facility: [facility] Address: [address] [place] [address] Performed By: #### A LLBG ####[facility] LABCLIA [id number] [place] [id number] [place] Calcium.ionized (Bld) [Mass/Vol] 1.16 mmol/L Normal 1.08-1.[address] [facility] Comment on above: Order Comment: Speci men Type: ARTERIAL BLOOD SPECIMENOrdering Facility: [facility] Address: [address] [place] [address] Performed By: #### A LLBG ####[facility] LABCLIA [id number] [place] [address] [place] Calcium.ionized adjusted to pH 7.4 (BldA) [Moles/Vol] 1.11 mmol/L Normal 1.08-1.[address] [facility] Comment on above: Order Comment: Speci men Type: ARTERIAL BLOOD SPECIMENOrdering Facility: [facility] Address: [address] [place] [address] Performed By: #### A LLBG ####[facility] LABIA [id number] [address] [place] Carboxyhemoglobin (BldA) [Mass fraction] 1.6 % Normal 0.0-2.[address] [facility] Comment on above: Order Comment: Speci men Type: ARTERIAL BLOOD SPECIMENOrdering Facility: [facility] Address: [address] [place] [address] Result Comment: Carb oxyhemoglobin Reference Range for Smokers: 2.0-8.0% Performed By: #### A LLBG ####[facility] LABCLIA [id number] [place] [address] [place] CO2 (Bld) [Partial pressure] 53 mm Hg High 36-[address] [facility] Comment on above: Order Comment: Speci men Type: ARTERIAL BLOOD SPECIMENOrdering Facility: [facility] Address: [address] [place] [address] Performed By: #### A LLBG ####[facility] LABCLIA [id number] [place] [address] [place] Glucose [Mass/Vol] 143 mg/dL High 60-105 [facility] Comment on above: Order Comment: Speci men Type: ARTERIAL BLOOD SPECIMENOrdering Facility: [facility] Address: [address] [place] [address] Performed By: #### A LLBG ####[facility] LABCLIA [id number] [address] [address] [place] HCO3 (Bld) [Moles/Vol] 27 mmol/L High 22-26 [facility] Comment on above: Order Comment: Speci men Type: ARTERIAL BLOOD SPECIMENOrdering Facility: [facility] Address: [address] [place] [address] Performed By: #### A LLBG ####[facility] LABCLIA [id number] [place] [address] [place] Hematocrit (Bld) [Volume fraction] 32.7 % Low 36.0-46.[address] [facility] Comment on above: Order Comment: Speci men Type: ARTERIAL BLOOD SPECIMENOrdering Facility: [facility] Address: [address] [place] [address] Performed By: #### A LLBG ####[facility] LABCLIA [id number] [place] [id number] [place] Hemoglobin (Bld) [Mass/Vol] 10.6 g/dL Low 11.5-15.[address] [facility] Comment on above: Order Comment: Speci men Type: ARTERIAL BLOOD SPECIMENOrdering Facility: [facility] Address: [address] [place] [address] Performed By: #### A LLBG ####[facility] LABCLIA [id number] [place] [id number] [place] Lactate [Moles/Vol] 1.2 mmol/L Normal 0.5-2.2 [facility] Comment on above: Order Comment: Speci men Type: ARTERIAL BLOOD SPECIMENOrdering Facility: [facility] Address: [address] [place] [address] Performed By: #### A LLBG ####[facility] LABCLIA [id number] [address] [address] [place] Methemoglobin (Bld) [Mass fraction] 0.9 % Normal 0.0-1.[address] [facility] Comment on above: Order Comment: Speci men Type: ARTERIAL BLOOD SPECIMENOrdering Facility: [facility] Address: [address] [place] [address] Performed By: #### A LLBG ####[facility] LABCLIA [id number] [place] [id number] [place] O2 THERAPY Positive Normal [facility] Comment on above: Order Comment: Speci men Type: ARTERIAL BLOOD SPECIMENOrdering Facility: [facility] Address: [address] [place] [address] Performed By: #### A LLBG ####[facility] LABCLIA [id number] [place] [id number] [place] Oxygen (Bld) [Partial pressure] 112 mm Hg High 85-[address] [facility] Comment on above: Order Comment: Speci men Type: ARTERIAL BLOOD SPECIMENOrdering Facility: [facility] Address: [address] [place] [address] Performed By: #### A LLBG ####[facility] LABCLIA [id number] [place] [id number] [place] Oxyhemoglobin (BldA) [Mass fraction] 96 % Normal 95-[address] [facility] Comment on above: Order Comment: Speci men Type: ARTERIAL BLOOD SPECIMENOrdering Facility: [facility] Address: [address] [place] [address] Performed By: #### A LLBG ####[facility] LABCLIA [id number] [address] [address] [place] pH (Bld) 7.33 [pH] Low 7.35-7.[address] [facility] Comment on above: Order Comment: Speci men Type: ARTERIAL BLOOD SPECIMENOrdering Facility: [facility] Address: [address] [place] [address] Performed By: #### A LLBG ####[facility] LABCLIA [id number] [place] [address] [place] Potassium [Moles/Vol] 4.7 mmol/L Normal 3.5-5.0 [facility] Comment on above: Order Comment: Speci men Type: ARTERIAL BLOOD SPECIMENOrdering Facility: [facility] Address: [address] [place] [address] Performed By: #### A LLBG ####[facility] LABCLIA [id number] [place] [address] [place] Sodium [Moles/Vol] 135 mmol/L Low 136-144 [facility] Comment on above: Order Comment: Speci men Type: ARTERIAL BLOOD SPECIMENOrdering Facility: [facility] Address: [address] [place] [address] Performed By: #### A LLBG ####[facility] LABIA [id number] [place] [address] [place] CBC panel Auto (Bld)on 09-05 Erythrocyte distribution width (RBC) [Ratio] 14.7 % Normal 11.5-15.[address] [facility] Comment on above: Order Comment: Speci men Type: BLOOD SPECIMENOrdering Facility: [facility] Address: [address] [place] [address] Performed By: #### 5 8410-2 ####[facility] LABCLIA [id number] [place] [address] [place] Hematocrit (Bld) [Volume fraction] 31.9 % Low 36.0-46.[address] [facility] Comment on above: Order Comment: Speci men Type: BLOOD SPECIMENOrdering Facility: [facility] Address: [address] [place] [address] Performed By: #### 5 8410-2 ####[facility] LABIA [id number] [place] [address] [place] Hemoglobin (Bld) [Mass/Vol] 10.3 g/dL Low 11.5-15.[address] [facility] Comment on above: Order Comment: Speci men Type: BLOOD SPECIMENOrdering Facility: [facility] Address: [address] [place] [address] Performed By: #### 5 8410-2 ####[facility] LABIA [id number] [place] [address] [place] MCH (RBC) [Entitic mass] 29.6 pg Normal 26.0-34.[address] [facility] Comment on above: Order Comment: Speci men Type: BLOOD SPECIMENOrdering Facility: [facility] Address: [address] [place] [address] Performed By: #### 5 8410-2 ####[facility] LABIA [id number] [place] [address] [place] MCHC (RBC) [Mass/Vol] 32.3 g/dL Normal 30.5-36.0 [facility] Comment on above: Order Comment: Speci men Type: BLOOD SPECIMENOrdering Facility: [facility] Address: [address] [place] [address] Performed By: #### 5 8410-2 ####[facility] LABIA [id number] [place] [address] [place] MCV (RBC) [Entitic vol] 91.7 fL Normal 80.0-100.[address] [facility] Comment on above: Order Comment: Speci men Type: BLOOD SPECIMENOrdering Facility: [facility] Address: [address] [place] [address] Performed By: #### 5 8410-2 ####[facility] LABIA [id number] [id number] [address] [place] Nucleated RBC (Bld) [#/Vol] 10*3/uL Normal <0.[address] [facility] Comment on above: Order Comment: Speci men Type: BLOOD SPECIMENOrdering Facility: [facility] Address: [address] [place] [address] Performed By: #### 5 8410-2 ####[facility] LABCLIA [id number] [place] [address] [place] Platelet mean volume (Bld) [Entitic vol] 9.7 fL Normal 9.0-12.[address] [facility] Comment on above: Order Comment: Speci men Type: BLOOD SPECIMENOrdering Facility: [facility] Address: [address] [place] [address] Performed By: #### 5 8410-2 ####[facility] LABCLIA [id number] [place] [address] [place] Platelets (Bld) [#/Vol] 302 10*3/uL Normal 150-[address] [facility] Comment on above: Order Comment: Speci men Type: BLOOD SPECIMENOrdering Facility: [facility] Address: [address] [place] [address] Performed By: #### 5 8410-2 ####[facility] LABCLIA [id number] [place] [address] [place] RBC (Bld) [#/Vol] 3.48 10*6/uL Low 3.90-5.20 [facility] Comment on above: Order Comment: Speci men Type: BLOOD SPECIMENOrdering Facility: [facility] Address: [address] [place] [address] Performed By: #### 5 8410-2 ####[facility] LABCLIA [id number] [place] [address] [place] WBC (Bld) [#/Vol] 18.71 10*3/uL High 3.70-11.00 [facility] Comment on above: Order Comment: Speci men Type: BLOOD SPECIMENOrdering Facility: [facility] Address: [address] [place] [address] Performed By: #### 5 8410-2 ####[facility] LABCLIA [id number] [place] [address] [place] CONSULT PROGon 09-05-2024 CONSULT PROG Normal [facility] Comprehensive metabolic 2000 panelon 09-05-2024 Albumin [Mass/Vol] 3.3 g/dL Low 3.9-4.9 [facility] Comment on above: Order Comment: Speci men Type: BLOOD SPECIMENOrdering Facility: [facility] Address: [address] [place] [address] Performed By: #### 2 4323-8, HSTNT ####[facility] LABCLIA [id number] [place] [address] [place] ALP [Catalytic activity/Vol] 85 U/L Normal 34-[address] [facility] Comment on above: Order Comment: Speci men Type: BLOOD SPECIMENOrdering Facility: [facility] Address: [address] [place] [address] Performed By: #### 2 4323-8, HSTNT ####[facility] LABCLIA [id number] [place] [address] [place] ALT [Catalytic activity/Vol] 27 U/L Normal 7-[address] [facility] Comment on above: Order Comment: Speci men Type: BLOOD SPECIMENOrdering Facility: [facility] Address: [address] [place] [address] Performed By: #### 2 4323-8, HSTNT ####[facility] LABCLIA [id number] [place] [address] [place] Anion gap [Moles/Vol] 12 mmol/L Normal 8-15 [facility] Comment on above: Order Comment: Speci men Type: BLOOD SPECIMENOrdering Facility: [facility] Address: [address] [place] [address] Performed By: #### 2 4323-8, HSTNT ####[facility] LABCLIA [id number] [place] [address] [place] AST [Catalytic activity/Vol] 66 U/L High 13-[address] [facility] Comment on above: Order Comment: Speci men Type: BLOOD SPECIMENOrdering Facility: [facility] Address: [address] [place] [address] Performed By: #### 2 4323-8, HSTNT ####[facility] LABCLIA [id number] [place] [address] [place] Bilirubin [Mass/Vol] 0.5 mg/dL Normal 0.2-1.3 [facility] Comment on above: Order Comment: Speci men Type: BLOOD SPECIMENOrdering Facility: [facility] Address: [address] [place] [address] Performed By: #### 2 4323-8, HSTNT ####[facility] LABCLIA [id number] [place] [address] [place] Calcium [Mass/Vol] 8.3 mg/dL Low 8.5-10.2 [facility] Comment on above: Order Comment: Speci men Type: BLOOD SPECIMENOrdering Facility: [facility] Address: [address] [place], [place] [address] Performed By: #### 2 4323-8, HSTNT ####[facility] LABCLIA [id number] [place] [id number] [place] Chloride [Moles/Vol] 103 mmol/L Normal 98-107 [facility] Comment on above: Order Comment: Speci men Type: BLOOD SPECIMENOrdering Facility: [facility] Address: [address] [place], [place] [address] Performed By: #### 2 4323-8, HSTNT ####[facility] LABCLIA [id number] [place] [address] [place] CO2 [Moles/Vol] 23 mmol/L Normal 22-[address] [facility] Comment on above: Order Comment: Speci men Type: BLOOD SPECIMENOrdering Facility: [facility] Address: [address] [place] [address] Performed By: #### 2 4323-8, HSTNT ####[facility] LABIA [id number] [place] [address] [place] Creatinine [Mass/Vol] 0.73 mg/dL Normal 0.58-0.96 [facility] Comment on above: Order Comment: Speci men Type: BLOOD SPECIMENOrdering Facility: [facility] Address: [address] [place] [address] Performed By: #### 2 4323-8, HSTNT ####[facility] [id number] [place] [address] [place] eGFRcr SerPlBld CKD-EPI 2020 102 mL/min/1.73m??? Normal >=[address] [facility] Comment on above: Order Comment: Speci men Type: BLOOD SPECIMENOrdering Facility: [facility] Address: [address] [place] [address] Result Comment: Tsering mated Glomerular Filtration Rate [...] GFR. Performed By: #### 2 4323-8, HSTNT ####[facility] LABIA [id number] [place] [id number] [place] Glucose [Mass/Vol] 134 mg/dL High 74-99 [facility] Comment on above: Order Comment: Speci men Type: BLOOD SPECIMENOrdering Facility: [facility] Address: [address] [place] [address] Result Comment: The [place] [employer] (ADA) provides guidance for cutoff [...] Standards of Medical Care in Diabetes 2016, [place] [employer]. Diabetes Care. 2016.39(Suppl 1). Performed By: #### 2 4323-8, HSTNT ####[facility] LABCLIA [id number] [place] [address] [place] Potassium [Moles/Vol] 4.8 mmol/L Normal 3.7-5.1 [facility] Comment on above: Order Comment: Speci men Type: BLOOD SPECIMENOrdering Facility: [facility] Address: [address] [place] [address] Performed By: #### 2 4323-8, HSTNT ####[facility] LABIA [id number] [place] [address] [place] Protein [Mass/Vol] 5.7 g/dL Low 6.3-8.0 [facility] Comment on above: Order Comment: Speci men Type: BLOOD SPECIMENOrdering Facility: [facility] Address: [address] [place] [address] Performed By: #### 2 4323-8, HSTNT ####[facility] LABIA [id number] [place] [address] [place] Sodium [Moles/Vol] 138 mmol/L Normal 136-144 [facility] Comment on above: Order Comment: Speci men Type: BLOOD SPECIMENOrdering Facility: [facility] Address: [address] [place], [place] [address] Performed By: #### 2 4323-8, HSTNT ####[facility] LABCLIA [id number] [address] [address] [place] Urea nitrogen [Mass/Vol] 17 mg/dL Normal 7-[address] [facility] Comment on above: Order Comment: Speci men Type: BLOOD SPECIMENOrdering Facility: [facility] Address: [address] [place], [place] [address] Performed By: #### 2 4323-8, HSTNT ####[facility] LABCLIA [id number] [place] [id number] [place] Gas + CO Pnl BldVon 09-06-19 25 Body temperature 98.6 [degF] Normal [facility] Comment on above: Order Comment: Speci men Type: VENOUS BLOOD SPECIMENOrdering Facility: [facility] Address: [address] [place] [address] Performed By: #### 2 4344-4 ####[facility] LABCLIA [id number] [place] [id number] [place] Order Comment: Speci men Type: ARTERIAL BLOOD SPECIMENOrdering Facility: [facility] Address: [address] [place], [place] [address] Performed By: #### A LLBG ####[facility] LABCLIA [id number] [address] [address] [place] O2 THERAPY [place] = Nasal Cannula Normal [facility] Comment on above: Order Comment: Speci men Type: VENOUS BLOOD SPECIMENOrdering Facility: [facility] Address: [address] [place] [address] Performed By: #### 2 4344-4 ####[facility] LABCLIA [id number] [address] [address] [place] Order Comment: Speci men Type: ARTERIAL BLOOD SPECIMENOrdering Facility: [facility] Address: [address] [id number] Performed By: #### A LLBG ####[facility] LABCLIA [id number] [address] [place] [id number] [place] Body temperature 98.6 [degF] Normal [facility] Comment on above: Order Comment: Speci men Type: VENOUS BLOOD SPECIMENOrdering Facility: [facility] Address: [address] [place] [address] Performed By: #### 2 4344-4 ####[facility] LABCLIA [id number] [place] [id number] [place] Order Comment: Speci men Type: ARTERIAL BLOOD SPECIMENOrdering Facility: [facility] Address: [address] [place] [address] Performed By: #### A LLBG ####[facility] LABCLIA [id number] [place] [id number] [place] HCO3 (Bld) [Moles/Vol] 27 mmol/L High 22-26 [facility] Comment on above: Order Comment: Speci men Type: VENOUS BLOOD SPECIMENOrdering Facility: [facility] Address: [address] [place], [place] [address] Performed By: #### 2 4344-4 ####[facility] LABCLIA [id number] [place] [id number] [place] Order Comment: Speci men Type: ARTERIAL BLOOD SPECIMENOrdering Facility: [facility] Address: [address] [place], [place] [address] Performed By: #### A LLBG ####[facility] LABCLIA [id number] [place] [id number] [place] O2 THERAPY Positive Normal [facility] Comment on above: Order Comment: Speci men Type: VENOUS BLOOD SPECIMENOrdering Facility: [facility] Address: [address] [place], [place] [address] Performed By: #### 2 4344-4 ####[facility] LABCLIA [id number] [place] [address] [place] Order Comment: Speci men Type: ARTERIAL BLOOD SPECIMENOrdering Facility: [facility] Address: [address] [place] [address] Performed By: #### A LLBG ####[facility] LABCLIA [id number] [place] [address] [place] Gas and Carbon monoxide pane l (BldV)on 09-05-2024 Base excess Calc (BldV) [Moles/Vol] 2 mmol/L Normal 0-[address] [facility] Comment on above: Order Comment: Speci men Type: VENOUS BLOOD SPECIMENOrdering Facility: [facility] Address: [address] [place] [address] Performed By: #### 2 4344-4 ####[facility] LABIA [id number] [place] [address] [place] Calcium.ionized (Bld) [Mass/Vol] 1.15 mmol/L Normal 1.08-1.[address] [facility] Comment on above: Order Comment: Speci men Type: VENOUS BLOOD SPECIMENOrdering Facility: [facility] Address: [address] [place] [address] Performed By: #### 2 4344-4 ####[facility] LABIA [id number] [place] [address] [place] Calcium.ionized adjusted to pH 7.4 (BldA) [Moles/Vol] 1.11 mmol/L Normal 1.08-1.[address] [facility] Comment on above: Order Comment: Speci men Type: VENOUS BLOOD SPECIMENOrdering Facility: [facility] Address: [address] [place] [address] Performed By: #### 2 4344-4 ####[facility] LABCLIA [id number] [place] [id number] [place] Carboxyhemoglobin (BldV) [Mass fraction] 1.4 % Normal 0.0-2.[address] [facility] Comment on above: Order Comment: Speci men Type: VENOUS BLOOD SPECIMENOrdering Facility: [facility] Address: [address] [place] [address] Result Comment: Carb oxyhemoglobin Reference Range for Smokers: 2.0-8.0% Performed By: #### 2 4344-4 ####[facility] LABCLIA [id number] [place] [address] [place] CO2 (BldV) [Partial pressure] 54 mm[Hg] Normal 42-[address] [facility] Comment on above: Order Comment: Speci men Type: VENOUS BLOOD SPECIMENOrdering Facility: [facility] Address: [address] [place] [address] Performed By: #### 2 4344-4 ####[facility] LABCLIA [id number] [place] [address] [place] Glucose [Mass/Vol] 63 mg/dL Normal 60-105 [facility] Comment on above: Order Comment: Speci men Type: VENOUS BLOOD SPECIMENOrdering Facility: [facility] Address: [address] [place] [address] Performed By: #### 2 4344-4 ####[facility] LABIA [id number] [place] [address] [place] HCO3 (Bld) [Moles/Vol] 28 mmol/L Normal 24-28 [facility] Comment on above: Order Comment: Speci men Type: VENOUS BLOOD SPECIMENOrdering Facility: [facility] Address: [address] [place] [address] Performed By: #### 2 4344-4 ####[facility] LABCLIA [id number] [place] [id number] [place] Hematocrit (Bld) [Volume fraction] 27.7 % Low 36.0-46.[address] [facility] Comment on above: Order Comment: Speci men Type: VENOUS BLOOD SPECIMENOrdering Facility: [facility] Address: [address] [place] [address] Performed By: #### 2 4344-4 ####[facility] LABCLIA [id number] [address] [address] [place] Hemoglobin (Bld) [Mass/Vol] 8.9 g/dL Low 11.5-15.[address] [facility] Comment on above: Order Comment: Speci men Type: VENOUS BLOOD SPECIMENOrdering Facility: [facility] Address: [address] [place] [address] Performed By: #### 2 4344-4 ####[facility] LABCLIA [id number] [place] [address] [place] Lactate [Moles/Vol] 0.7 mmol/L Normal 0.5-2.2 [facility] Comment on above: Order Comment: Speci men Type: VENOUS BLOOD SPECIMENOrdering Facility: [facility] Address: [address] [place] [address] Performed By: #### 2 4344-4 ####[facility] LABIA [id number] [place] [address] [place] Methemoglobin (Bld) [Mass fraction] 1.5 % Normal 0.0-1.[address] [facility] Comment on above: Order Comment: Speci men Type: VENOUS BLOOD SPECIMENOrdering Facility: [facility] Address: [address] [place], [place] [address] Performed By: #### 2 4344-4 ####[facility] LABCLIA [id number] [place] [id number] [place] Oxygen (BldV) [Partial pressure] 34 mm[Hg] Low 35-[address] [facility] Comment on above: Order Comment: Speci men Type: VENOUS BLOOD SPECIMENOrdering Facility: [facility] Address: [address] [place], [place] [address] Performed By: #### 2 4344-4 ####[facility] LABCLIA [id number] [address] [address] [place] Oxygen saturation in Venous blood 53 % Low 60-[address] [facility] Comment on above: Order Comment: Speci men Type: VENOUS BLOOD SPECIMENOrdering Facility: [facility] Address: [address] [place], [place] [address] Performed By: #### 2 4344-4 ####[facility] LABCLIA [id number] [address] [address] [place] Oxyhemoglobin (BldV) [Mass fraction] 52 % Low 60-[address] [facility] Comment on above: Order Comment: Speci men Type: VENOUS BLOOD SPECIMENOrdering Facility: [facility] Address: [address] [place] [address] Performed By: #### 2 4344-4 ####[facility] LABCLIA [id number] [address] [address] [place] pH (BldV) 7.33 [pH] Normal 7.32-7.[address] [facility] Comment on above: Order Comment: Speci men Type: VENOUS BLOOD SPECIMENOrdering Facility: [facility] Address: [address] [place], [place] [address] Performed By: #### 2 4344-4 ####[facility] LABCLIA [id number] [address] [address] [place] Sodium [Moles/Vol] 132 mmol/L Low 136-144 [facility] Comment on above: Order Comment: Speci men Type: VENOUS BLOOD SPECIMENOrdering Facility: [facility] Address: [address] [place], [place] [address] Performed By: #### 2 4344-4 ####[facility] LABCLIA [id number] [address] [address] [place] Base excess Calc (BldV) [Moles/Vol] 2 mmol/L Normal 0-[address] [facility] Comment on above: Order Comment: Speci men Type: VENOUS BLOOD SPECIMENOrdering Facility: [facility] Address: [address] [place] [address] Performed By: #### 2 4344-4 ####[facility] LABCLIA [id number] [place] [address] [place] Calcium.ionized (Bld) [Mass/Vol] 1.16 mmol/L Normal 1.08-1.[address] [facility] Comment on above: Order Comment: Speci men Type: VENOUS BLOOD SPECIMENOrdering Facility: [facility] Address: [address] [place] [address] Performed By: #### 2 4344-4 ####[facility] LABCLIA [id number] [place] [address] [place] Calcium.ionized adjusted to pH 7.4 (BldA) [Moles/Vol] 1.12 mmol/L Normal 1.08-1.[address] [facility] Comment on above: Order Comment: Speci men Type: VENOUS BLOOD SPECIMENOrdering Facility: [facility] Address: [address] [place] [address] Performed By: #### 2 4344-4 ####[facility] LABIA [id number] [place] [address] [place] Carboxyhemoglobin (BldV) [Mass fraction] 1.4 % Normal 0.0-2.[address] [facility] Comment on above: Order Comment: Speci men Type: VENOUS BLOOD SPECIMENOrdering Facility: [facility] Address: [address] [place] [address] Result Comment: Carb oxyhemoglobin Reference Range for Smokers: 2.0-8.0% Performed By: #### 2 4344-4 ####[facility] LABCLIA [id number] [place] [address] [place] CO2 (BldV) [Partial pressure] 52 mm[Hg] Normal 42-[address] [facility] Comment on above: Order Comment: Speci men Type: VENOUS BLOOD SPECIMENOrdering Facility: [facility] Address: [address] [place], [place] [address] Performed By: #### 2 4344-4 ####[facility] LABCLIA [id number] [address] [address] [place] Glucose [Mass/Vol] 71 mg/dL Normal 60-105 [facility] Comment on above: Order Comment: Speci men Type: VENOUS BLOOD SPECIMENOrdering Facility: [facility] Address: [address] [place] [address] Performed By: #### 2 4344-4 ####[facility] LABCLIA [id number] [address] [place] [id number] [place] HCO3 (Bld) [Moles/Vol] 27 mmol/L Normal 24-28 [facility] Comment on above: Order Comment: Speci men Type: VENOUS BLOOD SPECIMENOrdering Facility: [facility] Address: [address] [place], [place] [address] Performed By: #### 2 4344-4 ####[facility] LABCLIA [id number] [address] [place] [id number] [place] Hematocrit (Bld) [Volume fraction] 26.6 % Low 36.0-46.[address] [facility] Comment on above: Order Comment: Speci men Type: VENOUS BLOOD SPECIMENOrdering Facility: [facility] Address: [address] [place], [place] [address] Performed By: #### 2 4344-4 ####[facility] LABIA [id number] [address] [address] [place] Hemoglobin (Bld) [Mass/Vol] 8.6 g/dL Low 11.5-15.[address] [facility] Comment on above: Order Comment: Speci men Type: VENOUS BLOOD SPECIMENOrdering Facility: [facility] Address: [address] [place], [place] [address] Performed By: #### 2 4344-4 ####[facility] LABCLIA [id number] [address] [address] [place] Lactate [Moles/Vol] 0.8 mmol/L Normal 0.5-2.2 [facility] Comment on above: Order Comment: Speci men Type: VENOUS BLOOD SPECIMENOrdering Facility: [facility] Address: [address] [place], [place] [address] Performed By: #### 2 4344-4 ####[facility] LABIA [id number] [address] [place] [address] [place] Methemoglobin (Bld) [Mass fraction] 1.1 % Normal 0.0-1.[address] [facility] Comment on above: Order Comment: Speci men Type: VENOUS BLOOD SPECIMENOrdering Facility: [facility] Address: [address] [place], [place] [address] Performed By: #### 2 4344-4 ####[facility] LABIA [id number] [address] [place] [address] [place] Oxygen (BldV) [Partial pressure] 34 mm[Hg] Low 35-[address] [facility] Comment on above: Order Comment: Speci men Type: VENOUS BLOOD SPECIMENOrdering Facility: [facility] Address: [address] [place], [place] [address] Performed By: #### 2 4344-4 ####[facility] LABIA [id number] [address] [place] [address] [place] Oxygen saturation in Venous blood 60 % Normal 60-[address] [facility] Comment on above: Order Comment: Speci men Type: VENOUS BLOOD SPECIMENOrdering Facility: [facility] Address: [address] [place] [address] Performed By: #### 2 4344-4 ####[facility] LABIA [id number] [address] [place] [address] [place] Oxyhemoglobin (BldV) [Mass fraction] 58 % Low 60-[address] [facility] Comment on above: Order Comment: Speci men Type: VENOUS BLOOD SPECIMENOrdering Facility: [facility] Address: [address] [place] [address] Performed By: #### 2 4344-4 ####[facility] LABCLIA [id number] [address] [address] [place] pH (BldV) 7.34 [pH] Normal 7.32-7.[address] [facility] Comment on above: Order Comment: Speci men Type: VENOUS BLOOD SPECIMENOrdering Facility: [facility] Address: [address] [place] [address] Performed By: #### 2 4344-4 ####[facility] LABCLIA [id number] [place] [address] [place] Potassium [Moles/Vol] 3.7 mmol/L Normal 3.5-5.0 [facility] Comment on above: Order Comment: Speci men Type: VENOUS BLOOD SPECIMENOrdering Facility: [facility] Address: [address] [place] [address] Performed By: #### 2 4344-4 ####[facility] LABIA [id number] [place] [address] [place] Sodium [Moles/Vol] 133 mmol/L Low 136-144 [facility] Comment on above: Order Comment: Speci men Type: VENOUS BLOOD SPECIMENOrdering Facility: [facility] Address: [address] [place] [address] Performed By: #### 2 4344-4 ####[facility] LABCLIA [id number] [place] [id number] [place] Base excess Calc (BldV) [Moles/Vol] 2 mmol/L Normal 0-[address] [facility] Comment on above: Order Comment: Speci men Type: VENOUS BLOOD SPECIMENOrdering Facility: [facility] Address: [address] [place], [place] [address] Performed By: #### 2 4344-4 ####[facility] [id number] [place] [address] [place] Calcium.ionized (Bld) [Mass/Vol] 1.13 mmol/L Normal 1.08-1.[address] [facility] Comment on above: Order Comment: Speci men Type: VENOUS BLOOD SPECIMENOrdering Facility: [facility] Address: [address] [place] [address] Performed By: #### 2 4344-4 ####[facility] [id number] [place] [address] [place] Calcium.ionized adjusted to pH 7.4 (BldA) [Moles/Vol] 1.10 mmol/L Normal 1.08-1.[address] [facility] Comment on above: Order Comment: Speci men Type: VENOUS BLOOD SPECIMENOrdering Facility: [facility] Address: [address] [place] [address] Performed By: #### 2 4344-4 ####[facility] [id number] [place] [address] [place] Carboxyhemoglobin (BldV) [Mass fraction] 1.2 % Normal 0.0-2.[address] [facility] Comment on above: Order Comment: Speci men Type: VENOUS BLOOD SPECIMENOrdering Facility: [facility] Address: [address] [place] [address] Result Comment: Carb oxyhemoglobin Reference Range for Smokers: 2.0-8.0% Performed By: #### 2 4344-4 ####[facility] [id number] [place] [address] [place] CO2 (BldV) [Partial pressure] 53 mm[Hg] Normal 42-[address] [facility] Comment on above: Order Comment: Speci men Type: VENOUS BLOOD SPECIMENOrdering Facility: [facility] Address: [address] [place] [address] Performed By: #### 2 4344-4 ####[facility] LABCLIA [id number] [address] [place] [address] [place] Glucose [Mass/Vol] 74 mg/dL Normal 60-105 [facility] Comment on above: Order Comment: Speci men Type: VENOUS BLOOD SPECIMENOrdering Facility: [facility] Address: [address] [place] [address] Performed By: #### 2 4344-4 ####[facility] LABCLIA [id number] [facility] [address], [facility] [place] HCO3 (Bld) [Moles/Vol] 28 mmol/L Normal 24-28 [facility] Comment on above: Order Comment: Speci men Type: VENOUS BLOOD SPECIMENOrdering Facility: [facility] Address: [address] [place] [address] Performed By: #### 2 4344-4 ####[facility] LABCLIA [id number] [place] [address] [place] Hematocrit (Bld) [Volume fraction] 26.0 % Low 36.0-46.[address] [facility] Comment on above: Order Comment: Speci men Type: VENOUS BLOOD SPECIMENOrdering Facility: [facility] Address: [address] [place] [address] Performed By: #### 2 4344-4 ####[facility] LABCLIA [id number] [place] [id number] [place] Hemoglobin (Bld) [Mass/Vol] 8.4 g/dL Low 11.5-15.[address] [facility] Comment on above: Order Comment: Speci men Type: VENOUS BLOOD SPECIMENOrdering Facility: [facility] Address: [address] [place] [address] Performed By: #### 2 4344-4 ####[facility] LABCLIA [id number] [facility] [address], [facility] [place] Lactate [Moles/Vol] 0.5 mmol/L Normal 0.5-2.2 [facility] Comment on above: Order Comment: Speci men Type: VENOUS BLOOD SPECIMENOrdering Facility: [facility] Address: [address] [id number] Performed By: #### 2 4344-4 ####[facility] LABCLIA [id number] [address] [place] [address] [place] Methemoglobin (Bld) [Mass fraction] 1.1 % Normal 0.0-1.[address] [facility] Comment on above: Order Comment: Speci men Type: VENOUS BLOOD SPECIMENOrdering Facility: [facility] Address: [address] [place] [address] Performed By: #### 2 4344-4 ####[facility] LABCLIA [id number] [address] [place] [address] [place] Oxygen (BldV) [Partial pressure] 35 mm[Hg] Normal 35-[address] [facility] Comment on above: Order Comment: Speci men Type: VENOUS BLOOD SPECIMENOrdering Facility: [facility] Address: [address] [place], [place] [address] Performed By: #### 2 4344-4 ####[facility] LABCLIA [id number] [address] [place] [address] [place] Oxygen saturation in Venous blood 57 % Low 60-[address] [facility] Comment on above: Order Comment: Speci men Type: VENOUS BLOOD SPECIMENOrdering Facility: [facility] Address: [address] [place] [address] Performed By: #### 2 4344-4 ####[facility] LABCLIA [id number] [address] [address] [place] Oxyhemoglobin (BldV) [Mass fraction] 56 % Low 60-[address] [facility] Comment on above: Order Comment: Speci men Type: VENOUS BLOOD SPECIMENOrdering Facility: [facility] Address: [facility] [place] [address] Performed By: #### 2 4344-4 ####[facility] LABIA [id number] [place] [address] [place] pH (BldV) 7.34 [pH] Normal 7.32-7.[address] [facility] Comment on above: Order Comment: Speci men Type: VENOUS BLOOD SPECIMENOrdering Facility: [facility] Address: [address] [place] [address] Performed By: #### 2 4344-4 ####[facility] LABIA [id number] [place] [address] [place] Potassium [Moles/Vol] 3.6 mmol/L Normal 3.5-5.0 [facility] Comment on above: Order Comment: Speci men Type: VENOUS BLOOD SPECIMENOrdering Facility: [facility] Address: [address] [place] [address] Performed By: #### 2 4344-4 ####[facility] LABIA [id number] [place] [address] [place] Sodium [Moles/Vol] 133 mmol/L Low 136-144 [facility] Comment on above: Order Comment: Speci men Type: VENOUS BLOOD SPECIMENOrdering Facility: [facility] Address: [address] [place] [address] Performed By: #### 2 4344-4 ####[facility] LABIA [id number] [place] [address] [place] Base excess Calc (BldV) [Moles/Vol] 3 mmol/L High 0-[address] [facility] Comment on above: Order Comment: Speci men Type: VENOUS BLOOD SPECIMENOrdering Facility: [facility] Address: [address] [place] [address] Performed By: #### 2 4344-4 ####[facility] LABIA [id number] [place] [id number] [place] Calcium.ionized (Bld) [Mass/Vol] 1.17 mmol/L Normal 1.08-1.[address] [facility] Comment on above: Order Comment: Speci men Type: VENOUS BLOOD SPECIMENOrdering Facility: [facility] Address: [address] [place] [address] Performed By: #### 2 4344-4 ####[facility] LABIA [id number] [place] [address] [place] Calcium.ionized adjusted to pH 7.4 (BldA) [Moles/Vol] 1.14 mmol/L Normal 1.08-1.[address] [facility] Comment on above: Order Comment: Speci men Type: VENOUS BLOOD SPECIMENOrdering Facility: [facility] Address: [address] [place] [address] Performed By: #### 2 4344-4 ####[facility] LABIA [id number] [place] [address] [place] Carboxyhemoglobin (BldV) [Mass fraction] 1.2 % Normal 0.0-2.[address] [facility] Comment on above: Order Comment: Speci men Type: VENOUS BLOOD SPECIMENOrdering Facility: [facility] Address: [address] [place] [address] Result Comment: Carb oxyhemoglobin Reference Range for Smokers: 2.0-8.0% Performed By: #### 2 4344-4 ####[facility] LABIA [id number] [place] [address] [place] CO2 (BldV) [Partial pressure] 52 mm[Hg] Normal 42-[address] [facility] Comment on above: Order Comment: Speci men Type: VENOUS BLOOD SPECIMENOrdering Facility: [facility] Address: [address] [place] [address] Performed By: #### 2 4344-4 ####[facility] LABCLIA [id number] [place] [address] [place] Glucose [Mass/Vol] 79 mg/dL Normal 60-105 [facility] Comment on above: Order Comment: Speci men Type: VENOUS BLOOD SPECIMENOrdering Facility: [facility] Address: [address] [place] [address] Performed By: #### 2 4344-4 ####[facility] LABCLIA [id number] [address] [address] [place] HCO3 (Bld) [Moles/Vol] 28 mmol/L Normal 24-28 [facility] Comment on above: Order Comment: Speci men Type: VENOUS BLOOD SPECIMENOrdering Facility: [facility] Address: [address] [place] [address] Performed By: #### 2 4344-4 ####[facility] LABIA [id number] [place] [address] [place] Hematocrit (Bld) [Volume fraction] 28.2 % Low 36.0-46.[address] [facility] Comment on above: Order Comment: Speci men Type: VENOUS BLOOD SPECIMENOrdering Facility: [facility] Address: [address] [place] [address] Performed By: #### 2 4344-4 ####[facility]IA [id number] [place] [address] [place] Hemoglobin (Bld) [Mass/Vol] 9.1 g/dL Low 11.5-15.[address] [facility] Comment on above: Order Comment: Speci men Type: VENOUS BLOOD SPECIMENOrdering Facility: [facility] Address: [address] [place] [address] Performed By: #### 2 4344-4 ####[facility]IA [id number] [place] [id number] [place] Methemoglobin (Bld) [Mass fraction] 1.4 % Normal 0.0-1.[address] [facility] Comment on above: Order Comment: Speci men Type: VENOUS BLOOD SPECIMENOrdering Facility: [facility] Address: [address] [place] [address] Performed By: #### 2 4344-4 ####[facility] LABCLIA [id number] [place] [id number] [place] Oxygen (BldV) [Partial pressure] 38 mm[Hg] Normal 35-[address] [facility] Comment on above: Order Comment: Speci men Type: VENOUS BLOOD SPECIMENOrdering Facility: [facility] Address: [address] [place] [address] Performed By: #### 2 4344-4 ####[facility] [id number] [place] [id number] [place] Oxygen saturation in Venous blood 62 % Normal 60-[address] [facility] Comment on above: Order Comment: Speci men Type: VENOUS BLOOD SPECIMENOrdering Facility: [facility] Address: [address] [place] [address] Performed By: #### 2 4344-4 ####[facility]IA [id number] [place] [id number] [place] Oxyhemoglobin (BldV) [Mass fraction] 60 % Normal 60-[address] [facility] Comment on above: Order Comment: Speci men Type: VENOUS BLOOD SPECIMENOrdering Facility: [facility] Address: [address] [place] [address] Performed By: #### 2 4344-4 ####[facility]IA [id number] [place] [id number] [place] pH (BldV) 7.35 [pH] Normal 7.32-7.[address] [facility] Comment on above: Order Comment: Speci men Type: VENOUS BLOOD SPECIMENOrdering Facility: [facility] Address: [address] [place], [place] [address] Performed By: #### 2 4344-4 ####[facility] [id number] [place] [id number] [place] Base excess Calc (BldV) [Moles/Vol] 2 mmol/L Normal 0-[address] [facility] Comment on above: Order Comment: Speci men Type: VENOUS BLOOD SPECIMENOrdering Facility: [facility] Address: [address] [place] [address] Performed By: #### 2 4344-4 ####[facility] LABCLIA [id number] [place] [address] [place] Calcium.ionized (Bld) [Mass/Vol] 1.20 mmol/L Normal 1.08-1.[address] [facility] Comment on above: Order Comment: Speci men Type: VENOUS BLOOD SPECIMENOrdering Facility: [facility] Address: [address] [place] [address] Performed By: #### 2 4344-4 ####[facility]IA [id number] [place] [address] [place] Calcium.ionized adjusted to pH 7.4 (BldA) [Moles/Vol] 1.16 mmol/L Normal 1.08-1.[address] [facility] Comment on above: Order Comment: Speci men Type: VENOUS BLOOD SPECIMENOrdering Facility: [facility] Address: [address] [place] [address] Performed By: #### 2 4344-4 ####[facility]IA [id number] [place] [address] [place] Carboxyhemoglobin (BldV) [Mass fraction] 1.3 % Normal 0.0-2.[address] [facility] Comment on above: Order Comment: Speci men Type: VENOUS BLOOD SPECIMENOrdering Facility: [facility] Address: [address] [place] [address] Result Comment: Carb oxyhemoglobin Reference Range for Smokers: 2.0-8.0% Performed By: #### 2 4344-4 ####[facility] LABCLIA [id number] [place] [address] [place] CO2 (BldV) [Partial pressure] 53 mm[Hg] Normal 42-[address] [facility] Comment on above: Order Comment: Speci men Type: VENOUS BLOOD SPECIMENOrdering Facility: [facility] Address: [address] [place], [place] [address] Performed By: #### 2 4344-4 ####[facility] LABCLIA [id number] [address] [address] [place] Glucose [Mass/Vol] 97 mg/dL Normal 60-105 [facility] Comment on above: Order Comment: Speci men Type: VENOUS BLOOD SPECIMENOrdering Facility: [facility] Address: [address] [place] [address] Performed By: #### 2 4344-4 ####[facility]IA [id number] [place] [id number] [place] HCO3 (Bld) [Moles/Vol] 28 mmol/L Normal 24-28 [facility] Comment on above: Order Comment: Speci men Type: VENOUS BLOOD SPECIMENOrdering Facility: [facility] Address: [address] [place] [address] Performed By: #### 2 4344-4 ####[facility]IA [id number] [place] [address] [place] Hematocrit (Bld) [Volume fraction] 28.2 % Low 36.0-46.[address] [facility] Comment on above: Order Comment: Speci men Type: VENOUS BLOOD SPECIMENOrdering Facility: [facility] Address: [address] [place], [place] [address] Performed By: #### 2 4344-4 ####[facility]IA [id number] [place] [id number] [place] Lactate [Moles/Vol] 0.7 mmol/L Normal 0.5-2.2 [facility] Comment on above: Order Comment: Speci men Type: VENOUS BLOOD SPECIMENOrdering Facility: [facility] Address: [address] [place] [address] Performed By: #### 2 4344-4 ####[facility] LABCLIA [id number] [address] [place] [address] [place] Methemoglobin (Bld) [Mass fraction] 1.1 % Normal 0.0-1.[address] [facility] Comment on above: Order Comment: Speci men Type: VENOUS BLOOD SPECIMENOrdering Facility: [facility] Address: [address] [place] [address] Performed By: #### 2 4344-4 ####[facility]IA [id number] [address] [place] [address] [place] Oxygen (BldV) [Partial pressure] 37 mm[Hg] Normal 35-[address] [facility] Comment on above: Order Comment: Speci men Type: VENOUS BLOOD SPECIMENOrdering Facility: [facility] Address: [address] [place] [address] Performed By: #### 2 4344-4 ####[facility]IA [id number] [address], [facility] [place] Oxygen saturation in Venous blood 59 % Low 60-[address] [facility] Comment on above: Order Comment: Speci men Type: VENOUS BLOOD SPECIMENOrdering Facility: [facility] Address: [address] [place] [address] Performed By: #### 2 4344-4 ####[facility]IA [id number] [address] [place] [address] [place] Oxyhemoglobin (BldV) [Mass fraction] 58 % Low 60-[address] [facility] Comment on above: Order Comment: Speci men Type: VENOUS BLOOD SPECIMENOrdering Facility: [facility] Address: [address] [place], [place] [address] Performed By: #### 2 4344-4 ####[facility]IA [id number] [address] [place] [address] [place] pH (BldV) 7.34 [pH] Normal 7.32-7.[address] [facility] Comment on above: Order Comment: Speci men Type: VENOUS BLOOD SPECIMENOrdering Facility: [facility] Address: [address] [place] [address] Performed By: #### 2 4344-4 ####[facility] LABCLIA [id number] [place] [address] [place] Sodium [Moles/Vol] 136 mmol/L Normal 136-144 [facility] Comment on above: Order Comment: Speci men Type: VENOUS BLOOD SPECIMENOrdering Facility: [facility] Address: [address] [place] [address] Performed By: #### 2 4344-4 ####[facility]IA [id number] [place] [address] [place] Base excess Calc (BldV) [Moles/Vol] 2 mmol/L Normal 0-[address] [facility] Comment on above: Order Comment: Speci men Type: VENOUS BLOOD SPECIMENOrdering Facility: [facility] Address: [address] [place] [address] Performed By: #### 2 4344-4 ####[facility]IA [id number] [place] [address] [place] Calcium.ionized (Bld) [Mass/Vol] 1.18 mmol/L Normal 1.08-1.[address] [facility] Comment on above: Order Comment: Speci men Type: VENOUS BLOOD SPECIMENOrdering Facility: [facility] Address: [address] [place] [address] Performed By: #### 2 4344-4 ####[facility]IA [id number] [place] [address] [place] Calcium.ionized adjusted to pH 7.4 (BldA) [Moles/Vol] 1.15 mmol/L Normal 1.08-1.[address] [facility] Comment on above: Order Comment: Speci men Type: VENOUS BLOOD SPECIMENOrdering Facility: [facility] Address: [address] [place] [address] Performed By: #### 2 4344-4 ####[facility] [id number] [place] [address] [place] Carboxyhemoglobin (BldV) [Mass fraction] 1.2 % Normal 0.0-2.[address] [facility] Comment on above: Order Comment: Speci men Type: VENOUS BLOOD SPECIMENOrdering Facility: [facility] Address: [address] [place] [address] Result Comment: Carb oxyhemoglobin Reference Range for Smokers: 2.0-8.0% Performed By: #### 2 4344-4 ####[facility] [id number] [place] [address] [place] CO2 (BldV) [Partial pressure] 52 mm[Hg] Normal 42-[address] [facility] Comment on above: Order Comment: Speci men Type: VENOUS BLOOD SPECIMENOrdering Facility: [facility] Address: [address] [place] [address] Performed By: #### 2 4344-4 ####[facility] [id number] [place] [address] [place] Glucose [Mass/Vol] 108 mg/dL High 60-105 [facility] Comment on above: Order Comment: Speci men Type: VENOUS BLOOD SPECIMENOrdering Facility: [facility] Address: [address] [place] [address] Performed By: #### 2 4344-4 ####[facility] [id number] [place] [id number] [place] HCO3 (Bld) [Moles/Vol] 28 mmol/L Normal 24-28 [facility] Comment on above: Order Comment: Speci men Type: VENOUS BLOOD SPECIMENOrdering Facility: [facility] Address: [address] [place] [address] Performed By: #### 2 4344-4 ####[facility] LABCLIA [id number] [address] [address] [place] Hematocrit (Bld) [Volume fraction] 29.0 % Low 36.0-46.[address] [facility] Comment on above: Order Comment: Speci men Type: VENOUS BLOOD SPECIMENOrdering Facility: [facility] Address: [address] [place], [place] [address] Performed By: #### 2 4344-4 ####[facility]IA [id number] [address] [address] [place] Hemoglobin (Bld) [Mass/Vol] 9.3 g/dL Low 11.5-15.[address] [facility] Comment on above: Order Comment: Speci men Type: VENOUS BLOOD SPECIMENOrdering Facility: [facility] Address: [address] [place] [address] Performed By: #### 2 4344-4 ####[facility]IA [id number] [address] [address] [place] Oxygen (BldV) [Partial pressure] 37 mm[Hg] Normal 35-[address] [facility] Comment on above: Order Comment: Speci men Type: VENOUS BLOOD SPECIMENOrdering Facility: [facility] Address: [address] [place] [address] Performed By: #### 2 4344-4 ####[facility]IA [id number] [address] [address] [place] Oxygen saturation in Venous blood 62 % Normal 60-[address] [facility] Comment on above: Order Comment: Speci men Type: VENOUS BLOOD SPECIMENOrdering Facility: [facility] Address: [address] [place], [place] [address] Performed By: #### 2 4344-4 ####[facility] LABCLIA [id number] [address] [address] [place] Oxyhemoglobin (BldV) [Mass fraction] 60 % Normal 60-[address] [facility] Comment on above: Order Comment: Speci men Type: VENOUS BLOOD SPECIMENOrdering Facility: [facility] Address: [address] [place] [address] Performed By: #### 2 4344-4 ####[facility]IA [id number] [place] [address] [place] pH (BldV) 7.35 [pH] Normal 7.32-7.[address] [facility] Comment on above: Order Comment: Speci men Type: VENOUS BLOOD SPECIMENOrdering Facility: [facility] Address: [address] [place] [address] Performed By: #### 2 4344-4 ####[facility]IA [id number] [place] [address] [place] Sodium [Moles/Vol] 135 mmol/L Low 136-144 [facility] Comment on above: Order Comment: Speci men Type: VENOUS BLOOD SPECIMENOrdering Facility: [facility] Address: [address] [place] [address] Performed By: #### 2 4344-4 ####[facility]IA [id number] [place] [address] [place] Base excess Calc (BldV) [Moles/Vol] 3 mmol/L High 0-[address] [facility] Comment on above: Order Comment: Speci men Type: VENOUS BLOOD SPECIMENOrdering Facility: [facility] Address: [address] [place] [address] Performed By: #### 2 4344-4 ####[facility]IA [id number] [place] [address] [place] Calcium.ionized adjusted to pH 7.4 (BldA) [Moles/Vol] 1.13 mmol/L Normal 1.08-1.[address] [facility] Comment on above: Order Comment: Speci men Type: VENOUS BLOOD SPECIMENOrdering Facility: [facility] Address: [address] [place] [address] Performed By: #### 2 4344-4 ####[facility] LABCLIA [id number] [place] [address] [place] Carboxyhemoglobin (BldV) [Mass fraction] 1.3 % Normal 0.0-2.[address] [facility] Comment on above: Order Comment: Speci men Type: VENOUS BLOOD SPECIMENOrdering Facility: [facility] Address: [address] [place] [address] Result Comment: Carb oxyhemoglobin Reference Range for Smokers: 2.0-8.0% Performed By: #### 2 4344-4 ####[facility]CLIA [id number] [place] [address] [place] CO2 (BldV) [Partial pressure] 54 mm[Hg] Normal 42-[address] [facility] Comment on above: Order Comment: Speci men Type: VENOUS BLOOD SPECIMENOrdering Facility: [facility] Address: [address] [place] [address] Performed By: #### 2 4344-4 ####[facility] LABCLIA [id number] [place] [address] [place] Glucose [Mass/Vol] 125 mg/dL High 60-105 [facility] Comment on above: Order Comment: Speci men Type: VENOUS BLOOD SPECIMENOrdering Facility: [facility] Address: [address] [place] [address] Performed By: #### 2 4344-4 ####[facility] LABCLIA [id number] [place] [address] [place] HCO3 (Bld) [Moles/Vol] 29 mmol/L High 24-28 [facility] Comment on above: Order Comment: Speci men Type: VENOUS BLOOD SPECIMENOrdering Facility: [facility] Address: [address] [place] [address] Performed By: #### 2 4344-4 ####[facility] LABCLIA [id number] [address] [address] [place] Hematocrit (Bld) [Volume fraction] 30.2 % Low 36.0-46.[address] [facility] Comment on above: Order Comment: Speci men Type: VENOUS BLOOD SPECIMENOrdering Facility: [facility] Address: [address] [place] [address] Performed By: #### 2 4344-4 ####[facility] LABCLIA [id number] [place] [address] [place] Hemoglobin (Bld) [Mass/Vol] 9.8 g/dL Low 11.5-15.[address] [facility] Comment on above: Order Comment: Speci men Type: VENOUS BLOOD SPECIMENOrdering Facility: [facility] Address: [address] [place] [address] Performed By: #### 2 4344-4 ####[facility] LABCLIA [id number] [place] [address] [place] Methemoglobin (Bld) [Mass fraction] 1.0 % Normal 0.0-1.[address] [facility] Comment on above: Order Comment: Speci men Type: VENOUS BLOOD SPECIMENOrdering Facility: [facility] Address: [address] [place] [address] Performed By: #### 2 4344-4 ####[facility] LABCLIA [id number] [place] [address] [place] Oxygen (BldV) [Partial pressure] 33 mm[Hg] Low 35-[address] [facility] Comment on above: Order Comment: Speci men Type: VENOUS BLOOD SPECIMENOrdering Facility: [facility] Address: [address] [place] [address] Performed By: #### 2 4344-4 ####[facility] LABCLIA [id number] [place] [id number] [place] Oxygen saturation in Venous blood 52 % Low 60-[address] [facility] Comment on above: Order Comment: Speci men Type: VENOUS BLOOD SPECIMENOrdering Facility: [facility] Address: [address] [place], [place] [address] Performed By: #### 2 4344-4 ####[facility] LABCLIA [id number] [address] [address] [place] Oxyhemoglobin (BldV) [Mass fraction] 51 % Low 60-[address] [facility] Comment on above: Order Comment: Speci men Type: VENOUS BLOOD SPECIMENOrdering Facility: [facility] Address: [address] [place] [address] Performed By: #### 2 4344-4 ####[facility] LABCLIA [id number] [place] [address] [place] pH (BldV) 7.35 [pH] Normal 7.32-7.[address] [facility] Comment on above: Order Comment: Speci men Type: VENOUS BLOOD SPECIMENOrdering Facility: [facility] Address: [address] [place] [address] Performed By: #### 2 4344-4 ####[facility] LABCLIA [id number] [place] [id number] [place] Potassium [Moles/Vol] 4.2 mmol/L Normal 3.5-5.0 [facility] Comment on above: Order Comment: Speci men Type: VENOUS BLOOD SPECIMENOrdering Facility: [facility] Address: [address] [place], [place] [address] Performed By: #### 2 4344-4 ####[facility] LABCLIA [id number] [address] [address] [place] Sodium [Moles/Vol] 137 mmol/L Normal 136-144 [facility] Comment on above: Order Comment: Speci men Type: VENOUS BLOOD SPECIMENOrdering Facility: [facility] Address: [address] [place], [place] [address] Performed By: #### 2 4344-4 ####[facility] LABCLIA [id number] [place] [address] [place] Base excess Calc (BldV) [Moles/Vol] 2 mmol/L Normal 0-[address] [facility] Comment on above: Order Comment: Speci men Type: VENOUS BLOOD SPECIMENOrdering Facility: [facility] Address: [address] [place] [address] Performed By: #### 2 4344-4 ####[facility] [id number] [place] [address] [place] Calcium.ionized (Bld) [Mass/Vol] 1.19 mmol/L Normal 1.08-1.[address] [facility] Comment on above: Order Comment: Speci men Type: VENOUS BLOOD SPECIMENOrdering Facility: [facility] Address: [address] [place] [address] Performed By: #### 2 4344-4 ####[facility] [id number] [place] [address] [place] Calcium.ionized adjusted to pH 7.4 (BldA) [Moles/Vol] 1.17 mmol/L Normal 1.08-1.[address] [facility] Comment on above: Order Comment: Speci men Type: VENOUS BLOOD SPECIMENOrdering Facility: [facility] Address: [address] [place] [address] Performed By: #### 2 4344-4 ####[facility] [id number] [place] [address] [place] Carboxyhemoglobin (BldV) [Mass fraction] 1.3 % Normal 0.0-2.[address] [facility] Comment on above: Order Comment: Speci men Type: VENOUS BLOOD SPECIMENOrdering Facility: [facility] Address: [address] [place] [address] Result Comment: Carb oxyhemoglobin Reference Range for Smokers: 2.0-8.0% Performed By: #### 2 4344-4 ####[facility]CLIA [id number] [address] [place] [address] [place] CO2 (BldV) [Partial pressure] 51 mm[Hg] Normal 42-[address] [facility] Comment on above: Order Comment: Speci men Type: VENOUS BLOOD SPECIMENOrdering Facility: [facility] Address: [address] [place] [address] Performed By: #### 2 4344-4 ####[facility]CLIA [id number] [address], [facility]95 [place] Glucose [Mass/Vol] 124 mg/dL High 60-105 [facility] Comment on above: Order Comment: Speci men Type: VENOUS BLOOD SPECIMENOrdering Facility: [facility] Address: [address] [place] [address] Performed By: #### 2 4344-4 ####[facility]CLIA [id number] [place] [address] [place] HCO3 (Bld) [Moles/Vol] 28 mmol/L Normal 24-28 [facility] Comment on above: Order Comment: Speci men Type: VENOUS BLOOD SPECIMENOrdering Facility: [facility] Address: [address] [place] [address] Performed By: #### 2 4344-4 ####[facility]CLIA [id number] [place] [id number] [place] Hematocrit (Bld) [Volume fraction] 31.6 % Low 36.0-46.[address] [facility] Comment on above: Order Comment: Speci men Type: VENOUS BLOOD SPECIMENOrdering Facility: [facility] Address: [address] [place] [address] Performed By: #### 2 4344-4 ####[facility]CLIA [id number] [place] [id number] [place] Hemoglobin (Bld) [Mass/Vol] 10.2 g/dL Low 11.5-15.[address] [facility] Comment on above: Order Comment: Speci men Type: VENOUS BLOOD SPECIMENOrdering Facility: [facility] Address: [address] [place] [id number] Performed By: #### 2 4344-4 ####[facility]CLIA [id number] [address] [address] [place] Lactate [Moles/Vol] 0.9 mmol/L Normal 0.5-2.2 [facility] Comment on above: Order Comment: Speci men Type: VENOUS BLOOD SPECIMENOrdering Facility: [facility] Address: [address] [place], [place] [address] Performed By: #### 2 4344-4 ####[facility]CLIA [id number] [place] [id number] [place] Methemoglobin (Bld) [Mass fraction] 1.3 % Normal 0.0-1.[address] [facility] Comment on above: Order Comment: Speci men Type: VENOUS BLOOD SPECIMENOrdering Facility: [facility] Address: [address] [place], [place] [address] Performed By: #### 2 4344-4 ####[facility]CLIA [id number] [place] [id number] [place] Oxygen (BldV) [Partial pressure] 32 mm[Hg] Low 35-[address] [facility] Comment on above: Order Comment: Speci men Type: VENOUS BLOOD SPECIMENOrdering Facility: [facility] Address: [address] [place], [place] [id number] Performed By: #### 2 4344-4 ####[facility] LABCLIA [id number] [place] [id number] [place] Oxygen saturation in Venous blood 50 % Low 60-[address] [facility] Comment on above: Order Comment: Speci men Type: VENOUS BLOOD SPECIMENOrdering Facility: [facility] Address: [address] [place], [place] [address] Performed By: #### 2 4344-4 ####[facility] LABCLIA [id number] [address] [address] [place] Oxyhemoglobin (BldV) [Mass fraction] 49 % Low 60-[address] [facility] Comment on above: Order Comment: Speci men Type: VENOUS BLOOD SPECIMENOrdering Facility: [facility] Address: [address] [place] [address] Performed By: #### 2 4344-4 ####[facility] LABCLIA [id number] [place] [address] [place] pH (BldV) 7.36 [pH] Normal 7.32-7.[address] [facility] Comment on above: Order Comment: Speci men Type: VENOUS BLOOD SPECIMENOrdering Facility: [facility] Address: [address] [place] [address] Performed By: #### 2 4344-4 ####[facility] LABIA [id number] [place] [address] [place] Potassium [Moles/Vol] 4.3 mmol/L Normal 3.5-5.0 [facility] Comment on above: Order Comment: Speci men Type: VENOUS BLOOD SPECIMENOrdering Facility: [facility] Address: [address] [place] [address] Performed By: #### 2 4344-4 ####[facility] LABIA [id number] [place] [id number] [place] Sodium [Moles/Vol] 141 mmol/L Normal 136-144 [facility] Comment on above: Order Comment: Speci men Type: VENOUS BLOOD SPECIMENOrdering Facility: [facility] Address: [address] [place] [address] Performed By: #### 2 4344-4 ####[facility] LABCLIA [id number] [address] [address] [place] Base excess Calc (BldV) [Moles/Vol] 3 mmol/L High 0-[address] [facility] Comment on above: Order Comment: Speci men Type: VENOUS BLOOD SPECIMENOrdering Facility: [facility] Address: [address] [place] [address] Performed By: #### 2 4344-4 ####[facility] LABIA [id number] [place] [address] [place] Calcium.ionized adjusted to pH 7.4 (BldA) [Moles/Vol] 1.13 mmol/L Normal 1.08-1.[address] [facility] Comment on above: Order Comment: Speci men Type: VENOUS BLOOD SPECIMENOrdering Facility: [facility] Address: [address] [place] [address] Performed By: #### 2 4344-4 ####[facility] LABIA [id number] [place] [address] [place] Carboxyhemoglobin (BldV) [Mass fraction] 1.2 % Normal 0.0-2.[address] [facility] Comment on above: Order Comment: Speci men Type: VENOUS BLOOD SPECIMENOrdering Facility: [facility] Address: [address] [place] [address] Result Comment: Carb oxyhemoglobin Reference Range for Smokers: 2.0-8.0% Performed By: #### 2 4344-4 ####[facility]UN[facility] [id number] [place] [address] [place] CO2 (BldV) [Partial pressure] 51 mm[Hg] Normal 42-[address] [facility] Comment on above: Order Comment: Speci men Type: VENOUS BLOOD SPECIMENOrdering Facility: [facility] Address: [address] [place] [address] Performed By: #### 2 4344-4 ####[facility] LABIA [id number] [place] [id number] [place] Glucose [Mass/Vol] 140 mg/dL High 60-105 [facility] Comment on above: Order Comment: Speci men Type: VENOUS BLOOD SPECIMENOrdering Facility: [facility] Address: [address] [place] [address] Performed By: #### 2 4344-4 ####[facility] LABCLIA [id number] [place] [address] [place] HCO3 (Bld) [Moles/Vol] 29 mmol/L High 24-28 [facility] Comment on above: Order Comment: Speci men Type: VENOUS BLOOD SPECIMENOrdering Facility: [facility] Address: [address] [place] [address] Performed By: #### 2 4344-4 ####[facility] LABCLIA [id number] [place] [address] [place] Hematocrit (Bld) [Volume fraction] 30.3 % Low 36.0-46.[address] [facility] Comment on above: Order Comment: Speci men Type: VENOUS BLOOD SPECIMENOrdering Facility: [facility] Address: [address] [place] [address] Performed By: #### 2 4344-4 ####[facility] LABCLIA [id number] [place] [address] [place] Hemoglobin (Bld) [Mass/Vol] 9.8 g/dL Low 11.5-15.[address] [facility] Comment on above: Order Comment: Speci men Type: VENOUS BLOOD SPECIMENOrdering Facility: [facility] Address: [address] [place] [address] Performed By: #### 2 4344-4 ####[facility] LABCLIA [id number] [place] [id number] [place] Lactate [Moles/Vol] 0.8 mmol/L Normal 0.5-2.2 [facility] Comment on above: Order Comment: Speci men Type: VENOUS BLOOD SPECIMENOrdering Facility: [facility] Address: [address] [place], [place] [address] Performed By: #### 2 4344-4 ####[facility] LABCLIA [id number] [address] [address] [place] Methemoglobin (Bld) [Mass fraction] 0.9 % Normal 0.0-1.[address] [facility] Comment on above: Order Comment: Speci men Type: VENOUS BLOOD SPECIMENOrdering Facility: [facility] Address: [address] [place], [place] [address] Performed By: #### 2 4344-4 ####[facility] LABCLIA [id number] [address] [address] [place] Oxygen (BldV) [Partial pressure] 37 mm[Hg] Normal 35-[address] [facility] Comment on above: Order Comment: Speci men Type: VENOUS BLOOD SPECIMENOrdering Facility: [facility] Address: [address] [place], [place] [address] Performed By: #### 2 4344-4 ####[facility] LABCLIA [id number] [address] [address] [place] Oxygen saturation in Venous blood 63 % Normal 60-[address] [facility] Comment on above: Order Comment: Speci men Type: VENOUS BLOOD SPECIMENOrdering Facility: [facility] Address: [address] [place], [place] [address] Performed By: #### 2 4344-4 ####[facility] LABCLIA [id number] [address] [address] [place] Oxyhemoglobin (BldV) [Mass fraction] 61 % Normal 60-[address] [facility] Comment on above: Order Comment: Speci men Type: VENOUS BLOOD SPECIMENOrdering Facility: [facility] Address: [address] [place], [place] [address] Performed By: #### 2 4344-4 ####[facility] LABCLIA [id number] [address] [address] [place] pH (BldV) 7.37 [pH] Normal 7.32-7.[address] [facility] Comment on above: Order Comment: Speci men Type: VENOUS BLOOD SPECIMENOrdering Facility: [facility] Address: [address] [place] [address] Performed By: #### 2 4344-4 ####[facility] LABCLIA [id number] [place] [address] [place] Sodium [Moles/Vol] 136 mmol/L Normal 136-144 [facility] Comment on above: Order Comment: Speci men Type: VENOUS BLOOD SPECIMENOrdering Facility: [facility] Address: [address] [place] [address] Performed By: #### 2 4344-4 ####[facility] LABIA [id number] [place] [address] [place] Base excess Calc (BldV) [Moles/Vol] 2 mmol/L Normal 0-[address] [facility] Comment on above: Order Comment: Speci men Type: VENOUS BLOOD SPECIMENOrdering Facility: [facility] Address: [address] [place] [address] Performed By: #### 2 4344-4 ####[facility] LABIA [id number] [place] [address] [place] Calcium.ionized (Bld) [Mass/Vol] 1.13 mmol/L Normal 1.08-1.[address] [facility] Comment on above: Order Comment: Speci men Type: VENOUS BLOOD SPECIMENOrdering Facility: [facility] Address: [address] [place] [address] Performed By: #### 2 4344-4 ####[facility] LABIA [id number] [place] [address] [place] Calcium.ionized adjusted to pH 7.4 (BldA) [Moles/Vol] 1.11 mmol/L Normal 1.08-1.[address] [facility] Comment on above: Order Comment: Speci men Type: VENOUS BLOOD SPECIMENOrdering Facility: [facility] Address: [address] [place] [address] Performed By: #### 2 4344-4 ####[facility] LABCLIA [id number] [address] [place] Carboxyhemoglobin (BldV) [Mass fraction] 1.6 % Normal 0.0-2.[address] [facility] Comment on above: Order Comment: Speci men Type: VENOUS BLOOD SPECIMENOrdering Facility: [facility] Address: [address] [place] [address] Result Comment: Carb oxyhemoglobin Reference Range for Smokers: 2.0-8.0% Performed By: #### 2 4344-4 ####[facility] LABCLIA [id number] [place] [address] [place] CO2 (BldV) [Partial pressure] 49 mm[Hg] Normal 42-[address] [facility] Comment on above: Order Comment: Speci men Type: VENOUS BLOOD SPECIMENOrdering Facility: [facility] Address: [address] [place] [address] Performed By: #### 2 4344-4 ####[facility] LABCLIA [id number] [place] [address] [place] Glucose [Mass/Vol] 137 mg/dL High 60-105 [facility] Comment on above: Order Comment: Speci men Type: VENOUS BLOOD SPECIMENOrdering Facility: [facility] Address: [address] [place] [address] Performed By: #### 2 4344-4 ####[facility] LABCLIA [id number] [place] [address] [place] Hematocrit (Bld) [Volume fraction] 29.6 % Low 36.0-46.[address] [facility] Comment on above: Order Comment: Speci men Type: VENOUS BLOOD SPECIMENOrdering Facility: [facility] Address: [address] [place] [address] Performed By: #### 2 4344-4 ####[facility] LABCLIA [id number] [address] [address] [place] Hemoglobin (Bld) [Mass/Vol] 9.5 g/dL Low 11.5-15.[address] [facility] Comment on above: Order Comment: Speci men Type: VENOUS BLOOD SPECIMENOrdering Facility: [facility] Address: [address] [place] [address] Performed By: #### 2 4344-4 ####[facility] LABIA [id number] [place] [id number] [place] Lactate [Moles/Vol] 0.7 mmol/L Normal 0.5-2.2 [facility] Comment on above: Order Comment: Speci men Type: VENOUS BLOOD SPECIMENOrdering Facility: [facility] Address: [address] [place] [address] Performed By: #### 2 4344-4 ####[facility] LABIA [id number] [address], [facility] [place] Methemoglobin (Bld) [Mass fraction] 1.8 % High 0.0-1.[address] [facility] Comment on above: Order Comment: Speci men Type: VENOUS BLOOD SPECIMENOrdering Facility: [facility] Address: [address] [place] [address] Performed By: #### 2 4344-4 ####[facility] LABIA [id number] [place] [id number] [place] Oxygen (BldV) [Partial pressure] 42 mm[Hg] Normal 35-[address] [facility] Comment on above: Order Comment: Speci men Type: VENOUS BLOOD SPECIMENOrdering Facility: [facility] Address: [address] [place] [address] Performed By: #### 2 4344-4 ####[facility] LABIA [id number] [address] [address] [place] Oxygen saturation in Venous blood 70 % Normal 60-[address] [facility] Comment on above: Order Comment: Speci men Type: VENOUS BLOOD SPECIMENOrdering Facility: [facility] Address: [address] [place], [place] [address] Performed By: #### 2 4344-4 ####[facility] LABCLIA [id number] [address] [address] [place] Oxyhemoglobin (BldV) [Mass fraction] 68 % Normal 60-[address] [facility] Comment on above: Order Comment: Speci men Type: VENOUS BLOOD SPECIMENOrdering Facility: [facility] Address: [address] [place], [place] [address] Performed By: #### 2 4344-4 ####[facility] LABCLIA [id number] [place] [address] [place] pH (BldV) 7.36 [pH] Normal 7.32-7.[address] [facility] Comment on above: Order Comment: Speci men Type: VENOUS BLOOD SPECIMENOrdering Facility: [facility] Address: [address] [place], [place] [address] Performed By: #### 2 4344-4 ####[facility] LABCLIA [id number] [place] [address] [place] Potassium [Moles/Vol] 4.1 mmol/L Normal 3.5-5.0 [facility] Comment on above: Order Comment: Speci men Type: VENOUS BLOOD SPECIMENOrdering Facility: [facility] Address: [address] [place], [place] [address] Performed By: #### 2 4344-4 ####[facility] LABCLIA [id number] [place] [id number] [place] Sodium [Moles/Vol] 137 mmol/L Normal 136-144 [facility] Comment on above: Order Comment: Speci men Type: VENOUS BLOOD SPECIMENOrdering Facility: [facility] Address: [address] [place], [place] [address] Performed By: #### 2 4344-4 ####[facility] LABCLIA [id number] [place] [address] [place] Base excess Calc (BldV) [Moles/Vol] 1 mmol/L Normal 0-[address] [facility] Comment on above: Order Comment: Speci men Type: VENOUS BLOOD SPECIMENOrdering Facility: [facility] Address: [address] [place] [address] Performed By: #### 2 4344-4 ####[facility] LABIA [id number] [place] [address] [place] Calcium.ionized (Bld) [Mass/Vol] 1.11 mmol/L Normal 1.08-1.[address] [facility] Comment on above: Order Comment: Speci men Type: VENOUS BLOOD SPECIMENOrdering Facility: [facility] Address: [address] [place] [address] Performed By: #### 2 4344-4 ####[facility] LABIA [id number] [place] [address] [place] Calcium.ionized adjusted to pH 7.4 (BldA) [Moles/Vol] 1.08 mmol/L Normal 1.08-1.[address] [facility] Comment on above: Order Comment: Speci men Type: VENOUS BLOOD SPECIMENOrdering Facility: [facility] Address: [address] [place] [address] Performed By: #### 2 4344-4 ####[facility] LABIA [id number] [place] [address] [place] Carboxyhemoglobin (BldV) [Mass fraction] 1.6 % Normal 0.0-2.[address] [facility] Comment on above: Order Comment: Speci men Type: VENOUS BLOOD SPECIMENOrdering Facility: [facility] Address: [address] [place] [address] Result Comment: Carb oxyhemoglobin Reference Range for Smokers: 2.0-8.0% Performed By: #### 2 4344-4 ####[facility] LABCLIA [id number] [place] [id number] [place] CO2 (BldV) [Partial pressure] 51 mm[Hg] Normal 42-[address] [facility] Comment on above: Order Comment: Speci men Type: VENOUS BLOOD SPECIMENOrdering Facility: [facility] Address: [address] [place] [address] Performed By: #### 2 4344-4 ####[facility] LABCLIA [id number] [place] [address] [place] Glucose [Mass/Vol] 149 mg/dL High 60-105 [facility] Comment on above: Order Comment: Speci men Type: VENOUS BLOOD SPECIMENOrdering Facility: [facility] Address: [address] [place] [address] Performed By: #### 2 4344-4 ####[facility] LABCLIA [id number] [place] [address] [place] HCO3 (Bld) [Moles/Vol] 27 mmol/L Normal 24-28 [facility] Comment on above: Order Comment: Speci men Type: VENOUS BLOOD SPECIMENOrdering Facility: [facility] Address: [address] [place] [address] Performed By: #### 2 4344-4 ####[facility] LABCLIA [id number] [place] [address] [place] Hematocrit (Bld) [Volume fraction] 30.6 % Low 36.0-46.[address] [facility] Comment on above: Order Comment: Speci men Type: VENOUS BLOOD SPECIMENOrdering Facility: [facility] Address: [address] [place] [address] Performed By: #### 2 4344-4 ####[facility] LABCLIA [id number] [place] [id number] [place] Hemoglobin (Bld) [Mass/Vol] 9.9 g/dL Low 11.5-15.[address] [facility] Comment on above: Order Comment: Speci men Type: VENOUS BLOOD SPECIMENOrdering Facility: [facility] Address: [address] [place] [address] Performed By: #### 2 4344-4 ####[facility] LABCLIA [id number] [address] [place] [address] [place] Methemoglobin (Bld) [Mass fraction] 0.9 % Normal 0.0-1.[address] [facility] Comment on above: Order Comment: Speci men Type: VENOUS BLOOD SPECIMENOrdering Facility: [facility] Address: [address] [place] [address] Performed By: #### 2 4344-4 ####[facility] LABCLIA [id number] [address] [place] [address] [place] Oxygen (BldV) [Partial pressure] 42 mm[Hg] Normal 35-[address] [facility] Comment on above: Order Comment: Speci men Type: VENOUS BLOOD SPECIMENOrdering Facility: [facility] Address: [address] [place] [address] Performed By: #### 2 4344-4 ####[facility] LABCLIA [id number] [address] [place] [address] [place] Oxygen saturation in Venous blood 70 % Normal 60-[address] [facility] Comment on above: Order Comment: Speci men Type: VENOUS BLOOD SPECIMENOrdering Facility: [facility] Address: [address] [place] [address] Performed By: #### 2 4344-4 ####[facility] LABCLIA [id number] [address] [place] [address] [place] Oxyhemoglobin (BldV) [Mass fraction] 68 % Normal 60-[address] [facility] Comment on above: Order Comment: Speci men Type: VENOUS BLOOD SPECIMENOrdering Facility: [facility] Address: [address] [place] [address] Performed By: #### 2 4344-4 ####[facility] LABCLIA [id number] [place] [address] [place] pH (BldV) 7.35 [pH] Normal 7.32-7.[address] [facility] Comment on above: Order Comment: Speci men Type: VENOUS BLOOD SPECIMENOrdering Facility: [facility] Address: [address] [place] [address] Performed By: #### 2 4344-4 ####[facility] LABIA [id number] [place] [address] [place] Potassium [Moles/Vol] 4.1 mmol/L Normal 3.5-5.0 [facility] Comment on above: Order Comment: Speci men Type: VENOUS BLOOD SPECIMENOrdering Facility: [facility] Address: [address] [place] [address] Performed By: #### 2 4344-4 ####[facility] LABIA [id number] [place] [address] [place] Base excess Calc (BldV) [Moles/Vol] 0 mmol/L Normal 0-[address] [facility] Comment on above: Order Comment: Speci men Type: VENOUS BLOOD SPECIMENOrdering Facility: [facility] Address: [address] [place] [address] Performed By: #### 2 4344-4 ####[facility] LABIA [id number] [place] [address] [place] Calcium.ionized (Bld) [Mass/Vol] 1.21 mmol/L Normal 1.08-1.[address] [facility] Comment on above: Order Comment: Speci men Type: VENOUS BLOOD SPECIMENOrdering Facility: [facility] Address: [address] [place] [address] Performed By: #### 2 4344-4 ####[facility] LABIA [id number] [place] [address] [place] Calcium.ionized adjusted to pH 7.4 (BldA) [Moles/Vol] 1.14 mmol/L Normal 1.08-1.[address] [facility] Comment on above: Order Comment: Speci men Type: VENOUS BLOOD SPECIMENOrdering Facility: [facility] Address: [address] [place] [address] Performed By: #### 2 4344-4 ####[facility] LABCLIA [id number] [place] [address] [place] Carboxyhemoglobin (BldV) [Mass fraction] 1.3 % Normal 0.0-2.[address] [facility] Comment on above: Order Comment: Speci men Type: VENOUS BLOOD SPECIMENOrdering Facility: [facility] Address: [address] [place] [address] Result Comment: Carb oxyhemoglobin Reference Range for Smokers: 2.0-8.0% Performed By: #### 2 4344-4 ####[facility] LABCLIA [id number] [place] [address] [place] CO2 (BldV) [Partial pressure] 58 mm[Hg] High 42-[address] [facility] Comment on above: Order Comment: Speci men Type: VENOUS BLOOD SPECIMENOrdering Facility: [facility] Address: [address] [place] [address] Performed By: #### 2 4344-4 ####[facility] LABCLIA [id number] [place] [address] [place] Glucose [Mass/Vol] 143 mg/dL High 60-105 [facility] Comment on above: Order Comment: Speci men Type: VENOUS BLOOD SPECIMENOrdering Facility: [facility] Address: [address] [place] [address] Performed By: #### 2 4344-4 ####[facility] LABCLIA [id number] [place] [id number] [place] HCO3 (Bld) [Moles/Vol] 27 mmol/L Normal 24-28 [facility] Comment on above: Order Comment: Speci men Type: VENOUS BLOOD SPECIMENOrdering Facility: [facility] Address: [address] [place] [address] Performed By: #### 2 4344-4 ####[facility] LABCLIA [id number] [place] [address] [place] Hematocrit (Bld) [Volume fraction] 32.7 % Low 36.0-46.[address] [facility] Comment on above: Order Comment: Speci men Type: VENOUS BLOOD SPECIMENOrdering Facility: [facility] Address: [address] [place] [address] Performed By: #### 2 4344-4 ####[facility] LABCLIA [id number] [place] [address] [place] Hemoglobin (Bld) [Mass/Vol] 10.6 g/dL Low 11.5-15.[address] [facility] Comment on above: Order Comment: Speci men Type: VENOUS BLOOD SPECIMENOrdering Facility: [facility] Address: [address] [place] [address] Performed By: #### 2 4344-4 ####[facility] LABIA [id number] [place] [address] [place] Lactate [Moles/Vol] 0.9 mmol/L Normal 0.5-2.2 [facility] Comment on above: Order Comment: Speci men Type: VENOUS BLOOD SPECIMENOrdering Facility: [facility] Address: [address] [place] [address] Performed By: #### 2 4344-4 ####[facility] LABCLIA [id number] [place] [address] [place] Methemoglobin (Bld) [Mass fraction] 1.7 % High 0.0-1.[address] [facility] Comment on above: Order Comment: Speci men Type: VENOUS BLOOD SPECIMENOrdering Facility: [facility] Address: [address] [place] [address] Performed By: #### 2 4344-4 ####[facility] LABCLIA [id number] [address] [place] [address] [place] Oxygen (BldV) [Partial pressure] 44 mm[Hg] Normal 35-[address] [facility] Comment on above: Order Comment: Speci men Type: VENOUS BLOOD SPECIMENOrdering Facility: [facility] Address: [address] [place] [address] Performed By: #### 2 4344-4 ####[facility] LABCLIA [id number] [address] [place] [address] [place] Oxygen saturation in Venous blood 69 % Normal 60-[address] [facility] Comment on above: Order Comment: Speci men Type: VENOUS BLOOD SPECIMENOrdering Facility: [facility] Address: [address] [place] [address] Performed By: #### 2 4344-4 ####[facility] LABIA [id number] [address] [address] [place] Oxyhemoglobin (BldV) [Mass fraction] 66 % Normal 60-[address] [facility] Comment on above: Order Comment: Speci men Type: VENOUS BLOOD SPECIMENOrdering Facility: [facility] Address: [address] [place], [place] [id number] Performed By: #### 2 4344-4 ####[facility] LABIA [id number] [address] [address] [place] pH (BldV) 7.29 [pH] Low 7.32-7.[address] [facility] Comment on above: Order Comment: Speci men Type: VENOUS BLOOD SPECIMENOrdering Facility: [facility] Address: [address] [place], [place] [address] Performed By: #### 2 4344-4 ####[facility] LABCLIA [id number] [address] [place] [address] [place] Sodium [Moles/Vol] 140 mmol/L Normal 136-144 [facility] Comment on above: Order Comment: Speci men Type: VENOUS BLOOD SPECIMENOrdering Facility: [facility] Address: [address] [place] [address] Performed By: #### 2 4344-4 ####[facility] LABCLIA [id number] [address] [address] [place] HIGH SENSITIVITY TROPONIN To n 09-05-2024 Troponin T.cardiac High sensitivity method [Mass/Vol] 397 ng/L High <[address] [facility] Comment on above: Order Comment: Speci men Type: BLOOD SPECIMENOrdering Facility: [facility] Address: [address] [place] [address] Performed By: #### 2 4323-8, HSTNT ####[facility] LABCLIA [id number] [place] [address] [place] XR CHEST 1V FRONTAL PORTon 0 09-05-2024 XR CHEST 1V FRONTAL PORT Normal [facility] ANES POSTPROC EVALon 025 ANES POSTPROC EVAL Normal [facility] ANES PRE-OPon 09-04-2024 ANES PRE-OP Normal [facility] ARTERIAL BLOOD GASESon 09-04 Base excess Calc (Bld) [Moles/Vol] 0 mmol/L Normal 0-[address] [facility] Comment on above: Order Comment: Speci men Type: ARTERIAL BLOOD SPECIMENOrdering Facility: [facility] Address: [address] [place] [address] Performed By: #### A LLBG ####[facility] LABCLIA [id number] [place] [id number] [place] Body temperature 98.6 [degF] Normal [facility] Comment on above: Order Comment: Speci men Type: ARTERIAL BLOOD SPECIMENOrdering Facility: [facility] Address: [address] [place] [address] Performed By: #### A LLBG ####[facility] LABCLIA [id number] [place] [address] [place] Order Comment: Speci men Type: VENOUS BLOOD SPECIMENOrdering Facility: [facility] Address: [address] [place] [address] Performed By: #### 2 4344-4 ####[facility] LABCLIA [id number] [place] [address] [place] Calcium.ionized (Bld) [Mass/Vol] 1.20 mmol/L Normal 1.08-1.[address] [facility] Comment on above: Order Comment: Speci men Type: ARTERIAL BLOOD SPECIMENOrdering Facility: [facility] Address: [address] [place] [address] Performed By: #### A LLBG ####[facility] LABCLIA [id number] [place] [address] [place] Calcium.ionized adjusted to pH 7.4 (BldA) [Moles/Vol] 1.13 mmol/L Normal 1.08-1.[address] [facility] Comment on above: Order Comment: Speci men Type: ARTERIAL BLOOD SPECIMENOrdering Facility: [facility] Address: [address] [place] [address] Performed By: #### A LLBG ####[facility] LABCLIA [id number] [place] [address] [place] Carboxyhemoglobin (BldA) [Mass fraction] 1.3 % Normal 0.0-2.[address] [facility] Comment on above: Order Comment: Speci men Type: ARTERIAL BLOOD SPECIMENOrdering Facility: [facility] Address: [address] [place] [address] Result Comment: Carb oxyhemoglobin Reference Range for Smokers: 2.0-8.0% Performed By: #### A LLBG ####[facility] LABCLIA [id number] [place] [id number] [place] CO2 (Bld) [Partial pressure] 58 mm Hg High 36-[address] [facility] Comment on above: Order Comment: Speci men Type: ARTERIAL BLOOD SPECIMENOrdering Facility: [facility] Address: [address] [place] [address] Performed By: #### A LLBG ####[facility] LABCLIA [id number] [address] [place] [address] [place] Glucose [Mass/Vol] 149 mg/dL High 60-105 [facility] Comment on above: Order Comment: Speci men Type: ARTERIAL BLOOD SPECIMENOrdering Facility: [facility] Address: [address] [place] [address] Performed By: #### A LLBG ####[facility] LABCLIA [id number] [place] [address] [place] HCO3 (Bld) [Moles/Vol] 27 mmol/L Normal 24-28 [facility] Comment on above: Order Comment: Speci men Type: ARTERIAL BLOOD SPECIMENOrdering Facility: [facility] Address: [address] [place] [address] Performed By: #### A LLBG ####[facility] LABCLIA [id number] [place] [address] [place] Order Comment: Speci men Type: VENOUS BLOOD SPECIMENOrdering Facility: [facility] Address: [address] [place] [address] Performed By: #### 2 4344-4 ####[facility] LABCLIA [id number] [place] [id number] [place] Hematocrit (Bld) [Volume fraction] 32.5 % Low 36.0-46.[address] [facility] Comment on above: Order Comment: Speci men Type: ARTERIAL BLOOD SPECIMENOrdering Facility: [facility] Address: [address] [place] [address] Performed By: #### A LLBG ####[facility] LABCLIA [id number] [place] [id number] [place] Hemoglobin (Bld) [Mass/Vol] 10.5 g/dL Low 11.5-15.[address] [facility] Comment on above: Order Comment: Speci men Type: ARTERIAL BLOOD SPECIMENOrdering Facility: [facility] Address: [address] [place] [address] Performed By: #### A LLBG ####[facility] LABCLIA [id number] [place] [address] [place] Lactate [Moles/Vol] 1.6 mmol/L Normal 0.5-2.2 [facility] Comment on above: Order Comment: Speci men Type: ARTERIAL BLOOD SPECIMENOrdering Facility: [facility] Address: [address] [place] [address] Performed By: #### A LLBG ####[facility] LABCLIA [id number] [place] [address] [place] Methemoglobin (Bld) [Mass fraction] 1.0 % Normal 0.0-1.[address] [facility] Comment on above: Order Comment: Speci men Type: ARTERIAL BLOOD SPECIMENOrdering Facility: [facility] Address: [address] [place] [address] Performed By: #### A LLBG ####[facility] LABCLIA [id number] [place] [address] [place] O2 THERAPY NC = Nasal Cannula Normal [facility] Comment on above: Order Comment: Speci men Type: ARTERIAL BLOOD SPECIMENOrdering Facility: [facility] Address: [address] [place] [address] Performed By: #### A LLBG ####[facility] LABCLIA [id number] [place] [id number] [place] Order Comment: Speci men Type: VENOUS BLOOD SPECIMENOrdering Facility: [facility] Address: [address] [place] [address] Performed By: #### 2 4344-4 ####[facility] LABCLIA [id number] [address] [place] [address] [place] Oxygen (Bld) [Partial pressure] 78 mm Hg Low 85-[address] [facility] Comment on above: Order Comment: Speci men Type: ARTERIAL BLOOD SPECIMENOrdering Facility: [facility] Address: [address] [place] [address] Performed By: #### A LLBG ####[facility] LABCLIA [id number] [place] [id number] [place] Oxyhemoglobin (BldA) [Mass fraction] 91 % Low 95-[address] [facility] Comment on above: Order Comment: Speci men Type: ARTERIAL BLOOD SPECIMENOrdering Facility: [facility] Address: [address] [place] [address] Performed By: #### A LLBG ####[facility] LABIA [id number] [place] [id number] [place] pH (Bld) 7.29 [pH] Low 7.35-7.[address] [facility] Comment on above: Order Comment: Speci men Type: ARTERIAL BLOOD SPECIMENOrdering Facility: [facility] Address: [address] [place] [address] Performed By: #### A LLBG ####[facility] LABCLIA [id number] [address] [address] [place] Potassium [Moles/Vol] 4.6 mmol/L Normal 3.5-5.0 [facility] Comment on above: Order Comment: Speci men Type: ARTERIAL BLOOD SPECIMENOrdering Facility: [facility] Address: [address] [place] [address] Performed By: #### A LLBG ####[facility] LABCLIA [id number] [place] [id number] [place] Sodium [Moles/Vol] 136 mmol/L Normal 136-144 [facility] Comment on above: Order Comment: Speci men Type: ARTERIAL BLOOD SPECIMENOrdering Facility: [facility] Address: [address] [place] [address] Performed By: #### A LLBG ####[facility] LABCLIA [id number] [place] [address] [place] Base excess Calc (Bld) [Moles/Vol] 1 mmol/L Normal 0-[address] [facility] Comment on above: Order Comment: Speci men Type: ARTERIAL BLOOD SPECIMENOrdering Facility: [facility] Address: [address] [place] [address] Performed By: #### A LLBG ####[facility] LABCLIA [id number] [place] [address] [place] Body temperature 98.6 [degF] Normal [facility] Comment on above: Order Comment: Speci men Type: ARTERIAL BLOOD SPECIMENOrdering Facility: [facility] Address: [address] [place] [address] Performed By: #### A LLBG ####[facility] LABCLIA [id number] [place] [address] [place] Order Comment: Speci men Type: VENOUS BLOOD SPECIMENOrdering Facility: [facility] Address: [address] [place] [address] Performed By: #### 2 4344-4 ####[facility] LABCLIA [id number] [place] [address] [place] Calcium.ionized (Bld) [Mass/Vol] 1.19 mmol/L Normal 1.08-1.[address] [facility] Comment on above: Order Comment: Speci men Type: ARTERIAL BLOOD SPECIMENOrdering Facility: [facility] Address: [address] [place] [address] Performed By: #### A LLBG ####[facility] LABCLIA [id number] [address] [place] Calcium.ionized adjusted to pH 7.4 (BldA) [Moles/Vol] 1.16 mmol/L Normal 1.08-1.[address] [facility] Comment on above: Order Comment: Speci men Type: ARTERIAL BLOOD SPECIMENOrdering Facility: [facility] Address: [address] [place] [address] Performed By: #### A LLBG ####[facility] LABCLIA [id number] [place] [address] [place] Carboxyhemoglobin (BldA) [Mass fraction] 1.2 % Normal 0.0-2.[address] [facility] Comment on above: Order Comment: Speci men Type: ARTERIAL BLOOD SPECIMENOrdering Facility: [facility] Address: [address] [place] [address] Result Comment: Carb oxyhemoglobin Reference Range for Smokers: 2.0-8.0% Performed By: #### A LLBG ####[facility] LABCLIA [id number] [place] [address] [place] CO2 (Bld) [Partial pressure] 48 mm Hg High 36-[address] [facility] Comment on above: Order Comment: Speci men Type: ARTERIAL BLOOD SPECIMENOrdering Facility: [facility] Address: [address] [place] [address] Performed By: #### A LLBG ####[facility] LABCLIA [id number] [place] [address] [place] FIO2 30 % Normal [facility] Comment on above: Order Comment: Speci men Type: ARTERIAL BLOOD SPECIMENOrdering Facility: [facility] Address: [address] [place] [address] Performed By: #### A LLBG ####[facility] LABCLIA [id number] [place] [id number] [place] Order Comment: Speci men Type: VENOUS BLOOD SPECIMENOrdering Facility: [facility] Address: [address] [place] [address] Performed By: #### 2 4344-4 ####[facility] LABCLIA [id number] [address] [place] [address] [place] Glucose [Mass/Vol] 170 mg/dL High 60-105 [facility] Comment on above: Order Comment: Speci men Type: ARTERIAL BLOOD SPECIMENOrdering Facility: [facility] Address: [address] [place] [address] Performed By: #### A LLBG ####[facility] LABCLIA [id number] [address], [facility] [place] HCO3 (Bld) [Moles/Vol] 26 mmol/L Normal 24-28 [facility] Comment on above: Order Comment: Speci men Type: ARTERIAL BLOOD SPECIMENOrdering Facility: [facility] Address: [address] [place] [address] Performed By: #### A LLBG ####[facility] LABIA [id number] [place] [address] [place] Order Comment: Speci men Type: VENOUS BLOOD SPECIMENOrdering Facility: [facility] Address: [address] [place] [address] Performed By: #### 2 4344-4 ####[facility] LABIA [id number] [place] [address] [place] Hematocrit (Bld) [Volume fraction] 32.7 % Low 36.0-46.[address] [facility] Comment on above: Order Comment: Speci men Type: ARTERIAL BLOOD SPECIMENOrdering Facility: [facility] Address: [address] [place] [address] Performed By: #### A LLBG ####[facility] LABIA [id number] [place] [id number] [place] Hemoglobin (Bld) [Mass/Vol] 10.6 g/dL Low 11.5-15.[address] [facility] Comment on above: Order Comment: Speci men Type: ARTERIAL BLOOD SPECIMENOrdering Facility: [facility] Address: [address] [place] [address] Performed By: #### A LLBG ####[facility] LABCLIA [id number] [address] [place] [address] [place] Lactate [Moles/Vol] 1.7 mmol/L Normal 0.5-2.2 [facility] Comment on above: Order Comment: Speci men Type: ARTERIAL BLOOD SPECIMENOrdering Facility: [facility] Address: [address] [place], [place] [address] Performed By: #### A LLBG ####[facility] LABCLIA [id number] [address] [place] [address] [place] Methemoglobin (Bld) [Mass fraction] 1.1 % Normal 0.0-1.[address] [facility] Comment on above: Order Comment: Speci men Type: ARTERIAL BLOOD SPECIMENOrdering Facility: [facility] Address: [address] [place] [address] Performed By: #### A LLBG ####[facility] LABCLIA [id number] [address] [place] [address] [place] O2 THERAPY Positive Normal [facility] Comment on above: Order Comment: Speci men Type: ARTERIAL BLOOD SPECIMENOrdering Facility: [facility] Address: [address] [place], [place] [address] Performed By: #### A LLBG ####[facility] LABCLIA [id number] [address] [place] [address] [place] Order Comment: Speci men Type: VENOUS BLOOD SPECIMENOrdering Facility: [facility] Address: [address] [place], [place] [address] Performed By: #### 2 4344-4 ####[facility] LABCLIA [id number] [address] [place] [address] [place] Oxygen (Bld) [Partial pressure] 116 mm Hg High 85-[address] [facility] Comment on above: Order Comment: Speci men Type: ARTERIAL BLOOD SPECIMENOrdering Facility: [facility] Address: [address] [place] [address] Performed By: #### A LLBG ####[facility] LABCLIA [id number] [place] [address] [place] Oxyhemoglobin (BldA) [Mass fraction] 96 % Normal 95-[address] [facility] Comment on above: Order Comment: Speci men Type: ARTERIAL BLOOD SPECIMENOrdering Facility: [facility] Address: [address] [place] [address] Performed By: #### A LLBG ####[facility] LABIA [id number] [place] [address] [place] pH (Bld) 7.36 [pH] Normal 7.35-7.[address] [facility] Comment on above: Order Comment: Speci men Type: ARTERIAL BLOOD SPECIMENOrdering Facility: [facility] Address: [address] [place] [address] Performed By: #### A LLBG ####[facility] LABIA [id number] [place] [address] [place] PO2 / FIO2 RATIO 387 mmHg Normal >300 [facility] Comment on above: Order Comment: Speci men Type: ARTERIAL BLOOD SPECIMENOrdering Facility: [facility] Address: [address] [place] [address] Performed By: #### A LLBG ####[facility] LABIA [id number] [place] [address] [place] Potassium [Moles/Vol] 4.5 mmol/L Normal 3.5-5.0 [facility] Comment on above: Order Comment: Speci men Type: ARTERIAL BLOOD SPECIMENOrdering Facility: [facility] Address: [address] [place] [address] Performed By: #### A LLBG ####[facility] LABIA [id number] [id number] [address] [place] Sodium [Moles/Vol] 135 mmol/L Low 136-144 [facility] Comment on above: Order Comment: Speci men Type: ARTERIAL BLOOD SPECIMENOrdering Facility: [facility] Address: [address] [place] [address] Performed By: #### A LLBG ####[facility] LABCLIA [id number] [place] [address] [place] Base excess Calc (Bld) [Moles/Vol] 1 mmol/L Normal 0-[address] [facility] Comment on above: Order Comment: Speci men Type: ARTERIAL BLOOD SPECIMENOrdering Facility: [facility] Address: [address] [place] [address] Performed By: #### A LLBG ####[facility] LABCLIA [id number] [address] [place] Body temperature 98.6 [degF] Normal [facility] Comment on above: Order Comment: Speci men Type: ARTERIAL BLOOD SPECIMENOrdering Facility: [facility] Address: [address] [place] [address] Performed By: #### A LLBG ####[facility] LABCLIA [id number] [place] [address] [place] Calcium.ionized (Bld) [Mass/Vol] 1.16 mmol/L Normal 1.08-1.[address] [facility] Comment on above: Order Comment: Speci men Type: ARTERIAL BLOOD SPECIMENOrdering Facility: [facility] Address: [address] [place] [address] Performed By: #### A LLBG ####[facility] LABCLIA [id number] [place] [id number] [place] Calcium.ionized adjusted to pH 7.4 (BldA) [Moles/Vol] 1.16 mmol/L Normal 1.08-1.[address] [facility] Comment on above: Order Comment: Speci men Type: ARTERIAL BLOOD SPECIMENOrdering Facility: [facility] Address: [address] [place] [address] Performed By: #### A LLBG ####[facility] LABCLIA [id number] [place] [address] [place] Carboxyhemoglobin (BldA) [Mass fraction] 1.9 % Normal 0.0-2.[address] [facility] Comment on above: Order Comment: Speci men Type: ARTERIAL BLOOD SPECIMENOrdering Facility: [facility] Address: [address] [place] [address] Result Comment: Carb oxyhemoglobin Reference Range for Smokers: 2.0-8.0% Performed By: #### A LLBG ####[facility] LABCLIA [id number] [place] [address] [place] CO2 (Bld) [Partial pressure] 41 mm Hg Normal 36-[address] [facility] Comment on above: Order Comment: Speci men Type: ARTERIAL BLOOD SPECIMENOrdering Facility: [facility] Address: [address] [place] [address] Performed By: #### A LLBG ####[facility] LABCLIA [id number] [place] [address] [place] FIO2 30 % Normal [facility] Comment on above: Order Comment: Speci men Type: ARTERIAL BLOOD SPECIMENOrdering Facility: [facility] Address: [address] [place] [address] Performed By: #### A LLBG ####[facility] LABCLIA [id number] [place] [id number] [place] Glucose [Mass/Vol] 187 mg/dL High 60-105 [facility] Comment on above: Order Comment: Speci men Type: ARTERIAL BLOOD SPECIMENOrdering Facility: [facility] Address: [address] [place] [address] Performed By: #### A LLBG ####[facility] LABCLIA [id number] [place] [id number] [place] HCO3 (Bld) [Moles/Vol] 25 mmol/L Normal 22-26 [facility] Comment on above: Order Comment: Speci men Type: ARTERIAL BLOOD SPECIMENOrdering Facility: [facility] Address: [address] [place] [address] Performed By: #### A LLBG ####[facility] LABCLIA [id number] [place] [address] [place] Hematocrit (Bld) [Volume fraction] 32.6 % Low 36.0-46.[address] [facility] Comment on above: Order Comment: Speci men Type: ARTERIAL BLOOD SPECIMENOrdering Facility: [facility] Address: [address] [place] [address] Performed By: #### A LLBG ####[facility] LABCLIA [id number] [place] [address] [place] Hemoglobin (Bld) [Mass/Vol] 10.5 g/dL Low 11.5-15.[address] [facility] Comment on above: Order Comment: Speci men Type: ARTERIAL BLOOD SPECIMENOrdering Facility: [facility] Address: [address] [place] [address] Performed By: #### A LLBG ####[facility] LABCLIA [id number] [place] [address] [place] INVASIVE VENTILATOR MODE Pressure Support, CPAP (PC-CSVs) Normal [facility] Comment on above: Order Comment: Speci men Type: ARTERIAL BLOOD SPECIMENOrdering Facility: [facility] Address: [address] [place] [address] Result Comment: ps 5 mmhg Performed By: #### A LLBG ####[facility] LABCLIA [id number] [place] [address] [place] Lactate [Moles/Vol] 1.4 mmol/L Normal 0.5-2.2 [facility] Comment on above: Order Comment: Speci men Type: ARTERIAL BLOOD SPECIMENOrdering Facility: [facility] Address: [address] [place] [address] Performed By: #### A LLBG ####[facility] LABCLIA [id number] [place] [id number] [place] Methemoglobin (Bld) [Mass fraction] 1.1 % Normal 0.0-1.[address] [facility] Comment on above: Order Comment: Speci men Type: ARTERIAL BLOOD SPECIMENOrdering Facility: [facility] Address: [address] [place] [address] Performed By: #### A LLBG ####[facility] LABCLIA [id number] [place] [address] [place] O2 THERAPY VENT=Ventilator Normal [facility] Comment on above: Order Comment: Speci men Type: ARTERIAL BLOOD SPECIMENOrdering Facility: [facility] Address: [address] [place] [address] Performed By: #### A LLBG ####[facility] LABCLIA [id number] [place] [id number] [place] Oxygen (Bld) [Partial pressure] 102 mm Hg High 85-[address] [facility] Comment on above: Order Comment: Speci men Type: ARTERIAL BLOOD SPECIMENOrdering Facility: [facility] Address: [address] [place] [address] Performed By: #### A LLBG ####[facility] LABCLIA [id number] [place] [id number] [place] Oxyhemoglobin (BldA) [Mass fraction] 95 % Normal 95-[address] [facility] Comment on above: Order Comment: Speci men Type: ARTERIAL BLOOD SPECIMENOrdering Facility: [facility] Address: [address] [place] [address] Performed By: #### A LLBG ####[facility] LABCLIA [id number] [place] [id number] [place] PEEP/CPAP 5 cmH2O Normal [facility] Comment on above: Order Comment: Speci men Type: ARTERIAL BLOOD SPECIMENOrdering Facility: [facility] Address: [address] [place] [address] Performed By: #### A LLBG ####[facility] LABCLIA [id number] [address] [address] [place] [place] pH (Bld) 7.40 [pH] Normal 7.35-7.[address] [facility] Comment on above: Order Comment: Speci men Type: ARTERIAL BLOOD SPECIMENOrdering Facility: [facility] Address: [address] [place] [address] Performed By: #### A LLBG ####[facility] LABCLIA [id number] [place] [address] [place] PO2 / FIO2 RATIO 340 mmHg Normal >300 [facility] Comment on above: Order Comment: Speci men Type: ARTERIAL BLOOD SPECIMENOrdering Facility: [facility] Address: [address] [place] [address] Performed By: #### A LLBG ####[facility] LABCLIA [id number] [place] [address] [place] Potassium [Moles/Vol] 4.5 mmol/L Normal 3.5-5.0 [facility] Comment on above: Order Comment: Speci men Type: ARTERIAL BLOOD SPECIMENOrdering Facility: [facility] Address: [address] [place] [address] Performed By: #### A LLBG ####[facility] LABCLIA [id number] [place] [id number] [place] Sodium [Moles/Vol] 135 mmol/L Low 136-144 [facility] Comment on above: Order Comment: Speci men Type: ARTERIAL BLOOD SPECIMENOrdering Facility: [facility] Address: [address] [place], [place] [address] Performed By: #### A LLBG ####[facility] LABCLIA [id number] [address] [place] [address] [place] Base deficit (BldA) [Moles/Vol] mmol/L Normal -2-[address] [facility] Comment on above: Order Comment: Speci men Type: ARTERIAL BLOOD SPECIMENOrdering Facility: [facility] Address: [address] [place] [address] Performed By: #### A LLBG ####[facility] LABCLIA [id number] [place] [id number] [place] Body temperature 98.6 [degF] Normal [facility] Comment on above: Order Comment: Speci men Type: ARTERIAL BLOOD SPECIMENOrdering Facility: [facility] Address: [address] [place] [address] Performed By: #### A LLBG ####[facility] LABCLIA [id number] [address] [place] Order Comment: Speci men Type: VENOUS BLOOD SPECIMENOrdering Facility: [facility] Address: [address] [place] [address] Performed By: #### 2 4344-4 ####[facility] LABCLIA [id number] [address] [place] Calcium.ionized (Bld) [Mass/Vol] 1.15 mmol/L Normal 1.08-1.[address] [facility] Comment on above: Order Comment: Speci men Type: ARTERIAL BLOOD SPECIMENOrdering Facility: [facility] Address: [address] [place] [address] Performed By: #### A LLBG ####[facility] LABCLIA [id number] [address] [place] Calcium.ionized adjusted to pH 7.4 (BldA) [Moles/Vol] 1.14 mmol/L Normal 1.08-1.[address] [facility] Comment on above: Order Comment: Speci men Type: ARTERIAL BLOOD SPECIMENOrdering Facility: [facility] Address: [address] [place] [address] Performed By: #### A LLBG ####[facility] LABCLIA [id number] [place] [address] [place] Carboxyhemoglobin (BldA) [Mass fraction] 1.5 % Normal 0.0-2.[address] [facility] Comment on above: Order Comment: Speci men Type: ARTERIAL BLOOD SPECIMENOrdering Facility: [facility] Address: [address] [place] [address] Result Comment: Carb oxyhemoglobin Reference Range for Smokers: 2.0-8.0% Performed By: #### A LLBG ####[facility] LABCLIA [id number] [address] [place] CO2 (Bld) [Partial pressure] 43 mm Hg Normal 36-[address] [facility] Comment on above: Order Comment: Speci men Type: ARTERIAL BLOOD SPECIMENOrdering Facility: [facility] Address: [address] [place] [address] Performed By: #### A LLBG ####[facility] LABCLIA [id number] [place] [address] [place] FIO2 40 % Normal [facility] Comment on above: Order Comment: Speci men Type: ARTERIAL BLOOD SPECIMENOrdering Facility: [facility] Address: [address] [place] [address] Performed By: #### A LLBG ####[facility] LABCLIA [id number] [place] [id number] [place] Glucose [Mass/Vol] 210 mg/dL High 60-105 [facility] Comment on above: Order Comment: Speci men Type: ARTERIAL BLOOD SPECIMENOrdering Facility: [facility] Address: [address] [place] [address] Performed By: #### A LLBG ####[facility] LABCLIA [id number] [place] [id number] [place] HCO3 (Bld) [Moles/Vol] 25 mmol/L Normal 22-26 [facility] Comment on above: Order Comment: Speci men Type: ARTERIAL BLOOD SPECIMENOrdering Facility: [facility] Address: [address] [place] [address] Performed By: #### A LLBG ####[facility] LABCLIA [id number] [place] [address] [place] Hematocrit (Bld) [Volume fraction] 34.5 % Low 36.0-46.[address] [facility] Comment on above: Order Comment: Speci men Type: ARTERIAL BLOOD SPECIMENOrdering Facility: [facility] Address: [address] [place] [address] Performed By: #### A LLBG ####[facility] LABIA [id number] [place] [address] [place] Hemoglobin (Bld) [Mass/Vol] 11.2 g/dL Low 11.5-15.[address] [facility] Comment on above: Order Comment: Speci men Type: ARTERIAL BLOOD SPECIMENOrdering Facility: [facility] Address: [address] [place] [address] Performed By: #### A LLBG ####[facility] LABIA [id number] [place] [address] [place] Lactate [Moles/Vol] 1.4 mmol/L Normal 0.5-2.2 [facility] Comment on above: Order Comment: Speci men Type: ARTERIAL BLOOD SPECIMENOrdering Facility: [facility] Address: [address] [place] [address] Performed By: #### A LLBG ####[facility] LABIA [id number] [place] [address] [place] Methemoglobin (Bld) [Mass fraction] 1.7 % High 0.0-1.[address] [facility] Comment on above: Order Comment: Speci men Type: ARTERIAL BLOOD SPECIMENOrdering Facility: [facility] Address: [address] [place] [id number] Performed By: #### A LLBG ####[facility] LABCLIA [id number] [address], [facility]95 [place] O2 THERAPY VENT=Ventilator Normal [facility] Comment on above: Order Comment: Speci men Type: ARTERIAL BLOOD SPECIMENOrdering Facility: [facility] Address: [address] [place] [address] Performed By: #### A LLBG ####[facility] LABCLIA [id number] [address], [facility] [place] Order Comment: Speci men Type: VENOUS BLOOD SPECIMENOrdering Facility: [facility] Address: [address] [place], [place] [address] Performed By: #### 2 4344-4 ####[facility] LABCLIA [id number] [address], [facility]95 [place] Oxygen (Bld) [Partial pressure] 130 mm Hg High 85-[address] [facility] Comment on above: Order Comment: Speci men Type: ARTERIAL BLOOD SPECIMENOrdering Facility: [facility] Address: [address] [place], [place] [address] Performed By: #### A LLBG ####[facility] LABCLIA [id number] [place] [id number] [place] Oxyhemoglobin (BldA) [Mass fraction] 95 % Normal 95-[address] [facility] Comment on above: Order Comment: Speci men Type: ARTERIAL BLOOD SPECIMENOrdering Facility: [facility] Address: [address] [place], [place] [address] Performed By: #### A LLBG ####[facility] LABCLIA [id number] [address] [place] [address] [place] PEEP/CPAP 8 cmH2O Normal [facility] Comment on above: Order Comment: Speci men Type: ARTERIAL BLOOD SPECIMENOrdering Facility: [facility] Address: [address] [place] [address] Performed By: #### A LLBG ####[facility] LABCLIA [id number] [place] [address] [place] Order Comment: Speci men Type: VENOUS BLOOD SPECIMENOrdering Facility: [facility] Address: [address] [place] [address] Performed By: #### 2 4344-4 ####[facility] LABCLIA [id number] [place] [address] [place] pH (Bld) 7.38 [pH] Normal 7.35-7.[address] [facility] Comment on above: Order Comment: Speci men Type: ARTERIAL BLOOD SPECIMENOrdering Facility: [facility] Address: [address] [place] [address] Performed By: #### A LLBG ####[facility] LABCLIA [id number] [place] [address] [place] PO2 / FIO2 RATIO 325 mmHg Normal >300 [facility] Comment on above: Order Comment: Speci men Type: ARTERIAL BLOOD SPECIMENOrdering Facility: [facility] Address: [address] [place] [address] Performed By: #### A LLBG ####[facility] LABCLIA [id number] [place] [address] [place] Potassium [Moles/Vol] 4.8 mmol/L Normal 3.5-5.0 [facility] Comment on above: Order Comment: Speci men Type: ARTERIAL BLOOD SPECIMENOrdering Facility: [facility] Address: [address] [place] [address] Performed By: #### A LLBG ####[facility] LABCLIA [id number] [place] [id number] [place] Sodium [Moles/Vol] 135 mmol/L Low 136-144 [facility] Comment on above: Order Comment: Speci men Type: ARTERIAL BLOOD SPECIMENOrdering Facility: [facility] Address: [address] [place] [address] Performed By: #### A LLBG ####[facility] LABCLIA [id number] [address] [place] [address] [place] Order Comment: Speci men Type: VENOUS BLOOD SPECIMENOrdering Facility: [facility] Address: [address] [place] [address] Performed By: #### 2 4344-4 ####[facility] LABCLIA [id number] [address] [place] [address] [place] Base deficit (BldA) [Moles/Vol] -1 mmol/L Normal -2-[address] [facility] Comment on above: Order Comment: Speci men Type: ARTERIAL BLOOD SPECIMENOrdering Facility: [facility] Address: [address] [place] [address] Performed By: #### A LLBG ####[facility] LABCLIA [id number] [address] [place] [address] [place] Body temperature 98.6 [degF] Normal [facility] Comment on above: Order Comment: Speci men Type: ARTERIAL BLOOD SPECIMENOrdering Facility: [facility] Address: [address] [place] [address] Performed By: #### A LLBG ####[facility] LABCLIA [id number] [address] [place] [address] [place] Order Comment: Speci men Type: VENOUS BLOOD SPECIMENOrdering Facility: [facility] Address: [address] [place] [address] Performed By: #### 2 4344-4 ####[facility] LABCLIA [id number] [address] [place] [address] [place] Calcium.ionized (Bld) [Mass/Vol] 1.15 mmol/L Normal 1.08-1.[address] [facility] Comment on above: Order Comment: Speci men Type: ARTERIAL BLOOD SPECIMENOrdering Facility: [facility] Address: [address] [place] [address] Performed By: #### A LLBG ####[facility] LABCLIA [id number] [place] [address] [place] Calcium.ionized adjusted to pH 7.4 (BldA) [Moles/Vol] 1.12 mmol/L Normal 1.08-1.[address] [facility] Comment on above: Order Comment: Speci men Type: ARTERIAL BLOOD SPECIMENOrdering Facility: [facility] Address: [address] [place] [address] Performed By: #### A LLBG ####[facility] LABCLIA [id number] [place] [address] [place] Order Comment: Speci men Type: VENOUS BLOOD SPECIMENOrdering Facility: [facility] Address: [address] [place] [address] Performed By: #### 2 4344-4 ####[facility] LABCLIA [id number] [place] [address] [place] Carboxyhemoglobin (BldA) [Mass fraction] 1.3 % Normal 0.0-2.[address] [facility] Comment on above: Order Comment: Speci men Type: ARTERIAL BLOOD SPECIMENOrdering Facility: [facility] Address: [address] [place] [address] Result Comment: Carb oxyhemoglobin Reference Range for Smokers: 2.0-8.0% Performed By: #### A LLBG ####[facility] LABCLIA [id number] [place] [address] [place] CO2 (Bld) [Partial pressure] 43 mm Hg Normal 36-[address] [facility] Comment on above: Order Comment: Speci men Type: ARTERIAL BLOOD SPECIMENOrdering Facility: [facility] Address: [address] [place] [address] Performed By: #### A LLBG ####[facility] LABCLIA [id number] [place] [id number] [place] Glucose [Mass/Vol] 179 mg/dL High 60-105 [facility] Comment on above: Order Comment: Speci men Type: ARTERIAL BLOOD SPECIMENOrdering Facility: [facility] Address: [address] [place] [address] Performed By: #### A LLBG ####[facility] LABCLIA [id number] [place] [address] [place] HCO3 (Bld) [Moles/Vol] 24 mmol/L Normal 22-26 [facility] Comment on above: Order Comment: Speci men Type: ARTERIAL BLOOD SPECIMENOrdering Facility: [facility] Address: [address] [place] [address] Performed By: #### A LLBG ####[facility] LABCLIA [id number] [place] [address] [place] Hematocrit (Bld) [Volume fraction] 36.2 % Normal 36.0-46.[address] [facility] Comment on above: Order Comment: Speci men Type: ARTERIAL BLOOD SPECIMENOrdering Facility: [facility] Address: [address] [place] [address] Performed By: #### A LLBG ####[facility] LABCLIA [id number] [place] [address] [place] Hemoglobin (Bld) [Mass/Vol] 11.8 g/dL Normal 11.5-15.[address] [facility] Comment on above: Order Comment: Speci men Type: ARTERIAL BLOOD SPECIMENOrdering Facility: [facility] Address: [address] [place] [address] Performed By: #### A LLBG ####[facility] LABCLIA [id number] [place] [id number] [place] Lactate [Moles/Vol] 1.2 mmol/L Normal 0.5-2.2 [facility] Comment on above: Order Comment: Speci men Type: ARTERIAL BLOOD SPECIMENOrdering Facility: [facility] Address: [address] [place] [address] Performed By: #### A LLBG ####[facility] LABCLIA [id number] [address] [place] [address] [place] Order Comment: Speci men Type: VENOUS BLOOD SPECIMENOrdering Facility: [facility] Address: [address] [place], [place] [address] Performed By: #### 2 4344-4 ####[facility] LABCLIA [id number] [address] [place] [address] [place] Methemoglobin (Bld) [Mass fraction] 1.6 % High 0.0-1.[address] [facility] Comment on above: Order Comment: Speci men Type: ARTERIAL BLOOD SPECIMENOrdering Facility: [facility] Address: [address] [place] [address] Performed By: #### A LLBG ####[facility] LABCLIA [id number] [address] [place] [address] [place] O2 THERAPY Positive Normal [facility] Comment on above: Order Comment: Speci men Type: ARTERIAL BLOOD SPECIMENOrdering Facility: [facility] Address: [address] [place], [place] [address] Performed By: #### A LLBG ####[facility] LABCLIA [id number] [address] [place] [address] [place] Order Comment: Speci men Type: VENOUS BLOOD SPECIMENOrdering Facility: [facility] Address: [address] [place] [address] Performed By: #### 2 4344-4 ####[facility] LABCLIA [id number] [address] [place] [address] [place] Oxygen (Bld) [Partial pressure] 158 mm Hg High 85-[address] [facility] Comment on above: Order Comment: Speci men Type: ARTERIAL BLOOD SPECIMENOrdering Facility: [facility] Address: [address] [place] [address] Performed By: #### A LLBG ####[facility] LABCLIA [id number] [place] [id number] [place] Oxyhemoglobin (BldA) [Mass fraction] 96 % Normal 95-[address] [facility] Comment on above: Order Comment: Speci men Type: ARTERIAL BLOOD SPECIMENOrdering Facility: [facility] Address: [address] [place] [address] Performed By: #### A LLBG ####[facility] LABCLIA [id number] [place] [address] [place] pH (Bld) 7.36 [pH] Normal 7.35-7.[address] [facility] Comment on above: Order Comment: Speci men Type: ARTERIAL BLOOD SPECIMENOrdering Facility: [facility] Address: [address] [place] [address] Performed By: #### A LLBG ####[facility] LABCLIA [id number] [place] [id number] [place] Potassium [Moles/Vol] 4.7 mmol/L Normal 3.5-5.0 [facility] Comment on above: Order Comment: Speci men Type: ARTERIAL BLOOD SPECIMENOrdering Facility: [facility] Address: [address] [place] [address] Performed By: #### A LLBG ####[facility] LABCLIA [id number] [place] [id number] [place] Order Comment: Speci men Type: VENOUS BLOOD SPECIMENOrdering Facility: [facility] Address: [address] [place] [address] Performed By: #### 2 4344-4 ####[facility] LABCLIA [id number] [place] [id number] [place] Sodium [Moles/Vol] 135 mmol/L Low 136-144 [facility] Comment on above: Order Comment: Speci men Type: ARTERIAL BLOOD SPECIMENOrdering Facility: [facility] Address: [address] [place] [address] Performed By: #### A LLBG ####[facility] LABCLIA [id number] [place] [address] [place] Order Comment: Speci men Type: VENOUS BLOOD SPECIMENOrdering Facility: [facility] Address: [address] [place] [address] Performed By: #### 2 4344-4 ####[facility] LABCLIA [id number] [place] [address] [place] Base deficit (BldA) [Moles/Vol] mmol/L Normal -2-[address] [facility] Comment on above: Order Comment: Speci men Type: ARTERIAL BLOOD SPECIMENOrdering Facility: [facility] Address: [address] [place] [address] Performed By: #### A LLBG ####[facility] LABCLIA [id number] [place] [address] [place] Body temperature 98.6 [degF] Normal [facility] Comment on above: Order Comment: Speci men Type: ARTERIAL BLOOD SPECIMENOrdering Facility: [facility] Address: [address] [place] [address] Performed By: #### A LLBG ####[facility] LABCLIA [id number] [place] [id number] [place] Calcium.ionized (Bld) [Mass/Vol] 1.15 mmol/L Normal 1.08-1.[address] [facility] Comment on above: Order Comment: Speci men Type: ARTERIAL BLOOD SPECIMENOrdering Facility: [facility] Address: [address] [place] [address] Performed By: #### A LLBG ####[facility] LABCLIA [id number] [place] [id number] [place] Calcium.ionized adjusted to pH 7.4 (BldA) [Moles/Vol] 1.13 mmol/L Normal 1.08-1.[address] [facility] Comment on above: Order Comment: Speci men Type: ARTERIAL BLOOD SPECIMENOrdering Facility: [facility] Address: [address] [place] [address] Performed By: #### A LLBG ####[facility] LABCLIA [id number] [place] [address] [place] Carboxyhemoglobin (BldA) [Mass fraction] 1.3 % Normal 0.0-2.[address] [facility] Comment on above: Order Comment: Speci men Type: ARTERIAL BLOOD SPECIMENOrdering Facility: [facility] Address: [address] [place] [address] Result Comment: Carb oxyhemoglobin Reference Range for Smokers: 2.0-8.0% Performed By: #### A LLBG ####[facility] LABIA [id number] [place] [address] [place] CO2 (Bld) [Partial pressure] 44 mm Hg Normal 36-[address] [facility] Comment on above: Order Comment: Speci men Type: ARTERIAL BLOOD SPECIMENOrdering Facility: [facility] Address: [address] [place] [address] Performed By: #### A LLBG ####[facility] LABCLIA [id number] [place] [address] [place] Glucose [Mass/Vol] 161 mg/dL High 60-105 [facility] Comment on above: Order Comment: Speci men Type: ARTERIAL BLOOD SPECIMENOrdering Facility: [facility] Address: [address] [place] [address] Performed By: #### A LLBG ####[facility] LABIA [id number] [place] [address] [place] HCO3 (Bld) [Moles/Vol] 25 mmol/L Normal 22-26 [facility] Comment on above: Order Comment: Speci men Type: ARTERIAL BLOOD SPECIMENOrdering Facility: [facility] Address: [address] [place] [address] Performed By: #### A LLBG ####[facility] LABIA [id number] [place] [address] [place] Hematocrit (Bld) [Volume fraction] 33.8 % Low 36.0-46.[address] [facility] Comment on above: Order Comment: Speci men Type: ARTERIAL BLOOD SPECIMENOrdering Facility: [facility] Address: [address] [place] [address] Performed By: #### A LLBG ####[facility] LABIA [id number] [place] [address] [place] Hemoglobin (Bld) [Mass/Vol] 10.9 g/dL Low 11.5-15.[address] [facility] Comment on above: Order Comment: Speci men Type: ARTERIAL BLOOD SPECIMENOrdering Facility: [facility] Address: [address] [place] [address] Performed By: #### A LLBG ####[facility] LABIA [id number] [place] [address] [place] Lactate [Moles/Vol] 1.3 mmol/L Normal 0.5-2.2 [facility] Comment on above: Order Comment: Speci men Type: ARTERIAL BLOOD SPECIMENOrdering Facility: [facility] Address: [address] [place] [address] Performed By: #### A LLBG ####[facility] LABIA [id number] [place] [address] [place] Methemoglobin (Bld) [Mass fraction] 0.8 % Normal 0.0-1.[address] [facility] Comment on above: Order Comment: Speci men Type: ARTERIAL BLOOD SPECIMENOrdering Facility: [facility] Address: [address] [place] [address] Performed By: #### A LLBG ####[facility] LABCLIA [id number] [place] [id number] [place] O2 THERAPY VENT=Ventilator Normal [facility] Comment on above: Order Comment: Speci men Type: ARTERIAL BLOOD SPECIMENOrdering Facility: [facility] Address: [address] [place] [address] Performed By: #### A LLBG ####[facility] LABCLIA [id number] [place] [address] [place] Oxygen (Bld) [Partial pressure] 140 mm Hg High 85-[address] [facility] Comment on above: Order Comment: Speci men Type: ARTERIAL BLOOD SPECIMENOrdering Facility: [facility] Address: [address] [place] [address] Performed By: #### A LLBG ####[facility] LABIA [id number] [place] [address] [place] Oxyhemoglobin (BldA) [Mass fraction] 97 % Normal 95-[address] [facility] Comment on above: Order Comment: Speci men Type: ARTERIAL BLOOD SPECIMENOrdering Facility: [facility] Address: [address] [place] [address] Performed By: #### A LLBG ####[facility] LABIA [id number] [place] [id number] [place] pH (Bld) 7.37 [pH] Normal 7.35-7.[address] [facility] Comment on above: Order Comment: Speci men Type: ARTERIAL BLOOD SPECIMENOrdering Facility: [facility] Address: [address] [place], [place] [address] Performed By: #### A LLBG ####[facility] LABCLIA [id number] [place] [id number] [place] Potassium [Moles/Vol] 4.3 mmol/L Normal 3.5-5.0 [facility] Comment on above: Order Comment: Speci men Type: ARTERIAL BLOOD SPECIMENOrdering Facility: [facility] Address: [address] [place] [address] Performed By: #### A LLBG ####[facility] LABIA [id number] [place] [address] [place] Sodium [Moles/Vol] 134 mmol/L Low 136-144 [facility] Comment on above: Order Comment: Speci men Type: ARTERIAL BLOOD SPECIMENOrdering Facility: [facility] Address: [address] [place] [address] Performed By: #### A LLBG ####[facility] LABIA [id number] [place] [address] [place] Base excess Calc (Bld) [Moles/Vol] 0 mmol/L Normal 0-[address] [facility] Comment on above: Order Comment: Speci men Type: ARTERIAL BLOOD SPECIMENOrdering Facility: [facility] Address: [address] [place] [address] Performed By: #### A LLBG ####[facility] LABIA [id number] [place] [address] [place] Calcium.ionized (Bld) [Mass/Vol] 1.18 mmol/L Normal 1.08-1.[address] [facility] Comment on above: Order Comment: Speci men Type: ARTERIAL BLOOD SPECIMENOrdering Facility: [facility] Address: [address] [place] [address] Performed By: #### A LLBG ####[facility] LABIA [id number] [place] [address] [place] Calcium.ionized adjusted to pH 7.4 (BldA) [Moles/Vol] 1.15 mmol/L Normal 1.08-1.[address] [facility] Comment on above: Order Comment: Speci men Type: ARTERIAL BLOOD SPECIMENOrdering Facility: [facility] Address: [address] [place] [address] Performed By: #### A LLBG ####[facility] LABCLIA [id number] [place] [address] [place] Carboxyhemoglobin (BldA) [Mass fraction] 1.1 % Normal 0.0-2.[address] [facility] Comment on above: Order Comment: Speci men Type: ARTERIAL BLOOD SPECIMENOrdering Facility: [facility] Address: [address] [place] [address] Result Comment: Carb oxyhemoglobin Reference Range for Smokers: 2.0-8.0% Performed By: #### A LLBG ####[facility] LABCLIA [id number] [place] [address] [place] CO2 (Bld) [Partial pressure] 48 mm Hg High 36-[address] [facility] Comment on above: Order Comment: Speci men Type: ARTERIAL BLOOD SPECIMENOrdering Facility: [facility] Address: [address] [place] [address] Performed By: #### A LLBG ####[facility] LABCLIA [id number] [place] [address] [place] Glucose [Mass/Vol] 119 mg/dL High 60-105 [facility] Comment on above: Order Comment: Speci men Type: ARTERIAL BLOOD SPECIMENOrdering Facility: [facility] Address: [address] [place] [address] Performed By: #### A LLBG ####[facility] LABCLIA [id number] [place] [address] [place] HCO3 (Bld) [Moles/Vol] 26 mmol/L Normal 22-26 [facility] Comment on above: Order Comment: Speci men Type: ARTERIAL BLOOD SPECIMENOrdering Facility: [facility] Address: [address] [place] [address] Performed By: #### A LLBG ####[facility] LABCLIA [id number] [place] [address] [place] Hematocrit (Bld) [Volume fraction] 34.1 % Low 36.0-46.[address] [facility] Comment on above: Order Comment: Speci men Type: ARTERIAL BLOOD SPECIMENOrdering Facility: [facility] Address: [address] [place] [address] Performed By: #### A LLBG ####[facility] LABIA [id number] [place] [address] [place] Hemoglobin (Bld) [Mass/Vol] 11.1 g/dL Low 11.5-15.[address] [facility] Comment on above: Order Comment: Speci men Type: ARTERIAL BLOOD SPECIMENOrdering Facility: [facility] Address: [address] [place] [address] Performed By: #### A LLBG ####[facility] LABIA [id number] [place] [address] [place] Lactate [Moles/Vol] 1.9 mmol/L Normal 0.5-2.2 [facility] Comment on above: Order Comment: Speci men Type: ARTERIAL BLOOD SPECIMENOrdering Facility: [facility] Address: [address] [place] [address] Performed By: #### A LLBG ####[facility] LABIA [id number] [place] [address] [place] Methemoglobin (Bld) [Mass fraction] 1.3 % Normal 0.0-1.[address] [facility] Comment on above: Order Comment: Speci men Type: ARTERIAL BLOOD SPECIMENOrdering Facility: [facility] Address: [address] [place] [address] Performed By: #### A LLBG ####[facility] LABIA [id number] [place] [id number] [place] Oxygen (Bld) [Partial pressure] 153 mm Hg High 85-[address] [facility] Comment on above: Order Comment: Speci men Type: ARTERIAL BLOOD SPECIMENOrdering Facility: [facility] Address: [address] [place] [address] Performed By: #### A LLBG ####[facility] LABCLIA [id number] [place] [address] [place] Oxyhemoglobin (BldA) [Mass fraction] 97 % Normal 95-[address] [facility] Comment on above: Order Comment: Speci men Type: ARTERIAL BLOOD SPECIMENOrdering Facility: [facility] Address: [address] [place] [address] Performed By: #### A LLBG ####[facility] LABCLIA [id number] [place] [address] [place] pH (Bld) 7.35 [pH] Normal 7.35-7.[address] [facility] Comment on above: Order Comment: Speci men Type: ARTERIAL BLOOD SPECIMENOrdering Facility: [facility] Address: [address] [place] [address] Performed By: #### A LLBG ####[facility] LABCLIA [id number] [place] [address] [place] Sodium [Moles/Vol] 136 mmol/L Normal 136-144 [facility] Comment on above: Order Comment: Speci men Type: ARTERIAL BLOOD SPECIMENOrdering Facility: [facility] Address: [address] [place] [address] Performed By: #### A LLBG ####[facility] LABCLIA [id number] [place] [address] [place] Base deficit (BldA) [Moles/Vol] mmol/L Normal -2-[address] [facility] Comment on above: Order Comment: Speci men Type: ARTERIAL BLOOD SPECIMENOrdering Facility: [facility] Address: [address] [place] [address] Performed By: #### A LLBG ####[facility] LABCLIA [id number] [place] [id number] [place] Body temperature 98.6 [degF] Normal [facility] Comment on above: Order Comment: Speci men Type: ARTERIAL BLOOD SPECIMENOrdering Facility: [facility] Address: [address] [place] [address] Performed By: #### A LLBG ####[facility] LABIA [id number] [place] [address] [place] Calcium.ionized (Bld) [Mass/Vol] 1.14 mmol/L Normal 1.08-1.[address] [facility] Comment on above: Order Comment: Speci men Type: ARTERIAL BLOOD SPECIMENOrdering Facility: [facility] Address: [address] [place] [address] Performed By: #### A LLBG ####[facility] LABIA [id number] [place] [address] [place] Calcium.ionized adjusted to pH 7.4 (BldA) [Moles/Vol] 1.11 mmol/L Normal 1.08-1.[address] [facility] Comment on above: Order Comment: Speci men Type: ARTERIAL BLOOD SPECIMENOrdering Facility: [facility] Address: [address] [place] [address] Performed By: #### A LLBG ####[facility] LABIA [id number] [place] [address] [place] Carboxyhemoglobin (BldA) [Mass fraction] 1.2 % Normal 0.0-2.[address] [facility] Comment on above: Order Comment: Speci men Type: ARTERIAL BLOOD SPECIMENOrdering Facility: [facility] Address: [address] [place] [address] Result Comment: Carb oxyhemoglobin Reference Range for Smokers: 2.0-8.0% Performed By: #### A LLBG ####[facility] LABIA [id number] [place] [address] [place] CO2 (Bld) [Partial pressure] 46 mm Hg Normal 36-[address] [facility] Comment on above: Order Comment: Speci men Type: ARTERIAL BLOOD SPECIMENOrdering Facility: [facility] Address: [address] [place] [address] Performed By: #### A LLBG ####[facility] LABCLIA [id number] [place] [address] [place] Glucose [Mass/Vol] 143 mg/dL High 60-105 [facility] Comment on above: Order Comment: Speci men Type: ARTERIAL BLOOD SPECIMENOrdering Facility: [facility] Address: [address] [place] [address] Performed By: #### A LLBG ####[facility] LABCLIA [id number] [place] [address] [place] HCO3 (Bld) [Moles/Vol] 25 mmol/L Normal 22-26 [facility] Comment on above: Order Comment: Speci men Type: ARTERIAL BLOOD SPECIMENOrdering Facility: [facility] Address: [address] [place] [address] Performed By: #### A LLBG ####[facility] LABCLIA [id number] [place] [address] [place] Hematocrit (Bld) [Volume fraction] 35.2 % Low 36.0-46.[address] [facility] Comment on above: Order Comment: Speci men Type: ARTERIAL BLOOD SPECIMENOrdering Facility: [facility] Address: [address] [place] [address] Performed By: #### A LLBG ####[facility] LABCLIA [id number] [place] [id number] [place] Hemoglobin (Bld) [Mass/Vol] 11.4 g/dL Low 11.5-15.[address] [facility] Comment on above: Order Comment: Speci men Type: ARTERIAL BLOOD SPECIMENOrdering Facility: [facility] Address: [address] [place] [address] Performed By: #### A LLBG ####[facility] LABCLIA [id number] [address] [place] [address] [place] Lactate [Moles/Vol] 2.8 mmol/L High 0.5-2.2 [facility] Comment on above: Order Comment: Speci men Type: ARTERIAL BLOOD SPECIMENOrdering Facility: [facility] Address: [address] [place] [address] Performed By: #### A LLBG ####[facility] LABCLIA [id number] [address] [place] [address] [place] Methemoglobin (Bld) [Mass fraction] 1.6 % High 0.0-1.[address] [facility] Comment on above: Order Comment: Speci men Type: ARTERIAL BLOOD SPECIMENOrdering Facility: [facility] Address: [address] [place] [address] Performed By: #### A LLBG ####[facility] LABCLIA [id number] [address], [facility] [place] O2 THERAPY VENT=Ventilator Normal [facility] Comment on above: Order Comment: Speci men Type: ARTERIAL BLOOD SPECIMENOrdering Facility: [facility] Address: [address] [place] [address] Performed By: #### A LLBG ####[facility] LABCLIA [id number] [address] [address] [place] Oxygen (Bld) [Partial pressure] 136 mm Hg High 85-[address] [facility] Comment on above: Order Comment: Speci men Type: ARTERIAL BLOOD SPECIMENOrdering Facility: [facility] Address: [address] [place], [place] [address] Performed By: #### A LLBG ####[facility] LABCLIA [id number] [address] [place] [address] [place] Oxyhemoglobin (BldA) [Mass fraction] 96 % Normal 95-[address] [facility] Comment on above: Order Comment: Speci men Type: ARTERIAL BLOOD SPECIMENOrdering Facility: [facility] Address: [address] [place] [address] Performed By: #### A LLBG ####[facility] LABCLIA [id number] [place] [address] [place] pH (Bld) 7.35 [pH] Normal 7.35-7.[address] [facility] Comment on above: Order Comment: Speci men Type: ARTERIAL BLOOD SPECIMENOrdering Facility: [facility] Address: [address] [place] [address] Performed By: #### A LLBG ####[facility] LABIA [id number] [place] [address] [place] Potassium [Moles/Vol] 3.2 mmol/L Low 3.5-5.0 [facility] Comment on above: Order Comment: Speci men Type: ARTERIAL BLOOD SPECIMENOrdering Facility: [facility] Address: [address] [place] [address] Performed By: #### A LLBG ####[facility] LABCLIA [id number] [place] [address] [place] Sodium [Moles/Vol] 133 mmol/L Low 136-144 [facility] Comment on above: Order Comment: Speci men Type: ARTERIAL BLOOD SPECIMENOrdering Facility: [facility] Address: [address] [place] [address] Performed By: #### A LLBG ####[facility] LABCLIA [id number] [place] [id number] [place] Base excess Calc (Bld) [Moles/Vol] 0 mmol/L Normal 0-[address] [facility] Comment on above: Order Comment: Speci men Type: ARTERIAL BLOOD SPECIMENOrdering Facility: [facility] Address: [address] [place] [address] Performed By: #### A LLBG ####[facility] LABIA [id number] [place] [id number] [place] Calcium.ionized (Bld) [Mass/Vol] 1.16 mmol/L Normal 1.08-1.[address] [facility] Comment on above: Order Comment: Speci men Type: ARTERIAL BLOOD SPECIMENOrdering Facility: [facility] Address: [address] [place] [address] Performed By: #### A LLBG ####[facility] LABCLIA [id number] [address] [place] Calcium.ionized adjusted to pH 7.4 (BldA) [Moles/Vol] 1.16 mmol/L Normal 1.08-1.[address] [facility] Comment on above: Order Comment: Speci men Type: ARTERIAL BLOOD SPECIMENOrdering Facility: [facility] Address: [address] [place] [address] Performed By: #### A LLBG ####[facility] LABCLIA [id number] [address] [place] Carboxyhemoglobin (BldA) [Mass fraction] 1.6 % Normal 0.0-2.[address] [facility] Comment on above: Order Comment: Speci men Type: ARTERIAL BLOOD SPECIMENOrdering Facility: [facility] Address: [address] [place] [address] Result Comment: Carb oxyhemoglobin Reference Range for Smokers: 2.0-8.0% Performed By: #### A LLBG ####[facility] LABCLIA [id number] [place] [address] [place] CO2 (Bld) [Partial pressure] 41 mm Hg Normal 36-[address] [facility] Comment on above: Order Comment: Speci men Type: ARTERIAL BLOOD SPECIMENOrdering Facility: [facility] Address: [address] [place] [address] Performed By: #### A LLBG ####[facility] LABCLIA [id number] [place] [address] [place] CO2 adjusted to patient's actual temperature (Bld) [Partial pressure] 41 mmHg Normal 36-[address] [facility] Comment on above: Order Comment: Speci men Type: ARTERIAL BLOOD SPECIMENOrdering Facility: [facility] Address: [address] [place] [address] Performed By: #### A LLBG ####[facility] LABCLIA [id number] [place] [id number] [place] Glucose [Mass/Vol] 171 mg/dL High 60-105 [facility] Comment on above: Order Comment: Speci men Type: ARTERIAL BLOOD SPECIMENOrdering Facility: [facility] Address: [address] [place] [address] Performed By: #### A LLBG ####[facility] LABCLIA [id number] [place] [id number] [place] HCO3 (Bld) [Moles/Vol] 24 mmol/L Normal 22-26 [facility] Comment on above: Order Comment: Speci men Type: ARTERIAL BLOOD SPECIMENOrdering Facility: [facility] Address: [address] [place] [address] Performed By: #### A LLBG ####[facility] LABCLIA [id number] [place] [address] [place] Hematocrit (Bld) [Volume fraction] 33.4 % Low 36.0-46.[address] [facility] Comment on above: Order Comment: Speci men Type: ARTERIAL BLOOD SPECIMENOrdering Facility: [facility] Address: [address] [place] [address] Performed By: #### A LLBG ####[facility] LABCLIA [id number] [place] [id number] [place] Hemoglobin (Bld) [Mass/Vol] 10.8 g/dL Low 11.5-15.[address] [facility] Comment on above: Order Comment: Speci men Type: ARTERIAL BLOOD SPECIMENOrdering Facility: [facility] Address: [address] [place] [address] Performed By: #### A LLBG ####[facility] LABCLIA [id number] [address] [address] [place] Lactate [Moles/Vol] 2.5 mmol/L High 0.5-2.2 [facility] Comment on above: Order Comment: Speci men Type: ARTERIAL BLOOD SPECIMENOrdering Facility: [facility] Address: [address] [place] [address] Performed By: #### A LLBG ####[facility] LABCLIA [id number] [place] [id number] [place] Methemoglobin (Bld) [Mass fraction] 2.1 % High 0.0-1.[address] [facility] Comment on above: Order Comment: Speci men Type: ARTERIAL BLOOD SPECIMENOrdering Facility: [facility] Address: [address] [place] [address] Performed By: #### A LLBG ####[facility] LABCLIA [id number] [place] [id number] [place] Oxygen (Bld) [Partial pressure] 211 mm Hg High 85-[address] [facility] Comment on above: Order Comment: Speci men Type: ARTERIAL BLOOD SPECIMENOrdering Facility: [facility] Address: [address] [place] [address] Performed By: #### A LLBG ####[facility] LABCLIA [id number] [place] [id number] [place] Oxygen adjusted to patient's actual temperature (Bld) [Partial pressure] 211 mmHg High 85-[address] [facility] Comment on above: Order Comment: Speci men Type: ARTERIAL BLOOD SPECIMENOrdering Facility: [facility] Address: [address] [place] [address] Performed By: #### A LLBG ####[facility] LABCLIA [id number] [address] [address] [place] Oxyhemoglobin (BldA) [Mass fraction] 96 % Normal 95-[address] [facility] Comment on above: Order Comment: Speci men Type: ARTERIAL BLOOD SPECIMENOrdering Facility: [facility] Address: [address] [place] [address] Performed By: #### A LLBG ####[facility] LABCLIA [id number] [address] [address] [place] pH (Bld) 7.40 [pH] Normal 7.35-7.[address] [facility] Comment on above: Order Comment: Speci men Type: ARTERIAL BLOOD SPECIMENOrdering Facility: [facility] Address: [address] [place] [address] Performed By: #### A LLBG ####[facility] LABCLIA [id number] [place] [address] [place] pH adjusted to patient's actual temperature (Bld) 7.40 Normal 7.35-7.[address] [facility] Comment on above: Order Comment: Speci men Type: ARTERIAL BLOOD SPECIMENOrdering Facility: [facility] Address: [address] [place] [address] Performed By: #### A LLBG ####[facility] LABIA [id number] [place] [address] [place] Potassium [Moles/Vol] 4.0 mmol/L Normal 3.5-5.0 [facility] Comment on above: Order Comment: Speci men Type: ARTERIAL BLOOD SPECIMENOrdering Facility: [facility] Address: [address] [place] [address] Performed By: #### A LLBG ####[facility] LABIA [id number] [place] [address] [place] Sodium [Moles/Vol] 133 mmol/L Low 136-144 [facility] Comment on above: Order Comment: Speci men Type: ARTERIAL BLOOD SPECIMENOrdering Facility: [facility] Address: [address] [place] [address] Performed By: #### A LLBG ####[facility] LABIA [id number] [place] [address] [place] Base excess Calc (Bld) [Moles/Vol] 1 mmol/L Normal 0-[address] [facility] Comment on above: Order Comment: Speci men Type: ARTERIAL BLOOD SPECIMENOrdering Facility: [facility] Address: [address] [place] [address] Performed By: #### A LLBG ####[facility] [id number] [place] [address] [place] Calcium.ionized (Bld) [Mass/Vol] 1.06 mmol/L Low 1.08-1.[address] [facility] Comment on above: Order Comment: Speci men Type: ARTERIAL BLOOD SPECIMENOrdering Facility: [facility] Address: [address] [place] [address] Performed By: #### A LLBG ####[facility] [id number] [place] [address] [place] Calcium.ionized adjusted to pH 7.4 (BldA) [Moles/Vol] 1.07 mmol/L Low 1.08-1.[address] [facility] Comment on above: Order Comment: Speci men Type: ARTERIAL BLOOD SPECIMENOrdering Facility: [facility] Address: [address] [place] [address] Performed By: #### A LLBG ####[facility] [id number] [place] [address] [place] Carboxyhemoglobin (BldA) [Mass fraction] 1.5 % Normal 0.0-2.[address] [facility] Comment on above: Order Comment: Speci men Type: ARTERIAL BLOOD SPECIMENOrdering Facility: [facility] Address: [address] [place] [address] Result Comment: Carb oxyhemoglobin Reference Range for Smokers: 2.0-8.0% Performed By: #### A LLBG ####[facility] LABCLIA [id number] [address] [address] [place] CO2 (Bld) [Partial pressure] 39 mm Hg Normal 36-[address] [facility] Comment on above: Order Comment: Speci men Type: ARTERIAL BLOOD SPECIMENOrdering Facility: [facility] Address: [address] [place] [address] Performed By: #### A LLBG ####[facility] LABCLIA [id number] [place] [address] [place] CO2 adjusted to patient's actual temperature (Bld) [Partial pressure] 39 mmHg Normal 36-[address] [facility] Comment on above: Order Comment: Speci men Type: ARTERIAL BLOOD SPECIMENOrdering Facility: [facility] Address: [address] [place] [address] Performed By: #### A LLBG ####[facility] LABCLIA [id number] [place] [address] [place] Glucose [Mass/Vol] 186 mg/dL High 60-105 [facility] Comment on above: Order Comment: Speci men Type: ARTERIAL BLOOD SPECIMENOrdering Facility: [facility] Address: [address] [place] [address] Performed By: #### A LLBG ####[facility] LABCLIA [id number] [place] [id number] [place] HCO3 (Bld) [Moles/Vol] 25 mmol/L Normal 22-26 [facility] Comment on above: Order Comment: Speci men Type: ARTERIAL BLOOD SPECIMENOrdering Facility: [facility] Address: [address] [place] [address] Performed By: #### A LLBG ####[facility] LABCLIA [id number] [place] [id number] [place] Hematocrit (Bld) [Volume fraction] 31.8 % Low 36.0-46.[address] [facility] Comment on above: Order Comment: Speci men Type: ARTERIAL BLOOD SPECIMENOrdering Facility: [facility] Address: [address] [place] [address] Performed By: #### A LLBG ####[facility] LABCLIA [id number] [place] [address] [place] Hemoglobin (Bld) [Mass/Vol] 10.3 g/dL Low 11.5-15.[address] [facility] Comment on above: Order Comment: Speci men Type: ARTERIAL BLOOD SPECIMENOrdering Facility: [facility] Address: [address] [place] [address] Performed By: #### A LLBG ####[facility] LABIA [id number] [place] [address] [place] Lactate [Moles/Vol] 2.5 mmol/L High 0.5-2.2 [facility] Comment on above: Order Comment: Speci men Type: ARTERIAL BLOOD SPECIMENOrdering Facility: [facility] Address: [address] [place] [address] Performed By: #### A LLBG ####[facility] LABCLIA [id number] [place] [address] [place] Methemoglobin (Bld) [Mass fraction] 1.3 % Normal 0.0-1.[address] [facility] Comment on above: Order Comment: Speci men Type: ARTERIAL BLOOD SPECIMENOrdering Facility: [facility] Address: [address] [place] [address] Performed By: #### A LLBG ####[facility] LABIA [id number] [place] [id number] [place] Oxygen (Bld) [Partial pressure] 153 mm Hg High 85-[address] [facility] Comment on above: Order Comment: Speci men Type: ARTERIAL BLOOD SPECIMENOrdering Facility: [facility] Address: [address] [place] [address] Performed By: #### A LLBG ####[facility] LABCLIA [id number] [place] [address] [place] Oxygen adjusted to patient's actual temperature (Bld) [Partial pressure] 153 mmHg High 85-[address] [facility] Comment on above: Order Comment: Speci men Type: ARTERIAL BLOOD SPECIMENOrdering Facility: [facility] Address: [address] [place] [address] Performed By: #### A LLBG ####[facility] LABCLIA [id number] [place] [address] [place] Oxyhemoglobin (BldA) [Mass fraction] 96 % Normal 95-[address] [facility] Comment on above: Order Comment: Speci men Type: ARTERIAL BLOOD SPECIMENOrdering Facility: [facility] Address: [address] [place] [address] Performed By: #### A LLBG ####[facility] LABIA [id number] [place] [address] [place] pH (Bld) 7.41 [pH] Normal 7.35-7.[address] [facility] Comment on above: Order Comment: Speci men Type: ARTERIAL BLOOD SPECIMENOrdering Facility: [facility] Address: [address] [place] [address] Performed By: #### A LLBG ####[facility] LABIA [id number] [place] [address] [place] pH adjusted to patient's actual temperature (Bld) 7.41 Normal 7.35-7.[address] [facility] Comment on above: Order Comment: Speci men Type: ARTERIAL BLOOD SPECIMENOrdering Facility: [facility] Address: [address] [place] [address] Performed By: #### A LLBG ####[facility] LABIA [id number] [place] [id number] [place] Potassium [Moles/Vol] 3.3 mmol/L Low 3.5-5.0 [facility] Comment on above: Order Comment: Speci men Type: ARTERIAL BLOOD SPECIMENOrdering Facility: [facility] Address: [address] [place] [address] Performed By: #### A LLBG ####[facility] LABIA [id number] [place] [address] [place] Sodium [Moles/Vol] 132 mmol/L Low 136-144 [facility] Comment on above: Order Comment: Speci men Type: ARTERIAL BLOOD SPECIMENOrdering Facility: [facility] Address: [address] [place] [address] Performed By: #### A LLBG ####[facility] [id number] [place] [address] [place] Base excess Calc (Bld) [Moles/Vol] 2 mmol/L Normal 0-[address] [facility] Comment on above: Order Comment: Speci men Type: ARTERIAL BLOOD SPECIMENOrdering Facility: [facility] Address: [address] [place] [address] Performed By: #### A LLBG ####[facility] [id number] [place] [address] [place] Calcium.ionized (Bld) [Mass/Vol] 1.03 mmol/L Low 1.08-1.[address] [facility] Comment on above: Order Comment: Speci men Type: ARTERIAL BLOOD SPECIMENOrdering Facility: [facility] Address: [address] [place] [address] Performed By: #### A LLBG ####[facility]UN[facility] [id number] [place] [address] [place] Calcium.ionized adjusted to pH 7.4 (BldA) [Moles/Vol] 1.04 mmol/L Low 1.08-1.[address] [facility] Comment on above: Order Comment: Speci men Type: ARTERIAL BLOOD SPECIMENOrdering Facility: [facility] Address: [address] [place] [address] Performed By: #### A LLBG ####[facility] LABCLIA [id number] [place] [address] [place] Carboxyhemoglobin (BldA) [Mass fraction] 1.6 % Normal 0.0-2.[address] [facility] Comment on above: Order Comment: Speci men Type: ARTERIAL BLOOD SPECIMENOrdering Facility: [facility] Address: [address] [place] [address] Result Comment: Carb oxyhemoglobin Reference Range for Smokers: 2.0-8.0% Performed By: #### A LLBG ####[facility] LABCLIA [id number] [address] [place] CO2 (Bld) [Partial pressure] 40 mm Hg Normal 36-[address] [facility] Comment on above: Order Comment: Speci men Type: ARTERIAL BLOOD SPECIMENOrdering Facility: [facility] Address: [address] [place] [address] Performed By: #### A LLBG ####[facility] LABCLIA [id number] [address] [place] CO2 adjusted to patient's actual temperature (Bld) [Partial pressure] 40 mmHg Normal 36-[address] [facility] Comment on above: Order Comment: Speci men Type: ARTERIAL BLOOD SPECIMENOrdering Facility: [facility] Address: [address] [place] [address] Performed By: #### A LLBG ####[facility] LABCLIA [id number] [place] [id number] [place] Glucose [Mass/Vol] 229 mg/dL High 60-105 [facility] Comment on above: Order Comment: Speci men Type: ARTERIAL BLOOD SPECIMENOrdering Facility: [facility] Address: [address] [place] [address] Performed By: #### A LLBG ####[facility] LABCLIA [id number] [place] [id number] [place] HCO3 (Bld) [Moles/Vol] 26 mmol/L Normal 22-26 [facility] Comment on above: Order Comment: Speci men Type: ARTERIAL BLOOD SPECIMENOrdering Facility: [facility] Address: [address] [place] [address] Performed By: #### A LLBG ####[facility] LABCLIA [id number] [place] [address] [place] Hematocrit (Bld) [Volume fraction] 29.0 % Low 36.0-46.[address] [facility] Comment on above: Order Comment: Speci men Type: ARTERIAL BLOOD SPECIMENOrdering Facility: [facility] Address: [address] [place] [address] Performed By: #### A LLBG ####[facility] LABIA [id number] [place] [address] [place] Hemoglobin (Bld) [Mass/Vol] 9.4 g/dL Low 11.5-15.[address] [facility] Comment on above: Order Comment: Speci men Type: ARTERIAL BLOOD SPECIMENOrdering Facility: [facility] Address: [address] [place] [address] Performed By: #### A LLBG ####[facility] LABIA [id number] [place] [address] [place] Lactate [Moles/Vol] 1.8 mmol/L Normal 0.5-2.2 [facility] Comment on above: Order Comment: Speci men Type: ARTERIAL BLOOD SPECIMENOrdering Facility: [facility] Address: [address] [place] [address] Performed By: #### A LLBG ####[facility] LABIA [id number] [place] [address] [place] Methemoglobin (Bld) [Mass fraction] 1.2 % Normal 0.0-1.[address] [facility] Comment on above: Order Comment: Speci men Type: ARTERIAL BLOOD SPECIMENOrdering Facility: [facility] Address: [address] [place] [address] Performed By: #### A LLBG ####[facility] LABCLIA [id number] [address] [address] [place] Oxygen (Bld) [Partial pressure] 315 mm Hg High 85-[address] [facility] Comment on above: Order Comment: Speci men Type: ARTERIAL BLOOD SPECIMENOrdering Facility: [facility] Address: [address] [place] [address] Performed By: #### A LLBG ####[facility] LABCLIA [id number] [place] [id number] [place] Oxygen adjusted to patient's actual temperature (Bld) [Partial pressure] 315 mmHg High 85-[address] [facility] Comment on above: Order Comment: Speci men Type: ARTERIAL BLOOD SPECIMENOrdering Facility: [facility] Address: [address] [place] [address] Performed By: #### A LLBG ####[facility] LABCLIA [id number] [place] [id number] [place] Oxyhemoglobin (BldA) [Mass fraction] 97 % Normal 95-[address] [facility] Comment on above: Order Comment: Speci men Type: ARTERIAL BLOOD SPECIMENOrdering Facility: [facility] Address: [address] [place] [address] Performed By: #### A LLBG ####[facility] LABCLIA [id number] [address] [address] [place] pH (Bld) 7.43 [pH] Normal 7.35-7.[address] [facility] Comment on above: Order Comment: Speci men Type: ARTERIAL BLOOD SPECIMENOrdering Facility: [facility] Address: [address] [place], [place] [address] Performed By: #### A LLBG ####[facility] LABCLIA [id number] [address] [address] [place] pH adjusted to patient's actual temperature (Bld) 7.43 Normal 7.35-7.[address] [facility] Comment on above: Order Comment: Speci men Type: ARTERIAL BLOOD SPECIMENOrdering Facility: [facility] Address: [address] [place] [address] Performed By: #### A LLBG ####[facility] LABCLIA [id number] [place] [address] [place] Potassium [Moles/Vol] 3.7 mmol/L Normal 3.5-5.0 [facility] Comment on above: Order Comment: Speci men Type: ARTERIAL BLOOD SPECIMENOrdering Facility: [facility] Address: [address] [place] [address] Performed By: #### A LLBG ####[facility] LABCLIA [id number] [place] [address] [place] Sodium [Moles/Vol] 133 mmol/L Low 136-144 [facility] Comment on above: Order Comment: Speci men Type: ARTERIAL BLOOD SPECIMENOrdering Facility: [facility] Address: [address] [place] [address] Performed By: #### A LLBG ####[facility] LABCLIA [id number] [place] [address] [place] Base excess Calc (Bld) [Moles/Vol] 2 mmol/L Normal 0-[address] [facility] Comment on above: Order Comment: Speci men Type: ARTERIAL BLOOD SPECIMENOrdering Facility: [facility] Address: [address] [place] [address] Performed By: #### A LLBG ####[facility] LABCLIA [id number] [place] [address] [place] Calcium.ionized (Bld) [Mass/Vol] 1.00 mmol/L Low 1.08-1.[address] [facility] Comment on above: Order Comment: Speci men Type: ARTERIAL BLOOD SPECIMENOrdering Facility: [facility] Address: [address] [place] [address] Performed By: #### A LLBG ####[facility] LABCLIA [id number] [place] [address] [place] Calcium.ionized adjusted to pH 7.4 (BldA) [Moles/Vol] 1.03 mmol/L Low 1.08-1.[address] [facility] Comment on above: Order Comment: Speci men Type: ARTERIAL BLOOD SPECIMENOrdering Facility: [facility] Address: [address] [place] [address] Performed By: #### A LLBG ####[facility] LABIA [id number] [place] [address] [place] Carboxyhemoglobin (BldA) [Mass fraction] 1.8 % Normal 0.0-2.[address] [facility] Comment on above: Order Comment: Speci men Type: ARTERIAL BLOOD SPECIMENOrdering Facility: [facility] Address: [address] [place] [address] Result Comment: Carb oxyhemoglobin Reference Range for Smokers: 2.0-8.0% Performed By: #### A LLBG ####[facility] LABCLIA [id number] [place] [address] [place] CO2 (Bld) [Partial pressure] 35 mm Hg Low 36-[address] [facility] Comment on above: Order Comment: Speci men Type: ARTERIAL BLOOD SPECIMENOrdering Facility: [facility] Address: [address] [place] [address] Performed By: #### A LLBG ####[facility] LABCLIA [id number] [place] [address] [place] CO2 adjusted to patient's actual temperature (Bld) [Partial pressure] 35 mmHg Low 36-[address] [facility] Comment on above: Order Comment: Speci men Type: ARTERIAL BLOOD SPECIMENOrdering Facility: [facility] Address: [address] [place] [address] Performed By: #### A LLBG ####[facility] LABCLIA [id number] [place] [address] [place] Glucose [Mass/Vol] 192 mg/dL High 60-105 [facility] Comment on above: Order Comment: Speci men Type: ARTERIAL BLOOD SPECIMENOrdering Facility: [facility] Address: [address] [place] [address] Performed By: #### A LLBG ####[facility] LABCLIA [id number] [place] [address] [place] HCO3 (Bld) [Moles/Vol] 25 mmol/L Normal 22-26 [facility] Comment on above: Order Comment: Speci men Type: ARTERIAL BLOOD SPECIMENOrdering Facility: [facility] Address: [address] [place] [address] Performed By: #### A LLBG ####[facility] LABCLIA [id number] [place] [address] [place] Hematocrit (Bld) [Volume fraction] 28.7 % Low 36.0-46.[address] [facility] Comment on above: Order Comment: Speci men Type: ARTERIAL BLOOD SPECIMENOrdering Facility: [facility] Address: [address] [place] [address] Performed By: #### A LLBG ####[facility] LABCLIA [id number] [place] [address] [place] Hemoglobin (Bld) [Mass/Vol] 9.3 g/dL Low 11.5-15.[address] [facility] Comment on above: Order Comment: Speci men Type: ARTERIAL BLOOD SPECIMENOrdering Facility: [facility] Address: [address] [place] [address] Performed By: #### A LLBG ####[facility] LABCLIA [id number] [place] [address] [place] Lactate [Moles/Vol] 1.2 mmol/L Normal 0.5-2.2 [facility] Comment on above: Order Comment: Speci men Type: ARTERIAL BLOOD SPECIMENOrdering Facility: [facility] Address: [address] [place] [id number] Performed By: #### A LLBG ####[facility] LABCLIA [id number] [address] [address] [place] Methemoglobin (Bld) [Mass fraction] 1.1 % Normal 0.0-1.[address] [facility] Comment on above: Order Comment: Speci men Type: ARTERIAL BLOOD SPECIMENOrdering Facility: [facility] Address: [address] [place] [id number] Performed By: #### A LLBG ####[facility] LABCLIA [id number] [address] [address] [place] Oxygen (Bld) [Partial pressure] 330 mm Hg High 85-[address] [facility] Comment on above: Order Comment: Speci men Type: ARTERIAL BLOOD SPECIMENOrdering Facility: [facility] Address: [address] [place], [place] [address] Performed By: #### A LLBG ####[facility] LABCLIA [id number] [address] [address] [place] Oxygen adjusted to patient's actual temperature (Bld) [Partial pressure] 330 mmHg High 85-[address] [facility] Comment on above: Order Comment: Speci men Type: ARTERIAL BLOOD SPECIMENOrdering Facility: [facility] Address: [address] [place] [address] Performed By: #### A LLBG ####[facility] LABCLIA [id number] [address] [address] [place] Oxyhemoglobin (BldA) [Mass fraction] 97 % Normal 95-[address] [facility] Comment on above: Order Comment: Speci men Type: ARTERIAL BLOOD SPECIMENOrdering Facility: [facility] Address: [address] [place], [place] [id number] Performed By: #### A LLBG ####[facility] LABCLIA [id number] [place] [address] [place] pH (Bld) 7.47 [pH] High 7.35-7.[address] [facility] Comment on above: Order Comment: Speci men Type: ARTERIAL BLOOD SPECIMENOrdering Facility: [facility] Address: [address] [place] [address] Performed By: #### A LLBG ####[facility] LABIA [id number] [place] [address] [place] pH adjusted to patient's actual temperature (Bld) 7.47 High 7.35-7.[address] [facility] Comment on above: Order Comment: Speci men Type: ARTERIAL BLOOD SPECIMENOrdering Facility: [facility] Address: [address] [place] [address] Performed By: #### A LLBG ####[facility] LABIA [id number] [place] [address] [place] Potassium [Moles/Vol] 3.5 mmol/L Normal 3.5-5.0 [facility] Comment on above: Order Comment: Speci men Type: ARTERIAL BLOOD SPECIMENOrdering Facility: [facility] Address: [address] [place] [address] Performed By: #### A LLBG ####[facility] LABIA [id number] [place] [address] [place] Sodium [Moles/Vol] 135 mmol/L Low 136-144 [facility] Comment on above: Order Comment: Speci men Type: ARTERIAL BLOOD SPECIMENOrdering Facility: [facility] Address: [address] [place] [address] Performed By: #### A LLBG ####[facility] LABIA [id number] [place] [address] [place] Base excess Calc (Bld) [Moles/Vol] 2 mmol/L Normal 0-[address] [facility] Comment on above: Order Comment: Speci men Type: ARTERIAL BLOOD SPECIMENOrdering Facility: [facility] Address: [address] [place] [address] Performed By: #### A LLBG ####[facility] LABCLIA [id number] [place] [address] [place] Calcium.ionized (Bld) [Mass/Vol] 1.05 mmol/L Low 1.08-1.[address] [facility] Comment on above: Order Comment: Speci men Type: ARTERIAL BLOOD SPECIMENOrdering Facility: [facility] Address: [address] [place] [address] Performed By: #### A LLBG ####[facility] LABCLIA [id number] [place] [address] [place] Calcium.ionized adjusted to pH 7.4 (BldA) [Moles/Vol] 1.08 mmol/L Normal 1.08-1.[address] [facility] Comment on above: Order Comment: Speci men Type: ARTERIAL BLOOD SPECIMENOrdering Facility: [facility] Address: [address] [place] [address] Performed By: #### A LLBG ####[facility] LABIA [id number] [place] [address] [place] Order Comment: Speci men Type: VENOUS BLOOD SPECIMENOrdering Facility: [facility] Address: [address] [place] [address] Performed By: #### 2 [id number] ####[facility] LABCLIA [id number] [place] [id number] [place] Carboxyhemoglobin (BldA) [Mass fraction] 1.4 % Normal 0.0-2.[address] [facility] Comment on above: Order Comment: Speci men Type: ARTERIAL BLOOD SPECIMENOrdering Facility: [facility] Address: [address] [place] [address] Result Comment: Carb oxyhemoglobin Reference Range for Smokers: 2.0-8.0% Performed By: #### A LLBG ####[facility] LABCLIA [id number] [place] [address] [place] CO2 (Bld) [Partial pressure] 39 mm Hg Normal 36-[address] [facility] Comment on above: Order Comment: Speci men Type: ARTERIAL BLOOD SPECIMENOrdering Facility: [facility] Address: [address] [place] [address] Performed By: #### A LLBG ####[facility] LABCLIA [id number] [address] [place] CO2 adjusted to patient's actual temperature (Bld) [Partial pressure] 39 mmHg Normal 36-[address] [facility] Comment on above: Order Comment: Speci men Type: ARTERIAL BLOOD SPECIMENOrdering Facility: [facility] Address: [address] [place] [address] Performed By: #### A LLBG ####[facility] LABCLIA [id number] [place] [address] [place] Glucose [Mass/Vol] 218 mg/dL High 60-105 [facility] Comment on above: Order Comment: Speci men Type: ARTERIAL BLOOD SPECIMENOrdering Facility: [facility] Address: [address] [place] [address] Performed By: #### A LLBG ####[facility] LABCLIA [id number] [place] [id number] [place] HCO3 (Bld) [Moles/Vol] 26 mmol/L Normal 22-26 [facility] Comment on above: Order Comment: Speci men Type: ARTERIAL BLOOD SPECIMENOrdering Facility: [facility] Address: [address] [place] [address] Performed By: #### A LLBG ####[facility] LABCLIA [id number] [place] [address] [place] Hematocrit (Bld) [Volume fraction] 29.7 % Low 36.0-46.[address] [facility] Comment on above: Order Comment: Speci men Type: ARTERIAL BLOOD SPECIMENOrdering Facility: [facility] Address: [address] [place] [address] Performed By: #### A LLBG ####[facility] LABCLIA [id number] [place] [address] [place] Hemoglobin (Bld) [Mass/Vol] 9.6 g/dL Low 11.5-15.[address] [facility] Comment on above: Order Comment: Speci men Type: ARTERIAL BLOOD SPECIMENOrdering Facility: [facility] Address: [address] [place] [address] Performed By: #### A LLBG ####[facility] LABCLIA [id number] [place] [address] [place] Lactate [Moles/Vol] 1.1 mmol/L Normal 0.5-2.2 [facility] Comment on above: Order Comment: Speci men Type: ARTERIAL BLOOD SPECIMENOrdering Facility: [facility] Address: [address] [place] [address] Performed By: #### A LLBG ####[facility] LABIA [id number] [place] [address] [place] Methemoglobin (Bld) [Mass fraction] 1.4 % Normal 0.0-1.[address] [facility] Comment on above: Order Comment: Speci men Type: ARTERIAL BLOOD SPECIMENOrdering Facility: [facility] Address: [address] [place] [address] Performed By: #### A LLBG ####[facility] LABCLIA [id number] [place] [id number] [place] Oxygen (Bld) [Partial pressure] 294 mm Hg High 85-[address] [facility] Comment on above: Order Comment: Speci men Type: ARTERIAL BLOOD SPECIMENOrdering Facility: [facility] Address: [address] [place] [address] Performed By: #### A LLBG ####[facility] LABCLIA [id number] [address] [address] [place] Oxygen adjusted to patient's actual temperature (Bld) [Partial pressure] 294 mmHg High 85-[address] [facility] Comment on above: Order Comment: Speci men Type: ARTERIAL BLOOD SPECIMENOrdering Facility: [facility] Address: [address] [place] [address] Performed By: #### A LLBG ####[facility] LABCLIA [id number] [place] [id number] [place] Oxyhemoglobin (BldA) [Mass fraction] 97 % Normal 95-[address] [facility] Comment on above: Order Comment: Speci men Type: ARTERIAL BLOOD SPECIMENOrdering Facility: [facility] [facility]OSP[facility] Address: [address] [place] [address] Performed By: #### A LLBG ####[facility] LABCLIA [id number] [address] [address] [place] pH (Bld) 7.44 [pH] Normal 7.35-7.[address] [facility] Comment on above: Order Comment: Speci men Type: ARTERIAL BLOOD SPECIMENOrdering Facility: [facility] Address: [address] [place] [address] Performed By: #### A LLBG ####[facility] LABCLIA [id number] [address] [place] [address] [place] pH adjusted to patient's actual temperature (Bld) 7.44 Normal 7.35-7.[address] [facility] Comment on above: Order Comment: Speci men Type: ARTERIAL BLOOD SPECIMENOrdering Facility: [facility] Address: [address] [place], [place] [address] Performed By: #### A LLBG ####[facility] LABCLIA [id number] [address] [place] [address] [place] Potassium [Moles/Vol] 3.7 mmol/L Normal 3.5-5.0 [facility] Comment on above: Order Comment: Speci men Type: ARTERIAL BLOOD SPECIMENOrdering Facility: [facility] Address: [address] [place] [address] Performed By: #### A LLBG ####[facility] LABCLIA [id number] [place] [address] [place] Sodium [Moles/Vol] 133 mmol/L Low 136-144 [facility] Comment on above: Order Comment: Speci men Type: ARTERIAL BLOOD SPECIMENOrdering Facility: [facility] Address: [address] [place] [address] Performed By: #### A LLBG ####[facility] LABIA [id number] [place] [address] [place] Base excess Calc (Bld) [Moles/Vol] 3 mmol/L High 0-[address] [facility] Comment on above: Order Comment: Speci men Type: ARTERIAL BLOOD SPECIMENOrdering Facility: [facility] Address: [address] [place] [address] Performed By: #### A LLBG ####[facility] LABIA [id number] [place] [address] [place] Calcium.ionized (Bld) [Mass/Vol] 1.20 mmol/L Normal 1.08-1.[address] [facility] Comment on above: Order Comment: Speci men Type: ARTERIAL BLOOD SPECIMENOrdering Facility: [facility] Address: [address] [place] [address] Performed By: #### A LLBG ####[facility] LABIA [id number] [place] [address] [place] Calcium.ionized adjusted to pH 7.4 (BldA) [Moles/Vol] 1.22 mmol/L Normal 1.08-1.[address] [facility] Comment on above: Order Comment: Speci men Type: ARTERIAL BLOOD SPECIMENOrdering Facility: [facility] Address: [address] [place] [address] Performed By: #### A LLBG ####[facility] LABCLIA [id number] [place] [address] [place] Carboxyhemoglobin (BldA) [Mass fraction] 1.0 % Normal 0.0-2.[address] [facility] Comment on above: Order Comment: Speci men Type: ARTERIAL BLOOD SPECIMENOrdering Facility: [facility] Address: [address] [place] [address] Result Comment: Carb oxyhemoglobin Reference Range for Smokers: 2.0-8.0% Performed By: #### A LLBG ####[facility] LABCLIA [id number] [place] [address] [place] CO2 (Bld) [Partial pressure] 43 mm Hg Normal 36-[address] [facility] Comment on above: Order Comment: Speci men Type: ARTERIAL BLOOD SPECIMENOrdering Facility: [facility] Address: [address] [place] [address] Performed By: #### A LLBG ####[facility] LABCLIA [id number] [place] [address] [place] CO2 adjusted to patient's actual temperature (Bld) [Partial pressure] 43 mmHg Normal 36-[address] [facility] Comment on above: Order Comment: Speci men Type: ARTERIAL BLOOD SPECIMENOrdering Facility: [facility] Address: [address] [place] [address] Performed By: #### A LLBG ####[facility] LABCLIA [id number] [place] [address] [place] Glucose [Mass/Vol] 126 mg/dL High 60-105 [facility] Comment on above: Order Comment: Speci men Type: ARTERIAL BLOOD SPECIMENOrdering Facility: [facility] Address: [address] [place] [address] Performed By: #### A LLBG ####[facility] LABCLIA [id number] [address] [place] [address] [place] HCO3 (Bld) [Moles/Vol] 28 mmol/L High 22-26 [facility] Comment on above: Order Comment: Speci men Type: ARTERIAL BLOOD SPECIMENOrdering Facility: [facility] Address: [address] [place] [address] Performed By: #### A LLBG ####[facility] LABCLIA [id number] [address], [place] [address] [place] Hematocrit (Bld) [Volume fraction] 39.6 % Normal 36.0-46.[address] [facility] Comment on above: Order Comment: Speci men Type: ARTERIAL BLOOD SPECIMENOrdering Facility: [facility] Address: [address] [place] [address] Performed By: #### A LLBG ####[facility] LABIA [id number] [place] [address] [place] Hemoglobin (Bld) [Mass/Vol] 12.9 g/dL Normal 11.5-15.[address] [facility] Comment on above: Order Comment: Speci men Type: ARTERIAL BLOOD SPECIMENOrdering Facility: [facility] Address: [address] [place] [address] Performed By: #### A LLBG ####[facility] LABIA [id number] [place] [address] [place] Lactate [Moles/Vol] 0.5 mmol/L Normal 0.5-2.2 [facility] Comment on above: Order Comment: Speci men Type: ARTERIAL BLOOD SPECIMENOrdering Facility: [facility] Address: [address] [place] [address] Performed By: #### A LLBG ####[facility] LABCLIA [id number] [place] [id number] [place] Methemoglobin (Bld) [Mass fraction] 0.8 % Normal 0.0-1.[address] [facility] Comment on above: Order Comment: Speci men Type: ARTERIAL BLOOD SPECIMENOrdering Facility: [facility] Address: [address] [place] [address] Performed By: #### A LLBG ####[facility] LABCLIA [id number] [address] [address] [place] Oxygen (Bld) [Partial pressure] 144 mm Hg High 85-[address] [facility] Comment on above: Order Comment: Speci men Type: ARTERIAL BLOOD SPECIMENOrdering Facility: [facility] Address: [address] [place] [address] Performed By: #### A LLBG ####[facility] LABCLIA [id number] [address] [address] [place] Oxygen adjusted to patient's actual temperature (Bld) [Partial pressure] 144 mmHg High 85-[address] [facility] Comment on above: Order Comment: Speci men Type: ARTERIAL BLOOD SPECIMENOrdering Facility: [facility] Address: [address] [place], [place] [address] Performed By: #### A LLBG ####[facility] LABCLIA [id number] [address] [address] [place] Oxyhemoglobin (BldA) [Mass fraction] 97 % Normal 95-[address] [facility] Comment on above: Order Comment: Speci men Type: ARTERIAL BLOOD SPECIMENOrdering Facility: [facility] Address: [address] [place] [address] Performed By: #### A LLBG ####[facility] LABCLIA [id number] [address] [address] [place] pH (Bld) 7.42 [pH] Normal 7.35-7.[address] [facility] Comment on above: Order Comment: Speci men Type: ARTERIAL BLOOD SPECIMENOrdering Facility: [facility] Address: [address] [place] [address] Performed By: #### A LLBG ####[facility] LABCLIA [id number] [place] [id number] [place] pH adjusted to patient's actual temperature (Bld) 7.42 Normal 7.35-7.[address] [facility] Comment on above: Order Comment: Speci men Type: ARTERIAL BLOOD SPECIMENOrdering Facility: [facility] Address: [address] [place] [address] Performed By: #### A LLBG ####[facility] LABCLIA [id number] [place] [address] [place] Potassium [Moles/Vol] 3.7 mmol/L Normal 3.5-5.0 [facility] Comment on above: Order Comment: Speci men Type: ARTERIAL BLOOD SPECIMENOrdering Facility: [facility] Address: [address] [place] [address] Performed By: #### A LLBG ####[facility] LABIA [id number] [place] [address] [place] Sodium [Moles/Vol] 137 mmol/L Normal 136-144 [facility] Comment on above: Order Comment: Speci men Type: ARTERIAL BLOOD SPECIMENOrdering Facility: [facility] Address: [address] [place] [address] Performed By: #### A LLBG ####[facility] LABIA [id number] [place] [id number] [place] [id number] 09-04-[address]24 ECG[address] [facility] Fibrinogen PPP-mCncon 2024 Fibrinogen Coag (PPP) [Mass/Vol] 367 mg/dL Normal 200-[address] [facility] Comment on above: Order Comment: Speci men Type: BLOOD SPECIMENOrdering Facility: [facility] Address: [address] [place] [address] Performed By: #### 3 255-7 ####[facility] LABCLIA [id number] [address] [place] [address] [place] Gas + CO Pnl BldVon 09-05-19 25 Body temperature 98.6 [degF] Normal [facility] Comment on above: Order Comment: Speci men Type: VENOUS BLOOD SPECIMENOrdering Facility: [facility] Address: [address] [place], [place] [address] Performed By: #### 2 4344-4 ####[facility] LABCLIA [id number] [address] [place] [address] [place] Order Comment: Speci men Type: ARTERIAL BLOOD SPECIMENOrdering Facility: [facility] Address: [address] [place] [address] Performed By: #### A LLBG ####[facility] LABCLIA [id number] [address], [facility]95 [place] O2 THERAPY VENT=Ventilator Normal [facility] Comment on above: Order Comment: Speci men Type: VENOUS BLOOD SPECIMENOrdering Facility: [facility] Address: [address] [place], [place] [address] Performed By: #### 2 4344-4 ####[facility] LABCLIA [id number] [address], [facility]95 [place] Order Comment: Speci men Type: ARTERIAL BLOOD SPECIMENOrdering Facility: [facility] Address: [address] [place], [place] [address] Performed By: #### A LLBG ####[facility] LABCLIA [id number] [address] [address] [place] Potassium [Moles/Vol] 3.4 mmol/L Low 3.5-5.0 [facility] Comment on above: Order Comment: Speci men Type: VENOUS BLOOD SPECIMENOrdering Facility: [facility] Address: [address] [place], [place] [address] Performed By: #### 2 4344-4 ####[facility] LABCLIA [id number] [place] [address] [place] Order Comment: Speci men Type: ARTERIAL BLOOD SPECIMENOrdering Facility: [facility] Address: [address] [place] [address] Performed By: #### A LLBG ####[facility] LABCLIA [id number] [place] [id number] [place] Gas and Carbon monoxide pane l (BldV)on 09-04-2024 Base excess Calc (BldV) [Moles/Vol] 0 mmol/L Normal 0-[address] [facility] Comment on above: Order Comment: Speci men Type: VENOUS BLOOD SPECIMENOrdering Facility: [facility] Address: [address] [place] [address] Performed By: #### 2 4344-4 ####[facility] LABIA [id number] [place] [address] [place] Calcium.ionized (Bld) [Mass/Vol] 1.17 mmol/L Normal 1.08-1.[address] [facility] Comment on above: Order Comment: Speci men Type: VENOUS BLOOD SPECIMENOrdering Facility: [facility] Address: [address] [place] [address] Performed By: #### 2 4344-4 ####[facility] LABIA [id number] [place] [address] [place] Calcium.ionized adjusted to pH 7.4 (BldA) [Moles/Vol] 1.11 mmol/L Normal 1.08-1.[address] [facility] Comment on above: Order Comment: Speci men Type: VENOUS BLOOD SPECIMENOrdering Facility: [facility] Address: [address] [place] [address] Performed By: #### 2 4344-4 ####[facility] LABIA [id number] [place] [id number] [place] Carboxyhemoglobin (BldV) [Mass fraction] 1.4 % Normal 0.0-2.[address] [facility] Comment on above: Order Comment: Speci men Type: VENOUS BLOOD SPECIMENOrdering Facility: [facility] Address: [address] [place] [address] Result Comment: Carb oxyhemoglobin Reference Range for Smokers: 2.0-8.0% Performed By: #### 2 4344-4 ####[facility] LABCLIA [id number] [place] [id number] [place] CO2 (BldV) [Partial pressure] 55 mm[Hg] Normal 42-[address] [facility] Comment on above: Order Comment: Speci men Type: VENOUS BLOOD SPECIMENOrdering Facility: [facility] Address: [address] [place] [address] Performed By: #### 2 4344-4 ####[facility] LABCLIA [id number] [place] [address] [place] Glucose [Mass/Vol] 133 mg/dL High 60-105 [facility] Comment on above: Order Comment: Speci men Type: VENOUS BLOOD SPECIMENOrdering Facility: [facility] Address: [address] [place] [address] Performed By: #### 2 4344-4 ####[facility] LABCLIA [id number] [place] [id number] [place] Hematocrit (Bld) [Volume fraction] 31.8 % Low 36.0-46.[address] [facility] Comment on above: Order Comment: Speci men Type: VENOUS BLOOD SPECIMENOrdering Facility: [facility] Address: [address] [place] [address] Performed By: #### 2 4344-4 ####[facility] LABCLIA [id number] [place] [id number] [place] Hemoglobin (Bld) [Mass/Vol] 10.3 g/dL Low 11.5-15.[address] [facility] Comment on above: Order Comment: Speci men Type: VENOUS BLOOD SPECIMENOrdering Facility: [facility] Address: [address] [place] [address] Performed By: #### 2 4344-4 ####[facility] LABCLIA [id number] [address] [address] [place] Lactate [Moles/Vol] 1.4 mmol/L Normal 0.5-2.2 [facility] Comment on above: Order Comment: Speci men Type: VENOUS BLOOD SPECIMENOrdering Facility: [facility] Address: [address] [place] [address] Performed By: #### 2 4344-4 ####[facility] LABCLIA [id number] [place] [id number] [place] Methemoglobin (Bld) [Mass fraction] 1.6 % High 0.0-1.[address] [facility] Comment on above: Order Comment: Speci men Type: VENOUS BLOOD SPECIMENOrdering Facility: [facility] Address: [address] [place] [address] Performed By: #### 2 4344-4 ####[facility] LABCLIA [id number] [place] [id number] [place] Oxygen (BldV) [Partial pressure] 44 mm[Hg] Normal 35-[address] [facility] Comment on above: Order Comment: Speci men Type: VENOUS BLOOD SPECIMENOrdering Facility: [facility] Address: [address] [place] [address] Performed By: #### 2 4344-4 ####[facility] LABCLIA [id number] [address] [place] [address] [place] Oxygen saturation in Venous blood 70 % Normal 60-[address] [facility] Comment on above: Order Comment: Speci men Type: VENOUS BLOOD SPECIMENOrdering Facility: [facility] Address: [address] [place], [place] [address] Performed By: #### 2 4344-4 ####[facility] LABCLIA [id number] [address] [place] [address] [place] Oxyhemoglobin (BldV) [Mass fraction] 68 % Normal 60-[address] [facility] Comment on above: Order Comment: Speci men Type: VENOUS BLOOD SPECIMENOrdering Facility: [facility] Address: [address] [place] [address] Performed By: #### 2 4344-4 ####[facility] LABIA [id number] [place] [address] [place] pH (BldV) 7.31 [pH] Low 7.32-7.[address] [facility] Comment on above: Order Comment: Speci men Type: VENOUS BLOOD SPECIMENOrdering Facility: [facility] Address: [address] [place] [address] Performed By: #### 2 4344-4 ####[facility] LABCLIA [id number] [place] [address] [place] Potassium [Moles/Vol] 4.5 mmol/L Normal 3.5-5.0 [facility] Comment on above: Order Comment: Speci men Type: VENOUS BLOOD SPECIMENOrdering Facility: [facility] Address: [address] [place] [address] Performed By: #### 2 4344-4 ####[facility] LABIA [id number] [place] [address] [place] Sodium [Moles/Vol] 138 mmol/L Normal 136-144 [facility] Comment on above: Order Comment: Speci men Type: VENOUS BLOOD SPECIMENOrdering Facility: [facility] Address: [address] [place] [address] Performed By: #### 2 4344-4 ####[facility] LABCLIA [id number] [place] [id number] [place] Base excess Calc (BldV) [Moles/Vol] 0 mmol/L Normal 0-[address] [facility] Comment on above: Order Comment: Speci men Type: VENOUS BLOOD SPECIMENOrdering Facility: [facility] Address: [address] [place] [address] Performed By: #### 2 4344-4 ####[facility] LABIA [id number] [place] [address] [place] Calcium.ionized (Bld) [Mass/Vol] 1.14 mmol/L Normal 1.08-1.[address] [facility] Comment on above: Order Comment: Speci men Type: VENOUS BLOOD SPECIMENOrdering Facility: [facility] Address: [address] [place] [address] Performed By: #### 2 4344-4 ####[facility] [id number] [place] [address] [place] Calcium.ionized adjusted to pH 7.4 (BldA) [Moles/Vol] 1.10 mmol/L Normal 1.08-1.[address] [facility] Comment on above: Order Comment: Speci men Type: VENOUS BLOOD SPECIMENOrdering Facility: [facility] Address: [address] [place] [address] Performed By: #### 2 4344-4 ####[facility] [id number] [place] [address] [place] Carboxyhemoglobin (BldV) [Mass fraction] 1.6 % Normal 0.0-2.[address] [facility] Comment on above: Order Comment: Speci men Type: VENOUS BLOOD SPECIMENOrdering Facility: [facility] Address: [address] [place] [address] Result Comment: Carb oxyhemoglobin Reference Range for Smokers: 2.0-8.0% Performed By: #### 2 4344-4 ####[facility]UN[facility] [id number] [place] [address] [place] CO2 (BldV) [Partial pressure] 51 mm[Hg] Normal 42-[address] [facility] Comment on above: Order Comment: Speci men Type: VENOUS BLOOD SPECIMENOrdering Facility: [facility] Address: [address] [place] [address] Performed By: #### 2 4344-4 ####[facility] LABCLIA [id number] [place] [address] [place] Glucose [Mass/Vol] 165 mg/dL High 60-105 [facility] Comment on above: Order Comment: Speci men Type: VENOUS BLOOD SPECIMENOrdering Facility: [facility] Address: [address] [place] [address] Performed By: #### 2 4344-4 ####[facility] LABCLIA [id number] [place] [address] [place] Hematocrit (Bld) [Volume fraction] 31.4 % Low 36.0-46.[address] [facility] Comment on above: Order Comment: Speci men Type: VENOUS BLOOD SPECIMENOrdering Facility: [facility] Address: [address] [place] [address] Performed By: #### 2 4344-4 ####[facility] LABCLIA [id number] [place] [address] [place] Hemoglobin (Bld) [Mass/Vol] 10.2 g/dL Low 11.5-15.[address] [facility] Comment on above: Order Comment: Speci men Type: VENOUS BLOOD SPECIMENOrdering Facility: [facility] Address: [address] [place] [address] Performed By: #### 2 4344-4 ####[facility] LABCLIA [id number] [place] [id number] [place] Lactate [Moles/Vol] 1.5 mmol/L Normal 0.5-2.2 [facility] Comment on above: Order Comment: Speci men Type: VENOUS BLOOD SPECIMENOrdering Facility: [facility] Address: [address] [place], [place] [address] Performed By: #### 2 4344-4 ####[facility] LABCLIA [id number] [place] [id number] [address] [place] Methemoglobin (Bld) [Mass fraction] 1.8 % High 0.0-1.[address] [facility] Comment on above: Order Comment: Speci men Type: VENOUS BLOOD SPECIMENOrdering Facility: [facility] Address: [address] [place], [place] [address] Performed By: #### 2 4344-4 ####[facility] LABCLIA [id number] [address] [address] [place] Oxygen (BldV) [Partial pressure] 43 mm[Hg] Normal 35-[address] [facility] Comment on above: Order Comment: Speci men Type: VENOUS BLOOD SPECIMENOrdering Facility: [facility] Address: [address] [place] [address] Performed By: #### 2 4344-4 ####[facility] LABCLIA [id number] [place] [id number] [place] Oxygen saturation in Venous blood 69 % Normal 60-[address] [facility] Comment on above: Order Comment: Speci men Type: VENOUS BLOOD SPECIMENOrdering Facility: [facility] Address: [address] [place] [address] Performed By: #### 2 4344-4 ####[facility] LABCLIA [id number] [address] [address] [place] Oxyhemoglobin (BldV) [Mass fraction] 66 % Normal 60-[address] [facility] Comment on above: Order Comment: Speci men Type: VENOUS BLOOD SPECIMENOrdering Facility: [facility] Address: [address] [place] [address] Performed By: #### 2 4344-4 ####[facility] LABCLIA [id number] [place] [id number] [place] pH (BldV) 7.32 [pH] Normal 7.32-7.[address] [facility] Comment on above: Order Comment: Speci men Type: VENOUS BLOOD SPECIMENOrdering Facility: [facility] Address: [address] [place] [address] Performed By: #### 2 4344-4 ####[facility] LABCLIA [id number] [place] [address] [place] Potassium [Moles/Vol] 4.2 mmol/L Normal 3.5-5.0 [facility] Comment on above: Order Comment: Speci men Type: VENOUS BLOOD SPECIMENOrdering Facility: [facility] Address: [address] [place] [address] Performed By: #### 2 4344-4 ####[facility] LABCLIA [id number] [place] [address] [place] Sodium [Moles/Vol] 137 mmol/L Normal 136-144 [facility] Comment on above: Order Comment: Speci men Type: VENOUS BLOOD SPECIMENOrdering Facility: [facility] Address: [address] [place] [address] Performed By: #### 2 4344-4 ####[facility] LABCLIA [id number] [place] [address] [place] Base excess Calc (BldV) [Moles/Vol] 0 mmol/L Normal 0-[address] [facility] Comment on above: Order Comment: Speci men Type: VENOUS BLOOD SPECIMENOrdering Facility: [facility] Address: [address] [place] [address] Performed By: #### 2 4344-4 ####[facility] LABCLIA [id number] [place] [address] [place] Calcium.ionized (Bld) [Mass/Vol] 1.13 mmol/L Normal 1.08-1.[address] [facility] [facility] Comment on above: Order Comment: Speci men Type: VENOUS BLOOD SPECIMENOrdering Facility: [facility] Address: [address] [place] [address] Performed By: #### 2 4344-4 ####[facility] LABCLIA [id number] [place] [address] [place] Calcium.ionized adjusted to pH 7.4 (BldA) [Moles/Vol] 1.10 mmol/L Normal 1.08-1.[address] [facility] Comment on above: Order Comment: Speci men Type: VENOUS BLOOD SPECIMENOrdering Facility: [facility] Address: [address] [place] [address] Performed By: #### 2 4344-4 ####[facility] LABIA [id number] [place] [address] [place] Carboxyhemoglobin (BldV) [Mass fraction] 1.2 % Normal 0.0-2.[address] [facility] Comment on above: Order Comment: Speci men Type: VENOUS BLOOD SPECIMENOrdering Facility: [facility] Address: [address] [place] [address] Result Comment: Carb oxyhemoglobin Reference Range for Smokers: 2.0-8.0% Performed By: #### 2 4344-4 ####[facility] LABIA [id number] [place] [address] [place] CO2 (BldV) [Partial pressure] 49 mm[Hg] Normal 42-[address] [facility] Comment on above: Order Comment: Speci men Type: VENOUS BLOOD SPECIMENOrdering Facility: [facility] Address: [address] [place] [address] Performed By: #### 2 4344-4 ####[facility] LABIA [id number] [place] [address] [place] Glucose [Mass/Vol] 214 mg/dL High 60-105 [facility] Comment on above: Order Comment: Speci men Type: VENOUS BLOOD SPECIMENOrdering Facility: [facility] Address: [address] [place] [address] Performed By: #### 2 4344-4 ####[facility] LABIA [id number] [place] [address] [place] HCO3 (Bld) [Moles/Vol] 26 mmol/L Normal 24-28 [facility] Comment on above: Order Comment: Speci men Type: VENOUS BLOOD SPECIMENOrdering Facility: [facility] Address: [address] [place] [address] Performed By: #### 2 4344-4 ####[facility] LABCLIA [id number] [place] [address] [place] Hematocrit (Bld) [Volume fraction] 32.7 % Low 36.0-46.[address] [facility] Comment on above: Order Comment: Speci men Type: VENOUS BLOOD SPECIMENOrdering Facility: [facility] Address: [address] [place] [address] Performed By: #### 2 4344-4 ####[facility] LABIA [id number] [place] [address] [place] Hemoglobin (Bld) [Mass/Vol] 10.6 g/dL Low 11.5-15.[address] [facility] Comment on above: Order Comment: Speci men Type: VENOUS BLOOD SPECIMENOrdering Facility: [facility] Address: [address] [place] [address] Performed By: #### 2 4344-4 ####[facility] LABIA [id number] [place] [address] [place] Lactate [Moles/Vol] 1.3 mmol/L Normal 0.5-2.2 [facility] Comment on above: Order Comment: Speci men Type: VENOUS BLOOD SPECIMENOrdering Facility: [facility] Address: [address] [place] [address] Performed By: #### 2 4344-4 ####[facility] LABCLIA [id number] [place] [id number] [place] Methemoglobin (Bld) [Mass fraction] 1.2 % Normal 0.0-1.[address] [facility] Comment on above: Order Comment: Speci men Type: VENOUS BLOOD SPECIMENOrdering Facility: [facility] Address: [address] [place] [place] [id number] Performed By: #### 2 4344-4 ####[facility] LABCLIA [id number] [address] [address] [place] Oxygen (BldV) [Partial pressure] 42 mm[Hg] Normal 35-[address] [facility] Comment on above: Order Comment: Speci men Type: VENOUS BLOOD SPECIMENOrdering Facility: [facility] Address: [address] [place], [place] [address] Performed By: #### 2 4344-4 ####[facility] LABCLIA [id number] [place] [id number] [place] Oxygen saturation in Venous blood 68 % Normal 60-[address] [facility] Comment on above: Order Comment: Speci men Type: VENOUS BLOOD SPECIMENOrdering Facility: [facility] Address: [address] [place], [place] [address] Performed By: #### 2 4344-4 ####[facility] LABIA [id number] [place] [id number] [place] Oxyhemoglobin (BldV) [Mass fraction] 66 % Normal 60-[address] [facility] Comment on above: Order Comment: Speci men Type: VENOUS BLOOD SPECIMENOrdering Facility: [facility] Address: [address] [place], [place] [address] Performed By: #### 2 4344-4 ####[facility] LABCLIA [id number] [address] [address] [place] pH (BldV) 7.34 [pH] Normal 7.32-7.[address] [facility] Comment on above: Order Comment: Speci men Type: VENOUS BLOOD SPECIMENOrdering Facility: [facility] Address: [address] [place], [place] [address] Performed By: #### 2 4344-4 ####[facility] LABCLIA [id number] [place] [address] [place] Potassium [Moles/Vol] 4.5 mmol/L Normal 3.5-5.0 [facility] Comment on above: Order Comment: Speci men Type: VENOUS BLOOD SPECIMENOrdering Facility: [facility] Address: [address] [place] [address] Performed By: #### 2 4344-4 ####[facility] LABIA [id number] [place] [address] [place] Base excess Calc (BldV) [Moles/Vol] 1 mmol/L Normal 0-[address] [facility] Comment on above: Order Comment: Speci men Type: VENOUS BLOOD SPECIMENOrdering Facility: [facility] Address: [address] [place] [address] Performed By: #### 2 4344-4 ####[facility] LABIA [id number] [place] [address] [place] Calcium.ionized (Bld) [Mass/Vol] 1.17 mmol/L Normal 1.08-1.[address] [facility] Comment on above: Order Comment: Speci men Type: VENOUS BLOOD SPECIMENOrdering Facility: [facility] Address: [address] [place] [address] Performed By: #### 2 4344-4 ####[facility] LABIA [id number] [place] [address] [place] Carboxyhemoglobin (BldV) [Mass fraction] 1.1 % Normal 0.0-2.[address] [facility] Comment on above: Order Comment: Speci men Type: VENOUS BLOOD SPECIMENOrdering Facility: [facility] Address: [address] [place] [address] Result Comment: Carb oxyhemoglobin Reference Range for Smokers: 2.0-8.0% Performed By: #### 2 4344-4 ####[facility] LABIA [id number] [place] [address] [place] CO2 (BldV) [Partial pressure] 54 mm[Hg] Normal 42-[address] [facility] Comment on above: Order Comment: Speci men Type: VENOUS BLOOD SPECIMENOrdering Facility: [facility] Address: [address] [place] [address] Performed By: #### 2 4344-4 ####[facility] LABCLIA [id number] [place] [id number] [place] Glucose [Mass/Vol] 192 mg/dL High 60-105 [facility] Comment on above: Order Comment: Speci men Type: VENOUS BLOOD SPECIMENOrdering Facility: [facility] Address: [address] [place] [address] Performed By: #### 2 4344-4 ####[facility] LABIA [id number] [address], [facility] [place] HCO3 (Bld) [Moles/Vol] 27 mmol/L Normal 24-28 [facility] Comment on above: Order Comment: Speci men Type: VENOUS BLOOD SPECIMENOrdering Facility: [facility] Address: [address] [place], [place] [address] Performed By: #### 2 4344-4 ####[facility] LABIA [id number] [address] [address] [place] Hematocrit (Bld) [Volume fraction] 35.6 % Low 36.0-46.[address] [facility] Comment on above: Order Comment: Speci men Type: VENOUS BLOOD SPECIMENOrdering Facility: [facility] Address: [address] [place], [place] [address] Performed By: #### 2 4344-4 ####[facility] LABIA [id number] [place] [id number] [place] Hemoglobin (Bld) [Mass/Vol] 11.6 g/dL Normal 11.5-15.[address] [facility] Comment on above: Order Comment: Speci men Type: VENOUS BLOOD SPECIMENOrdering Facility: [facility] Address: [address] [place] [id number] Performed By: #### 2 4344-4 ####[facility] LABCLIA [id number] [address] [address] [place] Methemoglobin (Bld) [Mass fraction] 1.1 % Normal 0.0-1.[address] [facility] Comment on above: Order Comment: Speci men Type: VENOUS BLOOD SPECIMENOrdering Facility: [facility] Address: [address] [place] [address] Performed By: #### 2 4344-4 ####[facility] LABCLIA [id number] [place] [id number] [place] Oxygen (BldV) [Partial pressure] 36 mm[Hg] Normal 35-[address] [facility] Comment on above: Order Comment: Speci men Type: VENOUS BLOOD SPECIMENOrdering Facility: [facility] Address: [address] [place] [address] Performed By: #### 2 4344-4 ####[facility] LABCLIA [id number] [address] [address] [place] Oxygen saturation in Venous blood 55 % Low 60-[address] [facility] Comment on above: Order Comment: Speci men Type: VENOUS BLOOD SPECIMENOrdering Facility: [facility] Address: [address] [place], [place] [address] Performed By: #### 2 4344-4 ####[facility] LABCLIA [id number] [address] [address] [place] Oxyhemoglobin (BldV) [Mass fraction] 54 % Low 60-[address] [facility] Comment on above: Order Comment: Speci men Type: VENOUS BLOOD SPECIMENOrdering Facility: [facility] Address: [address] [place], [place] [address] Performed By: #### 2 4344-4 ####[facility] LABCLIA [id number] [address] [address] [place] pH (BldV) 7.32 [pH] Normal 7.32-7.[address] [facility] Comment on above: Order Comment: Speci men Type: VENOUS BLOOD SPECIMENOrdering Facility: [facility] Address: [address] [place] [address] Performed By: #### 2 4344-4 ####[facility] LABIA [id number] [place] [address] [place] Base excess Calc (BldV) [Moles/Vol] 1 mmol/L Normal 0-[address] [facility] Comment on above: Order Comment: Speci men Type: VENOUS BLOOD SPECIMENOrdering Facility: [facility] Address: [address] [place] [address] Performed By: #### 2 4344-4 ####[facility] LABIA [id number] [place] [address] [place] Calcium.ionized (Bld) [Mass/Vol] 1.19 mmol/L Normal 1.08-1.[address] [facility] Comment on above: Order Comment: Speci men Type: VENOUS BLOOD SPECIMENOrdering Facility: [facility] Address: [address] [place] [address] Performed By: #### 2 4344-4 ####[facility] LABIA [id number] [place] [address] [place] Calcium.ionized adjusted to pH 7.4 (BldA) [Moles/Vol] 1.13 mmol/L Normal 1.08-1.[address] [facility] Comment on above: Order Comment: Speci men Type: VENOUS BLOOD SPECIMENOrdering Facility: [facility] Address: [address] [place] [address] Performed By: #### 2 4344-4 ####[facility] LABIA [id number] [place] [id number] [place] Carboxyhemoglobin (BldV) [Mass fraction] 1.2 % Normal 0.0-2.[address] [facility] Comment on above: Order Comment: Speci men Type: VENOUS BLOOD SPECIMENOrdering Facility: [facility] Address: [address] [place] [address] Result Comment: Carb oxyhemoglobin Reference Range for Smokers: 2.0-8.0% Performed By: #### 2 4344-4 ####[facility] LABCLIA [id number] [address] [address] [place] CO2 (BldV) [Partial pressure] 59 mm[Hg] High 42-[address] [facility] Comment on above: Order Comment: Speci men Type: VENOUS BLOOD SPECIMENOrdering Facility: [facility] Address: [address] [place] [address] Performed By: #### 2 4344-4 ####[facility] LABCLIA [id number] [place] [address] [place] Glucose [Mass/Vol] 114 mg/dL High 60-105 [facility] Comment on above: Order Comment: Speci men Type: VENOUS BLOOD SPECIMENOrdering Facility: [facility] Address: [address] [place] [address] Performed By: #### 2 4344-4 ####[facility] LABCLIA [id number] [place] [id number] [place] HCO3 (Bld) [Moles/Vol] 28 mmol/L Normal 24-28 [facility] Comment on above: Order Comment: Speci men Type: VENOUS BLOOD SPECIMENOrdering Facility: [facility] Address: [address] [place] [address] Performed By: #### 2 4344-4 ####[facility] LABCLIA [id number] [place] [id number] [place] Hematocrit (Bld) [Volume fraction] 35.0 % Low 36.0-46.[address] [facility] Comment on above: Order Comment: Speci men Type: VENOUS BLOOD SPECIMENOrdering Facility: [facility] Address: [address] [place] [address] Performed By: #### 2 4344-4 ####[facility] LABCLIA [id number] [place] [address] [place] Hemoglobin (Bld) [Mass/Vol] 11.4 g/dL Low 11.5-15.[address] [facility] Comment on above: Order Comment: Speci men Type: VENOUS BLOOD SPECIMENOrdering Facility: [facility] Address: [address] [place] [address] Performed By: #### 2 4344-4 ####[facility] LABIA [id number] [place] [address] [place] Lactate [Moles/Vol] 1.8 mmol/L Normal 0.5-2.2 [facility] Comment on above: Order Comment: Speci men Type: VENOUS BLOOD SPECIMENOrdering Facility: [facility] Address: [address] [place] [address] Performed By: #### 2 4344-4 ####[facility] LABIA [id number] [place] [address] [place] Methemoglobin (Bld) [Mass fraction] 1.6 % High 0.0-1.[address] [facility] Comment on above: Order Comment: Speci men Type: VENOUS BLOOD SPECIMENOrdering Facility: [facility] Address: [address] [place] [address] Performed By: #### 2 4344-4 ####[facility] LABIA [id number] [place] [id number] [place] Oxygen (BldV) [Partial pressure] 40 mm[Hg] Normal 35-[address] [facility] Comment on above: Order Comment: Speci men Type: VENOUS BLOOD SPECIMENOrdering Facility: [facility] Address: [address] [place] [address] Performed By: #### 2 4344-4 ####[facility] LABIA [id number] [address] [address] [place] Oxygen saturation in Venous blood 61 % Normal 60-[address] [facility] Comment on above: Order Comment: Speci men Type: VENOUS BLOOD SPECIMENOrdering Facility: [facility] Address: [address] [place], [place] [address] Performed By: #### 2 4344-4 ####[facility] LABCLIA [id number] [address] [address] [place] Oxyhemoglobin (BldV) [Mass fraction] 59 % Low 60-[address] [facility] Comment on above: Order Comment: Speci men Type: VENOUS BLOOD SPECIMENOrdering Facility: [facility] Address: [address] [place] [address] Performed By: #### 2 4344-4 ####[facility] LABCLIA [id number] [place] [id number] [place] pH (BldV) 7.29 [pH] Low 7.32-7.[address] [facility] Comment on above: Order Comment: Speci men Type: VENOUS BLOOD SPECIMENOrdering Facility: [facility] Address: [address] [place], [place] [address] Performed By: #### 2 4344-4 ####[facility] LABCLIA [id number] [place] [id number] [place] Sodium [Moles/Vol] 137 mmol/L Normal 136-144 [facility] Comment on above: Order Comment: Speci men Type: VENOUS BLOOD SPECIMENOrdering Facility: [facility] Address: [address] [place] [address] Performed By: #### 2 4344-4 ####[facility] LABCLIA [id number] [place] [id number] [place] Base excess Calc (BldV) [Moles/Vol] 3 mmol/L High 0-[address] [facility] Comment on above: Order Comment: Speci men Type: VENOUS BLOOD SPECIMENOrdering Facility: [facility] Address: [address] [place] [address] Performed By: #### 2 4344-4 ####[facility] LABIA [id number] [place] [address] [place] Calcium.ionized (Bld) [Mass/Vol] 1.08 mmol/L Normal 1.08-1.[address] [facility] Comment on above: Order Comment: Speci men Type: VENOUS BLOOD SPECIMENOrdering Facility: [facility] Address: [address] [place] [address] Performed By: #### 2 4344-4 ####[facility] LABIA [id number] [place] [address] [place] Carboxyhemoglobin (BldV) [Mass fraction] 1.8 % Normal 0.0-2.[address] [facility] Comment on above: Order Comment: Speci men Type: VENOUS BLOOD SPECIMENOrdering Facility: [facility] Address: [address] [place] [address] Result Comment: Carb oxyhemoglobin Reference Range for Smokers: 2.0-8.0% Performed By: #### 2 4344-4 ####[facility] LABIA [id number] [place] [address] [place] CO2 (BldV) [Partial pressure] 46 mm[Hg] Normal 42-[address] [facility] Comment on above: Order Comment: Speci men Type: VENOUS BLOOD SPECIMENOrdering Facility: [facility] Address: [address] [place] [address] Performed By: #### 2 4344-4 ####[facility] LABIA [id number] [place] [address] [place] CO2 adjusted to patient's actual temperature (BldV) [Partial pressure] 46 mmHg Normal 42-[address] [facility] Comment on above: Order Comment: Speci men Type: VENOUS BLOOD SPECIMENOrdering Facility: [facility] Address: [address] [place] [address] Performed By: #### 2 4344-4 ####[facility] LABCLIA [id number] [facility] [address] [place] [address] [place] Glucose [Mass/Vol] 201 mg/dL High 60-105 [facility] Comment on above: Order Comment: Speci men Type: VENOUS BLOOD SPECIMENOrdering Facility: [facility] Address: [address] [place] [address] Performed By: #### 2 4344-4 ####[facility] LABCLIA [id number] [facility] [address], [facility] [place] HCO3 (Bld) [Moles/Vol] 27 mmol/L Normal 24-28 [facility] Comment on above: Order Comment: Speci men Type: VENOUS BLOOD SPECIMENOrdering Facility: [facility] Address: [address] [place] [address] Performed By: #### 2 4344-4 ####[facility] LABCLIA [id number] [place] [address] [place] Hematocrit (Bld) [Volume fraction] 29.9 % Low 36.0-46.[address] [facility] Comment on above: Order Comment: Speci men Type: VENOUS BLOOD SPECIMENOrdering Facility: [facility] Address: [address] [place] [address] Performed By: #### 2 4344-4 ####[facility] LABCLIA [id number] [facility] [place] [id number] [place] Hemoglobin (Bld) [Mass/Vol] 9.7 g/dL Low 11.5-15.[address] [facility] Comment on above: Order Comment: Speci men Type: VENOUS BLOOD SPECIMENOrdering Facility: [facility] Address: [address] [place] [address] Performed By: #### 2 4344-4 ####[facility] LABCLIA [id number] [place] [id number] [place] Lactate [Moles/Vol] 1.5 mmol/L Normal 0.5-2.2 [facility] Comment on above: Order Comment: Speci men Type: VENOUS BLOOD SPECIMENOrdering Facility: [facility] Address: [address] [place] [address] Performed By: #### 2 4344-4 ####[facility] LABCLIA [id number] [place] [id number] [place] Methemoglobin (Bld) [Mass fraction] 1.0 % Normal 0.0-1.[address] [facility] Comment on above: Order Comment: Speci men Type: VENOUS BLOOD SPECIMENOrdering Facility: [facility] Address: [address] [place] [address] Performed By: #### 2 4344-4 ####[facility] LABCLIA [id number] [place] [id number] [place] Oxygen (BldV) [Partial pressure] 43 mm[Hg] Normal 35-[address] [facility] Comment on above: Order Comment: Speci men Type: VENOUS BLOOD SPECIMENOrdering Facility: [facility] Address: [address] [place] [address] Performed By: #### 2 4344-4 ####[facility] LABCLIA [id number] [place] [id number] [place] Oxygen adjusted to patient's actual temperature (BldV) [Partial pressure] 43 mmHg Normal 35-[address] [facility] Comment on above: Order Comment: Speci men Type: VENOUS BLOOD SPECIMENOrdering Facility: [facility] Address: [address] [place] [address] Performed By: #### 2 4344-4 ####[facility] LABCLIA [id number] [place] [id number] [place] Oxygen saturation in Venous blood 73 % Normal 60-[address] [facility] Comment on above: Order Comment: Speci men Type: VENOUS BLOOD SPECIMENOrdering Facility: [facility] Address: [address] [place] [address] Performed By: #### 2 4344-4 ####[facility] LABCLIA [id number] [address] [address] [place] Oxyhemoglobin (BldV) [Mass fraction] 71 % Normal 60-[address] [facility] Comment on above: Order Comment: Speci men Type: VENOUS BLOOD SPECIMENOrdering Facility: [facility] Address: [address] [place] [address] Performed By: #### 2 4344-4 ####[facility] LABCLIA [id number] [place] [id number] [place] pH (BldV) 7.40 [pH] Normal 7.32-7.[address] [facility] Comment on above: Order Comment: Speci men Type: VENOUS BLOOD SPECIMENOrdering Facility: [facility] Address: [address] [place] [address] Performed By: #### 2 4344-4 ####[facility] LABIA [id number] [place] [id number] [place] pH adjusted to patient's actual temperature (BldV) 7.40 Normal 7.32-7.[address] [facility] Comment on above: Order Comment: Speci men Type: VENOUS BLOOD SPECIMENOrdering Facility: [facility] Address: [address] [place] [address] Performed By: #### 2 4344-4 ####[facility] LABCLIA [id number] [address] [address] [place] Potassium [Moles/Vol] 3.6 mmol/L Normal 3.5-5.0 [facility] Comment on above: Order Comment: Speci men Type: VENOUS BLOOD SPECIMENOrdering Facility: [facility] Address: [address] [place], [place] [id number] Performed By: #### 2 4344-4 ####[facility] LABCLIA [id number] [place] [id number] [place] Sodium [Moles/Vol] 136 mmol/L Normal 136-144 [facility] Comment on above: Order Comment: Speci men Type: VENOUS BLOOD SPECIMENOrdering Facility: [facility] Address: [address] [place] [address] Performed By: #### 2 4344-4 ####[facility] LABCLIA [id number] [place] [address] [place] Glucose SerPl-mCncon 025 Glucose [Mass/Vol] 131 mg/dL High 74-99 [facility] Comment on above: Order Comment: Speci men Type: BLOOD SPECIMENOrdering Facility: [facility] Address: [address] [place] [address] Result Comment: The [place] [employer] (ADA) provides guidance for cutoff [...] Standards of Medical Care in Diabetes 2016, [place] [employer]. Diabetes Care. 2016.39(Suppl 1). Performed By: #### 2 345-7 ####[facility] LABCLIA [id number] [place] [id number] [place] Hematocrit Auto (Bld) [Volum e fraction]on 09-04-2024 Hematocrit (Bld) [Volume fraction] 34.3 % Low 36.0-46.[address] [facility] Comment on above: Order Comment: Speci men Type: BLOOD SPECIMENOrdering Facility: [facility] Address: [address] [place] [address] Performed By: #### 4 544-3 ####[facility] LABCLIA [id number] [address] [address] [place] INTRAOPERATIVE ECHO PREon INTRAOPERATIVE ECHO PRE Normal [facility] OPERATIVE NOon 09-04-2024 OPERATIVE NO Normal [facility] Pathology biopsy report Ganesh (Tiss)on 09-04-2024 AP DISCLAIMER Normal [facility] Comment on above: Order Comment: Speci men Type: TISSUE SPECIMENOrdering Facility: [facility] Address: [address] [place] [address] Result Comment: Nunu beverly Developed Test (LDT) Disclaimer:Performance characteristics of immunohistochemical, immunofluorescent, and chromogenic in-situ hybridization tests have been determined by the performing laboratory within [facility]'s [facility] Pathology and Laboratory Medicine Department ([facility], [facility], [facility], [facility], [facility], [facility], or [facility]) in a manner consistent with CLIA requirements. One or more of these tests may not have been cleared or approved by the FDA. [facility] is regulated under CLIA as qualified to perform high-complexity testing. These tests are used for clinical purposes. These should not be regarded as investigational or for research. Positive and negative controls stain appropriately. Performed By: #### 6 6121-5 ####[facility] LABIA [id number] [address] [address] [place] CASE REPORT Normal [facility] Comment on above: Order Comment: Speci men Type: TISSUE SPECIMENOrdering Facility: [facility] Address: [address] [place], [place] [address] Result Comment: Surg ical Pathology Report Case: [id number] Provider: Wilberto Damon MD Collected: 09/04/2024 10:27 AMOrdering Location: Admitting Received: 09/04/2024 02:12 PMPathologist: Sarah Matta MDSpecimens: A) - Heart, Aortic Valve B) - Aorta, please send to histology Performed By: #### 6 6121-5 ####[facility] LABIA [id number] [address] [address] [place] CLINICAL HISTORY Normal [facility] Comment on above: Order Comment: Speci nico Type: TISSUE SPECIMENOrdering Facility: [facility] Address: [address] [place] [address] Result Comment: Pre- op diagnosis: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 Comment on above: Order Comment: Speci men Type: TISSUE SPECIMENOrdering Facility: [facility] Address: [address] [place] [address] Result Comment: A. A ortic valve, excision:- Bicuspid semilunar valve with severe calcification and severe fibrosis (gross examination only).CDT/MSL 09/05/2024. Aorta, partial excision:- Moderate patchy loss of smooth muscle cells.- Mild increase in mucopolysaccharides.CSM 09/08/2024 at 1629 EDT Performed By: #### 6 6121-5 ####[facility] LABCLIA [id number] [address] [address] [place] FINAL PERFORMING LAB Normal [facility] Comment on above: Order Comment: Speci men Type: TISSUE SPECIMENOrdering Facility: [facility] Address: [address] [place], [place] [address] Result Comment: Diag nostic interpretation performed at: [facility], [address] [place] [address] CLIA# [id number] Director: Shiraz Curry MD Performed By: #### 6 6121-5 ####[facility] LABCLIA [id number] [address] [address] [place] GROSS DESCRIPTION Normal [facility] Comment on above: Order Comment: Speci men Type: TISSUE SPECIMENOrdering Facility: [facility] Address: [address] [place] [address] Result Comment: Lashae. Evgeny eart, Aortic ValveReceived in formalin, labeled ??? [...] with Dr. Mellissa Gallegos.Gross examination performed at [facility], [address] [place], [place] [address]MSL/SHANA 09/05/24 10:19 AM Performed By: #### 6 6121-5 ####[facility] LABCLIA [id number] [address] [place] MICROSCOPIC DESCRIPTION Normal [facility] Comment on above: Order Comment: Speci men Type: TISSUE SPECIMENOrdering Facility: [facility] Address: [address] [place] [address] Result Comment: B. M ovat stain was [...] inflammatory infiltrates. Performed By: #### 6 6121-5 ####[facility] LABIA [id number] [place] [address] [place] Platelets Auto (Bld) [#/Vol] on 09-04-2024 Platelets (Bld) [#/Vol] 305 10*3/uL Normal 150-[address] [facility] Comment on above: Order Comment: Speci men Type: BLOOD SPECIMENOrdering Facility: [facility] Address: [address] [place] [address] Performed By: #### 7 77-3 ####[facility] [id number] [place] [address] [place] STAPHYLOCOCCUS AUREUS AND MR SA SCREEN, PCR, NASALon 09-04-2024 S. aureus and MRSA panel KADY+probe (Nose) Not detected Normal Not Detected [facility] Comment on above: Order Comment: Speci men Type: SWABOrdering Facility: [facility] Address: [address] [place] [address] Performed By: #### S APCR ####[facility] [id number] [place] [address] [place] THROMBOGRAPH HEPARINASE PANE Kong 09-04-2024 Clot angle after addition of heparinase TEG (Bld) [Angle] 71.1 degrees Normal 47.0-74.[address] [facility] Comment on above: Order Comment: Speci men Type: BLOOD SPECIMENOrdering Facility: [facility] Address: [address] [place] [address] Performed By: #### T EGHPP ####[facility] [id number] [place] [address] [place] Clot Lysis 30 Min post maximum clot amplitude TEG (Bld) [Length fraction] 0.0 % Normal 0.0-8.[address] [facility] Comment on above: Order Comment: Speci men Type: BLOOD SPECIMENOrdering Facility: [facility] Address: [address] [place] [address] Performed By: #### T EGHPP ####[facility] LABCLIA [id number] [place] [address] [place] Clotting time after addition of heparinase TEG (Bld) 5.9 minutes Normal 4.0-10.[address] [facility] Comment on above: Order Comment: Speci men Type: BLOOD SPECIMENOrdering Facility: [facility] Address: [address] [place] [address] Performed By: #### T EGHPP ####[facility] LABCLIA [id number] [place] [address] [place] Coagulation index TEG Qn (Bld) 2.0 Normal -4.6-3.[address] [facility] Comment on above: Order Comment: Speci men Type: BLOOD SPECIMENOrdering Facility: [facility] Address: [address] [place] [address] Result Comment: This test was developed, and its performance characteristics determined by the [facility] Department of Pathology and Laboratory Medicine. It has not been cleared or approved by the FDA. The [facility] Department of Pathology and Laboratory Medicine is regulated under CLIA as qualified to perform high-complexity testing. This test is used for clinical purposes. It should not be regarded as investigational or for research. Performed By: #### T EGHPP ####[facility] LABIA [id number] [place] [address] [place] Maximum clot firmness after addition of heparinase TEG (Bld) [Length] 70.7 mm Normal 51.0-75.[address] [facility] Comment on above: Order Comment: Speci men Type: BLOOD SPECIMENOrdering Facility: [facility] Address: [address] [place] [address] Performed By: #### T EGHPP ####[facility] LABCLIA [id number] [facility] [place] [id number] [place] Thromboelastography after addtion of heparinase panel (Bld) Normal [facility] Comment on above: Order Comment: Speci men Type: BLOOD SPECIMENOrdering Facility: [facility] Address: [address] [place] [address] Result Comment: A th romboelastograph (TEG) study [...] timely manner. Performed By: #### T EGHPP ####[facility] LABCLIA [id number] [place] [address] [place] XR CHEST 1V FRONTAL PORTon 0 09-04-2024 XR CHEST 1V FRONTAL PORT Normal [facility] ALLIED HEALTHon 09-03-2024 ALLIED HEALTH Normal [facility] Basic metabolic 2000 panelon 09-03-2024 Anion gap [Moles/Vol] 14 mmol/L Normal 8-15 [facility] Comment on above: Order Comment: Ulises walsh Type: BLOOD SPECIMENOrdering Facility: [facility] Address: [address] [place] [address] Performed By: #### 2 4321-2, 18878-6, 2777-1, 09681-2 ####[facility] LABCLIA [id number] [place] [id number] [place] Calcium [Mass/Vol] 9.1 mg/dL Normal 8.5-10.2 [facility] Comment on above: Order Comment: Speci men Type: BLOOD SPECIMENOrdering Facility: [facility] Address: [address] [place] [address] Performed By: #### 2 4321-2, 30637-5, 2776-02, ####[facility] LABCLIA [id number] [address] [address] [place] Chloride [Moles/Vol] 100 mmol/L Normal 98-107 [facility] Comment on above: Order Comment: Speci men Type: BLOOD SPECIMENOrdering Facility: [facility] Address: [address] [place] [address] Performed By: #### 2 4321-2, 23440-5, 2776-02, ####[facility] LABCLIA [id number] [address] [address] [place] CO2 [Moles/Vol] 25 mmol/L Normal 22-[address] [facility] Comment on above: Order Comment: Speci men Type: BLOOD SPECIMENOrdering Facility: [facility] Address: [address] [place] [address] Performed By: #### 2 4321-2, 56312-5, 2776-02, ####[facility] LABCLIA [id number] [address] [address] [place] Creatinine [Mass/Vol] 0.66 mg/dL Normal 0.58-0.96 [facility] Comment on above: Order Comment: Speci men Type: BLOOD SPECIMENOrdering Facility: [facility] Address: [address] [place] [address] Performed By: #### 2 4321-2, 39947-7, 2776-02, ####[facility] LABCLIA [id number] [address] [address] [place] eGFRcr SerPlBld CKD-EPI 2020 109 mL/min/1.73m??? Normal >=[address] [facility] Comment on above: Order Comment: Ulises walsh Type: BLOOD SPECIMENOrdering Facility: [facility] Address: [address] [place] [address] Result Comment: Tsering mated Glomerular Filtration Rate [...] actual GFR. Performed By: #### 2 4321-2, 38533-3, 2776-, ####[facility] LABIA [id number] [place] [address] [place] Glucose [Mass/Vol] 104 mg/dL High 74-99 [facility] Comment on above: Order Comment: Ulises nico Type: BLOOD SPECIMENOrdering Facility: [facility] Address: [address] [place] [address] Result Comment: The [place] [employer] (ADA) provides guidance for cutoff [...] Standards of Medical Care in Diabetes 2016, [place] [employer]. Diabetes Care. 2016.39(Suppl 1). Performed By: #### 2 4321-2, 87593-7, 2776-, ####[facility] LABIA [id number] [address] [address] [place] Potassium [Moles/Vol] 3.9 mmol/L Normal 3.7-5.1 [facility] Comment on above: Order Comment: Speci men Type: BLOOD SPECIMENOrdering Facility: [facility] Address: [address] [place] [address] Performed By: #### 2 4321-2, 73589-3, 2776-02, ####[facility] LABCLIA [id number] [facility] [address] [address] [place] Sodium [Moles/Vol] 139 mmol/L Normal 136-144 [facility] Comment on above: Order Comment: Speci men Type: BLOOD SPECIMENOrdering Facility: [facility] Address: [address] [place] [address] Performed By: #### 2 4321-2, 14745-3, 2776-02, ####[facility] LABCLIA [id number] [place] [id number] [place] Urea nitrogen [Mass/Vol] 14 mg/dL Normal 7-[address] [facility] Comment on above: Order Comment: Speci men Type: BLOOD SPECIMENOrdering Facility: [facility] Address: [address] [place] [address] Performed By: #### 2 4321-2, 33812-9, 2776-02, ####[facility] LABCLIA [id number] [address] [address] [place] CASE MANAGEMon 09-03-2024 CASE MANAGEM Normal [facility] CBC panel Auto (Bld)on 09-03 Erythrocyte distribution width (RBC) [Ratio] 14.6 % Normal 11.5-15.[address] [facility] Comment on above: Order Comment: Speci men Type: BLOOD SPECIMENOrdering Facility: [facility] Address: [address] [place], [place] [address] Performed By: #### 5 8410-2 ####[facility] LABCLIA [id number] [place] [id number] [place] Hematocrit (Bld) [Volume fraction] 39.6 % Normal 36.0-46.[address] [facility] Comment on above: Order Comment: Speci men Type: BLOOD SPECIMENOrdering Facility: [facility] Address: [address] [place] [address] Performed By: #### 5 8410-2 ####[facility] LABIA [id number] [place] [address] [place] Hemoglobin (Bld) [Mass/Vol] 12.8 g/dL Normal 11.5-15.[address] [facility] Comment on above: Order Comment: Speci men Type: BLOOD SPECIMENOrdering Facility: [facility] Address: [address] [place] [address] Performed By: #### 5 8410-2 ####[facility] LABIA [id number] [place] [address] [place] MCH (RBC) [Entitic mass] 29.4 pg Normal 26.0-34.[address] [facility] Comment on above: Order Comment: Speci men Type: BLOOD SPECIMENOrdering Facility: [facility] Address: [address] [place] [address] Performed By: #### 5 8410-2 ####[facility] LABIA [id number] [place] [address] [place] MCHC (RBC) [Mass/Vol] 32.3 g/dL Normal 30.5-36.0 [facility] Comment on above: Order Comment: Speci men Type: BLOOD SPECIMENOrdering Facility: [facility] Address: [address] [place] [address] Performed By: #### 5 8410-2 ####[facility] LABIA [id number] [place] [address] [place] MCV (RBC) [Entitic vol] 91.0 fL Normal 80.0-100.[address] [facility] Comment on above: Order Comment: Speci men Type: BLOOD SPECIMENOrdering Facility: [facility] Address: [address] [place] [address] Performed By: #### 5 8410-2 ####[facility] LABCLIA [id number] [place] [address] [place] Nucleated RBC (Bld) [#/Vol] 10*3/uL Normal <0.[address] [facility] Comment on above: Order Comment: Speci men Type: BLOOD SPECIMENOrdering Facility: [facility] Address: [address] [place] [address] Performed By: #### 5 8410-2 ####[facility] LABCLIA [id number] [place] [address] [place] Platelet mean volume (Bld) [Entitic vol] 9.4 fL Normal 9.0-12.[address] [facility] Comment on above: Order Comment: Speci men Type: BLOOD SPECIMENOrdering Facility: [facility] Address: [address] [place] [address] Performed By: #### 5 8410-2 ####[facility] LABCLIA [id number] [place] [address] [place] Platelets (Bld) [#/Vol] 477 10*3/uL High 150-[address] [facility] Comment on above: Order Comment: Speci men Type: BLOOD SPECIMENOrdering Facility: [facility] Address: [address] [place] [address] Performed By: #### 5 8410-2 ####[facility] LABCLIA [id number] [place] [address] [place] RBC (Bld) [#/Vol] 4.35 10*6/uL Normal 3.90-5.20 [facility] Comment on above: Order Comment: Speci men Type: BLOOD SPECIMENOrdering Facility: [facility] Address: [address] [place] [address] Performed By: #### 5 8410-2 ####[facility] LABCLIA [id number] [address] [place] [address] [place] WBC (Bld) [#/Vol] 11.45 10*3/uL High 3.70-11.00 [facility] Comment on above: Order Comment: Speci men Type: BLOOD SPECIMENOrdering Facility: [facility] Address: [address] [place] [address] Performed By: #### 5 8410-2 ####[facility] LABIA [id number] [address] [address] [place] CONSULT PROGon 09-03-2024 CONSULT PROG Normal [facility] Hepatic function 2000 panelo n 09-03-2024 Albumin [Mass/Vol] 4.0 g/dL Normal 3.9-4.9 [facility] Comment on above: Order Comment: Speci men Type: BLOOD SPECIMENOrdering Facility: [facility] Address: [address] [place] [address] Performed By: #### 2 4321-2, 98577-9, 277-1, 01683-1 ####[facility]UN[facility] [id number] [address] [address] [place] ALP [Catalytic activity/Vol] 117 U/L Normal 34-[address] [facility] Comment on above: Order Comment: Speci men Type: BLOOD SPECIMENOrdering Facility: [facility] Address: [address] [place], [place] [address] Performed By: #### 2 4321-2, 34710-9, 2777-1, 86881-9 ####[facility] LABIA [id number] [address] [address] [place] ALT [Catalytic activity/Vol] 19 U/L Normal 7-[address] [facility] Comment on above: Order Comment: Speci men Type: BLOOD SPECIMENOrdering Facility: [facility] Address: [address] [place], [place] [address] Performed By: #### 2 4321-2, 57623-8, 2776-, ####[facility] LABCLIA [id number] [address] [address] [place] AST [Catalytic activity/Vol] 15 U/L Normal 13-[address] [facility] Comment on above: Order Comment: Speci men Type: BLOOD SPECIMENOrdering Facility: [facility] Address: [address] [place] [address] Performed By: #### 2 4321-2, 94947-9, 2776-, ####[facility] LABIA [id number] [place] [id number] [place] Bilirubin [Mass/Vol] 0.3 mg/dL Normal 0.2-1.3 [facility] Comment on above: Order Comment: Speci men Type: BLOOD SPECIMENOrdering Facility: [facility] Address: [address] [place] [address] Performed By: #### 2 4321-2, 75667-9, 2776-02, ####[facility] LABIA [id number] [place] [address] [place] Bilirubin.conjugated [Mass/Vol] 0.1 mg/dL Normal <0.[address] [facility] Comment on above: Order Comment: Speci men Type: BLOOD SPECIMENOrdering Facility: [facility] Address: [address] [place] [address] Performed By: #### 2 4321-2, 84003-9, 2776-02, ####[facility] LABIA [id number] [place] [address] [place] Protein [Mass/Vol] 7.1 g/dL Normal 6.3-8.0 [facility] Comment on above: Order Comment: Speci men Type: BLOOD SPECIMENOrdering Facility: [facility] Address: [address] [place] [address] Performed By: #### 2 4321-2, 09807-7, 2777-1, ####[facility] LABCLIA [id number] [place] [address] [place] Magnesium SerPl-mCncon 09-03 Magnesium [Mass/Vol] 2.1 mg/dL Normal 1.7-2.3 [facility] Comment on above: Order Comment: Spectariq men Type: BLOOD SPECIMENOrdering Facility: [facility] Address: [address] [place] [address] Performed By: #### 2 4321-2, 55532-6, 2777-1, ####[facility] LABIA [id number] [address] [place] PT panel Coag (PPP)on 2024 INR Coag (PPP) [Relative time] 1.0 {INR} Normal 0.9-1.[address] [facility] Comment on above: Order Comment: Speci nico Type: BLOOD SPECIMENOrdering Facility: [facility] Address: [address] [place] [address] Result Comment: Annamarie min K Antagonist (VKA) Therapeutic Range: INR 2 to 3 (Target INR of 2.5)Note: For patients treated with VKA drugs, such as warfarin, the [place] [employer] 2012 Guideline recommends [...] of 3).Bert GARCIA, et al. Chest 2012, 141:7S-47SMarcio RA, et al. [facility] 2017, 70: 252-289 Performed By: #### 3 4528-0 ####[facility] LABCLIA [id number] [address] [address] [place] PT Coag (PPP) [Time] 11.1 s Normal 9.7-13.0 [facility] Comment on above: Order Comment: Speci men Type: BLOOD SPECIMENOrdering Facility: [facility] Address: [address] [place], [place] [address] Performed By: #### 3 4528-0 ####[facility] LABIA [id number] [address] [address] [place] Phosphate SerPl-mCncon 09-03 Phosphate [Mass/Vol] 4.2 mg/dL Normal 2.7-4.8 [facility] Comment on above: Order Comment: Speci men Type: BLOOD SPECIMENOrdering Facility: [facility] Address: [address] [place] [address] Performed By: #### 2 4321-2, 88078-1, 2777-1, 32103-9 ####[facility] LABIA [id number] [place] [id number] [place] Basic metabolic 2000 panelon 09-02-2024 Anion gap [Moles/Vol] 11 mmol/L Normal 8-15 [facility] Comment on above: Order Comment: Speci men Type: BLOOD SPECIMENOrdering Facility: [facility] Address: [address] [place], [place] [address] Performed By: #### 2 4321-2, 2777-1, 16939-1, 97341-7 ####[facility] LABIA [id number] [address] [address] [place] Calcium [Mass/Vol] 8.9 mg/dL Normal 8.5-10.2 [facility] Comment on above: Order Comment: Speci men Type: BLOOD SPECIMENOrdering Facility: [facility] Address: [address] [place] [address] Performed By: #### 2 4321-2, 2777-1, , 37605-0 ####[facility] LABCLIA [id number] [address] [address] [place] Chloride [Moles/Vol] 100 mmol/L Normal 98-107 [facility] Comment on above: Order Comment: Speci men Type: BLOOD SPECIMENOrdering Facility: [facility] Address: [address] [place] [address] Performed By: #### 2 4321-2, 2777-1, , 26296-1 ####[facility] LABCLIA [id number] [place] [id number] [place] CO2 [Moles/Vol] 25 mmol/L Normal 22-[address] [facility] Comment on above: Order Comment: Speci men Type: BLOOD SPECIMENOrdering Facility: [facility] Address: [address] [place] [address] Performed By: #### 2 4321-2, 2777-1, , 78131-8 ####[facility] LABCLIA [id number] [place] [id number] [place] Creatinine [Mass/Vol] 0.60 mg/dL Normal 0.58-0.96 [facility] Comment on above: Order Comment: Speci men Type: BLOOD SPECIMENOrdering Facility: [facility] Address: [address] [place] [address] Performed By: #### 2 4321-2, 2777-1, , 63678-3 ####[facility] LABCLIA [id number] [place] [id number] [place] Creatinine and Glomerular filtration rate.predicted panel (S/P/Bld) 112 mL/min/1.73m??? Normal >=[address] [facility] Comment on above: Order Comment: Speci men Type: BLOOD SPECIMENOrdering Facility: [facility] Address: [address] [place] [address] Result Comment: Tsering mated Glomerular Filtration Rate [...] Performed By: #### 2 4321-2, 2777-1, , 70726-7 ####[facility] LABIA [id number] [address] [address] [place] Glucose [Mass/Vol] 118 mg/dL High 74-99 [facility] Comment on above: Order Comment: Ulises walsh Type: BLOOD SPECIMENOrdering Facility: [facility] Address: [address] [place] [address] Result Comment: The [place] [employer] (ADA) provides guidance for cutoff [...] Standards of Medical Care in Diabetes 2016, [place] [employer]. Diabetes Care. 2016.39(Suppl 1). Performed By: #### 2 4321-2, 2777-1, 21778-8, 48561-1 ####[facility] LABIA [id number] [address] [address] [place] Potassium [Moles/Vol] 4.0 mmol/L Normal 3.7-5.1 [facility] Comment on above: Order Comment: Ulises walsh Type: BLOOD SPECIMENOrdering Facility: [facility] Address: [address] [place] [address] Performed By: #### 2 4321-2, 2777-1, 99261-3, 62861-8 ####[facility] LABCLIA [id number] [address] [address] [place] Sodium [Moles/Vol] 136 mmol/L Normal 136-144 [facility] Comment on above: Order Comment: Speci men Type: BLOOD SPECIMENOrdering Facility: [facility] Address: [address] [place] [address] Performed By: #### 2 4321-2, 2777-1, , 00815-9 ####[facility] LABCLIA [id number] [place] [id number] [place] Urea nitrogen [Mass/Vol] 12 mg/dL Normal 7-[address] [facility] Comment on above: Order Comment: Speci men Type: BLOOD SPECIMENOrdering Facility: [facility] Address: [address] [place] [address] Performed By: #### 2 4321-2, 2777-1, , 34249-9 ####[facility] LABIA [id number] [place] [id number] [place] CASE MGT INIT ASSESon 2024 CASE MGT INIT ASSES Normal [facility] CBC panel Auto (Bld)on 09-02 Erythrocyte distribution width (RBC) [Ratio] 15.1 % High 11.5-15.[address] [facility] Comment on above: Order Comment: Speci men Type: BLOOD SPECIMENOrdering Facility: [facility] Address: [address] [place] [address] Performed By: #### 5 8410-2 ####[facility] LABCLIA [id number] [place] [id number] [place] Hematocrit (Bld) [Volume fraction] 38.9 % Normal 36.0-46.[address] [facility] Comment on above: Order Comment: Speci men Type: BLOOD SPECIMENOrdering Facility: [facility] Address: [address] [place] [address] Performed By: #### 5 8410-2 ####[facility] LABCLIA [id number] [place] [address] [place] Hemoglobin (Bld) [Mass/Vol] 12.5 g/dL Normal 11.5-15.[address] [facility] Comment on above: Order Comment: Speci men Type: BLOOD SPECIMENOrdering Facility: [facility] Address: [address] [place] [address] Performed By: #### 5 8410-2 ####[facility] LABCLIA [id number] [place] [address] [place] MCH (RBC) [Entitic mass] 29.7 pg Normal 26.0-34.[address] [facility] Comment on above: Order Comment: Speci men Type: BLOOD SPECIMENOrdering Facility: [facility] Address: [address] [place] [address] Performed By: #### 5 8410-2 ####[facility] LABCLIA [id number] [place] [address] [place] MCHC (RBC) [Mass/Vol] 32.1 g/dL Normal 30.5-36.0 [facility] Comment on above: Order Comment: Speci men Type: BLOOD SPECIMENOrdering Facility: [facility] Address: [address] [place] [address] Performed By: #### 5 8410-2 ####[facility] LABCLIA [id number] [place] [address] [place] MCV (RBC) [Entitic vol] 92.4 fL Normal 80.0-100.[address] [facility] Comment on above: Order Comment: Speci men Type: BLOOD SPECIMENOrdering Facility: [facility] Address: [address] [place] [address] Performed By: #### 5 8410-2 ####[facility] LABCLIA [id number] [address] [address] [place] Nucleated RBC (Bld) [#/Vol] 10*3/uL Normal <0.[address] [facility] Comment on above: Order Comment: Speci men Type: BLOOD SPECIMENOrdering Facility: [facility] Address: [address] [place] [address] Performed By: #### 5 8410-2 ####[facility] LABIA [id number] [place] [address] [place] Platelet mean volume (Bld) [Entitic vol] 9.7 fL Normal 9.0-12.[address] [facility] Comment on above: Order Comment: Speci men Type: BLOOD SPECIMENOrdering Facility: [facility] Address: [address] [place] [address] Performed By: #### 5 8410-2 ####[facility] LABIA [id number] [place] [address] [place] Platelets (Bld) [#/Vol] 436 10*3/uL High 150-[address] [facility] Comment on above: Order Comment: Speci men Type: BLOOD SPECIMENOrdering Facility: [facility] Address: [address] [place] [address] Performed By: #### 5 8410-2 ####[facility] LABIA [id number] [place] [address] [place] RBC (Bld) [#/Vol] 4.21 10*6/uL Normal 3.90-5.20 [facility] Comment on above: Order Comment: Speci men Type: BLOOD SPECIMENOrdering Facility: [facility] Address: [address] [place] [address] Performed By: #### 5 8410-2 ####[facility] LABIA [id number] [place] [address] [place] WBC (Bld) [#/Vol] 12.30 10*3/uL High 3.70-11.00 [facility] Comment on above: Order Comment: Speci men Type: BLOOD SPECIMENOrdering Facility: [facility] Address: [address] [place] [address] Performed By: #### 5 8410-2 ####[facility] LABIA [id number] [place] [address] [place] CONSULTon 09-02-2024 CONSULT Normal [facility] CONSULT Normal [facility] CONSULT Normal [facility] CONSULT PROGon 09-02-2024 CONSULT PROG Normal [facility] ECG COMPLETEon 09-02-2024 ECG COMPLETE Normal [facility] Hepatic function 2000 panelo n 09-02-2024 Albumin [Mass/Vol] 3.8 g/dL Low 3.9-4.9 [facility] Comment on above: Order Comment: Speci men Type: BLOOD SPECIMENOrdering Facility: [facility] Address: [address] [place] [address] Performed By: #### 2 4321-2, 2777-1, 41285-0, 31801-9 ####[facility] LABIA [id number] [place] [address] [place] ALP [Catalytic activity/Vol] 115 U/L Normal 34-[address] [facility] Comment on above: Order Comment: Speci men Type: BLOOD SPECIMENOrdering Facility: [facility] Address: [address] [place] [address] Performed By: #### 2 4321-2, 2777-1, 39622-6, 32127-8 ####[facility] LABIA [id number] [place] [id number] [place] ALT [Catalytic activity/Vol] 18 U/L Normal 7-[address] [facility] Comment on above: Order Comment: Speci men Type: BLOOD SPECIMENOrdering Facility: [facility] Address: [address] [place] [address] Performed By: #### 2 4321-2, 2777-1, 12579-2, 41154-4 ####[facility] LABCLIA [id number] [address] [address] [place] AST [Catalytic activity/Vol] 15 U/L Normal 13-[address] [facility] Comment on above: Order Comment: Speci men Type: BLOOD SPECIMENOrdering Facility: [facility] Address: [address] [place] [address] Performed By: #### 2 4321-2, 2777-1, , 99072-1 ####[facility] LABIA [id number] [address] [address] [place] Bilirubin [Mass/Vol] 0.4 mg/dL Normal 0.2-1.3 [facility] Comment on above: Order Comment: Speci men Type: BLOOD SPECIMENOrdering Facility: [facility] Address: [address] [place] [address] Performed By: #### 2 4321-2, 2777-1, , 30265-9 ####[facility] LABIA [id number] [address] [address] [place] Bilirubin.conjugated [Mass/Vol] 0.2 mg/dL Normal <0.[address] [facility] Comment on above: Order Comment: Speci men Type: BLOOD SPECIMENOrdering Facility: [facility] Address: [address] [place] [address] Performed By: #### 2 4321-2, 2777-1, , 38108-7 ####[facility] LABIA [id number] [address] [address] [place] Protein [Mass/Vol] 6.8 g/dL Normal 6.3-8.0 [facility] Comment on above: Order Comment: Speci men Type: BLOOD SPECIMENOrdering Facility: [facility] Address: [address] [place] [address] Performed By: #### 2 4321-2, 2777-1, 45762-5, 67608-6 ####[facility] LABCLIA [id number] [address] [address] [place] Magnesium SerPl-mCncon 09-02 Magnesium [Mass/Vol] 2.1 mg/dL Normal 1.7-2.3 [facility] Comment on above: Order Comment: Speci men Type: BLOOD SPECIMENOrdering Facility: [facility] Address: [address] [place] [id number] Performed By: #### 2 4321-2, 2777-1, 03306-0, 19050-9 ####[facility] LABCLIA [id number] [place] [id number] [place] [facility] PT panel Coag (PPP)on 2024 INR Coag (PPP) [Relative time] 1.1 {INR} Normal 0.9-1.[address] [facility] Comment on above: Order Comment: Ulises walsh Type: BLOOD SPECIMENOrdering Facility: [facility] Address: [address] [place] [address] Result Comment: Annamarie min K Antagonist (VKA) Therapeutic Range: INR 2 to 3 (Target INR of 2.5)Note: For patients treated with VKA drugs, such as warfarin, the [place] [employer] 2012 Guideline recommends [...] al. Chest 2012, 141:7S-47SNishimura RA, et al. [facility] 2017, 70: 252-289 Performed By: #### 3 4528-0 ####[facility] LABIA [id number] [place] [id number] [place] PT Coag (PPP) [Time] 11.4 s Normal 9.7-13.0 [facility] Comment on above: Order Comment: Speci men Type: BLOOD SPECIMENOrdering Facility: [facility] Address: [address] [place] [address] Performed By: #### 3 4528-0 ####[facility]UN[facility] [id number] [place] [id number] [place] Phosphate SerPl-mCncon 09-02 Phosphate [Mass/Vol] 3.9 mg/dL Normal 2.7-4.8 [facility] Comment on above: Order Comment: Speci men Type: BLOOD SPECIMENOrdering Facility: [facility] Address: [address] [place] [address] Performed By: #### 2 4321-2, 2777-1, 72302-1, 33086-6 ####[facility] [id number] [address] [place] B-HCG SerPl-aCncon 5 HCG.beta subunit Qn m[IU]/mL Normal <5.0 [facility] Comment on above: Order Comment: Speci men Type: BLOOD SPECIMENOrdering Facility: [facility] Address: [address] [place] [address] Result Comment: Nega tive Performed By: #### 2 1198-7 ####[facility] [id number] [place] [address] [place] CBC W Auto Differential pane l (Bld)on 09-01-2024 Basophils (Bld) [#/Vol] 0.05 10*3/uL Normal <0.[address] [facility] Comment on above: Order Comment: Speci men Type: BLOOD SPECIMENOrdering Facility: [facility] Address: [address] [place] [address] Performed By: #### 5 7021-8 ####[facility] LABCLIA [id number] [place] [address] [place] Basophils/100 WBC (Bld) 0.4 % Normal [facility] Comment on above: Order Comment: Speci men Type: BLOOD SPECIMENOrdering Facility: [facility] Address: [address] [place] [address] Performed By: #### 5 7021-8 ####[facility] LABCLIA [id number] [address], [place] [address] [place] Differential cell count method Nom (Bld) Auto Normal [facility] Comment on above: Order Comment: Speci men Type: BLOOD SPECIMENOrdering Facility: [facility] Address: [address] [place] [address] Performed By: #### 5 7021-8 ####[facility] LABCLIA [id number] [address], [place] [address] [place] Eosinophils (Bld) [#/Vol] 0.10 10*3/uL Normal <0.[address] [facility] Comment on above: Order Comment: Speci men Type: BLOOD SPECIMENOrdering Facility: [facility] Address: [address] [place] [address] Performed By: #### 5 7021-8 ####[facility] LABCLIA [id number] [place] [address] [place] Eosinophils/100 WBC (Bld) 0.7 % Normal [facility] Comment on above: Order Comment: Speci men Type: BLOOD SPECIMENOrdering Facility: [facility] Address: [address] [place] [address] Performed By: #### 5 7021-8 ####[facility] LABCLIA [id number] [place] [address] [place] Erythrocyte distribution width (RBC) [Ratio] 14.8 % Normal 11.5-15.[address] [facility] Comment on above: Order Comment: Speci men Type: BLOOD SPECIMENOrdering Facility: [facility] Address: [address] [place] [address] Performed By: #### 5 7021-8 ####[facility] LABIA [id number] [place] [address] [place] Hematocrit (Bld) [Volume fraction] 40.4 % Normal 36.0-46.[address] [facility] Comment on above: Order Comment: Speci men Type: BLOOD SPECIMENOrdering Facility: [facility] Address: [address] [place] [address] Performed By: #### 5 7021-8 ####[facility] LABIA [id number] [place] [address] [place] Hemoglobin (Bld) [Mass/Vol] 13.1 g/dL Normal 11.5-15.[address] [facility] Comment on above: Order Comment: Speci men Type: BLOOD SPECIMENOrdering Facility: [facility] Address: [address] [place] [address] Performed By: #### 5 7021-8 ####[facility] LABIA [id number] [place] [address] [place] Immature granulocytes (Bld) [#/Vol] 0.12 10*3/uL High <0.[address] [facility] Comment on above: Order Comment: Speci men Type: BLOOD SPECIMENOrdering Facility: [facility] Address: [address] [place] [address] Performed By: #### 5 7021-8 ####[facility] LABIA [id number] [place] [address] [place] Immature granulocytes/100 WBC (Bld) 0.8 % Normal [facility] Comment on above: Order Comment: Speci men Type: BLOOD SPECIMENOrdering Facility: [facility] Address: [address] [place] [address] Performed By: #### 5 7021-8 ####[facility] LABCLIA [id number] [address] [place] [address] [place] Lymphocytes (Bld) [#/Vol] 1.99 10*3/uL Normal 1.00-4.[address] [facility] Comment on above: Order Comment: Speci men Type: BLOOD SPECIMENOrdering Facility: [facility] Address: [address] [place] [address] Performed By: #### 5 7021-8 ####[facility] LABCLIA [id number] [address], [facility] [place] Lymphocytes/100 WBC (Bld) 14.0 % Normal [facility] Comment on above: Order Comment: Speci men Type: BLOOD SPECIMENOrdering Facility: [facility] Address: [address] [place] [address] Performed By: #### 5 7021-8 ####[facility] LABCLIA [id number] [address], [facility] [place] MCH (RBC) [Entitic mass] 29.4 pg Normal 26.0-34.[address] [facility] Comment on above: Order Comment: Speci men Type: BLOOD SPECIMENOrdering Facility: [facility] Address: [address] [place] [address] Performed By: #### 5 7021-8 ####[facility] LABCLIA [id number] [address], [facility] [place] MCHC (RBC) [Mass/Vol] 32.4 g/dL Normal 30.5-36.0 [facility] Comment on above: Order Comment: Speci men Type: BLOOD SPECIMENOrdering Facility: [facility] Address: [address] [place] [address] Performed By: #### 5 7021-8 ####[facility] LABCLIA [id number] [place] [id number] [place] MCV (RBC) [Entitic vol] 90.6 fL Normal 80.0-100.[address] [facility] Comment on above: Order Comment: Speci men Type: BLOOD SPECIMENOrdering Facility: [facility] Address: [address] [place] [address] Performed By: #### 5 7021-8 ####[facility] LABCLIA [id number] [place] [address] [place] Monocytes (Bld) [#/Vol] 0.67 10*3/uL Normal <0.[address] [facility] Comment on above: Order Comment: Speci men Type: BLOOD SPECIMENOrdering Facility: [facility] Address: [address] [place] [address] Performed By: #### 5 7021-8 ####[facility] LABCLIA [id number] [place] [address] [place] Monocytes/100 WBC (Bld) 4.7 % Normal [facility] Comment on above: Order Comment: Speci men Type: BLOOD SPECIMENOrdering Facility: [facility] Address: [address] [place] [address] Performed By: #### 5 7021-8 ####[facility] LABCLIA [id number] [place] [address] [place] Neutrophils (Bld) [#/Vol] 11.26 10*3/uL High 1.45-7.[address] [facility] Comment on above: Order Comment: Speci men Type: BLOOD SPECIMENOrdering Facility: [facility] Address: [address] [place] [address] Performed By: #### 5 7021-8 ####[facility] LABCLIA [id number] [place] [address] [place] Neutrophils/100 WBC (Bld) 79.4 % Normal [facility] Comment on above: Order Comment: Speci men Type: BLOOD SPECIMENOrdering Facility: [facility] Address: [address] [place] [address] Performed By: #### 5 7021-8 ####[facility] LABCLIA [id number] [place] [address] [place] Nucleated RBC (Bld) [#/Vol] 10*3/uL Normal <0.[address] [facility] Comment on above: Order Comment: Speci men Type: BLOOD SPECIMENOrdering Facility: [facility] Address: [address] [place] [address] Performed By: #### 5 7021-8 ####[facility] LABIA [id number] [place] [address] [place] Nucleated RBC/100 WBC (Bld) [Ratio] 0.0 /100 WBC Normal [facility] Comment on above: Order Comment: Speci men Type: BLOOD SPECIMENOrdering Facility: [facility] Address: [address] [place] [address] Performed By: #### 5 7021-8 ####[facility] LABIA [id number] [place] [address] [place] Platelet mean volume (Bld) [Entitic vol] 9.7 fL Normal 9.0-12.[address] [facility] Comment on above: Order Comment: Speci men Type: BLOOD SPECIMENOrdering Facility: [facility] Address: [address] [place] [address] Performed By: #### 5 7021-8 ####[facility] LABCLIA [id number] [place] [id number] [place] Platelets (Bld) [#/Vol] 474 10*3/uL High 150-[address] [facility] Comment on above: Order Comment: Speci men Type: BLOOD SPECIMENOrdering Facility: [facility] Address: [address] [place] [address] Performed By: #### 5 7021-8 ####[facility] LABCLIA [id number] [place] [address] [place] RBC (Bld) [#/Vol] 4.46 10*6/uL Normal 3.90-5.20 [facility] Comment on above: Order Comment: Speci men Type: BLOOD SPECIMENOrdering Facility: [facility] Address: [address] [place] [address] Performed By: #### 5 7021-8 ####[facility] LABCLIA [id number] [place] [address] [place] WBC (Bld) [#/Vol] 14.19 10*3/uL High 3.70-11.00 [facility] Comment on above: Order Comment: Speci men Type: BLOOD SPECIMENOrdering Facility: [facility] Address: [address] [place] [address] Performed By: #### 5 7021-8 ####[facility] LABCLIA [id number] [place] [address] [place] CNCNPATEDon 09-01-2024 CNCNPATED Normal [facility] CNOVon 09-01-2024 CNOV [address] [facility] CTA CHEST (GATED) W IVCONon 09-01-2024 CTA CHEST (GATED) W IVCON Normal [facility] Comprehensive metabolic 2000 panelon 09-01-2024 Albumin [Mass/Vol] 4.1 g/dL Normal 3.9-4.9 [facility] Comment on above: Order Comment: Speci men Type: BLOOD SPECIMENOrdering Facility: [facility] Address: [address] [place] [address] Performed By: #### 2 532-0, 20910-8 ####[facility] LABCLIA [id number] [place] [address] [place] ALP [Catalytic activity/Vol] 120 U/L Normal 34-[address] [facility] Comment on above: Order Comment: Speci men Type: BLOOD SPECIMENOrdering Facility: [facility] Address: [address] [place] [address] [place] [address] Performed By: #### 2 532-0, ####[facility] LABCLIA [id number] [facility] [address] [address] [place] ALT [Catalytic activity/Vol] 19 U/L Normal 7-[address] [facility] Comment on above: Order Comment: Speci men Type: BLOOD SPECIMENOrdering Facility: [facility] Address: [address] [place], [place] [address] Performed By: #### 2 532-0, ####[facility] LABCLIA [id number] [facility] [address] [address] [place] Anion gap [Moles/Vol] 13 mmol/L Normal 8-15 [facility] Comment on above: Order Comment: Speci men Type: BLOOD SPECIMENOrdering Facility: [facility] Address: [address] [place] [address] Performed By: #### 2 532-0, ####[facility] LABCLIA [id number] [facility] [address] [address] [place] AST [Catalytic activity/Vol] 15 U/L Normal 13-[address] [facility] Comment on above: Order Comment: Speci men Type: BLOOD SPECIMENOrdering Facility: [facility] Address: [address] [place], [place] [id number] Performed By: #### 2 532-0, ####[facility] LABCLIA [id number] [facility] [address] [place] [address] [place] Bilirubin [Mass/Vol] 0.3 mg/dL Normal 0.2-1.3 [facility] Comment on above: Order Comment: Speci men Type: BLOOD SPECIMENOrdering Facility: [facility] Address: [address] [place], [place] [address] Performed By: #### 2 532-0, 85036-6 ####[facility] LABCLIA [id number] [address] [address] [place] Calcium [Mass/Vol] 9.1 mg/dL Normal 8.5-10.2 [place] [facility] Comment on above: Order Comment: Speci men Type: BLOOD SPECIMENOrdering Facility: [facility] Address: [address] [place] [address] Performed By: #### 2 532-0, 85914-9 ####[facility] LABCLIA [id number] [place] [id number] [place] Chloride [Moles/Vol] 100 mmol/L Normal 98-107 [facility] Comment on above: Order Comment: Speci men Type: BLOOD SPECIMENOrdering Facility: [facility] Address: [address] [place] [address] Performed By: #### 2 532-0, 59622-4 ####[facility] LABCLIA [id number] [place] [id number] [place] CO2 [Moles/Vol] 25 mmol/L Normal 22-[address] [facility] Comment on above: Order Comment: Speci men Type: BLOOD SPECIMENOrdering Facility: [facility] Address: [address] [place] [address] Performed By: #### 2 532-0, 77367-9 ####[facility] LABCLIA [id number] [place] [id number] [place] Creatinine [Mass/Vol] 0.61 mg/dL Normal 0.58-0.96 [facility] Comment on above: Order Comment: Speci men Type: BLOOD SPECIMENOrdering Facility: [facility] Address: [address] [place] [address] Performed By: #### 2 532-0, 30137-9 ####[facility] LABCLIA [id number] [facility] [place] [id number] [place] Creatinine and Glomerular filtration rate.predicted panel (S/P/Bld) 111 mL/min/1.73m??? Normal >=[address] [facility] Comment on above: Order Comment: Ulises walsh Type: BLOOD SPECIMENOrdering Facility: [facility] Address: [address] [place] [address] Result Comment: Tsering mated Glomerular Filtration Rate [...] actual GFR. Performed By: #### 2 532-0, 07562-8 ####[facility] LABIA [id number] [place] [address] [place] Glucose [Mass/Vol] 121 mg/dL High 74-99 [facility] Comment on above: Order Comment: Ulises walsh Type: BLOOD SPECIMENOrdering Facility: [facility] Address: [address] [place] [address] Result Comment: The [place] [employer] Association (ADA) provides guidance for cutoff [...] Standards of Medical Care in Diabetes 2016, [place] [employer]. Diabetes Care. 2016.39(Suppl 1). Performed By: #### 2 532-0, 21179-7 ####[facility] LABIA [id number] [place] [id number] [place] Potassium [Moles/Vol] 4.1 mmol/L Normal 3.7-5.1 [facility] Comment on above: Order Comment: Ulises walsh Type: BLOOD SPECIMENOrdering Facility: [facility] Address: [address] [place], [place] [address] Performed By: #### 2 532-0, 04666-1 ####[facility] LABCLIA [id number] [address] [address] [place] Protein [Mass/Vol] 6.6 g/dL Normal 6.3-8.0 [facility] Comment on above: Order Comment: Speci men Type: BLOOD SPECIMENOrdering Facility: [facility] Address: [address] [place] [address] Performed By: #### 2 532-0, 36478-6 ####[facility] LABCLIA [id number] [place] [address] [place] Sodium [Moles/Vol] 138 mmol/L Normal 136-144 [facility] Comment on above: Order Comment: Speci men Type: BLOOD SPECIMENOrdering Facility: [facility] Address: [address] [place] [address] Performed By: #### 2 532-0, 36610-5 ####[facility] LABIA [id number] [place] [address] [place] Urea nitrogen [Mass/Vol] 13 mg/dL Normal 7-[address] [facility] Comment on above: Order Comment: Speci men Type: BLOOD SPECIMENOrdering Facility: [facility] Address: [address] [place] [address] Performed By: #### 2 532-0, 05996-3 ####[facility] LABCLIA [id number] [address] [address] [place] HISTORY PHYSICALon HISTORY PHYSICAL Normal [facility] LDH SerPl-cCncon 09-01-2024 LDH [Catalytic activity/Vol] 257 U/L High 135-[address] [facility] Comment on above: Order Comment: Speci men Type: BLOOD SPECIMENOrdering Facility: [facility] Address: [address] [place] [address] Performed By: #### 2 532-0, 19141-4 ####[facility] LABIA [id number] [address] [place] LPa SerPl-mCncon 09-01-2024 Lipoprotein a [Mass/Vol] 15 mg/dL Normal <[address] [facility] Comment on above: Order Comment: Speci men Type: BLOOD SPECIMENOrdering Facility: [facility] Address: [address] [place] [address] Performed By: #### 1 0835-7 ####[facility] LABIA [id number] [address] LUNG DIFFUSION CAPACITY (MANJINDER O)on 09-01-2024 LUNG DIFFUSION CAPACITY (DLCO) Normal [facility] NURSING PROGon 09-01-2024 NURSING PROG Normal [facility] PT panel Coag (PPP)on 2024 INR Coag (PPP) [Relative time] 1.0 {INR} Normal 0.9-1.[address] [facility] Comment on above: Order Comment: Speci nico Type: BLOOD SPECIMENOrdering Facility: [facility] Address: [address] [place] [address] Result Comment: Annamarie min K Antagonist (VKA) Therapeutic Range: INR 2 to 3 (Target INR of 2.5)Note: For patients treated with VKA drugs, such as warfarin, the [place] [employer] 2012 Guideline recommends [...] of 3).Bert GH, et al. Chest 2012, 141:7S-47SNishezekiel RA, et al. JACC 2017, 70: 252-289 Performed By: #### 1 4979-9, 67419-0 ####[facility] LABCLIA [id number] [place] [address] [place] PT Coag (PPP) [Time] 11.0 s Normal 9.7-13.0 [facility] Comment on above: Order Comment: Speci men Type: BLOOD SPECIMENOrdering Facility: [facility] Address: [address] [place] [address] Performed By: #### 1 4979-9, 19460-6 ####[facility] LABCLIA [id number] [place] [address] [place] SPIROMETRY BASELINE ONLYon 0 09-01-2024 SPIROMETRY BASELINE ONLY Normal [facility] STAPHYLOCOCCUS AUREUS AND MR SA SCREEN, PCR, NASALon 09-01-2024 S. aureus and MRSA panel KADY+probe (Nose) Not detected Normal Not Detected [facility] Comment on above: Order Comment: Speci men Type: SWABOrdering Facility: [facility] Address: [address] [place] [address] Performed By: #### S APCR ####[facility] LABIA [id number] [address] [place] TYPE AND SCREEN,30 DAYon ABO A Normal [facility] Comment on above: Order Comment: Speci men Type: BLOOD SPECIMENOrdering Facility: [facility] Address: [address] [place] [address] Performed By: #### T SCR30 ####[facility]ANKCLIA [id number] [place] [address] [place] Rh Nom (Bld) Positive Normal [facility] Comment on above: Order Comment: Speci men Type: BLOOD SPECIMENOrdering Facility: [facility] Address: [address] [place] [address] Performed By: #### T SCR30 ####[facility] [id number] [address] [address] [place] URINALYSIS, DIPSTICK ONLYon 09-01-2024 Bilirubin Ql (U) Negative Normal Negative [facility] Comment on above: Order Comment: Speci men Type: URINE SPECIMENOrdering Facility: [facility] Address: [address] [place] [address] Performed By: #### U A ####[facility] LABIA [id number] [place] [id number] [place] Clarity (Unsp spec) Cloudy Abnormal Clear [facility] Comment on above: Order Comment: Speci men Type: URINE SPECIMENOrdering Facility: [facility] Address: [address] [place] [address] Performed By: #### U A ####[facility] LABIA [id number] [place] [address] [place] Color (U) Yellow Normal Yellow [facility] Comment on above: Order Comment: Speci men Type: URINE SPECIMENOrdering Facility: [facility] Address: [address] [place] [address] Performed By: #### U A ####[facility] LABIA [id number] [place] [address] [place] Glucose Test strip (U) [Mass/Vol] Negative Normal Negative [facility] Comment on above: Order Comment: Speci men Type: URINE SPECIMENOrdering Facility: [facility] Address: [address] [place] [address] Performed By: #### U A ####[facility] LABIA [id number] [place] [id number] [place] Hemoglobin Ql (U) Negative Normal Negative [facility] Comment on above: Order Comment: Speci men Type: URINE SPECIMENOrdering Facility: [facility] Address: [address] [place] [address] Performed By: #### U A ####[facility] LABCLIA [id number] [place] [id number] [place] Ketones Ql (U) Negative Normal Negative [facility] Comment on above: Order Comment: Speci men Type: URINE SPECIMENOrdering Facility: [facility] Address: [address] [place] [address] Performed By: #### U A ####[facility] LABCLIA [id number] [address] [place] Leukocyte esterase Test strip Ql (U) Trace Abnormal Negative [facility] Comment on above: Order Comment: Speci men Type: URINE SPECIMENOrdering Facility: [facility] Address: [address] [place] [address] Performed By: #### U A ####[facility] LABCLIA [id number] [place] [address] [place] Nitrite Ql (U) Negative Normal Negative [facility] Comment on above: Order Comment: Speci men Type: URINE SPECIMENOrdering Facility: [facility] Address: [address] [place] [address] Performed By: #### U A ####[facility] LABCLIA [id number] [address] [place] pH (U) 6.5 [pH] Normal <8.[address] [facility] Comment on above: Order Comment: Speci men Type: URINE SPECIMENOrdering Facility: [facility] Address: [address] [place] [address] Performed By: #### U A ####[facility] LABCLIA [id number] [place] [address] [place] Protein (U) [Mass/Vol] Trace Abnormal Negative [facility] Comment on above: Order Comment: Speci men Type: URINE SPECIMENOrdering Facility: [facility] Address: [address] [place] [address] Performed By: #### U A ####[facility] [id number] [place] [id number] [place] Specific gravity (U) [Rel density] 1.022 Normal 1.005-1.[address] [facility] Comment on above: Order Comment: Speci men Type: URINE SPECIMENOrdering Facility: [facility] Address: [address] [place] [address] Performed By: #### U A ####[facility] [id number] [place] [id number] [place] Urobilinogen Ql (U) 1.0 EU/dL Normal 0.2-1.0 EU/dL [facility] Comment on above: Order Comment: Speci men Type: URINE SPECIMENOrdering Facility: [facility] Address: [address] [place] [address] Performed By: #### U A ####[facility] [id number] [place] [id number] [place] aPTT PPPon 09-01-2024 aPTT Coag (PPP) [Time] 29.6 s Normal 23.0-32.4 [facility] Comment on above: Order Comment: Speci men Type: BLOOD SPECIMENOrdering Facility: [facility] Address: [address] [place] [address] Performed By: #### 1 4979-9, 01864-6 ####[facility] [id number] [place] [id number] [place] CTA ABD/PEL W IVCONon 2024 CTA ABD/PEL W IVCON * * *Final Report* * * DATE OF EXAM: Aug 13 2024 9:09AM [facility] 0311 - CTA ABD/PEL W IVCON / [...] AORTIC DIMENSIONS: AORTIC ROOT: 3.3 cm measured usstq-em-[id number] mid ASCENDING THORACIC AORTA: 4.3 cm mid DESCENDING THORACIC AORTA: 2 cm limited upperABDOMEN Unremarkable BONES and SOFT TISSUES: unremarkable, within limitations of the current study Twister Hand (topogram) images: No additional findings. IMPRESSION: Bicuspid aortic valve with severe calcification and significant appearing stenosis. Dilated mid ascending aorta measuring 4.3 cm. No acute aortic pathology. Plant Attendant: PEYMAN Transcribe Date/Time: Aug 13 2024 10:28A Dictated by : BERENICE LOBATO MD This examination was interpreted and the report reviewed and electronically signed by: BERENICE LOBATO MD on Aug 13 2024 1:23PM EST [id number] Normal [facility] CTA CHEST (GATED) WO/W IVCON on 08-13-2024 CTA CHEST (GATED) WO/W IVCON * * *Final Report* * * DATE OF EXAM: Aug 13 2024 9:09AM [facility] 0126 - CTA CHEST (GATED) WO/W IVCON [...] AORTIC DIMENSIONS: AORTIC ROOT: 3.3 cm measured ddmav-bb-jpbkb mid ASCENDING THORACIC AORTA: 4.3 cm mid DESCENDING THORACIC AORTA: 2 cm limited upperABDOMEN Unremarkable BONES and SOFT TISSUES: unremarkable, within limitations of the current study Twister Hand (topogram) images: No additional findings. IMPRESSION: Bicuspid aortic valve with severe calcification and significant appearing stenosis. Dilated mid ascending aorta measuring 4.3 cm. No acute aortic pathology. Plant Attendant: PSCB Transcribe Date/Time: Aug 13 2024 10:28A Dictated by : BERENICE LOBATO MD This examination was interpreted and the report reviewed and electronically signed by: BERENICE LOBATO MD on Aug 13 2024 1:23PM EST [id number] Normal [facility] CARD CATH DIAGNOSTICon 08-08 CARD CATH DIAGNOSTIC Site Id: [facility] Lab #: DEFAULT Study Date: 08/08/2024 Start Time: End Time: Name Duty Monique Ca MD PROC MD 1 Camron Palencia RT PROC SCRUB 1 Yuridia Dumas RN PROC CIRC 1 Johnna Mancia RN PROC RECORD 1 + + PATIENT INFORMATION + + Name: [facility] : 1975 Age: 49 years Gender: [...] Cath 08/08/2024 12:00:00 AM CORONARY ANGIOGRAPHY W-O [facility] *MEDICAL HISTORY* CAD Presentation: Symptoms Unlikely to [...] Speci men Type: BLOOD SPECIMEN [facility] Address: [address] [place] [address] Performed By: #### 3 040-3, 16773-1, 91157-5 #### [facility] CLIA [id number] [address] STATES OF [facility] HISTORY PHYSICALon HISTORY PHYSICAL HNO ID: [id number] Author: MONIQUE CA MD Service: Cardiovascular Surgery [...] DATE: August 08, 2024 TIME: 8:43 AM Normal [facility] CNPNon 07-30-2024 CNPN Normal [facility] CNPNon 07-28-2024 CNPN Normal [facility] CNOVon 07-25-2024 CNOV Office Visit (AGINES ACOSTA) -------- PAUL DAVENPORT ([id number]) 1975 F Date Time Provider Department 07/25/24 2:00 PM VASQUEZ BRUSH During your visit today, we recorded the following information about you: Temperature Pulse Blood pressure Weight 98.1 degrees 80/minute 126/74 126.6 kg Height 1.626 m Vasquez Brush APRN.HEAVY DUTY MECHANIC 08/18/2024 5:59 PM Signed Subjective The patient consented to the use of ambient AppsFlyer software for draft documentation of the visit consistent with [facility]?s Notice of Privacy Practices. HPI Paul Davenport is a 49-year-old female with a history of severe aortic stenosis, presenting for follow-up after leaving the hospital AMA on 07/19/2024. Paul was seen at [facility] on 07/19/2024 for worsening fluid retention, groin and RUQ abdominal pain, chest tightness, and dyspnea. Labs revealed an elevated BNP of 3.44 and leukocytosis of 16.7. CMP was within normal limits, troponins were negative, and a chest x-ray was normal. CT abdomen and pelvis showed probable colitis. She received IV ceftriaxone and IV Flagyl but left [facility] before admission for CHF and colitis. She [...] for a cardiac catheterization on 08/08/[address] Ca. She expresses frustration about a [...] EXTREMITY LOWER performed by GEOFF FLOOD at [facility] 09/2000 bicuspid AV, (more content not included)... Normal [facility] CNOVon 07-23-2024 CNOV Office Visit (EDSON PAULINOB) -------- PAUL DAVENPORT ([id number]) 1975 F Date Time Provider Department 07/23/24 1:40 PM MONIQUE CA During your visit today, we recorded the following information about you: Pulse Respiration Blood pressure Weight 76/minute 18/minute 128/88 124.7 kg Height 1.626 m Monique Ca MD 07/23/2024 6:19 PM Signed Monique Ca MD Interventional Cardiology [address] [place], [place] [id number] Chief Complaint Patient presents with: Cardiology Follow [...] ALLIED HEALTHon 07-19-2024 ALLIED HEALTH HNO ID: [id number] Author: ANETTE COPELAND Tech Service: ? Author [...] PATIENT PRESENTS WITH AN IMPLANTABLE OR ATTACHED BELLMAN CAPTAIN: No ALLERGIES: Reviewed and unchanged CONTRAST ALLERGY: [...] PERIPHERAL IV DATA: Inpatient - refer to LDA documentation RADIOLOGY DEPARTMENT: CT; Exam(s) Completed: Abdomen/Pelvis SIGNATURE: Yadira Brooks PATIENT NAME: Paul Davenport DATE: July 19, 2024 TIME: 1:03 PM Normal [facility] CBC W Auto Differential pane l (Bld)on 07-19-2024 Basophils (Bld) [#/Vol] 0.05 10*3/uL Normal <0.11 [facility] Comment on above: Order Comment: Speci men Type: BLOOD SPECIMEN [facility] Address: [address] [place] [address] Performed By: #### 3 040-3, 63016-1, 21552-0 #### [facility] CLIA [id number] 1 [place] [address] [place] Basophils/100 WBC (Bld) 0.3 % Normal [facility] Comment on above: Order Comment: Speci men Type: BLOOD SPECIMEN [facility] Address: [address] [place] [address] Performed By: #### 3 040-3, 65325-7, 14118-6 #### [facility] CLIA [id number] [address] [place] [address] [place] Differential cell count method Nom (Bld) Auto Normal [facility] Comment on above: Order Comment: Speci men Type: BLOOD SPECIMEN [facility] Address: [address] [place] [address] Performed By: #### 3 040-3, 23777-8, 23549-0 #### [facility] CLIA [id number] [address] [place] Eosinophils (Bld) [#/Vol] 0.24 10*3/uL Normal <0.46 [facility] Comment on above: Order Comment: Speci men Type: BLOOD SPECIMEN [facility] Address: [address] [place] [address] Performed By: #### 3 040-3, 85341-5, 86238-7 #### [facility] CLIA [id number] [address] Eosinophils/100 WBC (Bld) 1.4 % Normal [facility] Comment on above: Order Comment: Speci men Type: BLOOD SPECIMEN [facility] Address: [address] [place] [address] Performed By: #### 3 040-3, 64717-7, 73248-6 #### [facility] CLIA [id number] [address] [place] Erythrocyte distribution width (RBC) [Ratio] 13.6 % Normal 11.5-15.0 [facility] Comment on above: Order Comment: Speci men Type: BLOOD SPECIMEN [facility] Address: [address] [place] [address] Performed By: #### 3 040-3, 55561-1, 56454-6 #### [facility] CLIA [id number] [address] [place] Hematocrit (Bld) [Volume fraction] 41.2 % Normal 36.0-46.0 [facility] Comment on above: Order Comment: Speci men Type: BLOOD SPECIMEN [facility] Address: [address] [place] [address] Performed By: #### 3 040-3, 67154-9, 74274-5 #### [facility] CLIA [id number] [address] [place] Hemoglobin (Bld) [Mass/Vol] 13.2 g/dL Normal 11.5-15.5 [facility] Comment on above: Order Comment: Speci men Type: BLOOD SPECIMEN [facility] Address: [address] [place] [address] Performed By: #### 3 040-3, 29568-9, 29411-7 #### [facility] CLIA [id number] [address] [place] Immature granulocytes (Bld) [#/Vol] 0.13 10*3/uL High <0.10 [facility] Comment on above: Order Comment: Speci men Type: BLOOD SPECIMEN [facility] Address: [address] [place] [address] Performed By: #### 3 040-3, 78093-4, 88807-6 #### [facility] CLIA [id number] [address] [place] Immature granulocytes/100 WBC (Bld) 0.8 % Normal [facility] Comment on above: Order Comment: Speci men Type: BLOOD SPECIMEN [facility] Address: [address] [place] [address] Performed By: #### 3 040-3, 02729-5, 39153-4 #### [facility] CLIA [id number] [address] [place] Lymphocytes (Bld) [#/Vol] 2.04 10*3/uL Normal 1.00-4.00 [facility] Comment on above: Order Comment: Speci men Type: BLOOD SPECIMEN [facility] Address: [address] [place] [address] Performed By: #### 3 040-3, 95567-0, 37016-7 #### [facility] CLIA [id number] [address] Lymphocytes/100 WBC (Bld) 12.2 % Normal [facility] Comment on above: Order Comment: Speci men Type: BLOOD SPECIMEN [facility] Address: [address] [place] [address] Performed By: #### 3 040-3, 10373-2, 41502-2 #### [facility] CLIA [id number] [address] MCH (RBC) [Entitic mass] 29.6 pg Normal 26.0-34.0 [facility] Comment on above: Order Comment: Speci men Type: BLOOD SPECIMEN [facility] Address: [address] [place] [address] Performed By: #### 3 040-3, 23636-1, 60225-3 #### [facility] CLIA [id number] [address] MCHC (RBC) [Mass/Vol] 32.0 g/dL Normal 30.5-36.0 [facility] Comment on above: Order Comment: Speci men Type: BLOOD SPECIMEN [facility] Address: [address] [place] [address] Performed By: #### 3 040-3, 88969-1, 09088-2 #### [facility] CLIA [id number] [address] MCV (RBC) [Entitic vol] 92.4 fL Normal 80.0-100.0 [facility] Comment on above: Order Comment: Speci men Type: BLOOD SPECIMEN [facility] Address: [address] [place] [address] Performed By: #### 3 040-3, 44074-4, 35207-9 #### [facility] CLIA [id number] [address] Monocytes (Bld) [#/Vol] 0.86 10*3/uL Normal <0.87 [facility] Comment on above: Order Comment: Speci men Type: BLOOD SPECIMEN [facility] Address: [address] [place] [address] Performed By: #### 3 040-3, 15051-0, 23215-8 #### [facility] CLIA [id number] [address] Monocytes/100 WBC (Bld) 5.1 % Normal [facility] Comment on above: Order Comment: Speci men Type: BLOOD SPECIMEN [facility] Address: [address] [place] [address] Performed By: #### 3 040-3, 51753-6, 88872-2 #### [facility] CLIA [id number] [address] [place] Neutrophils (Bld) [#/Vol] 13.39 10*3/uL High 1.45-7.50 [facility] Comment on above: Order Comment: Speci men Type: BLOOD SPECIMEN [facility] Address: [address] [place] [address] Performed By: #### 3 040-3, 45847-2, 50571-4 #### [facility] CLIA [id number] [address] OF [facility] Neutrophils/100 WBC (Bld) 80.2 % Normal [facility] Comment on above: Order Comment: Speci men Type: BLOOD SPECIMEN [facility] Address: [address] [place] [address] Performed By: #### 3 040-3, 02146-4, 63563-8 #### [facility] CLIA [id number] [address] [place] Nucleated RBC (Bld) [#/Vol] 10*3/uL Normal <0.01 [facility] Comment on above: Order Comment: Speci men Type: BLOOD SPECIMEN Ordering Facility: [facility] Address: [address] [place] [address] Performed By: #### 3 040-3, 46054-2, 94829-8 #### [facility] CLIA [id number] [address] [place] Nucleated RBC/100 WBC (Bld) [Ratio] 0.0 /100 WBC Normal [facility] Comment on above: Order Comment: Speci men Type: BLOOD SPECIMEN Ordering Facility: [facility] Address: [address] [place] [address] Performed By: #### 3 040-3, 25112-5, 04172-3 #### [facility] CLIA [id number] [address] OF [place] Platelet mean volume (Bld) [Entitic vol] 9.3 fL Normal 9.0-12.7 [facility] Comment on above: Order Comment: Speci men Type: BLOOD SPECIMEN Ordering Facility: [facility] Address: [address] [place] [address] Performed By: #### 3 040-3, 37502-7, 04328-6 #### [facility] CLIA [id number] [address] Platelets (Bld) [#/Vol] 474 10*3/uL High 150-400 [facility] Comment on above: Order Comment: Speci men Type: BLOOD SPECIMEN Ordering Facility: [facility] Address: [address] [place] [address] Performed By: #### 3 040-3, 50018-9, 47530-8 #### [facility] CLIA [id number] [address] [place] RBC (Bld) [#/Vol] 4.46 10*6/uL Normal 3.90-5.20 [facility] Comment on above: Order Comment: Speci men Type: BLOOD SPECIMEN Ordering Facility: [facility] Address: [address] [place] [address] Performed By: #### 3 040-3, 85251-9, 18962-5 #### [facility] CLIA [id number] [address] OF [place] WBC (Bld) [#/Vol] 16.71 10*3/uL High 3.70-11.00 [facility] Comment on above: Order Comment: Speci men Type: BLOOD SPECIMEN Ordering Facility: [facility] Address: [facility] [place] [address] Performed By: #### 3 040-3, 85104-6, 59655-9 #### [facility] CLIA [id number] [address] [place] [id number] [facility] CNDSon 07-19-2024 CNDS HNO ID: [id number] Author: JOSÉ LUIS VALLADARES DO Service: Hospital [...] AND MEDICAL TEAM: My Main Hospital Doctor: No att. providers found Primary Care Provider: Vasquez Brush APRN.CNP My Medical Team Members: Treatment Team: Primary Service: Admit/Consults, Justice Klein MY CONDITION AT DISCHARGE: REASON I WAS [...] to Provider Information: Treatment Team: Primary Service: Admit/Consults, Ak Latoya Transitions of Care Critical Issues: LABS AND PROCEDURES PENDING AT DISCHARGE: No pending results. FOLLOW-UP APPOINTMENTS ALREADY SCHEDULED WITH A [facility] PROVIDER: Future Appointments Date Time Provider Department Center 07/23/2024 1:40 PM Monique Ca MD [facility] [place] [facility] 07/25/2024 2:00 PM Vasquez Brush APRN.[facility] [address] ALLERGIES Allergen Reactions Dust extreme [...] DATE OF EXAM: Jul 19 2024 1:05PM [facility] 0530 - CT ABD/PEL W IVCON / [...] at hepatic flexure, which likely represent colitis. Plant Attendant: PSCHardeep Transcribe Date/Time: Jul 19 2024 1:14P Dictated [...] Speci men Type: BLOOD SPECIMEN Ordering Facility[facility] Address: [address] [place] [address] Performed By: #### 3 040-3, 58943-4, 93393-2 #### [facility] CLIA [id number] [address] STATES OF [facility] ALP [Catalytic activity/Vol] 122 U/L Normal 34-123 [facility] Comment on above: Order Comment: Speci men Type: BLOOD SPECIMEN Ordering Facility: [facility] Address: [address] [place] [address] Performed By: #### 3 040-3, 25328-9, 10306-0 #### [facility] CLIA [id number] [address] [place] ALT With P-5'-P [Catalytic activity/Vol] 21 U/L Normal 7-38 [facility] Comment on above: Order Comment: Speci men Type: BLOOD SPECIMEN Ordering Facility: [facility] Address: [address] [place] [address] Performed By: #### 3 040-3, 64421-0, 62255-1 #### [facility] CLIA [id number] 1 [place] [address] [place] Anion gap [Moles/Vol] 10 mmol/L Normal 8-15 [facility] Comment on above: Order Comment: Speci men Type: BLOOD SPECIMEN Ordering Facility: [facility] Address: [address] [place] [address] Performed By: #### 3 040-3, 86603-3, 94536-9 #### [facility] CLIA [id number] [address] [place] AST With P-5'-P [Catalytic activity/Vol] 17 U/L Normal 13-35 [facility] Comment on above: Order Comment: Speci men Type: BLOOD SPECIMEN Ordering Facility: [facility] Address: [address] [place] [address] Performed By: #### 3 040-3, 04647-3, 25137-2 #### [facility] CLIA [id number] [address] [place] Bilirubin [Mass/Vol] 0.3 mg/dL Normal 0.2-1.3 [facility] Comment on above: Order Comment: Speci men Type: BLOOD SPECIMEN Ordering Facility: [facility] Address: [address] [place] [address] Performed By: #### 3 040-3, 39174-1, 33874-5 #### [facility] CLIA [id number] [address] [place] Calcium [Mass/Vol] 8.6 mg/dL Normal 8.5-10.2 [facility] Comment on above: Order Comment: Speci men Type: BLOOD SPECIMEN Ordering Facility: [facility] Address: [address] [place] [address] Performed By: #### 3 040-3, 89410-2, 80246-4 #### [facility] CLIA [id number] [address] [place] Chloride [Moles/Vol] 101 mmol/L Normal 98-107 [facility] Comment on above: Order Comment: Speci men Type: BLOOD SPECIMEN Ordering Facility: [facility] Address: [address] [place] [address] Performed By: #### 3 040-3, 68368-5, 03448-5 #### [facility] CLIA [id number] [address] CO2 [Moles/Vol] 25 mmol/L Normal 22-30 [facility] Comment on above: Order Comment: Speci men Type: BLOOD SPECIMEN Ordering Facility[facility] Address: [address] [place] [address] Performed By: #### 3 040-3, 66224-7, 05351-0 #### [facility] CLIA [id number] [address] Creatinine [Mass/Vol] 0.68 mg/dL Normal 0.58-0.96 [facility] Comment on above: Order Comment: Speci men Type: BLOOD SPECIMEN Ordering Facility: [facility] Address: [address] [place] [address] Performed By: #### 3 040-3, 92246-8, 86609-0 #### [facility] CLIA [id number] [address] Creatinine and Glomerular filtration rate.predicted panel (S/P/Bld) 108 mL/min/1.73m??? Normal >=60 [facility] Comment on above: Order Comment: Speci men Type: BLOOD SPECIMEN Ordering Facility: [facility] Address: [address] [place] [address] Result Comment: Tsering mated Glomerular Filtration Rate [...] accurately reflect actual GFR. Performed By: #### 3 040-3, 30729-2, 95796-0 #### [facility] CLIA [id number] 1 [place] [address] [place] Glucose [Mass/Vol] 131 mg/dL High 74-99 [facility] Comment on above: Order Comment: Speci men Type: BLOOD SPECIMEN Ordering Facility: [facility] Address: [address] [place] [address] Result Comment: The [place] Diabetes Association (ADA) provides guidance for cutoff [...] Standards of Medical Care in Diabetes 2016, [place] [employer] Association. Diabetes Care. 2016.39(Suppl 1). Performed By: #### 3 040-3, 38212-9, 24768-0 #### [facility] CLIA [id number] 1 [place] [address] [place] Potassium [Moles/Vol] 3.9 mmol/L Normal 3.7-5.1 [facility] Comment on above: Order Comment: Ulises walsh Type: BLOOD SPECIMEN Ordering Facility: [facility] Address: [address] [place] [address] Performed By: #### 3 040-3, 88161-4, 07091-5 #### [facility] CLIA [id number] 1 [place] [address] [place] Protein [Mass/Vol] 6.7 g/dL Normal 6.3-8.0 [facility] Comment on above: Order Comment: Ulises men Type: BLOOD SPECIMEN Ordering Facility: [facility] Address: [address] [place] [address] Performed By: #### 3 040-3, 86024-0, 98546-9 #### [facility] CLIA [id number] 1 [place] [address] [place] Sodium [Moles/Vol] 136 mmol/L Normal 136-144 [facility] Comment on above: Order Comment: Speci men Type: BLOOD SPECIMEN Ordering Facility: [facility] Address: [address] [address] Performed By: #### 3 040-3, 63444-4, 09591-0 #### [facility] CLIA [id number] [address] STATES OF [facility] Urea nitrogen [Mass/Vol] 9 mg/dL Normal 7-21 [facility] Comment on above: Order Comment: Speci men Type: BLOOD SPECIMEN Ordering Facility: [facility] Address: [address] [place] [address] Performed By: #### 3 040-3, 60054-9, 16745-0 #### [facility] CLIA [id number] [address] OF [facility] ECG COMPLETEon 07-19-2024 ECG COMPLETE Ventricular Rate : 7 7 BPM Atrial Rate : 77 BPM P-R Interval : 154 ms QRS Duration : 86 ms Q-T Interval : 394 ms QTC Calculation(Bazett) : 445 ms Calculated P [place] : 5 degrees Calculated R [place] : 17 degrees Calculated T [place] : 86 degrees NORMAL SINUS RHYTHM NORMAL ECG WHEN COMPARED WITH ECG OF 15-Mar-2022 18:35, NO SIGNIFICANT CHANGE WAS FOUND Confirmed by MD GUTIERREZ CAROL ([id number]) on 07/19/2024 6:53:19 PM NAME : PAUL DAVENPORT PID : [id number] : 1975 Gender : Female Race : ORD : [id number] Procedure Date : Jul 19 2024 09:17:23 Edit Date : Jul 19 2024 18:53:23 Diagnosis: NORMAL SINUS RHYTHM NORMAL ECG WHEN COMPARED WITH ECG OF 15-Mar-2022 18:35, NO SIGNIFICANT CHANGE WAS FOUND Confirmed by MD GUTIERREZ CAROL ([id number]) on 07/19/2024 6:53:19 PM Test Reason : Chest Pain Location : 4 : [facility] EM Overread By : MD GUTIERREZ CAROL Edited By : MD GUTIERREZ CAROL Referred By : , Acquired by : FERTIG,ALISEN [facility] ED NOTEon 05-31-2025 ED NOTE HNO ID: [id number] Author: HAIDER ABDI RN Service: Emergency Medicine Author Type: Registered Nurse Type: ED Notes Filed: 07/19/2024 18:50 Note Text: Patient requests IV to be removed as her ride is here. Aware she has a room in the hospital but patient insists on leaving now. Unwilling to wait for physician to discuss AMA with her. [facility] ED NOTE HNO ID: [id number] Author: HAIDER ABDI RN Service: Emergency Medicine Author Type: Registered Nurse Type: ED Notes Filed: 07/19/2024 18:51 Note Text: Patient at [facility] nursing station requesting discharge. [facility] ED NOTE HNO ID: [id number] Author: HAIDER ABDI RN Service: Emergency Medicine Author Type: Registered Nurse Type: ED Notes Filed: 07/19/2024 18:39 Note Text: Dr. Valladares notified of patient's request to leave. Patient will be leaving AMA. [facility] ED NOTE HNO ID: [id number] Author: HAIDER ABDI RN Service: Emergency Medicine Author Type: Registered Nurse Type: ED Notes Filed: 07/19/2024 18:38 Note Text: Offered patient Ativan as she seems anxious. Patient declined and insists on discharge. Admitting team paged. [facility] ED NOTE HNO ID: [id number] Author: HAIDER ABDI RN Service: Emergency Medicine Author Type: Registered Nurse Type: ED Notes Filed: 07/19/2024 18:37 Note Text: Patient sitting at bedside, asks Is it too late to leave? Informed patient she has a room on 4100. Patient insists on leaving AMA. . [facility] ED NOTE HNO ID: [id number] Author: HAIDER ABDI RN Service: Emergency Medicine Author Type: Registered Nurse Type: ED Notes Filed: 07/19/2024 18:34 Note Text: Dinner tray given to patient. [facility] ED NOTE HNO ID: [id number] Author: HAIDER ABDI RN Service: Emergency Medicine Author Type: Registered Nurse Type: ED Notes Filed: 07/19/2024 17:08 Note Text: Patient complains of chest tightness and feeling like she isn't emptying her bladder. Dr. Pratt aware and repeat EKG ordered. Normal [facility] ED NOTE HNO ID: [id number] Author: HAIDER ABDI, NORBERTO Service: Emergency Medicine Author Type: Registered Nurse Type: ED Notes Filed: 07/19/2024 12:15 Note Text: CT notified patient ready with xray after Normal [facility] ED NOTE HNO ID: [id number] Author: MALINI LEYVA, NORBERTO Service: ? Author Type: Registered Nurse Type: ED Notes Filed: 07/19/2024 12:02 Note Text: Bed: 37-ED Expected date: Expected time: Means of arrival: Comments: Squad 13 [facility] ED PROV NOTEon 07-19-2024 ED PROV NOTE HNO ID: [id number] Author: REGINO GUTIERREZ MD Service: [facility] HNO ID: [id number] Author: FAUSTINO MORIN MD Service: Emergency Medicine Author Type: Physician Type: ED Provider Notes Filed: 07/20/2024 09:09 Note Text: ED Provider Note Patient Name: Paul Davenport : 1975 SERVICE DATE: 07/19/24 History Patient presents with: Edema: Patient c/o retaining fluid everywhere. Patient states was at [place] ED twice and was sent home on [...] QTC Calculation(Bazett) : 467 ms Calculated P [place] : 48 degrees Calculated R [place] : 39 degrees Calculated T [place] : -24 degrees NORMAL SINUS RHYTHM INFERIOR INFARCT , AGE UNDETERMINED ABNORMAL ECG WHEN COMPARED WITH ECG OF 19-Jul-2024 09:17, INFERIOR INFARCT IS NOW PRESENT T WAVE INVERSION NOW EVIDENT IN INFERIOR LEADS Confirmed by MD GUTIERREZ CAROL ([id number]) on 07/19/2024 6:53:42 PM NAME : PAUL DAVENPORT PID : [id number] : 1975 Gender : Female Race : ORD : Procedure Date : Jul 19 2024 16:38:11 Edit Date : Jul 19 2024 18:53:46 Diagnosis: NORMAL SINUS RHYTHM INFERIOR INFARCT , AGE UNDETERMINED ABNORMAL ECG WHEN COMPARED WITH ECG OF 19-Jul-2024 09:17, INFERIOR INFARCT IS NOW PRESENT T WAVE INVERSION NOW EVIDENT IN INFERIOR LEADS Confirmed by MD GUTIERREZ CAROL ([id number]) on 07/19/2024 6:53:42 PM Test Reason : Location : 4 : [place] [facility] Overread By : MD GUTIERREZ CAROL Edited By : MD GUTIERREZ CAROL Referred By : , Acquired by : MARIO GUADARRAMA [facility] HIGH SENSITIVITY TROPONIN To n 07-19-2024 Troponin T.cardiac High sensitivity method [Mass/Vol] 10 ng/L Normal <12 [facility] Comment on above: Order Comment: Speci men Type: BLOOD SPECIMEN [facility] Address: [address] [place] [address] Performed By: #### H STNT #### [facility] CLIA [id number] [address] [place] [address] STATES OF [facility] HIGH SENSITIVITY TROPONIN T (INITIAL)on 07-19-2024 Troponin T.cardiac High sensitivity method [Mass/Vol] 9 ng/L Normal <12 [facility] Comment on above: Order Comment: Speci men Type: BLOOD SPECIMEN Order[facility] Address: [address] [place] [address] Performed By: #### 3 040-3, 22725-2, 22045-2 #### [facility] CLIA [id number] [address] [place] HIGH SENSITIVITY TROPONIN T (SECOND)on 07-19-2024 Troponin T.cardiac High sensitivity method [Mass/Vol] 9 ng/L Normal <12 [facility] Comment on above: Order Comment: Speci men Type: BLOOD SPECIMEN Ordering Facility: [facility] Address: [address], [place] [address] Performed By: #### 3 040-3, 37379-7, 47274-9 #### [facility] CLIA [id number] 1 [place] [address] [place] HISTORY PHYSICALon HISTORY PHYSICAL HNO ID: [id number] Author: JOSÉ LUIS VALLADARES DO Service: Hospital Medicine Author Type: Physician Type: H&P Filed: 07/19/2024 16:25 Note Text: DEPARTMENT OF HOSPITAL MEDICINE HISTORY AND PHYSICAL EXAM SERVICE DATE: 07/19/2024 SERVICE TIME: 3:40 PM Primary Care Physician: Vasquez Brush APRN.[facility] NIGHT AND WEEKEND COVERAGE: [place] COVERAGE: After 7pm, please call cross cover pager #[phone] Subjective CHIEF COMPLAINT: retaining fluid for past [...] if she has an episode of diarrhea. ALAMO and orthopnea. No blood in stool or [...] 25 Lipase [Catalytic activity/Vol] 16 U/L Normal [facility] Comment on above: Order Comment: Ulises walsh Type: BLOOD SPECIMEN Ordering [facility] Address: [address] [place] [address] Performed By: #### 3 040-3, 04369-1, 79191-5 #### [facility] CLIA [id number] [address] [place] NT-proBNP [facility] 07-19 Natriuretic peptide.B prohormone N-Terminal [Mass/Vol] 344 pg/mL High <125 [facility] Comment on above: Order Comment: Ulises walsh Type: BLOOD SPECIMEN [facility] Address: [address] [place] [address] Performed By: #### 3 040-3, 19079-8, 64322-2 #### [facility] CLIA [id number] [address] [place] XR CHEST 2V FRONTAL/LATon XR CHEST 2V FRONTAL/LAT * * *Final Report* * * DATE OF EXAM: Jul 19 2024 1:05PM AKSatnam 5291 - XR CHEST 2V FRONTAL/LAT / [...] tissues: Unremarkable. IMPRESSION: No acute radiographic abnormality. Plant Attendant: PSCB Transcribe Date/Time: Jul 19 2024 1:27P Dictated by : KEITH HOWARD MD This examination was interpreted and the report reviewed and electronically signed by: KEITH HOWARD MD on Jul 19 2024 1:27PM EST [id number] Normal [facility] 07-15-2024 [facility] Telephone (AGFAMPLE) -------- PAUL DAVENPORT ([id number]) 1975 F Date Time Provider Department 07/15/24 VASQUEZ BRUSH During your visit today, we recorded the following information about you: Rosemary Arteaga MA 07/15/2024 7:53 AM Signed Please resend lasix to pharmacy with diagnosis attached for pharmacy to cover the meds. Thank you. JENIFER Hanson Kristin C, AYAAN.[facility] 07/15/2024 5:41 PM Signed New Rx sent Vasquez Brush APRN.[employer] 07/15/2024 5:41 PM Signed Addended by: VASQUEZ BRUSH on: 07/15/2024 05:41 PM Modules accepted: Orders Rosemary Arteaga MA 07/16/2024 7:33 AM Signed Received fax that lasix will be approved with furosemide . Please send with dx. Thanks. JENIFER Hanson Kristin C, APRN.[facility] 07/18/2024 1:13 PM Signed Insurance will not approve name brand Lasmakayla Vasquez Brush APRN.[place] Rosemary Arteaga MA 07/18/2024 1:22 PM Signed Lm on pt. Vm to call back to see if she wants to pay out of pocket or us to send generic. JENIFER Hanson Mary, MA 07/18/2024 3:18 PM Signed My chart message sent. Rosemary Arteaga MA Allergies As of Date: 07/15/2024 Noted Allergy Reaction DUST 01/27/2009 Comments: extreme coughing, dry hives METFORMIN 04/09/2023 14 - Other: See Comments Date Reviewed: 07/12/2024 Reviewed by: Vasquez Brush APRN.[employer] - Fully Assessed Reason for Visit: Medication [...] not included)... Normal [facility] Telephone (BELIAFAMPLE) -------- PAUL DAVENPORT ([id number]) 1975 F Date Time Provider Department 07/10/24 [...] twice and she cannot wait until her body builder appointment. Would like a different water pill [...] that helps DO Paula Dueñas Kimberly C, 07/10/2024 3:10 PM Signed Addended by: CRYSTAL [...] days total. She will be seeing the body builder on 07/23, but advised her to call [...] 07-08-2024 Echocardiography Echocardiography Rep ort: Transthoracic Echo [facility] Date of service: 07/08/2024 9:13:09 AM Ordering physician: VASQUEZ BRUSH Indication: Re-evaluation of known valvular heart disease with change in clinical status Technologist: Stephanie Mackenzie RD Nurse: Pb THORNTON Interpreting physician: Ruel Melton [...] with the prior echocardiographic exam performed on 12/2023 - The prior study reported nml EF, AO 4.4cm, AV pk/mn 50/34mmHg, DI .41. Aortic stenosis has preogressed. * * * Final * * * [employer] Image : [id number] (more content not included)... Normal [facility] 07-02-2024 [facility] Telephone ([employer] ) -------- PAUL DAVENPORT ([id number]) 1975 F Date Time Provider Department 07/02/24 MONIQUE CA [employer] During your visit today, we recorded the following information about you: Teresita Henao RN 07/02/2024 11:33 AM Signed Paul [...] the ED for evaluation of chest tightness 7-09/28 and swelling, and states they didn't do [...] doses and frequency. Reviewed. Currently taking prednisone. Teresita Henao RN Allergies As of Date: 07/02/2024 [...] 12 Lead EKGon 06-30-2024 12 Lead EKG [facility] [address] [place] [address] 12 Lead EKG 06/30/24 0839 MR#: [id number] Acct: [id number] Name: PAUL DAVENPORT Rep #: [id number] : 1975 49 From: Raffi Cotrez MD Attending Dr: Dr. Jorge Monique DO [...] found Confirmed by RAFFI CORTEZ MD ([id number]), food editor AYDEE LARIOS ([id number]) on 07/08/2024 9:45:21 AM Referred By: ES Confirmed By: RAFFI CORTEZ MD 07/08/24 0945 Date Raffi Cortez MD CC: MELANIA Brush; Dr. Jorge Monique, DO Signed Normal [facility] Basic Metabolic Profile (BMP )on 06-30-2024 BUN/CRE 33.0 RATIO High 10-20 [facility] Comment on above: Performed By: #### L 501.4021, L503.7505, L500.2500, L100.0100 #### [facility] [address] [place], [address] Calcium [Mass/Vol] 8.3 mg/dL Normal 7.6-11.0 [facility] Comment on above: Performed By: #### L 501.4021, L503.7505, L500.2500, L100.0100 #### [facility] [address] [place], [address] Chloride [Moles/Vol] 102 mmol/L Normal 98-108 [facility] Comment on above: Performed By: #### L 501.4021, L503.7505, L500.2500, L100.0100 #### [facility] [address] [place], [address] CO2 [Moles/Vol] 21.4 mmol/L Normal 21.0-32.0 [facility] Comment on above: Performed By: #### L 501.4021, L503.7505, L500.2500, L100.0100 #### [facility] [address] [place], [address] Creatinine [Mass/Vol] 0.70 mg/dL Normal 0.70-1.20 [facility] Comment on above: Performed By: #### L 501.4021, L503.7505, L500.2500, L100.0100 #### [facility] [address] [place], [address] ECRCL 133.73 ml/min Normal 50-250 [facility] Comment on above: Performed By: #### L 501.4021, L503.7505, L500.2500, L100.0100 #### [facility] [address] [place], [address] GAP 13 Normal 5-15 [facility] Comment on above: Performed By: #### L 501.4021, L503.7505, L500.2500, L100.0100 #### [facility] [address] [place], [address] GFR/1.73 sq M.predicted among non-blacks MDRD (S/P/Bld) [Vol rate/Area] 107 mL/min/{1.73_m2} Normal >60 [facility] Comment on above: Result Comment: mL/m in/1.73m2 CKD-EPI Creatinine Equation (2020) Performed By: #### L 501.4021, L503.7505, L500.2500, L100.0100 #### [facility] [address] [place], [address] Glucose [Mass/Vol] 67 mg/dL Low 70-99 [facility] Comment on above: Performed By: #### L 501.4021, L503.7505, L500.2500, L100.0100 #### [facility] [address] [place], [address] Potassium [Moles/Vol] 4.3 mmol/L Normal 3.3-5.1 [facility] Comment on above: Result Comment: Hemo lysis present, Results??could be affected. ?? Performed By: #### L 501.4021, L503.7505, L500.2500, L100.0100 #### [facility] [address] [place], [address] Sodium [Moles/Vol] 136 mmol/L Normal 133-145 [facility] Comment on above: Performed By: #### L 501.4021, L503.7505, L500.2500, L100.0100 #### [facility] [address] [place], [address] Urea nitrogen [Mass/Vol] 23 mg/dL High 4-19 [facility] Comment on above: Performed By: #### L 501.4021, L503.7505, L500.2500, L100.0100 #### [facility] [address] [place], [address] CBC W/Diff, Automatedon 06-19 Absolute Lymph 3.41 X10 3/uL Normal 0.83-4.51 [facility] Comment on above: Performed By: #### L 501.4021, L503.7505, L500.2500, L100.0100 #### [facility] [address] [place], [address] Absolute Neut 12.0 X10 3/uL High 2.0-7.7 [facility] Comment on above: Performed By: #### L 501.4021, L503.7505, L500.2500, L100.0100 #### [facility] [address] [place], [address] Basophils/100 WBC (Bld) 0.4 % Normal 0-1 [facility] Comment on above: Performed By: #### L 501.4021, L503.7505, L500.2500, L100.0100 #### [facility] [address] [place], [address] Eosinophils/100 WBC (Bld) 0.9 % Normal 0-5 [facility] Comment on above: Performed By: #### L 501.4021, L503.7505, L500.2500, L100.0100 #### [facility] [address] [place], [address] Erythrocyte distribution width (RBC) [Ratio] 13.9 % Normal 11.6-14.6 [facility] Comment on above: Performed By: #### L 501.4021, L503.7505, L500.2500, L100.0100 #### [facility] [address] [place], [address] Hematocrit (Bld) [Volume fraction] 38.8 % Normal 37-47 [facility] Comment on above: Performed By: #### L 501.4021, L503.7505, L500.2500, L100.0100 #### [facility] [address] [place], [address] Hemoglobin (Bld) [Mass/Vol] 12.8 g/dL Normal 12.0-15.0 [facility] Comment on above: Performed By: #### L 501.4021, L503.7505, L500.2500, L100.0100 #### [facility] [address] [place], [address] IG% 1.900 High 0.0-0.9 [facility] Comment on above: Result Comment: IG% - Immature Granulocytes (promyelocytes, myelocytes and metamyelocytes) > 1% indicates that a LEFT SHIFT is Present. Performed By: #### L 501.4021, L503.7505, L500.2500, L100.0100 #### [facility] [address] [place], [address] Lymphocytes/100 WBC (Bld) 20.1 % Normal 19-41 [facility] Comment on above: Performed By: #### L 501.4021, L503.7505, L500.2500, L100.0100 #### [facility] [address] [place], [address] MCH (RBC) [Entitic mass] 30.3 pg Normal 27.0-32.0 [facility] Comment on above: Performed By: #### L 501.4021, L503.7505, L500.2500, L100.0100 #### [facility] [address] [place], [address] MCHC (RBC) [Mass/Vol] 33.0 g/dL Normal 32-36 [facility] Comment on above: Performed By: #### L 501.4021, L503.7505, L500.2500, L100.0100 #### [facility] [address] [place], [address] MCV (RBC) [Entitic vol] 91.9 fL Normal 81-99 [facility] Comment on above: Performed By: #### L 501.4021, L503.7505, L500.2500, L100.0100 #### [facility] [address] [place], [address] Monocytes/100 WBC (Bld) 5.8 % Normal 0-10 [facility] Comment on above: Performed By: #### L 501.4021, L503.7505, L500.2500, L100.0100 #### [facility] [address] [place], [address] Neutrophils/100 WBC (Bld) 70.9 % High 47-70 [facility] Comment on above: Performed By: #### L 501.4021, L503.7505, L500.2500, L100.0100 #### [facility] [address] [place], [address] Nucleated RBC (Bld) [#/Vol] 0 10*3/uL Normal 0-5 [facility] Comment on above: Performed By: #### L 501.4021, L503.7505, L500.2500, L100.0100 #### [facility] [address] [place], [address] Platelet mean volume (Bld) [Entitic vol] 10.1 fL Normal 6.2-12.0 [facility] Comment on above: Performed By: #### L 501.4021, L503.7505, L500.2500, L100.0100 #### [facility] [address] [place], [address] Platelets (Bld) [#/Vol] 459 10*3/uL High 150-450 [facility] Comment on above: Performed By: #### L 501.4021, L503.7505, L500.2500, L100.0100 #### [facility] [address] [place], [address] RBC (Bld) [#/Vol] 4.22 10*6/uL Normal 4.2-5.4 [facility] Comment on above: Performed By: #### L 501.4021, L503.7505, L500.2500, L100.0100 #### [facility] [address] [place], [address] RDW SD 46.4 fl High 35.1-43.9 [facility] Comment on above: Performed By: #### L 501.4021, L503.7505, L500.2500, L100.0100 #### [facility] [address] [place], [address] WBC (Bld) [#/Vol] 17.0 10*3/uL High 4.4-11.0 [facility] Comment on above: Performed By: #### L 501.4021, L503.7505, L500.2500, L100.0100 #### [facility] [address] [place], [address] Emergency Department Summary on 06-30-2024 Emergency Department Summary [facility] Medical Records Department [address] [place] [address] Emergency Department Summary 06/30/24 MR#: [id number] Acct: [id number] Name: PAUL DAVENPORT Rep #: [id number] : 1975 49 From: Jorge Monique DO PCP: MELAINA Whatley Status:DEP ER Location: ED HPI History [...] or OCP + Smoking + >/=35 PFSH PFSH Medical History (Updated 06/30/24 @ 12:39 by [...] Oral Pulse (more content not included)... Normal [facility] L499.0042on 06-30-2024 Trop T High Sen 8 ng/L Normal <=14 [facility] Comment on above: Performed By: #### L 499.0042 #### [facility] [address] [place], [address] L499.0043on 06-30-2024 Trop T High Sen Normal <=14 [facility] Comment on above: Result Comment: Canc elled via OM: Order cancelled - Patient discharged Performed By: #### L 499.0043 #### [facility] [address] [place], [address] L501.4021on 06-30-2024 Trop T High Sen 7 ng/L Normal <=14 [facility] Comment on above: Result Comment: Hemo lysis present, Results??could be affected. ?? Performed By: #### L 501.4021, L503.7505, L500.2500, L100.0100 #### [facility] [address] [place], [address] L503.7505on 06-30-2024 Natriuretic peptide B (Bld) [Mass/Vol] 402 pg/mL Normal <=450 [facility] Comment on above: Result Comment: Hear t Failure Unlikely: < 300 pg/mL Heart Failure Likely < 50 Years: > 450 pg/mL 50-75 Years: > 900 pg/mL >75 Years: > 1800 pg/mL Performed By: #### L 501.4021, L503.7505, L500.2500, L100.0100 #### [facility] [address] [place], [address] CNOVon 06-27-2024 CNOV Office Visit (AGFAMP LE) -------- PAUL DAVENPORT ([id number]) 1975 F Date Time Provider Department 06/27/24 5:20 PM VASQUEZ BRUSH During your visit today, we recorded the following information about you: Pulse Blood pressure Weight Height 97/minute 110/74 126.1 kg 1.626 m Vasquez Brush, AYAAN.HEAV[employer] ME[employer]IC 07/12/2024 10:37 PM Signed Subjective The patient consented to the use of Box software for draft documentation of the visit consistent with [facility]?s Notice of Privacy Practices. HPI Paul [...] bony abnormality. IMPRESSION: No acute radiographic abnormality. Plant Attendant: PSCB Transcribe Date/Time: Jun 27 2024 6:06P Dictated by : JAYESH BARROS MD This examination was interpreted and the report reviewed and electronically signed by: JAYESH BARROS MD on Jun 27 2024 6:08PM EST [id number] Normal [facility] CBC panel Auto (Bld)on 06-26 Erythrocyte distribution width (RBC) [Ratio] 13.8 % Normal 11.5-15.[address] [facility] Comment on above: Order Comment: Speci men Type: BLOOD SPECIMENOrdering Facility: [facility] Address: [address] [place] [address] Performed By: #### 5 8410-2 ####[facility] [id number] [place] [address] [place] Hematocrit (Bld) [Volume fraction] 43.4 % Normal 36.0-46.[address] [facility] Comment on above: Order Comment: Speci men Type: BLOOD SPECIMENOrdering Facility: [facility] Address: [address] [place] [address] Performed By: #### 5 8410-2 ####[facility] LABCLIA [id number] [place] [address] [place] Hemoglobin (Bld) [Mass/Vol] 13.9 g/dL Normal 11.5-15.[address] [facility] Comment on above: Order Comment: Speci men Type: BLOOD SPECIMENOrdering Facility: [facility] Address: [address] [place] [address] Performed By: #### 5 8410-2 ####[facility]CLIA [id number] [place] [address] [place] MCH (RBC) [Entitic mass] 29.4 pg Normal 26.0-34.[address] [facility] Comment on above: Order Comment: Speci men Type: BLOOD SPECIMENOrdering Facility: [facility] Address: [address] [place] [address] Performed By: #### 5 8410-2 ####[facility] LABCLIA [id number] [place] [address] [place] MCHC (RBC) [Mass/Vol] 32.0 g/dL Normal 30.5-36.0 [facility] Comment on above: Order Comment: Speci men Type: BLOOD SPECIMENOrdering Facility: [facility] Address: [address] [place] [address] Performed By: #### 5 8410-2 ####[facility] LABCLIA [id number] [place] [address] [place] MCV (RBC) [Entitic vol] 91.8 fL Normal 80.0-100.[address] [facility] Comment on above: Order Comment: Speci men Type: BLOOD SPECIMENOrdering Facility: [facility] Address: [address] [place] [address] Performed By: #### 5 8410-2 ####[facility] LABCLIA [id number] [address] [address] [place] Nucleated RBC (Bld) [#/Vol] 10*3/uL Normal <0.[address] [facility] Comment on above: Order Comment: Speci men Type: BLOOD SPECIMENOrdering Facility: [facility] Address: [address] [place] [address] Performed By: #### 5 8410-2 ####[facility]IA [id number] [place] [address] [place] Platelet mean volume (Bld) [Entitic vol] 10.0 fL Normal 9.0-12.[address] [facility] Comment on above: Order Comment: Speci men Type: BLOOD SPECIMENOrdering Facility: [facility] Address: [address] [place] [address] Performed By: #### 5 8410-2 ####[facility]IA [id number] [place] [address] [place] Platelets (Bld) [#/Vol] 502 10*3/uL High 150-[address] [facility] Comment on above: Order Comment: Speci men Type: BLOOD SPECIMENOrdering Facility: [facility] Address: [address] [place] [address] Performed By: #### 5 8410-2 ####[facility]IA [id number] [place] [address] [place] RBC (Bld) [#/Vol] 4.73 10*6/uL Normal 3.90-5.20 [facility] Comment on above: Order Comment: Speci men Type: BLOOD SPECIMENOrdering Facility: [facility] Address: [address] [place] [address] Performed By: #### 5 8410-2 ####[facility] LABIA [id number] [place] [id number] [place] WBC (Bld) [#/Vol] 19.90 10*3/uL High 3.70-11.00 [facility] Comment on above: Order Comment: Speci men Type: BLOOD SPECIMENOrdering Facility: [facility] Address: [address] [place] [address] Performed By: #### 5 8410-2 ####[facility] LABCLIA [id number] [place] [id number] [place] Comprehensive metabolic 2000 panelon 06-26-2024 Albumin [Mass/Vol] 4.1 g/dL Normal 3.9-4.9 [facility] Comment on above: Order Comment: Speci men Type: BLOOD SPECIMENOrdering Facility: [facility] Address: [address] [place] [address] Performed By: #### 2 4323-8, 29916-2, 3016-3 ####[facility] LABCLIA [id number] [place] [id number] [place] ALP [Catalytic activity/Vol] 114 U/L Normal 34-[address] [facility] Comment on above: Order Comment: Speci men Type: BLOOD SPECIMENOrdering Facility: [facility] Address: [address] [place] [address] Performed By: #### 2 4323-8, 83748-8, 3016-3 ####[facility]IA [id number] [place] [id number] [place] ALT [Catalytic activity/Vol] 24 U/L Normal 7-[address] [facility] Comment on above: Order Comment: Speci men Type: BLOOD SPECIMENOrdering Facility: [facility] Address: [address] [place] [address] Performed By: #### 2 4323-8, 59739-8, 3016-3 ####[facility] LABCLIA [id number] [address] [address] [place] Anion gap [Moles/Vol] 12 mmol/L Normal 8-15 [facility] Comment on above: Order Comment: Speci men Type: BLOOD SPECIMENOrdering Facility: [facility] Address: [address] [place] [address] Performed By: #### 2 4323-8, 90814-0, 6-3 ####[facility] LABCLIA [id number] [address] [address] [place] AST [Catalytic activity/Vol] 18 U/L Normal 13-[address] [facility] Comment on above: Order Comment: Speci men Type: BLOOD SPECIMENOrdering Facility: [facility] Address: [address] [place], [place] [address] Performed By: #### 2 4323-8, 09616-4, 3015-3 ####[facility] LABCLIA [id number] [place] [id number] [place] Bilirubin [Mass/Vol] 0.2 mg/dL Normal 0.2-1.3 [facility] Comment on above: Order Comment: Speci men Type: BLOOD SPECIMENOrdering Facility: [facility] Address: [address] [place], [place] [address] Performed By: #### 2 4323-8, 61933-7, 3015-3 ####[facility] LABCLIA [id number] [address] [address] [place] Calcium [Mass/Vol] 9.4 mg/dL Normal 8.5-10.2 [facility] Comment on above: Order Comment: Speci men Type: BLOOD SPECIMENOrdering Facility: [facility] Address: [address] [place], [place] [address] Performed By: #### 2 4323-8, 07276-0, 3016-3 ####[facility] LABCLIA [id number] [facility] [address] [address] [place] Chloride [Moles/Vol] 99 mmol/L Normal 98-107 [facility] Comment on above: Order Comment: Speci men Type: BLOOD SPECIMENOrdering Facility: [facility] Address: [address] [place] [address] Performed By: #### 2 4323-8, 20216-6, 3016-3 ####[facility] [id number] [place] [id number] [place] CO2 [Moles/Vol] 28 mmol/L Normal 22-[address] [facility] Comment on above: Order Comment: Speci men Type: BLOOD SPECIMENOrdering Facility: [facility] Address: [address] [place] [address] Performed By: #### 2 4323-8, 03673-6, 3015-3 ####[facility]UN[facility] [id number] [place] [address] [place] Creatinine [Mass/Vol] 0.70 mg/dL Normal 0.58-0.96 [facility] Comment on above: Order Comment: Speci men Type: BLOOD SPECIMENOrdering Facility: [facility] Address: [address] [place] [address] Performed By: #### 2 4323-8, 30826-3, 3 ####[facility] [id number] [place] [address] [place] Creatinine and Glomerular filtration rate.predicted panel (S/P/Bld) 108 mL/min/1.73m??? Normal >=[address] [facility] Comment on above: Order Comment: Speci men Type: BLOOD SPECIMENOrdering Facility: [facility] Address: [address] [place] [address] Result Comment: Tsering mated Glomerular Filtration Rate [...] actual GFR. Performed By: #### 2 4323-8, 87076-8, 3016-3 ####[facility] LABCLIA [id number] [address] [address] [place] Glucose [Mass/Vol] 96 mg/dL Normal 74-99 [facility] Comment on above: Order Comment: Speci men Type: BLOOD SPECIMENOrdering Facility: [facility] Address: [address] [place] [address] Result Comment: The [place] [employer] Association (ADA) provides guidance for cutoff [...] Standards of Medical Care in Diabetes 2016, [place] [employer]. Diabetes Care. 2016.39(Suppl 1). Performed By: #### 2 4323-8, 99860-4, 6-3 ####[facility] LABIA [id number] [address] [address] [place] Potassium [Moles/Vol] 4.5 mmol/L Normal 3.7-5.1 [facility] Comment on above: Order Comment: Speci men Type: BLOOD SPECIMENOrdering Facility: [facility] Address: [address] [place] [address] Performed By: #### 2 4323-8, 57100-8, 3016-3 ####[facility] LABIA [id number] [address] [address] [place] Protein [Mass/Vol] 7.1 g/dL Normal 6.3-8.0 [facility] Comment on above: Order Comment: Speci men Type: BLOOD SPECIMENOrdering Facility: [facility] Address: [address] [place], [place] [address] Performed By: #### 2 4323-8, 55155-4, 3016-3 ####[facility] LABIA [id number] [address] [address] [place] Sodium [Moles/Vol] 139 mmol/L Normal 136-144 [facility] Comment on above: Order Comment: Speci men Type: BLOOD SPECIMENOrdering Facility: [facility] Address: [address] [place] [address] Performed By: #### 2 4323-8, 25030-8, 3016-3 ####[facility] [id number] [place] [id number] [place] Urea nitrogen [Mass/Vol] 23 mg/dL High 7-[address] [facility] Comment on above: Order Comment: Speci men Type: BLOOD SPECIMENOrdering Facility: [facility] Address: [address] [place] [address] Performed By: #### 2 4323-8, 91871-2, 3016-3 ####[facility] [id number] [place] [id number] [place] [facility] Natriuretic peptide.B prohormone N-Terminal [Mass/Vol] 274 pg/mL High <[address] [facility] Comment on above: Order Comment: Speci men Type: BLOOD SPECIMENOrdering Facility: [facility] Address: [address] [place] [address] Performed By: #### 2 4323-8, 41358-8, 3016-3 ####[facility] [id number] [place] [id number] [place] TSH SerPl-aCncon 06-26-2024 TSH Qn 2.450 m[IU]/L Normal 0.270-4.[address] [facility] Comment on above: Order Comment: Speci men Type: BLOOD SPECIMENOrdering Facility: [facility] Address: [address] [place] [address] Result Comment: If t he patient is , TSH reference range varies by gestational period:First Trimester (weeks 9-12): 0.180-2.990 mIU/LSecond Trimester: 0.110-3.980 mIU/LThird Trimester: 0.480-4.710 mIU/Michelle Hooper et al. A Practical Approach for the Verifications and Determination of Site- and Trimester-Specific Reference Intervals for Thyroid Function tests in . Thyroid, 2019:29:3:412-420. Man E, et al. 2017 Guidelines of the [place] Thy[employer] Association for the Diagnosis and Management of Thyroid Disease during and the . Thyroid, 2017:27:3:315-389. Performed By: #### 2 4323-8, 45484-5, 3016-3 ####[facility] LABCLIA [id number] [place] [address] [place] Urinalysis complete panel (U )on 06-26-2024 Bacteria LM.HPF (Urine sed) [#/Area] Negative Normal Negative [facility] Comment on above: Order Comment: Speci men Type: URINE SPECIMENOrdering Facility: [facility] Address: [address] [place] [address] Performed By: #### 2 4356-8 ####[facility] LABCLIA [id number] [place] [id number] [place] Bilirubin Ql (U) Negative Normal Negative [facility] Comment on above: Order Comment: Speci men Type: URINE SPECIMENOrdering Facility: [facility] Address: [address] [place] [address] Performed By: #### 2 4356-8 ####[facility] LABCLIA [id number] [place] [id number] [place] Clarity (Unsp spec) Clear Normal Clear [facility] Comment on above: Order Comment: Speci men Type: URINE SPECIMENOrdering Facility: [facility] Address: [address] [place] [address] Performed By: #### 2 4356-8 ####[facility] LABCLIA [id number] [address], [place] [address] [place] Color (U) Yellow Normal Yellow [facility] Comment on above: Order Comment: Speci men Type: URINE SPECIMENOrdering Facility: [facility] Address: [address] [place] [address] Performed By: #### 2 4356-8 ####[facility] LABCLIA [id number] [place] [address] [place] Epithelial cells LM.HPF (Urine sed) [#/Area] Moderate Normal [facility] Comment on above: Order Comment: Speci men Type: URINE SPECIMENOrdering Facility: [facility] Address: [address] [place] [address] Performed By: #### 2 4356-8 ####[facility] LABIA [id number] [address] [place] Glucose Test strip (U) [Mass/Vol] Negative Normal Negative [facility] Comment on above: Order Comment: Speci men Type: URINE SPECIMENOrdering Facility: [facility] Address: [address] [place] [address] Performed By: #### 2 4356-8 ####[facility] LABIA [id number] [place] [address] [place] Hemoglobin Ql (U) Negative Normal Negative [facility] Comment on above: Order Comment: Speci men Type: URINE SPECIMENOrdering Facility: [facility] Address: [address] [place] [address] Performed By: #### 2 4356-8 ####[facility] LABCLIA [id number] [place] [address] [place] Hyaline casts (Urine sed) [#/Area] 0 /[LPF] Normal 0 /LPF [facility] Comment on above: Order Comment: Speci men Type: URINE SPECIMENOrdering Facility: [facility] Address: [address] [place] [address] Performed By: #### 2 4356-8 ####[facility] LABCLIA [id number] [facility] [address] [place] [address] [place] Ketones Ql (U) Negative Normal Negative [facility] Comment on above: Order Comment: Speci men Type: URINE SPECIMENOrdering Facility: [facility] Address: [address] [place] [address] Performed By: #### 2 4356-8 ####[facility] LABCLIA [id number] [address], [place] [address] [place] Leukocyte esterase Test strip Ql (U) Negative Normal Negative [facility] Comment on above: Order Comment: Speci men Type: URINE SPECIMENOrdering Facility: [facility] Address: [address] [place] [address] Performed By: #### 2 4356-8 ####[facility] LABCLIA [id number] [address], [place] [address] [place] Nitrite Ql (U) Negative Normal Negative [facility] Comment on above: Order Comment: Speci men Type: URINE SPECIMENOrdering Facility: [facility] Address: [address] [place] [address] Performed By: #### 2 4356-8 ####[facility] LABCLIA [id number] [address], [facility] [place] pH (U) 6.5 [pH] Normal <8.[address] [facility] Comment on above: Order Comment: Speci men Type: URINE SPECIMENOrdering Facility: [facility] Address: [address] [place] [address] Performed By: #### 2 4356-8 ####[facility] LABCLIA [id number] [address], [facility] [place] Protein (U) [Mass/Vol] Negative Normal Negative [facility] Comment on above: Order Comment: Speci men Type: URINE SPECIMENOrdering Facility: [facility] Address: [address] [place] [address] Performed By: #### 2 4356-8 ####[facility] LABIA [id number] [place] [address] [place] RBC LM.HPF (Urine sed) [#/Area] 0-2 /HPF Normal 0-2 /HPF [facility] Comment on above: Order Comment: Speci men Type: URINE SPECIMENOrdering Facility: [facility] Address: [address] [place] [address] Performed By: #### 2 4356-8 ####[facility] [id number] [place] [address] [place] Specific gravity (U) [Rel density] 1.021 Normal 1.005-1.[address] [facility] Comment on above: Order Comment: Speci men Type: URINE SPECIMENOrdering Facility: [facility] Address: [address] [place] [address] Performed By: #### 2 4356-8 ####[facility] [id number] [address] [place] Urobilinogen Ql (U) 0.2 EU/dL Normal 0.2-1.0 EU/dL [facility] Comment on above: Order Comment: Speci men Type: URINE SPECIMENOrdering Facility: [facility] Address: [address] [place] [address] Performed By: #### 2 4356-8 ####[facility] [id number] [place] [address] [place] WBC LM.HPF (Urine sed) [#/Area] 0-5 /HPF Normal 0-5 /HPF [facility] Comment on above: Order Comment: Speci men Type: URINE SPECIMENOrdering Facility: [facility] Address: [address] [place] [address] Performed By: #### 2 4356-8 ####[facility] LABCLIA [id number] [facility] [address] [address] [place] 12 Lead EKGon 06-19-2024 12 Lead EKG [facility] Cardiovascular Services [address] [place] [address] 12 Lead EKG 06/19/24 1902 MR#: [id number] Acct: [id number] Name: PAUL DAVENPORT Rep #: [id number] : 1975 49 From: Raffi Cortez MD [...] Normal ECG Confirmed by YOSSI HUTCHINSON, RAFFI ([id number]), food editor ZENIA KEANE ([id number]) on 06/20/2024 8:20:12 AM Referred By: Emil Quan Confirmed By: RAFFI CORTEZ MD 06/20/24 0820 Date Raffi Cortez MD CC: INTERIOR DESIGN ASSISTANT-C Vasquez Brush; Dr. Emil Quan DO Signed Normal [facility] Basic Metabolic Profile (BMP )on 06-19-2024 BUN/CRE 14.2 RATIO Normal 10-20 [facility] Comment on above: Performed By: #### L 499.0042 #### [facility] Laboratory [address] [place], [address] Calcium [Mass/Vol] 8.9 mg/dL Normal 7.6-11.0 [facility] Comment on above: Performed By: #### L 499.0042 #### [facility] Laboratory [address] [place], [address] Chloride [Moles/Vol] 102 mmol/L Normal 98-108 [facility] Comment on above: Performed By: #### L 499.0042 #### [facility] [address] [place], [address] CO2 [Moles/Vol] 21.6 mmol/L Normal 21.0-32.0 [facility] Comment on above: Performed By: #### L 499.0042 #### [facility] [address] [place], [address] Creatinine [Mass/Vol] 1.26 mg/dL High 0.70-1.20 [facility] Comment on above: Performed By: #### L 499.0042 #### [facility] [address] [place], [address] ECRCL 71.28 ml/min Normal 50-250 [facility] Comment on above: Performed By: #### L 499.0042 #### [facility] [address] [place], [address] GAP 12 Normal 5-15 [facility] Comment on above: Performed By: #### L 499.0042 #### [facility] [address] [place], [address] GFR/1.73 sq M.predicted among non-blacks MDRD (S/P/Bld) [Vol rate/Area] 53 mL/min/{1.73_m2} Low >60 [facility] Comment on above: Result Comment: mL/m in/1.73m2 CKD-EPI Creatinine Equation (2020) Performed By: #### L 499.0042 #### [facility] [address] [place], [address] Glucose [Mass/Vol] 111 mg/dL High 70-99 [facility] Comment on above: Performed By: #### L 499.0042 #### [facility] [address] [place], [address] Potassium [Moles/Vol] 5.0 mmol/L Normal 3.3-5.1 [facility] Comment on above: Result Comment: Hemo lysis present, Results??could be affected. ?? Hemolysis present, Results??could be affected. ?? Performed By: #### L 499.0042 #### [facility] [address] [place], [address] Sodium [Moles/Vol] 136 mmol/L Normal 133-145 [facility] Comment on above: Performed By: #### L 499.0042 #### [facility] [address] [place], [address] Urea nitrogen [Mass/Vol] 18 mg/dL Normal 4-19 [facility] Comment on above: Performed By: #### L 499.0042 #### [facility] [address] [place], [address] CBC W/Diff, Automatedon 05-0 1-5 Absolute Lymph 2.81 X10 3/uL Normal 0.83-4.51 [facility] Comment on above: Performed By: #### L 499.0042 #### [facility] [address] [place], [address] Absolute Neut 10.4 X10 3/uL High 2.0-7.7 [facility] Comment on above: Performed By: #### L 499.0042 #### [facility] [address] [place], [address] Basophils/100 WBC (Bld) 0.4 % Normal 0-1 [facility] Comment on above: Performed By: #### L 499.0042 #### [facility] [address] [place], [address] Eosinophils/100 WBC (Bld) 1.2 % Normal 0-5 [facility] Comment on above: Performed By: #### L 499.0042 #### [facility] [address] [place], [address] Erythrocyte distribution width (RBC) [Ratio] 13.5 % Normal 11.6-14.6 [facility] Comment on above: Performed By: #### L 499.0042 #### [facility] [address] [place], [address] Hematocrit (Bld) [Volume fraction] 39.7 % Normal 37-47 [facility] Comment on above: Performed By: #### L 499.0042 #### [facility] [address] [place], [address] Hemoglobin (Bld) [Mass/Vol] 13.3 g/dL Normal 12.0-15.0 [facility] Comment on above: Performed By: #### L 499.0042 #### [facility] [address] [place], [address] IG% 0.700 Normal 0.0-0.9 [facility] Comment on above: Result Comment: IG% - Immature Granulocytes (promyelocytes, myelocytes and metamyelocytes) > 1% indicates that a LEFT SHIFT is Present. Performed By: #### L 499.0042 #### [facility] [address] [place], [address] Lymphocytes/100 WBC (Bld) 19.7 % Normal 19-41 [facility] Comment on above: Performed By: #### L 499.0042 #### [facility] [address] [place], [address] MCH (RBC) [Entitic mass] 30.3 pg Normal 27.0-32.0 [facility] Comment on above: Performed By: #### L 499.0042 #### [facility] [address] [place], [address] MCHC (RBC) [Mass/Vol] 33.5 g/dL Normal 32-36 [facility] Comment on above: Performed By: #### L 499.0042 #### [facility] [address] [place], [address] MCV (RBC) [Entitic vol] 90.4 fL Normal 81-99 [facility] Comment on above: Performed By: #### L 499.0042 #### [facility] [address] [place], [address] Monocytes/100 WBC (Bld) 4.9 % Normal 0-10 [facility] Comment on above: Performed By: #### L 499.0042 #### [facility] [address] [place], [address] Neutrophils/100 WBC (Bld) 73.1 % High 47-70 [facility] Comment on above: Performed By: #### L 499.0042 #### [facility] [address] [place], [address] Nucleated RBC (Bld) [#/Vol] 0 10*3/uL Normal 0-5 [facility] Comment on above: Performed By: #### L 499.0042 #### [facility] [address] [place], [address] Platelet mean volume (Bld) [Entitic vol] 9.7 fL Normal 6.2-12.0 [facility] Comment on above: Performed By: #### L 499.0042 #### [facility] [address] [place], [address] Platelets (Bld) [#/Vol] 487 10*3/uL High 150-450 [facility] Comment on above: Performed By: #### L 499.0042 #### [facility] [address] [place], [address] RBC (Bld) [#/Vol] 4.39 10*6/uL Normal 4.2-5.4 [facility] Comment on above: Performed By: #### L 499.0042 #### [facility] [address] [place], [address] RDW SD 44.5 fl High 35.1-43.9 [facility] Comment on above: Performed By: #### L 499.0042 #### [facility] [address] [place], [address] WBC (Bld) [#/Vol] 14.2 10*3/uL High 4.4-11.0 [facility] Comment on above: Performed By: #### L 499.0042 #### [facility] [address] [place], [address] CNOVon 06-19-2024 CNOV Normal [facility] Chest PA and Lateralon 06-19 Chest PA and Lateral [facility] Imaging Services [address] [place] [address] Chest PA and Lateral MR#: [id number] Acct: [id number] Name: PAUL DAVENPORT Rep #: [id number] : 1975 F 49 From: Yoel garvey MD PCP: Vasquez Brush NP-C Status: [facility] ER Study: Chest PA and Lateral Date of Exam: 06/19/24 Exam# [id number] Ordering Dr: Merle Olson PROCEDURE: CHEST PA [...] Findings suggestive of vascular congestion. Reading [facility] CC: MELANIA Brush; BILLIE Edgar Plant Attendant: Signed Normal [facility] D-Dimer Quantitative (DVT/PE )on 06-19-2024 D-DIMER QUANT 0.40 FEU/ug/m Normal 0.27-0.49 [facility] Comment on above: Result Comment: NORM AL D-Dimer level (<0.50) indicates no DVT or PE. Performed By: #### L 501.4021, L503.7505, L500.2500, L100.0100 #### [facility] Laboratory [address] [place], [address] Emergency Department Summary on 06-19-2024 Emergency Department Summary [facility] Medical Records Department [address] [place] [address] Emergency Department Summary 06/19/24 MR#: [id number] Acct: [id number] Name: PAUL DAVENPORT Rep #: [id number] : 1975 49 From: Merle WISE PCP: [...] Immobilization, Prior DVT or PE or Cancer [facility] Medical History Asthma Hypertension Migraine Bulimia Lesion [...] Blood Pressu (more content not included)... Normal [facility] L499.0042on 06-19-2024 Trop T High Sen 10 ng/L Normal <=14 [facility] Comment on above: Performed By: #### L 501.4021, L503.7505, L500.2500, L100.0100 #### [facility] Laboratory [address] [place], [address] L499.0043on 06-19-2024 Trop T High Sen Normal <=14 [facility] Comment on above: Result Comment: Raji ribera via OM: Ordered Performed By: #### L 499.0042 #### [facility] [address] [place], [address] L501.4021on 06-19-2024 Trop T High Sen 8 ng/L Normal <=14 [facility] Comment on above: Result Comment: Hemo lysis present, Results??could be affected. ?? Hemolysis present, Results??could be affected. ?? Performed By: #### L 499.0042 #### [facility] [address] [place], [address] L503.7505on 06-19-2024 Natriuretic peptide B (Bld) [Mass/Vol] 331 pg/mL Normal <=450 [facility] Comment on above: Result Comment: Hear t Failure Unlikely: < 300 pg/mL Heart Failure Likely < 50 Years: > 450 pg/mL 50-75 Years: > 900 pg/mL >75 Years: > 1800 pg/mL Performed By: #### L 499.0042 #### [facility] [address] [place], [place], [address] [facility] CNP[facility] Telephone (BELIAFAMPLE) -------- PAUL DAVENPORT ([id number]) 1975 F Date Time Provider Department 06/13/24 VASQUEZ BRUSH During your visit today, we recorded the following information about you: Vasquez Brush, CLINICAL NURSE OCCUPATIONAL MEDICINE.HEAVY DUTY MECHANIC 06/13/2024 1:15 PM Signed RN from urology reached out. Patient with worsening depressive symptoms. Difficulty with transportation. She sees a psychiatrist. Referral placed for social work for check in Vasquez Allergies As of Date: 06/13/2024 Noted Allergy Reaction DUST 01/27/2009 Comments: extreme coughing, dry hives METFORMIN 04/09/2023 14 - Other: See Comments Date Reviewed: 04/24/2024 Reviewed by: Radha Hernandez MRI Tech - Fully Assessed Reason for Visit: Orders [681] Primary Visit Diagnosis:Lack of access to transportation [Z59.82] Other Visit Diagnosis:Moderate episode of recurrent major depressive disorder (HCC) [F33.1] Order(s):PRIMARY CARE SOCIAL WORK CONSULT [8206563] Order #: [id number]: 1 Prescriptions as of 06/13/2024 - Pregabalin [...] without sciatic* (more content not included)... Normal [facility] 06-02-2024 [facility] -------- PAUL DAVENPORT ([id number]) 1975 F Date Time Provider Department 04/25/24 [facility] NEAGCLM During your visit today, we recorded the following information about you: Magdalena Thomas 04/25/2024 9:28 AM Signed Referral to Neurosurgery for 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 Magdalena Thomas April 25, 2024 9:28 AM Allergies As of Date: 04/25/2024 Noted Allergy Reaction DUST 01/27/2009 Comments: extreme coughing, dry hives METFORMIN 04/09/2023 14 - Other: See Comments Date Reviewed: 04/24/2024 Reviewed by: Radha Hernandez, split leather department supervisor - Fully Assessed Prescriptions as of 04/25/2024 [...] (FLONASE) 50 mcg/actuation nasal spray Use 1 Pine Apple in each nostril once daily. - methocarbamol [...] IVCONon 04-24 MRA BRAIN WO/W IVCON Normal [facility] Doreen 04-16-2024 [place] Telephone (COREEN) -------- PAUL DAVENPORT ([id number]) 1975 F Date Time Provider Department 04/16/24 [...] Please advise and call patient back Jeanine Gómez Vasquez Campos APRN.[place]ERT[place] 04/17/2024 9:58 AM Signed Thank you! I placed new orders for renal US and EMG, please let patient know Vasquez Brush APRN.Jessica Iverson MA 04/17/2024 1:35 PM Signed Patient is informed Jessica Milian MA Allergies As of Date: 04/16/2024 Noted Allergy Reaction DUST 01/27/2009 Comments: extreme coughing, dry hives METFORMIN 04/09/2023 14 - Other: See Comments Date Reviewed: 02/28/2024 Reviewed by: Katie Valverde APRN.[place] - Fully Assessed Reason for Visit: Patient Question [4120] Primary Visit Diagnosis:Numbness and tingling in both hands [R20.0, R20.2] Other Visit Diagnosis:Cyst of right kidney [N28.1] Order(s):EMG(NEURO/NI) [8153955] Order #: [id number]: 1 FUTURE KIDNEY/BLADDER [[id number]] Order #: [id number] FUTURE Prescriptions as of 04/17/2024 - doxycycline [...] (FLONASE) 50 mcg/actuation nasal spray Use 1 Pine Apple in each nostril once daily. - methocarbamol [...] included)... Normal [facility] Doreen 04-14-2024 [place] Telephone (COREEN) -------- PAUL DAVENPORT ([id number]) 1975 F Date Time Provider Department 04/14/24 VASQUEZ BRUSH During your visit today, we recorded the following information about you: Rosemary Arteaga MA 04/14/2024 10:38 AM Signed Received fax from [employer] requesting form to be signed and docs (ov notes) for cpap . Placed in red folder. JENIFER Hanson Kristin C, APRN.[place]ERTO 04/21/2024 12:24 PM Signed Thank you, form is completed and signed. Vasquez Brush APRN.Rosemary Guardado MA 04/21/2024 1:12 PM Signed Faxed. Placed in scanning. Rosemary Arteaga MA Allergies As of Date: 04/14/2024 Noted Allergy Reaction DUST 01/27/2009 Comments: extreme coughing, dry hives METFORMIN 04/09/2023 14 - Other: See Comments Date Reviewed: 02/28/2024 Reviewed by: Katie Valverde APRN.[place]ERTO - Fully Assessed Reason for Visit: Electronic [...] (FLONASE) 50 mcg/actuation nasal spray Use 1 Pine Apple in each nostril once daily. - methocarbamol [...] IVCONon 025 MRI BRAIN WO IVCON Normal [facility] CBC panel Auto (Bld)on 04-07 Erythrocyte distribution width (RBC) [Ratio] 14.6 % Normal 11.5-15.[address] [facility] Comment on above: Order Comment: Speci men Type: BLOOD SPECIMENOrdering Facility: [facility] Address: [address] [place] [address] Performed By: #### 5 8410-2 ####[facility] LABCLIA [id number] [place] [address] [place] Hematocrit (Bld) [Volume fraction] 41.5 % Normal 36.0-46.[address] [facility] Comment on above: Order Comment: Speci men Type: BLOOD SPECIMENOrdering Facility: [facility] Address: [address] [place] [address] Performed By: #### 5 8410-2 ####[facility] LABCLIA [id number] [place] [address] [place] Hemoglobin (Bld) [Mass/Vol] 13.3 g/dL Normal 11.5-15.[address] [facility] Comment on above: Order Comment: Speci men Type: BLOOD SPECIMENOrdering Facility: [facility] Address: [address] [place] [address] Performed By: #### 5 8410-2 ####[facility] LABCLIA [id number] [place] [address] [place] MCH (RBC) [Entitic mass] 29.5 pg Normal 26.0-34.[address] [facility] Comment on above: Order Comment: Speci men Type: BLOOD SPECIMENOrdering Facility: [facility] Address: [address] [place] [address] Performed By: #### 5 8410-2 ####[facility] LABCLIA [id number] [place] [address] [place] MCHC (RBC) [Mass/Vol] 32.0 g/dL Normal 30.5-36.0 [facility] Comment on above: Order Comment: Speci men Type: BLOOD SPECIMENOrdering Facility: [facility] Address: [address] [place] [address] Performed By: #### 5 8410-2 ####[facility] LABCLIA [id number] [place] [address] [place] MCV (RBC) [Entitic vol] 92.0 fL Normal 80.0-100.[address] [facility] Comment on above: Order Comment: Speci men Type: BLOOD SPECIMENOrdering Facility: [facility] Address: [address] [place] [address] Performed By: #### 5 8410-2 ####[facility]UN[facility] [id number] [place] [address] [place] Nucleated RBC (Bld) [#/Vol] 10*3/uL Normal <0.[address] [facility] Comment on above: Order Comment: Speci men Type: BLOOD SPECIMENOrdering Facility: [facility] Address: [address] [place] [address] Performed By: #### 5 8410-2 ####[facility] [id number] [place] [address] [place] Platelet mean volume (Bld) [Entitic vol] 10.6 fL Normal 9.0-12.[address] [facility] Comment on above: Order Comment: Speci men Type: BLOOD SPECIMENOrdering Facility: [facility] Address: [address] [place] [address] Performed By: #### 5 8410-2 ####[facility] [id number] [place] [address] [place] Platelets (Bld) [#/Vol] 370 10*3/uL Normal 150-[address] [facility] Comment on above: Order Comment: Speci men Type: BLOOD SPECIMENOrdering Facility: [facility] Address: [address] [place] [address] Performed By: #### 5 8410-2 ####[facility] LABIA [id number] [place] [address] [place] RBC (Bld) [#/Vol] 4.51 10*6/uL Normal 3.90-5.20 [facility] Comment on above: Order Comment: Speci men Type: BLOOD SPECIMENOrdering Facility: [facility] Address: [address] [place] [address] Performed By: #### 5 8410-2 ####[facility] LABCLIA [id number] [address] [address] [place] WBC (Bld) [#/Vol] 11.25 10*3/uL High 3.70-11.00 [facility] Comment on above: Order Comment: Speci men Type: BLOOD SPECIMENOrdering Facility: [facility] Address: [address] [place] [address] Performed By: #### 5 8410-2 ####[facility] LABCLIA [id number] [address] [address] [place] Comprehensive metabolic 2000 panelon 04-07-2024 Albumin [Mass/Vol] 3.7 g/dL Low 3.9-4.9 [facility] Comment on above: Order Comment: Speci men Type: BLOOD SPECIMENOrdering Facility: [facility] Address: [address] [place] [address] Performed By: #### 2 4323-8, 6-3 ####[facility]ORY[facility]IA [id number] [place] [address] [place]#### 00866-7 ####[facility]ORYCLIA [id number] [address] STATES OF [facility] LABCLIA [id number] [place] [id number] [place] ALP [Catalytic activity/Vol] 112 U/L Normal 34-[address] [facility] Comment on above: Order Comment: Speci men Type: BLOOD SPECIMENOrdering Facility: [facility] Address: [address] [place] [address] Performed By: #### 2 4323-8, 6-3 ####[facility]ORYCLIA [id number] [place] [address] [place]#### 62359-8 ####[facility]ORATORYCLIA [id number] [place] [address] [place] [facility]AM[facility] [id number] [place] [address] [place] ALT With P-5'-P [Catalytic activity/Vol] 17 U/L Normal 7-[address] [facility] Comment on above: Order Comment: Speci men Type: BLOOD SPECIMENOrdering Facility: [facility] Address: [address] [place] [address] Performed By: #### 2 4323-8, 3016-3 ####[facility]ORATORYCLIA [id number] [place] [address] [place]#### 87050-5 ####[facility]ORATORYCLIA [id number] [place], [place] [address] [place] [address] STATES OF [facility] LABCLIA [id number] [place] [address] [place] Anion gap [Moles/Vol] 11 mmol/L Normal 8-15 [facility] Comment on above: Order Comment: Speci men Type: BLOOD SPECIMENOrdering Facility: [facility] Address: [address] [place] [address] Performed By: #### 2 4323-8, 3016-3 ####[facility]ORATORYCLIA [id number] [place] [address] [place]#### 14672-3 ####[facility]ORATORYCLIA [id number] [place] [address] [place] [facility] LABCLIA [id number] [place] [address] [place] AST With P-5'-P [Catalytic activity/Vol] 19 U/L Normal 13-[address] [facility] Comment on above: Order Comment: Speci men Type: BLOOD SPECIMENOrdering Facility: [facility] Address: [address] [place] [address] Performed By: #### 2 4323-8, 6-3 ####[facility]ORATORYCLIA [id number] [place] [address] [place]#### 06829-7 ####[facility]ATORYCLIA [id number] [place] [address] [place] [facility] LABCLIA [id number] [place] [address] [place] Bilirubin [Mass/Vol] 0.2 mg/dL Normal 0.2-1.3 [facility] Comment on above: Order Comment: Speci men Type: BLOOD SPECIMENOrdering Facility: [facility] Address: [address] [place] [address] Performed By: #### 2 4323-8, 3015-3 ####[facility]ORATORYCLIA [id number] [place] [address] [place]#### 94229-7 ####[facility]ATORYCLIA [id number] [place] [address] [place] [facility] LABCLIA [id number] [place] [address] [place] Calcium [Mass/Vol] 8.9 mg/dL Normal 8.5-10.2 [facility] Comment on above: Order Comment: Speci men Type: BLOOD SPECIMENOrdering Facility: [facility] Address: [address] [place] [address] Performed By: #### 2 4323-8, 6-3 ####[facility]ORATORYCLIA [id number] [place] [address] [place]#### 27398-6 ####[facility]ORATORYCLIA [id number] [place] [address] [place] [facility] LABCLIA [id number] [place] [address] [place] Chloride [Moles/Vol] 103 mmol/L Normal 98-107 [facility] Comment on above: Order Comment: Speci men Type: BLOOD SPECIMENOrdering Facility: [facility] Address: [address] [place] [address] Performed By: #### 2 4323-8, 6-3 ####[facility]ORATORYCLIA [id number] [place] [address] [place]#### 27162-2 ####[facility]ORATORYCLIA [id number] [place] [address] [place] STATES OF [facility] LABCLIA [id number] [place] [address] [place] CO2 [Moles/Vol] 25 mmol/L Normal 22-[address] [facility] Comment on above: Order Comment: Speci men Type: BLOOD SPECIMENOrdering Facility: [facility] Address: [address] [place] [address] Performed By: #### 2 4328, 3015-3 ####[facility]ORATORYCLIA [id number] [place] [address] [place]#### 77993-7 ####[facility]ATORYCLIA [id number] [place], [place] [address] [place] [address] LABCLIA [id number] [place] [address] [place] Creatinine [Mass/Vol] 0.73 mg/dL Normal 0.58-0.96 [facility] Comment on above: Order Comment: Speci men Type: BLOOD SPECIMENOrdering Facility: [facility] Address: [address] [place] [id number] Performed By: #### 2 4323-8, 3015-3 ####[facility]ATORYCLIA [id number] [place] [address] [place]#### 74021-3 ####[facility]ATORYCLIA [id number] [place] [address] [facility] LABCLIA [id number] [place] [address] [place] Creatinine and Glomerular filtration rate.predicted panel (S/P/Bld) 102 mL/min/1.73m??? Normal >=[address] [facility] Comment on above: Order Comment: Ulises walsh Type: BLOOD SPECIMENOrdering Facility: [facility] Address: [address] [place] [address] Result Comment: Tsering mated Glomerular Filtration Rate [...] GFR. Performed By: #### 2 4323-8, 3016-3 ####[facility] LABORATORYCLIA [id number] [address] STATES OF [facility]#### 07434-1 ####[facility] LABORATORYCLIA [id number] [address] LABCLIA [id number] [place] [address] [place] Glucose [Mass/Vol] 70 mg/dL Low 74-99 [facility] Comment on above: Order Comment: Ulises walsh Type: BLOOD SPECIMENOrdering Facility: [facility] Address: [address] [place] [address] Result Comment: The [place] Diabetes Association (ADA) provides guidance for cutoff [...] Standards of Medical Care in Diabetes 2016, [place] Diabetes Association. Diabetes Care. 2016.39(Suppl 1). Performed By: #### 2 4323-8, 6-3 ####[facility]ATORYCLIA [id number] [place] [address] [place]#### 51868-7 ####[facility]ATORYCLIA [id number] [place] [address] [place] [facility] LABCLIA [id number] [place] [address] [place] Potassium [Moles/Vol] 4.9 mmol/L Normal 3.7-5.1 [facility] Comment on above: Order Comment: Speci men Type: BLOOD SPECIMENOrdering Facility: [facility] Address: [address] [place] [address] Performed By: #### 2 4323-8, 3015-3 ####[facility]ATORYCLIA [id number] [place] [address] [place]#### 09352-1 ####[facility]ATORYCLIA [id number] [place], [place] [address] [place] [address] STATES [facility] LABCLIA [id number] [address] [place] Protein [Mass/Vol] 6.8 g/dL Normal 6.3-8.0 [facility] Comment on above: Order Comment: Speci men Type: BLOOD SPECIMENOrdering Facility: [facility] Address: [address] [place] [address] Performed By: #### 2 4323-8, 6-3 ####[facility]ATORYCLIA [id number] [place] [address] [place]#### 11188-3 ####[facility]ATORYCLIA [id number] [place] [address] [place] OF [facility] LABCLIA [id number] [address] [id number] [address] [place] Sodium [Moles/Vol] 139 mmol/L Normal 136-144 [facility] Comment on above: Order Comment: Speci men Type: BLOOD SPECIMENOrdering Facility: [facility] Address: [address] [place] [address] Performed By: #### 2 4323-8, 3016-3 ####[facility]ATORYCLIA [id number] [place] [address] [place]#### 40796-2 ####[facility] LABORATORYCLIA [id number] [place] [address] [place] [facility] LABCLIA [id number] [place] [address] [place] Urea nitrogen [Mass/Vol] 15 mg/dL Normal 7-[address] [facility] Comment on above: Order Comment: Speci men Type: BLOOD SPECIMENOrdering Facility: [facility] Address: [address] [place] [address] Performed By: #### 2 4323-8, 3016-3 ####[facility]ATORYCLIA [id number] [place] [address] [place]#### 02815-0 ####[facility]ATORYCLIA [id number] [place], [place] [address] [place] [address] STATES OF [facility] LABCLIA [id number] [place] [address] [place] HIV 1+2 Ab IA Qlon 5 HIV 1 and 2 Ab IA.rapid Nom (S/P/Bld) Normal [facility] Comment on above: Order Comment: Speci men Type: BLOOD SPECIMENOrdering Facility: [facility] Address: [address] [place] [address] Result Comment: Test not indicated. Performed By: #### 7 3752-8, 82339-3 ####[facility] LABCLIA [id number] [place] [address] [place] HIV 1+2 Ab+HIV1 p24 Ag IA Ql Non-Reactive Normal Nonreactive [facility] Comment on above: Order Comment: Speci men Type: BLOOD SPECIMENOrdering Facility: [facility] Address: [address] [place] [address] Performed By: #### 7 3752-8, 45165-4 ####[facility] LABCLIA [id number] [place] [address] [place] HIV immunoassay testing algorithm interpretation (S/P/Bld) [Interp] Normal [facility] Comment on above: Order Comment: Speci men Type: BLOOD SPECIMENOrdering Facility: [facility] Address: [address] [place] [address] Result Comment: No e vidence of HIV-1 or HIV-2 infection. Should recent infection be suspected, repeat testing may be considered 2-3 weeks after this draw.Placer Rev. Code 3701.243(E): This information has been [...] or diagnoses. Performed By: #### 7 3752-8, 27463-2 ####[facility] LABCLIA [id number] [place] [address] [place] HbA1c (Bld)on 04-07-2024 Average glucose Estimated from glycated hemoglobin (Bld) [Mass/Vol] 131 mg/dL Normal [facility] Comment on above: Order Comment: Speci men Type: BLOOD SPECIMENOrdering Facility: [facility] Address: [address] [place] [address] Result Comment: eAG: (Estimated average glucose) is a calculated value from HgbA1c and is national sales representative of the average blood glucose level in the last 2-3 month period. Performed By: #### 5 5454-3 ####[facility] LABCLIA [id number] [place] [address] [place] HbA1c (Bld) [Mass fraction] 6.2 % High 4.3-5.[address] [facility] Comment on above: Order Comment: Uliess walsh Type: BLOOD SPECIMENOrdering Facility: [facility] Address: [address] [place] [address] Result Comment: Amer [place] Diabetes Association guidelines indicate that patients with HgbA1c in the range 5.7-6.4% are at increased risk for development of diabetes, and intervention by lifestyle modification may be beneficial. HgbA1c greater or equal to 6.5% is considered diagnostic of diabetes. Performed By: #### 5 5454-3 ####[facility] LABCLIA [id number] [address] [place] Lipid 1996 panelon 5 Cholesterol [Mass/Vol] 172 mg/dL Normal <200 [facility] Comment on above: Order Comment: Ulises walsh Type: BLOOD SPECIMENOrdering Facility: [facility] Address: [address] [place] [address] Result Comment: <200 mg/dL, Desirable 200-239 mg/dL, Borderline high>239 mg/dL, High Performed By: #### 2 4323-8, 3016-3 ####[facility]ORATORYCLIA [id number] [place] [address] [place]#### 44018-4 ####[facility]ORATORYCLIA [id number] [address] STATES OF [facility] LABCLIA [id number] [address] [place] Cholesterol in HDL [Mass/Vol] 32 mg/dL Low >[address] [facility] Comment on above: Order Comment: Ulises walsh Type: BLOOD SPECIMENOrdering Facility: [facility] Address: [address] [place] [address] Result Comment: 40-5 9 mg/dL, Acceptable>59 mg/dL, High: Negative risk factor for coronary heart disease<40 mg/dL, Low: Positive risk factor for coronary heart disease Performed By: #### 2 4323-8, 3016-3 ####[facility]ORATORYCLIA [id number] [place], [place] [address] [place] [address] [place]#### 40375-5 ####[facility] LABORATORYCLIA [id number] [place] [address] [place] OF [facility] LABCLIA [id number] [address] OF [facility] Cholesterol in LDL [Mass/Vol] 116 mg/dL High <[address] [facility] Comment on above: Order Comment: Speci men Type: BLOOD SPECIMENOrdering Facility: [facility] Address: [address] [place] [address] Result Comment: <100 mg/dL, Optimal 100-129 mg/dL, Near optimal/above optimal 130-159 mg/dL, Borderline high 160-189 mg/dL, High>189 mg/dL, Very highSecondary prevention optimal LDL Cholesterol levels are recommended to be < 70 mg/dL Performed By: #### 2 4323-8, 3016-3 ####[facility] LABORATORYCLIA [id number] [place], [place] [address] [place] [address] [place]#### 58893-6 ####[facility] LABORATORYCLIA [id number] [place] [address] [place] [facility] LABCLIA [id number] [address] [place] Cholesterol in LDL/Cholesterol in HDL [Mass ratio] 3.63 {ratio} High <2.[address] [facility] Comment on above: Order Comment: Speci men Type: BLOOD SPECIMENOrdering Facility: [facility] Address: [address] [place] [address] Result Comment: Alexander elizalde:1. National Cholesterol Education Program ATP III Guideline At-A-Glance Quick Desk Reference: National Heart, Lung, and Blood Flora. National Institutes of Health. 2001: NIH Publication No. 01-3305.2. An International Atherosclerosis Society position paper: global recommendations for the management of dyslipidemia: executive summary, Atherosclerosis. 2014: 232(2):410-413. Performed By: #### 2 4323-8, 6-3 ####[facility]ATORYCLIA [id number] [place], [place] [address] [place] [address] OF [place]#### 18360-2 ####[facility]ATORYCLIA [id number] [place] [address] [facility] LABCLIA [id number] [address] [place] Cholesterol in VLDL [Mass/Vol] 24 mg/dL Normal <[address] [facility] Comment on above: Order Comment: Speci men Type: BLOOD SPECIMENOrdering Facility: [facility] Address: [address] [place] [address] Performed By: #### 2 4323-8, 3015-3 ####[facility]ORATORYCLIA [id number] [address]#### 75152-9 ####[facility]ATORYCLIA [id number] [address] LABCLIA [id number] [address] STATES [facility] Cholesterol non HDL [Mass/Vol] 140 mg/dL High <[address] [facility] Comment on above: Order Comment: Speci men Type: BLOOD SPECIMENOrdering Facility: [facility] Address: [address] [place] [address] Result Comment: <130 mg/dL, Optimal 130-159 mg/dL, Near optimal/above optimal 160-189 mg/dL, Borderline high 190-219 mg/dL, High>219 mg/dL, Very highSecondary prevention optimal non HDL Cholesterol levels are recommended to be <100 mg/dL Performed By: #### 2 4323-8, 6-3 ####[facility]ORATORYCLIA [id number] [place], [place] [address] [place] [address] [place]#### 78554-7 ####[facility]ORATORYCLIA [id number] [place] [address] [place] STATES OF [facility] LABCLIA [id number] [place] [address] [place] Cholesterol.total/Chol esterol in HDL [Mass ratio] 5.38 {ratio} High <5.[address] [facility] Comment on above: Order Comment: Speci men Type: BLOOD SPECIMENOrdering Facility: [facility] Address: [address] [place] [address] Performed By: #### 2 4323-8, 3016-3 ####[facility]ATORYCLIA [id number] [place] [address] [place]#### 70221-0 ####[facility]ATORYCLIA [id number] [place] [address] [place] [facility] LABCLIA [id number] [place] [address] [place] FASTING TIME 8 hrs Normal [facility] Comment on above: Order Comment: Speci men Type: BLOOD SPECIMENOrdering Facility: [facility] Address: [address] [place] [address] Performed By: #### 2 4323-8, 3016-3 ####[facility]ORATORYCLIA [id number] [place] [address] [place]#### 09348-2 ####[facility]ORYCLIA [id number] [place] [address] [place] [facility] LABCLIA [id number] [place] [address] [place] Triglyceride [Mass/Vol] 119 mg/dL Normal <[address] [facility] Comment on above: Order Comment: Speci men Type: BLOOD SPECIMENOrdering Facility: [facility] Address: [address] [id number] Result Comment: <150 mg/dL, Normal 150-199 mg/dL, Borderline high 200-499 mg/dL, High>499 mg/dL, Very high Performed By: #### 2 4323-8, 3016-3 ####[facility] LABORATORYCLIA [id number] [place] [address] [place]#### 66241-6 ####[facility] LABORATORYCLIA [id number] [place] [address] [place] [facility] LABCLIA [id number] [place] [address] [place] Reagin and Treponema pallidu m IgG and IgM [Interp]on 04-07-2024 T. pallidum IgG+IgM IA Ql (S) Non-Reactive Normal Nonreactive [facility] Comment on above: Order Comment: Speci men Type: BLOOD SPECIMENOrdering Facility: [facility] Address: [address] [place] [address] Performed By: #### 7 3752-8, 59672-1 ####[facility] LABCLIA [id number] [place] [address] [place] Reagin+T pallidum IgG+IgM Se rPl-Impon 04-07-2024 Reagin and Treponema pallidum IgG and IgM [Interp] Cannot exclude recent Treponemal infection if specimen collected within 7-10 days after appearance of suspect lesions or 2-3 weeks after an exposure. Clinical correlation is required. Normal [facility] Comment on above: Order Comment: Speci men Type: BLOOD SPECIMENOrdering Facility: [facility] Address: [address] [place] [address] Performed By: #### 7 3752-8, 32768-4 ####[facility] LABCLIA [id number] [place] [address] [place] TSH SerPl-aCncon 04-07-2024 TSH Qn 2.460 m[IU]/L Normal 0.270-4.[address] [facility] Comment on above: Order Comment: Speci men Type: BLOOD SPECIMENOrdering Facility: [facility] Address: [address] [place] [address] Result Comment: If t he patient is , TSH reference range varies by gestational period:First Trimester (weeks 9-12): 0.180-2.990 mIU/LSecond Trimester: 0.110-3.980 mIU/LThird Trimester: 0.480-4.710 mIU/Michelle Hooper et al. A Practical Approach for the Verifications and Determination of Site- and Trimester-Specific Reference Intervals for Thyroid Function tests in . Thyroid, 2019:29:3:412-420. Man Garvey, et al. 2017 Guidelines of the [place] Thyroid Association for the Diagnosis and Management of Thyroid Disease during and the . Thyroid, 2017:27:3:315-389. Performed By: #### 2 4323-8, 3016-3 ####[facility] LABORATORYCLIA [id number] [address]#### 48343-1 ####[facility] LABORATORYCLIA [id number] [address] LABCLIA [id number] [address] 04-04-2024 [place] Telephone (BELIAFAMPLE) -------- PAUL DAVENPORT ([id number]) 1975 F Date Time Provider Department 04/04/24 VASQUEZ BRUSH During your visit today, we recorded the following information about you: Jessica Milian MA 04/04/2024 10:27 AM Signed Patient states she used to on a water pill PRN she states it was lasix. I tried finding the order to put a refill but I could not find script. JENIFER Murguia Kristin C, APRN.HEAVY DUTY MECHANIC 04/04/2024 5:53 PM Signed Okay lasix sent in. YVETTE Bolivar Kristin C, APRN.[place] 04/04/2024 5:54 PM Signed Addended by: VASQUEZ BRUSH on: 04/04/2024 05:54 PM Modules accepted: Rosemary Wallis MA 04/07/2024 8:46 AM Signed Patient received my chart message. Rosemary JikimberlyJENIFER Allergies As of Date: 04/04/2024 Noted Allergy Reaction DUST 01/27/2009 Comments: extreme coughing, dry hives METFORMIN 04/09/2023 14 - Other: See Comments Date Reviewed: 02/28/2024 Reviewed by: Katie Valverde APRN.CNP - Fully Assessed Reason for Visit: Refill [...] (FLONASE) 50 mcg/actuation nasal spray Use 1 Pine Apple in each nostril once daily. - methocarbamol [...] 04/26/2022 Muscle spas (more content not included)... [facility] CNCOon 02-28-[address] [facility] CNOVon 02-28-2024 CNOV Office Visit (SPAGWO ) -------- PAUL DAVENPORT ([id number]) 1975 F Date Time Provider Department 02/28/24 1:00 PM KATIE VALVERDE During your visit today, we recorded the following information about you: Pulse Respiration Normal [facility] [place]ERTOMonet 02-28-2024 [place] Telephone (SPAG[place]) -------- PAUL DAVENPORT ([id number]) 1975 F Date Time Provider Department 02/28/24 KATIE VALVERDE During your visit today, we recorded the [...] No 8. Does this procedure require a test car driver? Yes If yes, has patient been notified that a test car driver is needed and must be present at check in? yes 9. Were the pre-procedure instructions explained and provided to the patient? Yes 10. Do you have a pacemaker? No 11. Do you have an internal stimulator of any kind? No If yes, please bring the remote with you to your procedure visit. Faustino Faustino Herrera 02/28/2024 2:03 PM Signed MBBs were scheduled, but when she realized another adult had to be with her (even if she used a [id number]) she said she didn't know anyone and that's a stupid policy and she can't bring anyone with her, and she just walked out; so the procedures were canceled. Faustino Nicola Allergies As of Date: 02/28/2024 Noted Allergy Reaction DUST 01/27/2009 Comments: extreme coughing, dry hives METFORMIN 04/09/2023 14 - Other: See Comments Date Reviewed: 02/28/2024 Reviewed by: Katie Valverde APRN.HEAVY DUTY MECHANIC - Fully Assessed Reason for Visit: Injections [...] (FLONASE) 50 mcg/actuation nasal spray Use 1 Pine Apple in each nostril once daily. - propranolol [...] Normal [facility] CNPNon 01-21-2024 [place] Normal [facility] [place] Telephone (COREEN) -------- PAUL DAVENPORT ([id number]) 1975 F Date Time Provider Department 01/21/24 VASQUEZ BRUSH During your visit today, we recorded the following information about you: Jefe Mclean MA 01/21/2024 9:28 AM Signed ----- Message from Vasquez Brush APRN.HEAVY DUTY MECHANIC sent at 01/20/2024 10:13 PM EST ----- [...] (FLONASE) 50 mcg/actuation nasal spray Use 1 Pine Apple in each nostril once daily. - fluticasone-salmeterol [...] [facility] 01-18-2024 CNPN Normal [facility] CNOVon 01-16-2024 CNOV Office Visit (BERNABE ACOSTA) -------- PAUL DAVENPORT ([id number]) 1975 F Date Time Provider Department 01/16/24 11:20 AM VASQUEZ BRUSH During your visit today, we recorded the following information about you: Temperature Pulse Blood pressure Weight 98 degrees 93/minute 128/76 115.2 kg Height 1.616 m Vasquez Brush, CLINICAL NURSE OCCUPATIONAL MEDICINE.[facility] 01/16/2024 11:33 PM Signed Subjective Paul Davenport is a 48 year [...] (FLONASE) 50 mcg/actuation nasal spray Use 1 Pine Apple in each nostril once daily. fluticasone-salmeterol (WIXELA [...] KNEE 4V AP/LAT/OBLS RT Laterality: BILATERAL (accession [id number]), LEFT (accession [id number]), RIGHT (accession [id number]) Number of different views (projections): 1 (accession [id number]), 4 (accession [id number]), 4 (accession [id number]) M: XB_1 COMPARISON: Radiograph 04/26/2022 RESULT: Right [...] Degenerative joint space narrowing bilaterally as detailed.. Plant Attendant: PSCB Transcribe Date/Time: Jan 20 2024 10:55A [...] KNEE 4V AP/LAT/OBLS RT Laterality: BILATERAL (accession [id number]), LEFT (accession [id number]), RIGHT (accession [id number]) Number of different views (projections): 1 (accession [id number]), 4 (accession [id number]), 4 (accession [id number]) M: XB_1 COMPARISON: Radiograph 04/26/2022 RESULT: Right [...] Degenerative joint space narrowing bilaterally as detailed.. Plant Attendant: PEYMAN Transcribe Date/Time: Jan 20 2024 10:55A Dictated by : FER SIU MD This examination was interpreted and the report reviewed and electronically signed by: FER SIU MD on Jan 20 2024 10:58AM EST [id number] Normal [facility] XR KNEE SURVEY 1V AP BILon 1 03-17-2023 XR KNEE SURVEY 1V AP ESTEBAN * [...] KNEE 4V AP/LAT/OBLS RT Laterality: BILATERAL (accession [id number]), LEFT (accession [id number]), RIGHT (accession [id number]) Number of different views (projections): 1 (accession [id number]), 4 (accession [id number]), 4 (accession [id number]) M: XB_1 COMPARISON: Radiograph 04/26/2022 RESULT: Right [...] Degenerative joint space narrowing bilaterally as detailed.. Plant Attendant: PSCB Transcribe Date/Time: Jan 20 2024 10:55A Dictated by : FER SIU MD This examination was interpreted and the report reviewed and electronically signed by: FER SIU MD on Jan 20 2024 10:58AM EST [id number] Normal [facility] 01-14-2024 [facility] Tele[facility] (AGFAMPLE) -------- PAUL DAVENPORT ([id number]) 1975 F Date Time Provider Department 01/14/24 VASQUEZ BRUSH During your visit today, we recorded the following information about you: Rosemary Arteaga MA 01/14/2024 7:27 AM Signed ----- Message from Vasquez Brush APRN.HEAV[employer] MECH[employer]IC sent at 01/13/2024 10:57 PM EST ----- Please notify patient results are normal. Thank you. Vasquez Brush APRN.Rosemary Guardado MA 01/14/2024 7:35 AM Signed Monietenkrissy received a [employer] chart message. Rosemary Klicman, MA Allergies As of Date: 01/14/2024 Noted Allergy Reaction DUST 01/27/2009 Comments: extreme coughing, dry hives METFORMIN 04/09/2023 14 - Other: See Comments Date Reviewed: 01/11/2024 Reviewed by: Yudy Mills APRN.HEAVY DUTY MECHANIC - Fully Assessed Reason for Visit: Results [...] (FLONASE) 50 mcg/actuation nasal spray Use 1 [place] in each nostril once daily. - fluticasone-salmeterol [...] 01-11-2024 Albumin [Mass/Vol] 4.1 g/dL Normal 3.9-4.9 [facility] Comment on above: Order Comment: Speci men Type: BLOOD SPECIMENOrdering Facility: [facility] Address: [address] [place] [address] [place] [address] Performed By: #### 2 4323-8 ####[facility] MILLTOWNCLIA [id number] [place] [address] [place] ALP [Catalytic activity/Vol] 119 U/L Normal 34-[address] [facility] Comment on above: Order Comment: Speci men Type: BLOOD SPECIMENOrdering Facility: [facility] Address: [address] [place] [address] Performed By: #### 2 4323-8 ####[facility] MILLTOWNCLIA [id number] [place] [address] [place] ALT [Catalytic activity/Vol] 17 U/L Normal 7-[address] [facility] Comment on above: Order Comment: Speci men Type: BLOOD SPECIMENOrdering Facility: [facility] Address: [address] [place] [address] Performed By: #### 2 4323-8 ####[facility]ITAL[facility]CL[facility] [id number] [place] [address] [place] Anion gap [Moles/Vol] 12 mmol/L Normal 8-15 [facility] Comment on above: Order Comment: Speci men Type: BLOOD SPECIMENOrdering Facility: [facility] Address: [address] [place] [address] Performed By: #### 2 4323-8 ####[facility] HANSAWNCLIA [id number] [place] [address] [place] AST [Catalytic activity/Vol] 13 U/L Normal 13-[address] [facility] Comment on above: Order Comment: Speci men Type: BLOOD SPECIMENOrdering Facility: [facility] Address: [address] [place] [address] Performed By: #### 2 4323-8 ####[facility] MILLTOWNCLIA [id number] [place] [address] [place] Bilirubin [Mass/Vol] mg/dL Low 0.2-1.3 [facility] Comment on above: Order Comment: Speci men Type: BLOOD SPECIMENOrdering Facility: [facility] Address: [address] [place] [address] Performed By: #### 2 4323-8 ####[facility] JIMENESLIA [id number] [place] [address] [place] Calcium [Mass/Vol] 9.1 mg/dL Normal 8.5-10.2 [facility] Comment on above: Order Comment: Speci men Type: BLOOD SPECIMENOrdering Facility: [facility] Address: [address] [place] [address] Performed By: #### 2 4323-8 ####[facility]ITALMIRELLALIA [id number] [place] [address] [place] Chloride [Moles/Vol] 101 mmol/L Normal 98-107 [facility] Comment on above: Order Comment: Speci men Type: BLOOD SPECIMENOrdering Facility: [facility] Address: [address] [place] [address] Performed By: #### 2 4323-8 ####[facility]OSPITALLIA [id number] [place] [address] [place] CO2 [Moles/Vol] 24 mmol/L Normal 22-[address] [facility] Comment on above: Order Comment: Speci men Type: BLOOD SPECIMENOrdering Facility: [facility] Address: [address] [place] [address] Performed By: #### 2 4323-8 ####[facility]ITALNCLIA [id number] [place] [address] [place] Creatinine [Mass/Vol] 0.77 mg/dL Normal 0.58-0.96 [facility] Comment on above: Order Comment: Speci men Type: BLOOD SPECIMENOrdering Facility: [facility] Address: [address] [place] [address] Performed By: #### 2 4323-8 ####[facility]ITALNCJORD[facility] [id number] [place] [address] [place] Creatinine and Glomerular filtration rate.predicted panel (S/P/Bld) 96 mL/min/1.73m??? Normal >=[address] [facility] Comment on above: Order Comment: Ulises walsh Type: BLOOD SPECIMENOrdering Facility: [facility] Address: [address] [place] [address] Result Comment: Tsering mated Glomerular Filtration Rate [...] actual GFR. Performed By: #### 2 4323-8 ####[facility] [id number] [place] [address] [place] Glucose [Mass/Vol] 110 mg/dL High 74-99 [facility] Comment on above: Order Comment: Ulises walsh Type: BLOOD SPECIMENOrdering Facility: [facility] Address: [address] [place] [address] Result Comment: The [place] Diabetes Association (ADA) provides guidance for cutoff [...] Standards of Medical Care in Diabetes 2016, [place] Diabetes Association. Diabetes Care. 2016.39(Suppl 1). Performed By: #### 2 4323-8 ####[facility] [id number] [place] [address] [place] Potassium [Moles/Vol] 4.3 mmol/L Normal 3.7-5.1 [facility] Comment on above: Order Comment: Speci men Type: BLOOD SPECIMENOrdering Facility: [facility] Address: [address] [place] [address] Performed By: #### 2 4323-8 ####[facility] MILLTOWNCLIA [id number] [place] [address] [place] Protein [Mass/Vol] 7.1 g/dL Normal 6.3-8.0 [facility] Comment on above: Order Comment: Speci men Type: BLOOD SPECIMENOrdering Facility: [facility] Address: [address] [place] [address] Performed By: #### 2 4323-8 ####[facility] MILLWNCLIA [id number] [place] [address] [place] Sodium [Moles/Vol] 137 mmol/L Normal 136-144 [facility] Comment on above: Order Comment: Speci men Type: BLOOD SPECIMENOrdering Facility: [facility] Address: [address] [place] [address] Performed By: #### 2 4323-8 ####[facility] MILLTOWNCLIA [id number] [place] [address] [place] Urea nitrogen [Mass/Vol] 12 mg/dL Normal 7-[address] [facility] Comment on above: Order Comment: Speci men Type: BLOOD SPECIMENOrdering Facility: [facility] Address: [address] [place] [address] Performed By: #### 2 4323-8 ####[facility] MILLTOWNCLIA [id number] [place] [address] [place] Cortis Tosha 01-11-20 24 Cortisol [Mass/Vol] 5.0 ug/dL Normal 4.8-19.5 [facility] Comment on above: Order Comment: Speci men Type: BLOOD SPECIMENOrdering Facility: [facility] Address: [address] [place] [address] Result Comment: Prov ided reference range is from 6-10 AM sample collection time.Cortisol Reference Range: 6-10 AM = 4.8-19.5 ug/dL, 4-8 PM = 2.5-11.9 ug/dL Performed By: #### 2 143-6, 3016-3 ####[facility] LABCLIA [id number] [place] [id number] [place] HISTORY PHYSICALon HISTORY PHYSICAL Normal [facility] TSH SerPl-aCncon 01-11-2024 TSH Qn 2.240 m[IU]/L Normal 0.270-4.[address] [facility] Comment on above: Order Comment: Ulises walsh Type: BLOOD SPECIMENOrdering Facility: [facility] Address: [address] [place] [address] Result Comment: If t he patient is , TSH reference range varies by gestational period:First Trimester (weeks 9-12): 0.180-2.990 mIU/LSecond Trimester: 0.110-3.980 mIU/LThird Trimester: 0.480-4.710 mIU/Michelle L et al. A Practical Approach for the Verifications and Determination of Site- and Trimester-Specific Reference Intervals for Thyroid Function tests in . Thyroid, 2019:29:3:412-420. Man Garvey, et al. 2017 Guidelines of the [place] Thyroid Association for the Diagnosis and Management of Thyroid Disease during and the . Thyroid, 2017:27:3:315-389. Performed By: #### 2 143-6, 3016-3 ####[facility] LABCLIA [id number] [place] [id number] [place] TYPE AND SCREEN,30 DAYon ABO A Normal [facility] Comment on above: Order Comment: Speci men Type: BLOOD SPECIMENOrdering Facility: [facility] Address: [address] [place] [address] Performed By: #### T SCR30 ####CC MAIN BLOOD BANKCLIA [id number] [place] [address] [place] Rh Nom (Bld) Positive Normal [facility] Comment on above: Order Comment: Speci men Type: BLOOD SPECIMENOrdering Facility: [facility] Address: [address] [place] [address] Performed By: #### T SCR30 ####CC MAIN BLOOD BANKCLIA [id number] [place] [address] [place] CNCOon 01-10-2024 CNCO Letter Text Normal [facility] CNPNon 01-09-2024 CNPN Normal [facility] Basophil percentageOrdered B y: Williams Cage on 04-09-2023 Basophil percentage 0-5 SEEN /hpf 0-5 [facility] Bilirubin Test strip Ql (U)O rdered By: Williams Cage on 04-09-2023 Bilirubin Ql (U) Negative Negative [facility] Ketones Test strip Ql (U)Ord ered By: Williams Cage on 04-09-2023 Ketones Ql (U) 5 mg/dl Negative [facility] Mucus LM Ql (Urine sed)Order ed By: Williams Cage on 04-09-2023 Mucus Ql (Urine sed) RARE /hpf [facility] Nitrite Test strip Ql (U)Ord ered By: Williams Cage on 04-09-2023 Nitrite Ql (U) Negative Negative [facility] No Panel InformationOrdered By: Williams Cage on 04-09-2023 Urine RBC 0-5 SEEN /hpf 0-5 [facility] Protein Test strip Ql (U)Ord ered By: Williams Cage on 04-09-2023 Protein Ql (U) Negative Negative [facility] Squamous epithelial cells de tection in urine sediment by light microscopyOrdered By: Williams Cage on 04-09-2023 Epithelial cells.squamous LM Ql (Urine sed) 0-5 SEEN /hpf 5-10 [facility] Thin prep Papanicolaou smear with manual screeningOrdered By: Williams Cage on 04-09-2023 Thin prep Papanicolaou smear with manual screening 104 mg/dL 74-106 [facility] Comment on above: MANAGEMENT OF PATIEN T CARE PER NURSING PROTOCOL Urine blood detectionOrdered By: Williams Cage on 04-09-2023 RBC Ql (U) 25 /ul Negative [facility] Urine clarityOrdered By: Williams Cage on 04-09-2023 Clarity (U) Clear Clear [facility] Urine color determinationOrd ered By: Williams Cage on 04-09-2023 Color (U) Yellow Yellow [facility] Urine glucose detectionOrder ed By: Williams Cage on 04-09-2023 Glucose Ql (U) Normal mg/dl Normal [facility] Urine leukocyte esterase det ection by dipstickOrdered By: Williams Cage on 04-09-2023 Leukocyte esterase Test strip Ql (U) Negative Negative [facility] Urine pHOrdered By: Williams pickard on 04-09-2023 pH (U) 5.0 [pH] 5.0 - 8.0 [facility] Urine sediment bacteria coun t by microscopy (number/high power field)Ordered By: Williams Cage on 04-09-2023 Bacteria LM.HPF (Urine sed) [#/Area] RARE /hpf None Seen [facility] Urine specific gravity measu rementOrdered By: Williams Cage on 04-09-2023 Specific gravity (U) [Rel density] 1.025 1.002-1.030 [facility] Urine urobilinogen measureme ntOrdered By: Williams Cage on 04-09-2023 Urobilinogen Ql (U) Normal mg/dl Normal [facility] APTTon 03-20-2022 aPTT Coag (Bld) [Time] 32 s Normal 26 - 39 [facility] Comment on above: Result Comment: THE APTT IS NO LONGER USED FOR MONITORING UNFRACTIONATED HEPARIN THERAPY. FOR MONITORING HEPARIN THERAPY, USE THE HEPARIN ASSAY. Performed By: #### A PTT #### [place] [address] BNPon 03-20-2022 Natriuretic peptide B (Bld) [Mass/Vol] 18 pg/mL Normal 0 - 99 [facility] Comment on above: Result Comment: . <1 00 pg/mL - Heart failure unlikely 100-299 pg/mL - Intermediate probability of acute heart . failure exacerbation. Correlate with clinical . context and patient history. >=300 pg/mL - Heart Failure likely. Correlate with clinical . context and patient history. BNP testing is performed using different testing methodology at [facility] than at other [facility]. Direct result comparisons should only be made within the same method. Performed By: #### B NP2 #### [place] [id number] CBC AND DIFFERENTIALon 03-20 % AUTOMATED IMMATURE GRAN 0.4 % Normal 0.0 - 0.9 [facility] Comment on above: Result Comment: Marina ture Granulocyte Count (IG) includes promyelocytes, myelocytes and metamyelocytes but does not include bands. Percent differential counts (%) should be interpreted in the context of the absolute cell counts (cells/L). Performed By: #### C BCDF #### [place] [id number] Basophils (Bld) [#/Vol] 0.04 10*3/uL Normal 0.00 - 0.10 [facility] Comment on above: Performed By: #### C BCDF #### [address] [address] Basophils/100 WBC (Bld) 0.3 % Normal 0.0 - 2.0 [facility] Comment on above: Performed By: #### C BCDF #### [address] [address] Eosinophils (Bld) [#/Vol] 0.09 10*3/uL Normal 0.00 - 0.70 [facility] Comment on above: Performed By: #### C BCDF #### [address] [address] Eosinophils/100 WBC (Bld) 0.7 % Normal 0.0 - 6.0 [facility] Comment on above: Performed By: #### C BCDF #### [address] [address] Erythrocyte distribution width (RBC) [Ratio] 12.9 % Normal 11.5 - 14.5 [facility] Comment on above: Performed By: #### C BCDF #### [address] [address] Hematocrit (Bld) [Volume fraction] 47.9 % High 36.0 - 46.0 [facility] Comment on above: Performed By: #### C BCDF #### [address] [address] Hemoglobin (Bld) [Mass/Vol] 15.7 g/dL Normal 12.0 - 16.0 [facility] Comment on above: Performed By: #### C BCDF #### [address] [address] Lymphocytes (Bld) [#/Vol] 2.19 10*3/uL Normal 1.20 - 4.80 [facility] Comment on above: Performed By: #### C BCDF #### [address] [address] Lymphocytes/100 WBC (Bld) 18.0 % Normal 13.0 - 44.0 [facility] Comment on above: Performed By: #### C BCDF #### [address] [address] MCHC (RBC) [Mass/Vol] 32.8 g/dL Normal 32.0 - 36.0 [facility] Comment on above: Performed By: #### C BCDF #### [address] [address] MCV (RBC) [Entitic vol] 92 fL Normal 80 - 100 [facility] Comment on above: Performed By: #### C BCDF #### [address] [address] Monocytes (Bld) [#/Vol] 0.85 10*3/uL Normal 0.10 - 1.00 [facility] Comment on above: Performed By: #### C BCDF #### [address] [address] Monocytes/100 WBC (Bld) 7.0 % Normal 2.0 - 10.0 [facility] Comment on above: Performed By: #### C BCDF #### [address] [address] Neutrophils (Bld) [#/Vol] 8.98 10*3/uL High 1.20 - 7.70 [facility] Comment on above: Result Comment: Perc ent differential counts (%) should be interpreted in the context of the absolute cell counts (cells/L). Performed By: #### C BCDF #### [address] [address] Neutrophils/100 WBC (Bld) 73.6 % Normal 40.0 - 80.0 [facility] Comment on above: Performed By: #### C BCDF #### [address] [address] Platelets (Bld) [#/Vol] 471 10*3/uL High 150 - 450 [facility] Comment on above: Performed By: #### C BCDF #### [address] [address] RBC 5.19 x10E12/L Normal 4.00 - 5.20 [facility] Comment on above: Performed By: #### C BCDF #### [address] [address] WBC (Bld) [#/Vol] 12.2 10*3/uL High 4.4 - 11.3 [facility] Comment on above: Performed By: #### C BCDF #### [address] [address] CHEST 1 VIEWon 03-20-2022 CHEST 1 VIEW STUDY: Chest Radiograph; 03/20/2022, 4:03 PM. INDICATION: Unspecified chest pain. COMPARISON: None Available. ACCESSION NUMBER(S): [id number] ORDERING CLINICIAN: PEPE SALMON DO TECHNIQUE: Frontal chest was obtained at 15:59 hours. FINDINGS: Lungs appear clear. No visible pneumothorax. Heart size within normal limits. No acute bony abnormality detected by this technique. No free air under the diaphragm. IMPRESSION: No radiographic evidence for pneumonia or pulmonary edema. Signed by Joey Chavez D.O. Electronically signed by: JOEY CHAVEZ, Normal [facility] COMPREHENSIVE PANELon 2022 Albumin [Mass/Vol] 3.9 g/dL Normal 3.4 - 5.0 [facility] Comment on above: Performed By: #### C MP #### [address] [address] ALP [Catalytic activity/Vol] 83 U/L Normal 33 - 110 [facility] Comment on above: Performed By: #### C MP #### [address] [address] ALT [Catalytic activity/Vol] 28 U/L Normal 7 - 45 [facility] Comment on above: Result Comment: Juju ents treated with Sulfasalazine may generate falsely decreased results for ALT. Performed By: #### C MP #### [address] [address] Anion gap [Moles/Vol] 12 mmol/L Normal 10 - 20 [facility] Comment on above: Performed By: #### C MP #### [address] [address] AST [Catalytic activity/Vol] 16 U/L Normal 9 - 39 [facility] Comment on above: Performed By: #### C MP #### [address] [address] Bilirubin [Mass/Vol] 0.6 mg/dL Normal 0.0 - 1.2 [facility] Comment on above: Performed By: #### C MP #### [address] [address] Calcium [Mass/Vol] 8.8 mg/dL Normal 8.6 - 10.3 [facility] Comment on above: Performed By: #### C MP #### [address] [address] Chloride [Moles/Vol] 105 mmol/L Normal 98 - 107 [facility] Comment on above: Performed By: #### C MP #### [address] [address] Creatinine [Mass/Vol] 0.80 mg/dL Normal 0.50 - 1.05 [facility] Comment on above: Performed By: #### C MP #### [address] [address] eGFR FEMALE >90 Normal >90 [facility] Comment on above: Result Comment: CALC ULATIONS OF ESTIMATED GFR ARE PERFORMED USING THE 2020 CKD-EPI STUDY REFIT EQUATION WITHOUT THE RACE VARIABLE FOR THE IDMS-TRACEABLE CREATININE METHODS. https://jasn.asnjournals.org/content/early//ASN.64445 [address] Performed By: #### C MP #### [address] [address] Glucose [Mass/Vol] 117 mg/dL High 74 - 99 [facility] Comment on above: Performed By: #### C MP #### [address] [address] HCO3 (Bld) [Moles/Vol] 25 mmol/L Normal 21 - 32 [facility] Comment on above: Performed By: #### C MP #### [address] [address] Potassium [Moles/Vol] 3.9 mmol/L Normal 3.5 - 5.3 [facility] Comment on above: Performed By: #### C MP #### [address] [address] Protein [Mass/Vol] 7.0 g/dL Normal 6.4 - 8.2 [facility] Comment on above: Performed By: #### C MP #### [address] [address] Sodium [Moles/Vol] 138 mmol/L Normal 136 - 145 [facility] Comment on above: Performed By: #### C MP #### [address] [address] Urea nitrogen [Mass/Vol] 16 mg/dL Normal 6 - 23 [facility] Comment on above: Performed By: #### C MP #### [address] [address] D-DIMER, VTE EXCLUSIONon D-DIMER, VTE EXCLUSION 306 ng/mL FEU Normal < or = 500 [facility] Comment on above: Result Comment: The [...] PE exclusion.) Performed By: #### D IMEX ####[address] [address] PT/INRon 03-20-2022 PT Coag (PPP) [Time] 13.2 s Normal 9.8 - 13.4 [facility] Comment on above: Performed By: #### P TINR #### [address] [address] PT, INR 1.1 Normal 0.9 - 1.1 [facility] Comment on above: Performed By: #### P TINR #### [address] [address] Provider Note - ED v3on 02-21 Provider [...] then. Patient was seen and evaluated at [facility] for her chest pain and was [...] changes. The P waves are somewhat enlarged. RI interval is 140 ms. The QRS durations 82 ms. The QTc is 447 ms axis is 58 degrees. Staff indicated to me that the patient has a history of gastritis and was wanting treatment I ordered IV Protonix for the patient. Repeat EKG was performed at 1642 reveals normal sinus rhythm 75 bpm with no acute ST-T wave changes. The RI interval is 142 ms. The QRS durations [...] chart was dictated with the use of [employer] software within the framework of the current electronic medical records software. Attempts were made to edit in real time, given time constraints there is the potential for inaccu (more content not included)... Normal [facility] Risk Screen - Adult Emergenc yon [...] Learning Preferencesindividual instruction Cultural Considerationsnone Developmental Considerationsnone Yazidi Considerationsnone Learning Assessment (Other Learner): Learning Assessment (Other Learner): Other learner availableno Pressure Injury/TB/Substance: Pressure Injury: Do you have a coughno Smoking Statusformer smoker Alcohol Usedenies Drug Useoccasionally Substance Commentcanabis Admission Risk Screen: Significant IndicatorsComplete CAGE: CAGE: Is this an injured patient at a Tra[place] Center [place] [place]/[place] /[place]): no Electronic Signatures: Aydee Holcomb (RN) (Signed 20-Mar-2022 15:44) Authored: Preferred Language, Patient Preferred Pharmacy, Advanced Directives, Family Violence Adult, Learning Assessment (Patient), Learning Assessment (Other Learner), Pressure Injury/TB/Substance, Pressure Injury, CAGE Last Updated: 20-Mar-2022 15:44 by Aydee Holcomb (RN) Normal [facility] TROPONIN I, HIGH SENSITIVITY on 03-20-2022 TROPONIN I, HIGH SENSITIVITY 3 ng/L Normal 0 - 13 [facility] Comment on above: Result Comment: . [...] performed using a different testing methodology at [facility] than at other [facility]. Direct result comparisons should only be made within the same method. Performed By: #### T [facility] #### [place] [address] TROPONIN I, HIGH SENSITIVITY 4 ng/L Normal 0 - 13 [facility] Comment on above: Result Comment: . [...] performed using a different testing methodology at [facility] than at other [facility] hospitals. Direct result comparisons should only be made within the same method. Performed By: #### T [facility] #### [facility] [address] [place] [id number] Triage - EDon 03-20-2022 Triage - ED [...] Accompanied By: self Language: Spoken Language Preferred: [place]ian CHIEF COMPLAINT PAUL DAVENPORT is a Female patient with a chief complaint of chest pain. Onset of the Complaint: 20-Mar-2022 Other Complaints: Pt. having chest pain that radiates under her breast and into her armpit since Sunday. Pt. was seen at [facility] Sunday and sent home. Pt. [...] BMI (kg/m2): 36.686 Calculated BSA (m2) 2.14 Gary Coma Scale: Best Eye Response: (E4) spontaneous [...] Past Medical History Reviewedyes Electronic Signatures: Aydee Holcomb) (Signed 20-Mar-2022 15:43) Entered: Risk Screens, Pain, Arrival, Pre-arrival, ABCD, Immunizations, Travel History, Chart Review, Scores, Past Medical History Authored: Quick Triage, Risk Screens, Pain, Arrival, Pre-arrival, ABCD, Immunizations, Travel History, Chart Review, Scores, Past Medical History Last Updated: 20-Mar-2022 15:43 by Aydee Holcomb (RN) [facility] Covid 19 Resultson 2 SARS-CoV-2 (COVID-19) RNA [...] You may also be contacted by the [facility] to see if any of your close [...] or Naproxen (Aleve) can also be used. Vypl-cdm-vxtntbd cough and cold medicines can be used according to the instructions on the package. Some drok-gor-dzqsuaj medicines also contain acetaminophen. Make sure you [...] water are not available, use alcohol-based hand optical model maker and tester. Avoid touching your eyes, nose, and mouth [...] 24 manjit (more content not included)... Normal [facility] INFLUENZA A/B, COVID 2019 PC R,SYMPTOMATICon 02-13-2022 INFLUENZA A, PCR Not detected Normal Not Detected [facility] Comment on above: Result Comment: Resp iratory virus testing is performed routinely by PCR for Influenza A/B and RSV. Not Detected results do not preclude Influenza A/B or RSV infections since the adequacy of sample collection or low viral burden may impact the clinical sensitivity of this test method. Performed By: #### C OINP ####[place] [address] INFLUENZA B, PCR Not detected Normal Not Detected [facility] Comment on above: Result Comment: Resp iratory virus testing is performed routinely by PCR for Influenza A/B and RSV. Not Detected results do not preclude Influenza A/B or RSV infections since the adequacy of sample collection or low viral burden may impact the clinical sensitivity of this test method. Performed By: #### C OINP ####[place] [address] SARS-CoV-2 (COVID-19) RNA KADY+probe Ql (Unsp spec) Not detected Normal Not Detected [facility] Comment on above: Result Comment: . This test has received FDA Emergency Use Authorization (EUA) and has been verified by [facility]. This test is only authorized for the duration of time that circumstances exist to justify the authorization of the emergency use of in vitro diagnostic tests for the detection of SARS-CoV-2 virus and/or diagnosis of COVID-19 infection under section 564(b)(1) of the Act, 21 U.S.C. 360bbb-3(b)(1), unless the authorization is terminated or revoked sooner. [facility] is certified under CLIA-88 as qualified to perform high complexity testing. Testing is performed in the [facility] laboratory located at [address] [place] [address]. SARS-CoV-2/Flu/RSV Multiplex Test: Fact sheet for providers: https://www.fda.gov/media/854679/download Fact sheet for patients: https://www.fda.gov/media/100747/download Performed By: #### C OINP ####[place] [address] Provider Note - ED v3on 01-20 Provider [...] instructed to take medication and follow-up with [facility] medical doctor 1 to 2 days. [...] Authorization (EUA) and has been verified by [facility]. This test is only authorized for the duration of time that circum Respiratory Syncytial Virus, PCR 13-Feb-2022 16:44:00 ResultValue RSV PCR NOT (more content not included)... Normal [facility] RSV PCRon 02-13-2022 RSV,PCR Not detected Normal Not Detected [facility] Comment on above: Result Comment: Resp iratory virus testing is performed routinely by PCR for Influenza A/B and RSV. Not Detected results do not preclude Influenza A/B or RSV infections since the adequacy of sample collection or low viral burden may impact the clinical sensitivity of this test method. Performed By: #### R SVPC #### [place] [address] Lab Specimen Source Nasal, Nasopharyngeal Normal [facility] Comment on above: Performed By: #### R SVPC #### [place] [address] Performed By: #### C OINP ####[place] [address] Risk Screen - Adult Emergenc yon 02-13-2022 [...] instruction; written material Cultural Considerationsnone Developmental Considerationsnone Yazidi Considerationsnone Learning Assessment (Other Learner): Learning Assessment [...] an injured patient at a [place] Center [place] [place]/[place] /[place] no Electronic Signatures: Marcelle Ramirez (NORBERTO) (Signed 13-Feb-2022 15:52) Authored: Preferred Language, Patient Preferred Pharmacy, Advanced Directives, Family Violence Adult, Learning Assessment (Patient), Learning Assessment (Other Learner), Pressure Injury/TB/Substance, Pressure Injury, CAGE Last Updated: 13-Feb-2022 15:52 by Marcelle Ramirez (NORBERTO) [facility] Triage - EDon 02-13-2022 Triage - ED [...] CM Weight: 240.3 pounds. Calculated 109.0 kg. Joyce Coma Scale: Best Eye Response: (E4) spontaneous Best Motor Response: (M6) obeys commands Best Verbal Response: (V5) oriented Gary Score: 15 Cough lasting greater than 3 [...] Past Medical History, Active Electronic Signatures: Marcelle Ramirez (NORBERTO) (Signed 13-Feb-2022 15:51) Entered: Risk Screens, Pain, Travel History, Chart Review, Scores, Past Medical History Authored: Quick Triage, Risk Screens, Pain, Travel History, Chart Review, Scores, Past Medical History Last Updated: 13-Feb-2022 15:51 by Marcelle Ramirez) Normal [facility] CBC panel Auto (Bld)on 05-17 Erythrocyte distribution width (RBC) [Ratio] 13.4 % Normal 11.5-15.0 [facility] Comment on above: Order Comment: Speci men Type: BLOOD SPECIMEN Ordering Facility: [facility] Address: [address] [place] [address] Performed By: #### 5 8410-2 #### [facility] CLIA [id number] [address] [place] [address] [place] #### HBA1C #### [facility] CLIA [id number] [address] [place] [address] [place] Hematocrit (Bld) [Volume fraction] 44.7 % Normal 36.0-46.0 [facility] Comment on above: Order Comment: Speci men Type: BLOOD SPECIMEN Ordering Facility: [facility] Address: [address] [place] [address] Performed By: #### 5 8410-2 #### [facility] [place] [id number] [address] [place] [address] [place] #### HBA1C #### [facility] CLIA [id number] [address] [place] [address] [place] Hemoglobin (Bld) [Mass/Vol] 14.6 g/dL Normal 11.5-15.5 [facility] Comment on above: Order Comment: Speci men Type: BLOOD SPECIMEN Ordering Facility: [facility] Address: [address] [place] [address] Performed By: #### 5 8410-2 #### [facility] CLIA [id number] [address] [place] [address] [place] #### HBA1C #### [facility] CLIA [id number] [address] [place] [address] [place] MCH (RBC) [Entitic mass] 30.8 pg Normal 26.0-34.0 [facility] Comment on above: Order Comment: Speci men Type: BLOOD SPECIMEN Ordering Facility: [facility] Address: [address] [place], [place] [address] Performed By: #### 5 8410-2 #### [facility] CLIA [id number] [address] [place] [address] [place] #### HBA1C #### [facility] CLIA [id number] [address] [place] [address] [place] MCHC (RBC) [Mass/Vol] 32.7 g/dL Normal 30.5-36.0 [facility] Comment on above: Order Comment: Speci men Type: BLOOD SPECIMEN Ordering Facility: [facility] Address: [address] [place] [address] Performed By: #### 5 8410-2 #### [facility] CLIA [id number] [address] [place] [address] [place] #### HBA1C #### [facility] CLIA [id number] [address] [place] [address] [place] MCV (RBC) [Entitic vol] 94.3 fL Normal 80.0-100.0 [facility] Comment on above: Order Comment: Speci men Type: BLOOD SPECIMEN Ordering Facility: [facility] Address: [address] [place] [address] Performed By: #### 5 8410-2 #### [facility] CLIA [id number] [address] [place] [address] [place] #### HBA1C #### [facility] CLIA [id number] [address] [place] [address] [place] Nucleated RBC (Bld) [#/Vol] 10*3/uL Normal <0.01 [facility] Comment on above: Order Comment: Speci men Type: BLOOD SPECIMEN Ordering Facility: [facility] Address: [address] [place] [address] Performed By: #### 5 8410-2 #### [facility] CLIA [id number] [place] [address] [place] #### HBA1C #### [facility] CLIA [id number] [address] [place] [address] [place] Platelet mean volume (Bld) [Entitic vol] 9.9 fL Normal 9.0-12.7 [facility] Comment on above: Order Comment: Speci men Type: BLOOD SPECIMEN Ordering Facility: [facility] Address: [address] [place], [place] [address] Performed By: #### 5 8410-2 #### [facility] CLIA [id number] [address] [place] [address] [place] #### HBA1C #### [facility] CLIA [id number] [address] [place] [address] [place] Platelets (Bld) [#/Vol] 416 10*3/uL High 150-400 [facility] Comment on above: Order Comment: Speci men Type: BLOOD SPECIMEN Ordering Facility: [facility] Address: [address] [place], [place] [address] Performed By: #### 5 8410-2 #### [facility] CLIA [id number] [address] [place] [address] [place] #### HBA1C #### [facility] CLIA [id number] [address] [place] [address] [place] RBC (Bld) [#/Vol] 4.74 10*6/uL Normal 3.90-5.20 [facility] Comment on above: Order Comment: Speci men Type: BLOOD SPECIMEN Ordering Facility: [facility] Address: [address] [place] [address] Performed By: #### 5 8410-2 #### [facility] CLIA [id number] [address] [place] [address] [place] #### HBA1C #### [facility] CLIA [id number] [address] [place] [address] [place] WBC (Bld) [#/Vol] 9.93 10*3/uL Normal 3.70-11.00 [facility] Comment on above: Order Comment: Speci men Type: BLOOD SPECIMEN Ordering Facility: [facility] Address: [address] [place] [address] Performed By: #### 5 8410-2 #### [facility] CLIA [id number] [address] [place] [address] [place] #### HBA1C #### [facility] CLIA [id number] [address] [place] [address] [place] Comprehensive metabolic 2000 panelon 05-17-2021 Albumin [Mass/Vol] 4.3 g/dL Normal 3.9-4.9 [facility] Comment on above: Order Comment: Speci men Type: BLOOD SPECIMEN Ordering Facility: [facility] Address: [address] [place], [place] [address] Performed By: #### 2 4323-8, B12, 3016-3 #### [facility] CLIA [id number] [address] [place] [address] [place] ALP [Catalytic activity/Vol] 103 U/L Normal 34-123 [facility] Comment on above: Order Comment: Speci men Type: BLOOD SPECIMEN Ordering Facility: [facility] Address: [address] [place], [place] [address] Performed By: #### 2 4323-8, B12, 3016-3 #### [facility] CLIA [id number] [address] [place] [address] [place] ALT [Catalytic activity/Vol] 24 U/L Normal 7-38 [facility] Comment on above: Order Comment: Speci men Type: BLOOD SPECIMEN Ordering Facility: [facility] Address: [address] [place], [place] [address] Performed By: #### 2 4323-8, B12, 3016-3 #### [facility] CLIA [id number] [address] [place] [address] [place] Anion gap [Moles/Vol] 10 mmol/L Normal 9-18 [facility] Comment on above: Order Comment: Speci men Type: BLOOD SPECIMEN Ordering Facility: [facility] Address: [address] [place] [address] Performed By: #### 2 4323-8, B12, 6-3 #### [facility] CLIA [id number] [place] [address] [place] AST [Catalytic activity/Vol] 18 U/L Normal 13-35 [facility] Comment on above: Order Comment: Speci men Type: BLOOD SPECIMEN Ordering Facility: [facility] Address: [address] [place] [address] Performed By: #### 2 4323-8, B12, 3015-3 #### [facility] CLIA [id number] [address] [place] [address] [place] Bilirubin [Mass/Vol] 0.3 mg/dL Normal 0.2-1.3 [facility] Comment on above: Order Comment: Speci men Type: BLOOD SPECIMEN Ordering Facility: [facility] Address: [address] [place] [address] Performed By: #### 2 4323-8, B12, 6-3 #### [facility] CLIA [id number] [address] [place] [address] [place] Calcium [Mass/Vol] 9.2 mg/dL Normal 8.5-10.2 [facility] Comment on above: Order Comment: Speci men Type: BLOOD SPECIMEN Ordering Facility: [facility] Address: [address] [place] [address] Performed By: #### 2 4323-8, B12, 6-3 #### [facility] CLIA [id number] [address] [place] [address] [place] Chloride [Moles/Vol] 102 mmol/L Normal 97-105 [facility] Comment on above: Order Comment: Speci men Type: BLOOD SPECIMEN Ordering Facility: [facility] Address: [address] [place] [address] Performed By: #### 2 4323-8, B12, 3015-3 #### [facility] CLIA [id number] [address] [place] [address] [place] CO2 [Moles/Vol] 28 mmol/L Normal 22-30 [facility] Comment on above: Order Comment: Speci men Type: BLOOD SPECIMEN Ordering Facility: [facility] Address: [address] [place] [address] Performed By: #### 2 4323-8, B12, 3015-3 #### [facility] CLIA [id number] [address] [place] [address] [place] Creatinine [Mass/Vol] 0.66 mg/dL Normal 0.58-0.96 [facility] Comment on above: Order Comment: Speci men Type: BLOOD SPECIMEN Ordering Facility: [facility] Address: [address] [place] [address] Performed By: #### 2 4323-8, B12, 3 #### [facility] CLIA [id number] [address] [place] [address] ESTIMATED GLOMERULAR FILTRATION RATE 111 mL/min/1.73m??? Normal >=60 [facility] Comment on above: Order Comment: Speci men Type: BLOOD SPECIMEN Ordering Facility: [facility] Address: [address] [place] [address] Result Comment: Tsering mated Glomerular Filtration Rate [...] GFR. Performed By: #### 2 4323-8, B12, 3015-3 #### [facility] CLIA [id number] [address] [place] [address] [place] Glucose [Mass/Vol] 105 mg/dL High 74-99 [facility] Comment on above: Order Comment: Ulises walsh Type: BLOOD SPECIMEN Ordering Facility: [facility] Address: [address] [place], [place] [address] Result Comment: The [place] Diabetes Association (ADA) provides guidance for cutoff [...] Standards of Medical Care in Diabetes 2016, [place] Diabetes Association. Diabetes Care. 2016.39(Suppl 1). Performed By: #### 2 4323-8, B12, 3016-3 #### [facility] CLIA [id number] [address] [place] [address] [place] Potassium [Moles/Vol] 4.6 mmol/L Normal 3.7-5.1 [facility] Comment on above: Order Comment: Ulises walsh Type: BLOOD SPECIMEN Ordering Facility: [facility] Address: [address] [place], [place] [address] Performed By: #### 2 4323-8, B12, 3016-3 #### [facility] CLIA [id number] [address] [place] [address] [place] Protein [Mass/Vol] 6.6 g/dL Normal 6.3-8.0 [facility] Comment on above: Order Comment: Ulises walsh Type: BLOOD SPECIMEN Ordering Facility: [facility] Address: [address] [place], [place] [address] Performed By: #### 2 4323-8, B12, 3016-3 #### [facility] CLIA [id number] [address] [place] [address] [place] Sodium [Moles/Vol] 140 mmol/L Normal 136-144 [facility] Comment on above: Order Comment: Speci men Type: BLOOD SPECIMEN Ordering Facility: [facility] Address: [address] [place] [address] Performed By: #### 2 4323-8, B12, 3016-3 #### [facility] CLIA [id number] [address] [place] [address] [place] Urea nitrogen [Mass/Vol] 13 mg/dL Normal 7-21 [facility] Comment on above: Order Comment: Speci men Type: BLOOD SPECIMEN Ordering Facility: [facility] Address: [address] [place] [address] Performed By: #### 2 4323-8, B12, 3016-3 #### [facility] IA [id number] [address] [place] [address] [place] HGB A1Con 05-17-2021 Average glucose Estimated from glycated hemoglobin (Bld) [Mass/Vol] 126 mg/dL Normal [facility] Comment on above: Order Comment: Speci men Type: BLOOD SPECIMEN Ordering Facility: [facility] Address: [address] [place] [address] Result Comment: eAG: (Estimated average glucose) is a calculated value from HgbA1c and is national sales representative of the average blood glucose level in the last 2-3 month period. Performed By: #### 5 8410-2 #### [facility] CLIA [id number] [address] [place] [address] [place] #### HBA1C #### [facility] CLIA [id number] [address] [place] [address] [place] HbA1c (Bld) [Mass fraction] 6.0 % High 4.3-5.6 [facility] Comment on above: Order Comment: Speci men Type: BLOOD SPECIMEN Ordering Facility: [facility] Address: [address] [place] [address] Result Comment: Amer [place] Diabetes Association guidelines indicate that patients with HgbA1c in the range 5.7-6.4% are at increased risk for development of diabetes, and intervention by lifestyle modification may be beneficial. HgbA1c greater or equal to 6.5% is considered diagnostic of diabetes. Performed By: #### 5 8410-2 #### [facility] CLIA [id number] [address] [place] [address] [place] #### HBA1C #### [facility] CLIA [id number] [address] [facility] [address] [id number] [place] [address] [place] LIPID PANEL BASICon 05-18-19 22 Cholesterol [Mass/Vol] 169 mg/dL Normal <200 [facility] Comment on above: Order Comment: Ulises walsh Type: BLOOD SPECIMEN Ordering Facility[facility] Address: [address] [place] [address] Result Comment: <200 mg/dL, Desirable 200-239 mg/dL, Borderline high >239 mg/dL, High Performed By: #### L IPB #### [facility] CLIA [id number] [address] [place] [address] [place] Cholesterol in HDL [Mass/Vol] 38 mg/dL Low >39 [facility] Comment on above: Order Comment: Ulises walsh Type: BLOOD SPECIMEN Ordering Facility: [facility] Address: [address] [place] [address] Result Comment: 40-5 9 mg/dL, Acceptable >59 mg/dL, High: Negative risk factor for coronary heart disease <40 mg/dL, Low: Positive risk factor for coronary heart disease Performed By: #### L IPB #### [facility] CLIA [id number] [address] [place] [address] [place] Cholesterol in LDL [Mass/Vol] 112 mg/dL High <100 [facility] Comment on above: Order Comment: Ulises walsh Type: BLOOD SPECIMEN Ordering Facility: [facility] Address: [address] [place] [address] Result Comment: <100 mg/dL, Optimal 100-129 mg/dL, Near optimal/above optimal 130-159 mg/dL, Borderline high 160-189 mg/dL, High >189 mg/dL, Very high Secondary prevention optimal LDL Cholesterol levels are recommended to be < 70 mg/dL Performed By: #### L IPB #### [facility] CLIA [id number] [address] [place] [address] [place] Cholesterol in LDL/Cholesterol in HDL [Mass ratio] 2.95 {ratio} High <2.54 [facility] Comment on above: Order Comment: Ulises walsh Type: BLOOD SPECIMEN Ordering Facility: [facility] Address: [address] [place] [address] Result Comment: Refe rence: 1. National Cholesterol Education Program ATP III Guideline At-A-Glance Quick Desk Reference: National Heart, Lung, and Blood Flora. National Institutes of Health. 2001: NIH Publication No. 01-3305. 2. An International Atherosclerosis Society position paper: global recommendations for the management of dyslipidemia: executive summary, Atherosclerosis. 2014: 232(2):410-413. Performed By: #### L IPB #### [facility] CLIA [id number] [address] [place] [address] [place] Cholesterol in VLDL [Mass/Vol] 19 mg/dL Normal <30 [facility] Comment on above: Order Comment: Ulises walsh Type: BLOOD SPECIMEN Ordering Facility: [facility] Address: [address] [place] [address] Performed By: #### L IPB #### [facility] CLIA [id number] [address] [place] [address] [place] Cholesterol non HDL [Mass/Vol] 131 mg/dL High <130 [facility] Comment on above: Order Comment: Ulises walsh Type: BLOOD SPECIMEN Ordering Facility: [facility] Address: [address] [address] Result Comment: <130 mg/dL, Optimal 130-159 mg/dL, Near optimal/above optimal 160-189 mg/dL, Borderline high 190-219 mg/dL, High >219 mg/dL, Very high Secondary prevention optimal non HDL Cholesterol levels are recommended to be <100 mg/dL Performed By: #### L IPB #### [facility] CLIA [id number] [address] [place] [address] [place] Cholesterol.total/Chol esterol in HDL [Mass ratio] 4.45 {ratio} Normal <5.10 [facility] Comment on above: Order Comment: Ulises walsh Type: BLOOD SPECIMEN Ordering Facility: [facility] Address: [address] [place] [address] Performed By: #### L IPB #### [facility] CLIA [id number] [address] [place] [address] [place] FASTING TIME 12 hrs Normal [facility] Comment on above: Order Comment: Ulises walsh Type: BLOOD SPECIMEN Ordering Facility: [facility] Address: [address] [place] [address] Performed By: #### L IPB #### [facility] CLIA [id number] [address] [place] [address] [place] Triglyceride [Mass/Vol] 94 mg/dL Normal <150 [facility] Comment on above: Order Comment: Ulises walsh Type: BLOOD SPECIMEN Ordering Facility: [facility] Address: [address] [place] [address] Result Comment: <150 mg/dL, Normal 150-199 mg/dL, Borderline high 200-499 mg/dL, High >499 mg/dL, Very high Performed By: #### L IPB #### [facility] CLIA [id number] [address] [place] [address] [place] TSH SerPl-aCncon 05-17-2021 TSH Qn 1.360 m[IU]/L Normal 0.270-4.200 [facility] Comment on above: Order Comment: Ulises walsh Type: BLOOD SPECIMEN Ordering Facility: [facility] Address: [address] [place] [address] Result Comment: If t he patient is , TSH reference range varies by gestational period: First Trimester (weeks 9-12): 0.180-2.990 mIU/L Second Trimester: 0.110-3.980 mIU/L Third Trimester: 0.480-4.710 mIU/L Giovanni Hooper et al. A Practical Approach for the Verifications and Determination of Site- and Trimester-Specific Reference Intervals for Thyroid Function tests in . Thyroid, 2019:29:3:412-420. Man E, et al. 2017 Guidelines of the [place] [employer] for the Diagnosis and Management of Thyroid Disease during and the . Thyroid, 2017:27:3:315-389. Performed By: #### 2 4323-8, B12, 3016-3 #### [facility] CLIA [id number] [address] [place] [address] [place] VITAMIN B12 BLOODon 05-18-19 Cobalamin (Vitamin B12) [Mass/Vol] 366 pg/mL Normal 232-1,245 [facility] Comment on above: Order Comment: Spectariq walsh Type: BLOOD SPECIMEN Ordering Facility: [facility] Address: [address] [place] [address] Performed By: #### 2 4323-8, B12, 3016-3 #### [facility] CLIA [id number] [address] [place] [address] [place] VITAMIN D 25 HYDROXYon 05-17 25-hydroxyvitamin D3 [Mass/Vol] 53.6 ng/mL Normal 31.0-80.0 [facility] Comment on above: Order Comment: Ulises walsh Type: BLOOD SPECIMEN Ordering Facility: [facility] Address: [address] [place] [address] Result Comment: Clas sification of 25 [place] Vitamin D status: Deficiency/Insufficiency: < or = 30 ng/ml. Sufficiency/Optimal Levels: 31-80 ng/mL Toxicity: > 100 ng/mL. Test performed by chemiluminescent immunoassay. Performed By: #### V ITD #### [facility] CLIA [id number] [address] [place] [address] [place] CNDSon 04-12-2018 CNDS HNO ID: [id number] Author: Frances Emanuel (Pa) Service: Colorectal Author Type: Physician Soda Flaker Type: Discharge Summaries Filed: 04/12/2018 11:37 AM Note Text: -------- Attestation signed by Joey Pickett at 04/12/2018 3:34 PM Attending Note: Swenson findings confirmed. Patient examined. Discussed with the resident/INTERIOR DESIGN ASSISTANT/PA and the patient. Plan as outlined. Joey Pickett MD, FACS, [facility] Colorectal Surgery -------- DISCHARGE SUMMARY PATIENT NAME: [...] Time Provider Department Center 05/09/2018 8:20 AM [id number], [facility] ALLERGIES Allergen Reactions - Dust [...] Anticoagulant SIGNATURE: Frances Emanuel PA-C PAGER/CONTACT #: [phone] DATE: April 12, 2018 TIME: 11:33 AM Normal [facility] Magnesiumon 04-12-2018 Magnesium mass conc 1.9 mg/dL Normal 1.7-2.6 [facility] Comment on above: Performed By: #### M Moriah, PHOS ####[facility] [place], [place] [phone] PLAN OF CAREon 04-12-2018 PLAN OF CARE HNO ID: [id number] Author: Zonia Hogan (Pharmacist) Service: Pharmacy Author [...] Pharmacist April 12, 2018 9:57 AM Pager: [phone] 04/12/2018 9:57 AM Medication List START taking [...] ARIPiprazole 20 mg tablet Commonly known as: AMY diclofenac sodium 1 % topical gel Commonly [...] oxyCODONE IR 5 mg immediate release tablet [facility] PROGRESSon 04-12-2018 Protein mass conc HNO ID: [id number] Author: Teo Allison Service: Colorectal Author Type: Resident Type: Progress Notes Filed: 04/12/2018 7:28 AM Note Text: SURGERY PROGRESS NOTE Paul Davenport [id number] Hospital Day: 3 2 Days Post-Op: laparoscopic [...] Surgery April 12, 2018 7:25 AM Normal [facility] Phosphoruson 04-12-2018 Phosphate mass conc 3.3 mg/dL Normal 2.5-4.5 [facility] Comment on above: Performed By: #### M G1, PHOS ####[place] [phone] Basic Metabolic Panlon 04-11 Anion gap molar conc 10 mmol/L Normal 9-18 [facility] Comment on above: Performed By: #### C BCDIF, BMP ####[place] [phone] Calcium mass conc 8.1 mg/dL Low 8.5-10.5 [facility] Comment on above: Performed By: #### C BCDIF, BMP ####[place] [phone] Chloride molar conc 102 mmol/L Normal 98-110 [facility] Comment on above: Performed By: #### C BCDIF, BMP ####[place] [phone] CO2 molar conc 26 mmol/L Normal 23-32 [facility] Comment on above: Performed By: #### C BCDIF, BMP ####[place] [phone] Creatinine mass conc 0.75 mg/dL Normal 0.70-1.40 [facility] Comment on above: Performed By: #### C BCDIF, BMP ####[place] [phone] eGFR- Amer. >60 Normal >60 [facility] Comment on above: Performed By: #### C BCDIF, BMP ####[place] [phone] GFR/1.73 sq M predicted among non-blacks MDRD vol rate/area (S/P/Bld) mL/min/{1.73_m2} Normal >60 [facility] Comment on above: Performed By: #### C BCDIF, BMP ####[place] [phone] Glucose mass conc 85 mg/dL Normal 65-100 [facility] Comment on above: Performed By: #### C BCDIF, BMP ####[place] [phone] Potassium molar conc 3.4 mmol/L Low 3.5-5.0 [facility] Comment on above: Performed By: #### C BCDIF, BMP ####[place] [phone] Sodium molar conc 138 mmol/L Normal 132-148 [facility] Comment on above: Performed By: #### C BCDIF, BMP ####[place] [phone] Urea nitrogen mass conc 8 mg/dL Normal 8-25 [facility] Comment on above: Performed By: #### C BCDIF, BMP ####[place] [phone] CASE MGT INIT BIBon 2018 CASE MGT INIT BIB HNO ID: [id number] Author: Paty Chang (Sw) Service: Case Management Author Type: Wireless Architect Type: Care Mgt Initial Assessment Filed: 04/11/2018 2:31 PM Note Text: CARE MANAGEMENT: ASSESSMENT AND DISCHARGE PLAN SERVICE DATE: 04/11/2018 SERVICE TIME: 1:45 PRIMARY CARE PHYSICIAN: Paul Angeles MD ADMISSION STATUS: Inpatient Needs Prior to Discharge: Ready for Discharge MEDICAL: Patient/Rubber Down Stated Goals: To return home to life as it was To be cured/healed Health Insurance: [employer] EXTENDED STAYS DUAL ADVANTAGE MEDICARE . Health Issues Impacting Discharge Plan: rectal prolapse had laparoscopic proctopexy Last Admission Date: Previous admit date: 08/28/2013 Is this Within the Past 30 days? No Advance Directive: Current Advance Directive: None Rail Walker Attempted to Assist with AD Completion: Yes [...] None Has the Patient Been in a Group Home Facility in the Past 30 days? No SOCIAL: Living Arrangement: Home Lives With: Alone Financial Resources: Disabled Primary Contact: Extended Emergency Contact Information Primary Emergency Contact: Zenia Hollingsworth [place] Relation: Sister Supportive: Yes Other Important Patient [...] 0 I feel financially burdened by my hiq-ru-zkwcgx expenses for my prescription medication: Disagree completely [...] 11, 2018 TIME: 2:28 PM PAGER/CONTACT #: [phone] Normal [facility] CBC and Differentialon 04-11 Abs Baso <0.03 Normal <0.11 [facility] Comment on above: Performed By: #### C BCDIF, BMP ####[place] [phone] Abs Mccormick 1.04 k/uL High <0.87 [facility] Comment on above: Performed By: #### C BCDIF, BMP ####[place] [phone] Abs Neut 7.95 k/uL High 1.45-7.50 [facility] Comment on above: Performed By: #### C BCDIF, BMP ####[address] Basophils/100 WBC (Bld) 0.0 % Normal [facility] Comment on above: Performed By: #### C BCDIF, BMP ####[place] [phone] DTYPE Auto Diff Normal [facility] Comment on above: Performed By: #### C BCDIF, BMP ####[place] [phone] Eosinophils #/vol (Bld) 10*3/uL Normal <0.46 [facility] Comment on above: Performed By: #### C BCDIF, BMP ####[place] [phone] Eosinophils/100 WBC (Bld) 0.2 % Normal [facility] Comment on above: Performed By: #### C BCDIF, BMP ####[place] [phone] Erythrocyte distribution width Ratio (RBC) 12.9 % Normal 11.5-15.0 [facility] Comment on above: Performed By: #### C BCDIF, BMP ####[place] [phone] Hematocrit Volume Fraction (Bld) 39.5 % Normal 36.0-46.0 [facility] Comment on above: Performed By: #### C BCDIF, BMP ####[place] [phone] Hemoglobin mass conc (Bld) 12.9 g/dL Normal 11.5-15.5 [facility] Comment on above: Performed By: #### C BCDIF, BMP ####[place] [phone] Lymphocytes #/vol (Bld) 3.19 10*3/uL Normal 1.00-4.00 [facility] Comment on above: Performed By: #### C BCDIF, BMP ####[place] [phone] Lymphocytes/100 WBC (Bld) 26.1 % Normal [facility] Comment on above: Performed By: #### C BCDIF, BMP ####[place] [phone] MCH Entitic mass (RBC) 31.1 pG Normal 26.0-34.0 [facility] Comment on above: Performed By: #### C BCDIF, BMP ####[place] [phone] MCHC mass conc (RBC) 32.7 g/dL Normal 30.5-36.0 [facility] Comment on above: Performed By: #### C BCDIF, BMP ####[place] [phone] MCV Entitic volume (RBC) 95.2 fL Normal 80.0-100.0 [facility] Comment on above: Performed By: #### C BCDIF, BMP ####[place] [phone] Monocytes/100 WBC (Bld) 8.5 % Normal [facility] Comment on above: Performed By: #### C BCDIF, BMP ####[place] [phone] Neutrophils/100 WBC (Bld) 65.2 % Normal [facility] Comment on above: Performed By: #### C BCWENDIE, BMP ####[place] [phone] Platelet mean volume Entitic volume (Bld) 9.9 fL Normal 9.0-12.7 [facility] Comment on above: Performed By: #### C BCWENDIE, BMP ####[place] [phone] Platelets #/vol (Bld) 403 10*3/uL High 150-400 [facility] Comment on above: Performed By: #### C BCDEBBIF, BMP ####[place] [phone] RBC #/vol (Bld) 4.15 10*6/uL Normal 3.90-5.20 [facility] Comment on above: Performed By: #### C BCDIF, BMP ####[place] [phone] WBC #/vol (Bld) 12.20 10*3/uL High 3.70-11.00 [facility] Comment on above: Performed By: #### C BCDIF, BMP ####[place] [phone] NURSING PROGon 04-11-2018 Protein mass conc HNO ID: [id number] Author: Luana (Rn) NORBERTO West Service: (none) Author Type: Registered Nurse Type: Nursing Progress Note Filed: 04/11/2018 1:50 AM Note Text: Nursing Progress Note Patient Name: Paul Davenport Patient Location: [address]/ Daily Note:04/10/18 2030 - Pt alert and oriented, resting in bed. C/o 6/10 abdominal aching, given ice pack for now. Denies passing gas, BS hypoactive. Denies nausea, tolerating clear liquids without issue. Malhotra draining clear yellow urine. Lung sounds clear bilaterally, currently on 2L NC. IV fluids infusing per MAR. PAS on. Bed alarm on. Will cont to monitor. 0145 - Pt ambulating hallway. Gait steady. This note was completed by: Luana West RN [facility] PROGRESSon 04-11-2018 Protein mass conc HNO ID: [id number] Author: Jose Manuel (Franny) Carolin Service: Colorectal Author Type: Resident Type: Progress [...] Jose Manuel Coe MD General Surgery, PGY-1 [facility] PT EDon 04-11-2018 PT ED HNO ID: [id number] Author: Shanon CalderonDtsharon) Bill Service: Nutrition Therapy Author Type: Ceiling Cleaner Type: Patient Education Filed: 04/11/2018 12:26 PM [...] Type: Routine Care/15 min 1 unit SHANON MARIA DTR Pager: [phone] April 11, 2018 12:24 PM [facility] ANES Elias 04-10-2018 ANES POST HNO ID: [id number] Author: Royce Posadas Service: Anesthesiology Author Type: [...] 10, 2018 TIME: 12:53 PM PAGER/CONTACT #: [facility] ANES PREOPon 04-10-2018 ANES PREOP HNO ID: [id number] Author: Royce Posadas Service: Anesthesiology Author Type: [...] Potassium 3.5 04/03/2018 ANES DOS/PREOP NOTE: Vitals: 04/10/18 0726 BP: 121/86 Pulse: 64 Resp: 16 Temp: [...] (ROCEPHIN) 2 g INTRAVENOUS Pre-Op Once Kylee Arredondo) Celso metroNIDAZOLE 500 mg PREMIX piggyback (FLAGYL) 500 mg INTRAVENOUS Pre-Op Once Kylee Arredondo) Celso lactated ringers infusion 30 mL/hr INTRAVENOUS CONTINUOUS Royce Zyck Allergies: ALLERGIES Allergen Reactions - Dust extreme [...] April 10, 2018 TIME: 8:17 AM CSN: [id number] Normal [facility] Basic Metabolic Panlon 04-10 Anion gap molar conc 8 mmol/L Low 9-18 [facility] Comment on above: Performed By: #### C BCWENDIE BMP ####[place] [phone] Calcium mass conc 8.0 mg/dL Low 8.5-10.5 [facility] Comment on above: Performed By: #### C BCDIF BMP ####[address] [phone] Chloride molar conc 104 mmol/L Normal 98-110 [facility] Comment on above: Performed By: #### C BCDIF BMP ####[address] [phone] CO2 molar conc 26 mmol/L Normal 23-32 [facility] Comment on above: Performed By: #### C BCDIF BMP ####[place] [phone] Creatinine mass conc 0.83 mg/dL Normal 0.70-1.40 [facility] Comment on above: Performed By: #### C BCDIF, BMP ####[place] [phone] eGFR- Amer. >60 Normal >60 [facility] Comment on above: Performed By: #### C BCDIF, BMP ####[place] [phone] GFR/1.73 sq M predicted among non-blacks MDRD vol rate/area (S/P/Bld) mL/min/{1.73_m2} Normal >60 [facility] Comment on above: Performed By: #### C BCDIF, BMP ####[place] [phone] Glucose mass conc 108 mg/dL High 65-100 [facility] Comment on above: Performed By: #### C BCDIF, BMP ####[place] [phone] Potassium molar conc 3.7 mmol/L Normal 3.5-5.0 [facility] Comment on above: Performed By: #### C BCDIF, BMP ####[place] [phone] Sodium molar conc 138 mmol/L Normal 132-148 [facility] Comment on above: Performed By: #### C BCDIF, BMP ####[place] [phone] Urea nitrogen mass conc 12 mg/dL Normal 8-25 [facility] Comment on above: Performed By: #### C BCDIF, BMP ####[place] [phone] CBC and Differentialon 04-10 Abs Baso <0.03 Normal <0.11 [facility] Comment on above: Performed By: #### C BCDIF, BMP #### [place] [phone] Abs Mccormick 0.55 k/uL Normal <0.87 [facility] Comment on above: Performed By: #### C BCDIF, BMP #### [place] [address] Abs Neut 13.05 k/uL High 1.45-7.50 [facility] Comment on above: Performed By: #### C BCDIF, BMP #### [place] [address] Basophils/100 WBC (Bld) 0.1 % Normal [facility] Comment on above: Performed By: #### C BCDIF, BMP #### [place] [address] DTYPE Auto Diff Normal [facility] Comment on above: Performed By: #### C BCDIF, BMP #### [place] [address] Eosinophils #/vol (Bld) 10*3/uL Normal <0.46 [facility] Comment on above: Performed By: #### C BCDIF, BMP #### [place] [address] Eosinophils/100 WBC (Bld) 0.0 % Normal [facility] Comment on above: Performed By: #### C BCDIF, BMP #### [place] [address] Erythrocyte distribution width Ratio (RBC) 13.1 % Normal 11.5-15.0 [facility] Comment on above: Performed By: #### C BCDIF, BMP #### [place] [address] Hematocrit Volume Fraction (Bld) 40.9 % Normal 36.0-46.0 [facility] Comment on above: Performed By: #### C BCDIF, BMP #### [place] [address] Hemoglobin mass conc (Bld) 13.8 g/dL Normal 11.5-15.5 [facility] Comment on above: Performed By: #### C BCDIF, BMP #### [place] [phone] Lymphocytes #/vol (Bld) 1.17 10*3/uL Normal 1.00-4.00 [facility] Comment on above: Performed By: #### C BCDIF, BMP #### [place] [phone] Lymphocytes/100 WBC (Bld) 7.9 % Normal [facility] Comment on above: Performed By: #### C BCDIF, BMP #### [place] [phone] MCH Entitic mass (RBC) 31.6 pG Normal 26.0-34.0 [facility] Comment on above: Performed By: #### C BCDIF, BMP #### [place] [phone] MCHC mass conc (RBC) 33.7 g/dL Normal 30.5-36.0 [facility] Comment on above: Performed By: #### C BCDIF, BMP #### [place] [phone] MCV Entitic volume (RBC) 93.6 fL Normal 80.0-100.0 [facility] Comment on above: Performed By: #### C BCDIF, BMP #### [place] [phone] Monocytes/100 WBC (Bld) 3.7 % Normal [facility] Comment on above: Performed By: #### C BCDIF, BMP #### [place] [phone] Neutrophils/100 WBC (Bld) 88.3 % Normal [facility] Comment on above: Performed By: #### C BCDIF, BMP #### [place] [phone] Platelet mean volume Entitic volume (Bld) 9.8 fL Normal 9.0-12.7 [facility] Comment on above: Performed By: #### C BCDIF, BMP #### [place] [phone] Platelets #/vol (Bld) 417 10*3/uL High 150-400 [facility] Comment on above: Performed By: #### C BCDIF, BMP #### [place] [phone] RBC #/vol (Bld) 4.37 10*6/uL Normal 3.90-5.20 [facility] Comment on above: Performed By: #### C BCDIF, BMP #### [place] [phone] WBC #/vol (Bld) 14.78 10*3/uL High 3.70-11.00 [facility] Comment on above: Performed By: #### C BCDIF, BMP #### [place] [phone] HISTORY PHYSICALon 9 HISTORY PHYSICAL HNO ID: [id number] Author: Kylee Houston (Fel) Service: Colorectal Author [...] April 10, 2018 TIME: 8:21 AM PAGER: Normal [facility] Magnesiumon 04-10-2018 Magnesium mass conc 1.8 mg/dL Normal 1.7-2.6 [facility] Comment on above: Performed By: #### M G1, PHOS ####[place] [address] [place], [place] [phone] NURSING PROGon 04-10-2018 Protein mass conc HNO ID: [id number] Author: Rosemary Roach (Rn) NORBERTO Dobbs Service: (none) Author Type: Registered Nurse Type: Nursing Progress Note Filed: 04/10/2018 2:11 PM Note Text: Nursing Progress Note Patient Name: Paul Davenport Patient Location: [place] [address]/[place] [address] Transfer Note: Patient transferred into room/unit PK326 in stable condition. Actions taken: No futher actions taken at this time. Will continue to monitor and check with patient. This note was completed by: Rosemary Dobbs RN [facility] Protein mass conc HNO ID: [id number] Author: Kylee CalderonRn) NORBERTO Patel Service: Nursing Author Type: Registered Nurse Type: Nursing Progress Note Filed: 04/10/2018 12:23 PM Note Text: Patient's family updated at 9:30 AM about status of procedure per Dr. Pickett pt's family updated at 1125 Patient's family updated at 12:23 PM about status of procedure per Dr. Pickett [facility] OPERATIVE NOon 04-10-2018 OPERATIVE NO HNO ID: [id number] Author: Joey Pickett Service: Colorectal Author Type: Physician Type: Operative Report Filed: 04/15/2018 10:52 AM Note Text: [facility] - Operative Report PAUL DAVENPORT : 1975 AGE: 43. SEX: F PATIENT TYPE: I HOSP SVC: CORS LOCATION: [facility] ATTENDING PHYSICIAN: Joey Pickett M.D. CSN NUMBER: [id number] DATE OF SURGERY/PROCEDURE: 04/10/2018 INCISION/PROCEDURE START TIME: 0903 hours. INCISION CLOSE/PROCEDURE END TIME: 1230 hours. PREOPERATIVE DIAGNOSIS: Full-thickness rectal prolapse. POSTOPERATIVE DIAGNOSIS: Full-thickness rectal prolapse. SURGEON: Joey Pickett M.D. BUSINESS PRACTICES SUPERVISOR: Dr. Kylee Houston. SURGERY/PROCEDURE: Laparoscopic rectopexy with [...] carried dissection down the lateral stalks approximately usp down on either side into presacral space, [...] taken to recovery room. Joey Pickett M.D. JAT:[id number] /[id number] Normal [facility] PROGRESSon 04-10-2018 Protein mass conc HNO ID: [id number] Author: Jose Manuel Mckeon) Carolin Service: Colorectal Author Type: Resident Type: Progress [...] Jose Manuel Coe MD April 10, 2018 [facility] Phosphoruson 04-10-2018 Phosphate mass conc 3.8 mg/dL Normal 2.5-4.5 [facility] Comment on above: Performed By: #### Doc Major PHOSerg ####[facility] [place], [place] [phone] HISTORY PHYSICALon 9 HISTORY PHYSICAL HNO ID: [id number] Author: Josef Armstrong) NORBERTO Salcido Service: Anesthesiology Author Type: Registered [...] Salcido RN April 04, 2018 3:37 PM [facility] HOSPon 03-21-2018 HOSP Patient:Alcira Davenport Lashae MRN: Height:5' 5(1.651 m) Weight:180 lb (81.647 [...] 47.4 % 04/03/2018 46.0 36.0 Progress Notes ([facility]): Paul Angeles MD 04/02/2018 11:37 [...] PREDNISONE- TAPER OVER 10 DAYS Progress Notes ([facility]): Lilly Sanchez Ma 03/27/2018 10:02 AM Signed Pharmacy requesting refills as follows: Requesting 30-Day supply. [facility] Pending Prescriptions Disp Refills LORAZEPAM 1 MG [...] substitute 0.5 mg tab MD Mikki Dominguez [facility] 03/27/2018 5:48 PM Signed [facility] Ativan was called in But states that they never received a response back that the 0.5 mg substitution was okay to fill Please advise if 0.5 mg okay, if okay please re-send to pharmacy Please advise [facility] Palu Angeles MD 03/28/2018 6:16 AM Signed Patient's [...] Dominguez Ma 03/28/2018 9:57 AM Signed [facility] filling the 0.5mg tabs Left message notifying Pt Baylee Garcia Ma [facility] Established Visit (Gastroent erology)on 10-30-2018 Established Visit (Gastroenterology) Chief ComplaintFollow up History of Present IllnessThiserg is a 42yo woman with a history [...] Current Meds ARIPiprazole 20 MG Oral Tablet;Therapy: 14Feb2017 to Recorded Rx By: SORAYA; Dispense: 30 [...] PM Vitals Vital Signs Recorded: 17Dec2017 02:52PMHeart Cryp96Gwxkorsniam12Ussch tdx183, RUE, DwnvrtmUdtdwdlnl82, RUE, SittingBlood Pressure Cuff SizeLargeHeight5 ft 5 osGhiugw910 lb 2 ozBMI Mthfymebgz20.97BSA Calculated1.94O2 Hcfjjolboj55, RAPain Scale0 Physical ExamGen: AANDOx3, NADEyes: no scleral icterusENT: OP clearCV: RRR no m/r/gResp: CTAB no w/r/rAbd: Soft, NT, ND, normoactive BSExt: WWP, no edemaPsych: appropriate mood and affect Diagnoses/Problems Gastroesophageal reflux disease, esophagitis presence not specified (530.81) (K21.9) 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) OrdersChronic diarrhea of unknown origin Colonoscopy; Status:Hold For - Scheduling; Requested for:17Dec2017; Perform:[facility]; Order Comments:EGD and colonoscopy with MAC; Due:17Mar2018;Ordered; For:Chronic diarrhea of unknown origin; Ordered By:Jaspreet Early;GI Mental Competence : Yes-pt mentally competent to provide consentIndications : Chronic diarrhea (> 1 mo)Gastroesophageal reflux disease, esophagitis presence not specified Endoscopy - Upper GI; Status:Hold For - Scheduling; Requested for:17Dec2017; Perform:[facility]; Order Comments:EGD and colonoscopy with MAC; [...] of Encounter MedsARIPiprazole 20 MG Oral Tablet;Therapy: [id number] to RecordedFLUoxetine HCl - 60 MG Oral Tablet;Therapy: 30Apr2017 to RecordedLyrica 225 MG Oral Capsule;Therapy: 28Feb2017 to RecordedPantoprazole Sodium 40 MG Oral Tablet Delayed Release;Therapy: 30Apr2017 to RecordedPropranolol HCl - 20 MG Oral Tablet;Therapy: 17May2017 to Recorded Signatures Electronically signed by : Jaspreet Early MD,; Dec 18 2017 8:03AM EST (Author) Normal [facility] Initial Visit (Gastroenterol ogy)on 12-17-2017 Initial Visit (Gastroenterology) No report was sent Normal [facility] Reducing Substances, Stoolon 12-07-2017 Reducing Substances, Stool 1+(0.5 g/dL) Abnormal Negative [facility] Comment on above: Order Comment: If yo u do not want test(STLPP)PCR panel to beperformed on this sample please [phone], select option 4 addon lineand request that the STLPP test be cancelledand a (STLC)stool culture be performed at thereference laboratory. Result Comment: [facility] Site: [employer] [facility] - [address] [place] [phone] Performed By: #### C BC, CMP12, CRP, TSH, IGA, TGLIGA, TGLIGG ####[facility] [place] [address] Calprotectin, Fecalon 2017 Protein mass conc 30 ug/g Normal <=50 [facility] Comment on above: Order Comment: If yo u do not want test(STLPP)PCR panel to beperformed on this sample please [phone], select option 4 addon lineand request that the STLPP test be cancelledand a (STLC)stool culture be performed at thereference laboratory. Result Comment: Sarbjit tional testing, CALPRO (Test Name), requested on a previouslysubmitted specimen. Repeated temperature fluctuations mayadversely affect the validity of results for some assays.Interpretation of the results for this assay should take thispotential into consideration.INTERPRETIVE INFORMATION: Calprotectin, Fecal50 ug/g or less: Ekxaxz08-451 ug/g: Borderline elevated, test should tatiana-evaluated in 4-6 weeks.121 ug/g or greater: AbnormalPerformed by [facility],[address] [place] [address] hfx.[employer], Nacho Trivedi MD - Lab. DirectorPerforming Site: [facility] - [address] [place] [address] Performed By: #### C BC, CMP12, CRP, TSH, IGA, TGLIGA, TGLIGG ####[facility] [place] [address] Ova and Parasite Screen.on Cryptosporidium Antigen Negative Normal [facility] Comment on above: Order Comment: If yo u do not want test(STLPP)PCR panel to beperformed on this sample please [phone], select option 4 addon lineand request that the STLPP test be cancelledand a (STLC)stool culture be performed at thereference laboratory. Result Comment: Perf orming Site: [facility], [address] [place], [place] [address] Performed By: #### C DPCR, GIACR, STLPP, CALPRO, STRED, MISCB ####[facility] [place], [place] [id number] Giardia Antigen Negative Normal [facility] Comment on above: Order Comment: If yo u do not want test(STLPP)PCR panel to beperformed on this sample please [phone], select option 4 addon lineand request that the STLPP test be cancelledand a (STLC)stool culture be performed at thereference laboratory. Result Comment: Perf orming Site: [facility], [facility] [address] [place] [address] Performed By: #### C DPCR, GIACR, STLPP, CALPRO, STRED, MISCB ####[address] [address] Tranglutaminase IgGon 2017 Tranglutaminase IgG <1 Normal 0-14 [facility] Comment on above: Result Comment: Fals e negative Tissue Transglutaminase Antibody, IgGresults can occur in patients already adhering to agluten-free diet. Tissue Transglutaminase Antibody,IgA is the preferred test for screening patients withsuspected Celiac Disease.Performing Site: [place] [address] [place] [address] Performed By: #### C BC, CMP12, CRP, TSH, IGA, TGLIGA, TGLIGG ####[address] [id number] Transglutaminae IgAon 2017 Transglutaminae IgA <1 Normal 0-14 [facility] Comment on above: Result Comment: Sheri ac disease is unlikely. False negative TissueTransglutaminase Antibody, IgA results can occur inapproximately 10% of patients with celiac disease,patients already adhering to a gluten-free diet, orpatients with IgA deficiency.Performing Site: [place] [address] [place] [address] Performed By: #### C BC, CMP12, CRP, TSH, IGA, TGLIGA, TGLIGG ####[facility] [place], [place] [id number] Stool Pathogens PCRon 2017 Campylobacter Gp. NOT DETECTED Normal [facility] Comment on above: Order Comment: If yo u do not want test(STLPP)PCR panel to beperformed on this sample please [phone], select option 4 addon lineand request that the STLPP test be cancelledand a (STLC)stool culture be performed at thereference laboratory. Performed By: #### C DPCR, GIACR, STLPP, CALPRO, STRED, MISCB ####[address] [id number] Norovirus GI/GII NOT DETECTED Normal [facility] Comment on above: Order Comment: If yo u do not want test(STLPP)PCR panel to beperformed on this sample please [phone], select option 4 addon lineand request that the STLPP test be cancelledand a (STLC)stool culture be performed at thereference laboratory. Performed By: #### C DPCR, GIACR, STLPP, CALPRO, STRED, MISCB ####[facility] [place] [id number] Rotavirus A NOT DETECTED Normal [facility] Comment on above: Order Comment: If yo u do not want test(STLPP)PCR panel to beperformed on this sample please [phone], select option 4 addon lineand request that [...] for otherenteric agents in this panel.Performing Site: [place] [id number] [place] [address] Performed By: #### C DPCR, GIACR, STLPP, CALPRO, STRED, MISCB ####[facility] [place] [address] Salmonella Sp. NOT DETECTED Normal NOTDECTED [facility] Comment on above: Order Comment: If yo u do not want test(STLPP)PCR panel to beperformed on this sample please [phone], select option 4 addon lineand request that the STLPP test be cancelledand a (STLC)stool culture be performed at thereference laboratory. Performed By: #### C DPCR, GIACR, STLPP, CALPRO, STRED, MISCB ####[address] [address] Shiga Toxin 1 NOT DETECTED [facility] Comment on above: Order Comment: If yo u do not want test(STLPP)PCR panel to beperformed on this sample please [phone], select option 4 addon lineand request that the STLPP test be cancelledand a (STLC)stool culture be performed at thereference laboratory. Performed By: #### C DPCR, GIACR, STLPP, CALPRO, STRED, MISCB ####[facility] [place] [address] Shiga Toxin 2 NOT DETECTED Normal [facility] Comment on above: Order Comment: If yo u do not want test(STLPP)PCR panel to beperformed on this sample please [phone], select option 4 addon lineand request that the STLPP test be cancelledand a (STLC)stool culture be performed at thereference laboratory. Performed By: #### C DPCR, GIACR, STLPP, CALPRO, STRED, MISCB ####[address] [id number] Shigella Sp. NOT DETECTED Normal [facility] Comment on above: Order Comment: If yo u do not want test(STLPP)PCR panel to beperformed on this sample please [phone], select option 4 addon lineand request that the STLPP test be cancelledand a (STLC)stool culture be performed at thereference laboratory. Performed By: #### C DPCR, GIACR, STLPP, CALPRO, STRED, MISCB ####[facility] [place] [address] [employer] NOT DETECTED Normal [facility] Comment on above: Order Comment: If yo u do not want test(STLPP)PCR panel to beperformed on this sample please [phone], select option 4 addon lineand request that the STLPP test be cancelledand a (STLC)stool culture be performed at thereference laboratory. Performed By: #### C DPCR, GIACR, STLPP, CALPRO, STRED, MISCB ####[address] [address] [employer] NOT DETECTED Normal [facility] Comment on above: Order Comment: If yo u do not want test(STLPP)PCR panel to beperformed on this sample please [phone], select option 4 addon lineand request that the STLPP test be cancelledand a (STLC)stool culture be performed at thereference laboratory. Performed By: #### C DPCR, GIACR, STLPP, CALPRO, STRED, MISCB ####[address] [address] C diff DNA Amplification Ass wade 11-17-2017 C diff DNA Amplification Assay NOT DETECTED [facility] Comment on above: Order Comment: If yo u do not want test(STLPP)PCR panel to beperformed on this sample please [phone], select option 4 addon lineand request that [...] more than once per 7 days.Performing Site: [facility] - [address] [place] [address] Performed By: #### C DPCR, GIACR, STLPP, CALPRO, STRED, MISCB ####[address] [address] Immunoglobulin Aon 8 Immunoglobulin A 240 mg/dL Normal 70-400 [facility] Comment on above: Result Comment: MONO CLONAL PROTEINS MAY CAUSE FALSELY LOWRESULTS IN THIS ASSAY. SERUM PROTEINELECTROPHORESIS SHOULD BE DONE THEFIRST TEST TO EVALUATE MONOCLONAL GAMMOPATHY.Performing Site: [facility] - [address] [place] [address] Performed By: #### C BC, CMP12, CRP, TSH, IGA, TGLIGA, TGLIGG ####[address] [address] Miscellaneous Teston 018 Result Normal [facility] Comment on above: Order Comment: No sp ecimen received.MIS:UH-code:ELCST electrolyte panel,stool Performed By: #### C BC, CMP12, CRP, TSH, IGA, TGLIGA, TGLIGG ####[address] [address] Test Name Normal [facility] Comment on above: Order Comment: No sp ecimen received.MISC:UH-code:ELCST electrolyte panel,stool Performed By: #### C BC, CMP12, CRP, TSH, IGA, TGLIGA, TGLIGG ####[address] [address] C-Reactive Proteinon 018 CRP mass conc 0.4 mg/dL Normal <1.0 [facility] Comment on above: Result Comment: Juwan veronica note new reference range and units of measureeffective July 10, 2017. Performed By: #### C BC, CMP12, CRP, TSH, IGA, TGLIGA, TGLIGG ####[facility] [place] [address] Complete Blood Count w/diff $$on 11-15-2017 Basophils Auto #/vol (Bld) 0.0 10 /uL Low 0.04-0.9 [facility] Comment on above: Performed By: #### C BC, CMP12, CRP, TSH, IGA, TGLIGA, TGLIGG ####[address] [address] Basophils/100 WBC Auto (Bld) 0 % Normal 0-1 [facility] Comment on above: Performed By: #### C BC, CMP12, CRP, TSH, IGA, TGLIGA, TGLIGG ####[facility] [place] [address] Eosinophils Auto #/vol (Bld) 0.0 10 3/uL Low 0.03-0.6 [facility] Comment on above: Performed By: #### C BC, CMP12, CRP, TSH, IGA, TGLIGA, TGLIGG ####[address] [address] Eosinophils/100 WBC Auto (Bld) 0 % Normal 0-3 [facility] Comment on above: Performed By: #### C BC, CMP12, CRP, TSH, IGA, TGLIGA, TGLIGG ####[address] [address] Erythrocyte distribution width Auto Ratio (RBC) 12.7 % Normal 11.5-14.5 [facility] Comment on above: Performed By: #### C BC, CMP12, CRP, TSH, IGA, TGLIGA, TGLIGG ####[address] [address] Hematocrit Auto Volume Fraction (Bld) 44.7 % Normal 35-47 [facility] Comment on above: Performed By: #### C BC, CMP12, CRP, TSH, IGA, TGLIGA, TGLIGG ####[address] [address] Hemoglobin mass conc (Bld) 15.1 g/dL Normal 12.0-16.0 [facility] Comment on above: Performed By: #### C BC, CMP12, CRP, TSH, IGA, TGLIGA, TGLIGG ####[address] [address] Immature Gran# (Auto) 0.1 10 3/uL Normal [facility] Comment on above: Performed By: #### C BC, CMP12, CRP, TSH, IGA, TGLIGA, TGLIGG ####[address] [address] Immature granulocytes #/vol (Bld) 0.7 % Normal 0.0-0.9 [facility] Comment on above: Performed By: #### C BC, CMP12, CRP, TSH, IGA, TGLIGA, TGLIGG ####[address] [address] Lymphocytes Auto #/vol (Bld) 1.5 10 3/uL Normal 1-3.5 [facility] Comment on above: Performed By: #### C BC, CMP12, CRP, TSH, IGA, TGLIGA, TGLIGG ####[address] [address] Lymphocytes/100 WBC Auto (Bld) 9 % Low 24-44 [facility] Comment on above: Performed By: #### C BC, CMP12, CRP, TSH, IGA, TGLIGA, TGLIGG ####[address] [address] MCH Auto Entitic mass (RBC) 31.9 pg Normal 27-34 [facility] Comment on above: Performed By: #### C BC, CMP12, CRP, TSH, IGA, TGLIGA, TGLIGG ####[address] [address] MCH Auto Entitic mass (RBC) 33.8 g/dL Normal 33-37 [facility] Comment on above: Performed By: #### C BC, CMP12, CRP, TSH, IGA, TGLIGA, TGLIGG ####[address] [address] MCV Auto Entitic volume (RBC) 94.5 fL Normal 80-100 [facility] Comment on above: Performed By: #### C BC, CMP12, CRP, TSH, IGA, TGLIGA, TGLIGG ####[address] [address] Monocytes Auto #/vol (Bld) 0.5 10 3/uL Normal 0.04-0.9 [facility] Comment on above: Performed By: #### C BC, CMP12, CRP, TSH, IGA, TGLIGA, TGLIGG ####[address] [address] Monocytes/100 WBC Auto (Bld) 3 % Normal 1-8 [facility] Comment on above: Performed By: #### C BC, CMP12, CRP, TSH, IGA, TGLIGA, TGLIGG ####[address] [address] Neutrophils Auto #/vol (Bld) 15.4 10 3/uL High 1.8-7.0 [facility] Comment on above: Performed By: #### C BC, CMP12, CRP, TSH, IGA, TGLIGA, TGLIGG ####[address] [address] Neutrophils/100 WBC Auto (Bld) 88 % High 42-76 [facility] Comment on above: Performed By: #### C BC, CMP12, CRP, TSH, IGA, TGLIGA, TGLIGG ####[address] [address] Nucleated RBC/100 WBC Ratio (Bld) 0.0 % Normal 0.0-0.0 [facility] Comment on above: Performed By: #### C BC, CMP12, CRP, TSH, IGA, TGLIGA, TGLIGG ####[address] [address] Platelet mean volume Auto Entitic volume (Bld) 10.1 fL Normal 7.4-10.4 [facility] Comment on above: Performed By: #### C BC, CMP12, CRP, TSH, IGA, TGLIGA, TGLIGG ####[address] [address] Platelets Auto #/vol (Bld) 433 10 3/uL High 150-400 [facility] Comment on above: Performed By: #### C BC, CMP12, CRP, TSH, IGA, TGLIGA, TGLIGG ####[address] [address] RBC Auto #/vol (Bld) 4.73 10 6/uL Normal 4.2-5.4 [facility] Comment on above: Performed By: #### C BC, CMP12, CRP, TSH, IGA, TGLIGA, TGLIGG ####[address] [address] WBC Auto #/vol (Bld) 17.5 10 3/uL High 4.0-11.0 [facility] Comment on above: Performed By: #### C BC, CMP12, CRP, TSH, IGA, TGLIGA, TGLIGG ####[facility] [place] [address] Comprehensive Metabolic Pane kong 11-15-2017 Albumin mass conc 4.1 g/dL Normal 3.4-5.0 [facility] Comment on above: Performed By: #### C BC, CMP12, CRP, TSH, IGA, TGLIGA, TGLIGG ####[address] [address] ALP enzyme act/vol 81 U/L Normal 33-110 [facility] Comment on above: Result Comment: Plea se note new reference range as of June. Performed By: #### C BC, CMP12, CRP, TSH, IGA, TGLIGA, TGLIGG ####[address] [address] ALT enzyme act/vol 16 U/L Normal 4-45 [facility] Comment on above: Result Comment: Plea se note new reference range as of June. Performed By: #### C BC, CMP12, CRP, TSH, IGA, TGLIGA, TGLIGG ####[address] [address] Anion gap 3 molar conc 15.7 mmol/L Normal 10-20 [facility] Comment on above: Performed By: #### C BC, CMP12, CRP, TSH, IGA, TGLIGA, TGLIGG ####[address] [address] AST enzyme act/vol 13 U/L Normal 9-39 [facility] Comment on above: Result Comment: Plea se note new reference range as of June. Performed By: #### C BC, CMP12, CRP, TSH, IGA, TGLIGA, TGLIGG ####[address] [address] Bilirubin Ql (U) 0.3 mg/dL Normal 0.0-1.2 [facility] Comment on above: Performed By: #### C BC, CMP12, CRP, TSH, IGA, TGLIGA, TGLIGG ####[facility] [place] [address] Calcium mass conc 8.9 mg/dL Normal 8.6-10.3 [facility] Comment on above: Result Comment: Plea se note new reference range as of June. Performed By: #### C BC, CMP12, CRP, TSH, IGA, TGLIGA, TGLIGG ####[facility] [place] [address] Chloride molar conc 105 mmol/L Normal 98-107 [facility] Comment on above: Performed By: #### C BC, CMP12, CRP, TSH, IGA, TGLIGA, TGLIGG ####[facility] [place] [address] CO2 molar conc 22 mmol/L Normal 21-32 [facility] Comment on above: Performed By: #### C BC, CMP12, CRP, TSH, IGA, TGLIGA, TGLIGG ####[facility] [place] [address] Creatinine mass conc 0.82 mg/dL Normal 0.50-1.05 [facility] Comment on above: Result Comment: Plea se note new reference range as of June. Performed By: #### C BC, CMP12, CRP, TSH, IGA, TGLIGA, TGLIGG ####[facility] [place] [address] GFR () >60 Normal [facility] Comment on above: Performed By: #### C BC, CMP12, CRP, TSH, IGA, TGLIGA, TGLIGG ####[facility] [place] [address] GFR (Non ) >60 Normal [facility] Comment on above: Result Comment: eGFR Units of measure: mL/min/1.73 m 2 Performed By: #### C BC, CMP12, CRP, TSH, IGA, TGLIGA, TGLIGG ####[address] [address] Glucose mass conc 96 mg/dL Normal 74-99 [facility] Comment on above: Performed By: #### C BC, CMP12, CRP, TSH, IGA, TGLIGA, TGLIGG ####[address] [address] Potassium molar conc 4.7 mmol/L Normal 3.5-5.3 [facility] Comment on above: Performed By: #### C BC, CMP12, CRP, TSH, IGA, TGLIGA, TGLIGG ####[address] [address] Protein mass conc 7.0 g/dL Normal 6.4-8.2 [facility] Comment on above: Performed By: #### C BC, CMP12, CRP, TSH, IGA, TGLIGA, TGLIGG ####[address] [address] Sodium molar conc 138 mmol/L Normal 136-145 [facility] Comment on above: Performed By: #### C BC, CMP12, CRP, TSH, IGA, TGLIGA, TGLIGG ####[address] [address] Urea nitrogen mass conc (Bld) 24 mg/dL High 6-23 [facility] Comment on above: Result Comment: Plelashae veronica note new reference range as of June. Performed By: #### C BC, CMP12, CRP, TSH, IGA, TGLIGA, TGLIGG ####[address] [address] Initial Visit (Gastroenterol ogy)on 11-15-2017 Initial Visit (Gastroenterology) Chief ComplaintNew patient visit for Chronic Diarrhea and gas. Referred by Dr. Steven Angeles. History of Present IllnessThiserg is a pleasant 42-year-old woman who presents [...] significantly and denies any other herbal or eyht-uuf-wbfzpuk supplements. She was initially evaluated by her [...] has been very helpful. 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) Bloating (787.3) (R14.0) OrdersChronic diarrhea of unknown origin C Reactive Protein, Serum; Source:Blood (D); Status:Active; Requestedfor:15Nov2017; Perform:Lab Services - Lab To Draw (Blood Test); Due:38Ixn4342;Ordered; For:Chronic diarrhea of unknown origin; Ordered By:Jaspreet Early; Calprotectin, Fecal; Status:Active; Requested for:15Nov2017; Perform:Lab Services - Lab To Draw (Non-Blood Test); Due:05Ycg1613;Ordered; For:Chronic diarrhea of unknown origin; Ordered By:Jaspreet Early; Clostridium Difficile Toxin, PCR; Source:Culture; Status:Active; Requestedfor:15Nov2017; Perform:Lab Services - Lab To Draw (Non-Blood Test); Due:66Rpa6053;Ordered; For:Chronic diarrhea of unknown origin; Ordered By:Jaspreet Early; Complete Blood Count + Differential; Source:Blood (D); Status:Active; Requestedfor:89Ysn8309; Perform:Lab Services - Lab To Draw (Blood Test); Due:19Are1454;Ordered; For:Chronic diarrhea of unknown origin; Ordered By:Jaspreet Early; Comprehensive Metabolic Panel; Status:Active; Requested for:15Nov2017; Perform:Lab Services - Lab To Draw (Blood Test); Due:41Dch1195;Ordered; For:Chronic diarrhea of unknown origin; Ordered By:Jaspreet Early; Electrolyte Panel, Stool; Status:Active; Requested for:83Xmi5987; Perform:Lab Services - Lab To Draw (Non-Blood Test); Due:06Guj6222;Ordered; For:Chronic diarrhea of unknown origin; Ordered By:Jaspreet Early; Immunoglobulin A Level, Serum; Source:Blood (BLD); Status:Active; Requestedfor:37Hfu2706; Perform:Lab Services - Lab To Draw (Blood Test); Due:95Rfs8557;Ordered; For:Chronic diarrhea of unknown origin; Ordered By:Jaspreet Early; Ova and Parasite + Giardia/Crypto Ag; Status:Active; Requested for:60Uaw9715; Perform:Lab Services - Lab To Draw (Non-Blood Test); Due:54Tlg6852;Ordered; For:Chronic diarrhea of unknown origin; Ordered By:Jaspreet Early; STOOL PATHOGEN PCR PANEL; Status:Active; Requested for:60Yur5997; Perform:Lab Services - Lab To Draw (Non-Blood Test); Due:83Zxd5080;Ordered; For:Chronic diarrhea of unknown origin; Ordered By:Jaspreet Early; Stool Reducing Substance Screen; Status:Active; Requested for:14Igw8767; Perform:Lab Services - Lab To Draw (Non-Blood Test); Due:58Zjz2235;Ordered; For:Chronic diarrhea of unknown origin; Ordered By:Jaspreet Early; TSH - Thyroid Stimulating Hormone, Serum; Source:Blood (D); Status:NeedInformation - ABN Disposition; Requested for:28Igf1809; Perform:Lab Services - Lab To Draw (Blood Test); Due:17Mys9722;Ordered; For:Chronic diarrhea of unknown origin; Ordered By:Jaspreet Early; TTG Antibody IgA with Titer; Source:Blood (D); Status:Active; Requestedfor:60Hpt9705; Perform:Lab Services - Lab To Draw (Blood Test); Due:37Smo2446;Ordered; For:Chronic diarrhea of unknown origin; Ordered By:Jaspreet [...] Nov 15 2017 4:39PM EST (Author) Normal [facility] Thyroid Stimulating Hormoneo n 11-15-2017 Thyrotropin Qn 0.60 m[IU]/L Normal 0.44-3.98 [facility] Comment on above: Result Comment: --- 11/15/172030 ---TSH previously reported as: 0.59 mIU/L Performed By: #### C BC, CMP12, CRP, TSH, IGA, TGLIGA, TGLIGG ####[facility] [place] [address] Vital Signs Date Time Vital Sign Value Performing Clinician Facility 09-29-2024 04:50-0400 Body temperature 97.5 [degF] Riky Chew DO Work Phone: [facility] 09-29-2024 04:50-0400 Diastolic blood pressure 87 mm[Hg] Riky Chew DO Work Phone: [facility] 09-29-2024 04:50-0400 Heart rate 81 /min Riky Chew DO Work Phone: [facility] 09-29-2024 04:50-0400 Respiratory rate 18 /min Riky Chew DO Work Phone: 1(662)[phone] [place] [address] 09-29-2024 04:50-0400 SaO2% (BldA) [Mass fraction] 96 % Riky Chew DO Work Phone: [phone] [place] [address] 09-29-2024 04:50-0400 Systolic blood pressure 121 mm[Hg] Riky Chew DO Work Phone: 7(281)[phone] [place] [address] 09-28-2024 23:41-0400 Body height 162.6 cm Riky Chew DO Work Phone: [phone] [place] [address] 09-28-2024 23:41-0400 Body mass index (BMI) [Ratio] 45.14 kg/m2 Riky Chew DO Work Phone: [phone] [place] [address] 09-28-2024 23:41-0400 Body weight 119.3 kg Riky Chew DO Work Phone: [facility] 09-06-2024 14:43-0400 SaO2% (BldA) [Mass fraction] 99 % VASQUEZ BRUSH [facility] Comment on above: Order Comment: Specimen Type: ARTERIAL B LOOD SPECIMENOrdering Facility: [facility] Address: [address] [place] [address] Performed By: #### A LLBG ####[facility] LABCLIA [id number] [address] [place] 09-06-2024 11:35-0400 SaO2% (BldA) [Mass fraction] 100 % VASQUEZ BRUSH [facility] Comment on above: Order Comment: Specimen Type: ARTERIAL B LOOD SPECIMENOrdering Facility: [facility] Address: [address] [place] [address] Performed By: #### A LLBG ####[facility] LABIA [id number] [address] [address] [facility] 09-06-2024 10:10-0400 SaO2% (BldA) [Mass fraction] 97 % VASQUEZ BRUSH [facility] Comment on above: Order Comment: Specimen Type: ARTERIAL B LOOD SPECIMENOrdering Facility: [facility] Address: [address] [place], [place] [address] Performed By: #### A LLBG ####[facility] [id number] [place] [id number] [facility] 09-06-2024 07:44-0400 SaO2% (BldA) [Mass fraction] 96 % VASQUEZ BRUSH [facility] Comment on above: Order Comment: Specimen Type: ARTERIAL B LOOD SPECIMENOrdering Facility: [facility] Address: [address] [place], [place] [address] Performed By: #### A LLBG ####[facility] [id number] [place] [id number] [facility] 09-06-2024 05:44-0400 SaO2% (BldA) [Mass fraction] 99 % VASQUEZ BRUSH [facility] Comment on above: Order Comment: Specimen Type: ARTERIAL B LOOD SPECIMENOrdering Facility: [facility] Address: [address] [place], [place] [address] Performed By: #### A LLBG ####[facility] LABIA [id number] [address] [address] [facility] 09-06-2024 03:34-0400 SaO2% (BldA) [Mass fraction] 99 % VASQUEZ BRUSH [facility] Comment on above: Order Comment: Specimen Type: ARTERIAL B LOOD SPECIMENOrdering Facility: [facility] Address: [address] [place], [place] [address] Performed By: #### A LLBG ####[facility] LABIA [id number] [address] [address] [place] 09-06-2024 01:58-0400 SaO2% (BldA) [Mass fraction] 99 % VASQUEZ BRUSH [facility] Comment on above: Order Comment: Specimen Type: ARTERIAL B LOOD SPECIMENOrdering Facility: [facility] Address: [address] [place], [place] [address] Performed By: #### A LLBG ####[facility] LABIA [id number] [address] [address] [place] 09-05-2024 23:34-0400 SaO2% (BldA) [Mass fraction] 99 % VASQUEZ BRUSH [facility] Comment on above: Order Comment: Specimen Type: ARTERIAL B LOOD SPECIMENOrdering Facility: [facility] Address: [address] [place], [place] [address] Performed By: #### A LLBG ####[facility] [id number] [place] [id number] [facility] 09-05-2024 21:39-0400 SaO2% (BldA) [Mass fraction] 99 % VASQUEZ BRUSH [facility] Comment on above: Order Comment: Specimen Type: ARTERIAL B LOOD SPECIMENOrdering Facility: [facility] Address: [address] [place], [place] [address] Performed By: #### A LLBG ####[facility] [id number] [address] [address] [facility] [place] 09-05-2024 19:43-0400 SaO2% (BldA) [Mass fraction] 98 % VASQUEZ BRUSH [facility] Comment on above: Order Comment: Specimen Type: ARTERIAL B LOOD SPECIMENOrdering Facility: [facility] Address: [address] [place] [address] Performed By: #### A LLBG ####[facility] LABIA [id number] [address] [address] [facility] 09-05-2024 18:51-0400 SaO2% (BldA) [Mass fraction] 96 % VASQUEZ BRUSH [facility] Comment on above: Order Comment: Specimen Type: ARTERIAL B LOOD SPECIMENOrdering Facility: [facility] Address: [address] [place] [address] Performed By: #### A LLBG ####[facility] LABIA [id number] [address] [address] [facility] 09-05-2024 16:27-0400 SaO2% (BldA) [Mass fraction] 97 % VASQUEZ BRUSH [facility] Comment on above: Order Comment: Specimen Type: ARTERIAL B LOOD SPECIMENOrdering Facility: [facility] Address: [address] [place], [place] [address] Performed By: #### A LLBG ####[facility] LABIA [id number] [place] [id number] [facility] 09-05-2024 14:17-0400 SaO2% (BldA) [Mass fraction] 98 % VASQUEZ BRUSH [facility] Comment on above: Order Comment: Specimen Type: ARTERIAL B LOOD SPECIMENOrdering Facility: [facility] Address: [address] [place], [place] [address] Performed By: #### A LLBG ####[facility] LABIA [id number] [address] [address] [facility] 09-05-2024 12:59-0400 SaO2% (BldA) [Mass fraction] 99 % VASQUEZ BRUSH [facility] Comment on above: Order Comment: Specimen Type: ARTERIAL B LOOD SPECIMENOrdering Facility: [facility] Address: [address] [place], [place] [address] Performed By: #### A LLBG ####[facility] LABIA [id number] [address] [address] [facility] 09-05-2024 12:04-0400 SaO2% (BldA) [Mass fraction] 97 % VASQUEZ BRUSH [facility] Comment on above: Order Comment: Specimen Type: ARTERIAL B LOOD SPECIMENOrdering Facility: [facility] Address: [address] [place] [address] Performed By: #### A LLBG ####[facility] LABCLIA [id number] [address] [address] [facility] 09-05-2024 09:38-0400 SaO2% (BldA) [Mass fraction] 94 % VASQUEZ BRUSH [facility] Comment on above: Order Comment: Specimen Type: ARTERIAL B LOOD SPECIMENOrdering Facility: [facility] Address: [address] [place], [place] [address] Performed By: #### A LLBG ####[facility] LABIA [id number] [place] [id number] [facility] 09-05-2024 07:42-0400 SaO2% (BldA) [Mass fraction] 95 % VSAQUEZ BRUSH [facility] Comment on above: Order Comment: Specimen Type: ARTERIAL B LOOD SPECIMENOrdering Facility: [facility] Address: [address] [place], [place] [address] Performed By: #### A LLBG ####[facility] LABIA [id number] [address] [address] [facility] 09-05-2024 05:42-0400 SaO2% (BldA) [Mass fraction] 99 % VASQUEZ BRUSH [facility] Comment on above: Order Comment: Specimen Type: ARTERIAL B LOOD SPECIMENOrdering Facility: [facility] Address: [address] [place] [address] Performed By: #### A LLBG ####[facility] LABIA [id number] [address] [address] [facility] 09-05-2024 03:40-0400 SaO2% (BldA) [Mass fraction] 97 % VASQUEZ BRUSH [facility] Comment on above: Order Comment: Specimen Type: ARTERIAL B LOOD SPECIMENOrdering Facility: [facility] Address: [address] [place], [place] [address] Performed By: #### A LLBG ####[facility] LABCLIA [id number] [address] [address] [facility] 09-05-2024 01:48-0400 SaO2% (BldA) [Mass fraction] 99 % VASQUEZ BRUSH [facility] Comment on above: Order Comment: Specimen Type: ARTERIAL B LOOD SPECIMENOrdering Facility: [facility] Address: [address] [place], [place] [address] Performed By: #### A LLBG ####[facility] LABIA [id number] [place] [id number] [place] 09-05-2024 00:18-0400 SaO2% (BldA) [Mass fraction] 98 % VASQUEZ BRUSH [facility] Comment on above: Order Comment: Specimen Type: ARTERIAL B LOOD SPECIMENOrdering Facility: [facility] Address: [address] [place], [place] [address] Performed By: #### A LLBG ####[facility] LABIA [id number] [address] [address] [place] 09-04-2024 23:34-0400 SaO2% (BldA) [Mass fraction] 93 % VASQUEZ BRUSH [facility] Comment on above: Order Comment: Specimen Type: ARTERIAL B LOOD SPECIMENOrdering Facility: [facility] Address: [address] [place], [place] [address] Performed By: #### A LLBG ####[facility] LABIA [id number] [address] [address] [place] 09-04-2024 21:42-0400 SaO2% (BldA) [Mass fraction] 98 % VASQUEZ BRUSH [facility] Comment on above: Order Comment: Specimen Type: ARTERIAL B LOOD SPECIMENOrdering Facility: [facility] Address: [address] [place], [place] [address] Performed By: #### A LLBG ####[facility] [id number] [place] [id number] [facility] 09-04-2024 20:41-0400 SaO2% (BldA) [Mass fraction] 98 % VASQUEZ BRUSH [facility] Comment on above: Order Comment: Specimen Type: ARTERIAL B LOOD SPECIMENOrdering Facility: [facility] Address: [address] [place], [place] [address] Performed By: #### A LLBG ####[facility] [id number] [place] [id number] [place] 09-04-2024 19:29-0400 SaO2% (BldA) [Mass fraction] 99 % VASQUEZ BRUSH [facility] Comment on above: Order Comment: Specimen Type: ARTERIAL B LOOD SPECIMENOrdering Facility: [facility] Address: [address] [place], [place] [address] Performed By: #### A LLBG ####[facility] [id number] [place] [id number] [place] 09-04-2024 17:32-0400 SaO2% (BldA) [Mass fraction] 99 % VASQUEZ BRUSH [facility] Comment on above: Order Comment: Specimen Type: ARTERIAL B LOOD SPECIMENOrdering Facility: [facility] Address: [address] [place], [place] [address] Performed By: #### A LLBG ####[facility] [id number] [address] [address] [place] 09-04-2024 16:32-0400 SaO2% (BldA) [Mass fraction] 99 % VASQUEZ BRUSH [facility] Comment on above: Order Comment: Specimen Type: ARTERIAL B LOOD SPECIMENOrdering Facility: [facility] Address: [address] [place], [place] [address] Performed By: #### A LLBG ####[facility] LABCLIA [id number] [address] [address] [facility] 09-04-2024 15:03-0400 SaO2% (BldA) [Mass fraction] 99 % VASQUEZ BRUSH [facility] Comment on above: Order Comment: Specimen Type: ARTERIAL B LOOD SPECIMENOrdering Facility: [facility] Address: [address] [place], [place] [address] Performed By: #### A LLBG ####[facility] LABIA [id number] [place] [id number] [facility] 09-04-2024 14:03-0400 SaO2% (BldA) [Mass fraction] 99 % VASQUEZ BRUSH [facility] Comment on above: Order Comment: Specimen Type: ARTERIAL B LOOD SPECIMENOrdering Facility: [facility] Address: [address] [place], [place] [address] Performed By: #### A LLBG ####[facility] [id number] [place] [id number] [facility] 09-04-2024 12:46-0400 SaO2% (BldA) [Mass fraction] 99 % VASQUEZ BRUSH [facility] Comment on above: Order Comment: Specimen Type: ARTERIAL B LOOD SPECIMENOrdering Facility: [facility] Address: [address] [place], [place] [address] Performed By: #### A LLBG ####[facility] LABIA [id number] [address] [address] [facility] [place] 09-04-2024 12:17-0400 SaO2% (BldA) [Mass fraction] 99 % VASQUEZ BRUSH [facility] Comment on above: Order Comment: Specimen Type: ARTERIAL B LOOD SPECIMENOrdering Facility: [facility] Address: [address] [place], [place] [address] Performed By: #### A LLBG ####[facility] LABIA [id number] [address] [address] [place] 09-04-2024 10:53-0400 SaO2% (BldA) [Mass fraction] 100 % VASQUEZ BRUSH [facility] Comment on above: Order Comment: Specimen Type: ARTERIAL B LOOD SPECIMENOrdering Facility: [facility] Address: [address] [place], [place] [address] Performed By: #### A LLBG ####[facility] LABIA [id number] [address] [address] [place] 09-04-2024 10:15-0400 SaO2% (BldA) [Mass fraction] 100 % VASQUEZ BRUSH [facility] Comment on above: Order Comment: Specimen Type: ARTERIAL B LOOD SPECIMENOrdering Facility: [facility] Address: [address] [place], [place] [address] Performed By: #### A LLBG ####[facility] [id number] [place] [id number] [facility] 09-04-2024 09:44-0400 SaO2% (BldA) [Mass fraction] 100 % VASQUEZ BRUSH [facility] Comment on above: Order Comment: Specimen Type: ARTERIAL B LOOD SPECIMENOrdering Facility: [facility] Address: [address] [place] [address] Performed By: #### A LLBG ####[facility] [id number] [address] [address] [facility] [place] 09-04-2024 07:27-0400 SaO2% (BldA) [Mass fraction] 99 % VASQUEZ BRUSH [facility] Comment on above: Order Comment: Specimen Type: ARTERIAL B LOOD SPECIMENOrdering Facility: [facility] Address: [address] [place] [address] Performed By: #### A LLBG ####[facility] LABIA [id number] [address] [address] [facility] [place] 04-09-2023 20:00-0500 Body temperature 97.9 [degF] [facility] 04-09-2023 20:00-0500 Diastolic blood pressure 71 mm[Hg] [facility] 04-09-2023 20:00-0500 Heart rate 92 /min [facility] 04-09-2023 20:00-0500 Respiratory rate 18 /min [facility] 04-09-2023 20:00-0500 SaO2% (BldA) [Mass fraction] 95 % [facility] 04-09-2023 20:00-0500 Systolic blood pressure 129 mm[Hg] [facility] 04-09-2023 17:35-0500 Body height 162.56 cm [facility] 04-09-2023 17:35-0500 Body mass index (BMI) [Ratio] 43.9 kg/m2 [facility] 04-09-2023 17:35-0500 Body weight 116 kg [facility] Encounters Encounter Date Encounter Type Care Provider Facility Start: 01-01-2025 ambulatory Vasquez Brush INTERIOR DESIGN ASSISTANT [facility] ty:[facility] Start: 12-31-2024 End: 12-31-2024 ambulatory VASQUEZ BRUSH Facility:[facility] Start: 12-26-2024 End: 12-26-2024 ambulatory SELF Facility:[facility] Start: 12-18-2024 End: 12-18-2024 ambulatory VASQUEZ BRUSH Facility:[facility] Start: 12-18-2024 End: 12-18-2024 ambulatory VASQUEZ BRUSH Facility:[facility] Start: 12-11-2024 End: 12-11-2024 ambulatory SD DINH Facility:[facility] Start: 11-25-2024 End: 11-25-2024 ambulatory VASQUEZ BRUSH Facility:[facility] Start: 11-19-2024 ambulatory VASQUEZ BRUSH Facilit y:[facility] Start: 10-28-2024 End: 10-28-2024 ambulatory VASQUEZ BRUSH Facility:[facility] Start: 10-20-2024 End: 10-20-2024 Emergency department patient visit Vasquez Brush INTERIOR DESIGN ASSISTANT Facility:[facility] Start: 09-28-2024 End: 09-29-2024 Emergency department patient visit Riky Chew DO Work Phone: [facility] Comment on above: Chest pain, unspecif ied type (Primary Dx) Start: 09-18-2024 End: 09-18-2024 ambulatory VASQUEZ BRUSH Facility:[facility] Start: 09-02-2024 Encounter for preprocedural cardiovascular examination SHINYA UNAI [facility] Start: 09-01-2024 End: 09-10-2024 Evaluation and management of inpatient YINKA MANNY Facility:[facility] Start: 09-01-2024 Admission to [facility] VASQUEZ BRUSH [facility] Start: 09-01-2024 End: 09-01-2024 ambulatory SHINYA UNAI Facility:[facility] Start: 09-01-2024 End: 09-01-2024 ambulatory JACI SORTO Facility:[facility] Start: 09-01-2024 Encounter for other preprocedural examination JACI SORTO [facility] Start: 09-01-2024 End: 09-01-2024 ambulatory SHINYA UNAI Facility:[facility] Start: 08-13-2024 End: 08-13-2024 ambulatory MONIQUE [facility]ZABIGAIL [facility] Facility:[id number] Start: 08-13-2024 Encounter for preprocedural cardiovascular examination [facility] Start: 08-08-2024 End: 08-08-2024 ambulatory VASQUEZ BRUSH Facility:[facility] Start: 07-25-2024 End: 07-25-2024 ambulatory VASQUEZ BRUSH Facility:[facility] Start: 07-23-2024 End: 07-23-2024 ambulatory VASQUEZ BRUSH Facility:[facility] Start: 07-23-2024 Encounter for preprocedural cardiovascular examination MONIQUE [facility]ABIGAIL [facility] Start: 07-19-2024 End: 07-19-2024 Evaluation and management of inpatient REGINO GUTIERREZ Facility:[facility] Start: 07-08-2024 ambulatory VASQUEZ BRUSH Facilit y:[facility] Start: 06-30-2024 End: 06-30-2024 Emergency department patient visit Vasquez Brush NP Facility:[facility] Start: 06-27-2024 End: 06-27-2024 ambulatory VASQUEZ BRUSH Facility:[facility] Start: 06-26-2024 End: 06-26-2024 ambulatory ANN DANIEL Facility:[facility] Start: 06-24-2024 End: 06-24-2024 ambulatory VASQUEZ BRUSH Facility:[facility] Start: 06-19-2024 End: 06-19-2024 Emergency department patient visit Vasquez Brush INTERIOR DESIGN ASSISTANT Facility:[facility] Start: 06-19-2024 End: 06-19-2024 ambulatory JOEY PICKETT Facility:[facility] Start: 05-07-2024 End: 05-07-2024 ambulatory MAXWELL MONZON Facility:[facility] Start: 04-24-2024 End: 04-24-2024 ambulatory VASQUEZ BRUSH Facility:[facility] Start: 04-08-2024 End: 04-08-2024 ambulatory VASQUEZ C TRUDI Facility:[facility] Start: 04-07-2024 End: 04-07-2024 ambulatory VASQUEZ C TRUDI Facility:[facility] Start: 02-28-2024 End: 02-28-2024 ambulatory VASQUEZ C TRUDI Facility:[facility] Start: 02-27-2024 End: 02-27-2024 ambulatory VASQUEZ C TRIAMOS Facility:[facility] Start: 02-07-2024 End: 02-07-2024 ambulatory VASQUEZ C TRUDI Facility:[facility] Start: 01-16-2024 End: 01-16-2024 ambulatory VASQUEZ C TRILL Facility:[facility] Start: 01-11-2024 End: 01-11-2024 ambulatory VASQUEZ C TRUDI Facility:[facility] Start: 01-11-2024 Encounter for other preprocedural examination VASQUEZ BRUSH [facility] Start: 01-11-2024 End: 01-11-2024 ambulatory JOEY PICKETT Facility:[facility] Start: 01-08-2024 End: 01-08-2024 ambulatory VASQUEZ BRUSH Facility:[facility] Start: 04-09-2023 End: 04-09-2023 Emergency department patient visit [facility] Work Phone: Start: 08-29-2022 ambulatory Josi Grullon [employer] Work Phone: [facility] Start: 08-29-2022 Chart abstracting Josi Hoang is [employer] Work Phone: [facility] Start: 03-20-2022 End: 03-20-2022 Emergency department patient visit Pepe Binh [facility] Emergency 03 Start: 02-13-2022 End: 02-13-2022 Emergency department patient visit Maxwell Marin [facility] Emergency 12 Start: 04-10-2018 End: 04-12-2018 Evaluation and management of inpatient JOEY HUTCHINSON [facility] Start: 02-26-2018 Patient encounter procedure JASPREET EARLY Facility:[id number] Start: 12-26-2017 Patient encounter procedure Reid Early Facility:[id number] Start: 12-17-2017 Patient encounter procedure JASPREET EARLY Facility:[id number] Start: 11-16-2017 Patient encounter Jaspreet Early Facility:[facility] Start: 11-15-2017 Patient encounter Jaspreet Early Facility:[facility] Start: 05-27-2017 End: 05-27-2017 Emergency department patient visit [facility] Start: 12-29-2015 End: 12-30-2015 Patient encounter procedure SELF PATIENT Facility:[facility] Procedures Date Procedure Procedure Detail Performing [...] DO Work Phone: Start: 09-01-2024 Antibody screen VASQUEZ BRUSH Comment on above: Order Comment: Speci men Type: BLOOD SPECIMENOrdering Facility: [facility] Address: [address] [place] [address] Performed By: #### T SCR30 ####[facility] BANKCLIA [id number] [address] Start: 01-11-2024 Antibody screen VASQUEZ BRUSH Comment on above: Order Comment: Speci men Type: BLOOD SPECIMENOrdering Facility: [facility] Address: [address] [place] [address] Performed By: #### T SCR30 ####[facility] BLO[facility] BANKCLIA [id number] [address] Start: 03-20-2022 End: 03-20-2022 EKG impression Pepe Salmon Start: 12-25-2017 Colonoscopy Riky Cummings DO Work Phone: Start: 12-29-2015 Pharmacologic manage ment w/psychotherapy SELF PATIENT Plan of Treatment Date Care Activity Detail Author Start: 12-26-2027 Screening for malign ant neoplasm of colon [facility] Start: 2027 Zoster Vaccines (1 o f 2) Zoster Vaccines (1 of 2) [facility] Start: 10-20-2024 Influenza vaccination Influenza Vacc ine (#1) [facility] Start: 10-21-2023 COVID-19 Vaccine ( season) COVID-19 Vaccine ( season) [facility] Start: 04-09-2023 [facility] Start: 10-20-2022 Influenza vaccination Imm-Influenza (#1) [facility] Start: 06-10-2022 Hypertension screening Hyperte nsion Screening (#1) [facility] Start: 2022 Screening for malign ant neoplasm of colon [facility] Start: 02-19-2022 Screening for substa nce abuse Alcohol and Drug Screen Replaced By [facility] Start: 09-13-2021 Relationship Safety Screening/Counseling Relationship Safety Screening/Counseling Replaced By [facility] Start: 12-14-2020 Depression Monitoring Depression Mon [facility] Start: 2017 Screening for malign ant neoplasm of breast Mammogram [facility] Start: 1999 DTaP/Tdap/Td Vaccine s (1 - Tdap) DTaP/Tdap/Td Vaccines (1 - Tdap) [facility] Start: 1998 Screening for malign ant neoplasm of cervix Replaced By [facility] Start: 1996 Hepatitis B Vaccines (1 of 3 - 19+ 3-dose series) Hepatitis B Vaccines (1 of 3 - 19+ 3-dose series) [facility] Start: 1996 Pneumococcal Vaccine : Pediatrics and At-Risk Adult Patients (1 of 2 - PCV) Pneumococcal Vaccine: Pediatrics and At-Risk Adult Patients (1 of 2 - PCV) [facility] Start: 1996 Tetanus vaccination Imm-DTaP/T dap/Td (1 - Tdap) Replaced By [facility] Start: 1995 Hepatitis C screening Hepatitis C [facility] Start: 1992 HIV Screening HIV Screening [facility] Start: 1991 Serologic test for syphilis Syphilis Screening [facility] Start: 1980 Annual Wellness Visi t (Medicare) Annual Wellness Visit (Medicare) Replaced By [facility] Start: 1978 MMR Vaccines (1 of 1 - Standard series) MMR Vaccines (1 of 1 - Standard series) [facility] Start: 1977 Zco-DIMHQ-09 (#1) Ubx-[id number]-86 (#1) Replaced By [facility] Start: 1977 Annual wellness visit Welcome to Medicare Visit [facility] Start: 1977 Diabetes mellitus screening Diabetes Screening Replaced By [facility] Start: 1977 Hepatitis B vaccination Imm-He patitis B (1 of 3 - 3-dose series) Replaced By [facility] Start: 1977 Hepatitis C screening [facility] Start: 1977 HIV screening HIV Screening [facility] Start: 1977 LARC-Mirena IUD [facility] Start: 1977 Lipid panel [facility] Start: 1977 Screening for malign ant neoplasm of cervix Replaced By [facility] Start: 1977 Screening for malign ant neoplasm of colon [facility] End: 09-28-2024 ECG 12 Lead [facility] Service Area Work Phone: Comment on above: Once for 1 Occurrenc es starting 09/28/2024 until 09/28/2024 Patient Education POP Surg Recto maria isabel Enterocele ED Genital Warts [facility] Work Phone: Patient referral [facility] Work Phone: Payers Date Payer Category Payer Self-pay 2024 Dual Eligibility Medicare/Medicaid Organization [facility] DUAL COMPLETE [id number] 2024 Medicare [id number] 2021 Medicare [id number] 2001 Medicaid [id number] 1998 Private Health Insurance [id number] 1977 Unknown [id number] .356 1977 Unknown [id number] .356 1975 Unknown [id number] 2.16.840.1.040061.3.579.2 .356 1975 Unknown [id number] 2.16.840.1.511434.3.579.2 .356 1977 Unknown [id number] 2.16.840.1.892813.3.579.2 .356 1975 Unknown [id number] 2.16.840.1.032068.3.579.2 .732 1975 Unknown [id number] 2.16.840.1.657402.3.579.2 .1069 1975 Unknown [id number] 2.16.840.1.214601.3.579.2 .1069 1975 Unknown [id number] 2.16.840.1.405530.3.579.2 .1242 Medicare [id number] Medicare [id number] Unknown [id number] 2.16.840.1.530381.3.579.2 .286 Unknown [id number] 2.16.840.1.987963.3.579.2 .286 Unknown [id number] 2.16.840.1.371542.3.579.2 .286 Unknown Unknown [id number] 2.16.840.1.200211.3.579.2 .462 Unknown [id number] 2.16.840.1.436350.3.579.2 .462 Unknown [id number] 2.16.840.1.662050.3.579.2 .462 Unknown [id number] 2.16840.1.990255.3.579.2 .462 Social History Date Type Detail Facility [facility] Start: 04-09-2023 Tobacco smoking consumption unknown [facility] Start: 06-10-2021 Tobacco smoking status NHIS Ex-smoker [employer] Work Phone: Start: 02-19-1994 End: 06-05-2021 History of tobacco use Current smoker Replaced By [facility] Work Phone: Start: 02-19-1994 End: 06-05-2021 History of tobacco use Cigarette Smoker [facility] Work Phone: Start: 09-13-2020 End: 06-10-2021 Cigarettes smoked current (pack per day) - Reported 0.5 [facility] Work Phone: Start: 06-10-2021 Tobacco use and exposure Smokeless tobacco non-user Replaced By [facility] Work Phone: Start: 12-05-2021 Alcohol intake Current drinker of alcohol (finding) [facility] Work Phone: Start: 09-13-2020 Social Connections Replaced By [facility] Work Phone: Start: 01-13-2022 Social Connections and Isolation [address] [place] [address] Start: 07-30-2019 Alcohol Comment 1-3 drinks about 4x per year Replaced By [facility] Work Phone: Start: 1975 Sex Assigned At Female [facility] Work Phone: Start: 03-18-2018 Gender identity Identifies as female gender (finding) [facility] Work Phone: Start: 03-18-2018 Sexual orientation Heterosexual (finding) Replaced By [facility] Work Phone: Start: 1975 Sex assigned at Not on file [facility] Work Phone: Functional Status Date Assessment Result Facility 09-28-2024 Wilkinson - suicide s everity rating scale screener - recent [C-SSRS] [facility] Work Phone: Mental Status Date Assessment Result Facility 04-09-2023 Cognitive function Level Of Cons ciousness Awake;Alert;Appropriate;Follow s Commands [facility] Work Phone: Clinical Notes 09-30-2018 to 12-31-2024 Jessica Miles RN - 09/29/2024 4:47 AM Cierra Miles RN - 09/29/2024 4:47 AM Cyrus Maldonado Lang, DO - 09/28/2024 11:43 PM EDTDischarge InstructionsAttachments Note Date & Type Note Facility 12-31-2024 Note HNO ID: [id number] Author: VERONIKA SUTHERLAND APRN.ALBERTO Service: ? Author Type: Nurse Practitioner Type: Progress Notes Filed: 12/31/2024 12:21 Note Text: Recording using ambient Apps[employer] software for draft documentation of the visit was discussed with the patient/authorized national sales representative; all questions welcomed and answered. Patient/authorized national sales representative agreed to proceed I have communicated my name and active licensure. The patient's identity and physical location were verified at the time of this visit. Either the patient or their legal national sales representative has been informed of the risks and benefits of -- and alternatives to -- treatment through a remote evaluation and consents to proceed with the evaluation remotely. Subjective Paul Davenport is a 49 year old female being seen virtually for Shortness of Breath and worsening edema. Patient lacks transportation and was unable to be seen in office. She reports ongoing swelling in her legs but feels it is all over. She reports weakness and increase sob especially on exertion. History of aortic valve replacement and closure of patent foramen ovale 09/12. She has followed up with cardiology Lilly Carrasco on 12/18/24. She was referred to CHF clinic, her torsemide was increased from 20 to 40 mg twice daily. Labs ordered. Patient reports increasing her torsemide without relief. States she has not noticed any change in swelling. She continues Shortness of Breath. She has not scheduled with heart failure clinic due to lack of transportation. Objective LMP 05/11/2010 GENERAL: alert and appropriate, in no distress, well-hydrated, well nourished, overweight, and appears sob during conversation RESPIRATORY: Shortness of Breath HEART: bilateral lower extremity swelling. Appears non pitting during self palpation. ASSESSMENT/PLAN: 1. Shortness of breath - ICD9: 786.05, ICD10: R06.02 (primary diagnosis) - chronic, no improvement with increase toresimide dose. Due to lack of transportation and patient unable to come in for further assessment patient advised to call 911 and go to ER. 2. Bilateral leg edema - ICD9: 782.3, ICD10: R60.0 - See above Veronika Sutherland APRN.HEAVY DUTY MECHANIC Visit was conducted via [employer] Patient Location: Patient Home or Place of Residence I spent a total of 40 minutes on the date of the service which included preparing to see the patient, completing clinical documentation, obtaining and/or reviewing separately obtained history, and counseling and educating the patient/family/caregiver. [facility] 12-26-[address] [facility] 12-18-2024 Note HNO ID: [id number] Author: LILLY CARRASCO APRN.HEAVY DUTY MECHANIC Service: ? Author Type: Nurse Practitioner Type: Progress Notes Filed: 12/19/2024 14:12 Note Text: Chief Complaint Patient presents with: [facility] Follow Up: Chest pain History of Present Illness: Paul Davenport is a 49 year old female who presents for post surgical follow up. The patient is a 49-year-old female with a history of fibromyalgia, arthritis, and tobacco use, presenting for evaluation of persistent pain and edema following valve surgery on 09/04. The patient reports ongoing pain and swelling since her valve surgery on 09/04. She experiences significant discomfort in her chest, legs, feet, arms, and back, describing her feet as bloated and like balloons. She notes difficulty ambulating and performing daily activities such as tying her shoes, cleaning, cooking, and showering due to the edema and pain. She estimates a weight gain of 20-30 pounds since surgery, attributing it to both fluid retention and dietary habits, as she has been eating out frequently. She has been taking torsemide 20 mg BID, which was increased from furosemide due to inadequate response, but reports minimal improvement in edema and diuresis. She also reports severe fatigue and sleep disturbances, getting only about an hour of sleep last night and often needing to sleep upright on the couch due to discomfort. She attributes her sleep issues to pain and difficulty finding a comfortable position. She has been alternating between Tylenol and ibuprofen for pain management but suspects that ibuprofen may be contributing to her swelling, so she has stopped taking it. She feels that Tylenol is ineffective. She experiences frequent coughing fits and choking, particularly on saliva, which she believes may have contributed to a broken sternal wire identified on a chest X-ray. She has not been able to follow up with her cardiothoracic surgeon due to transportation issues. She also reports difficulty swallowing and a history of esophageal inflammation, with a normal EGD performed a few years ago. She has been taking propranolol twice daily for migraines but often forgets the second dose. She reports episodes of elevated blood pressure at home but has not been monitoring it regularly. She denies any history of IN or coronary artery blockages. She has a history of fibromyalgia and arthritis, with previous treatment including Lyrica, which she discontinued due to weight gain and concerns about cardiac effects. She reports that other medications have been ineffective. She is scheduled to meet with home care services in a few days, having been denied previously before her surgery. She is a current smoker and acknowledges difficulty quitting. She reports high levels of stress and anxiety, and her psychiatrist has prescribed a new medication to help with sleep, which she has not yet started. She lives alone and has limited support, with family living about an hour and a half away. She reports transportation issues affecting her ability to attend medical appointments. She has a family history of heart disease in her mother and grandmother. 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 Insomnia, unspecified Iron deficiency anemia 09/25/2023 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/2023 Major depressive disorder, single episode, mild Migraine stable with propranolol Myocardial bridge (HCC) Nontoxic uninodular goiter Osteoarthritis of multiple joints Partial rectal prolapse PFO (patent foramen ovale) (HCC) RP (rectal prolapse) ~2012 repeat prolapse 2023 Sleep apnea Tobacco abuse PAST SURGICAL HISTORY Procedure Laterality Date ABDOMINAL SURGERY HX COLON SURGERY HX 2019 rectal prolapse COLONOSCOPY 11/16/2014, 12/2017 No polyps/ severe diarrhea and prolapse CORRECT RECTAL PROLAPSE 2019 Laparoscopic rect[address]xy with mesh CT ABD/PELVIS WO CONTRAST PANEL 11/[address] COR/SAG/SINUS/BRAIN/HEAD 12/2005 normal DEBRIDEMENT MUSCLE AND FASCIA 20 SQ CM/< 11/03/2007 DEBRIDEMENT ULCER EXTREMITY LOWER performed by GEOFF FLOOD at [facility] ECHO EXAM OF HEART 09/2000 bicuspid AV, minor AI, mild EGD 01/1999 small hiatal hernia EGD 01/2004 EGD 02/2007 mild gastritis EGD 11/16/2014 EGD 08/02/2022 ENDOSCOPY PROC 10/22/2019 LA grade A reflux esophagitis, No (more content not included)... [facility] 11-25-2024 Note HNO ID: [id number] Author: VASQUEZ BRUSH APRN.HEAVY DUTY MECHANIC Service: ? Author Type: Nurse Practitioner Type: Progress Notes Filed: 12/28/2024 20:36 Note Text: I have communicated my name and active licensure. The patient's identity and physical location were verified at the time of this visit. Either the patient or their legal national sales representative has been informed of the risks and benefits of -- and alternatives to -- treatment through a remote evaluation and consents to proceed with the evaluation remotely. Ramon Cantrell is a 49-year-old female with a history of aortic valve replacement, presenting with bilateral foot pain and swelling. Paul reports a recent onset of bilateral foot pain and swelling over the past 1-2 weeks. The pain is described as severe, affecting both the dorsal and plantar surfaces of her feet, and is exacerbated by ambulation to the point where she can barely bear weight. She has a history of plantar fasciitis and notes that the current pain feels similar. She has been attempting to alleviate the pain by elevating her feet. Paul also reports a recurrence of lower extremity edema, which had initially improved post-aortic valve replacement surgery. She had been off Lyrica, which she believed was contributing to the reduction in swelling. However, the edema has returned, and she restarted torsemide yesterday. She has previously tried Lasix without success. Additionally, she reports polydipsia and admits to a high-sodium diet due to financial constraints, but is not monitoring her fluid intake. Paul has a BMI of 46 and was started on Topamax in October at a low dose of 25 mg at bedtime, which was later increased to 50 mg at bedtime. She reports that the medication increased her appetite and did not aid in weight loss. Due to her cardiac history, she was not prescribed stimulants. A prescription for tirzepatide was sent, but insurance coverage is pending. She has a follow-up appointment with her body builder scheduled for December 18, which was rescheduled due to transportation issues, and a follow-up appointment with her primary care provider in January. PAST MEDICAL HISTORY Diagnosis Date Allergic rhinitis, [...] Partial rectal prolapse RP (rectal prolapse) ~2012 repeat prolapse 2023 Sleep apnea Tobacco abuse PAST SURGICAL HISTORY Procedure Laterality Date ABDOMINAL SURGERY HX COLON SURGERY HX 2019 rectal prolapse COLONOSCOPY 11/16/2014, 12/2017 No polyps/ severe diarrhea and prolapse CORRECT RECTAL PROLAPSE 2019 Laparoscopic rectopexy with mesh CT ABD/PELVIS WO CONTRAST PANEL 11/2004 normal [...] DIAGNOSTIC age 24, 26 endometriosis, cysts removed MIDLINE INSERTION/CONSULT 09/08/2024 MRI BRAIN 05/2003 normal PFO CLOSURE 09/04/2024 SHX AORTIC VALVE REPLACEMENT 09/04/2024 SIGMOIDOSCOPY 01/1999 normal TONSILLECTOMY PRIMARY/SECONDARY Tonsillectomy UNROOFING ANOM CORONARY 09/04/2024 Bridge ALLERGIES Dust and Metformin MEDICATIONS diazePAM (VALIUM) 5 mg tablet Take 1 tablet by mouth every 12 hours. torsemide (DEMADEX) 10 mg tablet Take 1 tablet by mouth once daily. ibuprofen (MOTRIN) 800 mg tablet Take 1 tablet by mouth every 8 hours as needed for pain. propranolol (INDERAL) 20 mg tablet Take 1 tablet by mouth two times a day. nystatin (MYCOSTATIN) cream Apply to affected area two times a day. esomeprazole (NEXIUM) 40 mg capsule Take 1 capsule by mouth two times a day. fluticasone (FLONASE) 50 mcg/actuation nasal spray Use 2 sprays in each nostril once daily as needed for cold/allergy symptoms. flut (more content not included)... [facility] 11-19-[address] [facility] 10-28-2024 Note HNO ID: [id number] Author: VASQUEZ BRUSH APRN.HEAVY DUTY MECHANIC Service: ? Author Type: Nurse Practitioner Type: Progress Notes Filed: 11/15/2024 20:26 Note Text: Subjective The patient consented to the use of ambient AI software for draft documentation of the visit consistent with [facility]?s Notice of Privacy Practices. HPI Paul Davenport is a 49-year-old female with a history of recent cardiac surgery, presenting for follow-up. Paul reports a horrible hospital stay at [facility] for her recent cardiac surgery, citing multiple unsuccessful IV attempts by nursing staff. She notes a broken wire post-surgery and expresses difficulty returning to [facility] for follow-up due to transportation issues. Her sister, who lives 1.5 hours away, assisted with transportation for the initial surgery. Paul is currently residing in her apartment after a brief stay with her father, which did not work out. She is exploring housing options in [facility] to be closer to family but faces a two-year wait for public housing. She reports frequent sneezing and suspects a cold, but denies fevers or chest involvement. She notes persistent pain and a protruding stitch that she believes has not dissolved. She reports improved swelling and has been taking torsemide intermittently due to its diuretic effects. She is currently on clindamycin for a dental issue, which she reports causes significant gastrointestinal discomfort and has been taking it twice daily instead of the prescribed three times due to forgetfulness. She denies any drainage from the surgical site and reports improved healing. Paul has a history of a broken tooth and a new ulceration on the right lateral tongue, causing significant pain. She is seeking an oral surgeon covered by her insurance. She reports increased fatigue and irritability since discontinuing Lyrica, which she believes contributed to weight gain and swelling. She is currently under the care of a psychiatrist in [place] and is considering an increase in her Abilify dosage. She expresses a desire to address her weight gain and inquires about weight loss options. She reports improved breathing post-surgery and denies any history of pancreatitis or family history of thyroid cancer. She has a history of sleep apnea and is currently smoking a few cigarettes occasionally, but is trying to quit. I reviewed past medical, surgical, social, and [...] Partial rectal prolapse RP (rectal prolapse) ~2012 repeat prolapse 2023 Sleep apnea Tobacco abuse PAST SURGICAL HISTORY Procedure Laterality Date ABDOMINAL SURGERY HX COLON SURGERY HX 2019 rectal prolapse COLONOSCOPY 11/16/2014, 12/2017 No polyps/ severe diarrhea and prolapse CORRECT RECTAL PROLAPSE 2019 Laparoscopic rectopexy with mesh CT ABD/PELVIS WO CONTRAST PANEL 11/2004 normal [...] DIAGNOSTIC age 24, 26 endometriosis, cysts removed MIDLINE INSERTION/CONSULT 09/08/2024 MRI BRAIN 05/2003 normal PFO CLOSURE 09/04/2024 SHX AORTIC VALVE REPLACEMENT 09/04/2024 SIGMOIDOSCOPY 01/1999 normal TONSILLECTOMY PRIMARY/SECONDARY Tonsillectomy UNROOFING ANOM CORONARY 09/04/2024 Bridge ALLERGIES Dust and Metformin MEDICATIONS propranolol (INDERAL) 20 mg tablet Take 1 tablet by mouth two times a day. nystatin (MYCOSTATIN) cream Apply to affected area two times a day. esomeprazole (NEXIUM) 4 (more content not included)... [facility] 10-24-2024 Note HNO ID: [id number] Author: CALLIE SUGGS LPN Service: ? Author Type: Licensed Nurse Type: Progress Notes Filed: 10/24/2024 14:28 Note Text: ED Follow-Up Note Provider Action / FYI: Call completed by: LASHON Patient seen in ED: Out of Network ED Contact made with Patient: No, left message. Callie Suggs LPN October 24, 2024 2:27 PM [facility] 10-24-2024 Note Patient Outreach (BELIA DIANA) PAUL DAVENPORT ([id number]) 1975 F Date Time Provider Department 10/24/24 VASQUEZ BRUSH During your visit today, we recorded the following information about you: Callie Suggs LPN 10/24/2024 2:28 PM Signed ED Follow-Up Note Provider Action / FYI: Call completed by: LASHON Patient seen in ED: Out of Network ED Contact made with Patient: No, left message. Callie Suggs LPN October 24, 2024 2:27 PM Allergies As of Date: 10/24/2024 Noted Allergy Reaction DUST 01/27/2009 Comments: extreme coughing, dry hives METFORMIN 04/09/2023 14 - Other: See Comments Date Reviewed: 09/18/2024 Reviewed by: Meryl Lang MA - Fully Assessed Reason for Visit: ED Follow-up [821] Cmt: [facility] 10/20/2024 Prescriptions as of 10/24/2024 - clindamycin (CLEOCIN) 300 mg capsule Take 1 capsule by mouth every 8 hours for 7 days. - torsemide (DEMADEX) 20 mg tablet Take [...] once daily. Problem List As Of Date 10/24/2024 Noted Resolved Bicuspid AV/AI.. G=16-20/mild [I35.9] 07/31/2001 [...] [E66.812] 03/31/2022 Chronic bilateral low back pain with (more content not included)... [facility] 10-10-2024 Note HNO ID: [id number] Author: JOHNNA VELIZ, NORBERTO Service: ? Author Type: Registered Nurse Type: [...] tool questions performed? N/A N/A Concerns: N/A French Teacher plan for next outreach: No further follow-up needed at this time. Signature: Johnna Veliz RN October 10, 2024 [facility] 10-10-2024 Note Patient Outreach (AG ACM) PAUL DAVENPORT ([id number]) 1975 F Date Time Provider Department 10/10/24 JOHNNA VELIZ [facility] During your visit today, we recorded the following information about you: Johnna Veliz RN 10/10/2024 2:22 PM Signed AG TRANSITIONAL CARE MANAGEMENT (TCM) FOLLOW-UP NOTE Provider Action/FYI: Patient identified by name and date of : YES Spoke to: patient Diagnosis: CHF Summary: Patient returned call today and notes that phone is not ringing. SN attempted to return call, no answer. Unable to leave message voice mail is full. Health leads screening tool questions performed? N/A N/A Concerns: N/A French Teacher plan for next outreach: No further follow-up [...] [facility] 10-06-[facility]24 Note HNO ID: [id number] Author: JOHNNA VELIZ RN Service: ? Author [...] [facility] 10-06-2024 Note HNO ID: [id number] Author: JOHNNA VELIZ RN Service: ? Author Type: Registered Nurse Type: Progress Notes Filed: 10/06/2024 10:28 Note Text: ED Follow-Up Note Provider Action / FYI: Call completed by: RN Patient seen in ED: In Network ED Contact made with Patient: No, left message. 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 Author Type: LICENSED NURSE Type: Progress Notes Filed: 10/03/2024 09:37 Note Text: ED Follow-Up Note Provider Action / FYI: Call completed by: LASHON Patient seen in ED: Out of Network ED Contact made with Patient: No, left message. Callie Suggs LPN October 03, 2024 9:37 AM [facility] 10-02-2024 Note HNO ID: [id number] Author: CALLIE SUGGS LPN Service: ? Author Type: LICENSED NURSE Type: Progress Notes Filed: 10/02/2024 14:46 Note Text: ED Follow-Up Note Provider Action / FYI: Call completed by: LASHON Patient seen in ED: Out of Network ED Contact made with Patient: No, left message. Callie Suggs LPN October 02, 2024 2:46 PM [facility] 10-02-2024 Note Patient Outreach (BELIA DIANA) PAUL DAVENPORT ([id number]) 1975 F Date Time Provider Department 10/02/24 [...] Reason for Visit: ED Follow-up [821] Cmt: SEA Wilson 09/28/2024 Prescriptions as of 10/03/2024 - propranolol [...] pack also. Jessica Miles RN 09/29/24 0448 T [facility] 09-29-2024 Emergency department Note Pt was [...] helping. States procedure was performed at the [facility]. States is because since that she was [...] Prasanth Villavicencio 09/29/2024 2:13 AM Dictation workstation: [id number] Labs Reviewed CBC WITH AUTO DIFFERENTIAL - [...] is performed using different testing methodology at [facility] than at [facility]. Direct result comparisons should only be made within the same method. INFLUENZA A AND B PCR - Normal Flu A Result Not Detected Flu B Result Not Detected Narrative: This assay is an in vitro diagnostic multiplex nucleic acid amplification test for the detection and discrimination of Influenza A & B from nasopharyngeal specimens, and has been validated for use at [facility]. Negative results do not preclude Influenza A/B infections, and should not be used as the sole basis for diagnosis, treatment, or other management decisions. If Influenza A/B and RSV PCR results are negative, testing for Parainfluenza virus, Adenovirus and Metapneumovirus is routinely performed for [facility] and intensive care inpatients, and [...] and has been validated for use at [facility]. Negative results do not preclude COVID-19 infections [...] performed using a different testing methodology at [facility] than at other [facility]. Direct result comparisons should only be made [...] performed using a different testing methodology at [facility] than at other [facility]. Direct result comparisons should only be made within the same method. TROPONIN SERIES- (INITIAL, 1 HR) Narrative: The following orders were created for panel order Troponin I Series, High Sensitivity (0, 1 HR). Procedure Abnormality Status --------- ------ Troponin I, High Sensiti...[[id number]] Normal Final result Troponin, High Sensitivi...[[id number]] Normal Final result Please view results for [...] 0318 Given patient's care was at the [facility] did offer for transfer but she does [...] oxycodone so she can follow-up with her body builder. States her pain is more so on her chest wall and worse when she lifts her arms. [WL] 0431 Patient given strict return precautions. Chest pain-free on discharge. Plan be for her to follow-up with her body builder. Give her a few days Percocet to [...] Prasanth Villavicencio 09/29/2024 2:13 AM Dictation workstation: [id number] Labs Reviewed CBC WITH AUTO DIFFERENTIAL - [...] is performed using different testing methodology at [facility] than at [facility]. Direct result comparisons should only be made within the same method. INFLUENZA A AND B PCR - Normal Flu A Result Not Detected Flu B Result Not Detected Narrative: This assay is an in vitro diagnostic multiplex nucleic acid amplification test for the detection and discrimination of Influenza A & B from nasopharyngeal specimens, and has been validated for use at [facility]. Negative results do not preclude Influenza A/B infections, and should not be used as the sole basis for diagnosis, treatment, or other management decisions. If Influenza A/B and RSV PCR results are negative, testing for Parainfluenza virus, Adenovirus and Metapneumovirus is routinely performed for [facility] onc[facility] and intensive care inpatients, and [...] and has been validated for use at [facility]. Negative results do not preclude COVID-19 infections [...] performed using a different testing methodology at [facility] than at [facility]. Direct result comparisons should only be [...] performed using a different testing methodology at [facility] than at [facility]. Direct result comparisons should only be made within the same method. TROPONIN SERIES- (INITIAL, 1 HR) Narrative: The following orders were created for panel order Troponin I Series, High Sensitivity (0, 1 HR). Procedure Abnormality Status --------- ------ Troponin I, High Sensiti...[[id number]] Normal Final result Troponin, High Sensitivi...[[id number]] Normal Final result Please view results for [...] dictated by speech recognition. Minor errors in pool table operator may be present. [1] Allergies Allergen Reactions Metformin Unknown Riky Chew DO 09/29/24 0432 documented in this encounter [facility] Work Phone: 09-29-2024 Hospital Discharge instructions Riky Chew DO - 09/29/2024 4:24 AM EDT Call your body builder tomorrow to follow-up. The following attachments cannot be sent through Care Everywhere.Managing acute pain at home (Gambian)documented in this encounter [facility] Work Phone: 09-28-2024 Physician Emergency department Note [...] helping. States procedure was performed at the [facility]. States is because since that she was [...] Prasanth Villavicencio 09/29/2024 2:13 AM Dictation workstation: [id number] Labs Reviewed CBC WITH AUTO DIFFERENTIAL - [...] is performed using different testing methodology at [facility] than at [facility]. Direct result comparisons should only be made within the same method. INFLUENZA A AND B PCR - Normal Flu A Result Not Detected Flu B Result Not Detected Narrative: This assay is an in vitro diagnostic multiplex nucleic acid amplification test for the detection and discrimination of Influenza A & B from nasopharyngeal specimens, and has been validated for use at [facility]. Negative results do not preclude Influenza A/B infections, and should not be used as the sole basis for diagnosis, treatment, or other management decisions. If Influenza A/B and RSV PCR results are negative, testing for Parainfluenza virus, Adenovirus and Metapneumovirus is routinely performed for [facility] pediatric oncology and intensive care inpatients, and [...] and has been validated for use at [facility]. Negative results do not preclude COVID-19 infections [...] performed using a different testing methodology at [facility] than at [facility]. Direct result comparisons should only be [...] performed using a different testing methodology at [facility] than at [facility]. Direct result comparisons should only be made within the same method. TROPONIN SERIES- (INITIAL, 1 HR) Narrative: The following orders were created for panel order Troponin I Series, High Sensitivity (0, 1 HR). Procedure Abnormality Status --------- ------ Troponin I, High Sensiti...[[id number]] Normal Final result Troponin, High Sensitivi...[[id number]] Normal Final result Please view results for [...] 0318 Given patient's care was at the [facility] did offer for transfer but she does [...] oxycodone so she can follow-up with her body builder. States her pain is more so on her chest wall and worse when she lifts her arms. [WL] 0431 Patient given strict return precautions. Chest pain-free on discharge. Plan be for her to follow-up with her body builder. Give her a few days Percocet to [...] Prasanth Villavicencio 09/29/2024 2:13 AM Dictation workstation: [id number] Labs Reviewed CBC WITH AUTO DIFFERENTIAL - [...] is performed using different testing methodology at [facility] than at other [facility]. Direct result comparisons should only be made within the same method. INFLUENZA A AND B PCR - Normal Flu A Result Not Detected Flu B Result Not Detected Narrative: This assay is an in vitro diagnostic multiplex nucleic acid amplification test for the detection and discrimination of Influenza A & B from nasopharyngeal specimens, and has been validated for use at [facility]. Negative results do not preclude Influenza A/B infections, and should not be used as the sole basis for diagnosis, treatment, or other management decisions. If Influenza A/B and RSV PCR results are negative, testing for Parainfluenza virus, Adenovirus and Metapneumovirus is routinely performed for [facility] oncology and intensive care inpatients, and [...] and has been validated for use at [facility]. Negative results do not preclude COVID-19 infections [...] performed using a different testing methodology at [facility] than at [facility]. Direct result comparisons should only be [...] performed using a different testing methodology at [facility] than at other [facility]. Direct result comparisons should only be made within the same method. TROPONIN SERIES- (INITIAL, 1 HR) Narrative: The following orders were created for panel order Troponin I Series, High Sensitivity (0, 1 HR). Procedure Abnormality Status --------- ------ Troponin I, High Sensiti...[[id number]] Normal Final result Troponin, High Sensitivi...[[id number]] Normal Final result Please view results for [...] dictated by speech recognition. Minor errors in pool table operator may be present. [1] Allergies Allergen Reactions Metformin Unknown Riky Chew DO 09/29/24 0432 [facility] Work Phone: 09-18-[address] [facility] 09-18-[address] [facility] 09-15-2024 Note HNO ID: [id number] Author: JOHNNA VELIZ RN Service: ? Author [...] tool questions performed? N/A N/A Concerns: medications French Teacher plan for next outreach: Will follow-up later this week Signature: Johnna Veliz RN September 15, 2024 [facility] 09-15-[address] [facility] 09-15-2024 Note Patient Outreach (AG ACM) PAUL DAVENPORT ([id number]) 1975 F Date Time Provider Department 09/15/24 JOHNNA VELIZ [facility] During your visit today, [...] tool questions performed? N/A N/A Concerns: medications French Teacher plan for next outreach: Will follow-up later this week Signature: Johnna Veliz RN September 15, 2024 Allergies As of Date: 09/15/2024 Noted Allergy Reaction DUST 01/27/2009 Comments: extreme coughing, dry hives METFORMIN 04/09/2023 14 - Other: See Comments Date Reviewed: 09/09/2024 Reviewed by: Susana Harden RN - Fully Assessed Reason for Visit: Transition Of Care [8190] Cmt: Patient Call Prescriptions as of 09/15/2024 [...] included)... [facility] 09-12-[address] [facility] 09-11-2024 Note HNO ID: [id number] Author: JOHNNA VELIZ RN Service: ? Author Type: Registered Nurse Type: Progress Notes Filed: 09/11/2024 13:17 Note Text: TRANSITIONAL CARE MANAGEMENT (TCM) COMMUNITY MONITORING PROGRAM - [place] Provider Action/FYI: SUMMARY: Pt discharged from [facility] on 09/10/24. Admitted for: Aortic Stenosis Patient seen Inpatient MEL Visit? No. Patient seen ICARE Program? No. Contact made with patient: Yes Patient declines scheduling TCM at this time. Has a follow up scheduled 09/18 with cardiology and PCP 10/28. Patient reports that she will be staying with her dad in [facility] to assist with care.Encouraged patient to report and changes in symptoms. Instructed patient to keep log of weight, blood pressure and heart rate daily. Patient verbalized understanding. Hi my name is Johnna Veliz RN and I am calling from the [facility] on behalf of your PCP, Vasquez Brush APRN.HEAVY DUTY MECHANIC I understand you were recently in the [...] like to speak with a social work seam steamer to help give you support for any [...] RN [facility] 09-11-[address] [facility] 09-11-[address] [facility] 09-11-2024 Note Patient Outreach (AG ACM) PAUL DAVENPORT ([id number]) 1975 F Date Time Provider Department 09/11/24 JOHNNA VELIZ [facility] During your visit today, we recorded the following information about you: Johnna Veliz RN 09/11/2024 1:17 PM Signed TRANSITIONAL CARE MANAGEMENT (TCM) COMMUNITY MONITORING PROGRAM - [place] Provider Action/FYI: SUMMARY: Pt discharged from [facility] on 09/10/24. Admitted for: Aortic Stenosis Patient seen Inpatient MEL Visit? No. Patient seen ICARE Program? No. Contact made with patient: Yes Patient declines scheduling TCM at this time. Has a follow up scheduled 09/18 with cardiology and PCP 10/28. Patient reports that she will be staying with her dad in [facility] to assist with care.Encouraged patient to report and changes in symptoms. Instructed patient to keep log of weight, blood pressure and heart rate daily. Patient verbalized understanding. Hi my name is Johnna Veliz RN and I am calling from the [facility] on behalf of your PCP, Vasquez Brush APRN.HEAVY DUTY MECHANIC I understand you were recently in the [...] like to speak with a social work seam steamer to help give you support for any [...] included)... [facility] 09-10-[address] [facility] 09-09-[address] [facility] 09-09-[address] [facility] 09-09-[address] [facility] 09-08-[address] [facility] 09-08-[address] [facility] 09-07-[address] [facility] 09-06-[address] [facility] 09-05-[address] [facility] 09-04-[address] [facility] 09-04-[address] [facility] 09-04-[address] [facility] 09-04-[address] [facility] 09-04-[address] [facility] 09-03-[address] [facility] 09-03-[address] [facility] 09-03-[address] [facility] 09-01-[address] [facility] 09-01-[address] [facility] 09-01-[address] [facility] 09-01-[address] [facility] 09-01-[address] [facility] 09-01-[address] [facility] 08-26-2024 Note HNO ID: [id number] Author: JOHNNA VELIZ RN Service: ? Author [...] screening tool questions performed? N/A N/A Concerns: French Teacher plan for next outreach: Will follow-up in 2 weeks Signature: Johnna Veliz RN August 26, 2024 [facility] 08-26-2024 Note Patient Outreach (AG ACM) PAUL DAVENPORT ([id number]) 1975 F Date Time Provider Department 08/26/24 JOHNNA VELIZ [facility] During your visit today, we recorded the following information about you: Johnna Veliz RN 08/26/2024 10:31 AM Signed TRANSITIONAL CARE MANAGEMENT (TCM) FOLLOW-UP NOTE [...] screening tool questions performed? N/A N/A Concerns: French Teacher plan for next outreach: Will follow-up in [...] [facility] 08-08[facility]24 Note HNO ID: [id number] Author: MONIQUE CA MD Service: Cardiovascular Surgery [...] the wrist with 1% lidocaine. A pre-flushed 6-Czech sheath was inserted into the right radial [...] [facility] 07-30-2024 Note HNO ID: [id number] Author: JOHNNA VELIZ RN Service: ? Author [...] to go for Care Concerns: Medications, swelling French Teacher plan for next outreach: Will follow-up in 1 week Signature: Johnna Veliz RN July 30, 2024 [facility] 07-30-2024 Note Patient Outreach (AG ACM) PAUL DAVENPORT ([id number]) 1975 F Date Time Provider Department 07/30/24 JOHNNA VELIZ [facility] During your visit today, we recorded the [...] to go for Care Concerns: Medications, swelling French Teacher plan for next outreach: Will follow-up in [...] [facility] 07-25-2024 Note HNO ID: [id number] Author: VASQUEZ BRUSH APRN.ALBERTO Service: ? Author Type: Nurse Practitioner Type: Progress Notes Filed: 08/18/2024 17:59 Note Text: Subjective The patient consented to the use of Box software for draft documentation of the visit consistent with [facility]?s Notice of Privacy Practices. HPI Paul Davenport is a 49-year-old female with a history of severe aortic stenosis, presenting for follow-up after leaving the hospital AMA on 07/19/2024. Paul was seen at [facility] on 07/19/2024 for worsening fluid retention, groin [...] for a cardiac catheterization on 08/08/[address] Ca. She expresses frustration about a [...] [facility] 07-23-2024 Note HNO ID: [id number] Author: MONIQUE CA MD Service: ? Author Type: Physician Type: Progress Notes Filed: 07/23/2024 18:19 Note Text: oMnique Ca MD Interventional Cardiology [address] [place] [address] Chief Complaint Patient presents with: Cardiology Follow [...] [facility] 07-22-2024 Note HNO ID: [id number] Author: JOHNNA VELIZ RN Service: ? Author [...] [facility] 07-22-2024 Note HNO ID: [id number] Author: VASQUEZ BRUSH APRN.ALBERTO Service: ? Author Type: Nurse Practitioner Type: Progress Notes Filed: 07/22/2024 08:33 Note Text: I am very concerned about her and do recommend returning to the ER. I can send in oral flagyl for her colitis but she really should be treated in the hospital. Vasquez [facility] 07-21-2024 Note HNO ID: [id number] Author: JOHNNA VELIZ RN Service: ? Author Type: Registered Nurse Type: Progress Notes Filed: 07/21/2024 16:57 Note Text: TRANSITIONAL CARE MANAGEMENT (TCM) COMMUNITY MONITORING PROGRAM - [place] Provider Action/FYI: Patient reports decreased urination and [...] stay any longer. SUMMARY: Pt discharged from [facility] on 07/19/24, patient left AMA. Admitted [...] RN and I am calling from the [facility] on behalf of your PCP, Vasquez Brush APRN.HEAVY DUTY MECHANIC I understand you were recently in the [...] like to speak with a social work seam steamer to help give you support for any [...] [facility] 07-21-2024 Note Patient Outreach (AG ACM) PAUL DAVENPORT ([id number]) 1975 F Date Time Provider Department 07/21/24 JOHNNA VELIZ [facility] During your visit today, we recorded the following information about you: Johnna Veliz, RN 07/21/2024 4:57 PM Signed TRANSITIONAL CARE MANAGEMENT (TCM) COMMUNITY MONITORING PROGRAM - [place] Provider Action/FYI: Patient reports decreased urination and [...] stay any longer. SUMMARY: Pt discharged from [facility] on 07/19/24, patient left AMA. Admitted for: CHF Patient seen Inpatient MEL Visit? No. Patient seen ICARE Program? No. Contact made with patient: Yes Reviewed CHF zones with patient, encouraged patient to report any changes in symptoms. Patient verbalized understanding. Patient has not been monitoring weight, diet or fluid intake. Reviewed with patient. Hi my name is Jhonna Veliz RN and I am calling from the [facility] on behalf of your PCP, Vasquez Brush APRN.HEAVY DUTY MECHANIC I understand you were recently in the [...] like to speak with a social work seam steamer to help give you support for any [...] [facility] 07-08-2024 Note HNO ID: [id number] Author: ERIC MONTOYA, NORBERTO Service: Nursing Author Type: Registered Nurse Type: Nursing Progress Note Filed: 07/08/2024 09:48 Note Text: Patient given 2 ML dilute Difinity IV per centrifugal chiller technician request. Patient tolerated well. [facility] 07-07-2024 Note HNO ID: [id number] Author: JEFE MCLEAN MA Service: ? Author Type: Power Grader Operator Type: Progress Notes Filed: 07/07/2024 14:34 Note Text: ED Follow Up: Patient discharged from [facility] ED on 06/30/24. 1. How are you [...] you able to contact the office or second cook and baker provider prior to your ED visit? left message 5. Is there anything else I can do for you today? Left message Jefe Mclean MA [facility] 07-07-2024 Note Patient Outreach (AG FAMPLE) PAUL DAVENPORT ([id number]) 1975 F Date Time Provider Department 07/07/24 VASQUEZ BRUSH During your visit today, we recorded the following information about you: Jefe Mclean MA 07/07/2024 2:34 PM Signed ED Follow Up: Patient discharged from [facility] ED on 06/30/24. 1. How are you [...] you able to contact the office or second cook and baker provider prior to your ED visit? left [...] Reason for Visit: ED Follow-up [821] Cmt: [facility] ER 06/30/24 Prescriptions as of 07/07/2024 - [...] [facility] 07-04-2024 Note HNO ID: [id number] Author: CALLIE SUGGS LPN Service: ? Author [...] Note Patient Outreach (AG FAMPLE) PAUL DAVENPORT ([id number]) 1975 F Date Time Provider Department 07/04/24 [...] [facility] 06-27-2024 Note HNO ID: [id number] Author: ANN DANIELLE CT Service: ? Author Type: Technologist Type: Progress [...] PATIENT PRESENTS WITH AN IMPLANTABLE OR ATTACHED BELLMAN CAPTAIN: No RADIOLOGY DEPARTMENT: General X-ray: Exam(s) Completed: [...] on above: Performed By: #### 9 [id number] ####[facility] LABCLIA [id number] [place] [address] [place] 06-27-2024 Note HNO ID: [id number] Author: VASQUEZ BRUSH APRN.HEAVY DUTY MECHANIC Service: ? Author Type: Nurse Practitioner Type: Progress Notes Filed: 07/12/2024 22:37 Note Text: Subjective The patient consented to the use of Box software for draft documentation of the visit consistent with [facility]?s Notice of Privacy Practices. HPI Paul [...] [facility] 06-24-2024 Note HNO ID: [id number] Author: VASQUEZ BRUSH APRN.HEAVY DUTY MECHANIC Service: ? Author Type: Nurse Practitioner Type: Progress Notes Filed: 06/26/2024 20:27 Note Text: VIRTUAL VISIT PROGRESS NOTE This is a virtual visit using [employer] Video Visit. It required patient-provider interaction for the medical decision making as documented below. I have communicated my name and active licensure. The patient's identity and physical location were verified at the time of this visit. Either the patient or their legal national sales representative has been informed of the risks and benefits of -- and alternatives to -- treatment through a remote evaluation and consents to proceed with the evaluation remotely. Paul Davenport is a 49 year old female seen for follow-up dyspnea, chronic pain, leg edema She is still having trouble breathing Went to [facility] 06/19/24 and CXR done and it [...] included)... [facility] 06-20-[address] [facility] 06-19-[address] [facility] 06-19-[address] [facility] 06-16-[address] [facility] 05-07-[address] [facility] 04-24-[address] [facility] 04-24-[address] [facility] 04-08-[address] [facility] 02-28-2024 Note HNO ID: [id number] Author: WILLARD TY MA Service: ? Author Type: Power Grader Operator Type: Progress Notes Filed: 02/28/2024 16:42 Note [...] [facility] 02-28-2024 Note HNO ID: [id number] Author: KATIE VALVERDE APRN.ALBERTO Service: ? Author Type: Nurse Practitioner Type: Progress Notes Filed: 02/28/2024 16:42 Note Text: [facility] Today's Date: 02/28/2024 Name: Paul Davenport : [...] Motrin (Ibuprofen) Muscle Relaxants: Zanaflex (Tizanidine) Topicals: Alby-Qxz-Gurphwo (OTC) Other Prescription or OTC Pain Medications: Excedrin Opioids: None Compliance: PDMP website checked and validated on 02/28/2024 by Katie Valverde APRN.HEAVY DUTY MECHANIC All prescriptions have been APPROPRIATELY filled. No [...] Degenerative joint space narrowing bilaterally as detailed.. Plant Attendant: PEYMAN Transcribe Date/Time: Jan 20 2024 10:55A Dictated by : FER SIU MD This examination was interpre (more content not included)... [facility] 02-27-2024 Note HNO ID: [id number] Author: VASQUEZ BRUSH APRN.HEAVY DUTY MECHANIC Service: ? Author Type: Nurse Practitioner Type: Progress Notes Filed: 03/09/2024 15:50 Note Text: VIRTUAL VISIT PROGRESS NOTE This is a virtual visit using [employer] Video Visit. It required patient-provider interaction for the medical decision making as documented below. I have communicated my name and active licensure. The patient's identity and physical location were verified at the time of this visit. Either the patient or their legal national sales representative has been informed of the risks [...] a lot Had it biopsied at her credit administration officer = everything came back negative HISTORY REVIEWED [...] [facility] 02-07-2024 Note HNO ID: [id number] Author: CRYSTAL GABRIEL, DO Service: ? Author Type: Physician Type: Progress Notes Filed: 02/24/2024 07:32 Note Text: VIRTUAL VISIT PROGRESS NOTE This is a virtual visit using [employer] Video Visit. It required patient-provider interaction for the medical decision making as documented below. I have communicated my name and active licensure. The patient's identity and physical location were verified at the time of this visit. Either the patient or their legal national sales representative has been informed of the risks [...] (FLONASE) 50 mcg/actuation nasal spray Use 1 Pine Apple in each nostril once daily. Pregabalin (LYRICA) [...] [facility] Note HNO ID: [id number] Author: TERESITA LEES RT(R) Service: ? Author Type: Technologist [...] PATIENT PRESENTS WITH AN IMPLANTABLE OR ATTACHED BELLMAN CAPTAIN: No RADIOLOGY DEPARTMENT: General X-ray: Exam(s) Completed: Lower Extremity X-Ray(s): Knee, AP Only Bilateral, Right knee ap,lat,obliques, Left knee ap,lat,obliques PERIPHERAL IV DATA: Not applicable SIGNED BY: RT Tabitha(R) January 16, 2024 12:18 PM [facility] 01-16-2024 Note HNO ID: [id number] Author: VASQUEZ BRUSH APRN.HEAVY DUTY MECHANIC Service: ? Author Type: Nurse Practitioner Type: [...] (FLONASE) 50 mcg/actuation nasal spray Use 1 [place] Apple in each nostril once daily. fluticasone-salmeterol (WIXELA [...] included)... [facility] 01-08-[address] [facility] 01-08-2024 Note Patient Outreach (AG ACM) PAUL DAVENPORT ([id number]) 1975 F Date Time Provider Department 01/08/24 VASQUEZ BRUSH [facility] During your visit today, we recorded the following information about you: Allergies As of Date: 01/08/2024 Noted Allergy Reaction DUST 01/27/2009 Comments: extreme coughing, dry hives METFORMIN 04/09/2023 14 - Other: See Comments Date Reviewed: 01/05/2024 Reviewed by: Vasquez Brush APRN.HEAVY DUTY MECHANIC - Fully Assessed Visit Diagnosis:Encounter for screening mammogram for breast cancer [Z12.31] Order(s):[facility] SCREENING W SHAHID [[id number]] Order #: [id number] FUTURE Prescriptions as of 01/11/2024 - tiZANidine [...] (FLONASE) 50 mcg/actuation nasal spray Use 1 [place] Apple in each nostril once daily. - fluticasone-salmeterol [...] content not included)... [facility] 04-09-2023 Discharge summary Note Date/Time April 09, 2023 8:06pm [facility] Medical Records Department [address] [place] [address] Emergency Department Summary 04/09/23 MR#: [id number] Acct: [id number] Name: PAUL DAVENPORT Rep #:[id number] : 1975 48 From: Williams Cage MD PCP: MELANIA Whatley Status:REG ER Location: ED HPI History of [...] acuminata. She is to follow-up with her PROCESS ASSISTANT Dr. Stephanie Serrato. She also needs to [...] Clarity Clear Urine pH 5.0 Ur Specific [place] 1.025 Urine Protein Negative Urine Glucose (UA) [...] Genital Warts Primary Care Provider: Vasquez Brush INTERIOR DESIGN ASSISTANT Referrals: Stephanie Serrato NP, INTERIOR DESIGN ASSISTANT-C [Non-Staff] - 1 Week Vasquez Brush NP, INTERIOR DESIGN ASSISTANT-C [Primary Care Provider] - Disposition Disposition: Home, Self Care What to do if you have Problems For any increased pain, shortness of breath, bleeding, nausea or vomiting, chestpain, or any unexpected problems, contact your Primary Care Provider. Call [facility] ([phone]) or report to the closest Emergency Room. Call 911 if necessary. 04/09/232005 <Electronically signed by Williams Cage MD> Cosigner Signature (if applicable): CC: INTERIOR DESIGN ASSISTANT-C Vasquez Brush ~ Signed [facility] Work Phone: [phone]) 701-834307-11-2023 History of Present illness Narrative* LASHAUN Enriquez [...] stated she is currently living out of [facility] and is doing well. Screenings: Current: not able to assess Previous: 09/13/20 PHQ9 (19) GAD7 (9) Referrals made No orders of the defined types were placed in this encounter. Service Conclusion Criteria/Transition/Discharge: Client is being discharged from CM services. PM spoke to client on 08/29/2022 regarding services. Client stated she is living out of [facility] and is doing well. Her PCP is prescribing her medication and has submitted a referral for the client to get linked with psychiatry services. Participants for Today s Plan: Patient acknowledges participating, agrees with plan. No other participants Copy Provided: None / ADMINISTRATIVE: Administrative Information: Document Type: Service conclusion documented in this encounterReplaced By [facility] Work Phone: [phone]) 868-944008-12-2019 History of Past illness Narrative* Problem Noted Date Diagnosed Date Resolved Date Tobacco abuse 09/30/2018 07/30/2019 Depression 12/21/2015 07/30/2019 Mild recurrent major depression (HCC-CMS) 03/19/2015 07/30/2019 documented as of this encounter (statuses as of 08/29/2022) [facility] Work Phone: Evaluation noteNo assessment information available [facility] Work Phone: Evaluation note* Diagnosis Chest pain, unspecified type- Primary documented in this encounter [facility] Work Phone: Summary Purpose Family History No [...] Will No April 09 5:34pm Power of Electronic Scanner Operator No April 09, 2023 5:34pm Procedure Findings Note HNO ID: [id number] Author: Melquiades Houston (Fel) Service: Colorectal Author Type: Fellow Type: Brief Op Note Filed: 04/10/2018 12:46 PM Note Text: BRIEF OPERATIVE NOTE - COLORECTAL SURGERY Log ID: [id number] Surgery/Procedure Date: 04/10/2018 Incision/Procedure Start Time: 9:03 AM Incision Close/Procedure End Time: 12:30 PM Surgeon(s) and Soda Flaker(s): Surgeon(s) and Role: * Joey Pickett - [...] section and content) DATE CREATED AUTHOR 01/08/2018 [facility] DATE CREATED AUTHOR AUTHOR'S ORGANIZ ATION 01/22/2018 [facility] DATE CREATED AUTHOR AUTHOR'S ORGANIZ ATION 02/27/2018 [facility] DATE CREATED AUTHOR AUTHOR'S ORGANIZ ATION 04/15/2018 [facility] DATE CREATED AUTHOR AUTHOR'S ORGANIZ ATION 03/13/2020 [facility] DATE CREATED AUTHOR AUTHOR'S ORGANIZ ATION 05/21/[address] [facility] DATE CREATED AUTHOR AUTHOR'S ORGANIZ ATION 03/25/2022 [facility] DATE CREATED AUTHOR AUTHOR'S ORGANIZ ATION 09/12/2024 [facility] DATE CREATED AUTHOR AUTHOR'S ORGANIZ ATION 10/01/2024 [facility] DATE CREATED AUTHOR AUTHOR'S ORGANIZ ATION 10/11/2024 [facility] DATE CREATED AUTHOR AUTHOR'S ORGANIZ ATION 12/26/2024 [facility] DATE CREATED AUTHOR AUTHOR'S ORGANIZ ATION 12/28/[address] [facility] DATE CREATED AUTHOR AUTHOR'S ORGANIZ ATION 01/01/2025 [facility] <item><item> Privacy Markings (unrecogniz ed section and content) Section Author: Rcahelle Anne PROHIBITION ON REDISCLOSURE OF CONFIDENTIAL INFORMATION [...] Member Role Status Dates Vasquez Brush NP, INTERIOR DESIGN ASSISTANT-C Primary Care Provider Active Team Status: Inactive Member Role Status Dates Dr. Williams Cage MD Emergency Provider Active Vasquez Brush NP, INTERIOR DESIGN ASSISTANT-C Primary Care Provider Active Department Director Relationship Specialty Start Date End Date Generic, External Data Provider [place] [address] PCP - General 09/28/24 Goals (unrecognized section and content) Goals may be documented in a n alternate section Scheduled Active and Recently Administ ered Medications (unrecognized section and content) Medication Order 09/27/2024 09/28/2024 09/29/2024 HYDROmorphone (Dilaudid) injection 1 mg (COMPLETED) 1 mg, intravenous, Once, On Sun09/29/24 at 0320, For 1 dose 0325 (Given - Provid er: Jessica Miles, NORBERTO) iohexol (OMNIPaque) 350 mg iodine/mL solution 75 [...] mg (COMPLETED) 60 mg, intravenous, Once, On 8/11/25 at 0435, For 1 dose 0442 (Given [...] BE BASED ON THE PRIMARY CLINICAL RECORDS. [employer] [facility]. provides no warranty or guarantee of the accuracy or completeness of information in this document.
[2025-01-09 23:11] VITALS: BP 130/59; PULSE 100; RESP 27; O2SAT 94
--- NOTE | 2025-01-09 23:25 | RAD_ITS ---
PROCEDURE: CHEST PA AND LATERAL 01/09/2025 REASON FOR EXAM: DYSPNEA TECHNIQUE: Procedure Code: RADCXR Modality: DX Procedure: CHEST PA AND LATERAL COMPARISON: 10/20/2024. FINDINGS: Prior sternotomy. Valvular prosthesis is present. Hilar prominence suggestive of vascular congestion. Vascular indistinctness suggestive of edema. The heart is enlarged. No acute osseous abnormalities. RAD/Chest PA and Lateral IMPRESSION: Edema in the setting of cardiomegaly. Reading Location: [id number]
[2025-01-09 23:30] LABS: Troponin T High Sensitivity 8 ng/L (<=14)
[2025-01-09] MEDS: Ketorolac 30 MG/ML Syringe IV (23:31)
[2025-01-09 23:33] LABS: Anion Gap 11 (5-15); BUN 14 mg/dL (4-19); BUN/Creat Ratio 16.5 RATIO (10-20); Calcium,Total 9.2 mg/dL (7.6-11.0); Carbon Dioxide 30.3 mmol/L (21.0-32.0); Chloride 97 mmol/L (98-108); Estimated Creatinine Clearance 120.72 ml/min (50-250); Glucose 174 mg/dL (70-99); Magnesium 2.2 mg/dL (1.5-2.2); Potassium 4.1 mmol/L (3.3-5.1); Pro- Brain NATRIURETIC PEPTIDE 360 pg/mL (<=450)
[2025-01-10] VITALS: BP 115/78; PULSE 102; RESP 25; O2SAT 93
[2025-01-10 00:49] LABS: Troponin T High Sens 2 HR 10 ng/L (<=14)
[2025-01-10 01:15] VITALS: RESP 18
[2025-01-10 01:23] VITALS: O2SAT 97
--- NOTE | 2025-01-10 01:44 | EX.ED.DYSGE1 ---
HPI History of Present Illness Chief Complaint: Chest Pain Informant: patient Narrative Narrative: Patient is a 49-year-old female with past medical history of congestive heart failure on torsemide hypertension fibromyalgia and aortic stenosis for which she underwent a new aortic valve as well as closure of a ASD and VSD in August of this year. Patient reports over the past few days he feels like she is having increased swelling of her legs despite taking her medication and she notes generalized chest pressure/discomfort with worsening shortness of breath with ambulation. With concern this could be potential cardiac in nature or worsening of her heart failure she presents for evaluation [facility] Medical History Asthma Hypertension Migraine Bulimia Lesion of spleen Endometriosis Heart murmur Aortic stenosis Acid reflux Depression Fibromyalgia Home Medications ?Medication ?Instructions ?Recorded ?Last Taken ?Type albuterol sulfate 90 mcg/actuation 2 puff inhalation Q4H PRN PRN 08/09/23 Unknown History aerosol inhaler wheezing cholecalciferol (vitamin D3) 25 50 mcg PO DAILY 08/09/23 Unknown History mcg (1,000 unit) tablet (Vitamin D3) esomeprazole magnesium 40 mg 40 mg PO BID 08/09/23 Unknown History capsule,delayed release (Nexium) propranolol 20 mg tablet 20 mg PO TID 08/09/23 Unknown History prednisone 20 mg tablet 40 mg (2 x 20 mg) PO DAILY 5 days 06/19/24 Unknown Rx #10 tabs aripiprazole 15 mg tablet 15 mg PO DAILY 10/20/24 Unknown History fluticasone 250 mcg-salmeterol 50 1 ea inhalation BID 10/20/24 Unknown History mcg/dose blistr powdr for inhalation fluticasone propionate 50 1 spray intranasal DAILY 10/20/24 Unknown History mcg/actuation nasal spray,suspension allopurinol 100 mg tablet 100 mg PO DAILY 01/09/25 Unknown History tirzepatide 2.5 mg/0.5 mL 2.5 mg subcut QWEEK 01/09/25 Unknown History subcutaneous pen injector (Mounjaro) torsemide 20 mg tablet 40 mg PO BID 01/09/25 Unknown History Allergy/AdvReac Type Severity Reaction Status Date / Time metformin AdvReac Severe Other Verified 01/09/25 22:17 Surgical History Hx of laparoscopy Hx of ovarian cystectomy Hx of tonsillectomy Social History housing: house Smoking Status: Light Smoker (<10/day) details: Social substance use type: does not use ROS ROS ED Constitutional Constitutional ED: Denies chills or fever(s) Eyes Eyes: Denies change in vision ENT ENT ED: Denies sore throat Cardiovascular Cardiovascular: Reports chest pain; Denies palpitations or racing heartbeat Respiratory/Chest Respiratory/Chest: Reports dyspnea and dyspnea on exertion; Denies cough Gastrointestinal Gastrointestinal: Denies abdominal pain, diarrhea, nausea or vomiting Musculoskeletal Musculoskeletal: Reports other Details: Positive leg swelling ; Denies myalgias Integumentary Denies rash Neurologic Neurologic: Reports headache(s) Hematologic/Lymphatic Hematologic/Lymphatic: Denies easy bleeding or easy bruising Allergic/Immunologic Allergic/Immunologic ED: Denies mouth swelling or tongue swelling EXAM Physical Exam Const Vital Signs: 01/09/25 22:13 01/09/25 23:11 01/10/25 00:00 Temperature 98.0 F Temperature Source Oral Pulse Rate 102 H 100 102 H Respiratory Rate 18 27 H 25 H Blood Pressure 147/76 H 130/59 H 115/78 Blood Pressure Mean 99 82 90 Pulse Ox 93 94 93 Oxygen Delivery Method Room Air Room Air Room Air 01/10/25 01:15 01/10/25 01:58 Temperature 98.1 F Temperature Source Pulse Rate 101 H Respiratory Rate 18 24 H Blood Pressure 115/80 Blood Pressure Mean 91 Pulse Ox 97 Oxygen Delivery Method Positive well nourished, well developed and obese General Appearance ED: well developed; Negative for pallor Nutritional Appearance: obese HEENT HEENT Narrative: Normocephalic atraumatic Eyes PERRL and EOMs intact bilaterally General Eye ED: Negative for scleral icterus Neck supple and no JVD Chest Wall palpation of chest normal Chest Narrative: No bony deformity or subcutaneous emphysema noted Patient has a surgical scar to the anterior chest consistent with her history of aortic valve repair as well as ASD and VSD repair. The incision is clean dry and intact without secondary findings to suggest infection. Resp normal respiratory effort Resp Narrative: Breath sounds are slightly diminished throughout with faint crackles noted in the bilateral bases and diffuse expiratory wheeze consistent with history of asthma and smoking However no signs of respiratory distress Cardio regular rate and regular rhythm Rate: other Other Details: Radial and carotid pulses are equal and symmetric GI normal to inspection, nondistended, normoactive bowel sounds, non-tender, non-distended and no masses GI Narrative: No voluntary guarding or rigidity or pulsatile mass No peritoneal signs No fluid wave noted Auscultation: normoactive bowel sounds Palpation: soft Extremity Extremity Narrative: +3-4 pitting edema to the bilateral lower extremities that is equal and symmetric Negative Homans' sign bilaterally Neuro oriented x3, CN's II-XII intact bilaterally and no sensory deficits noted Sensorium / Orientation: alert Motor Exam: strength 5/5 throughout Psych mental status grossly normal Skin no rashes or lesions noted and no wounds General Skin Exam: Negative for jaundice or pallor MDM MDM MDM Narrative Medical decision making narrative: Patient arrived to the ER satting in the mid 90s on room air. She reported increased peripheral edema and chest discomfort. In order to rule out acute coronary syndrome or cardiac dysrhythmia an EKG and blood work was obtained. EKG showed mild sinus tachycardia without ischemic changes or dysrhythmia changes. Troponin was 8 and 10 going against ACS. In order to assess for worsening congestive heart failure pneumothorax or pneumonia chest x-ray was obtained. The patient's x-ray revealed changes consistent with pulmonary edema but the patient's proBNP is at baseline. The patient's hemoglobin is slightly down at 9.8 but chart review reveals that her baseline is roughly 10 and therefore she is not having symptoms secondary to acute blood loss anemia. The patient was ambulated at the end of the workup and her pulse ox was in the mid 90s the entire time. Therefore at this time as her proBNP is at baseline she is not hypoxic at rest or with ambulation and she is not having findings of ischemia based on the EKG or cardiac enzymes I do not feel there is need for admission and she is otherwise safe for discharge History & Record Review Discussion w/independent historian: Patient Lab Data Attestation: I reviewed the patient's lab results. Labs: Laboratory Results - last 24 hr 01/09/25 01/10/25 22:25 00:26 WBC 14.7 H RBC 4.38 Hgb 9.8 L Hct 34.8 L MCV 79.5 L MCH 22.4 L MCHC 28.2 L RDW Std Deviation 51.2 H RDW Coeff of Roger 18.8 H Plt Count 463 H MPV 9.9 Immature Gran % (Auto) 0.700 Neut % (Auto) 77.8 H Lymph % (Auto) 14.5 L [place] % (Auto) 5.0 Eos % (Auto) 1.6 Baso % (Auto) 0.4 Absolute Neuts (auto) 11.4 H Absolute Lymphs (auto) 2.13 Nucleated RBC % 0.4 Sodium 138 Potassium 4.1 Chloride 97 L Carbon Dioxide 30.3 Anion Gap 11 BUN 14 Creatinine 0.83 Estim Creat Clear Calc 120.72 Est GFR (MDRD) Non-Af 87 BUN/Creatinine Ratio 16.5 Glucose 174 H Calcium 9.2 Magnesium 2.2 Troponin T High Sens 8 D Troponin T Hi Sens 2 Hr 10 NT pro BNP II 360 Radiography Diagnostic Testing: Clinical Impression(s) from Imaging Studies Chest X-Ray 01/09/25 23:25 IMPRESSION: Edema in the setting of cardiomegaly. Reading Location: [address] Chest x-ray as interpreted by the emergency medicine physician reveals cardiomegaly with pulmonary vascular congestion without acute infiltrate or pneumothorax Discharge Plan Triage Chief Complaint: Chest Pain ED Provider: Cory Jackson Dx/Rx/DC Orders Clinical Impression: Nonspecific chest pain, Congestive heart failure, Hypertension, Fibromyalgia Instructions: ED Chest Pain, Uncertain Cause, Heart Failure Prescriptions: No Action prednisone 20 mg tablet 40 mg PO DAILY 5 Days Qty: 10 0RF propranolol 20 mg tablet 20 mg PO TID esomeprazole magnesium [Nexium] 40 mg capsule,delayed release(DR/EC) 40 mg PO BID albuterol sulfate 90 mcg/actuation HFA aerosol inhaler 2 puff inhalation Q4H PRN PRN (Reason: wheezing) cholecalciferol (vitamin D3) [Vitamin D3] 25 mcg (1,000 unit) tablet 50 mcg PO DAILY fluticasone propion-salmeterol 250-50 mcg/dose blister with device 1 ea inhalation BID fluticasone propionate 50 mcg/actuation spray,suspension 1 spray INTRANASAL DAILY aripiprazole 15 mg tablet 15 mg PO DAILY torsemide 20 mg tablet 40 mg PO BID Mounjaro 2.5 mg/0.5 mL pen injector 2.5 mg subcut QWEEK Rx Instructions: for 4 weeks allopurinol 100 mg tablet 100 mg PO DAILY Primary Care Provider: Yamileth Estevez NP Referrals: Yamileth Estevez NP, DIRECTOR OF CATEGORY MANAGEMENT-C [Primary Care Provider, Medical] Activity Restrictions/Additional Instructions: Your x-ray showed pulmonary vascular congestion which is consistent with your congestive heart failure. However your marker of heart failure is at your baseline and you are able to ambulate without a change to your oxygen value. Your troponins were normal and your EKG did not show signs of heart attack. Please continue all of your medications as directed by your doctor and follow-up with your family doctor and/or compliance field technician for repeat evaluation. Return to the ER should you have any further concerns Print Language: Icelandic Disposition Disposition: Home, Self Care Discharge Date/Time: 01/10/25 02:01
[2025-01-10 01:58] VITALS: BP 115/80; PULSE 101; RESP 24; TEMP 36.7; O2SAT 97
== END 2025-01-10 02:01 | disposition home or self-care (01) ==
PROVIDERS: Emergency Provider Emergency Medicine; PCP Nurse Practitioner Family; Visit Provider Emergency Medicine
DX: R07.89 Other chest pain (principal); I11.0 Hypertensive heart disease with heart failure; I50.9 Heart failure, unspecified; M79.7 Fibromyalgia; F17.200 Nicotine dependence, unspecified, uncomplicated; Z79.51 Long term (current) use of inhaled steroids; Z79.899 Other long term (current) drug therapy
CPT/HCPCS: 71046; 80048; 83735; 83880; 84484; 85025; 93005; 96374; 96375; 99283; A4216; J1938